=== PATIENT | female | born 1950 | race Caucasian/White ===

== ENCOUNTER 2016-08-12 14:33 | Emergency (ER) | payer MEDICARE, OTHER ==
[2016-08-12 15:27] VITALS: RESP 16
--- NOTE | 2016-08-12 16:09 | ED ---
Recheck HPI - General Chief Complaint: Recheck/Abnormal Lab/Rx Stated Complaint: High BP-sent by Source: patient Mode of arrival: ambulatory Limitations: no limitations - History of Present Illness Initial Comments: Patient is a pleasant 65-year-old female who presents for evaluation for high blood pressure. Past medical history as below. Patient was sent in by her primary care physician who wanted her to be evaluated for her high blood pressure. Has a known history of hypertension. Has been well-controlled in the past of 5 mg of enalapril. Has been compliant with this. The patient stated last week or 2 she's been having mild headaches. Was seen by her neurologist and cleared. Went back to her PCP for evaluation for hypertension. At home her normal blood pressures in the 160s systolic. She's been in the 180s to 200s systolic over the last few days. She doubled up on her enalapril to 10 mg daily which she has been compliant with. Today in the office she had a very elevated blood pressure. Recommended that she come in for evaluation. As of right now, the patient states that she has no complaints. She denies fever, chills, headaches, URI symptoms, lightheaded or dizziness, confusion, changes in behavior, chest pain, shortness breath, cough, nausea, vomiting, diarrhea, pain or burning with urination. - Related Data Home Medications Medication Instructions Recorded Confirmed Methadone [Dolophine] 10 mg PO DAILY 08/23/14 08/12/16 Sertraline [Zoloft] 100 mg PO DAILY 08/23/14 08/12/16 Cyclobenzaprine [Flexeril] 10 mg PO TID PRN 08/12/16 08/12/16 Flaxseed Oil [[place]-3 Flaxseed Oil] 1,000 mg PO DAILY 08/12/16 08/12/16 Lisinopril [Zestril] 10 mg PO DAILY 08/12/16 08/12/16 Melatonin (Unknown Dose) 1 tab PO HS 08/12/16 08/12/16 Omeprazole [PriLOSEC] 10 mg PO DAILY 08/12/16 08/12/16 SUMAtriptan SUCCINATE [Imitrex] 25 mg PO DAILY PRN 08/12/16 08/12/16 Allergies Allergy/AdvReac Type Severity Reaction Status Date / Time meperidine HCl [From Demerol] Allergy Rash/Hives Verified 08/12/16 14:57 Penicillins Allergy Rash/Hives Verified 08/12/16 14:57 Sulfa (Sulfonamide Allergy Rash/Hives Verified 08/12/16 14:57 Antibiotics) Review of Systems ROS Statement: Those systems with pertinent positive or pertinent negative responses have been documented in the HPI. ROS Other: All systems not noted in ROS Statement are negative. Past Medical History Past Medical History: Hypertension, Thyroid Disorder Additional Past Medical History / Comment(s): ANEMIA History of Any Multi-Drug Resistant Organisms: None Reported Past Surgical History: Hysterectomy Additional Past Surgical History / Comment(s): LEFT KNEE ARTHROSCOPIC Past Anesthesia/Blood Transfusion Reactions: No Reported Reaction Past Psychological History: No Psychological Hx Reported Smoking Status: Never smoker Past Alcohol Use History: Rare Past Drug Use History: None Reported - Past Family History Mother Family Medical History: No Reported History General Exam Limitations: no limitations General appearance: alert, in no apparent distress, other (Well-appearing and in no acute distress) Head exam: Present: atraumatic, normocephalic, normal inspection Eye exam: Present: normal appearance, PERRL, EOMI. Absent: scleral icterus, conjunctival injection, nystagmus, periorbital swelling Pupils: Present: normal accommodation. Absent: irregular, unequal ENT exam: Present: normal exam, mucous membranes moist Neck exam: Present: normal inspection. Absent: tenderness, meningismus, lymphadenopathy Respiratory exam: Present: normal lung sounds bilaterally. Absent: respiratory distress, wheezes, rales, rhonchi, stridor Cardiovascular Exam: Present: regular rate, normal rhythm, normal heart sounds. Absent: systolic murmur, diastolic murmur, rubs, gallop, clicks GI/Abdominal exam: Present: soft, normal bowel sounds, other (No abdominal bruits). Absent: distended, tenderness, guarding, rebound, rigid Extremities exam: Present: normal inspection, full ROM, normal capillary refill. Absent: tenderness, pedal edema, joint swelling, calf tenderness Back exam: Present: normal inspection Neurological exam: Present: alert, oriented X3, CN II-XII intact, other ( Cranial nerves II through XII grossly intact without focal neurological deficits. Alert and oriented 4. Moves all 4 extremities. No ataxia of the upper or lower extremities. Gait intact. 5-5 strength of the upper or lower extremities. L4 and S1 reflexes intact.) Psychiatric exam: Present: normal affect, normal mood Skin exam: Present: warm, dry, intact, normal color. Absent: rash Course Vital Signs 08/12/16 08/12/16 08/12/16 14:37 15:27 15:59 Temperature 97.6 F Pulse Rate 83 70 70 Respiratory 18 16 16 Rate Blood Pressure 211/98 199/104 187/98 O2 Sat by Pulse 98 96 96 Oximetry 08/12/16 08/12/16 16:35 16:51 Temperature Pulse Rate 67 71 Respiratory 16 16 Rate Blood Pressure 207/86 193/88 O2 Sat by Pulse 97 Oximetry Medical Decision Making - Medical Decision Making Patient presents for evaluation for asymptomatic hypertension. Initial blood pressure in the 200s systolic. She also just rode her bike here though. Will place in a dark room and recheck blood pressure and 30 minutes. 1600: Spoke with the patient's nurse practitioner. The nurse practitioner states that the patient's been having severe headaches over the past 1-2 weeks. Discussed that the patient is neurologically intact and not having a headache at this point. There is practitioner is concerned that the patient may not be telling the most accurate story. Repeat blood pressure 180 systolic. Closer to her baseline. Reevaluated the patient and she remains a symptomatically. at bedside. I discussed conversation I had with her nurse practitioner. Offered CT head without contrast. We'll order. EKG ordered as well. 1630: Reviewed EKG. Normal sinus rhythm at 68. Right bundle branch block. Left anterior fascicular block. ID [id number]. QRS 128. QTc 499. No STEMI. I reviewed the EKG that was performed on 06/09/2015. It is similar in appearance. No acute change. Awaiting CT. 1710: Reviewed CT imaging. No acute process. I reevaluated the patient's blood pressure and it is 176/82. She remains asymptomatic. Stable for discharge home. Discussed specific signs and symptoms of hypertensive emergency and when to return to the emergency department for further evaluation. She voiced understanding. She will continue to take 10 mg of enalapril. This was also confirmed by the nurse practitioner at her primary care physician's office. Discussed further signs and symptoms on when to return to emergency department for further evaluation. She is comfortable with discharge home and will follow-up with her primary care physician for blood pressure recheck. Disposition Clinical Impression: Asymptomatic hypertension Disposition: HOME SELF-CARE Condition: Good Instructions: Hypertensive Crisis (ED) Referrals: Cody Aleman MD [Primary Care Provider] - 1-2 days
--- NOTE | 2016-08-12 16:58 | CT ---
EXAMINATION TYPE: CT brain wo con DATE OF EXAM: 08/12/2016 4:55 PM COMPARISON: NONE INDICATION: Elevated blood pressure DLP: 1029.9 mGycm, Automated exposure control for dose reduction was used. CONTRAST: None CT of the brain is performed utilizing 3 mm thick sections through the posterior fossa and 3 mm thick sections through the remaining calvarium. Study is performed within 24 hours of arrival to the hosp [facility]. No abnormal hyperdensity is present to suggest an acute intracranial hemorrhage. No mass lesion is evident. No acute infarcts are evident. Periventricular white matter hypodensity is present, most likely on th e basis of chronic white matter ischemic changes. Ventricles and sulci are appropriate for the patient age. Paranasal sinuses and mastoid air cells within the [id number] are clear. There is septal deviation. IMPRESSIONS: 1. Chronic appearing white matter ischemic changes. No acute intracranial process evident.
[2016-08-12 17:13] VITALS: BP 176/82; PULSE 72; TEMP 98.1
== END 2016-08-12 17:20 | disposition home or self-care (01) ==
LOC: EC 14:33
DX: I10 Essential (primary) hypertension (principal); R51 Headache; I45.2 Bifascicular block; Z79.899 Other long term (current) drug therapy; Z88.0 Allergy status to penicillin; Z88.5 Allergy status to narcotic agent
CPT/HCPCS: 70450; 93005; 99284

== ENCOUNTER → 2017-05-03 | Outpatient (CLI) | payer MEDICARE, OTHER ==
--- NOTE | 2017-05-06 07:18 | MM ---
Reason for exam: screening (asymptomatic). Last mammogram was performed 3 years ago. History: Patient is postmenopausal. Physical Findings: A clinical breast exam by your physician is recommended on an annual basis and results should be correlated with mammographic findings. MG 3D Screening Mammo W/Cad Bilateral CC and MLO view(s) were taken. Prior study comparison: April 29, 2014, bilateral MG screening mammo w CAD. April 06, 2012, bilateral digital screening mammo w/CAD. The breast tissue is heterogeneously dense. This may lower the sensitivity of mammography. No suspicious calcifications. New nodule upper outer left breast 8cm from nipple. ASSESSMENT: Incomplete: need additional imaging evaluation, BI-RAD 0 RECOMMENDATION: Special view mammogram and ultrasound of the left breast. [facility] will attempt to contact patient to return for supplemental views and ultrasound.
== END | disposition home or self-care (01) ==
LOC: RADMAMWWP 08:34
PROVIDERS: ATTEND Obstetrics & Gynecology
DX: Z12.31 Encounter for screening mammogram for malignant neoplasm of breast (principal)
CPT/HCPCS: 77063; 77067

== ENCOUNTER → 2017-05-10 | Outpatient (CLI) | payer MEDICARE, OTHER ==
--- NOTE | 2017-05-10 09:53 | USB ---
Reason for exam: additional evaluation requested from abnormal screening. History: Patient is postmenopausal. US Breast Workup Limited LT Left breast ultrasound demonstrates no cystic or solid lesion seen. These results were verbally communicated with the patient and result sheet given to the patient on 05/10/17. ASSESSMENT: Probably benign, BI-RAD 3 RECOMMENDATION: Follow-up diagnostic mammogram of the left breast in 6 months.
--- NOTE | 2017-05-10 09:53 | MM ---
Reason for exam: additional evaluation requested from abnormal screening. Last mammogram was performed less than 1 month ago. History: Patient is postmenopausal. Physical Findings: Nurse did not find any significant physical abnormalities on exam. MG 3D Work Up W/Cad LT Spot compression CC, spot compression MLO, and LM view(s) were taken of the left breast. Prior study comparison: May 03, 2017, bilateral MG 3d screening mammo w/cad. April 29, 2014, bilateral MG screening mammo w CAD. Nodularity upper outer quadrant left breast persists. Ultrasound is recommended. These results were verbally communicated with the patient and result sheet given to the patient on 05/10/17. ASSESSMENT: Incomplete: need additional imaging evaluation, BI-RAD 0 RECOMMENDATION: Ultrasound of the left breast.
== END | disposition home or self-care (01) ==
LOC: RADMAMWWP 08:22
PROVIDERS: ATTEND Obstetrics & Gynecology
DX: R92.8 Other abnormal and inconclusive findings on diagnostic imaging of breast (principal)
CPT/HCPCS: 77065; 76642; G0279

== ENCOUNTER → 2018-04-24 | Outpatient (CLI) | payer MEDICARE, OTHER ==
--- NOTE | 2018-04-25 15:35 | MM ---
Reason for exam: additional evaluation requested from prior study. Last mammogram was performed 11 months ago. History: Patient is postmenopausal. Indicated problem(s): other indicated problem in the right breast. Physical Findings: Nurse did not find any significant physical abnormalities on exam. MG 3D Diag Mammo W/Cad LT CC and MLO view(s) were taken of the left breast. Prior study comparison: May 10, 2017, left breast MG 3d work up w/cad LT. May 03, 2017, bilateral MG 3d screening mammo w/cad. There are scattered fibroglandular densities. No new dominant lesion. Asymmetric breast tissue left upper outer quadrant stable. These results were verbally communicated with the patient and result sheet given to the patient on 04/24/18 ASSESSMENT: Negative, BI-RAD 1 RECOMMENDATION: Return to routine screening mammogram schedule for both breasts.
== END | disposition home or self-care (01) ==
LOC: RADMAMWWP 09:21
PROVIDERS: ATTEND Obstetrics & Gynecology
DX: R92.8 Other abnormal and inconclusive findings on diagnostic imaging of breast (principal)
CPT/HCPCS: 77065; G0279; 77061

== ENCOUNTER → 2018-06-05 | Outpatient (CLI) | payer MEDICARE, OTHER ==
[~2018-06-05] MED LIST: REGADENOSON 0.4 MG/5 ML SYRINGE IV ONE
--- NOTE | 2018-06-05 13:29 | EST ---
EXERCISE STRESS DATE OF SERVICE: 06/05/2018 AGE: 67 SEX: Female HT: 5'9" WT: 185 pounds PROTOCOL: Lexiscan Cardiolite STAGE: DURATION OF EXERCISE: HEART RATE REST: 77 BLOOD PRESSURE REST: 137/84 MAXIMUM HEART RATE ACHIEVED: 89 MAXIMUM BLOOD PRESSURE: 140/76 85% MPHR: 100% MPHR: METS: INDICATIONS: Chest pain. CLINICAL INFORMATION: STRESS DATA: Pretesting physical examination showed a heart rate of 77, pressure is 137/84 mmHg. Baseline EKG showed sinus mechanism with left anterior fascicular block. The 0.4 mg of Lexiscan given over 15 seconds per protocol. The max heart rate was 89 beats per minute. Maximum pressure was 140/76 mmHg. Clinically the patient did not have any symptoms of chest pain or discomfort and the EKG did not show any significant ST or T-wave abnormalities concerning for ischemia. CONCLUSION: 1. Nondiagnostic electrocardiogram stress testing in response to Lexiscan. 2. Please follow up on the Cardiolite portion on separate report from radiology department. MMODL / IJN: [id number] /
--- NOTE | 2018-06-05 14:53 | NM ---
EXAMINATION TYPE: NM stress lexiscan cardiolite DATE OF EXAM: 06/05/2018 COMPARISON: NONE HISTORY: 67-year-old female preoperative assessment, abnormal EKG. Patient with hypertension and 4 - 5 pack-year history of smoking, quit 40 years ago. TECHNIQUE: After the intravenous administration of 10.08 mCi Tc 99m Sestamibi - Cardiolite resting S PECT images acquired 45 minutes post injection. The patient received 0.4mg Lexiscan, 26.7 mCi Tc 99m Sestamibi - Stress images obtained [address] injection FINDINGS: Review of stress and rest SPECT images demonstrates fixed perfusion abnormality along the mid to apic al inferior and inferolateral wall. No distinct reversibility is seen. Gated analysis shows normal wa ll motion with an estimated left ventricular ejection fraction of 62 %. TID calculate pina 1.08, with in normal limits. IMPRESSION: Attenuation artifact versus old infarct mid to apical inferior and inferolateral wall. Clinically cor relate. No suspicious reversibility identified.
== END ==
LOC: RADNMMAIN 07:51
PROVIDERS: ATTEND Family Medicine
DX: R94.31 Abnormal electrocardiogram [ECG] [EKG] (principal)
CPT/HCPCS: 93017; 78452; A9500; J2785

== ENCOUNTER → 2020-02-26 | Outpatient (CLI) | payer MEDICARE ==
[2020-02-26 13:43] LABS: HCT 36.3 % (34.0-46.0); MCH 29.3 pg (25.0-35.0); MCV 88.9 fL (80.0-100.0); Mean Platelet Volume 8.1; Platelet Count 401 k/uL (150-450); RBC 4.08 m/uL (3.80-5.40); RDW 13.9 % (11.5-15.5); WBC 11.8 k/uL (3.8-10.6)
== END | disposition home or self-care (01) ==
LOC: LABWHC1 11:41
PROVIDERS: ATTEND Orthopaedic Surgery
DX: Z01.818 Encounter for other preprocedural examination (principal); Z01.812 Encounter for preprocedural laboratory examination
CPT/HCPCS: 36415; 85027; 87070

== ENCOUNTER 2020-03-10 09:10 | Inpatient (IN) | payer MEDICARE ==
[2020-03-10] MEDS ORDERED: HYDROcodone/APAP 5-325MG 1 EACH TAB PO STA (10:18)
[2020-03-10 10:26] LABS: Anisocytosis Slight; Hypochromasia Moderate; MCH 28.1 pg (25.0-35.0); MCHC 31.3 g/dL (31.0-37.0); MCV 89.6 fL (80.0-100.0); Platelet Count 509 k/uL (150-450); Poikilocytosis Slight; RBC 1.71 m/uL (3.80-5.40); RDW 16.1 % (11.5-15.5); WBC 10.5 k/uL (3.8-10.6)
[2020-03-10 10:32] LABS: HGB 4.8 gm/dL (11.4-16.0)
[2020-03-10 10:33] LABS: HCT 15.3 % (34.0-46.0)
[2020-03-10 10:40] LABS: Albumin 3.1 g/dL (3.5-5.0); Calcium 8.2 mg/dL (8.4-10.2); Potassium 4.8 mmol/L (3.5-5.1); Total Bilirubin 0.4 mg/dL (0.2-1.3); Total Protein 5.8 g/dL (6.3-8.2)
[2020-03-10 10:44] LABS: INR 1.1 (<1.2); Partial Thromboplastin Time 24.8 sec (22.0-30.0); Prothrombin Time 11.1 sec (9.0-12.0)
[2020-03-10 10:50] LABS: Band Neutrophils % 3 %; Eosinophils # (M) 0.21 k/uL (0-0.7); Lymphocytes # (M) 0.84 k/uL (1.0-4.8); Monocytes # (M) 0.53 k/uL (0-1.0); Neutrophils % (M) 82 %; Nucleated Red Blood Cells 0 /100 WBC (0-0); Total Cells Counted 100
[2020-03-10 10:51] LABS: Polychromasia Present
[2020-03-10] MEDS ORDERED: MORPHINE SULFATE 4 MG/ML SYRINGE IVP STA (11:20)
[2020-03-10] MEDS: SODIUM CHLORIDE 0.9% 1,000 ML IV SCH (12:08)
--- NOTE | 2020-03-10 12:31 | ED ---
Recheck HPI - General Chief Complaint: Recheck/Abnormal Lab/Rx Stated Complaint: PCP request transfusion Time Seen by Provider: 03/10/20 09:36 Source: patient Mode of arrival: wheelchair Limitations: no limitations - History of Present Illness Initial Comments: 69 female presenting for cc of low HgB--patient states that she recently started a new ferritin and has chronic anemia secondary to iron deficiency B believe. Patient states she's been following a practicing md anesthesiologist oncologist here at [facility]. Patient states they cannot figure out why her hemoglobin drops at times. She states it has been as low as 4 in the past and she has required suero sfusions. Patient states usually is able to maintain her hemoglobin with ferritin. She denies any black tarry stools abdominal plain bloody stools. She denies chest pain and does endorse dyspnea on exertion cold intolerance and feels like her heart rate is increased. Patient states he feels like this when her hemoglobin is low typically and had it checked outpatient she states she was called with a critical of 4.5 and told to come to ER. Patient states she did recently have a left knee replacement, denies any chest pain, pain with deep inspiration or increasing swelling/pain. Remaining ROS (-) - Related Data Home Medications Medication Instructions Recorded Confirmed Sertraline [Zoloft] 150 mg PO DAILY 08/23/14 03/10/20 lisinopriL [Zestril] 10 mg PO DAILY 08/12/16 03/10/20 Amitriptyline HCl [Elavil] 50 mg PO HS 03/10/20 03/10/20 Cyclobenzaprine [Flexeril] 10 mg PO TID PRN 03/10/20 03/10/20 Levothyroxine Sodium 200 mcg PO DAILY 03/10/20 03/10/20 Sennosides [Senna] 17.2 mg PO HS PRN 03/10/20 03/10/20 amLODIPine [Norvasc] 5 mg PO DAILY 03/10/20 03/10/20 rOPINIRole HCL [Requip] 1 mg PO TID 03/10/20 03/10/20 Allergies Allergy/AdvReac Type Severity Reaction Status Date / Time meperidine HCl [From Demerol] Allergy Rash/Hives Verified 03/10/20 10:33 Penicillins Allergy Rash/Hives Verified 03/10/20 10:33 Sulfa (Sulfonamide Allergy Rash/Hives Verified 03/10/20 10:33 Antibiotics) Review of Systems ROS Statement: Those systems with pertinent positive or pertinent negative responses have been documented in the HPI. ROS Other: All systems not noted in ROS Statement are negative. Past Medical History Past Medical History: Hypertension, Thyroid Disorder Additional Past Medical History / Comment(s): ANEMIA History of Any Multi-Drug Resistant Organisms: None Reported Past Surgical History: Hysterectomy, Orthopedic Surgery Additional Past Surgical History / Comment(s): LEFT KNEE ARTHROSCOPIC, carpal tunnel, left knee replacement Past Anesthesia/Blood Transfusion Reactions: No Reported Reaction Past Psychological History: No Psychological Hx Reported Smoking Status: Never smoker Past Alcohol Use History: Rare Past Drug Use History: None Reported - Past Family History Mother Family Medical History: No Reported History General Exam - General Exam Comments Initial Comments: General: The patient is awake and alert, in no distress Eye: Pupils are equal, round and reactive to light, extra-ocular movements are intact. No nystagmus. There is normal conjunctiva bilaterally. No signs of icterus. Ears, nose, mouth and throat: There are moist mucous membranes and no oral lesions. Neck: The neck is supple, there is no tenderness or JVD. Cardiovascular: There is a regular rate and rhythm. No murmur, rub or gallop is appreciated. Respiratory: Lungs are clear to auscultation, respirations are non-labored, breath sounds are equal. No wheezes, stridor, rales, or rhonchi. Gastrointestinal: Soft, non-distended, non-tender abdomen without masses or organomegaly noted. There is no rebound or guarding present. REctal: light brown stool no blood or tarry dark stools. Musculoskeletal: Normal ROM, no tenderness. Strength 5/5. Sensation intact. Pulses equal bilaterally 2+. Neurological: A&O x 3. CN II-XII intact, There are no obvious motor or sensory deficits. Coordination appears grossly intact. Speech is normal. Skin: Skin is warm and dry and no rashes or lesions are noted. Some pallor noted. Psychiatric: Cooperative, appropriate mood & affect, normal judgment. Limitations: no limitations Course Vital Signs 03/10/20 03/10/20 03/10/20 09:22 11:26 12:03 Temperature 97.8 F 98.4 F Pulse Rate 64 110 H 98 Respiratory 18 18 18 Rate Blood Pressure 100/58 112/49 113/73 O2 Sat by Pulse 97 98 98 Oximetry 03/10/20 12:13 Temperature 97.7 F Pulse Rate 100 Respiratory 18 Rate Blood Pressure 122/46 O2 Sat by Pulse 95 Oximetry Medical Decision Making - Medical Decision Making 69-year-old female presenting for transfusion low hemoglobin outpatient. No findings a physical examination suggestive GI bleed patient states she has had a low hemoglobin that was chalked up to low ferritin/iron. Patient endorses symptoms consistent wtih anemia or hgb of 4.8. Pt transfused 2 untis. will be admitted on telemetry with hematology on consultation. dr zhao agreeable to care plan. - Lab Data Result diagrams: 03/10/20 10:13 03/10/20 10:13 Lab Results 03/10/20 03/10/20 03/10/20 Range/Units 10:00 10:10 10:13 WBC 10.5 (3.8-10.6) k/uL RBC 1.71 L (3.80-5.40) m/uL Hgb 4.8 L* D (11.4-16.0) gm/dL Hct 15.3 L* (34.0-46.0) % MCV 89.6 (80.0-100.0) fL MCH 28.1 (25.0-35.0) pg MCHC 31.3 (31.0-37.0) g/dL RDW 16.1 H (11.5-15.5) % Plt Count 509 H (150-450) k/uL MPV 8.0 Neutrophils % (Manual) 82 % Band Neuts % (Manual) 3 % Lymphocytes % (Manual) 8 % Monocytes % (Manual) 5 % Eosinophils % (Manual) 2 % Neutrophils # (Manual) 8.90 H (1.3-7.7) k/uL Lymphocytes # (Manual) 0.84 L (1.0-4.8) k/uL Monocytes # (Manual) 0.53 (0-1.0) k/uL Eosinophils # (Manual) 0.21 (0-0.7) k/uL Nucleated RBCs 0 (0-0) /100 WBC Manual Slide Review Performed Polychromasia Present Hypochromasia Moderate Poikilocytosis Slight Anisocytosis Slight PT (9.0-12.0) sec INR (<1.2) APTT (22.0-30.0) sec Sodium (137-145) mmol/L Potassium (3.5-5.1) mmol/L Chloride (98-107) mmol/L Carbon Dioxide (22-30) mmol/L Anion Gap mmol/L BUN (7-17) mg/dL Creatinine (0.52-1.04) mg/dL Est GFR (CKD-EPI)AfAm (>60 ml/min/1.73 sqM) Est GFR (CKD-EPI)NonAf (>60 ml/min/1.73 sqM) Glucose (74-99) mg/dL Calcium (8.4-10.2) mg/dL Total Bilirubin (0.2-1.3) mg/dL AST (14-36) U/L ALT (4-34) U/L Alkaline Phosphatase (38-126) U/L Troponin I (0.000-0.034) ng/mL Total Protein (6.3-8.2) g/dL Albumin (3.5-5.0) g/dL Stool Occult Blood (Negative) Blood Type A Positive Blood Type Confirm A Positive Blood Type Recheck No Previous Record Bld Type Recheck Status CABO Indicated Antibody Screen NEGATIVE Crossmatch See Detail Spec Expiration Date 03/13/2020 - 230903/10/20 03/10/20 03/10/20 Range/Units 10:13 10:13 10:13 WBC (3.8-10.6) k/uL RBC (3.80-5.40) m/uL Hgb (11.4-16.0) gm/dL Hct (34.0-46.0) % MCV (80.0-100.0) fL MCH (25.0-35.0) pg MCHC (31.0-37.0) g/dL RDW (11.5-15.5) % Plt Count (150-450) k/uL MPV Neutrophils % (Manual) % Band Neuts % (Manual) % Lymphocytes % (Manual) % Monocytes % (Manual) % Eosinophils % (Manual) % Neutrophils # (Manual) (1.3-7.7) k/uL Lymphocytes # (Manual) (1.0-4.8) k/uL Monocytes # (Manual) (0-1.0) k/uL Eosinophils # (Manual) (0-0.7) k/uL Nucleated RBCs (0-0) /100 WBC Manual Slide Review Polychromasia Hypochromasia Poikilocytosis Anisocytosis PT 11.1 (9.0-12.0) sec INR 1.1 (<1.2) APTT 24.8 (22.0-30.0) sec Sodium 134 L (137-145) mmol/L Potassium 4.8 (3.5-5.1) mmol/L Chloride 103 (98-107) mmol/L Carbon Dioxide 19 L (22-30) mmol/L Anion Gap 12 mmol/L BUN 42 H (7-17) mg/dL Creatinine 0.96 (0.52-1.04) mg/dL Est GFR (CKD-EPI)AfAm 69 (>60 ml/min/1.73 sqM) Est GFR (CKD-EPI)NonAf 60 (>60 ml/min/1.73 sqM) Glucose 229 H (74-99) mg/dL Calcium 8.2 L (8.4-10.2) mg/dL Total Bilirubin 0.4 (0.2-1.3) mg/dL AST 25 (14-36) U/L ALT 17 (4-34) U/L Alkaline Phosphatase 89 (38-126) U/L Troponin I 0.015 (0.000-0.034) ng/mL Total Protein 5.8 L (6.3-8.2) g/dL Albumin 3.1 L (3.5-5.0) g/dL Stool Occult Blood (Negative) Blood Type Blood Type Confirm Blood Type Recheck Bld Type Recheck Status Antibody Screen Crossmatch Spec Expiration Date 03/10/20 Range/Units 10:13 WBC (3.8-10.6) k/uL RBC (3.80-5.40) m/uL Hgb (11.4-16.0) gm/dL Hct (34.0-46.0) % MCV (80.0-100.0) fL MCH (25.0-35.0) pg MCHC (31.0-37.0) g/dL RDW (11.5-15.5) % Plt Count (150-450) k/uL MPV Neutrophils % (Manual) % Band Neuts % (Manual) % Lymphocytes % (Manual) % Monocytes % (Manual) % Eosinophils % (Manual) % Neutrophils # (Manual) (1.3-7.7) k/uL Lymphocytes # (Manual) (1.0-4.8) k/uL Monocytes # (Manual) (0-1.0) k/uL Eosinophils # (Manual) (0-0.7) k/uL Nucleated RBCs (0-0) /100 WBC Manual Slide Review Polychromasia Hypochromasia Poikilocytosis Anisocytosis PT (9.0-12.0) sec INR (<1.2) APTT (22.0-30.0) sec Sodium (137-145) mmol/L Potassium (3.5-5.1) mmol/L Chloride (98-107) mmol/L Carbon Dioxide (22-30) mmol/L Anion Gap mmol/L BUN (7-17) mg/dL Creatinine (0.52-1.04) mg/dL Est GFR (CKD-EPI)AfAm (>60 ml/min/1.73 sqM) Est GFR (CKD-EPI)NonAf (>60 ml/min/1.73 sqM) Glucose (74-99) mg/dL Calcium (8.4-10.2) mg/dL Total Bilirubin (0.2-1.3) mg/dL AST (14-36) U/L ALT (4-34) U/L Alkaline Phosphatase (38-126) U/L Troponin I (0.000-0.034) ng/mL Total Protein (6.3-8.2) g/dL Albumin (3.5-5.0) g/dL Stool Occult Blood Positive H (Negative) Blood Type Blood Type Confirm Blood Type Recheck Bld Type Recheck Status Antibody Screen Crossmatch Spec Expiration Date Disposition Clinical Impression: Anemia, Hemoglobin low, Symptomatic anemia Disposition: ADMITTED IP TO THIS [facility] Condition: Stable Is patient prescribed a controlled substance at d/c from ED?: No Referrals: Cody Aleman MD [Primary Care Provider] - 1-2 days Time of Disposition: 12:39 Decision to Admit Reason: Admit from EC Decision Date: 03/10/20 Decision Time: 12:39
[2020-03-10] MEDS ORDERED: NALOXONE 0.4 MG/ML 1 ML VIAL IV PRN (12:36)
[2020-03-10] MEDS ORDERED: PANTOPRAZOLE 40 MG/10 ML VIAL IVP STA (12:47)
[2020-03-10] MEDS: MORPHINE SULFATE 4 MG/ML SYRINGE IVP PRN ×2 (15:39→21:49)
[2020-03-10 16:04] LABS: Ferritin 50.4 ng/mL (10.0-291.0)
[2020-03-10] MEDS ORDERED: SENNOSIDES 8.6 MG TAB PO PRN (17:43)
[2020-03-10] MEDS: LEVOTHYROXINE 100 MCG TAB PO SCH (20:04)
[2020-03-10] MEDS: AMITRIPTYLINE HCL 50 MG TAB PO SCH (20:04)
[2020-03-11] MEDS: SODIUM CHLORIDE 0.9% 1,000 ML IV SCH ×2 (03:19→19:57)
[2020-03-11] MEDS: LEVOTHYROXINE 100 MCG TAB PO SCH (06:25)
[2020-03-11] MEDS: SERTRALINE 100 MG TAB PO SCH (07:56)
[2020-03-11] MEDS: lisinopriL 10 MG TAB PO SCH (07:56)
[2020-03-11] MEDS: amLODIPine 5 MG TAB PO SCH (07:56)
[2020-03-11] MEDS: MORPHINE SULFATE 4 MG/ML SYRINGE IVP PRN ×3 (08:38→22:37)
[2020-03-11 11:05] LABS: Albumin 2.6 g/dL (3.5-5.0); Calcium 7.5 mg/dL (8.4-10.2); Potassium 4.3 mmol/L (3.5-5.1); Total Bilirubin 0.5 mg/dL (0.2-1.3); Total Protein 5.3 g/dL (6.3-8.2)
--- NOTE | 2020-03-11 11:20 | P.GSCN ---
<Ana Parks - Last Filed: 03/11/20 11:08> History of Present Illness Consult date: 03/11/20 History of present illness: CHIEF COMPLAINT: Anemia HISTORY OF PRESENT ILLNESS: This is a 69-year-old female with a known past history of chronic anemia with iron deficiency and receives iron transfusions regularly through Dr. Batres's office. Also has a history of a gastric ulcer about 5 years ago. She had a recent left total knee arthroplasty with Dr. Champion on 02/28/2020. Her preop hemoglobin on 02/26/2020 was 12.0. She presented to the emergency room today after being informed that her hemoglobin was critically low at 4.5 and needed to come into the ER. Patient reports being more short of breath, dizzy and feeling her heart race. She denies any abdominal pain. She denies any black tarry stools. Denies any bright red blood in the stools. She denies any nausea or vomiting, fever chills or sweats. In the emergency room she was found to have a hemoglobin of 4.8 and did receive 2 units of blood. Her repeat hemoglobin is pending. Her last EGD and colonoscopy were in August [address] Leiva and had shown moderate hiatal hernia and gastritis and duodenitis. Patient also reports having a capsule endoscopy. Years ago and per patient it was reported normal. Patient denies regular NSAID use. She does report taking Aleve occasionally but that had been prior to her knee surgery. She is on a full aspirin daily after her knee surgery. Other past medical history includes hysterectomy, hypertension and hypothyroidism. PAST MEDICAL HISTORY: See list. PAST SURGICAL HISTORY: See list. MEDICATIONS: See list. ALLERGIES: See list. SOCIAL HISTORY: No illicit drug use. REVIEW OF SYSTEMS: CONSTITUTIONAL: Denies fever or chills. HEENT: Denies blurred vision, vision changes, or eye pain. Denies hemoptysis CARDIOVASCULAR: Denies chest pain or pressure. RESPIRATORY: No shortness of breath. GASTROINTESTINAL: See HPI for pertinent findings HEMATOLOGIC: Denies bleeding disorders. GENITOURINARY: Denies any blood in urine or increased urinary frequency. SKIN: Denies pruitis. Denies rash. PHYSICAL EXAM: VITAL SIGNS: Reviewed GENERAL: Well-developed in no acute distress. HEENT: No sclera icterus. Extraocular movements grossly intact. Moist buccal mucosa. Head is atraumatic, normocephalic. No nasal drainage. ABDOMEN: Soft. Nontender. Nondistended. NEUROLOGIC: Alert and oriented. Cranial nerves II through XII grossly intact. LABORATORY DATA: WBC 10.5 hemoglobin 4.8 hematocrit 15.3 MCV 89.6 platelets 509 Liver enzymes normal fecal occult blood positive IMAGING: ASSESSMENT: 1. Microcytic anemia with hemoglobin of 4.8 on admission and stool for occult blood positive 2. Prior history of gastric ulcer 3. History of chronic anemia with iron deficiency and requires iron transfusions 4. Left total knee arthroplasty completed on 02/28/2020 PLAN: -Start Protonix 40 mg IV daily -Continue IV fluids -Continue to monitor hemoglobin -Further recommendations forthcoming per surgeon Thank you for this consultation Physician Assistant Foreman note has been reviewed by physician. Signing provider agrees with the documented findings, assessment, and plan of care. Past Medical History Past Medical History: Hypertension, Thyroid Disorder Additional Past Medical History / Comment(s): chronic ANEMIA- pt gets iron trans. every 8-12 weeks for over 12 years. Pt has a hx of a sm ulcer History of Any Multi-Drug Resistant Organisms: None Reported Past Surgical History: Hysterectomy, Joint Replacement, Orthopedic Surgery Additional Past Surgical History / Comment(s): LEFT KNEE ARTHROSCOPIC, carpal tunnel, left knee replacement, laser eye surgery Past Anesthesia/Blood Transfusion Reactions: No Reported Reaction Past Psychological History: No Psychological Hx Reported Smoking Status: Never smoker Past Alcohol Use History: Rare Past Drug Use History: None Reported - Past Family History Mother Family Medical History: No Reported History Medications and Allergies Home Medications Medication Instructions Recorded Confirmed Type Sertraline [Zoloft] 150 mg PO DAILY 08/23/14 03/10/20 History lisinopriL [Zestril] 10 mg PO DAILY 08/12/16 03/10/20 History Amitriptyline HCl [Elavil] 50 mg PO HS 03/10/20 03/10/20 History Cyclobenzaprine [Flexeril] 10 mg PO TID PRN 03/10/20 03/10/20 History Levothyroxine Sodium 200 mcg PO DAILY 03/10/20 03/10/20 History Sennosides [Senna] 17.2 mg PO HS PRN 03/10/20 03/10/20 History amLODIPine [Norvasc] 5 mg PO DAILY 03/10/20 03/10/20 History rOPINIRole HCL [Requip] 1 mg PO TID 03/10/20 03/10/20 History Allergies Allergy/AdvReac Type Severity Reaction Status Date / Time meperidine HCl [From Demerol] Allergy Rash/Hives Verified 03/10/20 10:33 Penicillins Allergy Rash/Hives Verified 03/10/20 10:33 Sulfa (Sulfonamide Allergy Rash/Hives Verified 03/10/20 10:33 Antibiotics) Surgical - Exam Vital Signs Temp Pulse Resp BP Pulse Ox 97.8 F 64 18 100/58 97 03/10/20 09:22 03/10/20 09:22 03/10/20 09:22 03/10/20 09:22 03/10/20 09:22 Results - Labs 03/10/20 10:13 03/11/20 09:43 Abnormal Lab Results - Last 24 Hours (Table) 03/10/20 03/10/20 03/11/20 Range/Units 10:10 10:13 09:43 Sodium 133 L (137-145) mmol/L Carbon Dioxide 18 L (22-30) mmol/L BUN 34 H (7-17) mg/dL Glucose 161 H (74-99) mg/dL Calcium 7.5 L (8.4-10.2) mg/dL Total Protein 5.3 L (6.3-8.2) g/dL Albumin 2.6 L (3.5-5.0) g/dL Stool Occult Blood Positive H (Negative) Crossmatch See Detail Diabetes panel 03/11/20 Range/Units 09:43 Sodium 133 L (137-145) mmol/L Potassium 4.3 (3.5-5.1) mmol/L Chloride 106 (98-107) mmol/L Carbon Dioxide 18 L (22-30) mmol/L BUN 34 H (7-17) mg/dL Creatinine 0.87 (0.52-1.04) mg/dL Glucose 161 H (74-99) mg/dL Calcium 7.5 L (8.4-10.2) mg/dL AST 24 (14-36) U/L ALT 14 (4-34) U/L Alkaline Phosphatase 78 (38-126) U/L Total Protein 5.3 L (6.3-8.2) g/dL Albumin 2.6 L (3.5-5.0) g/dL Calcium panel 03/11/20 Range/Units 09:43 Calcium 7.5 L (8.4-10.2) mg/dL Albumin 2.6 L (3.5-5.0) g/dL Pituitary panel 03/11/20 Range/Units 09:43 Sodium 133 L (137-145) mmol/L Potassium 4.3 (3.5-5.1) mmol/L Chloride 106 (98-107) mmol/L Carbon Dioxide 18 L (22-30) mmol/L BUN 34 H (7-17) mg/dL Creatinine 0.87 (0.52-1.04) mg/dL Glucose 161 H (74-99) mg/dL Calcium 7.5 L (8.4-10.2) mg/dL Adrenal panel 03/11/20 Range/Units 09:43 Sodium 133 L (137-145) mmol/L Potassium 4.3 (3.5-5.1) mmol/L Chloride 106 (98-107) mmol/L Carbon Dioxide 18 L (22-30) mmol/L BUN 34 H (7-17) mg/dL Creatinine 0.87 (0.52-1.04) mg/dL Glucose 161 H (74-99) mg/dL Calcium 7.5 L (8.4-10.2) mg/dL Total Bilirubin 0.5 (0.2-1.3) mg/dL AST 24 (14-36) U/L ALT 14 (4-34) U/L Alkaline Phosphatase 78 (38-126) U/L Total Protein 5.3 L (6.3-8.2) g/dL Albumin 2.6 L (3.5-5.0) g/dL <William Henry - Last Filed: 03/11/20 11:52> History of Present Illness History of present illness: As above. Patient with significant anemia which is acute on chronic. Guaiac positive stools suggest GI source to a certain degree. Options of upper endoscopy tomorrow versus as an outpatient reviewed. She would prefer to have this performed as an outpatient is not unreasonable. I will have her scheduled in the next 1-2 weeks. Discharge home on antiacid therapy for possible peptic ulcer disease. We'll reevaluate tomorrow. Surgical - Exam Vital Signs Temp Pulse Resp BP Pulse Ox 97.8 F 64 18 100/58 97 03/10/20 09:22 03/10/20 09:22 03/10/20 09:22 03/10/20 09:22 03/10/20 09:22 Results - Labs 03/11/20 09:43 03/11/20 09:43 Abnormal Lab Results - Last 24 Hours (Table) 03/10/20 03/10/20 03/11/20 Range/Units 10:10 10:13 09:43 WBC 11.0 H (3.8-10.6) k/uL RBC 2.04 L (3.80-5.40) m/uL Hgb 5.8 L* (11.4-16.0) gm/dL Hct 18.2 L* (34.0-46.0) % Sodium (137-145) mmol/L Carbon Dioxide (22-30) mmol/L BUN (7-17) mg/dL Glucose (74-99) mg/dL Calcium (8.4-10.2) mg/dL Total Protein (6.3-8.2) g/dL Albumin (3.5-5.0) g/dL Stool Occult Blood Positive H (Negative) Crossmatch See Detail 03/11/20 Range/Units 09:43 WBC (3.8-10.6) k/uL RBC (3.80-5.40) m/uL Hgb (11.4-16.0) gm/dL Hct (34.0-46.0) % Sodium 133 L (137-145) mmol/L Carbon Dioxide 18 L (22-30) mmol/L BUN 34 H (7-17) mg/dL Glucose 161 H (74-99) mg/dL Calcium 7.5 L (8.4-10.2) mg/dL Total Protein 5.3 L (6.3-8.2) g/dL Albumin 2.6 L (3.5-5.0) g/dL Stool Occult Blood (Negative) Crossmatch Diabetes panel 03/11/20 Range/Units 09:43 Sodium 133 L (137-145) mmol/L Potassium 4.3 (3.5-5.1) mmol/L Chloride 106 (98-107) mmol/L Carbon Dioxide 18 L (22-30) mmol/L BUN 34 H (7-17) mg/dL Creatinine 0.87 (0.52-1.04) mg/dL Glucose 161 H (74-99) mg/dL Calcium 7.5 L (8.4-10.2) mg/dL AST 24 (14-36) U/L ALT 14 (4-34) U/L Alkaline Phosphatase 78 (38-126) U/L Total Protein 5.3 L (6.3-8.2) g/dL Albumin 2.6 L (3.5-5.0) g/dL Calcium panel 03/11/20 Range/Units 09:43 Calcium 7.5 L (8.4-10.2) mg/dL Albumin 2.6 L (3.5-5.0) g/dL Pituitary panel 03/11/20 Range/Units 09:43 Sodium 133 L (137-145) mmol/L Potassium 4.3 (3.5-5.1) mmol/L Chloride 106 (98-107) mmol/L Carbon Dioxide 18 L (22-30) mmol/L BUN 34 H (7-17) mg/dL Creatinine 0.87 (0.52-1.04) mg/dL Glucose 161 H (74-99) mg/dL Calcium 7.5 L (8.4-10.2) mg/dL Adrenal panel 03/11/20 Range/Units 09:43 Sodium 133 L (137-145) mmol/L Potassium 4.3 (3.5-5.1) mmol/L Chloride 106 (98-107) mmol/L Carbon Dioxide 18 L (22-30) mmol/L BUN 34 H (7-17) mg/dL Creatinine 0.87 (0.52-1.04) mg/dL Glucose 161 H (74-99) mg/dL Calcium 7.5 L (8.4-10.2) mg/dL Total Bilirubin 0.5 (0.2-1.3) mg/dL AST 24 (14-36) U/L ALT 14 (4-34) U/L Alkaline Phosphatase 78 (38-126) U/L Total Protein 5.3 L (6.3-8.2) g/dL Albumin 2.6 L (3.5-5.0) g/dL
[2020-03-11 11:26] LABS: Hypochromasia Moderate; MCH 28.4 pg (25.0-35.0); MCHC 31.8 g/dL (31.0-37.0); MCV 89.2 fL (80.0-100.0); Mean Platelet Volume 7.8; Platelet Count 393 k/uL (150-450); Poikilocytosis Moderate; RBC 2.04 m/uL (3.80-5.40); RDW 15.4 % (11.5-15.5)
[2020-03-11 11:28] LABS: HGB 5.8 gm/dL (11.4-16.0)
[2020-03-11 11:29] LABS: HCT 18.2 % (34.0-46.0)
[2020-03-11 12:50] LABS: Band Neutrophils % 1 %; Eosinophils # (M) 0.33 k/uL (0-0.7); Metamyelocytes # (M) 0.11 k/uL (0); Metamyelocytes % 1 %; Monocytes # (M) 0.55 k/uL (0-1.0); Neutrophils % (M) 84 %; Nucleated Red Blood Cells 1 /100 WBC (0-0); Total Cells Counted 200
[2020-03-11 12:51] LABS: Lymphocytes # (M) 0.76 k/uL (1.0-4.8); WBC 10.9 k/uL (3.8-10.6)
[2020-03-11 12:52] LABS: Polychromasia Present
--- NOTE | 2020-03-11 13:18 | P.HPIM ---
History of Present Illness H&P Date: 03/11/20 Chief Complaint: Anemia This is a history of physical and a 69-year-old whitof recurrent anemia. Elucidation of this anemia is unknown however, because transfused 2 units and has not had guaiac positive stool. She is admitted For appropriate transfusion and treatment. She otherwise has an underlying history of Hypertension and hypothyroidism. Review of Systems Constitutional: Reports fatigue Eyes: denies blurred vision, denies pain Ears, nose, mouth and throat: Denies headache, Denies sore throat Respiratory: Denies cough Gastrointestinal: Denies abdominal pain, Denies diarrhea, Denies nausea, Denies vomiting Past Medical History Past Medical History: Hypertension, Thyroid Disorder Additional Past Medical History / Comment(s): chronic ANEMIA- pt gets iron trans. every 8-12 weeks for over 12 years. Pt has a hx of a sm ulcer History of Any Multi-Drug Resistant Organisms: None Reported Past Surgical History: Hysterectomy, Joint Replacement, Orthopedic Surgery Additional Past Surgical History / Comment(s): LEFT KNEE ARTHROSCOPIC, carpal tunnel, left knee replacement, laser eye surgery Past Anesthesia/Blood Transfusion Reactions: No Reported Reaction Past Psychological History: No Psychological Hx Reported Smoking Status: Never smoker Past Alcohol Use History: Rare Past Drug Use History: None Reported - Past Family History Mother Family Medical History: No Reported History Medications and Allergies Home Medications Medication Instructions Recorded Confirmed Type Sertraline [Zoloft] 150 mg PO DAILY 08/23/14 03/10/20 History lisinopriL [Zestril] 10 mg PO DAILY 08/12/16 03/10/20 History Amitriptyline HCl [Elavil] 50 mg PO HS 03/10/20 03/10/20 History Cyclobenzaprine [Flexeril] 10 mg PO TID PRN 03/10/20 03/10/20 History RX: Levothyroxine Sodium 200 mcg PO DAILY 03/10/20 03/10/20 History RX: rOPINIRole HCL [Requip] 1 mg PO TID 03/10/20 03/10/20 History Sennosides [Senna] 17.2 mg PO HS PRN 03/10/20 03/10/20 History amLODIPine [Norvasc] 5 mg PO DAILY 03/10/20 03/10/20 History RX: Omeprazole [PriLOSEC] 20 mg PO AC-BRKT #90 cap 03/11/20 Rx Allergies Allergy/AdvReac Type Severity Reaction Status Date / Time meperidine HCl [From Demerol] Allergy Rash/Hives Verified 03/10/20 10:33 Penicillins Allergy Rash/Hives Verified 03/10/20 10:33 Sulfa (Sulfonamide Allergy Rash/Hives Verified 03/10/20 10:33 Antibiotics) Physical Exam Vitals: Vital Signs Temp Pulse Pulse Resp BP BP Pulse Ox 03/11/20 13:09 81 16 103/61 97 03/11/20 12:00 81 16 103/61 97 03/11/20 08:00 97 16 128/85 97 03/11/20 04:00 97.7 F 91 16 113/57 96 03/11/20 00:00 98.4 F 92 16 110/77 97 03/10/20 22:00 97.9 F 98 16 114/68 03/10/20 20:00 97.9 F 103 H 16 120/59 99 03/10/20 19:12 97.8 F 103 H 16 120/59 03/10/20 18:42 92 16 131/58 03/10/20 18:32 98.6 F 96 98 H 125/68 03/10/20 16:00 95 18 118/69 95 03/10/20 14:09 98.6 F 98 18 140/53 97 03/10/20 13:41 98.6 F 100 18 128/54 99 Intake and Output 03/10/20 03/11/20 03/11/20 22:59 06:59 14:59 Intake Total 310 525 125 Balance 310 525 125 Intake: Intake, IV Titration 525 Amount Sodium Chloride 0.9% 1, 525 000 ml @ 75 mls/hr IV . [id number] [facility] Rx#:[id number] Oral 125 Blood Product 310 Rc As-1 Unit 310 [id number] Other: # Voids 1 Weight 84.4 kg - Constitutional General appearance: no acute distress - EENT Eyes: EOMI - Neck Neck: no lymphadenopathy - Respiratory Respiratory: bilateral: CTA - Cardiovascular Rhythm: regular Heart sounds: normal: S1, S2 Abnormal Heart Sounds: no S3 Gallop - Gastrointestinal General gastrointestinal: soft, no tenderness - Integumentary Integumentary: no cellulitis - Musculoskeletal Musculoskeletal: generalized weakness - Psychiatric Psychiatric: A&O x's 3, no appropriate affect Results CBC & Chem 7: 03/11/20 09:43 03/11/20 09:43 Labs: Abnormal Lab Results - Last 24 Hours (Table) 03/10/20 03/11/20 03/11/20 Range/Units 10:10 09:43 09:43 WBC 10.9 H (3.8-10.6) k/uL RBC 2.04 L (3.80-5.40) m/uL Hgb 5.8 L* (11.4-16.0) gm/dL Hct 18.2 L* (34.0-46.0) % Neutrophils # (Manual) 9.20 H (1.3-7.7) k/uL Lymphocytes # (Manual) 0.76 L (1.0-4.8) k/uL Metamyelocytes # (Man) 0.11 H (0) k/uL Nucleated RBCs 1 H (0-0) /100 WBC Sodium 133 L (137-145) mmol/L Carbon Dioxide 18 L (22-30) mmol/L BUN 34 H (7-17) mg/dL Glucose 161 H (74-99) mg/dL Calcium 7.5 L (8.4-10.2) mg/dL Total Protein 5.3 L (6.3-8.2) g/dL Albumin 2.6 L (3.5-5.0) g/dL Crossmatch See Detail Thrombosis Risk Factor Assmnt - Choose All That Apply Any of the Below Risk Factors Present?: Yes Each Factor Represents 1 point: Obesity (BMI >25) Other Risk Factors: Yes Each Risk Factor Represents 2 Points: Age 61-74 years, Major surgery Other congenital or acquired thrombophilia - If yes, enter type in comment: No Thrombosis Risk Factor Assessment Total Risk Factor Score: 5 Thrombosis Risk Factor Assessment Level: High Risk Assessment and Plan (1) Hypertension Current Visit: Yes Status: Acute Code(s): I10 - ESSENTIAL (PRIMARY) HYPERTENSION SNOMED Code(s): 34726509 (2) Anemia Current Visit: Yes Status: Acute Code(s): D64.9 - ANEMIA, UNSPECIFIED SNOMED Code(s): 700721425 (3) Symptomatic anemia Current Visit: Yes Status: Acute Code(s): D64.9 - ANEMIA, UNSPECIFIED SNOMED Code(s): 756199342 Plan: We will go ahead and repeat CBC and CMP in a.m. Given her positive guaiac stool, we will go ahead and. Consult hematology given previous history. Reconcile medications. Increase diet. Prognosis is guarded. Time with Patient: Greater than 30
--- NOTE | 2020-03-11 16:03 | P.CONS ---
History of Present Illness - Reason for Consult Consult date: 03/11/20 anemia Requesting physician: Liss Santiago - Chief Complaint anemia, needing transfusion - History of Present Illness Mrs. Jalloh is a very pleasant female patient who is been seeing Dr. Batres for many years. She was found to have progressive anemia, she was given parenteral iron back in 2013 with improvement in her symptoms as well as her hemoglobin. She had EGD and colonoscopy, duodenal ulcer was not actively bleeding, no other pathology on work up. 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 She has received parenteral iron numerous times over the years. She had lt knee arthoplasty last year. Had rt knee done 02/27. She states she was sent home on 2 full dose asa twice a day as antiplatelet therapy post op. She had a lab draw yesterday at the [facility]. Was sent in for very low Hgb, 4.8 on admit. She is being transfused. She has no acute c/o on a 10 point ROS, denies any bleeding or unusual bruising. Review of Systems 10 point ROS is negative except as stated in HPI Past Medical History Past Medical History: Hypertension, Thyroid Disorder Additional Past Medical History / Comment(s): chronic ANEMIA- pt gets iron trans. every 8-12 weeks for over 12 years. Pt has a hx of a sm ulcer History of Any Multi-Drug Resistant Organisms: None Reported Past Surgical History: Hysterectomy, Joint Replacement, Orthopedic Surgery Additional Past Surgical History / Comment(s): LEFT KNEE ARTHROSCOPIC, carpal tunnel, left knee replacement, laser eye surgery Past Anesthesia/Blood Transfusion Reactions: No Reported Reaction Past Psychological History: No Psychological Hx Reported Smoking Status: Never smoker Past Alcohol Use History: Rare Past Drug Use History: None Reported - Past Family History Mother Family Medical History: No Reported History Medications and Allergies Home Medications Medication Instructions Recorded Confirmed Type Sertraline [Zoloft] 150 mg PO DAILY 08/23/14 03/10/20 History lisinopriL [Zestril] 10 mg PO DAILY 08/12/16 03/10/20 History Amitriptyline HCl [Elavil] 50 mg PO HS 03/10/20 03/10/20 History Cyclobenzaprine [Flexeril] 10 mg PO TID PRN 03/10/20 03/10/20 History Levothyroxine Sodium 200 mcg PO DAILY 03/10/20 03/10/20 History Sennosides [Senna] 17.2 mg PO HS PRN 03/10/20 03/10/20 History amLODIPine [Norvasc] 5 mg PO DAILY 03/10/20 03/10/20 History rOPINIRole HCL [Requip] 1 mg PO TID 03/10/20 03/10/20 History Omeprazole [PriLOSEC] 20 mg PO AC-BRKT #90 cap 03/11/20 Rx Allergies Allergy/AdvReac Type Severity Reaction Status Date / Time meperidine HCl [From Demerol] Allergy Rash/Hives Verified 03/10/20 10:33 Penicillins Allergy Rash/Hives Verified 03/10/20 10:33 Sulfa (Sulfonamide Allergy Rash/Hives Verified 03/10/20 10:33 Antibiotics) Physical Exam Vitals: Vital Signs Temp Pulse Pulse Resp BP BP Pulse Ox 03/11/20 04:00 97.7 F 91 16 113/57 96 03/11/20 00:00 98.4 F 92 16 110/77 97 03/10/20 22:00 97.9 F 98 16 114/68 03/10/20 20:00 97.9 F 103 H 16 120/59 99 03/10/20 19:12 97.8 F 103 H 16 120/59 03/10/20 18:42 92 16 131/58 03/10/20 18:32 98.6 F 96 98 H 125/68 03/10/20 16:00 95 18 118/69 95 03/10/20 14:09 98.6 F 98 18 140/53 97 03/10/20 13:41 98.6 F 100 18 128/54 99 03/10/20 12:43 98.3 F 98 18 105/61 99 03/10/20 12:13 97.7 F 100 18 122/46 95 03/10/20 12:03 98.4 F 98 18 113/73 98 03/10/20 11:26 110 H 18 112/49 98 03/10/20 09:22 97.8 F 64 18 100/58 97 Intake and Output 03/10/20 03/11/20 03/11/20 22:59 06:59 14:59 Intake Total 310 525 Balance 310 525 Intake: Intake, IV Titration 525 Amount Sodium Chloride 0.9% 1, 525 000 ml @ 75 mls/hr IV . [id number] [facility] Rx#:[id number] Blood Product 310 Rc As-1 Unit 310 [id number] Other: # Voids 1 Weight 84.4 kg - Constitutional General appearance: average body habitus, cooperative, no acute distress - EENT Eyes: anicteric sclerae, EOMI ENT: hearing grossly normal, normal oropharynx - Neck Neck: no lymphadenopathy - Respiratory Respiratory: bilateral: CTA - Cardiovascular Rhythm: regular Heart sounds: normal: S1, S2 Abnormal Heart Sounds: no systolic murmur, no diastolic murmur, no rub, no S3 Gallop, no S4 Gallop, no click, no other leg Peripheral Edema: bilateral: None - Gastrointestinal General gastrointestinal: no absent bowel sounds, no decreased bowel sounds, no distended, no hepatomegaly, no hyperactive bowel sounds, normal bowel sounds, no organomegaly, no rigid, no scaphoid, soft, no splenomegaly, no tenderness, no umbilical hernia, no ventral hernia - Integumentary Integumentary: normal turgor, pale - Neurologic Neurologic: CNII-XII intact - Musculoskeletal Musculoskeletal: strength equal bilaterally - Psychiatric Psychiatric: A&O x's 3, appropriate affect, intact judgment & insight Results CBC & Chem 7: 03/11/20 09:43 03/11/20 09:43 Labs: Abnormal Lab Results - Last 24 Hours (Table) 03/10/20 03/10/20 03/10/20 Range/Units 10:10 10:13 10:13 RBC 1.71 L (3.80-5.40) m/uL Hgb 4.8 L* D (11.4-16.0) gm/dL Hct 15.3 L* (34.0-46.0) % RDW 16.1 H (11.5-15.5) % Plt Count 509 H (150-450) k/uL Neutrophils # (Manual) 8.90 H (1.3-7.7) k/uL Lymphocytes # (Manual) 0.84 L (1.0-4.8) k/uL Sodium 134 L (137-145) mmol/L Carbon Dioxide 19 L (22-30) mmol/L BUN 42 H (7-17) mg/dL Glucose 229 H (74-99) mg/dL Calcium 8.2 L (8.4-10.2) mg/dL Total Protein 5.8 L (6.3-8.2) g/dL Albumin 3.1 L (3.5-5.0) g/dL Stool Occult Blood (Negative) Crossmatch See Detail 03/10/20 Range/Units 10:13 RBC (3.80-5.40) m/uL Hgb (11.4-16.0) gm/dL Hct (34.0-46.0) % RDW (11.5-15.5) % Plt Count (150-450) k/uL Neutrophils # (Manual) (1.3-7.7) k/uL Lymphocytes # (Manual) (1.0-4.8) k/uL Sodium (137-145) mmol/L Carbon Dioxide (22-30) mmol/L BUN (7-17) mg/dL Glucose (74-99) mg/dL Calcium (8.4-10.2) mg/dL Total Protein (6.3-8.2) g/dL Albumin (3.5-5.0) g/dL Stool Occult Blood Positive H (Negative) Crossmatch Assessment and Plan (1) Iron deficiency anemia due to chronic blood loss Current Visit: Yes Status: Acute Priority: High Code(s): D50.0 - IRON DEFICIENCY ANEMIA SECONDARY TO BLOOD LOSS (CHRONIC) SNOMED Code(s): 983007798 (2) Symptomatic anemia Current Visit: Yes Status: Acute Priority: High Code(s): D64.9 - ANEMIA, UNSPECIFIED SNOMED Code(s): 527373871 Plan: Agree with transfusions. Goal is to get patient's hemoglobin close to 7. Low ferritin on admission,will order parenteral iron to be given. Agree with endoscopy. After procedures would want patient to resume aspirin as anti-coagulation therapy postoperatively because, if patient gets a blood clot then she will be on longer term anticoagulation which is certainly more risky. We will discuss with Orthopedics to see if the dose of aspirin can safely be reduced from 2 full dose asa twice a day to maybe 1 full dose asa BID. Attests: I have performed H&P and developed impression and plan of care of patient, discussed with dictator. I agree with dictated note, documented as a scribe.
[2020-03-11] MEDS: PANTOPRAZOLE 40 MG/10 ML VIAL IVP SCH (19:58)
[2020-03-11] MEDS: AMITRIPTYLINE HCL 50 MG TAB PO SCH (22:36)
[2020-03-12] MEDS: SODIUM CHLORIDE 0.9% 1,000 ML IV SCH (03:17)
[2020-03-12 03:21] VITALS: RESP 16
[2020-03-12] MEDS: LEVOTHYROXINE 100 MCG TAB PO SCH (05:24)
[2020-03-12] MEDS: MORPHINE SULFATE 4 MG/ML SYRINGE IVP PRN (05:49)
[2020-03-12] MEDS: lisinopriL 10 MG TAB PO SCH (08:32)
[2020-03-12] MEDS: SERTRALINE 100 MG TAB PO SCH (08:32)
[2020-03-12] MEDS: PANTOPRAZOLE 40 MG/10 ML VIAL IVP SCH (08:32)
[2020-03-12] MEDS: amLODIPine 5 MG TAB PO SCH (08:33)
[2020-03-12 09:53] VITALS: TEMP 98.6
[2020-03-12 11:09] LABS: Hypochromasia Slight; MCH 28.6 pg (25.0-35.0); MCHC 31.9 g/dL (31.0-37.0); MCV 89.8 fL (80.0-100.0); Mean Platelet Volume 7.7; Platelet Count 417 k/uL (150-450); Poikilocytosis Moderate; RBC 2.56 m/uL (3.80-5.40); RDW 15.4 % (11.5-15.5); WBC 12.8 k/uL (3.8-10.6)
[2020-03-12 11:14] LABS: HGB 7.3 gm/dL (11.4-16.0)
--- NOTE | 2020-03-12 11:15 | P.PN ---
<Ana Parks - Last Filed: 03/12/20 11:05> Subjective Progress Note Date: 03/12/20 CHIEF COMPLAINT: Anemia HISTORY OF PRESENT ILLNESS: Patient has been followed in regards to her anemia. No active signs of bleeding. Denies any abdominal pain. Denies any nausea or vomiting. Tolerating regular diet. She did receive an additional 2 units of blood yesterday for hemoglobin of 5.8. Today's CBC is pending. Patient reports she is feeling better. Denies any shortness of breath or dizziness. Afebrile. PHYSICAL EXAM: VITAL SIGNS: Reviewed. GENERAL: Well-developed in no acute distress. HEENT: No sclera icterus. Extraocular movements grossly intact. Moist buccal mucosa. Head is atraumatic, normocephalic. ABDOMEN: Soft. Nondistended. Nontender. NEUROLOGIC: Alert and oriented. Cranial nerves II through XII grossly intact. ASSESSMENT: 1. Acute on chronic anemia with positive fecal occult blood which is suggestive of GI source. Patient would prefer to have upper endoscopy completed as an outpatient. 2. Symptomatic anemia 3. Prior history of gastric ulcer 4. History of chronic anemia with iron deficiency and requires iron transfusions 5. Left total knee arthroplasty completed on 02/28/2020 PLAN: -Continue to monitor hemoglobin. Today's hemoglobin is pending -Continue PPI and continue PPI after discharge for possible peptic ulcer disease -Planning for outpatient upper endoscopy within the next [address] Henry Physician Tonger note has been reviewed by physician. Signing provider agrees with the documented findings, assessment, and plan of care. Objective - Vital Signs Vital signs: Vital Signs Temp 98.6 F 03/12/20 08:00 Pulse 90 03/12/20 08:00 Resp 16 03/12/20 08:00 BP 119/67 03/12/20 08:00 Pulse Ox 98 03/12/20 08:00 Intake & Output 03/11/20 03/12/20 03/12/20 18:59 06:59 18:59 Intake Total 850 1994 240 Balance 850 1994 240 Weight 86.5 kg Intake: Intake, IV Titration 450 525 Amount Sodium Chloride 0.9% 1, 450 525 000 ml @ 75 mls/hr IV . [id number] [facility] Rx#:[id number] Oral 400 600 240 Blood Product 0 870 Rc As-1 Unit 0 250 [id number] Rc As-1 Unit 310 [id number] Other: # Voids 4 - Labs CBC & Chem 7: 03/11/20 09:43 03/11/20 09:43 Labs: Abnormal Lab Results - Last 24 Hours (Table) 03/10/20 03/11/20 03/11/20 Range/Units 10:10 09:43 09:43 WBC 10.9 H (3.8-10.6) k/uL RBC 2.04 L (3.80-5.40) m/uL Hgb 5.8 L* (11.4-16.0) gm/dL Hct 18.2 L* (34.0-46.0) % Neutrophils # (Manual) 9.20 H (1.3-7.7) k/uL Lymphocytes # (Manual) 0.76 L (1.0-4.8) k/uL Metamyelocytes # (Man) 0.11 H (0) k/uL Nucleated RBCs 1 H (0-0) /100 WBC Sodium 133 L (137-145) mmol/L Carbon Dioxide 18 L (22-30) mmol/L BUN 34 H (7-17) mg/dL Glucose 161 H (74-99) mg/dL Calcium 7.5 L (8.4-10.2) mg/dL Total Protein 5.3 L (6.3-8.2) g/dL Albumin 2.6 L (3.5-5.0) g/dL Crossmatch See Detail <William Henry - Last Filed: 03/12/20 12:26> Subjective As above. No active bleeding at this time. Patient's symptoms have improved. Plan outpatient upper and lower endoscopy. Continue antiacids post discharge. Objective - Vital Signs Vital signs: Vital Signs Temp 98.6 F 03/12/20 08:00 Pulse 90 03/12/20 08:00 Resp 16 03/12/20 08:00 BP 119/67 03/12/20 08:00 Pulse Ox 98 03/12/20 08:00 Intake & Output 03/11/20 03/12/20 03/12/20 18:59 06:59 18:59 Intake Total 850 1994 240 Balance 850 1994 240 Weight 86.5 kg Intake: Intake, IV Titration 450 525 Amount Sodium Chloride 0.9% 1, 450 525 000 ml @ 75 mls/hr IV . [id number] [facility] Rx#:[id number] Oral 400 600 240 Blood Product 0 870 Rc As-1 Unit 0 250 [id number] Rc As-1 Unit 310 [id number] Other: # Voids 4 - Labs CBC & Chem 7: 03/12/20 10:29 03/12/20 10:29 Labs: Abnormal Lab Results - Last 24 Hours (Table) 03/10/20 03/11/20 03/12/20 Range/Units 10:10 09:43 10:29 WBC 10.9 H 12.8 H (3.8-10.6) k/uL RBC 2.56 L (3.80-5.40) m/uL Hgb 7.3 L D (11.4-16.0) gm/dL Hct 23.0 L (34.0-46.0) % Neutrophils # (Manual) 9.20 H (1.3-7.7) k/uL Lymphocytes # (Manual) 0.76 L (1.0-4.8) k/uL Metamyelocytes # (Man) 0.11 H (0) k/uL Nucleated RBCs 1 H (0-0) /100 WBC Sodium (137-145) mmol/L Carbon Dioxide (22-30) mmol/L BUN (7-17) mg/dL Glucose (74-99) mg/dL Calcium (8.4-10.2) mg/dL Total Protein (6.3-8.2) g/dL Albumin (3.5-5.0) g/dL Crossmatch See Detail 03/12/20 Range/Units 10:29 WBC (3.8-10.6) k/uL RBC (3.80-5.40) m/uL Hgb (11.4-16.0) gm/dL Hct (34.0-46.0) % Neutrophils # (Manual) (1.3-7.7) k/uL Lymphocytes # (Manual) (1.0-4.8) k/uL Metamyelocytes # (Man) (0) k/uL Nucleated RBCs (0-0) /100 WBC Sodium 131 L (137-145) mmol/L Carbon Dioxide 21 L (22-30) mmol/L BUN 24 H (7-17) mg/dL Glucose 163 H (74-99) mg/dL Calcium 7.5 L (8.4-10.2) mg/dL Total Protein 5.2 L (6.3-8.2) g/dL Albumin 2.6 L (3.5-5.0) g/dL Crossmatch
--- NOTE | 2020-03-12 11:28 | P.PN ---
Subjective Progress Note Date: 03/12/20 Principal diagnosis: severe anemia In follow-up today patient is denying any bleeding. She feels pretty well. She is getting around fairly well postop. She is going to have a colonoscopy outpatient. Objective - Vital Signs Vital signs: Vital Signs Temp 98.6 F 03/12/20 08:00 Pulse 90 03/12/20 08:00 Resp 16 03/12/20 08:00 BP 119/67 03/12/20 08:00 Pulse Ox 98 03/12/20 08:00 Intake & Output 03/11/20 03/12/20 03/12/20 18:59 06:59 18:59 Intake Total 850 1994 240 Balance 850 1994 240 Weight 86.5 kg Intake: Intake, IV Titration 450 525 Amount Sodium Chloride 0.9% 1, 450 525 000 ml @ 75 mls/hr IV . [id number] [facility] Rx#:[id number] Oral 400 600 240 Blood Product 0 870 Rc As-1 Unit 0 250 [id number] Rc As-1 Unit 310 [id number] Other: # Voids 4 - Constitutional General appearance: Present: average body habitus, cooperative, no acute distress - EENT Eyes: Present: anicteric sclerae, EOMI ENT: Present: hearing grossly normal - Respiratory Details: respirations even and unlabored - Neurologic Neurologic: Present: CNII-XII intact - Musculoskeletal Musculoskeletal Comment(s): no bruising at left knee Musculoskeletal: Present: strength equal bilaterally - Psychiatric Psychiatric: Present: A&O x's 3, appropriate affect, intact judgment & insight - Labs CBC & Chem 7: 03/12/20 10:29 03/11/20 09:43 Labs: Abnormal Lab Results - Last 24 Hours (Table) 03/10/20 03/11/20 03/12/20 Range/Units 10:10 09:43 10:29 WBC 10.9 H 12.8 H (3.8-10.6) k/uL RBC 2.04 L 2.56 L (3.80-5.40) m/uL Hgb 5.8 L* 7.3 L D (11.4-16.0) gm/dL Hct 18.2 L* 23.0 L (34.0-46.0) % Neutrophils # (Manual) 9.20 H (1.3-7.7) k/uL Lymphocytes # (Manual) 0.76 L (1.0-4.8) k/uL Metamyelocytes # (Man) 0.11 H (0) k/uL Nucleated RBCs 1 H (0-0) /100 WBC Crossmatch See Detail Assessment and Plan (1) Iron deficiency anemia due to chronic blood loss Current Visit: Yes Status: Acute Priority: High Code(s): D50.0 - IRON DEFICIENCY ANEMIA SECONDARY TO BLOOD LOSS (CHRONIC) SNOMED Code(s): 370003652 (2) Symptomatic anemia Current Visit: Yes Status: Acute Priority: High Code(s): D64.9 - ANEMIA, UNSPECIFIED SNOMED Code(s): 020561420 Plan: Patient had an appropriate response to 2 units of packed red blood cells. Her hemoglobin is 7.2 today. Did speak to Orthopedic PA. They are okay with reducing patient's aspirin dose to 81 mg twice a day. A total of 1 month on aspirin is recommended. Therefore, patient will need to be on it until March 29. Discussed with patient about following up and Dr. Batres's office weekly for CBC, iron monitoring and iron infusions as needed during this time. She is in agreement with the plan. Appts in DC plan.
[2020-03-12 11:33] LABS: Albumin 2.6 g/dL (3.5-5.0); Calcium 7.5 mg/dL (8.4-10.2); Potassium 4.5 mmol/L (3.5-5.1); Total Bilirubin 0.5 mg/dL (0.2-1.3); Total Protein 5.2 g/dL (6.3-8.2)
[2020-03-12 12:38] VITALS: BP 120/60; PULSE 81
--- NOTE | 2020-03-12 12:41 | P.DS ---
Providers Date of admission: 03/10/20 12:46 Attending physician: Cody Aleman Consults: 03/10/20 12:37 Consult Physician Routine Consulting Provider: Zackary Urbano Consult Reason/Comments: anemia Do you want consulting provider notified?: Yes 03/10/20 17:43 Consult Physician Routine Consulting Provider: William Henry Consult Reason/Comments: guiac positive stool with anemia Do you want consulting provider notified?: Yes Primary care physician: Cody Aleman - Discharge Diagnosis(es) (1) Hypertension Current Visit: Yes Status: Acute (2) Anemia Current Visit: Yes Status: Acute (3) Symptomatic anemia Current Visit: Yes Status: Acute Priority: High Hospital Course: This is discharge summary on a 6-year-old white female who has history of precipitous anemia. She has had significant workup in the past including colonoscopy. Workup has been unable to ascertain bruit cause of her problem. And she has been working with oncology. She ended up getting about 4 units of PRBC due to the precipitous drop of her hemoglobin. She is actually guaiac positive and she will have scheduled colonoscopy as an outpatient. The patient is stable now hemoglobin is above 7 and she has been cleared by consultants. Patient Condition at Discharge: Stable Plan - Discharge Summary New Discharge Prescriptions: New Omeprazole [PriLOSEC] 20 mg PO AC-BRKFST #90 cap Aspirin 81 mg PO BID 17 Days #34 chewable Continue Sertraline [Zoloft] 150 mg PO DAILY lisinopriL [Zestril] 10 mg PO DAILY rOPINIRole HCL [Requip] 1 mg PO TID Levothyroxine Sodium 200 mcg PO DAILY Cyclobenzaprine [Flexeril] 10 mg PO TID PRN PRN Reason: Muscle Spasm amLODIPine [Norvasc] 5 mg PO DAILY Amitriptyline HCl [Elavil] 50 mg PO HS Sennosides [Senna] 17.2 mg PO HS PRN PRN Reason: Constipation Discharge Medication List Sertraline [Zoloft] 150 mg PO DAILY 08/23/14 [History] lisinopriL [Zestril] 10 mg PO DAILY 08/12/16 [History] Amitriptyline HCl [Elavil] 50 mg PO HS 03/10/20 [History] Cyclobenzaprine [Flexeril] 10 mg PO TID PRN 03/10/20 [History] Levothyroxine Sodium 200 mcg PO DAILY 03/10/20 [History] Sennosides [Senna] 17.2 mg PO HS PRN 03/10/20 [History] amLODIPine [Norvasc] 5 mg PO DAILY 03/10/20 [History] rOPINIRole HCL [Requip] 1 mg PO TID 03/10/20 [History] Omeprazole [PriLOSEC] 20 mg PO AC-BRKFST #90 cap 03/11/20 [Rx] Aspirin 81 mg PO BID 17 Days #34 chewable 03/12/20 [Rx] Follow up Appointment(s)/Referral(s): William Henry MD [Medical Doctor] - 2 Weeks (pt neededs to schedule an outpatient EGD with Dr Henry in 2-3 weeks ) Javier Batres MD [STAFF PHYSICIAN] - 1 Week Cody Aleman MD [Primary Care Provider] - 1 Week Discharge Disposition: HOME SELF-CARE
== END 2020-03-12 15:26 | disposition home or self-care (01) | DRG 812 ==
LOC: EC 09:10 → 3SCARD 12:46
PROVIDERS: ADMIT Family Medicine; ATTEND Family Medicine
PROC: 30233N1 Transfusion of Nonautologous Red Blood Cells into Peripheral Vein, Percutaneous Approach (ICD-10-PCS; principal; 2020-03-10)
DX: D50.0 Iron deficiency anemia secondary to blood loss (chronic) (principal); E03.9 Hypothyroidism, unspecified; I10 Essential (primary) hypertension; K44.9 Diaphragmatic hernia without obstruction or gangrene; R19.5 Other fecal abnormalities; Z79.82 Long term (current) use of aspirin; Z79.890 Hormone replacement therapy; Z79.899 Other long term (current) drug therapy; Z87.11 Personal history of peptic ulcer disease; Z90.710 Acquired absence of both cervix and uterus; Z96.652 Presence of left artificial knee joint; Z88.1 Allergy status to other antibiotic agents; Z88.0 Allergy status to penicillin; Z88.2 Allergy status to sulfonamides; E66.9 Obesity, unspecified; Z68.28 Body mass index [BMI] 28.0-28.9, adult
CPT/HCPCS: 36415; 36430; 80053; 82272; 82728; 84484; 85025; 85027; 85610; 85730; 86850; 86900; 86901; 86920; 93005; 96374; 99285

== ENCOUNTER 2020-03-14 06:10 | Inpatient (IN) | payer MEDICARE ==
[2020-03-14] MEDS ORDERED: PANTOPRAZOLE 40 MG/10 ML VIAL IVP STA (06:30)
[2020-03-14] MEDS ORDERED: MORPHINE SULFATE 4 MG/ML SYRINGE IVP STA (06:30)
[2020-03-14] MEDS ORDERED: SODIUM CHLORIDE 0.9% 1,000 ML IV STA (06:30)
[2020-03-14] MEDS ORDERED: LORazepam 2 MG/ML INJ IV STA (06:30)
--- NOTE | 2020-03-14 06:36 | ED ---
General Adult HPI <Ronaldo Villarreal - Last Filed: 03/14/20 09:07> - General Source: patient, RN notes reviewed, old records reviewed Mode of arrival: wheelchair Limitations: no limitations <Kristen Morgan - Last Filed: 03/14/20 09:37> - General Chief complaint: Shortness of Breath Stated complaint: SOB Time Seen by Provider: 03/14/20 06:21 - History of Present Illness Initial comments: Patient is a 6-year-old female who presents emergency Department today with complaints of shortness of breath, anxiety and concern for low hemoglobin. She was recently discharged from the hospital with history of chronic anemia and had a low hemoglobin of 4.8. She was admitted at blood transfusions and was discharged with hemoglobin of 7.1. Patient reports that she is not sure she's had any dark or tarry stools. Stress to the emergency department today writhing in pain saying she has pain in her right foot complains of concern for fibromyalgia. She reports she is just total body pain that jumps from spot to spot. She reports that she's been up all night due to the pain. Patient states that she has been taking her pain and muscle spasm medication. Patient reports that she recently had her left knee replaced. (Kristen Morgan) - Related Data Home Medications Medication Instructions Recorded Confirmed Sertraline [Zoloft] 150 mg PO DAILY 08/23/14 03/14/20 lisinopriL [Zestril] 10 mg PO DAILY 08/12/16 03/14/20 Amitriptyline HCl [Elavil] 50 mg PO HS 03/10/20 03/14/20 Cyclobenzaprine [Flexeril] 10 mg PO TID PRN 03/10/20 03/14/20 Levothyroxine Sodium 200 mcg PO DAILY 03/10/20 03/14/20 Sennosides [Senna] 17.2 mg PO HS PRN 03/10/20 03/14/20 amLODIPine [Norvasc] 5 mg PO DAILY 03/10/20 03/14/20 rOPINIRole HCL [Requip] 1 mg PO TID 03/10/20 03/14/20 Previous Rx's Medication Instructions Recorded Omeprazole [PriLOSEC] 20 mg PO -BRKFST #90 cap 03/11/20 Aspirin 81 mg PO BID 17 Days #34 chewable 03/12/20 Allergies Allergy/AdvReac Type Severity Reaction Status Date / Time meperidine HCl [From Demerol] Allergy Rash/Hives Verified 03/14/20 07:34 Penicillins Allergy Rash/Hives Verified 03/14/20 07:34 Sulfa (Sulfonamide Allergy Rash/Hives Verified 03/14/20 07:34 Antibiotics) Review of Systems ROS Other: All systems not noted in ROS Statement are negative. <Ronaldo Villarreal - Last Filed: 03/14/20 09:07> ROS Other: All systems not noted in ROS Statement are negative. <Kristen Morgan - Last Filed: 03/14/20 09:37> ROS Statement: Those systems with pertinent positive or pertinent negative responses have been documented in the HPI. Past Medical History Past Medical History: Hypertension, Thyroid Disorder Additional Past Medical History / Comment(s): chronic ANEMIA- pt gets iron trans. every 8-12 weeks for over 12 years. Pt has a hx of a sm ulcer History of Any Multi-Drug Resistant Organisms: None Reported Past Surgical History: Hysterectomy, Joint Replacement, Orthopedic Surgery Additional Past Surgical History / Comment(s): LEFT KNEE ARTHROSCOPIC, carpal tunnel, left knee replacement, laser eye surgery Past Anesthesia/Blood Transfusion Reactions: No Reported Reaction Past Psychological History: No Psychological Hx Reported Smoking Status: Never smoker Past Alcohol Use History: Rare Past Drug Use History: None Reported - Past Family History Mother Family Medical History: No Reported History <Kristen Morgan - Last Filed: 03/14/20 09:37> General Exam Limitations: no limitations General appearance: alert, in no apparent distress Head exam: Present: atraumatic, normocephalic, normal inspection Eye exam: Present: normal appearance, PERRL, EOMI. Absent: scleral icterus, conjunctival injection, periorbital swelling ENT exam: Present: normal exam, mucous membranes dry, mucous membranes moist Neck exam: Present: normal inspection. Absent: tenderness, meningismus, lymphadenopathy Respiratory exam: Present: normal lung sounds bilaterally. Absent: respiratory distress, wheezes, rales, rhonchi, stridor Cardiovascular Exam: Present: regular rate, normal rhythm, normal heart sounds. Absent: systolic murmur, diastolic murmur, rubs, gallop, clicks GI/Abdominal exam: Present: soft, normal bowel sounds. Absent: distended, tenderness, guarding, rebound, rigid Extremities exam: Present: normal inspection, full ROM, normal capillary refill, other (Motor incision over the left knee. No erythema. Patient has 2+ dorsalis pedis pulse and bilateral feet.). Absent: tenderness, pedal edema, joint swelling, calf tenderness Back exam: Present: normal inspection Neurological exam: Present: alert, oriented X3, CN II-XII intact Psychiatric exam: Present: normal affect, normal mood Skin exam: Present: warm, dry, intact, normal color. Absent: rash <Kristen Morgan - Last Filed: 03/14/20 09:37> - General Exam Comments Initial Comments: 69 year old female, anxious. Writhing in pain. (Kristen Morgan) Course <Ronaldo Villarreal - Last Filed: 03/14/20 09:07> <Kristen Morgan - Last Filed: 03/14/20 09:37> Vital Signs 03/14/20 03/14/20 03/14/20 06:15 06:34 08:25 Temperature 98.6 F Pulse Rate 105 H 89 Respiratory 28 H 28 H 20 Rate Blood Pressure 128/61 109/66 O2 Sat by Pulse 98 97 Oximetry 03/14/20 08:51 Temperature Pulse Rate 84 Respiratory 16 Rate Blood Pressure 111/64 O2 Sat by Pulse 96 Oximetry - Reevaluation(s) Reevaluation #1: 03/14/20 07:58 Patient was flailing around the bed and was given Ativan and morphine. She continued to flail due to implants of pain in her lower extremities in the right foot not associated with her recent knee surgery. Patient states that this is chronic for her. She was given another dose of pain medication. (Kristen Morgan) Reevaluation #2: 03/14/20 09:07 PA supervision: I personally evaluate this patient patient does present with complaints of pain to her foot which apparently is been having all night she was found also however to have some shortness of breath and on evaluation of elevated white blood cell count evidence of left lower lobe pneumonia. Due to the presentation further evaluation is performed CT the brain is negative for acute processes and CAT scan of the chest shows no evidence of pulmonary emboli. Patient was very anxious upon arrival and did demonstrate some evidence of possible dystonia. Though it was likely after discussion to be secondary to the pain she was experiencing. Patient will be admitted and Dr. Aleman is covered by Dr. Narayanan today. (Ronaldo Villarreal) Medical Decision Making - Lab Data Result diagrams: 03/14/20 06:47 03/14/20 06:47 <Ronaldo Villarreal - Last Filed: 03/14/20 09:07> - Lab Data Result diagrams: 03/14/20 06:47 03/14/20 06:47 - Radiology Data Radiology results: report reviewed <Kristen Morgan - Last Filed: 03/14/20 09:37> - Medical Decision Making 6-year-old female recently admitted for concerning for symptomatically anemia and possible GI bleed. She presents emergency room with a complaint of shortness of breath and total body pain. On initial presentation she is writhing around the bed quite anxious and agitated. She is given Ativan and pain medication. She is now tired and fatigued. Patient had a 1 view chest x- ray concerning for pneumonia. Lab work shows a stable hemoglobin of 8.2. Her discharge him home was a 0.1. Patient white blood cell count has increased to 16,000. Due to recent hospital admission and concern for pneumonia Patient was placed on antibiotics. Patient has an ALLERGY to penicillin received Rocephin and azithromycin and Levaquin. Patient CT of the chest shows groundglass opacities. Her rapid Herron test is negative. I discussed all findings with the family and they're agreeable for Patient to be admitted. (Kristen Morgan) - Lab Data Lab Results 03/14/20 03/14/20 03/14/20 Range/Units 06:47 06:47 06:47 WBC 16.8 H (3.8-10.6) k/uL RBC 2.85 L (3.80-5.40) m/uL Hgb 8.2 L (11.4-16.0) gm/dL Hct 25.6 L (34.0-46.0) % MCV 89.8 (80.0-100.0) fL MCH 28.8 (25.0-35.0) pg MCHC 32.0 (31.0-37.0) g/dL RDW 15.5 (11.5-15.5) % Plt Count 511 H (150-450) k/uL MPV 8.6 Neutrophils % 87 % Lymphocytes % 6 % Monocytes % 5 % Eosinophils % 1 % Basophils % 0 % Neutrophils # 14.6 H (1.3-7.7) k/uL Lymphocytes # 1.0 (1.0-4.8) k/uL Monocytes # 0.8 (0-1.0) k/uL Eosinophils # 0.1 (0-0.7) k/uL Basophils # 0.1 (0-0.2) k/uL Hypochromasia Moderate Poikilocytosis Moderate APTT 26.3 (22.0-30.0) sec Sodium 134 L (137-145) mmol/L Potassium 5.1 (3.5-5.1) mmol/L Chloride 108 H (98-107) mmol/L Carbon Dioxide 16 L (22-30) mmol/L Anion Gap 10 mmol/L BUN 32 H (7-17) mg/dL Creatinine 1.04 (0.52-1.04) mg/dL Est GFR (CKD-EPI)AfAm 63 (>60 ml/min/1.73 sqM) Est GFR (CKD-EPI)NonAf 55 (>60 ml/min/1.73 sqM) Glucose 144 H (74-99) mg/dL Plasma Lactic Acid [place] (0.7-2.0) mmol/L Calcium 8.2 L (8.4-10.2) mg/dL Magnesium 2.3 (1.6-2.3) mg/dL Total Bilirubin 0.5 (0.2-1.3) mg/dL AST 36 (14-36) U/L ALT 19 (4-34) U/L Alkaline Phosphatase 103 (38-126) U/L Troponin I (0.000-0.034) ng/mL NT-Pro-B Natriuret Pep pg/mL Total Protein 6.2 L (6.3-8.2) g/dL Albumin 3.2 L (3.5-5.0) g/dL Coronavirus (PCR) (Not Detectd) Blood Type Blood Type Recheck Bld Type Recheck Status Antibody Screen Spec Expiration Date 03/14/20 03/14/20 03/14/20 Range/Units 06:47 06:47 06:47 WBC (3.8-10.6) k/uL RBC (3.80-5.40) m/uL Hgb (11.4-16.0) gm/dL Hct (34.0-46.0) % MCV (80.0-100.0) fL MCH (25.0-35.0) pg MCHC (31.0-37.0) g/dL RDW (11.5-15.5) % Plt Count (150-450) k/uL MPV Neutrophils % % Lymphocytes % % Monocytes % % Eosinophils % % Basophils % % Neutrophils # (1.3-7.7) k/uL Lymphocytes # (1.0-4.8) k/uL Monocytes # (0-1.0) k/uL Eosinophils # (0-0.7) k/uL Basophils # (0-0.2) k/uL Hypochromasia Poikilocytosis APTT (22.0-30.0) sec Sodium (137-145) mmol/L Potassium (3.5-5.1) mmol/L Chloride (98-107) mmol/L Carbon Dioxide (22-30) mmol/L Anion Gap mmol/L BUN (7-17) mg/dL Creatinine (0.52-1.04) mg/dL Est GFR (CKD-EPI)AfAm (>60 ml/min/1.73 sqM) Est GFR (CKD-EPI)NonAf (>60 ml/min/1.73 sqM) Glucose (74-99) mg/dL Plasma Lactic Acid [place] 1.6 (0.7-2.0) mmol/L Calcium (8.4-10.2) mg/dL Magnesium (1.6-2.3) mg/dL Total Bilirubin (0.2-1.3) mg/dL AST (14-36) U/L ALT (4-34) U/L Alkaline Phosphatase (38-126) U/L Troponin I <0.012 (0.000-0.034) ng/mL NT-Pro-B Natriuret Pep 1070 pg/mL Total Protein (6.3-8.2) g/dL Albumin (3.5-5.0) g/dL Coronavirus (PCR) (Not Detectd) Blood Type Blood Type Recheck Bld Type Recheck Status Antibody Screen Spec Expiration Date 03/14/20 03/14/20 Range/Units 06:49 08:09 WBC (3.8-10.6) k/uL RBC (3.80-5.40) m/uL Hgb (11.4-16.0) gm/dL Hct (34.0-46.0) % MCV (80.0-100.0) fL MCH (25.0-35.0) pg MCHC (31.0-37.0) g/dL RDW (11.5-15.5) % Plt Count (150-450) k/uL MPV Neutrophils % % Lymphocytes % % Monocytes % % Eosinophils % % Basophils % % Neutrophils # (1.3-7.7) k/uL Lymphocytes # (1.0-4.8) k/uL Monocytes # (0-1.0) k/uL Eosinophils # (0-0.7) k/uL Basophils # (0-0.2) k/uL Hypochromasia Poikilocytosis APTT (22.0-30.0) sec Sodium (137-145) mmol/L Potassium (3.5-5.1) mmol/L Chloride (98-107) mmol/L Carbon Dioxide (22-30) mmol/L Anion Gap mmol/L BUN (7-17) mg/dL Creatinine (0.52-1.04) mg/dL Est GFR (CKD-EPI)AfAm (>60 ml/min/1.73 sqM) Est GFR (CKD-EPI)NonAf (>60 ml/min/1.73 sqM) Glucose (74-99) mg/dL Plasma Lactic Acid [place] (0.7-2.0) mmol/L Calcium (8.4-10.2) mg/dL Magnesium (1.6-2.3) mg/dL Total Bilirubin (0.2-1.3) mg/dL AST (14-36) U/L ALT (4-34) U/L Alkaline Phosphatase (38-126) U/L Troponin I (0.000-0.034) ng/mL NT-Pro-B Natriuret Pep pg/mL Total Protein (6.3-8.2) g/dL Albumin (3.5-5.0) g/dL Coronavirus (PCR) Not Detected (Not Detectd) Blood Type A Positive Blood Type Recheck A Pos Bld Type Recheck Status No Antibody Screen NEGATIVE Spec Expiration Date 03/17/2020234803/14/20 07:56 EKG shows sinus rhythm with left axis deviation. Bundle-branch block. Motor voltage criteria for LVH. May be normal variant. Abnormal EKG. Ventricular rate of 97 bpm. Was 162 ms. She episcopal is 9140 ms. QT QTc is 426/541 ms (Kristen Morgan) - Radiology Data Chest x-ray shows evidence of left lower lobe pneumonia. Chest CTA shows Patient motion and bolus timing limits evaluated. No evidence for central embolism. More distal and I will be difficult to exclude. Scattered groundglass opacities infiltrates suspected. Age-related atrophy and chronic small vessel ischemic changes without acute intracranial process seen at this time. (Kristen Morgan) Disposition <Ronaldo Villarreal - Last Filed: 03/14/20 09:07> Is patient prescribed a controlled substance at d/c from ED?: No Time of Disposition: 09:37 <Kristen Morgan - Last Filed: 03/14/20 09:37> Clinical Impression: Pneumonia, Anemia, Fibromyalgia Disposition: ADMITTED IP TO THIS HOSP Condition: Stable Referrals: Cody Aleman MD [Primary Care Provider] - 1-2 days
[2020-03-14 07:11] LABS: Albumin 3.2 g/dL (3.5-5.0); Calcium 8.2 mg/dL (8.4-10.2); Magnesium 2.3 mg/dL (1.6-2.3); Potassium 5.1 mmol/L (3.5-5.1); Total Bilirubin 0.5 mg/dL (0.2-1.3); Total Protein 6.2 g/dL (6.3-8.2)
[2020-03-14] MEDS ORDERED: HYDROmorphone 1 MG/ML 1 ML SYRINGE IVP STA (07:15)
--- NOTE | 2020-03-14 07:40 | XR ---
EXAMINATION TYPE: XR chest 1V portable DATE OF EXAM: 03/14/2020 COMPARISON: None INDICATION: Short of breath TECHNIQUE: Single frontal view of the chest is obtained. FINDINGS: The heart size is enlarged. The pulmonary vasculature is normal. There may be some mild infiltrate at the left base. IMPRESSION: 1. Mild left lower lobe infiltrate. Correlate for pneumonia
[2020-03-14 07:45] LABS: Basophils # (A) 0.1 k/uL (0-0.2); Basophils % (A) 0 %; Eosinophils # (A) 0.1 k/uL (0-0.7); Eosinophils % (A) 1 %; HCT 25.6 % (34.0-46.0); HGB 8.2 gm/dL (11.4-16.0); Hypochromasia Moderate; Lymphocytes % (A) 6 %; MCH 28.8 pg (25.0-35.0); MCV 89.8 fL (80.0-100.0); Mean Platelet Volume 8.6; Monocytes # (A) 0.8 k/uL (0-1.0); Monocytes % (A) 5 %; Neutrophils # (A) 14.6 k/uL (1.3-7.7); Neutrophils % (A) 87 %; Platelet Count 511 k/uL (150-450); Poikilocytosis Moderate; RBC 2.85 m/uL (3.80-5.40); RDW 15.5 % (11.5-15.5); WBC 16.8 k/uL (3.8-10.6)
[2020-03-14] MEDS ORDERED: AZITHROMYCIN 500 MG in SODIUM CHLORIDE 0.9% 250 ML IVPB STA (07:50)
[2020-03-14] MEDS ORDERED: SODIUM CHLORIDE 0.9% 1,000 ML IV ONE (07:51)
[2020-03-14] MEDS: SODIUM CHLORIDE 0.9% 1,000 ML IV SCH ×3 (08:46→23:01)
--- NOTE | 2020-03-14 08:53 | CT ---
EXAMINATION TYPE: CT brain wo con DATE OF EXAM: 03/14/2020 COMPARISON: 08/12/2016 HISTORY: Altered menta status, fever CT DLP: 1052.[address] of the brain was performed. The ventricles, basal cisterns and sulci overlying the cerebral convexities demonstrate mild enlargem ent. There is no evidence for intracranial hemorrhage or sulcal effacement. There is decreased attenuation about the periventricular white matter and deep white matter of both c erebral hemispheres, compatible with chronic small vessel ischemia. Differential diagnosis does inclu de demyelination. No mass effects are seen.No midline shift. Osseous calvarium is intact. If symptoms persist consider MRI. IMPRESSION: 1. Age related atrophic and chronic small vessel ischemic change without acute intracranial process s een at this time.
--- NOTE | 2020-03-14 08:56 | CT ---
EXAMINATION TYPE: CT chest angio for PE DATE OF EXAM: 03/14/2020 COMPARISON: None HISTORY: Pneumonia, fever, SOB CT DLP: 424.5 mGycm CONTRAST: CT chest with contrast and 3D reconstruction with MIP imaging is performed with IV Contrast, patient injected with 80 mL of Isovue 370. Contrast-enhanced CT of the chest was performed through the course of the pulmonary arteries with efren g and mediastinal window settings submitted. 3D reconstruction with MIP imaging was also performed. Patient respiratory motion limits evaluation. PULMONARY ARTERIES: Patient motion and bolus timing limits evaluation. There is no evidence for obvio us central embolism. More distal emboli would be difficult to exclude. LUNGS: Scattered groundglass infiltrates suspected. No evidence for atelectasis. No pulmonary nodul e or mass is detected. No pleural effusion. MEDIASTINUM: The stomach is intrathoracic in location. Thoracic aorta is of normal caliber. The heart is mildly enlarged. No evidence for mediastinal mass. No mediastinal lymph nodes greater than 1cm. HILAR STRUCTURES: No evidence for mass. No hilar lymph nodes greater than 1 cm. UPPER ABDOMEN: No significant abnormality is seen. IMPRESSION: 1. Patient motion and bolus timing limits evaluation. There is no evidence for obvious central embol ism. More distal emboli would be difficult to exclude. 2.Scattered groundglass infiltrates suspected.
[2020-03-14] MEDS ORDERED: LEVOFLOXACIN 750MG-D5W PMX 750 MG in DEXTROSE/WATER 1 150ML.BAG IVPB STA (09:20)
[2020-03-14] MEDS ORDERED: PNEUMONIA PROTOCOL UTILIZED 1 EACH MISC PO PRN (09:38)
[2020-03-14] MEDS ORDERED: SENNOSIDES 8.6 MG TAB PO PRN (09:42)
--- NOTE | 2020-03-14 11:22 | P.CNPUL ---
History of Present Illness Reason for consult: dyspnea Chief complaint: Generalized weakness and pain in the lower extremity History of present illness: This is a 69-year-old female who was seen eval examined, patient came into the hospital with multiple nonspecific complaints including pain and anxiety and some shortness of breath, x-ray shows groundglass attenuation however: 19 testing has been negative, computed tomography scan of the chest negative for pulmonary embolism, patient is admitted into the hospital for broad-spectrum antibiotics including IV Rocephin and Zithromax labs also significant for elevated WBC count Review of Systems All systems: negative Past Medical History Past Medical History: Hypertension, Thyroid Disorder Additional Past Medical History / Comment(s): chronic ANEMIA- pt gets iron trans. every 8-12 weeks for over 12 years. Pt has a hx of a sm ulcer History of Any Multi-Drug Resistant Organisms: None Reported Past Surgical History: Hysterectomy, Joint Replacement, Orthopedic Surgery Additional Past Surgical History / Comment(s): LEFT KNEE ARTHROSCOPIC, carpal tunnel, left knee replacement, laser eye surgery Past Anesthesia/Blood Transfusion Reactions: No Reported Reaction Past Psychological History: No Psychological Hx Reported Smoking Status: Never smoker Past Alcohol Use History: Rare Past Drug Use History: None Reported - Past Family History Mother Family Medical History: No Reported History Medications and Allergies Home Medications Medication Instructions Recorded Confirmed Type Sertraline [Zoloft] 150 mg PO DAILY 08/23/14 03/14/20 History lisinopriL [Zestril] 10 mg PO DAILY 08/12/16 03/14/20 History Amitriptyline HCl [Elavil] 50 mg PO HS 03/10/20 03/14/20 History Cyclobenzaprine [Flexeril] 10 mg PO TID PRN 03/10/20 03/14/20 History Levothyroxine Sodium 200 mcg PO DAILY 03/10/20 03/14/20 History Sennosides [Senna] 17.2 mg PO HS PRN 03/10/20 03/14/20 History amLODIPine [Norvasc] 5 mg PO DAILY 03/10/20 03/14/20 History rOPINIRole HCL [Requip] 1 mg PO TID 03/10/20 03/14/20 History Omeprazole [PriLOSEC] 20 mg PO AC-BRKFST #90 cap 11/24/20 11/27/20 Rx Aspirin 81 mg PO BID 17 Days #34 chewable 03/12/20 03/14/20 Rx Allergies Allergy/AdvReac Type Severity Reaction Status Date / Time meperidine HCl [From Demerol] Allergy Rash/Hives Verified 03/14/20 07:34 Penicillins Allergy Rash/Hives Verified 03/14/20 07:34 Sulfa (Sulfonamide Allergy Rash/Hives Verified 03/14/20 07:34 Antibiotics) Physical Exam Vitals: Vital Signs Temp Pulse Pulse Resp BP BP Pulse Ox 03/14/20 10:50 97.6 F 82 14 115/68 97 03/14/20 10:09 79 16 113/72 95 03/14/20 08:51 84 16 111/64 96 03/14/20 08:25 89 20 109/66 97 03/14/20 06:34 28 H 03/14/20 06:15 98.6 F 105 H 28 H 128/61 98 Intake and Output 03/13/20 03/14/20 03/14/20 22:59 06:59 14:59 Other: Weight 81.647 kg - EENT Eyes: PERRLA Ears: bilateral: normal - Neck Carotids: bilateral: upstroke normal Thyroid: negative: normal size - Respiratory Respiratory: bilateral: CTA - Cardiovascular Heart sounds: normal: S1, S2 - Gastrointestinal General gastrointestinal: soft - Integumentary Integumentary: normal - Neurologic Neurologic: CNII-XII intact - Musculoskeletal Musculoskeletal: gait normal, generalized weakness, strength equal bilaterally - Psychiatric Psychiatric: A&O x's 3, appropriate affect, intact judgment & insight Results - Laboratory Findings CBC and BMP: 03/14/20 06:47 03/14/20 06:47 Abnormal lab findings: Abnormal Labs 03/14/20 03/14/20 06:47 06:47 WBC 16.8 H RBC 2.85 L Hgb 8.2 L Hct 25.6 L Plt Count 511 H Neutrophils # 14.6 H Sodium 134 L Chloride 108 H Carbon Dioxide 16 L BUN 32 H Glucose 144 H Calcium 8.2 L Total Protein 6.2 L Albumin 3.2 L - Diagnostic Findings Chest x-ray: report reviewed, image reviewed CT scan - chest: report reviewed, image reviewed Assessment and Plan Assessment: Atypical pneumonia versus community-acquired pneumonia Left lower lobe pneumonia History of recent anemia with hemoglobin of 4.8 required blood transfusion, hemoglobin however in the ER stable of 8.2 Leukocytosis History of fibromyalgia Plan: Agree with broad-spectrum antibiotics follow clinical course closely continue DVT peptic ulcer disease prophylaxis further recommendations pending plan of care as per clinical response of the patient Time with Patient: Greater than 30
--- NOTE | 2020-03-14 11:23 | P.HPIM ---
History of Present Illness On-call hospitalist covering Dr. Aleman This is a pleasant 69 years old female with past medical history of hypertension, hypothyroidism, recent history of GI bleed, She was recently discharged from hospital 03/11-03/12 for GI bleed. Recent history of left total knee arthroplasty on 02/28/20, patient supposed to be an aspirin 81 mg twice daily until March 29 as per hematology recommendation Patient looks drowsy, she stated that she started having dyspnea which gets progressed since last Tuesday. She has no coughing and no chest pain Also patient denies any specific neurological complaints, she denies headache, no dizziness, no blurred vision, no slurred speech, no weakness or numbness. No seizure-like activities. And meningeal signs were absent On admission she is tachypneic with respiratory was 28, currently is at 16, she is saturating 95% on room air. showing mild leukocytosis of 16.8 K, increased from 12.8k, 2 days ago. Hemoglobin actually better than 2 days ago at 7.3, today is 8.2. It was 4.8 on admission last time at 4.8.BMP is unremarkable. Troponin is negative, liver enzymes not elevated. covid PCR test is not detected EKG showing normal sinus rhythm at [address]-T changes CT of the brain: No acute process Chest x-ray showing mild left lower lobe infiltrate. Correlates for pneumonia CTA of the chest: No evidence for central embolism, more distal emboli would be difficult to exclude. Scattered groundglass infiltrate suspected by radiologist In the emergency room she was started on ceftriaxone and Zithromax., Also she received 1 dose of levofloxacin because of her penicillin ALLERGY. She is also started on normal saline at 130 mL per hour. Protonix is given. last admission ,patient has been evaluated by hematology and surgical team, she was treated conservatively, Dr. Henry recommended outpatient endoscopy as patient has positive occult blood in his stool and upper endoscopy is recommended at that time. Review of Systems CONSTITUTIONAL: No fever, no malaise, no fatigue. HEENT: No recent visual problems or hearing problems. Denied any sore throat. CARDIOVASCULAR: No orthopnea, PND, no palpitations, no syncope. PULMONARY: no cough, no hemoptysis. GASTROINTESTINAL: No diarrhea, no nausea, no vomiting, no abdominal pain. N ormoactive bowel sounds. NEUROLOGICAL: No headaches, no weakness, no numbness. HEMATOLOGICAL: Denies any bleeding or petechiae. GENITOURINARY: Denies any burning micturition, frequency, or urgency. MUSCULOSKELETAL/RHEUMATOLOGICAL: Denies any joint pain, swelling, or any muscle pain. ENDOCRINE: Denies any polyuria or polydipsia. Past Medical History Past Medical History: Hypertension, Thyroid Disorder Additional Past Medical History / Comment(s): chronic ANEMIA- pt gets iron trans. every 8-12 weeks for over 12 years. Pt has a hx of a sm ulcer History of Any Multi-Drug Resistant Organisms: None Reported Past Surgical History: Hysterectomy, Joint Replacement, Orthopedic Surgery Additional Past Surgical History / Comment(s): LEFT KNEE ARTHROSCOPIC, carpal tunnel, left knee replacement, laser eye surgery Past Anesthesia/Blood Transfusion Reactions: No Reported Reaction Past Psychological History: No Psychological Hx Reported Smoking Status: Never smoker Past Alcohol Use History: Rare Past Drug Use History: None Reported - Past Family History Mother Family Medical History: No Reported History Medications and Allergies Home Medications Medication Instructions Recorded Confirmed Type Sertraline [Zoloft] 150 mg PO DAILY 08/23/14 03/14/20 History lisinopriL [Zestril] 10 mg PO DAILY 08/12/16 03/14/20 History Amitriptyline HCl [Elavil] 50 mg PO HS 03/10/20 03/14/20 History Cyclobenzaprine [Flexeril] 10 mg PO TID PRN 03/10/20 03/14/20 History Levothyroxine Sodium 200 mcg PO DAILY 03/10/20 03/14/20 History Sennosides [Senna] 17.2 mg PO HS PRN 03/10/20 03/14/20 History amLODIPine [Norvasc] 5 mg PO DAILY 03/10/20 03/14/20 History rOPINIRole HCL [Requip] 1 mg PO TID 03/10/20 03/14/20 History Omeprazole [PriLOSEC] 20 mg PO AC-BRKFST #90 cap 03/11/20 03/14/20 Rx Aspirin 81 mg PO BID 17 Days #34 chewable 03/12/20 03/14/20 Rx Allergies Allergy/AdvReac Type Severity Reaction Status Date / Time meperidine HCl [From Demerol] Allergy Rash/Hives Verified 03/14/20 07:34 Penicillins Allergy Rash/Hives Verified 03/14/20 07:34 Sulfa (Sulfonamide Allergy Rash/Hives Verified 03/14/20 07:34 Antibiotics) Physical Exam Vitals: Vital Signs Temp Pulse Resp BP Pulse Ox 03/14/20 10:09 79 16 113/72 95 03/14/20 08:51 84 16 111/64 96 03/14/20 08:25 89 20 109/66 97 03/14/20 06:34 28 H 03/14/20 06:15 98.6 F 105 H 28 H 128/61 98 Intake and Output 03/13/20 03/14/20 03/14/20 22:59 06:59 14:59 Other: Weight 81.647 kg -GENERAL: The patient is alert and oriented x2-3, drowsy. not in any acute distress. Well developed, well nourished. HEENT: Pupils are round and equally reacting to light. EOMI. No scleral icterus. No conjunctival pallor. Normocephalic, atraumatic. No pharyngeal erythema. No thyromegaly. CARDIOVASCULAR: S1 and S2 present. No murmurs, rubs, or gallops. -PULMONARY: Chest is clear to auscultation, no wheezing or crackles. Patient is tachypneic with some bilateral scattered claudication ABDOMEN: Soft, nontender, nondistended, normoactive bowel sounds. No palpable organomegaly. MUSCULOSKELETAL: No joint swelling or deformity. EXTREMITIES: No cyanosis, clubbing, or pedal edema. -NEUROLOGICAL: Gross neurological examination did not reveal any focal deficits. Cranial nerves are grossly intact. Strength is 5/5 and sensation is intact in all extremities.meningeal signs were absent SKIN: No rashes. No petechiae Results CBC & Chem 7: 03/14/20 06:47 03/14/20 06:47 Labs: Abnormal Lab Results - Last 24 Hours (Table) 03/14/20 03/14/20 Range/Units 06:47 06:47 WBC 16.8 H (3.8-10.6) k/uL RBC 2.85 L (3.80-5.40) m/uL Hgb 8.2 L (11.4-16.0) gm/dL Hct 25.6 L (34.0-46.0) % Plt Count 511 H (150-450) k/uL Neutrophils # 14.6 H (1.3-7.7) k/uL Sodium 134 L (137-145) mmol/L Chloride 108 H (98-107) mmol/L Carbon Dioxide 16 L (22-30) mmol/L BUN 32 H (7-17) mg/dL Glucose 144 H (74-99) mg/dL Calcium 8.2 L (8.4-10.2) mg/dL Total Protein 6.2 L (6.3-8.2) g/dL Albumin 3.2 L (3.5-5.0) g/dL Assessment and Plan Assessment: acute right lower lobe pneumonia drowsiness, most likely metabolic encephalopathy Recent history of GI bleed, hemoglobin is stable. Hypothyroidism Hypertension Depression, not in active issue Plan: This is a pleasant 69 years old female who presents with possible pneumonia. Continue with antibiotic. Send sputum culture. Check pro-calcitonin and C- reactive protein. Consult pulmonary service. Also patient has multiple drug ALLERGY and there is suspicion for hospital-acquired pneumonia versus community acquired pneumonia Regarding her drowsiness it looks like related to her pulmonary infection process, intracranial infection felt Unlikely . However we will consult infectious disease as well, also to help with antibiotic choice. We will order the neuro check with close monitoring Start iron pills. Continue with aspirin. Follow-up with surgery team Dr. Henry for outpatient endoscopy for her recent history of GI bleed Labs and medication were reviewed.. Continue same treatment. Continue with symptomatic treatment. Resume home medication. Monitor lytes and vitals. DVT and GI prophylaxis. Further recommendations depends on the clinical course of the patient DVT prophylaxis: no Subcutaneous heparin, and in view of recent GI bleed. Continue with aspirin 81 mg twice daily. GI Prophylaxis: Ppi PT/OT: Pending Prognosis is guarded
[2020-03-14] MEDS: FERROUS SULFATE 325 MG TAB PO SCH ×2 (12:00→16:59)
[2020-03-14 15:00] LABS: Appearance,Urine Clear (Clear); Bilirubin,Urine Negative (Negative); Blood,Urine Negative (Negative); Color,Urine Yellow; Glucose,Urine (UA) Negative (Negative); Hyaline Casts,Urine 5 /lpf (0-2); Ketones,Urine Negative (Negative); Leukocyte Esterase,Urine Moderate (Negative); Mucus,Urine Rare /hpf; Nitrite,Urine Negative (Negative); PH, Urine 5.5 (5.0-8.0); Protein,Urine Trace (Negative); RBC,Urine 4 /hpf (0-5); Specific Gravity,Urine >1.050 (1.001-1.035); Squamous Epithelial Cell,Urine 1 /hpf (0-4); Urobilinogen,Urine <2.0 mg/dL (<2.0); WBC,Urine 13 /hpf (0-5)
[2020-03-14 15:01] LABS: Amphetamine Screen,Urine Not Detected (NotDetected); Barbiturate Screen,Urine Not Detected (NotDetected); Benzodiazepines Screen,Urine Detected (NotDetected); Cocaine Screen,Urine Not Detected (NotDetected); Methadone Screen, Urine Not Detected (NotDetected); Opiate Screen,Urine Detected (NotDetected); Oxycodone Screen, Urine Not Detected (NotDetected); Phencyclidine Screen,Urine Not Detected (NotDetected); Tricyclic Antidepressant,Urine Detected (NotDetected); Urn Cannabinoid Scrn Not Detected (NotDetected)
[2020-03-14] MEDS: CYCLOBENZAPRINE 10 MG TAB PO PRN (17:04)
[2020-03-14] MEDS: AMITRIPTYLINE HCL 50 MG TAB PO SCH (20:07)
[2020-03-14] MEDS: ASPIRIN 81 MG PO SCH (20:07)
--- NOTE | 2020-03-14 23:34 | CONS ---
CONSULTATION DATE OF SERVICE: 03/14/2020 REASON FOR CONSULTATION: Pneumonia with multiple antibiotic allergies. HISTORY OF PRESENT ILLNESS: The patient is a 69-year-old female who is status post left knee arthroplasty on 02/28/2020 The patient subsequently did have admission to the hospital with GI bleed and has been treated conservatively. The patient was discharged the day before presentation back to the hospital. The patient came into the hospital with increasing shortness of breath and has been progressively getting worse for the last day or 2. The patient denies having any chest pain. Denies any significant cough or sputum production. No nausea, vomiting, abdominal pain, or any diarrhea. With these symptoms, the patient was evaluated by the ER physician. On arrival to the ER, the patient was afebrile. Patient currently 95 to 97 percent on room air. No evidence of any hypoxemia. The patient did have a hemoglobin with white count 16.8 and no leukopenia. Liver enzymes were normal. Procalcitonin 0.1 as well as the CRP. The patient did have a chest x-ray, mild left lower lobe infiltrate correlate for pneumonia. CT angiogram of the chest did not show any PE, but did show suspected. Patient Covid test came back negative. The patient is currently being treated with Rocephin and Zithromax. Infectious Disease consulted for further management of antibiotics because of her multiple antibiotic allergies. REVIEW OF SYSTEMS: Positive points have been mentioned in HPI. Rest of the systems are negative. PAST MEDICAL HISTORY: Past medical history of: Hypertension, hypothyroidism, chronic anemia, osteoarthritis, PAST SURGICAL HISTORY: Hysterectomy left knee replacement, carpal tunnel release. SOCIAL HISTORY: No history of smoking. Rarely drinks. No drug use. FAMILY HISTORY: No pertinent findings noticed. ALLERGIES: PENICILLIN AND SULFA. MEDICATIONS: Currently include the patient is currently on: Tylenol, Norvasc, aspirin, Zithromax, Rocephin, Flexeril, iron sulfate, Synthroid, Zestril, Protonix, Requip, , Zoloft. PHYSICAL EXAMINATION: Blood pressure 109/61 with a pulse of 94. Temperature 97.9. She is 95% on room air. General description: The patient is an elderly female up in the bed in no distress. No tachypnea or accessory muscles of respiration use. HEENT: Shows pallor. No scleral icterus. Oral mucous membranes dry. Neck: Trachea central. No thyromegaly. Lungs unlabored breathing, decreased breath sounds at bases. No wheeze. Heart S1, S2. Regular rate and rhythm. ABDOMEN: Soft, no tenderness. No rigidity. No guarding. EXTREMITIES: Left knee incision is currently healing well. Minimal swelling. No redness. No drainage. NEUROLOGICAL: The patient is awake, alert, oriented. Mood and affect normal. LABS: Hemoglobin 8.8, white count 16.2, BUN of 32, creatinine 1.04. White count 0.10. DIAGNOSTIC IMPRESSION AND PLAN: Patient presented to the hospital with increasing shortness of breath which is likely multifactorial in this patient who did have elevated white count with evidence of some ground-glass opacity with concern for possible fluid related underlying pneumonia less likely but not entirely excluded especially with procalcitonin. PLAN: 1. We will obtain sputum for Gram stain and culture and check urine for Legionella antigen. 2. Rocephin 2 grams daily and Zithromax to continue. 3. We will follow on clinical condition and culture to further adjust medication if needed. Thank you for this consultation. Will follow this patient along with you. MMODL / IJN: [id number] /
[2020-03-15] MEDS: CYCLOBENZAPRINE 10 MG TAB PO PRN ×2 (01:33→13:06)
[2020-03-15] MEDS: LEVOTHYROXINE 100 MCG TAB PO SCH (05:37)
[2020-03-15 08:01] LABS: HCT 23.7 % (34.0-46.0); HGB 7.3 gm/dL (11.4-16.0); Hypochromasia Marked; MCH 28.3 pg (25.0-35.0); MCHC 30.9 g/dL (31.0-37.0); MCV 91.5 fL (80.0-100.0); Mean Platelet Volume 7.9; Platelet Count 526 k/uL (150-450); Poikilocytosis Moderate; RBC 2.58 m/uL (3.80-5.40); RDW 15.4 % (11.5-15.5); WBC 13.9 k/uL (3.8-10.6)
--- NOTE | 2020-03-15 08:27 | XR ---
EXAMINATION TYPE: XR chest 2V DATE OF EXAM: 03/15/2020 COMPARISON: Chest x-ray and CTA chest from yesterday. HISTORY: Difficulty breathing and pneumonia. TECHNIQUE: Frontal and lateral views of the chest are obtained. FINDINGS: There is persistent mild cardiomegaly with moderate to large size hiatal hernia retrocardi ac region. Multifocal increased opacities bilaterally remain present. No pleural effusion or pneumoth orax seen. The osseous structures are intact. IMPRESSION: Mild cardiomegaly with faint multifocal bilateral acute infiltrates. No significant harrison ge from prior study. Correlate for covid-19 infection.
[2020-03-15] MEDS: ASPIRIN 81 MG PO SCH ×2 (08:29→21:39)
[2020-03-15] MEDS: PANTOPRAZOLE 40 MG TABLET PO SCH (08:29)
[2020-03-15] MEDS: FERROUS SULFATE 325 MG TAB PO SCH ×2 (08:29→17:09)
[2020-03-15] MEDS: amLODIPine 5 MG TAB PO SCH (08:29)
[2020-03-15] MEDS: SERTRALINE 100 MG TAB PO SCH (08:30)
[2020-03-15] MEDS: lisinopriL 10 MG TAB PO SCH (08:30)
[2020-03-15] MEDS: AZITHROMYCIN 500 MG in SODIUM CHLORIDE 0.9% 250 ML IVPB SCH (10:56)
--- NOTE | 2020-03-15 11:58 | P.PN ---
Subjective Progress Note Date: 03/15/20 Principal diagnosis: Atypical pneumonia versus community-acquired pneumonia Left lower lobe pneumonia History of recent anemia with hemoglobin of 4.8 required blood transfusion, hemoglobin however in the ER stable of 8.2 Leukocytosis History of fibromyalgia 03/15/2020, patient seen eval reexamined during the rounds labs reviewed medications reviewed Care plan discussed with the staff, blood cultures have been negative so far, white cell count coming down and now is 13,900, urine is positive for opiates and benzodiazepine, on 2 L oxygen saturation is 94%, This is a 69-year-old female who was seen eval examined, patient came into the hospital with multiple nonspecific complaints including pain and anxiety and some shortness of breath, x-ray shows groundglass attenuation however: 19 testing has been negative, computed tomography scan of the chest negative for pulmonary embolism, patient is admitted into the hospital for broad-spectrum antibiotics including IV Rocephin and Zithromax labs also significant for elevated WBC count Objective - Vital Signs Vital signs: Vital Signs Temp 98.0 F 03/15/20 08:00 Pulse 106 H 03/15/20 08:00 Resp 15 03/15/20 08:00 BP 114/74 03/15/20 08:00 Pulse Ox 94 L 03/15/20 08:00 Intake & Output 03/14/20 03/15/20 03/15/20 18:59 06:59 18:59 Weight 81.647 kg Other: Voiding Method Toilet Toilet # Voids 2 5 - Exam - EENT Eyes: PERRLA Ears: bilateral: normal - Neck Carotids: bilateral: upstroke normal Thyroid: negative: normal size - Respiratory Respiratory: bilateral: CTA - Cardiovascular Heart sounds: normal: S1, S2 - Gastrointestinal General gastrointestinal: soft - Integumentary Integumentary: normal - Neurologic Neurologic: CNII-XII intact - Musculoskeletal Musculoskeletal: gait normal, generalized weakness, strength equal bilaterally - Psychiatric Psychiatric: A&O x's 3, appropriate affect, intact judgment & insight - Labs CBC & Chem 7: 03/15/20 06:37 03/14/20 06:47 Labs: Abnormal Lab Results - Last 24 Hours (Table) 03/14/20 03/14/20 03/14/20 Range/Units 06:47 06:47 14:09 WBC (3.8-10.6) k/uL RBC (3.80-5.40) m/uL Hgb (11.4-16.0) gm/dL Hct (34.0-46.0) % MCHC (31.0-37.0) g/dL Plt Count (150-450) k/uL C-Reactive Protein 153.3 H (<10.0) mg/L Procalcitonin 0.10 H (0.02-0.09) ng/mL Ur Specific [place] >1.050 H (1.001-1.035) Urine Protein Trace H (Negative) Ur Leukocyte Esterase Moderate H (Negative) Urine WBC 13 H (0-5) /hpf Hyaline Casts 5 H (0-2) /lpf Urine Mucus Rare H (None) /hpf Urine Opiates Screen Detected H (NotDetected) U Tricyclic Antidepress Detected H (NotDetected) U Benzodiazepines Scrn Detected H (NotDetected) 03/15/20 Range/Units 06:37 WBC 13.9 H (3.8-10.6) k/uL RBC 2.58 L (3.80-5.40) m/uL Hgb 7.3 L (11.4-16.0) gm/dL Hct 23.7 L (34.0-46.0) % MCHC 30.9 L (31.0-37.0) g/dL Plt Count 526 H (150-450) k/uL C-Reactive Protein (<10.0) mg/L Procalcitonin (0.02-0.09) ng/mL Ur Specific [place] (1.001-1.035) Urine Protein (Negative) Ur Leukocyte Esterase (Negative) Urine WBC (0-5) /hpf Hyaline Casts (0-2) /lpf Urine Mucus (None) /hpf Urine Opiates Screen (NotDetected) U Tricyclic Antidepress (NotDetected) U Benzodiazepines Scrn (NotDetected) Microbiology - Last 24 Hours (Table) 03/14/20 08:08 Blood Culture - Preliminary Blood No Growth after 24 hours Assessment and Plan Assessment: Atypical pneumonia versus community-acquired pneumonia Left lower lobe pneumonia History of recent anemia with hemoglobin of 4.8 required blood transfusion, hemoglobin however in the ER stable of 8.2 Leukocytosis History of fibromyalgia Plan: Agree with broad-spectrum antibiotics follow clinical course closely continue DVT peptic ulcer disease prophylaxis further recommendations pending plan of care as per clinical response of the patient Time with Patient: Greater than 30
[2020-03-15] MEDS: SODIUM CHLORIDE 0.9% 1,000 ML IV SCH (13:02)
[2020-03-15 13:50] LABS: Lymphocytes # (M) 0.28 k/uL (1.0-4.8); Monocytes # (M) 0.56 k/uL (0-1.0); Neutrophils # (M) 13.07 k/uL (1.3-7.7); Neutrophils % (M) 94 %; Nucleated Red Blood Cells 0 /100 WBC (0-0); Total Cells Counted 100
[2020-03-15 13:57] LABS: African American GFR (CKD) 75.1 (60.0-200.0); Anion Gap 8.6 mmol/L (4.00-12.00); BUN/Creat Ratio 31.11 Ratio (12.00-20.00); Calcium 7.9 mg/dL (8.7-10.3); Carbon Dioxide 17.4 mmol/L (21.6-31.8); Non-African American GFR(CKD) 64.8 (60.0-200.0); Potassium 4.5 mmol/L (3.5-5.5)
[2020-03-15] MEDS: AMITRIPTYLINE HCL 50 MG TAB PO SCH (21:39)
[2020-03-16] MEDS: SODIUM CHLORIDE 0.9% 1,000 ML IV SCH (00:25)
--- NOTE | 2020-03-16 00:58 | PN ---
PROGRESS NOTE DATE OF SERVICE: 03/15/2020 REASON FOR FOLLOWUP: Pneumonia. INTERVAL HISTORY: The patient remains to be afebrile. The patient is currently breathing comfortably and saturating 98% on room air. The patient denies having any chest pain or cough. No nausea. No abdominal pain or diarrhea. PHYSICAL EXAMINATION: Blood pressure 135/54, pulse of 80, temperature 98. She is 98% on room air. General description: The patient is an elderly female up in the in no distress. Respiratory system: Unlabored breathing, decreased breath sounds at the base. No wheeze. HEART: S1, S2. Regular rate and rhythm. ABDOMEN: Soft, no tenderness. LABS: Hemoglobin is 7.8, white count 13.9, BUN of 28, creatinine 0.9. [place] PCR negative. Urine is negative. DIAGNOSTIC IMPRESSION/PLAN: Patient admitted to the hospital with increasing shortness of breath which is likely multifactorial with concern for possible pneumonia in this patient who was negative for Covid though evidence of multifocal bilateral infiltrate on x-ray persists. The patient is currently covered on Zithromax and Rocephin along with the . Monitor clinical course closely. MMODL / IJN: [id number] /
[2020-03-16] MEDS: CYCLOBENZAPRINE 10 MG TAB PO PRN (02:07)
--- NOTE | 2020-03-16 02:41 | P.PN ---
Subjective On-call hospitalist covering Dr. Aleman This is a pleasant 69 years old female with past medical history of hypertension, hypothyroidism, recent history of GI bleed, She was recently discharged from hospital 03/11-03/12 for GI bleed. Recent history of left total knee arthroplasty on 02/28/20, patient supposed to be an aspirin 81 mg twice daily until March 29 as per hematology recommendation Patient looks drowsy, she stated that she started having dyspnea which gets progressed since last Tuesday. She has no coughing and no chest pain Also patient denies any specific neurological complaints, she denies headache, no dizziness, no blurred vision, no slurred speech, no weakness or numbness. No seizure-like activities. And meningeal signs were absent On admission she is tachypneic with respiratory was 28, currently is at 16, she is saturating 95% on room air. showing mild leukocytosis of 16.8 K, increased from 12.8k, 2 days ago. Hem oglobin actually better than 2 days ago at 7.3, today is 8.2. It was 4.8 on admission last time at 4.8.BMP is unremarkable. Troponin is negative, liver enzymes not elevated. covid PCR test is not detected EKG showing normal sinus rhythm at [address]-T changes CT of the brain: No acute process Chest x-ray showing mild left lower lobe infiltrate. Correlates for pneumonia CTA of the chest: No evidence for central embolism, more distal emboli would be difficult to exclude. Scattered groundglass infiltrate suspected by radiologist In the emergency room she was started on ceftriaxone and Zithromax., Also she received 1 dose of levofloxacin because of her penicillin ALLERGY. She is also started on normal saline at 130 mL per hour. Protonix is given. last admission ,patient has been evaluated by hematology and surgical team, she was treated conservatively, Dr. Henry recommended outpatient endoscopy as patient has positive occult blood in his stool and upper endoscopy is recommended at that time. 03/15/2020 Patient was sitting in bed, looks very active, her breathing is very quiet. She was anxious because she developed to go home soon however she agrees to stay in hospital now Most likely her altered mental status on admission was related to substance abuse as there is benzodiazepines and opiates in the urine drug screen, they are not listed in her medication She's on room air, she is breathing quietly however chest x-ray showing persistent bilateral infiltrates correlates for Covid, however her for Covid test came back negative and infectious disease on the case. Appreciate pulmonary component Dr. Aleman will resume the care of the patient on Tuesday Review of Systems CONSTITUTIONAL: No fever, no malaise, no fatigue. HEENT: No recent visual problems or hearing problems. Denied any sore throat. CARDIOVASCULAR: No orthopnea, PND, no palpitations, no syncope. PULMONARY: no cough, no hemoptysis. GASTROINTESTINAL: No diarrhea, no nausea, no vomiting, no abdominal pain. Normoactive bowel sounds. NEUROLOGICAL: No headaches, no weakness, no numbness. HEMATOLOGICAL: Denies any bleeding or petechiae. Active Medications Generic Name Dose Route Start Last Admin Trade Name Freq PRN Reason Stop Dose Admin Amitriptyline HCl 50 mg 03/14/20 21:00 03/15/20 21:39 Amitriptyline Hcl 50 Mg Tab PO 50 mg HS NONA Administration Amlodipine Besylate 5 mg 03/15/20 09:00 03/15/20 08:29 Amlodipine 5 Mg Tab PO 5 mg DAILY NONA Administration Aspirin 81 mg 03/14/20 21:00 03/15/20 21:39 Aspirin 81 Mg PO 81 mg BID NONA Administration Cyclobenzaprine HCl 10 mg 03/14/20 09:42 03/16/20 02:07 Cyclobenzaprine 10 Mg Tab PO 10 mg TID PRN Administration Muscle Spasm Ferrous Sulfate 325 mg 03/14/20 11:00 03/15/20 17:09 Ferrous Sulfate 325 Mg Tab PO 325 mg BID-W/MEALS NONA Administration Ceftriaxone Sodium 2 gm/ 50 mls @ 100 mls/hr 03/15/20 09:00 03/15/20 08:29 Sodium Chloride IVPB 03/17/20 09:01 100 mls/hr Q24HR NONA Administration Azithromycin 500 mg/ Sodium 250 mls @ 250 mls/hr 03/15/20 09:00 03/15/20 10:56 Chloride IVPB 03/18/20 09:59 250 mls/hr DAILY NONA Administration Levothyroxine Sodium 200 mcg 03/15/20 06:30 03/15/20 05:37 Levothyroxine 100 Mcg Tab PO 200 mcg DAILY@0630 NONA Administration Lisinopril 10 mg 03/15/20 09:00 03/15/20 08:30 Lisinopril 10 Mg Tab PO 10 mg DAILY NONA Administration Miscellaneous Information 1 each 03/14/20 09:38 Pneumonia Protocol Utilized 1 Each Misc PO ONCE PRN Per Protocol Pantoprazole Sodium 40 mg 03/15/20 07:30 03/15/20 08:29 Pantoprazole 40 Mg Tablet PO 40 mg AC-BRKFST NONA Administration Ropinirole HCl 1 mg 03/14/20 16:00 03/15/20 21:39 Ropinirole Hcl 1 Mg Tab PO 1 mg TID NONA Administration Senna 17.2 mg 03/14/20 09:42 Sennosides 8.6 Mg Tab PO HS PRN Constipation Sertraline HCl 150 mg 03/15/20 09:00 03/15/20 08:30 Sertraline 100 Mg Tab PO 150 mg DAILY NONA Administration Objective - Vital Signs Vital signs: Vital Signs Temp 98.0 F 03/15/20 08:00 Pulse 106 H 03/15/20 08:00 Resp 15 03/15/20 08:00 BP 114/74 03/15/20 08:00 Pulse Ox 94 L 03/15/20 08:00 Intake & Output 03/14/20 03/15/20 03/15/20 18:59 06:59 18:59 Weight 81.647 kg Other: Voiding Method Toilet Toilet # Voids 2 5 - Exam GENERAL: The patient is alert and oriented x3, not in any acute distress. Well developed, well nourished. HEENT: Pupils are round and equally reacting to light. EOMI. No scleral icterus. No conjunctival pallor. Normocephalic, atraumatic. No pharyngeal erythema. No thyromegaly. CARDIOVASCULAR: S1 and S2 present. No murmurs, rubs, or gallops. PULMONARY: Chest is clear to auscultation, no wheezing or crackles. ABDOMEN: Soft, nontender, nondistended, normoactive bowel sounds. No palpable organomegaly. MUSCULOSKELETAL: No joint swelling or deformity. EXTREMITIES: No cyanosis, clubbing, or pedal edema. NEUROLOGICAL: Gross neurological examination did not reveal any focal deficits. SKIN: No rashes. no petechiae. - Labs CBC & Chem 7: 03/15/20 06:37 03/15/20 06:37 Labs: Abnormal Lab Results - Last 24 Hours (Table) 03/14/20 03/14/20 03/15/20 Range/Units 06:47 14:09 06:37 WBC 13.9 H (3.8-10.6) k/uL RBC 2.58 L (3.80-5.40) m/uL Hgb 7.3 L (11.4-16.0) gm/dL Hct 23.7 L (34.0-46.0) % MCHC 30.9 L (31.0-37.0) g/dL Plt Count 526 H (150-450) k/uL Procalcitonin 0.10 H (0.02-0.09) ng/mL Ur Specific [place] >1.050 H (1.001-1.035) Urine Protein Trace H (Negative) Ur Leukocyte Esterase Moderate H (Negative) Urine WBC 13 H (0-5) /hpf Hyaline Casts 5 H (0-2) /lpf Urine Mucus Rare H (None) /hpf Urine Opiates Screen Detected H (NotDetected) U Tricyclic Antidepress Detected H (NotDetected) U Benzodiazepines Scrn Detected H (NotDetected) Microbiology - Last 24 Hours (Table) 03/14/20 08:08 Blood Culture - Preliminary Blood No Growth after 24 hours Assessment and Plan Assessment: Bilateral community-acquired pneumonia . CAT scan showing bilateral groundglass opacities drowsiness, most likely toxic encephalopathy, rather than metabolic encephalopathy substance abuse with opiates and benzodiazepines in urine drug screen Recent history of GI bleed, hemoglobin is stable. Hypothyroidism Hypertension Depression, not in active issue Plan: This is a pleasant 69 years old female who presents with possible pneumonia. Continue with antibiotic. Consult pulmonary service. Infectious disease on the case PSYCHIATRIC consult for substance abuse and social media content manager consult Start iron pills. Continue with aspirin. Follow-up with surgery team Dr. Henry for outpatient endoscopy for her recent history of GI bleed Labs and medication were reviewed.. Continue same treatment. Continue with sy mptomatic treatment. Resume home medication. Monitor lytes and vitals. DVT and GI prophylaxis. Further recommendations depends on the clinical course of the patient DVT prophylaxis: no Subcutaneous heparin, and in view of recent GI bleed. Continue with aspirin 81 mg twice daily. GI Prophylaxis: Ppi
[2020-03-16] MEDS ORDERED: HYDROcodone/APAP 5-325MG 1 EACH TAB PO STA (02:47)
[2020-03-16] MEDS: LEVOTHYROXINE 100 MCG TAB PO SCH (05:36)
[2020-03-16 05:41] LABS: HCT 22.6 % (34.0-46.0); Hypochromasia Marked; MCH 27.5 pg (25.0-35.0); MCHC 29.8 g/dL (31.0-37.0); MCV 92.4 fL (80.0-100.0); Mean Platelet Volume 7.6; Platelet Count 580 k/uL (150-450); Poikilocytosis Moderate; RBC 2.44 m/uL (3.80-5.40); RDW 15.3 % (11.5-15.5); WBC 11.3 k/uL (3.8-10.6)
[2020-03-16 06:38] LABS: HGB 6.7 gm/dL (11.4-16.0)
[2020-03-16] MEDS: FERROUS SULFATE 325 MG TAB PO SCH ×2 (07:17→16:51)
[2020-03-16] MEDS: PANTOPRAZOLE 40 MG TABLET PO SCH (07:17)
[2020-03-16] MEDS: PANTOPRAZOLE 40 MG/10 ML VIAL IVP SCH ×2 (07:51→21:19)
[2020-03-16 08:53] LABS: Eosinophils # (M) 0.11 k/uL (0-0.7); Lymphocytes # (M) 0.34 k/uL (1.0-4.8); Monocytes # (M) 0.34 k/uL (0-1.0); Neutrophils # (M) 10.51 k/uL (1.3-7.7); Neutrophils % (M) 93 %; Nucleated Red Blood Cells 0 /100 WBC (0-0); Polychromasia Present; Total Cells Counted 100
[2020-03-16] MEDS ORDERED: HEPARIN SODIUM,PORCINE 5,000 UNIT/ML 1 ML VIAL SQ SCH (09:00)
[2020-03-16] MEDS: SERTRALINE 100 MG TAB PO SCH (09:11)
[2020-03-16] MEDS: AZITHROMYCIN 500 MG in SODIUM CHLORIDE 0.9% 250 ML IVPB SCH (09:11)
[2020-03-16] MEDS: lisinopriL 10 MG TAB PO SCH (09:11)
[2020-03-16] MEDS: amLODIPine 5 MG TAB PO SCH (09:12)
[2020-03-16] MEDS: HYDROcodone/APAP 5-325MG 1 EACH TAB PO PRN (10:10)
[2020-03-16 10:14] LABS: African American GFR (CKD) 86.6 (60.0-200.0); BUN/Creat Ratio 32.5 Ratio (12.00-20.00); Calcium 7.8 mg/dL (8.7-10.3); Non-African American GFR(CKD) 74.7 (60.0-200.0); Potassium 4.1 mmol/L (3.5-5.5)
--- NOTE | 2020-03-16 10:51 | P.CN ---
Psychiatric Consult - . Consult date: 03/16/20 Consult:: IDENTIFYING DATA: Mrs. Jalloh is a 69-year-old female admitted to medicine for evaluation of dyspnea. The hospitalist consult to psychiatry to evaluate the patient for "substance abuse." HISTORY OF PRESENT ILLNESS: I reviewed the medical record including her MAPS report and interviewed the patient. She was surprised when I explain the reason for the consultation. She denied that she has been misusing her medications and denied that she had history of drug abuse. She voluntarily talked about her experience with treatment for her chronic pain and her struggles with discontinuing oxycodone. She stated that with the assistance of her outpatient physician she stopped using oxycodone and gradually tapered herself off of methadone. She denied that she had been misusing opiate pain medication prescr iptions. The MAPS showed she receives prescriptions for 10 capsules of gabapentin and 42 tablets [place] on 02/28/2020. She stated that she takes the [place] intermittently and only when she listens severe pain. She is unable to explain the benzodiazepine results initial instruction. She specifically denied that she had been prescribed or taking such benzodiazepines as Xanax, Ativan, Librium, Valium, or clonazepam. She is anxious about her medical status and her chronic struggles with pain. She denied having persistent feelings of depression or depression that interfere with her ability to care for herself. She denied experiencing such psychotic symptoms as hallucinations, paranoia or confusion. She denied use of drugs or alcohol to get high, help her sleep or change her mood. PAST PSYCHIATRIC HISTORY: She has had no psychiatric hospitalizations. She was involved with outpatient counseling after her son's when she petition the court for visitation with her grandchildren. Her primary providers prescribed antidepressants for the treatment of chronic pain and fibromyalgia PAST MEDICAL HISTORY: See admission history and physical ALLERGIES: No parenting, penicillins, sulfa SUBSTANCE USE HISTORY: She denied history of substance use problems. She described iatrogenic dependence on narcotic pain medication. She is never been any substance abuse treatment program. She denied family or friends have expressed concern to her about her alcohol or medication use. FAMILY PSYCHIATRIC/SUBSTANCE USE HISTORY: Her son and her mother by suicide. Her mother have closer to injury. Her son has struggled with depressive disorder. SOCIAL HISTORY: His born and raised in [facility]. She been 40 years to her second . She has 5 children and several grandchildren. She is retired. MENTAL STATUS EXAM: She presented as a disheveled appearing elderly female who was sitting comfortably in her bed. She made eye contact and attended the interview. She had stereotypic rocking movements throughout the interview. I did not evaluate her gait. She had a blunted and somewhat anxious facial expression. Her speech was spontaneous with normal rate, rhythm and volume. Her affect was age anxious. She denied suicidal ideation, wishes or homicidal ideation. She denied feeling hopeless, helpless or worthless. She did not express ideas reference, paranoid ideation or delusional thoughts. She denied hallucinations did not appear to be responding to internal stimuli. IMPRESSIONS: She is 69-year-old female has history of chronic pain disorder she with opiate pain medicines. She described her struggles with oxycodone and eventually was able to wean herself off of methadone prescribed for chronic narcotic pain. She currently takes Narco and gabapentin for chronic pain. She denies that she abuses prescriptions of her narcotic medications. She was unable to explain the presence of benzodiazepines in her urine. I found evidence that she has a substance use disorder that requires psychiatric intervention. DIAGNOSIS: Chronic pain disorder, fibromyalgia RECOMMENDATION: There is no indication for transfer to psychiatric unit. There is no indication for referral for outpatient mental health or substance abuse treatment at this time. Thank you for this consult. Psychiatry will sign off on the case. 03/16/20 10:34
[2020-03-16] MEDS ORDERED: diphenhydrAMINE 25 MG CAP PO PRN (11:05)
[2020-03-16] MEDS ORDERED: methylPREDNISolone SOD SUCCI 125 MG/2 ML VIAL IVP STA (11:21)
--- NOTE | 2020-03-16 11:25 | P.PN ---
Subjective Progress Note Date: 03/16/20 Principal diagnosis: Atypical pneumonia versus community-acquired pneumonia Left lower lobe pneumonia History of recent anemia with hemoglobin of 4.8 required blood transfusion, hemoglobin however in the ER stable of 8.2 Leukocytosis History of fibromyalgia 03/16/2020, patient seen eval examined during the rounds labs reviewed medications reviewed care plan discussed, remains on broad-spectrum antibiotics breathing treatments and IV steroids, labs from today reviewed reviewed, white cell count is improved no hemoglobin 6.7, patient to be transfused with 1 unit of packed RBC, check stools for occult blood, 03/15/2020, patient seen eval reexamined during the rounds labs reviewed medications reviewed Care plan discussed with the staff, blood cultures have been negative so far, white cell count coming down and now is 13,900, urine is positive for opiates and benzodiazepine, on 2 L oxygen saturation is 94%, This is a 69-year-old female who was seen eval examined, patient came into the hospital with multiple nonspecific complaints including pain and anxiety and s ome shortness of breath, x-ray shows groundglass attenuation however: 19 testing has been negative, computed tomography scan of the chest negative for pulmonary embolism, patient is admitted into the hospital for broad-spectrum antibiotics including IV Rocephin and Zithromax labs also significant for elevated WBC count Objective - Vital Signs Vital signs: Vital Signs Temp 98.0 F 03/16/20 11:01 Pulse 92 03/16/20 11:01 Resp 18 03/16/20 11:01 BP 120/67 03/16/20 11:01 Pulse Ox 96 03/16/20 11:01 Intake & Output 03/15/20 03/16/20 03/16/20 18:59 06:59 18:59 Intake Total 0 Balance 0 Intake: Blood Product 0 Rc As-1 Unit 0 [id number] Other: Voiding Method Toilet Toilet Toilet # Voids 1 - Exam - EENT Eyes: PERRLA Ears: bilateral: normal - Neck Carotids: bilateral: upstroke normal Thyroid: negative: normal size - Respiratory Respiratory: bilateral: CTA - Cardiovascular Heart sounds: normal: S1, S2 - Gastrointestinal General gastrointestinal: soft - Integumentary Integumentary: normal - Neurologic Neurologic: CNII-XII intact - Musculoskeletal Musculoskeletal: gait normal, generalized weakness, strength equal bilaterally - Psychiatric Psychiatric: A&O x's 3, appropriate affect, intact judgment & insight - Labs CBC & Chem 7: 03/16/20 04:30 03/16/20 04:30 Labs: Abnormal Lab Results - Last 24 Hours (Table) 03/14/20 03/15/20 03/15/20 Range/Units 06:49 06:37 06:37 WBC (3.8-10.6) k/uL RBC (3.80-5.40) m/uL Hgb (11.4-16.0) gm/dL Hct (34.0-46.0) % MCHC (31.0-37.0) g/dL Plt Count (150-450) k/uL Neutrophils # (Manual) 13.07 H (1.3-7.7) k/uL Lymphocytes # (Manual) 0.28 L (1.0-4.8) k/uL Chloride 111 H (96-109) mmol/L Carbon Dioxide 17.4 L (21.6-31.8) mmol/L BUN 28.0 H (9.0-27.0) mg/dL BUN/Creatinine Ratio 31.11 H (12.00-20.00) Ratio Glucose (70-110) mg/dL Calcium 7.9 L (8.7-10.3) mg/dL Crossmatch See Detail 03/16/20 03/16/20 Range/Units 04:30 04:30 WBC 11.3 H (3.8-10.6) k/uL RBC 2.44 L (3.80-5.40) m/uL Hgb 6.7 L* (11.4-16.0) gm/dL Hct 22.6 L (34.0-46.0) % MCHC 29.8 L (31.0-37.0) g/dL Plt Count 580 H (150-450) k/uL Neutrophils # (Manual) 10.51 H (1.3-7.7) k/uL Lymphocytes # (Manual) 0.34 L (1.0-4.8) k/uL Chloride 111 H (96-109) mmol/L Carbon Dioxide 16.0 L (21.6-31.8) mmol/L BUN (9.0-27.0) mg/dL BUN/Creatinine Ratio 32.50 H (12.00-20.00) Ratio Glucose 189 H (70-110) mg/dL Calcium 7.8 L (8.7-10.3) mg/dL Crossmatch Microbiology - Last 24 Hours (Table) 03/14/20 08:08 Blood Culture - Preliminary Blood No Growth after 48 hours Assessment and Plan Assessment: Atypical pneumonia versus community-acquired pneumonia Left lower lobe pneumonia Worsening anemia History of recent anemia with hemoglobin of 4.8 required blood transfusion, hemoglobin however in the ER stable of 8.2 Leukocytosis History of fibromyalgia Plan: Agree with broad-spectrum antibiotics follow clinical course closely continue DVT peptic ulcer disease prophylaxis further recommendations pending plan of care as per clinical response of the patient Agree with 1 unit of packed RBC evaluation for chronic anemia deferred to primary service expertise Time with Patient: Greater than 30
--- NOTE | 2020-03-16 12:06 | US ---
EXAMINATION TYPE: US venous doppler duplex LE DATE OF EXAM: 03/16/2020 11:05 AM COMPARISON: NONE CLINICAL HISTORY: rule out DVT. left calf redness. Patient is getting blood transfusion. No swelling . SIDE PERFORMED: Bilateral TECHNIQUE: The lower extremity deep venous system is examined utilizing real time linear array sonog prashanth with graded compression, doppler sonography and color-flow sonography. VESSELS IMAGED: Common Femoral Vein Deep Femoral Vein Greater Saphenous Vein * Femoral Vein Popliteal Vein Small Saphenous Vein * Proximal Calf Veins (* superficial vessels) Right Leg: Negative for DVT Left Leg: Negative for DVT Grayscale, color doppler, spectral doppler imaging performed of the deep veins of the bilateral lower extremities. There is normal flow, compressibility, vascular waveforms. IMPRESSION: No ultrasound evidence for acute DVT in bilateral lower extremities.
[2020-03-16 13:41] LABS: Ferritin 85.2 ng/mL (10.0-291.0); Folate, Serum 12.5 ng/mL
--- NOTE | 2020-03-16 14:04 | P.GSCN ---
History of Present Illness Consult date: 03/16/20 Reason for Consult: Anemia History of present illness: This a 69-year-old female who had a recent hospital for GI bleed. Patient is noted to be anemic. Her he will 6.7. She is scheduled see Dr. Luu for upper and lower endoscopy. Past Medical History Past Medical History: Hypertension, Thyroid Disorder Additional Past Medical History / Comment(s): chronic ANEMIA- pt gets iron trans. every 8-12 weeks for over 12 years. Pt has a hx of a sm ulcer History of Any Multi-Drug Resistant Organisms: None Reported Past Surgical History: Hysterectomy, Joint Replacement, Orthopedic Surgery Additional Past Surgical History / Comment(s): LEFT KNEE ARTHROSCOPIC, carpal tunnel, left knee replacement, laser eye surgery Past Anesthesia/Blood Transfusion Reactions: No Reported Reaction Past Psychological History: No Psychological Hx Reported Smoking Status: Never smoker Past Alcohol Use History: Rare Past Drug Use History: None Reported - Past Family History Mother Family Medical History: No Reported History Medications and Allergies Home Medications Medication Instructions Recorded Confirmed Type Sertraline [Zoloft] 150 mg PO DAILY 08/23/14 03/14/20 History lisinopriL [Zestril] 10 mg PO DAILY 08/12/16 03/14/20 History Amitriptyline HCl [Elavil] 50 mg PO HS 03/10/20 03/14/20 History Cyclobenzaprine [Flexeril] 10 mg PO TID PRN 03/10/20 03/14/20 History Levothyroxine Sodium 200 mcg PO DAILY 03/10/20 03/14/20 History Sennosides [Senna] 17.2 mg PO HS PRN 03/10/20 03/14/20 History amLODIPine [Norvasc] 5 mg PO DAILY 03/10/20 03/14/20 History rOPINIRole HCL [Requip] 1 mg PO TID 03/10/20 03/14/20 History Omeprazole [PriLOSEC] 20 mg PO AC-BRKFST #90 cap 03/11/20 03/14/20 Rx Aspirin 81 mg PO BID 17 Days #34 chewable 03/12/20 03/14/20 Rx Allergies Allergy/AdvReac Type Severity Reaction Status Date / Time meperidine HCl [From Demerol] Allergy Rash/Hives Verified 03/14/20 07:34 Penicillins Allergy Rash/Hives Verified 03/14/20 07:34 Sulfa (Sulfonamide Allergy Rash/Hives Verified 03/14/20 07:34 Antibiotics) Surgical - Exam Vital Signs Temp Pulse Resp BP Pulse Ox 98.6 F 105 H 28 H 128/61 98 03/14/20 06:15 03/14/20 06:15 03/14/20 06:15 03/14/20 06:15 03/14/20 06:15 - General well developed, well nourished, no distress - Eyes PERRL - ENT normal pinna - Neck no masses - Respiratory normal expansion - Cardiovascular Rhythm: regular - Abdomen Abdomen: soft, non tender Results - Labs 03/16/20 04:30 03/16/20 04:30 Abnormal Lab Results - Last 24 Hours (Table) 03/14/20 03/16/20 03/16/20 Range/Units 06:49 04:30 04:30 WBC 11.3 H (3.8-10.6) k/uL RBC 2.44 L (3.80-5.40) m/uL Hgb 6.7 L* (11.4-16.0) gm/dL Hct 22.6 L (34.0-46.0) % MCHC 29.8 L (31.0-37.0) g/dL Plt Count 580 H (150-450) k/uL Neutrophils # (Manual) 10.51 H (1.3-7.7) k/uL Lymphocytes # (Manual) 0.34 L (1.0-4.8) k/uL Chloride 111 H (96-109) mmol/L Carbon Dioxide 16.0 L (21.6-31.8) mmol/L BUN/Creatinine Ratio 32.50 H (12.00-20.00) Ratio Glucose 189 H (70-110) mg/dL Calcium 7.8 L (8.7-10.3) mg/dL Iron (50-170) ug/dL Vitamin B12 (200.0-944.0) pg/mL Crossmatch See Detail 03/16/20 Range/Units 04:30 WBC (3.8-10.6) k/uL RBC (3.80-5.40) m/uL Hgb (11.4-16.0) gm/dL Hct (34.0-46.0) % MCHC (31.0-37.0) g/dL Plt Count (150-450) k/uL Neutrophils # (Manual) (1.3-7.7) k/uL Lymphocytes # (Manual) (1.0-4.8) k/uL Chloride (96-109) mmol/L Carbon Dioxide (21.6-31.8) mmol/L BUN/Creatinine Ratio (12.00-20.00) Ratio Glucose (70-110) mg/dL Calcium (8.7-10.3) mg/dL Iron 12 L (50-170) ug/dL Vitamin B12 1026.0 H (200.0-944.0) pg/mL Crossmatch Microbiology - Last 24 Hours (Table) 03/14/20 08:08 Blood Culture - Preliminary Blood No Growth after 48 hours Diabetes panel 03/16/20 Range/Units 04:30 Sodium 138 (135-145) mmol/L Potassium 4.1 (3.5-5.5) mmol/L Chloride 111 H (96-109) mmol/L Carbon Dioxide 16.0 L (21.6-31.8) mmol/L BUN 26.0 (9.0-27.0) mg/dL Creatinine 0.8 (0.6-1.5) mg/dL Glucose 189 H (70-110) mg/dL Calcium 7.8 L (8.7-10.3) mg/dL Calcium panel 03/16/20 Range/Units 04:30 Calcium 7.8 L (8.7-10.3) mg/dL Pituitary panel 03/16/20 Range/Units 04:30 Sodium 138 (135-145) mmol/L Potassium 4.1 (3.5-5.5) mmol/L Chloride 111 H (96-109) mmol/L Carbon Dioxide 16.0 L (21.6-31.8) mmol/L BUN 26.0 (9.0-27.0) mg/dL Creatinine 0.8 (0.6-1.5) mg/dL Glucose 189 H (70-110) mg/dL Calcium 7.8 L (8.7-10.3) mg/dL Adrenal panel 03/16/20 Range/Units 04:30 Sodium 138 (135-145) mmol/L Potassium 4.1 (3.5-5.5) mmol/L Chloride 111 H (96-109) mmol/L Carbon Dioxide 16.0 L (21.6-31.8) mmol/L BUN 26.0 (9.0-27.0) mg/dL Creatinine 0.8 (0.6-1.5) mg/dL Glucose 189 H (70-110) mg/dL Calcium 7.8 L (8.7-10.3) mg/dL Assessment and Plan Assessment: Anemia. Patient be scheduled by Dr. Luu for upper and lower endoscopy.
[2020-03-16] MEDS: AMITRIPTYLINE HCL 50 MG TAB PO SCH (21:19)
--- NOTE | 2020-03-16 22:03 | P.PN ---
Subjective On-call hospitalist covering Dr. Aleman This is a pleasant 69 years old female with past medical history of hypertension, hypothyroidism, recent history of GI bleed, She was recently discharged from hospital 03/11-03/12 for GI bleed. Recent history of left total knee arthroplasty on 02/28/20, patient supposed to be an aspirin 81 mg twice daily until March 29 as per hematology recommendation Patient looks drowsy, she stated that she started having dyspnea which gets progressed since last Tuesday. She has no coughing and no chest pain Also patient denies any specific neurological complaints, she denies headache, no dizziness, no blurred vision, no slurred speech, no weakness or numbness. No seizure-like activities. And meningeal signs were absent On admission she is tachypneic with respiratory was 28, currently is at 16, she is saturating 95% on room air. showing mild leukocytosis of 16.8 K, increased from 12.8k, 2 days ago. Hem oglobin actually better than 2 days ago at 7.3, today is 8.2. It was 4.8 on admission last time at 4.8.BMP is unremarkable. Troponin is negative, liver enzymes not elevated. covid PCR test is not detected EKG showing normal sinus rhythm at [address]-T changes CT of the brain: No acute process Chest x-ray showing mild left lower lobe infiltrate. Correlates for pneumonia CTA of the chest: No evidence for central embolism, more distal emboli would be difficult to exclude. Scattered groundglass infiltrate suspected by radiologist In the emergency room she was started on ceftriaxone and Zithromax., Also she received 1 dose of levofloxacin because of her penicillin ALLERGY. She is also started on normal saline at 130 mL per hour. Protonix is given. last admission ,patient has been evaluated by hematology and surgical team, she was treated conservatively, Dr. Henry recommended outpatient endoscopy as patient has positive occult blood in his stool and upper endoscopy is recommended at that time. 03/15/2020 Patient was sitting in bed, looks very active, her breathing is very quiet. She was anxious because she developed to go home soon however she agrees to stay in hospital now Most likely her altered mental status on admission was related to substance abuse as there is benzodiazepines and opiates in the urine drug screen, they are not listed in her medication She's on room air, she is breathing quietly however chest x-ray showing persistent bilateral infiltrates correlates for Covid, however her for Covid test came back negative and infectious disease on the case. Appreciate pulmonary component 03/16/2020 This is a pleasant 69 years old female who presents with altered mental status and respiratory distress and found to have colicky acquired pneumonia, she was started on Zithromax and ceftriaxone, her mentation is back to normal from next day. She supposed to follow up with Dr. mcintyre for anemia workup as an outpatient, however her hemoglobin dropped to 6.7 today, surgical consult was obtained and the plan for upper and lower endoscopy Today she had some warmth and pinkish discoloration of the lower extremity suspected ALLERGIC reaction so steroids, Benadryl and Pepcid provided, ultrasound of the lower extremity was negative for DVT Review of Systems CONSTITUTIONAL: No fever, no malaise, no fatigue. HEENT: No recent visual problems or hearing problems. Denied any sore throat. CARDIOVASCULAR: No orthopnea, PND, no palpitations, no syncope. PULMONARY: no cough, no hemoptysis. GASTROINTESTINAL: No diarrhea, no nausea, no vomiting, no abdominal pain. Normoactive bowel sounds. NEUROLOGICAL: No headaches, no weakness, no numbness. HEMATOLOGICAL: Denies any bleeding or petechiae. Active Medications Generic Name Dose Route Start Last Admin Trade Name Freq PRN Reason Stop Dose Admin Hydrocodone Bitart/Acetaminophen 1 each 03/16/20 09:17 03/16/20 10:10 Hydrocodone/Apap 5-325mg 1 Each Tab PO 1 each Q6HR PRN Administration Pain Amitriptyline HCl 50 mg 03/14/20 21:00 03/16/20 21:19 Amitriptyline Hcl 50 Mg Tab PO 50 mg HS NONA Administration Amlodipine Besylate 5 mg 03/15/20 09:00 03/16/20 09:12 Amlodipine 5 Mg Tab PO 5 mg DAILY NONA Administration Azithromycin 500 mg 03/17/20 09:00 Azithromycin 500 Mg Tab PO DAILY NONA Cyclobenzaprine HCl 10 mg 03/14/20 09:42 03/16/20 02:07 Cyclobenzaprine 10 Mg Tab PO 10 mg TID PRN Administration Muscle Spasm Diphenhydramine HCl 25 mg 03/16/20 11:05 03/16/20 11:28 Diphenhydramine 25 Mg Cap PO 25 mg QID PRN Administration Rash/itching Ferrous Sulfate 325 mg 03/14/20 11:00 03/16/20 16:51 Ferrous Sulfate 325 Mg Tab PO 325 mg BID-W/MEALS NONA Administration Ceftriaxone Sodium 2 gm/ 50 mls @ 100 mls/hr 03/15/20 09:00 03/16/20 08:20 Sodium Chloride IVPB 03/17/20 09:01 100 mls/hr Q24HR NONA Administration Levothyroxine Sodium 200 mcg 03/15/20 06:30 03/16/20 05:36 Levothyroxine 100 Mcg Tab PO 200 mcg DAILY@0630 NONA Administration Lisinopril 10 mg 03/15/20 09:00 03/16/20 09:11 Lisinopril 10 Mg Tab PO 10 mg DAILY NONA Administration Miscellaneous Information 1 each 03/14/20 09:38 Pneumonia Protocol Utilized 1 Each Misc PO ONCE PRN Per Protocol Pantoprazole Sodium 40 mg 03/16/20 09:00 03/16/20 21:19 Pantoprazole 40 Mg/10 Ml Vial IVP 40 mg BID NONA Administration Ropinirole HCl 1 mg 03/14/20 16:00 03/16/20 21:19 Ropinirole Hcl 1 Mg Tab PO 1 mg TID NONA Administration Senna 17.2 mg 03/14/20 09:42 Sennosides 8.6 Mg Tab PO HS PRN Constipation Sertraline HCl 150 mg 03/15/20 09:00 03/16/20 09:11 Sertraline 100 Mg Tab PO 150 mg DAILY NONA Administration Objective - Vital Signs Vital signs: Vital Signs Temp 97.5 F L 03/16/20 14:00 Pulse 94 03/16/20 14:00 Resp 17 03/16/20 14:00 BP 123/68 03/16/20 14:00 Pulse Ox 98 03/16/20 14:00 Intake & Output 03/15/20 03/16/20 03/16/20 18:59 06:59 18:59 Intake Total 310 Balance 310 Intake: Blood Product 310 Rc As-1 Unit 310 [id number] Other: Voiding Method Toilet Toilet Toilet # Voids 1 - Exam GENERAL: The patient is alert and oriented x3, not in any acute distress. Well developed, well nourished. HEENT: Pupils are round and equally reacting to light. EOMI. No scleral icterus. No conjunctival pallor. Normocephalic, atraumatic. No pharyngeal erythema. No t hyromegaly. CARDIOVASCULAR: S1 and S2 present. No murmurs, rubs, or gallops. PULMONARY: Chest is clear to auscultation, no wheezing or crackles. ABDOMEN: Soft, nontender, nondistended, normoactive bowel sounds. No palpable organomegaly. MUSCULOSKELETAL: No joint swelling or deformity. EXTREMITIES: No cyanosis, clubbing, or pedal edema. NEUROLOGICAL: Gross neurological examination did not reveal any focal deficits. SKIN: No rashes. no petechiae. - Labs CBC & Chem 7: 03/16/20 04:30 03/16/20 04:30 Labs: Abnormal Lab Results - Last 24 Hours (Table) 03/14/20 03/16/20 03/16/20 Range/Units 06:49 04:30 04:30 WBC 11.3 H (3.8-10.6) k/uL RBC 2.44 L (3.80-5.40) m/uL Hgb 6.7 L* (11.4-16.0) gm/dL Hct 22.6 L (34.0-46.0) % MCHC 29.8 L (31.0-37.0) g/dL Plt Count 580 H (150-450) k/uL Neutrophils # (Manual) 10.51 H (1.3-7.7) k/uL Lymphocytes # (Manual) 0.34 L (1.0-4.8) k/uL Chloride 111 H (96-109) mmol/L Carbon Dioxide 16.0 L (21.6-31.8) mmol/L BUN/Creatinine Ratio 32.50 H (12.00-20.00) Ratio Glucose 189 H (70-110) mg/dL Calcium 7.8 L (8.7-10.3) mg/dL Iron (50-170) ug/dL Vitamin B12 (200.0-944.0) pg/mL Crossmatch See Detail 03/16/20 Range/Units 04:30 WBC (3.8-10.6) k/uL RBC (3.80-5.40) m/uL Hgb (11.4-16.0) gm/dL Hct (34.0-46.0) % MCHC (31.0-37.0) g/dL Plt Count (150-450) k/uL Neutrophils # (Manual) (1.3-7.7) k/uL Lymphocytes # (Manual) (1.0-4.8) k/uL Chloride (96-109) mmol/L Carbon Dioxide (21.6-31.8) mmol/L BUN/Creatinine Ratio (12.00-20.00) Ratio Glucose (70-110) mg/dL Calcium (8.7-10.3) mg/dL Iron 12 L (50-170) ug/dL Vitamin B12 1026.0 H (200.0-944.0) pg/mL Crossmatch Microbiology - Last 24 Hours (Table) 03/14/20 08:08 Blood Culture - Preliminary Blood No Growth after 48 hours Assessment and Plan Assessment: Bilateral community-acquired pneumonia . CAT scan showing bilateral groundglass opacities drowsiness, most likely toxic encephalopathy, rather than metabolic encephalopathy substance abuse with opiates and benzodiazepines in urine drug screen Recent history of GI bleed, hemoglobin is stable. Hypothyroidism Hypertension Depression, not in active issue Plan: This is a pleasant 69 years old female who presents with possible pneumonia. Continue with antibiotic. Consult pulmonary service. Infectious disease on the case PSYCHIATRIC consult for substance abuse and licensed social worker consult Start iron pills. Continue with aspirin. Follow-up with surgery team Dr. Henry for outpatient endoscopy for her recent history of GI bleed Labs and medication were reviewed.. Continue same treatment. Continue with symptomatic treatment. Resume home medication. Monitor lytes and vitals. DVT and GI prophylaxis. Further recommendations depends on the clinical course of the patient DVT prophylaxis: no Subcutaneous heparin, and in view of recent GI bleed. Continue with aspirin 81 mg twice daily. GI Prophylaxis: Ppi Dr. Aleman will resume the care of the patient tomorrow
[2020-03-17] MEDS: HYDROcodone/APAP 5-325MG 1 EACH TAB PO PRN (02:40)
[2020-03-17] MEDS: LEVOTHYROXINE 100 MCG TAB PO SCH (05:26)
--- NOTE | 2020-03-17 05:47 | PN ---
PROGRESS NOTE DATE OF SERVICE: 03/16/2020 REASON FOR FOLLOWUP: Pneumonia. INTERVAL HISTORY: Patient is currently afebrile. Patient is breathing comfortably. The patient denies having any chest pain. Minimal cough. No nausea, vomiting, abdominal pain or diarrhea. PHYSICAL EXAMINATION: Blood pressure 139/67, pulse of 97, temperature 97.9. She is 98% on room air. General description is an elderly female up in bed in no distress. Respiratory system: Unlabored breathing, decreased breath sounds in the bases with no wheeze. Heart S1, S2. Regular rate and rhythm. Abdomen is soft, no tenderness. LABS: White count 11.3, hemoglobin down to 6.7, creatinine 0.8. DIAGNOSTIC IMPRESSION AND PLAN: Patient admitted to the hospital with shortness of breath, multifactorial, did have extensive workup. She has been negative for COVID. Currently responded to the Rocephin and Zithromax to continue along with supportive treatment and continue to monitor clinical course closely. MMODL / IJN: [id number] /
[2020-03-17 07:08] LABS: Basophils % (A) 0 %; Eosinophils % (A) 0 %; HCT 26.7 % (34.0-46.0); HGB 8.1 gm/dL (11.4-16.0); Hypochromasia Marked; Lymphocytes # (A) 0.6 k/uL (1.0-4.8); Lymphocytes % (A) 5 %; MCH 27.9 pg (25.0-35.0); MCHC 30.4 g/dL (31.0-37.0); MCV 91.7 fL (80.0-100.0); Mean Platelet Volume 7.6; Monocytes # (A) 0.7 k/uL (0-1.0); Monocytes % (A) 5 %; Neutrophils # (A) 11.1 k/uL (1.3-7.7); Neutrophils % (A) 89 %; Platelet Count 596 k/uL (150-450); Poikilocytosis Moderate; RBC 2.91 m/uL (3.80-5.40); WBC 12.5 k/uL (3.8-10.6)
[2020-03-17 09:50] LABS: African American GFR (CKD) 86.6 (60.0-200.0); Anion Gap 6.7 mmol/L (4.00-12.00); Calcium 8.3 mg/dL (8.7-10.3); Carbon Dioxide 19.3 mmol/L (21.6-31.8); Non-African American GFR(CKD) 74.7 (60.0-200.0); Potassium 4.7 mmol/L (3.5-5.5)
[2020-03-17] MEDS: PANTOPRAZOLE 40 MG/10 ML VIAL IVP SCH ×2 (10:09→20:40)
[2020-03-17] MEDS: FERROUS SULFATE 325 MG TAB PO SCH ×2 (10:12→17:22)
[2020-03-17] MEDS: AZITHROMYCIN 500 MG TAB PO SCH (10:12)
[2020-03-17] MEDS: SERTRALINE 100 MG TAB PO SCH (10:12)
[2020-03-17] MEDS: amLODIPine 5 MG TAB PO SCH (10:13)
[2020-03-17] MEDS: lisinopriL 10 MG TAB PO SCH (10:16)
--- NOTE | 2020-03-17 11:47 | P.PN ---
Subjective Progress Note Date: 03/17/20 Principal diagnosis: GI bleed Patient known to our service. Was recently hospitalized for anemia. Went home and came back a few days later with shortness of breath. Chest x-ray shows bilateral infiltrates suspicious for possible Covid however PCR test negative. Patient being treated for community-acquired pneumonia. We were reconsulted because of her anemia. Hemoglobin 8.1 today. Patient is scheduled for outpatient elective upper and lower endoscopy next week. Still with productive cough. Patient states she does not want to have the endoscopy at this time. She is currently on a regular diet. Anticoagulation has been held because of the recent heme positive stools. Patient denies gross rectal bleeding or melena. Objective - Vital Signs Vital signs: Vital Signs Temp 97.6 F 03/17/20 08:40 Pulse 94 03/17/20 08:40 Resp 18 03/17/20 08:40 BP 146/74 03/17/20 08:40 Pulse Ox 96 03/17/20 08:40 Intake & Output 03/16/20 03/17/20 03/17/20 18:59 06:59 18:59 Intake Total 610 50 Balance 610 50 Intake: Intake, IV Titration 300 50 Amount Azithromycin 500 mg In 250 Sodium Chloride 0.9% 250 ml @ 250 mls/hr IVPB DAILY NONA Rx#:[id number] cefTRIAXone 2 gm In 50 50 Sodium Chloride 0.9% 50 ml @ 100 mls/hr IVPB Q24HR [facility] Rx#:[id number] Blood Product 310 Rc As-1 Unit 310 [id number] Other: Voiding Method Toilet Toilet # Voids 2 - Exam Abdomen: Soft, nontender, nondistended - Labs CBC & Chem 7: 03/17/20 06:12 03/17/20 06:12 Labs: Abnormal Lab Results - Last 24 Hours (Table) 03/14/20 03/16/20 03/17/20 Range/Units 06:49 04:30 06:12 WBC 12.5 H (3.8-10.6) k/uL RBC 2.91 L (3.80-5.40) m/uL Hgb 8.1 L (11.4-16.0) gm/dL Hct 26.7 L (34.0-46.0) % MCHC 30.4 L (31.0-37.0) g/dL Plt Count 596 H (150-450) k/uL Neutrophils # 11.1 H (1.3-7.7) k/uL Lymphocytes # 0.6 L (1.0-4.8) k/uL Chloride (96-109) mmol/L Carbon Dioxide (21.6-31.8) mmol/L BUN/Creatinine Ratio (12.00-20.00) Ratio Glucose (70-110) mg/dL Calcium (8.7-10.3) mg/dL Iron 12 L (50-170) ug/dL Vitamin B12 1026.0 H (200.0-944.0) pg/mL Crossmatch See Detail 03/17/20 Range/Units 06:12 WBC (3.8-10.6) k/uL RBC (3.80-5.40) m/uL Hgb (11.4-16.0) gm/dL Hct (34.0-46.0) % MCHC (31.0-37.0) g/dL Plt Count (150-450) k/uL Neutrophils # (1.3-7.7) k/uL Lymphocytes # (1.0-4.8) k/uL Chloride 112 H (96-109) mmol/L Carbon Dioxide 19.3 L (21.6-31.8) mmol/L BUN/Creatinine Ratio 30.00 H (12.00-20.00) Ratio Glucose 248 H (70-110) mg/dL Calcium 8.3 L (8.7-10.3) mg/dL Iron (50-170) ug/dL Vitamin B12 (200.0-944.0) pg/mL Crossmatch Microbiology - Last 24 Hours (Table) 03/14/20 08:08 Blood Culture - Preliminary Blood No Growth after 72 hours Assessment and Plan Assessment: 69-year-old female with anemia and heme positive stools. Advise proceeding with upper and lower endoscopy during this hospital stay however patient would like to avoid. We'll change diet to clear liquids starting tomorrow. Will discuss further with the patient tomorrow regarding possible endoscopy.
--- NOTE | 2020-03-17 11:47 | P.PN ---
Subjective Progress Note Date: 03/17/20 CHIEF COMPLAINT: Anemia HISTORY OF PRESENT ILLNESS: Patient admitted to the hospital for pneumonia and anemia. She is currently on antibiotics for her pneumonia. Her hemoglobin did drop to 6.7 during this admission she did require 1 unit of blood. Hemoglobin currently 8.1. She reports before admission she had 2 days of black stools. And since admission she has had no black stools or any active bleeding reported. She reports no bowel movement since admission. She denies any abdominal pain. Denies any nausea or vomiting. She is currently on a regular diet. She reports that she'll is likely to be discharged home tomorrow. She is afebrile. WBC 12.5 Patient had recent hospitalization and was to be scheduled for EGD outpatient. PHYSICAL EXAM: VITAL SIGNS: Reviewed. GENERAL: Well-developed in no acute distress. HEENT: No sclera icterus. Extraocular movements grossly intact. Moist buccal mucosa. Head is atraumatic, normocephalic. ABDOMEN: Soft. Nondistended. Nontender. NEUROLOGIC: Alert and oriented. Cranial nerves II through XII grossly intact. ASSESSMENT: 1. Acute on chronic anemia. Patient did require 1 unit of blood during this admission. Hemoglobin currently 8.1. No active signs of bleeding at this time. 2. Pneumonia PLAN: -Continue regular diet -Continue IV Protonix -Continue to monitor hemoglobin -Antibiotics for pneumonia per ID Physician Wick Tender note has been reviewed by physician. Signing provider agrees with the documented findings, assessment, and plan of care. Objective - Vital Signs Vital signs: Vital Signs Temp 97.6 F 03/17/20 08:40 Pulse 94 03/17/20 08:40 Resp 18 03/17/20 08:40 BP 146/74 03/17/20 08:40 Pulse Ox 96 03/17/20 08:40 Intake & Output 03/16/20 03/17/20 03/17/20 18:59 06:59 18:59 Intake Total 610 50 Balance 610 50 Intake: Intake, IV Titration 300 50 Amount Azithromycin 500 mg In 250 Sodium Chloride 0.9% 250 ml @ 250 mls/hr IVPB DAILY NONA Rx#:[id number] cefTRIAXone 2 gm In 50 50 Sodium Chloride 0.9% 50 ml @ 100 mls/hr IVPB Q24HR NONA Rx#:[id number] Blood Product 310 Rc As-1 Unit 310 [id number] Other: Voiding Method Toilet Toilet # Voids 2 - Labs CBC & Chem 7: 03/17/20 06:12 03/17/20 06:12 Labs: Abnormal Lab Results - Last 24 Hours (Table) 03/14/20 03/16/20 03/17/20 Range/Units 06:49 04:30 06:12 WBC 12.5 H (3.8-10.6) k/uL RBC 2.91 L (3.80-5.40) m/uL Hgb 8.1 L (11.4-16.0) gm/dL Hct 26.7 L (34.0-46.0) % MCHC 30.4 L (31.0-37.0) g/dL Plt Count 596 H (150-450) k/uL Neutrophils # 11.1 H (1.3-7.7) k/uL Lymphocytes # 0.6 L (1.0-4.8) k/uL Chloride (96-109) mmol/L Carbon Dioxide (21.6-31.8) mmol/L BUN/Creatinine Ratio (12.00-20.00) Ratio Glucose (70-110) mg/dL Calcium (8.7-10.3) mg/dL Iron 12 L (50-170) ug/dL Vitamin B12 1026.0 H (200.0-944.0) pg/mL Crossmatch See Detail 03/17/20 Range/Units 06:12 WBC (3.8-10.6) k/uL RBC (3.80-5.40) m/uL Hgb (11.4-16.0) gm/dL Hct (34.0-46.0) % MCHC (31.0-37.0) g/dL Plt Count (150-450) k/uL Neutrophils # (1.3-7.7) k/uL Lymphocytes # (1.0-4.8) k/uL Chloride 112 H (96-109) mmol/L Carbon Dioxide 19.3 L (21.6-31.8) mmol/L BUN/Creatinine Ratio 30.00 H (12.00-20.00) Ratio Glucose 248 H (70-110) mg/dL Calcium 8.3 L (8.7-10.3) mg/dL Iron (50-170) ug/dL Vitamin B12 (200.0-944.0) pg/mL Crossmatch Microbiology - Last 24 Hours (Table) 03/14/20 08:08 Blood Culture - Preliminary Blood No Growth after 72 hours
--- NOTE | 2020-03-17 11:57 | P.PN ---
Subjective Progress Note Date: 03/17/20 Principal diagnosis: Atypical pneumonia versus community-acquired pneumonia Left lower lobe pneumonia History of recent anemia with hemoglobin of 4.8 required blood transfusion, hemoglobin however in the ER stable of 8.2 Leukocytosis History of fibromyalgia 03/17/2020, patient seen eval examined during the rounds labs reviewed medications reviewed, patient doing relatively better cough congestion shortness breath is improved now, duplex ultrasound lower extremity negative, patient has been evaluated by surgical services hemoglobin is stable posttransfusion, no signs of overt bleeding 03/16/2020, patient seen eval examined during the rounds labs reviewed medications reviewed care plan discussed, remains on broad-spectrum antibiotics breathing treatments and IV steroids, labs from today reviewed reviewed, white cell count is improved no hemoglobin 6.7, patient to be transfused with 1 unit of packed RBC, check stools for occult blood, 03/15/2020, patient seen eval reexamined during the rounds labs reviewed medications reviewed Care plan discussed with the staff, blood cultures have been negative so far, white cell count coming down and now is 13,900, urine is positive for opiates and benzodiazepine, on 2 L oxygen saturation is 94%, This is a 69-year-old female who was seen eval examined, patient came into the hospital with multiple nonspecific complaints including pain and anxiety and some shortness of breath, x-ray shows groundglass attenuation however: 19 testing has been negative, computed tomography scan of the chest negative for pulmonary embolism, patient is admitted into the hospital for broad-spectrum antibiotics including IV Rocephin and Zithromax labs also significant for elevated WBC count Objective - Vital Signs Vital signs: Vital Signs Temp 97.6 F 03/17/20 08:40 Pulse 94 03/17/20 08:40 Resp 18 03/17/20 08:40 BP 146/74 03/17/20 08:40 Pulse Ox 96 03/17/20 08:40 Intake & Output 03/16/20 03/17/20 03/17/20 18:59 06:59 18:59 Intake Total 610 50 Balance 610 50 Intake: Intake, IV Titration 300 50 Amount Azithromycin 500 mg In 250 Sodium Chloride 0.9% 250 ml @ 250 mls/hr IVPB DAILY NONA Rx#:[id number] cefTRIAXone 2 gm In 50 50 Sodium Chloride 0.9% 50 ml @ 100 mls/hr IVPB Q24HR NONA Rx#:[id number] Blood Product 310 Rc As-1 Unit 310 [id number] Other: Voiding Method Toilet Toilet # Voids 2 - Exam - EENT Eyes: PERRLA Ears: bilateral: normal - Neck Carotids: bilateral: upstroke normal Thyroid: negative: normal size - Respiratory Respiratory: bilateral: CTA - Cardiovascular Heart sounds: normal: S1, S2 - Gastrointestinal General gastrointestinal: soft - Integumentary Integumentary: normal - Neurologic Neurologic: CNII-XII intact - Musculoskeletal Musculoskeletal: gait normal, generalized weakness, strength equal bilaterally - Psychiatric Psychiatric: A&O x's 3, appropriate affect, intact judgment & insight - Labs CBC & Chem 7: 03/17/20 06:12 03/17/20 06:12 Labs: Abnormal Lab Results - Last 24 Hours (Table) 03/14/20 03/16/20 03/17/20 Range/Units 06:49 04:30 06:12 WBC 12.5 H (3.8-10.6) k/uL RBC 2.91 L (3.80-5.40) m/uL Hgb 8.1 L (11.4-16.0) gm/dL Hct 26.7 L (34.0-46.0) % MCHC 30.4 L (31.0-37.0) g/dL Plt Count 596 H (150-450) k/uL Neutrophils # 11.1 H (1.3-7.7) k/uL Lymphocytes # 0.6 L (1.0-4.8) k/uL Chloride (96-109) mmol/L Carbon Dioxide (21.6-31.8) mmol/L BUN/Creatinine Ratio (12.00-20.00) Ratio Glucose (70-110) mg/dL Calcium (8.7-10.3) mg/dL Iron 12 L (50-170) ug/dL Vitamin B12 1026.0 H (200.0-944.0) pg/mL Crossmatch See Detail 03/17/20 Range/Units 06:12 WBC (3.8-10.6) k/uL RBC (3.80-5.40) m/uL Hgb (11.4-16.0) gm/dL Hct (34.0-46.0) % MCHC (31.0-37.0) g/dL Plt Count (150-450) k/uL Neutrophils # (1.3-7.7) k/uL Lymphocytes # (1.0-4.8) k/uL Chloride 112 H (96-109) mmol/L Carbon Dioxide 19.3 L (21.6-31.8) mmol/L BUN/Creatinine Ratio 30.00 H (12.00-20.00) Ratio Glucose 248 H (70-110) mg/dL Calcium 8.3 L (8.7-10.3) mg/dL Iron (50-170) ug/dL Vitamin B12 (200.0-944.0) pg/mL Crossmatch Microbiology - Last 24 Hours (Table) 03/14/20 08:08 Blood Culture - Preliminary Blood No Growth after 72 hours Assessment and Plan Assessment: Atypical pneumonia versus community-acquired pneumonia Left lower lobe pneumonia Worsening anemia status post transfusion 1 unit packed RBC History of recent anemia with hemoglobin of 4.8 required blood transfusion, hemoglobin however in the ER stable of 8.2 Leukocytosis History of fibromyalgia Plan: Agree with broad-spectrum antibiotics follow clinical course closely continue DVT peptic ulcer disease prophylaxis further recommendations pending plan of c are as per clinical response of the patient Status post transfusion with 1 unit of packed RBC evaluation for chronic anemia deferred to primary service expertise Time with Patient: Greater than 30
[2020-03-17] MEDS: HEPARIN SODIUM,PORCINE 5,000 UNIT/ML 1 ML VIAL SQ SCH ×2 (17:23→23:30)
[2020-03-17] MEDS: AMITRIPTYLINE HCL 50 MG TAB PO SCH (20:40)
--- NOTE | 2020-03-17 23:09 | P.PN ---
Subjective Progress Note Date: 03/17/20 Principal diagnosis: Chronic anemia with pneumonia This is a history and physical/progress note on a 6-year-old white female who is essentially admitted for significant problems related to pneumonia. She was discharged for chronic anemia of unknown origin. She has had multiple units of PRBC transfused over the last week. Objective - Vital Signs Vital signs: Vital Signs Temp 98.4 F 03/17/20 20:00 Pulse 99 03/17/20 20:00 Resp 20 03/17/20 20:00 BP 161/88 03/17/20 20:00 Pulse Ox 95 03/17/20 20:00 Intake & Output 03/17/20 03/17/20 03/18/20 06:59 18:59 06:59 Intake Total 50 50 Balance 50 50 Intake: Intake, IV Titration 50 50 Amount cefTRIAXone 2 gm In 50 50 Sodium Chloride 0.9% 50 ml @ 100 mls/hr IVPB Q24HR [facility] Rx#:[id number] Other: Voiding Method Toilet Toilet Toilet # Voids 2 4 - Constitutional General appearance: Present: average body habitus - EENT Eyes: Absent: abnormal pupil - Neck Neck: Absent: lymphadenopathy - Respiratory Respiratory: bilateral: diminished - Cardiovascular Rhythm: regular Heart sounds: normal: S1, S2 Abnormal Heart Sounds: Absent: S3 Gallop - Gastrointestinal General gastrointestinal: Present: soft. Absent: tenderness - Labs CBC & Chem 7: 03/17/20 06:12 03/17/20 06:12 Labs: Abnormal Lab Results - Last 24 Hours (Table) 03/17/20 03/17/20 Range/Units 06:12 06:12 WBC 12.5 H (3.8-10.6) k/uL RBC 2.91 L (3.80-5.40) m/uL Hgb 8.1 L (11.4-16.0) gm/dL Hct 26.7 L (34.0-46.0) % MCHC 30.4 L (31.0-37.0) g/dL Plt Count 596 H (150-450) k/uL Neutrophils # 11.1 H (1.3-7.7) k/uL Lymphocytes # 0.6 L (1.0-4.8) k/uL Chloride 112 H (96-109) mmol/L Carbon Dioxide 19.3 L (21.6-31.8) mmol/L BUN/Creatinine Ratio 30.00 H (12.00-20.00) Ratio Glucose 248 H (70-110) mg/dL Calcium 8.3 L (8.7-10.3) mg/dL Microbiology - Last 24 Hours (Table) 03/14/20 08:08 Blood Culture - Preliminary Blood No Growth after 72 hours Assessment and Plan (1) Anemia Current Visit: Yes Status: Acute Code(s): D64.9 - ANEMIA, UNSPECIFIED SNOMED Code(s): 610125170 (2) Fibromyalgia Current Visit: Yes Status: Acute Code(s): M79.7 - FIBROMYALGIA SNOMED Code(s): 837305595 (3) Pneumonia Current Visit: Yes Status: Acute Code(s): J18.9 - PNEUMONIA, UNSPECIFIED ORGANISM SNOMED Code(s): 134084646 (4) Hypertension Current Visit: No Status: Acute Code(s): I10 - ESSENTIAL (PRIMARY) HYPERTENSION SNOMED Code(s): 99471984 Plan: Appreciate multiple consultants input. Check CBC and CMP in a.m. Continue current antibiotic treatment. See orders otherwise Time with Patient: Greater than 30
--- NOTE | 2020-03-18 02:03 | PN ---
PROGRESS NOTE DATE OF SERVICE: 03/17/2020 REASON FOR FOLLOWUP: Pneumonia. INTERVAL HISTORY: The patient is currently afebrile. The patient is breathing comfortably on room air. The patient denies having any chest pain or shortness of breath or cough. No nausea, no vomiting. No abdominal pain or diarrhea. PHYSICAL EXAMINATION: Blood pressure 144/77, pulse of 93, temperature 98. She is 95% on room air. General description is an elderly female lying in bed in no distress. RESPIRATORY SYSTEM: Unlabored breathing, clear to auscultation anteriorly. HEART: S1, S2. Regular rate and rhythm. ABDOMEN: Soft, no tenderness. LABS: Hemoglobin 8.1, white count 12.5, BUN of 24, creatinine 0.8. Blood culture negative. DIAGNOSTIC IMPRESSION AND PLAN: Patient presented to the hospital with shortness of breath concern for possible pneumonia. She has been ruled out for COVID. Currently being treated with Zithromax, to continue and monitor clinical course closely. MMODL / IJN: [id number] /
[2020-03-18] MEDS: LEVOTHYROXINE 100 MCG TAB PO SCH (05:34)
[2020-03-18 08:07] LABS: HCT 27.4 % (34.0-46.0); HGB 8.1 gm/dL (11.4-16.0); Hypochromasia Marked; MCH 27.5 pg (25.0-35.0); MCHC 29.7 g/dL (31.0-37.0); MCV 92.7 fL (80.0-100.0); Mean Platelet Volume 7.3; Platelet Count 613 k/uL (150-450); Poikilocytosis Marked; RBC 2.95 m/uL (3.80-5.40); RDW 15.4 % (11.5-15.5); WBC 12.7 k/uL (3.8-10.6)
[2020-03-18] MEDS: FERROUS SULFATE 325 MG TAB PO SCH ×2 (08:12→16:22)
[2020-03-18] MEDS: SERTRALINE 100 MG TAB PO SCH (08:12)
[2020-03-18] MEDS: amLODIPine 5 MG TAB PO SCH (08:13)
[2020-03-18] MEDS: AZITHROMYCIN 500 MG TAB PO SCH (08:13)
[2020-03-18] MEDS: PANTOPRAZOLE 40 MG/10 ML VIAL IVP SCH ×2 (08:13→21:01)
[2020-03-18] MEDS: lisinopriL 10 MG TAB PO SCH (08:13)
[2020-03-18] MEDS: HEPARIN SODIUM,PORCINE 5,000 UNIT/ML 1 ML VIAL SQ SCH ×3 (08:13→23:08)
[2020-03-18 11:34] LABS: African American GFR (CKD) 101.7 (60.0-200.0); Albumin 3.1 g/dL (3.80-4.90); Albumin/Globulin Ratio 1.48 (1.60-3.17); Anion Gap 7.7 mmol/L (4.00-12.00); BUN/Creat Ratio 25.71 Ratio (12.00-20.00); Calcium 8.2 mg/dL (8.7-10.3); Carbon Dioxide 20.3 mmol/L (21.6-31.8); Globulin 2.1 g/dL (1.6-3.3); Non-African American GFR(CKD) 87.8 (60.0-200.0); Potassium 4.3 mmol/L (3.5-5.5); Total Bilirubin 0.3 mg/dL (0.2-1.2); Total Protein 5.2 g/dL (6.2-8.2)
--- NOTE | 2020-03-18 13:05 | P.PN ---
Subjective Principal diagnosis: Chronic anemia with pneumonia This is a history and physical/progress note on a 69-year-old white female who is essentially admitted for significant problems related to pneumonia. She was discharged for chronic anemia of unknown origin. She has had multiple units of PRBC transfused over the last week. She still seems quite fatigued after going to use the bathroom. Objective - Vital Signs Vital signs: Vital Signs Temp 98.2 F 03/18/20 07:25 Pulse 98 03/18/20 07:25 Resp 20 03/18/20 07:25 BP 170/89 03/18/20 07:25 Pulse Ox 93 L 03/18/20 07:25 Intake & Output 03/17/20 03/18/20 03/18/20 18:59 06:59 18:59 Intake Total 50 850 Balance 50 850 Intake: Intake, IV Titration 50 Amount cefTRIAXone 2 gm In 50 Sodium Chloride 0.9% 50 ml @ 100 mls/hr IVPB Q24HR [facility] Rx#:[id number] Oral 850 Other: Voiding Method Toilet Toilet # Voids 4 2 1 - Constitutional General appearance: Present: average body habitus - EENT Eyes: Absent: abnormal pupil - Neck Neck: Absent: normal ROM - Respiratory Respiratory: bilateral: diminished - Cardiovascular Rhythm: regular Heart sounds: normal: S1, S2 Abnormal Heart Sounds: Absent: S3 Gallop - Gastrointestinal General gastrointestinal: Present: soft. Absent: tenderness - Psychiatric Psychiatric: Present: A&O x's 3 - Labs CBC & Chem 7: 03/18/20 07:07 03/18/20 07:07 Labs: Abnormal Lab Results - Last 24 Hours (Table) 03/18/20 03/18/20 Range/Units 07:07 07:07 WBC 12.7 H (3.8-10.6) k/uL RBC 2.95 L (3.80-5.40) m/uL Hgb 8.1 L (11.4-16.0) gm/dL Hct 27.4 L (34.0-46.0) % MCHC 29.7 L (31.0-37.0) g/dL Plt Count 613 H (150-450) k/uL Chloride 113 H (96-109) mmol/L Carbon Dioxide 20.3 L (21.6-31.8) mmol/L BUN/Creatinine Ratio 25.71 H (12.00-20.00) Ratio Glucose 131 H (70-110) mg/dL Calcium 8.2 L (8.7-10.3) mg/dL Alkaline Phosphatase 135 H (41-126) U/L Total Protein 5.2 L (6.2-8.2) g/dL Albumin 3.10 L (3.80-4.90) g/dL Albumin/Globulin Ratio 1.48 L (1.60-3.17) g/dL Microbiology - Last 24 Hours (Table) 03/14/20 08:08 Blood Culture - Preliminary Blood No Growth after 96 hours Assessment and Plan (1) Anemia Current Visit: Yes Status: Acute Code(s): D64.9 - ANEMIA, UNSPECIFIED SNOMED Code(s): 121143435 (2) Fibromyalgia Current Visit: Yes Status: Acute Code(s): M79.7 - FIBROMYALGIA SNOMED Code(s): 118549471 (3) Pneumonia Current Visit: Yes Status: Acute Code(s): J18.9 - PNEUMONIA, UNSPECIFIED ORGANISM SNOMED Code(s): 500041991 (4) Hypertension Current Visit: No Status: Acute Code(s): I10 - ESSENTIAL (PRIMARY) HYPERTENSION SNOMED Code(s): 88319994 Plan: Appreciate multiple consultants input. Check CBC and CMP in a.m. Continue current antibiotic treatment. See orders otherwise Increase activity and anticipate discharge in a.m.
--- NOTE | 2020-03-18 13:32 | P.PN ---
Subjective Progress Note Date: 03/18/20 Principal diagnosis: GI bleed Patient still short of breath. Some productive cough. Denies abdominal pain. No rectal bleeding or melena. Patient refusing endoscopy at this time. Hemoglobin remained stable. Objective - Vital Signs Vital signs: Vital Signs Temp 98.2 F 03/18/20 07:25 Pulse 98 03/18/20 07:25 Resp 20 03/18/20 07:25 BP 170/89 03/18/20 07:25 Pulse Ox 93 L 03/18/20 07:25 Intake & Output 03/17/20 03/18/20 03/18/20 18:59 06:59 18:59 Intake Total 50 850 Balance 50 850 Intake: Intake, IV Titration 50 Amount cefTRIAXone 2 gm In 50 Sodium Chloride 0.9% 50 ml @ 100 mls/hr IVPB Q24HR [facility] Rx#:[id number] Oral 850 Other: Voiding Method Toilet Toilet Toilet # Voids 4 2 1 - Exam Abdomen: Soft, nontender, nondistended - Labs CBC & Chem 7: 03/18/20 07:07 03/18/20 07:07 Labs: Abnormal Lab Results - Last 24 Hours (Table) 03/18/20 03/18/20 Range/Units 07:07 07:07 WBC 12.7 H (3.8-10.6) k/uL RBC 2.95 L (3.80-5.40) m/uL Hgb 8.1 L (11.4-16.0) gm/dL Hct 27.4 L (34.0-46.0) % MCHC 29.7 L (31.0-37.0) g/dL Plt Count 613 H (150-450) k/uL Chloride 113 H (96-109) mmol/L Carbon Dioxide 20.3 L (21.6-31.8) mmol/L BUN/Creatinine Ratio 25.71 H (12.00-20.00) Ratio Glucose 131 H (70-110) mg/dL Calcium 8.2 L (8.7-10.3) mg/dL Alkaline Phosphatase 135 H (41-126) U/L Total Protein 5.2 L (6.2-8.2) g/dL Albumin 3.10 L (3.80-4.90) g/dL Albumin/Globulin Ratio 1.48 L (1.60-3.17) g/dL Microbiology - Last 24 Hours (Table) 03/14/20 08:08 Blood Culture - Preliminary Blood No Growth after 96 hours Assessment and Plan (1) Anemia Narrative/Plan: Patient overall slowly improving. Continue close monitoring and care of the p atient's pneumonia. Patient insists she will not have the endoscopy during this hospital stay. Will plan upper and lower endoscopy next week. Current Visit: Yes Status: Acute Code(s): D64.9 - ANEMIA, UNSPECIFIED SNOMED Code(s): 872934514
[2020-03-18] MEDS: guaiFENesin-DM 100-10MG/5ML 10 ML CUP PO PRN ×2 (16:29→23:08)
--- NOTE | 2020-03-18 19:56 | P.PN ---
Subjective Progress Note Date: 03/18/20 Principal diagnosis: Atypical pneumonia versus community-acquired pneumonia Left lower lobe pneumonia History of recent anemia with hemoglobin of 4.8 required blood transfusion, hemoglobin however in the ER stable of 8.2 Leukocytosis History of fibromyalgia 03/18/2020, patient seen eval reexamined during the rounds labs reviewed medications reviewed, respiratory stent point patient has been doing well cuff congestion shortness breath slightly better now compared to yesterday, hemoglobin stable at 8.1, 03/17/2020, patient seen eval examined during the rounds labs reviewed medications reviewed, patient doing relatively better cough congestion shortness breath is improved now, duplex ultrasound lower extremity negative, patient has been evaluated by surgical services hemoglobin is stable posttransfusion, no signs of overt bleeding 03/16/2020, patient seen eval examined during the rounds labs reviewed medications reviewed care plan discussed, remains on broad-spectrum antibiotics breathing treatments and IV steroids, labs from today reviewed reviewed, white cell count is improved no hemoglobin 6.7, patient to be transfused with 1 unit of packed RBC, check stools for occult blood, 03/15/2020, patient seen eval reexamined during the rounds labs reviewed med ications reviewed Care plan discussed with the staff, blood cultures have been negative so far, white cell count coming down and now is 13,900, urine is positive for opiates and benzodiazepine, on 2 L oxygen saturation is 94%, This is a 69-year-old female who was seen eval examined, patient came into the hospital with multiple nonspecific complaints including pain and anxiety and some shortness of breath, x-ray shows groundglass attenuation however: 19 testing has been negative, computed tomography scan of the chest negative for pulmonary embolism, patient is admitted into the hospital for broad-spectrum antibiotics including IV Rocephin and Zithromax labs also significant for elevated WBC count Objective - Vital Signs Vital signs: Vital Signs Temp 98.2 F 03/18/20 14:00 Pulse 87 03/18/20 14:00 Resp 20 03/18/20 14:00 BP 173/82 03/18/20 14:00 Pulse Ox 90 L 03/18/20 14:00 Intake & Output 03/18/20 03/18/20 03/19/20 06:59 18:59 06:59 Intake Total 850 240 Balance 850 240 Intake: IV 240 0.9 240 Oral 850 Other: Voiding Method Toilet Toilet # Voids 2 1 - Exam - EENT Eyes: PERRLA Ears: bilateral: normal - Neck Carotids: bilateral: upstroke normal Thyroid: negative: normal size - Respiratory Respiratory: bilateral: CTA - Cardiovascular Heart sounds: normal: S1, S2 - Gastrointestinal General gastrointestinal: soft - Integumentary Integumentary: normal - Neurologic Neurologic: CNII-XII intact - Musculoskeletal Musculoskeletal: gait normal, generalized weakness, strength equal bilaterally - Psychiatric Psychiatric: A&O x's 3, appropriate affect, intact judgment & insight - Labs CBC & Chem 7: 03/18/20 07:07 03/18/20 07:07 Labs: Abnormal Lab Results - Last 24 Hours (Table) 03/18/20 03/18/20 Range/Units 07:07 07:07 WBC 12.7 H (3.8-10.6) k/uL RBC 2.95 L (3.80-5.40) m/uL Hgb 8.1 L (11.4-16.0) gm/dL Hct 27.4 L (34.0-46.0) % MCHC 29.7 L (31.0-37.0) g/dL Plt Count 613 H (150-450) k/uL Chloride 113 H (96-109) mmol/L Carbon Dioxide 20.3 L (21.6-31.8) mmol/L BUN/Creatinine Ratio 25.71 H (12.00-20.00) Ratio Glucose 131 H (70-110) mg/dL Calcium 8.2 L (8.7-10.3) mg/dL Alkaline Phosphatase 135 H (41-126) U/L Total Protein 5.2 L (6.2-8.2) g/dL Albumin 3.10 L (3.80-4.90) g/dL Albumin/Globulin Ratio 1.48 L (1.60-3.17) g/dL Microbiology - Last 24 Hours (Table) 03/14/20 08:08 Blood Culture - Preliminary Blood No Growth after 96 hours Assessment and Plan Assessment: Atypical pneumonia versus community-acquired pneumonia Left lower lobe pneumonia Worsening anemia status post transfusion 1 unit packed RBC History of recent anemia with hemoglobin of 4.8 required blood transfusion, hemoglobin however in the ER stable of 8.2 Leukocytosis History of fibromyalgia Plan: Agree with broad-spectrum antibiotics follow clinical course closely continue DVT peptic ulcer disease prophylaxis further recommendations pending plan of care as per clinical response of the patient Status post transfusion with 1 unit of packed RBC evaluation for chronic anemia deferred to primary service expertise Time with Patient: Greater than 30
[2020-03-18] MEDS: AMITRIPTYLINE HCL 50 MG TAB PO SCH (21:01)
--- NOTE | 2020-03-19 02:09 | PN ---
PROGRESS NOTE DATE OF SERVICE: 03/18/2020 REASON FOR FOLLOWUP: Pneumonia. INTERVAL HISTORY: The patient is currently afebrile. She has been breathing comfortably. The patient denies having any chest pain or shortness of breath. Minimal cough. No nausea, no vomiting. No abdominal pain or diarrhea. PHYSICAL EXAMINATION: Blood pressure 169/87, pulse of 95, temperature 98.6. She is 90% on 4 L nasal cannula. General description is an elderly female up in the bed in no distress. RESPIRATORY SYSTEM: Unlabored breathing. Decreased intensity of breath sounds, no wheeze. HEART: S1, S2. Regular rate and rhythm. ABDOMEN: Soft, no tenderness. LABS: Hemoglobin 8.1, white count 12.7, BUN of 18, creatinine 0.7. DIAGNOSTIC IMPRESSION AND PLAN: The patient admitted to the hospital with increasing shortness of breath which is likely multifactorial with concern for possible pneumonia in this patient clinically responded to the Zithromax. However, seemed to have slight hypoxemia. We will repeat her x-ray and inflammatory markers tomorrow and monitor clinical course closely. MMODL / IJN: [id number] /
[2020-03-19 03:31] VITALS: TEMP 98.1
[2020-03-19] MEDS: LEVOTHYROXINE 100 MCG TAB PO SCH (05:46)
[2020-03-19] MEDS: guaiFENesin-DM 100-10MG/5ML 10 ML CUP PO PRN (06:08)
[2020-03-19 06:42] LABS: HCT 29.7 % (34.0-46.0); Hypochromasia Marked; MCH 28.1 pg (25.0-35.0); MCHC 30.4 g/dL (31.0-37.0); MCV 92.3 fL (80.0-100.0); Mean Platelet Volume 7.2; Platelet Count 640 k/uL (150-450); Poikilocytosis Moderate; RBC 3.21 m/uL (3.80-5.40); RDW 15.1 % (11.5-15.5); WBC 13.7 k/uL (3.8-10.6)
--- NOTE | 2020-03-19 08:19 | XR ---
EXAMINATION TYPE: XR chest 1V portable DATE OF EXAM: 03/19/2020 COMPARISON: Prior chest x-ray 03/15/2020 HISTORY: Pneumonia TECHNIQUE: Single frontal view of the chest is obtained. FINDINGS: There is been interval progression of bilateral airspace disease. Retrocardiac lucency con sistent with hiatal hernia and partial intrathoracic stomach. There is no evident pneumothorax or ple ural effusion. Heart is stable. IMPRESSION: Bilateral pneumonia has progressed.
[2020-03-19 08:41] VITALS: BP 169/82; PULSE 93; RESP 19
--- NOTE | 2020-03-19 08:42 | P.DS ---
Providers Date of admission: 03/14/20 09:06 Attending physician: Cody Aleman Consults: 03/14/20 10:51 Consult Physician Urgent Consulting Provider: Bhavik Steiner Consult Reason/Comments: pna Do you want consulting provider notified?: Yes 03/14/20 11:15 Consult Physician Urgent Consulting Provider: Abhijeet Blackburn Consult Reason/Comments: infection with antibiotic allergy Do you want consulting provider notified?: Yes 03/16/20 02:39 Consult Physician Routine Consulting Provider: Junaid Fuentes Consult Reason/Comments: subtance abuse Do you want consulting provider notified?: Yes 03/16/20 07:21 Consult Physician Urgent Consulting Provider: William Henry Consult Reason/Comments: anemia Do you want consulting provider notified?: Yes Primary care physician: Cody Aleman - Discharge Diagnosis(es) (1) Anemia Current Visit: Yes Status: Acute (2) Fibromyalgia Current Visit: Yes Status: Acute (3) Pneumonia Current Visit: Yes Status: Acute (4) Hypertension Current Visit: No Status: Acute Hospital Course: This is a discharge summary on a 69-year-old white female with known history of chronic anemia. The patient was admitted essentially for pneumonia and was stabilized. Multiple consultants were noted including surgery who will eventually end up doing colonoscopy on the patient due to her anemia and history of positive cardiac activity. The patient is stable from my standpoint and once cleared by consultants, will be discharged in stable condition to follow-up with me in about 3-5 days. Patient Condition at Discharge: Stable Plan - Discharge Summary Discharge Rx Participant: No New Discharge Prescriptions: New Ferrous Sulfate [Iron (65 MG Elemental)] 325 mg PO BID-W/MEALS #60 tab guaiFENesin-DM 100-10MG/5ML [Robitussin DM] 10 ml PO Q6H PRN #200 ml PRN Reason: Cough Azithromycin [Zithromax] 500 mg PO DAILY #3 tab Continue Sertraline [Zoloft] 150 mg PO DAILY lisinopriL [Zestril] 10 mg PO DAILY rOPINIRole HCL [Requip] 1 mg PO TID Levothyroxine Sodium 200 mcg PO DAILY Cyclobenzaprine [Flexeril] 10 mg PO TID PRN PRN Reason: Muscle Spasm amLODIPine [Norvasc] 5 mg PO DAILY Amitriptyline HCl [Elavil] 50 mg PO HS Sennosides [Senna] 17.2 mg PO HS PRN PRN Reason: Constipation Omeprazole [PriLOSEC] 20 mg PO AC-BRKFST #90 cap Aspirin 81 mg PO BID 17 Days #34 chewable Discharge Medication List Sertraline [Zoloft] 150 mg PO DAILY 08/23/14 [History] lisinopriL [Zestril] 10 mg PO DAILY 08/12/16 [History] Amitriptyline HCl [Elavil] 50 mg PO HS 03/10/20 [History] Cyclobenzaprine [Flexeril] 10 mg PO TID PRN 03/10/20 [History] Levothyroxine Sodium 200 mcg PO DAILY 03/10/20 [History] Sennosides [Senna] 17.2 mg PO HS PRN 03/10/20 [History] amLODIPine [Norvasc] 5 mg PO DAILY 03/10/20 [History] rOPINIRole HCL [Requip] 1 mg PO TID 03/10/20 [History] Omeprazole [PriLOSEC] 20 mg PO AC-BRKFST #90 cap 03/11/20 [Rx] Aspirin 81 mg PO BID 17 Days #34 chewable 03/12/20 [Rx] Azithromycin [Zithromax] 500 mg PO DAILY #3 tab 03/19/20 [Rx] Ferrous Sulfate [Iron (65 MG Elemental)] 325 mg PO BID-W/MEALS #60 tab 03/19/20 [Rx] guaiFENesin-DM 100-10MG/5ML [Robitussin DM] 10 ml PO Q6H PRN #200 ml 03/19/20 [Rx] Follow up Appointment(s)/Referral(s): Cody Aleman MD [Primary Care Provider] - 3 Days Discharge Disposition: HOME SELF-CARE
[2020-03-19] MEDS: PANTOPRAZOLE 40 MG/10 ML VIAL IVP SCH (09:44)
[2020-03-19] MEDS: HEPARIN SODIUM,PORCINE 5,000 UNIT/ML 1 ML VIAL SQ SCH (09:44)
[2020-03-19] MEDS: FERROUS SULFATE 325 MG TAB PO SCH (09:45)
[2020-03-19] MEDS: AZITHROMYCIN 500 MG TAB PO SCH (09:45)
[2020-03-19] MEDS: amLODIPine 5 MG TAB PO SCH (09:45)
[2020-03-19] MEDS: SERTRALINE 100 MG TAB PO SCH (09:45)
[2020-03-19] MEDS: lisinopriL 10 MG TAB PO SCH (09:45)
[2020-03-19 10:56] LABS: Albumin 3.5 g/dL (3.80-4.90); Albumin/Globulin Ratio 1.52 (1.60-3.17); Anion Gap 8.3 mmol/L (4.00-12.00); BUN/Creat Ratio 23.33 Ratio (12.00-20.00); C Reactive Protein 20.5 mg/dL (0.0-0.8); Calcium 8.4 mg/dL (8.7-10.3); Carbon Dioxide 21.7 mmol/L (21.6-31.8); Globulin 2.3 g/dL (1.6-3.3); Non-African American GFR(CKD) 92.4 (60.0-200.0); Potassium 4.3 mmol/L (3.5-5.5); Total Bilirubin 0.5 mg/dL (0.3-1.2); Total Protein 5.8 g/dL (6.2-8.2)
--- NOTE | 2020-03-19 11:34 | P.PN ---
Subjective Progress Note Date: 03/19/20 Principal diagnosis: Atypical pneumonia versus community-acquired pneumonia Left lower lobe pneumonia History of recent anemia with hemoglobin of 4.8 required blood transfusion, hemoglobin however in the ER stable of 8.2 Leukocytosis History of fibromyalgia 03/19/2020, patient seen and evaluated examined doing well no respiratory issues are present shortness of breath has been stable, patient is being discharged at this point of time, agree with discharge planning follow-up as outpatient 03/18/2020, patient seen eval reexamined during the rounds labs reviewed medications reviewed, respiratory standpoint patient has been doing well cough congestion shortness breath slightly better now compared to yesterday, hemoglobin stable at 8.1, 03/17/2020, patient seen eval examined during the rounds labs reviewed medications reviewed, patient doing relatively better cough congestion shortness breath is improved now, duplex ultrasound lower extremity negative, patient has been evaluated by surgical services hemoglobin is stable posttransfusion, no signs of overt bleeding 03/16/2020, patient seen eval examined during the rounds labs reviewed medications reviewed care plan discussed, remains on broad-spectrum antibiotics breathing treatments and IV steroids, labs from today reviewed reviewed, white cell count is improved no hemoglobin 6.7, patient to be transfused with 1 unit of packed RBC, check stools for occult blood, 03/15/2020, patient seen eval reexamined during the rounds labs reviewed medications reviewed Care plan discussed with the staff, blood cultures have been negative so far, white cell count coming down and now is 13,900, urine is positive for opiates and benzodiazepine, on 2 L oxygen saturation is 94%, This is a 69-year-old female who was seen eval examined, patient came into the hospital with multiple nonspecific complaints including pain and anxiety and some shortness of breath, x-ray shows groundglass attenuation however: 19 testing has been negative, computed tomography scan of the chest negative for pulmonary embolism, patient is admitted into the hospital for broad-spectrum antibiotics including IV Rocephin and Zithromax labs also significant for elevated WBC count Objective - Vital Signs Vital signs: Vital Signs Temp 98.1 F 03/19/20 08:00 Pulse 93 03/19/20 08:00 Resp 19 03/19/20 08:00 BP 169/82 03/19/20 08:00 Pulse Ox 92 L 03/19/20 08:00 Intake & Output 03/18/20 03/19/20 03/19/20 18:59 06:59 18:59 Intake Total 240 500 Balance 240 500 Intake: IV 240 0.9 240 Oral 500 Other: Voiding Method Toilet Toilet # Voids 1 2 - Exam - EENT Eyes: PERRLA Ears: bilateral: normal - Neck Carotids: bilateral: upstroke normal Thyroid: negative: normal size - Respiratory Respiratory: bilateral: CTA - Cardiovascular Heart sounds: normal: S1, S2 - Gastrointestinal General gastrointestinal: soft - Integumentary Integumentary: normal - Neurologic Neurologic: CNII-XII intact - Musculoskeletal Musculoskeletal: gait normal, generalized weakness, strength equal bilaterally - Psychiatric Psychiatric: A&O x's 3, appropriate affect, intact judgment & insight - Labs CBC & Chem 7: 03/19/20 06:13 03/19/20 06:13 Labs: Abnormal Lab Results - Last 24 Hours (Table) 03/18/20 03/19/20 03/19/20 Range/Units 07:07 06:13 06:13 WBC 13.7 H (3.8-10.6) k/uL RBC 3.21 L (3.80-5.40) m/uL Hgb 9.0 L (11.4-16.0) gm/dL Hct 29.7 L (34.0-46.0) % MCHC 30.4 L (31.0-37.0) g/dL Plt Count 640 H (150-450) k/uL D-Dimer (<0.60) mg/L FEU Chloride 113 H 110 H (96-109) mmol/L Carbon Dioxide 20.3 L (21.6-31.8) mmol/L BUN/Creatinine Ratio 25.71 H 23.33 H (12.00-20.00) Ratio Glucose 131 H 142 H (70-110) mg/dL Calcium 8.2 L 8.4 L (8.7-10.3) mg/dL Alkaline Phosphatase 135 H 158 H (41-126) U/L Lactate Dehydrogenase 284 H (120-246) U/L C-Reactive Protein 20.5 H (0.0-0.8) mg/dL Total Protein 5.2 L 5.8 L (6.2-8.2) g/dL Albumin 3.10 L 3.50 L (3.80-4.90) g/dL Albumin/Globulin Ratio 1.48 L 1.52 L (1.60-3.17) g/dL 03/19/20 Range/Units 06:13 WBC (3.8-10.6) k/uL RBC (3.80-5.40) m/uL Hgb (11.4-16.0) gm/dL Hct (34.0-46.0) % MCHC (31.0-37.0) g/dL Plt Count (150-450) k/uL D-Dimer 2.40 H (<0.60) mg/L FEU Chloride (96-109) mmol/L Carbon Dioxide (21.6-31.8) mmol/L BUN/Creatinine Ratio (12.00-20.00) Ratio Glucose (70-110) mg/dL Calcium (8.7-10.3) mg/dL Alkaline Phosphatase (41-126) U/L Lactate Dehydrogenase (120-246) U/L C-Reactive Protein (0.0-0.8) mg/dL Total Protein (6.2-8.2) g/dL Albumin (3.80-4.90) g/dL Albumin/Globulin Ratio (1.60-3.17) g/dL Microbiology - Last 24 Hours (Table) 03/14/20 08:08 Blood Culture - Preliminary Blood No Growth after 120 hours Assessment and Plan Assessment: Atypical pneumonia versus community-acquired pneumonia Left lower lobe pneumonia Worsening anemia status post transfusion 1 unit packed RBC History of recent anemia with hemoglobin of 4.8 required blood transfusion, hemoglobin however in the ER stable of 8.2 Leukocytosis History of fibromyalgia Plan: Agree with broad-spectrum antibiotics follow clinical course closely continue DVT peptic ulcer disease prophylaxis further recommendations pending plan of care as per clinical response of the patient Status post transfusion with 1 unit of packed RBC evaluation for chronic anemia deferred to primary service expertise Time with Patient: Greater than 30
--- NOTE | 2020-03-19 12:16 | P.PN ---
Subjective Progress Note Date: 03/19/20 Principal diagnosis: GI bleed Patient says her breathing is improved. No evident GI bleed currently. Tolerating diet. Hemoglobin 9.0. Objective - Vital Signs Vital signs: Vital Signs Temp 98.1 F 03/19/20 08:00 Pulse 93 03/19/20 08:00 Resp 19 03/19/20 08:00 BP 169/82 03/19/20 08:00 Pulse Ox 92 L 03/19/20 08:00 Intake & Output 03/18/20 03/19/20 03/19/20 18:59 06:59 18:59 Intake Total 240 500 Balance 240 500 Intake: IV 240 0.9 240 Oral 500 Other: Voiding Method Toilet Toilet Toilet # Voids 1 2 - Exam Abdomen: Soft, nontender, nondistended - Labs CBC & Chem 7: 03/19/20 06:13 03/19/20 06:13 Labs: Abnormal Lab Results - Last 24 Hours (Table) 03/19/20 03/19/20 03/19/20 Range/Units 06:13 06:13 06:13 WBC 13.7 H (3.8-10.6) k/uL RBC 3.21 L (3.80-5.40) m/uL Hgb 9.0 L (11.4-16.0) gm/dL Hct 29.7 L (34.0-46.0) % MCHC 30.4 L (31.0-37.0) g/dL Plt Count 640 H (150-450) k/uL D-Dimer 2.40 H (<0.60) mg/L FEU Chloride 110 H (96-109) mmol/L BUN/Creatinine Ratio 23.33 H (12.00-20.00) Ratio Glucose 142 H (70-110) mg/dL Calcium 8.4 L (8.7-10.3) mg/dL Alkaline Phosphatase 158 H (41-126) U/L Lactate Dehydrogenase 284 H (120-246) U/L C-Reactive Protein 20.5 H (0.0-0.8) mg/dL Total Protein 5.8 L (6.2-8.2) g/dL Albumin 3.50 L (3.80-4.90) g/dL Albumin/Globulin Ratio 1.52 L (1.60-3.17) g/dL Microbiology - Last 24 Hours (Table) 03/14/20 08:08 Blood Culture - Preliminary Blood No Growth after 120 hours Assessment and Plan (1) Anemia Narrative/Plan: Patient doing well at this time. Continue antibiotics for suspected pneumonia. Plan outpatient upper and lower endoscopy. Monitor hemoglobin. Current Visit: Yes Status: Acute Code(s): D64.9 - ANEMIA, UNSPECIFIED SNOMED Code(s): 137829320
== END 2020-03-19 16:09 | disposition home or self-care (01) | DRG 193 ==
LOC: EC 06:10 → 6NMEDSUR 09:06
PROVIDERS: ADMIT Family Medicine; ATTEND Family Medicine
PROC: 30233N1 Transfusion of Nonautologous Red Blood Cells into Peripheral Vein, Percutaneous Approach (ICD-10-PCS; principal; 2020-03-14)
DX: J18.9 Pneumonia, unspecified organism (principal); G92 Toxic encephalopathy; D64.9 Anemia, unspecified; F41.9 Anxiety disorder, unspecified; F32.9 Major depressive disorder, single episode, unspecified; I10 Essential (primary) hypertension; Z20.828 Contact with and (suspected) exposure to other viral communicable diseases; Z96.652 Presence of left artificial knee joint; M79.7 Fibromyalgia; E03.9 Hypothyroidism, unspecified; Z79.899 Other long term (current) drug therapy; Z79.82 Long term (current) use of aspirin; Z79.890 Hormone replacement therapy; Z88.0 Allergy status to penicillin; Z88.2 Allergy status to sulfonamides; Z88.8 Allergy status to other drugs, medicaments and biological substances; Z90.710 Acquired absence of both cervix and uterus
CPT/HCPCS: 36415; 70450; 71045; 71046; 71275; 80048; 80053; 80306; 81001; 82607; 82728; 82746; 83540; 83605; 83615; 83735; 83880; 84145; 84484; 85025; 85027; 85379; 85730; 86140; 86850; 86900; 86901; 86920; 87040; 87449; 87635; 93005; 93970; 96361; 96365; 96367; 96375; 99285

== ENCOUNTER 2020-03-25 10:37 | Inpatient (IN) | payer MEDICARE ==
--- NOTE | 2020-03-25 11:21 | ED ---
SOB HPI - General Source: patient, RN notes reviewed Mode of arrival: wheelchair Limitations: no limitations <Endy Gar - Last Filed: 03/25/20 12:32> <Shirley Treadwell - Last Filed: 03/31/20 19:30> - General Chief Complaint: Shortness of Breath Stated Complaint: SOB Low O2 Time Seen by Provider: 03/25/20 10:46 - History of Present Illness Initial Comments: This is a 69-year-old female presents emergency Department from Dr. Aleman's office chief complaint of shortness of breath. Patient was discharged 6 days ago on home oxygen 4 L for hypoxia secondary to pneumonia and chronic anemia. Patient does have some mild underlying to be they to her smoking 30 years ago. Patient states that she has steady decline in her last 2-3 days states that she's been up all night unable to breathe. Patient reports no fevers or chills she states she has some chest tightness no chest pain. Denies any current headache. Patient denies any sick contacts recently. Patient has no GI symptoms including nausea and diarrhea constipationor leg swelling. (Endy Gar) - Related Data Home Medications Medication Instructions Recorded Confirmed Sertraline [Zoloft] 150 mg PO DAILY 08/23/14 03/25/20 lisinopriL [Zestril] 10 mg PO DAILY 08/12/16 03/25/20 Amitriptyline HCl [Elavil] 50 mg PO HS 03/10/20 03/25/20 Cyclobenzaprine [Flexeril] 10 mg PO TID PRN 03/10/20 03/25/20 Levothyroxine Sodium 200 mcg PO DAILY 03/10/20 03/25/20 Sennosides [Senna] 17.2 mg PO HS PRN 03/10/20 03/25/20 amLODIPine [Norvasc] 5 mg PO DAILY 03/10/20 03/25/20 rOPINIRole HCL [Requip] 1 mg PO TID 03/10/20 03/25/20 Previous Rx's Medication Instructions Recorded Omeprazole [PriLOSEC] 20 mg PO AC-BRKFST #90 cap 03/11/20 Aspirin 81 mg PO BID 17 Days #34 chewable 03/12/20 Azithromycin [Zithromax] 500 mg PO DAILY #3 tab 03/19/20 Ferrous Sulfate [Iron (65 MG 325 mg PO BID-W/MEALS #60 tab 03/19/20 Elemental)] guaiFENesin-DM 100-10MG/5ML 10 ml PO Q6H PRN #200 ml 03/19/20 [Robitussin DM] Allergies Allergy/AdvReac Type Severity Reaction Status Date / Time meperidine HCl [From Demerol] Allergy Rash/Hives Verified 03/25/20 11:11 Penicillins Allergy Rash/Hives Verified 03/25/20 11:11 Sulfa (Sulfonamide Allergy Rash/Hives Verified 03/25/20 11:11 Antibiotics) Review of Systems ROS Other: All systems not noted in ROS Statement are negative. <Endy Gar - Last Filed: 03/25/20 12:32> ROS Other: All systems not noted in ROS Statement are negative. <Shirley Treadwell - Last Filed: 03/31/20 19:30> ROS Statement: Those systems with pertinent positive or pertinent negative responses have been documented in the HPI. Past Medical History Past Medical History: Hypertension, Thyroid Disorder Additional Past Medical History / Comment(s): chronic ANEMIA- pt gets iron trans. every 8-12 weeks for over 12 years. Pt has a hx of a sm ulcer History of Any Multi-Drug Resistant Organisms: None Reported Past Surgical History: Hysterectomy, Joint Replacement, Orthopedic Surgery Additional Past Surgical History / Comment(s): LEFT KNEE ARTHROSCOPIC, carpal tunnel, left knee replacement, laser eye surgery Past Anesthesia/Blood Transfusion Reactions: No Reported Reaction Past Psychological History: No Psychological Hx Reported Smoking Status: Former smoker Past Alcohol Use History: None Reported Past Drug Use History: None Reported - Past Family History Mother Family Medical History: No Reported History <Endy Gar - Last Filed: 03/25/20 12:32> General Exam Limitations: no limitations General appearance: alert, in no apparent distress, in distress (Severe respiratory distress) Head exam: Present: atraumatic, normocephalic, normal inspection Eye exam: Present: normal appearance, PERRL, EOMI. Absent: scleral icterus, conjunctival injection, periorbital swelling ENT exam: Present: normal exam, normal oropharynx, mucous membranes moist Neck exam: Present: normal inspection. Absent: tenderness, meningismus, lymphadenopathy Respiratory exam: Present: respiratory distress, decreased breath sounds. Absent: normal lung sounds bilaterally, wheezes, rales, rhonchi, stridor Cardiovascular Exam: Present: regular rate, normal rhythm, normal heart sounds. Absent: systolic murmur, diastolic murmur, rubs, gallop, clicks GI/Abdominal exam: Present: soft, normal bowel sounds. Absent: distended, tenderness, guarding, rebound, rigid Extremities exam: Absent: pedal edema Neurological exam: Present: alert, oriented X3 Skin exam: Present: warm, dry, intact, normal color. Absent: rash <Endy Gar - Last Filed: 03/25/20 12:32> Course <Shirley Treadwell - Last Filed: 03/31/20 19:30> Vital Signs 03/25/20 03/25/20 03/25/20 10:40 11:50 12:00 Temperature 98.6 F 98.7 F Pulse Rate 83 85 92 Respiratory 24 26 H 18 Rate Blood Pressure 126/79 129/53 115/83 O2 Sat by Pulse 76 L 89 L 90 L Oximetry 03/25/20 03/25/20 03/25/20 14:00 15:00 16:00 Temperature 98.3 F Pulse Rate 102 H 101 H 98 Respiratory 14 14 14 Rate Blood Pressure 181/89 171/89 176/97 O2 Sat by Pulse 95 97 96 Oximetry 03/25/20 03/25/20 03/25/20 17:00 18:00 18:48 Temperature Pulse Rate 98 92 92 Respiratory 14 18 18 Rate Blood Pressure 158/72 144/81 151/79 O2 Sat by Pulse 94 L 95 92 L Oximetry 03/25/20 03/25/20 20:00 22:14 Temperature Pulse Rate 80 80 Respiratory 16 18 Rate Blood Pressure 133/75 134/76 O2 Sat by Pulse 94 L 98 Oximetry - Reevaluation(s) Reevaluation #1: 03/25/20 14:[address] Steiner (Shirley Treadwell) Reevaluation #2: 03/25/20 14:[address] Aleman (Shirley Treadwell) Procedures - Intubation Sedative: Etomidate Mg Given: 20 Paralytic: Rocuronium Mg Given: 50 Laryngoscope: fiber optic video scope Size: 3 ET Tube Size: 7.5 ET Tube Uncuffed: No Tube Secured Depth (cm): 23 Tube Secured Location: teeth Tube Placement Confirmation: visualized tube passing through cords, equal breath sounds bilaterally, no breath sounds over epigastrium, confirmation by capnometry Patient Tolerated Procedure: well, no complications <Shirley Treadwell - Last Filed: 03/31/20 19:30> Medical Decision Making - Lab Data Result diagrams: 03/25/20 11:28 03/25/20 11:28 <Endy Gar - Last Filed: 03/25/20 12:32> - Lab Data Result diagrams: 03/31/20 04:12 03/31/20 04:12 <EbenShirley Tracey - Last Filed: 03/31/20 19:30> - Medical Decision Making 69-year-old female presented for respiratory distress. Patient was placed on BiPAP. Patient's x-ray shows no infiltrate related to covid 19. Case discussed with Dr. Aleman will be admitted for further treatment and management patient will have consult to pulmonology and infectious disease (Endy Gar) Patient on bipap and becomes increasingly confused/agitated therefore intubation is necessary. Procedure performed by myself and post intubation chest xray obtained. Discussed case with Dr. Aleman and Dr. Steiner. She remained in critical condition. (Shirley Treadwell) - Lab Data Lab Results 03/25/20 03/25/20 03/25/20 Range/Units 11:20 11:28 11:28 WBC 11.5 H (3.8-10.6) k/uL RBC 3.35 L (3.80-5.40) m/uL Hgb 9.2 L (11.4-16.0) gm/dL Hct 30.2 L (34.0-46.0) % MCV 90.2 (80.0-100.0) fL MCH 27.6 (25.0-35.0) pg MCHC 30.5 L (31.0-37.0) g/dL RDW 16.7 H (11.5-15.5) % Plt Count 349 (150-450) k/uL MPV 7.9 Neutrophils % (Manual) 91 % Band Neuts % (Manual) 1 % Lymphocytes % (Manual) 4 % Monocytes % (Manual) 4 % Myelocytes % 1 % Neutrophils # (Manual) 10.50 H (1.3-7.7) k/uL Lymphocytes # (Manual) 0.46 L (1.0-4.8) k/uL Monocytes # (Manual) 0.46 (0-1.0) k/uL Myelocytes # (Manual) 0.12 H (0) k/uL Nucleated RBCs 0 (0-0) /100 WBC Manual Slide Review Performed Hypochromasia Marked Poikilocytosis Moderate Anisocytosis Slight PT 21.2 H (9.0-12.0) sec INR 2.2 H (<1.2) APTT 29.1 (22.0-30.0) sec Sodium (137-145) mmol/L Potassium (3.5-5.1) mmol/L Chloride (98-107) mmol/L Carbon Dioxide (22-30) mmol/L Anion Gap mmol/L BUN (7-17) mg/dL Creatinine (0.52-1.04) mg/dL Est GFR (CKD-EPI)AfAm (>60 ml/min/1.73 sqM) Est GFR (CKD-EPI)NonAf (>60 ml/min/1.73 sqM) Glucose (74-99) mg/dL Lactic Ac Sepsis Rflx Plasma Lactic Acid Israel (0.7-2.0) mmol/L Calcium (8.4-10.2) mg/dL Magnesium (1.6-2.3) mg/dL Ferritin (10.0-291.0) ng/mL Total Bilirubin (0.2-1.3) mg/dL AST (14-36) U/L ALT (4-34) U/L Alkaline Phosphatase (38-126) U/L Lactate Dehydrogenase (313-618) U/L Troponin I (0.000-0.034) ng/mL C-Reactive Protein (<10.0) mg/L NT-Pro-B Natriuret Pep pg/mL Total Protein (6.3-8.2) g/dL Albumin (3.5-5.0) g/dL Amylase (30-110) U/L Lipase (23-300) U/L Coronavirus (PCR) (Not Detectd) Blood Type A Positive Blood Type Recheck A Pos Bld Type Recheck Status No Antibody Screen NEGATIVE Crossmatch See Detail Spec Expiration Date 03/28/2020231903/25/20 03/25/20 03/25/20 Range/Units 11:28 11:28 11:28 WBC (3.8-10.6) k/uL RBC (3.80-5.40) m/uL Hgb (11.4-16.0) gm/dL Hct (34.0-46.0) % MCV (80.0-100.0) fL MCH (25.0-35.0) pg MCHC (31.0-37.0) g/dL RDW (11.5-15.5) % Plt Count (150-450) k/uL MPV Neutrophils % (Manual) % Band Neuts % (Manual) % Lymphocytes % (Manual) % Monocytes % (Manual) % Myelocytes % % Neutrophils # (Manual) (1.3-7.7) k/uL Lymphocytes # (Manual) (1.0-4.8) k/uL Monocytes # (Manual) (0-1.0) k/uL Myelocytes # (Manual) (0) k/uL Nucleated RBCs (0-0) /100 WBC Manual Slide Review Hypochromasia Poikilocytosis Anisocytosis PT (9.0-12.0) sec INR (<1.2) APTT (22.0-30.0) sec Sodium 141 (137-145) mmol/L Potassium 4.5 (3.5-5.1) mmol/L Chloride 106 (98-107) mmol/L Carbon Dioxide 22 (22-30) mmol/L Anion Gap 13 mmol/L BUN 22 H (7-17) mg/dL Creatinine 1.09 H (0.52-1.04) mg/dL Est GFR (CKD-EPI)AfAm 60 (>60 ml/min/1.73 sqM) Est GFR (CKD-EPI)NonAf 52 (>60 ml/min/1.73 sqM) Glucose 189 H (74-99) mg/dL Lactic Ac Sepsis Rflx Plasma Lactic Acid Israel 5.9 H* (0.7-2.0) mmol/L Calcium 7.9 L (8.4-10.2) mg/dL Magnesium 2.6 H (1.6-2.3) mg/dL Ferritin 58992.7 H (10.0-291.0) ng/mL Total Bilirubin 0.7 (0.2-1.3) mg/dL AST 4151 H (14-36) U/L ALT 1463 H (4-34) U/L Alkaline Phosphatase 173 H (38-126) U/L Lactate Dehydrogenase >81788 H (313-618) U/L Troponin I 0.062 H* (0.000-0.034) ng/mL C-Reactive Protein 261.3 H (<10.0) mg/L NT-Pro-B Natriuret Pep pg/mL Total Protein 6.1 L (6.3-8.2) g/dL Albumin 2.8 L (3.5-5.0) g/dL Amylase (30-110) U/L Lipase (23-300) U/L Coronavirus (PCR) (Not Detectd) Blood Type Blood Type Recheck Bld Type Recheck Status Antibody Screen Crossmatch Spec Expiration Date 03/25/20 03/25/20 03/25/20 Range/Units 11:28 11:34 11:48 WBC (3.8-10.6) k/uL RBC (3.80-5.40) m/uL Hgb (11.4-16.0) gm/dL Hct (34.0-46.0) % MCV (80.0-100.0) fL MCH (25.0-35.0) pg MCHC (31.0-37.0) g/dL RDW (11.5-15.5) % Plt Count (150-450) k/uL MPV Neutrophils % (Manual) % Band Neuts % (Manual) % Lymphocytes % (Manual) % Monocytes % (Manual) % Myelocytes % % Neutrophils # (Manual) (1.3-7.7) k/uL Lymphocytes # (Manual) (1.0-4.8) k/uL Monocytes # (Manual) (0-1.0) k/uL Myelocytes # (Manual) (0) k/uL Nucleated RBCs (0-0) /100 WBC Manual Slide Review Hypochromasia Poikilocytosis Anisocytosis PT (9.0-12.0) sec INR (<1.2) APTT (22.0-30.0) sec Sodium (137-145) mmol/L Potassium (3.5-5.1) mmol/L Chloride (98-107) mmol/L Carbon Dioxide (22-30) mmol/L Anion Gap mmol/L BUN (7-17) mg/dL Creatinine (0.52-1.04) mg/dL Est GFR (CKD-EPI)AfAm (>60 ml/min/1.73 sqM) Est GFR (CKD-EPI)NonAf (>60 ml/min/1.73 sqM) Glucose (74-99) mg/dL Lactic Ac Sepsis Rflx Plasma Lactic Acid Israel (0.7-2.0) mmol/L Calcium (8.4-10.2) mg/dL Magnesium (1.6-2.3) mg/dL Ferritin (10.0-291.0) ng/mL Total Bilirubin (0.2-1.3) mg/dL AST (14-36) U/L ALT (4-34) U/L Alkaline Phosphatase (38-126) U/L Lactate Dehydrogenase (313-618) U/L Troponin I (0.000-0.034) ng/mL C-Reactive Protein (<10.0) mg/L NT-Pro-B Natriuret Pep 4570 pg/mL Total Protein (6.3-8.2) g/dL Albumin (3.5-5.0) g/dL Amylase 86 (30-110) U/L Lipase 178 (23-300) U/L Coronavirus (PCR) Detected A (Not Detectd) Blood Type Blood Type Recheck Bld Type Recheck Status Antibody Screen Crossmatch Spec Expiration Date 03/25/20 Range/Units 11:58 WBC (3.8-10.6) k/uL RBC (3.80-5.40) m/uL Hgb (11.4-16.0) gm/dL Hct (34.0-46.0) % MCV (80.0-100.0) fL MCH (25.0-35.0) pg MCHC (31.0-37.0) g/dL RDW (11.5-15.5) % Plt Count (150-450) k/uL MPV Neutrophils % (Manual) % Band Neuts % (Manual) % Lymphocytes % (Manual) % Monocytes % (Manual) % Myelocytes % % Neutrophils # (Manual) (1.3-7.7) k/uL Lymphocytes # (Manual) (1.0-4.8) k/uL Monocytes # (Manual) (0-1.0) k/uL Myelocytes # (Manual) (0) k/uL Nucleated RBCs (0-0) /100 WBC Manual Slide Review Hypochromasia Poikilocytosis Anisocytosis PT (9.0-12.0) sec INR (<1.2) APTT (22.0-30.0) sec Sodium (137-145) mmol/L Potassium (3.5-5.1) mmol/L Chloride (98-107) mmol/L Carbon Dioxide (22-30) mmol/L Anion Gap mmol/L BUN (7-17) mg/dL Creatinine (0.52-1.04) mg/dL Est GFR (CKD-EPI)AfAm (>60 ml/min/1.73 sqM) Est GFR (CKD-EPI)NonAf (>60 ml/min/1.73 sqM) Glucose (74-99) mg/dL Lactic Ac Sepsis Rflx Y Plasma Lactic Acid Israel (0.7-2.0) mmol/L Calcium (8.4-10.2) mg/dL Magnesium (1.6-2.3) mg/dL Ferritin (10.0-291.0) ng/mL Total Bilirubin (0.2-1.3) mg/dL AST (14-36) U/L ALT (4-34) U/L Alkaline Phosphatase (38-126) U/L Lactate Dehydrogenase (313-618) U/L Troponin I (0.000-0.034) ng/mL C-Reactive Protein (<10.0) mg/L NT-Pro-B Natriuret Pep pg/mL Total Protein (6.3-8.2) g/dL Albumin (3.5-5.0) g/dL Amylase (30-110) U/L Lipase (23-300) U/L Coronavirus (PCR) (Not Detectd) Blood Type Blood Type Recheck Bld Type Recheck Status Antibody Screen Crossmatch Spec Expiration Date - EKG Data EKG Comments: EKG demonstrates a sinus tachycardia with a ventricular rate of 103. ME interval 146. QRS 134. QTC of 513. No acute ST segment elevations (Shirley Treadwell) Critical Care Time Critical Care Time: Yes Total Critical Care Time: 35 <Endy Gar - Last Filed: 03/25/20 12:32> Critical Care Time: Total 35 minutes of critical care time were used initially evaluate the patient, reviewed past medical history, according labs EKG and chest x-ray. Patient was found to be in acute respiratory distress syndrome patient was placed on a nonrebreather prior to applying BiPAP. Patient did slowly improve on BiPAP. Patient is positive for covid patient's chest x-ray shows worsening diffuse infiltrates. Patient is requiring significant vaccination, patient is positive for: Reviewed. Patient be admitted for further management and treatment. (Endy Gar) Disposition <Endy Gar - Last Filed: 03/25/20 12:32> <Shirley Treadwell - Last Filed: 03/31/20 19:30> Clinical Impression: Acute respiratory distress syndrome, COVID-19, Pneumonia, Anemia Disposition: ADMITTED IP TO THIS HOSP Condition: Serious
[2020-03-25 11:55] LABS: African American GFR (CKD) 60 (>60 ml/min/1.73 sqM); Albumin 2.8 g/dL (3.5-5.0); Alkaline Phosphatase 173 U/L (38-126); Anion Gap 13 mmol/L; Blood Urea Nitrogen 22 mg/dL (7-17); Calcium 7.9 mg/dL (8.4-10.2); Carbon Dioxide 22 mmol/L (22-30); Chloride 106 mmol/L (98-107); Glucose 189 mg/dL (74-99); Magnesium 2.6 mg/dL (1.6-2.3); Non-African American GFR(CKD) 52 (>60 ml/min/1.73 sqM); Potassium 4.5 mmol/L (3.5-5.1); Sodium 141 mmol/L (137-145); Total Bilirubin 0.7 mg/dL (0.2-1.3); Total Protein 6.1 g/dL (6.3-8.2)
[2020-03-25 11:56] LABS: Anisocytosis Slight; HCT 30.2 % (34.0-46.0); HGB 9.2 gm/dL (11.4-16.0); Hypochromasia Marked; MCH 27.6 pg (25.0-35.0); MCHC 30.5 g/dL (31.0-37.0); MCV 90.2 fL (80.0-100.0); Mean Platelet Volume 7.9; Platelet Count 349 k/uL (150-450); Poikilocytosis Moderate; RBC 3.35 m/uL (3.80-5.40); RDW 16.7 % (11.5-15.5); WBC 11.5 k/uL (3.8-10.6)
[2020-03-25] MEDS ORDERED: LORazepam 2 MG/ML INJ IV STA ×2 (11:59→12:53)
--- NOTE | 2020-03-25 12:03 | XR ---
EXAMINATION TYPE: XR chest 1V portable DATE OF EXAM: 03/25/2020 COMPARISON: 03/19/2020 INDICATION: Short of breath respiratory distress TECHNIQUE: Single frontal view of the chest is obtained. FINDINGS: The heart size is normal. The pulmonary vasculature is normal. Diffuse increased lung markings are present. Findings are worsening over the interval. IMPRESSION: 1. Worsening bilateral lung infiltrates. Correlate for atypical pneumonia.
[2020-03-25 12:08] LABS: ALT 1463 U/L (4-34)
[2020-03-25 12:09] LABS: C Reactive Protein 261.3 mg/L (<10.0)
[2020-03-25 12:16] LABS: INR 2.2 (<1.2); Partial Thromboplastin Time 29.1 sec (22.0-30.0); Prothrombin Time 21.2 sec (9.0-12.0)
[2020-03-25] MEDS ORDERED: ACETAMINOPHEN TAB 500 MG TAB PO PRN (12:20)
[2020-03-25 12:28] LABS: Band Neutrophils % 1 %; Lymphocytes # (M) 0.46 k/uL (1.0-4.8); Monocytes # (M) 0.46 k/uL (0-1.0); Myelocytes # (M) 0.12 k/uL (0); Myelocytes % 1 %; Neutrophils % (M) 91 %; Nucleated Red Blood Cells 0 /100 WBC (0-0); Total Cells Counted 200
[2020-03-25] MEDS ORDERED: DEXAMETHASONE SOD PHOSPHATE 10 MG/ML 1 ML VIAL IV SCH (12:30)
[2020-03-25 12:47] LABS: AST 4151 U/L (14-36); LDH >21500 U/L (313-618)
[2020-03-25] MEDS ORDERED: diphenhydrAMINE 50 MG/ML 1 ML VIAL IVP STA (13:09)
[2020-03-25 13:15] LABS: ABG Base Excess -5.1 mmol/L; ABG HCO3 23 mmol/L (21-25); ABG Oxygen Saturation 38.4 % (94-97); ABG PCO2 63 mmHg (35-45); ABG TCO2 25 mmol/L (19-24); Allen Test Performed? Yes
[2020-03-25] MEDS ORDERED: ROCURONIUM 10 MG/ML (10 ML VIAL) IV ONE (13:20)
[2020-03-25] MEDS ORDERED: ETOMIDATE 2 MG/ML 10 ML VIAL IVP STA (13:20)
--- NOTE | 2020-03-25 13:53 | XR ---
EXAMINATION TYPE: XR chest 1V DATE OF EXAM: 03/25/2020 COMPARISON: 03/25/2020 earlier exam INDICATION: Post intubation, difficulty breathing TECHNIQUE: Single frontal view of the chest is obtained. FINDINGS: The heart size is mildly prominent. The pulmonary vasculature is prominent. Diffuse increased lung markings are present bilaterally. Findings are worsening over the interval. r bronchograms are evident. Patient was intubated and has a endotracheal tube tip above allison. IMPRESSION: 1. Worsening bilateral consolidations. 2. Intubation with endotracheal tube tip 3.9 cm above the allison
[2020-03-25 14:12] LABS: ABG PH 7.18 (7.35-7.45); ABG PO2 33 mmHg (83-108)
[2020-03-25 14:15] LABS: ABG HCO3 23 mmol/L (21-25); ABG PCO2 62 mmHg (35-45); ABG PO2 81 mmHg (83-108); ABG TCO2 25 mmol/L (19-24); Allen Test Performed? Yes
[2020-03-25 14:18] LABS: ABG PH 7.19 (7.35-7.45)
[2020-03-25 15:29] LABS: Amylase 86 U/L (30-110); Lipase 178 U/L (23-300)
--- NOTE | 2020-03-25 15:40 | XR ---
EXAMINATION TYPE: XR chest 1V confirm line [facility] DATE OF EXAM: 03/25/2020 COMPARISON: Prior chest x-ray same dated earlier time and chest CT 03/14/2020 HISTORY: NG tube placement TECHNIQUE: Single frontal view of the chest is obtained. FINDINGS: There is been interval placement of an NG tube, distal tip is overlying the stomach, side- port is at the level of the distal thoracic esophagus which may be within patient's hiatal hernia and partial intrathoracic stomach. No other significant interval change. IMPRESSION: NG tube as described. Patient does have a hiatal hernia as described
--- NOTE | 2020-03-25 15:57 | US ---
EXAMINATION TYPE: US liver DATE OF EXAM: 03/25/2020 COMPARISON: NONE CLINICAL HISTORY: elevated liver enzymes. EC patient intubated, NG tube present, COVID + EXAM MEASUREMENTS: Liver Length: 17.2 cm Gallbladder Wall: 0.2 cm CBD: 0.4 cm Right Kidney: 10.2 x 5.5 x 4.1 cm Pancreas: hyperechoic, mid and tail obscured by overlying bowel gas Liver: hyperechoic oval area in caudate lobe = 2.8 x 2.8 x 0.9cm and in right lobe = 2.1 x 2.3 x 2.5 cm and may be hemangiomas (capillary as are hyperechoic) Gallbladder: large shadowing gallstone = 2.4 x 1.0 x 2.5cm. Evidence for sonographic Irene's sign: patient unable to respond to this assessment CBD: wnl Right Kidney: No hydronephrosis or masses seen IMPRESSION: 1. Some focal sparing may be adjacent to the hepatic cortex. Mass is not excluded. Recommend contrast CT abdomen for additional evaluation. 2. Additional hyperechoic area within the liver could be a hemangioma. 3. Cholelithiasis.
[2020-03-25 16:03] LABS: ABG Base Excess -2.7 mmol/L; ABG HCO3 24 mmol/L (21-25); ABG Oxygen Saturation 98.8 % (94-97); ABG PCO2 52 mmHg (35-45); ABG PH 7.28 (7.35-7.45); ABG PO2 125 mmHg (83-108); ABG TCO2 26 mmol/L (19-24); Allen Test Performed? Yes
--- NOTE | 2020-03-25 20:59 | XR ---
EXAMINATION TYPE: XR chest 1V portable DATE OF EXAM: 03/25/2020 COMPARISON: Today HISTORY: Check tube placement. TECHNIQUE: Single view FINDINGS: Endotracheal tube is 2.9 cm from the allison. There is diffuse moderately severe pulmonary e khanh. The trachea is midline. Heart is slightly enlarged. There are chest leads. IMPRESSION: Endotracheal tube in fairly good position. Severe pulmonary edema consistent with RDS saran t is unchanged compared to the exam earlier today.
[2020-03-25 21:45] LABS: Ferritin 12896.7 ng/mL (10.0-291.0)
--- NOTE | 2020-03-25 21:57 | XR ---
EXAMINATION TYPE: XR chest 1V portable DATE OF EXAM: 03/25/2020 COMPARISON: Today HISTORY: Check tube placement TECHNIQUE: Single view. There is nasogastric tube looped in the stomach. There is large hiatal hernia or elevated diaphragm. Endotracheal tube is 3.5 cm from the allison. There is moderately severe pulmonary edema. IMPRESSION: Severe pulmonary edema unchanged.
[2020-03-25 22:16] LABS: Anisocytosis Slight; Basophils % (A) 0 %; Eosinophils % (A) 0 %; HCT 25.3 % (34.0-46.0); Hypochromasia Marked; Lymphocytes # (A) 0.5 k/uL (1.0-4.8); Lymphocytes % (A) 4 %; MCH 27.9 pg (25.0-35.0); MCHC 30.3 g/dL (31.0-37.0); MCV 92.1 fL (80.0-100.0); Mean Platelet Volume 7.8; Monocytes # (A) 0.3 k/uL (0-1.0); Monocytes % (A) 3 %; Neutrophils # (A) 10.4 k/uL (1.3-7.7); Neutrophils % (A) 92 %; Platelet Count 298 k/uL (150-450); Poikilocytosis Moderate; RBC 2.75 m/uL (3.80-5.40); RDW 16.8 % (11.5-15.5); WBC 11.2 k/uL (3.8-10.6)
[2020-03-25] MEDS: PANTOPRAZOLE 40 MG/10 ML VIAL IVP SCH (22:20)
[2020-03-25] MEDS: ENOXAPARIN 40 MG/0.4 ML SYRINGE SQ SCH (22:20)
[2020-03-25 22:28] LABS: HGB 7.7 gm/dL (11.4-16.0)
[2020-03-25 22:41] LABS: Glucose,Whole Blood 222 mg/dL (75-99)
[2020-03-25] MEDS ORDERED: NALOXONE 0.4 MG/ML 1 ML VIAL IV PRN (23:09)
--- NOTE | 2020-03-26 01:20 | CONS ---
CONSULTATION DATE OF SERVICE: 03/25/2020. REASON FOR CONSULTATION: Covid 19 infection. HISTORY OF PRESENT ILLNESS: The patient is a 69-year-old female who was recently admitted at this facility from March 14 to March 19, 2020 when the patient presented with increasing shortness of breath. The patient did not have any fever on that admission. She did have negative Covid test. Chest x-ray did show some mild pulmonary infiltrate. The patient did have a CT angiogram of the chest that negative for PE, did show some scattered infiltrate. The patient was treated symptomatically and did not require any supplemental oxygen during that admission. She was on Rocephin and subsequently discharged home on oral Zithromax. The patient apparently did follow up with her primary care physician this morning. The patient was noticed to have significant shortness of breath and the patient was sent to the ER for further evaluation. On arrival to the ER, the patient was in acute respiratory distress, unable to speak. The patient ended up getting intubated to protect her airways and for respiratory distress. The patient on presentation to the hospital was afebrile. The patient did have O2 saturation of 76% on room air and is currently 94% on 100% FiO2. The patient on arrival to the ER did have white count 11.5, did have mild lymphopenia. No D- dimer was done. The patient did have creatinine 1.09. Ferritin is 12,896 is more than 21,500. She did have mild elevated troponin and lactic acid. [place]on PCR came back positive. The patient did have a chest x-ray on admission, worsening bilateral lung infiltrate correlate for atypical pneumonia. Infectious Disease was consulted for further management. Most information has been obtained from review of the chart, talking to nursing staff, and the patient is currently intubated on the vent and unable to provide any history. REVIEW OF SYSTEMS: Positive points have been mentioned in HPI. Complete review could not be obtained because the patient on the vent. PAST MEDICAL HISTORY: Hypertension, hypothyroidism, osteoarthritis, and chronic anemia. PAST SURGICAL HISTORY: Hysterectomy, a recent left knee replacement, carpal tunnel surgery. SOCIAL HISTORY: Remote history of smoking, No drinking or drug use. FAMILY HISTORY: No pertinent findings noticed. ALLERGIES: ALLERGIES TO PENICILLIN AND SULFA MEDICATIONS: Currently include the patient is on Tylenol, vitamin C, vitamin D3, Dexamethasone 6 mg, Protonix, Propofol. PHYSICAL EXAMINATION: Her blood pressure is 130/75 with a pulse of 80, temperature 98.3. She is 94% on 100% FiO2. General description is an elderly female intubated on the vent. HEENT: Shows slight pallor. No scleral icterus. The patient is orally intubated. NECK: Trachea central. No thyromegaly. Lungs unlabored breathing, decreased breath sounds in the base, with no wheeze or crackle. Heart S1, S2. Regular rate and rhythm. Abdomen soft. No tenderness. No guarding and no rigidity. Extremities: No edema of the feet. Skin examination: No rash or mass palpable. Neurologic: The patient is currently sedated on the vent. LABS: Hemoglobin 9.8, white count 11.5, BUN of 22, creatinine 1.09. Elevated ferritin, LDH. Covid test positive. Chest x-ray report mentioned above. DIAGNOSTIC IMPRESSION AND PLAN: 1. Patient with acute respiratory failure which is multifactorial in this patient who did have an acute COVID-19 pneumonia and likely presenting in this patient did have significantly elevated inflammatory markers and likely RDS pattern. Clinic suspicion low for underlying bacterial pneumonia. 2. MULTIPLE ANTIBIOTIC ALLERGY that will limit the number of antibiotics safe to use. PLAN: 1. We will start Solu-Medrol 60 mg Q IV q.6 hours. 2. Lovenox 40 mg daily. 3. We will check a D-dimer and procalcitonin level. 4. We will obtain sputum for Gram stain culture. 5. We will follow on her clinical condition and further adjust medication if needed. Thank you for this consultation. Will follow this patient along with you. MMODL / IJN: [id number] / HÉCTOR
[2020-03-26] MEDS: ASCORBIC ACID 500 MG TAB PO SCH ×3 (01:36→20:13)
[2020-03-26] MEDS: methylPREDNISolone SOD SUCCI 125 MG/2 ML VIAL IV SCH ×4 (01:37→18:16)
[2020-03-26 04:09] LABS: Anisocytosis Slight; Basophils % (A) 0 %; Eosinophils % (A) 0 %; HCT 26.9 % (34.0-46.0); HGB 7.9 gm/dL (11.4-16.0); Hypochromasia Marked; Lymphocytes # (A) 0.6 k/uL (1.0-4.8); Lymphocytes % (A) 5 %; MCH 27.6 pg (25.0-35.0); MCHC 29.4 g/dL (31.0-37.0); MCV 93.8 fL (80.0-100.0); Mean Platelet Volume 8.3; Monocytes # (A) 0.3 k/uL (0-1.0); Monocytes % (A) 3 %; Neutrophils # (A) 10.5 k/uL (1.3-7.7); Neutrophils % (A) 91 %; Platelet Count 275 k/uL (150-450); Poikilocytosis Slight; RBC 2.86 m/uL (3.80-5.40); RDW 16.5 % (11.5-15.5); WBC 11.5 k/uL (3.8-10.6)
[2020-03-26 04:35] LABS: Calcium 7.3 mg/dL (8.4-10.2); Potassium 4.6 mmol/L (3.5-5.1)
[2020-03-26] MEDS ORDERED: SODIUM CHLORIDE 0.9% 500 ML 500 ML IV ONE (04:56)
[2020-03-26 05:12] LABS: ABG Base Excess -1.3 mmol/L; ABG HCO3 24 mmol/L (21-25); ABG Oxygen Saturation 99.1 % (94-97); ABG PCO2 40 mmHg (35-45); ABG PH 7.39 (7.35-7.45); ABG PO2 112 mmHg (83-108); ABG TCO2 25 mmol/L (19-24); Allen Test Performed? Yes
[2020-03-26] MEDS: SODIUM CHLORIDE 0.9% 1,000 ML IV SCH ×2 (06:47→14:53)
--- NOTE | 2020-03-26 08:04 | XR ---
EXAMINATION TYPE: XR chest 1V DATE OF EXAM: 03/26/2020 COMPARISON: Prior chest x-ray 03/25/2020 HISTORY: Intubated TECHNIQUE: Single frontal view of the chest is obtained. FINDINGS: Endotracheal tube and NG tube are overlying appropriate positions. Bilateral airspace dise ase persists. No evident pneumothorax or sizable effusion. Heart is stable. Aorta is dense. IMPRESSION: Findings consistent with pneumonia, correlate for possible edema. There is a hiatal gutierrez ia with partial intrathoracic stomach.
[2020-03-26] MEDS: ZINC SULFATE 220 MG CAP PO SCH (08:11)
[2020-03-26] MEDS: CHOLECALCIFEROL 400 UNIT TAB PO SCH (08:13)
[2020-03-26] MEDS: CHLORHEXIDINE GLUCONATE 15 ML CUP MUCOUS MEM SCH ×2 (08:17→20:13)
[2020-03-26] MEDS: PANTOPRAZOLE 40 MG/10 ML VIAL IVP SCH ×2 (08:17→20:13)
[2020-03-26] MEDS: ENOXAPARIN 40 MG/0.4 ML SYRINGE SQ SCH (08:17)
--- NOTE | 2020-03-26 08:38 | P.HPIM ---
History of Present Illness H&P Date: 03/26/20 Chief Complaint: Respiratory failure This is a history of physical 69-year-old white female with known history of anemia who was recently discharged for recurrent anemia and pneumonia last week. Coronavirus testing was negative but respiratory distress became worse. She wa s discharged on 4 L because she's had a history of this in the past and doesn't resolve. She's been on home oxygen and also in the past. She returned to my office for follow-up but one wasn't able to have good respiratory saturation of oxygen and was readmitted secondary to now new positivity of coronavirus with double pneumonia. Her son, she has not been ventilated and we are following her closely. Pulmonology has been consulted. Review of Systems ROS unobtainable: due to endotracheal tube Constitutional: Denies chills, Denies fever Eyes: denies blurred vision, denies pain Past Medical History Past Medical History: Hypertension, Thyroid Disorder Additional Past Medical History / Comment(s): chronic ANEMIA- pt gets iron trans. every 8-12 weeks for over 12 years. Pt has a hx of a sm ulcer History of Any Multi-Drug Resistant Organisms: None Reported Past Surgical History: Hysterectomy, Joint Replacement, Orthopedic Surgery Additional Past Surgical History / Comment(s): LEFT KNEE ARTHROSCOPIC, carpal tunnel, left knee replacement, laser eye surgery Past Anesthesia/Blood Transfusion Reactions: No Reported Reaction Smoking Status: Former smoker - Past Family History Mother Family Medical History: No Reported History Medications and Allergies Home Medications Medication Instructions Recorded Confirmed Type Sertraline [Zoloft] 150 mg PO DAILY 08/23/14 03/25/20 History lisinopriL [Zestril] 10 mg PO DAILY 08/12/16 03/25/20 History Amitriptyline HCl [Elavil] 50 mg PO HS 03/10/20 03/25/20 History Cyclobenzaprine [Flexeril] 10 mg PO TID PRN 03/10/20 03/25/20 History Levothyroxine Sodium 200 mcg PO DAILY 03/10/20 03/25/20 History Sennosides [Senna] 17.2 mg PO HS PRN 03/10/20 03/25/20 History amLODIPine [Norvasc] 5 mg PO DAILY 03/10/20 03/25/20 History rOPINIRole HCL [Requip] 1 mg PO TID 03/10/20 03/25/20 History Omeprazole [PriLOSEC] 20 mg PO AC-BRKFST #90 cap 03/11/20 03/25/20 Rx Aspirin 81 mg PO BID 17 Days #34 chewable 03/12/20 03/25/20 Rx Azithromycin [Zithromax] 500 mg PO DAILY #3 tab 03/19/20 03/25/20 Rx Ferrous Sulfate [Iron (65 MG 325 mg PO BID-W/MEALS #60 tab 03/19/20 03/25/20 Rx Elemental)] guaiFENesin-DM 100-10MG/5ML 10 ml PO Q6H PRN #200 ml 03/19/20 03/25/20 Rx [Robitussin DM] Allergies Allergy/AdvReac Type Severity Reaction Status Date / Time meperidine HCl [From Demerol] Allergy Rash/Hives Verified 03/25/20 11:11 Penicillins Allergy Rash/Hives Verified 03/25/20 11:11 Sulfa (Sulfonamide Allergy Rash/Hives Verified 03/25/20 11:11 Antibiotics) Physical Exam Vitals: Vital Signs Temp Pulse Resp BP Pulse Ox 03/26/20 05:00 52 L 24 101/56 98 03/26/20 04:30 52 L 24 109/62 98 03/26/20 04:00 98.8 F 56 L 24 121/66 98 03/26/20 03:30 56 L 24 109/61 100 03/26/20 03:00 53 L 24 104/59 100 03/26/20 02:30 56 L 24 103/69 100 03/26/20 02:00 54 L 24 91/53 100 03/26/20 01:30 52 L 24 93/56 100 03/26/20 01:00 54 L 24 90/57 100 03/26/20 00:00 53 L 24 89/56 100 03/25/20 23:00 98.9 F 57 L 24 102/67 100 03/25/20 22:14 80 18 134/76 98 03/25/20 20:00 80 16 133/75 94 L 03/25/20 18:48 92 18 151/79 92 L 03/25/20 18:00 92 18 144/81 95 03/25/20 17:00 98 14 158/72 94 L 03/25/20 16:00 98.3 F 98 14 176/97 96 03/25/20 15:00 101 H 14 171/89 97 03/25/20 14:00 102 H 14 181/89 95 03/25/20 12:00 98.7 F 92 18 115/83 90 L 03/25/20 11:50 85 26 H 129/53 89 L 03/25/20 10:40 98.6 F 83 24 126/79 76 L Intake and Output 03/25/20 03/26/20 03/26/20 22:59 06:59 14:59 Intake Total 560 Output Total 260 95 Balance -260 465 Intake: IV 360 0.9 NaCl- 360 Intake, IV Titration 200 Amount propofoL 1,000 mg In 200 Empty Bag 1 bag @ Titrate IV .Q0M [facility] Rx#: [id number] Output: Gastric Drainage 10 Urine 250 95 Other: Weight 85.3 kg - EENT Eyes: EOMI - Neck Neck: no lymphadenopathy - Respiratory Respiratory: bilateral: diminished - Cardiovascular Rhythm: regular Heart sounds: normal: S1, S2 Abnormal Heart Sounds: no S3 Gallop - Gastrointestinal General gastrointestinal: soft, no tenderness - Neurologic Neurologic: CNII-XII intact Results CBC & Chem 7: 03/26/20 03:03 03/26/20 03:03 Labs: Abnormal Lab Results - Last 24 Hours (Table) 03/25/20 03/25/20 03/25/20 Range/Units 11:28 11:28 11:28 WBC 11.5 H (3.8-10.6) k/uL RBC 3.35 L (3.80-5.40) m/uL Hgb 9.2 L (11.4-16.0) gm/dL Hct 30.2 L (34.0-46.0) % MCHC 30.5 L (31.0-37.0) g/dL RDW 16.7 H (11.5-15.5) % Neutrophils # (1.3-7.7) k/uL Neutrophils # (Manual) 10.50 H (1.3-7.7) k/uL Lymphocytes # (1.0-4.8) k/uL Lymphocytes # (Manual) 0.46 L (1.0-4.8) k/uL Myelocytes # (Manual) 0.12 H (0) k/uL PT 21.2 H (9.0-12.0) sec INR 2.2 H (<1.2) D-Dimer (<0.60) mg/L FEU ABG pH (7.35-7.45) ABG pCO2 (35-45) mmHg ABG pO2 (83-108) mmHg ABG Total CO2 (19-24) mmol/L ABG O2 Saturation (94-97) % Chloride (98-107) mmol/L BUN 22 H (7-17) mg/dL Creatinine 1.09 H (0.52-1.04) mg/dL Glucose 189 H (74-99) mg/dL POC Glucose (mg/dL) (75-99) mg/dL Plasma Lactic Acid [place] (0.7-2.0) mmol/L Calcium 7.9 L (8.4-10.2) mg/dL Magnesium 2.6 H (1.6-2.3) mg/dL Ferritin 74601.7 H (10.0-291.0) ng/mL AST 4151 H (14-36) U/L ALT 1463 H (4-34) U/L Alkaline Phosphatase 173 H (38-126) U/L Lactate Dehydrogenase >25670 H (313-618) U/L Troponin I (0.000-0.034) ng/mL C-Reactive Protein 261.3 H (<10.0) mg/L Total Protein 6.1 L (6.3-8.2) g/dL Albumin 2.8 L (3.5-5.0) g/dL Procalcitonin (0.02-0.09) ng/mL Coronavirus (PCR) (Not Detectd) 03/25/20 03/25/20 03/25/20 Range/Units 11:28 11:28 11:34 WBC (3.8-10.6) k/uL RBC (3.80-5.40) m/uL Hgb (11.4-16.0) gm/dL Hct (34.0-46.0) % MCHC (31.0-37.0) g/dL RDW (11.5-15.5) % Neutrophils # (1.3-7.7) k/uL Neutrophils # (Manual) (1.3-7.7) k/uL Lymphocytes # (1.0-4.8) k/uL Lymphocytes # (Manual) (1.0-4.8) k/uL Myelocytes # (Manual) (0) k/uL PT (9.0-12.0) sec INR (<1.2) D-Dimer (<0.60) mg/L FEU ABG pH (7.35-7.45) ABG pCO2 (35-45) mmHg ABG pO2 (83-108) mmHg ABG Total CO2 (19-24) mmol/L ABG O2 Saturation (94-97) % Chloride (98-107) mmol/L BUN (7-17) mg/dL Creatinine (0.52-1.04) mg/dL Glucose (74-99) mg/dL POC Glucose (mg/dL) (75-99) mg/dL Plasma Lactic Acid Israel 5.9 H* (0.7-2.0) mmol/L Calcium (8.4-10.2) mg/dL Magnesium (1.6-2.3) mg/dL Ferritin (10.0-291.0) ng/mL AST (14-36) U/L ALT (4-34) U/L Alkaline Phosphatase (38-126) U/L Lactate Dehydrogenase (313-618) U/L Troponin I 0.062 H* (0.000-0.034) ng/mL C-Reactive Protein (<10.0) mg/L Total Protein (6.3-8.2) g/dL Albumin (3.5-5.0) g/dL Procalcitonin (0.02-0.09) ng/mL Coronavirus (PCR) Detected A (Not Detectd) 03/25/20 03/25/20 03/25/20 Range/Units 13:12 14:10 15:59 WBC (3.8-10.6) k/uL RBC (3.80-5.40) m/uL Hgb (11.4-16.0) gm/dL Hct (34.0-46.0) % MCHC (31.0-37.0) g/dL RDW (11.5-15.5) % Neutrophils # (1.3-7.7) k/uL Neutrophils # (Manual) (1.3-7.7) k/uL Lymphocytes # (1.0-4.8) k/uL Lymphocytes # (Manual) (1.0-4.8) k/uL Myelocytes # (Manual) (0) k/uL PT (9.0-12.0) sec INR (<1.2) D-Dimer (<0.60) mg/L FEU ABG pH 7.18 L* 7.19 L* 7.28 L (7.35-7.45) ABG pCO2 63 H 62 H 52 H (35-45) mmHg ABG pO2 33 L* 81 L 125 H (83-108) mmHg ABG Total CO2 25 H 25 H 26 H (19-24) mmol/L ABG O2 Saturation 38.4 L 91.0 L 98.8 H (94-97) % Chloride (98-107) mmol/L BUN (7-17) mg/dL Creatinine (0.52-1.04) mg/dL Glucose (74-99) mg/dL POC Glucose (mg/dL) (75-99) mg/dL Plasma Lactic Acid [place] (0.7-2.0) mmol/L Calcium (8.4-10.2) mg/dL Magnesium (1.6-2.3) mg/dL Ferritin (10.0-291.0) ng/mL AST (14-36) U/L ALT (4-34) U/L Alkaline Phosphatase (38-126) U/L Lactate Dehydrogenase (313-618) U/L Troponin I (0.000-0.034) ng/mL C-Reactive Protein (<10.0) mg/L Total Protein (6.3-8.2) g/dL Albumin (3.5-5.0) g/dL Procalcitonin (0.02-0.09) ng/mL Coronavirus (PCR) (Not Detectd) 03/25/20 03/25/20 03/25/20 Range/Units 22:02 22:02 22:02 WBC 11.2 H (3.8-10.6) k/uL RBC 2.75 L (3.80-5.40) m/uL Hgb 7.7 L D (11.4-16.0) gm/dL Hct 25.3 L (34.0-46.0) % MCHC 30.3 L (31.0-37.0) g/dL RDW 16.8 H (11.5-15.5) % Neutrophils # 10.4 H (1.3-7.7) k/uL Neutrophils # (Manual) (1.3-7.7) k/uL Lymphocytes # 0.5 L (1.0-4.8) k/uL Lymphocytes # (Manual) (1.0-4.8) k/uL Myelocytes # (Manual) (0) k/uL PT (9.0-12.0) sec INR (<1.2) D-Dimer 4.08 H (<0.60) mg/L FEU ABG pH (7.35-7.45) ABG pCO2 (35-45) mmHg ABG pO2 (83-108) mmHg ABG Total CO2 (19-24) mmol/L ABG O2 Saturation (94-97) % Chloride (98-107) mmol/L BUN (7-17) mg/dL Creatinine (0.52-1.04) mg/dL Glucose (74-99) mg/dL POC Glucose (mg/dL) (75-99) mg/dL Plasma Lactic Acid [place] (0.7-2.0) mmol/L Calcium (8.4-10.2) mg/dL Magnesium (1.6-2.3) mg/dL Ferritin (10.0-291.0) ng/mL AST (14-36) U/L ALT (4-34) U/L Alkaline Phosphatase (38-126) U/L Lactate Dehydrogenase (313-618) U/L Troponin I (0.000-0.034) ng/mL C-Reactive Protein (<10.0) mg/L Total Protein (6.3-8.2) g/dL Albumin (3.5-5.0) g/dL Procalcitonin 0.84 H (0.02-0.09) ng/mL Coronavirus (PCR) (Not Detectd) 03/25/20 03/26/20 03/26/20 Range/Units 22:40 03:03 03:03 WBC 11.5 H (3.8-10.6) k/uL RBC 2.86 L (3.80-5.40) m/uL Hgb 7.9 L (11.4-16.0) gm/dL Hct 26.9 L (34.0-46.0) % MCHC 29.4 L (31.0-37.0) g/dL RDW 16.5 H (11.5-15.5) % Neutrophils # 10.5 H (1.3-7.7) k/uL Neutrophils # (Manual) (1.3-7.7) k/uL Lymphocytes # 0.6 L (1.0-4.8) k/uL Lymphocytes # (Manual) (1.0-4.8) k/uL Myelocytes # (Manual) (0) k/uL PT (9.0-12.0) sec INR (<1.2) D-Dimer (<0.60) mg/L FEU ABG pH (7.35-7.45) ABG pCO2 (35-45) mmHg ABG pO2 (83-108) mmHg ABG Total CO2 (19-24) mmol/L ABG O2 Saturation (94-97) % Chloride 110 H (98-107) mmol/L BUN 33 H (7-17) mg/dL Creatinine (0.52-1.04) mg/dL Glucose 175 H (74-99) mg/dL POC Glucose (mg/dL) 222 H (75-99) mg/dL Plasma Lactic Acid [place] (0.7-2.0) mmol/L Calcium 7.3 L (8.4-10.2) mg/dL Magnesium (1.6-2.3) mg/dL Ferritin (10.0-291.0) ng/mL AST (14-36) U/L ALT (4-34) U/L Alkaline Phosphatase (38-126) U/L Lactate Dehydrogenase (313-618) U/L Troponin I (0.000-0.034) ng/mL C-Reactive Protein (<10.0) mg/L Total Protein (6.3-8.2) g/dL Albumin (3.5-5.0) g/dL Procalcitonin (0.02-0.09) ng/mL Coronavirus (PCR) (Not Detectd) 03/26/20 Range/Units 05:04 WBC (3.8-10.6) k/uL RBC (3.80-5.40) m/uL Hgb (11.4-16.0) gm/dL Hct (34.0-46.0) % MCHC (31.0-37.0) g/dL RDW (11.5-15.5) % Neutrophils # (1.3-7.7) k/uL Neutrophils # (Manual) (1.3-7.7) k/uL Lymphocytes # (1.0-4.8) k/uL Lymphocytes # (Manual) (1.0-4.8) k/uL Myelocytes # (Manual) (0) k/uL PT (9.0-12.0) sec INR (<1.2) D-Dimer (<0.60) mg/L FEU ABG pH (7.35-7.45) ABG pCO2 (35-45) mmHg ABG pO2 112 H (83-108) mmHg ABG Total CO2 25 H (19-24) mmol/L ABG O2 Saturation 99.1 H (94-97) % Chloride (98-107) mmol/L BUN (7-17) mg/dL Creatinine (0.52-1.04) mg/dL Glucose (74-99) mg/dL POC Glucose (mg/dL) (75-99) mg/dL Plasma Lactic Acid [place] (0.7-2.0) mmol/L Calcium (8.4-10.2) mg/dL Magnesium (1.6-2.3) mg/dL Ferritin (10.0-291.0) ng/mL AST (14-36) U/L ALT (4-34) U/L Alkaline Phosphatase (38-126) U/L Lactate Dehydrogenase (313-618) U/L Troponin I (0.000-0.034) ng/mL C-Reactive Protein (<10.0) mg/L Total Protein (6.3-8.2) g/dL Albumin (3.5-5.0) g/dL Procalcitonin (0.02-0.09) ng/mL Coronavirus (PCR) (Not Detectd) Thrombosis Risk Factor Assmnt - Choose All That Apply Any of the Below Risk Factors Present?: Yes Each Factor Represents 1 point: Obesity (BMI >25), Serious lung disease incl. pneumonia (< 1month) Other Risk Factors: Yes Each Risk Factor Represents 2 Points: Age 61-74 years, Patient confined to bed Other congenital or acquired thrombophilia - If yes, enter type in comment: No Thrombosis Risk Factor Assessment Total Risk Factor Score: 6 Thrombosis Risk Factor Assessment Level: High Risk Assessment and Plan (1) Acute respiratory distress syndrome Current Visit: Yes Status: Acute Code(s): J80 - ACUTE RESPIRATORY DISTRESS SYNDROME SNOMED Code(s): 90860988 (2) Anemia Current Visit: Yes Status: Acute Code(s): D64.9 - ANEMIA, UNSPECIFIED SNOMED Code(s): 584706620 (3) COVID-19 Current Visit: Yes Status: Acute Code(s): U07.1 - COVID-19 SNOMED Code(s): 067664551 (4) Pneumonia Current Visit: Yes Status: Acute Code(s): J18.9 - PNEUMONIA, UNSPECIFIED ORGANISM SNOMED Code(s): 440158449 (5) Fibromyalgia Current Visit: No Status: Acute Code(s): M79.7 - FIBROMYALGIA SNOMED Code(s): 401385712 Plan: Appropriate supportive care. Place on sliding scale. Reconcile medications as necessary. Due to endotracheal tube, we will hopefully be able to stabilize her respiratory status. Appreciate multiple consultants input. He fractured check CBC and CMP in a.m. with chest x-ray. Time with Patient: Greater than 30
[2020-03-26] MEDS ORDERED: INSULIN REGULAR BOLUS (FROM DRIP BAG) IV PRN (08:39)
[2020-03-26 09:13] LABS: Total Bilirubin 0.6 mg/dL (0.2-1.3)
[2020-03-26 11:38] LABS: Glucose,Whole Blood 245 mg/dL (75-99)
[2020-03-26] MEDS: INSULIN ASPART (NovoLOG) 100 UNIT/ML VIAL SQ SCH ×2 (11:43→18:17)
--- NOTE | 2020-03-26 11:57 | P.GSCN ---
History of Present Illness Consult date: 03/26/20 Reason for Consult: GI bleed History of present illness: 69-year-old female known to our service. She has been hospitalized twice in the last month. Last visit she had pneumonia. Respiratory status had improved and she was discharged home. Came back to the hospital with progressive respiratory failure. Covid positive at this point. Patient was intubated. Ultrasound was obtained after liver enzymes were noted to be elevated. Large gallstone evident. No biliary obstruction suspected. Remains on the ventilator. Nasogastric tube placement was somewhat traumatic. Patient does have a small amount of maroon colored fluid in the gastric aspirate. Patient is due for upper and lower endoscopy to evaluate profound anemia. We were placed on consult for GI bleed. Review of Systems ROS unobtainable: due to endotracheal tube Past Medical History Past Medical History: Hypertension, Thyroid Disorder Additional Past Medical History / Comment(s): chronic ANEMIA- pt gets iron trans. every 8-12 weeks for over 12 years. Pt has a hx of a sm ulcer History of Any Multi-Drug Resistant Organisms: None Reported Past Surgical History: Hysterectomy, Joint Replacement, Orthopedic Surgery Additional Past Surgical History / Comment(s): LEFT KNEE ARTHROSCOPIC, carpal tunnel, left knee replacement, laser eye surgery Past Anesthesia/Blood Transfusion Reactions: No Reported Reaction Smoking Status: Former smoker - Past Family History Mother Family Medical History: No Reported History Medications and Allergies Home Medications Medication Instructions Recorded Confirmed Type Sertraline [Zoloft] 150 mg PO DAILY 08/23/14 03/25/20 History lisinopriL [Zestril] 10 mg PO DAILY 08/12/16 03/25/20 History Amitriptyline HCl [Elavil] 50 mg PO HS 03/10/20 03/25/20 History Cyclobenzaprine [Flexeril] 10 mg PO TID PRN 03/10/20 03/25/20 History Levothyroxine Sodium 200 mcg PO DAILY 03/10/20 03/25/20 History Sennosides [Senna] 17.2 mg PO HS PRN 03/10/20 03/25/20 History amLODIPine [Norvasc] 5 mg PO DAILY 03/10/20 03/25/20 History rOPINIRole HCL [Requip] 1 mg PO TID 03/10/20 03/25/20 History Omeprazole [PriLOSEC] 20 mg PO AC-BRKFST #90 cap 03/11/20 03/25/20 Rx Aspirin 81 mg PO BID 17 Days #34 chewable 03/12/20 03/25/20 Rx Azithromycin [Zithromax] 500 mg PO DAILY #3 tab 03/19/20 03/25/20 Rx Ferrous Sulfate [Iron (65 MG 325 mg PO BID-W/MEALS #60 tab 03/19/20 03/25/20 Rx Elemental)] guaiFENesin-DM 100-10MG/5ML 10 ml PO Q6H PRN #200 ml 03/19/20 03/25/20 Rx [Robitussin DM] Allergies Allergy/AdvReac Type Severity Reaction Status Date / Time meperidine HCl [From Demerol] Allergy Rash/Hives Verified 03/25/20 11:11 Penicillins Allergy Rash/Hives Verified 03/25/20 11:11 Sulfa (Sulfonamide Allergy Rash/Hives Verified 03/25/20 11:11 Antibiotics) Surgical - Exam Vital Signs Temp Pulse Resp BP Pulse Ox 98.6 F 83 24 126/79 76 L 03/25/20 10:40 03/25/20 10:40 03/25/20 10:40 03/25/20 10:40 03/25/20 10:40 Physical exam: General: Well-developed, well-nourished HEENT: Normocephalic, sclerae nonicteric Abdomen: Nontender, nondistended Extremities: No edema Neuro: Intubated Results - Labs 03/26/20 03:03 03/26/20 03:03 Abnormal Lab Results - Last 24 Hours (Table) 03/25/20 03/25/20 03/25/20 Range/Units 11:28 11:28 11:28 WBC 11.5 H (3.8-10.6) k/uL RBC 3.35 L (3.80-5.40) m/uL Hgb 9.2 L (11.4-16.0) gm/dL Hct 30.2 L (34.0-46.0) % MCHC 30.5 L (31.0-37.0) g/dL RDW 16.7 H (11.5-15.5) % Neutrophils # (1.3-7.7) k/uL Neutrophils # (Manual) 10.50 H (1.3-7.7) k/uL Lymphocytes # (1.0-4.8) k/uL Lymphocytes # (Manual) 0.46 L (1.0-4.8) k/uL Myelocytes # (Manual) 0.12 H (0) k/uL Retic Count (0.5-2.0) % PT 21.2 H (9.0-12.0) sec INR 2.2 H (<1.2) D-Dimer (<0.60) mg/L FEU ABG pH (7.35-7.45) ABG pCO2 (35-45) mmHg ABG pO2 (83-108) mmHg ABG Total CO2 (19-24) mmol/L ABG O2 Saturation (94-97) % Chloride (98-107) mmol/L BUN 22 H (7-17) mg/dL Creatinine 1.09 H (0.52-1.04) mg/dL Glucose 189 H (74-99) mg/dL POC Glucose (mg/dL) (75-99) mg/dL Plasma Lactic Acid [place] (0.7-2.0) mmol/L Calcium 7.9 L (8.4-10.2) mg/dL Magnesium 2.6 H (1.6-2.3) mg/dL Ferritin 12529.7 H (10.0-291.0) ng/mL AST 4151 H (14-36) U/L ALT 1463 H (4-34) U/L Alkaline Phosphatase 173 H (38-126) U/L Lactate Dehydrogenase >77605 H (313-618) U/L Troponin I (0.000-0.034) ng/mL C-Reactive Protein 261.3 H (<10.0) mg/L Total Protein 6.1 L (6.3-8.2) g/dL Albumin 2.8 L (3.5-5.0) g/dL Procalcitonin (0.02-0.09) ng/mL 03/25/20 03/25/20 03/25/20 Range/Units 11:28 11:28 13:12 WBC (3.8-10.6) k/uL RBC (3.80-5.40) m/uL Hgb (11.4-16.0) gm/dL Hct (34.0-46.0) % MCHC (31.0-37.0) g/dL RDW (11.5-15.5) % Neutrophils # (1.3-7.7) k/uL Neutrophils # (Manual) (1.3-7.7) k/uL Lymphocytes # (1.0-4.8) k/uL Lymphocytes # (Manual) (1.0-4.8) k/uL Myelocytes # (Manual) (0) k/uL Retic Count (0.5-2.0) % PT (9.0-12.0) sec INR (<1.2) D-Dimer (<0.60) mg/L FEU ABG pH 7.18 L* (7.35-7.45) ABG pCO2 63 H (35-45) mmHg ABG pO2 33 L* (83-108) mmHg ABG Total CO2 25 H (19-24) mmol/L ABG O2 Saturation 38.4 L (94-97) % Chloride (98-107) mmol/L BUN (7-17) mg/dL Creatinine (0.52-1.04) mg/dL Glucose (74-99) mg/dL POC Glucose (mg/dL) (75-99) mg/dL Plasma Lactic Acid [place] 5.9 H* (0.7-2.0) mmol/L Calcium (8.4-10.2) mg/dL Magnesium (1.6-2.3) mg/dL Ferritin (10.0-291.0) ng/mL AST (14-36) U/L ALT (4-34) U/L Alkaline Phosphatase (38-126) U/L Lactate Dehydrogenase (313-618) U/L Troponin I 0.062 H* (0.000-0.034) ng/mL C-Reactive Protein (<10.0) mg/L Total Protein (6.3-8.2) g/dL Albumin (3.5-5.0) g/dL Procalcitonin (0.02-0.09) ng/mL 03/25/20 03/25/20 03/25/20 Range/Units 14:10 15:59 22:02 WBC 11.2 H (3.8-10.6) k/uL RBC 2.75 L (3.80-5.40) m/uL Hgb 7.7 L D (11.4-16.0) gm/dL Hct 25.3 L (34.0-46.0) % MCHC 30.3 L (31.0-37.0) g/dL RDW 16.8 H (11.5-15.5) % Neutrophils # 10.4 H (1.3-7.7) k/uL Neutrophils # (Manual) (1.3-7.7) k/uL Lymphocytes # 0.5 L (1.0-4.8) k/uL Lymphocytes # (Manual) (1.0-4.8) k/uL Myelocytes # (Manual) (0) k/uL Retic Count (0.5-2.0) % PT (9.0-12.0) sec INR (<1.2) D-Dimer (<0.60) mg/L FEU ABG pH 7.19 L* 7.28 L (7.35-7.45) ABG pCO2 62 H 52 H (35-45) mmHg ABG pO2 81 L 125 H (83-108) mmHg ABG Total CO2 25 H 26 H (19-24) mmol/L ABG O2 Saturation 91.0 L 98.8 H (94-97) % Chloride (98-107) mmol/L BUN (7-17) mg/dL Creatinine (0.52-1.04) mg/dL Glucose (74-99) mg/dL POC Glucose (mg/dL) (75-99) mg/dL Plasma Lactic Acid [place] (0.7-2.0) mmol/L Calcium (8.4-10.2) mg/dL Magnesium (1.6-2.3) mg/dL Ferritin (10.0-291.0) ng/mL AST (14-36) U/L ALT (4-34) U/L Alkaline Phosphatase (38-126) U/L Lactate Dehydrogenase (313-618) U/L Troponin I (0.000-0.034) ng/mL C-Reactive Protein (<10.0) mg/L Total Protein (6.3-8.2) g/dL Albumin (3.5-5.0) g/dL Procalcitonin (0.02-0.09) ng/mL 03/25/20 03/25/20 03/25/20 Range/Units 22:02 22:02 22:40 WBC (3.8-10.6) k/uL RBC (3.80-5.40) m/uL Hgb (11.4-16.0) gm/dL Hct (34.0-46.0) % MCHC (31.0-37.0) g/dL RDW (11.5-15.5) % Neutrophils # (1.3-7.7) k/uL Neutrophils # (Manual) (1.3-7.7) k/uL Lymphocytes # (1.0-4.8) k/uL Lymphocytes # (Manual) (1.0-4.8) k/uL Myelocytes # (Manual) (0) k/uL Retic Count (0.5-2.0) % PT (9.0-12.0) sec INR (<1.2) D-Dimer 4.08 H (<0.60) mg/L FEU ABG pH (7.35-7.45) ABG pCO2 (35-45) mmHg ABG pO2 (83-108) mmHg ABG Total CO2 (19-24) mmol/L ABG O2 Saturation (94-97) % Chloride (98-107) mmol/L BUN (7-17) mg/dL Creatinine (0.52-1.04) mg/dL Glucose (74-99) mg/dL POC Glucose (mg/dL) 222 H (75-99) mg/dL Plasma Lactic Acid [place] (0.7-2.0) mmol/L Calcium (8.4-10.2) mg/dL Magnesium (1.6-2.3) mg/dL Ferritin (10.0-291.0) ng/mL AST (14-36) U/L ALT (4-34) U/L Alkaline Phosphatase (38-126) U/L Lactate Dehydrogenase (313-618) U/L Troponin I (0.000-0.034) ng/mL C-Reactive Protein (<10.0) mg/L Total Protein (6.3-8.2) g/dL Albumin (3.5-5.0) g/dL Procalcitonin 0.84 H (0.02-0.09) ng/mL 03/26/20 03/26/20 03/26/20 Range/Units 03:03 03:03 03:03 WBC 11.5 H (3.8-10.6) k/uL RBC 2.86 L (3.80-5.40) m/uL Hgb 7.9 L (11.4-16.0) gm/dL Hct 26.9 L (34.0-46.0) % MCHC 29.4 L (31.0-37.0) g/dL RDW 16.5 H (11.5-15.5) % Neutrophils # 10.5 H (1.3-7.7) k/uL Neutrophils # (Manual) (1.3-7.7) k/uL Lymphocytes # 0.6 L (1.0-4.8) k/uL Lymphocytes # (Manual) (1.0-4.8) k/uL Myelocytes # (Manual) (0) k/uL Retic Count (0.5-2.0) % PT (9.0-12.0) sec INR (<1.2) D-Dimer (<0.60) mg/L FEU ABG pH (7.35-7.45) ABG pCO2 (35-45) mmHg ABG pO2 (83-108) mmHg ABG Total CO2 (19-24) mmol/L ABG O2 Saturation (94-97) % Chloride 110 H (98-107) mmol/L BUN 33 H (7-17) mg/dL Creatinine (0.52-1.04) mg/dL Glucose 175 H (74-99) mg/dL POC Glucose (mg/dL) (75-99) mg/dL Plasma Lactic Acid [place] (0.7-2.0) mmol/L Calcium 7.3 L (8.4-10.2) mg/dL Magnesium (1.6-2.3) mg/dL Ferritin (10.0-291.0) ng/mL AST 2795 H (14-36) U/L ALT 1222 H (4-34) U/L Alkaline Phosphatase (38-126) U/L Lactate Dehydrogenase (313-618) U/L Troponin I (0.000-0.034) ng/mL C-Reactive Protein (<10.0) mg/L Total Protein (6.3-8.2) g/dL Albumin (3.5-5.0) g/dL Procalcitonin (0.02-0.09) ng/mL 03/26/20 03/26/20 03/26/20 Range/Units 03:03 05:04 11:37 WBC (3.8-10.6) k/uL RBC (3.80-5.40) m/uL Hgb (11.4-16.0) gm/dL Hct (34.0-46.0) % MCHC (31.0-37.0) g/dL RDW (11.5-15.5) % Neutrophils # (1.3-7.7) k/uL Neutrophils # (Manual) (1.3-7.7) k/uL Lymphocytes # (1.0-4.8) k/uL Lymphocytes # (Manual) (1.0-4.8) k/uL Myelocytes # (Manual) (0) k/uL Retic Count 3.1 H (0.5-2.0) % PT (9.0-12.0) sec INR (<1.2) D-Dimer (<0.60) mg/L FEU ABG pH (7.35-7.45) ABG pCO2 (35-45) mmHg ABG pO2 112 H (83-108) mmHg ABG Total CO2 25 H (19-24) mmol/L ABG O2 Saturation 99.1 H (94-97) % Chloride (98-107) mmol/L BUN (7-17) mg/dL Creatinine (0.52-1.04) mg/dL Glucose (74-99) mg/dL POC Glucose (mg/dL) 245 H (75-99) mg/dL Plasma Lactic Acid [place] (0.7-2.0) mmol/L Calcium (8.4-10.2) mg/dL Magnesium (1.6-2.3) mg/dL Ferritin (10.0-291.0) ng/mL AST (14-36) U/L ALT (4-34) U/L Alkaline Phosphatase (38-126) U/L Lactate Dehydrogenase (313-618) U/L Troponin I (0.000-0.034) ng/mL C-Reactive Protein (<10.0) mg/L Total Protein (6.3-8.2) g/dL Albumin (3.5-5.0) g/dL Procalcitonin (0.02-0.09) ng/mL Microbiology - Last 24 Hours (Table) 03/26/20 04:02 Sputum Culture - Preliminary Sputum Diabetes panel 03/25/20 03/26/20 03/26/20 Range/Units 11:28 03:03 03:03 Sodium 141 138 (137-145) mmol/L Potassium 4.5 4.6 (3.5-5.1) mmol/L Chloride 106 110 H (98-107) mmol/L Carbon Dioxide 22 23 (22-30) mmol/L BUN 22 H 33 H (7-17) mg/dL Creatinine 1.09 H 0.96 (0.52-1.04) mg/dL Glucose 189 H 175 H (74-99) mg/dL Calcium 7.9 L 7.3 L (8.4-10.2) mg/dL AST 4151 H 2795 H (14-36) U/L ALT 1463 H 1222 H (4-34) U/L Alkaline Phosphatase 173 H 124 (38-126) U/L Total Protein 6.1 L (6.3-8.2) g/dL Albumin 2.8 L (3.5-5.0) g/dL Calcium panel 03/25/20 03/26/20 Range/Units 11:28 03:03 Calcium 7.9 L 7.3 L (8.4-10.2) mg/dL Albumin 2.8 L (3.5-5.0) g/dL Pituitary panel 03/25/20 03/26/20 Range/Units 11:28 03:03 Sodium 141 138 (137-145) mmol/L Potassium 4.5 4.6 (3.5-5.1) mmol/L Chloride 106 110 H (98-107) mmol/L Carbon Dioxide 22 23 (22-30) mmol/L BUN 22 H 33 H (7-17) mg/dL Creatinine 1.09 H 0.96 (0.52-1.04) mg/dL Glucose 189 H 175 H (74-99) mg/dL Calcium 7.9 L 7.3 L (8.4-10.2) mg/dL Adrenal panel 03/25/20 03/26/20 03/26/20 Range/Units 11:28 03:03 03:03 Sodium 141 138 (137-145) mmol/L Potassium 4.5 4.6 (3.5-5.1) mmol/L Chloride 106 110 H (98-107) mmol/L Carbon Dioxide 22 23 (22-30) mmol/L BUN 22 H 33 H (7-17) mg/dL Creatinine 1.09 H 0.96 (0.52-1.04) mg/dL Glucose 189 H 175 H (74-99) mg/dL Calcium 7.9 L 7.3 L (8.4-10.2) mg/dL Total Bilirubin 0.7 0.6 (0.2-1.3) mg/dL AST 4151 H 2795 H (14-36) U/L ALT 1463 H 1222 H (4-34) U/L Alkaline Phosphatase 173 H 124 (38-126) U/L Total Protein 6.1 L (6.3-8.2) g/dL Albumin 2.8 L (3.5-5.0) g/dL Assessment and Plan (1) GI bleed Narrative/Plan: 69-year-old female with GI bleed and anemia. We'll proceed with upper and lower endoscopy when stable. We'll reevaluate tomorrow. Current Visit: Yes Status: Acute Code(s): K92.2 - GASTROINTESTINAL HEMORRHAGE, UNSPECIFIED SNOMED Code(s): 97739468
--- NOTE | 2020-03-26 12:46 | P.CNPUL ---
History of Present Illness Consult date: 03/25/20 (Late entry note) Reason for consult: dyspnea, cough, hypoxemia, pneumonia Chief complaint: Shortness of breath History of present illness: Patient seen and evaluated examined in the emergency department, patient came in to the ER from the office of Dr. Aleman due to progressive shortness of breath, patient has acute on chronic hypoxic respiratory failure on 4 L oxygen, also has issues associated with pneumonia presumed to be cold with 19, however, testing was negative, patient used to smoke in the remote past quit about 20-30 years ago due to severity or shortness of breath and hypoxia with saturation of 76% on 100% oxygen and respiratory distress patient was intubated due to poor tolerance on BiPAP, patient Covid testing came back positive, chest x-ray showing diffuse infiltrate she also has been noted to have elevated liver enzymes due to elevated liver enzymes will not start IV REMdesivir, Initial ABG pH is 7.18, pCO2 is 63 pO2 was only 33 Review of Systems ROS unobtainable: due to endotracheal tube Past Medical History Past Medical History: Hypertension, Thyroid Disorder Additional Past Medical History / Comment(s): chronic ANEMIA- pt gets iron trans. every 8-12 weeks for over 12 years. Pt has a hx of a sm ulcer History of Any Multi-Drug Resistant Organisms: None Reported Past Surgical History: Hysterectomy, Joint Replacement, Orthopedic Surgery Additional Past Surgical History / Comment(s): LEFT KNEE ARTHROSCOPIC, carpal tunnel, left knee replacement, laser eye surgery Past Anesthesia/Blood Transfusion Reactions: No Reported Reaction Smoking Status: Former smoker - Past Family History Mother Family Medical History: No Reported History Medications and Allergies Home Medications Medication Instructions Recorded Confirmed Type Sertraline [Zoloft] 150 mg PO DAILY 08/23/14 03/25/20 History lisinopriL [Zestril] 10 mg PO DAILY 08/12/16 03/25/20 History Amitriptyline HCl [Elavil] 50 mg PO HS 03/10/20 03/25/20 History Cyclobenzaprine [Flexeril] 10 mg PO TID PRN 03/10/20 03/25/20 History Levothyroxine Sodium 200 mcg PO DAILY 03/10/20 03/25/20 History Sennosides [Senna] 17.2 mg PO HS PRN 03/10/20 03/25/20 History amLODIPine [Norvasc] 5 mg PO DAILY 03/10/20 03/25/20 History rOPINIRole HCL [Requip] 1 mg PO TID 03/10/20 03/25/20 History Omeprazole [PriLOSEC] 20 mg PO AC-BRKFST #90 cap 03/11/20 03/25/20 Rx Aspirin 81 mg PO BID 17 Days #34 chewable 03/12/20 03/25/20 Rx Azithromycin [Zithromax] 500 mg PO DAILY #3 tab 03/19/20 03/25/20 Rx Ferrous Sulfate [Iron (65 MG 325 mg PO BID-W/MEALS #60 tab 03/19/20 03/25/20 Rx Elemental)] guaiFENesin-DM 100-10MG/5ML 10 ml PO Q6H PRN #200 ml 03/19/20 03/25/20 Rx [Robitussin DM] Allergies Allergy/AdvReac Type Severity Reaction Status Date / Time meperidine HCl [From Demerol] Allergy Rash/Hives Verified 03/25/20 11:11 Penicillins Allergy Rash/Hives Verified 03/25/20 11:11 Sulfa (Sulfonamide Allergy Rash/Hives Verified 03/25/20 11:11 Antibiotics) Physical Exam Vitals: Vital Signs Temp Pulse Resp BP Pulse Ox 03/26/20 12:00 97.9 F 77 25 H 139/76 92 L 03/26/20 11:30 72 20 130/75 96 03/26/20 11:00 62 22 139/74 95 03/26/20 10:30 71 25 H 123/78 92 L 03/26/20 10:00 76 26 H 123/70 87 L 03/26/20 09:30 61 22 113/59 94 L 03/26/20 09:00 98.7 F 58 L 24 110/59 96 03/26/20 08:30 58 L 24 136/69 96 03/26/20 08:00 66 24 119/62 96 03/26/20 07:30 59 L 24 129/68 97 03/26/20 07:00 64 24 145/72 96 03/26/20 06:30 58 L 24 153/73 97 03/26/20 06:00 56 L 24 107/60 98 03/26/20 05:30 51 L 24 102/60 96 03/26/20 05:00 52 L 24 101/56 98 03/26/20 04:30 52 L 24 109/62 98 03/26/20 04:00 98.8 F 56 L 24 121/66 98 03/26/20 03:30 56 L 24 109/61 100 03/26/20 03:00 53 L 24 104/59 100 03/26/20 02:30 56 L 24 103/69 100 03/26/20 02:00 54 L 24 91/53 100 03/26/20 01:30 52 L 24 93/56 100 03/26/20 01:00 54 L 24 90/57 100 03/26/20 00:00 53 L 24 89/56 100 03/25/20 23:00 98.9 F 57 L 24 102/67 100 03/25/20 22:14 80 18 134/76 98 03/25/20 20:00 80 16 133/75 94 L 03/25/20 18:48 92 18 151/79 92 L 03/25/20 18:00 92 18 144/81 95 03/25/20 17:00 98 14 158/72 94 L 03/25/20 16:00 98.3 F 98 14 176/97 96 03/25/20 15:00 101 H 14 171/89 97 03/25/20 14:00 102 H 14 181/89 95 Intake and Output 03/25/20 03/26/20 03/26/20 22:59 06:59 14:59 Intake Total 1160 700 Output Total 260 125 240 Balance -260 1035 460 Intake: IV 960 600 0.9 NaCl- 460 600 0.9 NaCl- Bolus 500 Intake, IV Titration 200 100 Amount propofoL 1,000 mg In 200 100 Empty Bag 1 bag @ Titrate IV .Q0M [facility] Rx#: [id number] Output: Gastric Drainage 10 Urine 250 125 240 Other: Voiding Method Indwelling Catheter Indwelling Catheter Weight 85.3 kg 85.3 kg Intubated sedated with propofol - Constitutional General appearance: average body habitus, mild distress - EENT Ears: bilateral: normal - Neck Carotids: bilateral: upstroke normal Thyroid: bilateral: normal size - Respiratory Respiratory: bilateral: diminished - Cardiovascular Rhythm: regular Heart sounds: normal: S1, S2 - Gastrointestinal General gastrointestinal: normal bowel sounds Sedated with propofol on full ventilator support with 100% oxygen and assist control mode Results - Laboratory Findings CBC and BMP: 03/26/20 03:03 03/26/20 03:03 ABG ABG pH 7.39 (7.35-7.45) 03/26/20 05:04 ABG pCO2 40 mmHg (35-45) 03/26/20 05:04 ABG pO2 112 mmHg (83-108) H 03/26/20 05:04 ABG O2 Saturation 99.1 % (94-97) H 03/26/20 05:04 PT/INR, D-dimer PT 21.2 sec (9.0-12.0) H 03/25/20 11:28 INR 2.2 (<1.2) H 03/25/20 11:28 D-Dimer 4.08 mg/L FEU (<0.60) H 03/25/20 22:02 Abnormal lab findings: Abnormal Labs 03/25/20 03/25/20 03/25/20 11:28 11:28 11:28 WBC 11.5 H RBC 3.35 L Hgb 9.2 L Hct 30.2 L MCHC 30.5 L RDW 16.7 H Neutrophils # Neutrophils # (Manual) 10.50 H Lymphocytes # Lymphocytes # (Manual) 0.46 L Myelocytes # (Manual) 0.12 H Retic Count PT 21.2 H INR 2.2 H D-Dimer ABG pH ABG pCO2 ABG pO2 ABG Total CO2 ABG O2 Saturation Chloride BUN 22 H Creatinine 1.09 H Glucose 189 H POC Glucose (mg/dL) Plasma Lactic Acid [place] Calcium 7.9 L Magnesium 2.6 H Ferritin 89841.7 H AST 4151 H ALT 1463 H Alkaline Phosphatase 173 H Lactate Dehydrogenase >85733 H Troponin I C-Reactive Protein 261.3 H Total Protein 6.1 L Albumin 2.8 L Procalcitonin Coronavirus (PCR) 03/25/20 03/25/20 03/25/20 11:28 11:28 11:34 WBC RBC Hgb Hct MCHC RDW Neutrophils # Neutrophils # (Manual) Lymphocytes # Lymphocytes # (Manual) Myelocytes # (Manual) Retic Count PT INR D-Dimer ABG pH ABG pCO2 ABG pO2 ABG Total CO2 ABG O2 Saturation Chloride BUN Creatinine Glucose POC Glucose (mg/dL) Plasma Lactic Acid [place] 5.9 H* Calcium Magnesium Ferritin AST ALT Alkaline Phosphatase Lactate Dehydrogenase Troponin I 0.062 H* C-Reactive Protein Total Protein Albumin Procalcitonin Coronavirus (PCR) Detected A 03/25/20 03/25/20 03/25/20 13:12 14:10 15:59 WBC RBC Hgb Hct MCHC RDW Neutrophils # Neutrophils # (Manual) Lymphocytes # Lymphocytes # (Manual) Myelocytes # (Manual) Retic Count PT INR D-Dimer ABG pH 7.18 L* 7.19 L* 7.28 L ABG pCO2 63 H 62 H 52 H ABG pO2 33 L* 81 L 125 H ABG Total CO2 25 H 25 H 26 H ABG O2 Saturation 38.4 L 91.0 L 98.8 H Chloride BUN Creatinine Glucose POC Glucose (mg/dL) Plasma Lactic Acid [place] Calcium Magnesium Ferritin AST ALT Alkaline Phosphatase Lactate Dehydrogenase Troponin I C-Reactive Protein Total Protein Albumin Procalcitonin Coronavirus (PCR) 03/25/20 03/25/20 03/25/20 22:02 22:02 22:02 WBC 11.2 H RBC 2.75 L Hgb 7.7 L D Hct 25.3 L MCHC 30.3 L RDW 16.8 H Neutrophils # 10.4 H Neutrophils # (Manual) Lymphocytes # 0.5 L Lymphocytes # (Manual) Myelocytes # (Manual) Retic Count PT INR D-Dimer 4.08 H ABG pH ABG pCO2 ABG pO2 ABG Total CO2 ABG O2 Saturation Chloride BUN Creatinine Glucose POC Glucose (mg/dL) Plasma Lactic Acid [place] Calcium Magnesium Ferritin AST ALT Alkaline Phosphatase Lactate Dehydrogenase Troponin I C-Reactive Protein Total Protein Albumin Procalcitonin 0.84 H Coronavirus (PCR) 03/25/20 03/26/20 03/26/20 22:40 03:03 03:03 WBC 11.5 H RBC 2.86 L Hgb 7.9 L Hct 26.9 L MCHC 29.4 L RDW 16.5 H Neutrophils # 10.5 H Neutrophils # (Manual) Lymphocytes # 0.6 L Lymphocytes # (Manual) Myelocytes # (Manual) Retic Count PT INR D-Dimer ABG pH ABG pCO2 ABG pO2 ABG Total CO2 ABG O2 Saturation Chloride 110 H BUN 33 H Creatinine Glucose 175 H POC Glucose (mg/dL) 222 H Plasma Lactic Acid [place] Calcium 7.3 L Magnesium Ferritin AST ALT Alkaline Phosphatase Lactate Dehydrogenase Troponin I C-Reactive Protein Total Protein Albumin Procalcitonin Coronavirus (PCR) 03/26/20 03/26/20 03/26/20 03:03 03:03 05:04 WBC RBC Hgb Hct MCHC RDW Neutrophils # Neutrophils # (Manual) Lymphocytes # Lymphocytes # (Manual) Myelocytes # (Manual) Retic Count 3.1 H PT INR D-Dimer ABG pH ABG pCO2 ABG pO2 112 H ABG Total CO2 25 H ABG O2 Saturation 99.1 H Chloride BUN Creatinine Glucose POC Glucose (mg/dL) Plasma Lactic Acid [place] Calcium Magnesium Ferritin AST 2795 H ALT 1222 H Alkaline Phosphatase Lactate Dehydrogenase Troponin I C-Reactive Protein Total Protein Albumin Procalcitonin Coronavirus (PCR) 03/26/20 11:37 WBC RBC Hgb Hct MCHC RDW Neutrophils # Neutrophils # (Manual) Lymphocytes # Lymphocytes # (Manual) Myelocytes # (Manual) Retic Count PT INR D-Dimer ABG pH ABG pCO2 ABG pO2 ABG Total CO2 ABG O2 Saturation Chloride BUN Creatinine Glucose POC Glucose (mg/dL) 245 H Plasma Lactic Acid [place] Calcium Magnesium Ferritin AST ALT Alkaline Phosphatase Lactate Dehydrogenase Troponin I C-Reactive Protein Total Protein Albumin Procalcitonin Coronavirus (PCR) - Diagnostic Findings Chest x-ray: report reviewed, image reviewed (Finding as above stable position of OG tube ET tube very dense bilateral infiltrate with air bronchogram) Assessment and Plan Assessment: Acute hypoxic respiratory failure Covid19 pneumonia Acute respiratory and metabolic acidosis Acute hepatitis/elevated liver enzymes Chronic anemia Fibromyalgia Hypertension hypertensive cardiovascular disease Plan: Ventilator support adjustment of ventilator as per clinical response and arterial blood gases Admitted into ICU IV fluids with gentle hydration Repeat liver enzymes Patient is not a candidate for IV REMdesivir IV steroids Further recommendations pending plan of care as per clinical response of patient Time with Patient: Greater than 30
[2020-03-26 12:51] LABS: Reticulocyte % 3.1 % (0.5-2.0)
--- NOTE | 2020-03-26 12:55 | P.PN ---
Subjective Progress Note Date: 03/26/20 (Critical care time 35 minutes) Principal diagnosis: Acute hypoxic respiratory failure Covid19 pneumonia Acute respiratory and metabolic acidosis Acute hepatitis/elevated liver enzymes Suspect acute on chronic systolic heart failure as well Chronic anemia Fibromyalgia Hypertension hypertensive cardiovascular disease 03/26/2020, patient seen eval examined in the ICU care plan discussed with the staff, FiO2 has been down to 60%, patient remains on assist control tidal volume of 450, PEEP is 10, respiratory rate is 24 breathing with the respirator pH has been improved significantly, patient is making adequate urine chest x-ray compared with yesterday's x-ray some improvement have been noted, white cell count is 11,000, hemoglobin 7.9 which is stable, arterial blood gas improved to 7.39, pCO2 of 40, pO2 112, BUN/creatinine is 33/0.96, lactic acid was 5.9 down to 1.3 now, ferritin level noted to be 12,800, AST and ALT are 4014 100 with LDH over 21,500, today LFTs significantly improved AST is down to 2795 and ALT is 1222, pro calcitonin is 0.84, suspect some component of heart failure as well as pneumonia, will get an echocardiogram as well as start patient on broad-spectrum antibiotics with cefepime and Vanco Patient seen and evaluated examined in the emergency department, patient came into the ER from the office of Dr. Aleman due to progressive shortness of breath, patient has acute on chronic hypoxic respiratory failure on 4 L oxygen, also has issues associated with pneumonia presumed to be cold with 19, however, testing was negative, patient used to smoke in the remote past quit about 20-30 years ago due to severity or shortness of breath and hypoxia with saturation of 76% on 100% oxygen and respiratory distress patient was intubated due to poor tolerance on BiPAP, patient Covid testing came back positive, chest x-ray showing diffuse infiltrate she also has been noted to have elevated liver enzymes due to elevated liver enzymes will not start IV REMdesivir, Initial ABG pH is 7.18, pCO2 is 63 pO2 was only 33 Objective - Vital Signs Vital signs: Vital Signs Temp 97.9 F 03/26/20 12:00 Pulse 77 03/26/20 12:00 Resp 25 H 03/26/20 12:00 BP 139/76 03/26/20 12:00 Pulse Ox 92 L 03/26/20 12:00 Intake & Output 03/25/20 03/26/20 03/26/20 18:59 06:59 18:59 Intake Total 1160 700 Output Total 260 125 240 Balance -260 1035 460 Weight 79.379 kg 85.3 kg 85.3 kg Intake: IV 960 600 0.9 NaCl- 460 600 0.9 NaCl- Bolus 500 Intake, IV Titration 200 100 Amount propofoL 1,000 mg In 200 100 Empty Bag 1 bag @ Titrate IV .Q0M [facility] Rx#: [id number] Output: Gastric Drainage 10 Urine 250 125 240 Other: Voiding Method Indwelling Catheter Indwelling Catheter - Exam Intubated sedated with propofol - Constitutional General appearance: average body habitus, mild distress - EENT Ears: bilateral: normal - Neck Carotids: bilateral: upstroke normal Thyroid: bilateral: normal size - Respiratory Respiratory: bilateral: diminished - Cardiovascular Rhythm: regular Heart sounds: normal: S1, S2 - Gastrointestinal General gastrointestinal: normal bowel sounds Sedated with propofol on full ventilator support with 100% oxygen and assist control mode - Labs CBC & Chem 7: 03/26/20 03:03 03/26/20 03:03 Labs: Abnormal Lab Results - Last 24 Hours (Table) 03/25/20 03/25/20 03/25/20 Range/Units 11:28 13:12 14:10 WBC (3.8-10.6) k/uL RBC (3.80-5.40) m/uL Hgb (11.4-16.0) gm/dL Hct (34.0-46.0) % MCHC (31.0-37.0) g/dL RDW (11.5-15.5) % Neutrophils # (1.3-7.7) k/uL Lymphocytes # (1.0-4.8) k/uL Retic Count (0.5-2.0) % D-Dimer (<0.60) mg/L FEU ABG pH 7.18 L* 7.19 L* (7.35-7.45) ABG pCO2 63 H 62 H (35-45) mmHg ABG pO2 33 L* 81 L (83-108) mmHg ABG Total CO2 25 H 25 H (19-24) mmol/L ABG O2 Saturation 38.4 L 91.0 L (94-97) % Chloride (98-107) mmol/L BUN (7-17) mg/dL Glucose (74-99) mg/dL POC Glucose (mg/dL) (75-99) mg/dL Calcium (8.4-10.2) mg/dL Ferritin 17331.7 H (10.0-291.0) ng/mL AST 4151 H (14-36) U/L ALT (4-34) U/L Lactate Dehydrogenase >74813 H (313-618) U/L Procalcitonin (0.02-0.09) ng/mL 03/25/20 03/25/20 03/25/20 Range/Units 15:59 22:02 22:02 WBC 11.2 H (3.8-10.6) k/uL RBC 2.75 L (3.80-5.40) m/uL Hgb 7.7 L D (11.4-16.0) gm/dL Hct 25.3 L (34.0-46.0) % MCHC 30.3 L (31.0-37.0) g/dL RDW 16.8 H (11.5-15.5) % Neutrophils # 10.4 H (1.3-7.7) k/uL Lymphocytes # 0.5 L (1.0-4.8) k/uL Retic Count (0.5-2.0) % D-Dimer 4.08 H (<0.60) mg/L FEU ABG pH 7.28 L (7.35-7.45) ABG pCO2 52 H (35-45) mmHg ABG pO2 125 H (83-108) mmHg ABG Total CO2 26 H (19-24) mmol/L ABG O2 Saturation 98.8 H (94-97) % Chloride (98-107) mmol/L BUN (7-17) mg/dL Glucose (74-99) mg/dL POC Glucose (mg/dL) (75-99) mg/dL Calcium (8.4-10.2) mg/dL Ferritin (10.0-291.0) ng/mL AST (14-36) U/L ALT (4-34) U/L Lactate Dehydrogenase (313-618) U/L Procalcitonin (0.02-0.09) ng/mL 03/25/20 03/25/20 03/26/20 Range/Units 22:02 22:40 03:03 WBC 11.5 H (3.8-10.6) k/uL RBC 2.86 L (3.80-5.40) m/uL Hgb 7.9 L (11.4-16.0) gm/dL Hct 26.9 L (34.0-46.0) % MCHC 29.4 L (31.0-37.0) g/dL RDW 16.5 H (11.5-15.5) % Neutrophils # 10.5 H (1.3-7.7) k/uL Lymphocytes # 0.6 L (1.0-4.8) k/uL Retic Count (0.5-2.0) % D-Dimer (<0.60) mg/L FEU ABG pH (7.35-7.45) ABG pCO2 (35-45) mmHg ABG pO2 (83-108) mmHg ABG Total CO2 (19-24) mmol/L ABG O2 Saturation (94-97) % Chloride (98-107) mmol/L BUN (7-17) mg/dL Glucose (74-99) mg/dL POC Glucose (mg/dL) 222 H (75-99) mg/dL Calcium (8.4-10.2) mg/dL Ferritin (10.0-291.0) ng/mL AST (14-36) U/L ALT (4-34) U/L Lactate Dehydrogenase (313-618) U/L Procalcitonin 0.84 H (0.02-0.09) ng/mL 03/26/20 03/26/20 03/26/20 Range/Units 03:03 03:03 03:03 WBC (3.8-10.6) k/uL RBC (3.80-5.40) m/uL Hgb (11.4-16.0) gm/dL Hct (34.0-46.0) % MCHC (31.0-37.0) g/dL RDW (11.5-15.5) % Neutrophils # (1.3-7.7) k/uL Lymphocytes # (1.0-4.8) k/uL Retic Count 3.1 H (0.5-2.0) % D-Dimer (<0.60) mg/L FEU ABG pH (7.35-7.45) ABG pCO2 (35-45) mmHg ABG pO2 (83-108) mmHg ABG Total CO2 (19-24) mmol/L ABG O2 Saturation (94-97) % Chloride 110 H (98-107) mmol/L BUN 33 H (7-17) mg/dL Glucose 175 H (74-99) mg/dL POC Glucose (mg/dL) (75-99) mg/dL Calcium 7.3 L (8.4-10.2) mg/dL Ferritin (10.0-291.0) ng/mL AST 2795 H (14-36) U/L ALT 1222 H (4-34) U/L Lactate Dehydrogenase (313-618) U/L Procalcitonin (0.02-0.09) ng/mL 03/26/20 03/26/20 Range/Units 05:04 11:37 WBC (3.8-10.6) k/uL RBC (3.80-5.40) m/uL Hgb (11.4-16.0) gm/dL Hct (34.0-46.0) % MCHC (31.0-37.0) g/dL RDW (11.5-15.5) % Neutrophils # (1.3-7.7) k/uL Lymphocytes # (1.0-4.8) k/uL Retic Count (0.5-2.0) % D-Dimer (<0.60) mg/L FEU ABG pH (7.35-7.45) ABG pCO2 (35-45) mmHg ABG pO2 112 H (83-108) mmHg ABG Total CO2 25 H (19-24) mmol/L ABG O2 Saturation 99.1 H (94-97) % Chloride (98-107) mmol/L BUN (7-17) mg/dL Glucose (74-99) mg/dL POC Glucose (mg/dL) 245 H (75-99) mg/dL Calcium (8.4-10.2) mg/dL Ferritin (10.0-291.0) ng/mL AST (14-36) U/L ALT (4-34) U/L Lactate Dehydrogenase (313-618) U/L Procalcitonin (0.02-0.09) ng/mL Microbiology - Last 24 Hours (Table) 03/26/20 04:02 Sputum Culture - Preliminary Sputum Assessment and Plan Assessment: Acute hypoxic respiratory failure Covid19 pneumonia Acute pneumonia bacterial Acute respiratory and metabolic acidosis Acute hepatitis/elevated liver enzymes Chronic anemia Fibromyalgia Hypertension hypertensive cardiovascular disease Plan: Ventilator support adjustment of ventilator as per clinical response and arter ial blood gases IV antibiotics broad-spectrum Sputum culture and blood culture IV fluids with gentle hydration Repeat liver enzymes Patient is not a candidate for IV REMdesivir IV steroids Further recommendations pending plan of care as per clinical response of patient
[2020-03-26] MEDS ORDERED: VANCOMYCIN IV PER PHARMACY 1 EACH MISC MISCELLANE PRN (13:15)
[2020-03-26] MEDS: VANCOMYCIN 1,500 MG in SODIUM CHLORIDE 0.9% 250 ML IVPB SCH (14:53)
[2020-03-26 17:18] LABS: % Iron Saturation 32.54 (12.00-45.00)
[2020-03-26 18:14] LABS: Glucose,Whole Blood 221 mg/dL (75-99)
[2020-03-26 18:46] LABS: Hepatitis A Antibody IgM Non-Reactive (Non-Reactive); Hepatitis B Core IgM Non-Reactive (Non-Reactive); Hepatitis B Surface Antigen Non-Reactive (Non-Reactive); Hepatitis C IgG Antibody Non-Reactive (Non-Reactive)
[2020-03-26 20:31] LABS: Anisocytosis Slight; Basophils % (A) 0 %; Eosinophils % (A) 0 %; HGB 7.6 gm/dL (11.4-16.0); Hypochromasia Marked; Lymphocytes # (A) 0.7 k/uL (1.0-4.8); Lymphocytes % (A) 6 %; MCH 26.8 pg (25.0-35.0); MCV 92.4 fL (80.0-100.0); Mean Platelet Volume 9.3; Monocytes # (A) 0.2 k/uL (0-1.0); Monocytes % (A) 2 %; Neutrophils # (A) 9.8 k/uL (1.3-7.7); Neutrophils % (A) 91 %; Platelet Count 247 k/uL (150-450); Poikilocytosis Moderate; RBC 2.81 m/uL (3.80-5.40); RDW 16.6 % (11.5-15.5); WBC 10.8 k/uL (3.8-10.6)
--- NOTE | 2020-03-26 21:49 | P.CONS ---
History of Present Illness - Reason for Consult Consult date: 03/26/20 Elevated liver enzymes Requesting physician: Cody Aleman - Chief Complaint Shortness of breath - History of Present Illness 69-year-old female with a medical history significant for hypertension, hypothyroidism, anemia on iron therapy and recent admission for pneumonia who presented to the hospital for worsening shortness of breath. She has recent hospitalization for treatment of pneumonia but presented back to the hospital due to worsening shortness of breath. At that time she was also seen for issues with chronic anemia with plan for outpatient evaluation. The patient is currently intubated and sedated in the intensive care unit due to testing positive for infection with COVID-19. The patient was found to have markedly elevated liver enzymes on presentation with a total bilirubin 0.7, alkaline phosphatase 173, AST 4151 and ALTs 1463. No history of underlying liver disease other laboratory evaluation significant for WBC 11.5, hemoglobin 7.9, platelet count 275,000 with amylase 86 and lipase 178. Ultrasound of the liver showed an area of hyperechoic attenuation near the hepatic cortex may be related to hemangioma with mass not excluded as well as cholelithiasis. Review of Systems Review of systems cannot be obtained and the patient is currently intubated and sedated ROS unobtainable: due to mental status Past Medical History Past Medical History: Hypertension, Thyroid Disorder Additional Past Medical History / Comment(s): chronic ANEMIA- pt gets iron trans. every 8-12 weeks for over 12 years. Pt has a hx of a sm ulcer History of Any Multi-Drug Resistant Organisms: None Reported Past Surgical History: Hysterectomy, Joint Replacement, Orthopedic Surgery Additional Past Surgical History / Comment(s): LEFT KNEE ARTHROSCOPIC, carpal tunnel, left knee replacement, laser eye surgery Past Anesthesia/Blood Transfusion Reactions: No Reported Reaction Smoking Status: Former smoker - Past Family History Mother Family Medical History: No Reported History Medications and Allergies Home Medications Medication Instructions Recorded Confirmed Type Sertraline [Zoloft] 150 mg PO DAILY 08/23/14 03/25/20 History lisinopriL [Zestril] 10 mg PO DAILY 08/12/16 03/25/20 History Amitriptyline HCl [Elavil] 50 mg PO HS 03/10/20 03/25/20 History Cyclobenzaprine [Flexeril] 10 mg PO TID PRN 03/10/20 03/25/20 History Levothyroxine Sodium 200 mcg PO DAILY 03/10/20 03/25/20 History Sennosides [Senna] 17.2 mg PO HS PRN 03/10/20 03/25/20 History amLODIPine [Norvasc] 5 mg PO DAILY 03/10/20 03/25/20 History rOPINIRole HCL [Requip] 1 mg PO TID 03/10/20 03/25/20 History Omeprazole [PriLOSEC] 20 mg PO AC-BRKFST #90 cap 03/11/20 03/25/20 Rx Aspirin 81 mg PO BID 17 Days #34 chewable 03/12/20 03/25/20 Rx Azithromycin [Zithromax] 500 mg PO DAILY #3 tab 03/19/20 03/25/20 Rx Ferrous Sulfate [Iron (65 MG 325 mg PO BID-W/MEALS #60 tab 03/19/20 03/25/20 Rx Elemental)] guaiFENesin-DM 100-10MG/5ML 10 ml PO Q6H PRN #200 ml 03/19/20 03/25/20 Rx [Robitussin DM] Allergies Allergy/AdvReac Type Severity Reaction Status Date / Time meperidine HCl [From Demerol] Allergy Rash/Hives Verified 03/25/20 11:11 Penicillins Allergy Rash/Hives Verified 03/25/20 11:11 Sulfa (Sulfonamide Allergy Rash/Hives Verified 03/25/20 11:11 Antibiotics) Physical Exam Vitals: Vital Signs Temp Pulse Resp BP Pulse Ox 03/26/20 21:00 52 L 24 100/54 99 03/26/20 20:00 97.8 F 52 L 22 100/57 99 03/26/20 19:00 53 L 24 97/76 98 03/26/20 18:30 60 24 125/64 100 03/26/20 18:00 60 24 100/58 95 03/26/20 17:30 52 L 24 100/58 98 03/26/20 17:00 53 L 24 101/57 98 03/26/20 16:30 52 L 24 97/55 98 03/26/20 16:00 97.8 F 52 L 24 98/56 98 03/26/20 15:30 54 L 24 121/73 98 03/26/20 15:00 70 24 104/57 92 L 03/26/20 14:30 56 L 24 105/60 97 03/26/20 14:00 58 L 24 110/59 97 03/26/20 13:30 59 L 24 112/60 96 03/26/20 13:00 59 L 24 113/62 97 03/26/20 12:30 61 22 138/71 97 03/26/20 12:00 97.9 F 77 25 H 139/76 92 L 03/26/20 11:30 72 20 130/75 96 03/26/20 11:00 62 22 139/74 95 03/26/20 10:30 71 25 H 123/78 92 L 03/26/20 10:00 76 26 H 123/70 87 L 03/26/20 09:30 61 22 113/59 94 L 03/26/20 09:00 98.7 F 58 L 24 110/59 96 03/26/20 08:30 58 L 24 136/69 96 03/26/20 08:00 66 24 119/62 96 03/26/20 07:30 59 L 24 129/68 97 03/26/20 07:00 64 24 145/72 96 03/26/20 06:30 58 L 24 153/73 97 03/26/20 06:00 56 L 24 107/60 98 03/26/20 05:30 51 L 24 102/60 96 03/26/20 05:00 52 L 24 101/56 98 03/26/20 04:30 52 L 24 109/62 98 03/26/20 04:00 98.8 F 56 L 24 121/66 98 03/26/20 03:30 56 L 24 109/61 100 03/26/20 03:00 53 L 24 104/59 100 03/26/20 02:30 56 L 24 103/69 100 03/26/20 02:00 54 L 24 91/53 100 03/26/20 01:30 52 L 24 93/56 100 03/26/20 01:00 54 L 24 90/57 100 03/26/20 00:00 53 L 24 89/56 100 03/25/20 23:00 98.9 F 57 L 24 102/67 100 03/25/20 22:14 80 18 134/76 98 Intake and Output 03/26/20 03/26/20 03/26/20 06:59 14:59 22:59 Intake Total 1160 1000 515.764 Output Total 125 360 125 Balance 1035 640 390.764 Intake: IV 960 900 320 0.9 NaCl- 460 900 320 0.9 NaCl- Bolus 500 Intake, IV Titration 200 100 195.764 Amount propofoL 1,000 mg In 200 100 195.764 Empty Bag 1 bag @ Titrate IV .Q0M [facility] Rx#: [id number] Output: Urine 125 360 125 Other: Voiding Method Indwelling Catheter Indwelling Catheter Indwelling Catheter # Bowel Movements 1 Weight 85.3 kg 85.3 kg On physical examination, patient appears comfortable in no apparent distress. HEAD: Normocephalic, atraumatic. EYES: No scleral icterus. No conjunctival injection. MOUTH: No lesions, tongue midline. NECK: Trachea midline, no gross abnormalities. CHEST: Coarse respiratory noises in all lung grant secondary to mechanical ventilation. HEART: S1-S2 appreciated. ABDOMEN: Soft, nontender to palpation. Bowel sounds are positive. No organomegaly. No guarding or rigidity. EXTREMITIES: No pedal edema. SKIN: No rashes, no jaundice. NEUROLOGIC: No apparent distress, intubated and sedated. Results CBC & Chem 7: 03/26/20 19:06 03/26/20 03:03 Labs: Abnormal Lab Results - Last 24 Hours (Table) 03/25/20 03/25/20 03/25/20 Range/Units 11:28 22:02 22:02 WBC 11.2 H (3.8-10.6) k/uL RBC 2.75 L (3.80-5.40) m/uL Hgb 7.7 L D (11.4-16.0) gm/dL Hct 25.3 L (34.0-46.0) % MCHC 30.3 L (31.0-37.0) g/dL RDW 16.8 H (11.5-15.5) % Neutrophils # 10.4 H (1.3-7.7) k/uL Lymphocytes # 0.5 L (1.0-4.8) k/uL Retic Count (0.5-2.0) % D-Dimer 4.08 H (<0.60) mg/L FEU ABG pO2 (83-108) mmHg ABG Total CO2 (19-24) mmol/L ABG O2 Saturation (94-97) % Chloride (98-107) mmol/L BUN (7-17) mg/dL Glucose (74-99) mg/dL POC Glucose (mg/dL) (75-99) mg/dL Calcium (8.4-10.2) mg/dL TIBC (228-460) ug/dL Ferritin 72771.7 H (10.0-291.0) ng/mL AST (14-36) U/L ALT (4-34) U/L Vitamin B12 (200.0-944.0) pg/mL Procalcitonin (0.02-0.09) ng/mL 03/25/20 03/25/20 03/26/20 Range/Units 22:02 22:40 03:03 WBC 11.5 H (3.8-10.6) k/uL RBC 2.86 L (3.80-5.40) m/uL Hgb 7.9 L (11.4-16.0) gm/dL Hct 26.9 L (34.0-46.0) % MCHC 29.4 L (31.0-37.0) g/dL RDW 16.5 H (11.5-15.5) % Neutrophils # 10.5 H (1.3-7.7) k/uL Lymphocytes # 0.6 L (1.0-4.8) k/uL Retic Count (0.5-2.0) % D-Dimer (<0.60) mg/L FEU ABG pO2 (83-108) mmHg ABG Total CO2 (19-24) mmol/L ABG O2 Saturation (94-97) % Chloride (98-107) mmol/L BUN (7-17) mg/dL Glucose (74-99) mg/dL POC Glucose (mg/dL) 222 H (75-99) mg/dL Calcium (8.4-10.2) mg/dL TIBC (228-460) ug/dL Ferritin (10.0-291.0) ng/mL AST (14-36) U/L ALT (4-34) U/L Vitamin B12 (200.0-944.0) pg/mL Procalcitonin 0.84 H (0.02-0.09) ng/mL 03/26/20 03/26/20 03/26/20 Range/Units 03:03 03:03 03:03 WBC (3.8-10.6) k/uL RBC (3.80-5.40) m/uL Hgb (11.4-16.0) gm/dL Hct (34.0-46.0) % MCHC (31.0-37.0) g/dL RDW (11.5-15.5) % Neutrophils # (1.3-7.7) k/uL Lymphocytes # (1.0-4.8) k/uL Retic Count 3.1 H (0.5-2.0) % D-Dimer (<0.60) mg/L FEU ABG pO2 (83-108) mmHg ABG Total CO2 (19-24) mmol/L ABG O2 Saturation (94-97) % Chloride 110 H (98-107) mmol/L BUN 33 H (7-17) mg/dL Glucose 175 H (74-99) mg/dL POC Glucose (mg/dL) (75-99) mg/dL Calcium 7.3 L (8.4-10.2) mg/dL TIBC (228-460) ug/dL Ferritin (10.0-291.0) ng/mL AST 2795 H (14-36) U/L ALT 1222 H (4-34) U/L Vitamin B12 (200.0-944.0) pg/mL Procalcitonin (0.02-0.09) ng/mL 03/26/20 03/26/20 03/26/20 Range/Units 05:04 09:32 11:37 WBC (3.8-10.6) k/uL RBC (3.80-5.40) m/uL Hgb (11.4-16.0) gm/dL Hct (34.0-46.0) % MCHC (31.0-37.0) g/dL RDW (11.5-15.5) % Neutrophils # (1.3-7.7) k/uL Lymphocytes # (1.0-4.8) k/uL Retic Count (0.5-2.0) % D-Dimer (<0.60) mg/L FEU ABG pO2 112 H (83-108) mmHg ABG Total CO2 25 H (19-24) mmol/L ABG O2 Saturation 99.1 H (94-97) % Chloride (98-107) mmol/L BUN (7-17) mg/dL Glucose (74-99) mg/dL POC Glucose (mg/dL) 245 H (75-99) mg/dL Calcium (8.4-10.2) mg/dL TIBC 209 L (228-460) ug/dL Ferritin (10.0-291.0) ng/mL AST (14-36) U/L ALT (4-34) U/L Vitamin B12 2321.0 H (200.0-944.0) pg/mL Procalcitonin (0.02-0.09) ng/mL 03/26/20 03/26/20 Range/Units 18:12 19:06 WBC 10.8 H (3.8-10.6) k/uL RBC 2.81 L (3.80-5.40) m/uL Hgb 7.6 L (11.4-16.0) gm/dL Hct 26.0 L (34.0-46.0) % MCHC 29.0 L (31.0-37.0) g/dL RDW 16.6 H (11.5-15.5) % Neutrophils # 9.8 H (1.3-7.7) k/uL Lymphocytes # 0.7 L (1.0-4.8) k/uL Retic Count (0.5-2.0) % D-Dimer (<0.60) mg/L FEU ABG pO2 (83-108) mmHg ABG Total CO2 (19-24) mmol/L ABG O2 Saturation (94-97) % Chloride (98-107) mmol/L BUN (7-17) mg/dL Glucose (74-99) mg/dL POC Glucose (mg/dL) 221 H (75-99) mg/dL Calcium (8.4-10.2) mg/dL TIBC (228-460) ug/dL Ferritin (10.0-291.0) ng/mL AST (14-36) U/L ALT (4-34) U/L Vitamin B12 (200.0-944.0) pg/mL Procalcitonin (0.02-0.09) ng/mL Microbiology - Last 24 Hours (Table) 03/26/20 04:02 Gram Stain - Preliminary Sputum Sputum Culture - Preliminary 03/25/20 11:58 Blood Culture - Preliminary Blood No Growth after 24 hours US - abdomen: report reviewed (Ultrasound of the abdomen with cholelithiasis as well as hyperechoic area adjacent to hepatic cortex may be related to hemangioma with mass not excluded.) Assessment and Plan (1) Elevated liver enzymes Narrative/Plan: 69-year-old female with multiple medical comorbidities who presented to the hospital due to worsening shortness of breath, currently the patient is intubated and sedated in the intensive care unit where she is being treated for infection with COVID-19. The patient was found to have markedly elevated liver enzymes on presentation which are currently trending down, with initial total bilirubin 0.7, alkaline phosphatase 173, AST 4151 and ALT 1463. Likely etiology of elevation in liver enzymes is underlying viral infection and hypoperfusion in the setting of sepsis, acute viral hepatitis panel was negative and ultrasound was significant only for cholelithiasis with a hyperechoic area in the liver likely related to hemangioma with a hepatic mass less likely in the absence of cirrhosis. Current Visit: Yes Status: Acute Code(s): R74.8 - ABNORMAL LEVELS OF OTHER SERUM ENZYMES SNOMED Code(s): 112631055 (2) COVID-19 Current Visit: Yes Status: Acute Code(s): U07.1 - COVID-19 SNOMED Code(s): 842136269 (3) Iron deficiency anemia due to chronic blood loss Current Visit: No Status: Acute Priority: High Code(s): D50.0 - IRON DEFICIENCY ANEMIA SECONDARY TO BLOOD LOSS (CHRONIC) SNOMED Code(s): 915966837 Plan: Supportive care Continue ICU management Continue to monitor CBC, BMP, LFTs Acute viral hepatitis panel negative Ultrasound of the abdomen essentially negative except for findings of cholelithiasis and a possible hemangioma versus mass which would be unlikely in the absence of cirrhosis, alpha-fetoprotein will be ordered to rule out hepatocellular carcinoma If liver enzymes do not improve full liver serology will be ordered to rule out any intrinsic liver disease Thank you for allowing us to participate in care of the patient we will continue to follow
[2020-03-26] MEDS: CEFEPIME 2 GM in SODIUM CHLORIDE 0.9% 100 ML IVPB SCH (22:24)
--- NOTE | 2020-03-26 22:59 | PN ---
PROGRESS NOTE DATE OF SERVICE: 03/26/2020 REASON FOR FOLLOWUP: Possible pneumonia. INTERVAL HISTORY: The patient remains intubated on the vent. FiO2 is currently down to 70%. No significant purulent secretions in the ET reported by the nursing staff and no diarrhea. The patient remains sedated on the vent. PHYSICAL EXAMINATION: Blood pressure 100/57, pulse of 52, temperature 97.8. She is 99% on 70% FiO2. General description is an elderly female intubated on the vent. RESPIRATORY SYSTEM: Unlabored breathing with decreased intensity of breath sounds. No wheeze. HEART: S1, S2. Regular rate and rhythm. ABDOMEN: Soft. No tenderness. EXTREMITIES: No edema of the feet. LABS: Hemoglobin is 16.3, white count of 10.8. DIAGNOSTIC IMPRESSION AND PLAN: Patient with acute respiratory failure which is likely multifactorial in this patient who did have COVID-19 pneumonia, now with possibly ARDS pattern; underlying pneumonia is not entirely excluded. Sputum culture currently pending. Vancomycin has been added by Pulmonary. Will add cefepime to cover for the Gram-negative while waiting for his condition to stabilize and the culture to finalize. Continue with supportive care. MMODL / IJN: [id number] / MTDD
[2020-03-27] MEDS: methylPREDNISolone SOD SUCCI 125 MG/2 ML VIAL IV SCH ×4 (00:19→17:44)
[2020-03-27 00:24] LABS: Glucose,Whole Blood 211 mg/dL (75-99)
[2020-03-27] MEDS: INSULIN ASPART (NovoLOG) 100 UNIT/ML VIAL SQ SCH ×5 (00:30→20:17)
[2020-03-27] MEDS: SODIUM CHLORIDE 0.9% 1,000 ML IV SCH ×3 (03:38→22:22)
[2020-03-27] MEDS: VANCOMYCIN 1,500 MG in SODIUM CHLORIDE 0.9% 250 ML IVPB SCH ×2 (05:28→22:19)
[2020-03-27 05:45] LABS: Glucose,Whole Blood 211 mg/dL (75-99)
[2020-03-27 06:01] LABS: ABG Base Excess -1.2 mmol/L; ABG HCO3 24 mmol/L (21-25); ABG Oxygen Saturation 99.6 % (94-97); ABG PCO2 39 mmHg (35-45); ABG PH 7.39 (7.35-7.45); ABG PO2 124 mmHg (83-108); ABG TCO2 25 mmol/L (19-24); Allen Test Performed? Yes
[2020-03-27 06:25] LABS: Anisocytosis Slight; Basophils % (A) 0 %; Eosinophils % (A) 0 %; HCT 24.6 % (34.0-46.0); HGB 7.2 gm/dL (11.4-16.0); Hypochromasia Marked; Lymphocytes # (A) 0.4 k/uL (1.0-4.8); Lymphocytes % (A) 4 %; MCH 27.3 pg (25.0-35.0); MCHC 29.5 g/dL (31.0-37.0); MCV 92.5 fL (80.0-100.0); Monocytes # (A) 0.2 k/uL (0-1.0); Monocytes % (A) 2 %; Neutrophils # (A) 9.8 k/uL (1.3-7.7); Neutrophils % (A) 93 %; Platelet Count 249 k/uL (150-450); Poikilocytosis Moderate; RBC 2.66 m/uL (3.80-5.40); RDW 16.8 % (11.5-15.5); WBC 10.5 k/uL (3.8-10.6)
[2020-03-27 06:35] LABS: Calcium 6.9 mg/dL (8.4-10.2); Potassium 4.4 mmol/L (3.5-5.1); Total Bilirubin 0.5 mg/dL (0.2-1.3); Total Protein 4.6 g/dL (6.3-8.2)
[2020-03-27] MEDS ORDERED: FUROSEMIDE 10 MG/ML 2 ML VIAL IV ONE (07:06)
--- NOTE | 2020-03-27 08:04 | XR ---
EXAMINATION TYPE: XR chest 1V portable DATE OF EXAM: 03/27/2020 COMPARISON: 03/26/2020 INDICATION: Covid TECHNIQUE: Single frontal view of the chest is obtained. FINDINGS: The heart size is normal. The pulmonary vasculature is prominent. Diffuse increased lung markings are present. Findings have improved over the interval Endotracheal tube tip is above the allison. Nasogastric tube is curled within the lower thoracic regio n. Hiatal hernia is likely present. IMPRESSION: 1. Improving diffuse infiltrate. 2. Lines and catheters discussed above
--- NOTE | 2020-03-27 08:31 | P.PN ---
Subjective Principal diagnosis: This is a continue progress note on 6-year-old white female with history of chronic anemia who is admitted for respiratory failure related to Covid pneumonia. The patient is intubated but has had some rectal bleeding. We will go ahead and type and screen for one unit. Otherwise appreciate multiple consultants input. Objective - Vital Signs Vital signs: Vital Signs Temp 96.3 F L 03/27/20 04:00 Pulse 50 L 03/27/20 07:00 Resp 24 03/27/20 07:00 BP 125/64 03/27/20 07:00 Pulse Ox 100 03/27/20 07:00 Intake & Output 03/26/20 03/27/20 03/27/20 18:59 06:59 18:59 Intake Total 0877.758 0021.442 125 Output Total 455 230 5 Balance 770.192 5467.442 120 Weight 85.3 kg Intake: IV 1200 845 125 0.9 NaCl- 1200 620 Cefepime 2 gm In Sodium 100 Chloride 0.9% 100 ml @ 25 mls/hr IVPB Q12HR NONA Rx #:[id number] Vancomycin 1,500 mg In 125 125 Sodium Chloride 0.9% 250 ml @ 125 mls/hr IVPB Q16H NONA Rx#:[id number] Intake, IV Titration 199.801 341.442 Amount propofoL 1,000 mg In 199.801 341.442 Empty Bag 1 bag @ Titrate IV .Q0M NONA Rx#: [id number] Oral 100 Output: Urine 455 230 5 Other: Voiding Method Indwelling Catheter Indwelling Catheter # Bowel Movements 1 - Constitutional General appearance: Present: average body habitus - EENT Eyes: Absent: abnormal pupil - Respiratory Respiratory: bilateral: diminished - Cardiovascular Rhythm: regular Heart sounds: normal: S1, S2 - Gastrointestinal General gastrointestinal: Present: soft. Absent: tenderness - Integumentary Integumentary: Absent: cellulitis - Psychiatric Psychiatric: Absent: A&O x's 3 - Labs CBC & Chem 7: 03/27/20 05:34 03/27/20 05:34 Labs: Abnormal Lab Results - Last 24 Hours (Table) 03/26/20 03/26/20 03/26/20 Range/Units 03:03 03:03 09:32 WBC (3.8-10.6) k/uL RBC (3.80-5.40) m/uL Hgb (11.4-16.0) gm/dL Hct (34.0-46.0) % MCHC (31.0-37.0) g/dL RDW (11.5-15.5) % Neutrophils # (1.3-7.7) k/uL Lymphocytes # (1.0-4.8) k/uL Retic Count 3.1 H (0.5-2.0) % ABG pO2 (83-108) mmHg ABG Total CO2 (19-24) mmol/L ABG O2 Saturation (94-97) % Chloride (98-107) mmol/L BUN (7-17) mg/dL Creatinine (0.52-1.04) mg/dL Glucose (74-99) mg/dL POC Glucose (mg/dL) (75-99) mg/dL Calcium (8.4-10.2) mg/dL TIBC 209 L (228-460) ug/dL AST 2795 H (14-36) U/L ALT 1222 H (4-34) U/L Total Protein (6.3-8.2) g/dL Albumin (3.5-5.0) g/dL Vitamin B12 2321.0 H (200.0-944.0) pg/mL 03/26/20 03/26/20 03/26/20 Range/Units 11:37 18:12 19:06 WBC 10.8 H (3.8-10.6) k/uL RBC 2.81 L (3.80-5.40) m/uL Hgb 7.6 L (11.4-16.0) gm/dL Hct 26.0 L (34.0-46.0) % MCHC 29.0 L (31.0-37.0) g/dL RDW 16.6 H (11.5-15.5) % Neutrophils # 9.8 H (1.3-7.7) k/uL Lymphocytes # 0.7 L (1.0-4.8) k/uL Retic Count (0.5-2.0) % ABG pO2 (83-108) mmHg ABG Total CO2 (19-24) mmol/L ABG O2 Saturation (94-97) % Chloride (98-107) mmol/L BUN (7-17) mg/dL Creatinine (0.52-1.04) mg/dL Glucose (74-99) mg/dL POC Glucose (mg/dL) 245 H 221 H (75-99) mg/dL Calcium (8.4-10.2) mg/dL TIBC (228-460) ug/dL AST (14-36) U/L ALT (4-34) U/L Total Protein (6.3-8.2) g/dL Albumin (3.5-5.0) g/dL Vitamin B12 (200.0-944.0) pg/mL 03/27/20 03/27/20 03/27/20 Range/Units 00:23 05:34 05:34 WBC (3.8-10.6) k/uL RBC 2.66 L (3.80-5.40) m/uL Hgb 7.2 L (11.4-16.0) gm/dL Hct 24.6 L (34.0-46.0) % MCHC 29.5 L (31.0-37.0) g/dL RDW 16.8 H (11.5-15.5) % Neutrophils # 9.8 H (1.3-7.7) k/uL Lymphocytes # 0.4 L (1.0-4.8) k/uL Retic Count (0.5-2.0) % ABG pO2 (83-108) mmHg ABG Total CO2 (19-24) mmol/L ABG O2 Saturation (94-97) % Chloride 114 H (98-107) mmol/L BUN 49 H (7-17) mg/dL Creatinine 1.06 H (0.52-1.04) mg/dL Glucose 181 H (74-99) mg/dL POC Glucose (mg/dL) 211 H (75-99) mg/dL Calcium 6.9 L (8.4-10.2) mg/dL TIBC (228-460) ug/dL AST 944 H (14-36) U/L ALT 809 H (4-34) U/L Total Protein 4.6 L (6.3-8.2) g/dL Albumin 2.0 L (3.5-5.0) g/dL Vitamin B12 (200.0-944.0) pg/mL 03/27/20 03/27/20 Range/Units 05:43 05:54 WBC (3.8-10.6) k/uL RBC (3.80-5.40) m/uL Hgb (11.4-16.0) gm/dL Hct (34.0-46.0) % MCHC (31.0-37.0) g/dL RDW (11.5-15.5) % Neutrophils # (1.3-7.7) k/uL Lymphocytes # (1.0-4.8) k/uL Retic Count (0.5-2.0) % ABG pO2 124 H (83-108) mmHg ABG Total CO2 25 H (19-24) mmol/L ABG O2 Saturation 99.6 H (94-97) % Chloride (98-107) mmol/L BUN (7-17) mg/dL Creatinine (0.52-1.04) mg/dL Glucose (74-99) mg/dL POC Glucose (mg/dL) 211 H (75-99) mg/dL Calcium (8.4-10.2) mg/dL TIBC (228-460) ug/dL AST (14-36) U/L ALT (4-34) U/L Total Protein (6.3-8.2) g/dL Albumin (3.5-5.0) g/dL Vitamin B12 (200.0-944.0) pg/mL Microbiology - Last 24 Hours (Table) 03/26/20 04:02 Gram Stain - Preliminary Sputum Sputum Culture - Preliminary 03/25/20 11:58 Blood Culture - Preliminary Blood No Growth after 24 hours Assessment and Plan (1) Acute respiratory distress syndrome Current Visit: Yes Status: Acute Code(s): J80 - ACUTE RESPIRATORY DISTRESS SYNDROME SNOMED Code(s): 55664604 (2) Anemia Current Visit: Yes Status: Acute Code(s): D64.9 - ANEMIA, UNSPECIFIED SNO MED Code(s): 808444101 (3) COVID-19 Current Visit: Yes Status: Acute Code(s): U07.1 - COVID-19 SNOMED Code(s): 982443435 (4) Pneumonia Current Visit: Yes Status: Acute Code(s): J18.9 - PNEUMONIA, UNSPECIFIED ORGANISM SNOMED Code(s): 425997787 (5) Fibromyalgia Current Visit: No Status: Acute Code(s): M79.7 - FIBROMYALGIA SNOMED Code(s): 631553890 Plan: Appropriate supportive care. Place on sliding scale. I suspect we might need to transfuse 1 PRBC eventually. Check CBC and CMP in a.m. Prognosis is guarded. Time with Patient: Greater than 30
[2020-03-27] MEDS: ENOXAPARIN 40 MG/0.4 ML SYRINGE SQ SCH (09:18)
[2020-03-27] MEDS: CHOLECALCIFEROL 400 UNIT TAB PO SCH (09:22)
[2020-03-27] MEDS: CHLORHEXIDINE GLUCONATE 15 ML CUP MUCOUS MEM SCH ×2 (09:22→21:06)
[2020-03-27] MEDS: ZINC SULFATE 220 MG CAP PO SCH (09:22)
[2020-03-27] MEDS: ASCORBIC ACID 500 MG TAB PO SCH ×2 (09:22→21:05)
[2020-03-27] MEDS: CEFEPIME 2 GM in SODIUM CHLORIDE 0.9% 100 ML IVPB SCH ×2 (09:22→21:05)
[2020-03-27] MEDS: PANTOPRAZOLE 40 MG/10 ML VIAL IVP SCH ×2 (09:22→21:07)
--- NOTE | 2020-03-27 09:53 | ECHOF ---
Referral Reason:LV FUNCTION MEASUREMENTS -------- HEIGHT: 177.8 cm WEIGHT: 85.3 kg BP: IVSd: 1.1 cm (0.6 - 1.1) LVIDd: 3.7 cm (3.9 - 5.3) LVPWd: 1.5 cm (0.6 - 1.1) IVSs: 1.4 cm LVIDs: 2.0 cm LVPWs: 1.8 cm LAESV Index (A-L): 24.26 ml/m Ao Diam: 2.8 cm (2.0 - 3.7) AV Cusp: 1.4 cm (1.5 - 2.6) LA Diam: 2.7 cm (2.7 - 3.8) MV EXCURSION: 19.783 mm (> 18.000) MV EF SLOPE: 50 mm/s (70 - 150) EPSS: 0.8 cm MV E Beck: 0.90 m/s MV DecT: 367 ms MV A Beck: 1.03 m/s MV E/A Ratio: 0.88 AR PHT: 750 ms RAP: 15.00 mmHg RVSP: 41.71 mmHg FINDINGS -------- Pt. on a vent. The left ventricular size is normal. There is mild concentric left ventricular hypertrophy. Overa ll left ventricular systolic function is normal with, an EF between 55 - 60 %. Increased LAP Grade 2 Diastolic Dysfunction. The right ventricle is normal in size. The left atrial size is normal. Normal LA size by volume 22+/-6 ml/m2. The right atrial size is normal. The aortic valve is trileaflet and appears structurally normal. There is [id number] aortic regurgitation with normal descending aortic flow. The mitral valve is normal. The mitral valve leaflets are mildly thickened. Mild mitral regurgita tion is present. The tricuspid valve appears structurally normal. Mild tricuspid regurgitation present. There is m ild pulmonary hypertension. The right ventricular systolic pressure, as measured by Doppler, is 41. 71mmHg. There is no pulmonic regurgitation present. The aortic root size is normal. The inferior vena cava is mildly dilated. There is no pericardial effusion. CONCLUSIONS -------- 1. The left ventricular size is normal. 2. There is mild concentric left ventricular hypertrophy. 3. Overall left ventricular systolic function is normal with, an EF between 55 - 60 %. 4. Increased LAP Grade 2 Diastolic Dysfunction. 5. There is sfbqhkxy-ie-myunog aortic regurgitation with normal descending aortic flow. 6. The mitral valve leaflets are mildly thickened. 7. Mild mitral regurgitation is present. 8. Mild tricuspid regurgitation present. 9. There is mild pulmonary hypertension. 10. The right ventricular systolic pressure, as measured by Doppler, is 41.71mmHg. 11. The inferior vena cava is mildly dilated. 12. There is no pericardial effusion. HYSTER MACHINE OPERATOR: Arin Rivera RDCS
--- NOTE | 2020-03-27 10:55 | P.PN ---
Subjective Progress Note Date: 03/27/20 (Critical care time 40 minutes) Principal diagnosis: Acute hypoxic respiratory failure Covid19 pneumonia Acute respiratory and metabolic acidosis Acute hepatitis/elevated liver enzymes Acute diastolic heart failure and fluid overload Chronic anemia Fibromyalgia Hypertension hypertensive cardiovascular disease 03/27/2020, patient seen eval examined during the rounds labs reviewed medications reviewed care plan discussed, propofol has been discontinued patient because very restless and anxious, we'll restart propofol, patient has been on full ventilator support assist control 24 tidal volume of 450, PEEP is 10, oxygen is 70%, arterial blood gases reviewed when lower the FiO2 to 60% now plan to bring down the FiO2 to 50% and PEEP of 8 next 24 hours, sputum and blood cultures reviewed no growth so far, chest x-ray performed today reviewed significant improvement in infiltrates seen bilaterally, patient has a poor urine output throughout the night, 20 mg of Lasix was given put out 600 mL of urine patient continued to be on gentle hydration, remain on cefapime and Vanco, Lovenox Solu-Medrol multivitamin and vitamin C zinc and Lovenox, white cell count is stable 10,500 hemoglobin and hematocrit 7.2 and 24, general surgery has been following patient is considered to get EGD and colonoscopy once stable, arterial blood gas revealed pH of 7.39 pCO2 of 39 pO2 of 124, bicarb 25, liver enzymes continue to come down AST and ALT now is 944/809, hepatitis panel normal and nonreactive 03/26/2020, patient seen eval examined in the ICU care plan discussed with the staff, FiO2 has been down to 60%, patient remains on assist control tidal volume of 450, PEEP is 10, respiratory rate is 24 breathing with the respirator pH has been improved significantly, patient is making adequate urine chest x-ray compared with yesterday's x-ray some improvement have been noted, white cell count is 11,000, hemoglobin 7.9 which is stable, arterial blood gas improved to 7.39, pCO2 of 40, pO2 112, BUN/creatinine is 33/0.96, lactic acid was 5.9 down to 1.3 now, ferritin level noted to be 12,800, AST and ALT are 4014 100 with LDH over 21,500, today LFTs significantly improved AST is down to 2795 and ALT is 1222, pro calcitonin is 0.84, suspect some component of heart failure as well as pneumonia, will get an echocardiogram as well as start patient on broad-spectrum antibiotics with cefepime and Vanco Patient seen and evaluated examined in the emergency department, patient came into the ER from the office of Dr. Aleman due to progressive shortness of breath, patient has acute on chronic hypoxic respiratory failure on 4 L oxygen, also has issues associated with pneumonia presumed to be cold with 19, however, testing was negative, patient used to smoke in the remote past quit about 20-30 years ago due to severity or shortness of breath and hypoxia with saturation of 76% on 100% oxygen and respiratory distress patient was intubated due to poor tolerance on BiPAP, patient Covid testing came back positive, chest x-ray showing diffuse infiltrate she also has been noted to have elevated liver enzymes due to elevated liver enzymes will not start IV REMdesivir, Initial ABG pH is 7.18, pCO2 is 63 pO2 was only 33 Objective - Vital Signs Vital signs: Vital Signs Temp 97.6 F 03/27/20 08:00 Pulse 62 03/27/20 10:00 Resp 19 03/27/20 10:00 BP 133/68 03/27/20 10:00 Pulse Ox 100 03/27/20 10:00 Intake & Output 03/26/20 03/27/20 03/27/20 18:59 06:59 18:59 Intake Total 1571.691 2528.442 482.193 Output Total 455 230 305 Balance 507.604 0950.442 177.193 Weight 85.3 kg Intake: IV 1200 845 425 0.9 NaCl- 1200 620 300 Cefepime 2 gm In Sodium 100 Chloride 0.9% 100 ml @ 25 mls/hr IVPB Q12HR NONA Rx #:[id number] Vancomycin 1,500 mg In 125 125 Sodium Chloride 0.9% 250 ml @ 125 mls/hr IVPB Q16H NONA Rx#:[id number] Intake, IV Titration 199.801 341.442 57.193 Amount propofoL 1,000 mg In 199.801 341.442 57.193 Empty Bag 1 bag @ Titrate IV .Q0M NONA Rx#: [id number] Oral 100 Output: Urine 455 230 305 Other: Voiding Method Indwelling Catheter Indwelling Catheter Indwelling Catheter # Bowel Movements 1 - Exam Intubated sedated with propofol - Constitutional General appearance: average body habitus, mild distress - EENT Ears: bilateral: normal - Neck Carotids: bilateral: upstroke normal Thyroid: bilateral: normal size - Respiratory Respiratory: bilateral: diminished - Cardiovascular Rhythm: regular Heart sounds: normal: S1, S2 - Gastrointestinal General gastrointestinal: normal bowel sounds Sedated with propofol on full ventilator support with 100% oxygen and assist control mode - Labs CBC & Chem 7: 03/27/20 05:34 03/27/20 05:34 Labs: Abnormal Lab Results - Last 24 Hours (Table) 03/25/20 03/26/20 03/26/20 Range/Units 11:20 03:03 09:32 WBC (3.8-10.6) k/uL RBC (3.80-5.40) m/uL Hgb (11.4-16.0) gm/dL Hct (34.0-46.0) % MCHC (31.0-37.0) g/dL RDW (11.5-15.5) % Neutrophils # (1.3-7.7) k/uL Lymphocytes # (1.0-4.8) k/uL Retic Count 3.1 H (0.5-2.0) % ABG pO2 (83-108) mmHg ABG Total CO2 (19-24) mmol/L ABG O2 Saturation (94-97) % Chloride (98-107) mmol/L BUN (7-17) mg/dL Creatinine (0.52-1.04) mg/dL Glucose (74-99) mg/dL POC Glucose (mg/dL) (75-99) mg/dL Calcium (8.4-10.2) mg/dL TIBC 209 L (228-460) ug/dL AST (14-36) U/L ALT (4-34) U/L Total Protein (6.3-8.2) g/dL Albumin (3.5-5.0) g/dL Vitamin B12 2321.0 H (200.0-944.0) pg/mL Crossmatch See Detail 03/26/20 03/26/20 03/26/20 Range/Units 11:37 18:12 19:06 WBC 10.8 H (3.8-10.6) k/uL RBC 2.81 L (3.80-5.40) m/uL Hgb 7.6 L (11.4-16.0) gm/dL Hct 26.0 L (34.0-46.0) % MCHC 29.0 L (31.0-37.0) g/dL RDW 16.6 H (11.5-15.5) % Neutrophils # 9.8 H (1.3-7.7) k/uL Lymphocytes # 0.7 L (1.0-4.8) k/uL Retic Count (0.5-2.0) % ABG pO2 (83-108) mmHg ABG Total CO2 (19-24) mmol/L ABG O2 Saturation (94-97) % Chloride (98-107) mmol/L BUN (7-17) mg/dL Creatinine (0.52-1.04) mg/dL Glucose (74-99) mg/dL POC Glucose (mg/dL) 245 H 221 H (75-99) mg/dL Calcium (8.4-10.2) mg/dL TIBC (228-460) ug/dL AST (14-36) U/L ALT (4-34) U/L Total Protein (6.3-8.2) g/dL Albumin (3.5-5.0) g/dL Vitamin B12 (200.0-944.0) pg/mL Crossmatch 03/27/20 03/27/20 03/27/20 Range/Units 00:23 05:34 05:34 WBC (3.8-10.6) k/uL RBC 2.66 L (3.80-5.40) m/uL Hgb 7.2 L (11.4-16.0) gm/dL Hct 24.6 L (34.0-46.0) % MCHC 29.5 L (31.0-37.0) g/dL RDW 16.8 H (11.5-15.5) % Neutrophils # 9.8 H (1.3-7.7) k/uL Lymphocytes # 0.4 L (1.0-4.8) k/uL Retic Count (0.5-2.0) % ABG pO2 (83-108) mmHg ABG Total CO2 (19-24) mmol/L ABG O2 Saturation (94-97) % Chloride 114 H (98-107) mmol/L BUN 49 H (7-17) mg/dL Creatinine 1.06 H (0.52-1.04) mg/dL Glucose 181 H (74-99) mg/dL POC Glucose (mg/dL) 211 H (75-99) mg/dL Calcium 6.9 L (8.4-10.2) mg/dL TIBC (228-460) ug/dL AST 944 H (14-36) U/L ALT 809 H (4-34) U/L Total Protein 4.6 L (6.3-8.2) g/dL Albumin 2.0 L (3.5-5.0) g/dL Vitamin B12 (200.0-944.0) pg/mL Crossmatch 03/27/20 03/27/20 Range/Units 05:43 05:54 WBC (3.8-10.6) k/uL RBC (3.80-5.40) m/uL Hgb (11.4-16.0) gm/dL Hct (34.0-46.0) % MCHC (31.0-37.0) g/dL RDW (11.5-15.5) % Neutrophils # (1.3-7.7) k/uL Lymphocytes # (1.0-4.8) k/uL Retic Count (0.5-2.0) % ABG pO2 124 H (83-108) mmHg ABG Total CO2 25 H (19-24) mmol/L ABG O2 Saturation 99.6 H (94-97) % Chloride (98-107) mmol/L BUN (7-17) mg/dL Creatinine (0.52-1.04) mg/dL Glucose (74-99) mg/dL POC Glucose (mg/dL) 211 H (75-99) mg/dL Calcium (8.4-10.2) mg/dL TIBC (228-460) ug/dL AST (14-36) U/L ALT (4-34) U/L Total Protein (6.3-8.2) g/dL Albumin (3.5-5.0) g/dL Vitamin B12 (200.0-944.0) pg/mL Crossmatch Microbiology - Last 24 Hours (Table) 03/26/20 04:02 Gram Stain - Preliminary Sputum Sputum Culture - Preliminary 03/25/20 11:58 Blood Culture - Preliminary Blood No Growth after 24 hours Assessment and Plan Assessment: Acute hypoxic respiratory failure Covid19 pneumonia Acute pneumonia bacterial bilateral healthcare associated Acute respiratory and metabolic acidosis Acute hepatitis/elevated liver enzymes Acute diastolic heart failure Chronic anemia Fibromyalgia Hypertension hypertensive cardiovascular disease Plan: Ventilator support adjustment of ventilator as per clinical response and arterial blood gases IV antibiotics broad-spectrum IV Lasix 20 mg daily Sputum culture and blood culture IV fluids with gentle hydration Trend liver enzymes Patient is not a candidate for IV REMdesivir IV steroids Further recommendations pending plan of care as per clinical response of patient Time with Patient: Greater than 30
[2020-03-27 11:27] LABS: Glucose,Whole Blood 217 mg/dL (75-99)
--- NOTE | 2020-03-27 11:42 | P.PN ---
<Ana Parks - Last Filed: 03/27/20 11:32> Subjective Progress Note Date: 03/27/20 CHIEF COMPLAINT: GI bleed HISTORY OF PRESENT ILLNESS: Patient is currently hospitalized for respiratory failure and is COVID positive. She is currently intubated. She is being followed for her GI bleed. She had 2 black stools earlier today and a black stool reported on nights. One of the stools from earlier today was significant ly small. She is scheduled for 1 unit of blood today for hemoglobin is 7.2. She is intubated they are titrating the FiO2 down. She is currently nothing by mouth. Afebrile. WBC 10.5 AST 944 ALT 809 PHYSICAL EXAM: VITAL SIGNS: Reviewed. GENERAL: Well-developed in no acute distress. HEENT: No sclera icterus. Extraocular movements grossly intact. Moist buccal mucosa. Head is atraumatic, normocephalic. ABDOMEN: Soft. Nondistended. Nontender. NEUROLOGIC: Patient is intubated. Per nursing staff patient is able to move all 4 extremities ASSESSMENT: 1. Acute GI bleed 2. Acute on chronic blood loss anemia 3. Elevated liver enzymes with large gallstone present on abdominal ultrasound 4. Acute hypoxic respiratory failure requiring intubation 5. COVID positive PLAN: -Continue to monitor hemoglobin -Dr. Henry will proceed with upper and lower endoscopy when stable -Continue supportive care Physician Manager Paid note has been reviewed by physician. Signing provider agrees with the documented findings, assessment, and plan of care. Objective - Vital Signs Vital signs: Vital Signs Temp 97.6 F 03/27/20 11:20 Pulse 57 L 03/27/20 11:20 Resp 24 03/27/20 11:20 BP 112/62 03/27/20 11:20 Pulse Ox 99 03/27/20 11:00 Intake & Output 03/26/20 03/27/20 03/27/20 18:59 06:59 18:59 Intake Total 3631.570 3526.442 582.193 Output Total 455 230 905 Balance 314.976 6382.442 -322.807 Weight 85.3 kg Intake: IV 1200 845 525 0.9 NaCl- 1200 620 400 Cefepime 2 gm In Sodium 100 Chloride 0.9% 100 ml @ 25 mls/hr IVPB Q12HR [facility] Rx #:[id number] Vancomycin 1,500 mg In 125 125 Sodium Chloride 0.9% 250 ml @ 125 mls/hr IVPB Q16H [facility] Rx#:[id number] Intake, IV Titration 199.801 341.442 57.193 Amount propofoL 1,000 mg In 199.801 341.442 57.193 Empty Bag 1 bag @ Titrate IV .Q0M [facility] Rx#: [id number] Oral 100 Blood Product 0 Rc As-1 Unit 0 [id number] Output: Urine 455 230 905 Other: Voiding Method Indwelling Catheter Indwelling Catheter Indwelling Catheter # Bowel Movements 1 - Labs CBC & Chem 7: 03/27/20 05:34 03/27/20 05:34 Labs: Abnormal Lab Results - Last 24 Hours (Table) 03/25/20 03/26/20 03/26/20 Range/Units 11:20 03:03 09:32 WBC (3.8-10.6) k/uL RBC (3.80-5.40) m/uL Hgb (11.4-16.0) gm/dL Hct (34.0-46.0) % MCHC (31.0-37.0) g/dL RDW (11.5-15.5) % Neutrophils # (1.3-7.7) k/uL Lymphocytes # (1.0-4.8) k/uL Retic Count 3.1 H (0.5-2.0) % ABG pO2 (83-108) mmHg ABG Total CO2 (19-24) mmol/L ABG O2 Saturation (94-97) % Chloride (98-107) mmol/L BUN (7-17) mg/dL Creatinine (0.52-1.04) mg/dL Glucose (74-99) mg/dL POC Glucose (mg/dL) (75-99) mg/dL Calcium (8.4-10.2) mg/dL TIBC 209 L (228-460) ug/dL AST (14-36) U/L ALT (4-34) U/L Total Protein (6.3-8.2) g/dL Albumin (3.5-5.0) g/dL Vitamin B12 2321.0 H (200.0-944.0) pg/mL Crossmatch See Detail 12/01/0503/26/20 03/26/20 Range/Units 11:37 18:12 19:06 WBC 10.8 H (3.8-10.6) k/uL RBC 2.81 L (3.80-5.40) m/uL Hgb 7.6 L (11.4-16.0) gm/dL Hct 26.0 L (34.0-46.0) % MCHC 29.0 L (31.0-37.0) g/dL RDW 16.6 H (11.5-15.5) % Neutrophils # 9.8 H (1.3-7.7) k/uL Lymphocytes # 0.7 L (1.0-4.8) k/uL Retic Count (0.5-2.0) % ABG pO2 (83-108) mmHg ABG Total CO2 (19-24) mmol/L ABG O2 Saturation (94-97) % Chloride (98-107) mmol/L BUN (7-17) mg/dL Creatinine (0.52-1.04) mg/dL Glucose (74-99) mg/dL POC Glucose (mg/dL) 245 H 221 H (75-99) mg/dL Calcium (8.4-10.2) mg/dL TIBC (228-460) ug/dL AST (14-36) U/L ALT (4-34) U/L Total Protein (6.3-8.2) g/dL Albumin (3.5-5.0) g/dL Vitamin B12 (200.0-944.0) pg/mL Crossmatch 03/27/20 03/27/20 03/27/20 Range/Units 00:23 05:34 05:34 WBC (3.8-10.6) k/uL RBC 2.66 L (3.80-5.40) m/uL Hgb 7.2 L (11.4-16.0) gm/dL Hct 24.6 L (34.0-46.0) % MCHC 29.5 L (31.0-37.0) g/dL RDW 16.8 H (11.5-15.5) % Neutrophils # 9.8 H (1.3-7.7) k/uL Lymphocytes # 0.4 L (1.0-4.8) k/uL Retic Count (0.5-2.0) % ABG pO2 (83-108) mmHg ABG Total CO2 (19-24) mmol/L ABG O2 Saturation (94-97) % Chloride 114 H (98-107) mmol/L BUN 49 H (7-17) mg/dL Creatinine 1.06 H (0.52-1.04) mg/dL Glucose 181 H (74-99) mg/dL POC Glucose (mg/dL) 211 H (75-99) mg/dL Calcium 6.9 L (8.4-10.2) mg/dL TIBC (228-460) ug/dL AST 944 H (14-36) U/L ALT 809 H (4-34) U/L Total Protein 4.6 L (6.3-8.2) g/dL Albumin 2.0 L (3.5-5.0) g/dL Vitamin B12 (200.0-944.0) pg/mL Crossmatch 03/27/20 03/27/20 03/27/20 Range/Units 05:43 05:54 11:25 WBC (3.8-10.6) k/uL RBC (3.80-5.40) m/uL Hgb (11.4-16.0) gm/dL Hct (34.0-46.0) % MCHC (31.0-37.0) g/dL RDW (11.5-15.5) % Neutrophils # (1.3-7.7) k/uL Lymphocytes # (1.0-4.8) k/uL Retic Count (0.5-2.0) % ABG pO2 124 H (83-108) mmHg ABG Total CO2 25 H (19-24) mmol/L ABG O2 Saturation 99.6 H (94-97) % Chloride (98-107) mmol/L BUN (7-17) mg/dL Creatinine (0.52-1.04) mg/dL Glucose (74-99) mg/dL POC Glucose (mg/dL) 211 H 217 H (75-99) mg/dL Calcium (8.4-10.2) mg/dL TIBC (228-460) ug/dL AST (14-36) U/L ALT (4-34) U/L Total Protein (6.3-8.2) g/dL Albumin (3.5-5.0) g/dL Vitamin B12 (200.0-944.0) pg/mL Crossmatch Microbiology - Last 24 Hours (Table) 03/26/20 04:02 Gram Stain - Preliminary Sputum Sputum Culture - Preliminary 03/25/20 11:58 Blood Culture - Preliminary Blood No Growth after 24 hours <William Henry - Last Filed: 03/27/20 16:55> Subjective As above. Patient remains on the ventilator. She did have melanotic stools however hemoglobin has remained fairly stable. Hemodynamically stable. Liver enzymes improving. Will begin tube feeds at 10 mL per hour. Continue antiacid therapy. Objective - Vital Signs Vital signs: Vital Signs Temp 97.7 F 03/27/20 12:55 Pulse 64 03/27/20 16:00 Resp 25 H 03/27/20 16:00 BP 127/87 03/27/20 16:00 Pulse Ox 94 L 03/27/20 16:00 Intake & Output 03/26/20 03/27/20 03/27/20 18:59 06:59 18:59 Intake Total 0211.276 5613.442 1435.000 Output Total 632 385 9427 Balance 206.578 1418.442 110.000 Weight 85.3 kg 85.3 kg Intake: IV 5807 158 7591 0.9 NaCl- 1200 620 900 Cefepime 2 gm In Sodium 100 Chloride 0.9% 100 ml @ 25 mls/hr IVPB Q12HR [facility] Rx #:[id number] Vancomycin 1,500 mg In 125 125 Sodium Chloride 0.9% 250 ml @ 125 mls/hr IVPB Q16H [facility] Rx#:[id number] Intake, IV Titration 199.801 341.442 100.000 Amount propofoL 1,000 mg In 199.801 341.442 100.000 Empty Bag 1 bag @ Titrate IV .Q0M [facility] Rx#: [id number] Oral 100 Blood Product 310 Rc As-1 Unit 310 [id number] Output: Urine 555 509 1735 Other: Voiding Method Indwelling Catheter Indwelling Catheter Indwelling Catheter # Bowel Movements 1 - Labs CBC & Chem 7: 03/27/20 05:34 03/27/20 05:34 Labs: Abnormal Lab Results - Last 24 Hours (Table) 03/25/20 03/26/20 03/26/20 Range/Units 11:20 09:32 18:12 WBC (3.8-10.6) k/uL RBC (3.80-5.40) m/uL Hgb (11.4-16.0) gm/dL Hct (34.0-46.0) % MCHC (31.0-37.0) g/dL RDW (11.5-15.5) % Neutrophils # (1.3-7.7) k/uL Lymphocytes # (1.0-4.8) k/uL ABG pO2 (83-108) mmHg ABG Total CO2 (19-24) mmol/L ABG O2 Saturation (94-97) % Chloride (98-107) mmol/L BUN (7-17) mg/dL Creatinine (0.52-1.04) mg/dL Glucose (74-99) mg/dL POC Glucose (mg/dL) 221 H (75-99) mg/dL Calcium (8.4-10.2) mg/dL TIBC 209 L (228-460) ug/dL AST (14-36) U/L ALT (4-34) U/L Total Protein (6.3-8.2) g/dL Albumin (3.5-5.0) g/dL Vitamin B12 2321.0 H (200.0-944.0) pg/mL Crossmatch See Detail 03/26/20 03/27/20 03/27/20 Range/Units 19:06 00:23 05:34 WBC 10.8 H (3.8-10.6) k/uL RBC 2.81 L 2.66 L (3.80-5.40) m/uL Hgb 7.6 L 7.2 L (11.4-16.0) gm/dL Hct 26.0 L 24.6 L (34.0-46.0) % MCHC 29.0 L 29.5 L (31.0-37.0) g/dL RDW 16.6 H 16.8 H (11.5-15.5) % Neutrophils # 9.8 H 9.8 H (1.3-7.7) k/uL Lymphocytes # 0.7 L 0.4 L (1.0-4.8) k/uL ABG pO2 (83-108) mmHg ABG Total CO2 (19-24) mmol/L ABG O2 Saturation (94-97) % Chloride (98-107) mmol/L BUN (7-17) mg/dL Creatinine (0.52-1.04) mg/dL Glucose (74-99) mg/dL POC Glucose (mg/dL) 211 H (75-99) mg/dL Calcium (8.4-10.2) mg/dL TIBC (228-460) ug/dL AST (14-36) U/L ALT (4-34) U/L Total Protein (6.3-8.2) g/dL Albumin (3.5-5.0) g/dL Vitamin B12 (200.0-944.0) pg/mL Crossmatch 03/27/20 03/27/20 03/27/20 Range/Units 05:34 05:43 05:54 WBC (3.8-10.6) k/uL RBC (3.80-5.40) m/uL Hgb (11.4-16.0) gm/dL Hct (34.0-46.0) % MCHC (31.0-37.0) g/dL RDW (11.5-15.5) % Neutrophils # (1.3-7.7) k/uL Lymphocytes # (1.0-4.8) k/uL ABG pO2 124 H (83-108) mmHg ABG Total CO2 25 H (19-24) mmol/L ABG O2 Saturation 99.6 H (94-97) % Chloride 114 H (98-107) mmol/L BUN 49 H (7-17) mg/dL Creatinine 1.06 H (0.52-1.04) mg/dL Glucose 181 H (74-99) mg/dL POC Glucose (mg/dL) 211 H (75-99) mg/dL Calcium 6.9 L (8.4-10.2) mg/dL TIBC (228-460) ug/dL AST 944 H (14-36) U/L ALT 809 H (4-34) U/L Total Protein 4.6 L (6.3-8.2) g/dL Albumin 2.0 L (3.5-5.0) g/dL Vitamin B12 (200.0-944.0) pg/mL Crossmatch 03/27/20 03/27/20 Range/Units 11:25 15:35 WBC (3.8-10.6) k/uL RBC (3.80-5.40) m/uL Hgb (11.4-16.0) gm/dL Hct (34.0-46.0) % MCHC (31.0-37.0) g/dL RDW (11.5-15.5) % Neutrophils # (1.3-7.7) k/uL Lymphocytes # (1.0-4.8) k/uL ABG pO2 (83-108) mmHg ABG Total CO2 (19-24) mmol/L ABG O2 Saturation (94-97) % Chloride (98-107) mmol/L BUN (7-17) mg/dL Creatinine (0.52-1.04) mg/dL Glucose (74-99) mg/dL POC Glucose (mg/dL) 217 H 209 H (75-99) mg/dL Calcium (8.4-10.2) mg/dL TIBC (228-460) ug/dL AST (14-36) U/L ALT (4-34) U/L Total Protein (6.3-8.2) g/dL Albumin (3.5-5.0) g/dL Vitamin B12 (200.0-944.0) pg/mL Crossmatch Microbiology - Last 24 Hours (Table) 03/25/20 11:58 Blood Culture - Preliminary Blood No Growth after 48 hours 03/26/20 04:02 Gram Stain - Preliminary Sputum Sputum Culture - Preliminary Assessment and Plan (1) GI bleed Current Visit: Yes Status: Acute Code(s): K92.2 - GASTROINTESTINAL HEMORRHAGE, UNSPECIFIED SNOMED Code(s): 09192825
--- NOTE | 2020-03-27 12:43 | P.PN ---
Subjective Progress Note Date: 03/27/20 Principal diagnosis: Elevated liver enzymes shortness of breath She was seen and examined in the ICU. She is sedated and on mechanical ventilation. NG tube is in place with no active bleeding from NG tube. The nurse states the patient did have some maroon colored stools through the night and also a dark colored stool this morning. Alpha-fetoprotein is pending. LFTS improving, Today total bilirubin 0.5, alkaline phosphatase 1:15, AST 944, ALT 809. Objective - Vital Signs Vital signs: Vital Signs Temp 98.4 F 03/27/20 12:00 Pulse 56 L 03/27/20 12:00 Resp 24 03/27/20 12:00 BP 111/60 03/27/20 12:00 Pulse Ox 98 03/27/20 12:00 Intake & Output 03/26/20 03/27/20 03/27/20 18:59 06:59 18:59 Intake Total 4852.014 5267.442 582.193 Output Total 455 230 905 Balance 315.636 8923.442 -322.807 Weight 85.3 kg Intake: IV 1200 845 525 0.9 NaCl- 1200 620 400 Cefepime 2 gm In Sodium 100 Chloride 0.9% 100 ml @ 25 mls/hr IVPB Q12HR [facility] Rx #:[id number] Vancomycin 1,500 mg In 125 125 Sodium Chloride 0.9% 250 ml @ 125 mls/hr IVPB Q16H [facility] Rx#:[id number] Intake, IV Titration 199.801 341.442 57.193 Amount propofoL 1,000 mg In 199.801 341.442 57.193 Empty Bag 1 bag @ Titrate IV .Q0M [facility] Rx#: [id number] Oral 100 Blood Product 0 Rc As-1 Unit 0 [id number] Output: Urine 455 230 905 Other: Voiding Method Indwelling Catheter Indwelling Catheter Indwelling Catheter # Bowel Movements 1 - Exam General appearance: Sedated and intubated. Obeses. HET: Head is normocephalic and atraumatic. Neck: Supple without lymphadenopathy. Abdomen: Soft, nontender, obese, nondistended with bowel sounds. No guarding or rigidity. Extremities: Normal skin color and turgor. Lateral lower extremity edema Neurological: Intubated and sedated. - Labs CBC & Chem 7: 03/27/20 05:34 03/27/20 05:34 Labs: Abnormal Lab Results - Last 24 Hours (Table) 03/25/20 03/26/20 03/26/20 Range/Units 11:20 03:03 09:32 WBC (3.8-10.6) k/uL RBC (3.80-5.40) m/uL Hgb (11.4-16.0) gm/dL Hct (34.0-46.0) % MCHC (31.0-37.0) g/dL RDW (11.5-15.5) % Neutrophils # (1.3-7.7) k/uL Lymphocytes # (1.0-4.8) k/uL Retic Count 3.1 H (0.5-2.0) % ABG pO2 (83-108) mmHg ABG Total CO2 (19-24) mmol/L ABG O2 Saturation (94-97) % Chloride (98-107) mmol/L BUN (7-17) mg/dL Creatinine (0.52-1.04) mg/dL Glucose (74-99) mg/dL POC Glucose (mg/dL) (75-99) mg/dL Calcium (8.4-10.2) mg/dL TIBC 209 L (228-460) ug/dL AST (14-36) U/L ALT (4-34) U/L Total Protein (6.3-8.2) g/dL Albumin (3.5-5.0) g/dL Vitamin B12 2321.0 H (200.0-944.0) pg/mL Crossmatch See Detail 03/26/20 03/26/20 03/27/20 Range/Units 18:12 19:06 00:23 WBC 10.8 H (3.8-10.6) k/uL RBC 2.81 L (3.80-5.40) m/uL Hgb 7.6 L (11.4-16.0) gm/dL Hct 26.0 L (34.0-46.0) % MCHC 29.0 L (31.0-37.0) g/dL RDW 16.6 H (11.5-15.5) % Neutrophils # 9.8 H (1.3-7.7) k/uL Lymphocytes # 0.7 L (1.0-4.8) k/uL Retic Count (0.5-2.0) % ABG pO2 (83-108) mmHg ABG Total CO2 (19-24) mmol/L ABG O2 Saturation (94-97) % Chloride (98-107) mmol/L BUN (7-17) mg/dL Creatinine (0.52-1.04) mg/dL Glucose (74-99) mg/dL POC Glucose (mg/dL) 221 H 211 H (75-99) mg/dL Calcium (8.4-10.2) mg/dL TIBC (228-460) ug/dL AST (14-36) U/L ALT (4-34) U/L Total Protein (6.3-8.2) g/dL Albumin (3.5-5.0) g/dL Vitamin B12 (200.0-944.0) pg/mL Crossmatch 03/27/20 03/27/20 03/27/20 Range/Units 05:34 05:34 05:43 WBC (3.8-10.6) k/uL RBC 2.66 L (3.80-5.40) m/uL Hgb 7.2 L (11.4-16.0) gm/dL Hct 24.6 L (34.0-46.0) % MCHC 29.5 L (31.0-37.0) g/dL RDW 16.8 H (11.5-15.5) % Neutrophils # 9.8 H (1.3-7.7) k/uL Lymphocytes # 0.4 L (1.0-4.8) k/uL Retic Count (0.5-2.0) % ABG pO2 (83-108) mmHg ABG Total CO2 (19-24) mmol/L ABG O2 Saturation (94-97) % Chloride 114 H (98-107) mmol/L BUN 49 H (7-17) mg/dL Creatinine 1.06 H (0.52-1.04) mg/dL Glucose 181 H (74-99) mg/dL POC Glucose (mg/dL) 211 H (75-99) mg/dL Calcium 6.9 L (8.4-10.2) mg/dL TIBC (228-460) ug/dL AST 944 H (14-36) U/L ALT 809 H (4-34) U/L Total Protein 4.6 L (6.3-8.2) g/dL Albumin 2.0 L (3.5-5.0) g/dL Vitamin B12 (200.0-944.0) pg/mL Crossmatch 03/27/20 03/27/20 Range/Units 05:54 11:25 WBC (3.8-10.6) k/uL RBC (3.80-5.40) m/uL Hgb (11.4-16.0) gm/dL Hct (34.0-46.0) % MCHC (31.0-37.0) g/dL RDW (11.5-15.5) % Neutrophils # (1.3-7.7) k/uL Lymphocytes # (1.0-4.8) k/uL Retic Count (0.5-2.0) % ABG pO2 124 H (83-108) mmHg ABG Total CO2 25 H (19-24) mmol/L ABG O2 Saturation 99.6 H (94-97) % Chloride (98-107) mmol/L BUN (7-17) mg/dL Creatinine (0.52-1.04) mg/dL Glucose (74-99) mg/dL POC Glucose (mg/dL) 217 H (75-99) mg/dL Calcium (8.4-10.2) mg/dL TIBC (228-460) ug/dL AST (14-36) U/L ALT (4-34) U/L Total Protein (6.3-8.2) g/dL Albumin (3.5-5.0) g/dL Vitamin B12 (200.0-944.0) pg/mL Crossmatch Microbiology - Last 24 Hours (Table) 03/26/20 04:02 Gram Stain - Preliminary Sputum Sputum Culture - Preliminary 03/25/20 11:58 Blood Culture - Preliminary Blood No Growth after 24 hours Assessment and Plan (1) COVID-19 Narrative/Plan: 69-year-old female with multiple medical comorbidities who presented to the hospital due to worsening shortness of breath, currently the patient is intubated and sedated in the intensive care unit where she is being treated for infection with COVID-19. The patient was found to have markedly elevated liver enzymes on presentation which are currently trending down, with initial total bilirubin 0.7, alkaline phosphatase 173, AST 4151 and ALT 1463. Likely etiology of elevation in liver enzymes is underlying viral infection and hypoperfusion in the setting of sepsis, acute viral hepatitis panel was negative and ultrasound w as significant only for cholelithiasis with a hyperechoic area in the liver likely related to hemangioma with a hepatic mass less likely in the absence of cirrhosis. Current Visit: Yes Status: Acute Code(s): U07.1 - COVID-19 SNOMED Code(s): 967859699 (2) Elevated liver enzymes Current Visit: Yes Status: Acute Code(s): R74.8 - ABNORMAL LEVELS OF OTHER SERUM ENZYMES SNOMED Code(s): 389117027 (3) Iron deficiency anemia due to chronic blood loss Current Visit: No Status: Acute Priority: High Code(s): D50.0 - IRON DEFICIENCY ANEMIA SECONDARY TO BLOOD LOSS (CHRONIC) SNOMED Code(s): 952102484 Plan: Supportive care Continue ICU management Continue to monitor CBC, BMP, LFTs Acute viral hepatitis panel negative Ultrasound of the abdomen essentially negative except for findings of cholelithiasis and a possible hemangioma versus mass which would be unlikely in the absence of cirrhosis, alpha-fetoprotein will be ordered to rule out hepatocellular carcinoma, pending If liver enzymes do not improve full liver serology will be ordered to rule out any intrinsic liver disease Thank you for allowing us to participate in care of the patient we will continue to follow Dr. Perez I agree with the dictator's note, documented as a scribe by Carol PAREDES .
[2020-03-27 15:37] LABS: Glucose,Whole Blood 209 mg/dL (75-99)
[2020-03-27] MEDS: HYDROmorphone 1 MG/ML 1 ML SYRINGE IVP PRN (17:45)
[2020-03-27 20:11] LABS: Glucose,Whole Blood 145 mg/dL (75-99)
--- NOTE | 2020-03-27 21:05 | PN ---
PROGRESS NOTE DATE OF SERVICE: 03/27/2020 REASON FOR FOLLOWUP: Pneumonia. INTERVAL HISTORY: The patient is currently afebrile. The patient is hemodynamically stable, not on pressor support. FiO2 is cut down to 50%. No significant purulent secretion through the ET or any diarrhea reported by the nursing staff. PHYSICAL EXAMINATION: Blood pressure 125/68, pulse of 50, temperature of 97.7. She is 96% on 50% FiO2. General description is an elderly female lying in bed in no distress. RESPIRATORY SYSTEM: Unlabored breathing with decreased intensity of breath sounds. No wheeze. HEART: S1, S2. Regular rate and rhythm. ABDOMEN: Soft. No tenderness. LABS: Hemoglobin 7.2, white count 10.5. BUN of 49, creatinine 1.06. DIAGNOSTIC IMPRESSION AND PLAN: Patient with acute respiratory failure which is multifactorial in this patient with likely component of acute respiratory distress syndrome with recent COVID plus/minus pneumonia. The patient is covered with cefepime and vancomycin. Sputum culture will be followed and we will monitor her clinical course closely. Continue with supportive care. MMODL / IJN: [id number] /
[2020-03-28 00:06] LABS: Glucose,Whole Blood 160 mg/dL (75-99)
[2020-03-28] MEDS: methylPREDNISolone SOD SUCCI 125 MG/2 ML VIAL IV SCH ×4 (00:28→17:16)
[2020-03-28] MEDS: INSULIN ASPART (NovoLOG) 100 UNIT/ML VIAL SQ SCH ×6 (00:29→20:39)
[2020-03-28 04:17] LABS: Glucose,Whole Blood 173 mg/dL (75-99)
[2020-03-28 05:27] LABS: Anisocytosis Slight; Basophils % (A) 0 %; Eosinophils % (A) 0 %; HCT 25.1 % (34.0-46.0); HGB 7.9 gm/dL (11.4-16.0); Hypochromasia Marked; Lymphocytes # (A) 0.4 k/uL (1.0-4.8); Lymphocytes % (A) 3 %; MCH 28.8 pg (25.0-35.0); MCHC 31.5 g/dL (31.0-37.0); MCV 91.4 fL (80.0-100.0); Monocytes # (A) 0.4 k/uL (0-1.0); Monocytes % (A) 3 %; Neutrophils # (A) 11.6 k/uL (1.3-7.7); Neutrophils % (A) 93 %; Platelet Count 235 k/uL (150-450); Poikilocytosis Moderate; RBC 2.75 m/uL (3.80-5.40); RDW 16.7 % (11.5-15.5); WBC 12.4 k/uL (3.8-10.6)
[2020-03-28 05:41] LABS: Albumin 2.1 g/dL (3.5-5.0); C Reactive Protein 69.5 mg/L (<10.0); Calcium 6.7 mg/dL (8.4-10.2); Potassium 4.7 mmol/L (3.5-5.1); Total Bilirubin 0.4 mg/dL (0.2-1.3); Total Protein 4.7 g/dL (6.3-8.2)
[2020-03-28 05:42] LABS: Partial Thromboplastin Time 24.5 sec (22.0-30.0)
[2020-03-28 06:06] LABS: ABG Base Excess -2.5 mmol/L; ABG HCO3 22 mmol/L (21-25); ABG Oxygen Saturation 98.6 % (94-97); ABG PCO2 35 mmHg (35-45); ABG PH 7.41 (7.35-7.45); ABG PO2 96 mmHg (83-108); ABG TCO2 23 mmol/L (19-24); Allen Test Performed? Yes
--- NOTE | 2020-03-28 07:07 | XR ---
EXAMINATION TYPE: XR chest 1V portable DATE OF EXAM: 03/28/2020 COMPARISON: 03/27/2020 INDICATION: Covid TECHNIQUE: Single frontal view of the chest is obtained. FINDINGS: The heart size is normal. The pulmonary vasculature is indistinct. Diffuse increased lung markings are present bilaterally compatible with atypical pneumonia. The gastric tube is curled within the retrocardiac region likely within a hiatal hernia. Endotracheal tube tip is above the allison IMPRESSION: 1. Stable diffuse increased lung markings compatible with atypical pneumonia.
[2020-03-28 08:16] LABS: Glucose,Whole Blood 178 mg/dL (75-99)
[2020-03-28] MEDS: SODIUM CHLORIDE 0.9% 1,000 ML IV SCH ×2 (08:28→18:56)
[2020-03-28] MEDS: CEFEPIME 2 GM in SODIUM CHLORIDE 0.9% 100 ML IVPB SCH ×2 (08:29→20:40)
[2020-03-28] MEDS: ENOXAPARIN 40 MG/0.4 ML SYRINGE SQ SCH (08:30)
[2020-03-28] MEDS: PANTOPRAZOLE 40 MG/10 ML VIAL IVP SCH ×2 (08:30→20:39)
[2020-03-28] MEDS: CHOLECALCIFEROL 400 UNIT TAB PO SCH (08:30)
[2020-03-28] MEDS: FUROSEMIDE 10 MG/ML 2 ML VIAL IV SCH (08:30)
[2020-03-28] MEDS: ZINC SULFATE 220 MG CAP PO SCH (08:31)
[2020-03-28] MEDS: ASCORBIC ACID 500 MG TAB PO SCH ×2 (08:31→20:40)
[2020-03-28] MEDS: CHLORHEXIDINE GLUCONATE 15 ML CUP MUCOUS MEM SCH ×2 (08:31→20:40)
--- NOTE | 2020-03-28 11:07 | P.PN ---
<Ana Parks - Last Filed: 03/28/20 11:01> Subjective Progress Note Date: 03/28/20 CHIEF COMPLAINT: GI bleed HISTORY OF PRESENT ILLNESS: Patient is currently hospitalized for respiratory failure and is COVID positive. She is currently in the ICU and intubated. She is being followed for her GI bleed. No bowel movement reported for this morning per nursing staff. She was started on tube feeds through NG tube. Patient is receiving bolus feedings 20 mL every 2 hours. Patient is tolerating tube feedings. The highest residual she's had is about 30 mL. Patient did receive 1 unit of blood yesterday. Afebrile. WBC 12.4 hemoglobin 7.9 AST 367 ALT 558 PHYSICAL EXAM: VITAL SIGNS: Reviewed. GENERAL: Well-developed in no acute distress. HEENT: No sclera icterus. Extraocular movements grossly intact. Moist buccal mucosa. Head is atraumatic, normocephalic. ABDOMEN: Soft. Nondistended. Nontender. NEUROLOGIC: Patient is intubated. ASSESSMENT: 1. Acute GI bleed 2. Acute on chronic blood loss anemia 3. Elevated liver enzymes with large gallstone present on abdominal ultrasound 4. Acute hypoxic respiratory failure requiring intubation 5. COVID positive PLAN: -Continue tube feedings for nutrition support -Continue to monitor hemoglobin -Dr. Henry will proceed with upper and lower endoscopy when stable -Continue supportive care Physician Professor Of Communication note has been reviewed by physician. Signing provider agrees with the documented findings, assessment, and plan of care. Objective - Vital Signs Vital signs: Vital Signs Temp 98.3 F 03/28/20 08:00 Pulse 63 03/28/20 09:00 Resp 24 03/28/20 09:00 BP 130/74 03/28/20 09:00 Pulse Ox 97 03/28/20 09:00 Intake & Output 03/27/20 03/28/20 03/28/20 18:59 06:59 18:59 Intake Total 7800.854 8091.73 610 Output Total 1475 505 420 Balance 433.498 5378.73 190 Weight 85.3 kg 80.9 kg Intake: IV 1225 1550 500 0.9 NaCl- 1100 1200 400 Vancomycin 1,500 mg In 125 250 Sodium Chloride 0.9% 250 ml @ 125 mls/hr IVPB Q16H [facility] Rx#:[id number] cefepime 100 100 Intake, IV Titration 200.000 196.73 Amount propofoL 1,000 mg In 200.000 196.73 Empty Bag 1 bag @ Titrate IV .Q0M [facility] Rx#: [id number] Tube Feeding 120 40 Blood Product 310 Rc As-1 Unit 310 [id number] Other 170 70 Output: Urine 1475 505 420 Other: Voiding Method Indwelling Catheter Indwelling Catheter # Bowel Movements 1 - Labs CBC & Chem 7: 03/28/20 04:39 03/28/20 04:38 Labs: Abnormal Lab Results - Last 24 Hours (Table) 03/25/20 03/27/20 03/27/20 Range/Units 11:20 11:25 15:35 WBC (3.8-10.6) k/uL RBC (3.80-5.40) m/uL Hgb (11.4-16.0) gm/dL Hct (34.0-46.0) % RDW (11.5-15.5) % Neutrophils # (1.3-7.7) k/uL Lymphocytes # (1.0-4.8) k/uL D-Dimer (<0.60) mg/L FEU ABG O2 Saturation (94-97) % Chloride (98-107) mmol/L BUN (7-17) mg/dL Creatinine (0.52-1.04) mg/dL Glucose (74-99) mg/dL POC Glucose (mg/dL) 217 H 209 H (75-99) mg/dL Calcium (8.4-10.2) mg/dL Ferritin (10.0-291.0) ng/mL AST (14-36) U/L ALT (4-34) U/L C-Reactive Protein (<10.0) mg/L Total Protein (6.3-8.2) g/dL Albumin (3.5-5.0) g/dL Crossmatch See Detail 03/27/20 03/28/20 03/28/20 Range/Units 20:10 00:02 04:15 WBC (3.8-10.6) k/uL RBC (3.80-5.40) m/uL Hgb (11.4-16.0) gm/dL Hct (34.0-46.0) % RDW (11.5-15.5) % Neutrophils # (1.3-7.7) k/uL Lymphocytes # (1.0-4.8) k/uL D-Dimer (<0.60) mg/L FEU ABG O2 Saturation (94-97) % Chloride (98-107) mmol/L BUN (7-17) mg/dL Creatinine (0.52-1.04) mg/dL Glucose (74-99) mg/dL POC Glucose (mg/dL) 145 H 160 H 173 H (75-99) mg/dL Calcium (8.4-10.2) mg/dL Ferritin (10.0-291.0) ng/mL AST (14-36) U/L ALT (4-34) U/L C-Reactive Protein (<10.0) mg/L Total Protein (6.3-8.2) g/dL Albumin (3.5-5.0) g/dL Crossmatch 03/28/20 03/28/20 03/28/20 Range/Units 04:38 04:38 04:39 WBC 12.4 H (3.8-10.6) k/uL RBC 2.75 L (3.80-5.40) m/uL Hgb 7.9 L (11.4-16.0) gm/dL Hct 25.1 L (34.0-46.0) % RDW 16.7 H (11.5-15.5) % Neutrophils # 11.6 H (1.3-7.7) k/uL Lymphocytes # 0.4 L (1.0-4.8) k/uL D-Dimer 3.24 H (<0.60) mg/L FEU ABG O2 Saturation (94-97) % Chloride 115 H (98-107) mmol/L BUN 51 H (7-17) mg/dL Creatinine 1.05 H (0.52-1.04) mg/dL Glucose 173 H (74-99) mg/dL POC Glucose (mg/dL) (75-99) mg/dL Calcium 6.7 L (8.4-10.2) mg/dL Ferritin 2616.0 H (10.0-291.0) ng/mL AST 367 H (14-36) U/L ALT 558 H (4-34) U/L C-Reactive Protein 69.5 H (<10.0) mg/L Total Protein 4.7 L (6.3-8.2) g/dL Albumin 2.1 L (3.5-5.0) g/dL Crossmatch 03/28/20 03/28/20 Range/Units 06:00 08:15 WBC (3.8-10.6) k/uL RBC (3.80-5.40) m/uL Hgb (11.4-16.0) gm/dL Hct (34.0-46.0) % RDW (11.5-15.5) % Neutrophils # (1.3-7.7) k/uL Lymphocytes # (1.0-4.8) k/uL D-Dimer (<0.60) mg/L FEU ABG O2 Saturation 98.6 H (94-97) % Chloride (98-107) mmol/L BUN (7-17) mg/dL Creatinine (0.52-1.04) mg/dL Glucose (74-99) mg/dL POC Glucose (mg/dL) 178 H (75-99) mg/dL Calcium (8.4-10.2) mg/dL Ferritin (10.0-291.0) ng/mL AST (14-36) U/L ALT (4-34) U/L C-Reactive Protein (<10.0) mg/L Total Protein (6.3-8.2) g/dL Albumin (3.5-5.0) g/dL Crossmatch Microbiology - Last 24 Hours (Table) 03/26/20 04:02 Gram Stain - Final Sputum Sputum Culture - Final 03/25/20 11:58 Blood Culture - Preliminary Blood No Growth after 48 hours <William Henry - Last Filed: 03/28/20 11:46> Subjective As above. Patient doing better today. Hemoglobin 7.9. No bowel activity since yesterday morning. Tolerating tube feeds currently. Oxygen requirements improved. Continue monitoring hemoglobin. Continue ventilatory support and weaning as able. Objective - Vital Signs Vital signs: Vital Signs Temp 98.3 F 03/28/20 08:00 Pulse 64 03/28/20 11:00 Resp 24 03/28/20 11:00 BP 126/68 03/28/20 11:00 Pulse Ox 97 03/28/20 11:00 Intake & Output 03/27/20 03/28/20 03/28/20 18:59 06:59 18:59 Intake Total 9458.609 5026.73 806.346 Output Total 1475 505 795 Balance 345.077 8250.73 11.346 Weight 85.3 kg 80.9 kg Intake: IV 1225 1550 600 0.9 NaCl- 1100 1200 500 Vancomycin 1,500 mg In 125 250 Sodium Chloride 0.9% 250 ml @ 125 mls/hr IVPB Q16H [facility] Rx#:[id number] cefepime 100 100 Intake, IV Titration 200.000 196.73 96.346 Amount propofoL 1,000 mg In 200.000 196.73 96.346 Empty Bag 1 bag @ Titrate IV .Q0M [facility] Rx#: [id number] Tube Feeding 120 40 Blood Product 310 Rc As-1 Unit 310 [id number] Other 170 70 Output: Urine 1475 505 795 Other: Voiding Method Indwelling Catheter Indwelling Catheter # Bowel Movements 1 - Labs CBC & Chem 7: 03/28/20 04:39 03/28/20 04:38 Labs: Abnormal Lab Results - Last 24 Hours (Table) 03/25/20 03/27/20 03/27/20 Range/Units 11: 15:35 20:10 WBC (3.8-10.6) k/uL RBC (3.80-5.40) m/uL Hgb (11.4-16.0) gm/dL Hct (34.0-46.0) % RDW (11.5-15.5) % Neutrophils # (1.3-7.7) k/uL Lymphocytes # (1.0-4.8) k/uL D-Dimer (<0.60) mg/L FEU ABG O2 Saturation (94-97) % Chloride (98-107) mmol/L BUN (7-17) mg/dL Creatinine (0.52-1.04) mg/dL Glucose (74-99) mg/dL POC Glucose (mg/dL) 209 H 145 H (75-99) mg/dL Calcium (8.4-10.2) mg/dL Ferritin (10.0-291.0) ng/mL AST (14-36) U/L ALT (4-34) U/L C-Reactive Protein (<10.0) mg/L Total Protein (6.3-8.2) g/dL Albumin (3.5-5.0) g/dL Crossmatch See Detail 03/28/20 03/28/20 03/28/20 Range/Units 00:02 04:15 04:38 WBC (3.8-10.6) k/uL RBC (3.80-5.40) m/uL Hgb (11.4-16.0) gm/dL Hct (34.0-46.0) % RDW (11.5-15.5) % Neutrophils # (1.3-7.7) k/uL Lymphocytes # (1.0-4.8) k/uL D-Dimer (<0.60) mg/L FEU ABG O2 Saturation (94-97) % Chloride 115 H (98-107) mmol/L BUN 51 H (7-17) mg/dL Creatinine 1.05 H (0.52-1.04) mg/dL Glucose 173 H (74-99) mg/dL POC Glucose (mg/dL) 160 H 173 H (75-99) mg/dL Calcium 6.7 L (8.4-10.2) mg/dL Ferritin 2616.0 H (10.0-291.0) ng/mL AST 367 H (14-36) U/L ALT 558 H (4-34) U/L C-Reactive Protein 69.5 H (<10.0) mg/L Total Protein 4.7 L (6.3-8.2) g/dL Albumin 2.1 L (3.5-5.0) g/dL Crossmatch 03/28/20 03/28/20 03/28/20 Range/Units 04:38 04:39 06:00 WBC 12.4 H (3.8-10.6) k/uL RBC 2.75 L (3.80-5.40) m/uL Hgb 7.9 L (11.4-16.0) gm/dL Hct 25.1 L (34.0-46.0) % RDW 16.7 H (11.5-15.5) % Neutrophils # 11.6 H (1.3-7.7) k/uL Lymphocytes # 0.4 L (1.0-4.8) k/uL D-Dimer 3.24 H (<0.60) mg/L FEU ABG O2 Saturation 98.6 H (94-97) % Chloride (98-107) mmol/L BUN (7-17) mg/dL Creatinine (0.52-1.04) mg/dL Glucose (74-99) mg/dL POC Glucose (mg/dL) (75-99) mg/dL Calcium (8.4-10.2) mg/dL Ferritin (10.0-291.0) ng/mL AST (14-36) U/L ALT (4-34) U/L C-Reactive Protein (<10.0) mg/L Total Protein (6.3-8.2) g/dL Albumin (3.5-5.0) g/dL Crossmatch 03/28/20 03/28/20 Range/Units 08:15 11:39 WBC (3.8-10.6) k/uL RBC (3.80-5.40) m/uL Hgb (11.4-16.0) gm/dL Hct (34.0-46.0) % RDW (11.5-15.5) % Neutrophils # (1.3-7.7) k/uL Lymphocytes # (1.0-4.8) k/uL D-Dimer (<0.60) mg/L FEU ABG O2 Saturation (94-97) % Chloride (98-107) mmol/L BUN (7-17) mg/dL Creatinine (0.52-1.04) mg/dL Glucose (74-99) mg/dL POC Glucose (mg/dL) 178 H 184 H (75-99) mg/dL Calcium (8.4-10.2) mg/dL Ferritin (10.0-291.0) ng/mL AST (14-36) U/L ALT (4-34) U/L C-Reactive Protein (<10.0) mg/L Total Protein (6.3-8.2) g/dL Albumin (3.5-5.0) g/dL Crossmatch Microbiology - Last 24 Hours (Table) 03/26/20 04:02 Gram Stain - Final Sputum Sputum Culture - Final 03/25/20 11:58 Blood Culture - Preliminary Blood No Growth after 48 hours Assessment and Plan (1) GI bleed Current Visit: Yes Status: Acute Code(s): K92.2 - GASTROINTESTINAL HEMORRHAGE, UNSPECIFIED SNOMED Code(s): 77525209
[2020-03-28 11:42] LABS: Glucose,Whole Blood 184 mg/dL (75-99)
[2020-03-28] MEDS: VANCOMYCIN 1,500 MG in SODIUM CHLORIDE 0.9% 250 ML IVPB SCH (13:09)
--- NOTE | 2020-03-28 13:21 | P.PN ---
Subjective Progress Note Date: 03/28/20 Principal diagnosis: Elevated liver enzymes shortness of breath She was seen and examined in the ICU. She is sedated and on mechanical ventilation. NG tube is in place with no active bleeding from NG tube, she is now receiving tube feeds. The nurse states had some improvement through the night. She has had no further bowel movements. Repeat LFTs trending down, today bilirubin 0.4, alkaline phosphatase 121, AST 367, ALT 558. Objective - Vital Signs Vital signs: Vital Signs Temp 98.3 F 03/28/20 08:00 Pulse 64 03/28/20 11:00 Resp 24 03/28/20 11:00 BP 126/68 03/28/20 11:00 Pulse Ox 97 03/28/20 11:00 Intake & Output 03/27/20 03/28/20 03/28/20 18:59 06:59 18:59 Intake Total 1547.627 8151.73 806.346 Output Total 1475 505 795 Balance 676.805 2310.73 11.346 Weight 85.3 kg 80.9 kg 80.9 kg Intake: IV 1225 1550 600 0.9 NaCl- 1100 1200 500 Vancomycin 1,500 mg In 125 250 Sodium Chloride 0.9% 250 ml @ 125 mls/hr IVPB Q16H [facility] Rx#:[id number] cefepime 100 100 Intake, IV Titration 200.000 196.73 96.346 Amount propofoL 1,000 mg In 200.000 196.73 96.346 Empty Bag 1 bag @ Titrate IV .Q0M [facility] Rx#: [id number] Tube Feeding 120 40 Blood Product 310 Rc As-1 Unit 310 [id number] Other 170 70 Output: Urine 1475 505 795 Other: Voiding Method Indwelling Catheter Indwelling Catheter # Bowel Movements 1 0 - Exam General appearance: Sedated and intubated. Obeses. HET: Head is normocephalic and atraumatic. Neck: Supple without lymphadenopathy. Abdomen: Soft, nontender, obese, nondistended with bowel sounds. No guarding or rigidity. Extremities: Normal skin color and turgor. Lateral lower extremity edema Neurological: Intubated and sedated. - Labs CBC & Chem 7: 03/28/20 04:39 03/28/20 04:38 Labs: Abnormal Lab Results - Last 24 Hours (Table) 03/27/20 03/27/20 03/28/20 Range/Units 15:35 20:10 00:02 WBC (3.8-10.6) k/uL RBC (3.80-5.40) m/uL Hgb (11.4-16.0) gm/dL Hct (34.0-46.0) % RDW (11.5-15.5) % Neutrophils # (1.3-7.7) k/uL Lymphocytes # (1.0-4.8) k/uL D-Dimer (<0.60) mg/L FEU ABG O2 Saturation (94-97) % Chloride (98-107) mmol/L BUN (7-17) mg/dL Creatinine (0.52-1.04) mg/dL Glucose (74-99) mg/dL POC Glucose (mg/dL) 209 H 145 H 160 H (75-99) mg/dL Calcium (8.4-10.2) mg/dL Ferritin (10.0-291.0) ng/mL AST (14-36) U/L ALT (4-34) U/L C-Reactive Protein (<10.0) mg/L Total Protein (6.3-8.2) g/dL Albumin (3.5-5.0) g/dL 03/28/20 03/28/20 03/28/20 Range/Units 04:15 04:38 04:38 WBC (3.8-10.6) k/uL RBC (3.80-5.40) m/uL Hgb (11.4-16.0) gm/dL Hct (34.0-46.0) % RDW (11.5-15.5) % Neutrophils # (1.3-7.7) k/uL Lymphocytes # (1.0-4.8) k/uL D-Dimer 3.24 H (<0.60) mg/L FEU ABG O2 Saturation (94-97) % Chloride 115 H (98-107) mmol/L BUN 51 H (7-17) mg/dL Creatinine 1.05 H (0.52-1.04) mg/dL Glucose 173 H (74-99) mg/dL POC Glucose (mg/dL) 173 H (75-99) mg/dL Calcium 6.7 L (8.4-10.2) mg/dL Ferritin 2616.0 H (10.0-291.0) ng/mL AST 367 H (14-36) U/L ALT 558 H (4-34) U/L C-Reactive Protein 69.5 H (<10.0) mg/L Total Protein 4.7 L (6.3-8.2) g/dL Albumin 2.1 L (3.5-5.0) g/dL 03/28/20 03/28/20 03/28/20 Range/Units 04:39 06:00 08:15 WBC 12.4 H (3.8-10.6) k/uL RBC 2.75 L (3.80-5.40) m/uL Hgb 7.9 L (11.4-16.0) gm/dL Hct 25.1 L (34.0-46.0) % RDW 16.7 H (11.5-15.5) % Neutrophils # 11.6 H (1.3-7.7) k/uL Lymphocytes # 0.4 L (1.0-4.8) k/uL D-Dimer (<0.60) mg/L FEU ABG O2 Saturation 98.6 H (94-97) % Chloride (98-107) mmol/L BUN (7-17) mg/dL Creatinine (0.52-1.04) mg/dL Glucose (74-99) mg/dL POC Glucose (mg/dL) 178 H (75-99) mg/dL Calcium (8.4-10.2) mg/dL Ferritin (10.0-291.0) ng/mL AST (14-36) U/L ALT (4-34) U/L C-Reactive Protein (<10.0) mg/L Total Protein (6.3-8.2) g/dL Albumin (3.5-5.0) g/dL 03/28/20 Range/Units 11:39 WBC (3.8-10.6) k/uL RBC (3.80-5.40) m/uL Hgb (11.4-16.0) gm/dL Hct (34.0-46.0) % RDW (11.5-15.5) % Neutrophils # (1.3-7.7) k/uL Lymphocytes # (1.0-4.8) k/uL D-Dimer (<0.60) mg/L FEU ABG O2 Saturation (94-97) % Chloride (98-107) mmol/L BUN (7-17) mg/dL Creatinine (0.52-1.04) mg/dL Glucose (74-99) mg/dL POC Glucose (mg/dL) 184 H (75-99) mg/dL Calcium (8.4-10.2) mg/dL Ferritin (10.0-291.0) ng/mL AST (14-36) U/L ALT (4-34) U/L C-Reactive Protein (<10.0) mg/L Total Protein (6.3-8.2) g/dL Albumin (3.5-5.0) g/dL Microbiology - Last 24 Hours (Table) 03/26/20 04:02 Gram Stain - Final Sputum Sputum Culture - Final 03/25/20 11:58 Blood Culture - Preliminary Blood No Growth after 48 hours Assessment and Plan (1) COVID-19 Narrative/Plan: 69-year-old female with multiple medical comorbidities who presented to the hospital due to worsening shortness of breath, currently the patient is intubated and sedated in the intensive care unit where she is being treated for infection with COVID-19. The patient was found to have markedly elevated liver enzymes on presentation which are currently trending down, with initial total bilirubin 0.7, alkaline phosphatase 173, AST 4151 and ALT 1463. Likely etiology of elevation in liver enzymes is underlying viral infection and hypoperfusion in the setting of sepsis, acute viral hepatitis panel was negative and ultrasound was significant only for cholelithiasis with a hyperechoic area in the liver likely related to hemangioma with a hepatic mass less likely in the absence of cirrhosis. Current Visit: Yes Status: Acute Code(s): U07.1 - COVID-19 SNOMED Code(s): 007039209 (2) Elevated liver enzymes Current Visit: Yes Status: Acute Code(s): R74.8 - ABNORMAL LEVELS OF OTHER SERUM ENZYMES SNOMED Code(s): 858843618 (3) Iron deficiency anemia due to chronic blood loss Current Visit: No Status: Acute Priority: High Code(s): D50.0 - IRON DEFICIENCY ANEMIA SECONDARY TO BLOOD LOSS (CHRONIC) SNOMED Code(s): 405265428 Plan: Supportive care Continue ICU management Continue to monitor CBC, BMP, LFTs Acute viral hepatitis panel negative Ultrasound of the abdomen essentially negative except for findings of cholelithiasis and a possible hemangioma versus mass which would be unlikely in the absence of cirrhosis, alpha-fetoprotein normal Liver enzymes continue to improve, we will sign off at this time. Please do not hesitate to call us back if there are any further concerns. Dr. Perez I agree with the dictator's note, documented as a scribe by Carol Griggs.
[2020-03-28] MEDS ORDERED: LIDOCAINE 1% INJ 10MG/ML (20 ML MDV) SQ ONE (14:55)
--- NOTE | 2020-03-28 15:28 | P.PN ---
Subjective Progress Note Date: 03/28/20 (Critical care time 35 minutes) Principal diagnosis: Acute hypoxic respiratory failure Covid19 pneumonia Acute respiratory and metabolic acidosis Acute hepatitis/elevated liver enzymes Acute diastolic heart failure and fluid overload Chronic anemia Fibromyalgia Hypertension hypertensive cardiovascular disease 03/28/2020, patient seen eval examined during the rounds labs reviewed medications reviewed care plan discussed oxygen has been down to 40% now. The patient is PEEP of 8, otherwise ventilator setting remains stable, patient is scheduled for PICC line later on today, remains on propofol, remains on broad- spectrum antibiotics, labs from today has been reviewed hemoglobin is stable 7.9, d-dimer is 3.24, arterial blood gases stable pH is 7.41 pCO2 35 pO2 96, B UN/creatinine is 51 and 1.05, ferritin level remains more than 26,000, AST ALT continued decline however today is 367 and 558, C-reactive protein checked 69.5 her chest x-ray earlier than today remains there however appears to have slightly progressed 03/27/2020, patient seen eval examined during the rounds labs reviewed medications reviewed care plan discussed, propofol has been discontinued patient because very restless and anxious, we'll restart propofol, patient has been on full ventilator support assist control 24 tidal volume of 450, PEEP is 10, oxygen is 70%, arterial blood gases reviewed when lower the FiO2 to 60% now plan to bring down the FiO2 to 50% and PEEP of 8 next 24 hours, sputum and blood cultures reviewed no growth so far, chest x-ray performed today reviewed significant improvement in infiltrates seen bilaterally, patient has a poor urine output throughout the night, 20 mg of Lasix was given put out 600 mL of urine patient continued to be on gentle hydration, remain on cefapime and Vanco, Lovenox Solu-Medrol multivitamin and vitamin C zinc and Lovenox, white cell count is stable 10,500 hemoglobin and hematocrit 7.2 and 24, general surgery has been following patient is considered to get EGD and colonoscopy once stable, arterial blood gas revealed pH of 7.39 pCO2 of 39 pO2 of 124, bicarb 25, liver enzymes continue to come down AST and ALT now is 944/809, hepatitis panel normal and nonreactive 03/26/2020, patient seen eval examined in the ICU care plan discussed with the staff, FiO2 has been down to 60%, patient remains on assist control tidal volume of 450, PEEP is 10, respiratory rate is 24 breathing with the respirator pH has been improved significantly, patient is making adequate urine chest x-ray compared with yesterday's x-ray some improvement have been noted, white cell count is 11,000, hemoglobin 7.9 which is stable, arterial blood gas improved to 7.39, pCO2 of 40, pO2 112, BUN/creatinine is 33/0.96, lactic acid was 5.9 down to 1.3 now, ferritin level noted to be 12,800, AST and ALT are 4014 100 with LDH over 21,500, today LFTs significantly improved AST is down to 2795 and ALT is 1222, pro calcitonin is 0.84, suspect some component of heart failure as well as pneumonia, will get an echocardiogram as well as start patient on broad-spectrum antibiotics with cefepime and Vanco Patient seen and evaluated examined in the emergency department, patient came into the ER from the office of Dr. Aleman due to progressive shortness of b reath, patient has acute on chronic hypoxic respiratory failure on 4 L oxygen, also has issues associated with pneumonia presumed to be cold with 19, however, testing was negative, patient used to smoke in the remote past quit about 20-30 years ago due to severity or shortness of breath and hypoxia with saturation of 76% on 100% oxygen and respiratory distress patient was intubated due to poor tolerance on BiPAP, patient Covid testing came back positive, chest x-ray showing diffuse infiltrate she also has been noted to have elevated liver enzymes due to elevated liver enzymes will not start IV REMdesivir, Initial ABG pH is 7.18, pCO2 is 63 pO2 was only 33 Objective - Vital Signs Vital signs: Vital Signs Temp 98.3 F 03/28/20 12:00 Pulse 63 03/28/20 14:00 Resp 24 03/28/20 14:00 BP 143/70 03/28/20 14:00 Pulse Ox 98 03/28/20 14:00 Intake & Output 03/27/20 03/28/20 03/28/20 18:59 06:59 18:59 Intake Total 2172.145 0276.73 1116.346 Output Total 2575 860 3302 Balance 639.822 0235.73 -178.654 Weight 85.3 kg 80.9 kg 80.9 kg Intake: IV 1225 1550 850 0.9 NaCl- 1100 1200 500 Vancomycin 1,500 mg In 125 250 250 Sodium Chloride 0.9% 250 ml @ 125 mls/hr IVPB Q16H NONA Rx#:[id number] cefepime 100 100 Intake, IV Titration 200.000 196.73 96.346 Amount propofoL 1,000 mg In 200.000 196.73 96.346 Empty Bag 1 bag @ Titrate IV .Q0M NONA Rx#: [id number] Tube Feeding 120 80 Blood Product 310 Rc As-1 Unit 310 [id number] Other 170 90 Output: Urine 4838 416 5059 Other: Voiding Method Indwelling Catheter Indwelling Catheter # Bowel Movements 1 0 - Exam Intubated sedated with propofol - Constitutional General appearance: average body habitus, mild distress - EENT Ears: bilateral: normal - Neck Carotids: bilateral: upstroke normal Thyroid: bilateral: normal size - Respiratory Respiratory: bilateral: diminished - Cardiovascular Rhythm: regular Heart sounds: normal: S1, S2 - Gastrointestinal General gastrointestinal: normal bowel sounds Sedated with propofol on full ventilator support with 100% oxygen and assist control mode - Labs CBC & Chem 7: 03/28/20 04:39 03/28/20 04:38 Labs: Abnormal Lab Results - Last 24 Hours (Table) 03/27/20 03/27/20 03/28/20 Range/Units 15:35 20:10 00:02 WBC (3.8-10.6) k/uL RBC (3.80-5.40) m/uL Hgb (11.4-16.0) gm/dL Hct (34.0-46.0) % RDW (11.5-15.5) % Neutrophils # (1.3-7.7) k/uL Lymphocytes # (1.0-4.8) k/uL D-Dimer (<0.60) mg/L FEU ABG O2 Saturation (94-97) % Chloride (98-107) mmol/L BUN (7-17) mg/dL Creatinine (0.52-1.04) mg/dL Glucose (74-99) mg/dL POC Glucose (mg/dL) 209 H 145 H 160 H (75-99) mg/dL Calcium (8.4-10.2) mg/dL Ferritin (10.0-291.0) ng/mL AST (14-36) U/L ALT (4-34) U/L C-Reactive Protein (<10.0) mg/L Total Protein (6.3-8.2) g/dL Albumin (3.5-5.0) g/dL 03/28/20 03/28/20 03/28/20 Range/Units 04:15 04:38 04:38 WBC (3.8-10.6) k/uL RBC (3.80-5.40) m/uL Hgb (11.4-16.0) gm/dL Hct (34.0-46.0) % RDW (11.5-15.5) % Neutrophils # (1.3-7.7) k/uL Lymphocytes # (1.0-4.8) k/uL D-Dimer 3.24 H (<0.60) mg/L FEU ABG O2 Saturation (94-97) % Chloride 115 H (98-107) mmol/L BUN 51 H (7-17) mg/dL Creatinine 1.05 H (0.52-1.04) mg/dL Glucose 173 H (74-99) mg/dL POC Glucose (mg/dL) 173 H (75-99) mg/dL Calcium 6.7 L (8.4-10.2) mg/dL Ferritin 2616.0 H (10.0-291.0) ng/mL AST 367 H (14-36) U/L ALT 558 H (4-34) U/L C-Reactive Protein 69.5 H (<10.0) mg/L Total Protein 4.7 L (6.3-8.2) g/dL Albumin 2.1 L (3.5-5.0) g/dL 03/28/20 03/28/20 03/28/20 Range/Units 04:39 06:00 08:15 WBC 12.4 H (3.8-10.6) k/uL RBC 2.75 L (3.80-5.40) m/uL Hgb 7.9 L (11.4-16.0) gm/dL Hct 25.1 L (34.0-46.0) % RDW 16.7 H (11.5-15.5) % Neutrophils # 11.6 H (1.3-7.7) k/uL Lymphocytes # 0.4 L (1.0-4.8) k/uL D-Dimer (<0.60) mg/L FEU ABG O2 Saturation 98.6 H (94-97) % Chloride (98-107) mmol/L BUN (7-17) mg/dL Creatinine (0.52-1.04) mg/dL Glucose (74-99) mg/dL POC Glucose (mg/dL) 178 H (75-99) mg/dL Calcium (8.4-10.2) mg/dL Ferritin (10.0-291.0) ng/mL AST (14-36) U/L ALT (4-34) U/L C-Reactive Protein (<10.0) mg/L Total Protein (6.3-8.2) g/dL Albumin (3.5-5.0) g/dL 03/28/20 Range/Units 11:39 WBC (3.8-10.6) k/uL RBC (3.80-5.40) m/uL Hgb (11.4-16.0) gm/dL Hct (34.0-46.0) % RDW (11.5-15.5) % Neutrophils # (1.3-7.7) k/uL Lymphocytes # (1.0-4.8) k/uL D-Dimer (<0.60) mg/L FEU ABG O2 Saturation (94-97) % Chloride (98-107) mmol/L BUN (7-17) mg/dL Creatinine (0.52-1.04) mg/dL Glucose (74-99) mg/dL POC Glucose (mg/dL) 184 H (75-99) mg/dL Calcium (8.4-10.2) mg/dL Ferritin (10.0-291.0) ng/mL AST (14-36) U/L ALT (4-34) U/L C-Reactive Protein (<10.0) mg/L Total Protein (6.3-8.2) g/dL Albumin (3.5-5.0) g/dL Microbiology - Last 24 Hours (Table) 03/25/20 11:58 Blood Culture - Preliminary Blood No Growth after 72 hours 03/26/20 04:02 Gram Stain - Final Sputum Sputum Culture - Final Assessment and Plan Assessment: Acute hypoxic respiratory failure Covid19 pneumonia Acute pneumonia bacterial bilateral healthcare associated Acute respiratory and metabolic acidosis Acute hepatitis/elevated liver enzymes Acute diastolic heart failure Chronic anemia Fibromyalgia Hypertension hypertensive cardiovascular disease Plan: Ventilator support adjustment of ventilator as per clinical response and arterial blood gases, will attempt weaning trial starting tomorrow IV antibiotics broad-spectrum IV Lasix 20 mg daily keep on negative side Sputum culture and blood culture IV fluids with gentle hydration Enteral nutrition via tube feeding Trend liver enzymes Patient is not a candidate for IV REMdesivir IV steroids Further recommendations pending plan of care as per clinical response of patient Time with Patient: Greater than 30
--- NOTE | 2020-03-28 15:47 | XR ---
EXAMINATION TYPE: XR chest 1V confirm line [facility] DATE OF EXAM: 03/28/2020 COMPARISON: Prior chest x-ray same dated earlier time HISTORY: Covid pneumonia status post PICC line placement TECHNIQUE: Single frontal view of the chest is obtained. FINDINGS: There is been interval placement of right-sided PICC line with the tip near the cavoatrial junction level. No other significant interval change. IMPRESSION: No evident complication status post PICC line placement.
[2020-03-28 16:07] LABS: Glucose,Whole Blood 204 mg/dL (75-99)
--- NOTE | 2020-03-28 16:16 | P.PN ---
Subjective Principal diagnosis: This is a continue progress note on 6-year-old white female with history of chronic anemia who is admitted for respiratory failure related to Covid pneumonia. The patient is intubated but has had some rectal bleeding. We will go ahead and type and screen for one unit. Otherwise appreciate multiple consultants input. The patient continues to be intubated at FIO2 of 50 percent. Objective - Vital Signs Vital signs: Vital Signs Temp 98.3 F 03/28/20 12:00 Pulse 63 03/28/20 14:00 Resp 24 03/28/20 14:00 BP 143/70 03/28/20 14:00 Pulse Ox 98 03/28/20 14:00 Intake & Output 03/27/20 03/28/20 03/28/20 18:59 06:59 18:59 Intake Total 9102.216 1194.73 1116.346 Output Total 5431 271 8989 Balance 624.435 3823.73 -178.654 Weight 85.3 kg 80.9 kg 80.9 kg Intake: IV 1225 1550 850 0.9 NaCl- 1100 1200 500 Vancomycin 1,500 mg In 125 250 250 Sodium Chloride 0.9% 250 ml @ 125 mls/hr IVPB Q16H NONA Rx#:[id number] cefepime 100 100 Intake, IV Titration 200.000 196.73 96.346 Amount propofoL 1,000 mg In 200.000 196.73 96.346 Empty Bag 1 bag @ Titrate IV .Q0M NONA Rx#: [id number] Tube Feeding 120 80 Blood Product 310 Rc As-1 Unit 310 [id number] Other 170 90 Output: Urine 6334 662 6033 Other: Voiding Method Indwelling Catheter Indwelling Catheter # Bowel Movements 1 0 - Constitutional General appearance: Present: average body habitus - EENT Eyes: Absent: abnormal pupil ENT: Absent: hard of hearing - Neck Neck: Absent: lymphadenopathy - Respiratory Respiratory: bilateral: diminished - Cardiovascular Rhythm: regular Heart sounds: normal: S1, S2 Abnormal Heart Sounds: Absent: S3 Gallop - Gastrointestinal General gastrointestinal: Present: soft. Absent: tenderness - Neurologic Neurologic: Absent: CNII-XII intact - Labs CBC & Chem 7: 03/28/20 04:39 03/28/20 04:38 Labs: Abnormal Lab Results - Last 24 Hours (Table) 03/27/20 03/28/20 03/28/20 Range/Units 20:10 00:02 04:15 WBC (3.8-10.6) k/uL RBC (3.80-5.40) m/uL Hgb (11.4-16.0) gm/dL Hct (34.0-46.0) % RDW (11.5-15.5) % Neutrophils # (1.3-7.7) k/uL Lymphocytes # (1.0-4.8) k/uL D-Dimer (<0.60) mg/L FEU ABG O2 Saturation (94-97) % Chloride (98-107) mmol/L BUN (7-17) mg/dL Creatinine (0.52-1.04) mg/dL Glucose (74-99) mg/dL POC Glucose (mg/dL) 145 H 160 H 173 H (75-99) mg/dL Calcium (8.4-10.2) mg/dL Ferritin (10.0-291.0) ng/mL AST (14-36) U/L ALT (4-34) U/L C-Reactive Protein (<10.0) mg/L Total Protein (6.3-8.2) g/dL Albumin (3.5-5.0) g/dL 03/28/20 03/28/20 03/28/20 Range/Units 04:38 04:38 04:39 WBC 12.4 H (3.8-10.6) k/uL RBC 2.75 L (3.80-5.40) m/uL Hgb 7.9 L (11.4-16.0) gm/dL Hct 25.1 L (34.0-46.0) % RDW 16.7 H (11.5-15.5) % Neutrophils # 11.6 H (1.3-7.7) k/uL Lymphocytes # 0.4 L (1.0-4.8) k/uL D-Dimer 3.24 H (<0.60) mg/L FEU ABG O2 Saturation (94-97) % Chloride 115 H (98-107) mmol/L BUN 51 H (7-17) mg/dL Creatinine 1.05 H (0.52-1.04) mg/dL Glucose 173 H (74-99) mg/dL POC Glucose (mg/dL) (75-99) mg/dL Calcium 6.7 L (8.4-10.2) mg/dL Ferritin 2616.0 H (10.0-291.0) ng/mL AST 367 H (14-36) U/L ALT 558 H (4-34) U/L C-Reactive Protein 69.5 H (<10.0) mg/L Total Protein 4.7 L (6.3-8.2) g/dL Albumin 2.1 L (3.5-5.0) g/dL 03/28/20 03/28/20 03/28/20 Range/Units 06:00 08:15 11:39 WBC (3.8-10.6) k/uL RBC (3.80-5.40) m/uL Hgb (11.4-16.0) gm/dL Hct (34.0-46.0) % RDW (11.5-15.5) % Neutrophils # (1.3-7.7) k/uL Lymphocytes # (1.0-4.8) k/uL D-Dimer (<0.60) mg/L FEU ABG O2 Saturation 98.6 H (94-97) % Chloride (98-107) mmol/L BUN (7-17) mg/dL Creatinine (0.52-1.04) mg/dL Glucose (74-99) mg/dL POC Glucose (mg/dL) 178 H 184 H (75-99) mg/dL Calcium (8.4-10.2) mg/dL Ferritin (10.0-291.0) ng/mL AST (14-36) U/L ALT (4-34) U/L C-Reactive Protein (<10.0) mg/L Total Protein (6.3-8.2) g/dL Albumin (3.5-5.0) g/dL 03/28/20 Range/Units 16:06 WBC (3.8-10.6) k/uL RBC (3.80-5.40) m/uL Hgb (11.4-16.0) gm/dL Hct (34.0-46.0) % RDW (11.5-15.5) % Neutrophils # (1.3-7.7) k/uL Lymphocytes # (1.0-4.8) k/uL D-Dimer (<0.60) mg/L FEU ABG O2 Saturation (94-97) % Chloride (98-107) mmol/L BUN (7-17) mg/dL Creatinine (0.52-1.04) mg/dL Glucose (74-99) mg/dL POC Glucose (mg/dL) 204 H (75-99) mg/dL Calcium (8.4-10.2) mg/dL Ferritin (10.0-291.0) ng/mL AST (14-36) U/L ALT (4-34) U/L C-Reactive Protein (<10.0) mg/L Total Protein (6.3-8.2) g/dL Albumin (3.5-5.0) g/dL Microbiology - Last 24 Hours (Table) 03/25/20 11:58 Blood Culture - Preliminary Blood No Growth after 72 hours 03/26/20 04:02 Gram Stain - Final Sputum Sputum Culture - Final Assessment and Plan (1) Acute respiratory distress syndrome Current Visit: Yes Status: Acute Code(s): J80 - ACUTE RESPIRATORY DISTRESS SYNDROME SNOMED Code(s): 77943152 (2) Anemia Current Visit: Yes Status: Acute Code(s): D64.9 - ANEMIA, UNSPECIFIED SNOMED Code(s): 996812679 (3) COVID-19 Current Visit: Yes Status: Acute Code(s): U07.1 - COVID-19 SNOMED Code(s): 102668107 (4) Pneumonia Current Visit: Yes Status: Acute Code(s): J18.9 - PNEUMONIA, UNSPECIFIED ORGANISM SNOMED Code(s): 694225726 (5) Fibromyalgia Current Visit: No Status: Acute Code(s): M79.7 - FIBROMYALGIA SNOMED Code(s): 981800453 Plan: Appropriate supportive care. Hopefully, we can start slowly weaning her off the vent if possible. Prognosis still Guarded due to her Covid 19. Check CBC and CMP in a.m.
--- NOTE | 2020-03-28 16:42 | IR ---
EXAMINATION TYPE: IR cvc insert >=5 years DATE OF EXAM: 03/28/2020 COMPARISON: NONE HISTORY: Covid pneumonia, needs long-term intravenous access for therapy FINDINGS: Maximal barrier technique was utilized. Hand hygiene obtained with soap and water and alco hol-based hand rub. The skin overlying the right brachial vein was localized with ultrasound and note d to be compressible and patent by ultrasound. An ultrasound image was obtained and submitted on pat ient's chart. Sterile technique utilized with the ultrasound machine. The skin overlying was prepped and draped and Lidocaine used for local anesthesia. A skin rohini was made with a scalpel. Access was gained to the vein under direct ultrasound guidance with a 21-gauge needle and a 0.018 inch wire was advanced. Access site was dilated with a peel-away sheath and the catheter tailored to length. Cat heter advanced centrally and a post procedure chest x-ray verified placement the tip near the cavoatr ial junction. Catheter was fixed to the skin and a sterile dressing placed. Hemostasis achieved and the catheter was aspirated and flushed with sterile saline. The patient remained in stable conditio n. IMPRESSION: STATUS POST ULTRASOUND GUIDED PICC LINE PLACEMENT, READY FOR USE. THIS PROCEDURE WAS PER FORMED BY THE UNDERSIGNED.
[2020-03-28 20:29] LABS: Glucose,Whole Blood 216 mg/dL (75-99)
--- NOTE | 2020-03-28 22:12 | PN ---
PROGRESS NOTE DATE OF SERVICE: 03/28/2020 REASON FOR FOLLOWUP: Pneumonia. INTERVAL HISTORY: The patient is currently afebrile. The patient remains intubated on the vent. The patient is hemodynamically stable, not on any pressor support. FiO2 is currently stable at 50%. No significant purulent secretion through the ET or any diarrhea reported by the nursing staff. PHYSICAL EXAMINATION: Blood pressure 152/94 with a pulse of 63, temperature of 98.3. She is 98% on 50% FiO2. General description is an elderly female lying in bed in no distress. RESPIRATORY SYSTEM: Unlabored breathing with decreased intensity of breath sounds. No wheeze. HEART: S1, S2. Regular rate and rhythm. ABDOMEN: Soft. No tenderness. LABS: Hemoglobin is 7.9, white count 12.4. BUN of 51, creatinine is 1.05. Blood culture has been negative. Sputum so far negative for any resistant pathogen. DIAGNOSTIC IMPRESSION AND PLAN: Patient with acute respiratory failure which is likely multifactorial in this patient with recent COVID-19 pneumonia. The patient is currently covered with cefepime, vancomycin in view of elevated procalcitonin; to continue along with Solu-Medrol, zinc and Lovenox. Continue with supportive care. MMODL / IJN: [id number] /
[2020-03-28 23:22] LABS: Glucose,Whole Blood 158 mg/dL (75-99)
[2020-03-29] MEDS: methylPREDNISolone SOD SUCCI 125 MG/2 ML VIAL IV SCH ×4 (00:32→17:29)
[2020-03-29 00:47] LABS: Glucose,Whole Blood 175 mg/dL (75-99)
[2020-03-29] MEDS: INSULIN ASPART (NovoLOG) 100 UNIT/ML VIAL SQ SCH ×6 (00:48→21:00)
[2020-03-29 04:08] LABS: Glucose,Whole Blood 135 mg/dL (75-99)
[2020-03-29] MEDS ORDERED: VANCOMYCIN TROUGH DUE 1 EACH MISC MISCELLANE ONE (05:00)
[2020-03-29 05:18] LABS: ABG Base Excess -2.4 mmol/L; ABG HCO3 22 mmol/L (21-25); ABG Oxygen Saturation 99.2 % (94-97); ABG PCO2 36 mmHg (35-45); ABG PO2 111 mmHg (83-108); ABG TCO2 24 mmol/L (19-24); Allen Test Performed? Yes
[2020-03-29] MEDS: SODIUM CHLORIDE 0.9% 1,000 ML IV SCH ×2 (05:23→11:46)
[2020-03-29 06:54] LABS: Anisocytosis Slight; Basophils # (A) 0.1 k/uL (0-0.2); Basophils % (A) 1 %; Eosinophils % (A) 0 %; HCT 27.9 % (34.0-46.0); HGB 8.5 gm/dL (11.4-16.0); Hypochromasia Marked; Lymphocytes # (A) 0.3 k/uL (1.0-4.8); Lymphocytes % (A) 3 %; MCH 28.4 pg (25.0-35.0); MCHC 30.5 g/dL (31.0-37.0); MCV 93.2 fL (80.0-100.0); Mean Platelet Volume 8.8; Monocytes # (A) 0.3 k/uL (0-1.0); Monocytes % (A) 2 %; Neutrophils # (A) 11.1 k/uL (1.3-7.7); Neutrophils % (A) 94 %; Platelet Count 222 k/uL (150-450); Poikilocytosis Moderate; RDW 16.6 % (11.5-15.5); WBC 11.8 k/uL (3.8-10.6)
[2020-03-29 07:14] LABS: Albumin 2.1 g/dL (3.5-5.0); Calcium 6.8 mg/dL (8.4-10.2); Potassium 4.7 mmol/L (3.5-5.1); Total Bilirubin 0.5 mg/dL (0.2-1.3)
[2020-03-29 08:09] LABS: C Reactive Protein 46.1 mg/L (<10.0)
[2020-03-29] MEDS: CHOLECALCIFEROL 400 UNIT TAB PO SCH (08:36)
[2020-03-29] MEDS: ZINC SULFATE 220 MG CAP PO SCH (08:36)
[2020-03-29] MEDS: CHLORHEXIDINE GLUCONATE 15 ML CUP MUCOUS MEM SCH ×2 (08:36→20:53)
[2020-03-29] MEDS: ASCORBIC ACID 500 MG TAB PO SCH ×2 (08:36→20:52)
[2020-03-29] MEDS: VANCOMYCIN 1,500 MG in SODIUM CHLORIDE 0.9% 250 ML IVPB SCH ×2 (08:36→21:47)
[2020-03-29] MEDS: PANTOPRAZOLE 40 MG/10 ML VIAL IVP SCH ×2 (08:37→20:53)
[2020-03-29] MEDS: ENOXAPARIN 40 MG/0.4 ML SYRINGE SQ SCH ×2 (08:37→20:53)
[2020-03-29] MEDS: CEFEPIME 2 GM in SODIUM CHLORIDE 0.9% 100 ML IVPB SCH ×2 (08:37→20:52)
[2020-03-29] MEDS: FUROSEMIDE 10 MG/ML 2 ML VIAL IV SCH (08:37)
[2020-03-29 09:27] LABS: Glucose,Whole Blood 181 mg/dL (75-99)
[2020-03-29 11:20] LABS: Glucose,Whole Blood 172 mg/dL (75-99)
--- NOTE | 2020-03-29 11:21 | P.PN ---
Subjective Progress Note Date: 03/29/20 Principal diagnosis: Acute hypoxic respiratory failure Covid19 pneumonia Acute respiratory and metabolic acidosis Acute hepatitis/elevated liver enzymes Acute diastolic heart failure and fluid overload Chronic anemia Fibromyalgia Hypertension hypertensive cardiovascular disease 03/29/2020, patient seen eval examined during the rounds labs reviewed medications reviewed, care plan discussed with the nursing staff at length, patient has been on assist control rate of the 24 PEEP of 8 400 tidal volume 50% oxygen, ventilator has been adjusted with reduction in PEEP and oxygen, patient's saturation remained stable 91-92%, next step he is to stop propofol and reassess the mental status and if patient remains stable oxygen randolph and hemodynamics can do a CPAP pressure support trial in the meantime we'll continue IV steroids, antibiotics, CBC and ABG reviewed, today's chest x-ray showed bilateral interstitial infiltrate, predominantly at the bases, patient has been on Lasix 20 mg daily diuresing very well, critical care time 35 minutes 03/28/2020, patient seen eval examined during the rounds labs reviewed medications reviewed care plan discussed oxygen has been down to 40% now. The patient is PEEP of 8, otherwise ventilator setting remains stable, patient is s cheduled for PICC line later on today, remains on propofol, remains on broad- spectrum antibiotics, labs from today has been reviewed hemoglobin is stable 7.9, d-dimer is 3.24, arterial blood gases stable pH is 7.41 pCO2 35 pO2 96, BUN/creatinine is 51 and 1.05, ferritin level remains more than 26,000, AST ALT continued decline however today is 367 and 558, C-reactive protein checked 69.5 her chest x-ray earlier than today remains there however appears to have slightly progressed 03/27/2020, patient seen eval examined during the rounds labs reviewed medications reviewed care plan discussed, propofol has been discontinued patient because very restless and anxious, we'll restart propofol, patient has been on full ventilator support assist control 24 tidal volume of 450, PEEP is 10, oxygen is 70%, arterial blood gases reviewed when lower the FiO2 to 60% now plan to bring down the FiO2 to 50% and PEEP of 8 next 24 hours, sputum and blood cultures reviewed no growth so far, chest x-ray performed today reviewed significant improvement in infiltrates seen bilaterally, patient has a poor ur ine output throughout the night, 20 mg of Lasix was given put out 600 mL of urine patient continued to be on gentle hydration, remain on cefapime and Vanco, Lovenox Solu-Medrol multivitamin and vitamin C zinc and Lovenox, white cell count is stable 10,500 hemoglobin and hematocrit 7.2 and 24, general surgery has been following patient is considered to get EGD and colonoscopy once stable, arterial blood gas revealed pH of 7.39 pCO2 of 39 pO2 of 124, bicarb 25, liver enzymes continue to come down AST and ALT now is 944/809, hepatitis panel normal and nonreactive 03/26/2020, patient seen eval examined in the ICU care plan discussed with the staff, FiO2 has been down to 60%, patient remains on assist control tidal volume of 450, PEEP is 10, respiratory rate is 24 breathing with the respirator pH has been improved significantly, patient is making adequate urine chest x-ray compared with yesterday's x-ray some improvement have been noted, white cell count is 11,000, hemoglobin 7.9 which is stable, arterial blood gas improved to 7.39, pCO2 of 40, pO2 112, BUN/creatinine is 33/0.96, lactic acid was 5.9 down to 1.3 now, ferritin level noted to be 12,800, AST and ALT are 4014 100 with LDH over 21,500, today LFTs significantly improved AST is down to 2795 and ALT is 1222, pro calcitonin is 0.84, suspect some component of heart failure as well as pneumonia, will get an echocardiogram as well as start patient on broad-spectrum antibiotics with cefepime and Vanco Patient seen and evaluated examined in the emergency department, patient came into the ER from the office of Dr. Aleman due to progressive shortness of breath, patient has acute on chronic hypoxic respiratory failure on 4 L oxygen, also has issues associated with pneumonia presumed to be cold with 19, however, testing was negative, patient used to smoke in the remote past quit about 20-30 years ago due to severity or shortness of breath and hypoxia with saturation of 76% on 100% oxygen and respiratory distress patient was intubated due to poor tolerance on BiPAP, patient Covid testing came back positive, chest x-ray showing diffuse infiltrate she also has been noted to have elevated liver enzymes due to elevated liver enzymes will not start IV REMdesivir, Initial ABG pH is 7.18, pCO2 is 63 pO2 was only 33 Objective - Vital Signs Vital signs: Vital Signs Temp 98 F 03/29/20 08:00 Pulse 66 03/29/20 10:00 Resp 24 03/29/20 10:00 BP 168/83 03/29/20 10:00 Pulse Ox 95 03/29/20 10:00 Intake & Output 03/28/20 03/29/20 03/29/20 18:59 06:59 18:59 Intake Total 0019.075 2345 50 Output Total 2496 685 30 Balance -819.654 345 20 Weight 80.9 kg 80.8 kg Intake: IV 1250 750 50 0.9 NaCl- 900 650 50 Vancomycin 1,500 mg In 250 Sodium Chloride 0.9% 250 ml @ 125 mls/hr IVPB Q16H [facility] Rx#:[id number] cefepime 100 100 Intake, IV Titration 196.346 100 Amount propofoL 1,000 mg In 196.346 100 Empty Bag 1 bag @ Titrate IV .Q0M NONA Rx#: [id number] Tube Feeding 120 120 Other 110 60 Output: Urine 2496 685 30 Other: Voiding Method Indwelling Catheter Indwelling Catheter Indwelling Catheter # Bowel Movements 0 - Exam Intubated sedated with propofol - Constitutional General appearance: average body habitus, mild distress - EENT Ears: bilateral: normal - Neck Carotids: bilateral: upstroke normal Thyroid: bilateral: normal size - Respiratory Respiratory: bilateral: diminished - Cardiovascular Rhythm: regular Heart sounds: normal: S1, S2 - Gastrointestinal General gastrointestinal: normal bowel sounds Sedated with propofol on full ventilator support with 40 % oxygen and assist control mode - Labs CBC & Chem 7: 03/29/20 06:20 03/29/20 06:00 Labs: Abnormal Lab Results - Last 24 Hours (Table) 03/28/20 03/28/20 03/28/20 Range/Units 11:39 16:06 20:27 WBC (3.8-10.6) k/uL RBC (3.80-5.40) m/uL Hgb (11.4-16.0) gm/dL Hct (34.0-46.0) % MCHC (31.0-37.0) g/dL RDW (11.5-15.5) % Neutrophils # (1.3-7.7) k/uL Lymphocytes # (1.0-4.8) k/uL ABG pO2 (83-108) mmHg ABG O2 Saturation (94-97) % Chloride (98-107) mmol/L BUN (7-17) mg/dL Glucose (74-99) mg/dL POC Glucose (mg/dL) 184 H 204 H 216 H (75-99) mg/dL Calcium (8.4-10.2) mg/dL AST (14-36) U/L ALT (4-34) U/L Creatine Kinase (30-135) U/L C-Reactive Protein (<10.0) mg/L Total Protein (6.3-8.2) g/dL Albumin (3.5-5.0) g/dL 03/28/20 03/29/20 03/29/20 Range/Units 23:21 00:46 04:07 WBC (3.8-10.6) k/uL RBC (3.80-5.40) m/uL Hgb (11.4-16.0) gm/dL Hct (34.0-46.0) % MCHC (31.0-37.0) g/dL RDW (11.5-15.5) % Neutrophils # (1.3-7.7) k/uL Lymphocytes # (1.0-4.8) k/uL ABG pO2 (83-108) mmHg ABG O2 Saturation (94-97) % Chloride (98-107) mmol/L BUN (7-17) mg/dL Glucose (74-99) mg/dL POC Glucose (mg/dL) 158 H 175 H 135 H (75-99) mg/dL Calcium (8.4-10.2) mg/dL AST (14-36) U/L ALT (4-34) U/L Creatine Kinase (30-135) U/L C-Reactive Protein (<10.0) mg/L Total Protein (6.3-8.2) g/dL Albumin (3.5-5.0) g/dL 03/29/20 03/29/20 03/29/20 Range/Units 05:15 06:00 06:20 WBC 11.8 H (3.8-10.6) k/uL RBC 3.00 L (3.80-5.40) m/uL Hgb 8.5 L (11.4-16.0) gm/dL Hct 27.9 L (34.0-46.0) % MCHC 30.5 L (31.0-37.0) g/dL RDW 16.6 H (11.5-15.5) % Neutrophils # 11.1 H (1.3-7.7) k/uL Lymphocytes # 0.3 L (1.0-4.8) k/uL ABG pO2 111 H (83-108) mmHg ABG O2 Saturation 99.2 H (94-97) % Chloride 118 H (98-107) mmol/L BUN 43 H (7-17) mg/dL Glucose 156 H (74-99) mg/dL POC Glucose (mg/dL) (75-99) mg/dL Calcium 6.8 L (8.4-10.2) mg/dL AST 134 H (14-36) U/L ALT 390 H (4-34) U/L Creatine Kinase 29 L (30-135) U/L C-Reactive Protein 46.1 H (<10.0) mg/L Total Protein 5.0 L (6.3-8.2) g/dL Albumin 2.1 L (3.5-5.0) g/dL 03/29/20 Range/Units 09:25 WBC (3.8-10.6) k/uL RBC (3.80-5.40) m/uL Hgb (11.4-16.0) gm/dL Hct (34.0-46.0) % MCHC (31.0-37.0) g/dL RDW (11.5-15.5) % Neutrophils # (1.3-7.7) k/uL Lymphocytes # (1.0-4.8) k/uL ABG pO2 (83-108) mmHg ABG O2 Saturation (94-97) % Chloride (98-107) mmol/L BUN (7-17) mg/dL Glucose (74-99) mg/dL POC Glucose (mg/dL) 181 H (75-99) mg/dL Calcium (8.4-10.2) mg/dL AST (14-36) U/L ALT (4-34) U/L Creatine Kinase (30-135) U/L C-Reactive Protein (<10.0) mg/L Total Protein (6.3-8.2) g/dL Albumin (3.5-5.0) g/dL Microbiology - Last 24 Hours (Table) 03/25/20 11:58 Blood Culture - Preliminary Blood No Growth after 72 hours 03/26/20 04:02 Gram Stain - Final Sputum Sputum Culture - Final Assessment and Plan Assessment: Acute hypoxic respiratory failure Covid19 pneumonia Acute pneumonia bacterial bilateral healthcare associated Acute respiratory and metabolic acidosis Acute hepatitis/elevated liver enzymes Acute diastolic heart failure Chronic anemia Fibromyalgia Hypertension hypertensive cardiovascular disease Plan: Continue gentle diuresis Ventilator support adjustment of ventilator as per clinical response and arterial blood gases, will attempt weaning trial starting later on today if remains stable IV antibiotics broad-spectrum IV Lasix 20 mg daily keep on negative side Sputum culture and blood culture Enteral nutrition via tube feeding Trend liver enzymes Patient is not a candidate for IV REMdesivir IV steroids Further recommendations pending plan of care as per clinical response of patient Time with Patient: Greater than 30
--- NOTE | 2020-03-29 12:10 | P.PN ---
Progress Note - Text Progress Note Date: 03/29/20 Patient is stable. Hemoglobin is 8.5. Dr. Luu to perform upper and lower endoscopy next week.
--- NOTE | 2020-03-29 12:40 | XR ---
EXAMINATION TYPE: XR chest 1V portable DATE OF EXAM: 03/29/2020 COMPARISON: 03/28/2020 INDICATION: Covid TECHNIQUE: Single frontal view of the chest is obtained. FINDINGS: The heart size is normal. The pulmonary vasculature is trauma. Diffuse increased lung markings are present bilaterally. Findings appear to be worsening over the int erval Endotracheal tube tip is above the allison. Nasogastric tube positioning is stable likely chronic with in a hiatal hernia. Right PICC line is present with tip in the proximal right atrium. IMPRESSION: 1. Worsening bilateral lung infiltrates. 2. Stable lines and catheters
--- NOTE | 2020-03-29 12:54 | P.PN ---
<Leisa Hargrove - Last Filed: 03/29/20 12:43> Subjective Progress Note Date: 03/29/20 This is a 69-year-old female who was recently admitted for respiratory failure related to Covid 19 pneumonia and is a patient of Dr. Aleman. Patient currently remains in the ICU intubated and sedated. Patient apparently has had some rectal bleeding and surgery is following and recommending EGD and colonoscopy sometime next week once more stable. Current hemoglobin today is 8.5. Pulmonary Dr. Steiner also following. Attempts at weaning were done by nursing staff although patient did not tolerate and patient will continue with same settings at this time. Patient is maintained on IV cefepime along with vancomycin and will continue at this time. To continue with IV steroids, Lovenox, vitamin C and D, and zinc supplements. Patient is maintained on IV Lasix 20 mg daily and diuresing well. Review of systems: Unable to obtain as patient is currently intubated and sedated. Objective - Vital Signs Vital signs: Vital Signs Temp 98 F 03/29/20 08:00 Pulse 66 03/29/20 10:00 Resp 24 03/29/20 10:00 BP 168/83 03/29/20 10:00 Pulse Ox 95 03/29/20 10:00 Intake & Output 03/28/20 03/29/20 03/29/20 18:59 06:59 18:59 Intake Total 8059.191 6305 50 Output Total 2496 685 30 Balance -819.654 345 20 Weight 80.9 kg 80.8 kg Intake: IV 1250 750 50 0.9 NaCl- 900 650 50 Vancomycin 1,500 mg In 250 Sodium Chloride 0.9% 250 ml @ 125 mls/hr IVPB Q16H [facility] Rx#:[id number] cefepime 100 100 Intake, IV Titration 196.346 100 Amount propofoL 1,000 mg In 196.346 100 Empty Bag 1 bag @ Titrate IV .Q0M [facility] Rx#: [id number] Tube Feeding 120 120 Other 110 60 Output: Urine 2496 685 30 Other: Voiding Method Indwelling Catheter Indwelling Catheter Indwelling Catheter # Bowel Movements 0 - Exam Gen: This is a 69-year-old female currently intubated and sedated in the ICU. Well-developed, well-nourished. HEENT: Head is atraumatic, normocephalic. Pupils equal, round. Sclerae is anicteric. NECK: Supple. No JVD. No lymphadenopathy. No thyromegaly. LUNGS: Diminished breath sounds bilaterally. No wheezes or rhonchi. No intercostal retractions. HEART: Regular rate and rhythm. No murmur. ABDOMEN: Soft. Bowel sounds are present. No masses. No tenderness. EXTREMITIES: No pedal edema. No calf tenderness. NEUROLOGICAL: Patient is currently intubated and sedated Skin: No rashes or lesions noted - Labs CBC & Chem 7: 03/29/20 06:20 03/29/20 06:00 Labs: Abnormal Lab Results - Last 24 Hours (Table) 03/28/20 03/28/20 03/28/20 Range/Units 11:39 16:06 20:27 WBC (3.8-10.6) k/uL RBC (3.80-5.40) m/uL Hgb (11.4-16.0) gm/dL Hct (34.0-46.0) % MCHC (31.0-37.0) g/dL RDW (11.5-15.5) % Neutrophils # (1.3-7.7) k/uL Lymphocytes # (1.0-4.8) k/uL ABG pO2 (83-108) mmHg ABG O2 Saturation (94-97) % Chloride (98-107) mmol/L BUN (7-17) mg/dL Glucose (74-99) mg/dL POC Glucose (mg/dL) 184 H 204 H 216 H (75-99) mg/dL Calcium (8.4-10.2) mg/dL AST (14-36) U/L ALT (4-34) U/L Creatine Kinase (30-135) U/L C-Reactive Protein (<10.0) mg/L Total Protein (6.3-8.2) g/dL Albumin (3.5-5.0) g/dL 03/28/20 03/29/20 03/29/20 Range/Units 23:21 00:46 04:07 WBC (3.8-10.6) k/uL RBC (3.80-5.40) m/uL Hgb (11.4-16.0) gm/dL Hct (34.0-46.0) % MCHC (31.0-37.0) g/dL RDW (11.5-15.5) % Neutrophils # (1.3-7.7) k/uL Lymphocytes # (1.0-4.8) k/uL ABG pO2 (83-108) mmHg ABG O2 Saturation (94-97) % Chloride (98-107) mmol/L BUN (7-17) mg/dL Glucose (74-99) mg/dL POC Glucose (mg/dL) 158 H 175 H 135 H (75-99) mg/dL Calcium (8.4-10.2) mg/dL AST (14-36) U/L ALT (4-34) U/L Creatine Kinase (30-135) U/L C-Reactive Protein (<10.0) mg/L Total Protein (6.3-8.2) g/dL Albumin (3.5-5.0) g/dL 03/29/20 03/29/20 03/29/20 Range/Units 05:15 06:00 06:20 WBC 11.8 H (3.8-10.6) k/uL RBC 3.00 L (3.80-5.40) m/uL Hgb 8.5 L (11.4-16.0) gm/dL Hct 27.9 L (34.0-46.0) % MCHC 30.5 L (31.0-37.0) g/dL RDW 16.6 H (11.5-15.5) % Neutrophils # 11.1 H (1.3-7.7) k/uL Lymphocytes # 0.3 L (1.0-4.8) k/uL ABG pO2 111 H (83-108) mmHg ABG O2 Saturation 99.2 H (94-97) % Chloride 118 H (98-107) mmol/L BUN 43 H (7-17) mg/dL Glucose 156 H (74-99) mg/dL POC Glucose (mg/dL) (75-99) mg/dL Calcium 6.8 L (8.4-10.2) mg/dL AST 134 H (14-36) U/L ALT 390 H (4-34) U/L Creatine Kinase 29 L (30-135) U/L C-Reactive Protein 46.1 H (<10.0) mg/L Total Protein 5.0 L (6.3-8.2) g/dL Albumin 2.1 L (3.5-5.0) g/dL 03/29/20 03/29/20 Range/Units 09:25 11:19 WBC (3.8-10.6) k/uL RBC (3.80-5.40) m/uL Hgb (11.4-16.0) gm/dL Hct (34.0-46.0) % MCHC (31.0-37.0) g/dL RDW (11.5-15.5) % Neutrophils # (1.3-7.7) k/uL Lymphocytes # (1.0-4.8) k/uL ABG pO2 (83-108) mmHg ABG O2 Saturation (94-97) % Chloride (98-107) mmol/L BUN (7-17) mg/dL Glucose (74-99) mg/dL POC Glucose (mg/dL) 181 H 172 H (75-99) mg/dL Calcium (8.4-10.2) mg/dL AST (14-36) U/L ALT (4-34) U/L Creatine Kinase (30-135) U/L C-Reactive Protein (<10.0) mg/L Total Protein (6.3-8.2) g/dL Albumin (3.5-5.0) g/dL Microbiology - Last 24 Hours (Table) 03/25/20 11:58 Blood Culture - Preliminary Blood No Growth after 72 hours 03/26/20 04:02 Gram Stain - Final Sputum Sputum Culture - Final Assessment and Plan Assessment: Acute respiratory distress syndrome, Covid 19 pneumonia Acute hypoxic respiratory failure secondary to Covid 19 pneumonia, requiring mechanical ventilation Acute hepatitis with elevated liver enzymes, possibly secondary to large gallstone is noted on ultrasound Acute GI bleed Fibromyalgia Acute on chronic blood loss anemia Hypertension GI prophylaxis DVT prophylaxis Full code Plan: Continue with current medications, current medical management. Patient remains in the ICU and will continue with close monitoring. Multiple medical Consult ations following. Continuing to wean FiO2 as tolerated. Will repeat a.m. labs and monitor hemoglobin closely. Surgery following and planning to undergo EGD and colonoscopy next week once more stable. Prognosis is guarded. Further recommendations to follow based on the clinical course of the patient. Time with Patient: Greater than 30 <Edy Bocanegra E - Last Filed: 03/30/20 01:22> Subjective I have discussed the plan and I have reviewed the notes with ARAM De La Fuente and I agree with it except was mentioned below Patient is seen and examined by me at bedside Patient has been evaluated by GI team for elevated liver enzymes, hepatitis panel is negative. Ultrasound of the abdomen showing cholelithiasis and possible hemangioma versus mass, which is unlikely in the absence of cirrhosis and alpha-fetoprotein is normal, GI team actually signed off. Surgery team on the case for lower GI bleed and the planned for today and EGD and colonoscopy next week patient intubated in the ICU secondary to call with with Dr. Steiner is following closely as well as infectious disease team Objective - Vital Signs Vital signs: Vital Signs Temp 97.7 F 03/29/20 20:00 Pulse 60 03/29/20 23:00 Resp 24 03/29/20 23:00 BP 158/82 03/29/20 23:00 Pulse Ox 94 L 03/29/20 23:00 Intake & Output 03/29/20 03/29/20 03/30/20 06:59 18:59 06:59 Intake Total 1130 1580 787.568 Output Total 685 2285 225 Balance 445 -705 562.568 Weight 80.8 kg Intake: IV 750 1300 650 0.9 NaCl- 650 950 300 Cefepime 2 gm In Sodium 100 100 Chloride 0.9% 100 ml @ 25 mls/hr IVPB Q12HR [facility] Rx #:[id number] Vancomycin 1,500 mg In 250 250 Sodium Chloride 0.9% 250 ml @ 125 mls/hr IVPB Q16H [facility] Rx#:[id number] cefepime 100 Intake, IV Titration 200 100 77.568 Amount propofoL 1,000 mg In 200 100 77.568 Empty Bag 1 bag @ Titrate IV .Q0M [facility] Rx#: [id number] Tube Feeding 120 120 40 Other 60 60 20 Output: Urine 685 2285 225 Other: Voiding Method Indwelling Catheter Indwelling Catheter Indwelling Catheter - Labs CBC & Chem 7: 03/29/20 06:20 03/29/20 06:00 Labs: Abnormal Lab Results - Last 24 Hours (Table) 03/29/20 03/29/20 03/29/20 Range/Units 04:07 05:15 06:00 WBC (3.8-10.6) k/uL RBC (3.80-5.40) m/uL Hgb (11.4-16.0) gm/dL Hct (34.0-46.0) % MCHC (31.0-37.0) g/dL RDW (11.5-15.5) % Neutrophils # (1.3-7.7) k/uL Lymphocytes # (1.0-4.8) k/uL ABG pO2 111 H (83-108) mmHg ABG O2 Saturation 99.2 H (94-97) % Chloride 118 H (98-107) mmol/L BUN 43 H (7-17) mg/dL Glucose 156 H (74-99) mg/dL POC Glucose (mg/dL) 135 H (75-99) mg/dL Calcium 6.8 L (8.4-10.2) mg/dL AST 134 H (14-36) U/L ALT 390 H (4-34) U/L Creatine Kinase 29 L (30-135) U/L C-Reactive Protein 46.1 H (<10.0) mg/L Total Protein 5.0 L (6.3-8.2) g/dL Albumin 2.1 L (3.5-5.0) g/dL 03/29/20 03/29/20 03/29/20 Range/Units 06:20 09:25 11:19 WBC 11.8 H (3.8-10.6) k/uL RBC 3.00 L (3.80-5.40) m/uL Hgb 8.5 L (11.4-16.0) gm/dL Hct 27.9 L (34.0-46.0) % MCHC 30.5 L (31.0-37.0) g/dL RDW 16.6 H (11.5-15.5) % Neutrophils # 11.1 H (1.3-7.7) k/uL Lymphocytes # 0.3 L (1.0-4.8) k/uL ABG pO2 (83-108) mmHg ABG O2 Saturation (94-97) % Chloride (98-107) mmol/L BUN (7-17) mg/dL Glucose (74-99) mg/dL POC Glucose (mg/dL) 181 H 172 H (75-99) mg/dL Calcium (8.4-10.2) mg/dL AST (14-36) U/L ALT (4-34) U/L Creatine Kinase (30-135) U/L C-Reactive Protein (<10.0) mg/L Total Protein (6.3-8.2) g/dL Albumin (3.5-5.0) g/dL 03/29/20 03/29/20 03/30/20 Range/Units 15:19 20:57 00:18 WBC (3.8-10.6) k/uL RBC (3.80-5.40) m/uL Hgb (11.4-16.0) gm/dL Hct (34.0-46.0) % MCHC (31.0-37.0) g/dL RDW (11.5-15.5) % Neutrophils # (1.3-7.7) k/uL Lymphocytes # (1.0-4.8) k/uL ABG pO2 (83-108) mmHg ABG O2 Saturation (94-97) % Chloride (98-107) mmol/L BUN (7-17) mg/dL Glucose (74-99) mg/dL POC Glucose (mg/dL) 135 H 162 H 135 H (75-99) mg/dL Calcium (8.4-10.2) mg/dL AST (14-36) U/L ALT (4-34) U/L Creatine Kinase (30-135) U/L C-Reactive Protein (<10.0) mg/L Total Protein (6.3-8.2) g/dL Albumin (3.5-5.0) g/dL Microbiology - Last 24 Hours (Table) 03/25/20 11:58 Blood Culture - Preliminary Blood No Growth after 96 hours
[2020-03-29 15:22] LABS: Glucose,Whole Blood 135 mg/dL (75-99)
[2020-03-29] MEDS: hydrALAZINE HCL 20 MG/ML 1 ML VIAL IVP PRN (17:30)
[2020-03-29] MEDS: HYDROmorphone 1 MG/ML 1 ML SYRINGE IVP PRN (18:26)
[2020-03-29 20:59] LABS: Glucose,Whole Blood 162 mg/dL (75-99)
--- NOTE | 2020-03-29 22:24 | PN ---
PROGRESS NOTE DATE OF SERVICE: 03/29/2020 REASON FOR FOLLOWUP: Pneumonia. INTERVAL HISTORY: The patient is afebrile. The patient remains to be intubated on the vent. The patient is hemodynamically stable on pressor support. No significant purulent secretion through the ET or any diarrhea reported by nursing staff. PHYSICAL EXAMINATION: Blood pressure 118/84, pulse of 75, temperature 98.3. She is 91% on 40% FiO2. General description is an elderly female lying in bed in no distress. Respiratory system: Unlabored breathing, clear to auscultation anteriorly. No wheeze or crackle. Heart S1, S2. Regular rate and rhythm. Abdomen soft, no tenderness. LAB: Hemoglobin 8.5, white count 11.8. Blood and sputum have been negative so far. DIAGNOSTIC IMPRESSION AND PLAN: Patient with acute respiratory failure which is likely multifactorial in this patient with possible component of pneumonia worsening on chest x-ray. Sputum remains negative for any resistant pathogen. Patient is currently covered with Lovenox, Solu- Medrol, zinc. Cultures negative for MRSA, vancomycin will be discontinued and we will monitor clinical course closely. MMODL / IJN: [id number] / HÉCTOR
[2020-03-30] MEDS: methylPREDNISolone SOD SUCCI 125 MG/2 ML VIAL IV SCH ×5 (00:10→23:08)
[2020-03-30 00:20] LABS: Glucose,Whole Blood 135 mg/dL (75-99)
[2020-03-30] MEDS: INSULIN ASPART (NovoLOG) 100 UNIT/ML VIAL SQ SCH ×6 (00:28→20:16)
[2020-03-30 04:15] LABS: Glucose,Whole Blood 157 mg/dL (75-99)
[2020-03-30] MEDS: HYDROmorphone 1 MG/ML 1 ML SYRINGE IVP PRN ×3 (04:27→21:19)
[2020-03-30 05:28] LABS: ABG Base Excess -2.4 mmol/L; ABG HCO3 22 mmol/L (21-25); ABG Oxygen Saturation 92.2 % (94-97); ABG PCO2 34 mmHg (35-45); ABG PH 7.42 (7.35-7.45); ABG PO2 62 mmHg (83-108); ABG TCO2 23 mmol/L (19-24); Allen Test Performed? Yes
[2020-03-30] MEDS: SODIUM CHLORIDE 0.9% 1,000 ML IV SCH ×3 (06:05→23:08)
[2020-03-30 06:20] LABS: Anisocytosis Slight; Basophils % (A) 0 %; Eosinophils # (A) 0.1 k/uL (0-0.7); Eosinophils % (A) 1 %; HCT 28.9 % (34.0-46.0); HGB 8.6 gm/dL (11.4-16.0); Hypochromasia Marked; Lymphocytes # (A) 0.4 k/uL (1.0-4.8); Lymphocytes % (A) 3 %; MCH 27.1 pg (25.0-35.0); MCHC 29.9 g/dL (31.0-37.0); MCV 90.6 fL (80.0-100.0); Mean Platelet Volume 9.3; Monocytes # (A) 0.3 k/uL (0-1.0); Monocytes % (A) 3 %; Neutrophils # (A) 9.9 k/uL (1.3-7.7); Neutrophils % (A) 93 %; Poikilocytosis Marked; RBC 3.19 m/uL (3.80-5.40); RDW 16.8 % (11.5-15.5); WBC 10.7 k/uL (3.8-10.6)
[2020-03-30 06:25] LABS: Platelet Count 103 k/uL (150-450)
[2020-03-30 06:30] LABS: ALT 258 U/L (4-34); AST 72 U/L (14-36); African American GFR (CKD) >90 (>60 ml/min/1.73 sqM); Alkaline Phosphatase 98 U/L (38-126); Anion Gap 3 mmol/L; Blood Urea Nitrogen 36 mg/dL (7-17); Calcium 6.7 mg/dL (8.4-10.2); Carbon Dioxide 21 mmol/L (22-30); Chloride 118 mmol/L (98-107); Creatine Kinase 30 U/L (30-135); Glucose 166 mg/dL (74-99); Non-African American GFR(CKD) >90 (>60 ml/min/1.73 sqM); Potassium 4.4 mmol/L (3.5-5.1); Sodium 142 mmol/L (137-145); Total Bilirubin 0.6 mg/dL (0.2-1.3); Total Protein 4.9 g/dL (6.3-8.2)
[2020-03-30 06:46] LABS: C Reactive Protein 41.8 mg/L (<10.0)
--- NOTE | 2020-03-30 08:02 | XR ---
EXAMINATION TYPE: XR chest 1V portable DATE OF EXAM: 03/30/2020 COMPARISON: 03/29/2020 INDICATION: Covid TECHNIQUE: Single frontal view of the chest is obtained. FINDINGS: The heart size is normal. The pulmonary vasculature is prominent. Diffuse patchy infiltrates are present bilaterally Endotracheal tube tip is above the allison. Nasogastric tube curled within the retrocardiac region may be within a hiatal hernia. IMPRESSION: 1. Diffuse increased lung markings bilaterally can be compatible with atypical pneumonia.
[2020-03-30] MEDS: PANTOPRAZOLE 40 MG/10 ML VIAL IVP SCH ×2 (10:02→20:18)
[2020-03-30] MEDS: CEFEPIME 2 GM in SODIUM CHLORIDE 0.9% 100 ML IVPB SCH ×2 (10:02→20:17)
[2020-03-30] MEDS: CHLORHEXIDINE GLUCONATE 15 ML CUP MUCOUS MEM SCH ×2 (10:02→20:17)
[2020-03-30] MEDS: ZINC SULFATE 220 MG CAP PO SCH (10:03)
[2020-03-30] MEDS: ENOXAPARIN 40 MG/0.4 ML SYRINGE SQ SCH ×2 (10:03→20:18)
[2020-03-30] MEDS: FUROSEMIDE 10 MG/ML 2 ML VIAL IV SCH (10:03)
[2020-03-30] MEDS: ASCORBIC ACID 500 MG TAB PO SCH ×2 (10:03→20:17)
[2020-03-30] MEDS: CHOLECALCIFEROL 400 UNIT TAB PO SCH (10:03)
--- NOTE | 2020-03-30 11:16 | P.PN ---
Subjective Progress Note Date: 03/30/20 (Critical care time 35 minutes) Principal diagnosis: Acute hypoxic respiratory failure Covid19 pneumonia Acute respiratory and metabolic acidosis Acute hepatitis/elevated liver enzymes Acute diastolic heart failure and fluid overload Chronic anemia Fibromyalgia Hypertension hypertensive cardiovascular disease 03/30/2020, patient seen eval examined during the rounds labs reviewed medications reviewed, remains sedated with propofol, current vent setting include his control rate of 24 breathing 24 tidal volume is 450, deep is 5 now, FiO2 is 40%, tolerating tube feed very well, chest x-ray reviewed slightly better but stable bilateral infiltrate consistent with atypical pneumonia, patient continued IVs very well with 20 mg Lasix daily, white cell count remained stable, with stable hemoglobin and however decreasing platelet count noted, dear blood gases revealed pH of 7.4 to pCO2 34 pO2 of 62, BUN/creatinine is 36 and 0.62, left he continue show downward trend, inflammatory markers reviewed still elevated but showing a downward trend 03/29/2020, patient seen eval examined during the rounds labs reviewed medications reviewed, care plan discussed with the nursing staff at length, patient has been on assist control rate of the 24 PEEP of 8 400 tidal volume 50% oxygen, ventilator has been adjusted with reduction in PEEP and oxygen, patient's saturation remained stable 91-92%, next step he is to stop propofol and reassess the mental status and if patient remains stable oxygen randolph and hemodynamics can do a CPAP pressure support trial in the meantime we'll continue IV steroids, antibiotics, CBC and ABG reviewed, today's chest x-ray showed bilateral interstitial infiltrate, predominantly at the bases, patient has been on Lasix 20 mg daily diuresing very well, critical care time 35 minutes 03/28/2020, patient seen eval examined during the rounds labs reviewed medications reviewed care plan discussed oxygen has been down to 40% now. The patient is PEEP of 8, otherwise ventilator setting remains stable, patient is scheduled for PICC line later on today, remains on propofol, remains on broad- spectrum antibiotics, labs from today has been reviewed hemoglobin is stable 7.9, d-dimer is 3.24, arterial blood gases stable pH is 7.41 pCO2 35 pO2 96, BU N/creatinine is 51 and 1.05, ferritin level remains more than 26,000, AST ALT continued decline however today is 367 and 558, C-reactive protein checked 69.5 her chest x-ray earlier than today remains there however appears to have slightly progressed 03/27/2020, patient seen eval examined during the rounds labs reviewed medications reviewed care plan discussed, propofol has been discontinued patient because very restless and anxious, we'll restart propofol, patient has been on full ventilator support assist control 24 tidal volume of 450, PEEP is 10, oxygen is 70%, arterial blood gases reviewed when lower the FiO2 to 60% now plan to bring down the FiO2 to 50% and PEEP of 8 next 24 hours, sputum and blood cultures reviewed no growth so far, chest x-ray performed today reviewed significant improvement in infiltrates seen bilaterally, patient has a poor urine output throughout the night, 20 mg of Lasix was given put out 600 mL of urine patient continued to be on gentle hydration, remain on cefapime and Vanco, Lovenox Solu-Medrol multivitamin and vitamin C zinc and Lovenox, white cell count is stable 10,500 hemoglobin and hematocrit 7.2 and 24, general surgery has been following patient is considered to get EGD and colonoscopy once stable, arterial blood gas revealed pH of 7.39 pCO2 of 39 pO2 of 124, bicarb 25, liver enzymes continue to come down AST and ALT now is 944/809, hepatitis panel normal and nonreactive 03/26/2020, patient seen eval examined in the ICU care plan discussed with the staff, FiO2 has been down to 60%, patient remains on assist control tidal volume of 450, PEEP is 10, respiratory rate is 24 breathing with the respirator pH has been improved significantly, patient is making adequate urine chest x-ray compared with yesterday's x-ray some improvement have been noted, white cell count is 11,000, hemoglobin 7.9 which is stable, arterial blood gas improved to 7.39, pCO2 of 40, pO2 112, BUN/creatinine is 33/0.96, lactic acid was 5.9 down to 1.3 now, ferritin level noted to be 12,800, AST and ALT are 4014 100 with LDH over 21,500, today LFTs significantly improved AST is down to 2795 and ALT is 1222, pro calcitonin is 0.84, suspect some component of heart failure as well as pneumonia, will get an echocardiogram as well as start patient on broad-spectrum antibiotics with cefepime and Vanco Patient seen and evaluated examined in the emergency department, patient came into the ER from the office of Dr. Aleman due to progressive shortness of br eath, patient has acute on chronic hypoxic respiratory failure on 4 L oxygen, also has issues associated with pneumonia presumed to be cold with 19, however, testing was negative, patient used to smoke in the remote past quit about 20-30 years ago due to severity or shortness of breath and hypoxia with saturation of 76% on 100% oxygen and respiratory distress patient was intubated due to poor tolerance on BiPAP, patient Covid testing came back positive, chest x-ray showing diffuse infiltrate she also has been noted to have elevated liver enzymes due to elevated liver enzymes will not start IV REMdesivir, Initial ABG pH is 7.18, pCO2 is 63 pO2 was only 33 Objective - Vital Signs Vital signs: Vital Signs Temp 98 F 03/30/20 00:00 Pulse 64 03/30/20 03:00 Resp 24 03/30/20 03:00 BP 168/86 03/30/20 03:00 Pulse Ox 94 L 03/30/20 03:00 Intake & Output 03/29/20 03/30/20 03/30/20 18:59 06:59 18:59 Intake Total 1580 1347.568 810 Output Total 2285 365 140 Balance -705 982.568 670 Intake: IV 1300 1050 750 0.9 NaCl- 950 700 400 Cefepime 2 gm In Sodium 100 100 100 Chloride 0.9% 100 ml @ 25 mls/hr IVPB Q12HR NONA Rx #:[id number] Vancomycin 1,500 mg In 250 250 250 Sodium Chloride 0.9% 250 ml @ 125 mls/hr IVPB Q16H NONA Rx#:[id number] Intake, IV Titration 100 177.568 Amount propofoL 1,000 mg In 100 177.568 Empty Bag 1 bag @ Titrate IV .Q0M NONA Rx#: [id number] Tube Feeding 120 80 40 Other 60 40 20 Output: Urine 2285 365 140 Other: Voiding Method Indwelling Catheter Indwelling Catheter - Exam Intubated sedated with propofol - Constitutional General appearance: average body habitus, mild distress - EENT Ears: bilateral: normal - Neck Carotids: bilateral: upstroke normal Thyroid: bilateral: normal size - Respiratory Respiratory: bilateral: diminished - Cardiovascular Rhythm: regular Heart sounds: normal: S1, S2 - Gastrointestinal General gastrointestinal: normal bowel sounds Sedated with propofol on full ventilator support with 40 % oxygen and assist control mode - Labs CBC & Chem 7: 03/30/20 05:52 03/30/20 05:52 Labs: Abnormal Lab Results - Last 24 Hours (Table) 03/29/20 03/29/20 03/29/20 Range/Units 11:19 15:19 20:57 WBC (3.8-10.6) k/uL RBC (3.80-5.40) m/uL Hgb (11.4-16.0) gm/dL Hct (34.0-46.0) % MCHC (31.0-37.0) g/dL RDW (11.5-15.5) % Plt Count (150-450) k/uL Neutrophils # (1.3-7.7) k/uL Lymphocytes # (1.0-4.8) k/uL ABG pCO2 (35-45) mmHg ABG pO2 (83-108) mmHg ABG O2 Saturation (94-97) % Chloride (98-107) mmol/L Carbon Dioxide (22-30) mmol/L BUN (7-17) mg/dL Glucose (74-99) mg/dL POC Glucose (mg/dL) 172 H 135 H 162 H (75-99) mg/dL Calcium (8.4-10.2) mg/dL AST (14-36) U/L ALT (4-34) U/L C-Reactive Protein (<10.0) mg/L Total Protein (6.3-8.2) g/dL Albumin (3.5-5.0) g/dL 03/30/20 03/30/20 03/30/20 Range/Units 00:18 04:13 05:25 WBC (3.8-10.6) k/uL RBC (3.80-5.40) m/uL Hgb (11.4-16.0) gm/dL Hct (34.0-46.0) % MCHC (31.0-37.0) g/dL RDW (11.5-15.5) % Plt Count (150-450) k/uL Neutrophils # (1.3-7.7) k/uL Lymphocytes # (1.0-4.8) k/uL ABG pCO2 34 L (35-45) mmHg ABG pO2 62 L (83-108) mmHg ABG O2 Saturation 92.2 L (94-97) % Chloride (98-107) mmol/L Carbon Dioxide (22-30) mmol/L BUN (7-17) mg/dL Glucose (74-99) mg/dL POC Glucose (mg/dL) 135 H 157 H (75-99) mg/dL Calcium (8.4-10.2) mg/dL AST (14-36) U/L ALT (4-34) U/L C-Reactive Protein (<10.0) mg/L Total Protein (6.3-8.2) g/dL Albumin (3.5-5.0) g/dL 03/30/20 03/30/20 Range/Units 05:52 05:52 WBC 10.7 H (3.8-10.6) k/uL RBC 3.19 L (3.80-5.40) m/uL Hgb 8.6 L (11.4-16.0) gm/dL Hct 28.9 L (34.0-46.0) % MCHC 29.9 L (31.0-37.0) g/dL RDW 16.8 H (11.5-15.5) % Plt Count 103 L D (150-450) k/uL Neutrophils # 9.9 H (1.3-7.7) k/uL Lymphocytes # 0.4 L (1.0-4.8) k/uL ABG pCO2 (35-45) mmHg ABG pO2 (83-108) mmHg ABG O2 Saturation (94-97) % Chloride 118 H (98-107) mmol/L Carbon Dioxide 21 L (22-30) mmol/L BUN 36 H (7-17) mg/dL Glucose 166 H (74-99) mg/dL POC Glucose (mg/dL) (75-99) mg/dL Calcium 6.7 L (8.4-10.2) mg/dL AST 72 H (14-36) U/L ALT 258 H (4-34) U/L C-Reactive Protein 41.8 H (<10.0) mg/L Total Protein 4.9 L (6.3-8.2) g/dL Albumin 2.0 L (3.5-5.0) g/dL Microbiology - Last 24 Hours (Table) 03/25/20 11:58 Blood Culture - Preliminary Blood No Growth after 96 hours Assessment and Plan Assessment: Acute hypoxic respiratory failure Covid19 pneumonia Acute pneumonia bacterial bilateral healthcare associated Thrombocytopenia Acute respiratory and metabolic acidosis Acute hepatitis/elevated liver enzymes Acute diastolic heart failure Chronic anemia Fibromyalgia Hypertension hypertensive cardiovascular disease Plan: Continue gentle diuresis Ventilator support adjustment of ventilator as per clinical response and arterial blood gases, will attempt weaning trial starting later on today if remains stable IV antibiotics broad-spectrum IV Lasix 20 mg daily keep on negative side Sputum culture and blood culture Enteral nutrition via tube feeding Trend liver enzymes Patient is not a candidate for IV REMdesivir IV steroids Further recommendations pending plan of care as per clinical response of patient Continue anticoagulation with Lovenox We will hold Propofol today if remains stable consider weaning trial with CPAP and pressure support
--- NOTE | 2020-03-30 11:30 | P.PN ---
Progress Note - Text Progress Note Date: 03/30/20 Patient's hemoglobin is 8.6. She is currently stable. Patient will undergo endoscopy Dr. Henry this week.
[2020-03-30 11:34] LABS: Glucose,Whole Blood 180 mg/dL (75-99)
--- NOTE | 2020-03-30 11:53 | P.PN ---
<Leisa Hargrove - Last Filed: 03/30/20 11:42> Subjective Progress Note Date: 03/30/20 This is a 69-year-old female who was recently admitted for respiratory failure related to Covid 19 pneumonia and is a patient of Dr. Aleman. Patient currently remains in the ICU intubated and sedated. Patient apparently has had some rectal bleeding and surgery is following and recommending EGD and colonoscopy sometime next week once more stable. Current hemoglobin today is 8.5. Pulmonary Dr. Steiner also following. Attempts at weaning were done by nursing staff although patient did not tolerate and patient will continue with same settings at this time. Patient is maintained on IV cefepime along with vancomycin and will continue at this time. To continue with IV steroids, Lovenox, vitamin C and D, and zinc supplements. Patient is maintained on IV Lasix 20 mg daily and diuresing well. 03/30/2020 Patient is seen and evaluated and follow-up continues to remain closely monitored in the ICU. Patient is intubated and sedated although discussion that about sedation vacation in attempting to wean with the possibility of CPAP as patient tolerates. Patient's hemoglobin remained stable at 8.6 today and surgery continues to follow and planning for EGD and colonoscopy sometime this week. GI has seen and evaluated the patient and no further workup at this time. ALT, AST liver functions slowly trending down and will continue to monitor. Patient remains on IV antibiotics in the form of cefepime and vancomycin has been discontinued. Patient to continue with IV steroids along with Lovenox vitamin C and E, and zinc supplements. Patient continues to diurese. Chest x- ray today shows diffuse increased lung markings bilaterally compatible with atypical pneumonia. Dr. Steiner following closely as well. Review of systems: Unable to obtain as patient is currently intubated and sedated. Objective - Vital Signs Vital signs: Vital Signs Temp 98.1 F 03/30/20 07:00 Pulse 68 03/30/20 11:00 Resp 24 03/30/20 11:00 BP 150/86 03/30/20 11:00 Pulse Ox 95 03/30/20 11:00 Intake & Output 03/29/20 03/30/20 03/30/20 18:59 06:59 18:59 Intake Total 1580 1347.568 810 Output Total 2285 365 140 Balance -705 982.568 670 Intake: IV 1300 1050 750 0.9 NaCl- 950 700 400 Cefepime 2 gm In Sodium 100 100 100 Chloride 0.9% 100 ml @ 25 mls/hr IVPB Q12HR NONA Rx #:[id number] Vancomycin 1,500 mg In 250 250 250 Sodium Chloride 0.9% 250 ml @ 125 mls/hr IVPB Q16H NONA Rx#:[id number] Intake, IV Titration 100 177.568 Amount propofoL 1,000 mg In 100 177.568 Empty Bag 1 bag @ Titrate IV .Q0M NONA Rx#: [id number] Tube Feeding 120 80 40 Other 60 40 20 Output: Urine 2285 365 140 Other: Voiding Method Indwelling Catheter Indwelling Catheter - Exam Gen: This is a 69-year-old female currently intubated and sedated in the ICU. Well-developed, well-nourished. HEENT: Head is atraumatic, normocephalic. Pupils equal, round. Sclerae is anicteric. NECK: Supple. No JVD. No lymphadenopathy. No thyromegaly. LUNGS: Diminished breath sounds bilaterally. No wheezes or rhonchi. No intercostal retractions. HEART: Regular rate and rhythm. No murmur. ABDOMEN: Soft. Bowel sounds are present. No masses. No tenderness. EXTREMITIES: No pedal edema. No calf tenderness. Mild edema noted to bilateral upper and lower extremities NEUROLOGICAL: Patient is currently intubated and sedated Skin: No rashes or lesions noted - Labs CBC & Chem 7: 03/30/20 05:52 03/30/20 05:52 Labs: Abnormal Lab Results - Last 24 Hours (Table) 03/29/20 03/29/20 03/30/20 Range/Units 15:19 20:57 00:18 WBC (3.8-10.6) k/uL RBC (3.80-5.40) m/uL Hgb (11.4-16.0) gm/dL Hct (34.0-46.0) % MCHC (31.0-37.0) g/dL RDW (11.5-15.5) % Plt Count (150-450) k/uL Neutrophils # (1.3-7.7) k/uL Lymphocytes # (1.0-4.8) k/uL ABG pCO2 (35-45) mmHg ABG pO2 (83-108) mmHg ABG O2 Saturation (94-97) % Chloride (98-107) mmol/L Carbon Dioxide (22-30) mmol/L BUN (7-17) mg/dL Glucose (74-99) mg/dL POC Glucose (mg/dL) 135 H 162 H 135 H (75-99) mg/dL Calcium (8.4-10.2) mg/dL AST (14-36) U/L ALT (4-34) U/L C-Reactive Protein (<10.0) mg/L Total Protein (6.3-8.2) g/dL Albumin (3.5-5.0) g/dL 03/30/20 03/30/20 03/30/20 Range/Units 04:13 05:25 05:52 WBC 10.7 H (3.8-10.6) k/uL RBC 3.19 L (3.80-5.40) m/uL Hgb 8.6 L (11.4-16.0) gm/dL Hct 28.9 L (34.0-46.0) % MCHC 29.9 L (31.0-37.0) g/dL RDW 16.8 H (11.5-15.5) % Plt Count 103 L D (150-450) k/uL Neutrophils # 9.9 H (1.3-7.7) k/uL Lymphocytes # 0.4 L (1.0-4.8) k/uL ABG pCO2 34 L (35-45) mmHg ABG pO2 62 L (83-108) mmHg ABG O2 Saturation 92.2 L (94-97) % Chloride (98-107) mmol/L Carbon Dioxide (22-30) mmol/L BUN (7-17) mg/dL Glucose (74-99) mg/dL POC Glucose (mg/dL) 157 H (75-99) mg/dL Calcium (8.4-10.2) mg/dL AST (14-36) U/L ALT (4-34) U/L C-Reactive Protein (<10.0) mg/L Total Protein (6.3-8.2) g/dL Albumin (3.5-5.0) g/dL 03/30/20 03/30/20 Range/Units 05:52 11:32 WBC (3.8-10.6) k/uL RBC (3.80-5.40) m/uL Hgb (11.4-16.0) gm/dL Hct (34.0-46.0) % MCHC (31.0-37.0) g/dL RDW (11.5-15.5) % Plt Count (150-450) k/uL Neutrophils # (1.3-7.7) k/uL Lymphocytes # (1.0-4.8) k/uL ABG pCO2 (35-45) mmHg ABG pO2 (83-108) mmHg ABG O2 Saturation (94-97) % Chloride 118 H (98-107) mmol/L Carbon Dioxide 21 L (22-30) mmol/L BUN 36 H (7-17) mg/dL Glucose 166 H (74-99) mg/dL POC Glucose (mg/dL) 180 H (75-99) mg/dL Calcium 6.7 L (8.4-10.2) mg/dL AST 72 H (14-36) U/L ALT 258 H (4-34) U/L C-Reactive Protein 41.8 H (<10.0) mg/L Total Protein 4.9 L (6.3-8.2) g/dL Albumin 2.0 L (3.5-5.0) g/dL Microbiology - Last 24 Hours (Table) 03/25/20 11:58 Blood Culture - Preliminary Blood No Growth after 96 hours Assessment and Plan Assessment: Acute respiratory distress syndrome, Covid 19 pneumonia Acute hypoxic respiratory failure secondary to Covid 19 pneumonia, requiring mechanical ventilation Acute hepatitis with elevated liver enzymes, possibly secondary to large gallstone is noted on ultrasound Acute GI bleed Fibromyalgia Acute on chronic blood loss anemia Hypertension GI prophylaxis DVT prophylaxis Full code Plan: Continue with current medications, current medical management. Patient remains in the ICU and will continue with close monitoring. Multiple medical Consultations following. Continuing to wean FiO2 as tolerated. Possible sedati on vacation with attempts to wean off ventilator if patient tolerates with possible CPAP. Will repeat a.m. labs and monitor hemoglobin closely. Surgery following and planning to undergo EGD and colonoscopy this week. Continue gentle IV diuresis. Prognosis is guarded. Further recommendations to follow based on the clinical course of the patient. Subjective I have discussed the plan and I have reviewed the notes with [employer] SUPERVISOR Leisa and I agree with it except was mentioned below Patient is seen and examined by me at bedside Patient has been evaluated by GI team for elevated liver enzymes, hepatitis panel is negative. Ultrasound of the abdomen showing cholelithiasis and possible hemangioma versus mass, which is unlikely in the absence of cirrhosis and alpha-fetoprotein is normal, GI team actually signed off. Surgery team on the case for lower GI bleed and the planned for today and EGD and colonoscopy next week patient intubated in the ICU secondary to call with with Dr. Steiner is following closely as well as infectious disease team Time with Patient: Greater than 30 <Sheet,Edy E - Last Filed: 03/31/20 03:36> Objective - Vital Signs Vital signs: Vital Signs Temp 97.4 F L 03/30/20 20:00 Pulse 58 L 03/31/20 02:00 Resp 24 03/31/20 02:00 BP 160/85 03/31/20 02:00 Pulse Ox 95 03/31/20 02:00 Intake & Output 03/30/20 03/30/20 03/31/20 06:59 18:59 06:59 Intake Total 8388.972 3855 1118.41 Output Total 365 1815 590 Balance 982.568 -85 528.41 Weight 91.2 kg 91.6 kg Intake: IV 1050 1550 800 0.9 NaCl- 700 1200 800 Cefepime 2 gm In Sodium 100 100 Chloride 0.9% 100 ml @ 25 mls/hr IVPB Q12HR NONA Rx #:[id number] Vancomycin 1,500 mg In 250 250 Sodium Chloride 0.9% 250 ml @ 125 mls/hr IVPB Q16H NONA Rx#:[id number] Intake, IV Titration 177.568 178.41 Amount propofoL 1,000 mg In 177.568 178.41 Empty Bag 1 bag @ Titrate IV .Q0M NONA Rx#: [id number] Tube Feeding 80 120 80 Other 40 60 60 Output: Urine 365 1815 590 Other: Voiding Method Indwelling Catheter Indwelling Catheter Indwelling Catheter - Labs CBC & Chem 7: 03/30/20 05:52 03/30/20 05:52 Labs: Abnormal Lab Results - Last 24 Hours (Table) 03/30/20 03/30/2003/30/20 Range/Units 04:13 05:25 05:52 WBC 10.7 H (3.8-10.6) k/uL RBC 3.19 L (3.80-5.40) m/uL Hgb 8.6 L (11.4-16.0) gm/dL Hct 28.9 L (34.0-46.0) % MCHC 29.9 L (31.0-37.0) g/dL RDW 16.8 H (11.5-15.5) % Plt Count 103 L D (150-450) k/uL Neutrophils # 9.9 H (1.3-7.7) k/uL Lymphocytes # 0.4 L (1.0-4.8) k/uL ABG pCO2 34 L (35-45) mmHg ABG pO2 62 L (83-108) mmHg ABG O2 Saturation 92.2 L (94-97) % Chloride (98-107) mmol/L Carbon Dioxide (22-30) mmol/L BUN (7-17) mg/dL Glucose (74-99) mg/dL POC Glucose (mg/dL) 157 H (75-99) mg/dL Calcium (8.4-10.2) mg/dL AST (14-36) U/L ALT (4-34) U/L C-Reactive Protein (<10.0) mg/L Total Protein (6.3-8.2) g/dL Albumin (3.5-5.0) g/dL 03/30/20 03/30/20 03/30/20 Range/Units 05:52 11:32 16:33 WBC (3.8-10.6) k/uL RBC (3.80-5.40) m/uL Hgb (11.4-16.0) gm/dL Hct (34.0-46.0) % MCHC (31.0-37.0) g/dL RDW (11.5-15.5) % Plt Count (150-450) k/uL Neutrophils # (1.3-7.7) k/uL Lymphocytes # (1.0-4.8) k/uL ABG pCO2 (35-45) mmHg ABG pO2 (83-108) mmHg ABG O2 Saturation (94-97) % Chloride 118 H (98-107) mmol/L Carbon Dioxide 21 L (22-30) mmol/L BUN 36 H (7-17) mg/dL Glucose 166 H (74-99) mg/dL POC Glucose (mg/dL) 180 H 270 H (75-99) mg/dL Calcium 6.7 L (8.4-10.2) mg/dL AST 72 H (14-36) U/L ALT 258 H (4-34) U/L C-Reactive Protein 41.8 H (<10.0) mg/L Total Protein 4.9 L (6.3-8.2) g/dL Albumin 2.0 L (3.5-5.0) g/dL 03/30/20 03/30/20 03/31/20 Range/Units 19:47 23:58 03:07 WBC (3.8-10.6) k/uL RBC (3.80-5.40) m/uL Hgb (11.4-16.0) gm/dL Hct (34.0-46.0) % MCHC (31.0-37.0) g/dL RDW (11.5-15.5) % Plt Count (150-450) k/uL Neutrophils # (1.3-7.7) k/uL Lymphocytes # (1.0-4.8) k/uL ABG pCO2 (35-45) mmHg ABG pO2 (83-108) mmHg ABG O2 Saturation (94-97) % Chloride (98-107) mmol/L Carbon Dioxide (22-30) mmol/L BUN (7-17) mg/dL Glucose (74-99) mg/dL POC Glucose (mg/dL) 210 H 182 H 159 H (75-99) mg/dL Calcium (8.4-10.2) mg/dL AST (14-36) U/L ALT (4-34) U/L C-Reactive Protein (<10.0) mg/L Total Protein (6.3-8.2) g/dL Albumin (3.5-5.0) g/dL Microbiology - Last 24 Hours (Table) 03/25/20 11:58 Blood Culture - Preliminary Blood No Growth after 120 hours Assessment and Plan Assessment: I have discussed the plan and I have reviewed the notes with ARAM De La Fuente and I ag ree with it except was mentioned below Patient is seen and examined by me at bedside 03/30/2020 -Patient with Covid pneumonia and possible bacterial superinfection. Covered with Solu-Medrol, Lovenox and cefepime, also she is an normal saline. Infectious disease team on the case. -Pulmonary/critical care team managing patient critical care and vent management -Patient with bowel stone and possible mass, followed by GI and surgery team, GI team actually signed off. Patient will need close follow-up as an outpatient with GI and surgery upon discharge -Patient with a possible GI bleed, surgery team are planning for EGD/colonoscopy this coming week Prognosis is guarded
[2020-03-30 16:35] LABS: Glucose,Whole Blood 270 mg/dL (75-99)
[2020-03-30 19:50] LABS: Glucose,Whole Blood 210 mg/dL (75-99)
--- NOTE | 2020-03-30 23:42 | PN ---
PROGRESS NOTE DATE OF SERVICE: 03/30/2020 REASON FOR FOLLOWUP: Pneumonia. INTERVAL HISTORY: The patient is currently afebrile. The patient remains to be intubated on the vent. FiO2 is currently at 40%. No significant purulent secretion through the ET or any diarrhea reported by the nursing staff. PHYSICAL EXAMINATION: Blood pressure 157/71 with pulse of 54, temperature 97.7. She is 93% on 40% FiO2. General description is an elderly female lying in bed in no distress. RESPIRATORY SYSTEM: Unlabored breathing, decreased intensity of breath sounds. No wheeze. HEART: S1, S2. Regular rate and rhythm. ABDOMEN: Soft, no tenderness. LABS: Hemoglobin 8.6, white count 10.7, BUN of 36, creatinine 0.62. CRP 41.8. Sputum has been negative. Blood culture negative. DIAGNOSTIC IMPRESSION AND PLAN: Patient with acute respiratory failure which is multifactorial in this patient with recent COVID-19 infection presented with more of a biphasic illness also elevated procalcitonin treated with cefepime. Vancomycin was discontinued yesterday. Sputum has been negative for resistant pathogen. Patient at this time covered with cefepime, Lovenox, Medrol. We will recheck inflammatory markers tomorrow. Continue with supportive care. MMODL / IJN: [id number] /
[2020-03-30 23:59] LABS: Glucose,Whole Blood 182 mg/dL (75-99)
[2020-03-31] MEDS: INSULIN ASPART (NovoLOG) 100 UNIT/ML VIAL SQ SCH ×6 (00:03→20:46)
[2020-03-31 03:08] LABS: Glucose,Whole Blood 159 mg/dL (75-99)
[2020-03-31 05:37] LABS: Anisocytosis Slight; HCT 27.9 % (34.0-46.0); HGB 8.7 gm/dL (11.4-16.0); Hypochromasia Marked; MCH 28.2 pg (25.0-35.0); MCV 90.9 fL (80.0-100.0); Mean Platelet Volume 8.9; Poikilocytosis Moderate; RBC 3.07 m/uL (3.80-5.40); RDW 16.8 % (11.5-15.5); WBC 10.5 k/uL (3.8-10.6)
[2020-03-31 05:40] LABS: Platelet Count 228 k/uL (150-450)
[2020-03-31 05:45] LABS: ALT 199 U/L (4-34); AST 37 U/L (14-36); African American GFR (CKD) >90 (>60 ml/min/1.73 sqM); Albumin 2.1 g/dL (3.5-5.0); Alkaline Phosphatase 104 U/L (38-126); Anion Gap 3 mmol/L; Blood Urea Nitrogen 35 mg/dL (7-17); C Reactive Protein 31.9 mg/L (<10.0); Calcium 6.9 mg/dL (8.4-10.2); Carbon Dioxide 24 mmol/L (22-30); Chloride 115 mmol/L (98-107); Glucose 171 mg/dL (74-99); Non-African American GFR(CKD) >90 (>60 ml/min/1.73 sqM); Potassium 4.2 mmol/L (3.5-5.1); Sodium 142 mmol/L (137-145); Total Bilirubin 0.3 mg/dL (0.2-1.3); Total Protein 4.9 g/dL (6.3-8.2)
[2020-03-31 05:46] LABS: ABG Base Excess -0.5 mmol/L; ABG HCO3 23 mmol/L (21-25); ABG Oxygen Saturation 95.2 % (94-97); ABG PCO2 33 mmHg (35-45); ABG PH 7.46 (7.35-7.45); ABG PO2 73 mmHg (83-108); ABG TCO2 24 mmol/L (19-24); Allen Test Performed? Yes
[2020-03-31] MEDS: methylPREDNISolone SOD SUCCI 125 MG/2 ML VIAL IV SCH ×3 (06:23→17:05)
--- NOTE | 2020-03-31 07:26 | XR ---
EXAMINATION TYPE: XR chest 1V DATE OF EXAM: 03/31/2020 COMPARISON: 03/30/2020 HISTORY: SOB, Follow Up FINDINGS: Indwelling tubes and catheters are unchanged. Diffuse bilateral infiltrates persist without significant interval change. Stable appearance of the cardio-mediastinal structures at this time. IMPRESSION: 1. Stable portable chest. Clinical correlation and follow up until resolution is recommended.
[2020-03-31 08:59] LABS: Glucose,Whole Blood 150 mg/dL (75-99)
[2020-03-31] MEDS: CEFEPIME 2 GM in SODIUM CHLORIDE 0.9% 100 ML IVPB SCH ×2 (09:22→21:16)
[2020-03-31] MEDS: ASCORBIC ACID 500 MG TAB PO SCH ×2 (09:22→21:17)
[2020-03-31] MEDS: ENOXAPARIN 40 MG/0.4 ML SYRINGE SQ SCH ×2 (09:22→21:16)
[2020-03-31] MEDS: FUROSEMIDE 10 MG/ML 2 ML VIAL IV SCH (09:22)
[2020-03-31] MEDS: CHLORHEXIDINE GLUCONATE 15 ML CUP MUCOUS MEM SCH ×2 (09:22→21:17)
[2020-03-31] MEDS: PANTOPRAZOLE 40 MG/10 ML VIAL IVP SCH ×2 (09:23→21:16)
[2020-03-31] MEDS: ZINC SULFATE 220 MG CAP PO SCH (09:23)
[2020-03-31] MEDS: CHOLECALCIFEROL 400 UNIT TAB PO SCH (09:23)
[2020-03-31] MEDS: HYDROmorphone 1 MG/ML 1 ML SYRINGE IVP PRN ×2 (09:24→21:17)
[2020-03-31] MEDS: SODIUM CHLORIDE 0.9% 1,000 ML IV SCH ×3 (09:24→23:46)
--- NOTE | 2020-03-31 10:02 | P.PN ---
<Ana Parks - Last Filed: 03/31/20 09:58> Subjective Progress Note Date: 03/31/20 CHIEF COMPLAINT: GI bleed HISTORY OF PRESENT ILLNESS: Patient is currently hospitalized for respiratory failure and is COVID positive. She is currently in the ICU and intubated. She is being followed for her GI bleed. Nursing reports patient did have a small black bowel movement yesterday. She is tolerating her tube feeds through the NG tube. She is awake today. Patient is to have a weaning trial for the vent today. Afebrile. WBC 10.5 hemoglobin 8.7 AST 37 ALT 199 PHYSICAL EXAM: VITAL SIGNS: Reviewed. GENERAL: Well-developed in no acute distress. HEENT: No sclera icterus. Extraocular movements grossly intact. Moist buccal mucosa. Head is atraumatic, normocephalic. ABDOMEN: Soft. Nondistended. Nontender. NEUROLOGIC: Patient is intubated. She is able to open her eyes and is awake ASSESSMENT: 1. Acute GI bleed 2. Acute on chronic blood loss anemia 3. Elevated liver enzymes with large gallstone present on abdominal ultrasound 4. Acute hypoxic respiratory failure requiring intubation 5. COVID positive PLAN: -Continue supportive care -Continue tube feedings for nutrition support -Continue to monitor hemoglobin -Dr. Henry will proceed with upper and lower endoscopy when stable Physician Stove Fitter note has been reviewed by physician. Signing provider agrees with the documented findings, assessment, and plan of care. Objective - Vital Signs Vital signs: Vital Signs Temp 98.9 F 03/31/20 04:00 Pulse 65 03/31/20 08:00 Resp 27 H 03/31/20 08:00 BP 174/86 03/31/20 08:00 Pulse Ox 95 03/31/20 08:00 Intake & Output 03/30/20 03/31/20 03/31/20 18:59 06:59 18:59 Intake Total 1730 1678.911 138.666 Output Total 1815 835 30 Balance -85 843.911 108.666 Weight 91.6 kg 91.3 kg Intake: IV 1550 1200 100 0.9 NaCl- 1200 1200 100 Cefepime 2 gm In Sodium 100 Chloride 0.9% 100 ml @ 25 mls/hr IVPB Q12HR [facility] Rx #:[id number] Vancomycin 1,500 mg In 250 Sodium Chloride 0.9% 250 ml @ 125 mls/hr IVPB Q16H NON[facility] Rx#:[id number] Intake, IV Titration 268.911 38.666 Amount propofoL 1,000 mg In 268.911 38.666 Empty Bag 1 bag @ Titrate IV .Q0M NONA Rx#: [id number] Tube Feeding 120 120 Other 60 90 Output: Urine 1815 835 30 Other: Voiding Method Indwelling Catheter Indwelling Catheter - Labs CBC & Chem 7: 03/31/20 04:12 03/31/20 04:12 Labs: Abnormal Lab Results - Last 24 Hours (Table) 03/30/20 03/30/20 03/30/20 Range/Units 11:32 16:33 19:47 RBC (3.80-5.40) m/uL Hgb (11.4-16.0) gm/dL Hct (34.0-46.0) % RDW (11.5-15.5) % ABG pH (7.35-7.45) ABG pCO2 (35-45) mmHg ABG pO2 (83-108) mmHg Chloride (98-107) mmol/L BUN (7-17) mg/dL Glucose (74-99) mg/dL POC Glucose (mg/dL) 180 H 270 H 210 H (75-99) mg/dL Calcium (8.4-10.2) mg/dL AST (14-36) U/L ALT (4-34) U/L C-Reactive Protein (<10.0) mg/L Total Protein (6.3-8.2) g/dL Albumin (3.5-5.0) g/dL 03/30/20 03/31/20 03/31/20 Range/Units 23:58 03:07 04:12 RBC 3.07 L (3.80-5.40) m/uL Hgb 8.7 L (11.4-16.0) gm/dL Hct 27.9 L (34.0-46.0) % RDW 16.8 H (11.5-15.5) % ABG pH (7.35-7.45) ABG pCO2 (35-45) mmHg ABG pO2 (83-108) mmHg Chloride (98-107) mmol/L BUN (7-17) mg/dL Glucose (74-99) mg/dL POC Glucose (mg/dL) 182 H 159 H (75-99) mg/dL Calcium (8.4-10.2) mg/dL AST (14-36) U/L ALT (4-34) U/L C-Reactive Protein (<10.0) mg/L Total Protein (6.3-8.2) g/dL Albumin (3.5-5.0) g/dL 03/31/20 03/31/20 03/31/20 Range/Units 04:12 05:42 08:59 RBC (3.80-5.40) m/uL Hgb (11.4-16.0) gm/dL Hct (34.0-46.0) % RDW (11.5-15.5) % ABG pH 7.46 H (7.35-7.45) ABG pCO2 33 L (35-45) mmHg ABG pO2 73 L (83-108) mmHg Chloride 115 H (98-107) mmol/L BUN 35 H (7-17) mg/dL Glucose 171 H (74-99) mg/dL POC Glucose (mg/dL) 150 H (75-99) mg/dL Calcium 6.9 L (8.4-10.2) mg/dL AST 37 H (14-36) U/L ALT 199 H (4-34) U/L C-Reactive Protein 31.9 H (<10.0) mg/L Total Protein 4.9 L (6.3-8.2) g/dL Albumin 2.1 L (3.5-5.0) g/dL Microbiology - Last 24 Hours (Table) 03/25/20 11:58 Blood Culture - Preliminary Blood No Growth after 120 hours <William Henry - Last Filed: 03/31/20 16:41> Subjective As above. Patient with stable hemoglobin. Small bowel movement yesterday that was blackish in color. Continue tube feeds through nasogastric tube. Continue to monitor hemoglobin. Will follow. Objective - Vital Signs Vital signs: Vital Signs Temp 98.9 F 03/31/20 04:00 Pulse 64 03/31/20 15:00 Resp 24 03/31/20 15:00 BP 200/110 03/31/20 15:00 Pulse Ox 90 L 03/31/20 15:00 Intake & Output 03/30/20 03/31/20 03/31/20 18:59 06:59 18:59 Intake Total 1730 1678.911 710.033 Output Total 6931 696 2588 Balance -85 843.911 -744.967 Weight 91.6 kg 91.3 kg Intake: IV 1550 1200 450 0.9 NaCl- 1200 1200 350 Cefepime 2 gm In Sodium 100 100 Chloride 0.9% 100 ml @ 25 mls/hr IVPB Q12HR [facility] Rx #:[id number] Vancomycin 1,500 mg In 250 Sodium Chloride 0.9% 250 ml @ 125 mls/hr IVPB Q16H [facility] Rx#:[id number] Intake, IV Titration 268.911 110.033 Amount Dexmedetomidine/0.9% NaCl 23.434 (Pmx) 400 mcg In Empty Bag 1 bag @ Titrate IV . Q0M [facility] Rx#:[id number] propofoL 1,000 mg In 268.911 86.599 Empty Bag 1 bag @ Titrate IV .Q0M [facility] Rx#: [id number] Tube Feeding 120 120 100 Other 60 90 50 Output: Urine 8272 772 8180 Other: Voiding Method Indwelling Catheter Indwelling Catheter Indwelling Catheter - Labs CBC & Chem 7: 03/31/20 04:12 03/31/20 04:12 Labs: Abnormal Lab Results - Last 24 Hours (Table) 03/30/20 03/30/20 03/31/20 Range/Units 19:47 23:58 03:07 RBC (3.80-5.40) m/uL Hgb (11.4-16.0) gm/dL Hct (34.0-46.0) % RDW (11.5-15.5) % ABG pH (7.35-7.45) ABG pCO2 (35-45) mmHg ABG pO2 (83-108) mmHg Chloride (98-107) mmol/L BUN (7-17) mg/dL Glucose (74-99) mg/dL POC Glucose (mg/dL) 210 H 182 H 159 H (75-99) mg/dL Calcium (8.4-10.2) mg/dL Ferritin (10.0-291.0) ng/mL AST (14-36) U/L ALT (4-34) U/L C-Reactive Protein (<10.0) mg/L Total Protein (6.3-8.2) g/dL Albumin (3.5-5.0) g/dL 03/31/20 03/31/20 03/31/20 Range/Units 04:12 04:12 04:12 RBC 3.07 L (3.80-5.40) m/uL Hgb 8.7 L (11.4-16.0) gm/dL Hct 27.9 L (34.0-46.0) % RDW 16.8 H (11.5-15.5) % ABG pH (7.35-7.45) ABG pCO2 (35-45) mmHg ABG pO2 (83-108) mmHg Chloride 115 H (98-107) mmol/L BUN 35 H (7-17) mg/dL Glucose 171 H (74-99) mg/dL POC Glucose (mg/dL) (75-99) mg/dL Calcium 6.9 L (8.4-10.2) mg/dL Ferritin 850.4 H (10.0-291.0) ng/mL AST 37 H (14-36) U/L ALT 199 H (4-34) U/L C-Reactive Protein 31.9 H (<10.0) mg/L Total Protein 4.9 L (6.3-8.2) g/dL Albumin 2.1 L (3.5-5.0) g/dL 03/31/20 03/31/20 03/31/20 Range/Units 05:42 08:59 11:48 RBC (3.80-5.40) m/uL Hgb (11.4-16.0) gm/dL Hct (34.0-46.0) % RDW (11.5-15.5) % ABG pH 7.46 H (7.35-7.45) ABG pCO2 33 L (35-45) mmHg ABG pO2 73 L (83-108) mmHg Chloride (98-107) mmol/L BUN (7-17) mg/dL Glucose (74-99) mg/dL POC Glucose (mg/dL) 150 H 190 H (75-99) mg/dL Calcium (8.4-10.2) mg/dL Ferritin (10.0-291.0) ng/mL AST (14-36) U/L ALT (4-34) U/L C-Reactive Protein (<10.0) mg/L Total Protein (6.3-8.2) g/dL Albumin (3.5-5.0) g/dL 03/31/20 Range/Units 15:07 RBC (3.80-5.40) m/uL Hgb (11.4-16.0) gm/dL Hct (34.0-46.0) % RDW (11.5-15.5) % ABG pH (7.35-7.45) ABG pCO2 (35-45) mmHg ABG pO2 (83-108) mmHg Chloride (98-107) mmol/L BUN (7-17) mg/dL Glucose (74-99) mg/dL POC Glucose (mg/dL) 185 H (75-99) mg/dL Calcium (8.4-10.2) mg/dL Ferritin (10.0-291.0) ng/mL AST (14-36) U/L ALT (4-34) U/L C-Reactive Protein (<10.0) mg/L Total Protein (6.3-8.2) g/dL Albumin (3.5-5.0) g/dL Microbiology - Last 24 Hours (Table) 03/25/20 11:58 Blood Culture - Final Blood No Growth after 144 hours Assessment and Plan (1) GI bleed Current Visit: Yes Status: Acute Code(s): K92.2 - GASTROINTESTINAL HEMORRHAGE, UNSPECIFIED SNOMED Code(s): 68218710
[2020-03-31] MEDS ORDERED: DEXMEDETOMIDINE/0.9% NACL(PMX) 400 MCG in EMPTY BAG 1 BAG IV SCH (11:15)
[2020-03-31 11:52] LABS: Glucose,Whole Blood 190 mg/dL (75-99)
[2020-03-31 15:09] LABS: Glucose,Whole Blood 185 mg/dL (75-99)
--- NOTE | 2020-03-31 18:19 | P.PN ---
Subjective Principal diagnosis: This is a continue progress note on 6-year-old white female with history of chronic anemia who is admitted for respiratory failure related to Covid pneumonia. The patient is intubated but has had some rectal bleeding. We will go ahead and type and screen for one unit. Otherwise appreciate multiple consultants input. The patient continues to be intubated at FIO2 of 50 percent. I am hopeful that the patient could possibly be weaned soon. Objective - Vital Signs Vital signs: Vital Signs Temp 98.9 F 03/31/20 04:00 Pulse 65 03/31/20 18:00 Resp 24 03/31/20 18:00 BP 127/68 03/31/20 18:00 Pulse Ox 92 L 03/31/20 18:00 Intake & Output 03/30/20 03/31/20 03/31/20 18:59 06:59 18:59 Intake Total 1730 3712.715 1352.033 Output Total 1044 724 2185 Balance -85 843.911 -439.967 Weight 91.6 kg 91.3 kg Intake: IV 1550 1200 810 0.9 NaCl- 1200 1200 710 Cefepime 2 gm In Sodium 100 100 Chloride 0.9% 100 ml @ 25 mls/hr IVPB Q12HR [facility] Rx #:[id number] Vancomycin 1,500 mg In 250 Sodium Chloride 0.9% 250 ml @ 125 mls/hr IVPB Q16H [facility] Rx#:[id number] Intake, IV Titration 268.911 110.033 Amount Dexmedetomidine/0.9% NaCl 23.434 (Pmx) 400 mcg In Empty Bag 1 bag @ Titrate IV . Q0M [facility] Rx#:[id number] propofoL 1,000 mg In 268.911 86.599 Empty Bag 1 bag @ Titrate IV .Q0M NON[facility] Rx#: [id number] Tube Feeding 120 120 120 Other 60 90 60 Output: Urine 0706 580 8965 Other: Voiding Method Indwelling Catheter Indwelling Catheter Indwelling Catheter - Constitutional General appearance: Present: average body habitus - EENT Eyes: Absent: abnormal pupil - Respiratory Respiratory: bilateral: diminished - Cardiovascular Rhythm: regular Heart sounds: normal: S1, S2 Abnormal Heart Sounds: Absent: S3 Gallop - Gastrointestinal General gastrointestinal: Present: soft. Absent: tenderness - Psychiatric Psychiatric: Absent: A&O x's 3 - Labs CBC & Chem 7: 03/31/20 04:12 03/31/20 04:12 Labs: Abnormal Lab Results - Last 24 Hours (Table) 03/30/20 03/30/20 03/31/20 Range/Units 19:47 23:58 03:07 RBC (3.80-5.40) m/uL Hgb (11.4-16.0) gm/dL Hct (34.0-46.0) % RDW (11.5-15.5) % ABG pH (7.35-7.45) ABG pCO2 (35-45) mmHg ABG pO2 (83-108) mmHg Chloride (98-107) mmol/L BUN (7-17) mg/dL Glucose (74-99) mg/dL POC Glucose (mg/dL) 210 H 182 H 159 H (75-99) mg/dL Calcium (8.4-10.2) mg/dL Ferritin (10.0-291.0) ng/mL AST (14-36) U/L ALT (4-34) U/L C-Reactive Protein (<10.0) mg/L Total Protein (6.3-8.2) g/dL Albumin (3.5-5.0) g/dL 03/31/20 03/31/20 03/31/20 Range/Units 04:12 04:12 04:12 RBC 3.07 L (3.80-5.40) m/uL Hgb 8.7 L (11.4-16.0) gm/dL Hct 27.9 L (34.0-46.0) % RDW 16.8 H (11.5-15.5) % ABG pH (7.35-7.45) ABG pCO2 (35-45) mmHg ABG pO2 (83-108) mmHg Chloride 115 H (98-107) mmol/L BUN 35 H (7-17) mg/dL Glucose 171 H (74-99) mg/dL POC Glucose (mg/dL) (75-99) mg/dL Calcium 6.9 L (8.4-10.2) mg/dL Ferritin 850.4 H (10.0-291.0) ng/mL AST 37 H (14-36) U/L ALT 199 H (4-34) U/L C-Reactive Protein 31.9 H (<10.0) mg/L Total Protein 4.9 L (6.3-8.2) g/dL Albumin 2.1 L (3.5-5.0) g/dL 03/31/20 03/31/20 03/31/20 Range/Units 05:42 08:59 11:48 RBC (3.80-5.40) m/uL Hgb (11.4-16.0) gm/dL Hct (34.0-46.0) % RDW (11.5-15.5) % ABG pH 7.46 H (7.35-7.45) ABG pCO2 33 L (35-45) mmHg ABG pO2 73 L (83-108) mmHg Chloride (98-107) mmol/L BUN (7-17) mg/dL Glucose (74-99) mg/dL POC Glucose (mg/dL) 150 H 190 H (75-99) mg/dL Calcium (8.4-10.2) mg/dL Ferritin (10.0-291.0) ng/mL AST (14-36) U/L ALT (4-34) U/L C-Reactive Protein (<10.0) mg/L Total Protein (6.3-8.2) g/dL Albumin (3.5-5.0) g/dL 03/31/20 Range/Units 15:07 RBC (3.80-5.40) m/uL Hgb (11.4-16.0) gm/dL Hct (34.0-46.0) % RDW (11.5-15.5) % ABG pH (7.35-7.45) ABG pCO2 (35-45) mmHg ABG pO2 (83-108) mmHg Chloride (98-107) mmol/L BUN (7-17) mg/dL Glucose (74-99) mg/dL POC Glucose (mg/dL) 185 H (75-99) mg/dL Calcium (8.4-10.2) mg/dL Ferritin (10.0-291.0) ng/mL AST (14-36) U/L ALT (4-34) U/L C-Reactive Protein (<10.0) mg/L Total Protein (6.3-8.2) g/dL Albumin (3.5-5.0) g/dL Microbiology - Last 24 Hours (Table) 03/25/20 11:58 Blood Culture - Final Blood No Growth after 144 hours Assessment and Plan (1) Acute respiratory distress syndrome Current Visit: Yes Status: Acute Code(s): J80 - ACUTE RESPIRATORY DISTRESS SYNDROME SNOMED Code(s): 60255561 (2) Anemia Current Visit: Yes Status: Acute Code(s): D64.9 - ANEMIA, UNSPECIFIED SNOMED Code(s): 729190525 (3) COVID-19 Current Visit: Yes Status: Acute Code(s): U07.1 - COVID-19 SNOMED Code(s): 045346301 (4) Pneumonia Current Visit: Yes Status: Acute Code(s): J18.9 - PNEUMONIA, UNSPECIFIED ORGANISM SNOMED Code(s): 251483425 (5) Fibromyalgia Current Visit: No Status: Acute Code(s): M79.7 - FIBROMYALGIA SNOMED Code(s): 638494337 Plan: Appropriate supportive care. Hopefully, we can start slowly weaning her off the vent if possible. Prognosis still Guarded due to her Covid 19. Check CBC and CMP in a.m. Appreciate multiple consultants input.
[2020-03-31 20:13] LABS: Glucose,Whole Blood 121 mg/dL (75-99)
--- NOTE | 2020-03-31 23:11 | PN ---
PROGRESS NOTE DATE OF SERVICE: 03/31/2020 REASON FOR FOLLOWUP: Pneumonia. INTERVAL HISTORY: The patient is currently afebrile. The patient is hemodynamically stable. FiO2 is currently at 40%. No significant purulent secretions through the ET or any diarrhea reported. PHYSICAL EXAMINATION: Blood pressure is 138/72 with a pulse of 61, temperature 98.9. She is 92% on 40% FiO2. General description is an elderly female lying in bed in no distress. RESPIRATORY SYSTEM: Unlabored breathing with decreased intensity of breath sounds. No wheeze. HEART: S1, S2. Regular rate and rhythm. ABDOMEN: Soft. No tenderness. LABS: Hemoglobin 8.7, white count 10.5, BUN of 35, creatinine 0.65. DIAGNOSTIC IMPRESSION AND PLAN: Patient with acute respiratory failure which is multifactorial in this patient who did have a recent COVID-19 infection with significant worsening, possible biphasic illness with the COVID-19. Patient is covered with Solu-Medrol, Lovenox, cefepime and zinc; to continue along with respiratory support. Monitor clinical course closely. [email or web address] / IJN: [id number] /
[2020-04-01 00:03] LABS: Glucose,Whole Blood 147 mg/dL (75-99)
[2020-04-01] MEDS: methylPREDNISolone SOD SUCCI 125 MG/2 ML VIAL IV SCH ×5 (00:14→23:33)
[2020-04-01] MEDS: INSULIN ASPART (NovoLOG) 100 UNIT/ML VIAL SQ SCH ×7 (00:14→23:34)
[2020-04-01] MEDS: HYDROmorphone 1 MG/ML 1 ML SYRINGE IVP PRN ×4 (02:51→21:28)
[2020-04-01] MEDS: hydrALAZINE HCL 20 MG/ML 1 ML VIAL IVP PRN ×3 (04:12→20:16)
[2020-04-01 04:21] LABS: Glucose,Whole Blood 138 mg/dL (75-99)
[2020-04-01 04:51] LABS: ABG Base Excess -1.2 mmol/L; ABG HCO3 23 mmol/L (21-25); ABG Oxygen Saturation 93.9 % (94-97); ABG PCO2 32 mmHg (35-45); ABG PH 7.46 (7.35-7.45); ABG PO2 67 mmHg (83-108); ABG TCO2 24 mmol/L (19-24); Allen Test Performed? Yes
[2020-04-01 05:05] LABS: Anisocytosis Slight; Basophils % (A) 0 %; Eosinophils % (A) 0 %; HCT 28.7 % (34.0-46.0); HGB 8.9 gm/dL (11.4-16.0); Hypochromasia Marked; Lymphocytes # (A) 0.3 k/uL (1.0-4.8); Lymphocytes % (A) 2 %; MCV 90.6 fL (80.0-100.0); Mean Platelet Volume 8.6; Monocytes # (A) 0.3 k/uL (0-1.0); Monocytes % (A) 3 %; Neutrophils # (A) 9.8 k/uL (1.3-7.7); Neutrophils % (A) 94 %; Platelet Count 251 k/uL (150-450); Poikilocytosis Moderate; RBC 3.17 m/uL (3.80-5.40); RDW 16.7 % (11.5-15.5); WBC 10.4 k/uL (3.8-10.6)
[2020-04-01 05:24] LABS: ALT 138 U/L (4-34); AST 30 U/L (14-36); African American GFR (CKD) >90 (>60 ml/min/1.73 sqM); Albumin 2.1 g/dL (3.5-5.0); Alkaline Phosphatase 99 U/L (38-126); Anion Gap 2 mmol/L; Blood Urea Nitrogen 33 mg/dL (7-17); C Reactive Protein 26.8 mg/L (<10.0); Calcium 7.2 mg/dL (8.4-10.2); Carbon Dioxide 23 mmol/L (22-30); Chloride 115 mmol/L (98-107); Glucose 125 mg/dL (74-99); Non-African American GFR(CKD) >90 (>60 ml/min/1.73 sqM); Potassium 4.1 mmol/L (3.5-5.1); Sodium 140 mmol/L (137-145); Total Bilirubin 0.5 mg/dL (0.2-1.3); Total Protein 4.9 g/dL (6.3-8.2)
[2020-04-01] MEDS: ASCORBIC ACID 500 MG TAB PO SCH ×2 (09:43→21:26)
[2020-04-01] MEDS: CEFEPIME 2 GM in SODIUM CHLORIDE 0.9% 100 ML IVPB SCH ×2 (09:43→21:27)
[2020-04-01] MEDS: ENOXAPARIN 40 MG/0.4 ML SYRINGE SQ SCH ×2 (09:44→21:26)
[2020-04-01] MEDS: ZINC SULFATE 220 MG CAP PO SCH (09:44)
[2020-04-01] MEDS: CHLORHEXIDINE GLUCONATE 15 ML CUP MUCOUS MEM SCH ×2 (09:44→21:26)
[2020-04-01] MEDS: CHOLECALCIFEROL 400 UNIT TAB PO SCH (09:44)
[2020-04-01] MEDS: PANTOPRAZOLE 40 MG/10 ML VIAL IVP SCH ×2 (09:45→21:27)
[2020-04-01] MEDS: FUROSEMIDE 10 MG/ML 2 ML VIAL IV SCH (09:45)
[2020-04-01 10:03] LABS: Glucose,Whole Blood 149 mg/dL (75-99)
[2020-04-01] MEDS: SODIUM CHLORIDE 0.9% 1,000 ML IV SCH ×2 (10:14→21:29)
[2020-04-01 10:15] LABS: Ferritin 618.3 ng/mL (10.0-291.0)
--- NOTE | 2020-04-01 10:17 | XR ---
EXAMINATION TYPE: XR chest 1V DATE OF EXAM: 04/01/2020 COMPARISON: 03/31/2020 INDICATION: Short of breath TECHNIQUE: Single frontal view of the chest is obtained. FINDINGS: The heart size is prominent. The pulmonary vasculature is prominent. Diffuse increased lung markings are present bilaterally greater at the left base. Nasogastric tube remains curled within the suspected hiatal hernia. Endotracheal tube tip is above th e allison. Right-sided PICC line tip is within the right atrium. IMPRESSION: 1. Stable bilateral lung infiltrates. 2. Stable lines and catheters discussed above
--- NOTE | 2020-04-01 11:31 | P.PN ---
<Ana Parks - Last Filed: 04/01/20 11:27> Subjective Progress Note Date: 04/01/20 CHIEF COMPLAINT: GI bleed HISTORY OF PRESENT ILLNESS: Patient is currently hospitalized for respiratory failure and is COVID positive. She is currently in the ICU and intubated. She is being followed for her GI bleed. She is tolerating her tube feeds through the NG tube. Patient had no stool today or yesterday. Afebrile. WBC 10.4 hemoglobin 8.9 AST 30 and ALT 138 PHYSICAL EXAM: VITAL SIGNS: Reviewed. GENERAL: Well-developed in no acute distress. HEENT: No sclera icterus. Extraocular movements grossly intact. Moist buccal mucosa. Head is atraumatic, normocephalic. ABDOMEN: Soft. Nondistended. Nontender. NEUROLOGIC: Patient is intubated. She is able to open her eyes and is awake ASSESSMENT: 1. Acute GI bleed 2. Acute on chronic blood loss anemia 3. Elevated liver enzymes with large gallstone present on abdominal ultrasound 4. Acute hypoxic respiratory failure requiring intubation 5. COVID positive PLAN: -Continue supportive care -Continue tube feedings for nutrition support -Continue to monitor hemoglobin -Dr. Henry will proceed with upper and lower endoscopy when stable Physician Avionics Repair Technician note has been reviewed by physician. Signing provider agrees with the documented findings, assessment, and plan of care. Objective - Vital Signs Vital signs: Vital Signs Temp 97.2 F L 04/01/20 08:00 Pulse 59 L 04/01/20 11:00 Resp 24 04/01/20 11:00 BP 149/80 04/01/20 11:00 Pulse Ox 95 04/01/20 11:00 Intake & Output 03/31/20 04/01/20 04/01/20 18:59 06:59 18:59 Intake Total 2836.583 9469 769.587 Output Total 1540 710 365 Balance -426.566 750 404.587 Weight 85.6 kg Intake: IV 810 1170 600 0.9 NaCl- 710 1170 500 Cefepime 2 gm In Sodium 100 100 Chloride 0.9% 100 ml @ 25 mls/hr IVPB Q12HR [facility] Rx #:[id number] Intake, IV Titration 123.434 100 109.587 Amount Dexmedetomidine/0.9% NaCl 23.434 (Pmx) 400 mcg In Empty Bag 1 bag @ Titrate IV . Q0M [facility] Rx#:[id number] propofoL 1,000 mg In 100.000 100 109.587 Empty Bag 1 bag @ Titrate IV .Q0M [facility] Rx#: [id number] Tube Feeding 120 120 40 Other 60 70 20 Output: Urine 1540 710 365 Other: Voiding Method Indwelling Catheter Indwelling Catheter Indwelling Catheter - Labs CBC & Chem 7: 04/01/20 04:10 04/01/20 04:10 Labs: Abnormal Lab Results - Last 24 Hours (Table) 03/31/20 03/31/20 03/31/20 Range/Units 04:12 11:48 15:07 RBC (3.80-5.40) m/uL Hgb (11.4-16.0) gm/dL Hct (34.0-46.0) % RDW (11.5-15.5) % Neutrophils # (1.3-7.7) k/uL Lymphocytes # (1.0-4.8) k/uL D-Dimer (<0.60) mg/L FEU ABG pH (7.35-7.45) ABG pCO2 (35-45) mmHg ABG pO2 (83-108) mmHg ABG O2 Saturation (94-97) % Chloride (98-107) mmol/L BUN (7-17) mg/dL Glucose (74-99) mg/dL POC Glucose (mg/dL) 190 H 185 H (75-99) mg/dL Calcium (8.4-10.2) mg/dL Ferritin 850.4 H (10.0-291.0) ng/mL ALT (4-34) U/L C-Reactive Protein (<10.0) mg/L Total Protein (6.3-8.2) g/dL Albumin (3.5-5.0) g/dL 03/31/20 03/31/20 04/01/20 Range/Units 20:11 23:59 04:09 RBC (3.80-5.40) m/uL Hgb (11.4-16.0) gm/dL Hct (34.0-46.0) % RDW (11.5-15.5) % Neutrophils # (1.3-7.7) k/uL Lymphocytes # (1.0-4.8) k/uL D-Dimer (<0.60) mg/L FEU ABG pH (7.35-7.45) ABG pCO2 (35-45) mmHg ABG pO2 (83-108) mmHg ABG O2 Saturation (94-97) % Chloride (98-107) mmol/L BUN (7-17) mg/dL Glucose (74-99) mg/dL POC Glucose (mg/dL) 121 H 147 H 138 H (75-99) mg/dL Calcium (8.4-10.2) mg/dL Ferritin (10.0-291.0) ng/mL ALT (4-34) U/L C-Reactive Protein (<10.0) mg/L Total Protein (6.3-8.2) g/dL Albumin (3.5-5.0) g/dL 04/01/20 04/01/20 04/01/20 Range/Units 04:10 04:10 04:10 RBC 3.17 L (3.80-5.40) m/uL Hgb 8.9 L (11.4-16.0) gm/dL Hct 28.7 L (34.0-46.0) % RDW 16.7 H (11.5-15.5) % Neutrophils # 9.8 H (1.3-7.7) k/uL Lymphocytes # 0.3 L (1.0-4.8) k/uL D-Dimer 2.42 H (<0.60) mg/L FEU ABG pH (7.35-7.45) ABG pCO2 (35-45) mmHg ABG pO2 (83-108) mmHg ABG O2 Saturation (94-97) % Chloride 115 H (98-107) mmol/L BUN 33 H (7-17) mg/dL Glucose 125 H (74-99) mg/dL POC Glucose (mg/dL) (75-99) mg/dL Calcium 7.2 L (8.4-10.2) mg/dL Ferritin 618.3 H (10.0-291.0) ng/mL ALT 138 H (4-34) U/L C-Reactive Protein 26.8 H (<10.0) mg/L Total Protein 4.9 L (6.3-8.2) g/dL Albumin 2.1 L (3.5-5.0) g/dL 04/01/20 04/01/20 Range/Units 04:48 10:01 RBC (3.80-5.40) m/uL Hgb (11.4-16.0) gm/dL Hct (34.0-46.0) % RDW (11.5-15.5) % Neutrophils # (1.3-7.7) k/uL Lymphocytes # (1.0-4.8) k/uL D-Dimer (<0.60) mg/L FEU ABG pH 7.46 H (7.35-7.45) ABG pCO2 32 L (35-45) mmHg ABG pO2 67 L (83-108) mmHg ABG O2 Saturation 93.9 L (94-97) % Chloride (98-107) mmol/L BUN (7-17) mg/dL Glucose (74-99) mg/dL POC Glucose (mg/dL) 149 H (75-99) mg/dL Calcium (8.4-10.2) mg/dL Ferritin (10.0-291.0) ng/mL ALT (4-34) U/L C-Reactive Protein (<10.0) mg/L Total Protein (6.3-8.2) g/dL Albumin (3.5-5.0) g/dL Microbiology - Last 24 Hours (Table) 03/25/20 11:58 Blood Culture - Final Blood No Growth after 144 hours <William Henry - Last Filed: 04/01/20 12:03> Subjective As above. Hemoglobin remained stable. Will increase tube feeds. Will follow. Objective - Vital Signs Vital signs: Vital Signs Temp 97.2 F L 04/01/20 08:00 Pulse 59 L 04/01/20 11:00 Resp 24 04/01/20 11:00 BP 149/80 04/01/20 11:00 Pulse Ox 95 04/01/20 11:00 Intake & Output 03/31/20 04/01/20 04/01/20 18:59 06:59 18:59 Intake Total 8884.856 1186 769.587 Output Total 1540 710 365 Balance -426.566 750 404.587 Weight 85.6 kg 85.6 kg Intake: IV 810 1170 600 0.9 NaCl- 710 1170 500 Cefepime 2 gm In Sodium 100 100 Chloride 0.9% 100 ml @ 25 mls/hr IVPB Q12HR [facility] Rx #:[id number] Intake, IV Titration 123.434 100 109.587 Amount Dexmedetomidine/0.9% NaCl 23.434 (Pmx) 400 mcg In Empty Bag 1 bag @ Titrate IV . Q0M [facility] Rx#:[id number] propofoL 1,000 mg In 100.000 100 109.587 Empty Bag 1 bag @ Titrate IV .Q0M NON[facility] Rx#: [id number] Tube Feeding 120 120 40 Other 60 70 20 Output: Urine 1540 710 365 Other: Voiding Method Indwelling Catheter Indwelling Catheter Indwelling Catheter - Labs CBC & Chem 7: 04/01/20 04:10 04/01/20 04:10 Labs: Abnormal Lab Results - Last 24 Hours (Table) 03/31/20 03/31/20 03/31/20 Range/Units 04:12 15:07 20:11 RBC (3.80-5.40) m/uL Hgb (11.4-16.0) gm/dL Hct (34.0-46.0) % RDW (11.5-15.5) % Neutrophils # (1.3-7.7) k/uL Lymphocytes # (1.0-4.8) k/uL D-Dimer (<0.60) mg/L FEU ABG pH (7.35-7.45) ABG pCO2 (35-45) mmHg ABG pO2 (83-108) mmHg ABG O2 Saturation (94-97) % Chloride (98-107) mmol/L BUN (7-17) mg/dL Glucose (74-99) mg/dL POC Glucose (mg/dL) 185 H 121 H (75-99) mg/dL Calcium (8.4-10.2) mg/dL Ferritin 850.4 H (10.0-291.0) ng/mL ALT (4-34) U/L C-Reactive Protein (<10.0) mg/L Total Protein (6.3-8.2) g/dL Albumin (3.5-5.0) g/dL 03/31/20 04/01/20 04/01/20 Range/Units 23:59 04:09 04:10 RBC 3.17 L (3.80-5.40) m/uL Hgb 8.9 L (11.4-16.0) gm/dL Hct 28.7 L (34.0-46.0) % RDW 16.7 H (11.5-15.5) % Neutrophils # 9.8 H (1.3-7.7) k/uL Lymphocytes # 0.3 L (1.0-4.8) k/uL D-Dimer (<0.60) mg/L FEU ABG pH (7.35-7.45) ABG pCO2 (35-45) mmHg ABG pO2 (83-108) mmHg ABG O2 Saturation (94-97) % Chloride (98-107) mmol/L BUN (7-17) mg/dL Glucose (74-99) mg/dL POC Glucose (mg/dL) 147 H 138 H (75-99) mg/dL Calcium (8.4-10.2) mg/dL Ferritin (10.0-291.0) ng/mL ALT (4-34) U/L C-Reactive Protein (<10.0) mg/L Total Protein (6.3-8.2) g/dL Albumin (3.5-5.0) g/dL 04/01/20 04/01/20 04/01/20 Range/Units 04:10 04:10 04:48 RBC (3.80-5.40) m/uL Hgb (11.4-16.0) gm/dL Hct (34.0-46.0) % RDW (11.5-15.5) % Neutrophils # (1.3-7.7) k/uL Lymphocytes # (1.0-4.8) k/uL D-Dimer 2.42 H (<0.60) mg/L FEU ABG pH 7.46 H (7.35-7.45) ABG pCO2 32 L (35-45) mmHg ABG pO2 67 L (83-108) mmHg ABG O2 Saturation 93.9 L (94-97) % Chloride 115 H (98-107) mmol/L BUN 33 H (7-17) mg/dL Glucose 125 H (74-99) mg/dL POC Glucose (mg/dL) (75-99) mg/dL Calcium 7.2 L (8.4-10.2) mg/dL Ferritin 618.3 H (10.0-291.0) ng/mL ALT 138 H (4-34) U/L C-Reactive Protein 26.8 H (<10.0) mg/L Total Protein 4.9 L (6.3-8.2) g/dL Albumin 2.1 L (3.5-5.0) g/dL 04/01/20 Range/Units 10:01 RBC (3.80-5.40) m/uL Hgb (11.4-16.0) gm/dL Hct (34.0-46.0) % RDW (11.5-15.5) % Neutrophils # (1.3-7.7) k/uL Lymphocytes # (1.0-4.8) k/uL D-Dimer (<0.60) mg/L FEU ABG pH (7.35-7.45) ABG pCO2 (35-45) mmHg ABG pO2 (83-108) mmHg ABG O2 Saturation (94-97) % Chloride (98-107) mmol/L BUN (7-17) mg/dL Glucose (74-99) mg/dL POC Glucose (mg/dL) 149 H (75-99) mg/dL Calcium (8.4-10.2) mg/dL Ferritin (10.0-291.0) ng/mL ALT (4-34) U/L C-Reactive Protein (<10.0) mg/L Total Protein (6.3-8.2) g/dL Albumin (3.5-5.0) g/dL Microbiology - Last 24 Hours (Table) 03/25/20 11:58 Blood Culture - Final Blood No Growth after 144 hours Assessment and Plan (1) GI bleed Current Visit: Yes Status: Acute Code(s): K92.2 - GASTROINTESTINAL HEMORRHAGE, UNSPECIFIED SNOMED Code(s): 77294416
[2020-04-01 12:30] LABS: Glucose,Whole Blood 146 mg/dL (75-99)
--- NOTE | 2020-04-01 12:46 | P.PN ---
Subjective Progress Note Date: 03/31/20 (Critical care time 35 minutes) Principal diagnosis: Acute hypoxic respiratory failure Covid19 pneumonia Acute respiratory and metabolic acidosis Acute hepatitis/elevated liver enzymes Acute diastolic heart failure and fluid overload Chronic anemia Fibromyalgia Hypertension hypertensive cardiovascular disease 03/31/2020, patient seen eval examined during the rounds labs reviewed medications reviewed care plan discussed, patient remains on full ventilator support, propofol was changed to Precedex but however patient becomes agitated so back on propofol when setting remains unchanged have been on assist control rate of 24, PEEP is 5, FiO2 is 40%, tidal volume of 450, care plan discussed with the staff at length critical care time 35 minutes 03/30/2020, patient seen eval examined during the rounds labs reviewed medications reviewed, remains sedated with propofol, current vent setting include his control rate of 24 breathing 24 tidal volume is 450, deep is 5 now, FiO2 is 40%, tolerating tube feed very well, chest x-ray reviewed slightly better but stable bilateral infiltrate consistent with atypical pneumonia, patient continued IVs very well with 20 mg Lasix daily, white cell count remained stable, with stable hemoglobin and however decreasing platelet count noted, dear blood gases revealed pH of 7.4 to pCO2 34 pO2 of 62, BUN/creatinine is 36 and 0.62, left he continue show downward trend, inflammatory markers reviewed still elevated but showing a downward trend 03/29/2020, patient seen eval examined during the rounds labs reviewed medications reviewed, care plan discussed with the nursing staff at length, patient has been on assist control rate of the 24 PEEP of 8 400 tidal volume 50% oxygen, ventilator has been adjusted with reduction in PEEP and oxygen, patient's saturation remained stable 91-92%, next step he is to stop propofol and reassess the mental status and if patient remains stable oxygen randolph and hemodynamics can do a CPAP pressure support trial in the meantime we'll continue IV steroids, antibiotics, CBC and ABG reviewed, today's chest x-ray showed bilateral interstitial infiltrate, predominantly at the bases, patient has been on Lasix 20 mg daily diuresing very well, critical care time 35 minutes 03/28/2020, patient seen eval examined during the rounds labs reviewed medications reviewed care plan discussed oxygen has been down to 40% now. The patient is PEEP of 8, otherwise ventilator setting remains stable, patient is scheduled for PICC line later on today, remains on propofol, remains on broad- spectrum antibiotics, labs from today has been reviewed hemoglobin is stable 7.9, d-dimer is 3.24, arterial blood gases stable pH is 7.41 pCO2 35 pO2 96, BUN/creatinine is 51 and 1.05, ferritin level remains more than 26,000, AST ALT continued decline however today is 367 and 558, C-reactive protein checked 69.5 her chest x-ray earlier than today remains there however appears to have slightly progressed 03/27/2020, patient seen eval examined during the rounds labs reviewed medications reviewed care plan discussed, propofol has been discontinued patient because very restless and anxious, we'll restart propofol, patient has been on full ventilator support assist control 24 tidal volume of 450, PEEP is 10, ox ygen is 70%, arterial blood gases reviewed when lower the FiO2 to 60% now plan to bring down the FiO2 to 50% and PEEP of 8 next 24 hours, sputum and blood cultures reviewed no growth so far, chest x-ray performed today reviewed significant improvement in infiltrates seen bilaterally, patient has a poor urine output throughout the night, 20 mg of Lasix was given put out 600 mL of urine patient continued to be on gentle hydration, remain on cefapime and Vanco, Lovenox Solu-Medrol multivitamin and vitamin C zinc and Lovenox, white cell count is stable 10,500 hemoglobin and hematocrit 7.2 and 24, general surgery has been following patient is considered to get EGD and colonoscopy once stable, ar terial blood gas revealed pH of 7.39 pCO2 of 39 pO2 of 124, bicarb 25, liver enzymes continue to come down AST and ALT now is 944/809, hepatitis panel normal and nonreactive 03/26/2020, patient seen eval examined in the ICU care plan discussed with the staff, FiO2 has been down to 60%, patient remains on assist control tidal volume of 450, PEEP is 10, respiratory rate is 24 breathing with the respirator pH has been improved significantly, patient is making adequate urine chest x-ray compared with yesterday's x-ray some improvement have been noted, white cell count is 11,000, hemoglobin 7.9 which is stable, arterial blood gas improved to 7.39, pCO2 of 40, pO2 112, BUN/creatinine is 33/0.96, lactic acid was 5.9 down to 1.3 now, ferritin level noted to be 12,800, AST and ALT are 4014 100 with LDH over 21,500, today LFTs significantly improved AST is down to 2795 and ALT is 1222, pro calcitonin is 0.84, suspect some component of heart failure as well as pneumonia, will get an echocardiogram as well as start patient on broad-spectrum antibiotics with cefepime and Vanco Patient seen and evaluated examined in the emergency department, patient came into the ER from the office of Dr. Aleman due to progressive shortness of breath, patient has acute on chronic hypoxic respiratory failure on 4 L oxygen, also has issues associated with pneumonia presumed to be cold with 19, however, testing was negative, patient used to smoke in the remote past quit about 20-30 years ago due to severity or shortness of breath and hypoxia with saturation of 76% on 100% oxygen and respiratory distress patient was intubated due to poor tolerance on BiPAP, patient Covid testing came back positive, chest x-ray showing diffuse infiltrate she also has been noted to have elevated liver enzymes due to elevated liver enzymes will not start IV REMdesivir, Initial ABG pH is 7.18, pCO2 is 63 pO2 was only 33 Objective - Vital Signs Vital signs: Vital Signs Temp 98.9 F 03/31/20 04:00 Pulse 64 03/31/20 15:00 Resp 24 03/31/20 15:00 BP 200/110 03/31/20 15:00 Pulse Ox 90 L 03/31/20 15:00 Intake & Output 03/30/20 03/31/20 03/31/20 18:59 06:59 18:59 Intake Total 1730 1678.911 710.033 Output Total 3361 475 1598 Balance -85 843.911 -744.967 Weight 91.6 kg 91.3 kg Intake: IV 1550 1200 450 0.9 NaCl- 1200 1200 350 Cefepime 2 gm In Sodium 100 100 Chloride 0.9% 100 ml @ 25 mls/hr IVPB Q12HR NONA Rx #:[id number] Vancomycin 1,500 mg In 250 Sodium Chloride 0.9% 250 ml @ 125 mls/hr IVPB Q16H NONA Rx#:[id number] Intake, IV Titration 268.911 110.033 Amount Dexmedetomidine/0.9% NaCl 23.434 (Pmx) 400 mcg In Empty Bag 1 bag @ Titrate IV . Q0M NONA Rx#:[id number] propofoL 1,000 mg In 268.911 86.599 Empty Bag 1 bag @ Titrate IV .Q0M [facility] Rx#: [id number] Tube Feeding 120 120 100 Other 60 90 50 Output: Urine 7783 861 7759 Other: Voiding Method Indwelling Catheter Indwelling Catheter Indwelling Catheter - Exam Intubated sedated with propofol - Constitutional General appearance: average body habitus, mild distress - EENT Ears: bilateral: normal - Neck Carotids: bilateral: upstroke normal Thyroid: bilateral: normal size - Respiratory Respiratory: bilateral: diminished - Cardiovascular Rhythm: regular Heart sounds: normal: S1, S2 - Gastrointestinal General gastrointestinal: normal bowel sounds Sedated with propofol on full ventilator support with 40 % oxygen and assist control mode - Labs CBC & Chem 7: 04/01/20 04:10 04/01/20 04:10 Labs: Abnormal Lab Results - Last 24 Hours (Table) 03/30/20 03/30/20 03/31/20 Range/Units 19:47 23:58 03:07 RBC (3.80-5.40) m/uL Hgb (11.4-16.0) gm/dL Hct (34.0-46.0) % RDW (11.5-15.5) % ABG pH (7.35-7.45) ABG pCO2 (35-45) mmHg ABG pO2 (83-108) mmHg Chloride (98-107) mmol/L BUN (7-17) mg/dL Glucose (74-99) mg/dL POC Glucose (mg/dL) 210 H 182 H 159 H (75-99) mg/dL Calcium (8.4-10.2) mg/dL Ferritin (10.0-291.0) ng/mL AST (14-36) U/L ALT (4-34) U/L C-Reactive Protein (<10.0) mg/L Total Protein (6.3-8.2) g/dL Albumin (3.5-5.0) g/dL 03/31/20 03/31/20 03/31/20 Range/Units 04:12 04:12 04:12 RBC 3.07 L (3.80-5.40) m/uL Hgb 8.7 L (11.4-16.0) gm/dL Hct 27.9 L (34.0-46.0) % RDW 16.8 H (11.5-15.5) % ABG pH (7.35-7.45) ABG pCO2 (35-45) mmHg ABG pO2 (83-108) mmHg Chloride 115 H (98-107) mmol/L BUN 35 H (7-17) mg/dL Glucose 171 H (74-99) mg/dL POC Glucose (mg/dL) (75-99) mg/dL Calcium 6.9 L (8.4-10.2) mg/dL Ferritin 850.4 H (10.0-291.0) ng/mL AST 37 H (14-36) U/L ALT 199 H (4-34) U/L C-Reactive Protein 31.9 H (<10.0) mg/L Total Protein 4.9 L (6.3-8.2) g/dL Albumin 2.1 L (3.5-5.0) g/dL 03/31/20 03/31/20 03/31/20 Range/Units 05:42 08:59 11:48 RBC (3.80-5.40) m/uL Hgb (11.4-16.0) gm/dL Hct (34.0-46.0) % RDW (11.5-15.5) % ABG pH 7.46 H (7.35-7.45) ABG pCO2 33 L (35-45) mmHg ABG pO2 73 L (83-108) mmHg Chloride (98-107) mmol/L BUN (7-17) mg/dL Glucose (74-99) mg/dL POC Glucose (mg/dL) 150 H 190 H (75-99) mg/dL Calcium (8.4-10.2) mg/dL Ferritin (10.0-291.0) ng/mL AST (14-36) U/L ALT (4-34) U/L C-Reactive Protein (<10.0) mg/L Total Protein (6.3-8.2) g/dL Albumin (3.5-5.0) g/dL 03/31/20 Range/Units 15:07 RBC (3.80-5.40) m/uL Hgb (11.4-16.0) gm/dL Hct (34.0-46.0) % RDW (11.5-15.5) % ABG pH (7.35-7.45) ABG pCO2 (35-45) mmHg ABG pO2 (83-108) mmHg Chloride (98-107) mmol/L BUN (7-17) mg/dL Glucose (74-99) mg/dL POC Glucose (mg/dL) 185 H (75-99) mg/dL Calcium (8.4-10.2) mg/dL Ferritin (10.0-291.0) ng/mL AST (14-36) U/L ALT (4-34) U/L C-Reactive Protein (<10.0) mg/L Total Protein (6.3-8.2) g/dL Albumin (3.5-5.0) g/dL Microbiology - Last 24 Hours (Table) 03/25/20 11:58 Blood Culture - Final Blood No Growth after 144 hours Assessment and Plan Assessment: Acute hypoxic respiratory failure Covid19 pneumonia Acute pneumonia bacterial bilateral healthcare associated Thrombocytopenia Acute respiratory and metabolic acidosis Acute hepatitis/elevated liver enzymes Acute diastolic heart failure Chronic anemia Fibromyalgia Hypertension hypertensive cardiovascular disease Plan: Continue gentle diuresis Ventilator support adjustment of ventilator as per clinical response and ar terial blood gases, will attempt weaning trial starting later on today if remains stable IV antibiotics broad-spectrum IV Lasix 20 mg daily keep on negative side Sputum culture and blood culture Enteral nutrition via tube feeding Trend liver enzymes Patient is not a candidate for IV REMdesivir IV steroids Further recommendations pending plan of care as per clinical response of patient Continue anticoagulation with Lovenox We will hold Propofol today if remains stable consider weaning trial with CPAP and pressure support Time with Patient: Greater than 30
--- NOTE | 2020-04-01 12:48 | P.PN ---
Subjective Progress Note Date: 04/01/20 Principal diagnosis: Acute hypoxic respiratory failure Covid19 pneumonia Acute respiratory and metabolic acidosis Acute hepatitis/elevated liver enzymes Acute diastolic heart failure and fluid overload Chronic anemia Fibromyalgia Hypertension hypertensive cardiovascular disease 04/01/2020, patient seen eval examined labs reviewed medications reviewed care plan discussed with the staff at length patient had a sedation holiday today she is arousable and awake follows simple commands with blood pressure went up becomes agitated anxious requiring a reinitiation of propofol drip, ventilator setting remains unchanged, patient is on rate of 24 tidal volume is 450, PEEP is 5, oxygen is 40%, chest x-ray from today reviewed remains overall stable with stable lines and tubes 03/31/2020, patient seen eval examined during the rounds labs reviewed medications reviewed care plan discussed, patient remains on full ventilator support, propofol was changed to Precedex but however patient becomes agitated so back on propofol when setting remains unchanged have been on assist control rate of 24, PEEP is 5, FiO2 is 40%, tidal volume of 450, care plan discussed with the staff at length critical care time 35 minutes 03/30/2020, patient seen eval examined during the rounds labs reviewed medications reviewed, remains sedated with propofol, current vent setting include his control rate of 24 breathing 24 tidal volume is 450, deep is 5 now, FiO2 is 40%, tolerating tube feed very well, chest x-ray reviewed slightly better but stable bilateral infiltrate consistent with atypical pneumonia, patient continued IVs very well with 20 mg Lasix daily, white cell count remained stable, with stable hemoglobin and however decreasing platelet count noted, dear blood gases revealed pH of 7.4 to pCO2 34 pO2 of 62, BUN/creatinine is 36 and 0.62, left he continue show downward trend, inflammatory markers reviewed still elevated but showing a downward trend 03/29/2020, patient seen eval examined during the rounds labs reviewed medications reviewed, care plan discussed with the nursing staff at length, patient has been on assist control rate of the 24 PEEP of 8 400 tidal volume 50% oxygen, ventilator has been adjusted with reduction in PEEP and oxygen, patient's saturation remained stable 91-92%, next step he is to stop propofol and reassess the mental status and if patient remains stable oxygen randolph and hemodynamics can do a CPAP pressure support trial in the meantime we'll continue IV steroids, antibiotics, CBC and ABG reviewed, today's chest x-ray showed bilateral interstitial infiltrate, predominantly at the bases, patient has been on Lasix 20 mg daily diuresing very well, critical care time 35 minutes 03/28/2020, patient seen eval examined during the rounds labs reviewed medications reviewed care plan discussed oxygen has been down to 40% now. The patient is PEEP of 8, otherwise ventilator setting remains stable, patient is scheduled for PICC line later on today, remains on propofol, remains on broad- spectrum antibiotics, labs from today has been reviewed hemoglobin is stable 7.9, d-dimer is 3.24, arterial blood gases stable pH is 7.41 pCO2 35 pO2 96, BUN/creatinine is 51 and 1.05, ferritin level remains more than 26,000, AST ALT continued decline however today is 367 and 558, C-reactive protein checked 69.5 her chest x-ray earlier than today remains there however appears to have slightly progressed 03/27/2020, patient seen eval examined during the rounds labs reviewed medications reviewed care plan discussed, propofol has been discontinued patient because very restless and anxious, we'll restart propofol, patient has been on full ventilator support assist control 24 tidal volume of 450, PEEP is 10, oxygen is 70%, arterial blood gases reviewed when lower the FiO2 to 60% now plan to bring down the FiO2 to 50% and PEEP of 8 next 24 hours, sputum and blood cultures reviewed no growth so far, chest x-ray performed today reviewed signifi cant improvement in infiltrates seen bilaterally, patient has a poor urine output throughout the night, 20 mg of Lasix was given put out 600 mL of urine patient continued to be on gentle hydration, remain on cefapime and Vanco, Lovenox Solu-Medrol multivitamin and vitamin C zinc and Lovenox, white cell count is stable 10,500 hemoglobin and hematocrit 7.2 and 24, general surgery has been following patient is considered to get EGD and colonoscopy once stable, arterial blood gas revealed pH of 7.39 pCO2 of 39 pO2 of 124, bicarb 25, liver enzymes continue to come down AST and ALT now is 944/809, hepatitis panel normal and nonreactive 03/26/2020, patient seen eval examined in the ICU care plan discussed with the staff, FiO2 has been down to 60%, patient remains on assist control tidal volume of 450, PEEP is 10, respiratory rate is 24 breathing with the respirator pH has been improved significantly, patient is making adequate urine chest x-ray compared with yesterday's x-ray some improvement have been noted, white cell count is 11,000, hemoglobin 7.9 which is stable, arterial blood gas improved to 7.39, pCO2 of 40, pO2 112, BUN/creatinine is 33/0.96, lactic acid was 5.9 down to 1.3 now, ferritin level noted to be 12,800, AST and ALT are 4014 100 with LDH over 21,500, today LFTs significantly improved AST is down to 2795 and ALT is 1222, pro calcitonin is 0.84, suspect some component of heart failure as well as pneumonia, will get an echocardiogram as well as start patient on broad-spectrum antibiotics with cefepime and Vanco Patient seen and evaluated examined in the emergency department, patient came into the ER from the office of Dr. Aleman due to progressive shortness of breath, patient has acute on chronic hypoxic respiratory failure on 4 L oxygen, also has issues associated with pneumonia presumed to be cold with 19, however, testing was negative, patient used to smoke in the remote past quit about 20-30 years ago due to severity or shortness of breath and hypoxia with saturation of 76% on 100% oxygen and respiratory distress patient was intubated due to poor tolerance on BiPAP, patient Covid testing came back positive, chest x-ray showing diffuse infiltrate she also has been noted to have elevated liver enzymes due to elevated liver enzymes will not start IV REMdesivir, Initial ABG pH is 7.18, pCO2 is 63 pO2 was only 33 Objective - Vital Signs Vital signs: Vital Signs Temp 97.5 F L 04/01/20 12:00 Pulse 64 04/01/20 12:00 Resp 24 04/01/20 12:00 BP 145/81 04/01/20 12:00 Pulse Ox 96 04/01/20 12:00 Intake & Output 03/31/20 04/01/20 04/01/20 18:59 06:59 18:59 Intake Total 1921.296 6829 959.587 Output Total 1540 710 605 Balance -426.566 750 354.587 Weight 85.6 kg 85.6 kg Intake: IV 810 1170 700 0.9 NaCl- 710 1170 600 Cefepime 2 gm In Sodium 100 100 Chloride 0.9% 100 ml @ 25 mls/hr IVPB Q12HR NONA Rx #:[id number] Intake, IV Titration 123.434 100 109.587 Amount Dexmedetomidine/0.9% NaCl 23.434 (Pmx) 400 mcg In Empty Bag 1 bag @ Titrate IV . Q0M NONA Rx#:[id number] propofoL 1,000 mg In 100.000 100 109.587 Empty Bag 1 bag @ Titrate IV .Q0M NONA Rx#: [id number] Tube Feeding 120 120 100 Other 60 70 50 Output: Urine 1540 710 605 Other: Voiding Method Indwelling Catheter Indwelling Catheter Indwelling Catheter - Exam Intubated sedated with propofol - Constitutional General appearance: average body habitus, mild distress - EENT Ears: bilateral: normal - Neck Carotids: bilateral: upstroke normal Thyroid: bilateral: normal size - Respiratory Respiratory: bilateral: diminished - Cardiovascular Rhythm: regular Heart sounds: normal: S1, S2 - Gastrointestinal General gastrointestinal: normal bowel sounds Sedated with propofol on full ventilator support with 40 % oxygen and assist control mode - Labs CBC & Chem 7: 04/01/20 04:10 04/01/20 04:10 Labs: Abnormal Lab Results - Last 24 Hours (Table) 03/31/20 03/31/20 03/31/20 Range/Units 04:12 15:07 20:11 RBC (3.80-5.40) m/uL Hgb (11.4-16.0) gm/dL Hct (34.0-46.0) % RDW (11.5-15.5) % Neutrophils # (1.3-7.7) k/uL Lymphocytes # (1.0-4.8) k/uL D-Dimer (<0.60) mg/L FEU ABG pH (7.35-7.45) ABG pCO2 (35-45) mmHg ABG pO2 (83-108) mmHg ABG O2 Saturation (94-97) % Chloride (98-107) mmol/L BUN (7-17) mg/dL Glucose (74-99) mg/dL POC Glucose (mg/dL) 185 H 121 H (75-99) mg/dL Calcium (8.4-10.2) mg/dL Ferritin 850.4 H (10.0-291.0) ng/mL ALT (4-34) U/L C-Reactive Protein (<10.0) mg/L Total Protein (6.3-8.2) g/dL Albumin (3.5-5.0) g/dL 03/31/20 04/01/20 04/01/20 Range/Units 23:59 04:09 04:10 RBC 3.17 L (3.80-5.40) m/uL Hgb 8.9 L (11.4-16.0) gm/dL Hct 28.7 L (34.0-46.0) % RDW 16.7 H (11.5-15.5) % Neutrophils # 9.8 H (1.3-7.7) k/uL Lymphocytes # 0.3 L (1.0-4.8) k/uL D-Dimer (<0.60) mg/L FEU ABG pH (7.35-7.45) ABG pCO2 (35-45) mmHg ABG pO2 (83-108) mmHg ABG O2 Saturation (94-97) % Chloride (98-107) mmol/L BUN (7-17) mg/dL Glucose (74-99) mg/dL POC Glucose (mg/dL) 147 H 138 H (75-99) mg/dL Calcium (8.4-10.2) mg/dL Ferritin (10.0-291.0) ng/mL ALT (4-34) U/L C-Reactive Protein (<10.0) mg/L Total Protein (6.3-8.2) g/dL Albumin (3.5-5.0) g/dL 04/01/20 04/01/20 04/01/20 Range/Units 04:10 04:10 04:48 RBC (3.80-5.40) m/uL Hgb (11.4-16.0) gm/dL Hct (34.0-46.0) % RDW (11.5-15.5) % Neutrophils # (1.3-7.7) k/uL Lymphocytes # (1.0-4.8) k/uL D-Dimer 2.42 H (<0.60) mg/L FEU ABG pH 7.46 H (7.35-7.45) ABG pCO2 32 L (35-45) mmHg ABG pO2 67 L (83-108) mmHg ABG O2 Saturation 93.9 L (94-97) % Chloride 115 H (98-107) mmol/L BUN 33 H (7-17) mg/dL Glucose 125 H (74-99) mg/dL POC Glucose (mg/dL) (75-99) mg/dL Calcium 7.2 L (8.4-10.2) mg/dL Ferritin 618.3 H (10.0-291.0) ng/mL ALT 138 H (4-34) U/L C-Reactive Protein 26.8 H (<10.0) mg/L Total Protein 4.9 L (6.3-8.2) g/dL Albumin 2.1 L (3.5-5.0) g/dL 04/01/20 04/01/20 Range/Units 10:01 12:29 RBC (3.80-5.40) m/uL Hgb (11.4-16.0) gm/dL Hct (34.0-46.0) % RDW (11.5-15.5) % Neutrophils # (1.3-7.7) k/uL Lymphocytes # (1.0-4.8) k/uL D-Dimer (<0.60) mg/L FEU ABG pH (7.35-7.45) ABG pCO2 (35-45) mmHg ABG pO2 (83-108) mmHg ABG O2 Saturation (94-97) % Chloride (98-107) mmol/L BUN (7-17) mg/dL Glucose (74-99) mg/dL POC Glucose (mg/dL) 149 H 146 H (75-99) mg/dL Calcium (8.4-10.2) mg/dL Ferritin (10.0-291.0) ng/mL ALT (4-34) U/L C-Reactive Protein (<10.0) mg/L Total Protein (6.3-8.2) g/dL Albumin (3.5-5.0) g/dL Microbiology - Last 24 Hours (Table) 03/25/20 11:58 Blood Culture - Final Blood No Growth after 144 hours Assessment and Plan Assessment: Acute hypoxic respiratory failure Covid19 pneumonia Acute pneumonia bacterial bilateral healthcare associated Thrombocytopenia Acute respiratory and metabolic acidosis Acute hepatitis/elevated liver enzymes Acute diastolic heart failure Chronic anemia Fibromyalgia Hypertension hypertensive cardiovascular disease Plan: Continue gentle diuresis Ventilator support adjustment of ventilator as per clinical response and arterial blood gases, will attempt weaning trial starting later on today if remains stable IV antibiotics broad-spectrum IV Lasix 20 mg daily keep on negative side Sputum culture and blood culture Enteral nutrition via tube feeding Trend liver enzymes Patient is not a candidate for IV REMdesivir IV steroids Further recommendations pending plan of care as per clinical response of patient Continue anticoagulation with Lovenox We will hold Propofol today if remains stable consider weaning trial with CPAP and pressure support Time with Patient: Greater than 30
[2020-04-01 15:49] LABS: Glucose,Whole Blood 141 mg/dL (75-99)
[2020-04-01 20:04] LABS: Glucose,Whole Blood 170 mg/dL (75-99)
--- NOTE | 2020-04-01 21:58 | PN ---
PROGRESS NOTE DATE OF SERVICE: 04/01/2020 REASON FOR FOLLOWUP: Pneumonia. INTERVAL HISTORY: The patient is currently afebrile. The patient is hemodynamically stable. FiO2 is currently stable at 40%. No significant purulent secretions through the ET or diarrhea reported by nursing staff. Patient remains intubated on the vent and is unable to provide any history. PHYSICAL EXAMINATION: Blood pressure 142/70 with a pulse of 64, temperature 98.4. She is 94 % on 40% FiO2. General description is an elderly female lying in bed in no distress. RESPIRATORY SYSTEM: Unlabored breathing with decreased intensity of breath sounds. No wheeze. HEART: S1, S2. Regular rate and rhythm. ABDOMEN: Soft. No tenderness. LABS: Hemoglobin is 8.9, white count 10.4, BUN 33, creatinine 0.60. CRP is 26.8. Sputum culture negative. Blood culture so far negative. DIAGNOSTIC IMPRESSION AND PLAN: Patient with acute respiratory failure which is multifactorial in this patient with recent COVID-19 pneumonia with biphasic illness, concern for possible ARDS. Pneumonia Not entirely excluded. Sputum has been negative. Patient is currently on cefepime, Lovenox and Solu-Medrol; to continue and monitor clinical course closely. Continue with supportive care. MMODL / IJN: [id number] / HÉCTOR
[2020-04-01 23:23] LABS: Glucose,Whole Blood 187 mg/dL (75-99)
[2020-04-02] MEDS: HYDROmorphone 1 MG/ML 1 ML SYRINGE IVP PRN (01:58)
[2020-04-02 04:10] LABS: Glucose,Whole Blood 165 mg/dL (75-99)
[2020-04-02] MEDS: INSULIN ASPART (NovoLOG) 100 UNIT/ML VIAL SQ SCH ×5 (04:14→20:23)
[2020-04-02 04:47] LABS: Anisocytosis Slight; Basophils % (A) 0 %; Eosinophils % (A) 0 %; HCT 28.8 % (34.0-46.0); HGB 8.9 gm/dL (11.4-16.0); Hypochromasia Marked; Lymphocytes # (A) 0.3 k/uL (1.0-4.8); Lymphocytes % (A) 4 %; MCH 27.9 pg (25.0-35.0); MCHC 30.9 g/dL (31.0-37.0); MCV 90.5 fL (80.0-100.0); Monocytes # (A) 0.4 k/uL (0-1.0); Monocytes % (A) 4 %; Neutrophils # (A) 7.9 k/uL (1.3-7.7); Neutrophils % (A) 92 %; Platelet Count 274 k/uL (150-450); Poikilocytosis Moderate; RBC 3.18 m/uL (3.80-5.40); WBC 8.6 k/uL (3.8-10.6)
[2020-04-02 05:02] LABS: ALT 104 U/L (4-34); AST 33 U/L (14-36); African American GFR (CKD) >90 (>60 ml/min/1.73 sqM); Albumin 2.1 g/dL (3.5-5.0); Alkaline Phosphatase 84 U/L (38-126); Anion Gap 3 mmol/L; Blood Urea Nitrogen 34 mg/dL (7-17); C Reactive Protein 21.1 mg/L (<10.0); Calcium 7.1 mg/dL (8.4-10.2); Carbon Dioxide 20 mmol/L (22-30); Chloride 114 mmol/L (98-107); Glucose 151 mg/dL (74-99); Non-African American GFR(CKD) >90 (>60 ml/min/1.73 sqM); Potassium 4.3 mmol/L (3.5-5.1); Sodium 137 mmol/L (137-145); Total Bilirubin 0.5 mg/dL (0.2-1.3)
[2020-04-02 05:12] LABS: ABG Base Excess -3.5 mmol/L; ABG HCO3 21 mmol/L (21-25); ABG Oxygen Saturation 95.1 % (94-97); ABG PCO2 32 mmHg (35-45); ABG PH 7.43 (7.35-7.45); ABG PO2 76 mmHg (83-108); ABG TCO2 22 mmol/L (19-24); Allen Test Performed? Yes
[2020-04-02] MEDS: methylPREDNISolone SOD SUCCI 125 MG/2 ML VIAL IV SCH ×3 (06:07→18:10)
--- NOTE | 2020-04-02 07:07 | XR ---
EXAMINATION TYPE: XR chest 1V DATE OF EXAM: 04/02/2020 COMPARISON: 04/01/2020 HISTORY: SOB, Follow Up FINDINGS: Indwelling tubes and catheters are unchanged. Patchy bilateral pulmonary infiltrates persist without significant interval change. Stable appearance of the cardio-mediastinal structures at this time. IMPRESSION: 1. Stable portable chest. Clinical correlation and follow up until resolution is recommended.
[2020-04-02 07:56] LABS: Glucose,Whole Blood 155 mg/dL (75-99)
--- NOTE | 2020-04-02 09:10 | P.PN ---
Subjective Progress Note Date: 04/02/20 (Critical care time 35 minutes) Principal diagnosis: Acute hypoxic respiratory failure Covid19 pneumonia Acute respiratory and metabolic acidosis Acute hepatitis/elevated liver enzymes Acute diastolic heart failure and fluid overload Chronic anemia Fibromyalgia Hypertension hypertensive cardiovascular disease 04/02/2020, patient seen eval examined during the rounds labs reviewed medications reviewed care plan discussed, patient remains sedated with propofol on ventilator for full ventilator support, currently patient is on assist control mode rate Tuesday for breathing 24, tidal volume is 450, 5 of PEEP, 40% oxygen, propofol is 50 mics, chest x-ray from today reviewed continue show patchy bilateral infiltrate without any significant interval change, arterial blood gases revealed pH of 7.43 pCO2 32, C-reactive protein is down to 21, BUN/creatinine is 34/.49, white cell count and hemoglobin remained stable, medications reviewed, she remains on broad-spectrum antibiotic with cephapirin, Lovenox, gentle diuresis with Lasix, blood pressure control with IV hydralazine, patient remains on high-dose IV steroids, discussed with the staff at length, will stop the propofol drip and once patient is awake put on CPAP 5 pressure support of 5 gas after half an hour also check weaning parameters 04/01/2020, patient seen eval examined labs reviewed medications reviewed care plan discussed with the staff at length patient had a sedation holiday today she is arousable and awake follows simple commands with blood pressure went up becomes agitated anxious requiring a reinitiation of propofol drip, ventilator setting remains unchanged, patient is on rate of 24 tidal volume is 450, PEEP is 5, oxygen is 40%, chest x-ray from today reviewed remains overall stable with stable lines and tubes 03/31/2020, patient seen eval examined during the rounds labs reviewed med ications reviewed care plan discussed, patient remains on full ventilator support, propofol was changed to Precedex but however patient becomes agitated so back on propofol when setting remains unchanged have been on assist control rate of 24, PEEP is 5, FiO2 is 40%, tidal volume of 450, care plan discussed with the staff at length critical care time 35 minutes 03/30/2020, patient seen eval examined during the rounds labs reviewed medications reviewed, remains sedated with propofol, current vent setting include his control rate of 24 breathing 24 tidal volume is 450, deep is 5 now, FiO2 is 40%, tolerating tube feed very well, chest x-ray reviewed slightly better but stable bilateral infiltrate consistent with atypical pneumonia, patient continued IVs very well with 20 mg Lasix daily, white cell count remained stable, with stable hemoglobin and however decreasing platelet count noted, dear blood gases revealed pH of 7.4 to pCO2 34 pO2 of 62, BUN/creatinine is 36 and 0.62, left he continue show downward trend, inflammatory markers reviewed still elevated but showing a downward trend 03/29/2020, patient seen eval examined during the rounds labs reviewed medications reviewed, care plan discussed with the nursing staff at length, patient has been on assist control rate of the 24 PEEP of 8 400 tidal volume 50% oxygen, ventilator has been adjusted with reduction in PEEP and oxygen, patient's saturation remained stable 91-92%, next step he is to stop propofol and reassess the mental status and if patient remains stable oxygen randolph and hemodynamics can do a CPAP pressure support trial in the meantime we'll continue IV steroids, antibiotics, CBC and ABG reviewed, today's chest x-ray showed bilateral interstitial infiltrate, predominantly at the bases, patient has been on Lasix 20 mg daily diuresing very well, critical care time 35 minutes 03/28/2020, patient seen eval examined during the rounds labs reviewed medications reviewed care plan discussed oxygen has been down to 40% now. The patient is PEEP of 8, otherwise ventilator setting remains stable, patient is scheduled for PICC line later on today, remains on propofol, remains on broad- spectrum antibiotics, labs from today has been reviewed hemoglobin is stable 7.9, d-dimer is 3.24, arterial blood gases stable pH is 7.41 pCO2 35 pO2 96, BUN/creatinine is 51 and 1.05, ferritin level remains more than 26,000, AST ALT continued decline however today is 367 and 558, C-reactive protein checked 69.5 her chest x-ray earlier than today remains there however appears to have slightly progressed 03/27/2020, patient seen eval examined during the rounds labs reviewed medications reviewed care plan discussed, propofol has been discontinued patient because very restless and anxious, we'll restart propofol, patient has been on full ventilator support assist control 24 tidal volume of 450, PEEP is 10, oxygen is 70%, arterial blood gases reviewed when lower the FiO2 to 60% now plan to bring down the FiO2 to 50% and PEEP of 8 next 24 hours, sputum and blood cultures reviewed no growth so far, chest x-ray performed today reviewed significant improvement in infiltrates seen bilaterally, patient has a poor urine output throughout the night, 20 mg of Lasix was given put out 600 mL of urine patient continued to be on gentle hydration, remain on cefapime and Vanco, Lovenox Solu-Medrol multivitamin and vitamin C zinc and Lovenox, white cell count is stable 10,500 hemoglobin and hematocrit 7.2 and 24, general surgery has been following patient is considered to get EGD and colonoscopy once stable, arterial blood gas revealed pH of 7.39 pCO2 of 39 pO2 of 124, bicarb 25, liver enzymes continue to come down AST and ALT now is 944/809, hepatitis panel normal and nonreactive 03/26/2020, patient seen eval examined in the ICU care plan discussed with the staff, FiO2 has been down to 60%, patient remains on assist control tidal volume of 450, PEEP is 10, respiratory rate is 24 breathing with the respirator pH has been improved significantly, patient is making adequate urine chest x-ray compared with yesterday's x-ray some improvement have been noted, white cell count is 11,000, hemoglobin 7.9 which is stable, arterial blood gas improved to 7.39, pCO2 of 40, pO2 112, BUN/creatinine is 33/0.96, lactic acid was 5.9 down to 1.3 now, ferritin level noted to be 12,800, AST and ALT are 4014 100 with LDH over 21,500, today LFTs significantly improved AST is down to 2795 and ALT is 1222, pro calcitonin is 0.84, suspect some component of heart failure as well as pneumonia, will get an echocardiogram as well as start patient on broad-spectrum antibiotics with cefepime and Vanco Patient seen and evaluated examined in the emergency department, patient came into the ER from the office of Dr. Aleman due to progressive shortness of breath, patient has acute on chronic hypoxic respiratory failure on 4 L oxygen, also has issues associated with pneumonia presumed to be cold with 19, however, testing was negative, patient used to smoke in the remote past quit about 20-30 years ago due to severity or shortness of breath and hypoxia with saturation of 76% on 100% oxygen and respiratory distress patient was intubated due to poor tolerance on BiPAP, patient Covid testing came back positive, chest x-ray show ing diffuse infiltrate she also has been noted to have elevated liver enzymes due to elevated liver enzymes will not start IV REMdesivir, Initial ABG pH is 7.18, pCO2 is 63 pO2 was only 33 Objective - Vital Signs Vital signs: Vital Signs Temp 97.8 F 04/02/20 04:00 Pulse 55 L 04/02/20 07:00 Resp 24 04/02/20 07:00 BP 156/76 04/02/20 07:00 Pulse Ox 97 04/02/20 07:00 Intake & Output 04/01/20 04/02/20 04/02/20 18:59 06:59 18:59 Intake Total 7183.253 7841.552 100 Output Total 1375 650 35 Balance 122.578 1031.552 65 Weight 85.6 kg 86.9 kg Intake: IV 1300 1270 100 0.9 NaCl- 1200 1170 100 Cefepime 2 gm In Sodium 100 100 Chloride 0.9% 100 ml @ 25 mls/hr IVPB Q12HR [facility] Rx #:[id number] Intake, IV Titration 278.647 328.552 Amount propofoL 1,000 mg In 278.647 328.552 Empty Bag 1 bag @ Titrate IV .Q0M [facility] Rx#: [id number] Tube Feeding 100 160 Other 50 50 Output: Urine 1375 650 35 Other: Voiding Method Indwelling Catheter Indwelling Catheter # Voids 20 - Exam Intubated sedated with propofol - Constitutional General appearance: average body habitus, mild distress - EENT Ears: bilateral: normal - Neck Carotids: bilateral: upstroke normal Thyroid: bilateral: normal size - Respiratory Respiratory: bilateral: diminished - Cardiovascular Rhythm: regular Heart sounds: normal: S1, S2 - Gastrointestinal General gastrointestinal: normal bowel sounds Sedated with propofol on full ventilator support with 40 % oxygen and assist control mode - Labs CBC & Chem 7: 04/02/20 04:00 04/02/20 04:00 Labs: Abnormal Lab Results - Last 24 Hours (Table) 04/01/20 04/01/20 04/01/20 Range/Units 04:10 10:01 12:29 RBC (3.80-5.40) m/uL Hgb (11.4-16.0) gm/dL Hct (34.0-46.0) % MCHC (31.0-37.0) g/dL RDW (11.5-15.5) % Neutrophils # (1.3-7.7) k/uL Lymphocytes # (1.0-4.8) k/uL ABG pCO2 (35-45) mmHg ABG pO2 (83-108) mmHg Chloride (98-107) mmol/L Carbon Dioxide (22-30) mmol/L BUN (7-17) mg/dL Creatinine (0.52-1.04) mg/dL Glucose (74-99) mg/dL POC Glucose (mg/dL) 149 H 146 H (75-99) mg/dL Calcium (8.4-10.2) mg/dL Ferritin 618.3 H (10.0-291.0) ng/mL ALT (4-34) U/L C-Reactive Protein (<10.0) mg/L Total Protein (6.3-8.2) g/dL Albumin (3.5-5.0) g/dL 04/01/20 04/01/20 04/01/20 Range/Units 15:47 20:00 23:20 RBC (3.80-5.40) m/uL Hgb (11.4-16.0) gm/dL Hct (34.0-46.0) % MCHC (31.0-37.0) g/dL RDW (11.5-15.5) % Neutrophils # (1.3-7.7) k/uL Lymphocytes # (1.0-4.8) k/uL ABG pCO2 (35-45) mmHg ABG pO2 (83-108) mmHg Chloride (98-107) mmol/L Carbon Dioxide (22-30) mmol/L BUN (7-17) mg/dL Creatinine (0.52-1.04) mg/dL Glucose (74-99) mg/dL POC Glucose (mg/dL) 141 H 170 H 187 H (75-99) mg/dL Calcium (8.4-10.2) mg/dL Ferritin (10.0-291.0) ng/mL ALT (4-34) U/L C-Reactive Protein (<10.0) mg/L Total Protein (6.3-8.2) g/dL Albumin (3.5-5.0) g/dL 04/02/20 04/02/20 04/02/20 Range/Units 04:00 04:00 04:08 RBC 3.18 L (3.80-5.40) m/uL Hgb 8.9 L (11.4-16.0) gm/dL Hct 28.8 L (34.0-46.0) % MCHC 30.9 L (31.0-37.0) g/dL RDW 17.0 H (11.5-15.5) % Neutrophils # 7.9 H (1.3-7.7) k/uL Lymphocytes # 0.3 L (1.0-4.8) k/uL ABG pCO2 (35-45) mmHg ABG pO2 (83-108) mmHg Chloride 114 H (98-107) mmol/L Carbon Dioxide 20 L (22-30) mmol/L BUN 34 H (7-17) mg/dL Creatinine 0.49 L (0.52-1.04) mg/dL Glucose 151 H (74-99) mg/dL POC Glucose (mg/dL) 165 H (75-99) mg/dL Calcium 7.1 L (8.4-10.2) mg/dL Ferritin (10.0-291.0) ng/mL ALT 104 H (4-34) U/L C-Reactive Protein 21.1 H (<10.0) mg/L Total Protein 5.0 L (6.3-8.2) g/dL Albumin 2.1 L (3.5-5.0) g/dL 04/02/20 04/02/20 Range/Units 04:54 07:55 RBC (3.80-5.40) m/uL Hgb (11.4-16.0) gm/dL Hct (34.0-46.0) % MCHC (31.0-37.0) g/dL RDW (11.5-15.5) % Neutrophils # (1.3-7.7) k/uL Lymphocytes # (1.0-4.8) k/uL ABG pCO2 32 L (35-45) mmHg ABG pO2 76 L (83-108) mmHg Chloride (98-107) mmol/L Carbon Dioxide (22-30) mmol/L BUN (7-17) mg/dL Creatinine (0.52-1.04) mg/dL Glucose (74-99) mg/dL POC Glucose (mg/dL) 155 H (75-99) mg/dL Calcium (8.4-10.2) mg/dL Ferritin (10.0-291.0) ng/mL ALT (4-34) U/L C-Reactive Protein (<10.0) mg/L Total Protein (6.3-8.2) g/dL Albumin (3.5-5.0) g/dL Assessment and Plan Assessment: Acute hypoxic respiratory failure Covid19 pneumonia Acute pneumonia bacterial bilateral healthcare associated Thrombocytopenia Acute respiratory and metabolic acidosis Acute hepatitis/elevated liver enzymes Acute diastolic heart failure Chronic anemia Fibromyalgia Hypertension hypertensive cardiovascular disease Plan: Continue gentle diuresis Ventilator support adjustment of ventilator as per clinical response and arterial blood gases, will attempt weaning trial starting later on today if remains stable IV antibiotics broad-spectrum IV Lasix 20 mg daily keep on negative side Follow-up on Sputum culture and blood culture Enteral nutrition via tube feeding Trend liver enzymes Patient is not a candidate for IV REMdesivir due to markedly elevated liver enzymes IV steroids Further recommendations pending plan of care as per clinical response of patient Continue anticoagulation with Lovenox We will hold Propofol today if remains stable consider weaning trial with CPAP and pressure support Time with Patient: Greater than 30
[2020-04-02] MEDS: SODIUM CHLORIDE 0.9% 1,000 ML IV SCH ×2 (09:21→16:02)
[2020-04-02] MEDS: CHLORHEXIDINE GLUCONATE 15 ML CUP MUCOUS MEM SCH ×2 (09:37→21:24)
[2020-04-02] MEDS: PANTOPRAZOLE 40 MG/10 ML VIAL IVP SCH ×2 (09:37→21:24)
[2020-04-02] MEDS: CHOLECALCIFEROL 400 UNIT TAB PO SCH (09:37)
[2020-04-02] MEDS: CEFEPIME 2 GM in SODIUM CHLORIDE 0.9% 100 ML IVPB SCH ×2 (09:37→21:24)
[2020-04-02] MEDS: ENOXAPARIN 40 MG/0.4 ML SYRINGE SQ SCH ×2 (09:37→21:24)
[2020-04-02] MEDS: FUROSEMIDE 10 MG/ML 2 ML VIAL IV SCH (09:37)
[2020-04-02] MEDS: ASCORBIC ACID 500 MG TAB PO SCH ×2 (09:38→21:24)
[2020-04-02] MEDS: ZINC SULFATE 220 MG CAP PO SCH (09:38)
[2020-04-02 09:58] LABS: Ferritin 565.2 ng/mL (10.0-291.0)
--- NOTE | 2020-04-02 11:00 | P.PN ---
<Ana Parks - Last Filed: 04/02/20 10:57> Subjective Progress Note Date: 04/02/20 CHIEF COMPLAINT: GI bleed HISTORY OF PRESENT ILLNESS: Patient is currently hospitalized for respiratory failure and is COVID positive. She is currently in the ICU and intubated. She is being followed for her GI bleed. She is tolerating her tube feeds through the NG tube. Patient had no stool yesterday. Afebrile. Hemoglobin remained stable at 8.9. WBC 8.6. AST 33 and ALT 104 She is undergoing a sedation holiday today PHYSICAL EXAM: VITAL SIGNS: Reviewed. GENERAL: Well-developed in no acute distress. HEENT: No sclera icterus. Extraocular movements grossly intact. Moist buccal mucosa. Head is atraumatic, normocephalic. ABDOMEN: Soft. Nondistended. Nontender. NEUROLOGIC: Patient is intubated. She is able to open her eyes and is awake ASSESSMENT: 1. Acute GI bleed 2. Acute on chronic blood loss anemia 3. Elevated liver enzymes with large gallstone present on abdominal ultrasound 4. Acute hypoxic respiratory failure requiring intubation 5. COVID positive PLAN: -Continue supportive care -Continue to titrate to feedings per dietitian recommendations -Continue to monitor hemoglobin -Dr. Henry will proceed with upper and lower endoscopy when stable Physician Sterile Proc Tech note has been reviewed by physician. Signing provider agrees with the documented findings, assessment, and plan of care. Objective - Vital Signs Vital signs: Vital Signs Temp 97.4 F L 04/02/20 08:00 Pulse 65 04/02/20 10:00 Resp 24 04/02/20 10:00 BP 153/68 04/02/20 10:00 Pulse Ox 97 04/02/20 10:00 Intake & Output 04/01/20 04/02/20 04/02/20 18:59 06:59 18:59 Intake Total 9366.804 9911.552 618.596 Output Total 1375 650 180 Balance 056.377 3956.552 438.596 Weight 85.6 kg 86.9 kg Intake: IV 1300 1270 400 0.9 NaCl- 1200 1170 400 Cefepime 2 gm In Sodium 100 100 Chloride 0.9% 100 ml @ 25 mls/hr IVPB Q12HR [facility] Rx #:[id number] Intake, IV Titration 278.647 328.552 88.596 Amount propofoL 1,000 mg In 278.647 328.552 88.596 Empty Bag 1 bag @ Titrate IV .Q0M [facility] Rx#: [id number] Tube Feeding 100 160 100 Other 50 50 30 Output: Urine 1375 650 180 Other: Voiding Method Indwelling Catheter Indwelling Catheter Indwelling Catheter # Voids 20 - Labs CBC & Chem 7: 04/02/20 04:00 04/02/20 04:00 Labs: Abnormal Lab Results - Last 24 Hours (Table) 04/01/20 04/01/20 04/01/20 Range/Units 12:29 15:47 20:00 RBC (3.80-5.40) m/uL Hgb (11.4-16.0) gm/dL Hct (34.0-46.0) % MCHC (31.0-37.0) g/dL RDW (11.5-15.5) % Neutrophils # (1.3-7.7) k/uL Lymphocytes # (1.0-4.8) k/uL ABG pCO2 (35-45) mmHg ABG pO2 (83-108) mmHg Chloride (98-107) mmol/L Carbon Dioxide (22-30) mmol/L BUN (7-17) mg/dL Creatinine (0.52-1.04) mg/dL Glucose (74-99) mg/dL POC Glucose (mg/dL) 146 H 141 H 170 H (75-99) mg/dL Calcium (8.4-10.2) mg/dL Ferritin (10.0-291.0) ng/mL ALT (4-34) U/L C-Reactive Protein (<10.0) mg/L Total Protein (6.3-8.2) g/dL Albumin (3.5-5.0) g/dL 04/01/20 04/02/20 04/02/20 Range/Units 23:20 04:00 04:00 RBC 3.18 L (3.80-5.40) m/uL Hgb 8.9 L (11.4-16.0) gm/dL Hct 28.8 L (34.0-46.0) % MCHC 30.9 L (31.0-37.0) g/dL RDW 17.0 H (11.5-15.5) % Neutrophils # 7.9 H (1.3-7.7) k/uL Lymphocytes # 0.3 L (1.0-4.8) k/uL ABG pCO2 (35-45) mmHg ABG pO2 (83-108) mmHg Chloride 114 H (98-107) mmol/L Carbon Dioxide 20 L (22-30) mmol/L BUN 34 H (7-17) mg/dL Creatinine 0.49 L (0.52-1.04) mg/dL Glucose 151 H (74-99) mg/dL POC Glucose (mg/dL) 187 H (75-99) mg/dL Calcium 7.1 L (8.4-10.2) mg/dL Ferritin 565.2 H (10.0-291.0) ng/mL ALT 104 H (4-34) U/L C-Reactive Protein 21.1 H (<10.0) mg/L Total Protein 5.0 L (6.3-8.2) g/dL Albumin 2.1 L (3.5-5.0) g/dL 04/02/20 04/02/20 04/02/20 Range/Units 04:08 04:54 07:55 RBC (3.80-5.40) m/uL Hgb (11.4-16.0) gm/dL Hct (34.0-46.0) % MCHC (31.0-37.0) g/dL RDW (11.5-15.5) % Neutrophils # (1.3-7.7) k/uL Lymphocytes # (1.0-4.8) k/uL ABG pCO2 32 L (35-45) mmHg ABG pO2 76 L (83-108) mmHg Chloride (98-107) mmol/L Carbon Dioxide (22-30) mmol/L BUN (7-17) mg/dL Creatinine (0.52-1.04) mg/dL Glucose (74-99) mg/dL POC Glucose (mg/dL) 165 H 155 H (75-99) mg/dL Calcium (8.4-10.2) mg/dL Ferritin (10.0-291.0) ng/mL ALT (4-34) U/L C-Reactive Protein (<10.0) mg/L Total Protein (6.3-8.2) g/dL Albumin (3.5-5.0) g/dL <William Henry - Last Filed: 04/02/20 11:20> Subjective As above. Patient slightly improved. Hemoglobin remained stable. Tolerating tube feeds. Ventilatory weaning likely to begin soon. We'll follow. Objective - Vital Signs Vital signs: Vital Signs Temp 97.4 F L 04/02/20 08:00 Pulse 65 04/02/20 10:00 Resp 24 04/02/20 10:00 BP 153/68 04/02/20 10:00 Pulse Ox 97 04/02/20 10:00 Intake & Output 04/01/20 04/02/20 04/02/20 18:59 06:59 18:59 Intake Total 7303.361 0137.552 618.596 Output Total 1375 650 180 Balance 564.503 7827.552 438.596 Weight 85.6 kg 86.9 kg Intake: IV 1300 1270 400 0.9 NaCl- 1200 1170 400 Cefepime 2 gm In Sodium 100 100 Chloride 0.9% 100 ml @ 25 mls/hr IVPB Q12HR [facility] Rx #:[id number] Intake, IV Titration 278.647 328.552 88.596 Amount propofoL 1,000 mg In 278.647 328.552 88.596 Empty Bag 1 bag @ Titrate IV .Q0M [facility] Rx#: [id number] Tube Feeding 100 160 100 Other 50 50 30 Output: Urine 1375 650 180 Other: Voiding Method Indwelling Catheter Indwelling Catheter Indwelling Catheter # Voids 20 - Labs CBC & Chem 7: 04/02/20 04:00 04/02/20 04:00 Labs: Abnormal Lab Results - Last 24 Hours (Table) 04/01/20 04/01/20 04/01/20 Range/Units 12:29 15:47 20:00 RBC (3.80-5.40) m/uL Hgb (11.4-16.0) gm/dL Hct (34.0-46.0) % MCHC (31.0-37.0) g/dL RDW (11.5-15.5) % Neutrophils # (1.3-7.7) k/uL Lymphocytes # (1.0-4.8) k/uL ABG pCO2 (35-45) mmHg ABG pO2 (83-108) mmHg Chloride (98-107) mmol/L Carbon Dioxide (22-30) mmol/L BUN (7-17) mg/dL Creatinine (0.52-1.04) mg/dL Glucose (74-99) mg/dL POC Glucose (mg/dL) 146 H 141 H 170 H (75-99) mg/dL Calcium (8.4-10.2) mg/dL Ferritin (10.0-291.0) ng/mL ALT (4-34) U/L C-Reactive Protein (<10.0) mg/L Total Protein (6.3-8.2) g/dL Albumin (3.5-5.0) g/dL 04/01/20 04/02/20 04/02/20 Range/Units 23:20 04:00 04:00 RBC 3.18 L (3.80-5.40) m/uL Hgb 8.9 L (11.4-16.0) gm/dL Hct 28.8 L (34.0-46.0) % MCHC 30.9 L (31.0-37.0) g/dL RDW 17.0 H (11.5-15.5) % Neutrophils # 7.9 H (1.3-7.7) k/uL Lymphocytes # 0.3 L (1.0-4.8) k/uL ABG pCO2 (35-45) mmHg ABG pO2 (83-108) mmHg Chloride 114 H (98-107) mmol/L Carbon Dioxide 20 L (22-30) mmol/L BUN 34 H (7-17) mg/dL Creatinine 0.49 L (0.52-1.04) mg/dL Glucose 151 H (74-99) mg/dL POC Glucose (mg/dL) 187 H (75-99) mg/dL Calcium 7.1 L (8.4-10.2) mg/dL Ferritin 565.2 H (10.0-291.0) ng/mL ALT 104 H (4-34) U/L C-Reactive Protein 21.1 H (<10.0) mg/L Total Protein 5.0 L (6.3-8.2) g/dL Albumin 2.1 L (3.5-5.0) g/dL 04/02/20 04/02/20 04/02/20 Range/Units 04:08 04:54 07:55 RBC (3.80-5.40) m/uL Hgb (11.4-16.0) gm/dL Hct (34.0-46.0) % MCHC (31.0-37.0) g/dL RDW (11.5-15.5) % Neutrophils # (1.3-7.7) k/uL Lymphocytes # (1.0-4.8) k/uL ABG pCO2 32 L (35-45) mmHg ABG pO2 76 L (83-108) mmHg Chloride (98-107) mmol/L Carbon Dioxide (22-30) mmol/L BUN (7-17) mg/dL Creatinine (0.52-1.04) mg/dL Glucose (74-99) mg/dL POC Glucose (mg/dL) 165 H 155 H (75-99) mg/dL Calcium (8.4-10.2) mg/dL Ferritin (10.0-291.0) ng/mL ALT (4-34) U/L C-Reactive Protein (<10.0) mg/L Total Protein (6.3-8.2) g/dL Albumin (3.5-5.0) g/dL Assessment and Plan (1) GI bleed Current Visit: Yes Status: Acute Code(s): K92.2 - GASTROINTESTINAL HEMORRHAGE, UNSPECIFIED SNOMED Code(s): 38036499
[2020-04-02 12:32] LABS: Glucose,Whole Blood 182 mg/dL (75-99)
--- NOTE | 2020-04-02 15:30 | PN ---
PROGRESS NOTE DATE OF SERVICE: 04/03/2020 REASON FOR FOLLOWUP: Pneumonia. INTERVAL HISTORY: The patient is currently afebrile. The patient is hemodynamically stable. FiO2 is currently stable. Tolerating her tube feeds and no diarrhea according to the nursing staff. PHYSICAL EXAMINATION: Blood pressure 140/68 with a pulse of 70, temperature is 97.9, she is 95% on 4 L. General description is an elderly female, lying in bed in no distress. RESPIRATORY SYSTEM: Unlabored breathing, clear to auscultation, no wheeze. HEART: S1, S2. Regular rate and rhythm. ABDOMEN: Soft, no tenderness. EXTREMITIES: 2+ edema of the feet. Left knee incision clean. LABS: White count of 8, hemoglobin of 8.3, BUN of 24, creatinine 0.49. DIAGNOSTIC IMPRESSION AND PLAN: Patient with acute respiratory failure which is multifactorial COVID-19. The patient is currently on dexamethasone Lovenox, zinc to continue and monitor clinical course closely. MMODL / IJN: [id number] / MTDD
[2020-04-02 16:21] LABS: Glucose,Whole Blood 147 mg/dL (75-99)
[2020-04-02 19:59] LABS: Glucose,Whole Blood 209 mg/dL (75-99)
--- NOTE | 2020-04-02 21:33 | P.PN ---
Subjective Principal diagnosis: This is a continue progress note on 6-year-old white female with history of chronic anemia who is admitted for respiratory failure related to Covid pneumonia. The patient is intubated but has had some rectal bleeding. We will go ahead and type and screen for one unit. Otherwise appreciate multiple consultants input. The patient continues to be intubated at FIO2 of 40 percent. I am hopeful that the patient could possibly be weaned soon. However, given Covid elements, this has been difficult. Objective - Vital Signs Vital signs: Vital Signs Temp 98.6 F 04/02/20 16:00 Pulse 70 04/02/20 19:00 Resp 24 04/02/20 19:00 BP 138/65 04/02/20 19:00 Pulse Ox 96 04/02/20 19:00 Intake & Output 04/02/20 04/02/20 04/03/20 06:59 18:59 06:59 Intake Total 4469.228 7035.631 100 Output Total 650 1470 40 Balance 1158.552 420.631 60 Weight 86.9 kg Intake: IV 1270 1200 100 0.9 NaCl- 1170 1200 100 Cefepime 2 gm In Sodium 100 Chloride 0.9% 100 ml @ 25 mls/hr IVPB Q12HR [facility] Rx #:[id number] Intake, IV Titration 328.552 300.631 Amount propofoL 1,000 mg In 328.552 300.631 Empty Bag 1 bag @ Titrate IV .Q0M [facility] Rx#: [id number] Tube Feeding 160 300 Other 50 90 Output: Urine 650 1470 40 Other: Voiding Method Indwelling Catheter Indwelling Catheter # Voids 20 # Bowel Movements 1 - Constitutional General appearance: Present: no acute distress - EENT Eyes: Absent: abnormal pupil - Neck Neck: Absent: lymphadenopathy - Respiratory Respiratory: bilateral: diminished - Cardiovascular Rhythm: regular Heart sounds: normal: S1, S2 Abnormal Heart Sounds: Absent: S3 Gallop - Gastrointestinal General gastrointestinal: Present: soft. Absent: tenderness - Psychiatric Psychiatric: Absent: A&O x's 3 - Labs CBC & Chem 7: 04/02/20 04:00 04/02/20 04:00 Labs: Abnormal Lab Results - Last 24 Hours (Table) 04/01/20 04/02/20 04/02/20 Range/Units 23:20 04:00 04:00 RBC 3.18 L (3.80-5.40) m/uL Hgb 8.9 L (11.4-16.0) gm/dL Hct 28.8 L (34.0-46.0) % MCHC 30.9 L (31.0-37.0) g/dL RDW 17.0 H (11.5-15.5) % Neutrophils # 7.9 H (1.3-7.7) k/uL Lymphocytes # 0.3 L (1.0-4.8) k/uL ABG pCO2 (35-45) mmHg ABG pO2 (83-108) mmHg Chloride 114 H (98-107) mmol/L Carbon Dioxide 20 L (22-30) mmol/L BUN 34 H (7-17) mg/dL Creatinine 0.49 L (0.52-1.04) mg/dL Glucose 151 H (74-99) mg/dL POC Glucose (mg/dL) 187 H (75-99) mg/dL Calcium 7.1 L (8.4-10.2) mg/dL Ferritin 565.2 H (10.0-291.0) ng/mL ALT 104 H (4-34) U/L C-Reactive Protein 21.1 H (<10.0) mg/L Total Protein 5.0 L (6.3-8.2) g/dL Albumin 2.1 L (3.5-5.0) g/dL 04/02/20 04/02/20 04/02/20 Range/Units 04:08 04:54 07:55 RBC (3.80-5.40) m/uL Hgb (11.4-16.0) gm/dL Hct (34.0-46.0) % MCHC (31.0-37.0) g/dL RDW (11.5-15.5) % Neutrophils # (1.3-7.7) k/uL Lymphocytes # (1.0-4.8) k/uL ABG pCO2 32 L (35-45) mmHg ABG pO2 76 L (83-108) mmHg Chloride (98-107) mmol/L Carbon Dioxide (22-30) mmol/L BUN (7-17) mg/dL Creatinine (0.52-1.04) mg/dL Glucose (74-99) mg/dL POC Glucose (mg/dL) 165 H 155 H (75-99) mg/dL Calcium (8.4-10.2) mg/dL Ferritin (10.0-291.0) ng/mL ALT (4-34) U/L C-Reactive Protein (<10.0) mg/L Total Protein (6.3-8.2) g/dL Albumin (3.5-5.0) g/dL 04/02/20 04/02/20 04/02/20 Range/Units 12:31 16:19 19:58 RBC (3.80-5.40) m/uL Hgb (11.4-16.0) gm/dL Hct (34.0-46.0) % MCHC (31.0-37.0) g/dL RDW (11.5-15.5) % Neutrophils # (1.3-7.7) k/uL Lymphocytes # (1.0-4.8) k/uL ABG pCO2 (35-45) mmHg ABG pO2 (83-108) mmHg Chloride (98-107) mmol/L Carbon Dioxide (22-30) mmol/L BUN (7-17) mg/dL Creatinine (0.52-1.04) mg/dL Glucose (74-99) mg/dL POC Glucose (mg/dL) 182 H 147 H 209 H (75-99) mg/dL Calcium (8.4-10.2) mg/dL Ferritin (10.0-291.0) ng/mL ALT (4-34) U/L C-Reactive Protein (<10.0) mg/L Total Protein (6.3-8.2) g/dL Albumin (3.5-5.0) g/dL Assessment and Plan (1) Acute respiratory distress syndrome Current Visit: Yes Status: Acute Code(s): J80 - ACUTE RESPIRATORY DISTRESS SYNDROME SNOMED Code(s): 28524471 (2) Anemia Current Visit: Yes Status: Acute Code(s): D64.9 - ANEMIA, UNSPECIFIED SNOMED Code(s): 487788999 (3) COVID-19 Current Visit: Yes Status: Acute Code(s): U07.1 - COVID-19 SNOMED Code(s): 978190230 (4) Pneumonia Current Visit: Yes Status: Acute Code(s): J18.9 - PNEUMONIA, UNSPECIFIED ORGANISM SNOMED Code(s): 577246855 (5) Fibromyalgia Current Visit: No Status: Acute Code(s): M79.7 - FIBROMYALGIA SNOMED Code(s): 336833324 Plan: Appropriate supportive care. Hopefully, we can start slowly weaning her off the vent if possible. Prognosis still Guarded due to her Covid 19. Check CBC and CMP in a.m. Appreciate multiple consultants input. See orders otherwise.
--- NOTE | 2020-04-02 21:46 | P.PN ---
Subjective Principal diagnosis: This is a continue progress note on 6-year-old white female with history of chronic anemia who is admitted for respiratory failure related to Covid pneumonia. The patient is intubated but has had some rectal bleeding. We will go ahead and type and screen for one unit. Otherwise appreciate multiple consultants input. The patient continues to be intubated at FIO2 of 40 percent. I am hopeful that the patient could possibly be weaned soon. However, given Covid elements, this has been difficult. Objective - Vital Signs Vital signs: Vital Signs Temp 98.6 F 04/02/20 16:00 Pulse 70 04/02/20 19:00 Resp 24 04/02/20 19:00 BP 138/65 04/02/20 19:00 Pulse Ox 96 04/02/20 19:00 Intake & Output 04/02/20 04/02/20 04/03/20 06:59 18:59 06:59 Intake Total 6957.942 4866.631 100 Output Total 650 1470 40 Balance 1158.552 420.631 60 Weight 86.9 kg Intake: IV 1270 1200 100 0.9 NaCl- 1170 1200 100 Cefepime 2 gm In Sodium 100 Chloride 0.9% 100 ml @ 25 mls/hr IVPB Q12HR [facility] Rx #:[id number] Intake, IV Titration 328.552 300.631 Amount propofoL 1,000 mg In 328.552 300.631 Empty Bag 1 bag @ Titrate IV .Q0M [facility] Rx#: [id number] Tube Feeding 160 300 Other 50 90 Output: Urine 650 1470 40 Other: Voiding Method Indwelling Catheter Indwelling Catheter # Voids 20 # Bowel Movements 1 - Constitutional General appearance: Present: average body habitus - EENT Eyes: Absent: abnormal pupil - Neck Neck: Absent: lymphadenopathy - Respiratory Respiratory: bilateral: diminished - Cardiovascular Rhythm: regular Heart sounds: normal: S1, S2 - Gastrointestinal General gastrointestinal: Present: soft. Absent: tenderness - Integumentary Integumentary: Absent: cellulitis - Labs CBC & Chem 7: 04/02/20 04:00 04/02/20 04:00 Labs: Abnormal Lab Results - Last 24 Hours (Table) 04/01/20 04/02/20 04/02/20 Range/Units 23:20 04:00 04:00 RBC 3.18 L (3.80-5.40) m/uL Hgb 8.9 L (11.4-16.0) gm/dL Hct 28.8 L (34.0-46.0) % MCHC 30.9 L (31.0-37.0) g/dL RDW 17.0 H (11.5-15.5) % Neutrophils # 7.9 H (1.3-7.7) k/uL Lymphocytes # 0.3 L (1.0-4.8) k/uL ABG pCO2 (35-45) mmHg ABG pO2 (83-108) mmHg Chloride 114 H (98-107) mmol/L Carbon Dioxide 20 L (22-30) mmol/L BUN 34 H (7-17) mg/dL Creatinine 0.49 L (0.52-1.04) mg/dL Glucose 151 H (74-99) mg/dL POC Glucose (mg/dL) 187 H (75-99) mg/dL Calcium 7.1 L (8.4-10.2) mg/dL Ferritin 565.2 H (10.0-291.0) ng/mL ALT 104 H (4-34) U/L C-Reactive Protein 21.1 H (<10.0) mg/L Total Protein 5.0 L (6.3-8.2) g/dL Albumin 2.1 L (3.5-5.0) g/dL 04/02/20 04/02/20 04/02/20 Range/Units 04:08 04:54 07:55 RBC (3.80-5.40) m/uL Hgb (11.4-16.0) gm/dL Hct (34.0-46.0) % MCHC (31.0-37.0) g/dL RDW (11.5-15.5) % Neutrophils # (1.3-7.7) k/uL Lymphocytes # (1.0-4.8) k/uL ABG pCO2 32 L (35-45) mmHg ABG pO2 76 L (83-108) mmHg Chloride (98-107) mmol/L Carbon Dioxide (22-30) mmol/L BUN (7-17) mg/dL Creatinine (0.52-1.04) mg/dL Glucose (74-99) mg/dL POC Glucose (mg/dL) 165 H 155 H (75-99) mg/dL Calcium (8.4-10.2) mg/dL Ferritin (10.0-291.0) ng/mL ALT (4-34) U/L C-Reactive Protein (<10.0) mg/L Total Protein (6.3-8.2) g/dL Albumin (3.5-5.0) g/dL 04/02/20 04/02/20 04/02/20 Range/Units 12:31 16:19 19:58 RBC (3.80-5.40) m/uL Hgb (11.4-16.0) gm/dL Hct (34.0-46.0) % MCHC (31.0-37.0) g/dL RDW (11.5-15.5) % Neutrophils # (1.3-7.7) k/uL Lymphocytes # (1.0-4.8) k/uL ABG pCO2 (35-45) mmHg ABG pO2 (83-108) mmHg Chloride (98-107) mmol/L Carbon Dioxide (22-30) mmol/L BUN (7-17) mg/dL Creatinine (0.52-1.04) mg/dL Glucose (74-99) mg/dL POC Glucose (mg/dL) 182 H 147 H 209 H (75-99) mg/dL Calcium (8.4-10.2) mg/dL Ferritin (10.0-291.0) ng/mL ALT (4-34) U/L C-Reactive Protein (<10.0) mg/L Total Protein (6.3-8.2) g/dL Albumin (3.5-5.0) g/dL Assessment and Plan (1) Acute respiratory distress syndrome Current Visit: Yes Status: Acute Code(s): J80 - ACUTE RESPIRATORY DISTRESS SYNDROME SNOMED Code(s): 23882915 (2) Anemia Current Visit: Yes Status: Acute Code(s): D64.9 - ANEMIA, UNSPECIFIED SNOMED Code(s): 965651729 (3) COVID-19 Current Visit: Yes Status: Acute Code(s): U07.1 - COVID-19 SNOMED Code(s): 848388402 (4) Pneumonia Current Visit: Yes Status: Acute Code(s): J18.9 - PNEUMONIA, UNSPECIFIED ORGANISM SNOMED Code(s): 787596108 (5) Fibromyalgia Current Visit: No Status: Acute Code(s): M79.7 - FIBROMYALGIA SNOMED Code(s): 024015473 Plan: Appropriate supportive care. Hopefully, we can start slowly weaning her off the vent if possible. Prognosis still Guarded due to her Covid 19. Check CBC and CMP in a.m. Appreciate multiple consultants input. See orders otherwise.
[2020-04-02 23:44] LABS: Glucose,Whole Blood 206 mg/dL (75-99)
[2020-04-03] MEDS: INSULIN ASPART (NovoLOG) 100 UNIT/ML VIAL SQ SCH ×6 (00:08→20:40)
[2020-04-03] MEDS: methylPREDNISolone SOD SUCCI 125 MG/2 ML VIAL IV SCH ×4 (00:08→17:36)
[2020-04-03 04:23] LABS: Glucose,Whole Blood 211 mg/dL (75-99)
[2020-04-03 04:25] LABS: ABG Base Excess -3.9 mmol/L; ABG HCO3 20 mmol/L (21-25); ABG Oxygen Saturation 96.4 % (94-97); ABG PCO2 31 mmHg (35-45); ABG PH 7.43 (7.35-7.45); ABG PO2 84 mmHg (83-108); ABG TCO2 21 mmol/L (19-24); Allen Test Performed? Yes
[2020-04-03 04:44] LABS: Anisocytosis Slight; Basophils % (A) 0 %; Eosinophils # (A) 0.1 k/uL (0-0.7); Eosinophils % (A) 1 %; HCT 31.8 % (34.0-46.0); HGB 9.3 gm/dL (11.4-16.0); Hypochromasia Marked; Lymphocytes # (A) 0.4 k/uL (1.0-4.8); Lymphocytes % (A) 3 %; MCH 26.7 pg (25.0-35.0); MCHC 29.4 g/dL (31.0-37.0); MCV 90.7 fL (80.0-100.0); Mean Platelet Volume 8.7; Monocytes # (A) 0.4 k/uL (0-1.0); Monocytes % (A) 3 %; Neutrophils # (A) 11.1 k/uL (1.3-7.7); Neutrophils % (A) 93 %; Platelet Count 377 k/uL (150-450); Poikilocytosis Moderate; RDW 16.6 % (11.5-15.5); WBC 11.9 k/uL (3.8-10.6)
[2020-04-03 04:58] LABS: ALT 85 U/L (4-34); AST 26 U/L (14-36); African American GFR (CKD) >90 (>60 ml/min/1.73 sqM); Albumin 2.2 g/dL (3.5-5.0); Alkaline Phosphatase 95 U/L (38-126); Anion Gap 2 mmol/L; Blood Urea Nitrogen 32 mg/dL (7-17); Calcium 7.4 mg/dL (8.4-10.2); Carbon Dioxide 19 mmol/L (22-30); Chloride 116 mmol/L (98-107); Glucose 217 mg/dL (74-99); Non-African American GFR(CKD) >90 (>60 ml/min/1.73 sqM); Potassium 4.1 mmol/L (3.5-5.1); Sodium 137 mmol/L (137-145); Total Bilirubin 0.4 mg/dL (0.2-1.3)
--- NOTE | 2020-04-03 06:27 | XR ---
EXAMINATION TYPE: XR chest 1V portable DATE OF EXAM: 04/03/2020 CLINICAL HISTORY: Difficulty breathing progress study. TECHNIQUE: Single AP portable semiupright view of the chest is obtained. COMPARISON: Chest x-ray from one day earlier and older studies FINDINGS: Stable endotracheal and coiled oral gastric tube in hiatal hernia. Stable right-sided PICC line. Stable mild cardiomegaly. Persistent multifocal opacities bilaterally with suspected tiny left greater than right pleural effusions. Osseous structures are intact. IMPRESSION: Bilateral multifocal infiltrates with organizing basilar consolidations consistent with c ovid 19 infection. No significant change from most recent x-ray.
[2020-04-03 06:55] LABS: Glucose,Whole Blood 202 mg/dL (75-99)
[2020-04-03] MEDS: HYDROmorphone 1 MG/ML 1 ML SYRINGE IVP PRN ×5 (07:57→23:10)
[2020-04-03] MEDS: CHLORHEXIDINE GLUCONATE 15 ML CUP MUCOUS MEM SCH ×2 (08:24→20:40)
[2020-04-03] MEDS: CHOLECALCIFEROL 400 UNIT TAB PO SCH (08:24)
[2020-04-03] MEDS: ZINC SULFATE 220 MG CAP PO SCH (08:24)
[2020-04-03] MEDS: ENOXAPARIN 40 MG/0.4 ML SYRINGE SQ SCH ×2 (08:24→20:40)
[2020-04-03] MEDS: PANTOPRAZOLE 40 MG/10 ML VIAL IVP SCH ×2 (08:24→20:40)
[2020-04-03] MEDS: ASCORBIC ACID 500 MG TAB PO SCH ×2 (08:24→20:41)
[2020-04-03] MEDS: FUROSEMIDE 10 MG/ML 2 ML VIAL IV SCH (08:30)
[2020-04-03] MEDS: SODIUM CHLORIDE 0.9% 1,000 ML IV SCH ×2 (10:28→12:15)
[2020-04-03 11:12] LABS: Glucose,Whole Blood 229 mg/dL (75-99)
--- NOTE | 2020-04-03 11:12 | P.PN ---
<Ana Parks - Last Filed: 04/03/20 11:09> Subjective Progress Note Date: 04/03/20 CHIEF COMPLAINT: GI bleed HISTORY OF PRESENT ILLNESS: Patient is currently hospitalized for respiratory failure and is COVID positive. She is currently in the ICU and is intubated and sedated. She is being followed for her GI bleed. She is tolerating her tube feeds through the NG tube. Patient had no stool yesterday. Afebrile. Hemoglobin remained stable at 9.3. WBC is up at 11.9. AST 26 and ALT 85 PHYSICAL EXAM: VITAL SIGNS: Reviewed. GENERAL: Well-developed in no acute distress. HEENT: No sclera icterus. Extraocular movements grossly intact. Moist buccal mucosa. Head is atraumatic, normocephalic. ABDOMEN: Soft. Nondistended. Nontender. NEUROLOGIC: Patient is intubated and sedated ASSESSMENT: 1. Acute GI bleed 2. Acute on chronic blood loss anemia 3. Elevated liver enzymes with large gallstone present on abdominal ultrasound 4. Acute hypoxic respiratory failure requiring intubation 5. COVID positive PLAN: -Continue supportive care -Continue to titrate to feedings per dietitian recommendations -Continue to monitor hemoglobin -Dr. Henry will proceed with upper and lower endoscopy when stable Physician [employer] Operator note has been reviewed by physician. Signing provider agrees with the documented findings, assessment, and plan of care. Objective - Vital Signs Vital signs: Vital Signs Temp 98.6 F 04/03/20 08:00 Pulse 57 L 04/03/20 10:00 Resp 24 04/03/20 10:00 BP 145/77 04/03/20 10:00 Pulse Ox 98 04/03/20 10:00 Intake & Output 04/02/20 04/03/20 04/03/20 18:59 06:59 18:59 Intake Total 8149.597 1437.479 701.68 Output Total 1470 590 400 Balance 357.470 5186.479 301.68 Weight 88.4 kg Intake: IV 1200 1280 400 0.9 NaCl- 1200 1180 400 Cefepime 2 gm In Sodium 100 Chloride 0.9% 100 ml @ 25 mls/hr IVPB Q12HR [facility] Rx #:[id number] Intake, IV Titration 300.631 266.479 91.68 Amount propofoL 1,000 mg In 300.631 266.479 91.68 Empty Bag 1 bag @ Titrate IV .Q0M [facility] Rx#: [id number] Tube Feeding 300 360 180 Other 90 90 30 Output: Urine 1470 590 400 Other: Voiding Method Indwelling Catheter Indwelling Catheter # Bowel Movements 1 - Labs CBC & Chem 7: 04/03/20 03:45 04/03/20 03:45 Labs: Abnormal Lab Results - Last 24 Hours (Table) 04/02/20 04/02/20 04/02/20 Range/Units 12:31 16:19 19:58 WBC (3.8-10.6) k/uL RBC (3.80-5.40) m/uL Hgb (11.4-16.0) gm/dL Hct (34.0-46.0) % MCHC (31.0-37.0) g/dL RDW (11.5-15.5) % Neutrophils # (1.3-7.7) k/uL Lymphocytes # (1.0-4.8) k/uL ABG pCO2 (35-45) mmHg ABG HCO3 (21-25) mmol/L Chloride (98-107) mmol/L Carbon Dioxide (22-30) mmol/L BUN (7-17) mg/dL Glucose (74-99) mg/dL POC Glucose (mg/dL) 182 H 147 H 209 H (75-99) mg/dL Calcium (8.4-10.2) mg/dL ALT (4-34) U/L Total Protein (6.3-8.2) g/dL Albumin (3.5-5.0) g/dL 04/02/20 04/03/20 04/03/20 Range/Units 23:43 03:45 03:45 WBC 11.9 H (3.8-10.6) k/uL RBC 3.50 L (3.80-5.40) m/uL Hgb 9.3 L (11.4-16.0) gm/dL Hct 31.8 L (34.0-46.0) % MCHC 29.4 L (31.0-37.0) g/dL RDW 16.6 H (11.5-15.5) % Neutrophils # 11.1 H (1.3-7.7) k/uL Lymphocytes # 0.4 L (1.0-4.8) k/uL ABG pCO2 (35-45) mmHg ABG HCO3 (21-25) mmol/L Chloride 116 H (98-107) mmol/L Carbon Dioxide 19 L (22-30) mmol/L BUN 32 H (7-17) mg/dL Glucose 217 H (74-99) mg/dL POC Glucose (mg/dL) 206 H (75-99) mg/dL Calcium 7.4 L (8.4-10.2) mg/dL ALT 85 H (4-34) U/L Total Protein 5.0 L (6.3-8.2) g/dL Albumin 2.2 L (3.5-5.0) g/dL 04/03/20 04/03/20 04/03/20 Range/Units 04:21 04:22 06:53 WBC (3.8-10.6) k/uL RBC (3.80-5.40) m/uL Hgb (11.4-16.0) gm/dL Hct (34.0-46.0) % MCHC (31.0-37.0) g/dL RDW (11.5-15.5) % Neutrophils # (1.3-7.7) k/uL Lymphocytes # (1.0-4.8) k/uL ABG pCO2 31 L (35-45) mmHg ABG HCO3 20 L (21-25) mmol/L Chloride (98-107) mmol/L Carbon Dioxide (22-30) mmol/L BUN (7-17) mg/dL Glucose (74-99) mg/dL POC Glucose (mg/dL) 211 H 202 H (75-99) mg/dL Calcium (8.4-10.2) mg/dL ALT (4-34) U/L Total Protein (6.3-8.2) g/dL Albumin (3.5-5.0) g/dL <William Henry - Last Filed: 04/03/20 15:51> Subjective As above. Patient remains on the ventilator. Weaning trials underway. Small black stool yesterday. Hemoglobin stable. Will follow. Objective - Vital Signs Vital signs: Vital Signs Temp 98.6 F 04/03/20 12:00 Pulse 51 L 04/03/20 12:00 Resp 24 04/03/20 12:00 BP 138/71 04/03/20 12:00 Pulse Ox 96 04/03/20 12:00 Intake & Output 04/02/20 04/03/20 04/03/20 18:59 06:59 18:59 Intake Total 2338.711 9621.479 1211.68 Output Total 4304 253 8708 Balance 729.871 3284.479 61.68 Weight 88.4 kg Intake: IV 1200 1280 600 0.9 NaCl- 1200 1180 600 Cefepime 2 gm In Sodium 100 Chloride 0.9% 100 ml @ 25 mls/hr IVPB Q12HR [facility] Rx #:[id number] Intake, IV Titration 300.631 266.479 191.68 Amount propofoL 1,000 mg In 300.631 266.479 191.68 Empty Bag 1 bag @ Titrate IV .Q0M [facility] Rx#: [id number] Tube Feeding 300 360 360 Other 90 90 60 Output: Urine 5345 474 5408 Other: Voiding Method Indwelling Catheter Indwelling Catheter # Bowel Movements 1 - Labs CBC & Chem 7: 04/03/20 03:45 04/03/20 03:45 Labs: Abnormal Lab Results - Last 24 Hours (Table) 04/02/20 04/02/20 04/02/20 Range/Units 16:19 19:58 23:43 WBC (3.8-10.6) k/uL RBC (3.80-5.40) m/uL Hgb (11.4-16.0) gm/dL Hct (34.0-46.0) % MCHC (31.0-37.0) g/dL RDW (11.5-15.5) % Neutrophils # (1.3-7.7) k/uL Lymphocytes # (1.0-4.8) k/uL ABG pCO2 (35-45) mmHg ABG HCO3 (21-25) mmol/L Chloride (98-107) mmol/L Carbon Dioxide (22-30) mmol/L BUN (7-17) mg/dL Glucose (74-99) mg/dL POC Glucose (mg/dL) 147 H 209 H 206 H (75-99) mg/dL Calcium (8.4-10.2) mg/dL ALT (4-34) U/L Total Protein (6.3-8.2) g/dL Albumin (3.5-5.0) g/dL 04/03/20 04/03/20 04/03/20 Range/Units 03:45 03:45 04:21 WBC 11.9 H (3.8-10.6) k/uL RBC 3.50 L (3.80-5.40) m/uL Hgb 9.3 L (11.4-16.0) gm/dL Hct 31.8 L (34.0-46.0) % MCHC 29.4 L (31.0-37.0) g/dL RDW 16.6 H (11.5-15.5) % Neutrophils # 11.1 H (1.3-7.7) k/uL Lymphocytes # 0.4 L (1.0-4.8) k/uL ABG pCO2 (35-45) mmHg ABG HCO3 (21-25) mmol/L Chloride 116 H (98-107) mmol/L Carbon Dioxide 19 L (22-30) mmol/L BUN 32 H (7-17) mg/dL Glucose 217 H (74-99) mg/dL POC Glucose (mg/dL) 211 H (75-99) mg/dL Calcium 7.4 L (8.4-10.2) mg/dL ALT 85 H (4-34) U/L Total Protein 5.0 L (6.3-8.2) g/dL Albumin 2.2 L (3.5-5.0) g/dL 04/03/20 04/03/20 04/03/20 Range/Units 04:22 06:53 11:11 WBC (3.8-10.6) k/uL RBC (3.80-5.40) m/uL Hgb (11.4-16.0) gm/dL Hct (34.0-46.0) % MCHC (31.0-37.0) g/dL RDW (11.5-15.5) % Neutrophils # (1.3-7.7) k/uL Lymphocytes # (1.0-4.8) k/uL ABG pCO2 31 L (35-45) mmHg ABG HCO3 20 L (21-25) mmol/L Chloride (98-107) mmol/L Carbon Dioxide (22-30) mmol/L BUN (7-17) mg/dL Glucose (74-99) mg/dL POC Glucose (mg/dL) 202 H 229 H (75-99) mg/dL Calcium (8.4-10.2) mg/dL ALT (4-34) U/L Total Protein (6.3-8.2) g/dL Albumin (3.5-5.0) g/dL 04/03/20 Range/Units 15:33 WBC (3.8-10.6) k/uL RBC (3.80-5.40) m/uL Hgb (11.4-16.0) gm/dL Hct (34.0-46.0) % MCHC (31.0-37.0) g/dL RDW (11.5-15.5) % Neutrophils # (1.3-7.7) k/uL Lymphocytes # (1.0-4.8) k/uL ABG pCO2 (35-45) mmHg ABG HCO3 (21-25) mmol/L Chloride (98-107) mmol/L Carbon Dioxide (22-30) mmol/L BUN (7-17) mg/dL Glucose (74-99) mg/dL POC Glucose (mg/dL) 218 H (75-99) mg/dL Calcium (8.4-10.2) mg/dL ALT (4-34) U/L Total Protein (6.3-8.2) g/dL Albumin (3.5-5.0) g/dL Assessment and Plan (1) GI bleed Current Visit: Yes Status: Acute Code(s): K92.2 - GASTROINTESTINAL HEMORRHAGE, UNSPECIFIED SNOMED Code(s): 70346934
--- NOTE | 2020-04-03 12:10 | P.PN ---
Subjective Progress Note Date: 04/03/20 (Critical care time 35 minutes,) Principal diagnosis: Acute hypoxic respiratory failure Covid19 pneumonia Acute respiratory and metabolic acidosis Acute hepatitis/elevated liver enzymes Acute diastolic heart failure and fluid overload Chronic anemia Fibromyalgia Hypertension hypertensive cardiovascular disease 04/03/2020, patient seen eval examined during rounds labs reviewed medications reviewed, care plan discussed, overall hemodynamically he remains stable blood pressure spiked up on hydralazine when necessary, seems to be helping, patient sedated with propofol drip 50 mics, attempts for weaning of protocol has been unsuccessful as patient becomes agitated, attempted Precedex drip has been unsuccessful as well, current vent settings include assist control rate of 24 breathing 24, FiO2 is 40%, PEEP is 5, tidal volume is 450, chest x-ray stable ET tube with bilateral multifocal infiltrate with consolidation consistent with cold with 19 pneumonia not essentially much change from the prior x-ray, ET tube and NG tube was stable, patient is getting tube feed bolus feeding, labs including ABG chemistry reviewed 04/02/2020, patient seen eval examined during the rounds labs reviewed medications reviewed care plan discussed, patient remains sedated with propofol on ventilator for full ventilator support, currently patient is on assist control mode rate Tuesday for breathing 24, tidal volume is 450, 5 of PEEP, 40% oxygen, propofol is 50 mics, chest x-ray from today reviewed continue show patchy bilateral infiltrate without any significant interval change, arterial blood gases revealed pH of 7.43 pCO2 32, C-reactive protein is down to 21, BUN/creatinine is 34/.49, white cell count and hemoglobin remained stable, medications reviewed, she remains on broad-spectrum antibiotic with cephapirin, Lovenox, gentle diuresis with Lasix, blood pressure control with IV hydralazine, patient remains on high-dose IV steroids, discussed with the staff at length, will stop the propofol drip and once patient is awake put on CPAP 5 pressure support of 5 gas after half an hour also check weaning parameters 04/01/2020, patient seen eval examined labs reviewed medications reviewed care plan discussed with the staff at length patient had a sedation holiday today she is arousable and awake follows simple commands with blood pressure went up becomes agitated anxious requiring a reinitiation of propofol drip, ventilator setting remains unchanged, patient is on rate of 24 tidal volume is 450, PEEP is 5, oxygen is 40%, chest x-ray from today reviewed remains overall stable with stable lines and tubes 03/31/2020, patient seen eval examined during the rounds labs reviewed medications reviewed care plan discussed, patient remains on full ventilator support, propofol was changed to Precedex but however patient becomes agitated so back on propofol when setting remains unchanged have been on assist control rate of 24, PEEP is 5, FiO2 is 40%, tidal volume of 450, care plan discussed with the staff at length critical care time 35 minutes 03/30/2020, patient seen eval examined during the rounds labs reviewed medications reviewed, remains sedated with propofol, current vent setting include his control rate of 24 breathing 24 tidal volume is 450, deep is 5 now, FiO2 is 40%, tolerating tube feed very well, chest x-ray reviewed slightly better but stable bilateral infiltrate consistent with atypical pneumonia, patient continued IVs very well with 20 mg Lasix daily, white cell count remained stable, with stable hemoglobin and however decreasing platelet count noted, dear blood gases revealed pH of 7.4 to pCO2 34 pO2 of 62, BUN/creatinine is 36 and 0.62, left he continue show downward trend, inflammatory markers reviewed still elevated but showing a downward trend 03/29/2020, patient seen eval examined during the rounds labs reviewed medications reviewed, care plan discussed with the nursing staff at length, patient has been on assist control rate of the 24 PEEP of 8 400 tidal volume 50% oxygen, ventilator has been adjusted with reduction in PEEP and oxygen, patient's saturation remained stable 91-92%, next step he is to stop propofol and reassess the mental status and if patient remains stable oxygen randolph and hemodynamics can do a CPAP pressure support trial in the meantime we'll continue IV steroids, antibiotics, CBC and ABG reviewed, today's chest x-ray showed bilateral interstitial infiltrate, predominantly at the bases, patient has been on Lasix 20 mg daily diuresing very well, critical care time 35 minutes 03/28/2020, patient seen eval examined during the rounds labs reviewed medications reviewed care plan discussed oxygen has been down to 40% now. The patient is PEEP of 8, otherwise ventilator setting remains stable, patient is scheduled for PICC line later on today, remains on propofol, remains on broad- spectrum antibiotics, labs from today has been reviewed hemoglobin is stable 7.9, d-dimer is 3.24, arterial blood gases stable pH is 7.41 pCO2 35 pO2 96, BUN/creatinine is 51 and 1.05, ferritin level remains more than 26,000, AST ALT continued decline however today is 367 and 558, C-reactive protein checked 69.5 her chest x-ray earlier than today remains there however appears to have slightly progressed 03/27/2020, patient seen eval examined during the rounds labs reviewed medications reviewed care plan discussed, propofol has been discontinued patient because very restless and anxious, we'll restart propofol, patient has been on full ventilator support assist control 24 tidal volume of 450, PEEP is 10, oxygen is 70%, arterial blood gases reviewed when lower the FiO2 to 60% now plan to bring down the FiO2 to 50% and PEEP of 8 next 24 hours, sputum and blood cultures reviewed no growth so far, chest x-ray performed today reviewed significant improvement in infiltrates seen bilaterally, patient has a poor urine output throughout the night, 20 mg of Lasix was given put out 600 mL of urine patient continued to be on gentle hydration, remain on cefapime and Vanco, Lovenox Solu-Medrol multivitamin and vitamin C zinc and Lovenox, white cell count is stable 10,500 hemoglobin and hematocrit 7.2 and 24, general surgery has been following patient is considered to get EGD and colonoscopy once stable, arterial blood gas revealed pH of 7.39 pCO2 of 39 pO2 of 124, bicarb 25, liver enzymes continue to come down AST and ALT now is 944/809, hepatitis panel normal and nonreactive 03/26/2020, patient seen eval examined in the ICU care plan discussed with the staff, FiO2 has been down to 60%, patient remains on assist control tidal volume of 450, PEEP is 10, respiratory rate is 24 breathing with the respirator pH has been improved significantly, patient is making adequate urine chest x-ray compared with yesterday's x-ray some improvement have been noted, white cell count is 11,000, hemoglobin 7.9 which is stable, arterial blood gas improved to 7.39, pCO2 of 40, pO2 112, BUN/creatinine is 33/0.96, lactic acid was 5.9 down to 1.3 now, ferritin level noted to be 12,800, AST and ALT are 4014 100 with LDH over 21,500, today LFTs significantly improved AST is down to 2795 and ALT is 1222, pro calcitonin is 0.84, suspect some component of heart failure as well as pneumonia, will get an echocardiogram as well as start patient on broad-spectrum antibiotics with cefepime and Vanco Patient seen and evaluated examined in the emergency department, patient came into the ER from the office of Dr. Aleman due to progressive shortness of breath, patient has acute on chronic hypoxic respiratory failure on 4 L oxygen, also has issues associated with pneumonia presumed to be cold with 19, however, testing was negative, patient used to smoke in the remote past quit about 20-30 years ago due to severity or shortness of breath and hypoxia with saturation of 76% on 100% oxygen and respiratory distress patient was intubated due to poor tolerance on BiPAP, patient Covid testing came back positive, chest x-ray showing diffuse infiltrate she also has been noted to have elevated liver enzymes due to elevated liver enzymes will not start IV REMdesivir, Initial ABG pH is 7.18, pCO2 is 63 pO2 was only 33 Objective - Vital Signs Vital signs: Vital Signs Temp 98.6 F 04/03/20 08:00 Pulse 57 L 04/03/20 10:00 Resp 24 04/03/20 10:00 BP 145/77 04/03/20 10:00 Pulse Ox 98 04/03/20 10:00 Intake & Output 04/02/20 04/03/20 04/03/20 18:59 06:59 18:59 Intake Total 9998.664 7829.479 1011.68 Output Total 1470 590 850 Balance 777.980 9328.479 161.68 Weight 88.4 kg Intake: IV 1200 1280 500 0.9 NaCl- 1200 1180 500 Cefepime 2 gm In Sodium 100 Chloride 0.9% 100 ml @ 25 mls/hr IVPB Q12HR NONA Rx #:[id number] Intake, IV Titration 300.631 266.479 91.68 Amount propofoL 1,000 mg In 300.631 266.479 91.68 Empty Bag 1 bag @ Titrate IV .Q0M NONA Rx#: [id number] Tube Feeding 300 360 360 Other 90 90 60 Output: Urine 1470 590 850 Other: Voiding Method Indwelling Catheter Indwelling Catheter # Bowel Movements 1 - Exam Intubated sedated with propofol - Constitutional General appearance: average body habitus, mild distress - EENT Ears: bilateral: normal - Neck Carotids: bilateral: upstroke normal Thyroid: bilateral: normal size - Respiratory Respiratory: bilateral: diminished - Cardiovascular Rhythm: regular Heart sounds: normal: S1, S2 - Gastrointestinal General gastrointestinal: normal bowel sounds Sedated with propofol on full ventilator support with 40 % oxygen and assist control mode - Labs CBC & Chem 7: 04/03/20 03:45 04/03/20 03:45 Labs: Abnormal Lab Results - Last 24 Hours (Table) 04/02/20 04/02/20 04/02/20 Range/Units 12:31 16:19 19:58 WBC (3.8-10.6) k/uL RBC (3.80-5.40) m/uL Hgb (11.4-16.0) gm/dL Hct (34.0-46.0) % MCHC (31.0-37.0) g/dL RDW (11.5-15.5) % Neutrophils # (1.3-7.7) k/uL Lymphocytes # (1.0-4.8) k/uL ABG pCO2 (35-45) mmHg ABG HCO3 (21-25) mmol/L Chloride (98-107) mmol/L Carbon Dioxide (22-30) mmol/L BUN (7-17) mg/dL Glucose (74-99) mg/dL POC Glucose (mg/dL) 182 H 147 H 209 H (75-99) mg/dL Calcium (8.4-10.2) mg/dL ALT (4-34) U/L Total Protein (6.3-8.2) g/dL Albumin (3.5-5.0) g/dL 04/02/20 04/03/20 04/03/20 Range/Units 23:43 03:45 03:45 WBC 11.9 H (3.8-10.6) k/uL RBC 3.50 L (3.80-5.40) m/uL Hgb 9.3 L (11.4-16.0) gm/dL Hct 31.8 L (34.0-46.0) % MCHC 29.4 L (31.0-37.0) g/dL RDW 16.6 H (11.5-15.5) % Neutrophils # 11.1 H (1.3-7.7) k/uL Lymphocytes # 0.4 L (1.0-4.8) k/uL ABG pCO2 (35-45) mmHg ABG HCO3 (21-25) mmol/L Chloride 116 H (98-107) mmol/L Carbon Dioxide 19 L (22-30) mmol/L BUN 32 H (7-17) mg/dL Glucose 217 H (74-99) mg/dL POC Glucose (mg/dL) 206 H (75-99) mg/dL Calcium 7.4 L (8.4-10.2) mg/dL ALT 85 H (4-34) U/L Total Protein 5.0 L (6.3-8.2) g/dL Albumin 2.2 L (3.5-5.0) g/dL 04/03/20 04/03/20 04/03/20 Range/Units 04:21 04:22 06:53 WBC (3.8-10.6) k/uL RBC (3.80-5.40) m/uL Hgb (11.4-16.0) gm/dL Hct (34.0-46.0) % MCHC (31.0-37.0) g/dL RDW (11.5-15.5) % Neutrophils # (1.3-7.7) k/uL Lymphocytes # (1.0-4.8) k/uL ABG pCO2 31 L (35-45) mmHg ABG HCO3 20 L (21-25) mmol/L Chloride (98-107) mmol/L Carbon Dioxide (22-30) mmol/L BUN (7-17) mg/dL Glucose (74-99) mg/dL POC Glucose (mg/dL) 211 H 202 H (75-99) mg/dL Calcium (8.4-10.2) mg/dL ALT (4-34) U/L Total Protein (6.3-8.2) g/dL Albumin (3.5-5.0) g/dL 04/03/20 Range/Units 11:11 WBC (3.8-10.6) k/uL RBC (3.80-5.40) m/uL Hgb (11.4-16.0) gm/dL Hct (34.0-46.0) % MCHC (31.0-37.0) g/dL RDW (11.5-15.5) % Neutrophils # (1.3-7.7) k/uL Lymphocytes # (1.0-4.8) k/uL ABG pCO2 (35-45) mmHg ABG HCO3 (21-25) mmol/L Chloride (98-107) mmol/L Carbon Dioxide (22-30) mmol/L BUN (7-17) mg/dL Glucose (74-99) mg/dL POC Glucose (mg/dL) 229 H (75-99) mg/dL Calcium (8.4-10.2) mg/dL ALT (4-34) U/L Total Protein (6.3-8.2) g/dL Albumin (3.5-5.0) g/dL Assessment and Plan Assessment: Agitated delirium and hypertensive emergency ones come off of sedation Acute hypoxic respiratory failure Covid19 pneumonia Acute pneumonia bacterial bilateral healthcare associated patient is being monitored off of antibiotics now Thrombocytopenia Acute respiratory and metabolic acidosis Acute hepatitis/elevated liver enzymes Acute diastolic heart failure Chronic anemia Fibromyalgia Hypertension hypertensive cardiovascular disease Plan: Titrated propofol down slowly, patient need possibly other intervention as well reinitiation of her baseline his Requip Zoloft and Elavil Continue gentle diuresis Ventilator support adjustment of ventilator as per clinical response and arterial blood gases, will attempt weaning trial starting later on today if remains stable IV Lasix 20 mg daily keep on negative side Follow-up on Sputum culture and blood culture Enteral nutrition via tube feeding Trend liver enzymes Patient is not a candidate for IV REMdesivir due to markedly elevated liver enzymes IV steroids Further recommendations pending plan of care as per clinical response of patient Continue anticoagulation with Lovenox We will hold Propofol today if remains stable consider weaning trial with CPAP and pressure support Time with Patient: Greater than 30
[2020-04-03 15:35] LABS: Glucose,Whole Blood 218 mg/dL (75-99)
[2020-04-03 19:41] LABS: LD Isoenzymes 1 22 % (19-38); LD Isoenzymes 2 41 % (30-43); LD Isoenzymes 3 21 % (16-26); LD Isoenzymes 4 8 % (3-12); LD Isoenzymes 5 8 % (3-14); Lactacte Dehydrogenase(LD) ISO 303 U/L (120-250)
[2020-04-03 20:25] LABS: Glucose,Whole Blood 163 mg/dL (75-99)
--- NOTE | 2020-04-03 22:32 | PN ---
PROGRESS NOTE DATE OF SERVICE: 04/03/2020 REASON FOR FOLLOWUP: Pneumonia. INTERVAL HISTORY: The patient is currently afebrile. The patient is hemodynamically stable. She was not able to tolerate her weaning yesterday. She remains intubated on the vent. No significant purulent secretions in the ET or any diarrhea reported by the nursing staff. PHYSICAL EXAMINATION: Blood pressure 170/77 with a pulse of 86, temperature 98.3. She is 97% on 40% FiO2. General description is an elderly female lying in bed in no distress. RESPIRATORY SYSTEM: Unlabored breathing with decreased intensity of breath sounds. No wheeze. HEART: S1, S2. Regular rate. ABDOMEN: Soft. No tenderness. EXTREMITIES: No edema of the feet. LABS: Hemoglobin 9.3, white count 9.9, BUN of 32, creatinine 0.63. DIAGNOSTIC IMPRESSION AND PLAN: Patient with acute respiratory failure which is multifactorial in this patient who did have a component of pneumonia. Sputum has been negative so far in this patient who recently did have a COVID-19 infection. Patient at this time will continue with Lovenox, Solu-Medrol, antibiotic in the form of cefepime, zinc, and continue with supportive care. MMODL / IJN: [id number] /
[2020-04-04 00:32] LABS: Glucose,Whole Blood 178 mg/dL (75-99)
[2020-04-04] MEDS: INSULIN ASPART (NovoLOG) 100 UNIT/ML VIAL SQ SCH ×5 (00:45→16:26)
[2020-04-04] MEDS: methylPREDNISolone SOD SUCCI 125 MG/2 ML VIAL IV SCH ×2 (01:06→06:32)
[2020-04-04] MEDS: HYDROmorphone 1 MG/ML 1 ML SYRINGE IVP PRN ×5 (02:20→19:01)
[2020-04-04 04:22] LABS: Anisocytosis Slight; Basophils % (A) 0 %; Eosinophils % (A) 0 %; HCT 31.1 % (34.0-46.0); HGB 9.4 gm/dL (11.4-16.0); Hypochromasia Marked; Lymphocytes # (A) 0.4 k/uL (1.0-4.8); Lymphocytes % (A) 3 %; MCH 27.2 pg (25.0-35.0); MCHC 30.1 g/dL (31.0-37.0); MCV 90.3 fL (80.0-100.0); Mean Platelet Volume 8.7; Monocytes # (A) 0.6 k/uL (0-1.0); Monocytes % (A) 4 %; Neutrophils # (A) 12.3 k/uL (1.3-7.7); Neutrophils % (A) 92 %; Platelet Count 385 k/uL (150-450); Poikilocytosis Moderate; RBC 3.45 m/uL (3.80-5.40); RDW 16.6 % (11.5-15.5); WBC 13.4 k/uL (3.8-10.6)
[2020-04-04 04:33] LABS: ALT 74 U/L (4-34); AST 26 U/L (14-36); African American GFR (CKD) >90 (>60 ml/min/1.73 sqM); Albumin 2.2 g/dL (3.5-5.0); Alkaline Phosphatase 86 U/L (38-126); Anion Gap 1 mmol/L; Blood Urea Nitrogen 32 mg/dL (7-17); Calcium 7.5 mg/dL (8.4-10.2); Carbon Dioxide 20 mmol/L (22-30); Chloride 116 mmol/L (98-107); Glucose 175 mg/dL (74-99); Non-African American GFR(CKD) >90 (>60 ml/min/1.73 sqM); Potassium 4.2 mmol/L (3.5-5.1); Sodium 137 mmol/L (137-145); Total Bilirubin 0.4 mg/dL (0.2-1.3); Total Protein 5.1 g/dL (6.3-8.2)
[2020-04-04 04:50] LABS: Glucose,Whole Blood 174 mg/dL (75-99)
[2020-04-04] MEDS: SODIUM CHLORIDE 0.9% 1,000 ML IV SCH ×3 (05:04→16:26)
[2020-04-04 05:58] LABS: ABG Base Excess -3.5 mmol/L; ABG HCO3 21 mmol/L (21-25); ABG PCO2 32 mmHg (35-45); ABG PH 7.42 (7.35-7.45); ABG PO2 64 mmHg (83-108); ABG TCO2 22 mmol/L (19-24); Allen Test Performed? Yes
[2020-04-04 08:25] LABS: Glucose,Whole Blood 187 mg/dL (75-99)
[2020-04-04] MEDS: CHLORHEXIDINE GLUCONATE 15 ML CUP MUCOUS MEM SCH (08:35)
[2020-04-04] MEDS: ZINC SULFATE 220 MG CAP PO SCH (08:35)
[2020-04-04] MEDS: CHOLECALCIFEROL 400 UNIT TAB PO SCH (08:35)
[2020-04-04] MEDS: ASCORBIC ACID 500 MG TAB PO SCH ×2 (08:35→21:45)
[2020-04-04] MEDS: ENOXAPARIN 40 MG/0.4 ML SYRINGE SQ SCH ×2 (08:36→21:53)
[2020-04-04] MEDS: PANTOPRAZOLE 40 MG/10 ML VIAL IVP SCH ×2 (08:36→21:53)
[2020-04-04] MEDS: FUROSEMIDE 10 MG/ML 2 ML VIAL IV SCH (08:36)
--- NOTE | 2020-04-04 08:44 | P.PN ---
Subjective Principal diagnosis: This is a continue progress note on 6-year-old white female with history of chronic anemia who is admitted for respiratory failure related to Covid pneumonia. The patient is intubated but has had some rectal bleeding. We will go ahead and type and screen for one unit. Otherwise appreciate multiple consultants input. The patient continues to be intubated at FIO2 of 40 percent. I am hopeful that the patient could possibly be weaned soon. She seems to be improving otherwise. Objective - Vital Signs Vital signs: Vital Signs Temp 98.2 F 04/04/20 04:00 Pulse 59 L 04/04/20 07:00 Resp 24 04/04/20 07:00 BP 174/85 04/04/20 07:00 Pulse Ox 97 04/04/20 07:00 Intake & Output 04/03/20 04/04/20 04/04/20 18:59 06:59 18:59 Intake Total 2043.338 1860 100 Output Total 1700 495 40 Balance 356.576 6389 60 Intake: IV 1200 1200 100 0.9 NaCl- 1200 1200 100 Intake, IV Titration 213.338 Amount propofoL 1,000 mg In 213.338 Empty Bag 1 bag @ Titrate IV .Q0M [facility] Rx#: [id number] Tube Feeding 540 540 Other 90 120 Output: Urine 1700 495 40 Other: Voiding Method Indwelling Catheter Indwelling Catheter - Constitutional General appearance: Present: average body habitus - EENT Eyes: Absent: abnormal pupil - Respiratory Respiratory: bilateral: diminished - Cardiovascular Rhythm: regular Heart sounds: normal: S1, S2 Abnormal Heart Sounds: Absent: S3 Gallop - Gastrointestinal General gastrointestinal: Present: soft. Absent: tenderness - Neurologic Neurologic: Present: CNII-XII intact - Labs CBC & Chem 7: 04/04/20 03:37 04/04/20 03:37 Labs: Abnormal Lab Results - Last 24 Hours (Table) 04/01/20 04/03/20 04/03/20 Range/Units 04:10 11:11 15:33 WBC (3.8-10.6) k/uL RBC (3.80-5.40) m/uL Hgb (11.4-16.0) gm/dL Hct (34.0-46.0) % MCHC (31.0-37.0) g/dL RDW (11.5-15.5) % Neutrophils # (1.3-7.7) k/uL Lymphocytes # (1.0-4.8) k/uL ABG pCO2 (35-45) mmHg ABG pO2 (83-108) mmHg ABG O2 Saturation (94-97) % Chloride (98-107) mmol/L Carbon Dioxide (22-30) mmol/L BUN (7-17) mg/dL Creatinine (0.52-1.04) mg/dL Glucose (74-99) mg/dL POC Glucose (mg/dL) 229 H 218 H (75-99) mg/dL Calcium (8.4-10.2) mg/dL ALT (4-34) U/L LD Isoenzymes 303 H (120-250) U/L Total Protein (6.3-8.2) g/dL Albumin (3.5-5.0) g/dL 04/03/20 04/04/20 04/04/20 Range/Units 20:23 00:31 03:37 WBC (3.8-10.6) k/uL RBC (3.80-5.40) m/uL Hgb (11.4-16.0) gm/dL Hct (34.0-46.0) % MCHC (31.0-37.0) g/dL RDW (11.5-15.5) % Neutrophils # (1.3-7.7) k/uL Lymphocytes # (1.0-4.8) k/uL ABG pCO2 (35-45) mmHg ABG pO2 (83-108) mmHg ABG O2 Saturation (94-97) % Chloride 116 H (98-107) mmol/L Carbon Dioxide 20 L (22-30) mmol/L BUN 32 H (7-17) mg/dL Creatinine 0.51 L (0.52-1.04) mg/dL Glucose 175 H (74-99) mg/dL POC Glucose (mg/dL) 163 H 178 H (75-99) mg/dL Calcium 7.5 L (8.4-10.2) mg/dL ALT 74 H (4-34) U/L LD Isoenzymes (120-250) U/L Total Protein 5.1 L (6.3-8.2) g/dL Albumin 2.2 L (3.5-5.0) g/dL 04/04/20 04/04/20 04/04/20 Range/Units 03:37 04:48 05:57 WBC 13.4 H (3.8-10.6) k/uL RBC 3.45 L (3.80-5.40) m/uL Hgb 9.4 L (11.4-16.0) gm/dL Hct 31.1 L (34.0-46.0) % MCHC 30.1 L (31.0-37.0) g/dL RDW 16.6 H (11.5-15.5) % Neutrophils # 12.3 H (1.3-7.7) k/uL Lymphocytes # 0.4 L (1.0-4.8) k/uL ABG pCO2 32 L (35-45) mmHg ABG pO2 64 L (83-108) mmHg ABG O2 Saturation 93.0 L (94-97) % Chloride (98-107) mmol/L Carbon Dioxide (22-30) mmol/L BUN (7-17) mg/dL Creatinine (0.52-1.04) mg/dL Glucose (74-99) mg/dL POC Glucose (mg/dL) 174 H (75-99) mg/dL Calcium (8.4-10.2) mg/dL ALT (4-34) U/L LD Isoenzymes (120-250) U/L Total Protein (6.3-8.2) g/dL Albumin (3.5-5.0) g/dL 04/04/20 Range/Units 08:23 WBC (3.8-10.6) k/uL RBC (3.80-5.40) m/uL Hgb (11.4-16.0) gm/dL Hct (34.0-46.0) % MCHC (31.0-37.0) g/dL RDW (11.5-15.5) % Neutrophils # (1.3-7.7) k/uL Lymphocytes # (1.0-4.8) k/uL ABG pCO2 (35-45) mmHg ABG pO2 (83-108) mmHg ABG O2 Saturation (94-97) % Chloride (98-107) mmol/L Carbon Dioxide (22-30) mmol/L BUN (7-17) mg/dL Creatinine (0.52-1.04) mg/dL Glucose (74-99) mg/dL POC Glucose (mg/dL) 187 H (75-99) mg/dL Calcium (8.4-10.2) mg/dL ALT (4-34) U/L LD Isoenzymes (120-250) U/L Total Protein (6.3-8.2) g/dL Albumin (3.5-5.0) g/dL Assessment and Plan (1) Acute respiratory distress syndrome Current Visit: Yes Status: Acute Code(s): J80 - ACUTE RESPIRATORY DISTRESS SYNDROME SNOMED Code(s): 75599116 (2) Anemia Current Visit: Yes Status: Acute Code(s): D64.9 - ANEMIA, UNSPECIFIED SNOMED Code(s): 765951738 (3) COVID-19 Current Visit: Yes Status: Acute Code(s): U07.1 - COVID-19 SNOMED Code(s): 641660829 (4) Pneumonia Current Visit: Yes Status: Acute Code(s): J18.9 - PNEUMONIA, UNSPECIFIED ORGANISM SNOMED Code(s): 876312007 (5) Fibromyalgia Current Visit: No Status: Acute Code(s): M79.7 - FIBROMYALGIA SNOMED Code(s): 268647885 Plan: Appropriate supportive care. Hopefully, we can start slowly weaning her off the vent if possible. Prognosis still Guarded due to her Covid 19. Check CBC and CMP in a.m. Dr. Narayanan's group will covering weekend.
--- NOTE | 2020-04-04 09:10 | XR ---
EXAMINATION TYPE: XR chest 1V portable DATE OF EXAM: 04/04/2020 COMPARISON: 04/03/2020 INDICATION: Intubated TECHNIQUE: Single frontal view of the chest is obtained. FINDINGS: The heart size is mildly prominent. The pulmonary vasculature is prominent. Diffuse increased infiltrates are present greater at the right lung base. There may be slight progres nasrin from the comparison. Endotracheal tube tip is above the allison. Nasogastric tube is curled within the renal hernia. Right PICC line tip is in the right atrium IMPRESSION: 1. Slight increasing diffuse infiltrates bilaterally. 2. Multiple lines and catheters discussed above
--- NOTE | 2020-04-04 11:13 | P.PN ---
Subjective Progress Note Date: 04/04/20 (Critical care time spent 35 minutes) Principal diagnosis: Acute hypoxic respiratory failure Covid19 pneumonia Acute respiratory and metabolic acidosis Acute hepatitis/elevated liver enzymes Acute diastolic heart failure and fluid overload Chronic anemia Fibromyalgia Hypertension hypertensive cardiovascular disease 04/04/2020, patient seen eval examined during the rounds labs reviewed medications reviewed care plan discussed, patient is awake now remains off of propofol since yesterday, does make intermittent eye contact, remains slightly withdrawn however, respiratory status stable, remains on assist control mode rate of 24, tidal volume is 450, +5 of PEEP, 40% oxygen, peak airway pressure stable, chest x-ray shows bilateral diffuse interstitial infiltrate stable ET tube and NG tube in PICC line, white cell count is 13,400, hemoglobin and hematocrit stable 9.4 and 31, arterial blood gases reviewed pH is 7.4 to pCO2 32 pO2 64, BUN/creatinine is 32 and 0.5, patient is reviewed Lovenox remains 2040 mg subcu twice a day on IV furosemide, Solu-Medrol is 60 mg IV every 6 we'll decrease it to every 12 04/03/2020, patient seen eval examined during rounds labs reviewed medications reviewed, care plan discussed, overall hemodynamically he remains stable blood pressure spiked up on hydralazine when necessary, seems to be helping, patient sedated with propofol drip 50 mics, attempts for weaning of protocol has been unsuccessful as patient becomes agitated, attempted Precedex drip has been unsuccessful as well, current vent settings include assist control rate of 24 breathing 24, FiO2 is 40%, PEEP is 5, tidal volume is 450, chest x-ray stable ET tube with bilateral multifocal infiltrate with consolidation consistent with cold with 19 pneumonia not essentially much change from the prior x-ray, ET tube and NG tube was stable, patient is getting tube feed bolus feeding, labs including ABG chemistry reviewed 04/02/2020, patient seen eval examined during the rounds labs reviewed medications reviewed care plan discussed, patient remains sedated with propofol on ventilator for full ventilator support, currently patient is on assist control mode rate Tuesday for breathing 24, tidal volume is 450, 5 of PEEP, 40% oxygen, propofol is 50 mics, chest x-ray from today reviewed continue show patchy bilateral infiltrate without any significant interval change, arterial blood gases revealed pH of 7.43 pCO2 32, C-reactive protein is down to 21, BUN/creatinine is 34/.49, white cell count and hemoglobin remained stable, medications reviewed, she remains on broad-spectrum antibiotic with cephapirin, Lovenox, gentle diuresis with Lasix, blood pressure control with IV hydralazine, patient remains on high-dose IV steroids, discussed with the staff at length, will stop the propofol drip and once patient is awake put on CPAP 5 pressure support of 5 gas after half an hour also check weaning parameters 04/01/2020, patient seen eval examined labs reviewed medications reviewed care plan discussed with the staff at length patient had a sedation holiday today she is arousable and awake follows simple commands with blood pressure went up becomes agitated anxious requiring a reinitiation of propofol drip, ventilator setting remains unchanged, patient is on rate of 24 tidal volume is 450, PEEP is 5, oxygen is 40%, chest x-ray from today reviewed remains overall stable with stable lines and tubes 03/31/2020, patient seen eval examined during the rounds labs reviewed medications reviewed care plan discussed, patient remains on full ventilator support, propofol was changed to Precedex but however patient becomes agitated so back on propofol when setting remains unchanged have been on assist control rate of 24, PEEP is 5, FiO2 is 40%, tidal volume of 450, care plan discussed with the staff at length critical care time 35 minutes 03/30/2020, patient seen eval examined during the rounds labs reviewed medications reviewed, remains sedated with propofol, current vent setting include his control rate of 24 breathing 24 tidal volume is 450, deep is 5 now, FiO2 is 40%, tolerating tube feed very well, chest x-ray reviewed slightly better but stable bilateral infiltrate consistent with atypical pneumonia, patient continued IVs very well with 20 mg Lasix daily, white cell count remained stable, with stable hemoglobin and however decreasing platelet count noted, dear blood gases revealed pH of 7.4 to pCO2 34 pO2 of 62, BUN/creatinine is 36 and 0.62, left he continue show downward trend, inflammatory markers reviewed still elevated but showing a downward trend 03/29/2020, patient seen eval examined during the rounds labs reviewed medications reviewed, care plan discussed with the nursing staff at length, patient has been on assist control rate of the 24 PEEP of 8 400 tidal volume 50% oxygen, ventilator has been adjusted with reduction in PEEP and oxygen, patient's saturation remained stable 91-92%, next step he is to stop propofol and reassess the mental status and if patient remains stable oxygen randolph and hemodynamics can do a CPAP pressure support trial in the meantime we'll continue IV steroids, antibiotics, CBC and ABG reviewed, today's chest x-ray showed bilateral interstitial infiltrate, predominantly at the bases, patient has been on Lasix 20 mg daily diuresing very well, critical care time 35 minutes 03/28/2020, patient seen eval examined during the rounds labs reviewed medications reviewed care plan discussed oxygen has been down to 40% now. The patient is PEEP of 8, otherwise ventilator setting remains stable, patient is scheduled for PICC line later on today, remains on propofol, remains on broad- spectrum antibiotics, labs from today has been reviewed hemoglobin is stable 7.9, d-dimer is 3.24, arterial blood gases stable pH is 7.41 pCO2 35 pO2 96, BUN/creatinine is 51 and 1.05, ferritin level remains more than 26,000, AST ALT continued decline however today is 367 and 558, C-reactive protein checked 69.5 her chest x-ray earlier than today remains there however appears to have slightly progressed 03/27/2020, patient seen eval examined during the rounds labs reviewed medications reviewed care plan discussed, propofol has been discontinued patient because very restless and anxious, we'll restart propofol, patient has been on full ventilator support assist control 24 tidal volume of 450, PEEP is 10, oxygen is 70%, arterial blood gases reviewed when lower the FiO2 to 60% now plan to bring down the FiO2 to 50% and PEEP of 8 next 24 hours, sputum and blood cultures reviewed no growth so far, chest x-ray performed today reviewed significant improvement in infiltrates seen bilaterally, patient has a poor urine output throughout the night, 20 mg of Lasix was given put out 600 mL of urine patient continued to be on gentle hydration, remain on cefapime and Vanco, Lovenox Solu-Medrol multivitamin and vitamin C zinc and Lovenox, white cell count is stable 10,500 hemoglobin and hematocrit 7.2 and 24, general surgery has been following patient is considered to get EGD and colonoscopy once stable, arterial blood gas revealed pH of 7.39 pCO2 of 39 pO2 of 124, bicarb 25, liver enzymes continue to come down AST and ALT now is 944/809, hepatitis panel normal and nonreactive 03/26/2020, patient seen eval examined in the ICU care plan discussed with the staff, FiO2 has been down to 60%, patient remains on assist control tidal volume of 450, PEEP is 10, respiratory rate is 24 breathing with the respirator pH has been improved significantly, patient is making adequate urine chest x-ray lenny red with yesterday's x-ray some improvement have been noted, white cell count is 11,000, hemoglobin 7.9 which is stable, arterial blood gas improved to 7.39, pCO2 of 40, pO2 112, BUN/creatinine is 33/0.96, lactic acid was 5.9 down to 1.3 now, ferritin level noted to be 12,800, AST and ALT are 4014 100 with LDH over 21,500, today LFTs significantly improved AST is down to 2795 and ALT is 1222, pro calcitonin is 0.84, suspect some component of heart failure as well as pneumonia, will get an echocardiogram as well as start patient on broad-spectrum antibiotics with cefepime and Vanco Patient seen and evaluated examined in the emergency department, patient came into the ER from the office of Dr. Aleman due to progressive shortness of breath, patient has acute on chronic hypoxic respiratory failure on 4 L oxygen, also has issues associated with pneumonia presumed to be cold with 19, however, testing was negative, patient used to smoke in the remote past quit about 20-30 years ago due to severity or shortness of breath and hypoxia with saturation of 76% on 100% oxygen and respiratory distress patient was intubated due to poor tolerance on BiPAP, patient Covid testing came back positive, chest x-ray showing diffuse infiltrate she also has been noted to have elevated liver enzymes due to elevated liver enzymes will not start IV REMdesivir, Initial ABG pH is 7.18, pCO2 is 63 pO2 was only 33 Objective - Vital Signs Vital signs: Vital Signs Temp 98.1 F 04/04/20 08:00 Pulse 69 04/04/20 11:00 Resp 25 H 04/04/20 11:00 BP 184/94 04/04/20 11:00 Pulse Ox 96 04/04/20 11:00 Intake & Output 04/03/20 04/04/20 04/04/20 18:59 06:59 18:59 Intake Total 2043.338 1860 740 Output Total 1700 495 225 Balance 978.029 4169 515 Intake: IV 1200 1200 500 0.9 NaCl- 1200 1200 500 Intake, IV Titration 213.338 Amount propofoL 1,000 mg In 213.338 Empty Bag 1 bag @ Titrate IV .Q0M [facility] Rx#: [id number] Tube Feeding 540 540 180 Other 90 120 60 Output: Urine 1700 495 225 Other: Voiding Method Indwelling Catheter Indwelling Catheter Indwelling Catheter - Exam Intubated off of propofol since yesterday - Constitutional General appearance: average body habitus, mild distress - EENT Ears: bilateral: normal - Neck Carotids: bilateral: upstroke normal Thyroid: bilateral: normal size - Respiratory Respiratory: bilateral: diminished - Cardiovascular Rhythm: regular Heart sounds: normal: S1, S2 - Gastrointestinal General gastrointestinal: normal bowel sounds Off of propofol slightly more awake full ventilator support with 40 % oxygen and assist control mode - Labs CBC & Chem 7: 04/04/20 03:37 04/04/20 03:37 Labs: Abnormal Lab Results - Last 24 Hours (Table) 04/01/20 04/03/20 04/03/20 Range/Units 04:10 11:11 15:33 WBC (3.8-10.6) k/uL RBC (3.80-5.40) m/uL Hgb (11.4-16.0) gm/dL Hct (34.0-46.0) % MCHC (31.0-37.0) g/dL RDW (11.5-15.5) % Neutrophils # (1.3-7.7) k/uL Lymphocytes # (1.0-4.8) k/uL ABG pCO2 (35-45) mmHg ABG pO2 (83-108) mmHg ABG O2 Saturation (94-97) % Chloride (98-107) mmol/L Carbon Dioxide (22-30) mmol/L BUN (7-17) mg/dL Creatinine (0.52-1.04) mg/dL Glucose (74-99) mg/dL POC Glucose (mg/dL) 229 H 218 H (75-99) mg/dL Calcium (8.4-10.2) mg/dL ALT (4-34) U/L LD Isoenzymes 303 H (120-250) U/L Total Protein (6.3-8.2) g/dL Albumin (3.5-5.0) g/dL 04/03/20 04/04/20 04/04/20 Range/Units 20:23 00:31 03:37 WBC (3.8-10.6) k/uL RBC (3.80-5.40) m/uL Hgb (11.4-16.0) gm/dL Hct (34.0-46.0) % MCHC (31.0-37.0) g/dL RDW (11.5-15.5) % Neutrophils # (1.3-7.7) k/uL Lymphocytes # (1.0-4.8) k/uL ABG pCO2 (35-45) mmHg ABG pO2 (83-108) mmHg ABG O2 Saturation (94-97) % Chloride 116 H (98-107) mmol/L Carbon Dioxide 20 L (22-30) mmol/L BUN 32 H (7-17) mg/dL Creatinine 0.51 L (0.52-1.04) mg/dL Glucose 175 H (74-99) mg/dL POC Glucose (mg/dL) 163 H 178 H (75-99) mg/dL Calcium 7.5 L (8.4-10.2) mg/dL ALT 74 H (4-34) U/L LD Isoenzymes (120-250) U/L Total Protein 5.1 L (6.3-8.2) g/dL Albumin 2.2 L (3.5-5.0) g/dL 04/04/20 04/04/20 04/04/20 Range/Units 03:37 04:48 05:57 WBC 13.4 H (3.8-10.6) k/uL RBC 3.45 L (3.80-5.40) m/uL Hgb 9.4 L (11.4-16.0) gm/dL Hct 31.1 L (34.0-46.0) % MCHC 30.1 L (31.0-37.0) g/dL RDW 16.6 H (11.5-15.5) % Neutrophils # 12.3 H (1.3-7.7) k/uL Lymphocytes # 0.4 L (1.0-4.8) k/uL ABG pCO2 32 L (35-45) mmHg ABG pO2 64 L (83-108) mmHg ABG O2 Saturation 93.0 L (94-97) % Chloride (98-107) mmol/L Carbon Dioxide (22-30) mmol/L BUN (7-17) mg/dL Creatinine (0.52-1.04) mg/dL Glucose (74-99) mg/dL POC Glucose (mg/dL) 174 H (75-99) mg/dL Calcium (8.4-10.2) mg/dL ALT (4-34) U/L LD Isoenzymes (120-250) U/L Total Protein (6.3-8.2) g/dL Albumin (3.5-5.0) g/dL 04/04/20 Range/Units 08:23 WBC (3.8-10.6) k/uL RBC (3.80-5.40) m/uL Hgb (11.4-16.0) gm/dL Hct (34.0-46.0) % MCHC (31.0-37.0) g/dL RDW (11.5-15.5) % Neutrophils # (1.3-7.7) k/uL Lymphocytes # (1.0-4.8) k/uL ABG pCO2 (35-45) mmHg ABG pO2 (83-108) mmHg ABG O2 Saturation (94-97) % Chloride (98-107) mmol/L Carbon Dioxide (22-30) mmol/L BUN (7-17) mg/dL Creatinine (0.52-1.04) mg/dL Glucose (74-99) mg/dL POC Glucose (mg/dL) 187 H (75-99) mg/dL Calcium (8.4-10.2) mg/dL ALT (4-34) U/L LD Isoenzymes (120-250) U/L Total Protein (6.3-8.2) g/dL Albumin (3.5-5.0) g/dL Assessment and Plan Assessment: Agitated delirium and hypertensive emergency ones come off of sedation so far has been stable Acute hypoxic respiratory failure Covid19 pneumonia Acute pneumonia bacterial bilateral healthcare associated patient is being monitored off of antibiotics now Thrombocytopenia stable Acute respiratory and metabolic acidosis Acute hepatitis/elevated liver enzymes Acute diastolic heart failure Chronic anemia Fibromyalgia Hypertension hypertensive cardiovascular disease Plan: Monitor off of propofol resume Requip Zoloft and Elavil Continue gentle diuresis Ventilator support adjustment of ventilator as per clinical response and arterial blood gases, will attempt weaning trial starting later on today if remains stable [place] will put on CPAP of 5 pressure support of 5 and obtain arterial blood gas in half an hour is pretty secretions are still there was slightly better IV Lasix 20 mg daily keep on negative side Follow-up on Sputum culture and blood culture Enteral nutrition via tube feeding Trend liver enzymes Patient is not a candidate for IV REMdesivir due to markedly elevated liver enzymes IV steroids, we'll taper it Further recommendations pending plan of care as per clinical response of patient Continue anticoagulation with Lovenox We will hold Propofol today if remains stable consider weaning trial with CPAP and pressure support Time with Patient: Greater than 30
--- NOTE | 2020-04-04 11:31 | P.PN ---
<Ana Parks - Last Filed: 04/04/20 11:29> Subjective Progress Note Date: 04/04/20 CHIEF COMPLAINT: GI bleed HISTORY OF PRESENT ILLNESS: Patient is currently hospitalized for respiratory failure and is COVID positive. She is currently in the ICU and is intubated and sedated. She is being followed for her GI bleed. She is tolerating her tube feeds through the NG tube. She had one liquidy tarry stool yesterday. She is undergoing a trial of CPAP today. Afebrile. Hemoglobin remained stable at 9.4. WBC is up from 11.9 to 13.4. PHYSICAL EXAM: VITAL SIGNS: Reviewed. GENERAL: Well-developed in no acute distress. HEENT: No sclera icterus. Extraocular movements grossly intact. Moist buccal mucosa. Head is atraumatic, normocephalic. ABDOMEN: Soft. Nondistended. Nontender. NEUROLOGIC: Patient is intubated and sedated ASSESSMENT: 1. Acute GI bleed 2. Acute on chronic blood loss anemia 3. Elevated liver enzymes with large gallstone present on abdominal ultrasound 4. Acute hypoxic respiratory failure requiring intubation 5. COVID positive PLAN: -Continue supportive care -Continue to titrate to feedings per dietitian recommendations -Continue to monitor hemoglobin -Dr. Henry will proceed with upper and lower endoscopy when stable Physician [employer] Technician note has been reviewed by physician. Signing provider agrees with the documented findings, assessment, and plan of care. Objective - Vital Signs Vital signs: Vital Signs Temp 98.1 F 04/04/20 08:00 Pulse 69 04/04/20 11:00 Resp 25 H 04/04/20 11:00 BP 184/94 04/04/20 11:00 Pulse Ox 96 04/04/20 11:00 Intake & Output 04/03/20 04/04/20 04/04/20 18:59 06:59 18:59 Intake Total 2043.338 1860 740 Output Total 1700 495 225 Balance 763.414 3329 515 Intake: IV 1200 1200 500 0.9 NaCl- 1200 1200 500 Intake, IV Titration 213.338 Amount propofoL 1,000 mg In 213.338 Empty Bag 1 bag @ Titrate IV .Q0M [facility] Rx#: [id number] Tube Feeding 540 540 180 Other 90 120 60 Output: Urine 1700 495 225 Other: Voiding Method Indwelling Catheter Indwelling Catheter Indwelling Catheter - Labs CBC & Chem 7: 04/04/20 03:37 04/04/20 03:37 Labs: Abnormal Lab Results - Last 24 Hours (Table) 04/01/20 04/03/20 04/03/20 Range/Units 04:10 15:33 20:23 WBC (3.8-10.6) k/uL RBC (3.80-5.40) m/uL Hgb (11.4-16.0) gm/dL Hct (34.0-46.0) % MCHC (31.0-37.0) g/dL RDW (11.5-15.5) % Neutrophils # (1.3-7.7) k/uL Lymphocytes # (1.0-4.8) k/uL ABG pCO2 (35-45) mmHg ABG pO2 (83-108) mmHg ABG O2 Saturation (94-97) % Chloride (98-107) mmol/L Carbon Dioxide (22-30) mmol/L BUN (7-17) mg/dL Creatinine (0.52-1.04) mg/dL Glucose (74-99) mg/dL POC Glucose (mg/dL) 218 H 163 H (75-99) mg/dL Calcium (8.4-10.2) mg/dL ALT (4-34) U/L LD Isoenzymes 303 H (120-250) U/L Total Protein (6.3-8.2) g/dL Albumin (3.5-5.0) g/dL 04/04/20 04/04/20 04/04/20 Range/Units 00:31 03:37 03:37 WBC 13.4 H (3.8-10.6) k/uL RBC 3.45 L (3.80-5.40) m/uL Hgb 9.4 L (11.4-16.0) gm/dL Hct 31.1 L (34.0-46.0) % MCHC 30.1 L (31.0-37.0) g/dL RDW 16.6 H (11.5-15.5) % Neutrophils # 12.3 H (1.3-7.7) k/uL Lymphocytes # 0.4 L (1.0-4.8) k/uL ABG pCO2 (35-45) mmHg ABG pO2 (83-108) mmHg ABG O2 Saturation (94-97) % Chloride 116 H (98-107) mmol/L Carbon Dioxide 20 L (22-30) mmol/L BUN 32 H (7-17) mg/dL Creatinine 0.51 L (0.52-1.04) mg/dL Glucose 175 H (74-99) mg/dL POC Glucose (mg/dL) 178 H (75-99) mg/dL Calcium 7.5 L (8.4-10.2) mg/dL ALT 74 H (4-34) U/L LD Isoenzymes (120-250) U/L Total Protein 5.1 L (6.3-8.2) g/dL Albumin 2.2 L (3.5-5.0) g/dL 04/04/20 04/04/20 04/04/20 Range/Units 04:48 05:57 08:23 WBC (3.8-10.6) k/uL RBC (3.80-5.40) m/uL Hgb (11.4-16.0) gm/dL Hct (34.0-46.0) % MCHC (31.0-37.0) g/dL RDW (11.5-15.5) % Neutrophils # (1.3-7.7) k/uL Lymphocytes # (1.0-4.8) k/uL ABG pCO2 32 L (35-45) mmHg ABG pO2 64 L (83-108) mmHg ABG O2 Saturation 93.0 L (94-97) % Chloride (98-107) mmol/L Carbon Dioxide (22-30) mmol/L BUN (7-17) mg/dL Creatinine (0.52-1.04) mg/dL Glucose (74-99) mg/dL POC Glucose (mg/dL) 174 H 187 H (75-99) mg/dL Calcium (8.4-10.2) mg/dL ALT (4-34) U/L LD Isoenzymes (120-250) U/L Total Protein (6.3-8.2) g/dL Albumin (3.5-5.0) g/dL <William Henry - Last Filed: 04/04/20 15:01> Subjective As above. Hemoglobin remains stable. Last stool yesterday morning. Attempts at extubation planned for today. Will follow. Objective - Vital Signs Vital signs: Vital Signs Temp 98.3 F 04/04/20 12:00 Pulse 93 04/04/20 14:00 Resp 13 04/04/20 14:00 BP 169/86 04/04/20 14:00 Pulse Ox 94 L 04/04/20 14:00 Intake & Output 04/03/20 04/04/20 04/04/20 18:59 06:59 18:59 Intake Total 2043.338 1860 1250 Output Total 1700 495 320 Balance 586.252 4085 930 Weight 88.4 kg Intake: IV 1200 1200 800 0.9 NaCl- 1200 1200 800 Intake, IV Titration 213.338 Amount propofoL 1,000 mg In 213.338 Empty Bag 1 bag @ Titrate IV .Q0M [facility] Rx#: [id number] Tube Feeding 540 540 360 Other 90 120 90 Output: Urine 1700 495 320 Other: Voiding Method Indwelling Catheter Indwelling Catheter Indwelling Catheter - Labs CBC & Chem 7: 04/04/20 03:37 04/04/20 03:37 Labs: Abnormal Lab Results - Last 24 Hours (Table) 04/01/20 04/03/20 04/03/20 Range/Units 04:10 15:33 20:23 WBC (3.8-10.6) k/uL RBC (3.80-5.40) m/uL Hgb (11.4-16.0) gm/dL Hct (34.0-46.0) % MCHC (31.0-37.0) g/dL RDW (11.5-15.5) % Neutrophils # (1.3-7.7) k/uL Lymphocytes # (1.0-4.8) k/uL ABG pCO2 (35-45) mmHg ABG pO2 (83-108) mmHg ABG O2 Saturation (94-97) % Chloride (98-107) mmol/L Carbon Dioxide (22-30) mmol/L BUN (7-17) mg/dL Creatinine (0.52-1.04) mg/dL Glucose (74-99) mg/dL POC Glucose (mg/dL) 218 H 163 H (75-99) mg/dL Calcium (8.4-10.2) mg/dL ALT (4-34) U/L LD Isoenzymes 303 H (120-250) U/L Total Protein (6.3-8.2) g/dL Albumin (3.5-5.0) g/dL 04/04/20 04/04/20 04/04/20 Range/Units 00:31 03:37 03:37 WBC 13.4 H (3.8-10.6) k/uL RBC 3.45 L (3.80-5.40) m/uL Hgb 9.4 L (11.4-16.0) gm/dL Hct 31.1 L (34.0-46.0) % MCHC 30.1 L (31.0-37.0) g/dL RDW 16.6 H (11.5-15.5) % Neutrophils # 12.3 H (1.3-7.7) k/uL Lymphocytes # 0.4 L (1.0-4.8) k/uL ABG pCO2 (35-45) mmHg ABG pO2 (83-108) mmHg ABG O2 Saturation (94-97) % Chloride 116 H (98-107) mmol/L Carbon Dioxide 20 L (22-30) mmol/L BUN 32 H (7-17) mg/dL Creatinine 0.51 L (0.52-1.04) mg/dL Glucose 175 H (74-99) mg/dL POC Glucose (mg/dL) 178 H (75-99) mg/dL Calcium 7.5 L (8.4-10.2) mg/dL ALT 74 H (4-34) U/L LD Isoenzymes (120-250) U/L Total Protein 5.1 L (6.3-8.2) g/dL Albumin 2.2 L (3.5-5.0) g/dL 04/04/20 04/04/20 04/04/20 Range/Units 04:48 05:57 08:23 WBC (3.8-10.6) k/uL RBC (3.80-5.40) m/uL Hgb (11.4-16.0) gm/dL Hct (34.0-46.0) % MCHC (31.0-37.0) g/dL RDW (11.5-15.5) % Neutrophils # (1.3-7.7) k/uL Lymphocytes # (1.0-4.8) k/uL ABG pCO2 32 L (35-45) mmHg ABG pO2 64 L (83-108) mmHg ABG O2 Saturation 93.0 L (94-97) % Chloride (98-107) mmol/L Carbon Dioxide (22-30) mmol/L BUN (7-17) mg/dL Creatinine (0.52-1.04) mg/dL Glucose (74-99) mg/dL POC Glucose (mg/dL) 174 H 187 H (75-99) mg/dL Calcium (8.4-10.2) mg/dL ALT (4-34) U/L LD Isoenzymes (120-250) U/L Total Protein (6.3-8.2) g/dL Albumin (3.5-5.0) g/dL 04/04/20 04/04/20 Range/Units 11:36 12:48 WBC (3.8-10.6) k/uL RBC (3.80-5.40) m/uL Hgb (11.4-16.0) gm/dL Hct (34.0-46.0) % MCHC (31.0-37.0) g/dL RDW (11.5-15.5) % Neutrophils # (1.3-7.7) k/uL Lymphocytes # (1.0-4.8) k/uL ABG pCO2 (35-45) mmHg ABG pO2 (83-108) mmHg ABG O2 Saturation 93.0 L (94-97) % Chloride (98-107) mmol/L Carbon Dioxide (22-30) mmol/L BUN (7-17) mg/dL Creatinine (0.52-1.04) mg/dL Glucose (74-99) mg/dL POC Glucose (mg/dL) 170 H (75-99) mg/dL Calcium (8.4-10.2) mg/dL ALT (4-34) U/L LD Isoenzymes (120-250) U/L Total Protein (6.3-8.2) g/dL Albumin (3.5-5.0) g/dL Assessment and Plan (1) GI bleed Current Visit: Yes Status: Acute Code(s): K92.2 - GASTROINTESTINAL HEMORRHAGE, UNSPECIFIED SNOMED Code(s): 71642874
[2020-04-04 11:38] LABS: Glucose,Whole Blood 170 mg/dL (75-99)
[2020-04-04 13:02] LABS: Allen Test Performed? Yes
[2020-04-04 13:03] LABS: ABG Base Excess -3.7 mmol/L; ABG HCO3 22 mmol/L (21-25); ABG PCO2 38 mmHg (35-45); ABG PH 7.36 (7.35-7.45); ABG PO2 83 mmHg (83-108); ABG TCO2 23 mmol/L (19-24)
[2020-04-04] MEDS: hydrALAZINE HCL 20 MG/ML 1 ML VIAL IVP PRN ×2 (14:36→18:41)
[2020-04-04 15:46] LABS: Glucose,Whole Blood 187 mg/dL (75-99)
[2020-04-04] MEDS: methylPREDNISolone SOD SUCCI 40 MG/ML 1 ML VIAL IV SCH ×2 (16:26→23:59)
[2020-04-04] MEDS ORDERED: FLUCONAZOLE 100 MG TAB PO ONE (22:00)
[2020-04-04] MEDS ORDERED: FLUCONAZOLE IN NACL,ISO-OSM 200 MG in SALINE 1 100ML.BAG IVPB STA (22:31)
--- NOTE | 2020-04-04 22:54 | PN ---
PROGRESS NOTE DATE OF SERVICE: 04/04/2020 REASON FOR FOLLOWUP: Pneumonia. The patient is currently afebrile. The patient is hemodynamically stable. FiO2 is currently stable. She was undergoing a weaning trial when evaluated. No vomiting or diarrhea has been reported by nursing staff. PHYSICAL EXAMINATION: Blood pressure 130/75, pulse of 83, temperature 98.4. She is 92% on 4 L nasal cannula. General description: The patient is an elderly female lying in bed in no distress. Respiratory system: Unlabored breathing with decreased breath sounds in the base, with no wheeze. Heart S1, S2. Regular rate and rhythm. Abdomen soft, no tenderness. LABORATORY DATA: Hemoglobin 9.4, white count 13.4, BUN of 32, creatinine 0.51. DIAGNOSTIC IMPRESSION AND PLAN: 1. Patient with acute respiratory failure which is multifactorial in this patient who did have a component of pneumonia, adequately treated. The patient on antibiotic and sputum were negative. 2. Patient now with slight worsening of the white count, could be steroid related or oropharyngeal candidiasis. We will empirically add Diflucan if no contraindication and monitor clinical course closely. MMODL / IJN: [id number] / HÉCTOR
[2020-04-04 23:47] LABS: Glucose,Whole Blood 170 mg/dL (75-99)
[2020-04-05] MEDS: HYDROmorphone 1 MG/ML 1 ML SYRINGE IVP PRN ×8 (02:21→20:21)
[2020-04-05 04:34] LABS: Anisocytosis Slight; Basophils # (A) 0.1 k/uL (0-0.2); Basophils % (A) 0 %; Eosinophils # (A) 0.2 k/uL (0-0.7); Eosinophils % (A) 1 %; HCT 32.9 % (34.0-46.0); HGB 10.1 gm/dL (11.4-16.0); Hypochromasia Marked; Lymphocytes # (A) 0.3 k/uL (1.0-4.8); Lymphocytes % (A) 2 %; MCH 27.3 pg (25.0-35.0); MCHC 30.6 g/dL (31.0-37.0); MCV 89.1 fL (80.0-100.0); Mean Platelet Volume 8.4; Monocytes # (A) 0.5 k/uL (0-1.0); Monocytes % (A) 3 %; Neutrophils # (A) 16.7 k/uL (1.3-7.7); Neutrophils % (A) 93 %; Platelet Count 515 k/uL (150-450); Poikilocytosis Moderate; RDW 16.6 % (11.5-15.5); WBC 17.9 k/uL (3.8-10.6)
[2020-04-05 04:44] LABS: ALT 88 U/L (4-34); AST 53 U/L (14-36); African American GFR (CKD) >90 (>60 ml/min/1.73 sqM); Albumin 2.5 g/dL (3.5-5.0); Alkaline Phosphatase 102 U/L (38-126); Anion Gap 3 mmol/L; Blood Urea Nitrogen 25 mg/dL (7-17); Calcium 7.7 mg/dL (8.4-10.2); Carbon Dioxide 21 mmol/L (22-30); Chloride 114 mmol/L (98-107); Glucose 157 mg/dL (74-99); Non-African American GFR(CKD) >90 (>60 ml/min/1.73 sqM); Potassium 3.8 mmol/L (3.5-5.1); Sodium 138 mmol/L (137-145); Total Bilirubin 0.5 mg/dL (0.2-1.3); Total Protein 5.6 g/dL (6.3-8.2)
[2020-04-05 06:38] LABS: Glucose,Whole Blood 168 mg/dL (75-99)
[2020-04-05] MEDS: INSULIN ASPART (NovoLOG) 100 UNIT/ML VIAL SQ SCH ×4 (06:52→17:20)
--- NOTE | 2020-04-05 07:45 | XR ---
EXAMINATION TYPE: XR chest 1V portable DATE OF EXAM: 04/05/2020 COMPARISON: 04/04/2020 HISTORY: Shortness of breath TECHNIQUE: Single frontal view of the chest is obtained. FINDINGS: ET and NG tube have been removed. PICC line seen and there is persistent diffuse pleural-p arenchymal changes. Heart size stable. No sizable pneumothorax. Arthropathy of the shoulders. IMPRESSION: 1. Stable diffuse bilateral pleural-parenchymal changes correlate for ARDS, diffuse pneumonia or pulm onary edema.
[2020-04-05] MEDS: CHOLECALCIFEROL 400 UNIT TAB PO SCH (07:54)
[2020-04-05] MEDS: ZINC SULFATE 220 MG CAP PO SCH (07:54)
[2020-04-05] MEDS: ASCORBIC ACID 500 MG TAB PO SCH ×2 (07:54→21:57)
[2020-04-05] MEDS: PANTOPRAZOLE 40 MG/10 ML VIAL IVP SCH ×2 (08:17→20:16)
[2020-04-05] MEDS: ENOXAPARIN 40 MG/0.4 ML SYRINGE SQ SCH ×2 (08:18→20:12)
[2020-04-05] MEDS: methylPREDNISolone SOD SUCCI 40 MG/ML 1 ML VIAL IV SCH ×2 (08:18→15:35)
[2020-04-05] MEDS: FUROSEMIDE 10 MG/ML 2 ML VIAL IV SCH (08:18)
[2020-04-05] MEDS ORDERED: FLUCONAZOLE 100 MG TAB PO SCH (09:00)
[2020-04-05] MEDS: SODIUM CHLORIDE 0.9% 1,000 ML IV SCH ×3 (10:42→20:12)
[2020-04-05 11:09] LABS: Glucose,Whole Blood 172 mg/dL (75-99)
--- NOTE | 2020-04-05 13:25 | P.PN ---
Subjective 69-year-old female was admitted for acute hypoxic respiratory failure secondary to covid 19 pneumonia. She was extubated yesterday patient the was intubated for about 10 days and patient is still lethargic does respond to commands but the unable to verbalize at this time. There is a concern that patient the cannot be able to swallow and is unable to swallow because of which are speech therapy was consulted who will evaluate the patient on Tuesday. And is still quite a bit lethargic and encephalopathic from sedatives she received during intubation. Review of systems: Unable to obtain due to her clinical condition All inpatient medications were reviewed and appropriate changes in these medications as dictated in the interval history and assessment and plan. Objective - Vital Signs Vital signs: Vital Signs Temp 98.3 F 04/05/20 12:00 Pulse 69 04/05/20 12:00 Resp 16 04/05/20 12:00 BP 154/79 04/05/20 12:00 Pulse Ox 92 L 04/05/20 12:00 Intake & Output 04/04/20 04/05/20 04/05/20 18:59 06:59 18:59 Intake Total 1650 1200 600 Output Total 860 1235 1860 Balance Weight 88.4 kg 91.7 kg Intake: IV 1200 1200 600 0.9 NaCl- 1200 1100 600 Fluconazole in NaCl,Iso- 100 Osm 200 mg In Saline 1 100ml.bag @ 100 mls/hr IVPB ONCE STA Rx#: [id number] Tube Feeding 360 Other 90 Output: Urine 860 1235 1860 Other: Voiding Method Indwelling Catheter Indwelling Catheter Indwelling Catheter - Exam PHYSICAL EXAMINATION: GENERAL: Lethargic, responding to commands unable to verbalize at this time HEENT: Pupils are round and equally reacting to light. EOMI. No scleral icterus. No conjunctival pallor. Normocephalic, atraumatic. No pharyngeal erythema. No thyromegaly. CARDIOVASCULAR: S1 and S2 present. No murmurs, rubs, or gallops. PULMONARY: Chest is clear to auscultation, no wheezing or crackles. ABDOMEN: Soft, nontender, nondistended, normoactive bowel sounds. No palpable organomegaly. MUSCULOSKELETAL: No joint swelling or deformity. EXTREMITIES: No cyanosis, clubbing, or pedal edema. NEUROLOGICAL: Unable to assess SKIN: No rashes. Note: Because of COVID 19 isolation, some of the history and physical exam findings are indirect and obtained from nursing staff, and other physician examinations to avoid unnecessary contact with the patient. - Labs CBC & Chem 7: 04/05/20 04:22 04/05/20 04:22 Labs: Abnormal Lab Results - Last 24 Hours (Table) 04/04/20 04/04/20 04/05/20 Range/Units 15:45 23:46 04:22 WBC (3.8-10.6) k/uL RBC (3.80-5.40) m/uL Hgb (11.4-16.0) gm/dL Hct (34.0-46.0) % MCHC (31.0-37.0) g/dL RDW (11.5-15.5) % Plt Count (150-450) k/uL Neutrophils # (1.3-7.7) k/uL Lymphocytes # (1.0-4.8) k/uL Chloride 114 H (98-107) mmol/L Carbon Dioxide 21 L (22-30) mmol/L BUN 25 H (7-17) mg/dL Creatinine 0.44 L (0.52-1.04) mg/dL Glucose 157 H (74-99) mg/dL POC Glucose (mg/dL) 187 H 170 H (75-99) mg/dL Calcium 7.7 L (8.4-10.2) mg/dL AST 53 H (14-36) U/L ALT 88 H (4-34) U/L Total Protein 5.6 L (6.3-8.2) g/dL Albumin 2.5 L (3.5-5.0) g/dL 04/05/20 04/05/20 04/05/20 Range/Units 04:22 06:36 11:06 WBC 17.9 H (3.8-10.6) k/uL RBC 3.70 L (3.80-5.40) m/uL Hgb 10.1 L (11.4-16.0) gm/dL Hct 32.9 L (34.0-46.0) % MCHC 30.6 L (31.0-37.0) g/dL RDW 16.6 H (11.5-15.5) % Plt Count 515 H (150-450) k/uL Neutrophils # 16.7 H (1.3-7.7) k/uL Lymphocytes # 0.3 L (1.0-4.8) k/uL Chloride (98-107) mmol/L Carbon Dioxide (22-30) mmol/L BUN (7-17) mg/dL Creatinine (0.52-1.04) mg/dL Glucose (74-99) mg/dL POC Glucose (mg/dL) 168 H 172 H (75-99) mg/dL Calcium (8.4-10.2) mg/dL AST (14-36) U/L ALT (4-34) U/L Total Protein (6.3-8.2) g/dL Albumin (3.5-5.0) g/dL Assessment and Plan Plan: -Acute hypoxic respiratory failure secondary to covid 19 pneumonia patient was admitted yesterday. Present illness Junaid oxygen -Toxic encephalopathy: Secondary to prolonged intubation prolonged acidity affect expected to improve -Patient is also being treated for secondary back to pneumonia and presently on antibiotics -Hepatitis: We will secondary to Covid 19 -Chronic diastolic dysfunction with mild acute exacerbation patient is presently euvolemic him on diuretics which will be continued -Acute respiratory distress syndrome secondary to assessment #1 and patient is on systemic steroids which will be continued -Dysphagia: Secondary to prolonged intubation and sedative effect patient is unable to swallow at this time -Restless leg syndrome -DVT prophylaxis with the Lovenox
--- NOTE | 2020-04-05 15:03 | P.PN ---
Subjective Progress Note Date: 04/05/20 CHIEF COMPLAINT: GI bleed HISTORY OF PRESENT ILLNESS: The patient is a 69-year-old female presents with GI bleed. She is also COVID-19. She is intubated and sedated. She has no recent blood transfusions. She has no active GI bleed today. ROS: No fevers or chills. No new chest pain. No productive sputum PHYSICAL EXAM: VITAL SIGNS: Reviewed CONSTITUTIONAL: Well developed and in no acute distress. EYES: Conjuctivae without sclera icterus. Extraocular movements grossly intact. HEAD, EARS, NOSE, THROAT: Moist buccal mucosa. Head is atraumatic, normocephalic. NECK: Supple. No thyroidomegaly. RESPIRATORY: Non-labored respirations and equal bilateral excursions. CARDIOVASCULAR: 2+ radial pulses. ABDOMEN: No peritonitis. MUSCULOSKELETAL: No gross deformity of the lower extremities noted. No clubbing. No cyanosis. SKIN: Good skin turgor. Well perfused. NEUROLOGIC: Cranial nerves II through XII grossly intact. No focal or lateralizing signs. PSYCH: Appropriate affect. Alert and oriented to person, place and time. CLINICAL LABS: White blood cell count up from 13.4 to 17.9. Hemoglobin improved to 10.1 from 9.4 ASSESSMENT: 1. Anemia 2. GI bleed 3. COVID-19 positive PLAN: 1. Monitor hemoglobin 2. IV antibiotics for leukocytosis Objective - Vital Signs Vital signs: Vital Signs Temp 98.3 F 04/05/20 12:00 Pulse 89 04/05/20 14:00 Resp 19 04/05/20 14:00 BP 166/87 04/05/20 14:00 Pulse Ox 89 L 04/05/20 14:00 Intake & Output 04/04/20 04/05/20 04/05/20 18:59 06:59 18:59 Intake Total 1650 1200 800 Output Total 860 1235 1960 Balance Weight 88.4 kg 91.7 kg Intake: IV 1200 1200 800 0.9 NaCl- 1200 1100 800 Fluconazole in NaCl,Iso- 100 Osm 200 mg In Saline 1 100ml.bag @ 100 mls/hr IVPB ONCE STA Rx#: [id number] Tube Feeding 360 Other 90 Output: Urine 860 1235 1960 Other: Voiding Method Indwelling Catheter Indwelling Catheter Indwelling Catheter - Labs CBC & Chem 7: 04/05/20 04:22 04/05/20 04:22 Labs: Abnormal Lab Results - Last 24 Hours (Table) 04/04/20 04/04/20 04/05/20 Range/Units 15:45 23:46 04:22 WBC (3.8-10.6) k/uL RBC (3.80-5.40) m/uL Hgb (11.4-16.0) gm/dL Hct (34.0-46.0) % MCHC (31.0-37.0) g/dL RDW (11.5-15.5) % Plt Count (150-450) k/uL Neutrophils # (1.3-7.7) k/uL Lymphocytes # (1.0-4.8) k/uL Chloride 114 H (98-107) mmol/L Carbon Dioxide 21 L (22-30) mmol/L BUN 25 H (7-17) mg/dL Creatinine 0.44 L (0.52-1.04) mg/dL Glucose 157 H (74-99) mg/dL POC Glucose (mg/dL) 187 H 170 H (75-99) mg/dL Calcium 7.7 L (8.4-10.2) mg/dL AST 53 H (14-36) U/L ALT 88 H (4-34) U/L Total Protein 5.6 L (6.3-8.2) g/dL Albumin 2.5 L (3.5-5.0) g/dL 04/05/20 04/05/20 04/05/20 Range/Units 04:22 06:36 11:06 WBC 17.9 H (3.8-10.6) k/uL RBC 3.70 L (3.80-5.40) m/uL Hgb 10.1 L (11.4-16.0) gm/dL Hct 32.9 L (34.0-46.0) % MCHC 30.6 L (31.0-37.0) g/dL RDW 16.6 H (11.5-15.5) % Plt Count 515 H (150-450) k/uL Neutrophils # 16.7 H (1.3-7.7) k/uL Lymphocytes # 0.3 L (1.0-4.8) k/uL Chloride (98-107) mmol/L Carbon Dioxide (22-30) mmol/L BUN (7-17) mg/dL Creatinine (0.52-1.04) mg/dL Glucose (74-99) mg/dL POC Glucose (mg/dL) 168 H 172 H (75-99) mg/dL Calcium (8.4-10.2) mg/dL AST (14-36) U/L ALT (4-34) U/L Total Protein (6.3-8.2) g/dL Albumin (3.5-5.0) g/dL Assessment and Plan (1) Anemia Current Visit: Yes Status: Acute Code(s): D64.9 - ANEMIA, UNSPECIFIED SNOMED Code(s): 924591312 (2) COVID-19 Current Visit: Yes Status: Acute Code(s): U07.1 - COVID-19 SNOMED Code(s): 480006527 (3) GI bleed Current Visit: Yes Status: Acute Code(s): K92.2 - GASTROINTESTINAL HEMORRHAGE, UNSPECIFIED SNOMED Code(s): 68846141
[2020-04-05 17:19] LABS: Glucose,Whole Blood 122 mg/dL (75-99)
[2020-04-05] MEDS: FLUCONAZOLE IN NACL,ISO-OSM 100 MG in SALINE 1 50ML.BAG IVPB SCH (20:16)
--- NOTE | 2020-04-05 22:00 | PN ---
PROGRESS NOTE DATE OF SERVICE: 04/05/2020. REASON FOR FOLLOWUP: Pneumonia. INTERVAL HISTORY: The patient is currently afebrile. The patient has been extubated. Mentation remains to be an issue. She was unable to provide any history. No vomiting, diarrhea or any other changes reported by nursing staff. On examination: Blood pressure 160/84, pulse of 62, temperature is 98.6, she is 93% on 6 L nasal cannula. General description: The patient is an elderly female lying in bed in no distress. Respiratory system: Unlabored breathing with decreased breath sounds in the bases. No wheeze. Heart S1, S2. Regular rate and rhythm. ABDOMEN: Soft, no tenderness. LABS: Hemoglobin is 10.3, white count 17.9, BUN of 25, creatinine 0.44. Liver enzymes mildly elevated. Sputum was negative. DIAGNOSTIC IMPRESSION AND PLAN: Patient with acute respiratory failure which is multifactorial in this patient who did have a component of pneumonia. Sputum was negative and the patient has completed her antibiotic therapy now with slight worsening of the white count could be related to the steroids started yesterday, no improvement. Will repeat her inflammatory markers and Procalcitonin tomorrow and continue supportive care. MMODL / IJN: [id number] / HÉCTOR
--- NOTE | 2020-04-05 23:13 | P.PN ---
Subjective Progress Note Date: 04/05/20 Principal diagnosis: Acute hypoxic respiratory failure Covid19 pneumonia Acute respiratory and metabolic acidosis Acute hepatitis/elevated liver enzymes Acute diastolic heart failure and fluid overload Chronic anemia Fibromyalgia Hypertension hypertensive cardiovascular disease 04/05/2020, patient seen eval reexamined successfully weaned and extubated yesterday has been on supplemental oxygen 2-4 L, in the last 8-12 hours however decompensation in oxygenation status as well as patient even though awake but remains agitated appears to have a agitated delirium, does require Dilaudid at a regular interval, remains afebrile, oxygen saturation is 99% on 10 L nonrebreat her mask, patient cannot take by mouth medicines are listed IV, will try morphine as needed DC Dilaudid, 04/04/2020, patient seen eval examined during the rounds labs reviewed medications reviewed care plan discussed, patient is awake now remains off of propofol since yesterday, does make intermittent eye contact, remains slightly withdrawn however, respiratory status stable, remains on assist control mode rate of 24, tidal volume is 450, +5 of PEEP, 40% oxygen, peak airway pressure stable, chest x-ray shows bilateral diffuse interstitial infiltrate stable ET tube and NG tube in PICC line, white cell count is 13,400, hemoglobin and hematocrit stable 9.4 and 31, arterial blood gases reviewed pH is 7.4 to pCO2 32 pO2 64, BUN/creatinine is 32 and 0.5, patient is reviewed Lovenox remains 2040 mg subcu twice a day on IV furosemide, Solu-Medrol is 60 mg IV every 6 we'll decrease it to every 12 04/03/2020, patient seen eval examined during rounds labs reviewed medications reviewed, care plan discussed, overall hemodynamically he remains stable blood pressure spiked up on hydralazine when necessary, seems to be helping, patient sedated with propofol drip 50 mics, attempts for weaning of protocol has been unsuccessful as patient becomes agitated, attempted Precedex drip has been unsuccessful as well, current vent settings include assist control rate of 24 breathing 24, FiO2 is 40%, PEEP is 5, tidal volume is 450, chest x-ray stable ET tube with bilateral multifocal infiltrate with consolidation consistent with cold with 19 pneumonia not essentially much change from the prior x-ray, ET tube and NG tube was stable, patient is getting tube feed bolus feeding, labs including ABG chemistry reviewed 04/02/2020, patient seen eval examined during the rounds labs reviewed medications reviewed care plan discussed, patient remains sedated with propofol on ventilator for full ventilator support, currently patient is on assist control mode rate Tuesday for breathing 24, tidal volume is 450, 5 of PEEP, 40% oxygen, propofol is 50 mics, chest x-ray from today reviewed continue show patc hy bilateral infiltrate without any significant interval change, arterial blood gases revealed pH of 7.43 pCO2 32, C-reactive protein is down to 21, BUN/creatinine is 34/.49, white cell count and hemoglobin remained stable, medications reviewed, she remains on broad-spectrum antibiotic with cephapirin, Lovenox, gentle diuresis with Lasix, blood pressure control with IV hydralazine, patient remains on high-dose IV steroids, discussed with the staff at length, will stop the propofol drip and once patient is awake put on CPAP 5 pressure support of 5 gas after half an hour also check weaning parameters 04/01/2020, patient seen eval examined labs reviewed medications reviewed care plan discussed with the staff at length patient had a sedation holiday today she is arousable and awake follows simple commands with blood pressure went up becomes agitated anxious requiring a reinitiation of propofol drip, ventilator setting remains unchanged, patient is on rate of 24 tidal volume is 450, PEEP is 5, oxygen is 40%, chest x-ray from today reviewed remains overall stable with stable lines and tubes 03/31/2020, patient seen eval examined during the rounds labs reviewed medications reviewed care plan discussed, patient remains on full ventilator support, propofol was changed to Precedex but however patient becomes agitated so back on propofol when setting remains unchanged have been on assist control rate of 24, PEEP is 5, FiO2 is 40%, tidal volume of 450, care plan discussed with the staff at length critical care time 35 minutes 03/30/2020, patient seen eval examined during the rounds labs reviewed medications reviewed, remains sedated with propofol, current vent setting include his control rate of 24 breathing 24 tidal volume is 450, deep is 5 now, FiO2 is 40%, tolerating tube feed very well, chest x-ray reviewed slightly better but stable bilateral infiltrate consistent with atypical pneumonia, patient continued IVs very well with 20 mg Lasix daily, white cell count remained stable, with stable hemoglobin and however decreasing platelet count noted, dear blood gases revealed pH of 7.4 to pCO2 34 pO2 of 62, BUN/creatinine is 36 and 0.62, left he continue show downward trend, inflammatory markers reviewed still elevated but showing a downward trend 03/29/2020, patient seen eval examined during the rounds labs reviewed medications reviewed, care plan discussed with the nursing staff at length, patient has been on assist control rate of the 24 PEEP of 8 400 tidal volume 50% oxygen, ventilator has been adjusted with reduction in PEEP and oxygen, patient's saturation remained stable 91-92%, next step he is to stop propofol and reassess the mental status and if patient remains stable oxygen randolph and hemodynamics can do a CPAP pressure support trial in the meantime we'll continue IV steroids, antibiotics, CBC and ABG reviewed, today's chest x-ray showed bilateral interstitial infiltrate, predominantly at the bases, patient has been on Lasix 20 mg daily diuresing very well, critical care time 35 minutes 03/28/2020, patient seen eval examined during the rounds labs reviewed medications reviewed care plan discussed oxygen has been down to 40% now. The patient is PEEP of 8, otherwise ventilator setting remains stable, patient is scheduled for PICC line later on today, remains on propofol, remains on broad- spectrum antibiotics, labs from today has been reviewed hemoglobin is stable 7.9, d-dimer is 3.24, arterial blood gases stable pH is 7.41 pCO2 35 pO2 96, BUN/creatinine is 51 and 1.05, ferritin level remains more than 26,000, AST ALT continued decline however today is 367 and 558, C-reactive protein checked 69.5 her chest x-ray earlier than today remains there however appears to have slightly progressed 03/27/2020, patient seen eval examined during the rounds labs reviewed medications reviewed care plan discussed, propofol has been discontinued patient because very restless and anxious, we'll restart propofol, patient has been on full ventilator support assist control 24 tidal volume of 450, PEEP is 10, oxygen is 70%, arterial blood gases reviewed when lower the FiO2 to 60% now plan to bring down the FiO2 to 50% and PEEP of 8 next 24 hours, sputum and blood cultures reviewed no growth so far, chest x-ray performed today reviewed signifi cant improvement in infiltrates seen bilaterally, patient has a poor urine output throughout the night, 20 mg of Lasix was given put out 600 mL of urine patient continued to be on gentle hydration, remain on cefapime and Vanco, Lovenox Solu-Medrol multivitamin and vitamin C zinc and Lovenox, white cell count is stable 10,500 hemoglobin and hematocrit 7.2 and 24, general surgery has been following patient is considered to get EGD and colonoscopy once stable, arterial blood gas revealed pH of 7.39 pCO2 of 39 pO2 of 124, bicarb 25, liver enzymes continue to come down AST and ALT now is 944/809, hepatitis panel normal and nonreactive 03/26/2020, patient seen eval examined in the ICU care plan discussed with the staff, FiO2 has been down to 60%, patient remains on assist control tidal volume of 450, PEEP is 10, respiratory rate is 24 breathing with the respirator pH has been improved significantly, patient is making adequate urine chest x-ray compared with yesterday's x-ray some improvement have been noted, white cell count is 11,000, hemoglobin 7.9 which is stable, arterial blood gas improved to 7.39, pCO2 of 40, pO2 112, BUN/creatinine is 33/0.96, lactic acid was 5.9 down to 1.3 now, ferritin level noted to be 12,800, AST and ALT are 4014 100 with LDH over 21,500, today LFTs significantly improved AST is down to 2795 and ALT is 1222, pro calcitonin is 0.84, suspect some component of heart failure as well as pneumonia, will get an echocardiogram as well as start patient on broad-spectrum antibiotics with cefepime and Vanco Patient seen and evaluated examined in the emergency department, patient came into the ER from the office of Dr. Aleman due to progressive shortness of breath, patient has acute on chronic hypoxic respiratory failure on 4 L oxygen, also has issues associated with pneumonia presumed to be cold with 19, however, testing was negative, patient used to smoke in the remote past quit about 20-30 years ago due to severity or shortness of breath and hypoxia with saturation of 76% on 100% oxygen and respiratory distress patient was intubated due to poor tolerance on BiPAP, patient Covid testing came back positive, chest x-ray showing diffuse infiltrate she also has been noted to have elevated liver enzymes due to elevated liver enzymes will not start IV REMdesivir, Initial ABG pH is 7.18, pCO2 is 63 pO2 was only 33 Objective - Vital Signs Vital signs: Vital Signs Temp 98.6 F 04/05/20 20:00 Pulse 56 L 04/05/20 22:00 Resp 7 L 04/05/20 22:00 BP 186/101 04/05/20 22:00 Pulse Ox 99 04/05/20 22:00 Intake & Output 04/05/20 04/05/20 04/06/20 06:59 18:59 06:59 Intake Total 1200 1200 250 Output Total 1235 2585 250 Balance -35 -1385 0 Weight 91.7 kg Intake: IV 1200 1200 250 0.9 NaCl- 1100 1200 200 Fluconazole in NaCl,Iso- 50 Osm 100 mg In Saline 1 50ml.bag @ 50 mls/hr IVPB HS NONA Rx#:[id number] Fluconazole in NaCl,Iso- 100 Osm 200 mg In Saline 1 100ml.bag @ 100 mls/hr IVPB ONCE STA Rx#: [id number] Output: Urine 1235 2585 250 Other: Voiding Method Indwelling Catheter Indwelling Catheter Indwelling Catheter - Exam Successfully weaned and extubated since yesterday - Constitutional General appearance: average body habitus, mild distress, restless intermittently agitated - EENT Ears: bilateral: normal - Neck Carotids: bilateral: upstroke normal Thyroid: bilateral: normal size - Respiratory Respiratory: bilateral: diminished - Cardiovascular Rhythm: regular Heart sounds: normal: S1, S2 - Gastrointestinal General gastrointestinal: normal bowel sounds - Labs CBC & Chem 7: 04/05/20 04:22 04/05/20 04:22 Labs: Abnormal Lab Results - Last 24 Hours (Table) 04/04/20 04/05/20 04/05/20 Range/Units 23:46 04:22 04:22 WBC 17.9 H (3.8-10.6) k/uL RBC 3.70 L (3.80-5.40) m/uL Hgb 10.1 L (11.4-16.0) gm/dL Hct 32.9 L (34.0-46.0) % MCHC 30.6 L (31.0-37.0) g/dL RDW 16.6 H (11.5-15.5) % Plt Count 515 H (150-450) k/uL Neutrophils # 16.7 H (1.3-7.7) k/uL Lymphocytes # 0.3 L (1.0-4.8) k/uL Chloride 114 H (98-107) mmol/L Carbon Dioxide 21 L (22-30) mmol/L BUN 25 H (7-17) mg/dL Creatinine 0.44 L (0.52-1.04) mg/dL Glucose 157 H (74-99) mg/dL POC Glucose (mg/dL) 170 H (75-99) mg/dL Calcium 7.7 L (8.4-10.2) mg/dL AST 53 H (14-36) U/L ALT 88 H (4-34) U/L Total Protein 5.6 L (6.3-8.2) g/dL Albumin 2.5 L (3.5-5.0) g/dL 04/05/20 04/05/20 04/05/20 Range/Units 06:36 11:06 17:16 WBC (3.8-10.6) k/uL RBC (3.80-5.40) m/uL Hgb (11.4-16.0) gm/dL Hct (34.0-46.0) % MCHC (31.0-37.0) g/dL RDW (11.5-15.5) % Plt Count (150-450) k/uL Neutrophils # (1.3-7.7) k/uL Lymphocytes # (1.0-4.8) k/uL Chloride (98-107) mmol/L Carbon Dioxide (22-30) mmol/L BUN (7-17) mg/dL Creatinine (0.52-1.04) mg/dL Glucose (74-99) mg/dL POC Glucose (mg/dL) 168 H 172 H 122 H (75-99) mg/dL Calcium (8.4-10.2) mg/dL AST (14-36) U/L ALT (4-34) U/L Total Protein (6.3-8.2) g/dL Albumin (3.5-5.0) g/dL Assessment and Plan Assessment: Agitated delirium along with metabolic encephalopathy Acute hypoxic respiratory failure Covid19 pneumonia Acute pneumonia bacterial bilateral healthcare associated patient is being monitored off of antibiotics now Thrombocytopenia stable Acute respiratory and metabolic acidosis Acute hepatitis/elevated liver enzymes Acute diastolic heart failure Chronic anemia Fibromyalgia Hypertension hypertensive cardiovascular disease Plan: Continue morphine as needed, avoid benzodiazepine Continue gentle diuresis Ventilator support adjustment of ventilator as per clinical response and arter ial blood gases, will attempt weaning trial starting later on today if remains stable Beaver will put on CPAP of 5 pressure support of 5 and obtain arterial blood gas in half an hour is pretty secretions are still there was slightly better IV Lasix 20 mg daily keep on negative side Trend liver enzymes Patient is not a candidate for IV REMdesivir due to markedly elevated liver enzymes IV steroids, Further recommendations pending plan of care as per clinical response of patient Continue anticoagulation with Lovenox
[2020-04-06 00:44] LABS: Glucose,Whole Blood 149 mg/dL (75-99)
[2020-04-06] MEDS: methylPREDNISolone SOD SUCCI 40 MG/ML 1 ML VIAL IV SCH ×3 (00:58→20:09)
[2020-04-06] MEDS: INSULIN ASPART (NovoLOG) 100 UNIT/ML VIAL SQ SCH ×4 (00:59→17:25)
[2020-04-06] MEDS: HYDROmorphone 1 MG/ML 1 ML SYRINGE IVP PRN ×3 (00:59→22:34)
[2020-04-06 04:32] LABS: Anisocytosis Slight; Basophils % (A) 0 %; Eosinophils # (A) 0.2 k/uL (0-0.7); Eosinophils % (A) 1 %; HCT 31.6 % (34.0-46.0); HGB 9.9 gm/dL (11.4-16.0); Hypochromasia Marked; Lymphocytes # (A) 0.4 k/uL (1.0-4.8); Lymphocytes % (A) 2 %; MCHC 31.5 g/dL (31.0-37.0); MCV 89.1 fL (80.0-100.0); Mean Platelet Volume 8.3; Monocytes # (A) 0.4 k/uL (0-1.0); Monocytes % (A) 2 %; Neutrophils # (A) 15.5 k/uL (1.3-7.7); Neutrophils % (A) 94 %; Platelet Count 493 k/uL (150-450); Poikilocytosis Moderate; RBC 3.55 m/uL (3.80-5.40); RDW 16.6 % (11.5-15.5); WBC 16.6 k/uL (3.8-10.6)
[2020-04-06 04:48] LABS: African American GFR (CKD) >90 (>60 ml/min/1.73 sqM); Albumin 2.7 g/dL (3.5-5.0); Anion Gap 5 mmol/L; Calcium 7.5 mg/dL (8.4-10.2); Carbon Dioxide 22 mmol/L (22-30); Chloride 109 mmol/L (98-107); Glucose 124 mg/dL (74-99); Non-African American GFR(CKD) >90 (>60 ml/min/1.73 sqM); Sodium 136 mmol/L (137-145); Total Bilirubin 0.7 mg/dL (0.2-1.3); Total Protein 5.8 g/dL (6.3-8.2)
[2020-04-06 04:50] LABS: Blood Urea Nitrogen 20 mg/dL (7-17); Potassium 4.2 mmol/L (3.5-5.1)
[2020-04-06 04:51] LABS: ALT 87 U/L (4-34); AST 54 U/L (14-36); Alkaline Phosphatase 95 U/L (38-126)
[2020-04-06 06:35] LABS: Glucose,Whole Blood 128 mg/dL (75-99)
[2020-04-06] MEDS: hydrALAZINE HCL 20 MG/ML 1 ML VIAL IVP PRN ×3 (08:12→22:35)
[2020-04-06] MEDS: SODIUM CHLORIDE 0.9% 1,000 ML IV SCH ×2 (08:12→20:14)
[2020-04-06] MEDS: PANTOPRAZOLE 40 MG/10 ML VIAL IVP SCH ×2 (08:19→20:08)
[2020-04-06] MEDS: ENOXAPARIN 40 MG/0.4 ML SYRINGE SQ SCH ×2 (08:19→20:13)
[2020-04-06] MEDS: FUROSEMIDE 10 MG/ML 2 ML VIAL IV SCH (08:19)
[2020-04-06] MEDS: ASCORBIC ACID 500 MG TAB PO SCH ×2 (08:20→20:12)
[2020-04-06] MEDS: ZINC SULFATE 220 MG CAP PO SCH (08:20)
[2020-04-06] MEDS: CHOLECALCIFEROL 400 UNIT TAB PO SCH (08:20)
[2020-04-06] MEDS ORDERED: HALOPERIDOL LACTATE 5 MG/ML 1 ML VIAL IVP PRN (09:14)
--- NOTE | 2020-04-06 09:20 | P.PN ---
Subjective 69-year-old female was admitted for acute hypoxic respiratory failure secondary to covid 19 pneumonia. She was extubated yesterday patient the was intubated for about 10 days and patient is still lethargic does respond to commands but the unable to verbalize at this time. There is a concern that patient the cannot be able to swallow and is unable to swallow because of which are speech therapy was consulted who will evaluate the patient on Tuesday. And is still quite a bit lethargic and encephalopathic from sedatives she received during intubation. 04/06/2020 Patient is more awake today and still nonverbal but the more appropriate response to commands. The patient occasionally his having anxiety and agitation episodes was getting lot of narcotics for that which we will try and stop and patient will be given Haldol as needed will obtain an EKG to make sure patient doesn't have any QT prolongation before we give Haldol. She remains nothing by mouth. Will cut down the dose of steroids. Patient is still having swallow issues at bedside. Lasix will be discontinued will cut down the IV fluids to 75 mL per hour chest x-ray and she'll still showing ARDS Review of systems: Unable to obtain due to her clinical condition All inpatient medications were reviewed and appropriate changes in these medications as dictated in the interval history and assessment and plan. Objective - Vital Signs Vital signs: Vital Signs Temp 98.0 F 04/06/20 04:00 Pulse 52 L 04/06/20 07:00 Resp 12 04/06/20 07:00 BP 172/79 04/06/20 07:00 Pulse Ox 98 04/06/20 07:00 Intake & Output 04/05/20 04/06/20 04/06/20 18:59 06:59 18:59 Intake Total 1200 1250 Output Total 2585 1250 Balance -1385 0 Weight 91 kg Intake: IV 1200 1250 0.9 NaCl- 1200 1200 Fluconazole in NaCl,Iso- 50 Osm 100 mg In Saline 1 50ml.bag @ 50 mls/hr IVPB [facility] Rx#:[id number] Output: Urine 2585 1250 Other: Voiding Method Indwelling Catheter Indwelling Catheter Indwelling Catheter - Exam PHYSICAL EXAMINATION: GENERAL: Awake and alert still nonverbal HEENT: Pupils are round and equally reacting to light. EOMI. No scleral icterus. No conjunctival pallor. Normocephalic, atraumatic. No pharyngeal erythema. No thyromegaly. CARDIOVASCULAR: S1 and S2 present. No murmurs, rubs, or gallops. PULMONARY: Chest is clear to auscultation, no wheezing or crackles. ABDOMEN: Soft, nontender, nondistended, normoactive bowel sounds. No palpable organomegaly. MUSCULOSKELETAL: No joint swelling or deformity. EXTREMITIES: No cyanosis, clubbing, or pedal edema. NEUROLOGICAL: Unable to assess SKIN: No rashes. Note: Because of COVID 19 isolation, some of the history and physical exam findings are indirect and obtained from nursing staff, and other physician examinations to avoid unnecessary contact with the patient. - Labs CBC & Chem 7: 04/06/20 04:23 04/06/20 04:23 Labs: Abnormal Lab Results - Last 24 Hours (Table) 04/05/20 04/05/20 04/06/20 Range/Units 11:06 17:16 00:42 WBC (3.8-10.6) k/uL RBC (3.80-5.40) m/uL Hgb (11.4-16.0) gm/dL Hct (34.0-46.0) % RDW (11.5-15.5) % Plt Count (150-450) k/uL Neutrophils # (1.3-7.7) k/uL Lymphocytes # (1.0-4.8) k/uL Sodium (137-145) mmol/L Chloride (98-107) mmol/L BUN (7-17) mg/dL Creatinine (0.52-1.04) mg/dL Glucose (74-99) mg/dL POC Glucose (mg/dL) 172 H 122 H 149 H (75-99) mg/dL Calcium (8.4-10.2) mg/dL AST (14-36) U/L ALT (4-34) U/L C-Reactive Protein (<10.0) mg/L Total Protein (6.3-8.2) g/dL Albumin (3.5-5.0) g/dL 04/06/20 04/06/20 04/06/20 Range/Units 04:23 04:23 06:34 WBC 16.6 H (3.8-10.6) k/uL RBC 3.55 L (3.80-5.40) m/uL Hgb 9.9 L (11.4-16.0) gm/dL Hct 31.6 L (34.0-46.0) % RDW 16.6 H (11.5-15.5) % Plt Count 493 H (150-450) k/uL Neutrophils # 15.5 H (1.3-7.7) k/uL Lymphocytes # 0.4 L (1.0-4.8) k/uL Sodium 136 L (137-145) mmol/L Chloride 109 H (98-107) mmol/L BUN 20 H (7-17) mg/dL Creatinine 0.41 L (0.52-1.04) mg/dL Glucose 124 H (74-99) mg/dL POC Glucose (mg/dL) 128 H (75-99) mg/dL Calcium 7.5 L (8.4-10.2) mg/dL AST 54 H (14-36) U/L ALT 87 H (4-34) U/L C-Reactive Protein 28.0 H (<10.0) mg/L Total Protein 5.8 L (6.3-8.2) g/dL Albumin 2.7 L (3.5-5.0) g/dL Assessment and Plan Plan: -Acute hypoxic respiratory failure secondary to covid 19 pneumonia patient was admitted yesterday. He and his cannula oxygen 15 L -Toxic encephalopathy: Secondary to prolonged intubation prolonged acidity affect expected to improve significantly but still has speech problems -Patient is also being treated for secondary back to pneumonia and presently on antibiotics -Hepatitis: We will secondary to Covid 19 -Chronic diastolic dysfunction with mild acute exacerbation patient is presently euvolemic him on diuretics which will be continued -Acute respiratory distress syndrome secondary to assessment #1 and patient is on systemic steroids which will be continued -Dysphagia: Secondary to prolonged intubation and sedative effect patient is unable to swallow at this time -Restless leg syndrome -DVT prophylaxis with the Lovenox
[2020-04-06 12:22] LABS: Glucose,Whole Blood 163 mg/dL (75-99)
--- NOTE | 2020-04-06 16:25 | P.PN ---
Subjective Progress Note Date: 04/06/20 CHIEF COMPLAINT: GI bleed HISTORY OF PRESENT ILLNESS: The patient is a 69-year-old female presents with GI bleed. She is also COVID-19. She was recently extubated. She has underlying dysphagia. She had no bowel movements in the last 3 days. No reports of active bleeding. ROS: No fevers or chills. PHYSICAL EXAM: VITAL SIGNS: Reviewed CONSTITUTIONAL: Well developed and in no acute distress. EYES: Conjuctivae without sclera icterus. Extraocular movements grossly intact. HEAD, EARS, NOSE, THROAT: Moist buccal mucosa. Head is atraumatic, normocephalic. RESPIRATORY: Non-labored respirations and equal bilateral excursions. CARDIOVASCULAR: 2+ radial pulses. ABDOMEN: No peritonitis. MUSCULOSKELETAL: No gross deformity of the lower extremities noted. No clubbing. No cyanosis. SKIN: Good skin turgor. Well perfused. NEUROLOGIC: No focal lateralizing signs. PSYCH: Deferred. CLINICAL LABS: White blood cell count up from 13.4 to 17.9 down to 16.6. Hemoglobin 10.1 down to 9.9 ASSESSMENT: 1. Anemia 2. GI bleed 3. COVID-19 positive PLAN: 1. Her hemoglobin is stable. 2. May need additional scopes pending any further clinical bleeding. Objective - Vital Signs Vital signs: Vital Signs Temp 98.3 F 04/06/20 12:00 Pulse 92 04/06/20 15:00 Resp 17 04/06/20 15:47 BP 164/87 04/06/20 15:00 Pulse Ox 92 L 04/06/20 15:00 Intake & Output 04/05/20 04/06/20 04/06/20 18:59 06:59 18:59 Intake Total 1200 1250 582 Output Total 2585 1250 3325 Balance -1385 0 -2743 Weight 91 kg Intake: IV 1200 1250 582 0.9 NaCl- 1200 1200 200 Fluconazole in NaCl,Iso- 50 Osm 100 mg In Saline 1 50ml.bag @ 50 mls/hr IVPB [facility] Rx#:[id number] Sodium Chloride 0.9% 1, 382 000 ml @ 75 mls/hr IV . [id number] [facility] Rx#:[id number] Output: Urine 2585 1250 3325 Other: Voiding Method Indwelling Catheter Indwelling Catheter Indwelling Catheter - Labs CBC & Chem 7: 04/06/20 04:23 04/06/20 04:23 Labs: Abnormal Lab Results - Last 24 Hours (Table) 04/05/20 04/06/20 04/06/20 Range/Units 17:16 00:42 04:23 WBC 16.6 H (3.8-10.6) k/uL RBC 3.55 L (3.80-5.40) m/uL Hgb 9.9 L (11.4-16.0) gm/dL Hct 31.6 L (34.0-46.0) % RDW 16.6 H (11.5-15.5) % Plt Count 493 H (150-450) k/uL Neutrophils # 15.5 H (1.3-7.7) k/uL Lymphocytes # 0.4 L (1.0-4.8) k/uL Sodium (137-145) mmol/L Chloride (98-107) mmol/L BUN (7-17) mg/dL Creatinine (0.52-1.04) mg/dL Glucose (74-99) mg/dL POC Glucose (mg/dL) 122 H 149 H (75-99) mg/dL Calcium (8.4-10.2) mg/dL AST (14-36) U/L ALT (4-34) U/L C-Reactive Protein (<10.0) mg/L Total Protein (6.3-8.2) g/dL Albumin (3.5-5.0) g/dL 04/06/20 04/06/20 04/06/20 Range/Units 04:23 06:34 12:21 WBC (3.8-10.6) k/uL RBC (3.80-5.40) m/uL Hgb (11.4-16.0) gm/dL Hct (34.0-46.0) % RDW (11.5-15.5) % Plt Count (150-450) k/uL Neutrophils # (1.3-7.7) k/uL Lymphocytes # (1.0-4.8) k/uL Sodium 136 L (137-145) mmol/L Chloride 109 H (98-107) mmol/L BUN 20 H (7-17) mg/dL Creatinine 0.41 L (0.52-1.04) mg/dL Glucose 124 H (74-99) mg/dL POC Glucose (mg/dL) 128 H 163 H (75-99) mg/dL Calcium 7.5 L (8.4-10.2) mg/dL AST 54 H (14-36) U/L ALT 87 H (4-34) U/L C-Reactive Protein 28.0 H (<10.0) mg/L Total Protein 5.8 L (6.3-8.2) g/dL Albumin 2.7 L (3.5-5.0) g/dL Assessment and Plan (1) Anemia Current Visit: Yes Status: Acute Code(s): D64.9 - ANEMIA, UNSPECIFIED SNOMED Code(s): 530137813 (2) COVID-19 Current Visit: Yes Status: Acute Code(s): U07.1 - COVID-19 SNOMED Code(s): 694806235 (3) GI bleed Current Visit: Yes Status: Acute Code(s): K92.2 - GASTROINTESTINAL HEMORRHAGE, UNSPECIFIED SNOMED Code(s): 52479690
[2020-04-06 17:12] LABS: Glucose,Whole Blood 133 mg/dL (75-99)
[2020-04-06] MEDS: FLUCONAZOLE IN NACL,ISO-OSM 100 MG in SALINE 1 50ML.BAG IVPB SCH (20:07)
--- NOTE | 2020-04-06 22:13 | P.PN ---
Subjective Progress Note Date: 04/06/20 Principal diagnosis: Acute hypoxic respiratory failure Covid19 pneumonia Acute respiratory and metabolic acidosis Acute hepatitis/elevated liver enzymes Acute diastolic heart failure and fluid overload Chronic anemia Fibromyalgia Hypertension hypertensive cardiovascular disease 04/06/2020, patient seen eval examined during the rounds labs reviewed medications reviewed, patient remains off of ventilator, mental status slightly better today compared to last 24-48 hours less agitated awake oriented 1 now, remains on partial nonrebreather mask, saturation is 94%, LAD pressure slightly running on the higher side remains on IV hydralazine, oxygen saturation is 94% to 96%, 04/05/2020, patient seen eval reexamined successfully weaned and extubated yesterday has been on supplemental oxygen 2-4 L, in the last 8-12 hours however decompensation in oxygenation status as well as patient even though awake but remains agitated appears to have a agitated delirium, does require Dilaudid at a regular interval, remains afebrile, oxygen saturation is 99% on 10 L nonrebreather mask, patient cannot take by mouth medicines are listed IV, will try morphine as needed DC Dilaudid, 04/04/2020, patient seen eval examined during the rounds labs reviewed medications reviewed care plan discussed, patient is awake now remains off of propofol since yesterday, does make intermittent eye contact, remains slightly withdrawn however, respiratory status stable, remains on assist control mode rate of 24, tidal volume is 450, +5 of PEEP, 40% oxygen, peak airway pressure stable, chest x-ray shows bilateral diffuse interstitial infiltrate stable ET tube and NG tube in PICC line, white cell count is 13,400, hemoglobin and hematocrit stable 9.4 and 31, arterial blood gases reviewed pH is 7.4 to pCO2 32 pO2 64, BUN/creatinine is 32 and 0.5, patient is reviewed Lovenox remains 2040 m g subcu twice a day on IV furosemide, Solu-Medrol is 60 mg IV every 6 we'll decrease it to every 12 04/03/2020, patient seen eval examined during rounds labs reviewed medications reviewed, care plan discussed, overall hemodynamically he remains stable blood pressure spiked up on hydralazine when necessary, seems to be helping, patient sedated with propofol drip 50 mics, attempts for weaning of protocol has been unsuccessful as patient becomes agitated, attempted Precedex drip has been unsuccessful as well, current vent settings include assist control rate of 24 breathing 24, FiO2 is 40%, PEEP is 5, tidal volume is 450, chest x-ray stable ET tube with bilateral multifocal infiltrate with consolidation consistent with cold with 19 pneumonia not essentially much change from the prior x-ray, ET tube and NG tube was stable, patient is getting tube feed bolus feeding, labs including ABG chemistry reviewed 04/02/2020, patient seen eval examined during the rounds labs reviewed medications reviewed care plan discussed, patient remains sedated with propofol on ventilator for full ventilator support, currently patient is on assist control mode rate Tuesday for breathing 24, tidal volume is 450, 5 of PEEP, 40% oxygen, propofol is 50 mics, chest x-ray from today reviewed continue show patchy bilateral infiltrate without any significant interval change, arterial blood gases revealed pH of 7.43 pCO2 32, C-reactive protein is down to 21, BUN/creatinine is 34/.49, white cell count and hemoglobin remained stable, medications reviewed, she remains on broad-spectrum antibiotic with cephapirin, Lovenox, gentle diuresis with Lasix, blood pressure control with IV hydralazine, patient remains on high-dose IV steroids, discussed with the staff at length, will stop the propofol drip and once patient is awake put on CPAP 5 pressure support of 5 gas after half an hour also check weaning parameters 04/01/2020, patient seen eval examined labs reviewed medications reviewed care plan discussed with the staff at length patient had a sedation holiday today she is arousable and awake follows simple commands with blood pressure went up becomes agitated anxious requiring a reinitiation of propofol drip, ventilator setting remains unchanged, patient is on rate of 24 tidal volume is 450, PEEP is 5, oxygen is 40%, chest x-ray from today reviewed remains overall stable with stable lines and tubes 03/31/2020, patient seen eval examined during the rounds labs reviewed medications reviewed care plan discussed, patient remains on full ventilator support, propofol was changed to Precedex but however patient becomes agitated so back on propofol when setting remains unchanged have been on assist control rate of 24, PEEP is 5, FiO2 is 40%, tidal volume of 450, care plan discussed with the staff at length critical care time 35 minutes 03/30/2020, patient seen eval examined during the rounds labs reviewed medications reviewed, remains sedated with propofol, current vent setting include his control rate of 24 breathing 24 tidal volume is 450, deep is 5 now, FiO2 is 40%, tolerating tube feed very well, chest x-ray reviewed slightly better but stable bilateral infiltrate consistent with atypical pneumonia, patient continued IVs very well with 20 mg Lasix daily, white cell count remained stable, with stable hemoglobin and however decreasing platelet count noted, dear blood gases revealed pH of 7.4 to pCO2 34 pO2 of 62, BUN/creatinine is 36 and 0.62, left he continue show downward trend, inflammatory markers reviewed still elevated but showing a downward trend 03/29/2020, patient seen eval examined during the rounds labs reviewed medications reviewed, care plan discussed with the nursing staff at length, patient has been on assist control rate of the 24 PEEP of 8 400 tidal volume 50% oxygen, ventilator has been adjusted with reduction in PEEP and oxygen, patient's saturation remained stable 91-92%, next step he is to stop propofol and reassess the mental status and if patient remains stable oxygen randolph and hemodynamics can do a CPAP pressure support trial in the meantime we'll continue IV steroids, antibiotics, CBC and ABG reviewed, today's chest x-ray showed bilateral interstitial infiltrate, predominantly at the bases, patient has been on Lasix 20 mg daily diuresing very well, critical care time 35 minutes 03/28/2020, patient seen eval examined during the rounds labs reviewed medications reviewed care plan discussed oxygen has been down to 40% now. The patient is PEEP of 8, otherwise ventilator setting remains stable, patient is scheduled for PICC line later on today, remains on propofol, remains on broad- spectrum antibiotics, labs from today has been reviewed hemoglobin is stable 7.9, d-dimer is 3.24, arterial blood gases stable pH is 7.41 pCO2 35 pO2 96, BUN/creatinine is 51 and 1.05, ferritin level remains more than 26,000, AST ALT continued decline however today is 367 and 558, C-reactive protein checked 69.5 her chest x-ray earlier than today remains there however appears to have slightly progressed 03/27/2020, patient seen eval examined during the rounds labs reviewed medications reviewed care plan discussed, propofol has been discontinued patient because very restless and anxious, we'll restart propofol, patient has been on full ventilator support assist control 24 tidal volume of 450, PEEP is 10, oxygen is 70%, arterial blood gases reviewed when lower the FiO2 to 60% now plan to bring down the FiO2 to 50% and PEEP of 8 next 24 hours, sputum and blood cultures reviewed no growth so far, chest x-ray performed today reviewed significant improvement in infiltrates seen bilaterally, patient has a poor urine output throughout the night, 20 mg of Lasix was given put out 600 mL of urine patient continued to be on gentle hydration, remain on cefapime and Vanco, Lovenox Solu-Medrol multivitamin and vitamin C zinc and Lovenox, white cell count is stable 10,500 hemoglobin and hematocrit 7.2 and 24, general surgery has been following patient is considered to get EGD and colonoscopy once stable, arterial blood gas revealed pH of 7.39 pCO2 of 39 pO2 of 124, bicarb 25, liver enzymes continue to come down AST and ALT now is 944/809, hepatitis panel normal and nonreactive 03/26/2020, patient seen eval examined in the ICU care plan discussed with the staff, FiO2 has been down to 60%, patient remains on assist control tidal volume of 450, PEEP is 10, respiratory rate is 24 breathing with the respirator pH has been improved significantly, patient is making adequate urine chest x-ray compared with yesterday's x-ray some improvement have been noted, white cell count is 11,000, hemoglobin 7.9 which is stable, arterial blood gas improved to 7.39, pCO2 of 40, pO2 112, BUN/creatinine is 33/0.96, lactic acid was 5.9 down to 1.3 now, ferritin level noted to be 12,800, AST and ALT are 4014 100 with LDH over 21,500, today LFTs significantly improved AST is down to 2795 and ALT is 1222, pro calcitonin is 0.84, suspect some component of heart failure as well as pneumonia, will get an echocardiogram as well as start patient on broad-spectrum antibiotics with cefepime and Vanco Patient seen and evaluated examined in the emergency department, patient came into the ER from the office of Dr. Aleman due to progressive shortness of breath, patient has acute on chronic hypoxic respiratory failure on 4 L oxygen, also has issues associated with pneumonia presumed to be cold with 19, however, testing was negative, patient used to smoke in the remote past quit about 20-30 years ago due to severity or shortness of breath and hypoxia with saturation of 76% on 100% oxygen and respiratory distress patient was intubated due to poor to lerance on BiPAP, patient Covid testing came back positive, chest x-ray showing diffuse infiltrate she also has been noted to have elevated liver enzymes due to elevated liver enzymes will not start IV REMdesivir, Initial ABG pH is 7.18, pCO2 is 63 pO2 was only 33 Objective - Vital Signs Vital signs: Vital Signs Temp 98.6 F 04/06/20 16:00 Pulse 87 04/06/20 19:00 Resp 14 04/06/20 19:00 BP 173/102 04/06/20 19:00 Pulse Ox 94 L 04/06/20 19:00 Intake & Output 04/06/20 04/06/20 04/07/20 06:59 18:59 06:59 Intake Total 1250 807 75 Output Total 1250 3950 175 Balance 0 -3143 -100 Weight 91 kg Intake: IV 1250 807 75 0.9 NaCl- 1200 200 Fluconazole in NaCl,Iso- 50 Osm 100 mg In Saline 1 50ml.bag @ 50 mls/hr IVPB [facility] Rx#:[id number] Sodium Chloride 0.9% 1, 607 75 000 ml @ 75 mls/hr IV . [id number] [facility] Rx#:[id number] Output: Urine 1250 3950 175 Other: Voiding Method Indwelling Catheter Indwelling Catheter - Exam Successfully weaned and extubated since yesterday - Constitutional General appearance: average body habitus, mild distress, restless intermittently agitated - EENT Ears: bilateral: normal - Neck Carotids: bilateral: upstroke normal Thyroid: bilateral: normal size - Respiratory Respiratory: bilateral: diminished - Cardiovascular Rhythm: regular Heart sounds: normal: S1, S2 - Gastrointestinal General gastrointestinal: normal bowel sounds - Labs CBC & Chem 7: 04/06/20 04:23 04/06/20 04:23 Labs: Abnormal Lab Results - Last 24 Hours (Table) 04/06/20 04/06/20 04/06/20 Range/Units 00:42 04:23 04:23 WBC 16.6 H (3.8-10.6) k/uL RBC 3.55 L (3.80-5.40) m/uL Hgb 9.9 L (11.4-16.0) gm/dL Hct 31.6 L (34.0-46.0) % RDW 16.6 H (11.5-15.5) % Plt Count 493 H (150-450) k/uL Neutrophils # 15.5 H (1.3-7.7) k/uL Lymphocytes # 0.4 L (1.0-4.8) k/uL Sodium 136 L (137-145) mmol/L Chloride 109 H (98-107) mmol/L BUN 20 H (7-17) mg/dL Creatinine 0.41 L (0.52-1.04) mg/dL Glucose 124 H (74-99) mg/dL POC Glucose (mg/dL) 149 H (75-99) mg/dL Calcium 7.5 L (8.4-10.2) mg/dL AST 54 H (14-36) U/L ALT 87 H (4-34) U/L C-Reactive Protein 28.0 H (<10.0) mg/L Total Protein 5.8 L (6.3-8.2) g/dL Albumin 2.7 L (3.5-5.0) g/dL 04/06/20 04/06/20 04/06/20 Range/Units 06:34 12:21 17:08 WBC (3.8-10.6) k/uL RBC (3.80-5.40) m/uL Hgb (11.4-16.0) gm/dL Hct (34.0-46.0) % RDW (11.5-15.5) % Plt Count (150-450) k/uL Neutrophils # (1.3-7.7) k/uL Lymphocytes # (1.0-4.8) k/uL Sodium (137-145) mmol/L Chloride (98-107) mmol/L BUN (7-17) mg/dL Creatinine (0.52-1.04) mg/dL Glucose (74-99) mg/dL POC Glucose (mg/dL) 128 H 163 H 133 H (75-99) mg/dL Calcium (8.4-10.2) mg/dL AST (14-36) U/L ALT (4-34) U/L C-Reactive Protein (<10.0) mg/L Total Protein (6.3-8.2) g/dL Albumin (3.5-5.0) g/dL Assessment and Plan Assessment: Agitated delirium along with metabolic encephalopathy likely multifactorial including Covid 19 pneumonia, is being in ICU, for intubation long period time sepsis Acute hypoxic respiratory failure Covid19 pneumonia Acute pneumonia bacterial bilateral healthcare associated patient is being monitored off of antibiotics now Thrombocytopenia stable Acute respiratory and metabolic acidosis Acute hepatitis/elevated liver enzymes Acute diastolic heart failure Chronic anemia Fibromyalgia Hypertension hypertensive cardiovascular disease Plan: Continue supportive care, avoid benzodiazepine Monitor intake and output closely keep on even a negative side Patient remains on partial nonrebreather mask was slowly titrate oxygen down as tolerated Trend liver enzymes Patient is not a candidate for IV REMdesivir due to markedly elevated liver enzymes IV steroids, Further recommendations pending plan of care as per clinical response of patient Continue anticoagulation with Lovenox Time with Patient: Greater than 30
--- NOTE | 2020-04-07 00:05 | PN ---
PROGRESS NOTE DATE OF SERVICE: 04/06/2020 REASON FOR FOLLOWUP: Pneumonia and oropharyngeal candidiasis. INTERVAL HISTORY: The patient is currently afebrile. She has been slightly more awake, alert, on non- rebreather though. Did mention she wants to go home. No chest pain. Significant cough. No vomiting or diarrhea has been reported. PHYSICAL EXAMINATION: Blood pressure 151/85 with a pulse of 85, temperature 98.6. She is 92% on nonrebreather. General description is a middle-aged female lying in bed in no distress. RESPIRATORY SYSTEM: Unlabored breathing with decreased intensity of breath sounds. No wheeze. HEART: S1, S2. Regular rate and rhythm. ABDOMEN: Soft, no tenderness. LABS: Hemoglobin is 9.9, white count 16.6. Procalcitonin 0.09. DIAGNOSTIC IMPRESSION AND PLAN: 1. Patient with acute respiratory failure which is multifactorial in this patient with possible component of ARDS from recent COVID-19 infection with question of pneumonia. However, the patient's sputum was negative and has completed antibiotic therapy. Procalcitonin was normal. 2. Elevated white count, possible steroid effect plus-minus component of oropharyngeal candidiasis and is covered with Diflucan. White count will be monitored closely. Continue supportive care. MMODL / IJN: [id number] /
[2020-04-07 00:34] LABS: Glucose,Whole Blood 145 mg/dL (75-99)
[2020-04-07] MEDS: INSULIN ASPART (NovoLOG) 100 UNIT/ML VIAL SQ SCH ×4 (00:52→17:26)
[2020-04-07 04:33] LABS: ALT 71 U/L (4-34); AST 36 U/L (14-36); African American GFR (CKD) >90 (>60 ml/min/1.73 sqM); Albumin 2.5 g/dL (3.5-5.0); Alkaline Phosphatase 108 U/L (38-126); Anion Gap 2 mmol/L; Blood Urea Nitrogen 17 mg/dL (7-17); Calcium 7.9 mg/dL (8.4-10.2); Carbon Dioxide 27 mmol/L (22-30); Chloride 107 mmol/L (98-107); Glucose 139 mg/dL (74-99); Non-African American GFR(CKD) >90 (>60 ml/min/1.73 sqM); Potassium 3.5 mmol/L (3.5-5.1); Sodium 136 mmol/L (137-145); Total Bilirubin 0.7 mg/dL (0.2-1.3); Total Protein 5.4 g/dL (6.3-8.2)
[2020-04-07 05:55] LABS: Anisocytosis Slight; Basophils % (A) 0 %; Eosinophils % (A) 0 %; HCT 32.2 % (34.0-46.0); HGB 10.1 gm/dL (11.4-16.0); Hypochromasia Marked; Lymphocytes # (A) 0.4 k/uL (1.0-4.8); Lymphocytes % (A) 2 %; MCHC 31.4 g/dL (31.0-37.0); MCV 89.1 fL (80.0-100.0); Mean Platelet Volume 9.4; Monocytes # (A) 0.6 k/uL (0-1.0); Monocytes % (A) 3 %; Neutrophils # (A) 18.8 k/uL (1.3-7.7); Neutrophils % (A) 95 %; Platelet Count 518 k/uL (150-450); Poikilocytosis Moderate; RBC 3.61 m/uL (3.80-5.40); RDW 16.9 % (11.5-15.5); WBC 19.8 k/uL (3.8-10.6)
[2020-04-07] MEDS: hydrALAZINE HCL 20 MG/ML 1 ML VIAL IVP PRN ×2 (06:06→19:19)
[2020-04-07 06:39] LABS: Glucose,Whole Blood 130 mg/dL (75-99)
--- NOTE | 2020-04-07 07:21 | XR ---
EXAMINATION TYPE: XR chest 1V portable DATE OF EXAM: 04/07/2020 HISTORY: Shortness of breath. COMPARISON: 04/05/2020 TECHNIQUE: Single view of the chest is submitted. FINDINGS: Demonstrated are scattered senescent parenchymal change. Diffuse airspace infiltrates are redemonstrated throughout both lung grant. No significant change ap preciated. Right-sided PICC line in place. The heart is stable. Hilar and mediastinal structures are within normal limits. Degenerative changes are seen of the dorsal spine. IMPRESSION: 1. Stable chest.
[2020-04-07] MEDS: CHOLECALCIFEROL 400 UNIT TAB PO SCH (07:52)
[2020-04-07] MEDS: ASCORBIC ACID 500 MG TAB PO SCH ×2 (07:52→20:54)
[2020-04-07] MEDS: ZINC SULFATE 220 MG CAP PO SCH (07:53)
[2020-04-07] MEDS: PANTOPRAZOLE 40 MG/10 ML VIAL IVP SCH ×2 (08:03→20:54)
[2020-04-07] MEDS: POTASSIUM CHLORIDE 20 MEQ in WATER FOR INJECTION 1 100ML.BAG IVPB SCH ×2 (08:03→10:45)
[2020-04-07] MEDS: ENOXAPARIN 40 MG/0.4 ML SYRINGE SQ SCH ×2 (08:03→20:53)
[2020-04-07] MEDS: methylPREDNISolone SOD SUCCI 40 MG/ML 1 ML VIAL IV SCH ×2 (08:04→20:54)
[2020-04-07 08:26] LABS: Glucose,Whole Blood 108 mg/dL (75-99)
[2020-04-07] MEDS: HYDROmorphone 1 MG/ML 1 ML SYRINGE IVP PRN ×4 (10:44→19:33)
[2020-04-07] MEDS: SODIUM CHLORIDE 0.9% 1,000 ML IV SCH (10:46)
[2020-04-07 10:51] LABS: Glucose,Whole Blood 127 mg/dL (75-99)
[2020-04-07 11:10] LABS: Glucose,Whole Blood 135 mg/dL (75-99)
--- NOTE | 2020-04-07 11:15 | P.PN ---
<Ana Parks - Last Filed: 04/07/20 11:11> Subjective Progress Note Date: 04/07/20 CHIEF COMPLAINT: GI bleed HISTORY OF PRESENT ILLNESS: Patient is currently hospitalized for respiratory failure and is COVID positive. She is being followed for her GI bleed. Patient has had no active bleeding. Last bowel movement was 4 days ago. She was extubated over the weekend. She is currently on a 15 L partial rebreather. She is tolerating her tube feeds through the NG tube. Afebrile. Hemoglobin remained stable at 10.1. WBC 19.8 PHYSICAL EXAM: VITAL SIGNS: Reviewed. GENERAL: Well-developed in no acute distress. HEENT: No sclera icterus. Extraocular movements grossly intact. Moist buccal mucosa. Head is atraumatic, normocephalic. ABDOMEN: Soft. Nondistended. Nontender. NEUROLOGIC: Patient is awake ASSESSMENT: 1. Acute GI bleed 2. Acute on chronic blood loss anemia 3. Elevated liver enzymes with large gallstone present on abdominal ultrasound 4. Acute hypoxic respiratory failure requiring intubation 5. COVID positive PLAN: -Continue supportive care -Continue tube feedings feedings per dietitian recommendations -Continue to monitor hemoglobin -Dr. Henry will proceed with upper and lower endoscopy when stable Physician Want Ad Supervisor note has been reviewed by physician. Signing provider agrees with the documented findings, assessment, and plan of care. Objective - Vital Signs Vital signs: Vital Signs Temp 99.1 F 04/07/20 08:00 Pulse 96 04/07/20 09:00 Resp 14 04/07/20 09:00 BP 163/77 04/07/20 09:00 Pulse Ox 90 L 04/07/20 09:00 Intake & Output 04/06/20 04/07/20 04/07/20 18:59 06:59 18:59 Intake Total 807 950 175 Output Total 3955 6707 445 Balance -3143 -535 -270 Weight 85.6 kg 85.6 kg Intake: IV 807 950 175 0.9 NaCl- 200 Fluconazole in NaCl,Iso- 50 Osm 100 mg In Saline 1 50ml.bag @ 50 mls/hr IVPB HS NONA Rx#:[id number] Potassium Chloride 20 meq 100 In Water For Injection 1 100ml.bag @ 50 mls/hr IVPB Q2H NONA Rx#: [id number] Sodium Chloride 0.9% 1, 607 900 75 000 ml @ 75 mls/hr IV . [id number] [facility] Rx#:[id number] Output: Urine 3950 1485 445 Other: Voiding Method Indwelling Catheter Indwelling Catheter Indwelling Catheter - Labs CBC & Chem 7: 04/07/20 03:22 04/07/20 03:22 Labs: Abnormal Lab Results - Last 24 Hours (Table) 04/06/20 04/06/20 04/07/20 Range/Units 12: 17:08 00:28 WBC (3.8-10.6) k/uL RBC (3.80-5.40) m/uL Hgb (11.4-16.0) gm/dL Hct (34.0-46.0) % RDW (11.5-15.5) % Plt Count (150-450) k/uL Neutrophils # (1.3-7.7) k/uL Lymphocytes # (1.0-4.8) k/uL Sodium (137-145) mmol/L Creatinine (0.52-1.04) mg/dL Glucose (74-99) mg/dL POC Glucose (mg/dL) 163 H 133 H 145 H (75-99) mg/dL Calcium (8.4-10.2) mg/dL ALT (4-34) U/L Total Protein (6.3-8.2) g/dL Albumin (3.5-5.0) g/dL 04/07/20 04/07/20 04/07/20 Range/Units 03:22 03:22 06:36 WBC 19.8 H (3.8-10.6) k/uL RBC 3.61 L (3.80-5.40) m/uL Hgb 10.1 L (11.4-16.0) gm/dL Hct 32.2 L (34.0-46.0) % RDW 16.9 H (11.5-15.5) % Plt Count 518 H (150-450) k/uL Neutrophils # 18.8 H (1.3-7.7) k/uL Lymphocytes # 0.4 L (1.0-4.8) k/uL Sodium 136 L (137-145) mmol/L Creatinine 0.43 L (0.52-1.04) mg/dL Glucose 139 H (74-99) mg/dL POC Glucose (mg/dL) 130 H (75-99) mg/dL Calcium 7.9 L (8.4-10.2) mg/dL ALT 71 H (4-34) U/L Total Protein 5.4 L (6.3-8.2) g/dL Albumin 2.5 L (3.5-5.0) g/dL 04/07/20 04/07/20 04/07/20 Range/Units 08:24 10:50 11:08 WBC (3.8-10.6) k/uL RBC (3.80-5.40) m/uL Hgb (11.4-16.0) gm/dL Hct (34.0-46.0) % RDW (11.5-15.5) % Plt Count (150-450) k/uL Neutrophils # (1.3-7.7) k/uL Lymphocytes # (1.0-4.8) k/uL Sodium (137-145) mmol/L Creatinine (0.52-1.04) mg/dL Glucose (74-99) mg/dL POC Glucose (mg/dL) 108 H 127 H 135 H (75-99) mg/dL Calcium (8.4-10.2) mg/dL ALT (4-34) U/L Total Protein (6.3-8.2) g/dL Albumin (3.5-5.0) g/dL Microbiology - Last 24 Hours (Table) 04/06/20 04:23 Blood Culture - Preliminary Blood No Growth after 24 hours <William Henry - Last Filed: 04/07/20 17:14> Subjective As above. Patient without further bleeding. She has been extubated. Speech evaluation to determine appropriateness for feeding. We'll follow. Objective - Vital Signs Vital signs: Vital Signs Temp 99 F 04/07/20 16:00 Pulse 85 04/07/20 16:00 Resp 15 04/07/20 16:00 BP 161/88 04/07/20 16:00 Pulse Ox 92 L 04/07/20 16:00 Intake & Output 04/06/20 04/07/20 04/07/20 18:59 06:59 18:59 Intake Total 807 950 650 Output Total 3950 1485 1070 Balance -3143 -535 -420 Weight 85.6 kg 85.6 kg Intake: IV 807 950 650 0.9 NaCl- 200 Fluconazole in NaCl,Iso- 50 Osm 100 mg In Saline 1 50ml.bag @ 50 mls/hr IVPB HS NONA Rx#:[id number] Potassium Chloride 20 meq 200 In Water For Injection 1 100ml.bag @ 50 mls/hr IVPB Q2H NONA Rx#: [id number] Sodium Chloride 0.9% 1, 607 900 450 000 ml @ 75 mls/hr IV . [id number] NONA Rx#:[id number] Output: Urine 3950 1485 1070 Other: Voiding Method Indwelling Catheter Indwelling Catheter Indwelling Catheter - Labs CBC & Chem 7: 04/07/20 03:22 04/07/20 03:22 Labs: Abnormal Lab Results - Last 24 Hours (Table) 04/07/20 04/07/20 04/07/20 Range/Units 00:28 03:22 03:22 WBC 19.8 H (3.8-10.6) k/uL RBC 3.61 L (3.80-5.40) m/uL Hgb 10.1 L (11.4-16.0) gm/dL Hct 32.2 L (34.0-46.0) % RDW 16.9 H (11.5-15.5) % Plt Count 518 H (150-450) k/uL Neutrophils # 18.8 H (1.3-7.7) k/uL Lymphocytes # 0.4 L (1.0-4.8) k/uL Sodium 136 L (137-145) mmol/L Creatinine 0.43 L (0.52-1.04) mg/dL Glucose 139 H (74-99) mg/dL POC Glucose (mg/dL) 145 H (75-99) mg/dL Calcium 7.9 L (8.4-10.2) mg/dL ALT 71 H (4-34) U/L Total Protein 5.4 L (6.3-8.2) g/dL Albumin 2.5 L (3.5-5.0) g/dL 04/07/20 04/07/20 04/07/20 Range/Units 06:36 08:24 10:50 WBC (3.8-10.6) k/uL RBC (3.80-5.40) m/uL Hgb (11.4-16.0) gm/dL Hct (34.0-46.0) % RDW (11.5-15.5) % Plt Count (150-450) k/uL Neutrophils # (1.3-7.7) k/uL Lymphocytes # (1.0-4.8) k/uL Sodium (137-145) mmol/L Creatinine (0.52-1.04) mg/dL Glucose (74-99) mg/dL POC Glucose (mg/dL) 130 H 108 H 127 H (75-99) mg/dL Calcium (8.4-10.2) mg/dL ALT (4-34) U/L Total Protein (6.3-8.2) g/dL Albumin (3.5-5.0) g/dL 04/07/20 Range/Units 11:08 WBC (3.8-10.6) k/uL RBC (3.80-5.40) m/uL Hgb (11.4-16.0) gm/dL Hct (34.0-46.0) % RDW (11.5-15.5) % Plt Count (150-450) k/uL Neutrophils # (1.3-7.7) k/uL Lymphocytes # (1.0-4.8) k/uL Sodium (137-145) mmol/L Creatinine (0.52-1.04) mg/dL Glucose (74-99) mg/dL POC Glucose (mg/dL) 135 H (75-99) mg/dL Calcium (8.4-10.2) mg/dL ALT (4-34) U/L Total Protein (6.3-8.2) g/dL Albumin (3.5-5.0) g/dL Microbiology - Last 24 Hours (Table) 04/06/20 04:23 Blood Culture Gram Stain - Preliminary Blood 04/06/20 04:23 Blood Culture - Final Blood Assessment and Plan (1) GI bleed Current Visit: Yes Status: Acute Code(s): K92.2 - GASTROINTESTINAL HEMORRHAGE, UNSPECIFIED SNOMED Code(s): 67102265
--- NOTE | 2020-04-07 12:02 | P.PN ---
Subjective Progress Note Date: 04/07/20 Principal diagnosis: Acute hypoxic respiratory failure Covid19 pneumonia Acute respiratory and metabolic acidosis Acute hepatitis/elevated liver enzymes Acute diastolic heart failure and fluid overload Chronic anemia Fibromyalgia Hypertension hypertensive cardiovascular disease 04/07/2020, patient seen eval examined during the rounds labs reviewed medications reviewed, mental status remains stable slightly improved however, patient intermittently get anxious and agitated, low-grade temperature 90 is present hemodynamically stable though, saturation is 90% to 93% on partial nonrebreather mask, chest x-ray remains stable, white cell count remains elevated, 04/06/2020, patient seen eval examined during the rounds labs reviewed medications reviewed, patient remains off of ventilator, mental status slightly better today compared to last 24-48 hours less agitated awake oriented 1 now, remains on partial nonrebreather mask, saturation is 94%, LAD pressure slightly running on the higher side remains on IV hydralazine, oxygen saturation is 94% to 96%, 04/05/2020, patient seen eval reexamined successfully weaned and extubated yesterday has been on supplemental oxygen 2-4 L, in the last 8-12 hours however decompensation in oxygenation status as well as patient even though awake but remains agitated appears to have a agitated delirium, does require Dilaudid at a regular interval, remains afebrile, oxygen saturation is 99% on 10 L nonrebreather mask, patient cannot take by mouth medicines are listed IV, will try morphine as needed DC Dilaudid, 04/04/2020, patient seen eval examined during the rounds labs reviewed medications reviewed care plan discussed, patient is awake now remains off of propofol since yesterday, does make intermittent eye contact, remains slightly withdrawn however, respiratory status stable, remains on assist control mode rate of 24, tidal volume is 450, +5 of PEEP, 40% oxygen, peak airway pressure stable, chest x-ray shows bilateral diffuse interstitial infiltrate stable ET tube and NG tube in PICC line, white cell count is 13,400, hemoglobin and hematocrit stable 9.4 and 31, arterial blood gases reviewed pH is 7.4 to pCO2 32 pO2 64, BUN/creatinine is 32 and 0.5, patient is reviewed Lovenox remains 2040 mg subcu twice a day on IV furosemide, Solu-Medrol is 60 mg IV every 6 we'll decrease it to every 12 04/03/2020, patient seen eval examined during rounds labs reviewed medications reviewed, care plan discussed, overall hemodynamically he remains stable blood pressure spiked up on hydralazine when necessary, seems to be helping, patient sedated with propofol drip 50 mics, attempts for weaning of protocol has been unsuccessful as patient becomes agitated, attempted Precedex drip has been unsuccessful as well, current vent settings include assist control rate of 24 breathing 24, FiO2 is 40%, PEEP is 5, tidal volume is 450, chest x-ray stable ET tube with bilateral multifocal infiltrate with consolidation consistent with cold with 19 pneumonia not essentially much change from the prior x-ray, ET tube and NG tube was stable, patient is getting tube feed bolus feeding, labs including ABG chemistry reviewed 04/02/2020, patient seen eval examined during the rounds labs reviewed medications reviewed care plan discussed, patient remains sedated with propofol on ventilator for full ventilator support, currently patient is on assist control mode rate Tuesday for breathing 24, tidal volume is 450, 5 of PEEP, 40% oxygen, propofol is 50 mics, chest x-ray from today reviewed continue show patchy bilateral infiltrate without any significant interval change, arterial blood gases revealed pH of 7.43 pCO2 32, C-reactive protein is down to 21, BUN/creatinine is 34/.49, white cell count and hemoglobin remained stable, medications reviewed, she remains on broad-spectrum antibiotic with cephapirin, Lovenox, gentle diuresis with Lasix, blood pressure control with IV hydralazine, patient remains on high-dose IV steroids, discussed with the staff at length, will stop the propofol drip and once patient is awake put on CPAP 5 pressure support of 5 gas after half an hour also check weaning parameters 04/01/2020, patient seen eval examined labs reviewed medications reviewed care plan discussed with the staff at length patient had a sedation holiday today she is arousable and awake follows simple commands with blood pressure went up becomes agitated anxious requiring a reinitiation of propofol drip, ventilator setting remains unchanged, patient is on rate of 24 tidal volume is 450, PEEP is 5, oxygen is 40%, chest x-ray from today reviewed remains overall stable with stable lines and tubes 03/31/2020, patient seen eval examined during the rounds labs reviewed medications reviewed care plan discussed, patient remains on full ventilator support, propofol was changed to Precedex but however patient becomes agitated so back on propofol when setting remains unchanged have been on assist control rate of 24, PEEP is 5, FiO2 is 40%, tidal volume of 450, care plan discussed with the staff at length critical care time 35 minutes 03/30/2020, patient seen eval examined during the rounds labs reviewed med ications reviewed, remains sedated with propofol, current vent setting include his control rate of 24 breathing 24 tidal volume is 450, deep is 5 now, FiO2 is 40%, tolerating tube feed very well, chest x-ray reviewed slightly better but stable bilateral infiltrate consistent with atypical pneumonia, patient continued IVs very well with 20 mg Lasix daily, white cell count remained stable, with stable hemoglobin and however decreasing platelet count noted, dear blood gases revealed pH of 7.4 to pCO2 34 pO2 of 62, BUN/creatinine is 36 and 0.62, left he continue show downward trend, inflammatory markers reviewed still elevated but showing a downward trend 03/29/2020, patient seen eval examined during the rounds labs reviewed medications reviewed, care plan discussed with the nursing staff at length, patient has been on assist control rate of the 24 PEEP of 8 400 tidal volume 50% oxygen, ventilator has been adjusted with reduction in PEEP and oxygen, patient's saturation remained stable 91-92%, next step he is to stop propofol and reassess the mental status and if patient remains stable oxygen randolph and hemodynamics can do a CPAP pressure support trial in the meantime we'll continue IV steroids, antibiotics, CBC and ABG reviewed, today's chest x-ray showed bilateral interstitial infiltrate, predominantly at the bases, patient has been on Lasix 20 mg daily diuresing very well, critical care time 35 minutes 03/28/2020, patient seen eval examined during the rounds labs reviewed medi cations reviewed care plan discussed oxygen has been down to 40% now. The patient is PEEP of 8, otherwise ventilator setting remains stable, patient is scheduled for PICC line later on today, remains on propofol, remains on broad- spectrum antibiotics, labs from today has been reviewed hemoglobin is stable 7.9, d-dimer is 3.24, arterial blood gases stable pH is 7.41 pCO2 35 pO2 96, BUN/creatinine is 51 and 1.05, ferritin level remains more than 26,000, AST ALT continued decline however today is 367 and 558, C-reactive protein checked 69.5 her chest x-ray earlier than today remains there however appears to have slightly progressed 03/27/2020, patient seen eval examined during the rounds labs reviewed medications reviewed care plan discussed, propofol has been discontinued patient because very restless and anxious, we'll restart propofol, patient has been on full ventilator support assist control 24 tidal volume of 450, PEEP is 10, oxygen is 70%, arterial blood gases reviewed when lower the FiO2 to 60% now plan to bring down the FiO2 to 50% and PEEP of 8 next 24 hours, sputum and blood cultures reviewed no growth so far, chest x-ray performed today reviewed significant improvement in infiltrates seen bilaterally, patient has a poor urine output throughout the night, 20 mg of Lasix was given put out 600 mL of urine patient continued to be on gentle hydration, remain on cefapime and Vanco, Lovenox Solu-Medrol multivitamin and vitamin C zinc and Lovenox, white cell count is stable 10,500 hemoglobin and hematocrit 7.2 and 24, general surgery has been following patient is considered to get EGD and colonoscopy once stable, arterial blood gas revealed pH of 7.39 pCO2 of 39 pO2 of 124, bicarb 25, liver enzymes continue to come down AST and ALT now is 944/809, hepatitis panel normal and nonreactive 03/26/2020, patient seen eval examined in the ICU care plan discussed with the staff, FiO2 has been down to 60%, patient remains on assist control tidal volume of 450, PEEP is 10, respiratory rate is 24 breathing with the respirator pH has been improved significantly, patient is making adequate urine chest x-ray compared with yesterday's x-ray some improvement have been noted, white cell count is 11,000, hemoglobin 7.9 which is stable, arterial blood gas improved to 7.39, pCO2 of 40, pO2 112, BUN/creatinine is 33/0.96, lactic acid was 5.9 down to 1.3 now, ferritin level noted to be 12,800, AST and ALT are 4014 100 with LDH over 21,500, today LFTs significantly improved AST is down to 2795 and ALT is 1222, pro calcitonin is 0.84, suspect some component of heart failure as well as pneumonia, will get an echocardiogram as well as start patient on broad-spectrum antibiotics with cefepime and Vanco Patient seen and evaluated examined in the emergency department, patient came into the ER from the office of Dr. Aleman due to progressive shortness of breath, patient has acute on chronic hypoxic respiratory failure on 4 L oxygen, also has issues associated with pneumonia presumed to be cold with 19, however, testing was negative, patient used to smoke in the remote past quit about 20-30 years ago due to severity or shortness of breath and hypoxia with saturation of 76% on 100% oxygen and respiratory distress patient was intubated due to poor tolerance on BiPAP, patient Covid testing came back positive, chest x-ray showing diffuse infiltrate she also has been noted to have elevated liver enzymes due to elevated liver enzymes will not start IV REMdesivir, Initial ABG pH is 7.18, pCO2 is 63 pO2 was only 33 Objective - Vital Signs Vital signs: Vital Signs Temp 99.1 F 04/07/20 08:00 Pulse 96 04/07/20 09:00 Resp 14 04/07/20 09:00 BP 163/77 04/07/20 09:00 Pulse Ox 90 L 04/07/20 09:00 Intake & Output 04/06/20 04/07/20 04/07/20 18:59 06:59 18:59 Intake Total 807 950 175 Output Total 3950 1485 445 Balance -3143 -535 -270 Weight 85.6 kg 85.6 kg Intake: IV 807 950 175 0.9 NaCl- 200 Fluconazole in NaCl,Iso- 50 Osm 100 mg In Saline 1 50ml.bag @ 50 mls/hr IVPB HS NONA Rx#:[id number] Potassium Chloride 20 meq 100 In Water For Injection 1 100ml.bag @ 50 mls/hr IVPB Q2H NONA Rx#: [id number] Sodium Chloride 0.9% 1, 607 900 75 000 ml @ 75 mls/hr IV . [id number] [facility] Rx#:[id number] Output: Urine 3950 1485 445 Other: Voiding Method Indwelling Catheter Indwelling Catheter Indwelling Catheter - Exam on nonrebreather partial mask saturation is mid 90s to low 90s, mental status however not much clear - Constitutional General appearance: average body habitus, mild distress, restless intermittently agitated - EENT Ears: bilateral: normal - Neck Carotids: bilateral: upstroke normal Thyroid: bilateral: normal size - Respiratory Respiratory: bilateral: diminished - Cardiovascular Rhythm: regular Heart sounds: normal: S1, S2 - Gastrointestinal General gastrointestinal: normal bowel sounds - Labs CBC & Chem 7: 04/07/20 03:22 04/07/20 03:22 Labs: Abnormal Lab Results - Last 24 Hours (Table) 04/06/20 04/06/20 04/07/20 Range/Units 12: 17:08 00:28 WBC (3.8-10.6) k/uL RBC (3.80-5.40) m/uL Hgb (11.4-16.0) gm/dL Hct (34.0-46.0) % RDW (11.5-15.5) % Plt Count (150-450) k/uL Neutrophils # (1.3-7.7) k/uL Lymphocytes # (1.0-4.8) k/uL Sodium (137-145) mmol/L Creatinine (0.52-1.04) mg/dL Glucose (74-99) mg/dL POC Glucose (mg/dL) 163 H 133 H 145 H (75-99) mg/dL Calcium (8.4-10.2) mg/dL ALT (4-34) U/L Total Protein (6.3-8.2) g/dL Albumin (3.5-5.0) g/dL 04/07/20 04/07/20 04/07/20 Range/Units 03:22 03:22 06:36 WBC 19.8 H (3.8-10.6) k/uL RBC 3.61 L (3.80-5.40) m/uL Hgb 10.1 L (11.4-16.0) gm/dL Hct 32.2 L (34.0-46.0) % RDW 16.9 H (11.5-15.5) % Plt Count 518 H (150-450) k/uL Neutrophils # 18.8 H (1.3-7.7) k/uL Lymphocytes # 0.4 L (1.0-4.8) k/uL Sodium 136 L (137-145) mmol/L Creatinine 0.43 L (0.52-1.04) mg/dL Glucose 139 H (74-99) mg/dL POC Glucose (mg/dL) 130 H (75-99) mg/dL Calcium 7.9 L (8.4-10.2) mg/dL ALT 71 H (4-34) U/L Total Protein 5.4 L (6.3-8.2) g/dL Albumin 2.5 L (3.5-5.0) g/dL 04/07/20 04/07/20 04/07/20 Range/Units 08:24 10:50 11:08 WBC (3.8-10.6) k/uL RBC (3.80-5.40) m/uL Hgb (11.4-16.0) gm/dL Hct (34.0-46.0) % RDW (11.5-15.5) % Plt Count (150-450) k/uL Neutrophils # (1.3-7.7) k/uL Lymphocytes # (1.0-4.8) k/uL Sodium (137-145) mmol/L Creatinine (0.52-1.04) mg/dL Glucose (74-99) mg/dL POC Glucose (mg/dL) 108 H 127 H 135 H (75-99) mg/dL Calcium (8.4-10.2) mg/dL ALT (4-34) U/L Total Protein (6.3-8.2) g/dL Albumin (3.5-5.0) g/dL Microbiology - Last 24 Hours (Table) 04/06/20 04:23 Blood Culture - Preliminary Blood No Growth after 24 hours Assessment and Plan Assessment: Agitated delirium along with metabolic encephalopathy likely multifactorial including Covid 19 pneumonia, is being in ICU, for intubation long period time sepsis Acute hypoxic respiratory failure Covid19 pneumonia Acute pneumonia bacterial bilateral healthcare associated patient is being monitored off of antibiotics now Thrombocytopenia stable Acute respiratory and metabolic acidosis Acute hepatitis/elevated liver enzymes Acute diastolic heart failure Chronic anemia Fibromyalgia Hypertension hypertensive cardiovascular disease Plan: Continue supportive care, avoid benzodiazepine, continue monitor closely once FiO2 down to nasal cannula will move her out of ICU with that we'll help the delirium as well Monitor intake and output closely keep on even a negative side Patient remains on partial nonrebreather mask was slowly titrate oxygen down as tolerated Trend liver enzymes Patient is not a candidate for IV REMdesivir due to markedly elevated liver enzymes IV steroids, continued to taper in next 24 hours will bring it down to once a day Further recommendations pending plan of care as per clinical response of patient Continue anticoagulation with Lovenox Time with Patient: Greater than 30
[2020-04-07 17:16] LABS: Glucose,Whole Blood 145 mg/dL (75-99)
[2020-04-07] MEDS ORDERED: ACETAMINOPHEN IV (For NPO) 1,000 MG in EMPTY BAG 1 BAG IVPB PRN (20:13)
[2020-04-07] MEDS: HALOPERIDOL LACTATE 5 MG/ML 1 ML VIAL IVP PRN (20:53)
[2020-04-07] MEDS: FLUCONAZOLE IN NACL,ISO-OSM 100 MG in SALINE 1 50ML.BAG IVPB SCH (21:30)
[2020-04-07] MEDS ORDERED: VANCOMYCIN IV PER PHARMACY 1 EACH MISC MISCELLANE PRN (22:02)
--- NOTE | 2020-04-07 22:35 | PN ---
PROGRESS NOTE DATE OF SERVICE: 04/07/2020 REASON FOR FOLLOWUP: 1. Pneumonia. 2. Oropharyngeal candidiasis. 3. Positive blood culture. INTERVAL HISTORY: The patient is currently afebrile. The patient is hemodynamically stable, not on any pressor support. Mentation remains an issue. She has been on BiPAP; off it now. She was unable to provide any history. No vomiting or diarrhea has been reported by the nursing staff. PHYSICAL EXAMINATION: Blood pressure 168/82 with a pulse of 90, temperature 98.6. She is 99% on BiPAP. General description is an elderly female lying in bed in no distress. RESPIRATORY SYSTEM: Unlabored breathing with decreased intensity of breath sounds. No wheeze. HEART: S1, S2. Regular rate and rhythm. ABDOMEN: Soft. No tenderness. LABS: Hemoglobin is 10.1, white count 19.8. BUN of 17, creatinine 0.43. DIAGNOSTIC IMPRESSION AND PLAN: 1. Patient with pneumonia that has been adequately treated now. 2. Patient now with worsening of the white count, possibly steroid-related; however, she did have a positive blood culture in this patient who did have a PICC line. Blood culture will be needed from the PICC line and peripherally. We will add vancomycin and monitor her clinical course closely. MMODL / IJN: [id number] /
[2020-04-07] MEDS ORDERED: VANCOMYCIN 1,750 MG in SODIUM CHLORIDE 0.9% 500 ML 500 ML IVPB ONE (23:00)
[2020-04-08 00:14] LABS: Glucose,Whole Blood 126 mg/dL (75-99)
[2020-04-08] MEDS: HYDROmorphone 1 MG/ML 1 ML SYRINGE IVP PRN ×5 (03:49→21:16)
[2020-04-08 05:53] LABS: ALT 55 U/L (4-34); AST 39 U/L (14-36); African American GFR (CKD) >90 (>60 ml/min/1.73 sqM); Albumin 2.5 g/dL (3.5-5.0); Alkaline Phosphatase 91 U/L (38-126); Anion Gap 5 mmol/L; Blood Urea Nitrogen 15 mg/dL (7-17); Calcium 7.6 mg/dL (8.4-10.2); Carbon Dioxide 24 mmol/L (22-30); Chloride 108 mmol/L (98-107); Glucose 137 mg/dL (74-99); Non-African American GFR(CKD) >90 (>60 ml/min/1.73 sqM); Potassium 4.1 mmol/L (3.5-5.1); Sodium 137 mmol/L (137-145); Total Bilirubin 0.8 mg/dL (0.2-1.3); Total Protein 5.5 g/dL (6.3-8.2)
[2020-04-08 06:05] LABS: Anisocytosis Slight; Basophils % (A) 0 %; Eosinophils # (A) 0.1 k/uL (0-0.7); Eosinophils % (A) 0 %; HCT 33.1 % (34.0-46.0); Hypochromasia Marked; Lymphocytes # (A) 0.3 k/uL (1.0-4.8); Lymphocytes % (A) 2 %; MCH 27.2 pg (25.0-35.0); MCHC 30.3 g/dL (31.0-37.0); MCV 89.7 fL (80.0-100.0); Mean Platelet Volume 9.1; Monocytes # (A) 0.4 k/uL (0-1.0); Monocytes % (A) 3 %; Neutrophils # (A) 14.8 k/uL (1.3-7.7); Neutrophils % (A) 95 %; Platelet Count 405 k/uL (150-450); Poikilocytosis Moderate; RBC 3.68 m/uL (3.80-5.40); RDW 17.2 % (11.5-15.5); WBC 15.6 k/uL (3.8-10.6)
[2020-04-08 06:40] LABS: Glucose,Whole Blood 135 mg/dL (75-99)
[2020-04-08] MEDS: INSULIN ASPART (NovoLOG) 100 UNIT/ML VIAL SQ SCH ×5 (06:42→23:54)
--- NOTE | 2020-04-08 07:34 | XR ---
EXAMINATION TYPE: XR chest 1V DATE OF EXAM: 04/08/2020 COMPARISON: Prior chest x-ray 04/07/2020 HISTORY: Abnormal chest x-ray, change in respiratory status TECHNIQUE: Single frontal view of the chest is obtained. FINDINGS: Bilateral airspace disease persists and is perhaps more confluent. No evident pneumothorax or sizable effusion. Heart is obscured. Right-sided PICC line is in place with the distal tip near t he cavoatrial junction. There are overlying leads. IMPRESSION: Correlate for pneumonia, edema
[2020-04-08] MEDS: SODIUM CHLORIDE 0.9% 1,000 ML IV SCH ×2 (08:12→09:13)
--- NOTE | 2020-04-08 08:36 | P.PN ---
Subjective Principal diagnosis: Respiratory failure related Covid pneumonia.. Otherwise appreciate multiple consultants input. She seems to be improving otherwise. She seems to be following commands today. Objective - Vital Signs Vital signs: Vital Signs Temp 98.3 F 04/08/20 08:00 Pulse 67 04/08/20 08:00 Resp 21 04/08/20 08:00 BP 163/90 04/08/20 08:00 Pulse Ox 93 L 04/08/20 08:00 Intake & Output 04/07/20 04/08/20 04/08/20 18:59 06:59 18:59 Intake Total 800 1176 150 Output Total 1220 675 175 Balance -420 501 -25 Weight 85.6 kg 85.8 kg Intake: IV 800 1176 150 Potassium Chloride 20 meq 200 In Water For Injection 1 100ml.bag @ 50 mls/hr IVPB Q2H [facility] Rx#: [id number] Sodium Chloride 0.9% 1, 600 1176 150 000 ml @ 75 mls/hr IV . [id number] [facility] Rx#:[id number] Output: Urine 1220 675 175 Other: Voiding Method Indwelling Catheter Indwelling Catheter - Constitutional General appearance: Present: no acute distress - EENT Eyes: Absent: abnormal pupil - Respiratory Respiratory: bilateral: rhonchi - Cardiovascular Rhythm: regular Heart sounds: normal: S1, S2 Abnormal Heart Sounds: Absent: S3 Gallop - Gastrointestinal General gastrointestinal: Present: soft. Absent: tenderness - Musculoskeletal Musculoskeletal: Present: generalized weakness - Labs CBC & Chem 7: 04/08/20 05:00 04/08/20 05:00 Labs: Abnormal Lab Results - Last 24 Hours (Table) 04/07/20 04/07/20 04/07/20 Range/Units 10:50 11:08 17:14 WBC (3.8-10.6) k/uL RBC (3.80-5.40) m/uL Hgb (11.4-16.0) gm/dL Hct (34.0-46.0) % MCHC (31.0-37.0) g/dL RDW (11.5-15.5) % Neutrophils # (1.3-7.7) k/uL Lymphocytes # (1.0-4.8) k/uL Chloride (98-107) mmol/L Creatinine (0.52-1.04) mg/dL Glucose (74-99) mg/dL POC Glucose (mg/dL) 127 H 135 H 145 H (75-99) mg/dL Calcium (8.4-10.2) mg/dL AST (14-36) U/L ALT (4-34) U/L Total Protein (6.3-8.2) g/dL Albumin (3.5-5.0) g/dL 04/08/20 04/08/20 04/08/20 Range/Units 00:13 05:00 05:00 WBC 15.6 H (3.8-10.6) k/uL RBC 3.68 L (3.80-5.40) m/uL Hgb 10.0 L (11.4-16.0) gm/dL Hct 33.1 L (34.0-46.0) % MCHC 30.3 L (31.0-37.0) g/dL RDW 17.2 H (11.5-15.5) % Neutrophils # 14.8 H (1.3-7.7) k/uL Lymphocytes # 0.3 L (1.0-4.8) k/uL Chloride 108 H (98-107) mmol/L Creatinine 0.39 L (0.52-1.04) mg/dL Glucose 137 H (74-99) mg/dL POC Glucose (mg/dL) 126 H (75-99) mg/dL Calcium 7.6 L (8.4-10.2) mg/dL AST 39 H (14-36) U/L ALT 55 H (4-34) U/L Total Protein 5.5 L (6.3-8.2) g/dL Albumin 2.5 L (3.5-5.0) g/dL 04/08/20 Range/Units 06:39 WBC (3.8-10.6) k/uL RBC (3.80-5.40) m/uL Hgb (11.4-16.0) gm/dL Hct (34.0-46.0) % MCHC (31.0-37.0) g/dL RDW (11.5-15.5) % Neutrophils # (1.3-7.7) k/uL Lymphocytes # (1.0-4.8) k/uL Chloride (98-107) mmol/L Creatinine (0.52-1.04) mg/dL Glucose (74-99) mg/dL POC Glucose (mg/dL) 135 H (75-99) mg/dL Calcium (8.4-10.2) mg/dL AST (14-36) U/L ALT (4-34) U/L Total Protein (6.3-8.2) g/dL Albumin (3.5-5.0) g/dL Microbiology - Last 24 Hours (Table) 04/06/20 04:23 Blood Culture Gram Stain - Preliminary Blood 04/06/20 04:23 Blood Culture - Final Blood Assessment and Plan (1) Acute respiratory distress syndrome Current Visit: Yes Status: Acute Code(s): J80 - ACUTE RESPIRATORY DISTRESS SYNDROME SNOMED Code(s): 09738416 (2) Anemia Current Visit: Yes Status: Acute Code(s): D64.9 - ANEMIA, UNSPECIFIED SNOMED Code(s): 758267975 (3) COVID-19 Current Visit: Yes Status: Acute Code(s): U07.1 - COVID-19 SNOMED Code(s): 736006146 (4) Pneumonia Current Visit: Yes Status: Acute Code(s): J18.9 - PNEUMONIA, UNSPECIFIED OR GANISM SNOMED Code(s): 840496991 (5) Fibromyalgia Current Visit: No Status: Acute Code(s): M79.7 - FIBROMYALGIA SNOMED Code(s): 168271584 Plan: Appropriate supportive care. Prognosis still Guarded due to her Covid 19. We'll continue to follow with consultants. Check CBC and CMP in a.m. Time with Patient: Greater than 30
[2020-04-08] MEDS: PANTOPRAZOLE 40 MG/10 ML VIAL IVP SCH ×2 (08:42→19:52)
[2020-04-08] MEDS: methylPREDNISolone SOD SUCCI 40 MG/ML 1 ML VIAL IV SCH ×2 (08:42→19:55)
[2020-04-08] MEDS: ASCORBIC ACID 500 MG TAB PO SCH ×2 (08:42→19:48)
[2020-04-08] MEDS: CHOLECALCIFEROL 400 UNIT TAB PO SCH (08:42)
[2020-04-08] MEDS: ENOXAPARIN 40 MG/0.4 ML SYRINGE SQ SCH ×2 (08:42→19:55)
[2020-04-08] MEDS: ZINC SULFATE 220 MG CAP PO SCH (08:43)
--- NOTE | 2020-04-08 10:58 | P.PN ---
<Ana Parks - Last Filed: 04/08/20 10:54> Subjective Progress Note Date: 04/08/20 CHIEF COMPLAINT: GI bleed HISTORY OF PRESENT ILLNESS: Patient is currently hospitalized for respiratory failure and is COVID positive. She is being followed for her GI bleed. Patient has had no active bleeding. No bowel movement reported. She was extubated over the weekend. She is currently on BiPAP and being transitioned to Airvo. She is scheduled for swallow evaluation. Apparently tube feedings have been on hold since patient was extubated. Afebrile. WBC 15.6 hemoglobin 10 PHYSICAL EXAM: VITAL SIGNS: Reviewed. GENERAL: Well-developed in no acute distress. HEENT: No sclera icterus. Extraocular movements grossly intact. Moist buccal mucosa. Head is atraumatic, normocephalic. ABDOMEN: Soft. Nondistended. Nontender. NEUROLOGIC: Patient is awake and follows simple commands per nursing staff ASSESSMENT: 1. Acute GI bleed 2. Acute on chronic blood loss anemia 3. Elevated liver enzymes with large gallstone present on abdominal ultrasound 4. Acute hypoxic respiratory failure requiring intubation 5. COVID positive PLAN: -Continue supportive care -Patient scheduled for swallow evaluation later today -Continue to monitor hemoglobin -Dr. Henry will proceed with upper and lower endoscopy when stable Physician Hair Weaver note has been reviewed by physician. Signing provider agrees with the documented findings, assessment, and plan of care. Objective - Vital Signs Vital signs: Vital Signs Temp 98.3 F 04/08/20 08:00 Pulse 68 04/08/20 10:00 Resp 24 04/08/20 10:00 BP 179/86 04/08/20 10:00 Pulse Ox 93 L 04/08/20 10:37 Intake & Output 04/07/20 04/08/20 04/08/20 18:59 06:59 18:59 Intake Total 800 1176 300 Output Total 1220 675 275 Balance -420 501 25 Weight 85.6 kg 85.8 kg Intake: IV 800 1176 300 Potassium Chloride 20 meq 200 In Water For Injection 1 100ml.bag @ 50 mls/hr IVPB Q2H [facility] Rx#: [id number] Sodium Chloride 0.9% 1, 600 1176 300 000 ml @ 75 mls/hr IV . [id number] [facility] Rx#:[id number] Output: Urine 1220 675 275 Other: Voiding Method Indwelling Catheter Indwelling Catheter Indwelling Catheter - Labs CBC & Chem 7: 04/08/20 05:00 04/08/20 05:00 Labs: Abnormal Lab Results - Last 24 Hours (Table) 04/07/20 04/07/20 04/08/20 Range/Units 11:08 17:14 00:13 WBC (3.8-10.6) k/uL RBC (3.80-5.40) m/uL Hgb (11.4-16.0) gm/dL Hct (34.0-46.0) % MCHC (31.0-37.0) g/dL RDW (11.5-15.5) % Neutrophils # (1.3-7.7) k/uL Lymphocytes # (1.0-4.8) k/uL Chloride (98-107) mmol/L Creatinine (0.52-1.04) mg/dL Glucose (74-99) mg/dL POC Glucose (mg/dL) 135 H 145 H 126 H (75-99) mg/dL Calcium (8.4-10.2) mg/dL AST (14-36) U/L ALT (4-34) U/L Total Protein (6.3-8.2) g/dL Albumin (3.5-5.0) g/dL 04/08/20 04/08/20 04/08/20 Range/Units 05:00 05:00 06:39 WBC 15.6 H (3.8-10.6) k/uL RBC 3.68 L (3.80-5.40) m/uL Hgb 10.0 L (11.4-16.0) gm/dL Hct 33.1 L (34.0-46.0) % MCHC 30.3 L (31.0-37.0) g/dL RDW 17.2 H (11.5-15.5) % Neutrophils # 14.8 H (1.3-7.7) k/uL Lymphocytes # 0.3 L (1.0-4.8) k/uL Chloride 108 H (98-107) mmol/L Creatinine 0.39 L (0.52-1.04) mg/dL Glucose 137 H (74-99) mg/dL POC Glucose (mg/dL) 135 H (75-99) mg/dL Calcium 7.6 L (8.4-10.2) mg/dL AST 39 H (14-36) U/L ALT 55 H (4-34) U/L Total Protein 5.5 L (6.3-8.2) g/dL Albumin 2.5 L (3.5-5.0) g/dL Microbiology - Last 24 Hours (Table) 04/07/20 15:40 Blood Culture Gram Stain - Preliminary Blood 04/07/20 15:40 Blood Culture - Final Blood 04/06/20 04:23 Blood Culture Gram Stain - Preliminary Blood Blood Culture - Preliminary Gram Positive Bacilli Isolated 04/06/20 04:23 Blood Culture - Final Blood <William Henry - Last Filed: 04/08/20 17:47> Subjective As above. Patient extubated. Hemoglobin stable. No evidence of active bleeding. Patient with possible aspiration on swallow evaluation. She is not a candidate for gastrostomy placement given the previous findings of large hiatal hernia. Consider resuming TPN for now. Objective - Vital Signs Vital signs: Vital Signs Temp 98.3 F 04/08/20 16:00 Pulse 98 04/08/20 16:00 Resp 18 04/08/20 16:00 BP 183/93 04/08/20 16:00 Pulse Ox 93 L 04/08/20 16:20 Intake & Output 04/07/20 04/08/20 04/08/20 18:59 06:59 18:59 Intake Total 800 1176 1025 Output Total 1220 675 805 Balance -420 501 220 Weight 85.6 kg 85.8 kg Intake: IV 800 1176 525 Potassium Chloride 20 meq 200 In Water For Injection 1 100ml.bag @ 50 mls/hr IVPB Q2H [facility] Rx#: [id number] Sodium Chloride 0.9% 1, 600 1176 525 000 ml @ 75 mls/hr IV . [id number] [facility] Rx#:[id number] Intake, IV Titration 500 Amount Vancomycin 1,750 mg In 500 Sodium Chloride 0.9% 500 ml 500 ml @ 167 mls/hr IVPB Q12H [facility] Rx#: [id number] Output: Urine 1220 675 805 Other: Voiding Method Indwelling Catheter Indwelling Catheter Indwelling Catheter - Labs CBC & Chem 7: 04/08/20 05:00 04/08/20 05:00 Labs: Abnormal Lab Results - Last 24 Hours (Table) 04/02/20 04/08/20 04/08/20 Range/Units 04:00 00:13 05:00 WBC (3.8-10.6) k/uL RBC (3.80-5.40) m/uL Hgb (11.4-16.0) gm/dL Hct (34.0-46.0) % MCHC (31.0-37.0) g/dL RDW (11.5-15.5) % Neutrophils # (1.3-7.7) k/uL Lymphocytes # (1.0-4.8) k/uL Chloride 108 H (98-107) mmol/L Creatinine 0.39 L (0.52-1.04) mg/dL Glucose 137 H (74-99) mg/dL POC Glucose (mg/dL) 126 H (75-99) mg/dL Calcium 7.6 L (8.4-10.2) mg/dL AST 39 H (14-36) U/L ALT 55 H (4-34) U/L LD Isoenzymes 298 H (120-250) U/L Total Protein 5.5 L (6.3-8.2) g/dL Albumin 2.5 L (3.5-5.0) g/dL 04/08/20 04/08/20 04/08/20 Range/Units 05:00 06:39 11:48 WBC 15.6 H (3.8-10.6) k/uL RBC 3.68 L (3.80-5.40) m/uL Hgb 10.0 L (11.4-16.0) gm/dL Hct 33.1 L (34.0-46.0) % MCHC 30.3 L (31.0-37.0) g/dL RDW 17.2 H (11.5-15.5) % Neutrophils # 14.8 H (1.3-7.7) k/uL Lymphocytes # 0.3 L (1.0-4.8) k/uL Chloride (98-107) mmol/L Creatinine (0.52-1.04) mg/dL Glucose (74-99) mg/dL POC Glucose (mg/dL) 135 H 123 H (75-99) mg/dL Calcium (8.4-10.2) mg/dL AST (14-36) U/L ALT (4-34) U/L LD Isoenzymes (120-250) U/L Total Protein (6.3-8.2) g/dL Albumin (3.5-5.0) g/dL Microbiology - Last 24 Hours (Table) 04/07/20 15:30 Blood Culture - Preliminary Blood No Growth after 24 hours 04/07/20 15:40 Blood Culture Gram Stain - Preliminary Blood 04/07/20 15:40 Blood Culture - Final Blood 04/06/20 04:23 Blood Culture Gram Stain - Preliminary Blood Blood Culture - Preliminary Gram Positive Bacilli Isolated 04/06/20 04:23 Blood Culture - Final Blood Assessment and Plan (1) GI bleed Current Visit: Yes Status: Acute Code(s): K92.2 - GASTROINTESTINAL HEMORRHAGE, UNSPECIFIED SNOMED Code(s): 96849978
[2020-04-08 11:49] LABS: Glucose,Whole Blood 123 mg/dL (75-99)
--- NOTE | 2020-04-08 12:05 | P.PN ---
Subjective Progress Note Date: 04/08/20 Principal diagnosis: Acute hypoxic respiratory failure Covid19 pneumonia Acute respiratory and metabolic acidosis Acute hepatitis/elevated liver enzymes Acute diastolic heart failure and fluid overload Chronic anemia Fibromyalgia Hypertension hypertensive cardiovascular disease 04/08/2020, patient seen eval examined during the rounds labs reviewed medications reviewed care plan discussed, patient remains on BiPAP 15/5 with 70% oxygen, oxygen saturation 94% more awake alert, will try high flow aerosolized oxygen, blood culture positive for gram positive cocci in chain, patient is on IV vancomycin he is following 04/07/2020, patient seen eval examined during the rounds labs reviewed medications reviewed, mental status remains stable slightly improved however, patient intermittently get anxious and agitated, low-grade temperature 90 is present hemodynamically stable though, saturation is 90% to 93% on partial nonrebreather mask, chest x-ray remains stable, white cell count remains elevated, 04/06/2020, patient seen eval examined during the rounds labs reviewed medications reviewed, patient remains off of ventilator, mental status slightly better today compared to last 24-48 hours less agitated awake oriented 1 now, remains on partial nonrebreather mask, saturation is 94%, LAD pressure slightly running on the higher side remains on IV hydralazine, oxygen saturation is 94% to 96%, 04/05/2020, patient seen eval reexamined successfully weaned and extubated yesterday has been on supplemental oxygen 2-4 L, in the last 8-12 hours however decompensation in oxygenation status as well as patient even though awake but remains agitated appears to have a agitated delirium, does require Dilaudid at a regular interval, remains afebrile, oxygen saturation is 99% on 10 L nonrebreather mask, patient cannot take by mouth medicines are listed IV, will try morphine as needed DC Dilaudid, 04/04/2020, patient seen eval examined during the rounds labs reviewed medications reviewed care plan discussed, patient is awake now remains off of propofol since yesterday, does make intermittent eye contact, remains slightly withdrawn however, respiratory status stable, remains on assist control mode rate of 24, tidal volume is 450, +5 of PEEP, 40% oxygen, peak airway pressure stable, chest x-ray shows bilateral diffuse interstitial infiltrate stable ET tube and NG tube in PICC line, white cell count is 13,400, hemoglobin and hematocrit stable 9.4 and 31, arterial blood gases reviewed pH is 7.4 to pCO2 32 pO2 64, BUN/creatinine is 32 and 0.5, patient is reviewed Lovenox remains 2040 mg subcu twice a day on IV furosemide, Solu-Medrol is 60 mg IV every 6 we'll decrease it to every 12 04/03/2020, patient seen eval examined during rounds labs reviewed medications reviewed, care plan discussed, overall hemodynamically he remains stable blood pressure spiked up on hydralazine when necessary, seems to be helping, patient sedated with propofol drip 50 mics, attempts for weaning of protocol has been unsuccessful as patient becomes agitated, attempted Precedex drip has been unsuccessful as well, current vent settings include assist control rate of 24 breathing 24, FiO2 is 40%, PEEP is 5, tidal volume is 450, chest x-ray stable ET tube with bilateral multifocal infiltrate with consolidation consistent with cold with 19 pneumonia not essentially much change from the prior x-ray, ET tube and NG tube was stable, patient is getting tube feed bolus feeding, labs including ABG chemistry reviewed 04/02/2020, patient seen eval examined during the rounds labs reviewed medications reviewed care plan discussed, patient remains sedated with propofol on ventilator for full ventilator support, currently patient is on assist control mode rate Tuesday for breathing 24, tidal volume is 450, 5 of PEEP, 40% oxygen, propofol is 50 mics, chest x-ray from today reviewed continue show patchy bilateral infiltrate without any significant interval change, arterial bl ood gases revealed pH of 7.43 pCO2 32, C-reactive protein is down to 21, BUN/creatinine is 34/.49, white cell count and hemoglobin remained stable, medications reviewed, she remains on broad-spectrum antibiotic with cephapirin, Lovenox, gentle diuresis with Lasix, blood pressure control with IV hydralazine, patient remains on high-dose IV steroids, discussed with the staff at length, will stop the propofol drip and once patient is awake put on CPAP 5 pressure support of 5 gas after half an hour also check weaning parameters 04/01/2020, patient seen eval examined labs reviewed medications reviewed care plan discussed with the staff at length patient had a sedation holiday today she is arousable and awake follows simple commands with blood pressure went up becomes agitated anxious requiring a reinitiation of propofol drip, ventilator setting remains unchanged, patient is on rate of 24 tidal volume is 450, PEEP is 5, oxygen is 40%, chest x-ray from today reviewed remains overall stable with stable lines and tubes 03/31/2020, patient seen eval examined during the rounds labs reviewed m edications reviewed care plan discussed, patient remains on full ventilator support, propofol was changed to Precedex but however patient becomes agitated so back on propofol when setting remains unchanged have been on assist control rate of 24, PEEP is 5, FiO2 is 40%, tidal volume of 450, care plan discussed with the staff at length critical care time 35 minutes 03/30/2020, patient seen eval examined during the rounds labs reviewed medications reviewed, remains sedated with propofol, current vent setting include his control rate of 24 breathing 24 tidal volume is 450, deep is 5 now, FiO2 is 40%, tolerating tube feed very well, chest x-ray reviewed slightly better but stable bilateral infiltrate consistent with atypical pneumonia, patient continued IVs very well with 20 mg Lasix daily, white cell count remained stable, with stable hemoglobin and however decreasing platelet count noted, dear blood gases revealed pH of 7.4 to pCO2 34 pO2 of 62, BUN/creatinine is 36 and 0.62, left he continue show downward trend, inflammatory markers reviewed still elevated but showing a downward trend 03/29/2020, patient seen eval examined during the rounds labs reviewed medications reviewed, care plan discussed with the nursing staff at length, patient has been on assist control rate of the 24 PEEP of 8 400 tidal volume 50% oxygen, ventilator has been adjusted with reduction in PEEP and oxygen, patient's saturation remained stable 91-92%, next step he is to stop propofol and reassess the mental status and if patient remains stable oxygen randolph and hemodynamics can do a CPAP pressure support trial in the meantime we'll continue IV steroids, antibiotics, CBC and ABG reviewed, today's chest x-ray showed bilateral interstitial infiltrate, predominantly at the bases, patient has been on Lasix 20 mg daily diuresing very well, critical care time 35 minutes 03/28/2020, patient seen eval examined during the rounds labs reviewed medications reviewed care plan discussed oxygen has been down to 40% now. The patient is PEEP of 8, otherwise ventilator setting remains stable, patient is scheduled for PICC line later on today, remains on propofol, remains on broad- spectrum antibiotics, labs from today has been reviewed hemoglobin is stable 7.9, d-dimer is 3.24, arterial blood gases stable pH is 7.41 pCO2 35 pO2 96, BUN/creatinine is 51 and 1.05, ferritin level remains more than 26,000, AST ALT continued decline however today is 367 and 558, C-reactive protein checked 69.5 her chest x-ray earlier than today remains there however appears to have slightly progressed 03/27/2020, patient seen eval examined during the rounds labs reviewed medications reviewed care plan discussed, propofol has been discontinued patient because very restless and anxious, we'll restart propofol, patient has been on full ventilator support assist control 24 tidal volume of 450, PEEP is 10, oxygen is 70%, arterial blood gases reviewed when lower the FiO2 to 60% now plan to bring down the FiO2 to 50% and PEEP of 8 next 24 hours, sputum and blood cultures reviewed no growth so far, chest x-ray performed today reviewed significant improvement in infiltrates seen bilaterally, patient has a poor urine output throughout the night, 20 mg of Lasix was given put out 600 mL of urine patient continued to be on gentle hydration, remain on cefapime and Vanco, Lovenox Solu-Medrol multivitamin and vitamin C zinc and Lovenox, white cell count is stable 10,500 hemoglobin and hematocrit 7.2 and 24, general surgery has been following patient is considered to get EGD and colonoscopy once stable, arterial blood gas revealed pH of 7.39 pCO2 of 39 pO2 of 124, bicarb 25, liver enzymes continue to come down AST and ALT now is 944/809, hepatitis panel normal and nonreactive 03/26/2020, patient seen eval examined in the ICU care plan discussed with the staff, FiO2 has been down to 60%, patient remains on assist control tidal volume of 450, PEEP is 10, respiratory rate is 24 breathing with the respirator pH has been improved significantly, patient is making adequate urine chest x-ray compared with yesterday's x-ray some improvement have been noted, white cell count is 11,000, hemoglobin 7.9 which is stable, arterial blood gas improved to 7.39, pCO2 of 40, pO2 112, BUN/creatinine is 33/0.96, lactic acid was 5.9 down to 1.3 now, ferritin level noted to be 12,800, AST and ALT are 4014 100 with LDH over 21,500, today LFTs significantly improved AST is down to 2795 and ALT is 1222, pro calcitonin is 0.84, suspect some component of heart failure as well as pneumonia, will get an echocardiogram as well as start patient on broad-spectrum antibiotics with cefepime and Vanco Patient seen and evaluated examined in the emergency department, patient came into the ER from the office of Dr. Aleman due to progressive shortness of breath, patient has acute on chronic hypoxic respiratory failure on 4 L oxygen, also has issues associated with pneumonia presumed to be cold with 19, however, testing was negative, patient used to smoke in the remote past quit about 20-30 years ago due to severity or shortness of breath and hypoxia with saturation of 76% on 100% oxygen and respiratory distress patient was intubated due to poor tolerance on BiPAP, patient Covid testing came back positive, chest x-ray sh owing diffuse infiltrate she also has been noted to have elevated liver enzymes due to elevated liver enzymes will not start IV REMdesivir, Initial ABG pH is 7.18, pCO2 is 63 pO2 was only 33 Objective - Vital Signs Vital signs: Vital Signs Temp 98.3 F 04/08/20 08:00 Pulse 68 04/08/20 10:00 Resp 24 04/08/20 10:00 BP 179/86 04/08/20 10:00 Pulse Ox 93 L 04/08/20 10:37 Intake & Output 04/07/20 04/08/20 04/08/20 18:59 06:59 18:59 Intake Total 800 1176 300 Output Total 1220 675 275 Balance -420 501 25 Weight 85.6 kg 85.8 kg Intake: IV 800 1176 300 Potassium Chloride 20 meq 200 In Water For Injection 1 100ml.bag @ 50 mls/hr IVPB Q2H NONA Rx#: [id number] Sodium Chloride 0.9% 1, 600 1176 300 000 ml @ 75 mls/hr IV . [id number] NONA Rx#:[id number] Output: Urine 1220 675 275 Other: Voiding Method Indwelling Catheter Indwelling Catheter Indwelling Catheter - Exam on nonrebreather partial mask saturation is mid 90s to low 90s, mental status however not much clear - Constitutional General appearance: average body habitus, mild distress, restless intermittently agitated - EENT Ears: bilateral: normal - Neck Carotids: bilateral: upstroke normal Thyroid: bilateral: normal size - Respiratory Respiratory: bilateral: diminished - Cardiovascular Rhythm: regular Heart sounds: normal: S1, S2 - Gastrointestinal General gastrointestinal: normal bowel sounds - Labs CBC & Chem 7: 04/08/20 05:00 04/08/20 05:00 Labs: Abnormal Lab Results - Last 24 Hours (Table) 04/07/20 04/08/20 04/08/20 Range/Units 17:14 00:13 05:00 WBC (3.8-10.6) k/uL RBC (3.80-5.40) m/uL Hgb (11.4-16.0) gm/dL Hct (34.0-46.0) % MCHC (31.0-37.0) g/dL RDW (11.5-15.5) % Neutrophils # (1.3-7.7) k/uL Lymphocytes # (1.0-4.8) k/uL Chloride 108 H (98-107) mmol/L Creatinine 0.39 L (0.52-1.04) mg/dL Glucose 137 H (74-99) mg/dL POC Glucose (mg/dL) 145 H 126 H (75-99) mg/dL Calcium 7.6 L (8.4-10.2) mg/dL AST 39 H (14-36) U/L ALT 55 H (4-34) U/L Total Protein 5.5 L (6.3-8.2) g/dL Albumin 2.5 L (3.5-5.0) g/dL 04/08/20 04/08/20 04/08/20 Range/Units 05:00 06:39 11:48 WBC 15.6 H (3.8-10.6) k/uL RBC 3.68 L (3.80-5.40) m/uL Hgb 10.0 L (11.4-16.0) gm/dL Hct 33.1 L (34.0-46.0) % MCHC 30.3 L (31.0-37.0) g/dL RDW 17.2 H (11.5-15.5) % Neutrophils # 14.8 H (1.3-7.7) k/uL Lymphocytes # 0.3 L (1.0-4.8) k/uL Chloride (98-107) mmol/L Creatinine (0.52-1.04) mg/dL Glucose (74-99) mg/dL POC Glucose (mg/dL) 135 H 123 H (75-99) mg/dL Calcium (8.4-10.2) mg/dL AST (14-36) U/L ALT (4-34) U/L Total Protein (6.3-8.2) g/dL Albumin (3.5-5.0) g/dL Microbiology - Last 24 Hours (Table) 04/07/20 15:40 Blood Culture Gram Stain - Preliminary Blood 04/07/20 15:40 Blood Culture - Final Blood 04/06/20 04:23 Blood Culture Gram Stain - Preliminary Blood Blood Culture - Preliminary Gram Positive Bacilli Isolated 04/06/20 04:23 Blood Culture - Final Blood Assessment and Plan Assessment: Gram-positive bacteremia Agitated delirium along with metabolic encephalopathy likely multifactorial including Covid 19 pneumonia, is being in ICU, for intubation long period time sepsis, slowly improving Acute hypoxic respiratory failure Covid19 pneumonia Acute pneumonia bacterial bilateral healthcare associated patient is being monitored off of antibiotics now Thrombocytopenia stable Acute respiratory and metabolic acidosis Acute hepatitis/elevated liver enzymes Acute diastolic heart failure Chronic anemia Fibromyalgia Hypertension hypertensive cardiovascular disease Plan: Continue supportive care, avoid benzodiazepine, continue monitor closely once FiO2 down to nasal cannula will move her out of ICU with that we'll help the delirium as well Recommend to consult infectious disease services for gram-positive bacteremia, continue IV vancomycin Monitor intake and output closely keep on even a negative side Patient remains on partial nonrebreather mask was slowly titrate oxygen down as tolerated Trend liver enzymes Patient is not a candidate for IV REMdesivir due to markedly elevated liver enzymes IV steroids, continued to taper in next 24 hours will bring it down to once a day Further recommendations pending plan of care as per clinical response of patient Continue anticoagulation with Lovenox Time with Patient: Greater than 30
[2020-04-08] MEDS: HALOPERIDOL LACTATE 5 MG/ML 1 ML VIAL IVP PRN (12:30)
[2020-04-08] MEDS: VANCOMYCIN 1,750 MG in SODIUM CHLORIDE 0.9% 500 ML 500 ML IVPB SCH (14:23)
[2020-04-08] MEDS: hydrALAZINE HCL 20 MG/ML 1 ML VIAL IVP PRN ×2 (15:50→21:16)
[2020-04-08 16:35] LABS: LD Isoenzymes 1 27 % (19-38); LD Isoenzymes 2 42 % (30-43); LD Isoenzymes 3 19 % (16-26); LD Isoenzymes 4 6 % (3-12); LD Isoenzymes 5 6 % (3-14); Lactacte Dehydrogenase(LD) ISO 298 U/L (120-250)
[2020-04-08 17:52] LABS: Glucose,Whole Blood 170 mg/dL (75-99)
[2020-04-08] MEDS: FLUCONAZOLE IN NACL,ISO-OSM 100 MG in SALINE 1 50ML.BAG IVPB SCH (19:55)
--- NOTE | 2020-04-08 22:05 | PN ---
PROGRESS NOTE DATE OF SERVICE: 04/08/2020 REASON FOR FOLLOWUP: Bacteremia. INTERVAL HISTORY: The patient is currently afebrile. The patient is hemodynamically stable. Blood pressure on the high side. Still requiring high-flow nasal cannula oxygen. Patient says she is feeling better, wants to go home. No chest pain. Occasional cough. No abdominal pain or diarrhea. PHYSICAL EXAMINATION: Blood pressure 159/91 with a pulse of 79, temperature 98.3. She is 95% on 50% FiO2. General description is an elderly female lying in bed in no distress. RESPIRATORY SYSTEM: Unlabored breathing with decreased intensity of breath sounds. No wheeze. HEART: S1, S2. Regular rate and rhythm. ABDOMEN: Soft. No tenderness. LABS: White count down to 15.6, BUN of 15, creatinine 0.39. Blood culture has been showing Gram-positive cocci. DIAGNOSTIC IMPRESSION AND PLAN: Patient with a positive blood culture with Gram-positive cocci, possibly related to the PICC line. Recommend discontinuation of the PICC line. Patient is covered with vancomycin. Blood cultures will be repeated to document clearance of her bacteremia and monitor her clinical course closely. MMODL / IJN: [id number] /
[2020-04-08 23:53] LABS: Glucose,Whole Blood 129 mg/dL (75-99)
[2020-04-09] MEDS: VANCOMYCIN 1,750 MG in SODIUM CHLORIDE 0.9% 500 ML 500 ML IVPB SCH ×2 (02:06→13:57)
[2020-04-09] MEDS: SODIUM CHLORIDE 0.9% 1,000 ML IV SCH ×2 (02:07→16:13)
[2020-04-09] MEDS: HYDROmorphone 1 MG/ML 1 ML SYRINGE IVP PRN ×3 (02:24→11:51)
[2020-04-09 04:08] LABS: Anisocytosis Slight; Basophils % (A) 0 %; Eosinophils # (A) 0.1 k/uL (0-0.7); Eosinophils % (A) 1 %; HGB 10.3 gm/dL (11.4-16.0); Hypochromasia Marked; Lymphocytes # (A) 0.2 k/uL (1.0-4.8); Lymphocytes % (A) 1 %; MCH 27.6 pg (25.0-35.0); MCHC 31.1 g/dL (31.0-37.0); MCV 88.7 fL (80.0-100.0); Monocytes # (A) 0.3 k/uL (0-1.0); Monocytes % (A) 2 %; Neutrophils # (A) 15.2 k/uL (1.3-7.7); Neutrophils % (A) 96 %; Platelet Count 452 k/uL (150-450); Poikilocytosis Slight; RBC 3.72 m/uL (3.80-5.40); RDW 17.5 % (11.5-15.5); WBC 15.8 k/uL (3.8-10.6)
[2020-04-09 04:19] LABS: ALT 47 U/L (4-34); AST 31 U/L (14-36); African American GFR (CKD) >90 (>60 ml/min/1.73 sqM); Albumin 2.6 g/dL (3.5-5.0); Alkaline Phosphatase 100 U/L (38-126); Anion Gap 4 mmol/L; Blood Urea Nitrogen 12 mg/dL (7-17); Calcium 7.8 mg/dL (8.4-10.2); Carbon Dioxide 25 mmol/L (22-30); Chloride 107 mmol/L (98-107); Glucose 139 mg/dL (74-99); Non-African American GFR(CKD) >90 (>60 ml/min/1.73 sqM); Potassium 3.9 mmol/L (3.5-5.1); Sodium 136 mmol/L (137-145); Total Bilirubin 0.6 mg/dL (0.2-1.3); Total Protein 5.5 g/dL (6.3-8.2)
[2020-04-09] MEDS: hydrALAZINE HCL 20 MG/ML 1 ML VIAL IVP PRN ×2 (05:06→09:03)
[2020-04-09 06:06] LABS: Glucose,Whole Blood 130 mg/dL (75-99)
[2020-04-09] MEDS: INSULIN ASPART (NovoLOG) 100 UNIT/ML VIAL SQ SCH ×4 (06:08→20:34)
--- NOTE | 2020-04-09 07:31 | XR ---
EXAMINATION TYPE: XR chest 1V portable DATE OF EXAM: 04/09/2020 HISTORY: Shortness of breath. COMPARISON: 04/08/2020 TECHNIQUE: Single view of the chest is submitted. FINDINGS: Diffuse bilateral airspace infiltrates are essentially unchanged. Right-sided PICC line is noted to b e in place. The heart is stable. Hilar and mediastinal structures are within normal limits. Degenerative changes are seen of the dorsal spine. IMPRESSION: 1. Diffuse bilateral airspace infiltrates are essentially unchanged.
[2020-04-09] MEDS: HALOPERIDOL LACTATE 5 MG/ML 1 ML VIAL IVP PRN (08:09)
[2020-04-09] MEDS: ASCORBIC ACID 500 MG TAB PO SCH ×2 (08:52→20:30)
[2020-04-09] MEDS: CHOLECALCIFEROL 400 UNIT TAB PO SCH (08:52)
[2020-04-09] MEDS: ZINC SULFATE 220 MG CAP PO SCH (08:52)
--- NOTE | 2020-04-09 08:53 | P.PN ---
Subjective Principal diagnosis: Respiratory failure related Covid pneumonia.. Otherwise appreciate multiple consultants input. She seems to be improving otherwise. She seems to be following commands today. Hopefully we can slowly advance diet if she can tolerate. Speech therapy has been consulted. Objective - Vital Signs Vital signs: Vital Signs Temp 98.2 F 04/09/20 04:00 Pulse 84 04/09/20 07:00 Resp 15 04/09/20 07:00 BP 179/81 04/09/20 07:00 Pulse Ox 94 L 04/09/20 07:44 Intake & Output 04/08/20 04/09/20 04/09/20 18:59 06:59 18:59 Intake Total 1175 1450 75 Output Total 1030 1015 45 Balance 145 435 30 Weight 84.7 kg Intake: IV 675 1450 75 Fluconazole in NaCl,Iso- 50 Osm 100 mg In Saline 1 50ml.bag @ 50 mls/hr IVPB HS NONA Rx#:[id number] Sodium Chloride 0.9% 1, 675 900 75 000 ml @ 75 mls/hr IV . [id number] NONA Rx#:[id number] Vancomycin 1,750 mg In 500 Sodium Chloride 0.9% 500 ml 500 ml @ 167 mls/hr IVPB Q12H NONA Rx#: [id number] Intake, IV Titration 500 Amount Vancomycin 1,750 mg In 500 Sodium Chloride 0.9% 500 ml 500 ml @ 167 mls/hr IVPB Q12H NONA Rx#: [id number] Output: Urine 1030 1015 45 Other: Voiding Method Indwelling Catheter Indwelling Catheter - Constitutional General appearance: Present: average body habitus - EENT Eyes: Absent: abnormal pupil - Neck Neck: Absent: lymphadenopathy - Respiratory Respiratory: bilateral: diminished - Cardiovascular Rhythm: regular Heart sounds: normal: S1, S2 Abnormal Heart Sounds: Absent: S3 Gallop - Gastrointestinal General gastrointestinal: Present: scaphoid. Absent: tenderness - Integumentary Integumentary: Absent: cellulitis - Labs CBC & Chem 7: 04/09/20 03:43 04/09/20 03:43 Labs: Abnormal Lab Results - Last 24 Hours (Table) 04/02/20 04/08/20 04/08/20 Range/Units 04:00 11:48 17:51 WBC (3.8-10.6) k/uL RBC (3.80-5.40) m/uL Hgb (11.4-16.0) gm/dL Hct (34.0-46.0) % RDW (11.5-15.5) % Plt Count (150-450) k/uL Neutrophils # (1.3-7.7) k/uL Lymphocytes # (1.0-4.8) k/uL Sodium (137-145) mmol/L Creatinine (0.52-1.04) mg/dL Glucose (74-99) mg/dL POC Glucose (mg/dL) 123 H 170 H (75-99) mg/dL Calcium (8.4-10.2) mg/dL ALT (4-34) U/L LD Isoenzymes 298 H (120-250) U/L Total Protein (6.3-8.2) g/dL Albumin (3.5-5.0) g/dL 04/08/20 04/09/20 04/09/20 Range/Units 23:52 03:43 03:43 WBC 15.8 H (3.8-10.6) k/uL RBC 3.72 L (3.80-5.40) m/uL Hgb 10.3 L (11.4-16.0) gm/dL Hct 33.0 L (34.0-46.0) % RDW 17.5 H (11.5-15.5) % Plt Count 452 H (150-450) k/uL Neutrophils # 15.2 H (1.3-7.7) k/uL Lymphocytes # 0.2 L (1.0-4.8) k/uL Sodium 136 L (137-145) mmol/L Creatinine 0.42 L (0.52-1.04) mg/dL Glucose 139 H (74-99) mg/dL POC Glucose (mg/dL) 129 H (75-99) mg/dL Calcium 7.8 L (8.4-10.2) mg/dL ALT 47 H (4-34) U/L LD Isoenzymes (120-250) U/L Total Protein 5.5 L (6.3-8.2) g/dL Albumin 2.6 L (3.5-5.0) g/dL 04/09/20 Range/Units 06:04 WBC (3.8-10.6) k/uL RBC (3.80-5.40) m/uL Hgb (11.4-16.0) gm/dL Hct (34.0-46.0) % RDW (11.5-15.5) % Plt Count (150-450) k/uL Neutrophils # (1.3-7.7) k/uL Lymphocytes # (1.0-4.8) k/uL Sodium (137-145) mmol/L Creatinine (0.52-1.04) mg/dL Glucose (74-99) mg/dL POC Glucose (mg/dL) 130 H (75-99) mg/dL Calcium (8.4-10.2) mg/dL ALT (4-34) U/L LD Isoenzymes (120-250) U/L Total Protein (6.3-8.2) g/dL Albumin (3.5-5.0) g/dL Microbiology - Last 24 Hours (Table) 04/07/20 15:40 Blood Culture Gram Stain - Preliminary Blood Blood Culture - Preliminary Group D Enterococcus 04/07/20 15:30 Blood Culture - Preliminary Blood No Growth after 24 hours 04/07/20 15:40 Blood Culture - Final Blood 04/06/20 04:23 Blood Culture Gram Stain - Preliminary Blood Blood Culture - Preliminary Gram Positive Bacilli Isolated Assessment and Plan (1) Acute respiratory distress syndrome Current Visit: Yes Status: Acute Code(s): J80 - ACUTE RESPIRATORY DISTRESS SYNDROME SNOMED Code(s): 99054859 (2) Anemia Current Visit: Yes Status: Acute Code(s): D64.9 - ANEMIA, UNSPECIFIED SNOMED Code(s): 621794947 (3) COVID-19 Current Visit: Yes Status: Acute Code(s): U07.1 - COVID-19 SNOMED Code(s): 286327370 (4) Pneumonia Current Visit: Yes Status: Acute Code(s): J18.9 - PNEUMONIA, UNSPECIFIED ORGANISM SNOMED Code(s): 748470712 (5) Fibromyalgia Current Visit: No Status: Acute Code(s): M79.7 - FIBROMYALGIA SNOMED Code(s): 005838505 Plan: Appropriate supportive care. Prognosis still Guarded due to her Covid 19. We'll continue to follow with consultants. Check CBC and CMP in a.m. Advance diet if possible.
[2020-04-09] MEDS: methylPREDNISolone SOD SUCCI 40 MG/ML 1 ML VIAL IV SCH ×2 (09:03→20:11)
[2020-04-09] MEDS: PANTOPRAZOLE 40 MG/10 ML VIAL IVP SCH ×2 (09:03→20:11)
[2020-04-09] MEDS: ENOXAPARIN 40 MG/0.4 ML SYRINGE SQ SCH ×2 (09:04→20:10)
--- NOTE | 2020-04-09 10:31 | P.PN ---
<Ana Parks - Last Filed: 04/09/20 10:26> Subjective Progress Note Date: 04/09/20 CHIEF COMPLAINT: GI bleed HISTORY OF PRESENT ILLNESS: Patient is currently hospitalized for respiratory failure and is COVID positive. She is being followed for her GI bleed. Patient has had no active bleeding. No bowel movement reported. She was extubated over the weekend. She is currently on Airvo. Patient's tube feedings remain on hold. Patient had possible aspiration on swallow evaluation. She is scheduled for another swallow evaluation today. Patient has positive blood culture. Followed by Dr. Blackburn. Recommended discontinuation of PICC line. Afebrile. WBC 15.8 hemoglobin 10.3 PHYSICAL EXAM: VITAL SIGNS: Reviewed. GENERAL: Well-developed in no acute distress. HEENT: No sclera icterus. Extraocular movements grossly intact. Moist buccal mucosa. Head is atraumatic, normocephalic. ABDOMEN: Soft. Nondistended. Nontender. NEUROLOGIC: Patient is awake and follows simple commands per nursing staff ASSESSMENT: 1. Acute GI bleed 2. Acute on chronic blood loss anemia 3. Elevated liver enzymes with large gallstone present on abdominal ultrasound 4. Acute hypoxic respiratory failure requiring intubation 5. COVID positive PLAN: -Continue supportive care -Patient is not a candidate for gastrostomy placement given previous findings of large hiatal hernia -Patient scheduled for another swallow evaluation later today -Patient may need to be restarted on TPN -Continue to monitor hemoglobin -Dr. Henry will proceed with upper and lower endoscopy when stable Physician Nurse Reviewer note has been reviewed by physician. Signing provider agrees with the documented findings, assessment, and plan of care. Objective - Vital Signs Vital signs: Vital Signs Temp 98.2 F 04/09/20 08:00 Pulse 88 04/09/20 10:00 Resp 16 04/09/20 10:00 BP 183/87 04/09/20 10:00 Pulse Ox 91 L 04/09/20 10:00 Intake & Output 04/08/20 04/09/20 04/09/20 18:59 06:59 18:59 Intake Total 1175 1450 300 Output Total 1030 1015 282 Balance 145 435 18 Weight 84.7 kg Intake: IV 675 1450 300 Fluconazole in NaCl,Iso- 50 Osm 100 mg In Saline 1 50ml.bag @ 50 mls/hr IVPB HS NONA Rx#:[id number] Sodium Chloride 0.9% 1, 675 900 300 000 ml @ 75 mls/hr IV . [id number] NONA Rx#:[id number] Vancomycin 1,750 mg In 500 Sodium Chloride 0.9% 500 ml 500 ml @ 167 mls/hr IVPB Q12H NONA Rx#: [id number] Intake, IV Titration 500 Amount Vancomycin 1,750 mg In 500 Sodium Chloride 0.9% 500 ml 500 ml @ 167 mls/hr IVPB Q12H NONA Rx#: [id number] Output: Urine 1030 1015 282 Other: Voiding Method Indwelling Catheter Indwelling Catheter Indwelling Catheter - Labs CBC & Chem 7: 04/09/20 03:43 04/09/20 03:43 Labs: Abnormal Lab Results - Last 24 Hours (Table) 04/02/20 04/08/20 04/08/20 Range/Units 04:00 11:48 17:51 WBC (3.8-10.6) k/uL RBC (3.80-5.40) m/uL Hgb (11.4-16.0) gm/dL Hct (34.0-46.0) % RDW (11.5-15.5) % Plt Count (150-450) k/uL Neutrophils # (1.3-7.7) k/uL Lymphocytes # (1.0-4.8) k/uL Sodium (137-145) mmol/L Creatinine (0.52-1.04) mg/dL Glucose (74-99) mg/dL POC Glucose (mg/dL) 123 H 170 H (75-99) mg/dL Calcium (8.4-10.2) mg/dL ALT (4-34) U/L LD Isoenzymes 298 H (120-250) U/L Total Protein (6.3-8.2) g/dL Albumin (3.5-5.0) g/dL 04/08/20 04/09/20 04/09/20 Range/Units 23:52 03:43 03:43 WBC 15.8 H (3.8-10.6) k/uL RBC 3.72 L (3.80-5.40) m/uL Hgb 10.3 L (11.4-16.0) gm/dL Hct 33.0 L (34.0-46.0) % RDW 17.5 H (11.5-15.5) % Plt Count 452 H (150-450) k/uL Neutrophils # 15.2 H (1.3-7.7) k/uL Lymphocytes # 0.2 L (1.0-4.8) k/uL Sodium 136 L (137-145) mmol/L Creatinine 0.42 L (0.52-1.04) mg/dL Glucose 139 H (74-99) mg/dL POC Glucose (mg/dL) 129 H (75-99) mg/dL Calcium 7.8 L (8.4-10.2) mg/dL ALT 47 H (4-34) U/L LD Isoenzymes (120-250) U/L Total Protein 5.5 L (6.3-8.2) g/dL Albumin 2.6 L (3.5-5.0) g/dL 04/09/20 Range/Units 06:04 WBC (3.8-10.6) k/uL RBC (3.80-5.40) m/uL Hgb (11.4-16.0) gm/dL Hct (34.0-46.0) % RDW (11.5-15.5) % Plt Count (150-450) k/uL Neutrophils # (1.3-7.7) k/uL Lymphocytes # (1.0-4.8) k/uL Sodium (137-145) mmol/L Creatinine (0.52-1.04) mg/dL Glucose (74-99) mg/dL POC Glucose (mg/dL) 130 H (75-99) mg/dL Calcium (8.4-10.2) mg/dL ALT (4-34) U/L LD Isoenzymes (120-250) U/L Total Protein (6.3-8.2) g/dL Albumin (3.5-5.0) g/dL Microbiology - Last 24 Hours (Table) 04/07/20 15:40 Blood Culture Gram Stain - Preliminary Blood Blood Culture - Preliminary Group D Enterococcus 04/07/20 15:30 Blood Culture - Preliminary Blood No Growth after 24 hours 04/07/20 15:40 Blood Culture - Final Blood 04/06/20 04:23 Blood Culture Gram Stain - Preliminary Blood Blood Culture - Preliminary Gram Positive Bacilli Isolated <William Henry - Last Filed: 04/09/20 20:04> Subjective As above. Patient doing better. Tolerating diet at this time. No bowel movement last 2 days. Hemoglobin stable. We will follow with you. Objective - Vital Signs Vital signs: Vital Signs Temp 98.4 F 04/09/20 16:00 Pulse 106 H 04/09/20 19:00 Resp 12 04/09/20 19:00 BP 156/87 04/09/20 19:00 Pulse Ox 90 L 04/09/20 19:00 Intake & Output 04/09/20 04/09/20 04/10/20 06:59 18:59 06:59 Intake Total 1450 1400 75 Output Total 1015 812 65 Balance 435 588 10 Weight 84.7 kg Intake: IV 1450 1400 75 Fluconazole in NaCl,Iso- 50 Osm 100 mg In Saline 1 50ml.bag @ 50 mls/hr IVPB HS NONA Rx#:[id number] Sodium Chloride 0.9% 1, 900 900 75 000 ml @ 75 mls/hr IV . [id number] NONA Rx#:[id number] Vancomycin 1,750 mg In 500 500 Sodium Chloride 0.9% 500 ml 500 ml @ 167 mls/hr IVPB Q12H NONA Rx#: [id number] Output: Urine 1015 812 65 Other: Voiding Method Indwelling Catheter Indwelling Catheter # Bowel Movements 1 - Labs CBC & Chem 7: 04/09/20 03:43 04/09/20 03:43 Labs: Abnormal Lab Results - Last 24 Hours (Table) 04/08/20 04/09/20 04/09/20 Range/Units 23:52 03:43 03:43 WBC 15.8 H (3.8-10.6) k/uL RBC 3.72 L (3.80-5.40) m/uL Hgb 10.3 L (11.4-16.0) gm/dL Hct 33.0 L (34.0-46.0) % RDW 17.5 H (11.5-15.5) % Plt Count 452 H (150-450) k/uL Neutrophils # 15.2 H (1.3-7.7) k/uL Lymphocytes # 0.2 L (1.0-4.8) k/uL Sodium 136 L (137-145) mmol/L Creatinine 0.42 L (0.52-1.04) mg/dL Glucose 139 H (74-99) mg/dL POC Glucose (mg/dL) 129 H (75-99) mg/dL Calcium 7.8 L (8.4-10.2) mg/dL ALT 47 H (4-34) U/L Total Protein 5.5 L (6.3-8.2) g/dL Albumin 2.6 L (3.5-5.0) g/dL 04/09/20 04/09/20 04/09/20 Range/Units 06:04 12:01 16:55 WBC (3.8-10.6) k/uL RBC (3.80-5.40) m/uL Hgb (11.4-16.0) gm/dL Hct (34.0-46.0) % RDW (11.5-15.5) % Plt Count (150-450) k/uL Neutrophils # (1.3-7.7) k/uL Lymphocytes # (1.0-4.8) k/uL Sodium (137-145) mmol/L Creatinine (0.52-1.04) mg/dL Glucose (74-99) mg/dL POC Glucose (mg/dL) 130 H 127 H 184 H (75-99) mg/dL Calcium (8.4-10.2) mg/dL ALT (4-34) U/L Total Protein (6.3-8.2) g/dL Albumin (3.5-5.0) g/dL Microbiology - Last 24 Hours (Table) 04/07/20 15:30 Blood Culture - Preliminary Blood No Growth after 48 hours 04/06/20 04:23 Blood Culture Gram Stain - Final Blood Blood Culture - Final Diphtheroid species 04/07/20 15:40 Blood Culture Gram Stain - Preliminary Blood Blood Culture - Preliminary Group D Enterococcus Assessment and Plan (1) GI bleed Current Visit: Yes Status: Acute Code(s): K92.2 - GASTROINTESTINAL HEMORRHAGE, UNSPECIFIED SNOMED Code(s): 55324384
--- NOTE | 2020-04-09 12:00 | P.PN ---
Subjective Progress Note Date: 04/09/20 Principal diagnosis: Acute hypoxic respiratory failure Covid19 pneumonia Acute respiratory and metabolic acidosis Acute hepatitis/elevated liver enzymes Acute diastolic heart failure and fluid overload Chronic anemia Fibromyalgia Hypertension hypertensive cardiovascular disease 04/09/2020, patient seen eval examined in the ICU, respiratory status remains marginal but stable, patient is on 80% aerosolized oxygen 15 L, saturation is 90%, more awake and alert, swallowing functions will be reassessed later on today by speech therapist, mental status changes agitated behavior and confusion remains an issue which causes blood pressure to go up as well, 04/08/2020, patient seen eval examined during the rounds labs reviewed medications reviewed care plan discussed, patient remains on BiPAP 15/5 with 70% oxygen, oxygen saturation 94% more awake alert, will try high flow aerosolized oxygen, blood culture positive for gram positive cocci in chain, patient is on IV vancomycin he is following 04/07/2020, patient seen eval examined during the rounds labs reviewed medi cations reviewed, mental status remains stable slightly improved however, patient intermittently get anxious and agitated, low-grade temperature 90 is present hemodynamically stable though, saturation is 90% to 93% on partial nonrebreather mask, chest x-ray remains stable, white cell count remains e levated, 04/06/2020, patient seen eval examined during the rounds labs reviewed medications reviewed, patient remains off of ventilator, mental status slightly better today compared to last 24-48 hours less agitated awake oriented 1 now, remains on partial nonrebreather mask, saturation is 94%, LAD pressure slightly running on the higher side remains on IV hydralazine, oxygen saturation is 94% t o 96%, 04/05/2020, patient seen eval reexamined successfully weaned and extubated yesterday has been on supplemental oxygen 2-4 L, in the last 8-12 hours however decompensation in oxygenation status as well as patient even though awake but remains agitated appears to have a agitated delirium, does require Dilaudid at a regular interval, remains afebrile, oxygen saturation is 99% on 10 L nonrebrea ther mask, patient cannot take by mouth medicines are listed IV, will try morphine as needed DC Dilaudid, 04/04/2020, patient seen eval examined during the rounds labs reviewed medications reviewed care plan discussed, patient is awake now remains off of propofol since yesterday, does make intermittent eye contact, remains slightly withdrawn however, respiratory status stable, remains on assist control mode rate of 24, tidal volume is 450, +5 of PEEP, 40% oxygen, peak airway pressure stable, chest x-ray shows bilateral diffuse interstitial infiltrate stable ET tube and NG tube in PICC line, white cell count is 13,400, hemoglobin and hematocrit stable 9.4 and 31, arterial blood gases reviewed pH is 7.4 to pCO2 32 pO2 64, BUN/creatinine is 32 and 0.5, patient is reviewed Lovenox remains 2040 mg subcu twice a day on IV furosemide, Solu-Medrol is 60 mg IV every 6 we'll decrease it to every 12 04/03/2020, patient seen eval examined during rounds labs reviewed medications reviewed, care plan discussed, overall hemodynamically he remains stable blood pressure spiked up on hydralazine when necessary, seems to be helping, patient sedated with propofol drip 50 mics, attempts for weaning of protocol has been unsuccessful as patient becomes agitated, attempted Precedex drip has been unsuccessful as well, current vent settings include assist control rate of 24 breathing 24, FiO2 is 40%, PEEP is 5, tidal volume is 450, chest x-ray stable ET tube with bilateral multifocal infiltrate with consolidation consistent with cold with 19 pneumonia not essentially much change from the prior x-ray, ET tube and NG tube was stable, patient is getting tube feed bolus feeding, labs including ABG chemistry reviewed 04/02/2020, patient seen eval examined during the rounds labs reviewed medications reviewed care plan discussed, patient remains sedated with propofol on ventilator for full ventilator support, currently patient is on assist control mode rate Tuesday for breathing 24, tidal volume is 450, 5 of PEEP, 40% oxygen, propofol is 50 mics, chest x-ray from today reviewed continue show pat ignacio bilateral infiltrate without any significant interval change, arterial blood gases revealed pH of 7.43 pCO2 32, C-reactive protein is down to 21, BUN/creatinine is 34/.49, white cell count and hemoglobin remained stable, medications reviewed, she remains on broad-spectrum antibiotic with cephapirin, Lovenox, gentle diuresis with Lasix, blood pressure control with IV hydralazine, patient remains on high-dose IV steroids, discussed with the staff at length, will stop the propofol drip and once patient is awake put on CPAP 5 pressure support of 5 gas after half an hour also check weaning parameters 04/01/2020, patient seen eval examined labs reviewed medications reviewed care plan discussed with the staff at length patient had a sedation holiday today she is arousable and awake follows simple commands with blood pressure went up becomes agitated anxious requiring a reinitiation of propofol drip, ventilator setting remains unchanged, patient is on rate of 24 tidal volume is 450, PEEP is 5, oxygen is 40%, chest x-ray from today reviewed remains overall stable with stable lines and tubes 03/31/2020, patient seen eval examined during the rounds labs reviewed medications reviewed care plan discussed, patient remains on full ventilator support, propofol was changed to Precedex but however patient becomes agitated so back on propofol when setting remains unchanged have been on assist control rate of 24, PEEP is 5, FiO2 is 40%, tidal volume of 450, care plan discussed with the staff at length critical care time 35 minutes 03/30/2020, patient seen eval examined during the rounds labs reviewed medications reviewed, remains sedated with propofol, current vent setting include his control rate of 24 breathing 24 tidal volume is 450, deep is 5 now, FiO2 is 40%, tolerating tube feed very well, chest x-ray reviewed slightly better but stable bilateral infiltrate consistent with atypical pneumonia, patient continued IVs very well with 20 mg Lasix daily, white cell count remained stable, with stable hemoglobin and however decreasing platelet count noted, dear blood gases revealed pH of 7.4 to pCO2 34 pO2 of 62, BUN/creatinine is 36 and 0.62, left he continue show downward trend, inflammatory markers reviewed still elevated but showing a downward trend 03/29/2020, patient seen eval examined during the rounds labs reviewed medications reviewed, care plan discussed with the nursing staff at length, patient has been on assist control rate of the 24 PEEP of 8 400 tidal volume 50% oxygen, ventilator has been adjusted with reduction in PEEP and oxygen, patient's saturation remained stable 91-92%, next step he is to stop propofol and reassess the mental status and if patient remains stable oxygen randolph and hemodynamics can do a CPAP pressure support trial in the meantime we'll continue IV steroids, antibiotics, CBC and ABG reviewed, today's chest x-ray showed bilateral interstitial infiltrate, predominantly at the bases, patient has been on Lasix 20 mg daily diuresing very well, critical care time 35 minutes 03/28/2020, patient seen eval examined during the rounds labs reviewed medications reviewed care plan discussed oxygen has been down to 40% now. The patient is PEEP of 8, otherwise ventilator setting remains stable, patient is scheduled for PICC line later on today, remains on propofol, remains on broad- spectrum antibiotics, labs from today has been reviewed hemoglobin is stable 7.9, d-dimer is 3.24, arterial blood gases stable pH is 7.41 pCO2 35 pO2 96, BUN/creatinine is 51 and 1.05, ferritin level remains more than 26,000, AST ALT continued decline however today is 367 and 558, C-reactive protein checked 69.5 her chest x-ray earlier than today remains there however appears to have slightly progressed 03/27/2020, patient seen eval examined during the rounds labs reviewed medications reviewed care plan discussed, propofol has been discontinued patient because very restless and anxious, we'll restart propofol, patient has been on full ventilator support assist control 24 tidal volume of 450, PEEP is 10, oxygen is 70%, arterial blood gases reviewed when lower the FiO2 to 60% now plan to bring down the FiO2 to 50% and PEEP of 8 next 24 hours, sputum and blood cultures reviewed no growth so far, chest x-ray performed today reviewed signif icant improvement in infiltrates seen bilaterally, patient has a poor urine output throughout the night, 20 mg of Lasix was given put out 600 mL of urine patient continued to be on gentle hydration, remain on cefapime and Vanco, Lovenox Solu-Medrol multivitamin and vitamin C zinc and Lovenox, white cell count is stable 10,500 hemoglobin and hematocrit 7.2 and 24, general surgery has been following patient is considered to get EGD and colonoscopy once stable, arterial blood gas revealed pH of 7.39 pCO2 of 39 pO2 of 124, bicarb 25, liver enzymes continue to come down AST and ALT now is 944/809, hepatitis panel normal and nonreactive 03/26/2020, patient seen eval examined in the ICU care plan discussed with the staff, FiO2 has been down to 60%, patient remains on assist control tidal volume of 450, PEEP is 10, respiratory rate is 24 breathing with the respirator pH has been improved significantly, patient is making adequate urine chest x-ray compared with yesterday's x-ray some improvement have been noted, white cell count is 11,000, hemoglobin 7.9 which is stable, arterial blood gas improved to 7.39, pCO2 of 40, pO2 112, BUN/creatinine is 33/0.96, lactic acid was 5.9 down to 1.3 now, ferritin level noted to be 12,800, AST and ALT are 4014 100 with LDH over 21,500, today LFTs significantly improved AST is down to 2795 and ALT is 1222, pro calcitonin is 0.84, suspect some component of heart failure as well as pneumonia, will get an echocardiogram as well as start patient on broad-spectrum antibiotics with cefepime and Vanco Patient seen and evaluated examined in the emergency department, patient came into the ER from the office of Dr. Aleman due to progressive shortness of breath, patient has acute on chronic hypoxic respiratory failure on 4 L oxygen, also has issues associated with pneumonia presumed to be cold with 19, however, testing was negative, patient used to smoke in the remote past quit about 20-30 years ago due to severity or shortness of breath and hypoxia with saturation of 76% on 100% oxygen and respiratory distress patient was intubated due to poor tolerance on BiPAP, patient Covid testing came back positive, chest x-ray showing diffuse infiltrate she also has been noted to have elevated liver enzymes due to elevated liver enzymes will not start IV REMdesivir, Initial ABG pH is 7.18, pCO2 is 63 pO2 was only 33 Objective - Vital Signs Vital signs: Vital Signs Temp 98.2 F 04/09/20 08:00 Pulse 86 04/09/20 11:00 Resp 25 H 04/09/20 11:00 BP 177/84 04/09/20 11:00 Pulse Ox 90 L 04/09/20 11:00 Intake & Output 04/08/20 04/09/20 04/09/20 18:59 06:59 18:59 Intake Total 1175 1450 375 Output Total 1030 1015 382 Balance 145 435 -7 Weight 84.7 kg Intake: IV 675 1450 375 Fluconazole in NaCl,Iso- 50 Osm 100 mg In Saline 1 50ml.bag @ 50 mls/hr IVPB HS NONA Rx#:[id number] Sodium Chloride 0.9% 1, 675 900 375 000 ml @ 75 mls/hr IV . [id number] NONA Rx#:[id number] Vancomycin 1,750 mg In 500 Sodium Chloride 0.9% 500 ml 500 ml @ 167 mls/hr IVPB Q12H [facility] Rx#: [id number] Intake, IV Titration 500 Amount Vancomycin 1,750 mg In 500 Sodium Chloride 0.9% 500 ml 500 ml @ 167 mls/hr IVPB Q12H [facility] Rx#: [id number] Output: Urine 1030 1015 382 Other: Voiding Method Indwelling Catheter Indwelling Catheter Indwelling Catheter - Exam Patient on 80% oxygen 15 L aerosolized saturation is 90% to 92% - Constitutional General appearance: average body habitus, mild distress, restless intermittently agitated - EENT Ears: bilateral: normal - Neck Carotids: bilateral: upstroke normal Thyroid: bilateral: normal size - Respiratory Respiratory: bilateral: diminished - Cardiovascular Rhythm: regular Heart sounds: normal: S1, S2 - Gastrointestinal General gastrointestinal: normal bowel sounds Patient is relatively more awake and alert compared to yesterday exam - Labs CBC & Chem 7: 04/09/20 03:43 04/09/20 03:43 Labs: Abnormal Lab Results - Last 24 Hours (Table) 04/02/20 04/08/20 04/08/20 Range/Units 04:00 17:51 23:52 WBC (3.8-10.6) k/uL RBC (3.80-5.40) m/uL Hgb (11.4-16.0) gm/dL Hct (34.0-46.0) % RDW (11.5-15.5) % Plt Count (150-450) k/uL Neutrophils # (1.3-7.7) k/uL Lymphocytes # (1.0-4.8) k/uL Sodium (137-145) mmol/L Creatinine (0.52-1.04) mg/dL Glucose (74-99) mg/dL POC Glucose (mg/dL) 170 H 129 H (75-99) mg/dL Calcium (8.4-10.2) mg/dL ALT (4-34) U/L LD Isoenzymes 298 H (120-250) U/L Total Protein (6.3-8.2) g/dL Albumin (3.5-5.0) g/dL 04/09/20 04/09/20 04/09/20 Range/Units 03:43 03:43 06:04 WBC 15.8 H (3.8-10.6) k/uL RBC 3.72 L (3.80-5.40) m/uL Hgb 10.3 L (11.4-16.0) gm/dL Hct 33.0 L (34.0-46.0) % RDW 17.5 H (11.5-15.5) % Plt Count 452 H (150-450) k/uL Neutrophils # 15.2 H (1.3-7.7) k/uL Lymphocytes # 0.2 L (1.0-4.8) k/uL Sodium 136 L (137-145) mmol/L Creatinine 0.42 L (0.52-1.04) mg/dL Glucose 139 H (74-99) mg/dL POC Glucose (mg/dL) 130 H (75-99) mg/dL Calcium 7.8 L (8.4-10.2) mg/dL ALT 47 H (4-34) U/L LD Isoenzymes (120-250) U/L Total Protein 5.5 L (6.3-8.2) g/dL Albumin 2.6 L (3.5-5.0) g/dL Microbiology - Last 24 Hours (Table) 04/07/20 15:40 Blood Culture Gram Stain - Preliminary Blood Blood Culture - Preliminary Group D Enterococcus 04/07/20 15:30 Blood Culture - Preliminary Blood No Growth after 24 hours 04/07/20 15:40 Blood Culture - Final Blood 04/06/20 04:23 Blood Culture Gram Stain - Preliminary Blood Blood Culture - Preliminary Gram Positive Bacilli Isolated Assessment and Plan Assessment: Gram-positive bacteremia found to be group D enterococcus patient is on vancomycin Agitated delirium along with metabolic encephalopathy likely multifactorial including Covid 19 pneumonia, is being in ICU, for intubation long period time sepsis, slowly improving Acute hypoxic respiratory failure Covid19 pneumonia Acute pneumonia bacterial bilateral healthcare associated patient is being monitored off of antibiotics now Thrombocytopenia stable Acute respiratory and metabolic acidosis Acute hepatitis/elevated liver enzymes Acute diastolic heart failure Chronic anemia Fibromyalgia Hypertension hypertensive cardiovascular disease Plan: Continue supportive care, avoid benzodiazepine, continue monitor patient's remains on high flow and also aerosolized oxygen, closely once FiO2 down to nasal cannula will move her out of ICU with that we'll help the delirium as well Recommend to consult infectious disease services for gram-positive bacteremia, continue IV vancomycin Monitor intake and output closely keep on even a negative side Patient remains on partial nonrebreather mask was slowly titrate oxygen down as tolerated Trend liver enzymes Patient is not a candidate for IV REMdesivir due to markedly elevated liver enzymes IV steroids, continued to taper in next 24 hours will bring it down to once a day Further recommendations pending plan of care as per clinical response of patient Continue anticoagulation with Lovenox Time with Patient: Greater than 30
[2020-04-09 12:03] LABS: Glucose,Whole Blood 127 mg/dL (75-99)
[2020-04-09] MEDS: ALPRAZolam 0.25 MG TAB PO PRN (13:55)
[2020-04-09] MEDS: amLODIPine 5 MG TAB PO SCH (13:55)
[2020-04-09] MEDS: hydrALAZINE HCL 50 MG TAB PO SCH ×2 (16:13→21:31)
[2020-04-09 16:55] LABS: Glucose,Whole Blood 184 mg/dL (75-99)
[2020-04-09] MEDS: FLUCONAZOLE IN NACL,ISO-OSM 100 MG in SALINE 1 50ML.BAG IVPB SCH (20:11)
[2020-04-09 20:26] LABS: Glucose,Whole Blood 184 mg/dL (75-99)
--- NOTE | 2020-04-09 22:02 | PN ---
PROGRESS NOTE DATE OF SERVICE: 04/09/2020 REASON FOR FOLLOWUP: Bacteremia. INTERVAL HISTORY: The patient is currently afebrile. The patient is breathing comfortably. She is more awake alert and is insisting on going home. Denies having any chest pain, cough. No abdominal pain or diarrhea. PHYSICAL EXAMINATION: Blood pressure 157/73 with a pulse of 98, temperature 97.7. She is 93% on 50% FiO2. General description is an elderly female lying in bed in no distress. RESPIRATORY SYSTEM: Unlabored breathing with decreased intensity of breath sounds. No wheeze. HEART: S1, S2. Regular rate and rhythm. ABDOMEN: Soft. No tenderness. LABS: Hemoglobin is 10.3, white count 15.8, BUN of 12, creatinine 0.42. Blood culture is now showing a Gram-positive. DIAGNOSTIC IMPRESSION AND PLAN: Patient with elevated white count, multifactorial, in this patient with evidence of a Gram-positive bacteremia; source possibly PICC line, which can be discontinued. To obtain a peripheral IV. This was discussed with the RN. Continue with vancomycin while waiting for the culture to finalize and continue supportive care. MMODL / IJN: [id number] /
[2020-04-09 23:17] LABS: Appearance,Urine Cloudy (Clear); Bacteria,Urine Many /hpf; Bilirubin,Urine Negative (Negative); Blood,Urine Large (Negative); Color,Urine Light Yellow; Glucose,Urine (UA) Negative (Negative); Hyphae Yeast, Urine Rare /hpf; Ketones,Urine Negative (Negative); Leukocyte Esterase,Urine Trace (Negative); Mucus,Urine Rare /hpf; Nitrite,Urine Negative (Negative); PH, Urine 6.5 (5.0-8.0); Protein,Urine Negative (Negative); RBC,Urine 94 /hpf (0-5); Specific Gravity,Urine 1.005 (1.001-1.035); Urobilinogen,Urine <2.0 mg/dL (<2.0); WBC,Urine 15 /hpf (0-5)
[2020-04-10] MEDS ORDERED: VANCOMYCIN TROUGH DUE 1 EACH MISC MISCELLANE ONE (01:00)
[2020-04-10] MEDS: VANCOMYCIN 1,750 MG in SODIUM CHLORIDE 0.9% 500 ML 500 ML IVPB SCH (01:45)
[2020-04-10] MEDS: SODIUM CHLORIDE 0.9% 1,000 ML IV SCH ×2 (01:45→18:47)
[2020-04-10] MEDS: ALPRAZolam 0.25 MG TAB PO PRN ×2 (02:15→21:54)
[2020-04-10] MEDS: HALOPERIDOL LACTATE 5 MG/ML 1 ML VIAL IVP PRN ×2 (04:52→18:41)
[2020-04-10 05:38] LABS: Anisocytosis Slight; Basophils % (A) 0 %; Eosinophils # (A) 0.1 k/uL (0-0.7); Eosinophils % (A) 1 %; HCT 34.5 % (34.0-46.0); HGB 10.5 gm/dL (11.4-16.0); Hypochromasia Marked; Lymphocytes # (A) 0.3 k/uL (1.0-4.8); Lymphocytes % (A) 2 %; MCH 27.3 pg (25.0-35.0); MCHC 30.4 g/dL (31.0-37.0); MCV 89.7 fL (80.0-100.0); Mean Platelet Volume 8.5; Monocytes # (A) 0.4 k/uL (0-1.0); Monocytes % (A) 3 %; Neutrophils # (A) 14.4 k/uL (1.3-7.7); Neutrophils % (A) 95 %; Platelet Count 502 k/uL (150-450); Poikilocytosis Slight; RBC 3.84 m/uL (3.80-5.40); RDW 17.6 % (11.5-15.5); WBC 15.2 k/uL (3.8-10.6)
[2020-04-10 06:16] LABS: ALT 37 U/L (4-34); AST 21 U/L (14-36); African American GFR (CKD) >90 (>60 ml/min/1.73 sqM); Albumin 2.5 g/dL (3.5-5.0); Alkaline Phosphatase 98 U/L (38-126); Anion Gap 5 mmol/L; Blood Urea Nitrogen 12 mg/dL (7-17); Calcium 7.7 mg/dL (8.4-10.2); Carbon Dioxide 24 mmol/L (22-30); Chloride 107 mmol/L (98-107); Glucose 172 mg/dL (74-99); Non-African American GFR(CKD) >90 (>60 ml/min/1.73 sqM); Potassium 3.8 mmol/L (3.5-5.1); Sodium 136 mmol/L (137-145); Total Bilirubin 0.7 mg/dL (0.2-1.3); Total Protein 5.3 g/dL (6.3-8.2)
[2020-04-10] MEDS: INSULIN ASPART (NovoLOG) 100 UNIT/ML VIAL SQ SCH ×4 (07:09→21:13)
[2020-04-10] MEDS: ASCORBIC ACID 500 MG TAB PO SCH ×2 (09:07→21:12)
[2020-04-10] MEDS: ZINC SULFATE 220 MG CAP PO SCH (09:07)
[2020-04-10] MEDS: ENOXAPARIN 40 MG/0.4 ML SYRINGE SQ SCH ×2 (09:07→21:12)
[2020-04-10] MEDS: PANTOPRAZOLE 40 MG/10 ML VIAL IVP SCH ×2 (09:07→21:13)
[2020-04-10] MEDS: hydrALAZINE HCL 50 MG TAB PO SCH (09:07)
[2020-04-10] MEDS: methylPREDNISolone SOD SUCCI 40 MG/ML 1 ML VIAL IV SCH ×2 (09:07→21:13)
[2020-04-10] MEDS: amLODIPine 5 MG TAB PO SCH ×2 (09:08→21:12)
[2020-04-10] MEDS: CHOLECALCIFEROL 400 UNIT TAB PO SCH (09:09)
--- NOTE | 2020-04-10 11:54 | P.PN ---
Subjective Progress Note Date: 04/10/20 Principal diagnosis: Acute hypoxic respiratory failure Covid19 pneumonia Acute respiratory and metabolic acidosis Acute hepatitis/elevated liver enzymes Acute diastolic heart failure and fluid overload Chronic anemia Fibromyalgia Hypertension hypertensive cardiovascular disease April 10 2020 patient seen eval examined sitting upright on the bed breathing comfortably, patient remains on high flow oxygen 15 L 75%, swallow evaluation completed patient able to swallow well will start by mouth blood pressure problem remains an issue we will increase the dose of Norvasc continue oral hydralazine monitor blood pressure closely, absolute reviewed x-ray reviewed continued to show bilateral interstitial infiltrate predominantly in mid part and basis 04/09/2020, patient seen eval examined in the ICU, respiratory status remains marginal but stable, patient is on 80% aerosolized oxygen 15 L, saturation is 90%, more awake and alert, swallowing functions will be reassessed later on today by speech therapist, mental status changes agitated behavior and confusion remains an issue which causes blood pressure to go up as well, 04/08/2020, patient seen eval examined during the rounds labs reviewed medications reviewed care plan discussed, patient remains on BiPAP 15/5 with 70% oxygen, oxygen saturation 94% more awake alert, will try high flow aerosolized oxygen, blood culture positive for gram positive cocci in chain, patient is on IV vancomycin he is following 04/07/2020, patient seen eval examined during the rounds labs reviewed medications reviewed, mental status remains stable slightly improved however, patient intermittently get anxious and agitated, low-grade temperature 90 is present hemodynamically stable though, saturation is 90% to 93% on partial nonrebreather mask, chest x-ray remains stable, white cell count remains elevated, 04/06/2020, patient seen eval examined during the rounds labs reviewed medications reviewed, patient remains off of ventilator, mental status slightly better today compared to last 24-48 hours less agitated awake oriented 1 now, remains on partial nonrebreather mask, saturation is 94%, LAD pressure slightly running on the higher side remains on IV hydralazine, oxygen saturation is 94% to 96%, 04/05/2020, patient seen eval reexamined successfully weaned and extubated yesterday has been on supplemental oxygen 2-4 L, in the last 8-12 hours however decompensation in oxygenation status as well as patient even though awake but remains agitated appears to have a agitated delirium, does require Dilaudid at a regular interval, remains afebrile, oxygen saturation is 99% on 10 L nonrebreather mask, patient cannot take by mouth medicines are listed IV, will try morphine as needed DC Dilaudid, 04/04/2020, patient seen eval examined during the rounds labs reviewed medications reviewed care plan discussed, patient is awake now remains off of propofol since yesterday, does make intermittent eye contact, remains slightly withdrawn however, respiratory status stable, remains on assist control mode rate of 24, tidal volume is 450, +5 of PEEP, 40% oxygen, peak airway pressure stable, chest x-ray shows bilateral diffuse interstitial infiltrate stable ET tube and NG tube in PICC line, white cell count is 13,400, hemoglobin and hematocrit stable 9.4 and 31, arterial blood gases reviewed pH is 7.4 to pCO2 32 pO2 64, BUN/creatinine is 32 and 0.5, patient is reviewed Lovenox remains 2040 mg subcu twice a day on IV furosemide, Solu-Medrol is 60 mg IV every 6 we'll decrease it to every 12 04/03/2020, patient seen eval examined during rounds labs reviewed medications reviewed, care plan discussed, overall hemodynamically he remains stable blood pressure spiked up on hydralazine when necessary, seems to be helping, patient sedated with propofol drip 50 mics, attempts for weaning of protocol has been unsuccessful as patient becomes agitated, attempted Precedex drip has been unsuccessful as well, current vent settings include assist control rate of 24 breathing 24, FiO2 is 40%, PEEP is 5, tidal volume is 450, chest x-ray stable ET tube with bilateral multifocal infiltrate with consolidation consistent with cold with 19 pneumonia not essentially much change from the prior x-ray, ET tube and NG tube was stable, patient is getting tube feed bolus feeding, labs including ABG chemistry reviewed 04/02/2020, patient seen eval examined during the rounds labs reviewed medications reviewed care plan discussed, patient remains sedated with propofol on ventilator for full ventilator support, currently patient is on assist control mode rate Tuesday for breathing 24, tidal volume is 450, 5 of PEEP, 40% oxygen, propofol is 50 mics, chest x-ray from today reviewed continue show patchy bilateral infiltrate without any significant interval change, arterial blood gases revealed pH of 7.43 pCO2 32, C-reactive protein is down to 21, BUN/creatinine is 34/.49, white cell count and hemoglobin remained stable, medications reviewed, she remains on broad-spectrum antibiotic with cephapirin, Lovenox, gentle diuresis with Lasix, blood pressure control with IV hydralazine, patient remains on high-dose IV steroids, discussed with the staff at length, will stop the propofol drip and once patient is awake put on CPAP 5 pressure support of 5 gas after half an hour also check weaning parameters 04/01/2020, patient seen eval examined labs reviewed medications reviewed care plan discussed with the staff at length patient had a sedation holiday today she is arousable and awake follows simple commands with blood pressure went up becomes agitated anxious requiring a reinitiation of propofol drip, ventilator setting remains unchanged, patient is on rate of 24 tidal volume is 450, PEEP is 5, oxygen is 40%, chest x-ray from today reviewed remains overall stable with stable lines and tubes 03/31/2020, patient seen eval examined during the rounds labs reviewed medications reviewed care plan discussed, patient remains on full ventilator support, propofol was changed to Precedex but however patient becomes agitated so back on propofol when setting remains unchanged have been on assist control rate of 24, PEEP is 5, FiO2 is 40%, tidal volume of 450, care plan discussed with the staff at length critical care time 35 minutes 03/30/2020, patient seen eval examined during the rounds labs reviewed medications reviewed, remains sedated with propofol, current vent setting include his control rate of 24 breathing 24 tidal volume is 450, deep is 5 now, FiO2 is 40%, tolerating tube feed very well, chest x-ray reviewed slightly better but stable bilateral infiltrate consistent with atypical pneumonia, patient continued IVs very well with 20 mg Lasix daily, white cell count remained stable, with stable hemoglobin and however decreasing platelet count noted, dear blood gases revealed pH of 7.4 to pCO2 34 pO2 of 62, BUN/creatinine is 36 and 0.62, left he continue show downward trend, inflammatory markers reviewed still elevated but showing a downward trend 03/29/2020, patient seen eval examined during the rounds labs reviewed medications reviewed, care plan discussed with the nursing staff at length, patient has been on assist control rate of the 24 PEEP of 8 400 tidal volume 50% oxygen, ventilator has been adjusted with reduction in PEEP and oxygen, patient's saturation remained stable 91-92%, next step he is to stop propofol and reassess the mental status and if patient remains stable oxygen randolph and hemodynamics can do a CPAP pressure support trial in the meantime we'll continue IV steroids, antibiotics, CBC and ABG reviewed, today's chest x-ray showed bilateral interstitial infiltrate, predominantly at the bases, patient has been on Lasix 20 mg daily diuresing very well, critical care time 35 minutes 03/28/2020, patient seen eval examined during the rounds labs reviewed medications reviewed care plan discussed oxygen has been down to 40% now. The patient is PEEP of 8, otherwise ventilator setting remains stable, patient is scheduled for PICC line later on today, remains on propofol, remains on broad- spectrum antibiotics, labs from today has been reviewed hemoglobin is stable 7.9, d-dimer is 3.24, arterial blood gases stable pH is 7.41 pCO2 35 pO2 96, BUN/creatinine is 51 and 1.05, ferritin level remains more than 26,000, AST ALT continued decline however today is 367 and 558, C-reactive protein checked 69.5 her chest x-ray earlier than today remains there however appears to have slightly progressed 03/27/2020, patient seen eval examined during the rounds labs reviewed medications reviewed care plan discussed, propofol has been discontinued patient because very restless and anxious, we'll restart propofol, patient has been on full ventilator support assist control 24 tidal volume of 450, PEEP is 10, oxygen is 70%, arterial blood gases reviewed when lower the FiO2 to 60% now plan to bring down the FiO2 to 50% and PEEP of 8 next 24 hours, sputum and blood cult ures reviewed no growth so far, chest x-ray performed today reviewed significant improvement in infiltrates seen bilaterally, patient has a poor urine output throughout the night, 20 mg of Lasix was given put out 600 mL of urine patient continued to be on gentle hydration, remain on cefapime and Vanco, Lovenox Solu- Medrol multivitamin and vitamin C zinc and Lovenox, white cell count is stable 10,500 hemoglobin and hematocrit 7.2 and 24, general surgery has been following patient is considered to get EGD and colonoscopy once stable, arterial blood gas revealed pH of 7.39 pCO2 of 39 pO2 of 124, bicarb 25, liver enzymes continue to come down AST and ALT now is 944/809, hepatitis panel normal and nonreactive 03/26/2020, patient seen eval examined in the ICU care plan discussed with the staff, FiO2 has been down to 60%, patient remains on assist control tidal volume of 450, PEEP is 10, respiratory rate is 24 breathing with the respirator pH has been improved significantly, patient is making adequate urine chest x-ray compared with yesterday's x-ray some improvement have been noted, white cell count is 11,000, hemoglobin 7.9 which is stable, arterial blood gas improved to 7.39, pCO2 of 40, pO2 112, BUN/creatinine is 33/0.96, lactic acid was 5.9 down to 1.3 now, ferritin level noted to be 12,800, AST and ALT are 4014 100 with LDH over 21,500, today LFTs significantly improved AST is down to 2795 and ALT is 1222, pro calcitonin is 0.84, suspect some component of heart failure as well as pneumonia, will get an echocardiogram as well as start patient on broad-spectrum antibiotics with cefepime and Vanco Patient seen and evaluated examined in the emergency department, patient came into the ER from the office of Dr. Aleman due to progressive shortness of breath, patient has acute on chronic hypoxic respiratory failure on 4 L oxygen, also has issues associated with pneumonia presumed to be cold with 19, however, testing was negative, patient used to smoke in the remote past quit about 20-30 years ago due to severity or shortness of breath and hypoxia with saturation of 76% on 100% oxygen and respiratory distress patient was intubated due to poor tolerance on BiPAP, patient Covid testing came back positive, chest x-ray showing diffuse infiltrate she also has been noted to have elevated liver enzymes due to elevated liver enzymes will not start IV REMdesivir, Initial ABG pH is 7.18, pCO2 is 63 pO2 was only 33 Objective - Vital Signs Vital signs: Vital Signs Temp 98.3 F 04/10/20 08:00 Pulse 93 04/10/20 11:00 Resp 20 04/10/20 11:00 BP 172/95 04/10/20 11:00 Pulse Ox 90 L 04/10/20 11:00 Intake & Output 04/09/20 04/10/20 04/10/20 18:59 06:59 18:59 Intake Total 1400 1000 225 Output Total 812 885 235 Balance 588 115 -10 Weight 86.1 kg 86.1 kg Intake: IV 1400 950 225 Fluconazole in NaCl,Iso- 50 Osm 100 mg In Saline 1 50ml.bag @ 50 mls/hr IVPB HS NONA Rx#:[id number] Sodium Chloride 0.9% 1, 900 900 225 000 ml @ 75 mls/hr IV . [id number] NONA Rx#:[id number] Vancomycin 1,750 mg In 500 Sodium Chloride 0.9% 500 ml 500 ml @ 167 mls/hr IVPB Q12H NONA Rx#: [id number] Oral 50 Output: Urine 812 885 235 Other: Voiding Method Indwelling Catheter Indwelling Catheter # Bowel Movements 1 - Exam Patient on 80% oxygen 15 L aerosolized saturation is 90% to 92% - Constitutional General appearance: average body habitus, mild distress, restless intermittently agitated - EENT Ears: bilateral: normal - Neck Carotids: bilateral: upstroke normal Thyroid: bilateral: normal size - Respiratory Respiratory: bilateral: diminished - Cardiovascular Rhythm: regular Heart sounds: normal: S1, S2 - Gastrointestinal General gastrointestinal: normal bowel sounds Patient is relatively more awake and alert compared to yesterday exam - Labs CBC & Chem 7: 04/10/20 05:01 04/10/20 05:01 Labs: Abnormal Lab Results - Last 24 Hours (Table) 04/09/20 04/09/20 04/09/20 Range/Units 12:01 16:55 20:22 WBC (3.8-10.6) k/uL Hgb (11.4-16.0) gm/dL MCHC (31.0-37.0) g/dL RDW (11.5-15.5) % Plt Count (150-450) k/uL Neutrophils # (1.3-7.7) k/uL Lymphocytes # (1.0-4.8) k/uL Sodium (137-145) mmol/L Creatinine (0.52-1.04) mg/dL Glucose (74-99) mg/dL POC Glucose (mg/dL) 127 H 184 H 184 H (75-99) mg/dL Calcium (8.4-10.2) mg/dL ALT (4-34) U/L Total Protein (6.3-8.2) g/dL Albumin (3.5-5.0) g/dL Urine Appearance (Clear) Urine Blood (Negative) Ur Leukocyte Esterase (Negative) Urine RBC (0-5) /hpf Urine WBC (0-5) /hpf Urine Bacteria (None) /hpf Urine Mucus (None) /hpf 04/09/20 04/10/20 04/10/20 Range/Units 22:20 05:01 05:01 WBC 15.2 H (3.8-10.6) k/uL Hgb 10.5 L (11.4-16.0) gm/dL MCHC 30.4 L (31.0-37.0) g/dL RDW 17.6 H (11.5-15.5) % Plt Count 502 H (150-450) k/uL Neutrophils # 14.4 H (1.3-7.7) k/uL Lymphocytes # 0.3 L (1.0-4.8) k/uL Sodium 136 L (137-145) mmol/L Creatinine 0.48 L (0.52-1.04) mg/dL Glucose 172 H (74-99) mg/dL POC Glucose (mg/dL) (75-99) mg/dL Calcium 7.7 L (8.4-10.2) mg/dL ALT 37 H (4-34) U/L Total Protein 5.3 L (6.3-8.2) g/dL Albumin 2.5 L (3.5-5.0) g/dL Urine Appearance Cloudy H (Clear) Urine Blood Large H (Negative) Ur Leukocyte Esterase Trace H (Negative) Urine RBC 94 H (0-5) /hpf Urine WBC 15 H (0-5) /hpf Urine Bacteria Many H (None) /hpf Urine Mucus Rare H (None) /hpf Microbiology - Last 24 Hours (Table) 04/09/20 03:43 Blood Culture - Preliminary Blood No Growth after 24 hours 04/09/20 22:20 Urine Culture - Preliminary Urine,Voided 04/07/20 15:40 Blood Culture Gram Stain - Preliminary Blood Blood Culture - Preliminary Enterococcus faecalis 04/09/20 14:50 Catheter Tip Culture - Preliminary Picc Line 04/07/20 15:30 Blood Culture - Preliminary Blood No Growth after 48 hours 04/06/20 04:23 Blood Culture Gram Stain - Final Blood Blood Culture - Final Diphtheroid species Assessment and Plan Assessment: Hypertensive urgency, antihypertensive being adjusted Gram-positive bacteremia found to be group D enterococcus patient is on vancomycin Agitated delirium along with metabolic encephalopathy likely multifactorial including Covid 19 pneumonia, is being in ICU, for intubation long period time sepsis, slowly improving Acute hypoxic respiratory failure Covid19 pneumonia Acute pneumonia bacterial bilateral healthcare associated patient is being monitored off of antibiotics now Thrombocytopenia stable Acute respiratory and metabolic acidosis Acute hepatitis/elevated liver enzymes Acute diastolic heart failure Chronic anemia Fibromyalgia Hypertension hypertensive cardiovascular disease Plan: Continue supportive care, avoid benzodiazepine, continue monitor patient's remains on high flow and also aerosolized oxygen, closely once FiO2 down to nasal cannula will move her out of ICU with that we'll help the delirium as well continue IV vancomycin Monitor intake and output closely keep on even a negative side Patient remains on partial nonrebreather mask was slowly titrate oxygen down as tolerated Trend liver enzymes Patient is not a candidate for IV REMdesivir due to markedly elevated liver enzymes IV steroids, continued to taper in next 24 hours will bring it down to once a day Further recommendations pending plan of care as per clinical response of patient Continue anticoagulation with Lovenox Time with Patient: Greater than 30
[2020-04-10] MEDS: hydrALAZINE HCL 25 MG TAB PO SCH ×2 (16:57→21:13)
[2020-04-10] MEDS: HYDROmorphone 1 MG/ML 1 ML SYRINGE IVP PRN ×2 (18:59→21:54)
[2020-04-10] MEDS: VANCOMYCIN 1,500 MG in SODIUM CHLORIDE 0.9% 250 ML IVPB SCH (19:39)
[2020-04-10] MEDS: FLUCONAZOLE IN NACL,ISO-OSM 100 MG in SALINE 1 50ML.BAG IVPB SCH (22:21)
--- NOTE | 2020-04-10 23:38 | PN ---
PROGRESS NOTE DATE OF SERVICE: 04/10/2020 REASON FOR FOLLOWUP: Bacteremia and possible oropharyngeal candidiasis. INTERVAL HISTORY: The patient is currently afebrile. The patient is slightly more awake and alert. Denies having any chest pain or shortness of breath. Minimal cough. No abdominal pain or diarrhea. PHYSICAL EXAMINATION: Blood pressure 162/89, pulse of 103, temperature 98.7. She is 96% on 50% FiO2. General description is an elderly female lying in bed in no distress. RESPIRATORY SYSTEM: Unlabored breathing with decreased intensity of breath sounds. No wheeze. HEART: S1, S2. Regular rate and rhythm. ABDOMEN: Soft. No tenderness. LABS: Hemoglobin is 10.4, white count 18.2, creatinine 0.48. Blood culture repeat so far negative. DIAGNOSTIC IMPRESSION AND PLAN: Patient with positive blood culture with Enterococcus faecalis, coagulase-negative Staph, possibly PICC line-related, which has been discontinued. Will wait for the catheter tip culture to finalize. Covered with vancomycin and continue supportive care. MMODL / IJN: [id number] /
--- NOTE | 2020-04-11 01:14 | P.PN ---
Subjective This is a pleasant 69 years old female who has prolonged course in the hospital for more than 2 weeks where originally was admitted for worsening respiratory symptoms related to her covid 19 pneumonia, patient has been followed closely by pulmonary service and she remains on Lovenox, Solu-Medrol and IV hydration. However she still on 50 L of oxygen via high flow nasal cannula. Patient had swollen the problem but eventually found is able to swallow today and she was started on oral medication. Her blood pressure was on the high side and Norvasc increased to 5 mg twice daily and hydralazine to 75 mg 3 times a day. Also surgery team are following the case for acute blood loss for suspected GI bleed, they are planning to do EGD and colonoscopy once she is more clinically stable to tolerate such procedures Patient is also followed closely by ID team being covered by antibiotics with Diflucan and IV vancomycin for positive blood culture with enterococcus faecalis with coagulase-negative staph, suspected to be related to IV PICC line which was discontinued went and tip was sent for culture which is still pending If her enzymes were initially elevated on admission and due to her Covid infection and cholelithiasis, currently they are close to normal. Also patient found hemangioma rather than liver mass for GI team evaluation, however will need follow-up as an outpatient CONSTITUTIONAL: No fever, no malaise, no fatigue. HEENT: No recent visual problems or hearing problems. Denied any sore throat. CARDIOVASCULAR: No orthopnea, PND, no palpitations, no syncope. PULMONARY: No chest wall tenderness, no hemoptysis. GASTROINTESTINAL: No diarrhea, no nausea, no vomiting, no abdominal pain. Normoactive bowel sounds. NEUROLOGICAL: No headaches, no weakness, no numbness. Active Medications Generic Name Dose Route Start Last Admin Trade Name Freq PRN Reason Stop Dose Admin Acetaminophen 1,000 mg 03/25/20 12:20 Acetaminophen Tab 500 Mg Tab PO Q6HR PRN Fever>101 Alprazolam 0.25 mg 04/09/20 11:57 04/10/20 21:54 Alprazolam 0.25 Mg Tab PO 0.25 mg QID PRN Administration Anxiety Amlodipine Besylate 5 mg 04/10/20 21:00 04/10/20 21:12 Amlodipine 5 Mg Tab PO 5 mg BID NONA Administration Ascorbic Acid 500 mg 03/25/20 21:00 04/10/20 21:12 Ascorbic Acid 500 Mg Tab PO 500 mg BID NONA Administration Cholecalciferol 400 unit 03/26/20 09:00 04/10/20 09:09 Cholecalciferol 400 Unit Tab PO 400 unit DAILY NONA Administration Enoxaparin Sodium 40 mg 03/29/20 21:00 04/10/20 21:12 Enoxaparin 40 Mg/0.4 Ml Syringe SQ 40 mg BID NONA Administration Haloperidol Lactate 2.5 mg 04/07/20 20:16 04/10/20 18:41 Haloperidol Lactate 5 Mg/Ml 1 Ml Vial IVP 2.5 mg Q8HR PRN Administration Agitation or Acute Psychosis Hydralazine HCl 75 mg 04/10/20 16:00 04/10/20 21:13 Hydralazine Hcl 25 Mg Tab PO 75 mg TID NONA Administration Hydromorphone HCl 1 mg 03/27/20 17:28 04/10/20 21:54 Hydromorphone 1 Mg/Ml 1 Ml Syringe IVP 1 mg Q2H PRN Administration Pain Sodium Chloride 1,000 mls @ 75 mls/hr 03/26/20 05:15 04/10/20 18:47 Saline 0.9% IV 75 mls/hr .[id number] NONA Administration Fluconazole/Sodium Chloride 50 mls @ 50 mls/hr 04/05/20 21:00 04/10/20 22:21 100 mg/ IV Solution IVPB 50 mls/hr HS NONA Administration Vancomycin HCl 1,500 mg/ 250 mls @ 125 mls/hr 04/10/20 20:00 04/10/20 19:39 Sodium Chloride IVPB 125 mls/hr Q12H NONA Administration Insulin Aspart 0 unit 04/09/20 17:45 04/10/20 21:13 Insulin Aspart (Novolog) 100 Unit/Ml Vial SQ 1 unit ACHS NONA Administration Protocol Methylprednisolone Sodium Succinate 40 mg 04/06/20 21:00 04/10/20 21:13 Methylprednisolone Sod Succi 40 Mg/Ml 1 Ml Vial IV 40 mg Q12HR NONA Administration Naloxone HCl 0.2 mg 03/25/20 23:09 Naloxone 0.4 Mg/Ml 1 Ml Vial IV Q2M PRN Opioid Reversal Pantoprazole Sodium 40 mg 03/25/20 21:45 04/10/20 21:13 Pantoprazole 40 Mg/10 Ml Vial IVP 40 mg BID NONA Administration Sodium Chloride 10 ml 03/28/20 15:26 Sodium Chloride 0.9% Flush 10 Ml Syringe IV Q4HR PRN PICC Line Sodium Chloride 10 ml 04/04/20 09:00 04/04/20 08:37 Sodium Chloride 0.9% Flush 10 Ml Syringe IV Not Given WEEKLY NONA Sodium Chloride 20 ml 03/28/20 15:26 Sodium Chloride 0.9% Flush 10 Ml Syringe IV Q4HR PRN PICC Line Zinc Sulfate 220 mg 03/26/20 09:00 04/10/20 09:07 Zinc Sulfate 220 Mg Cap PO 220 mg DAILY NONA Administration Objective - Vital Signs Vital signs: Vital Signs Temp 98.7 F 04/10/20 16:00 Pulse 88 04/10/20 17:00 Resp 24 04/10/20 17:00 BP 177/98 04/10/20 17:00 Pulse Ox 91 L 04/10/20 17:00 Intake & Output 04/09/20 04/10/20 04/10/20 18:59 06:59 18:59 Intake Total 1400 1000 825 Output Total 359 493 4213 Balance 588 115 -270 Weight 86.1 kg 86.1 kg Intake: IV 1400 950 825 Fluconazole in NaCl,Iso- 50 Osm 100 mg In Saline 1 50ml.bag @ 50 mls/hr IVPB HS NONA Rx#:[id number] Sodium Chloride 0.9% 1, 900 900 825 000 ml @ 75 mls/hr IV . [id number] NONA Rx#:[id number] Vancomycin 1,750 mg In 500 Sodium Chloride 0.9% 500 ml 500 ml @ 167 mls/hr IVPB Q12H NONA Rx#: [id number] Oral 50 Output: Urine [phone] Other: Voiding Method Indwelling Catheter Indwelling Catheter Indwelling Catheter # Bowel Movements 1 - Exam GENERAL: The patient is alert and oriented x3, not in any acute distress. Well developed, well nourished. HEENT: Pupils are round and equally reacting to light. EOMI. No scleral icterus. No conjunctival pallor. Normocephalic, atraumatic. No pharyngeal erythema. No thyromegaly. CARDIOVASCULAR: S1 and S2 present. No murmurs, rubs, or gallops. -PULMONARY: Chest is clear to auscultation, bilateral expiratory wheezing . ABDOMEN: Soft, nontender, nondistended, normoactive bowel sounds. No palpable organomegaly. MUSCULOSKELETAL: No joint swelling or deformity. EXTREMITIES: No cyanosis, clubbing, or pedal edema. NEUROLOGICAL: Gross neurological examination did not reveal any focal deficits. SKIN: No rashes. no petechiae. - Labs CBC & Chem 7: 04/10/20 05:01 04/10/20 05:01 Labs: Abnormal Lab Results - Last 24 Hours (Table) 04/09/20 04/09/20 04/10/20 Range/Units 20:22 22:20 05:01 WBC 15.2 H (3.8-10.6) k/uL Hgb 10.5 L (11.4-16.0) gm/dL MCHC 30.4 L (31.0-37.0) g/dL RDW 17.6 H (11.5-15.5) % Plt Count 502 H (150-450) k/uL Neutrophils # 14.4 H (1.3-7.7) k/uL Lymphocytes # 0.3 L (1.0-4.8) k/uL Sodium (137-145) mmol/L Creatinine (0.52-1.04) mg/dL Glucose (74-99) mg/dL POC Glucose (mg/dL) 184 H (75-99) mg/dL Calcium (8.4-10.2) mg/dL ALT (4-34) U/L Total Protein (6.3-8.2) g/dL Albumin (3.5-5.0) g/dL Urine Appearance Cloudy H (Clear) Urine Blood Large H (Negative) Ur Leukocyte Esterase Trace H (Negative) Urine RBC 94 H (0-5) /hpf Urine WBC 15 H (0-5) /hpf Urine Bacteria Many H (None) /hpf Urine Mucus Rare H (None) /hpf 04/10/20 Range/Units 05:01 WBC (3.8-10.6) k/uL Hgb (11.4-16.0) gm/dL MCHC (31.0-37.0) g/dL RDW (11.5-15.5) % Plt Count (150-450) k/uL Neutrophils # (1.3-7.7) k/uL Lymphocytes # (1.0-4.8) k/uL Sodium 136 L (137-145) mmol/L Creatinine 0.48 L (0.52-1.04) mg/dL Glucose 172 H (74-99) mg/dL POC Glucose (mg/dL) (75-99) mg/dL Calcium 7.7 L (8.4-10.2) mg/dL ALT 37 H (4-34) U/L Total Protein 5.3 L (6.3-8.2) g/dL Albumin 2.5 L (3.5-5.0) g/dL Urine Appearance (Clear) Urine Blood (Negative) Ur Leukocyte Esterase (Negative) Urine RBC (0-5) /hpf Urine WBC (0-5) /hpf Urine Bacteria (None) /hpf Urine Mucus (None) /hpf Microbiology - Last 24 Hours (Table) 04/07/20 15:30 Blood Culture - Preliminary Blood No Growth after 72 hours 04/09/20 03:43 Blood Culture - Preliminary Blood No Growth after 24 hours 04/09/20 22:20 Urine Culture - Preliminary Urine,Voided 04/07/20 15:40 Blood Culture Gram Stain - Preliminary Blood Blood Culture - Preliminary Enterococcus faecalis 04/09/20 14:50 Catheter Tip Culture - Preliminary Picc Line Assessment and Plan Assessment: Acute respiratory distress syndrome, Covid 19 pneumonia Acute hypoxic respiratory failure secondary to Covid 19 pneumonia, on high flow nasal cannula Positive blood culture with bacteremia with with Enterococcus faecalis and coagulase negative staph, secondary to PICC line Acute GI bleed, currently hemoglobin is stable Uncontrolled hypertension with urgency Elevated liver enzymes with cholelithiasis, improved and patient is asymptomatic history of Fibromyalgia Plan: This is a pleasant 69 years old female who was presenting with Covid pneumonia, GI bleed and positive blood culture with enterococcus and staph. Continue with antibiotic per ID team, currently she is on Diflucan and vancomycin, continue with Solu-Medrol and Lovenox. Continue with gentle hydration and IV Protonix. Continue with antihypertensive medication with Norvasc and hydralazine and titrate for better blood pressure control. Patient is followed by several consultants including pulmonary/critical care team, surgery team and infectious disease team Labs and medication were reviewed.. Continue same treatment. Continue with symptomatic treatment. Resume home medication. Monitor lytes and vitals. DVT and GI prophylaxis. Further recommendationsas per clinical course of the patient DVT prophylaxis: Subcutaneous Lovenox GI Prophylaxis: Ppi Prognosis is guarded
[2020-04-11 04:36] LABS: Anisocytosis Slight; Basophils % (A) 0 %; Eosinophils # (A) 0.2 k/uL (0-0.7); Eosinophils % (A) 1 %; HCT 33.9 % (34.0-46.0); HGB 9.9 gm/dL (11.4-16.0); Hypochromasia Marked; Lymphocytes # (A) 0.2 k/uL (1.0-4.8); Lymphocytes % (A) 2 %; MCH 26.6 pg (25.0-35.0); MCHC 29.2 g/dL (31.0-37.0); MCV 91.2 fL (80.0-100.0); Mean Platelet Volume 7.1; Monocytes # (A) 0.2 k/uL (0-1.0); Monocytes % (A) 1 %; Neutrophils # (A) 12.3 k/uL (1.3-7.7); Neutrophils % (A) 95 %; Platelet Count 361 k/uL (150-450); Poikilocytosis Slight; RBC 3.72 m/uL (3.80-5.40); RDW 17.8 % (11.5-15.5); WBC 12.9 k/uL (3.8-10.6)
[2020-04-11 04:54] LABS: African American GFR (CKD) >90 (>60 ml/min/1.73 sqM); Anion Gap 1 mmol/L; Blood Urea Nitrogen 11 mg/dL (7-17); Calcium 7.7 mg/dL (8.4-10.2); Carbon Dioxide 25 mmol/L (22-30); Chloride 108 mmol/L (98-107); Glucose 149 mg/dL (74-99); Non-African American GFR(CKD) >90 (>60 ml/min/1.73 sqM); Sodium 134 mmol/L (137-145)
[2020-04-11] MEDS: ALPRAZolam 0.25 MG TAB PO PRN ×3 (05:15→21:20)
[2020-04-11] MEDS: INSULIN ASPART (NovoLOG) 100 UNIT/ML VIAL SQ SCH ×4 (07:25→20:46)
[2020-04-11] MEDS: SODIUM CHLORIDE 0.9% 1,000 ML IV SCH ×2 (08:00→21:21)
[2020-04-11] MEDS: ENOXAPARIN 40 MG/0.4 ML SYRINGE SQ SCH ×2 (08:48→21:21)
[2020-04-11] MEDS: PANTOPRAZOLE 40 MG/10 ML VIAL IVP SCH ×2 (08:48→21:21)
[2020-04-11] MEDS: methylPREDNISolone SOD SUCCI 40 MG/ML 1 ML VIAL IV SCH ×2 (08:49→21:21)
[2020-04-11] MEDS: CHOLECALCIFEROL 400 UNIT TAB PO SCH (08:49)
[2020-04-11] MEDS: ASCORBIC ACID 500 MG TAB PO SCH ×2 (08:49→21:20)
[2020-04-11] MEDS: ZINC SULFATE 220 MG CAP PO SCH (08:49)
[2020-04-11] MEDS: amLODIPine 5 MG TAB PO SCH ×2 (08:49→21:20)
[2020-04-11] MEDS: hydrALAZINE HCL 25 MG TAB PO SCH ×3 (08:49→21:20)
[2020-04-11] MEDS: VANCOMYCIN 1,500 MG in SODIUM CHLORIDE 0.9% 250 ML IVPB SCH ×2 (08:50→21:20)
[2020-04-11] MEDS: FLUCONAZOLE IN NACL,ISO-OSM 100 MG in SALINE 1 50ML.BAG IVPB SCH (21:20)
--- NOTE | 2020-04-11 21:48 | PN ---
PROGRESS NOTE DATE OF SERVICE: 04/11/2020 REASON FOR FOLLOWUP: UTI and bacteremia. INTERVAL HISTORY: Patient is currently afebrile. The patient is hemodynamically stable. She is breathing comfortably. Denies having any chest pain. Occasional cough. No abdominal pain. No diarrhea. PHYSICAL EXAMINATION: Blood pressure 155/77, pulse 89. Temperature is 99.2. She is 94% on high-flow oxygen. General description is an elderly female lying in bed in no distress. Respiratory system: Unlabored breathing, clear to auscultation anteriorly. Heart S1, S2. Regular rate and rhythm. ABDOMEN: Soft, no tenderness. LABORATORY STUDIES: Hemoglobin 9.1, white count 12.9, BUN of 11, creatinine 0.45. DIAGNOSTIC IMPRESSION AND PLAN: Patient with Enterococcus faecalis bacteremia with concern of possible line related versus UTI and urine showing the same pathogen. We will obtain ultrasound of the kidney to make sure no evidence of any obstruction normally. Continue with vancomycin because of PENICILLIN allergy and continue with supportive care. MMODL / IJN: [id number] /
--- NOTE | 2020-04-12 00:33 | P.PN ---
Subjective This is a pleasant 69 years old female who has prolonged course in the hospital for more than 2 weeks where originally was admitted for worsening respiratory symptoms related to her covid 19 pneumonia, patient has been followed closely by pulmonary service and she remains on Lovenox, Solu-Medrol and IV hydration. However she still on 50 L of oxygen via high flow nasal cannula. Patient had swollen the problem but eventually found is able to swallow today and she was started on oral medication. Her blood pressure was on the high side and Norvasc increased to 5 mg twice daily and hydralazine to 75 mg 3 times a day. Also surgery team are following the case for acute blood loss for suspected GI bleed, they are planning to do EGD and colonoscopy once she is more clinically stable to tolerate such procedures Patient is also followed closely by ID team being covered by antibiotics with Diflucan and IV vancomycin for positive blood culture with enterococcus faecalis with coagulase-negative staph, suspected to be related to IV PICC line which was discontinued went and tip was sent for culture which is still pending If her enzymes were initially elevated on admission and due to her Covid infection and cholelithiasis, currently they are close to normal. Also patient found hemangioma rather than liver mass for GI team evaluation, however will need follow-up as an outpatient 04/11/20 pt remains in the ICU very tired and can not provide much information because of her general lethargy , she is awake and alert, in moderated resp distress. she is still on 50 L of oxygen and saturation is 88-92%. Urine culture is growing enterococcus, similar to blood culture. Possible UTI. Patient remains on of vancomycin as per ID team WBC is slightly down at 12 K. CONSTITUTIONAL: No fever, no malaise, no fatigue. HEENT: No recent visual problems or hearing problems. Denied any sore throat. CARDIOVASCULAR: No orthopnea, PND, no palpitations, no syncope. PULMONARY: No chest wall tenderness, no hemoptysis. GASTROINTESTINAL: No diarrhea, no nausea, no vomiting, no abdominal pain. Normoactive bowel sounds. NEUROLOGICAL: No headaches, no weakness, no numbness. Active Medications Generic Name Dose Route Start Last Admin Trade Name Freq PRN Reason Stop Dose Admin Acetaminophen 1,000 mg 03/25/20 12:20 Acetaminophen Tab 500 Mg Tab PO Q6HR PRN Fever>101 Alprazolam 0.25 mg 04/09/20 11:57 04/11/20 21:20 Alprazolam 0.25 Mg Tab PO 0.25 mg QID PRN Administration Anxiety Amlodipine Besylate 5 mg 04/10/20 21:00 04/11/20 21:20 Amlodipine 5 Mg Tab PO 5 mg BID NONA Administration Ascorbic Acid 500 mg 03/25/20 21:00 04/11/20 21:20 Ascorbic Acid 500 Mg Tab PO 500 mg BID NONA Administration Cholecalciferol 400 unit 03/26/20 09:00 04/11/20 08:49 Cholecalciferol 400 Unit Tab PO 400 unit DAILY NONA Administration Enoxaparin Sodium 40 mg 03/29/20 21:00 04/11/20 21:21 Enoxaparin 40 Mg/0.4 Ml Syringe SQ 40 mg BID NONA Administration Haloperidol Lactate 2.5 mg 04/07/20 20:16 04/10/20 18:41 Haloperidol Lactate 5 Mg/Ml 1 Ml Vial IVP 2.5 mg Q8HR PRN Administration Agitation or Acute Psychosis Hydralazine HCl 75 mg 04/10/20 16:00 04/11/20 21:20 Hydralazine Hcl 25 Mg Tab PO 75 mg TID NONA Administration Hydromorphone HCl 1 mg 04/11/20 18:31 Hydromorphone 1 Mg/Ml 1 Ml Syringe IVP Q2H PRN Pain Sodium Chloride 1,000 mls @ 75 mls/hr 03/26/20 05:15 04/11/20 21:21 Saline 0.9% IV 75 mls/hr .[id number] NONA Administration Fluconazole/Sodium Chloride 50 mls @ 50 mls/hr 04/05/20 21:00 04/11/20 21:20 100 mg/ IV Solution IVPB 50 mls/hr HS NONA Administration Vancomycin HCl 1,500 mg/ 250 mls @ 125 mls/hr 04/10/20 20:00 04/11/20 21:20 Sodium Chloride IVPB 125 mls/hr Q12H NONA Administration Insulin Aspart 0 unit 04/09/20 17:45 04/11/20 20:46 Insulin Aspart (Novolog) 100 Unit/Ml Vial SQ Not Given ACHS NONA Protocol Methylprednisolone Sodium Succinate 40 mg 04/06/20 21:00 04/11/20 21:21 Methylprednisolone Sod Succi 40 Mg/Ml 1 Ml Vial IV 40 mg Q12HR NONA Administration Miscellaneous Information 1 each 04/12/20 07:00 Vancomycin Trough Due 1 Each Misc MISCELLANE 04/12/20 07:01 ONCE ONE Naloxone HCl 0.2 mg 03/25/20 23:09 Naloxone 0.4 Mg/Ml 1 Ml Vial IV Q2M PRN Opioid Reversal Pantoprazole Sodium 40 mg 03/25/20 21:45 04/11/20 21:21 Pantoprazole 40 Mg/10 Ml Vial IVP 40 mg BID NONA Administration Sodium Chloride 10 ml 03/28/20 15:26 Sodium Chloride 0.9% Flush 10 Ml Syringe IV Q4HR PRN PICC Line Sodium Chloride 10 ml 04/04/20 09:00 04/11/20 08:49 Sodium Chloride 0.9% Flush 10 Ml Syringe IV 10 ml WEEKLY NONA Administration Sodium Chloride 20 ml 03/28/20 15:26 Sodium Chloride 0.9% Flush 10 Ml Syringe IV Q4HR PRN PICC Line Zinc Sulfate 220 mg 03/26/20 09:00 04/11/20 08:49 Zinc Sulfate 220 Mg Cap PO 220 mg DAILY NONA Administration Objective - Vital Signs Vital signs: Vital Signs Temp 99.2 F 04/11/20 16:00 Pulse 89 04/11/20 16:00 Resp 25 H 04/11/20 16:00 BP 151/76 04/11/20 16:00 Pulse Ox 94 L 04/11/20 16:00 Intake & Output 04/10/20 04/11/20 04/11/20 18:59 06:59 18:59 Intake Total 158 009 3815 Output Total 1520 795 952 Balance -545 80 98 Weight 86.1 kg 85 kg Intake: IV 975 825 600 Sodium Chloride 0.9% 1, 975 825 600 000 ml @ 75 mls/hr IV . [id number] NONA Rx#:[id number] Intake, IV Titration 250 Amount Vancomycin 1,500 mg In 250 Sodium Chloride 0.9% 250 ml @ 125 mls/hr IVPB Q12H NONA Rx#:[id number] Oral 50 200 Output: Urine 1520 795 952 Other: Voiding Method Indwelling Catheter Indwelling Catheter Indwelling Catheter - Exam GENERAL: The patient is alert and oriented x3, not in any acute distress. Well developed, well nourished. HEENT: Pupils are round and equally reacting to light. EOMI. No scleral icterus. No conjunctival pallor. Normocephalic, atraumatic. No pharyngeal erythema. No thyromegaly. CARDIOVASCULAR: S1 and S2 present. No murmurs, rubs, or gallops. -PULMONARY: Chest is clear to auscultation, bilateral expiratory wheezing . ABDOMEN: Soft, nontender, nondistended, normoactive bowel sounds. No palpable organomegaly. MUSCULOSKELETAL: No joint swelling or deformity. EXTREMITIES: No cyanosis, clubbing, or pedal edema. NEUROLOGICAL: Gross neurological examination did not reveal any focal deficits. SKIN: No rashes. no petechiae. - Labs CBC & Chem 7: 04/11/20 04:21 04/11/20 04:21 Labs: Abnormal Lab Results - Last 24 Hours (Table) 04/11/20 04/11/20 Range/Units 04:21 04:21 WBC 12.9 H (3.8-10.6) k/uL RBC 3.72 L (3.80-5.40) m/uL Hgb 9.9 L (11.4-16.0) gm/dL Hct 33.9 L (34.0-46.0) % MCHC 29.2 L (31.0-37.0) g/dL RDW 17.8 H (11.5-15.5) % Neutrophils # 12.3 H (1.3-7.7) k/uL Lymphocytes # 0.2 L (1.0-4.8) k/uL Sodium 134 L (137-145) mmol/L Chloride 108 H (98-107) mmol/L Creatinine 0.45 L (0.52-1.04) mg/dL Glucose 149 H (74-99) mg/dL Calcium 7.7 L (8.4-10.2) mg/dL Microbiology - Last 24 Hours (Table) 04/09/20 03:43 Blood Culture - Preliminary Blood No Growth after 48 hours 04/09/20 22:20 Urine Culture - Preliminary Urine,Voided Group D Enterococcus 04/07/20 15:40 Blood Culture Gram Stain - Final Blood Blood Culture - Final Enterococcus faecalis Coagulase Negative Staph 04/09/20 14:50 Catheter Tip Culture - Preliminary Picc Line 04/07/20 15:30 Blood Culture - Preliminary Blood No Growth after 72 hours Assessment and Plan Assessment: Acute respiratory distress syndrome, Covid 19 pneumonia Acute hypoxic respiratory failure secondary to Covid 19 pneumonia, on high flow nasal cannula Positive blood culture with bacteremia with with Enterococcus faecalis and coagulase negative staph, secondary to PICC line Acute GI bleed, currently hemoglobin is stable Uncontrolled hypertension with urgency Elevated liver enzymes with cholelithiasis, improved and patient is asymptomatic history of Fibromyalgia Plan: This is a pleasant 69 years old female who was presenting with Covid pneumonia, GI bleed and positive blood culture with enterococcus and staph. Continue with antibiotic per ID team, currently she is on Diflucan and vancomycin, continue with Solu-Medrol and Lovenox. Continue with gentle hydration and IV Protonix. Continue with antihypertensive medication with Norvasc and hydralazine and titrate for better blood pressure control. Patient is followed by several consultants including pulmonary/critical care team, surgery team and infectious disease team Labs and medication were reviewed.. Continue same treatment. Continue with symptomatic treatment. Resume home medication. Monitor lytes and vitals. DVT and GI prophylaxis. Further recommendationsas per clinical course of the patient DVT prophylaxis: Subcutaneous Lovenox GI Prophylaxis: Ppi Prognosis is guarded
[2020-04-12 06:10] LABS: Anisocytosis Slight; Basophils % (A) 0 %; Eosinophils # (A) 0.1 k/uL (0-0.7); Eosinophils % (A) 1 %; HCT 35.2 % (34.0-46.0); HGB 11.2 gm/dL (11.4-16.0); Hypochromasia Marked; Lymphocytes # (A) 0.2 k/uL (1.0-4.8); Lymphocytes % (A) 2 %; MCH 28.2 pg (25.0-35.0); MCHC 31.9 g/dL (31.0-37.0); MCV 88.3 fL (80.0-100.0); Mean Platelet Volume 8.1; Monocytes # (A) 0.2 k/uL (0-1.0); Monocytes % (A) 1 %; Neutrophils # (A) 11.6 k/uL (1.3-7.7); Neutrophils % (A) 96 %; Platelet Count 323 k/uL (150-450); Poikilocytosis Slight; RBC 3.98 m/uL (3.80-5.40); RDW 17.6 % (11.5-15.5); WBC 12.1 k/uL (3.8-10.6)
[2020-04-12 06:26] LABS: African American GFR (CKD) >90 (>60 ml/min/1.73 sqM); Anion Gap 2 mmol/L; Blood Urea Nitrogen 11 mg/dL (7-17); Calcium 7.9 mg/dL (8.4-10.2); Carbon Dioxide 28 mmol/L (22-30); Chloride 106 mmol/L (98-107); Glucose 169 mg/dL (74-99); Non-African American GFR(CKD) >90 (>60 ml/min/1.73 sqM); Potassium 3.8 mmol/L (3.5-5.1); Sodium 136 mmol/L (137-145)
[2020-04-12] MEDS ORDERED: POTASSIUM BICARBONATE/CIT AC 20 MEQ TABLET.EFF NG-TUBE SCH (07:00)
[2020-04-12] MEDS ORDERED: VANCOMYCIN TROUGH DUE 1 EACH MISC MISCELLANE ONE (07:00)
[2020-04-12] MEDS: VANCOMYCIN 1,500 MG in SODIUM CHLORIDE 0.9% 250 ML IVPB SCH (08:07)
[2020-04-12] MEDS: INSULIN ASPART (NovoLOG) 100 UNIT/ML VIAL SQ SCH ×4 (08:07→21:01)
[2020-04-12] MEDS: amLODIPine 5 MG TAB PO SCH ×2 (08:51→21:01)
[2020-04-12] MEDS: ZINC SULFATE 220 MG CAP PO SCH (08:51)
[2020-04-12] MEDS: hydrALAZINE HCL 25 MG TAB PO SCH ×3 (08:51→21:00)
[2020-04-12] MEDS: ASCORBIC ACID 500 MG TAB PO SCH ×2 (08:51→21:01)
[2020-04-12] MEDS: methylPREDNISolone SOD SUCCI 40 MG/ML 1 ML VIAL IV SCH ×2 (08:51→21:01)
[2020-04-12] MEDS: CHOLECALCIFEROL 400 UNIT TAB PO SCH (08:51)
[2020-04-12] MEDS: ENOXAPARIN 40 MG/0.4 ML SYRINGE SQ SCH ×2 (08:51→21:00)
[2020-04-12] MEDS: PANTOPRAZOLE 40 MG/10 ML VIAL IVP SCH ×2 (08:52→21:01)
--- NOTE | 2020-04-12 10:28 | XR ---
EXAMINATION TYPE: XR chest 1V portable DATE OF EXAM: 04/10/2020 Comparison: 04/09/2020 Clinical History: 69-year-old female ICU Management Findings: Heart borderline enlarged. Bilateral patchy and confluent airspace opacities. Suspect small left effu nasrin. Right PICC line seems to have been removed in the interval. Impression: Diffuse bilateral airspace disease shows some improvement from prior. Possible small left effusion.
[2020-04-12] MEDS: SODIUM CHLORIDE 0.9% 1,000 ML IV SCH (11:10)
[2020-04-12 11:17] LABS: Appearance,Urine Clear (Clear); Bacteria,Urine Rare /hpf; Bilirubin,Urine Negative (Negative); Blood,Urine Negative (Negative); Color,Urine Light Yellow; Glucose,Urine (UA) Negative (Negative); Ketones,Urine Negative (Negative); Leukocyte Esterase,Urine Trace (Negative); Mucus,Urine Rare /hpf; Nitrite,Urine Negative (Negative); PH, Urine 7.5 (5.0-8.0); Protein,Urine Negative (Negative); RBC,Urine 2 /hpf (0-5); Specific Gravity,Urine 1.012 (1.001-1.035); Squamous Epithelial Cell,Urine <1 /hpf (0-4); Urobilinogen,Urine <2.0 mg/dL (<2.0); WBC,Urine 6 /hpf (0-5)
--- NOTE | 2020-04-12 17:42 | PN ---
PROGRESS NOTE DATE OF SERVICE: 04/12/2020 REASON FOR FOLLOWUP: Bacteremia and UTI. INTERVAL HISTORY: The patient is currently afebrile. Patient is breathing comfortably. The patient denies having any chest pain, no shortness of breath, cough, no abdominal pain or diarrhea. PHYSICAL EXAMINATION: Blood pressure 153/81 with a pulse of 81, temperature 98.7. She is 92% on 50% FiO2. General description is an elderly female lying in bed in no distress. Respiratory system: Unlabored breathing. Clear to auscultation anteriorly. Heart S1, S2. Regular rate and rhythm. Abdomen soft. No tenderness. LABS: Hemoglobin 11.4, white count 12.1, creatinine 0.50. The patient urine did show VRE and Kristi albicans. Subsequently, Quick catheter has been changed and repeat UA after change of Quick is not positive. DIAGNOSTIC IMPRESSION AND PLAN: 1. Patient with enterococcus faecalis bacteremia for which the patient is currently covered with vancomycin to continue. 2. Positive culture with VRE, possibly Quick colonization as repeat UA is negative after change of Quick. We will continue vancomycin and fluconazole and monitor clinical course closely. MMODL / IJN: [id number] /
[2020-04-12] MEDS: FLUCONAZOLE IN NACL,ISO-OSM 100 MG in SALINE 1 50ML.BAG IVPB SCH (21:00)
[2020-04-12] MEDS: ALPRAZolam 0.25 MG TAB PO PRN (21:00)
--- NOTE | 2020-04-12 22:52 | P.PN ---
Subjective This is a pleasant 69 years old female who has prolonged course in the hospital for more than 2 weeks where originally was admitted for worsening respiratory symptoms related to her covid 19 pneumonia, patient has been followed closely by pulmonary service and she remains on Lovenox, Solu-Medrol and IV hydration. However she still on 50 L of oxygen via high flow nasal cannula. Patient had swollen the problem but eventually found is able to swallow today and she was started on oral medication. Her blood pressure was on the high side and Norvasc increased to 5 mg twice daily and hydralazine to 75 mg 3 times a day. Also surgery team are following the case for acute blood loss for suspected GI bleed, they are planning to do EGD and colonoscopy once she is more clinically stable to tolerate such procedures Patient is also followed closely by ID team being covered by antibiotics with Diflucan and IV vancomycin for positive blood culture with enterococcus faecalis with coagulase-negative staph, suspected to be related to IV PICC line which was discontinued went and tip was sent for culture which is still pending If her enzymes were initially elevated on admission and due to her Covid infection and cholelithiasis, currently they are close to normal. Also patient found hemangioma rather than liver mass for GI team evaluation, however will need follow-up as an outpatient 04/11/20 pt remains in the ICU very tired and can not provide much information because of her general lethargy , she is awake and alert, in moderated resp distress. she is still on 50 L of oxygen and saturation is 88-92%. Urine culture is growing enterococcus, similar to blood culture. Possible UTI. Patient remains on of vancomycin as per ID team WBC is slightly down at 12 K. 04/12/2020 Patient still feels tired, she is awake and follows commands however she cannot talk a lot because of her respiratory distress although is still looks somewhat better than yesterday. Also CXR: diffuse bilateral airspace disease shows some improvement from prior.possible small left effussion she still saturates 92-93% on 50 Liter/min of oxygen. decrease iv fluid to 50 ml/hr she remains on iv vancomycin and fluconazole, with lovenox 40 mg BID and protonix 40 mg BID and solumedrol 40 mg BID CONSTITUTIONAL: No fever, no malaise, no fatigue. HEENT: No recent visual problems or hearing problems. Denied any sore throat. CARDIOVASCULAR: No orthopnea, PND, no palpitations, no syncope. PULMONARY: No chest wall tenderness, no hemoptysis. GASTROINTESTINAL: No diarrhea, no nausea, no vomiting, no abdominal pain. Normoactive bowel sounds. NEUROLOGICAL: No headaches, no weakness, no numbness. Active Medications Generic Name Dose Route Start Last Admin Trade Name Freq PRN Reason Stop Dose Admin Acetaminophen 1,000 mg 03/25/20 12:20 Acetaminophen Tab 500 Mg Tab PO Q6HR PRN Fever>101 Alprazolam 0.25 mg 04/09/20 11:57 04/12/20 21:00 Alprazolam 0.25 Mg Tab PO 0.25 mg QID PRN Administration Anxiety Amlodipine Besylate 5 mg 04/10/20 21:00 04/12/20 21:01 Amlodipine 5 Mg Tab PO 5 mg BID NONA Administration Ascorbic Acid 500 mg 03/25/20 21:00 04/12/20 21:01 Ascorbic Acid 500 Mg Tab PO 500 mg BID NONA Administration Cholecalciferol 400 unit 03/26/20 09:00 04/12/20 08:51 Cholecalciferol 400 Unit Tab PO 400 unit DAILY NONA Administration Enoxaparin Sodium 40 mg 03/29/20 21:00 04/12/20 21:00 Enoxaparin 40 Mg/0.4 Ml Syringe SQ 40 mg BID NONA Administration Haloperidol Lactate 2.5 mg 04/07/20 20:16 04/10/20 18:41 Haloperidol Lactate 5 Mg/Ml 1 Ml Vial IVP 2.5 mg Q8HR PRN Administration Agitation or Acute Psychosis Hydralazine HCl 75 mg 04/10/20 16:00 04/12/20 21:00 Hydralazine Hcl 25 Mg Tab PO 75 mg TID NONA Administration Hydromorphone HCl 1 mg 04/11/20 18:31 Hydromorphone 1 Mg/Ml 1 Ml Syringe IVP Q2H PRN Pain Sodium Chloride 1,000 mls @ 50 mls/hr 03/26/20 05:15 04/12/20 11:10 Saline 0.9% IV Not Given .Q20H NONA Fluconazole/Sodium Chloride 50 mls @ 50 mls/hr 04/05/20 21:00 04/12/20 21:00 100 mg/ IV Solution IVPB 50 mls/hr HS NONA Administration Vancomycin HCl 1,500 mg/ 250 mls @ 125 mls/hr 04/13/20 00:00 Sodium Chloride IVPB Q16H NONA Insulin Aspart 0 unit 04/09/20 17:45 04/12/20 21:01 Insulin Aspart (Novolog) 100 Unit/Ml Vial SQ Not Given ACHS [facility] Protocol Methylprednisolone Sodium Succinate 40 mg 04/06/20 21:00 04/12/20 21:01 Methylprednisolone Sod Succi 40 Mg/Ml 1 Ml Vial IV 40 mg Q12HR NONA Administration Naloxone HCl 0.2 mg 03/25/20 23:09 Naloxone 0.4 Mg/Ml 1 Ml Vial IV Q2M PRN Opioid Reversal Pantoprazole Sodium 40 mg 03/25/20 21:45 04/12/20 21:01 Pantoprazole 40 Mg/10 Ml Vial IVP 40 mg BID NONA Administration Sodium Chloride 10 ml 03/28/20 15:26 Sodium Chloride 0.9% Flush 10 Ml Syringe IV Q4HR PRN PICC Line Sodium Chloride 10 ml 04/04/20 09:00 04/11/20 08:49 Sodium Chloride 0.9% Flush 10 Ml Syringe IV 10 ml WEEKLY NONA Administration Sodium Chloride 20 ml 03/28/20 15:26 Sodium Chloride 0.9% Flush 10 Ml Syringe IV Q4HR PRN PICC Line Zinc Sulfate 220 mg 03/26/20 09:00 04/12/20 08:51 Zinc Sulfate 220 Mg Cap PO 220 mg DAILY NONA Administration Objective - Vital Signs Vital signs: Vital Signs Temp 99.1 F 04/12/20 08:00 Pulse 78 04/12/20 11:00 Resp 24 04/12/20 11:00 BP 161/83 04/12/20 11:00 Pulse Ox 90 L 04/12/20 11:00 Intake & Output 04/11/20 04/12/20 04/12/20 18:59 06:59 18:59 Intake Total 1300 1200 475 Output Total 1227 1300 670 Balance 73 -100 -195 Weight 85 kg Intake: IV 750 1200 125 Fluconazole in NaCl,Iso- 50 Osm 100 mg In Saline 1 50ml.bag @ 50 mls/hr IVPB HS NONA Rx#:[id number] Sodium Chloride 0.9% 1, 750 900 125 000 ml @ 50 mls/hr IV . Q20H NONA Rx#:[id number] Vancomycin 1,500 mg In 250 Sodium Chloride 0.9% 250 ml @ 125 mls/hr IVPB Q16H NONA Rx#:[id number] Intake, IV Titration 250 250 Amount Vancomycin 1,500 mg In 250 Sodium Chloride 0.9% 250 ml @ 125 mls/hr IVPB Q12H [facility] Rx#:[id number] Vancomycin 1,500 mg In 250 Sodium Chloride 0.9% 250 ml @ 125 mls/hr IVPB Q16H NONA Rx#:[id number] Oral 300 100 Output: Urine 1227 1300 670 Other: Voiding Method Indwelling Catheter Indwelling Catheter Indwelling Catheter - Exam GENERAL: The patient is alert and oriented x3, not in any acute distress. Well developed, well nourished. HEENT: Pupils are round and equally reacting to light. EOMI. No scleral icterus. No conjunctival pallor. Normocephalic, atraumatic. No pharyngeal erythema. No thyromegaly. CARDIOVASCULAR: S1 and S2 present. No murmurs, rubs, or gallops. -PULMONARY: Chest is clear to auscultation, bilateral expiratory wheezing . ABDOMEN: Soft, nontender, nondistended, normoactive bowel sounds. No palpable organomegaly. MUSCULOSKELETAL: No joint swelling or deformity. EXTREMITIES: No cyanosis, clubbing, or pedal edema. NEUROLOGICAL: Gross neurological examination did not reveal any focal deficits. SKIN: No rashes. no petechiae. - Labs CBC & Chem 7: 04/12/20 05:50 04/12/20 05:50 Labs: Abnormal Lab Results - Last 24 Hours (Table) 04/12/20 04/12/20 04/12/20 Range/Units 05:50 05:50 11:00 WBC 12.1 H (3.8-10.6) k/uL Hgb 11.2 L (11.4-16.0) gm/dL RDW 17.6 H (11.5-15.5) % Neutrophils # 11.6 H (1.3-7.7) k/uL Lymphocytes # 0.2 L (1.0-4.8) k/uL Sodium 136 L (137-145) mmol/L Creatinine 0.50 L (0.52-1.04) mg/dL Glucose 169 H (74-99) mg/dL Calcium 7.9 L (8.4-10.2) mg/dL Ur Leukocyte Esterase Trace H (Negative) Urine WBC 6 H (0-5) /hpf Urine Bacteria Rare H (None) /hpf Urine Mucus Rare H (None) /hpf Microbiology - Last 24 Hours (Table) 04/09/20 03:43 Blood Culture - Preliminary Blood No Growth after 72 hours 04/09/20 22:20 Urine Culture - Final Urine,Voided Enterococcus faecium VRE Kristi albicans 04/09/20 14:50 Catheter Tip Culture - Final Picc Line 04/07/20 15:30 Blood Culture - Preliminary Blood No Growth after 96 hours Assessment and Plan Assessment: Acute respiratory distress syndrome, Covid 19 pneumonia Acute hypoxic respiratory failure secondary to Covid 19 pneumonia, on high flow nasal cannula Positive blood culture with bacteremia with with Enterococcus faecalis and coagulase negative staph, secondary to PICC line Acute GI bleed, currently hemoglobin is stable Uncontrolled hypertension with urgency Elevated liver enzymes with cholelithiasis, improved and patient is asymptomatic history of Fibromyalgia Plan: This is a pleasant 69 years old female who was presenting with Covid pneumonia, GI bleed and positive blood culture with enterococcus and staph. Continue with antibiotic per ID team, currently she is on Diflucan and vancomycin, continue with Solu-Medrol and Lovenox. Continue with gentle hydration and IV Protonix. Continue with antihypertensive medication with Norvasc and hydralazine and titrate for better blood pressure control. Patient is followed by several consultants including pulmonary/critical care team, surgery team and infectious disease team Labs and medication were reviewed.. Continue same treatment. Continue with symptomatic treatment. Resume home medication. Monitor lytes and vitals. DVT and GI prophylaxis. Further recommendationsas per clinical course of the patient DVT prophylaxis: Subcutaneous Lovenox GI Prophylaxis: Ppi Prognosis is guarded
[2020-04-13] MEDS: VANCOMYCIN 1,500 MG in SODIUM CHLORIDE 0.9% 250 ML IVPB SCH ×2 (00:40→15:46)
[2020-04-13 04:08] LABS: Anisocytosis Slight; Basophils % (A) 0 %; Eosinophils # (A) 0.1 k/uL (0-0.7); Eosinophils % (A) 1 %; HCT 35.5 % (34.0-46.0); HGB 11.3 gm/dL (11.4-16.0); Hypochromasia Marked; Lymphocytes # (A) 0.2 k/uL (1.0-4.8); Lymphocytes % (A) 2 %; MCH 27.9 pg (25.0-35.0); MCHC 31.7 g/dL (31.0-37.0); MCV 87.9 fL (80.0-100.0); Monocytes # (A) 0.1 k/uL (0-1.0); Monocytes % (A) 1 %; Neutrophils # (A) 9.3 k/uL (1.3-7.7); Neutrophils % (A) 95 %; Platelet Count 286 k/uL (150-450); Poikilocytosis Slight; RBC 4.04 m/uL (3.80-5.40); RDW 17.7 % (11.5-15.5); WBC 9.7 k/uL (3.8-10.6)
[2020-04-13 04:21] LABS: African American GFR (CKD) >90 (>60 ml/min/1.73 sqM); Anion Gap 5 mmol/L; Blood Urea Nitrogen 12 mg/dL (7-17); Calcium 7.9 mg/dL (8.4-10.2); Carbon Dioxide 28 mmol/L (22-30); Chloride 102 mmol/L (98-107); Glucose 170 mg/dL (74-99); Non-African American GFR(CKD) >90 (>60 ml/min/1.73 sqM); Potassium 3.9 mmol/L (3.5-5.1); Sodium 135 mmol/L (137-145)
[2020-04-13] MEDS: SODIUM CHLORIDE 0.9% 1,000 ML IV SCH (07:09)
[2020-04-13] MEDS: INSULIN ASPART (NovoLOG) 100 UNIT/ML VIAL SQ SCH ×4 (07:10→21:17)
[2020-04-13] MEDS ORDERED: POTASSIUM CHLORIDE ER 20 MEQ TAB.ER PO SCH (08:00)
[2020-04-13] MEDS: amLODIPine 5 MG TAB PO SCH ×2 (08:46→21:16)
[2020-04-13] MEDS: ENOXAPARIN 40 MG/0.4 ML SYRINGE SQ SCH ×2 (08:46→21:17)
[2020-04-13] MEDS: ASCORBIC ACID 500 MG TAB PO SCH ×2 (08:46→21:16)
[2020-04-13] MEDS: hydrALAZINE HCL 25 MG TAB PO SCH ×3 (08:46→21:16)
[2020-04-13] MEDS: CHOLECALCIFEROL 400 UNIT TAB PO SCH (08:46)
[2020-04-13] MEDS: ZINC SULFATE 220 MG CAP PO SCH (08:46)
[2020-04-13] MEDS: PANTOPRAZOLE 40 MG/10 ML VIAL IVP SCH ×2 (08:47→21:16)
[2020-04-13] MEDS: methylPREDNISolone SOD SUCCI 40 MG/ML 1 ML VIAL IV SCH ×2 (08:47→21:15)
[2020-04-13 09:37] LABS: Glucose,Whole Blood 166 mg/dL (75-99)
[2020-04-13 09:38] LABS: Glucose,Whole Blood 147 mg/dL (75-99)
[2020-04-13 09:38] LABS: Glucose,Whole Blood 141 mg/dL (75-99)
[2020-04-13 09:39] LABS: Glucose,Whole Blood 150 mg/dL (75-99)
[2020-04-13 09:39] LABS: Glucose,Whole Blood 140 mg/dL (75-99)
[2020-04-13 09:39] LABS: Glucose,Whole Blood 215 mg/dL (75-99)
[2020-04-13 09:39] LABS: Glucose,Whole Blood 139 mg/dL (75-99)
[2020-04-13 09:40] LABS: Glucose,Whole Blood 156 mg/dL (75-99)
[2020-04-13 09:40] LABS: Glucose,Whole Blood 154 mg/dL (75-99)
[2020-04-13 09:40] LABS: Glucose,Whole Blood 124 mg/dL (75-99)
[2020-04-13 09:40] LABS: Glucose,Whole Blood 141 mg/dL (75-99)
[2020-04-13 09:40] LABS: Glucose,Whole Blood 142 mg/dL (75-99)
[2020-04-13 09:41] LABS: Glucose,Whole Blood 162 mg/dL (75-99)
[2020-04-13 09:41] LABS: Glucose,Whole Blood 172 mg/dL (75-99)
[2020-04-13 09:41] LABS: Glucose,Whole Blood 116 mg/dL (75-99)
[2020-04-13 11:47] LABS: Glucose,Whole Blood 124 mg/dL (75-99)
[2020-04-13] MEDS: SERTRALINE 100 MG TAB PO SCH (13:20)
--- NOTE | 2020-04-13 15:42 | P.PN ---
Subjective Progress Note Date: 04/11/20 Principal diagnosis: Acute hypoxic respiratory failure Covid19 pneumonia Acute respiratory and metabolic acidosis Acute hepatitis/elevated liver enzymes Acute diastolic heart failure and fluid overload Chronic anemia Fibromyalgia Hypertension hypertensive cardiovascular disease 04/11/2020, patient seen eval examined during evaluation patient noted to be more awake and alert compared to prior exam however patient remains on 15 L 75% aerosolized oxygen high flow, no obvious distress present patient remains afebrile, remains on broad-spectrum antibiotics and usual care for coronary 19 pneumonia April 10 2020 patient seen eval examined sitting upright on the bed breathing comfortably, patient remains on high flow oxygen 15 L 75%, swallow evaluation completed patient able to swallow well will start by mouth blood pressure problem remains an issue we will increase the dose of Norvasc continue oral hydralazine monitor blood pressure closely, absolute reviewed x-ray reviewed continued to show bilateral interstitial infiltrate predominantly in mid part and basis 04/09/2020, patient seen eval examined in the ICU, respiratory status remains marginal but stable, patient is on 80% aerosolized oxygen 15 L, saturation is 90%, more awake and alert, swallowing functions will be reassessed later on today by speech therapist, mental status changes agitated behavior and confusion remains an issue which causes blood pressure to go up as well, 04/08/2020, patient seen eval examined during the rounds labs reviewed medications reviewed care plan discussed, patient remains on BiPAP 15/5 with 70% oxygen, oxygen saturation 94% more awake alert, will try high flow aerosolized oxygen, blood culture positive for gram positive cocci in chain, patient is on IV vancomycin he is following 04/07/2020, patient seen eval examined during the rounds labs reviewed medicati ons reviewed, mental status remains stable slightly improved however, patient intermittently get anxious and agitated, low-grade temperature 90 is present hemodynamically stable though, saturation is 90% to 93% on partial nonrebreather mask, chest x-ray remains stable, white cell count remains elevated, 04/06/2020, patient seen eval examined during the rounds labs reviewed medications reviewed, patient remains off of ventilator, mental status slightly better today compared to last 24-48 hours less agitated awake oriented 1 now, remains on partial nonrebreather mask, saturation is 94%, LAD pressure slightly running on the higher side remains on IV hydralazine, oxygen saturation is 94% to 96%, 04/05/2020, patient seen eval reexamined successfully weaned and extubated yesterday has been on supplemental oxygen 2-4 L, in the last 8-12 hours however decompensation in oxygenation status as well as patient even though awake but remains agitated appears to have a agitated delirium, does require Dilaudid at a regular interval, remains afebrile, oxygen saturation is 99% on 10 L nonrebreather mask, patient cannot take by mouth medicines are listed IV, will try morphine as needed DC Dilaudid, 04/04/2020, patient seen eval examined during the rounds labs reviewed medications reviewed care plan discussed, patient is awake now remains off of propofol since yesterday, does make intermittent eye contact, remains slightly withdrawn however, respiratory status stable, remains on assist control mode rate of 24, tidal volume is 450, +5 of PEEP, 40% oxygen, peak airway pressure stable, chest x-ray shows bilateral diffuse interstitial infiltrate stable ET tube and NG tube in PICC line, white cell count is 13,400, hemoglobin and hematocrit stable 9.4 and 31, arterial blood gases reviewed pH is 7.4 to pCO2 32 pO2 64, BUN/creatinine is 32 and 0.5, patient is reviewed Lovenox remains 2040 mg subcu twice a day on IV furosemide, Solu-Medrol is 60 mg IV every 6 we'll decrease it to every 12 04/03/2020, patient seen eval examined during rounds labs reviewed medications reviewed, care plan discussed, overall hemodynamically he remains stable blood pressure spiked up on hydralazine when necessary, seems to be helping, patient sedated with propofol drip 50 mics, attempts for weaning of protocol has been unsuccessful as patient becomes agitated, attempted Precedex drip has been unsuccessful as well, current vent settings include assist control rate of 24 breathing 24, FiO2 is 40%, PEEP is 5, tidal volume is 450, chest x-ray stable ET tube with bilateral multifocal infiltrate with consolidation consistent with cold with 19 pneumonia not essentially much change from the prior x-ray, ET tube and NG tube was stable, patient is getting tube feed bolus feeding, labs including ABG chemistry reviewed 04/02/2020, patient seen eval examined during the rounds labs reviewed medications reviewed care plan discussed, patient remains sedated with propofol on ventilator for full ventilator support, currently patient is on assist control mode rate Tuesday for breathing 24, tidal volume is 450, 5 of PEEP, 40% oxygen, propofol is 50 mics, chest x-ray from today reviewed continue show patchy bilateral infiltrate without any significant interval change, arterial blood gases revealed pH of 7.43 pCO2 32, C-reactive protein is down to 21, BUN/creatinine is 34/.49, white cell count and hemoglobin remained stable, medications reviewed, she remains on broad-spectrum antibiotic with cephapirin, Lovenox, gentle diuresis with Lasix, blood pressure control with IV hydralazine, patient remains on high-dose IV steroids, discussed with the staff at length, will stop the propofol drip and once patient is awake put on CPAP 5 pressure support of 5 gas after half an hour also check weaning parameters 04/01/2020, patient seen eval examined labs reviewed medications reviewed care plan discussed with the staff at length patient had a sedation holiday today she is arousable and awake follows simple commands with blood pressure went up becomes agitated anxious requiring a reinitiation of propofol drip, ventilator setting remains unchanged, patient is on rate of 24 tidal volume is 450, PEEP is 5, oxygen is 40%, chest x-ray from today reviewed remains overall stable with stable lines and tubes 03/31/2020, patient seen eval examined during the rounds labs reviewed medications reviewed care plan discussed, patient remains on full ventilator support, propofol was changed to Precedex but however patient becomes agitated so back on propofol when setting remains unchanged have been on assist control rate of 24, PEEP is 5, FiO2 is 40%, tidal volume of 450, care plan discussed with the staff at length critical care time 35 minutes 03/30/2020, patient seen eval examined during the rounds labs reviewed medications reviewed, remains sedated with propofol, current vent setting include his control rate of 24 breathing 24 tidal volume is 450, deep is 5 now, FiO2 is 40%, tolerating tube feed very well, chest x-ray reviewed slightly better but stable bilateral infiltrate consistent with atypical pneumonia, patient continued IVs very well with 20 mg Lasix daily, white cell count remained stable, with stable hemoglobin and however decreasing platelet count noted, dear blood gases revealed pH of 7.4 to pCO2 34 pO2 of 62, BUN/creatinine is 36 and 0.62, left he continue show downward trend, inflammatory markers reviewed still elevated but showing a downward trend 03/29/2020, patient seen eval examined during the rounds labs reviewed medications reviewed, care plan discussed with the nursing staff at length, patient has been on assist control rate of the 24 PEEP of 8 400 tidal volume 50% oxygen, ventilator has been adjusted with reduction in PEEP and oxygen, patient's saturation remained stable 91-92%, next step he is to stop propofol and reassess the mental status and if patient remains stable oxygen randolph and hemodynamics can do a CPAP pressure support trial in the meantime we'll continue IV steroids, antibiotics, CBC and ABG reviewed, today's chest x-ray showed bilateral interstitial infiltrate, predominantly at the bases, patient has been on Lasix 20 mg daily diuresing very well, critical care time 35 minutes 03/28/2020, patient seen eval examined during the rounds labs reviewed medications reviewed care plan discussed oxygen has been down to 40% now. The patient is PEEP of 8, otherwise ventilator setting remains stable, patient is scheduled for PICC line later on today, remains on propofol, remains on broad- spectrum antibiotics, labs from today has been reviewed hemoglobin is stable 7.9, d-dimer is 3.24, arterial blood gases stable pH is 7.41 pCO2 35 pO2 96, B UN/creatinine is 51 and 1.05, ferritin level remains more than 26,000, AST ALT continued decline however today is 367 and 558, C-reactive protein checked 69.5 her chest x-ray earlier than today remains there however appears to have slightly progressed 03/27/2020, patient seen eval examined during the rounds labs reviewed medications reviewed care plan discussed, propofol has been discontinued patient because very restless and anxious, we'll restart propofol, patient has been on full ventilator support assist control 24 tidal volume of 450, PEEP is 10, oxygen is 70%, arterial blood gases reviewed when lower the FiO2 to 60% now plan to bring down the FiO2 to 50% and PEEP of 8 next 24 hours, sputum and blood cultures reviewed no growth so far, chest x-ray performed today reviewed significant improvement in infiltrates seen bilaterally, patient has a poor urine output throughout the night, 20 mg of Lasix was given put out 600 mL of urine patient continued to be on gentle hydration, remain on cefapime and Vanco, Lovenox Solu-Medrol multivitamin and vitamin C zinc and Lovenox, white cell count is stable 10,500 hemoglobin and hematocrit 7.2 and 24, general surgery has been following patient is considered to get EGD and colonoscopy once stable, arterial blood gas revealed pH of 7.39 pCO2 of 39 pO2 of 124, bicarb 25, liver enzymes continue to come down AST and ALT now is 944/809, hepatitis panel normal and nonreactive 03/26/2020, patient seen eval examined in the ICU care plan discussed with the staff, FiO2 has been down to 60%, patient remains on assist control tidal volume of 450, PEEP is 10, respiratory rate is 24 breathing with the respirator pH has been improved significantly, patient is making adequate urine chest x-ray compared with yesterday's x-ray some improvement have been noted, white cell count is 11,000, hemoglobin 7.9 which is stable, arterial blood gas improved to 7.39, pCO2 of 40, pO2 112, BUN/creatinine is 33/0.96, lactic acid was 5.9 down to 1.3 now, ferritin level noted to be 12,800, AST and ALT are 4014 100 with LDH over 21,500, today LFTs significantly improved AST is down to 2795 and ALT is 1222, pro calcitonin is 0.84, suspect some component of heart failure as well as pneumonia, will get an echocardiogram as well as start patient on broad-spectrum antibiotics with cefepime and Vanco Patient seen and evaluated examined in the emergency department, patient came into the ER from the office of Dr. Aleman due to progressive shortness of b reath, patient has acute on chronic hypoxic respiratory failure on 4 L oxygen, also has issues associated with pneumonia presumed to be cold with 19, however, testing was negative, patient used to smoke in the remote past quit about 20-30 years ago due to severity or shortness of breath and hypoxia with saturation of 76% on 100% oxygen and respiratory distress patient was intubated due to poor tolerance on BiPAP, patient Covid testing came back positive, chest x-ray showing diffuse infiltrate she also has been noted to have elevated liver enzymes due to elevated liver enzymes will not start IV REMdesivir, Initial ABG pH is 7.18, pCO2 is 63 pO2 was only 33 Objective - Vital Signs Vital signs: Vital Signs Temp 99.5 F 04/11/20 12:00 Pulse 86 04/11/20 15:00 Resp 20 04/11/20 15:00 BP 149/80 04/11/20 15:00 Pulse Ox 93 L 04/11/20 15:00 Intake & Output 04/10/20 04/11/20 04/11/20 18:59 06:59 18:59 Intake Total 975 875 975 Output Total 1520 795 852 Balance -545 80 123 Weight 86.1 kg 85 kg Intake: IV 975 825 525 Sodium Chloride 0.9% 1, 975 825 525 000 ml @ 75 mls/hr IV . [id number] NONA Rx#:[id number] Intake, IV Titration 250 Amount Vancomycin 1,500 mg In 250 Sodium Chloride 0.9% 250 ml @ 125 mls/hr IVPB Q12H NONA Rx#:[id number] Oral 50 200 Output: Urine 1520 795 852 Other: Voiding Method Indwelling Catheter Indwelling Catheter Indwelling Catheter - Exam Patient on 80% oxygen 15 L aerosolized saturation is 90% to 92% - Constitutional General appearance: average body habitus, mild distress, restless intermittently agitated - EENT Ears: bilateral: normal - Neck Carotids: bilateral: upstroke normal Thyroid: bilateral: normal size - Respiratory Respiratory: bilateral: diminished - Cardiovascular Rhythm: regular Heart sounds: normal: S1, S2 - Gastrointestinal General gastrointestinal: normal bowel sounds Patient is relatively more awake and alert compared to yesterday exam - Labs CBC & Chem 7: 04/13/20 04:00 04/13/20 04:00 Labs: Abnormal Lab Results - Last 24 Hours (Table) 04/11/20 04/11/20 Range/Units 04:21 04:21 WBC 12.9 H (3.8-10.6) k/uL RBC 3.72 L (3.80-5.40) m/uL Hgb 9.9 L (11.4-16.0) gm/dL Hct 33.9 L (34.0-46.0) % MCHC 29.2 L (31.0-37.0) g/dL RDW 17.8 H (11.5-15.5) % Neutrophils # 12.3 H (1.3-7.7) k/uL Lymphocytes # 0.2 L (1.0-4.8) k/uL Sodium 134 L (137-145) mmol/L Chloride 108 H (98-107) mmol/L Creatinine 0.45 L (0.52-1.04) mg/dL Glucose 149 H (74-99) mg/dL Calcium 7.7 L (8.4-10.2) mg/dL Microbiology - Last 24 Hours (Table) 04/09/20 03:43 Blood Culture - Preliminary Blood No Growth after 48 hours 04/09/20 22:20 Urine Culture - Preliminary Urine,Voided Group D Enterococcus 04/07/20 15:40 Blood Culture Gram Stain - Final Blood Blood Culture - Final Enterococcus faecalis Coagulase Negative Staph 04/09/20 14:50 Catheter Tip Culture - Preliminary Picc Line 04/07/20 15:30 Blood Culture - Preliminary Blood No Growth after 72 hours Assessment and Plan Assessment: Hypertensive urgency, antihypertensive being adjusted Gram-positive bacteremia found to be group D enterococcus patient is on vancomycin Agitated delirium along with metabolic encephalopathy likely multifactorial including Covid 19 pneumonia, is being in ICU, for intubation long period time sepsis, slowly improving Acute hypoxic respiratory failure Covid19 pneumonia Acute pneumonia bacterial bilateral healthcare associated patient is being monitored off of antibiotics now Thrombocytopenia stable Acute respiratory and metabolic acidosis Acute hepatitis/elevated liver enzymes Acute diastolic heart failure Chronic anemia Fibromyalgia Hypertension hypertensive cardiovascular disease Plan: Continue supportive care, avoid benzodiazepine, continue monitor patient's remains on high flow and also aerosolized oxygen, closely once FiO2 down to nasal cannula will move her out of ICU with that we'll help the delirium as well continue IV vancomycin Monitor intake and output closely keep on even a negative side Patient remains on partial nonrebreather mask was slowly titrate oxygen down as tolerated Trend liver enzymes Patient is not a candidate for IV REMdesivir due to markedly elevated liver enzymes IV steroids, continued to taper in next 24 hours will bring it down to once a day Further recommendations pending plan of care as per clinical response of patient Continue anticoagulation with Lovenox Time with Patient: Greater than 30
--- NOTE | 2020-04-13 15:45 | P.PN ---
Subjective Progress Note Date: 04/12/20 Principal diagnosis: Acute hypoxic respiratory failure Covid19 pneumonia Acute respiratory and metabolic acidosis Acute hepatitis/elevated liver enzymes Acute diastolic heart failure and fluid overload Chronic anemia Fibromyalgia Hypertension hypertensive cardiovascular disease 04/12/2020, patient seen eval examined during rounds labs reviewed medications reviewed, respiratory status remains unchanged, patient remains on 15 L 75% oxygen unable to titrate oxygen down, appetite continued to improve, patient able to swallow well, labs reviewed medications reviewed care plan discussed with the staff at length, patient can be moved out to [facility] with remote telemetry 04/11/2020, patient seen eval examined during evaluation patient noted to be more awake and alert compared to prior exam however patient remains on 15 L 75% aerosolized oxygen high flow, no obvious distress present patient remains afebrile, remains on broad-spectrum antibiotics and usual care for coronary 19 pneumonia April 10 2020 patient seen eval examined sitting upright on the bed breathing comfortably, patient remains on high flow oxygen 15 L 75%, swallow evaluation completed patient able to swallow well will start by mouth blood pressure problem remains an issue we will increase the dose of Norvasc continue oral hydralazine monitor blood pressure closely, absolute reviewed x-ray reviewed continued to show bilateral interstitial infiltrate predominantly in mid part and basis 04/09/2020, patient seen eval examined in the ICU, respiratory status remains marginal but stable, patient is on 80% aerosolized oxygen 15 L, saturation is 90%, more awake and alert, swallowing functions will be reassessed later on today by speech therapist, mental status changes agitated behavior and confusion remains an issue which causes blood pressure to go up as well, 04/08/2020, patient seen eval examined during the rounds labs reviewed medications reviewed care plan discussed, patient remains on BiPAP 15/5 with 70% oxygen, oxygen saturation 94% more awake alert, will try high flow aerosolized oxygen, blood culture positive for gram positive cocci in chain, patient is on IV vancomycin he is following 04/07/2020, patient seen eval examined during the rounds labs reviewed medications reviewed, mental status remains stable slightly improved however, patient intermittently get anxious and agitated, low-grade temperature 90 is present hemodynamically stable though, saturation is 90% to 93% on partial nonrebreather mask, chest x-ray remains stable, white cell count remains elevated, 04/06/2020, patient seen eval examined during the rounds labs reviewed medications reviewed, patient remains off of ventilator, mental status slightly better today compared to last 24-48 hours less agitated awake oriented 1 now, remains on partial nonrebreather mask, saturation is 94%, LAD pressure slightly running on the higher side remains on IV hydralazine, oxygen saturation is 94% to 96%, 04/05/2020, patient seen eval reexamined successfully weaned and extubated yesterday has been on supplemental oxygen 2-4 L, in the last 8-12 hours however decompensation in oxygenation status as well as patient even though awake but remains agitated appears to have a agitated delirium, does require Dilaudid at a regular interval, remains afebrile, oxygen saturation is 99% on 10 L nonrebreather mask, patient cannot take by mouth medicines are listed IV, will try morphine as needed DC Dilaudid, 04/04/2020, patient seen eval examined during the rounds labs reviewed medications reviewed care plan discussed, patient is awake now remains off of propofol since yesterday, does make intermittent eye contact, remains slightly withdrawn however, respiratory status stable, remains on assist control mode rate of 24, tidal volume is 450, +5 of PEEP, 40% oxygen, peak airway pressure stable, chest x-ray shows bilateral diffuse interstitial infiltrate stable ET tube and NG tube in PICC line, white cell count is 13,400, hemoglobin and hematocrit stable 9.4 and 31, arterial blood gases reviewed pH is 7.4 to pCO2 32 pO2 64, BUN/creatinine is 32 and 0.5, patient is reviewed Lovenox remains 2040 mg subcu twice a day on IV furosemide, Solu-Medrol is 60 mg IV every 6 we'll decrease it to every 12 04/03/2020, patient seen eval examined during rounds labs reviewed medications reviewed, care plan discussed, overall hemodynamically he remains stable blood pressure spiked up on hydralazine when necessary, seems to be helping, patient sedated with propofol drip 50 mics, attempts for weaning of protocol has been unsuccessful as patient becomes agitated, attempted Precedex drip has been unsuccessful as well, current vent settings include assist control rate of 24 breathing 24, FiO2 is 40%, PEEP is 5, tidal volume is 450, chest x-ray stable ET tube with bilateral multifocal infiltrate with consolidation consistent with cold with 19 pneumonia not essentially much change from the prior x-ray, ET tube and NG tube was stable, patient is getting tube feed bolus feeding, labs including ABG chemistry reviewed 04/02/2020, patient seen eval examined during the rounds labs reviewed medications reviewed care plan discussed, patient remains sedated with propofol on ventilator for full ventilator support, currently patient is on assist control mode rate Tuesday for breathing 24, tidal volume is 450, 5 of PEEP, 40% oxygen, propofol is 50 mics, chest x-ray from today reviewed continue show patchy bilateral infiltrate without any significant interval change, arterial blood gases revealed pH of 7.43 pCO2 32, C-reactive protein is down to 21, BUN/creatinine is 34/.49, white cell count and hemoglobin remained stable, medications reviewed, she remains on broad-spectrum antibiotic with cephapirin, Lovenox, gentle diuresis with Lasix, blood pressure control with IV hydralazine, patient remains on high-dose IV steroids, discussed with the staff at length, will stop the propofol drip and once patient is awake put on CPAP 5 pressure support of 5 gas after half an hour also check weaning parameters 04/01/2020, patient seen eval examined labs reviewed medications reviewed care plan discussed with the staff at length patient had a sedation holiday today she is arousable and awake follows simple commands with blood pressure went up becomes agitated anxious requiring a reinitiation of propofol drip, ventilator setting remains unchanged, patient is on rate of 24 tidal volume is 450, PEEP is 5, oxygen is 40%, chest x-ray from today reviewed remains overall stable with stable lines and tubes 03/31/2020, patient seen eval examined during the rounds labs reviewed medications reviewed care plan discussed, patient remains on full ventilator support, propofol was changed to Precedex but however patient becomes agitated so back on propofol when setting remains unchanged have been on assist control rate of 24, PEEP is 5, FiO2 is 40%, tidal volume of 450, care plan discussed with the staff at length critical care time 35 minutes 03/30/2020, patient seen eval examined during the rounds labs reviewed medications reviewed, remains sedated with propofol, current vent setting include his control rate of 24 breathing 24 tidal volume is 450, deep is 5 now, FiO2 is 40%, tolerating tube feed very well, chest x-ray reviewed slightly better but stable bilateral infiltrate consistent with atypical pneumonia, patient continued IVs very well with 20 mg Lasix daily, white cell count remained stable, with stable hemoglobin and however decreasing platelet count noted, dear blood gases revealed pH of 7.4 to pCO2 34 pO2 of 62, BUN/creatinine is 36 and 0.62, left he continue show downward trend, inflammatory markers reviewed still elevated but showing a downward trend 03/29/2020, patient seen eval examined during the rounds labs reviewed medications reviewed, care plan discussed with the nursing staff at length, patient has been on assist control rate of the 24 PEEP of 8 400 tidal volume 50% oxygen, ventilator has been adjusted with reduction in PEEP and oxygen, patient's saturation remained stable 91-92%, next step he is to stop propofol and reassess the mental status and if patient remains stable oxygen randolph and hemodynamics can do a CPAP pressure support trial in the meantime we'll continue IV steroids, antibiotics, CBC and ABG reviewed, today's chest x-ray showed bilateral interstitial infiltrate, predominantly at the bases, patient has been on Lasix 20 mg daily diuresing very well, critical care time 35 minutes 03/28/2020, patient seen eval examined during the rounds labs reviewed medications reviewed care plan discussed oxygen has been down to 40% now. The patient is PEEP of 8, otherwise ventilator setting remains stable, patient is scheduled for PICC line later on today, remains on propofol, remains on broad- spectrum antibiotics, labs from today has been reviewed hemoglobin is stable 7.9, d-dimer is 3.24, arterial blood gases stable pH is 7.41 pCO2 35 pO2 96, BUN/creatinine is 51 and 1.05, ferritin level remains more than 26,000, AST ALT continued decline however today is 367 and 558, C-reactive protein checked 69.5 her chest x-ray earlier than today remains there however appears to have slightly progressed 03/27/2020, patient seen eval examined during the rounds labs reviewed medications reviewed care plan discussed, propofol has been discontinued patient because very restless and anxious, we'll restart propofol, patient has been on full ventilator support assist control 24 tidal volume of 450, PEEP is 10, oxygen is 70%, arterial blood gases reviewed when lower the FiO2 to 60% now plan to bring down the FiO2 to 50% and PEEP of 8 next 24 hours, sputum and blood cultures reviewed no growth so far, chest x-ray performed today reviewed significant improvement in infiltrates seen bilaterally, patient has a poor urine output throughout the night, 20 mg of Lasix was given put out 600 mL of urine patient continued to be on gentle hydration, remain on cefapime and Vanco, Lovenox Solu-Medrol multivitamin and vitamin C zinc and Lovenox, white cell coun t is stable 10,500 hemoglobin and hematocrit 7.2 and 24, general surgery has been following patient is considered to get EGD and colonoscopy once stable, arterial blood gas revealed pH of 7.39 pCO2 of 39 pO2 of 124, bicarb 25, liver enzymes continue to come down AST and ALT now is 944/809, hepatitis panel normal and nonreactive 03/26/2020, patient seen eval examined in the ICU care plan discussed with the staff, FiO2 has been down to 60%, patient remains on assist control tidal volume of 450, PEEP is 10, respiratory rate is 24 breathing with the respirator pH has been improved significantly, patient is making adequate urine chest x-ray compared with yesterday's x-ray some improvement have been noted, white cell count is 11,000, hemoglobin 7.9 which is stable, arterial blood gas improved to 7.39, pCO2 of 40, pO2 112, BUN/creatinine is 33/0.96, lactic acid was 5.9 down to 1.3 now, ferritin level noted to be 12,800, AST and ALT are 4014 100 with LDH over 21,500, today LFTs significantly improved AST is down to 2795 and ALT is 1222, pro calcitonin is 0.84, suspect some component of heart failure as well as pneumonia, will get an echocardiogram as well as start patient on broad-spectrum antibiotics with cefepime and Vanco Patient seen and evaluated examined in the emergency department, patient came into the ER from the office of Dr. Aleman due to progressive shortness of breath, patient has acute on chronic hypoxic respiratory failure on 4 L oxygen, also has issues associated with pneumonia presumed to be cold with 19, however, testing was negative, patient used to smoke in the remote past quit about 20-30 years ago due to severity or shortness of breath and hypoxia with saturation of 76% on 100% oxygen and respiratory distress patient was intubated due to poor tolerance on BiPAP, patient Covid testing came back positive, chest x-ray showing diffuse infiltrate she also has been noted to have elevated liver enzymes due to elevated liver enzymes will not start IV REMdesivir, Initial ABG pH is 7.18, pCO2 is 63 pO2 was only 33 Objective - Vital Signs Vital signs: Vital Signs Temp 99.1 F 04/12/20 08:00 Pulse 78 04/12/20 11:00 Resp 24 04/12/20 11:00 BP 161/83 04/12/20 11:00 Pulse Ox 90 L 04/12/20 11:00 Intake & Output 04/11/20 04/12/20 04/12/20 18:59 06:59 18:59 Intake Total 1300 1200 475 Output Total 1227 1300 670 Balance 73 -100 -195 Weight 85 kg Intake: IV 750 1200 125 Fluconazole in NaCl,Iso- 50 Osm 100 mg In Saline 1 50ml.bag @ 50 mls/hr IVPB HS NONA Rx#:[id number] Sodium Chloride 0.9% 1, 750 900 125 000 ml @ 50 mls/hr IV . Q20H NONA Rx#:[id number] Vancomycin 1,500 mg In 250 Sodium Chloride 0.9% 250 ml @ 125 mls/hr IVPB Q16H NONA Rx#:[id number] Intake, IV Titration 250 250 Amount Vancomycin 1,500 mg In 250 Sodium Chloride 0.9% 250 ml @ 125 mls/hr IVPB Q12H NONA Rx#:[id number] Vancomycin 1,500 mg In 250 Sodium Chloride 0.9% 250 ml @ 125 mls/hr IVPB Q16H NONA Rx#:[id number] Oral 300 100 Output: Urine 1227 1300 670 Other: Voiding Method Indwelling Catheter Indwelling Catheter Indwelling Catheter - Exam Patient on 80% oxygen 15 L aerosolized saturation is 90% to 92% - Constitutional General appearance: average body habitus, mild distress, restless intermittently agitated - EENT Ears: bilateral: normal - Neck Carotids: bilateral: upstroke normal Thyroid: bilateral: normal size - Respiratory Respiratory: bilateral: diminished - Cardiovascular Rhythm: regular Heart sounds: normal: S1, S2 - Gastrointestinal General gastrointestinal: normal bowel sounds Patient is relatively more awake and alert compared to yesterday exam - Labs CBC & Chem 7: 04/13/20 04:00 04/13/20 04:00 Labs: Abnormal Lab Results - Last 24 Hours (Table) 04/12/20 04/12/20 04/12/20 Range/Units 05:50 05:50 11:00 WBC 12.1 H (3.8-10.6) k/uL Hgb 11.2 L (11.4-16.0) gm/dL RDW 17.6 H (11.5-15.5) % Neutrophils # 11.6 H (1.3-7.7) k/uL Lymphocytes # 0.2 L (1.0-4.8) k/uL Sodium 136 L (137-145) mmol/L Creatinine 0.50 L (0.52-1.04) mg/dL Glucose 169 H (74-99) mg/dL Calcium 7.9 L (8.4-10.2) mg/dL Ur Leukocyte Esterase Trace H (Negative) Urine WBC 6 H (0-5) /hpf Urine Bacteria Rare H (None) /hpf Urine Mucus Rare H (None) /hpf Microbiology - Last 24 Hours (Table) 04/09/20 03:43 Blood Culture - Preliminary Blood No Growth after 72 hours 04/09/20 22:20 Urine Culture - Final Urine,Voided Enterococcus faecium VRE Kristi albicans 04/09/20 14:50 Catheter Tip Culture - Final Picc Line 04/07/20 15:30 Blood Culture - Preliminary Blood No Growth after 96 hours Assessment and Plan Assessment: Hypertensive urgency, antihypertensive being adjusted Gram-positive bacteremia found to be group D enterococcus patient is on vancomycin Agitated delirium along with metabolic encephalopathy likely multifactorial including Covid 19 pneumonia, is being in ICU, for intubation long period time sepsis, slowly improving Acute hypoxic respiratory failure Covid19 pneumonia Acute pneumonia bacterial bilateral healthcare associated patient is being monitored off of antibiotics now Thrombocytopenia stable Acute respiratory and metabolic acidosis Acute hepatitis/elevated liver enzymes Acute diastolic heart failure Chronic anemia Fibromyalgia Hypertension hypertensive cardiovascular disease Plan: Continue supportive care, avoid benzodiazepine, continue monitor patient's remains on high flow and also aerosolized oxygen, closely once FiO2 down to nasal cannula will move her out of ICU with that we'll help the delirium as well continue IV vancomycin Monitor intake and output closely keep on even a negative side Patient remains on partial nonrebreather mask was slowly titrate oxygen down as tolerated Trend liver enzymes Patient is not a candidate for IV REMdesivir due to markedly elevated liver enzymes IV steroids, continued to taper in next 24 hours will bring it down to once a day Further recommendations pending plan of care as per clinical response of patient Continue anticoagulation with Lovenox Time with Patient: Greater than 30
[2020-04-13] MEDS: SENNOSIDES 8.6 MG TAB PO PRN (15:46)
--- NOTE | 2020-04-13 15:46 | P.PN ---
Subjective Progress Note Date: 04/13/20 Principal diagnosis: Acute hypoxic respiratory failure Covid19 pneumonia Acute respiratory and metabolic acidosis Acute hepatitis/elevated liver enzymes Acute diastolic heart failure and fluid overload Chronic anemia Fibromyalgia Hypertension hypertensive cardiovascular disease 04/13/2020, patient seen eval examined during the rounds labs reviewed medications reviewed care plan discussed with the staff, respiratory status remains stable continued to be on the 75% oxygen 15 L high flow, remains afebrile remains on antibiotics patient will be transferred to [facility] with remote telemetry date on today 04/12/2020, patient seen eval examined during rounds labs reviewed medications reviewed, respiratory status remains unchanged, patient remains on 15 L 75% oxygen unable to titrate oxygen down, appetite continued to improve, patient able to swallow well, labs reviewed medications reviewed care plan discussed with the staff at length, patient can be moved out to [facility] with remote telemetry 04/11/2020, patient seen eval examined during evaluation patient noted to be more awake and alert compared to prior exam however patient remains on 15 L 75% aerosolized oxygen high flow, no obvious distress present patient remains afebrile, remains on broad-spectrum antibiotics and usual care for coronary 19 pneumonia April 10 2020 patient seen eval examined sitting upright on the bed breathing comfortably, patient remains on high flow oxygen 15 L 75%, swallow evaluation completed patient able to swallow well will start by mouth blood pressure problem remains an issue we will increase the dose of Norvasc continue oral hydralazine monitor blood pressure closely, absolute reviewed x-ray reviewed continued to show bilateral interstitial infiltrate predominantly in mid part and basis 04/09/2020, patient seen eval examined in the ICU, respiratory status remains marginal but stable, patient is on 80% aerosolized oxygen 15 L, saturation is 90%, more awake and alert, swallowing functions will be reassessed later on today by speech therapist, mental status changes agitated behavior and confusion remains an issue which causes blood pressure to go up as well, 04/08/2020, patient seen eval examined during the rounds labs reviewed medications reviewed care plan discussed, patient remains on BiPAP 15/5 with 70% oxygen, oxygen saturation 94% more awake alert, will try high flow aerosolized oxygen, blood culture positive for gram positive cocci in chain, patient is on IV vancomycin he is following 04/07/2020, patient seen eval examined during the rounds labs reviewed medications reviewed, mental status remains stable slightly improved however, patient intermittently get anxious and agitated, low-grade temperature 90 is present hemodynamically stable though, saturation is 90% to 93% on partial nonrebreather mask, chest x-ray remains stable, white cell count remains elevated, 04/06/2020, patient seen eval examined during the rounds labs reviewed m edications reviewed, patient remains off of ventilator, mental status slightly better today compared to last 24-48 hours less agitated awake oriented 1 now, remains on partial nonrebreather mask, saturation is 94%, LAD pressure slightly running on the higher side remains on IV hydralazine, oxygen saturation is 94% to 96%, 04/05/2020, patient seen eval reexamined successfully weaned and extubated yesterday has been on supplemental oxygen 2-4 L, in the last 8-12 hours however decompensation in oxygenation status as well as patient even though awake but remains agitated appears to have a agitated delirium, does require Dilaudid at a regular interval, remains afebrile, oxygen saturation is 99% on 10 L nonrebreather mask, patient cannot take by mouth medicines are listed IV, will try morphine as needed DC Dilaudid, 04/04/2020, patient seen eval examined during the rounds labs reviewed medi cations reviewed care plan discussed, patient is awake now remains off of propofol since yesterday, does make intermittent eye contact, remains slightly withdrawn however, respiratory status stable, remains on assist control mode rate of 24, tidal volume is 450, +5 of PEEP, 40% oxygen, peak airway pressure stable, chest x-ray shows bilateral diffuse interstitial infiltrate stable ET tube and NG tube in PICC line, white cell count is 13,400, hemoglobin and hematocrit stable 9.4 and 31, arterial blood gases reviewed pH is 7.4 to pCO2 32 pO2 64, BUN/creatinine is 32 and 0.5, patient is reviewed Lovenox remains 2040 mg subcu twice a day on IV furosemide, Solu-Medrol is 60 mg IV every 6 we'll dec rease it to every 12 04/03/2020, patient seen eval examined during rounds labs reviewed medications reviewed, care plan discussed, overall hemodynamically he remains stable blood pressure spiked up on hydralazine when necessary, seems to be helping, patient sedated with propofol drip 50 mics, attempts for weaning of protocol has been unsuccessful as patient becomes agitated, attempted Precedex drip has been unsuccessful as well, current vent settings include assist control rate of 24 breathing 24, FiO2 is 40%, PEEP is 5, tidal volume is 450, chest x-ray stable ET tube with bilateral multifocal infiltrate with consolidation consistent with cold with 19 pneumonia not essentially much change from the prior x-ray, ET tube and NG tube was stable, patient is getting tube feed bolus feeding, labs including ABG chemistry reviewed 04/02/2020, patient seen eval examined during the rounds labs reviewed medications reviewed care plan discussed, patient remains sedated with propofol on ventilator for full ventilator support, currently patient is on assist control mode rate Tuesday for breathing 24, tidal volume is 450, 5 of PEEP, 40% oxygen, propofol is 50 mics, chest x-ray from today reviewed continue show patchy bilateral infiltrate without any significant interval change, arterial blood gases revealed pH of 7.43 pCO2 32, C-reactive protein is down to 21, BUN/creatinine is 34/.49, white cell count and hemoglobin remained stable, medications reviewed, she remains on broad-spectrum antibiotic with cephapirin, Lovenox, gentle diuresis with Lasix, blood pressure control with IV hydralazine, patient remains on high-dose IV steroids, discussed with the staff at length, will stop the propofol drip and once patient is awake put on CPAP 5 pressure support of 5 gas after half an hour also check weaning parameters 04/01/2020, patient seen eval examined labs reviewed medications reviewed care plan discussed with the staff at length patient had a sedation holiday today she is arousable and awake follows simple commands with blood pressure went up becomes agitated anxious requiring a reinitiation of propofol drip, ventilator setting remains unchanged, patient is on rate of 24 tidal volume is 450, PEEP is 5, oxygen is 40%, chest x-ray from today reviewed remains overall stable with s table lines and tubes 03/31/2020, patient seen eval examined during the rounds labs reviewed medica tions reviewed care plan discussed, patient remains on full ventilator support, propofol was changed to Precedex but however patient becomes agitated so back on propofol when setting remains unchanged have been on assist control rate of 24, PEEP is 5, FiO2 is 40%, tidal volume of 450, care plan discussed with the staff at length critical care time 35 minutes 03/30/2020, patient seen eval examined during the rounds labs reviewed medications reviewed, remains sedated with propofol, current vent setting include his control rate of 24 breathing 24 tidal volume is 450, deep is 5 now, FiO2 is 40%, tolerating tube feed very well, chest x-ray reviewed slightly better but stable bilateral infiltrate consistent with atypical pneumonia, patient continued IVs very well with 20 mg Lasix daily, white cell count remained stable, with stable hemoglobin and however decreasing platelet count noted, dear blood gases revealed pH of 7.4 to pCO2 34 pO2 of 62, BUN/creatinine is 36 and 0.62, left he continue show downward trend, inflammatory markers reviewed still elevated but showing a downward trend 03/29/2020, patient seen eval examined during the rounds labs reviewed medications reviewed, care plan discussed with the nursing staff at length, patient has been on assist control rate of the 24 PEEP of 8 400 tidal volume 50% oxygen, ventilator has been adjusted with reduction in PEEP and oxygen, pat ient's saturation remained stable 91-92%, next step he is to stop propofol and reassess the mental status and if patient remains stable oxygen randolph and hemodynamics can do a CPAP pressure support trial in the meantime we'll continue IV steroids, antibiotics, CBC and ABG reviewed, today's chest x-ray showed bilateral interstitial infiltrate, predominantly at the bases, patient has been on Lasix 20 mg daily diuresing very well, critical care time 35 minutes 03/28/2020, patient seen eval examined during the rounds labs reviewed medications reviewed care plan discussed oxygen has been down to 40% now. The patient is PEEP of 8, otherwise ventilator setting remains stable, patient is scheduled for PICC line later on today, remains on propofol, remains on broad- spectrum antibiotics, labs from today has been reviewed hemoglobin is stable 7.9, d-dimer is 3.24, arterial blood gases stable pH is 7.41 pCO2 35 pO2 96, BUN/creatinine is 51 and 1.05, ferritin level remains more than 26,000, AST ALT continued decline however today is 367 and 558, C-reactive protein checked 69.5 her chest x-ray earlier than today remains there however appears to have slightly progressed 03/27/2020, patient seen eval examined during the rounds labs reviewed medications reviewed care plan discussed, propofol has been discontinued patient because very restless and anxious, we'll restart propofol, patient has been on full ventilator support assist control 24 tidal volume of 450, PEEP is 10, oxygen is 70%, arterial blood gases reviewed when lower the FiO2 to 60% now plan to bring down the FiO2 to 50% and PEEP of 8 next 24 hours, sputum and blood cultures reviewed no growth so far, chest x-ray performed today reviewed significant improvement in infiltrates seen bilaterally, patient has a poor urine output throughout the night, 20 mg of Lasix was given put out 600 mL of urine patient continued to be on gentle hydration, remain on cefapime and Vanco, Lovenox Solu-Medrol multivitamin and vitamin C zinc and Lovenox, white cell count is stable 10,500 hemoglobin and hematocrit 7.2 and 24, general surgery has been following patient is considered to get EGD and colonoscopy once stable, arterial blood gas revealed pH of 7.39 pCO2 of 39 pO2 of 124, bicarb 25, liver enzymes continue to come down AST and ALT now is 944/809, hepatitis panel normal and nonreactive 03/26/2020, patient seen eval examined in the ICU care plan discussed with the staff, FiO2 has been down to 60%, patient remains on assist control tidal volume of 450, PEEP is 10, respiratory rate is 24 breathing with the respirator pH has been improved significantly, patient is making adequate urine chest x-ray compared with yesterday's x-ray some improvement have been noted, white cell count is 11,000, hemoglobin 7.9 which is stable, arterial blood gas improved to 7.39, pCO2 of 40, pO2 112, BUN/creatinine is 33/0.96, lactic acid was 5.9 down to 1.3 now, ferritin level noted to be 12,800, AST and ALT are 4014 100 with LDH over 21,500, today LFTs significantly improved AST is down to 2795 and ALT is 1222, pro calcitonin is 0.84, suspect some component of heart failure as well as pneumonia, will get an echocardiogram as well as start patient on broad-spectrum antibiotics with cefepime and Vanco Patient seen and evaluated examined in the emergency department, patient came into the ER from the office of Dr. Aleman due to progressive shortness of breath, patient has acute on chronic hypoxic respiratory failure on 4 L oxygen, also has issues associated with pneumonia presumed to be cold with 19, however, testing was negative, patient used to smoke in the remote past quit about 20-30 years ago due to severity or shortness of breath and hypoxia with saturation of 76% on 100% oxygen and respiratory distress patient was intubated due to poor tolerance on BiPAP, patient Covid testing came back positive, chest x-ray showing diffuse infiltrate she also has been noted to have elevated liver enzymes due to elevated liver enzymes will not start IV REMdesivir, Initial ABG pH is 7.18, pCO2 is 63 pO2 was only 33 Objective - Vital Signs Vital signs: Vital Signs Temp 98.7 F 04/13/20 12:00 Pulse 78 04/13/20 15:00 Resp 15 04/13/20 15:00 BP 156/78 04/13/20 15:00 Pulse Ox 93 L 04/13/20 15:18 Intake & Output 04/12/20 04/13/20 04/13/20 18:59 06:59 18:59 Intake Total 1025 900 550 Output Total 1570 1630 1000 Balance -545 -730 -450 Weight 83 kg Intake: IV 475 900 450 Fluconazole in NaCl,Iso- 50 Osm 100 mg In Saline 1 50ml.bag @ 50 mls/hr IVPB HS NONA Rx#:[id number] Sodium Chloride 0.9% 1, 475 600 450 000 ml @ 50 mls/hr IV . Q20H NONA Rx#:[id number] Vancomycin 1,500 mg In 250 Sodium Chloride 0.9% 250 ml @ 125 mls/hr IVPB Q16H NONA Rx#:[id number] Intake, IV Titration 250 Amount Vancomycin 1,500 mg In 250 Sodium Chloride 0.9% 250 ml @ 125 mls/hr IVPB Q16H NONA Rx#:[id number] Oral 300 100 Output: Urine 1570 1630 1000 Other: Voiding Method Indwelling Catheter Indwelling Catheter Indwelling Catheter - Exam Patient on 80% oxygen 15 L aerosolized saturation is 90% to 92% - Constitutional General appearance: average body habitus, mild distress, restless intermittently agitated - EENT Ears: bilateral: normal - Neck Carotids: bilateral: upstroke normal Thyroid: bilateral: normal size - Respiratory Respiratory: bilateral: diminished - Cardiovascular Rhythm: regular Heart sounds: normal: S1, S2 - Gastrointestinal General gastrointestinal: normal bowel sounds Patient is relatively more awake and alert compared to yesterday exam - Labs CBC & Chem 7: 04/13/20 04:00 04/13/20 04:00 Labs: Abnormal Lab Results - Last 24 Hours (Table) 04/10/20 04/10/20 04/10/20 Range/Units 06:59 12:47 17:06 Hgb (11.4-16.0) gm/dL RDW (11.5-15.5) % Neutrophils # (1.3-7.7) k/uL Lymphocytes # (1.0-4.8) k/uL Sodium (137-145) mmol/L Creatinine (0.52-1.04) mg/dL Glucose (74-99) mg/dL POC Glucose (mg/dL) 166 H 141 H 147 H (75-99) mg/dL Calcium (8.4-10.2) mg/dL 04/10/20 04/11/20 04/11/20 Range/Units 20:58 07:22 11:30 Hgb (11.4-16.0) gm/dL RDW (11.5-15.5) % Neutrophils # (1.3-7.7) k/uL Lymphocytes # (1.0-4.8) k/uL Sodium (137-145) mmol/L Creatinine (0.52-1.04) mg/dL Glucose (74-99) mg/dL POC Glucose (mg/dL) 139 H 215 H 140 H (75-99) mg/dL Calcium (8.4-10.2) mg/dL 04/11/20 04/11/20 04/12/20 Range/Units 17:02 20:17 07:33 Hgb (11.4-16.0) gm/dL RDW (11.5-15.5) % Neutrophils # (1.3-7.7) k/uL Lymphocytes # (1.0-4.8) k/uL Sodium (137-145) mmol/L Creatinine (0.52-1.04) mg/dL Glucose (74-99) mg/dL POC Glucose (mg/dL) 150 H 124 H 154 H (75-99) mg/dL Calcium (8.4-10.2) mg/dL 04/12/20 04/12/20 04/12/20 Range/Units 08:04 11:50 17:08 Hgb (11.4-16.0) gm/dL RDW (11.5-15.5) % Neutrophils # (1.3-7.7) k/uL Lymphocytes # (1.0-4.8) k/uL Sodium (137-145) mmol/L Creatinine (0.52-1.04) mg/dL Glucose (74-99) mg/dL POC Glucose (mg/dL) 142 H 141 H 156 H (75-99) mg/dL Calcium (8.4-10.2) mg/dL 04/12/20 04/13/20 04/13/20 Range/Units 20:52 04:00 04:00 Hgb 11.3 L (11.4-16.0) gm/dL RDW 17.7 H (11.5-15.5) % Neutrophils # 9.3 H (1.3-7.7) k/uL Lymphocytes # 0.2 L (1.0-4.8) k/uL Sodium 135 L (137-145) mmol/L Creatinine 0.50 L (0.52-1.04) mg/dL Glucose 170 H (74-99) mg/dL POC Glucose (mg/dL) 116 H (75-99) mg/dL Calcium 7.9 L (8.4-10.2) mg/dL 04/13/20 04/13/20 04/13/20 Range/Units 06:46 07:42 11:45 Hgb (11.4-16.0) gm/dL RDW (11.5-15.5) % Neutrophils # (1.3-7.7) k/uL Lymphocytes # (1.0-4.8) k/uL Sodium (137-145) mmol/L Creatinine (0.52-1.04) mg/dL Glucose (74-99) mg/dL POC Glucose (mg/dL) 172 H 162 H 124 H (75-99) mg/dL Calcium (8.4-10.2) mg/dL Microbiology - Last 24 Hours (Table) 04/09/20 03:43 Blood Culture - Preliminary Blood No Growth after 96 hours 04/12/20 11:00 Urine Culture - Preliminary Urine,Catheterized 04/07/20 15:30 Blood Culture - Preliminary Blood No Growth after 120 hours 04/07/20 15:40 Blood Culture Gram Stain - Final Blood Blood Culture - Final Enterococcus faecalis Coagulase Negative Staph Assessment and Plan Assessment: Hypertensive urgency, antihypertensive being adjusted Gram-positive bacteremia found to be group D enterococcus patient is on vancomycin Agitated delirium along with metabolic encephalopathy likely multifactorial including Covid 19 pneumonia, is being in ICU, for intubation long period time sepsis, slowly improving Acute hypoxic respiratory failure Covid19 pneumonia Acute pneumonia bacterial bilateral healthcare associated patient is being monitored off of antibiotics now Thrombocytopenia stable Acute respiratory and metabolic acidosis Acute hepatitis/elevated liver enzymes Acute diastolic heart failure Chronic anemia Fibromyalgia Hypertension hypertensive cardiovascular disease Plan: Continue supportive care, avoid benzodiazepine, continue monitor patient's rem ains on high flow and also aerosolized oxygen, closely once FiO2 down to nasal cannula will move her out of ICU with that we'll help the delirium as well continue IV vancomycin Monitor intake and output closely keep on even a negative side Patient remains on partial nonrebreather mask was slowly titrate oxygen down as tolerated Trend liver enzymes Patient is not a candidate for IV REMdesivir due to markedly elevated liver enzymes IV steroids, continued to taper in next 24 hours will bring it down to once a day Further recommendations pending plan of care as per clinical response of patient Continue anticoagulation with Lovenox Time with Patient: Greater than 30
[2020-04-13] MEDS: HALOPERIDOL LACTATE 5 MG/ML 1 ML VIAL IVP PRN (16:26)
[2020-04-13] MEDS: HYDROmorphone 1 MG/ML 1 ML SYRINGE IVP PRN (16:44)
[2020-04-13 16:55] LABS: Glucose,Whole Blood 141 mg/dL (75-99)
--- NOTE | 2020-04-13 17:56 | PN ---
PROGRESS NOTE DATE OF SERVICE: 04/13/2020 REASON FOR FOLLOWUP: Bacteremia, UTI. INTERVAL HISTORY: The patient is currently afebrile. Patient is feeling better, breathing comfortably, still requiring high-flow nasal oxygen. Denies any chest pain. Occasional cough. No vomiting or diarrhea. PHYSICAL EXAMINATION: Blood pressure 156/70 with a pulse of 78, temperature 98.7. She is 93% on high- flow oxygen. General description is an elderly female lying in bed in no distress. Respiratory system: Unlabored breathing, decreased intensity of breath sounds, no wheeze. Heart S1, S2. Regular rate and rhythm. Abdomen soft, no tenderness. LABS: Hemoglobin 11.2, white count 9.7, BUN of 20, creatinine 0.50. DIAGNOSTIC IMPRESSION AND PLAN: Patient with Enterococcus faecalis bacteremia, possible abd versus urinary tract infection. Urine shows VRE, possible colonization. Repeat urine is negative. The patient clinically responded to vancomycin and Fluconazole, to continue as white count normalized and continue supportive care. MMODL / IJN: [id number] / MTDD
[2020-04-13 21:02] LABS: Glucose,Whole Blood 116 mg/dL (75-99)
[2020-04-13] MEDS: FLUCONAZOLE IN NACL,ISO-OSM 100 MG in SALINE 1 50ML.BAG IVPB SCH (21:16)
[2020-04-13] MEDS: AMITRIPTYLINE HCL 50 MG TAB PO SCH (21:16)
--- NOTE | 2020-04-13 23:09 | P.PN ---
Subjective This is a pleasant 69 years old female who has prolonged course in the hospital for more than 2 weeks where originally was admitted for worsening respiratory symptoms related to her covid 19 pneumonia, patient has been followed closely by pulmonary service and she remains on Lovenox, Solu-Medrol and IV hydration. However she still on 50 L of oxygen via high flow nasal cannula. Patient had swollen the problem but eventually found is able to swallow today and she was started on oral medication. Her blood pressure was on the high side and Norvasc increased to 5 mg twice daily and hydralazine to 75 mg 3 times a day. Also surgery team are following the case for acute blood loss for suspected GI bleed, they are planning to do EGD and colonoscopy once she is more clinically stable to tolerate such procedures Patient is also followed closely by ID team being covered by antibiotics with Diflucan and IV vancomycin for positive blood culture with enterococcus faecalis with coagulase-negative staph, suspected to be related to IV PICC line which was discontinued went and tip was sent for culture which is still pending If her enzymes were initially elevated on admission and due to her Covid infection and cholelithiasis, currently they are close to normal. Also patient found hemangioma rather than liver mass for GI team evaluation, however will need follow-up as an outpatient 04/11/20 pt remains in the ICU very tired and can not provide much information because of her general lethargy , she is awake and alert, in moderated resp distress. she is still on 50 L of oxygen and saturation is 88-92%. Urine culture is growing enterococcus, similar to blood culture. Possible UTI. Patient remains on of vancomycin as per ID team WBC is slightly down at 12 K. 04/12/2020 Patient still feels tired, she is awake and follows commands however she cannot talk a lot because of her respiratory distress although is still looks somewhat better than yesterday. Also CXR: diffuse bilateral airspace disease shows some improvement from prior.possible small left effussion she still saturates 92-93% on 50 Liter/min of oxygen. decrease iv fluid to 50 ml/hr she remains on iv vancomycin and fluconazole, with lovenox 40 mg BID and protonix 40 mg BID and solumedrol 40 mg BID 04/13/2020 Patient is still looks tired, she still 50 L oxygen via nasal cannula. Because she felt tired she can hardly talk. Also she looks depressed and down and not H Sanchez and complaining of from constipation. However no nausea vomiting. No abdominal pain or tenderness. WBC is back to normal today at 10.7 K. BMP is unremarkable with normal creatinine and sugar control Zoloft and amitriptyline were added to help her mood. She remains on IV vancomycin and fluconazole with ID team and pulmonary team on the case Her blood pressure is better control after adding Norvasc 5 mg twice daily and decrease and hydralazine to 75 mg 3 times a day Patient cleared by pulmonary/critical care team service to go to a Med[facility] floor CONSTITUTIONAL: No fever, no malaise, no fatigue. HEENT: No recent visual problems or hearing problems. Denied any sore throat. CARDIOVASCULAR: No orthopnea, PND, no palpitations, no syncope. PULMONARY: No chest wall tenderness, no hemoptysis. GASTROINTESTINAL: No diarrhea, no nausea, no vomiting, no abdominal pain. Normoactive bowel sounds. NEUROLOGICAL: No headaches, no weakness, no numbness. Active Medications Generic Name Dose Route Start Last Admin Trade Name Freq PRN Reason Stop Dose Admin Acetaminophen 1,000 mg 03/25/20 12:20 Acetaminophen Tab 500 Mg Tab PO Q6HR PRN Fever>101 Alprazolam 0.25 mg 04/09/20 11:57 04/12/20 21:00 Alprazolam 0.25 Mg Tab PO 0.25 mg QID PRN Administration Anxiety Amitriptyline HCl 50 mg 04/13/20 21:00 04/13/20 21:16 Amitriptyline Hcl 50 Mg Tab PO 50 mg HS NONA Administration Amlodipine Besylate 5 mg 04/10/20 21:00 04/13/20 21:16 Amlodipine 5 Mg Tab PO 5 mg BID NONA Administration Ascorbic Acid 500 mg 03/25/20 21:00 04/13/20 21:16 Ascorbic Acid 500 Mg Tab PO 500 mg BID NONA Administration Cholecalciferol 400 unit 03/26/20 09:00 04/13/20 08:46 Cholecalciferol 400 Unit Tab PO 400 unit DAILY NONA Administration Enoxaparin Sodium 40 mg 03/29/20 21:00 04/13/20 21:17 Enoxaparin 40 Mg/0.4 Ml Syringe SQ 40 mg BID NONA Administration Haloperidol Lactate 2.5 mg 04/07/20 20:16 04/13/20 16:26 Haloperidol Lactate 5 Mg/Ml 1 Ml Vial IVP 2.5 mg Q8HR PRN Administration Agitation or Acute Psychosis Hydralazine HCl 75 mg 04/10/20 16:00 04/13/20 21:16 Hydralazine Hcl 25 Mg Tab PO 75 mg TID NONA Administration Hydromorphone HCl 1 mg 04/11/20 18:31 04/13/20 16:44 Hydromorphone 1 Mg/Ml 1 Ml Syringe IVP 1 mg Q2H PRN Administration Pain Sodium Chloride 1,000 mls @ 50 mls/hr 03/26/20 05:15 04/13/20 07:09 Saline 0.9% IV 50 mls/hr .Q20H NONA Administration Fluconazole/Sodium Chloride 50 mls @ 50 mls/hr 04/05/20 21:00 04/13/20 21:16 100 mg/ IV Solution IVPB 50 mls/hr HS NONA Administration Vancomycin HCl 1,500 mg/ 250 mls @ 125 mls/hr 04/13/20 00:00 04/13/20 15:46 Sodium Chloride IVPB 125 mls/hr Q16H NONA Administration Insulin Aspart 0 unit 04/09/20 17:45 04/13/20 21:17 Insulin Aspart (Novolog) 100 Unit/Ml Vial SQ Not Given ACHS [facility] Protocol Methylprednisolone Sodium Succinate 40 mg 04/06/20 21:00 04/13/20 21:15 Methylprednisolone Sod Succi 40 Mg/Ml 1 Ml Vial IV 40 mg Q12HR NONA Administration Naloxone HCl 0.2 mg 03/25/20 23:09 Naloxone 0.4 Mg/Ml 1 Ml Vial IV Q2M PRN Opioid Reversal Pantoprazole Sodium 40 mg 03/25/20 21:45 04/13/20 21:16 Pantoprazole 40 Mg/10 Ml Vial IVP 40 mg BID NONA Administration Ropinirole HCl 1 mg 04/13/20 16:00 04/13/20 21:16 Ropinirole Hcl 1 Mg Tab PO 1 mg TID NONA Administration Senna 8.6 mg 04/13/20 12:55 04/13/20 15:46 Sennosides 8.6 Mg Tab PO 8.6 mg BID PRN Administration Constipation Sertraline HCl 150 mg 04/13/20 13:00 04/13/20 13:20 Sertraline 100 Mg Tab PO 150 mg DAILY NONA Administration Sodium Chloride 10 ml 03/28/20 15:26 Sodium Chloride 0.9% Flush 10 Ml Syringe IV Q4HR PRN PICC Line Sodium Chloride 10 ml 04/04/20 09:00 04/11/20 08:49 Sodium Chloride 0.9% Flush 10 Ml Syringe IV 10 ml WEEKLY NONA Administration Sodium Chloride 20 ml 03/28/20 15:26 Sodium Chloride 0.9% Flush 10 Ml Syringe IV Q4HR PRN PICC Line Zinc Sulfate 220 mg 03/26/20 09:00 04/13/20 08:46 Zinc Sulfate 220 Mg Cap PO 220 mg DAILY NONA Administration Objective - Vital Signs Vital signs: Vital Signs Temp 97.8 F 04/13/20 20:00 Pulse 67 04/13/20 22:00 Resp 22 04/13/20 22:00 BP 143/76 04/13/20 22:00 Pulse Ox 95 04/13/20 22:00 Intake & Output 04/13/20 04/13/20 04/14/20 06:59 18:59 06:59 Intake Total 900 850 200 Output Total 1630 1275 260 Balance -730 -425 -60 Weight 83 kg Intake: IV 900 500 200 Fluconazole in NaCl,Iso- 50 50 Osm 100 mg In Saline 1 50ml.bag @ 50 mls/hr IVPB HS [facility] Rx#:[id number] Sodium Chloride 0.9% 1, 600 500 150 000 ml @ 50 mls/hr IV . Q20H NONA Rx#:[id number] Vancomycin 1,500 mg In 250 Sodium Chloride 0.9% 250 ml @ 125 mls/hr IVPB Q16H NONA Rx#:[id number] Intake, IV Titration 250 Amount Vancomycin 1,500 mg In 250 Sodium Chloride 0.9% 250 ml @ 125 mls/hr IVPB Q16H NONA Rx#:[id number] Oral 100 Output: Urine 1630 1275 260 Other: Voiding Method Indwelling Catheter Indwelling Catheter Indwelling Catheter - Exam -GENERAL: The patient is alert and oriented x3, looks tired with general malaise. HEENT: Pupils are round and equally reacting to light. EOMI. No scleral icterus. No conjunctival pallor. Normocephalic, atraumatic. No pharyngeal erythema. No thyromegaly. CARDIOVASCULAR: S1 and S2 present. No murmurs, rubs, or gallops. -PULMONARY: Chest is clear to auscultation, bilateral expiratory wheezing . ABDOMEN: Soft, nontender, nondistended, normoactive bowel sounds. No palpable organomegaly. MUSCULOSKELETAL: No joint swelling or deformity. EXTREMITIES: No cyanosis, clubbing, or pedal edema. NEUROLOGICAL: Gross neurological examination did not reveal any focal deficits. SKIN: No rashes. no petechiae. - Labs CBC & Chem 7: 04/13/20 04:00 04/13/20 04:00 Labs: Abnormal Lab Results - Last 24 Hours (Table) 04/10/20 04/10/20 04/10/20 Range/Units 06:59 12:47 17:06 Hgb (11.4-16.0) gm/dL RDW (11.5-15.5) % Neutrophils # (1.3-7.7) k/uL Lymphocytes # (1.0-4.8) k/uL Sodium (137-145) mmol/L Creatinine (0.52-1.04) mg/dL Glucose (74-99) mg/dL POC Glucose (mg/dL) 166 H 141 H 147 H (75-99) mg/dL Calcium (8.4-10.2) mg/dL 04/10/20 04/11/20 04/11/20 Range/Units 20:58 07:22 11:30 Hgb (11.4-16.0) gm/dL RDW (11.5-15.5) % Neutrophils # (1.3-7.7) k/uL Lymphocytes # (1.0-4.8) k/uL Sodium (137-145) mmol/L Creatinine (0.52-1.04) mg/dL Glucose (74-99) mg/dL POC Glucose (mg/dL) 139 H 215 H 140 H (75-99) mg/dL Calcium (8.4-10.2) mg/dL 04/11/20 04/11/20 04/12/20 Range/Units 17:02 20:17 07:33 Hgb (11.4-16.0) gm/dL RDW (11.5-15.5) % Neutrophils # (1.3-7.7) k/uL Lymphocytes # (1.0-4.8) k/uL Sodium (137-145) mmol/L Creatinine (0.52-1.04) mg/dL Glucose (74-99) mg/dL POC Glucose (mg/dL) 150 H 124 H 154 H (75-99) mg/dL Calcium (8.4-10.2) mg/dL 04/12/20 04/12/20 04/12/20 Range/Units 08:04 11:50 17:08 Hgb (11.4-16.0) gm/dL RDW (11.5-15.5) % Neutrophils # (1.3-7.7) k/uL Lymphocytes # (1.0-4.8) k/uL Sodium (137-145) mmol/L Creatinine (0.52-1.04) mg/dL Glucose (74-99) mg/dL POC Glucose (mg/dL) 142 H 141 H 156 H (75-99) mg/dL Calcium (8.4-10.2) mg/dL 04/12/20 04/13/20 04/13/20 Range/Units 20:52 04:00 04:00 Hgb 11.3 L (11.4-16.0) gm/dL RDW 17.7 H (11.5-15.5) % Neutrophils # 9.3 H (1.3-7.7) k/uL Lymphocytes # 0.2 L (1.0-4.8) k/uL Sodium 135 L (137-145) mmol/L Creatinine 0.50 L (0.52-1.04) mg/dL Glucose 170 H (74-99) mg/dL POC Glucose (mg/dL) 116 H (75-99) mg/dL Calcium 7.9 L (8.4-10.2) mg/dL 04/13/20 04/13/20 04/13/20 Range/Units 06:46 07:42 11:45 Hgb (11.4-16.0) gm/dL RDW (11.5-15.5) % Neutrophils # (1.3-7.7) k/uL Lymphocytes # (1.0-4.8) k/uL Sodium (137-145) mmol/L Creatinine (0.52-1.04) mg/dL Glucose (74-99) mg/dL POC Glucose (mg/dL) 172 H 162 H 124 H (75-99) mg/dL Calcium (8.4-10.2) mg/dL 04/13/20 04/13/20 Range/Units 16:53 21:01 Hgb (11.4-16.0) gm/dL RDW (11.5-15.5) % Neutrophils # (1.3-7.7) k/uL Lymphocytes # (1.0-4.8) k/uL Sodium (137-145) mmol/L Creatinine (0.52-1.04) mg/dL Glucose (74-99) mg/dL POC Glucose (mg/dL) 141 H 116 H (75-99) mg/dL Calcium (8.4-10.2) mg/dL Microbiology - Last 24 Hours (Table) 04/12/20 11:00 Urine Culture - Preliminary Urine,Catheterized Group D Enterococcus 04/07/20 15:30 Blood Culture - Final Blood No Growth after 144 hours 04/09/20 03:43 Blood Culture - Preliminary Blood No Growth after 96 hours Assessment and Plan Assessment: Acute respiratory distress syndrome, Covid 19 pneumonia Acute hypoxic respiratory failure secondary to Covid 19 pneumonia, on high flow nasal cannula Positive blood culture with bacteremia with with Enterococcus faecalis and coagulase negative staph, secondary to PICC line Acute GI bleed, currently hemoglobin is stable Uncontrolled hypertension with urgency Elevated liver enzymes with cholelithiasis, improved and patient is asymptomatic history of Fibromyalgia Plan: This is a pleasant 69 years old female who was presenting with Covid pneumonia, GI bleed and positive blood culture with enterococcus and staph. Continue with antibiotic per ID team, currently she is on Diflucan and vancomycin, continue with Solu-Medrol and Lovenox. Continue with gentle hydration and IV Protonix. Continue with antihypertensive medication with Norvasc and hydralazine and titrate for better blood pressure control. Patient is followed by several consultants including pulmonary/critical care team, surgery team and infectious disease team Labs and medication were reviewed.. Continue same treatment. Continue with symptomatic treatment. Resume home medication. Monitor lytes and vitals. DVT and GI prophylaxis. Further recommendationsas per clinical course of the patient DVT prophylaxis: Subcutaneous Lovenox GI Prophylaxis: Ppi Prognosis is guarded
[2020-04-14 04:14] LABS: Anisocytosis Slight; HCT 35.7 % (34.0-46.0); HGB 11.4 gm/dL (11.4-16.0); Hypochromasia Marked; MCH 28.1 pg (25.0-35.0); Mean Platelet Volume 8.3; Platelet Count 231 k/uL (150-450); Poikilocytosis Slight; RBC 4.05 m/uL (3.80-5.40); RDW 17.4 % (11.5-15.5); WBC 10.4 k/uL (3.8-10.6)
[2020-04-14 04:24] LABS: African American GFR (CKD) >90 (>60 ml/min/1.73 sqM); Anion Gap 3 mmol/L; Blood Urea Nitrogen 13 mg/dL (7-17); Calcium 8.1 mg/dL (8.4-10.2); Carbon Dioxide 29 mmol/L (22-30); Chloride 101 mmol/L (98-107); Glucose 141 mg/dL (74-99); Non-African American GFR(CKD) >90 (>60 ml/min/1.73 sqM); Potassium 4.4 mmol/L (3.5-5.1); Sodium 133 mmol/L (137-145)
[2020-04-14] MEDS: HALOPERIDOL LACTATE 5 MG/ML 1 ML VIAL IVP PRN (04:41)
--- NOTE | 2020-04-14 06:19 | P.CONS ---
History of Present Illness - Chief Complaint Medical debility - History of Present Illness I had the opportunity to see patient for inpatient rehab consultation with regard to medical debility. She was admitted to [facility] March 25 with shortness of breath and 2 recent hospitalizations. Seen by Dr. rivera and Dr. robledo for elevated liver enzymes and possible GI bleed. Seen by Dr. Steiner for the covert pneumonia. Chest x-rays followed and note airspace disease and effusions. PT reports two-person total assistance for bed mobility. OT prescribed. Previous function history as elicited patient: 69-year-old right-handed white female who is lives in one floor home with . Works full-time. Indeed independent with cooking, laundry, driving, shower and gait without device. PMD Dr. Aleman. Review of Systems Review of systems: ENT: Denies sneezes or discharge. Eyes: Denies discharge or photophobia. Cardiac: Denies chest pain or palpitation. Pulmonary: shortness of breath. Breast: Denies discharge or lumps. Gastrointestinal: Denies nausea, emesis, constipation, diarrhea. Genitourinary: Denies discharge or frequency. Musculoskeletal: Denies muscle or bone aches. Neurologic: Generalized weakness. Endocrine: Denies shakes or sweats. Oncology: Denies cancers. Dermatologic: Denies rash, itching, pruritus. ALLERGY/immunology: Denies sneezes, rashes. Past Medical History Past Medical History: Hypertension, Thyroid Disorder Additional Past Medical History / Comment(s): chronic ANEMIA- pt gets iron trans. every 8-12 weeks for over 12 years. Pt has a hx of a sm ulcer History of Any Multi-Drug Resistant Organisms: None Reported Past Surgical History: Hysterectomy, Joint Replacement, Orthopedic Surgery Additional Past Surgical History / Comment(s): LEFT KNEE ARTHROSCOPIC, carpal tunnel, left knee replacement, laser eye surgery Past Anesthesia/Blood Transfusion Reactions: No Reported Reaction Smoking Status: Former smoker - Past Family History Mother Family Medical History: No Reported History Medications and Allergies Home Medications Medication Instructions Recorded Confirmed Type Sertraline [Zoloft] 150 mg PO DAILY 08/23/14 03/25/20 History lisinopriL [Zestril] 10 mg PO DAILY 08/12/16 03/25/20 History Amitriptyline HCl [Elavil] 50 mg PO HS 03/10/20 03/25/20 History Cyclobenzaprine [Flexeril] 10 mg PO TID PRN 03/10/20 03/25/20 History Levothyroxine Sodium 200 mcg PO DAILY 03/10/20 03/25/20 History Sennosides [Senna] 17.2 mg PO HS PRN 03/10/20 03/25/20 History amLODIPine [Norvasc] 5 mg PO DAILY 03/10/20 03/25/20 History rOPINIRole HCL [Requip] 1 mg PO TID 03/10/20 03/25/20 History Omeprazole [PriLOSEC] 20 mg PO AC-BRKFST #90 cap 03/11/20 03/25/20 Rx Aspirin 81 mg PO BID 17 Days #34 chewable 03/12/20 03/25/20 Rx Azithromycin [Zithromax] 500 mg PO DAILY #3 tab 03/19/20 03/25/20 Rx Ferrous Sulfate [Iron (65 MG 325 mg PO BID-W/MEALS #60 tab 03/19/20 03/25/20 Rx Elemental)] guaiFENesin-DM 100-10MG/5ML 10 ml PO Q6H PRN #200 ml 03/19/20 03/25/20 Rx [Robitussin DM] Allergies Allergy/AdvReac Type Severity Reaction Status Date / Time meperidine HCl [From Demerol] Allergy Rash/Hives Verified 03/25/20 11:11 Penicillins Allergy Rash/Hives Verified 03/25/20 11:11 Sulfa (Sulfonamide Allergy Rash/Hives Verified 03/25/20 11:11 Antibiotics) Physical Exam Vitals: Vital Signs Temp Pulse Resp BP Pulse Ox 04/14/20 06:00 93 15 152/78 89 L 04/14/20 05:00 95 9 L 135/87 83 L 04/14/20 04:00 98.3 F 84 10 L 141/91 89 L 04/14/20 03:36 95 04/14/20 03:00 77 14 123/63 92 L 04/14/20 02:00 63 13 143/70 95 04/14/20 01:00 65 12 102/63 94 L 04/14/20 00:02 64 12 102/63 94 L 04/14/20 00:00 98.2 F 64 12 138/69 94 L 04/13/20 23:42 95 04/13/20 23:00 66 13 133/69 95 04/13/20 22:00 67 22 143/76 95 04/13/20 21:00 68 11 L 123/76 95 04/13/20 20:00 97.8 F 69 11 L 134/69 95 04/13/20 19:00 71 14 146/72 95 04/13/20 18:00 70 14 129/73 95 04/13/20 17:00 78 22 141/81 93 L 04/13/20 16:00 98.6 F 82 17 155/83 91 L 04/13/20 15:18 93 L 04/13/20 15:00 78 15 156/78 95 04/13/20 14:00 81 28 H 158/82 93 L 04/13/20 13:00 80 28 H 165/82 93 L 04/13/20 12:22 92 L 04/13/20 12:00 98.7 F 84 23 155/83 91 L 04/13/20 11:00 80 25 H 157/82 92 L 04/13/20 10:00 75 23 157/80 94 L 04/13/20 09:00 78 24 158/83 94 L 04/13/20 08:00 98.6 F 87 24 157/80 92 L 04/13/20 07:00 86 28 H 157/81 93 L Intake and Output 04/13/20 04/13/20 04/14/20 14:59 22:59 06:59 Intake Total 500 550 400 Output Total 440 141 1832 Balance -400 -85 -720 Intake: IV 400 300 400 Fluconazole in NaCl,Iso- 50 Osm 100 mg In Saline 1 50ml.bag @ 50 mls/hr IVPB HS [facility] Rx#:[id number] Sodium Chloride 0.9% 1, 400 250 400 000 ml @ 50 mls/hr IV . Q20H NONA Rx#:[id number] Intake, IV Titration 250 Amount Vancomycin 1,500 mg In 250 Sodium Chloride 0.9% 250 ml @ 125 mls/hr IVPB Q16H NONA Rx#:[id number] Oral 100 Output: Urine 783 344 6564 Other: Voiding Method Indwelling Catheter Indwelling Catheter Indwelling Catheter Skin: Good color, texture, turgor. General: Medium build and comfortable appearance. Head: Normocephalic, atraumatic. Eyes: Symmetric. Pupils equal round. Ears: Symmetric. Hearing within normal limits. Mouth: Clear. Neck: Supple. Carotid without bruit. Cardiac: Regular rate and rhythm. Lungs: Receiving supplemental oxygen. Abdomen: Soft active nontender. Extremities: Normal tone. Neurological: Mental status: Alert, cooperative, pleasant. Cranial nerves: Symmetric facial tone and trapezius. Motor: Active movement all 4 limbs but less than antigravity throughout and poor left leg. Sensation: Intact throughout. DTRs: Symmetric and equal throughout. Mobility: Requires physical assist for bed mobility. Results CBC & Chem 7: 04/14/20 03:45 04/14/20 03:45 Labs: Abnormal Lab Results - Last 24 Hours (Table) 04/10/20 04/10/20 04/10/20 Range/Units 06:59 12:47 17:06 RDW (11.5-15.5) % Sodium (137-145) mmol/L Creatinine (0.52-1.04) mg/dL Glucose (74-99) mg/dL POC Glucose (mg/dL) 166 H 141 H 147 H (75-99) mg/dL Calcium (8.4-10.2) mg/dL 04/10/20 04/11/20 04/11/20 Range/Units 20:58 07:22 11:30 RDW (11.5-15.5) % Sodium (137-145) mmol/L Creatinine (0.52-1.04) mg/dL Glucose (74-99) mg/dL POC Glucose (mg/dL) 139 H 215 H 140 H (75-99) mg/dL Calcium (8.4-10.2) mg/dL 04/11/20 04/11/20 04/12/20 Range/Units 17:02 20:17 07:33 RDW (11.5-15.5) % Sodium (137-145) mmol/L Creatinine (0.52-1.04) mg/dL Glucose (74-99) mg/dL POC Glucose (mg/dL) 150 H 124 H 154 H (75-99) mg/dL Calcium (8.4-10.2) mg/dL 04/12/20 04/12/20 04/12/20 Range/Units 08:04 11:50 17:08 RDW (11.5-15.5) % Sodium (137-145) mmol/L Creatinine (0.52-1.04) mg/dL Glucose (74-99) mg/dL POC Glucose (mg/dL) 142 H 141 H 156 H (75-99) mg/dL Calcium (8.4-10.2) mg/dL 04/12/20 04/13/20 04/13/20 Range/Units 20:52 06:46 07:42 RDW (11.5-15.5) % Sodium (137-145) mmol/L Creatinine (0.52-1.04) mg/dL Glucose (74-99) mg/dL POC Glucose (mg/dL) 116 H 172 H 162 H (75-99) mg/dL Calcium (8.4-10.2) mg/dL 04/13/20 04/13/20 04/13/20 Range/Units 11:45 16:53 21:01 RDW (11.5-15.5) % Sodium (137-145) mmol/L Creatinine (0.52-1.04) mg/dL Glucose (74-99) mg/dL POC Glucose (mg/dL) 124 H 141 H 116 H (75-99) mg/dL Calcium (8.4-10.2) mg/dL 04/14/20 04/14/20 Range/Units 03:45 03:45 RDW 17.4 H (11.5-15.5) % Sodium 133 L (137-145) mmol/L Creatinine 0.48 L (0.52-1.04) mg/dL Glucose 141 H (74-99) mg/dL POC Glucose (mg/dL) (75-99) mg/dL Calcium 8.1 L (8.4-10.2) mg/dL Microbiology - Last 24 Hours (Table) 04/09/20 03:43 Blood Culture - Preliminary Blood No Growth after 120 hours 04/12/20 11:00 Urine Culture - Preliminary Urine,Catheterized Group D Enterococcus 04/07/20 15:30 Blood Culture - Final Blood No Growth after 144 hours Assessment and Plan (1) Acute respiratory distress syndrome Current Visit: Yes Status: Acute Code(s): J80 - ACUTE RESPIRATORY DISTRESS SYNDROME SNOMED Code(s): 12367314 (2) COVID-19 Current Visit: Yes Status: Acute Code(s): U07.1 - COVID-19 SNOMED Code(s): 810289043 (3) Elevated liver enzymes Current Visit: Yes Status: Acute Code(s): R74.8 - ABNORMAL LEVELS OF OTHER SERUM ENZYMES SNOMED Code(s): 121965363 (4) GI bleed Current Visit: Yes Status: Acute Code(s): K92.2 - GASTROINTESTINAL HEMORRHAGE, UNSPECIFIED SNOMED Code(s): 20854316 Plan: Impression: 1. Medical debility. 2. Covid pneumonia with acute respiratory failure. 3. GI bleed. 4. Fibromyalgia. 5. Hypertension. 6. Hypothyroid. Comments and plan: At this time PT and OT are ongoing. Patient currently with very poor endurance and having difficulty participating with therapy. We'll continue to follow with yourself.
[2020-04-14] MEDS: SODIUM CHLORIDE 0.9% 1,000 ML IV SCH ×2 (06:28→22:32)
[2020-04-14 07:18] LABS: Glucose,Whole Blood 181 mg/dL (75-99)
[2020-04-14] MEDS: INSULIN ASPART (NovoLOG) 100 UNIT/ML VIAL SQ SCH ×4 (07:32→21:28)
[2020-04-14] MEDS: ENOXAPARIN 40 MG/0.4 ML SYRINGE SQ SCH ×2 (08:28→21:10)
[2020-04-14] MEDS: ZINC SULFATE 220 MG CAP PO SCH (08:28)
[2020-04-14] MEDS: amLODIPine 5 MG TAB PO SCH ×2 (08:28→21:10)
[2020-04-14] MEDS: hydrALAZINE HCL 25 MG TAB PO SCH ×3 (08:28→22:29)
[2020-04-14] MEDS: ASCORBIC ACID 500 MG TAB PO SCH ×2 (08:28→21:10)
[2020-04-14] MEDS: SERTRALINE 100 MG TAB PO SCH (08:29)
[2020-04-14] MEDS: CHOLECALCIFEROL 400 UNIT TAB PO SCH (08:29)
[2020-04-14] MEDS: VANCOMYCIN 1,500 MG in SODIUM CHLORIDE 0.9% 250 ML IVPB SCH (08:30)
[2020-04-14] MEDS: PANTOPRAZOLE 40 MG/10 ML VIAL IVP SCH ×2 (08:30→21:11)
[2020-04-14] MEDS: methylPREDNISolone SOD SUCCI 40 MG/ML 1 ML VIAL IV SCH ×2 (08:30→21:10)
[2020-04-14] MEDS: HYDROmorphone 1 MG/ML 1 ML SYRINGE IVP PRN (10:26)
[2020-04-14 12:31] LABS: Glucose,Whole Blood 156 mg/dL (75-99)
--- NOTE | 2020-04-14 14:54 | P.PN ---
Subjective Progress Note Date: 04/14/20 Principal diagnosis: GI bleed Patient remains on high flow oxygen. No bloody stools. Tolerating diet. No abdominal pain. Hemoglobin is stable. Objective - Vital Signs Vital signs: Vital Signs Temp 98.3 F 04/14/20 12:00 Pulse 73 04/14/20 12:00 Resp 11 L 04/14/20 12:00 BP 140/77 04/14/20 12:00 Pulse Ox 95 04/14/20 12:00 Intake & Output 04/13/20 04/14/20 04/14/20 18:59 06:59 18:59 Intake Total 850 600 250 Output Total 1275 1380 750 Balance -425 -780 -500 Weight 82.1 kg 82.1 kg Intake: IV 500 600 250 Fluconazole in NaCl,Iso- 50 Osm 100 mg In Saline 1 50ml.bag @ 50 mls/hr IVPB HS [facility] Rx#:[id number] Sodium Chloride 0.9% 1, 500 550 250 000 ml @ 50 mls/hr IV . Q20H [facility] Rx#:[id number] Intake, IV Titration 250 Amount Vancomycin 1,500 mg In 250 Sodium Chloride 0.9% 250 ml @ 125 mls/hr IVPB Q16H [facility] Rx#:[id number] Oral 100 Output: Urine 1275 1380 750 Other: Voiding Method Indwelling Catheter Indwelling Catheter Indwelling Catheter - Exam Abdomen: Soft, nontender, nondistended - Labs CBC & Chem 7: 04/14/20 03:45 04/14/20 03:45 Labs: Abnormal Lab Results - Last 24 Hours (Table) 04/13/20 04/13/20 04/14/20 Range/Units 16:53 21:01 03:45 RDW 17.4 H (11.5-15.5) % Sodium (137-145) mmol/L Creatinine (0.52-1.04) mg/dL Glucose (74-99) mg/dL POC Glucose (mg/dL) 141 H 116 H (75-99) mg/dL Calcium (8.4-10.2) mg/dL 04/14/20 04/14/20 04/14/20 Range/Units 03:45 07:16 12:28 RDW (11.5-15.5) % Sodium 133 L (137-145) mmol/L Creatinine 0.48 L (0.52-1.04) mg/dL Glucose 141 H (74-99) mg/dL POC Glucose (mg/dL) 181 H 156 H (75-99) mg/dL Calcium 8.1 L (8.4-10.2) mg/dL Microbiology - Last 24 Hours (Table) 04/09/20 03:43 Blood Culture - Preliminary Blood No Growth after 120 hours 04/12/20 11:00 Urine Culture - Preliminary Urine,Catheterized Group D Enterococcus 04/07/20 15:30 Blood Culture - Final Blood No Growth after 144 hours Assessment and Plan (1) GI bleed Narrative/Plan: Patient with no evidence of GI bleed currently. Still recommend patient have upper and lower endoscopy when medically stable. We'll sign off. Please call with any difficulties. Current Visit: Yes Status: Acute Code(s): K92.2 - GASTROINTESTINAL HEMORRHAGE, UNSPECIFIED SNOMED Code(s): 06434369
[2020-04-14 16:21] LABS: Glucose,Whole Blood 166 mg/dL (75-99)
[2020-04-14 16:59] LABS: Glucose,Whole Blood 182 mg/dL (75-99)
--- NOTE | 2020-04-14 18:19 | P.PN ---
Subjective Progress Note Date: 04/14/20 Principal diagnosis: Acute hypoxic respiratory failure Covid19 pneumonia Acute respiratory and metabolic acidosis Acute hepatitis/elevated liver enzymes Acute diastolic heart failure and fluid overload Chronic anemia Fibromyalgia Hypertension hypertensive cardiovascular disease 04/14/2020, patient remains on 50% oxygen 70L, awake slightly confused, shortness of breath is not obvious hemodynamic status stable tolerating by mouth well patient will be moved out of the ICU when bed available 04/13/2020, patient seen eval examined during the rounds labs reviewed medicat ions reviewed care plan discussed with the staff, respiratory status remains stable continued to be on the 75% oxygen 15 L high flow, remains afebrile remains on antibiotics patient will be transferred to [facility] with remote telemetry date on today 04/12/2020, patient seen eval examined during rounds labs reviewed medications reviewed, respiratory status remains unchanged, patient remains on 15 L 75% oxygen unable to titrate oxygen down, appetite continued to improve, patient able to swallow well, labs reviewed medications reviewed care plan discussed with the staff at length, patient can be moved out to [facility] with remote telemetry 04/11/2020, patient seen eval examined during evaluation patient noted to be more awake and alert compared to prior exam however patient remains on 15 L 75% aerosolized oxygen high flow, no obvious distress present patient remains afebrile, remains on broad-spectrum antibiotics and usual care for coronary 19 pneumonia April 10 2020 patient seen eval examined sitting upright on the bed breathing comfortably, patient remains on high flow oxygen 15 L 75%, swallow evaluation completed patient able to swallow well will start by mouth blood pressure pr oblem remains an issue we will increase the dose of Norvasc continue oral hydralazine monitor blood pressure closely, absolute reviewed x-ray reviewed continued to show bilateral interstitial infiltrate predominantly in mid part and basis 04/09/2020, patient seen eval examined in the ICU, respiratory status remains marginal but stable, patient is on 80% aerosolized oxygen 15 L, saturation is 90%, more awake and alert, swallowing functions will be reassessed later on today by speech therapist, mental status changes agitated behavior and confusion remains an issue which causes blood pressure to go up as well, 04/08/2020, patient seen eval examined during the rounds labs reviewed medications reviewed care plan discussed, patient remains on BiPAP 15/5 with 70% oxygen, oxygen saturation 94% more awake alert, will try high flow aerosolized oxygen, blood culture positive for gram positive cocci in chain, patient is on IV vancomycin he is following 04/07/2020, patient seen eval examined during the rounds labs reviewed medications reviewed, mental status remains stable slightly improved however, patient intermittently get anxious and agitated, low-grade temperature 90 is present hemodynamically stable though, saturation is 90% to 93% on partial nonrebreather mask, chest x-ray remains stable, white cell count remains elevated, 04/06/2020, patient seen eval examined during the rounds labs reviewed medications reviewed, patient remains off of ventilator, mental status slightly better today compared to last 24-48 hours less agitated awake oriented 1 now, remains on partial nonrebreather mask, saturation is 94%, LAD pressure slightly running on the higher side remains on IV hydralazine, oxygen saturation is 94% to 96%, 04/05/2020, patient seen eval reexamined successfully weaned and extubated yesterday has been on supplemental oxygen 2-4 L, in the last 8-12 hours however decompensation in oxygenation status as well as patient even though awake but remains agitated appears to have a agitated delirium, does require Dilaudid at a regular interval, remains afebrile, oxygen saturation is 99% on 10 L nonrebreather mask, patient cannot take by mouth medicines are listed IV, will try morphine as needed DC Dilaudid, 04/04/2020, patient seen eval examined during the rounds labs reviewed medications reviewed care plan discussed, patient is awake now remains off of propofol since yesterday, does make intermittent eye contact, remains slightly withdrawn however, respiratory status stable, remains on assist control mode rate of 24, tidal volume is 450, +5 of PEEP, 40% oxygen, peak airway pressure stable, chest x-ray shows bilateral diffuse interstitial infiltrate stable ET tube and NG tube in PICC line, white cell count is 13,400, hemoglobin and hematocrit stable 9.4 and 31, arterial blood gases reviewed pH is 7.4 to pCO2 32 pO2 64, BUN/creatinine is 32 and 0.5, patient is reviewed Lovenox remains 2040 mg subcu twice a day on IV furosemide, Solu-Medrol is 60 mg IV every 6 we'll decrease it to every 12 04/03/2020, patient seen eval examined during rounds labs reviewed medications reviewed, care plan discussed, overall hemodynamically he remains stable blood pressure spiked up on hydralazine when necessary, seems to be helping, patient sedated with propofol drip 50 mics, attempts for weaning of protocol has been unsuccessful as patient becomes agitated, attempted Precedex drip has been unsuccessful as well, current vent settings include assist control rate of 24 breathing 24, FiO2 is 40%, PEEP is 5, tidal volume is 450, chest x-ray stable ET tube with bilateral multifocal infiltrate with consolidation consistent with cold with 19 pneumonia not essentially much change from the prior x-ray, ET tube and NG tube was stable, patient is getting tube feed bolus feeding, labs including ABG chemistry reviewed 04/02/2020, patient seen eval examined during the rounds labs reviewed medications reviewed care plan discussed, patient remains sedated with propofol on ventilator for full ventilator support, currently patient is on assist control mode rate Tuesday for breathing 24, tidal volume is 450, 5 of PEEP, 40% oxygen, propofol is 50 mics, chest x-ray from today reviewed continue show patchy bilateral infiltrate without any significant interval change, arterial blood gases revealed pH of 7.43 pCO2 32, C-reactive protein is down to 21, BUN/creatinine is 34/.49, white cell count and hemoglobin remained stable, medications reviewed, she remains on broad-spectrum antibiotic with cephapirin, Lovenox, gentle diuresis with Lasix, blood pressure control with IV hydralazine, patient remains on high-dose IV steroids, discussed with the staff at length, will stop the propofol drip and once patient is awake put on CPAP 5 pressure support of 5 gas after half an hour also check weaning parameters 04/01/2020, patient seen eval examined labs reviewed medications reviewed care plan discussed with the staff at length patient had a sedation holiday today she is arousable and awake follows simple commands with blood pressure went up becomes agitated anxious requiring a reinitiation of propofol drip, ventilator setting remains unchanged, patient is on rate of 24 tidal volume is 450, PEEP is 5, oxygen is 40%, chest x-ray from today reviewed remains overall stable with stable lines and tubes 03/31/2020, patient seen eval examined during the rounds labs reviewed medications reviewed care plan discussed, patient remains on full ventilator support, propofol was changed to Precedex but however patient becomes agitated so back on propofol when setting remains unchanged have been on assist control rate of 24, PEEP is 5, FiO2 is 40%, tidal volume of 450, care plan discussed with the staff at length critical care time 35 minutes 03/30/2020, patient seen eval examined during the rounds labs reviewed medications reviewed, remains sedated with propofol, current vent setting include his control rate of 24 breathing 24 tidal volume is 450, deep is 5 now, FiO2 is 40%, tolerating tube feed very well, chest x-ray reviewed slightly better but stable bilateral infiltrate consistent with atypical pneumonia, patient continued IVs very well with 20 mg Lasix daily, white cell count remained stable, with stable hemoglobin and however decreasing platelet count noted, dear blood gases revealed pH of 7.4 to pCO2 34 pO2 of 62, BUN/creatinine is 36 and 0.62, left he continue show downward trend, inflammatory markers reviewed still elevated but showing a downward trend 03/29/2020, patient seen eval examined during the rounds labs reviewed medications reviewed, care plan discussed with the nursing staff at length, patient has been on assist control rate of the 24 PEEP of 8 400 tidal volume 50% oxygen, ventilator has been adjusted with reduction in PEEP and oxygen, patient's saturation remained stable 91-92%, next step he is to stop propofol and reassess the mental status and if patient remains stable oxygen randolph and hemodynamics can do a CPAP pressure support trial in the meantime we'll continue IV steroids, antibiotics, CBC and ABG reviewed, today's chest x-ray showed bilateral interstitial infiltrate, predominantly at the bases, patient has been on Lasix 20 mg daily diuresing very well, critical care time 35 minutes 03/28/2020, patient seen eval examined during the rounds labs reviewed medications reviewed care plan discussed oxygen has been down to 40% now. The patient is PEEP of 8, otherwise ventilator setting remains stable, patient is scheduled for PICC line later on today, remains on propofol, remains on broad- spectrum antibiotics, labs from today has been reviewed hemoglobin is stable 7.9, d-dimer is 3.24, arterial blood gases stable pH is 7.41 pCO2 35 pO2 96, BUN/creatinine is 51 and 1.05, ferritin level remains more than 26,000, AST ALT continued decline however today is 367 and 558, C-reactive protein checked 69.5 her chest x-ray earlier than today remains there however appears to have slightly progressed 03/27/2020, patient seen eval examined during the rounds labs reviewed medications reviewed care plan discussed, propofol has been discontinued patient because very restless and anxious, we'll restart propofol, patient has been on full ventilator support assist control 24 tidal volume of 450, PEEP is 10, oxy gen is 70%, arterial blood gases reviewed when lower the FiO2 to 60% now plan to bring down the FiO2 to 50% and PEEP of 8 next 24 hours, sputum and blood cultures reviewed no growth so far, chest x-ray performed today reviewed significant improvement in infiltrates seen bilaterally, patient has a poor urine output throughout the night, 20 mg of Lasix was given put out 600 mL of urine patient continued to be on gentle hydration, remain on cefapime and Vanco, Lovenox Solu-Medrol multivitamin and vitamin C zinc and Lovenox, white cell count is stable 10,500 hemoglobin and hematocrit 7.2 and 24, general surgery has been following patient is considered to get EGD and colonoscopy once stable, art erial blood gas revealed pH of 7.39 pCO2 of 39 pO2 of 124, bicarb 25, liver enzymes continue to come down AST and ALT now is 944/809, hepatitis panel normal and nonreactive 03/26/2020, patient seen eval examined in the ICU care plan discussed with the staff, FiO2 has been down to 60%, patient remains on assist control tidal volume of 450, PEEP is 10, respiratory rate is 24 breathing with the respirator pH has been improved significantly, patient is making adequate urine chest x-ray compared with yesterday's x-ray some improvement have been noted, white cell count is 11,000, hemoglobin 7.9 which is stable, arterial blood gas improved to 7.39, pCO2 of 40, pO2 112, BUN/creatinine is 33/0.96, lactic acid was 5.9 down to 1.3 now, ferritin level noted to be 12,800, AST and ALT are 4014 100 with LDH over 21,500, today LFTs significantly improved AST is down to 2795 and ALT is 1222, pro calcitonin is 0.84, suspect some component of heart failure as well as pneumonia, will get an echocardiogram as well as start patient on broad-spectrum antibiotics with cefepime and Vanco Patient seen and evaluated examined in the emergency department, patient came into the ER from the office of Dr. Aleman due to progressive shortness of breath, patient has acute on chronic hypoxic respiratory failure on 4 L oxygen, also has issues associated with pneumonia presumed to be cold with 19, however, testing was negative, patient used to smoke in the remote past quit about 20-30 years ago due to severity or shortness of breath and hypoxia with saturation of 76% on 100% oxygen and respiratory distress patient was intubated due to poor tolerance on BiPAP, patient Covid testing came back positive, chest x-ray showing diffuse infiltrate she also has been noted to have elevated liver enzymes due to elevated liver enzymes will not start IV REMdesivir, Initial ABG pH is 7.18, pCO2 is 63 pO2 was only 33 Objective - Vital Signs Vital signs: Vital Signs Temp 98.3 F 04/14/20 12:00 Pulse 94 04/14/20 15:00 Resp 26 H 04/14/20 15:00 BP 142/72 04/14/20 15:00 Pulse Ox 90 L 04/14/20 15:00 Intake & Output 04/13/20 04/14/20 04/14/20 18:59 06:59 18:59 Intake Total 850 600 400 Output Total 1275 1380 1075 Balance -425 -897 -676 Weight 82.1 kg 82.1 kg Intake: IV 500 600 400 Fluconazole in NaCl,Iso- 50 Osm 100 mg In Saline 1 50ml.bag @ 50 mls/hr IVPB HS NONA Rx#:[id number] Sodium Chloride 0.9% 1, 500 550 400 000 ml @ 50 mls/hr IV . Q20H NONA Rx#:[id number] Intake, IV Titration 250 Amount Vancomycin 1,500 mg In 250 Sodium Chloride 0.9% 250 ml @ 125 mls/hr IVPB Q16H NONA Rx#:[id number] Oral 100 Output: Urine 1275 1380 1075 Other: Voiding Method Indwelling Catheter Indwelling Catheter Indwelling Catheter - Exam Patient on 80% oxygen 15 L aerosolized saturation is 90% to 92% - Constitutional General appearance: average body habitus, mild distress, restless intermittently agitated - EENT Ears: bilateral: normal - Neck Carotids: bilateral: upstroke normal Thyroid: bilateral: normal size - Respiratory Respiratory: bilateral: diminished - Cardiovascular Rhythm: regular Heart sounds: normal: S1, S2 - Gastrointestinal General gastrointestinal: normal bowel sounds Patient is relatively more awake and alert compared to yesterday exam - Labs CBC & Chem 7: 04/14/20 03:45 04/14/20 03:45 Labs: Abnormal Lab Results - Last 24 Hours (Table) 04/13/20 04/14/20 04/14/20 Range/Units 21:01 03:45 03:45 RDW 17.4 H (11.5-15.5) % Sodium 133 L (137-145) mmol/L Creatinine 0.48 L (0.52-1.04) mg/dL Glucose 141 H (74-99) mg/dL POC Glucose (mg/dL) 116 H (75-99) mg/dL Calcium 8.1 L (8.4-10.2) mg/dL 04/14/20 04/14/20 04/14/20 Range/Units 07:16 12: 16:20 RDW (11.5-15.5) % Sodium (137-145) mmol/L Creatinine (0.52-1.04) mg/dL Glucose (74-99) mg/dL POC Glucose (mg/dL) 181 H 156 H 166 H (75-99) mg/dL Calcium (8.4-10.2) mg/dL 04/14/20 Range/Units 16:58 RDW (11.5-15.5) % Sodium (137-145) mmol/L Creatinine (0.52-1.04) mg/dL Glucose (74-99) mg/dL POC Glucose (mg/dL) 182 H (75-99) mg/dL Calcium (8.4-10.2) mg/dL Microbiology - Last 24 Hours (Table) 04/09/20 03:43 Blood Culture - Preliminary Blood No Growth after 120 hours 04/12/20 11:00 Urine Culture - Preliminary Urine,Catheterized Group D Enterococcus 04/07/20 15:30 Blood Culture - Final Blood No Growth after 144 hours Assessment and Plan Assessment: Hypertensive urgency, antihypertensive being adjusted Gram-positive bacteremia found to be group D enterococcus patient is on vancomycin Agitated delirium along with metabolic encephalopathy likely multifactorial including Covid 19 pneumonia, is being in ICU, for intubation long period time sepsis, slowly improving Acute hypoxic respiratory failure Covid19 pneumonia Acute pneumonia bacterial bilateral healthcare associated patient is being monit ored off of antibiotics now Thrombocytopenia stable Acute respiratory and metabolic acidosis Acute hepatitis/elevated liver enzymes Acute diastolic heart failure Chronic anemia Fibromyalgia Hypertension hypertensive cardiovascular disease Plan: Continue supportive care, avoid benzodiazepine, continue monitor patient's remains on high flow and also aerosolized oxygen, closely once FiO2 down to nasal cannula will move her out of ICU with that we'll help the delirium as well continue IV vancomycin Monitor intake and output closely keep on even a negative side Patient remains on partial nonrebreather mask was slowly titrate oxygen down as tolerated Trend liver enzymes Patient is not a candidate for IV REMdesivir due to markedly elevated liver enzymes IV steroids, continued to taper in next 24 hours will bring it down to once a day Further recommendations pending plan of care as per clinical response of patient Continue anticoagulation with Lovenox Time with Patient: Greater than 30
--- NOTE | 2020-04-14 19:27 | P.PN ---
Subjective This is a pleasant 69 years old female who has prolonged course in the hospital for more than 2 weeks where originally was admitted for worsening respiratory symptoms related to her covid 19 pneumonia, patient has been followed closely by pulmonary service and she remains on Lovenox, Solu-Medrol and IV hydration. However she still on 50 L of oxygen via high flow nasal cannula. Patient had swollen the problem but eventually found is able to swallow today and she was started on oral medication. Her blood pressure was on the high side and Norvasc increased to 5 mg twice daily and hydralazine to 75 mg 3 times a day. Also surgery team are following the case for acute blood loss for suspected GI bleed, they are planning to do EGD and colonoscopy once she is more clinically stable to tolerate such procedures Patient is also followed closely by ID team being covered by antibiotics with Diflucan and IV vancomycin for positive blood culture with enterococcus faecalis with coagulase-negative staph, suspected to be related to IV PICC line which was discontinued went and tip was sent for culture which is still pending If her enzymes were initially elevated on admission and due to her Covid infection and cholelithiasis, currently they are close to normal. Also patient found hemangioma rather than liver mass for GI team evaluation, however will need follow-up as an outpatient 04/11/20 pt remains in the ICU very tired and can not provide much information because of her general lethargy , she is awake and alert, in moderated resp distress. she is still on 50 L of oxygen and saturation is 88-92%. Urine culture is growing enterococcus, similar to blood culture. Possible UTI. Patient remains on of vancomycin as per ID team WBC is slightly down at 12 K. 04/12/2020 Patient still feels tired, she is awake and follows commands however she cannot talk a lot because of her respiratory distress although is still looks somewhat better than yesterday. Also CXR: diffuse bilateral airspace disease shows some improvement from prior.possible small left effussion she still saturates 92-93% on 50 Liter/min of oxygen. decrease iv fluid to 50 ml/hr she remains on iv vancomycin and fluconazole, with lovenox 40 mg BID and protonix 40 mg BID and solumedrol 40 mg BID 04/13/2020 Patient is still looks tired, she still 50 L oxygen via nasal cannula. Because she felt tired she can hardly talk. Also she looks depressed and down and not H Sanchez and complaining of from constipation. However no nausea vomiting. No abdominal pain or tenderness. WBC is back to normal today at 10.7 K. BMP is unremarkable with normal creatinine and sugar control Zoloft and amitriptyline were added to help her mood. She remains on IV vancomycin and fluconazole with ID team and pulmonary team on the case Her blood pressure is better control after adding Norvasc 5 mg twice daily and decrease and hydralazine to 75 mg 3 times a day Patient cleared by pulmonary/critical care team service to go to a [facility] floor 04/06/2020 Patient with bilateral Covid pneumonia, with positive blood culture for enterococcus and staph On Diflucan and IV vancomycin by ID team, also she receiving treatment with Solu-Medrol and Lovenox and Protonix. Patient is gr adually improving, However she still on need HIGH-dose of oxygen at 50 L via high flow nasal cannula saturating 90-92%, patient seems slowly to progress or improve Today patient is out of bed to chair. Patient still looks tired. Labs reviewed, her WBC is back to normal since yesterday. BMP is unremarkable patient is been followed closely by pulmonary team who recommended transferring out of the ICU pending bed availability Surgery on the case for possible GI bleed, hemoglobin and vitals are stable with planned for endoscopy with EGD and colonoscopy when stable with Dr. Henry CONSTITUTIONAL: No fever, no malaise, no fatigue. HEENT: No recent visual problems or hearing problems. Denied any sore throat. CARDIOVASCULAR: No orthopnea, PND, no palpitations, no syncope. PULMONARY: No chest wall tenderness, no hemoptysis. GASTROINTESTINAL: No diarrhea, no nausea, no vomiting, no abdominal pain. Normoactive bowel sounds. NEUROLOGICAL: No headaches, no weakness, no numbness. Active Medications Generic Name Dose Route Start Last Admin Trade Name Freq PRN Reason Stop Dose Admin Acetaminophen 1,000 mg 03/25/20 12:20 Acetaminophen Tab 500 Mg Tab PO Q6HR PRN Fever>101 Alprazolam 0.25 mg 04/09/20 11:57 04/12/20 21:00 Alprazolam 0.25 Mg Tab PO 0.25 mg QID PRN Administration Anxiety Amitriptyline HCl 50 mg 04/13/20 21:00 04/13/20 21:16 Amitriptyline Hcl 50 Mg Tab PO 50 mg HS NONA Administration Amlodipine Besylate 5 mg 04/10/20 21:00 04/14/20 08:28 Amlodipine 5 Mg Tab PO 5 mg BID NONA Administration Ascorbic Acid 500 mg 03/25/20 21:00 04/14/20 08:28 Ascorbic Acid 500 Mg Tab PO 500 mg BID NONA Administration Cholecalciferol 400 unit 03/26/20 09:00 04/14/20 08:29 Cholecalciferol 400 Unit Tab PO 400 unit DAILY NONA Administration Enoxaparin Sodium 40 mg 03/29/20 21:00 04/14/20 08:28 Enoxaparin 40 Mg/0.4 Ml Syringe SQ 40 mg BID NONA Administration Fluconazole 100 mg 04/14/20 21:00 Fluconazole 100 Mg Tab PO HS NONA Haloperidol Lactate 2.5 mg 04/07/20 20:16 04/14/20 04:41 Haloperidol Lactate 5 Mg/Ml 1 Ml Vial IVP 2.5 mg Q8HR PRN Administration Agitation or Acute Psychosis Hydralazine HCl 75 mg 04/10/20 16:00 04/14/20 16:49 Hydralazine Hcl 25 Mg Tab PO 75 mg TID NONA Administration Hydromorphone HCl 1 mg 04/11/20 18:31 04/14/20 10:26 Hydromorphone 1 Mg/Ml 1 Ml Syringe IVP 1 mg Q2H PRN Administration Pain Sodium Chloride 1,000 mls @ 50 mls/hr 03/26/20 05:15 04/14/20 06:28 Saline 0.9% IV Not Given .Q20H NONA Vancomycin HCl 1,500 mg/ 250 mls @ 125 mls/hr 04/13/20 00:00 04/14/20 08:30 Sodium Chloride IVPB 125 mls/hr Q16H NONA Administration Insulin Aspart 0 unit 04/09/20 17:45 04/14/20 12:33 Insulin Aspart (Novolog) 100 Unit/Ml Vial SQ 3 unit ACHS NONA Administration Protocol Methylprednisolone Sodium Succinate 40 mg 04/06/20 21:00 04/14/20 08:30 Methylprednisolone Sod Succi 40 Mg/Ml 1 Ml Vial IV 40 mg Q12HR NONA Administration Miscellaneous Information 0 each 04/15/20 15:00 Vancomycin Trough Due 1 Each Misc MISCELLANE 04/15/20 15:01 DIRECTED ONE Naloxone HCl 0.2 mg 03/25/20 23:09 Naloxone 0.4 Mg/Ml 1 Ml Vial IV Q2M PRN Opioid Reversal Pantoprazole Sodium 40 mg 03/25/20 21:45 04/14/20 08:30 Pantoprazole 40 Mg/10 Ml Vial IVP 40 mg BID NONA Administration Ropinirole HCl 1 mg 04/13/20 16:00 04/14/20 16:50 Ropinirole Hcl 1 Mg Tab PO 1 mg TID NONA Administration Senna 8.6 mg 04/13/20 12:55 04/13/20 15:46 Sennosides 8.6 Mg Tab PO 8.6 mg BID PRN Administration Constipation Sertraline HCl 150 mg 04/13/20 13:00 04/14/20 08:29 Sertraline 100 Mg Tab PO 150 mg DAILY NONA Administration Sodium Chloride 10 ml 03/28/20 15:26 Sodium Chloride 0.9% Flush 10 Ml Syringe IV Q4HR PRN PICC Line Sodium Chloride 10 ml 04/04/20 09:00 04/11/20 08:49 Sodium Chloride 0.9% Flush 10 Ml Syringe IV 10 ml WEEKLY NONA Administration Sodium Chloride 20 ml 03/28/20 15:26 Sodium Chloride 0.9% Flush 10 Ml Syringe IV Q4HR PRN PICC Line Zinc Sulfate 220 mg 03/26/20 09:00 04/14/20 08:28 Zinc Sulfate 220 Mg Cap PO 220 mg DAILY NONA Administration Objective - Vital Signs Vital signs: Vital Signs Temp 98 F 04/14/20 08:00 Pulse 73 04/14/20 11:00 Resp 12 04/14/20 11:00 BP 152/84 04/14/20 11:00 Pulse Ox 96 04/14/20 11:00 Intake & Output 04/13/20 04/14/20 04/14/20 18:59 06:59 18:59 Intake Total 850 600 250 Output Total 1275 1380 750 Balance -425 -780 -500 Weight 82.1 kg Intake: IV 500 600 250 Fluconazole in NaCl,Iso- 50 Osm 100 mg In Saline 1 50ml.bag @ 50 mls/hr IVPB HS NONA Rx#:[id number] Sodium Chloride 0.9% 1, 500 550 250 000 ml @ 50 mls/hr IV . Q20H NONA Rx#:[id number] Intake, IV Titration 250 Amount Vancomycin 1,500 mg In 250 Sodium Chloride 0.9% 250 ml @ 125 mls/hr IVPB Q16H [facility] Rx#:[id number] Oral 100 Output: Urine 1275 1380 750 Other: Voiding Method Indwelling Catheter Indwelling Catheter Indwelling Catheter - Exam -GENERAL: The patient is alert and oriented x3, looks tired with general malaise. HEENT: Pupils are round and equally reacting to light. EOMI. No scleral icterus. No conjunctival pallor. Normocephalic, atraumatic. No pharyngeal erythema. No thyromegaly. CARDIOVASCULAR: S1 and S2 present. No murmurs, rubs, or gallops. -PULMONARY: Chest is clear to auscultation, bilateral expiratory wheezing . ABDOMEN: Soft, nontender, nondistended, normoactive bowel sounds. No palpable organomegaly. MUSCULOSKELETAL: No joint swelling or deformity. EXTREMITIES: No cyanosis, clubbing, or pedal edema. NEUROLOGICAL: Gross neurological examination did not reveal any focal deficits. SKIN: No rashes. no petechiae. - Labs CBC & Chem 7: 04/14/20 03:45 04/14/20 03:45 Labs: Abnormal Lab Results - Last 24 Hours (Table) 04/13/20 04/13/20 04/14/20 Range/Units 16:53 21:01 03:45 RDW 17.4 H (11.5-15.5) % Sodium (137-145) mmol/L Creatinine (0.52-1.04) mg/dL Glucose (74-99) mg/dL POC Glucose (mg/dL) 141 H 116 H (75-99) mg/dL Calcium (8.4-10.2) mg/dL 04/14/20 04/14/20 Range/Units 03:45 07:16 RDW (11.5-15.5) % Sodium 133 L (137-145) mmol/L Creatinine 0.48 L (0.52-1.04) mg/dL Glucose 141 H (74-99) mg/dL POC Glucose (mg/dL) 181 H (75-99) mg/dL Calcium 8.1 L (8.4-10.2) mg/dL Microbiology - Last 24 Hours (Table) 04/09/20 03:43 Blood Culture - Preliminary Blood No Growth after 120 hours 04/12/20 11:00 Urine Culture - Preliminary Urine,Catheterized Group D Enterococcus 04/07/20 15:30 Blood Culture - Final Blood No Growth after 144 hours Assessment and Plan Assessment: Acute respiratory distress syndrome, Covid 19 pneumonia Acute hypoxic respiratory failure secondary to Covid 19 pneumonia, on high flow nasal cannula Positive blood culture with bacteremia with with Enterococcus faecalis and coagulase negative staph, secondary to PICC line Acute GI bleed, currently hemoglobin is stable Uncontrolled hypertension with urgency Elevated liver enzymes with cholelithiasis, improved and patient is asymptomatic history of Fibromyalgia Plan: This is a pleasant 69 years old female who was presenting with Covid pneumonia, GI bleed and positive blood culture with enterococcus and staph. Continue with antibiotic per ID team, currently she is on Diflucan and vancomycin, continue with Solu-Medrol and Lovenox. Continue with gentle hydration and IV Protonix. Continue with antihypertensive medication with Norvasc and hydralazine and titrate for better blood pressure control. Patient is followed by several consultants including pulmonary/critical care team, surgery team and infectious disease team Labs and medication were reviewed.. Continue same treatment. Continue with symptomatic treatment. Resume home medication. Monitor lytes and vitals. DVT and GI prophylaxis. Further recommendationsas per clinical course of the patient DVT prophylaxis: Subcutaneous Lovenox GI Prophylaxis: Ppi Prognosis is guarded
[2020-04-14] MEDS: AMITRIPTYLINE HCL 50 MG TAB PO SCH (21:10)
[2020-04-14] MEDS: FLUCONAZOLE 100 MG TAB PO SCH (21:11)
[2020-04-14 21:19] LABS: Glucose,Whole Blood 110 mg/dL (75-99)
[2020-04-14] MEDS: DAPTOmycin 500 MG in SODIUM CHLORIDE 0.9% 50 ML IVPB SCH (22:29)
--- NOTE | 2020-04-14 22:34 | PN ---
PROGRESS NOTE DATE OF SERVICE: 04/14/2020 REASON FOR FOLLOWUP: Enterococcus faecalis bacteremia and VRE UTI. INTERVAL HISTORY: The patient is currently afebrile. The patient is breathing comfortably. Denies having any chest pain or any cough. No abdominal pain or diarrhea. PHYSICAL EXAMINATION: Blood pressure 144/73 with a pulse of 81, temperature 97.8. She is 95% on high- flow oxygen. General description is an elderly female lying in bed in no distress. RESPIRATORY SYSTEM: Unlabored breathing with decreased intensity of breath sounds. No wheeze. HEART: S1, S2. Regular rate and rhythm. ABDOMEN: Soft. No tenderness. LABS: Repeat urine also showing VRE. DIAGNOSTIC IMPRESSION AND PLAN: Patient with Enterococcus faecalis bacteremia, now with evidence of persistent vancomycin-resistant Enterococcus. Antibiotic will be adjusted to the daptomycin and the patient's clinical course will be monitored closely. Continue with supportive care. ANATOLIY / YUNGN: [id number] / MTDD
[2020-04-15 06:47] LABS: Anisocytosis Slight; HCT 36.2 % (34.0-46.0); HGB 11.4 gm/dL (11.4-16.0); Hypochromasia Marked; MCH 27.9 pg (25.0-35.0); MCHC 31.5 g/dL (31.0-37.0); MCV 88.7 fL (80.0-100.0); Mean Platelet Volume 8.6; Platelet Count 186 k/uL (150-450); Poikilocytosis Slight; RBC 4.08 m/uL (3.80-5.40); RDW 17.6 % (11.5-15.5); WBC 9.8 k/uL (3.8-10.6)
[2020-04-15 07:20] LABS: Glucose,Whole Blood 153 mg/dL (75-99)
[2020-04-15 07:31] LABS: African American GFR (CKD) >90 (>60 ml/min/1.73 sqM); Anion Gap 5 mmol/L; Blood Urea Nitrogen 13 mg/dL (7-17); Calcium 8.2 mg/dL (8.4-10.2); Carbon Dioxide 26 mmol/L (22-30); Chloride 101 mmol/L (98-107); Glucose 173 mg/dL (74-99); Non-African American GFR(CKD) >90 (>60 ml/min/1.73 sqM); Sodium 132 mmol/L (137-145)
[2020-04-15] MEDS: SERTRALINE 100 MG TAB PO SCH (08:43)
[2020-04-15] MEDS: INSULIN ASPART (NovoLOG) 100 UNIT/ML VIAL SQ SCH ×4 (08:44→21:53)
[2020-04-15] MEDS: hydrALAZINE HCL 25 MG TAB PO SCH ×3 (08:44→21:53)
[2020-04-15] MEDS: ZINC SULFATE 220 MG CAP PO SCH (08:44)
[2020-04-15] MEDS: amLODIPine 5 MG TAB PO SCH ×2 (08:44→21:53)
[2020-04-15] MEDS: CHOLECALCIFEROL 400 UNIT TAB PO SCH (08:44)
[2020-04-15] MEDS: ASCORBIC ACID 500 MG TAB PO SCH ×2 (08:44→21:53)
[2020-04-15] MEDS: PANTOPRAZOLE 40 MG/10 ML VIAL IVP SCH (08:45)
[2020-04-15] MEDS: ENOXAPARIN 40 MG/0.4 ML SYRINGE SQ SCH ×2 (08:45→21:54)
[2020-04-15] MEDS: methylPREDNISolone SOD SUCCI 40 MG/ML 1 ML VIAL IV SCH ×2 (08:45→21:54)
--- NOTE | 2020-04-15 10:13 | P.PN ---
Subjective Progress Note Date: 04/15/20 Principal diagnosis: Acute hypoxic respiratory failure Covid19 pneumonia Acute respiratory and metabolic acidosis Acute hepatitis/elevated liver enzymes Acute diastolic heart failure and fluid overload Chronic anemia Fibromyalgia Hypertension hypertensive cardiovascular disease 04/15/2020, patient seen eval examined during the rounds labs reviewed medications reviewed care plan discussed, patient remains on high flow oxygen 15 L 70% oxygen saturation remains marginal low 90s to high 80s previously today noted to be 94%, patient has been tolerating by mouth well, has been moved down from the ICU labs from today reviewed slight hyponatremia noted otherwise fairly within normal limit patient remains on Lovenox along with daptomycin fluconazole, IV steroids, patient has finished usual therapy for covid19 pneumonia 04/14/2020, patient remains on 50% oxygen 70L, awake slightly confused, shortness of breath is not obvious hemodynamic status stable tolerating by mouth well patient will be moved out of the ICU when bed available 04/13/2020, patient seen eval examined during the rounds labs reviewed medications reviewed care plan discussed with the staff, respiratory status remains stable continued to be on the 75% oxygen 15 L high flow, remains afebrile remains on antibiotics patient will be transferred to [facility] [place] with remote telemetry date on today 04/12/2020, patient seen eval examined during rounds labs reviewed medications reviewed, respiratory status remains unchanged, patient remains on 15 L 75% oxygen unable to titrate oxygen down, appetite continued to improve, patient able to swallow well, labs reviewed medications reviewed care plan discussed with the staff at length, patient can be moved out to [facility] [place] with remote telemetry 04/11/2020, patient seen eval examined during evaluation patient noted to be more awake and alert compared to prior exam however patient remains on 15 L 75% aerosolized oxygen high flow, no obvious distress present patient remains afebrile, remains on broad-spectrum antibiotics and usual care for coronary 19 pneumonia April 10 2020 patient seen eval examined sitting upright on the bed breathing comfortably, patient remains on high flow oxygen 15 L 75%, swallow evaluation completed patient able to swallow well will start by mouth blood pressure problem remains an issue we will increase the dose of Norvasc continue oral hydralazine monitor blood pressure closely, absolute reviewed x-ray reviewed continued to show bilateral interstitial infiltrate predominantly in mid part and basis 04/09/2020, patient seen eval examined in the ICU, respiratory status remains marginal but stable, patient is on 80% aerosolized oxygen 15 L, saturation is 90%, more awake and alert, swallowing functions will be reassessed later on today by speech therapist, mental status changes agitated behavior and confusion remains an issue which causes blood pressure to go up as well, 04/08/2020, patient seen eval examined during the rounds labs reviewed medications reviewed care plan discussed, patient remains on BiPAP 15/5 with 70% oxygen, oxygen saturation 94% more awake alert, will try high flow aerosolized oxygen, blood culture positive for gram positive cocci in chain, patient is on IV vancomycin he is following 04/07/2020, patient seen eval examined during the rounds labs reviewed medications reviewed, mental status remains stable slightly improved however, patient intermittently get anxious and agitated, low-grade temperature 90 is present hemodynamically stable though, saturation is 90% to 93% on partial nonrebreather mask, chest x-ray remains stable, white cell count remains elevated, 04/06/2020, patient seen eval examined during the rounds labs reviewed medications reviewed, patient remains off of ventilator, mental status slightly better today compared to last 24-48 hours less agitated awake oriented 1 now, remains on partial nonrebreather mask, saturation is 94%, LAD pressure slightly running on the higher side remains on IV hydralazine, oxygen saturation is 94% to 96%, 04/05/2020, patient seen eval reexamined successfully weaned and extubated yesterday has been on supplemental oxygen 2-4 L, in the last 8-12 hours however decompensation in oxygenation status as well as patient even though awake but remains agitated appears to have a agitated delirium, does require Dilaudid at a regular interval, remains afebrile, oxygen saturation is 99% on 10 L nonrebreather mask, patient cannot take by mouth medicines are listed IV, will try morphine as needed DC Dilaudid, 04/04/2020, patient seen eval examined during the rounds labs reviewed medications reviewed care plan discussed, patient is awake now remains off of propofol since yesterday, does make intermittent eye contact, remains slightly withdrawn however, respiratory status stable, remains on assist control mode rate of 24, tidal volume is 450, +5 of PEEP, 40% oxygen, peak airway pressure stable, chest x-ray shows bilateral diffuse interstitial infiltrate stable ET tube and NG tube in PICC line, white cell count is 13,400, hemoglobin and hematocrit stable 9.4 and 31, arterial blood gases reviewed pH is 7.4 to pCO2 32 pO2 64, BUN/creatinine is 32 and 0.5, patient is reviewed Lovenox remains 2040 mg subcu twice a day on IV furosemide, Solu-Medrol is 60 mg IV every 6 we'll decrease it to every 12 04/03/2020, patient seen eval examined during rounds labs reviewed medications reviewed, care plan discussed, overall hemodynamically he remains stable blood pressure spiked up on hydralazine when necessary, seems to be helping, patient sedated with propofol drip 50 mics, attempts for weaning of protocol has been unsuccessful as patient becomes agitated, attempted Precedex drip has been unsuccessful as well, current vent settings include assist control rate of 24 breathing 24, FiO2 is 40%, PEEP is 5, tidal volume is 450, chest x-ray stable ET tube with bilateral multifocal infiltrate with consolidation consistent with cold with 19 pneumonia not essentially much change from the prior x-ray, ET tube and NG tube was stable, patient is getting tube feed bolus feeding, labs including ABG chemistry reviewed 04/02/2020, patient seen eval examined during the rounds labs reviewed medications reviewed care plan discussed, patient remains sedated with propofol on ventilator for full ventilator support, currently patient is on assist control mode rate Tuesday for breathing 24, tidal volume is 450, 5 of PEEP, 40% o xygen, propofol is 50 mics, chest x-ray from today reviewed continue show patchy bilateral infiltrate without any significant interval change, arterial blood gases revealed pH of 7.43 pCO2 32, C-reactive protein is down to 21, BUN/creatinine is 34/.49, white cell count and hemoglobin remained stable, medications reviewed, she remains on broad-spectrum antibiotic with cephapirin, Lovenox, gentle diuresis with Lasix, blood pressure control with IV hydralazine, patient remains on high-dose IV steroids, discussed with the staff at length, will stop the propofol drip and once patient is awake put on CPAP 5 pressure support of 5 gas after half an hour also check weaning parameters 04/01/2020, patient seen eval examined labs reviewed medications reviewed care plan discussed with the staff at length patient had a sedation holiday today she is arousable and awake follows simple commands with blood pressure went up becomes agitated anxious requiring a reinitiation of propofol drip, ventilator s etting remains unchanged, patient is on rate of 24 tidal volume is 450, PEEP is 5, oxygen is 40%, chest x-ray from today reviewed remains overall stable with stable lines and tubes 03/31/2020, patient seen eval examined during the rounds labs reviewed medications reviewed care plan discussed, patient remains on full ventilator support, propofol was changed to Precedex but however patient becomes agitated so back on propofol when setting remains unchanged have been on assist control rate of 24, PEEP is 5, FiO2 is 40%, tidal volume of 450, care plan discussed with the staff at length critical care time 35 minutes 03/30/2020, patient seen eval examined during the rounds labs reviewed medicati ons reviewed, remains sedated with propofol, current vent setting include his control rate of 24 breathing 24 tidal volume is 450, deep is 5 now, FiO2 is 40%, tolerating tube feed very well, chest x-ray reviewed slightly better but stable bilateral infiltrate consistent with atypical pneumonia, patient continued IVs very well with 20 mg Lasix daily, white cell count remained stable, with stable hemoglobin and however decreasing platelet count noted, dear blood gases revealed pH of 7.4 to pCO2 34 pO2 of 62, BUN/creatinine is 36 and 0.62, left he continue show downward trend, inflammatory markers reviewed still elevated but showing a downward trend 03/29/2020, patient seen eval examined during the rounds labs reviewed medications reviewed, care plan discussed with the nursing staff at length, patient has been on assist control rate of the 24 PEEP of 8 400 tidal volume 50% oxygen, ventilator has been adjusted with reduction in PEEP and oxygen, patient's saturation remained stable 91-92%, next step he is to stop propofol and reassess the mental status and if patient remains stable oxygen randolph and hemodynamics can do a CPAP pressure support trial in the meantime we'll continue IV steroids, antibiotics, CBC and ABG reviewed, today's chest x-ray showed bilateral interstitial infiltrate, predominantly at the bases, patient has been on Lasix 20 mg daily diuresing very well, critical care time 35 minutes 03/28/2020, patient seen eval examined during the rounds labs reviewed medicatio ns reviewed care plan discussed oxygen has been down to 40% now. The patient is PEEP of 8, otherwise ventilator setting remains stable, patient is scheduled for PICC line later on today, remains on propofol, remains on broad-spectrum antibiotics, labs from today has been reviewed hemoglobin is stable 7.9, d-dimer is 3.24, arterial blood gases stable pH is 7.41 pCO2 35 pO2 96, BUN/creatinine is 51 and 1.05, ferritin level remains more than 26,000, AST ALT continued decline however today is 367 and 558, C-reactive protein checked 69.5 her chest x-ray earlier than today remains there however appears to have slightly progressed 03/27/2020, patient seen eval examined during the rounds labs reviewed medications reviewed care plan discussed, propofol has been discontinued patient because very restless and anxious, we'll restart propofol, patient has been on full ventilator support assist control 24 tidal volume of 450, PEEP is 10, oxygen is 70%, arterial blood gases reviewed when lower the FiO2 to 60% now plan to bring down the FiO2 to 50% and PEEP of 8 next 24 hours, sputum and blood cu ltures reviewed no growth so far, chest x-ray performed today reviewed significant improvement in infiltrates seen bilaterally, patient has a poor urine output throughout the night, 20 mg of Lasix was given put out 600 mL of urine patient continued to be on gentle hydration, remain on cefapime and Vanco, Lovenox Solu-Medrol multivitamin and vitamin C zinc and Lovenox, white cell count is stable 10,500 hemoglobin and hematocrit 7.2 and 24, general surgery has been following patient is considered to get EGD and colonoscopy once stable, arterial blood gas revealed pH of 7.39 pCO2 of 39 pO2 of 124, bicarb 25, liver enzymes continue to come down AST and ALT now is 944/809, hepatitis panel normal and nonreactive 03/26/2020, patient seen eval examined in the ICU care plan discussed with the phill cedillo, FiO2 has been down to 60%, patient remains on assist control tidal volume of 450, PEEP is 10, respiratory rate is 24 breathing with the respirator pH has been improved significantly, patient is making adequate urine chest x-ray compared with yesterday's x-ray some improvement have been noted, white cell count is 11,000, hemoglobin 7.9 which is stable, arterial blood gas improved to 7.39, pCO2 of 40, pO2 112, BUN/creatinine is 33/0.96, lactic acid was 5.9 down to 1.3 now, ferritin level noted to be 12,800, AST and ALT are 4014 100 with LDH over 21,500, today LFTs significantly improved AST is down to 2795 and ALT is 1222, pro calcitonin is 0.84, suspect some component of heart failure as well as pneumonia, will get an echocardiogram as well as start patient on broad-spectrum antibiotics with cefepime and Vanco Patient seen and evaluated examined in the emergency department, patient came into the ER from the office of Dr. Aleman due to progressive shortness of breath, patient has acute on chronic hypoxic respiratory failure on 4 L oxygen, also has issues associated with pneumonia presumed to be cold with 19, however, testing was negative, patient used to smoke in the remote past quit about 20-30 years ago due to severity or shortness of breath and hypoxia with saturation of 76% on 100% oxygen and respiratory distress patient was intubated due to poor tolerance on BiPAP, patient Covid testing came back positive, chest x-ray showing diffuse infiltrate she also has been noted to have elevated liver enzymes due to elevated liver enzymes will not start IV REMdesivir, Initial ABG pH is 7.18, pCO2 is 63 pO2 was only 33 Objective - Vital Signs Vital signs: Vital Signs Temp 97.5 F L 04/15/20 04:48 Pulse 84 04/15/20 04:48 Resp 20 04/15/20 04:48 BP 164/76 04/15/20 04:48 Pulse Ox 94 L 04/15/20 04:48 Intake & Output 04/14/20 04/15/20 04/15/20 18:59 06:59 18:59 Intake Total 400 100 Output Total 1075 1951 Balance -896 -7874 Weight 82.1 kg 76 kg Intake: IV 400 50 Sodium Chloride 0.9% 1, 400 50 000 ml @ 50 mls/hr IV . Q20H [facility] Rx#:[id number] Oral 50 Output: Urine 1075 1951 Other: Voiding Method Indwelling Catheter Indwelling Catheter - Exam Patient on 80% oxygen 15 L aerosolized saturation is 90% to 92% - Constitutional General appearance: average body habitus, mild distress, restless intermittently agitated - EENT Ears: bilateral: normal - Neck Carotids: bilateral: upstroke normal Thyroid: bilateral: normal size - Respiratory Respiratory: bilateral: diminished - Cardiovascular Rhythm: regular Heart sounds: normal: S1, S2 - Gastrointestinal General gastrointestinal: normal bowel sounds Patient is relatively more awake and alert compared to yesterday exam - Labs CBC & Chem 7: 04/15/20 05:49 04/15/20 05:49 Labs: Abnormal Lab Results - Last 24 Hours (Table) 04/14/20 04/14/20 04/14/20 Range/Units 12: 16:20 16:58 RDW (11.5-15.5) % Sodium (137-145) mmol/L Creatinine (0.52-1.04) mg/dL Glucose (74-99) mg/dL POC Glucose (mg/dL) 156 H 166 H 182 H (75-99) mg/dL Calcium (8.4-10.2) mg/dL 04/14/20 04/15/20 04/15/20 Range/Units 21:17 05:49 05:49 RDW 17.6 H (11.5-15.5) % Sodium 132 L (137-145) mmol/L Creatinine 0.48 L (0.52-1.04) mg/dL Glucose 173 H (74-99) mg/dL POC Glucose (mg/dL) 110 H (75-99) mg/dL Calcium 8.2 L (8.4-10.2) mg/dL 04/15/20 Range/Units 07:18 RDW (11.5-15.5) % Sodium (137-145) mmol/L Creatinine (0.52-1.04) mg/dL Glucose (74-99) mg/dL POC Glucose (mg/dL) 153 H (75-99) mg/dL Calcium (8.4-10.2) mg/dL Microbiology - Last 24 Hours (Table) 04/12/20 11:00 Urine Culture - Final Urine,Catheterized Enterococcus faecium VRE 04/09/20 03:43 Blood Culture - Final Blood No Growth after 144 hours Assessment and Plan Assessment: Hypertensive urgency, antihypertensive being adjusted Gram-positive bacteremia found to be group D enterococcus patient is on vancomycin Agitated delirium along with metabolic encephalopathy likely multifactorial including Covid 19 pneumonia, is being in ICU, for intubation long period time sepsis, slowly improving Acute hypoxic respiratory failure Covid19 pneumonia Acute pneumonia bacterial bilateral healthcare associated patient is being monitored off of antibiotics now Thrombocytopenia stable Acute respiratory and metabolic acidosis Acute hepatitis/elevated liver enzymes Acute diastolic heart failure Chronic anemia Fibromyalgia Hypertension hypertensive cardiovascular disease Plan: Continue supportive care, avoid benzodiazepine, continue monitor patient's remains on high flow and also aerosolized oxygen, closely once FiO2 down to nasal cannula will move her out of ICU with that we'll help the delirium as well continue IV vancomycin Monitor intake and output closely keep on even a negative side Patient remains on partial nonrebreather mask was slowly titrate oxygen down as tolerated Trend liver enzymes Patient is not a candidate for IV REMdesivir due to markedly elevated liver enzymes IV steroids, continued to taper in next 24 hours will bring it down to once a day Further recommendations pending plan of care as per clinical response of patient Continue anticoagulation with Lovenox Time with Patient: Greater than 30
[2020-04-15 11:37] LABS: Glucose,Whole Blood 148 mg/dL (75-99)
[2020-04-15] MEDS ORDERED: VANCOMYCIN TROUGH DUE 1 EACH MISC MISCELLANE ONE (15:00)
--- NOTE | 2020-04-15 16:48 | P.PN ---
Subjective Progress Note Date: 04/15/20 This is a pleasant 69 years old female who has prolonged course in the hospital for more than 2 weeks where originally was admitted for worsening respiratory symptoms related to her covid 19 pneumonia, patient has been followed closely by pulmonary service and she remains on Lovenox, Solu-Medrol and IV hydration. However she still on 50 L of oxygen via high flow nasal cannula. Patient had swollen the problem but eventually found is able to swallow today and she was started on oral medication. Her blood pressure was on the high side and Norvasc increased to 5 mg twice daily and hydralazine to 75 mg 3 times a day. Also surgery team are following the case for acute blood loss for suspected GI bleed, they are planning to do EGD and colonoscopy once she is more clinically stable to tolerate such procedures Patient is also followed closely by ID team being covered by antibiotics with Diflucan and IV vancomycin for positive blood culture with enterococcus faecalis with coagulase-negative staph, suspected to be related to IV PICC line which was discontinued went and tip was sent for culture which is still pending If her enzymes were initially elevated on admission and due to her Covid infection and cholelithiasis, currently they are close to normal. Also patient found hemangioma rather than liver mass for GI team evaluation, however will need follow-up as an outpatient 04/15/2020 Patient is seen and evaluated in follow-up on a medical surgical unit and being closely monitored. Patient remains on Airvo at 50 L and oxygenation continues to be very slow to respond. Pulmonary is following closely along with infectious disease. Patient remains on IV antibiotics in the form of daptomycin as urine cultures finalized showing enterococcus faecium VRE. Surgery following as needed and recommending endoscopy intervention once patient is more stable. The bleeding noted at this time. Hemoglobin is stable at 11.4. Sodium 132, potassium is 4.0, current creatinine is 0.48. Patient's oral intake continues to be poor and needs strong encouragement along with one-to-one supervision and is maintained on dysphagia level III chopped diet. She has no appetite at all. She continues on Lovenox along with vitamin C, vitamin D, zinc supplements, and IV steroids and will continue at this time. PT/OT to evaluate the patient as she continues to be quite weak requiring assistance. Review of systems: Constitutional: Reports fatigue Cardiovascular: No reports of chest pain or palpitations Respiratory: Reports continued shortness of breath GI: No reports of nausea, vomiting, or diarrhea, reports poor appetite : No reports of dysuria or retention Neurovascular: reports weakness All medications have been reviewed Active Medications Acetaminophen (Acetaminophen Tab 500 Mg Tab) 1,000 mg PO Q6HR PRN PRN Reason: Fever>101 Alprazolam (Alprazolam 0.25 Mg Tab) 0.25 mg PO QID PRN PRN Reason: Anxiety Last Admin: 04/12/20 21:00 Dose: 0.25 mg Documented by: Amitriptyline HCl (Amitriptyline Hcl 50 Mg Tab) 50 mg PO HS [facility] Last Admin: 04/14/20 21:10 Dose: 50 mg Documented by: Amlodipine Besylate (Amlodipine 5 Mg Tab) 5 mg PO BID [facility] Last Admin: 04/15/20 08:44 Dose: 5 mg Documented by: Ascorbic Acid (Ascorbic Acid 500 Mg Tab) 500 mg PO BID [facility] Last Admin: 04/15/20 08:44 Dose: 500 mg Documented by: Cholecalciferol (Cholecalciferol 400 Unit Tab) 400 unit PO DAILY [facility] Last Admin: 04/15/20 08:44 Dose: 400 unit Documented by: Enoxaparin Sodium (Enoxaparin 40 Mg/0.4 Ml Syringe) 40 mg SQ BID [facility] Last Admin: 04/15/20 08:45 Dose: 40 mg Documented by: Fluconazole (Fluconazole 100 Mg Tab) 100 mg PO HS [facility] Last Admin: 04/14/20 21:11 Dose: 100 mg Documented by: Haloperidol Lactate (Haloperidol Lactate 5 Mg/Ml 1 Ml Vial) 2.5 mg IVP Q8HR PRN PRN Reason: Agitation or Acute Psychosis Last Admin: 04/14/20 04:41 Dose: 2.5 mg Documented by: Hydralazine HCl (Hydralazine Hcl 25 Mg Tab) 75 mg PO TID [facility] Last Admin: 04/15/20 15:50 Dose: 75 mg Documented by: Hydromorphone HCl (Hydromorphone 1 Mg/Ml 1 Ml Syringe) 1 mg IVP Q2H PRN PRN Reason: Pain Last Admin: 04/14/20 10:26 Dose: 1 mg Documented by: Sodium Chloride (Saline 0.9%) 1,000 mls @ 50 mls/hr IV .Q20H [facility] Last Admin: 04/14/20 22:32 Dose: 50 mls/hr Documented by: Daptomycin 500 mg/ Sodium (Chloride) 50 mls @ 100 mls/hr IVPB Q24H [facility]; Protocol Last Admin: 04/14/20 22:29 Dose: 100 mls/hr Documented by: Insulin Aspart (Insulin Aspart (Novolog) 100 Unit/Ml Vial) 0 unit SQ ACHS [facility]; Protocol Last Admin: 04/15/20 13:13 Dose: 2 unit Documented by: Methylprednisolone Sodium Succinate (Methylprednisolone Sod Succi 40 Mg/Ml 1 Ml Vial) 40 mg IV Q12HR [facility] Last Admin: 04/15/20 08:45 Dose: 40 mg Documented by: Naloxone HCl (Naloxone 0.4 Mg/Ml 1 Ml Vial) 0.2 mg IV Q2M PRN PRN Reason: Opioid Reversal Pantoprazole Sodium (Pantoprazole 40 Mg Tablet) 40 mg PO BID [facility] Ropinirole HCl (Ropinirole Hcl 1 Mg Tab) 1 mg PO TID [facility] Last Admin: 04/15/20 15:50 Dose: 1 mg Documented by: Senna (Sennosides 8.6 Mg Tab) 8.6 mg PO BID PRN PRN Reason: Constipation Last Admin: 04/13/20 15:46 Dose: 8.6 mg Documented by: Sertraline HCl (Sertraline 100 Mg Tab) 150 mg PO DAILY [facility] Last Admin: 04/15/20 08:43 Dose: 150 mg Documented by: Sodium Chloride (Sodium Chloride 0.9% Flush 10 Ml Syringe) 10 ml IV Q4HR PRN PRN Reason: PICC Line Sodium Chloride (Sodium Chloride 0.9% Flush 10 Ml Syringe) 10 ml IV WEEKLY [facility] Last Admin: 04/11/20 08:49 Dose: 10 ml Documented by: Sodium Chloride (Sodium Chloride 0.9% Flush 10 Ml Syringe) 20 ml IV Q4HR PRN PRN Reason: PICC Line Zinc Sulfate (Zinc Sulfate 220 Mg Cap) 220 mg PO DAILY [facility] Last Admin: 04/15/20 08:44 Dose: 220 mg Documented by: Objective - Vital Signs Vital signs: Vital Signs Temp 97.7 F 04/15/20 11:00 Pulse 86 04/15/20 11:00 Resp 18 04/15/20 11:00 BP 152/77 04/15/20 11:00 Pulse Ox 92 L 04/15/20 15:07 Intake & Output 04/14/20 04/15/20 04/15/20 18:59 06:59 18:59 Intake Total 553 193 9903 Output Total 1075 1951 1400 Balance -002 -7680 -458 Weight 82.1 kg 76 kg Intake: IV 400 50 Sodium Chloride 0.9% 1, 400 50 000 ml @ 50 mls/hr IV . Q20H [facility] Rx#:[id number] Oral 50 1280 Output: Urine 1075 1951 1400 Other: Voiding Method Indwelling Catheter Indwelling Catheter Indwelling Catheter - Exam GENERAL: The patient is alert and oriented x2-3, flat affect with general arelis ise. Ill-appearing. Temp is 97.7F, pulse is 86, respirations are 18, blood pressure is 152/77, oxygen saturation is 92% on Airvo at 50 L HEENT: Pupils are round and equally reacting to light. EOMI. No scleral icterus. No conjunctival pallor. Normocephalic, atraumatic. No pharyngeal erythema. No t hyromegaly. CARDIOVASCULAR: S1 and S2 present. No murmurs, rubs, or gallops. PULMONARY: Diminished breath sounds bilaterally. With some scattered rhonchi noted ABDOMEN: Soft, nontender, nondistended, normoactive bowel sounds. No palpable organomegaly. MUSCULOSKELETAL: No joint swelling or deformity. EXTREMITIES: No cyanosis, clubbing, or pedal edema. NEUROLOGICAL: Gross neurological examination did not reveal any focal deficits. Diffusely weak SKIN: No rashes. no petechiae. - Labs CBC & Chem 7: 04/15/20 05:49 04/15/20 05:49 Labs: Abnormal Lab Results - Last 24 Hours (Table) 04/14/20 04/14/20 04/15/20 Range/Units 16:58 21:17 05:49 RDW 17.6 H (11.5-15.5) % Sodium (137-145) mmol/L Creatinine (0.52-1.04) mg/dL Glucose (74-99) mg/dL POC Glucose (mg/dL) 182 H 110 H (75-99) mg/dL Calcium (8.4-10.2) mg/dL 04/15/20 04/15/20 04/15/20 Range/Units 05:49 07:18 11:19 RDW (11.5-15.5) % Sodium 132 L (137-145) mmol/L Creatinine 0.48 L (0.52-1.04) mg/dL Glucose 173 H (74-99) mg/dL POC Glucose (mg/dL) 153 H 148 H (75-99) mg/dL Calcium 8.2 L (8.4-10.2) mg/dL Microbiology - Last 24 Hours (Table) 04/12/20 11:00 Urine Culture - Final Urine,Catheterized Enterococcus faecium VRE 04/09/20 03:43 Blood Culture - Final Blood No Growth after 144 hours Assessment and Plan Assessment: Acute respiratory distress syndrome, Covid 19 pneumonia Acute hypoxic respiratory failure secondary to Covid 19 pneumonia, on high flow nasal cannula Positive blood culture with bacteremia with with Enterococcus faecalis and coagulase negative staph, secondary to PICC line Acute GI bleed, currently hemoglobin is stable Uncontrolled hypertension with urgency Elevated liver enzymes with cholelithiasis, improved and patient is asymptomatic history of Fibromyalgia DVT prophylaxis: Subcutaneous Lovenox GI prophylaxis Full code Recommendations and discussion: Recommend continue current medications, management, and symptomatic treatment. Multiple medical consultations following including infectious disease, and pulmonary. Surgery recommending endoscopic intervention in the future once respiratory status is more stabilized. No active bleeding noted at this time. Patient is maintained on IV daptomycin and will continue at this time urine cultures finalize showing enterococcus VRE. Continue to wean FiO2 as tolerated. PT/OT to evaluate the patient as she continues to be quite weak. Patient needs continued assistance with meals and dysphasia diet along with head of the bed elevated 30-45 at all times. Will repeat a.m. labs. Due to multiple complex medical issues, prognosis is guarded.
[2020-04-15 17:11] LABS: Glucose,Whole Blood 236 mg/dL (75-99)
[2020-04-15] MEDS: SODIUM CHLORIDE 0.9% 1,000 ML IV SCH (18:16)
[2020-04-15 20:44] LABS: Glucose,Whole Blood 148 mg/dL (75-99)
[2020-04-15] MEDS: PANTOPRAZOLE 40 MG TABLET PO SCH (21:53)
[2020-04-15] MEDS: AMITRIPTYLINE HCL 50 MG TAB PO SCH (21:53)
[2020-04-15] MEDS: DAPTOmycin 500 MG in SODIUM CHLORIDE 0.9% 50 ML IVPB SCH (22:54)
[2020-04-15] MEDS: FLUCONAZOLE 100 MG TAB PO SCH (22:55)
--- NOTE | 2020-04-15 23:10 | PN ---
PROGRESS NOTE DATE OF SERVICE: 04/15/2020 REASON FOR FOLLOWUP: UTI and bacteremia. INTERVAL HISTORY: The patient is currently afebrile. The patient is breathing comfortably. Denies having any chest pain or shortness of breath. Occasional cough. No abdominal pain or diarrhea. PHYSICAL EXAMINATION: Blood pressure 148/70, pulse of 78, temperature 97.5. She is 98% on AIRVO. General description is an elderly female lying in bed in no distress. RESPIRATORY SYSTEM: Unlabored breathing with decreased intensity of breath sounds. No wheeze. HEART: S1, S2. Regular rate and rhythm. ABDOMEN: Soft. No tenderness. LABS: Hemoglobin is 11.4, white count 9.8, BUN of 13, creatinine 0.48. DIAGNOSTIC IMPRESSION AND PLAN: Patient with Enterococcus faecalis bacteremia, possibly catheter-related, in this patient subsequently showing VRE. Antibiotic has been switched to daptomycin. Patient's white count is normal. Continue current antibiotics and monitor clinical course closely. Continue supportive care. MMODL / IJN: [id number] /
[2020-04-16 06:23] LABS: Anisocytosis Slight; HCT 38.1 % (34.0-46.0); HGB 11.9 gm/dL (11.4-16.0); Hypochromasia Marked; MCH 28.1 pg (25.0-35.0); MCHC 31.2 g/dL (31.0-37.0); Mean Platelet Volume 8.5; Platelet Count 140 k/uL (150-450); Poikilocytosis Slight; RBC 4.23 m/uL (3.80-5.40); RDW 17.6 % (11.5-15.5); WBC 9.3 k/uL (3.8-10.6)
[2020-04-16 07:14] LABS: Glucose,Whole Blood 129 mg/dL (75-99)
[2020-04-16] MEDS: INSULIN ASPART (NovoLOG) 100 UNIT/ML VIAL SQ SCH ×4 (07:26→22:27)
[2020-04-16] MEDS: hydrALAZINE HCL 25 MG TAB PO SCH ×3 (09:21→22:26)
[2020-04-16] MEDS: CHOLECALCIFEROL 400 UNIT TAB PO SCH (09:21)
[2020-04-16] MEDS: amLODIPine 5 MG TAB PO SCH ×2 (09:21→22:27)
[2020-04-16] MEDS: ZINC SULFATE 220 MG CAP PO SCH (09:21)
[2020-04-16] MEDS: SERTRALINE 100 MG TAB PO SCH (09:21)
[2020-04-16] MEDS: ASCORBIC ACID 500 MG TAB PO SCH ×2 (09:22→22:27)
[2020-04-16] MEDS: ENOXAPARIN 40 MG/0.4 ML SYRINGE SQ SCH ×2 (09:22→22:27)
[2020-04-16] MEDS: methylPREDNISolone SOD SUCCI 40 MG/ML 1 ML VIAL IV SCH ×2 (09:22→22:32)
[2020-04-16] MEDS: PANTOPRAZOLE 40 MG TABLET PO SCH ×2 (09:22→22:26)
[2020-04-16 10:08] LABS: Anion Gap 10.8 mmol/L (4.00-12.00); Calcium 7.9 mg/dL (8.7-10.3); Carbon Dioxide 22.2 mmol/L (21.6-31.8); Non-African American GFR(CKD) 92.4 (60.0-200.0); Potassium 4.2 mmol/L (3.5-5.5)
[2020-04-16 11:05] LABS: Glucose,Whole Blood 117 mg/dL (75-99)
--- NOTE | 2020-04-16 11:36 | CDI ---
Documentation Clarification Form Date: 04/16/2020 11:03:42 AM From: Cristine JacobsLUCAS sneed, CCDS Admit Date: 03/25/2020 12:11:00 PM Patient Name: Denis Jalloh Visit Number: [id number] Discharge Date: ATTENTION: The Clinical Documentation Specialists (CDI) and [facility] Coding Staff appreciate your assistance in clarifying documentation. Please respond to the clarification below the line at the bottom and electronically sign. The CDI & [facility] Coding staff will review the response and follow-up if needed. Please note: Queries are made part of the Legal Health Record. If you have any questions, please contact the author of this message via ITS. Dr. Cody Aleman: Sepsis and positive blood cultures are documented in the following documents but has not been documented in subsequent documentation: 03/26 GI Consult and subsequent Progress Notes on 03/27 & 03/28: "Likely etiology of elevation in liver enzymes is underlying viral infection and hypoperfusion in the setting of sepsis, ...." 04/06 - 04/15 Pulmonary Progress Notes: "Agitated delirium along with metabolic encephalopathy likely multifactorial including COVID 19 pneumonia, is being in ICU, for intubation long period time sepsis." 04/08 Infectious Disease Progress Note: "Patient with a positive blood culture with Gram-positive cocci, possibly related to the PICC line. Recommend discontinuation of the PICC line. Patient is covered with Vancomycin." History/Risk Factors: Hypertension, Hypothyroidism, Chronic Anemia requiring transfusions every 8-12 weeks, Ulcer nos, Former smoker. Clinical Indicators: Presented to the ED on 03/25 with SOB & low Pulse Ox in respiratory distress, placed on BiPAP. On BiPAP the patient was agitated & confused, subsequently intubated in the ED. Seen previously in the ED for SOB, discharged on home O2 4L for Hypoxia secondary to pneumonia. Admitted this episode with ARDS, COVID 19 Pneumonia and Anemia. 03/25 VS: T 98.6, P 83 - 102^, R 24 - 26^ (SOB, labored, shallow, tachypnea), BP 126/79 - 181/89, PO 76 4Lnc - 89 100% BiPAP - Intubated. 03/25 LAB: WBC 11.5^, Hgb 9.2*, Neut 10.50^, Lymph 0.46*, Myelo 0.12^, BUN 22^, Cr 1.09^, Glucose 189^, Lactic Acid 5.9^^ - (1.3), Calcium 7.9*, Mag 2.6^, Ferritin 17880.7^, AST 4151^, ALT 1464^, Alk Phos 173^, LDH >75144, Trop 0.062^^, CRP 261.3^, Total Protein 6.1*, Albumin 2.8*, Procalcitonin 0.84^ ABGs: pH 7.28*, pCO2 52^, pO2 125^, Total CO2 26^, O2 Sat 98.8^ Cultures: 03/25 Blood Cx: Neg (Final) 03/26 Sputum Cx: Neg (Final) 04/06 Blood Cx: Diphtheroid species (Final) 04/07 Blood Cx: Enterococcus faecalis, Coagulase Neg Staph (Final) 04/09 Blood Cx (PICC line cath tip): Enterococcus faecium VRE, Kristi albicanss (Final) 04/12 Urine Cx (Cath): Enterococcus faecium VRE (Final) RAD 03/25: CXR: Worsening bilateral lung infiltrates. Correlate for atypical pneumonia. Treatment 03/25: IV Ativan, IV Decadron, IV Amidate, IV Zemuron, IV Propofol, Vit C, IV Protonix, Lovenox sq. 03/26: IV Solumedrol, IV Insulin, Vit D3, Orazinc, IV Vancomycin, IV Cefepime 03/28 PICC Line inserted 04/04 Extubated 04/09 PICC Line removed. 04/15: Remains on Airvo at 50L, IV Antibiotics: Daptomycin, IV Steroids, Vit C, Vit D, Zinc Please clarify if Sepsis was: Present/active this admission o If present, please specify source(s): Sepsis due to: __Enterococcus Specify organism: Treated and resolved this admission-yes this is correct Ruled out Other, please specify Clinically unable to determine Present on Admission: Yes No-this is the correct dx (Last Query Form Revision: December 2018) MTDD
--- NOTE | 2020-04-16 16:26 | P.PN ---
Subjective Progress Note Date: 04/16/20 Principal diagnosis: Acute hypoxic respiratory failure Covid19 pneumonia Acute respiratory and metabolic acidosis Acute hepatitis/elevated liver enzymes Acute diastolic heart failure and fluid overload Chronic anemia Fibromyalgia Hypertension hypertensive cardiovascular disease 04/16/2020, patient seen eval examined during the rounds respiratory status continued to improve so as the mental status however is still on high flow air VO oxygen 04/15/2020, patient seen eval examined during the rounds labs reviewed medications reviewed care plan discussed, patient remains on high flow oxygen 15 L 70% oxygen saturation remains marginal low 90s to high 80s previously today noted to be 94%, patient has been tolerating by mouth well, has been moved down from the ICU labs from today reviewed slight hyponatremia noted otherwise fairly within normal limit patient remains on Lovenox along with daptomycin fluconazole, IV steroids, patient has finished usual therapy for covid19 pneumonia 04/14/2020, patient remains on 50% oxygen 70L, awake slightly confused, shortness of breath is not obvious hemodynamic status stable tolerating by mouth well patient will be moved out of the ICU when bed available 04/13/2020, patient seen eval examined during the rounds labs reviewed medications reviewed care plan discussed with the staff, respiratory status remains stable continued to be on the 75% oxygen 15 L high flow, remains afebrile remains on antibiotics patient will be transferred to [facility] with remote telemetry date on today 04/12/2020, patient seen eval examined during rounds labs reviewed medications reviewed, respiratory status remains unchanged, patient remains on 15 L 75% oxygen unable to titrate oxygen down, appetite continued to improve, patient able to swallow well, labs reviewed medications reviewed care plan discussed with the staff at length, patient can be moved out to [facility] with remote telemetry 04/11/2020, patient seen eval examined during evaluation patient noted to be more awake and alert compared to prior exam however patient remains on 15 L 75% aerosolized oxygen high flow, no obvious distress present patient remains afebrile, remains on broad-spectrum antibiotics and usual care for coronary 19 pneumonia April 10 2020 patient seen eval examined sitting upright on the bed breathing comfortably, patient remains on high flow oxygen 15 L 75%, swallow evaluation completed patient able to swallow well will start by mouth blood pressure problem remains an issue we will increase the dose of Norvasc continue oral hydralazine monitor blood pressure closely, absolute reviewed x-ray reviewed continued to show bilateral interstitial infiltrate predominantly in mid part and basis 04/09/2020, patient seen eval examined in the ICU, respiratory status remains marginal but stable, patient is on 80% aerosolized oxygen 15 L, saturation is 90%, more awake and alert, swallowing functions will be reassessed later on today by speech therapist, mental status changes agitated behavior and confusion remains an issue which causes blood pressure to go up as well, 04/08/2020, patient seen eval examined during the rounds labs reviewed me dications reviewed care plan discussed, patient remains on BiPAP 15/5 with 70% oxygen, oxygen saturation 94% more awake alert, will try high flow aerosolized oxygen, blood culture positive for gram positive cocci in chain, patient is on IV vancomycin he is following 04/07/2020, patient seen eval examined during the rounds labs reviewed medications reviewed, mental status remains stable slightly improved however, patient intermittently get anxious and agitated, low-grade temperature 90 is present hemodynamically stable though, saturation is 90% to 93% on partial nonrebreather mask, chest x-ray remains stable, white cell count remains elevated, 04/06/2020, patient seen eval examined during the rounds labs reviewed medications reviewed, patient remains off of ventilator, mental status slightly better today compared to last 24-48 hours less agitated awake oriented 1 now, remains on partial nonrebreather mask, saturation is 94%, LAD pressure slightly running on the higher side remains on IV hydralazine, oxygen saturation is 94% to 96%, 04/05/2020, patient seen eval reexamined successfully weaned and extubated yesterday has been on supplemental oxygen 2-4 L, in the last 8-12 hours however decompensation in oxygenation status as well as patient even though awake but remains agitated appears to have a agitated delirium, does require Dilaudid at a regular interval, remains afebrile, oxygen saturation is 99% on 10 L nonrebreather mask, patient cannot take by mouth medicines are listed IV, will try morphine as needed DC Dilaudid, 04/04/2020, patient seen eval examined during the rounds labs reviewed medications reviewed care plan discussed, patient is awake now remains off of p ropofol since yesterday, does make intermittent eye contact, remains slightly withdrawn however, respiratory status stable, remains on assist control mode rate of 24, tidal volume is 450, +5 of PEEP, 40% oxygen, peak airway pressure stable, chest x-ray shows bilateral diffuse interstitial infiltrate stable ET tube and NG tube in PICC line, white cell count is 13,400, hemoglobin and hematocrit stable 9.4 and 31, arterial blood gases reviewed pH is 7.4 to pCO2 32 pO2 64, BUN/creatinine is 32 and 0.5, patient is reviewed Lovenox remains 2040 mg subcu twice a day on IV furosemide, Solu-Medrol is 60 mg IV every 6 we'll decrease it to every 12 04/03/2020, patient seen eval examined during rounds labs reviewed medications reviewed, care plan discussed, overall hemodynamically he remains stable blood pressure spiked up on hydralazine when necessary, seems to be helping, patient sedated with propofol drip 50 mics, attempts for weaning of protocol has been unsuccessful as patient becomes agitated, attempted Precedex drip has been unsuccessful as well, current vent settings include assist control rate of 24 breathing 24, FiO2 is 40%, PEEP is 5, tidal volume is 450, chest x-ray stable ET tube with bilateral multifocal infiltrate with consolidation consistent with cold with 19 pneumonia not essentially much change from the prior x-ray, ET tube and NG tube was stable, patient is getting tube feed bolus feeding, labs including ABG chemistry reviewed 04/02/2020, patient seen eval examined during the rounds labs reviewed medications reviewed care plan discussed, patient remains sedated with propofol on ventilator for full ventilator support, currently patient is on assist control mode rate Tuesday for breathing 24, tidal volume is 450, 5 of PEEP, 40% oxygen, propofol is 50 mics, chest x-ray from today reviewed continue show patchy bilateral infiltrate without any significant interval change, arterial blood gases revealed pH of 7.43 pCO2 32, C-reactive protein is down to 21, BUN/creatinine is 34/.49, white cell count and hemoglobin remained stable, medications reviewed, she remains on broad-spectrum antibiotic with cephapirin, Lovenox, gentle diuresis with Lasix, blood pressure control with IV hydralazine, patient remains on high-dose IV steroids, discussed with the staff at length, will stop the propofol drip and once patient is awake put on CPAP 5 pressure support of 5 gas after half an hour also check weaning parameters 04/01/2020, patient seen eval examined labs reviewed medications reviewed care plan discussed with the staff at length patient had a sedation holiday today she is arousable and awake follows simple commands with blood pressure went up becomes agitated anxious requiring a reinitiation of propofol drip, ventilator setting remains unchanged, patient is on rate of 24 tidal volume is 450, PEEP is 5, oxygen is 40%, chest x-ray from today reviewed remains overall stable with stable lines and tubes 03/31/2020, patient seen eval examined during the rounds labs reviewed medications reviewed care plan discussed, patient remains on full ventilator support, propofol was changed to Precedex but however patient becomes agitated so back on propofol when setting remains unchanged have been on assist control rate of 24, PEEP is 5, FiO2 is 40%, tidal volume of 450, care plan discussed with the staff at length critical care time 35 minutes 03/30/2020, patient seen eval examined during the rounds labs reviewed medications reviewed, remains sedated with propofol, current vent setting include his control rate of 24 breathing 24 tidal volume is 450, deep is 5 now, FiO2 is 40%, tolerating tube feed very well, chest x-ray reviewed slightly better but stable bilateral infiltrate consistent with atypical pneumonia, patient continued IVs very well with 20 mg Lasix daily, white cell count remained stable, with stable hemoglobin and however decreasing platelet count noted, dear blood gases revealed pH of 7.4 to pCO2 34 pO2 of 62, BUN/creatinine is 36 and 0.62, left he continue show downward trend, inflammatory markers reviewed still elevated but showing a downward trend 03/29/2020, patient seen eval examined during the rounds labs reviewed medicat ions reviewed, care plan discussed with the nursing staff at length, patient has been on assist control rate of the 24 PEEP of 8 400 tidal volume 50% oxygen, ventilator has been adjusted with reduction in PEEP and oxygen, patient's saturation remained stable 91-92%, next step he is to stop propofol and reassess the mental status and if patient remains stable oxygen randolph and hemodynamics can do a CPAP pressure support trial in the meantime we'll continue IV steroids, antibiotics, CBC and ABG reviewed, today's chest x-ray showed bilateral interstitial infiltrate, predominantly at the bases, patient has been on Lasix 20 mg daily diuresing very well, critical care time 35 minutes 03/28/2020, patient seen eval examined during the rounds labs reviewed medications reviewed care plan discussed oxygen has been down to 40% now. The patient is PEEP of 8, otherwise ventilator setting remains stable, patient is scheduled for PICC line later on today, remains on propofol, remains on broad-spectrum antibiotics, labs from today has been reviewed hemoglobin is stable 7.9, d-dimer is 3.24, arterial blood gases stable pH is 7.41 pCO2 35 pO2 96, BUN/creatinine is 51 and 1.05, ferritin level remains more than 26,000, AST ALT continued decline however today is 367 and 558, C-reactive protein checked 69.5 her chest x-ray earlier than today remains there however appears to have slightly progressed 03/27/2020, patient seen eval examined during the rounds labs reviewed medications reviewed care plan discussed, propofol has been discontinued patient because very restless and anxious, we'll restart propofol, patient has been on full ventilator support assist control 24 tidal volume of 450, PEEP is 10, oxygen is 70%, arterial blood gases reviewed when lower the FiO2 to 60% now plan to bring down the FiO2 to 50% and PEEP of 8 next 24 hours, sputum and blood cultures reviewed no growth so far, chest x-ray performed today reviewed significant improvement in infiltrates seen bilaterally, patient has a poor urine output throughout the night, 20 mg of Lasix was given put out 600 mL of urine patient continued to be on gentle hydration, remain on cefapime and Vanco, Lovenox Solu-Medrol multivitamin and vitamin C zinc and Lovenox, white cell count is stable 10,500 hemoglobin and hematocrit 7.2 and 24, general surgery has been following patient is considered to get EGD and colonoscopy once stable, arterial blood gas revealed pH of 7.39 pCO2 of 39 pO2 of 124, bicarb 25, liver enzymes continue to come down AST and ALT now is 944/809, hepatitis panel normal and nonreactive 03/26/2020, patient seen eval examined in the ICU care plan discussed with the staff, FiO2 has been down to 60%, patient remains on assist control tidal volume of 450, PEEP is 10, respiratory rate is 24 breathing with the respirator pH has been improved significantly, patient is making adequate urine chest x-ray compared with yesterday's x-ray some improvement have been noted, white cell count is 11,000, hemoglobin 7.9 which is stable, arterial blood gas improved to 7.39, pCO2 of 40, pO2 112, BUN/creatinine is 33/0.96, lactic acid was 5.9 down to 1.3 now, ferritin level noted to be 12,800, AST and ALT are 4014 100 with LDH over 21,500, today LFTs significantly improved AST is down to 2795 and ALT is 1222, pro calcitonin is 0.84, suspect some component of heart failure as well as pneumonia, will get an echocardiogram as well as start patient on broad-spectrum antibiotics with cefepime and Vanco Patient seen and evaluated examined in the emergency department, patient came into the ER from the office of Dr. Aleman due to progressive shortness of breath, patient has acute on chronic hypoxic respiratory failure on 4 L oxygen, also has issues associated with pneumonia presumed to be cold with 19, however, testing was negative, patient used to smoke in the remote past quit about 20-30 years ago due to severity or shortness of breath and hypoxia with saturation of 76% on 100% oxygen and respiratory distress patient was intubated due to poor tolerance on BiPAP, patient Covid testing came back positive, chest x-ray showing diffuse infiltrate she also has been noted to have elevated liver enzymes due to elevated liver enzymes will not start IV REMdesivir, Initial ABG pH is 7.18, pCO2 is 63 pO2 was only 33 Objective - Vital Signs Vital signs: Vital Signs Temp 98.1 F 04/16/20 11:00 Pulse 76 04/16/20 11:00 Resp 17 04/16/20 11:00 BP 138/76 04/16/20 11:00 Pulse Ox 94 L 04/16/20 11:00 Intake & Output 04/15/20 04/16/20 04/16/20 18:59 06:59 18:59 Intake Total 2240 600 Output Total 1900 1200 Balance 340 -600 Weight 73 kg 73 kg Intake: IV 600 Sodium Chloride 0.9% 1, 600 000 ml @ 50 mls/hr IV . Q20H NONA Rx#:[id number] Intake, IV Titration 600 Amount Sodium Chloride 0.9% 1, 600 000 ml @ 50 mls/hr IV . Q20H NONA Rx#:[id number] Oral 1640 Output: Urine 1900 1200 Other: Voiding Method Indwelling Catheter Indwelling Catheter Indwelling Catheter - Exam Patient on 80% oxygen 15 L aerosolized saturation is 90% to 92% - Constitutional General appearance: average body habitus, mild distress, restless intermittently agitated - EENT Ears: bilateral: normal - Neck Carotids: bilateral: upstroke normal Thyroid: bilateral: normal size - Respiratory Respiratory: bilateral: diminished - Cardiovascular Rhythm: regular Heart sounds: normal: S1, S2 - Gastrointestinal General gastrointestinal: normal bowel sounds Patient is relatively more awake and alert compared to yesterday exam - Labs CBC & Chem 7: 04/16/20 06:05 04/16/20 06:05 Labs: Abnormal Lab Results - Last 24 Hours (Table) 04/15/20 04/15/20 04/16/20 Range/Units 17:10 20:42 06:05 RDW 17.6 H (11.5-15.5) % Plt Count 140 L (150-450) k/uL Glucose (70-110) mg/dL POC Glucose (mg/dL) 236 H 148 H (75-99) mg/dL Calcium (8.7-10.3) mg/dL 04/16/20 04/16/20 04/16/20 Range/Units 06:05 07:13 11:04 RDW (11.5-15.5) % Plt Count (150-450) k/uL Glucose 130 H (70-110) mg/dL POC Glucose (mg/dL) 129 H 117 H (75-99) mg/dL Calcium 7.9 L (8.7-10.3) mg/dL Assessment and Plan Assessment: Hypertensive urgency, antihypertensive being adjusted Gram-positive bacteremia found to be group D enterococcus patient is on vancomycin Agitated delirium along with metabolic encephalopathy likely multifactorial including Covid 19 pneumonia, is being in ICU, for intubation long period time sepsis, slowly improving Acute hypoxic respiratory failure Covid19 pneumonia Acute pneumonia bacterial bilateral healthcare associated patient is being mo nitored off of antibiotics now Thrombocytopenia stable Acute respiratory and metabolic acidosis Acute hepatitis/elevated liver enzymes Acute diastolic heart failure Chronic anemia Fibromyalgia Hypertension hypertensive cardiovascular disease Plan: Continue supportive care, avoid benzodiazepine, continue monitor patient's remains on high flow and also aerosolized oxygen, closely once FiO2 down to nasal cannula will move her out of ICU with that we'll help the delirium as well continue IV vancomycin Monitor intake and output closely keep on even a negative side Patient remains on partial nonrebreather mask was slowly titrate oxygen down as tolerated Trend liver enzymes Patient is not a candidate for IV REMdesivir due to markedly elevated liver enzymes IV steroids, continued to taper in next 24 hours will bring it down to once a day Further recommendations pending plan of care as per clinical response of patient Continue anticoagulation with Lovenox Time with Patient: Greater than 30
[2020-04-16 16:56] LABS: Glucose,Whole Blood 229 mg/dL (75-99)
[2020-04-16] MEDS: SODIUM CHLORIDE 0.9% 1,000 ML IV SCH (17:41)
[2020-04-16 21:56] LABS: Glucose,Whole Blood 243 mg/dL (75-99)
[2020-04-16] MEDS: FLUCONAZOLE 100 MG TAB PO SCH (22:26)
[2020-04-16] MEDS: AMITRIPTYLINE HCL 50 MG TAB PO SCH (22:27)
[2020-04-16] MEDS: DAPTOmycin 500 MG in SODIUM CHLORIDE 0.9% 50 ML IVPB SCH (22:32)
--- NOTE | 2020-04-16 23:20 | P.PN ---
Subjective Progress Note Date: 04/16/20 This is a pleasant 69 years old female who has prolonged course in the hospital for more than 2 weeks where originally was admitted for worsening respiratory symptoms related to her covid 19 pneumonia, patient has been followed closely by pulmonary service and she remains on Lovenox, Solu-Medrol and IV hydration. However she still on 50 L of oxygen via high flow nasal cannula. Patient had swollen the problem but eventually found is able to swallow today and she was started on oral medication. Her blood pressure was on the high side and Norvasc increased to 5 mg twice daily and hydralazine to 75 mg 3 times a day. Also surgery team are following the case for acute blood loss for suspected GI bleed, they are planning to do EGD and colonoscopy once she is more clinically stable to tolerate such procedures Patient is also followed closely by ID team being covered by antibiotics with Diflucan and IV vancomycin for positive blood culture with enterococcus faecalis with coagulase-negative staph, suspected to be related to IV PICC line which was discontinued went and tip was sent for culture which is still pending If her enzymes were initially elevated on admission and due to her Covid infection and cholelithiasis, currently they are close to normal. Also patient found hemangioma rather than liver mass for GI team evaluation, however will need follow-up as an outpatient 04/15/2020 Patient is seen and evaluated in follow-up on a medical surgical unit and being closely monitored. Patient remains on Airvo at 50 L and oxygenation continues to be very slow to respond. Pulmonary is following closely along with infectious disease. Patient remains on IV antibiotics in the form of daptomycin as urine cultures finalized showing enterococcus faecium VRE. Surgery following as needed and recommending endoscopy intervention once patient is more stable. The bleeding noted at this time. Hemoglobin is stable at 11.4. Sodium 132, potassium is 4.0, current creatinine is 0.48. Patient's oral intake continues to be poor and needs strong encouragement along with one-to-one supervision and is maintained on dysphagia level III chopped diet. She has no appetite at all. She continues on Lovenox along with vitamin C, vitamin D, zinc supplements, and IV steroids and will continue at this time. PT/OT to evaluate the patient as she continues to be quite weak requiring assistance. 04/16/2020 Patient seen in follow up this morning and is more awake and alert and currently sitting up in the chair. Per nursing staff, she continues to have poor oral intake although has eaten more with each meal today. Patient remains on Airvo although is slowly being titrated down with respiratory and patient tolerating. Infectious disease along with pulmonary following. Hemoglobin remains stable wit h no active bleeding noted. Surgery recommending endoscopy once more stable respiratory randolph. PT/OT following and working with the patient. Patient will require ECF for rehab once stabilized. Patient is maintained on IV daptomycin and will continue at this time. Review of systems: Constitutional: Reports fatigue Cardiovascular: No reports of chest pain or palpitations Respiratory: Reports continued shortness of breath GI: No reports of nausea, vomiting, or diarrhea, reports poor appetite : No reports of dysuria or retention Neurovascular: reports weakness All medications have been reviewed Active Medications Acetaminophen (Acetaminophen Tab 500 Mg Tab) 1,000 mg PO Q6HR PRN PRN Reason: Fever>101 Alprazolam (Alprazolam 0.25 Mg Tab) 0.25 mg PO QID PRN PRN Reason: Anxiety Last Admin: 04/12/20 21:00 Dose: 0.25 mg Documented by: Amitriptyline HCl (Amitriptyline Hcl 50 Mg Tab) 50 mg PO [facility] Last Admin: 04/16/20 22:27 Dose: 50 mg Documented by: Amlodipine Besylate (Amlodipine 5 Mg Tab) 5 mg PO BID [facility] Last Admin: 04/16/20 22:27 Dose: 5 mg Documented by: Ascorbic Acid (Ascorbic Acid 500 Mg Tab) 500 mg PO BID [facility] Last Admin: 04/16/20 22:27 Dose: 500 mg Documented by: Cholecalciferol (Cholecalciferol 400 Unit Tab) 400 unit PO DAILY [facility] Last Admin: 04/16/20 09:21 Dose: 400 unit Documented by: Enoxaparin Sodium (Enoxaparin 40 Mg/0.4 Ml Syringe) 40 mg SQ BID [facility] Last Admin: 04/16/20 22:27 Dose: 40 mg Documented by: Fluconazole (Fluconazole 100 Mg Tab) 100 mg PO [facility] Last Admin: 04/16/20 22:26 Dose: 100 mg Documented by: Haloperidol Lactate (Haloperidol Lactate 5 Mg/Ml 1 Ml Vial) 2.5 mg IVP Q8HR PRN PRN Reason: Agitation or Acute Psychosis Last Admin: 04/14/20 04:41 Dose: 2.5 mg Documented by: Hydralazine HCl (Hydralazine Hcl 25 Mg Tab) 75 mg PO TID [facility] Last Admin: 04/16/20 22:26 Dose: 75 mg Documented by: Hydromorphone HCl (Hydromorphone 1 Mg/Ml 1 Ml Syringe) 1 mg IVP Q2H PRN PRN Reason: Pain Last Admin: 04/14/20 10:26 Dose: 1 mg Documented by: Sodium Chloride (Saline 0.9%) 1,000 mls @ 50 mls/hr IV .Q20H [facility] Last Admin: 04/16/20 17:41 Dose: 50 mls/hr Documented by: Daptomycin 500 mg/ Sodium (Chloride) 50 mls @ 100 mls/hr IVPB Q24H [facility]; Protocol Last Admin: 04/16/20 22:32 Dose: 100 mls/hr Documented by: Insulin Aspart (Insulin Aspart (Novolog) 100 Unit/Ml Vial) 0 unit SQ ACHS [facility]; Protocol Last Admin: 04/16/20 22:27 Dose: 8 unit Documented by: Methylprednisolone Sodium Succinate (Methylprednisolone Sod Succi 40 Mg/Ml 1 Ml Vial) 40 mg IV Q12HR [facility] Last Admin: 04/16/20 22:32 Dose: 40 mg Documented by: Naloxone HCl (Naloxone 0.4 Mg/Ml 1 Ml Vial) 0.2 mg IV Q2M PRN PRN Reason: Opioid Reversal Pantoprazole Sodium (Pantoprazole 40 Mg Tablet) 40 mg PO BID [facility] Last Admin: 04/16/20 22:26 Dose: 40 mg Documented by: Ropinirole HCl (Ropinirole Hcl 1 Mg Tab) 1 mg PO TID [facility] Last Admin: 04/16/20 22:27 Dose: 1 mg Documented by: Senna (Sennosides 8.6 Mg Tab) 8.6 mg PO BID PRN PRN Reason: Constipation Last Admin: 04/13/20 15:46 Dose: 8.6 mg Documented by: Sertraline HCl (Sertraline 100 Mg Tab) 150 mg PO DAILY [facility] Last Admin: 04/16/20 09:21 Dose: 150 mg Documented by: Sodium Chloride (Sodium Chloride 0.9% Flush 10 Ml Syringe) 10 ml IV Q4HR PRN PRN Reason: PICC Line Sodium Chloride (Sodium Chloride 0.9% Flush 10 Ml Syringe) 10 ml IV WEEKLY [facility] Last Admin: 04/11/20 08:49 Dose: 10 ml Documented by: Sodium Chloride (Sodium Chloride 0.9% Flush 10 Ml Syringe) 20 ml IV Q4HR PRN PRN Reason: PICC Line Zinc Sulfate (Zinc Sulfate 220 Mg Cap) 220 mg PO DAILY [facility] Last Admin: 04/16/20 09:21 Dose: 220 mg Documented by: Objective - Vital Signs Vital signs: Vital Signs Temp 98.1 F 04/16/20 11:00 Pulse 76 04/16/20 11:00 Resp 17 04/16/20 11:00 BP 138/76 04/16/20 11:00 Pulse Ox 94 L 04/16/20 11:00 Intake & Output 04/15/20 04/16/20 04/16/20 18:59 06:59 18:59 Intake Total 2240 600 Output Total 1900 1200 Balance 340 -600 Weight 73 kg 73 kg Intake: IV 600 Sodium Chloride 0.9% 1, 600 000 ml @ 50 mls/hr IV . Q20H [facility] Rx#:[id number] Intake, IV Titration 600 Amount Sodium Chloride 0.9% 1, 600 000 ml @ 50 mls/hr IV . Q20H [facility] Rx#:[id number] Oral 1640 Output: Urine 1900 1200 Other: Voiding Method Indwelling Catheter Indwelling Catheter Indwelling Catheter - Exam GENERAL: The patient is alert and oriented x2-3, flat affect with general malaise. Ill-appearing although more awake and responsive today sitting up in the chair. Temp is 98.1F, pulse is 76, respirations are 17, blood pressure is 138/76, oxygen saturation is 94% on Airvo with a decreased rate of 45 and slowly titrating down HEENT: Pupils are round and equally reacting to light. EOMI. No scleral icterus. No conjunctival pallor. Normocephalic, atraumatic. No pharyngeal erythema. No thyromegaly. CARDIOVASCULAR: S1 and S2 present. No murmurs, rubs, or gallops. PULMONARY: Diminished breath sounds bilaterally With some scattered no wheezing or rhonchi noted ABDOMEN: Soft, nontender, nondistended, normoactive bowel sounds. No palpable organomegaly. MUSCULOSKELETAL: No joint swelling or deformity. EXTREMITIES: No cyanosis, clubbing, or pedal edema. NEUROLOGICAL: Gross neurological examination did not reveal any focal deficits. Diffusely weak SKIN: No rashes. no petechiae. - Labs CBC & Chem 7: 04/16/20 06:05 04/16/20 06:05 Labs: Abnormal Lab Results - Last 24 Hours (Table) 04/15/20 04/15/20 04/16/20 Range/Units 17:10 20:42 06:05 RDW 17.6 H (11.5-15.5) % Plt Count 140 L (150-450) k/uL Glucose (70-110) mg/dL POC Glucose (mg/dL) 236 H 148 H (75-99) mg/dL Calcium (8.7-10.3) mg/dL 04/16/20 04/16/20 04/16/20 Range/Units 06:05 07:13 11:04 RDW (11.5-15.5) % Plt Count (150-450) k/uL Glucose 130 H (70-110) mg/dL POC Glucose (mg/dL) 129 H 117 H (75-99) mg/dL Calcium 7.9 L (8.7-10.3) mg/dL Assessment and Plan Assessment: Acute respiratory distress syndrome, Covid 19 pneumonia Acute hypoxic respiratory failure secondary to Covid 19 pneumonia, on Airvo Positive blood culture with bacteremia with with Enterococcus faecalis and coagulase negative staph, secondary to PICC line possible sepsis, present on admission, secondary to above Acute GI bleed, currently hemoglobin is stable Uncontrolled hypertension with urgency Elevated liver enzymes with cholelithiasis, improved and patient is asymptomatic history of Fibromyalgia DVT prophylaxis: Subcutaneous Lovenox GI prophylaxis Full code Recommendations and discussion: Recommend continue current medications, management, and symptomatic treatment. Multiple medical consultations following including infectious disease, and pulmonary. Surgery recommending endoscopic intervention in the future once respiratory status is more stabilized. No active bleeding noted at this time. Hemoglobin is stable. Patient is maintained on IV daptomycin and will continue at this time urine cultures finalize showing enterococcus VRE. Continue to wean FiO2 as tolerated. Patient currently on Airvo and slow to improve although being titrated down. PT/OT following as she continues to be quite weak. Patient needs continued assistance with meals and dysphasia diet along with head of the bed elevated 30-45 at all times. Will repeat a.m. labs. Due to multiple comp breann medical issues, prognosis is guarded.
--- NOTE | 2020-04-17 | PN ---
PROGRESS NOTE DATE OF SERVICE: 04/16/2020 REASON FOR FOLLOWUP: VRE UTI and Enterococcus bacteremia. INTERVAL HISTORY: The patient is currently afebrile. Patient is breathing more comfortably, still requiring . No chest pain. No nausea, no vomiting. No abdominal pain. No diarrhea. PHYSICAL EXAMINATION: Blood pressure 151/75 with a pulse of 90, temperature 98.5. She is 95% on room air. General description is an elderly female lying in bed in no distress. Respiratory system: Unlabored breathing, decreased intensity in breath sounds in the base, with no wheeze. Heart S1, S2. Regular rate. ABDOMEN: Soft, no tenderness. LABS: Hemoglobin 11.8, white count 9.3, BUN of 12, creatinine 0.6. DIAGNOSTIC IMPRESSION AND PLAN: Patient with Enterococcus bacteremia also with evidence of VRE urinary tract infection in this patient currently covered on daptomycin to continue to finish a course of therapy. Monitor clinical course closely. MMODL / IJN: [id number] / MTDD
[2020-04-17 06:59] LABS: Glucose,Whole Blood 119 mg/dL (75-99)
[2020-04-17] MEDS: INSULIN ASPART (NovoLOG) 100 UNIT/ML VIAL SQ SCH ×4 (07:02→21:20)
[2020-04-17 07:18] LABS: Anisocytosis Slight; Basophils % (A) 0 %; Eosinophils # (A) 0.1 k/uL (0-0.7); Eosinophils % (A) 1 %; HCT 35.3 % (34.0-46.0); HGB 11.4 gm/dL (11.4-16.0); Hypochromasia Moderate; Lymphocytes # (A) 0.4 k/uL (1.0-4.8); Lymphocytes % (A) 5 %; MCHC 32.3 g/dL (31.0-37.0); MCV 86.7 fL (80.0-100.0); Mean Platelet Volume 8.4; Monocytes # (A) 0.1 k/uL (0-1.0); Monocytes % (A) 2 %; Neutrophils # (A) 6.1 k/uL (1.3-7.7); Neutrophils % (A) 91 %; Platelet Count 141 k/uL (150-450); Poikilocytosis Slight; RBC 4.07 m/uL (3.80-5.40); RDW 17.4 % (11.5-15.5); WBC 6.7 k/uL (3.8-10.6)
--- NOTE | 2020-04-17 08:01 | CDI ---
Documentation Clarification Form Date: 04/17/2020 07:46:00 AM From: Cristine JacobsLUCAS sneed, CCDS Admit Date: 03/25/2020 12:11:00 PM Patient Name: Denis Jalloh Visit Number: [id number] Discharge Date: ATTENTION: The Clinical Documentation Specialists (CDI) and [facility] Coding Staff appreciate your assistance in clarifying documentation. Please respond to the clarification below the line at the bottom and electronically sign. The CDI & [facility] Coding staff will review the response and follow-up if needed. Please note: Queries are made part of the Legal Health Record. If you have any questions, please contact the author of this message via ITS. Dr. Cody Aleman: A diagnosis of UTI has been documented in the 04/11 Attending Progress Note. Per the 04/11 Infectious Disease Progress Note: "Patient with Enterococcus faecalis bacteremia with concern of possible line related versus UTI and urine showing the same pathogen." History/Risk Factors: Hypertension, Hypothyroidism, Chronic Anemia requiring transfusions every 8-12 weeks, Ulcer nos, Former smoker. Clinical Indicators: Presented to the ED on 03/25 with SOB & low Pulse Ox in respiratory distress, placed on BiPAP. On BiPAP the patient was agitated & confused, subsequently intubated in the ED. Seen previously in the ED for SOB, discharged on home O2 4L for Hypoxia secondary to pneumonia. Admitted this episode with ARDS, COVID 19 Pneumonia and Anemia. 03/25 VS: T 98.6, P 83 - 102^, R 24 - 26^ (SOB, labored, shallow, tachypnea), BP 126/79 - 181/89, PO 76 4Lnc - 89 100% BiPAP - Intubated. 03/25 LAB: WBC 11.5^, Hgb 9.2*, Neut 10.50^, Lymph 0.46*, Lactic Acid 5.9^^ - (1.3) UA 04/09: Cloudy, Large Blood, Negative Nitrite, Trace Esterase, RBC 94^, WBC 15^, Bacteria Many UA 04/12: Clear, Negative Nitrite, Trace Esterase, WBC 6^, Bacteria Rare Cultures: 03/25 Blood Cx: Neg (Final) 04/06 Blood Cx: Diphtheroid species (Final) 04/07 Blood Cx: Enterococcus faecalis, Coagulase Neg Staph (Final) 04/09 Blood Cx (PICC line cath tip): Enterococcus faecium VRE, Kristi albicanss (Final) 04/12 Urine Cx (Cath): Enterococcus faecium VRE (Final) Treatment 03/25: Quick Catheter inserted in ICU, Intubated. 03/26: IV fluid 500 mls @ 999 mls/hr q31M, IV fluid 1,000 mls @ 50 mls/hr q20H, IV Solumedrol, IV Insulin, Vit D3, Orazinc, IV Vancomycin, IV Cefepime 03/28 PICC Line inserted 04/04 Extubated 04/09 PICC Line removed. 04/15: Remains on Airvo at 50L, IV Antibiotics: Daptomycin, IV Steroids, Vit C, Vit D, Zinc In your professional opinion, can you please clarify the etiology of the UTI, if known: Urinary Tract Infection is related to the Indwelling Quick Catheter-this is the correct dx Urinary Tract Infection is not related to the Indwelling Quick Catheter Other condition, please specify Unable to determine If an infective organism is present, please specify cause and effect relationship if applicable: ecnterococcus faecium (Last Revision: July 2017) MTDD
[2020-04-17] MEDS: methylPREDNISolone SOD SUCCI 40 MG/ML 1 ML VIAL IV SCH ×2 (09:02→21:19)
[2020-04-17] MEDS: CHOLECALCIFEROL 400 UNIT TAB PO SCH (09:02)
[2020-04-17] MEDS: PANTOPRAZOLE 40 MG TABLET PO SCH ×2 (09:02→21:18)
[2020-04-17] MEDS: hydrALAZINE HCL 25 MG TAB PO SCH ×3 (09:02→21:19)
[2020-04-17] MEDS: ENOXAPARIN 40 MG/0.4 ML SYRINGE SQ SCH ×2 (09:02→21:20)
[2020-04-17] MEDS: ZINC SULFATE 220 MG CAP PO SCH (09:03)
[2020-04-17] MEDS: ASCORBIC ACID 500 MG TAB PO SCH ×2 (09:03→21:18)
[2020-04-17] MEDS: amLODIPine 5 MG TAB PO SCH ×2 (09:03→21:19)
[2020-04-17] MEDS: SERTRALINE 100 MG TAB PO SCH (09:03)
[2020-04-17 11:35] LABS: Glucose,Whole Blood 148 mg/dL (75-99)
[2020-04-17] MEDS: SODIUM CHLORIDE 0.9% 1,000 ML IV SCH (12:22)
[2020-04-17 17:09] LABS: Glucose,Whole Blood 204 mg/dL (75-99)
[2020-04-17 17:38] LABS: Anion Gap 9.3 mmol/L (4.00-12.00); Calcium 7.6 mg/dL (8.7-10.3); Carbon Dioxide 22.7 mmol/L (21.6-31.8); Non-African American GFR(CKD) 92.4 (60.0-200.0); Potassium 4.2 mmol/L (3.5-5.5)
[2020-04-17 20:13] LABS: Glucose,Whole Blood 256 mg/dL (75-99)
[2020-04-17] MEDS: FLUCONAZOLE 100 MG TAB PO SCH (21:18)
[2020-04-17] MEDS: AMITRIPTYLINE HCL 50 MG TAB PO SCH (21:18)
[2020-04-17] MEDS: DAPTOmycin 500 MG in SODIUM CHLORIDE 0.9% 50 ML IVPB SCH (21:19)
--- NOTE | 2020-04-17 22:41 | PN ---
PROGRESS NOTE DATE OF SERVICE: 04/17/2020 REASON FOR FOLLOWUP: Enterococcus faecalis bacteremia and VRE UTI. INTERVAL HISTORY: The patient is currently afebrile. The patient is breathing comfortably. Denies having any chest pain. Occasional cough. No abdominal pain or diarrhea. PHYSICAL EXAMINATION: Blood pressure 121/67, pulse 80, temperature 97.9. She is 93% on high-flow oxygen. General description is an elderly female lying in bed in no distress. RESPIRATORY SYSTEM: Unlabored breathing with decreased intensity of breath sounds. No wheeze. HEART: S1, S2. Regular rate and rhythm. ABDOMEN: Soft. No tenderness. LABS: Hemoglobin 11.1, white count 6.7, BUN of 18, creatinine 0.6. DIAGNOSTIC IMPRESSION AND PLAN: Patient with VRE urinary tract infection with Enterococcus faecalis bacteremia. This patient is currently covered with daptomycin; to continue along with respiratory support and monitor clinical course closely. Continue supportive care. MMODL / IJN: [id number] /
--- NOTE | 2020-04-18 01:51 | P.PN ---
Subjective Progress Note Date: 04/17/20 This is a pleasant 69 years old female who has prolonged course in the hospital for more than 2 weeks where originally was admitted for worsening respiratory symptoms related to her covid 19 pneumonia, patient has been followed closely by pulmonary service and she remains on Lovenox, Solu-Medrol and IV hydration. However she still on 50 L of oxygen via high flow nasal cannula. Patient had swollen the problem but eventually found is able to swallow today and she was started on oral medication. Her blood pressure was on the high side and Norvasc increased to 5 mg twice daily and hydralazine to 75 mg 3 times a day. Also surgery team are following the case for acute blood loss for suspected GI bleed, they are planning to do EGD and colonoscopy once she is more clinically stable to tolerate such procedures Patient is also followed closely by ID team being covered by antibiotics with Diflucan and IV vancomycin for positive blood culture with enterococcus faecalis with coagulase-negative staph, suspected to be related to IV PICC line which was discontinued went and tip was sent for culture which is still pending If her enzymes were initially elevated on admission and due to her Covid infection and cholelithiasis, currently they are close to normal. Also patient found hemangioma rather than liver mass for GI team evaluation, however will need follow-up as an outpatient 04/15/2020 Patient is seen and evaluated in follow-up on a medical surgical unit and being closely monitored. Patient remains on Airvo at 50 L and oxygenation continues to be very slow to respond. Pulmonary is following closely along with infectious disease. Patient remains on IV antibiotics in the form of daptomycin as urine cultures finalized showing enterococcus faecium VRE. Surgery following as needed and recommending endoscopy intervention once patient is more stable. The bleeding noted at this time. Hemoglobin is stable at 11.4. Sodium 132, potassium is 4.0, current creatinine is 0.48. Patient's oral intake continues to be poor and needs strong encouragement along with one-to-one supervision and is maintained on dysphagia level III chopped diet. She has no appetite at all. She continues on Lovenox along with vitamin C, vitamin D, zinc supplements, and IV steroids and will continue at this time. PT/OT to evaluate the patient as she continues to be quite weak requiring assistance. 04/16/2020 Patient seen in follow up this morning and is more awake and alert and currently sitting up in the chair. Per nursing staff, she continues to have poor oral intake although has eaten more with each meal today. Patient remains on Airvo although is slowly being titrated down with respiratory and patient tolerating. Infectious disease along with pulmonary following. Hemoglobin remains stable wit h no active bleeding noted. Surgery recommending endoscopy once more stable respiratory randolph. PT/OT following and working with the patient. Patient will require ECF for rehab once stabilized. Patient is maintained on IV daptomycin and will continue at this time. 04/17/2020 Patient was evaluated today and sitting up in the chair currently maintained on Airvo and respiratory has been slowly weaning as tolerated. Patient is more awake and per staff has been eating more of her meals with encouragement. Incentive spirometer ordered and instructed the patient to continue using at least 10 times every hour while awake. Patient is maintained on IV antibiotics and infectious disease following. Patient hemoglobin stable. Labs within normal limits. Pulmonary following as well. PT/OT following. Will repeat am chest xray. Patient is afebrile. Review of systems: Constitutional: Reports fatigue Cardiovascular: No reports of chest pain or palpitations Respiratory: Reports continued shortness of breath GI: No reports of nausea, vomiting, or diarrhea, reports poor appetite : No reports of dysuria or retention Neurovascular: reports weakness All medications have been reviewed Active Medications Acetaminophen (Acetaminophen Tab 500 Mg Tab) 1,000 mg PO Q6HR PRN PRN Reason: Fever>101 Alprazolam (Alprazolam 0.25 Mg Tab) 0.25 mg PO QID PRN PRN Reason: Anxiety Last Admin: 04/12/20 21:00 Dose: 0.25 mg Documented by: Amitriptyline HCl (Amitriptyline Hcl 50 Mg Tab) 50 mg PO HS [facility] Last Admin: 04/16/20 22:27 Dose: 50 mg Documented by: Amlodipine Besylate (Amlodipine 5 Mg Tab) 5 mg PO BID [facility] Last Admin: 04/17/20 09:03 Dose: 5 mg Documented by: Ascorbic Acid (Ascorbic Acid 500 Mg Tab) 500 mg PO BID [facility] Last Admin: 04/17/20 09:03 Dose: 500 mg Documented by: Cholecalciferol (Cholecalciferol 400 Unit Tab) 400 unit PO DAILY [facility] Last Admin: 04/17/20 09:02 Dose: 400 unit Documented by: Enoxaparin Sodium (Enoxaparin 40 Mg/0.4 Ml Syringe) 40 mg SQ BID [facility] Last Admin: 04/17/20 09:02 Dose: 40 mg Documented by: Fluconazole (Fluconazole 100 Mg Tab) 100 mg PO HS [facility] Last Admin: 04/16/20 22:26 Dose: 100 mg Documented by: Haloperidol Lactate (Haloperidol Lactate 5 Mg/Ml 1 Ml Vial) 2.5 mg IVP Q8HR PRN PRN Reason: Agitation or Acute Psychosis Last Admin: 04/14/20 04:41 Dose: 2.5 mg Documented by: Hydralazine HCl (Hydralazine Hcl 25 Mg Tab) 75 mg PO TID [facility] Last Admin: 04/17/20 09:02 Dose: 75 mg Documented by: Hydromorphone HCl (Hydromorphone 1 Mg/Ml 1 Ml Syringe) 1 mg IVP Q2H PRN PRN Reason: Pain Last Admin: 04/14/20 10:26 Dose: 1 mg Documented by: Sodium Chloride (Saline 0.9%) 1,000 mls @ 50 mls/hr IV .Q20H [facility] Last Admin: 04/17/20 12:22 Dose: 50 mls/hr Documented by: Daptomycin 500 mg/ Sodium (Chloride) 50 mls @ 100 mls/hr IVPB Q24H [facility]; Protocol Last Admin: 04/16/20 22:32 Dose: 100 mls/hr Documented by: Insulin Aspart (Insulin Aspart (Novolog) 100 Unit/Ml Vial) 0 unit SQ ACHS [facility]; Protocol Last Admin: 04/17/20 12:21 Dose: 2 unit Documented by: Methylprednisolone Sodium Succinate (Methylprednisolone Sod Succi 40 Mg/Ml 1 Ml Vial) 40 mg IV Q12HR [facility] Last Admin: 04/17/20 09:02 Dose: 40 mg Documented by: Naloxone HCl (Naloxone 0.4 Mg/Ml 1 Ml Vial) 0.2 mg IV Q2M PRN PRN Reason: Opioid Reversal Pantoprazole Sodium (Pantoprazole 40 Mg Tablet) 40 mg PO BID [facility] Last Admin: 04/17/20 09:02 Dose: 40 mg Documented by: Ropinirole HCl (Ropinirole Hcl 1 Mg Tab) 1 mg PO TID [facility] Last Admin: 04/17/20 09:03 Dose: 1 mg Documented by: Senna (Sennosides 8.6 Mg Tab) 8.6 mg PO BID PRN PRN Reason: Constipation Last Admin: 04/13/20 15:46 Dose: 8.6 mg Documented by: Sertraline HCl (Sertraline 100 Mg Tab) 150 mg PO DAILY [facility] Last Admin: 04/17/20 09:03 Dose: 150 mg Documented by: Sodium Chloride (Sodium Chloride 0.9% Flush 10 Ml Syringe) 10 ml IV Q4HR PRN PRN Reason: PICC Line Sodium Chloride (Sodium Chloride 0.9% Flush 10 Ml Syringe) 10 ml IV WEEKLY [facility] Last Admin: 04/11/20 08:49 Dose: 10 ml Documented by: Sodium Chloride (Sodium Chloride 0.9% Flush 10 Ml Syringe) 20 ml IV Q4HR PRN PRN Reason: PICC Line Zinc Sulfate (Zinc Sulfate 220 Mg Cap) 220 mg PO DAILY [facility] Last Admin: 04/17/20 09:03 Dose: 220 mg Documented by: Objective - Vital Signs Vital signs: Vital Signs Temp 98.0 F 04/17/20 10:35 Pulse 89 04/17/20 10:35 Resp 21 04/17/20 10:35 BP 141/78 04/17/20 10:35 Pulse Ox 92 L 04/17/20 10:35 Intake & Output 04/16/20 04/17/20 04/17/20 18:59 06:59 18:59 Intake Total 600 500 Output Total 200 Balance 400 500 Weight 73 kg 73.5 kg Intake: IV 600 250 Sodium Chloride 0.9% 1, 600 250 000 ml @ 50 mls/hr IV . Q20H [facility] Rx#:[id number] Intake, IV Titration 250 Amount DAPTOmycin 500 mg In 50 Sodium Chloride 0.9% 50 ml @ 100 mls/hr IVPB Q24H [facility] Rx#:[id number] Sodium Chloride 0.9% 1, 200 000 ml @ 50 mls/hr IV . Q20H [facility] Rx#:[id number] Output: Urine 200 Other: Voiding Method Indwelling Catheter Indwelling Catheter Indwelling Catheter - Exam GENERAL: The patient is alert and oriented x2-3, general malaise. Ill-appearing although more awake and responsive today sitting up in the chair. Temp is 98.0F, pulse is 89, respirations are 21, blood pressure is 141/78, oxygen saturation is 92-97% on Airvo with a decreased rate of 45 and slowly titrating down HEENT: Pupils are round and equally reacting to light. EOMI. No scleral icterus. No conjunctival pallor. Normocephalic, atraumatic. No pharyngeal erythema. No thyromegaly. CARDIOVASCULAR: S1 and S2 present. No murmurs, rubs, or gallops. PULMONARY: Diminished breath sounds bilaterally With some scattered no wheezing or rhonchi noted ABDOMEN: Soft, nontender, nondistended, normoactive bowel sounds. No palpable organomegaly. MUSCULOSKELETAL: No joint swelling or deformity. EXTREMITIES: No cyanosis, clubbing, or pedal edema. NEUROLOGICAL: Gross neurological examination did not reveal any focal deficits. Diffusely weak SKIN: No rashes. no petechiae. - Labs CBC & Chem 7: 04/17/20 06:55 04/17/20 06:55 Labs: Abnormal Lab Results - Last 24 Hours (Table) 04/16/20 04/16/20 04/17/20 Range/Units 16:55 21:47 06:55 RDW 17.4 H (11.5-15.5) % Plt Count 141 L (150-450) k/uL Lymphocytes # 0.4 L (1.0-4.8) k/uL POC Glucose (mg/dL) 229 H 243 H (75-99) mg/dL 04/17/20 04/17/20 Range/Units 06:57 11:28 RDW (11.5-15.5) % Plt Count (150-450) k/uL Lymphocytes # (1.0-4.8) k/uL POC Glucose (mg/dL) 119 H 148 H (75-99) mg/dL Assessment and Plan Assessment: Acute respiratory distress syndrome, Covid 19 pneumonia Acute hypoxic respiratory failure secondary to Covid 19 pneumonia, on Airvo Positive blood culture with bacteremia with with Enterococcus faecalis and coagulase negative staph, secondary to PICC line possible sepsis, present on admission, secondary to above Acute GI bleed, currently hemoglobin is stable Uncontrolled hypertension with urgency Elevated liver enzymes with cholelithiasis, improved and patient is asymptomatic history of Fibromyalgia DVT prophylaxis: Subcutaneous Lovenox GI prophylaxis Full code Recommendations and discussion: Recommend continue current medications, management, and symptomatic treatment. Multiple medical consultations following including infectious disease, and pulmonary. No active bleeding noted at this time. Hemoglobin is stable. Patient is maintained on IV daptomycin and will continue at this time urine cultures finalize showing enterococcus VRE. Continue to wean FiO2 as tolerated. Patient currently on Airvo and slow to improve although being titrated down. Incentive spirometer ordered. PT/OT following as she continues to be quite weak. Patient needs continued assistance with meals and dysphasia diet along with head of the bed elevated 30-45 at all times. Will repeat a.m. chest xray. Due to multiple complex medical issues, prognosis is guarded. Further recommendations to follow.
[2020-04-18] MEDS: SODIUM CHLORIDE 0.9% 1,000 ML IV SCH (06:07)
--- NOTE | 2020-04-18 07:09 | XR ---
EXAMINATION TYPE: XR chest 1V portable DATE OF EXAM: 04/18/2020 CLINICAL HISTORY: Difficulty breathing progress study. Covid 19 infection. TECHNIQUE: Single AP portable upright view of the chest is obtained. COMPARISON: Chest x-ray from April 10, 2020 and older studies FINDINGS: Heart size stable and upper limits of normal. Persistent hiatal hernia. Increased reticulo nodular opacities bilaterally with some improved aeration right upper lung on current study. Stable s mall left pleural effusion. Osseous structures remain intact. IMPRESSION: Persistent bilateral multifocal acute infiltrates, perhaps some improved aeration right u pper lung on current study. Stable small left pleural effusion.
[2020-04-18 07:13] LABS: Glucose,Whole Blood 128 mg/dL (75-99)
[2020-04-18] MEDS: INSULIN ASPART (NovoLOG) 100 UNIT/ML VIAL SQ SCH ×5 (09:12→21:04)
[2020-04-18] MEDS: ZINC SULFATE 220 MG CAP PO SCH (09:25)
[2020-04-18] MEDS: PANTOPRAZOLE 40 MG TABLET PO SCH ×2 (09:25→21:03)
[2020-04-18] MEDS: hydrALAZINE HCL 25 MG TAB PO SCH ×3 (09:25→21:03)
[2020-04-18] MEDS: SERTRALINE 100 MG TAB PO SCH (09:25)
[2020-04-18] MEDS: amLODIPine 5 MG TAB PO SCH ×2 (09:26→21:03)
[2020-04-18] MEDS: ENOXAPARIN 40 MG/0.4 ML SYRINGE SQ SCH ×2 (09:26→21:02)
[2020-04-18] MEDS: CHOLECALCIFEROL 400 UNIT TAB PO SCH (09:26)
[2020-04-18] MEDS: methylPREDNISolone SOD SUCCI 40 MG/ML 1 ML VIAL IV SCH ×2 (09:26→21:03)
[2020-04-18] MEDS: ASCORBIC ACID 500 MG TAB PO SCH ×2 (09:26→21:03)
[2020-04-18 11:30] LABS: Glucose,Whole Blood 157 mg/dL (75-99)
--- NOTE | 2020-04-18 15:42 | P.PN ---
Subjective Progress Note Date: 04/18/20 This is a pleasant 69 years old female who has prolonged course in the hospital for more than 2 weeks where originally was admitted for worsening respiratory symptoms related to her covid 19 pneumonia, patient has been followed closely by pulmonary service and she remains on Lovenox, Solu-Medrol and IV hydration. However she still on 50 L of oxygen via high flow nasal cannula. Patient had swollen the problem but eventually found is able to swallow today and she was started on oral medication. Her blood pressure was on the high side and Norvasc increased to 5 mg twice daily and hydralazine to 75 mg 3 times a day. Also surgery team are following the case for acute blood loss for suspected GI bleed, they are planning to do EGD and colonoscopy once she is more clinically stable to tolerate such procedures Patient is also followed closely by ID team being covered by antibiotics with Diflucan and IV vancomycin for positive blood culture with enterococcus faecalis with coagulase-negative staph, suspected to be related to IV PICC line which was discontinued went and tip was sent for culture which is still pending If her enzymes were initially elevated on admission and due to her Covid infection and cholelithiasis, currently they are close to normal. Also patient found hemangioma rather than liver mass for GI team evaluation, however will need follow-up as an outpatient 04/15/2020 Patient is seen and evaluated in follow-up on a medical surgical unit and being closely monitored. Patient remains on Airvo at 50 L and oxygenation continues to be very slow to respond. Pulmonary is following closely along with infectious disease. Patient remains on IV antibiotics in the form of daptomycin as urine cultures finalized showing enterococcus faecium VRE. Surgery following as needed and recommending endoscopy intervention once patient is more stable. The bleeding noted at this time. Hemoglobin is stable at 11.4. Sodium 132, potassium is 4.0, current creatinine is 0.48. Patient's oral intake continues to be poor and needs strong encouragement along with one-to-one supervision and is maintained on dysphagia level III chopped diet. She has no appetite at all. She continues on Lovenox along with vitamin C, vitamin D, zinc supplements, and IV steroids and will continue at this time. PT/OT to evaluate the patient as she continues to be quite weak requiring assistance. 04/16/2020 Patient seen in follow up this morning and is more awake and alert and currently sitting up in the chair. Per nursing staff, she continues to have poor oral intake although has eaten more with each meal today. Patient remains on Airvo although is slowly being titrated down with respiratory and patient tolerating. Infectious disease along with pulmonary following. Hemoglobin remains stable wit h no active bleeding noted. Surgery recommending endoscopy once more stable respiratory randolph. PT/OT following and working with the patient. Patient will require ECF for rehab once stabilized. Patient is maintained on IV daptomycin and will continue at this time. 04/17/2020 Patient was evaluated today and sitting up in the chair currently maintained on Airvo and respiratory has been slowly weaning as tolerated. Patient is more awake and per staff has been eating more of her meals with encouragement. Incentive spirometer ordered and instructed the patient to continue using at least 10 times every hour while awake. Patient is maintained on IV antibiotics and infectious disease following. Patient hemoglobin stable. Labs within normal limits. Pulmonary following as well. PT/OT following. Will repeat am chest xray. Patient is afebrile. 04/18/2020 She is seen in follow-up today currently sitting up in the bed and continues to be quite weak requiring assistance with position changes. Attempts were made to get the patient out of the bed into the chair and she was maximum assistance. Lower extremities continued to be weak. Will have PT/OT work with her in the morning. Patient is maintained on airvo currently being weaned with a flow rate of 35 and FiO2 of 45 with oxygenation of 93%. Patient remains afebrile. No reports of nausea or vomiting and patient is tolerating diet. Patient is drinking ensures and has slowly been increasing her oral intake per nursing staff. Patient instructed to use incentive spirometer at least 10 times every hour while awake. She does fatigue easily but is more alert and responding more appropriately today. She is maintained on IV antibiotics in the form of daptomycin and will continue at this time. Infectious disease along with pulmonary are following closely. Review of systems: Constitutional: Reports fatigue Cardiovascular: No reports of chest pain or palpitations Respiratory: Reports continued shortness of breath although feels it has slightly improved GI: No reports of nausea, vomiting, or diarrhea : No reports of dysuria or retention Neurovascular: reports weakness All medications have been reviewed Active Medications Acetaminophen (Acetaminophen Tab 500 Mg Tab) 1,000 mg PO Q6HR PRN PRN Reason: Fever>101 Alprazolam (Alprazolam 0.25 Mg Tab) 0.25 mg PO QID PRN PRN Reason: Anxiety Last Admin: 04/12/20 21:00 Dose: 0.25 mg Documented by: Amitriptyline HCl (Amitriptyline Hcl 50 Mg Tab) 50 mg PO HS [facility] Last Admin: 04/17/20 21:18 Dose: 50 mg Documented by: Amlodipine Besylate (Amlodipine 5 Mg Tab) 5 mg PO BID [facility] Last Admin: 04/18/20 09:26 Dose: 5 mg Documented by: Ascorbic Acid (Ascorbic Acid 500 Mg Tab) 500 mg PO BID [facility] Last Admin: 04/18/20 09:26 Dose: 500 mg Documented by: Cholecalciferol (Cholecalciferol 400 Unit Tab) 400 unit PO DAILY [facility] Last Admin: 04/18/20 09:26 Dose: 400 unit Documented by: Enoxaparin Sodium (Enoxaparin 40 Mg/0.4 Ml Syringe) 40 mg SQ BID [facility] Last Admin: 04/18/20 09:26 Dose: 40 mg Documented by: Fluconazole (Fluconazole 100 Mg Tab) 100 mg PO [facility] Last Admin: 04/17/20 21:18 Dose: 100 mg Documented by: Haloperidol Lactate (Haloperidol Lactate 5 Mg/Ml 1 Ml Vial) 2.5 mg IVP Q8HR PRN PRN Reason: Agitation or Acute Psychosis Last Admin: 04/14/20 04:41 Dose: 2.5 mg Documented by: Hydralazine HCl (Hydralazine Hcl 25 Mg Tab) 75 mg PO TID [facility] Last Admin: 04/18/20 09:25 Dose: 75 mg Documented by: Hydromorphone HCl (Hydromorphone 1 Mg/Ml 1 Ml Syringe) 1 mg IVP Q2H PRN PRN Reason: Pain Last Admin: 04/14/20 10:26 Dose: 1 mg Documented by: Sodium Chloride (Saline 0.9%) 1,000 mls @ 50 mls/hr IV .Q20H [facility] Last Admin: 04/18/20 06:07 Dose: 50 mls/hr Documented by: Daptomycin 500 mg/ Sodium (Chloride) 50 mls @ 100 mls/hr IVPB Q24H [facility]; Protocol Last Admin: 04/17/20 21:19 Dose: 100 mls/hr Documented by: Insulin Aspart (Insulin Aspart (Novolog) 100 Unit/Ml Vial) 0 unit SQ ACHS [facility]; Protocol Last Admin: 04/18/20 13:34 Dose: 3 unit Documented by: Methylprednisolone Sodium Succinate (Methylprednisolone Sod Succi 40 Mg/Ml 1 Ml Vial) 40 mg IV Q12HR [facility] Last Admin: 04/18/20 09:26 Dose: 40 mg Documented by: Naloxone HCl (Naloxone 0.4 Mg/Ml 1 Ml Vial) 0.2 mg IV Q2M PRN PRN Reason: Opioid Reversal Pantoprazole Sodium (Pantoprazole 40 Mg Tablet) 40 mg PO BID [facility] Last Admin: 04/18/20 09:25 Dose: 40 mg Documented by: Ropinirole HCl (Ropinirole Hcl 1 Mg Tab) 1 mg PO TID [facility] Last Admin: 04/18/20 09:25 Dose: 1 mg Documented by: Senna (Sennosides 8.6 Mg Tab) 8.6 mg PO BID PRN PRN Reason: Constipation Last Admin: 04/13/20 15:46 Dose: 8.6 mg Documented by: Sertraline HCl (Sertraline 100 Mg Tab) 150 mg PO DAILY [facility] Last Admin: 04/18/20 09:25 Dose: 150 mg Documented by: Sodium Chloride (Sodium Chloride 0.9% Flush 10 Ml Syringe) 10 ml IV Q4HR PRN PRN Reason: PICC Line Sodium Chloride (Sodium Chloride 0.9% Flush 10 Ml Syringe) 10 ml IV WEEKLY [facility] Last Admin: 04/18/20 09:26 Dose: 10 ml Documented by: Sodium Chloride (Sodium Chloride 0.9% Flush 10 Ml Syringe) 20 ml IV Q4HR PRN PRN Reason: PICC Line Zinc Sulfate (Zinc Sulfate 220 Mg Cap) 220 mg PO DAILY [facility] Last Admin: 04/18/20 09:25 Dose: 220 mg Documented by: Objective - Vital Signs Vital signs: Vital Signs Temp 97.6 F 04/18/20 05:00 Pulse 81 04/18/20 05:00 Resp 20 04/18/20 05:00 BP 128/77 04/18/20 05:00 Pulse Ox 95 04/18/20 08:05 Intake & Output 04/17/20 04/18/20 04/18/20 18:59 06:59 18:59 Intake Total 600 250 Output Total 500 500 Balance 100 -250 Weight 73.5 kg Intake: IV 600 Sodium Chloride 0.9% 1, 600 000 ml @ 50 mls/hr IV . Q20H [facility] Rx#:[id number] Oral 250 Output: Urine 500 500 Other: Voiding Method Indwelling Catheter Indwelling Catheter - Exam GENERAL: The patient is alert and oriented x2-3, general malaise. Ill-appearing although more awake and responsive today sitting up in the chair. Temp is 97.6 F, pulse is 80, respirations are 17, blood pressure is 133/74, oxygen saturation is 93% on Airvo with a decreased rate of 35 and slowly titrating down HEENT: Pupils are round and equally reacting to light. EOMI. No scleral icterus. No conjunctival pallor. Normocephalic, atraumatic. No pharyngeal erythema. No thyromegaly. CARDIOVASCULAR: S1 and S2 muffled PULMONARY: Diminished breath sounds bilaterally With some scattered no wheezing or rhonchi noted ABDOMEN: Soft, nontender, nondistended, normoactive bowel sounds. No palpable organomegaly. MUSCULOSKELETAL: No joint swelling or deformity. EXTREMITIES: No cyanosis, clubbing, or pedal edema. NEUROLOGICAL: Gross neurological examination did not reveal any focal deficits. Diffusely weak SKIN: No rashes. no petechiae. - Labs CBC & Chem 7: 04/17/20 06:55 04/17/20 06:55 Labs: Abnormal Lab Results - Last 24 Hours (Table) 04/17/20 04/17/20 04/17/20 Range/Units 06:55 11:28 17:06 Sodium 134 L (135-145) mmol/L BUN/Creatinine Ratio 30.00 H (12.00-20.00) Ratio Glucose 129 H (70-110) mg/dL POC Glucose (mg/dL) 148 H 204 H (75-99) mg/dL Calcium 7.6 L (8.7-10.3) mg/dL 04/17/20 04/18/20 Range/Units 20:08 07:11 Sodium (135-145) mmol/L BUN/Creatinine Ratio (12.00-20.00) Ratio Glucose (70-110) mg/dL POC Glucose (mg/dL) 256 H 128 H (75-99) mg/dL Calcium (8.7-10.3) mg/dL Assessment and Plan Assessment: Acute respiratory distress syndrome, Covid 19 pneumonia Acute hypoxic respiratory failure secondary to Covid 19 pneumonia, on Airvo Positive blood culture with bacteremia with with Enterococcus faecalis and coagulase negative staph, secondary to PICC line possible sepsis, present on admission, secondary to above Acute GI bleed, currently hemoglobin is stable Uncontrolled hypertension with urgency Elevated liver enzymes with cholelithiasis, improved and patient is asymptomatic history of Fibromyalgia DVT prophylaxis: Subcutaneous Lovenox GI prophylaxis Full code Recommendations and discussion: Recommend continue current medications, management, and symptomatic treatment. Multiple medical consultations following including infectious disease, and pulmonary. No active bleeding noted at this time. Patient may possibly have endoscopic intervention with GI in the future due to recent GI bleed. No plans for endoscopic interventions at this time. Patient is maintained on IV daptomycin and will continue at this time urine cultures finalize showing enterococcus VRE. Continue to wean FiO2 as tolerated. Patient currently on Airvo and slow to improve although being titrated down. Incentive spirometer reinforced patient instructed to continue using 10 times every hour while awake. PT/OT following as she continues to be quite weak. Patient needs continued assistance with meals and dysphasia diet along with head of the bed elevated 30- 45 at all times. Will repeat a.m. labs. Due to multiple complex medical issues, prognosis is guarded. Further recommendations to follow. Case manage ment and social work following as patient will likely need ECF for continued rehab for strength and mobility.
[2020-04-18 17:04] LABS: Glucose,Whole Blood 115 mg/dL (75-99)
--- NOTE | 2020-04-18 17:27 | PN ---
PROGRESS NOTE DATE OF SERVICE: 04/18/2020 REASON FOR FOLLOWUP: VRE UTI infection and enterococcus bacteremia. INTERVAL HISTORY: The patient is currently more awake and alert. She is breathing comfortably. Denies having any chest pain or shortness of breath. Occasional cough. No abdominal pain. No diarrhea. PHYSICAL EXAMINATION: Blood pressure 133/74 with a pulse of 80, temperature is 97.3, she is 93% on high-flow oxygen. General description is an elderly female up in the bed in no distress. Respiratory system: Unlabored breathing, decreased breath sounds at the bases, no wheeze. Heart S1, S2. Regular rate and rhythm. Abdomen is soft, no tenderness. LABS: No new labs have been obtained today. DIAGNOSTIC IMPRESSION AND PLAN: Patient with enterococcus faecalis bacteremia. Subsequently did have VRE urinary tract infection. Patient is covered with daptomycin. Continue while waiting for condition to stabilize. Repeat blood culture has been negative. Continue supportive care. MMODL / IJN: [id number] /
[2020-04-18 20:54] LABS: Glucose,Whole Blood 187 mg/dL (75-99)
[2020-04-18] MEDS: DAPTOmycin 500 MG in SODIUM CHLORIDE 0.9% 50 ML IVPB SCH (21:03)
[2020-04-18] MEDS: AMITRIPTYLINE HCL 50 MG TAB PO SCH (21:03)
[2020-04-18] MEDS: FLUCONAZOLE 100 MG TAB PO SCH (21:13)
[2020-04-19 04:04] LABS: Anisocytosis Slight; Basophils % (A) 0 %; Eosinophils # (A) 0.1 k/uL (0-0.7); Eosinophils % (A) 1 %; HCT 35.9 % (34.0-46.0); HGB 11.7 gm/dL (11.4-16.0); Hypochromasia Moderate; Lymphocytes # (A) 0.3 k/uL (1.0-4.8); Lymphocytes % (A) 5 %; MCH 28.1 pg (25.0-35.0); MCHC 32.5 g/dL (31.0-37.0); MCV 86.6 fL (80.0-100.0); Mean Platelet Volume 8.6; Monocytes # (A) 0.2 k/uL (0-1.0); Monocytes % (A) 2 %; Neutrophils # (A) 6.2 k/uL (1.3-7.7); Neutrophils % (A) 92 %; Platelet Count 129 k/uL (150-450); Poikilocytosis Slight; RBC 4.14 m/uL (3.80-5.40); RDW 17.4 % (11.5-15.5); WBC 6.8 k/uL (3.8-10.6)
[2020-04-19] MEDS: SODIUM CHLORIDE 0.9% 1,000 ML IV SCH ×2 (05:48→21:19)
[2020-04-19 07:02] LABS: Glucose,Whole Blood 174 mg/dL (75-99)
[2020-04-19] MEDS: PANTOPRAZOLE 40 MG TABLET PO SCH ×2 (08:44→21:11)
[2020-04-19] MEDS: ZINC SULFATE 220 MG CAP PO SCH (08:45)
[2020-04-19] MEDS: amLODIPine 5 MG TAB PO SCH ×2 (08:45→21:11)
[2020-04-19] MEDS: SERTRALINE 100 MG TAB PO SCH (08:45)
[2020-04-19] MEDS: ASCORBIC ACID 500 MG TAB PO SCH ×2 (08:45→21:11)
[2020-04-19] MEDS: methylPREDNISolone SOD SUCCI 40 MG/ML 1 ML VIAL IV SCH ×2 (08:46→21:11)
[2020-04-19] MEDS: hydrALAZINE HCL 25 MG TAB PO SCH ×3 (08:46→21:10)
[2020-04-19] MEDS: ENOXAPARIN 40 MG/0.4 ML SYRINGE SQ SCH ×2 (08:46→21:08)
[2020-04-19] MEDS: INSULIN ASPART (NovoLOG) 100 UNIT/ML VIAL SQ SCH ×4 (08:46→21:08)
[2020-04-19] MEDS: CHOLECALCIFEROL 400 UNIT TAB PO SCH (09:05)
[2020-04-19 09:57] LABS: Anion Gap 8.3 mmol/L (4.00-12.00); Calcium 7.9 mg/dL (8.7-10.3); Carbon Dioxide 22.7 mmol/L (21.6-31.8); Non-African American GFR(CKD) 92.4 (60.0-200.0); Potassium 4.1 mmol/L (3.5-5.5)
[2020-04-19 11:17] LABS: Glucose,Whole Blood 130 mg/dL (75-99)
--- NOTE | 2020-04-19 12:18 | P.PN ---
Subjective Progress Note Date: 04/17/20 Principal diagnosis: Acute hypoxic respiratory failure Covid19 pneumonia Acute respiratory and metabolic acidosis Acute hepatitis/elevated liver enzymes Acute diastolic heart failure and fluid overload Chronic anemia Fibromyalgia Hypertension hypertensive cardiovascular disease 04/17/2020, patient seen eval examined more awake and alert breathing comfortably no obvious distress is present, oxygen being titrated down off of high flow and airvo, on 15 L high flow saturating low to mid 90s mental status more clear tolerating by mouth well extremely weak continued PT OT and supportive care 04/16/2020, patient seen eval examined during the rounds respiratory status co ntinued to improve so as the mental status however is still on high flow air VO oxygen 04/15/2020, patient seen eval examined during the rounds labs reviewed medications reviewed care plan discussed, patient remains on high flow oxygen 15 L 70% oxygen saturation remains marginal low 90s to high 80s previously today noted to be 94%, patient has been tolerating by mouth well, has been moved down from the ICU labs from today reviewed slight hyponatremia noted otherwise fairly within normal limit patient remains on Lovenox along with daptomycin fluconazole, IV steroids, patient has finished usual therapy for covid19 pneumonia 04/14/2020, patient remains on 50% oxygen 70L, awake slightly confused, shortness of breath is not obvious hemodynamic status stable tolerating by mouth well patient will be moved out of the ICU when bed available 04/13/2020, patient seen eval examined during the rounds labs reviewed medications reviewed care plan discussed with the staff, respiratory status remains stable continued to be on the 75% oxygen 15 L high flow, remains afebrile remains on antibiotics patient will be transferred to [facility] with remote telemetry date on today 04/12/2020, patient seen eval examined during rounds labs reviewed medications reviewed, respiratory status remains unchanged, patient remains on 15 L 75% oxygen unable to titrate oxygen down, appetite continued to improve, patient able to swallow well, labs reviewed medications reviewed care plan discussed with the staff at length, patient can be moved out to [facility] with remote telemetry 04/11/2020, patient seen eval examined during evaluation patient noted to be more awake and alert compared to prior exam however patient remains on 15 L 75% aerosolized oxygen high flow, no obvious distress present patient remains afebrile, remains on broad-spectrum antibiotics and usual care for coronary 19 pneumonia April 10 2020 patient seen eval examined sitting upright on the bed breathing comfortably, patient remains on high flow oxygen 15 L 75%, swallow evaluation completed patient able to swallow well will start by mouth blood pressure problem remains an issue we will increase the dose of Norvasc continue oral h ydralazine monitor blood pressure closely, absolute reviewed x-ray reviewed continued to show bilateral interstitial infiltrate predominantly in mid part and basis 04/09/2020, patient seen evanson examined in the ICU, respiratory status remains marginal but stable, patient is on 80% aerosolized oxygen 15 L, saturation is 90%, more awake and alert, swallowing functions will be reassessed later on tod ay by speech therapist, mental status changes agitated behavior and confusion remains an issue which causes blood pressure to go up as well, 04/08/2020, patient seen eval examined during the rounds labs reviewed medications reviewed care plan discussed, patient remains on BiPAP 15/5 with 70% oxygen, oxygen saturation 94% more awake alert, will try high flow aerosolized oxygen, blood culture positive for gram positive cocci in chain, patient is on IV vancomycin he is following 04/07/2020, patient seen eval examined during the rounds labs reviewed medications reviewed, mental status remains stable slightly improved however, patient intermittently get anxious and agitated, low-grade temperature 90 is present hemodynamically stable though, saturation is 90% to 93% on partial nonrebreather mask, chest x-ray remains stable, white cell count remains elevated, 04/06/2020, patient seen eval examined during the rounds labs reviewed medications reviewed, patient remains off of ventilator, mental status slightly better today compared to last 24-48 hours less agitated awake oriented 1 now, remains on partial nonrebreather mask, saturation is 94%, LAD pressure slightly running on the higher side remains on IV hydralazine, oxygen saturation is 94% to 96%, 04/05/2020, patient seen evanson reexamined successfully weaned and extubated yesterday has been on supplemental oxygen 2-4 L, in the last 8-12 hours however decompensation in oxygenation status as well as patient even though awake but r emains agitated appears to have a agitated delirium, does require Dilaudid at a regular interval, remains afebrile, oxygen saturation is 99% on 10 L nonrebreather mask, patient cannot take by mouth medicines are listed IV, will try morphine as needed DC Dilaudid, 04/04/2020, patient seen eval examined during the rounds labs reviewed medications reviewed care plan discussed, patient is awake now remains off of propofol since yesterday, does make intermittent eye contact, remains slightly withdrawn however, respiratory status stable, remains on assist control mode rate of 24, tidal volume is 450, +5 of PEEP, 40% oxygen, peak airway pressure stable, chest x-ray shows bilateral diffuse interstitial infiltrate stable ET tube and NG tube in PICC line, white cell count is 13,400, hemoglobin and hematocrit stable 9.4 and 31, arterial blood gases reviewed pH is 7.4 to pCO2 32 pO2 64, BUN/creatinine is 32 and 0.5, patient is reviewed Lovenox remains 2040 mg subcu twice a day on IV furosemide, Solu-Medrol is 60 mg IV every 6 we'll decrease it to every 12 04/03/2020, patient seen eval examined during rounds labs reviewed medications reviewed, care plan discussed, overall hemodynamically he remains stable blood pressure spiked up on hydralazine when necessary, seems to be helping, patient s edated with propofol drip 50 mics, attempts for weaning of protocol has been unsuccessful as patient becomes agitated, attempted Precedex drip has been unsuccessful as well, current vent settings include assist control rate of 24 breathing 24, FiO2 is 40%, PEEP is 5, tidal volume is 450, chest x-ray stable ET tube with bilateral multifocal infiltrate with consolidation consistent with cold with 19 pneumonia not essentially much change from the prior x-ray, ET tube and NG tube was stable, patient is getting tube feed bolus feeding, labs including ABG chemistry reviewed 04/02/2020, patient seen eval examined during the rounds labs reviewed medications reviewed care plan discussed, patient remains sedated with propofol on ventilator for full ventilator support, currently patient is on assist control mode rate Tuesday for breathing 24, tidal volume is 450, 5 of PEEP, 40% oxygen, propofol is 50 mics, chest x-ray from today reviewed continue show patchy bilateral infiltrate without any significant interval change, arterial blood gases revealed pH of 7.43 pCO2 32, C-reactive protein is down to 21, BUN/creatinine is 34/.49, white cell count and hemoglobin remained stable, medications reviewed, she remains on broad-spectrum antibiotic with cephapirin, Lovenox, gentle diuresis with Lasix, blood pressure control with IV hydralazine, patient remains on high-dose IV steroids, discussed with the staff at length, will stop the propofol drip and once patient is awake put on CPAP 5 pressure s upport of 5 gas after half an hour also check weaning parameters 04/01/2020, patient seen eval examined labs reviewed medications reviewed care plan discussed with the staff at length patient had a sedation holiday today she is arousable and awake follows simple commands with blood pressure went up becomes agitated anxious requiring a reinitiation of propofol drip, ventilator setting remains unchanged, patient is on rate of 24 tidal volume is 450, PEEP is 5, oxygen is 40%, chest x-ray from today reviewed remains overall stable with stable lines and tubes 03/31/2020, patient seen eval examined during the rounds labs reviewed medications reviewed care plan discussed, patient remains on full ventilator support, propofol was changed to Precedex but however patient becomes agitated so back on propofol when setting remains unchanged have been on assist control rate of 24, PEEP is 5, FiO2 is 40%, tidal volume of 450, care plan discussed with the staff at length critical care time 35 minutes 03/30/2020, patient seen eval examined during the rounds labs reviewed medications reviewed, remains sedated with propofol, current vent setting include his control rate of 24 breathing 24 tidal volume is 450, deep is 5 now, FiO2 is 40%, tolerating tube feed very well, chest x-ray reviewed slightly better but stable bilateral infiltrate consistent with atypical pneumonia, patient continued IVs very well with 20 mg Lasix daily, white cell count remained stable, with stable hemoglobin and however decreasing platelet count noted, dear blood gases revealed pH of 7.4 to pCO2 34 pO2 of 62, BUN/creatinine is 36 and 0.62, left he continue show downward trend, inflammatory markers reviewed still elevated but showing a downward trend 03/29/2020, patient seen eval examined during the rounds labs reviewed medications reviewed, care plan discussed with the nursing staff at length, patient has been on assist control rate of the 24 PEEP of 8 400 tidal volume 50% oxygen, ventilator has been adjusted with reduction in PEEP and oxygen, patient's saturation remained stable 91-92%, next step he is to stop propofol and reassess the mental status and if patient remains stable oxygen randolph and hemodynamics can do a CPAP pressure support trial in the meantime we'll continue IV steroids, antibiotics, CBC and ABG reviewed, today's chest x-ray showed bilateral interstitial infiltrate, predominantly at the bases, patient has been on Lasix 20 mg daily diuresing very well, critical care time 35 minutes 03/28/2020, patient seen eval examined during the rounds labs reviewed medications reviewed care plan discussed oxygen has been down to 40% now. The patient is PEEP of 8, otherwise ventilator setting remains stable, patient is scheduled for PICC line later on today, remains on propofol, remains on broad- spectrum antibiotics, labs from today has been reviewed hemoglobin is stable 7.9, d-dimer is 3.24, arterial blood gases stable pH is 7.41 pCO2 35 pO2 96, BUN/creatinine is 51 and 1.05, ferritin level remains more than 26,000, AST ALT continued decline however today is 367 and 558, C-reactive protein checked 69.5 her chest x-ray earlier than today remains there however appears to have slight ly progressed 03/27/2020, patient seen eval examined during the rounds labs reviewed medications reviewed care plan discussed, propofol has been discontinued patient because very restless and anxious, we'll restart propofol, patient has been on full ventilator support assist control 24 tidal volume of 450, PEEP is 10, oxygen is 70%, arterial blood gases reviewed when lower the FiO2 to 60% now plan to bring down the FiO2 to 50% and PEEP of 8 next 24 hours, sputum and blood cultures reviewed no growth so far, chest x-ray performed today reviewed significant improvement in infiltrates seen bilaterally, patient has a poor urine output throughout the night, 20 mg of Lasix was given put out 600 mL of urine patient continued to be on gentle hydration, remain on cefapime and Vanco, Lovenox Solu-Medrol multivitamin and vitamin C zinc and Lovenox, white cell count is stable 10,500 hemoglobin and hematocrit 7.2 and 24, general surgery has been following patient is considered to get EGD and colonoscopy once stable, arterial blood gas revealed pH of 7.39 pCO2 of 39 pO2 of 124, bicarb 25, liver enzymes continue to come down AST and ALT now is 944/809, hepatitis panel normal and nonreactive 03/26/2020, patient seen eval examined in the ICU care plan discussed with the staff, FiO2 has been down to 60%, patient remains on assist control tidal volume of 450, PEEP is 10, respiratory rate is 24 breathing with the respirator pH has been improved significantly, patient is making adequate urine chest x-ray compared with yesterday's x-ray some improvement have been noted, white cell count is 11,000, hemoglobin 7.9 which is stable, arterial blood gas improved to 7.39, pCO2 of 40, pO2 112, BUN/creatinine is 33/0.96, lactic acid was 5.9 down to 1.3 now, ferritin level noted to be 12,800, AST and ALT are 4014 100 with LDH over 21,500, today LFTs significantly improved AST is down to 2795 and ALT is 1222, pro calcitonin is 0.84, suspect some component of heart failure as well as pneumonia, will get an echocardiogram as well as start patient on broad-spectrum antibiotics with cefepime and Vanco Patient seen and evaluated examined in the emergency department, patient came into the ER from the office of Dr. Aleman due to progressive shortness of breath, patient has acute on chronic hypoxic respiratory failure on 4 L oxygen, also has issues associated with pneumonia presumed to be cold with 19, however, testing was negative, patient used to smoke in the remote past quit about 20-30 years ago due to severity or shortness of breath and hypoxia with saturation of 76% on 100% oxygen and respiratory distress patient was intubated due to poor tolerance on BiPAP, patient Covid testing came back positive, chest x-ray showing diffuse infiltrate she also has been noted to have elevated liver enzymes due to elevated liver enzymes will not start IV REMdesivir, Initial ABG pH is 7.18, pCO2 is 63 pO2 was only 33 Objective - Vital Signs Vital signs: Vital Signs Temp 98.0 F 04/17/20 10:35 Pulse 89 04/17/20 10:35 Resp 21 04/17/20 10:35 BP 141/78 04/17/20 10:35 Pulse Ox 92 L 04/17/20 10:35 Intake & Output 04/16/20 04/17/20 04/17/20 18:59 06:59 18:59 Intake Total 600 500 Output Total 200 Balance 400 500 Weight 73 kg 73.5 kg Intake: IV 600 250 Sodium Chloride 0.9% 1, 600 250 000 ml @ 50 mls/hr IV . Q20H [facility] Rx#:[id number] Intake, IV Titration 250 Amount DAPTOmycin 500 mg In 50 Sodium Chloride 0.9% 50 ml @ 100 mls/hr IVPB Q24H [facility] Rx#:[id number] Sodium Chloride 0.9% 1, 200 000 ml @ 50 mls/hr IV . Q20H [facility] Rx#:[id number] Output: Urine 200 Other: Voiding Method Indwelling Catheter Indwelling Catheter Indwelling Catheter - Exam Patient on 80% oxygen 15 L aerosolized saturation is 90% to 92% - Constitutional General appearance: average body habitus, mild distress, restless intermittently agitated - EENT Ears: bilateral: normal - Neck Carotids: bilateral: upstroke normal Thyroid: bilateral: normal size - Respiratory Respiratory: bilateral: diminished - Cardiovascular Rhythm: regular Heart sounds: normal: S1, S2 - Gastrointestinal General gastrointestinal: normal bowel sounds Patient is relatively more awake and alert compared to yesterday exam - Labs CBC & Chem 7: 04/19/20 03:39 04/19/20 03:39 Labs: Abnormal Lab Results - Last 24 Hours (Table) 04/16/20 04/16/20 04/17/20 Range/Units 16:55 21:47 06:55 RDW 17.4 H (11.5-15.5) % Plt Count 141 L (150-450) k/uL Lymphocytes # 0.4 L (1.0-4.8) k/uL POC Glucose (mg/dL) 229 H 243 H (75-99) mg/dL 04/17/20 04/17/20 Range/Units 06:57 11:28 RDW (11.5-15.5) % Plt Count (150-450) k/uL Lymphocytes # (1.0-4.8) k/uL POC Glucose (mg/dL) 119 H 148 H (75-99) mg/dL Assessment and Plan Assessment: Hypertensive urgency, antihypertensive being adjusted Gram-positive bacteremia found to be group D enterococcus patient is on vancomycin Agitated delirium along with metabolic encephalopathy likely multifactorial including Covid 19 pneumonia, is being in ICU, for intubation long period time sepsis, slowly improving Acute hypoxic respiratory failure Covid19 pneumonia Acute pneumonia bacterial bilateral healthcare associated patient is being monitored off of antibiotics now Thrombocytopenia stable Acute respiratory and metabolic acidosis Acute hepatitis/elevated liver enzymes Acute diastolic heart failure Chronic anemia Fibromyalgia Hypertension hypertensive cardiovascular disease Plan: Continue supportive care, avoid benzodiazepine, continue monitor patient's r emains on high flow and also aerosolized oxygen, closely once FiO2 down to nasal cannula will move her out of ICU with that we'll help the delirium as well continue IV vancomycin Monitor intake and output closely keep on even a negative side Patient remains on partial nonrebreather mask was slowly titrate oxygen down as tolerated Trend liver enzymes Patient is not a candidate for IV REMdesivir due to markedly elevated liver enzymes IV steroids, continued to taper in next 24 hours will bring it down to once a day Further recommendations pending plan of care as per clinical response of patient Continue anticoagulation with Lovenox Time with Patient: Greater than 30
--- NOTE | 2020-04-19 12:21 | P.PN ---
Subjective Progress Note Date: 04/18/20 Principal diagnosis: Acute hypoxic respiratory failure Covid19 pneumonia Acute respiratory and metabolic acidosis Acute hepatitis/elevated liver enzymes Acute diastolic heart failure and fluid overload Chronic anemia Fibromyalgia Hypertension hypertensive cardiovascular disease 04/18/2020, patient seen eval examined during the rounds labs reviewed medications reviewed respiratory status remains stable denies any chest pain, patient remains on high flow oxygen, saturation well, discussed was titrated down as tolerated, labs reviewed medications reviewed, currently patient is on 10 L 45% airvo 04/17/2020, patient seen eval examined more awake and alert breathing co mfortably no obvious distress is present, oxygen being titrated down off of high flow and airvo, on 15 L high flow saturating low to mid 80s and dropped down some back on aerosolized oxygen, mental status more clear tolerating by mouth well extremely weak continued PT OT and supportive care 04/16/2020, patient seen eval examined during the rounds respiratory status continued to improve so as the mental status however is still on high flow air VO oxygen 04/15/2020, patient seen eval examined during the rounds labs reviewed medications reviewed care plan discussed, patient remains on high flow oxygen 15 L 70% oxygen saturation remains marginal low 90s to high 80s previously today noted to be 94%, patient has been tolerating by mouth well, has been moved down from the ICU labs from today reviewed slight hyponatremia noted otherwise fairly within normal limit patient remains on Lovenox along with daptomycin fluconazole, IV steroids, patient has finished usual therapy for covid19 pneumonia 04/14/2020, patient remains on 50% oxygen 70L, awake slightly confused, shortness of breath is not obvious hemodynamic status stable tolerating by mouth well patient will be moved out of the ICU when bed available 04/13/2020, patient seen eval examined during the rounds labs reviewed medications reviewed care plan discussed with the staff, respiratory status remains stable continued to be on the 75% oxygen 15 L high flow, remains afebrile remains on antibiotics patient will be transferred to [facility] with remote telemetry date on today 04/12/2020, patient seen eval examined during rounds labs reviewed medications reviewed, respiratory status remains unchanged, patient remains on 15 L 75% oxygen unable to titrate oxygen down, appetite continued to improve, patient able to swallow well, labs reviewed medications reviewed care plan discussed with the staff at length, patient can be moved out to [facility] with remote telemetry 04/11/2020, patient seen eval examined during evaluation patient noted to be more awake and alert compared to prior exam however patient remains on 15 L 75% aerosolized oxygen high flow, no obvious distress present patient remains afebrile, remains on broad-spectrum antibiotics and usual care for coronary 19 pneumonia April 10 2020 patient seen eval examined sitting upright on the bed breathing comfortably, patient remains on high flow oxygen 15 L 75%, swallow evaluation completed patient able to swallow well will start by mouth blood pressure proble m remains an issue we will increase the dose of Norvasc continue oral hydralazine monitor blood pressure closely, absolute reviewed x-ray reviewed continued to show bilateral interstitial infiltrate predominantly in mid part and basis 04/09/2020, patient seen eval examined in the ICU, respiratory status remains marginal but stable, patient is on 80% aerosolized oxygen 15 L, saturation is 90%, more awake and alert, swallowing functions will be reassessed later on today by speech therapist, mental status changes agitated behavior and confusion remains an issue which causes blood pressure to go up as well, 04/08/2020, patient seen eval examined during the rounds labs reviewed medications reviewed care plan discussed, patient remains on BiPAP 15/5 with 70% oxygen, oxygen saturation 94% more awake alert, will try high flow aerosolized oxygen, blood culture positive for gram positive cocci in chain, patient is on IV vancomycin he is following 04/07/2020, patient seen eval examined during the rounds labs reviewed medications reviewed, mental status remains stable slightly improved however, patient intermittently get anxious and agitated, low-grade temperature 90 is present hemodynamically stable though, saturation is 90% to 93% on partial nonrebreather mask, chest x-ray remains stable, white cell count remains elevated, 04/06/2020, patient seen eval examined during the rounds labs reviewed medications reviewed, patient remains off of ventilator, mental status slightly better today compared to last 24-48 hours less agitated awake oriented 1 now, remains on partial nonrebreather mask, saturation is 94%, LAD pressure slightly running on the higher side remains on IV hydralazine, oxygen saturation is 94% to 96%, 04/05/2020, patient seen eval reexamined successfully weaned and extubated yesterday has been on supplemental oxygen 2-4 L, in the last 8-12 hours however decompensation in oxygenation status as well as patient even though awake but remains agitated appears to have a agitated delirium, does require Dilaudid at a regular interval, remains afebrile, oxygen saturation is 99% on 10 L nonrebreather mask, patient cannot take by mouth medicines are listed IV, will t ry morphine as needed DC Dilaudid, 04/04/2020, patient seen eval examined during the rounds labs reviewed medications reviewed care plan discussed, patient is awake now remains off of propofol since yesterday, does make intermittent eye contact, remains slightly withdrawn however, respiratory status stable, remains on assist control mode rate of 24, tidal volume is 450, +5 of PEEP, 40% oxygen, peak airway pressure stable, chest x-ray shows bilateral diffuse interstitial infiltrate stable ET tube and NG tube in PICC line, white cell count is 13,400, hemoglobin and hematocrit stable 9.4 and 31, arterial blood gases reviewed pH is 7.4 to pCO2 32 pO2 64, BUN/creatinine is 32 and 0.5, patient is reviewed Lovenox remains 2040 mg subcu twice a day on IV furosemide, Solu-Medrol is 60 mg IV every 6 we'll decrease it to every 12 04/03/2020, patient seen eval examined during rounds labs reviewed medications reviewed, care plan discussed, overall hemodynamically he remains stable blood pressure spiked up on hydralazine when necessary, seems to be helping, patient sedated with propofol drip 50 mics, attempts for weaning of protocol has been unsuccessful as patient becomes agitated, attempted Precedex drip has been unsuccessful as well, current vent settings include assist control rate of 24 breathing 24, FiO2 is 40%, PEEP is 5, tidal volume is 450, chest x-ray stable ET tube with bilateral multifocal infiltrate with consolidation consistent with cold with 19 pneumonia not essentially much change from the prior x-ray, ET tube and NG tube was stable, patient is getting tube feed bolus feeding, labs including ABG chemistry reviewed 04/02/2020, patient seen eval examined during the rounds labs reviewed medications reviewed care plan discussed, patient remains sedated with propofol on ventilator for full ventilator support, currently patient is on assist control mode rate Tuesday for breathing 24, tidal volume is 450, 5 of PEEP, 40% oxygen, propofol is 50 mics, chest x-ray from today reviewed continue show patchy bilateral infiltrate without any significant interval change, arterial blood gases revealed pH of 7.43 pCO2 32, C-reactive protein is down to 21, BUN/creatinine is 34/.49, white cell count and hemoglobin remained stable, medications reviewed, she remains on broad-spectrum antibiotic with cephapirin, Lovenox, gentle diuresis with Lasix, blood pressure control with IV hydralazine, patient remains on high-dose IV steroids, discussed with the staff at length, will stop the propofol drip and once patient is awake put on CPAP 5 pressure support of 5 gas after half an hour also check weaning parameters 04/01/2020, patient seen eval examined labs reviewed medications reviewed care plan discussed with the staff at length patient had a sedation holiday today she is arousable and awake follows simple commands with blood pressure went up becomes agitated anxious requiring a reinitiation of propofol drip, ventilator setting remains unchanged, patient is on rate of 24 tidal volume is 450, PEEP is 5, oxygen is 40%, chest x-ray from today reviewed remains overall stable with stable lines and tubes 03/31/2020, patient seen eval examined during the rounds labs reviewed medications reviewed care plan discussed, patient remains on full ventilator support, propofol was changed to Precedex but however patient becomes agitated so back on propofol when setting remains unchanged have been on assist control rate of 24, PEEP is 5, FiO2 is 40%, tidal volume of 450, care plan discussed with the staff at length critical care time 35 minutes 03/30/2020, patient seen eval examined during the rounds labs reviewed medications reviewed, remains sedated with propofol, current vent setting include his control rate of 24 breathing 24 tidal volume is 450, deep is 5 now, FiO2 is 40%, tolerating tube feed very well, chest x-ray reviewed slightly better but stable bilateral infiltrate consistent with atypical pneumonia, patient continued IVs very well with 20 mg Lasix daily, white cell count remained stable, with stable hemoglobin and however decreasing platelet count n oted, dear blood gases revealed pH of 7.4 to pCO2 34 pO2 of 62, BUN/creatinine is 36 and 0.62, left he continue show downward trend, inflammatory markers reviewed still elevated but showing a downward trend 03/29/2020, patient seen eval examined during the rounds labs reviewed medications reviewed, care plan discussed with the nursing staff at length, patient has been on assist control rate of the 24 PEEP of 8 400 tidal volume 50% oxygen, ventilator has been adjusted with reduction in PEEP and oxygen, patient's saturation remained stable 91-92%, next step he is to stop propofol and reassess the mental status and if patient remains stable oxygen randolph and hemodynamics can do a CPAP pressure support trial in the meantime we'll continue IV steroids, antibiotics, CBC and ABG reviewed, today's chest x-ray showed bilateral interstitial infiltrate, predominantly at the bases, patient has been on Lasix 20 mg daily diuresing very well, critical care time 35 minutes 03/28/2020, patient seen eval examined during the rounds labs reviewed medications reviewed care plan discussed oxygen has been down to 40% now. The patient is PEEP of 8, otherwise ventilator setting remains stable, patient is scheduled for PICC line later on today, remains on propofol, remains on broad- spectrum antibiotics, labs from today has been reviewed hemoglobin is stable 7.9, d-dimer is 3.24, arterial blood gases stable pH is 7.41 pCO2 35 pO2 96, BUN/creatinine is 51 and 1.05, ferritin level remains more than 26,000, AST ALT continued decline however today is 367 and 558, C-reactive protein checked 69.5 her chest x-ray earlier than today remains there however appears to have slightly progressed 03/27/2020, patient seen eval examined during the rounds labs reviewed medications reviewed care plan discussed, propofol has been discontinued patient because very restless and anxious, we'll restart propofol, patient has been on full ventilator support assist control 24 tidal volume of 450, PEEP is 10, oxygen is 70%, arterial blood gases reviewed when lower the FiO2 to 60% now plan to bring down the FiO2 to 50% and PEEP of 8 next 24 hours, sputum and blood cultures reviewed no growth so far, chest x-ray performed today reviewed significant improvement in infiltrates seen bilaterally, patient has a poor u rine output throughout the night, 20 mg of Lasix was given put out 600 mL of urine patient continued to be on gentle hydration, remain on cefapime and Vanco, Lovenox Solu-Medrol multivitamin and vitamin C zinc and Lovenox, white cell count is stable 10,500 hemoglobin and hematocrit 7.2 and 24, general surgery has been following patient is considered to get EGD and colonoscopy once stable, arterial blood gas revealed pH of 7.39 pCO2 of 39 pO2 of 124, bicarb 25, liver enzymes continue to come down AST and ALT now is 944/809, hepatitis panel normal and nonreactive 03/26/2020, patient seen eval examined in the ICU care plan discussed with the staff, FiO2 has been down to 60%, patient remains on assist control tidal volume of 450, PEEP is 10, respiratory rate is 24 breathing with the respirator pH has been improved significantly, patient is making adequate urine chest x-ray compared with yesterday's x-ray some improvement have been noted, white cell count is 11,000, hemoglobin 7.9 which is stable, arterial blood gas improved to 7.39, pCO2 of 40, pO2 112, BUN/creatinine is 33/0.96, lactic acid was 5.9 down to 1.3 now, ferritin level noted to be 12,800, AST and ALT are 4014 100 with LDH over 21,500, today LFTs significantly improved AST is down to 2795 and ALT is 1222, pro calcitonin is 0.84, suspect some component of heart failure as well as pneumonia, will get an echocardiogram as well as start patient on broad-spectrum antibiotics with cefepime and Vanco Patient seen and evaluated examined in the emergency department, patient came into the ER from the office of Dr. Aleman due to progressive shortness of breath, patient has acute on chronic hypoxic respiratory failure on 4 L oxygen, also has issues associated with pneumonia presumed to be cold with 19, however, testing was negative, patient used to smoke in the remote past quit about 20-30 years ago due to severity or shortness of breath and hypoxia with saturation of 76% on 100% oxygen and respiratory distress patient was intubated due to poor tolerance on BiPAP, patient Covid testing came back positive, chest x-ray showing diffuse infiltrate she also has been noted to have elevated liver enzymes due to elevated liver enzymes will not start IV REMdesivir, Initial ABG pH is 7.18, pCO2 is 63 pO2 was only 33 Objective - Vital Signs Vital signs: Vital Signs Temp 97.6 F 04/18/20 10:34 Pulse 80 04/18/20 10:34 Resp 17 04/18/20 10:34 BP 133/74 04/18/20 10:34 Pulse Ox 94 L 04/18/20 15:51 Intake & Output 04/17/20 04/18/20 04/18/20 18:59 06:59 18:59 Intake Total 600 250 120 Output Total 500 500 Balance 100 -250 120 Weight 73.5 kg Intake: IV 600 Sodium Chloride 0.9% 1, 600 000 ml @ 50 mls/hr IV . Q20H [facility] Rx#:[id number] Oral 250 120 Output: Urine 500 500 Other: Voiding Method Indwelling Catheter Indwelling Catheter Indwelling Catheter - Exam Patient on 80% oxygen 15 L aerosolized saturation is 90% to 92% - Constitutional General appearance: average body habitus, mild distress, restless intermittently agitated - EENT Ears: bilateral: normal - Neck Carotids: bilateral: upstroke normal Thyroid: bilateral: normal size - Respiratory Respiratory: bilateral: diminished - Cardiovascular Rhythm: regular Heart sounds: normal: S1, S2 - Gastrointestinal General gastrointestinal: normal bowel sounds Patient is relatively more awake and alert compared to yesterday exam - Labs CBC & Chem 7: 04/19/20 03:39 04/19/20 03:39 Labs: Abnormal Lab Results - Last 24 Hours (Table) 04/17/20 04/17/20 04/17/20 Range/Units 06:55 17:06 20:08 Sodium 134 L (135-145) mmol/L BUN/Creatinine Ratio 30.00 H (12.00-20.00) Ratio Glucose 129 H (70-110) mg/dL POC Glucose (mg/dL) 204 H 256 H (75-99) mg/dL Calcium 7.6 L (8.7-10.3) mg/dL 04/18/20 04/18/20 Range/Units 07:11 11:28 Sodium (135-145) mmol/L BUN/Creatinine Ratio (12.00-20.00) Ratio Glucose (70-110) mg/dL POC Glucose (mg/dL) 128 H 157 H (75-99) mg/dL Calcium (8.7-10.3) mg/dL Assessment and Plan Assessment: Hypertensive urgency, antihypertensive being adjusted Gram-positive bacteremia found to be group D enterococcus patient is on vancomycin Agitated delirium along with metabolic encephalopathy likely multifactorial including Covid 19 pneumonia, is being in ICU, for intubation long period time sepsis, slowly improving Acute hypoxic respiratory failure Covid19 pneumonia Acute pneumonia bacterial bilateral healthcare associated patient is being monitored off of antibiotics now Thrombocytopenia stable Acute respiratory and metabolic acidosis Acute hepatitis/elevated liver enzymes Acute diastolic heart failure Chronic anemia Fibromyalgia Hypertension hypertensive cardiovascular disease Plan: Continue supportive care, avoid benzodiazepine, continue monitor patient's remains on high flow and also aerosolized oxygen, closely once FiO2 down to nasal cannula will move her out of ICU with that we'll help the delirium as well continue IV vancomycin Monitor intake and output closely keep on even a negative side Patient remains on partial nonrebreather mask was slowly titrate oxygen down as tolerated Trend liver enzymes Patient is not a candidate for IV REMdesivir due to markedly elevated liver enzymes IV steroids, continued to taper in next 24 hours will bring it down to once a day Further recommendations pending plan of care as per clinical response of patient Continue anticoagulation with Lovenox Time with Patient: Greater than 30
--- NOTE | 2020-04-19 12:24 | P.PN ---
Subjective Progress Note Date: 04/19/20 Principal diagnosis: Acute hypoxic respiratory failure Covid19 pneumonia Acute respiratory and metabolic acidosis Acute hepatitis/elevated liver enzymes Acute diastolic heart failure and fluid overload Chronic anemia Fibromyalgia Hypertension hypertensive cardiovascular disease 04/19/2020, patient seen eval examined during the rounds labs reviewed medications reviewed, patient is now down to 8 L from 10 L, saturation is mid 90s, respiratory status stable, we'll continue titrated oxygen down as tolerated slowly 2-3 L in 24 hours as tolerated 04/18/2020, patient seen eval examined during the rounds labs reviewed medications reviewed respiratory status remains stable denies any chest pain, patient remains on high flow oxygen, saturation well, discussed was titrated down as tolerated, labs reviewed medications reviewed, currently patient is on 10 L 45% airvo 04/17/2020, patient seen eval examined more awake and alert breathing comfortably no obvious distress is present, oxygen being titrated down off of high flow and airvo, on 15 L high flow saturating low to mid 80s and dropped down some back on aerosolized oxygen, mental status more clear tolerating by m outh well extremely weak continued PT OT and supportive care 04/16/2020, patient seen eval examined during the rounds respiratory status continued to improve so as the mental status however is still on high flow air VO oxygen 04/15/2020, patient seen eval examined during the rounds labs reviewed m edications reviewed care plan discussed, patient remains on high flow oxygen 15 L 70% oxygen saturation remains marginal low 90s to high 80s previously today noted to be 94%, patient has been tolerating by mouth well, has been moved down from the ICU labs from today reviewed slight hyponatremia noted otherwise fairly within normal limit patient remains on Lovenox along with daptomycin fluconazole, IV steroids, patient has finished usual therapy for covid19 pneumonia 04/14/2020, patient remains on 50% oxygen 70L, awake slightly confused, shortness of breath is not obvious hemodynamic status stable tolerating by mouth well patient will be moved out of the ICU when bed available 04/13/2020, patient seen eval examined during the rounds labs reviewed medications reviewed care plan discussed with the staff, respiratory status remains stable continued to be on the 75% oxygen 15 L high flow, remains afebrile remains on antibiotics patient will be transferred to [facility] with remote telemetry date on today 04/12/2020, patient seen eval examined during rounds labs reviewed medications reviewed, respiratory status remains unchanged, patient remains on 15 L 75% oxygen unable to titrate oxygen down, appetite continued to improve, patient able to swallow well, labs reviewed medications reviewed care plan discussed with the staff at length, patient can be moved out to [facility] with remote te lemetry 04/11/2020, patient seen eval examined during evaluation patient noted to be more awake and alert compared to prior exam however patient remains on 15 L 75% aerosolized oxygen high flow, no obvious distress present patient remains afebrile, remains on broad-spectrum antibiotics and usual care for coronary 19 pneumonia April 10 2020 patient seen eval examined sitting upright on the bed breathing comfortably, patient remains on high flow oxygen 15 L 75%, swallow evaluation completed patient able to swallow well will start by mouth blood pressure problem remains an issue we will increase the dose of Norvasc continue oral hydralazine monitor blood pressure closely, absolute reviewed x-ray reviewed continued to show bilateral interstitial infiltrate predominantly in mid part and basis 04/09/2020, patient seen eval examined in the ICU, respiratory status remains marginal but stable, patient is on 80% aerosolized oxygen 15 L, saturation is 90%, more awake and alert, swallowing functions will be reassessed later on today by speech therapist, mental status changes agitated behavior and confusion remains an issue which causes blood pressure to go up as well, 04/08/2020, patient seen eval examined during the rounds labs reviewed medications reviewed care plan discussed, patient remains on BiPAP 15/5 with 70% oxygen, oxygen saturation 94% more awake alert, will try high flow aerosolized oxygen, blood culture positive for gram positive cocci in chain, patient is on IV vancomycin he is following 04/07/2020, patient seen eval examined during the rounds labs reviewed medica tions reviewed, mental status remains stable slightly improved however, patient intermittently get anxious and agitated, low-grade temperature 90 is present hemodynamically stable though, saturation is 90% to 93% on partial nonrebreather mask, chest x-ray remains stable, white cell count remains elevated, 04/06/2020, patient seen eval examined during the rounds labs reviewed medications reviewed, patient remains off of ventilator, mental status slightly better today compared to last 24-48 hours less agitated awake oriented 1 now, remains on partial nonrebreather mask, saturation is 94%, LAD pressure slightly running on the higher side remains on IV hydralazine, oxygen saturation is 94% to 96%, 04/05/2020, patient seen eval reexamined successfully weaned and extubated yesterday has been on supplemental oxygen 2-4 L, in the last 8-12 hours however decompensation in oxygenation status as well as patient even though awake but remains agitated appears to have a agitated delirium, does require Dilaudid at a regular interval, remains afebrile, oxygen saturation is 99% on 10 L nonrebreath er mask, patient cannot take by mouth medicines are listed IV, will try morphine as needed DC Dilaudid, 04/04/2020, patient seen eval examined during the rounds labs reviewed medications reviewed care plan discussed, patient is awake now remains off of propofol since yesterday, does make intermittent eye contact, remains slightly withdrawn however, respiratory status stable, remains on assist control mode rate of 24, tidal volume is 450, +5 of PEEP, 40% oxygen, peak airway pressure stable, chest x-ray shows bilateral diffuse interstitial infiltrate stable ET tube and NG tube in PICC line, white cell count is 13,400, hemoglobin and hematocrit stable 9.4 and 31, arterial blood gases reviewed pH is 7.4 to pCO2 32 pO2 64, BUN/creatinine is 32 and 0.5, patient is reviewed Lovenox remains 2040 mg subcu twice a day on IV furosemide, Solu-Medrol is 60 mg IV every 6 we'll decrease it to every 12 04/03/2020, patient seen eval examined during rounds labs reviewed medications reviewed, care plan discussed, overall hemodynamically he remains stable blood pressure spiked up on hydralazine when necessary, seems to be helping, patient sedated with propofol drip 50 mics, attempts for weaning of protocol has been unsuccessful as patient becomes agitated, attempted Precedex drip has been unsuccessful as well, current vent settings include assist control rate of 24 breathing 24, FiO2 is 40%, PEEP is 5, tidal volume is 450, chest x-ray stable ET tube with bilateral multifocal infiltrate with consolidation consistent with cold with 19 pneumonia not essentially much change from the prior x-ray, ET tube and NG tube was stable, patient is getting tube feed bolus feeding, labs including ABG chemistry reviewed 04/02/2020, patient seen eval examined during the rounds labs reviewed medications reviewed care plan discussed, patient remains sedated with propofol on ventilator for full ventilator support, currently patient is on assist control mode rate Tuesday for breathing 24, tidal volume is 450, 5 of PEEP, 40% oxygen, propofol is 50 mics, chest x-ray from today reviewed continue show patch y bilateral infiltrate without any significant interval change, arterial blood gases revealed pH of 7.43 pCO2 32, C-reactive protein is down to 21, BUN/creatinine is 34/.49, white cell count and hemoglobin remained stable, medications reviewed, she remains on broad-spectrum antibiotic with cephapirin, Lovenox, gentle diuresis with Lasix, blood pressure control with IV hydralazine, patient remains on high-dose IV steroids, discussed with the staff at length, will stop the propofol drip and once patient is awake put on CPAP 5 pressure support of 5 gas after half an hour also check weaning parameters 04/01/2020, patient seen eval examined labs reviewed medications reviewed care plan discussed with the staff at length patient had a sedation holiday today she is arousable and awake follows simple commands with blood pressure went up becomes agitated anxious requiring a reinitiation of propofol drip, ventilator setting remains unchanged, patient is on rate of 24 tidal volume is 450, PEEP is 5, oxygen is 40%, chest x-ray from today reviewed remains overall stable with stable lines and tubes 03/31/2020, patient seen eval examined during the rounds labs reviewed medications reviewed care plan discussed, patient remains on full ventilator support, propofol was changed to Precedex but however patient becomes agitated so back on propofol when setting remains unchanged have been on assist control rate of 24, PEEP is 5, FiO2 is 40%, tidal volume of 450, care plan discussed with the staff at length critical care time 35 minutes 03/30/2020, patient seen eval examined during the rounds labs reviewed medications reviewed, remains sedated with propofol, current vent setting include his control rate of 24 breathing 24 tidal volume is 450, deep is 5 now, FiO2 is 40%, tolerating tube feed very well, chest x-ray reviewed slightly better but stable bilateral infiltrate consistent with atypical pneumonia, patient continued IVs very well with 20 mg Lasix daily, white cell count remained stable, with stable hemoglobin and however decreasing platelet count noted, dear blood gases revealed pH of 7.4 to pCO2 34 pO2 of 62, BUN/creatinine is 36 and 0.62, left he continue show downward trend, inflammatory markers reviewed still elevated but showing a downward trend 03/29/2020, patient seen eval examined during the rounds labs reviewed medications reviewed, care plan discussed with the nursing staff at length, patient has been on assist control rate of the 24 PEEP of 8 400 tidal volume 50% oxygen, ventilator has been adjusted with reduction in PEEP and oxygen, patient's saturation remained stable 91-92%, next step he is to stop propofol and reassess the mental status and if patient remains stable oxygen randolph and hemodynamics can do a CPAP pressure support trial in the meantime we'll continue IV steroids, antibiotics, CBC and ABG reviewed, today's chest x-ray showed bilateral interstitial infiltrate, predominantly at the bases, patient has been on Lasix 20 mg daily diuresing very well, critical care time 35 minutes 03/28/2020, patient seen eval examined during the rounds labs reviewed medications reviewed care plan discussed oxygen has been down to 40% now. The patient is PEEP of 8, otherwise ventilator setting remains stable, patient is scheduled for PICC line later on today, remains on propofol, remains on broad- spectrum antibiotics, labs from today has been reviewed hemoglobin is stable 7.9, d-dimer is 3.24, arterial blood gases stable pH is 7.41 pCO2 35 pO2 96, BUN/creatinine is 51 and 1.05, ferritin level remains more than 26,000, AST ALT continued decline however today is 367 and 558, C-reactive protein checked 69.5 her chest x-ray earlier than today remains there however appears to have slightly progressed 03/27/2020, patient seen eval examined during the rounds labs reviewed medications reviewed care plan discussed, propofol has been discontinued patient because very restless and anxious, we'll restart propofol, patient has been on full ventilator support assist control 24 tidal volume of 450, PEEP is 10, oxygen is 70%, arterial blood gases reviewed when lower the FiO2 to 60% now plan to bring down the FiO2 to 50% and PEEP of 8 next 24 hours, sputum and blood cultures reviewed no growth so far, chest x-ray performed today reviewed significant improvement in infiltrates seen bilaterally, patient has a poor urine output throughout the night, 20 mg of Lasix was given put out 600 mL of urine patient continued to be on gentle hydration, remain on cefapime and Vanco, Lovenox Solu-Medrol multivitamin and vitamin C zinc and Lovenox, white cell count is stable 10,500 hemoglobin and hematocrit 7.2 and 24, general surgery has been following patient is considered to get EGD and colonoscopy once stable, arterial blood gas revealed pH of 7.39 pCO2 of 39 pO2 of 124, bicarb 25, liver enzymes continue to come down AST and ALT now is 944/809, hepatitis panel normal and nonreactive 03/26/2020, patient seen eval examined in the ICU care plan discussed with the staff, FiO2 has been down to 60%, patient remains on assist control tidal volume of 450, PEEP is 10, respiratory rate is 24 breathing with the respirator pH has been improved significantly, patient is making adequate urine chest x-ray compared with yesterday's x-ray some improvement have been noted, white cell count is 11,000, hemoglobin 7.9 which is stable, arterial blood gas improved to 7.39, pCO2 of 40, pO2 112, BUN/creatinine is 33/0.96, lactic acid was 5.9 down to 1.3 now, ferritin level noted to be 12,800, AST and ALT are 4014 100 with LDH over 21,500, today LFTs significantly improved AST is down to 2795 and ALT is 1222, pro calcitonin is 0.84, suspect some component of heart failure as well as pneumonia, will get an echocardiogram as well as start patient on broad-spectrum antibiotics with cefepime and Vanco Patient seen and evaluated examined in the emergency department, patient came into the ER from the office of Dr. Aleman due to progressive shortness of breath, patient has acute on chronic hypoxic respiratory failure on 4 L oxygen, also has issues associated with pneumonia presumed to be cold with 19, however, testing was negative, patient used to smoke in the remote past quit about 20-30 years ago due to severity or shortness of breath and hypoxia with saturation of 76% on 100% oxygen and respiratory distress patient was intubated due to poor t olerance on BiPAP, patient Covid testing came back positive, chest x-ray showing diffuse infiltrate she also has been noted to have elevated liver enzymes due to elevated liver enzymes will not start IV REMdesivir, Initial ABG pH is 7.18, pCO2 is 63 pO2 was only 33 Objective - Vital Signs Vital signs: Vital Signs Temp 97.7 F 04/19/20 11:11 Pulse 77 04/19/20 11:11 Resp 16 04/19/20 11:11 BP 144/78 01/02/21 11:11 Pulse Ox 95 04/19/20 11:11 Intake & Output 04/18/20 04/19/20 04/19/20 18:59 06:59 18:59 Intake Total 120 600 Output Total 600 1050 1500 Balance -480 -450 -1500 Weight 75 kg Intake: IV 600 Sodium Chloride 0.9% 1, 600 000 ml @ 50 mls/hr IV . Q20H [facility] Rx#:[id number] Oral 120 Output: Urine 600 1050 1500 Uretheral (Quick) 525 Other: Voiding Method Indwelling Catheter Indwelling Catheter Indwelling Catheter - Exam Patient on 80% oxygen 15 L aerosolized saturation is 90% to 92% - Constitutional General appearance: average body habitus, mild distress, restless intermittently agitated - EENT Ears: bilateral: normal - Neck Carotids: bilateral: upstroke normal Thyroid: bilateral: normal size - Respiratory Respiratory: bilateral: diminished - Cardiovascular Rhythm: regular Heart sounds: normal: S1, S2 - Gastrointestinal General gastrointestinal: normal bowel sounds Patient is relatively more awake and alert compared to yesterday exam - Labs CBC & Chem 7: 04/19/20 03:39 04/19/20 03:39 Labs: Abnormal Lab Results - Last 24 Hours (Table) 04/18/20 04/18/20 04/19/20 Range/Units 17:03 20:53 03:39 RDW 17.4 H (11.5-15.5) % Plt Count 129 L (150-450) k/uL Lymphocytes # 0.3 L (1.0-4.8) k/uL Sodium (135-145) mmol/L BUN/Creatinine Ratio (12.00-20.00) Ratio Glucose (70-110) mg/dL POC Glucose (mg/dL) 115 H 187 H (75-99) mg/dL Calcium (8.7-10.3) mg/dL 04/19/20 04/19/20 04/19/20 Range/Units 03:39 07:00 11:15 RDW (11.5-15.5) % Plt Count (150-450) k/uL Lymphocytes # (1.0-4.8) k/uL Sodium 129 L (135-145) mmol/L BUN/Creatinine Ratio 25.00 H (12.00-20.00) Ratio Glucose 193 H (70-110) mg/dL POC Glucose (mg/dL) 174 H 130 H (75-99) mg/dL Calcium 7.9 L (8.7-10.3) mg/dL Assessment and Plan Assessment: Hypertensive urgency, antihypertensive being adjusted Gram-positive bacteremia found to be group D enterococcus patient is on vancomycin Agitated delirium along with metabolic encephalopathy likely multifactorial including Covid 19 pneumonia, is being in ICU, for intubation long period time sepsis, slowly improving Acute hypoxic respiratory failure Covid19 pneumonia Acute pneumonia bacterial bilateral healthcare associated patient is being monitored off of antibiotics now Thrombocytopenia stable Acute respiratory and metabolic acidosis Acute hepatitis/elevated liver enzymes Acute diastolic heart failure Chronic anemia Fibromyalgia Hypertension hypertensive cardiovascular disease Plan: Continue supportive care, Continue daptomycin Monitor intake and output closely keep on even a negative side Patient remains on partial nonrebreather mask was slowly titrate oxygen down as tolerated Trend liver enzymes Patient is not a candidate for IV REMdesivir due to markedly elevated liver enzymes IV steroids, Further recommendations pending plan of care as per clinical response of patient Continue anticoagulation with Lovenox Time with Patient: Greater than 30
[2020-04-19 16:50] LABS: Glucose,Whole Blood 146 mg/dL (75-99)
--- NOTE | 2020-04-19 17:31 | PN ---
PROGRESS NOTE DATE OF SERVICE: 04/19/2020 This 69-year-old woman who was admitted with acute COVID-19 pneumonia on AIRVO also had positive blood cultures with bacteremia with Enterococcus faecalis and coagulase- negative Staph. The most recent blood cultures are on April 09 negative so far. The urine culture is also positive with VRE also. The patient is being closely monitored. Patient is being treated in at this time. The patient is currently on daptomycin. Infectious Disease following the patient closely. PAST MEDICAL HISTORY: Reviewed. REVIEW OF SYSTEMS: Cardiovascular: No angina. RESPIRATORY: As mentioned earlier. GI as mentioned. : No dysuria. NERVOUS SYSTEM: No numbness, no weakness. CURRENT MEDICATIONS: Reviewed include Tylenol, Xanax, Elavil, Norvasc, multivitamins, vitamin D, daptomycin. Doses reviewed. PHYSICAL EXAM: Patient is alert, oriented x2. Pulse is 77. Blood pressure 140/70, respirations 16, temperature 97.7, pulse ox 94% on 8 L. HEENT: Conjunctivae normal. Neck: No JVD. CARDIOVASCULAR: S1, S2 muffled. Respirations: Breath sounds diminished in the bases. Bilateral scattered rhonchi and crackles. ABDOMEN: Soft. Nontender. Legs are: No edema. No swelling. NERVOUS SYSTEM: Diffusely weak any emaciated. LABS: WBC 6.8, platelets 129. ASSESSMENT: 1. Acute COVID-19 pneumonia with acute hypoxic respiratory failure and acute respiratory distress syndrome. 2. Enterococcus faecalis septicemia. 3. Urinary tract infection with enterococcus and as well as sepsis. 4. Possible coagulase-negative Staph sepsis secondary to PICC line infection, possible sepsis secondary to infection. 5. Severe acute hypoxic respiratory failure. 6. 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 7. Acute gastrointestinal bleed, currently hemoglobin stable. 8. Uncontrolled hypertension, hypertensive emergency. 9. Increased LFTs possibly secondary to Covid pneumonia. 10.Fibromyalgia. 11.Deep vein thrombosis prophylaxis and gastrointestinal prophylaxis. 12.Hyponatremia. 13.Thrombocytopenia. 14.Hypertension. 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 16.Remote history of nicotine dependence. 17.FULL CODE. RECOMMENDATIONS AND DISCUSSION: This 69-year-old woman who presented with multiple complex medical issues, we will monitor the patient closely. Continue the current medications, management and continue Daptomycin. PT/OT evaluation. Continue to titrate AIRVO, bronchodilators. Closely follow and encourage incentive spirometry. Repeat labs. Guarded prognosis because of multiple complex medical issues as detailed above. Further recommendations to follow. Most recent chest x-ray which was done yesterday was personally reviewed by me which showed significant bilateral interstitial lesions and continued Covid 19 pneumonia. MMODL / IJN: [id number] / MTDD
[2020-04-19 20:04] LABS: Glucose,Whole Blood 282 mg/dL (75-99)
[2020-04-19] MEDS: DAPTOmycin 500 MG in SODIUM CHLORIDE 0.9% 50 ML IVPB SCH (21:11)
[2020-04-19] MEDS: AMITRIPTYLINE HCL 50 MG TAB PO SCH (21:11)
[2020-04-19] MEDS: FLUCONAZOLE 100 MG TAB PO SCH (21:11)
--- NOTE | 2020-04-19 23:11 | PN ---
PROGRESS NOTE DATE OF SERVICE: 04/19/2020 REASON FOR FOLLOWUP: VRE urinary tract infection and Enterococcus bacteremia. INTERVAL HISTORY: Patient is currently afebrile. Patient is breathing comfortably currently on nasal cannula oxygen. Denies having any chest pain. Did have minimal cough. No nausea, no vomiting. No abdominal pain or diarrhea. PHYSICAL EXAMINATION: Blood pressure is 143/77 with a pulse of 80, temperature 98.5. She is a 97% on 2L. General description is an elderly female lying in bed in no distress. Respiratory system: Unlabored breathing, decreased breath sounds at bases, no wheeze. Heart S1, S2. Regular rate and rhythm. Abdomen soft, no tenderness. LABS: Hemoglobin 9.7, white count 6.2, BUN of 15, creatinine 0.6. DIAGNOSTIC IMPRESSION AND PLAN: Patient with bacteremia in this patient also have VRE UTI. Patient is currently covered with daptomycin, to continue. Follow up blood culture for negative and monitor clinical course closely. MMODL / IJN: [id number] / MTDAngelia
[2020-04-20 04:27] LABS: Anisocytosis Slight; Basophils % (A) 0 %; Eosinophils % (A) 1 %; HCT 36.2 % (34.0-46.0); HGB 11.8 gm/dL (11.4-16.0); Hypochromasia Moderate; Lymphocytes # (A) 0.4 k/uL (1.0-4.8); Lymphocytes % (A) 5 %; MCHC 32.4 g/dL (31.0-37.0); MCV 86.2 fL (80.0-100.0); Mean Platelet Volume 8.8; Monocytes # (A) 0.2 k/uL (0-1.0); Monocytes % (A) 3 %; Neutrophils % (A) 91 %; Platelet Count 143 k/uL (150-450); Poikilocytosis Slight; RDW 17.4 % (11.5-15.5); WBC 7.7 k/uL (3.8-10.6)
[2020-04-20 06:57] LABS: Glucose,Whole Blood 153 mg/dL (75-99)
[2020-04-20] MEDS: INSULIN ASPART (NovoLOG) 100 UNIT/ML VIAL SQ SCH ×4 (09:12→21:53)
[2020-04-20] MEDS: hydrALAZINE HCL 25 MG TAB PO SCH ×3 (09:13→21:53)
[2020-04-20] MEDS: methylPREDNISolone SOD SUCCI 40 MG/ML 1 ML VIAL IV SCH ×2 (09:13→21:53)
[2020-04-20] MEDS: SERTRALINE 100 MG TAB PO SCH (09:13)
[2020-04-20] MEDS: ZINC SULFATE 220 MG CAP PO SCH (09:13)
[2020-04-20] MEDS: amLODIPine 5 MG TAB PO SCH ×2 (09:13→21:53)
[2020-04-20] MEDS: ASCORBIC ACID 500 MG TAB PO SCH ×2 (09:14→21:53)
[2020-04-20] MEDS: CHOLECALCIFEROL 400 UNIT TAB PO SCH (09:14)
[2020-04-20] MEDS: PANTOPRAZOLE 40 MG TABLET PO SCH ×2 (09:15→21:53)
[2020-04-20] MEDS: ENOXAPARIN 40 MG/0.4 ML SYRINGE SQ SCH ×2 (09:15→21:54)
[2020-04-20 10:21] LABS: African American GFR (CKD) 113.7 (60.0-200.0); Calcium 7.9 mg/dL (8.7-10.3); Non-African American GFR(CKD) 98.1 (60.0-200.0); Potassium 4.2 mmol/L (3.5-5.5)
[2020-04-20 11:12] LABS: Glucose,Whole Blood 151 mg/dL (75-99)
--- NOTE | 2020-04-20 15:23 | PN ---
PROGRESS NOTE DATE OF SERVICE: 04/20/2020 I am covering for Dr. Aleman. HISTORY OF PRESENT ILLNESS: This 69-year-old woman was admitted with COVID-19 pneumonia. She was on AIRVO. The patient also had positive blood culture bacteremia with Enterococcus faecalis and coagulase negative staph. The patient is being closely monitored at this time. AIRVO has been titrated off. The patient is currently on nasal cannula on 8 L nasal cannula with saturation 93. Sensorium is also much improved. Patient complaining of extreme severe weakness and fatigue and might require ECF rehab. PAST MEDICAL HISTORY: Reviewed. REVIEW OF SYSTEMS: CARDIOVASCULAR: No angina or palpitations. RESPIRATORY: As mentioned earlier. GI: As mentioned earlier. : No dysuria. NERVOUS SYSTEM: As mentioned earlier. CURRENT MEDICATIONS: Reviewed and include Tylenol, Xanax, Eliquis, Norvasc, vitamin C, vitamin D3, daptomycin, Haldol. Doses are reviewed. PHYSICAL EXAM: GENERAL: Patient is alert and oriented times two. VITAL SIGNS: Pulse 88, blood pressure 134/74, respirations 16, temperature 98.2, pulse ox 98% on 8 liters. HEENT: Conjunctivae normal. Oral mucosa moist. NECK: No jugular venous distention. No carotid bruits. No lymph node enlargement. RESPIRATORY: Breath sounds diminished at the bases. No rhonchi, no crackles. HEART: S1 and S2, muffled. ABDOMEN: Soft, no tenderness. EXTREMITIES: No edema, no swelling. NERVOUS: Diffusely weak. LABS: WBC 7.7, platelets are 143. Sodium 130, glucose 139, calcium 7.9. ASSESSMENT: 1. Acute COVID-19 pneumonia with acute hypoxic respiratory failure with acute respiratory distress syndrome. 2. Enterococcus faecalis septicemia. 3. Urinary tract infection with enterococcus as well as sepsis. 4. Possible coagulase-negative Staph sepsis secondary to PICC line infection possible sepsis secondary to infection. 5. Severe acute hypoxic respiratory failure. 6. Severe weakness with possible acute critical care polyneuropathy and generalized weakness. 7. Acute gastrointestinal bleed, currently hemoglobin stable. 8. Uncontrolled hypertension, hypertensive urgency. 9. Increased LFT, possibly secondary to COVID hepatitis. 10.Fibromyalgia. 11.DVT and GI prophylaxis. 12.Hyponatremia. 13.Thrombocytopenia. 14.Hypertension. 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 16.Remote history of nicotine dependence. 17.FULL CODE. RECOMMENDATION AND DISCUSSION: Recommend to continue current management and symptomatic treatment. Continue bronchodilators. Continue empiric antibiotics. PT OT evaluation, possible ECF rehab. Repeat labs and Dr. Aleman will follow. MMODL / IJN: [id number] /
--- NOTE | 2020-04-20 15:53 | P.PN ---
Subjective Progress Note Date: 04/20/20 Principal diagnosis: Acute hypoxic respiratory failure Covid19 pneumonia Acute respiratory and metabolic acidosis Acute hepatitis/elevated liver enzymes Acute diastolic heart failure and fluid overload Chronic anemia Fibromyalgia Hypertension hypertensive cardiovascular disease 04/20/2020, patient continued do well, oxygen is down to 6 L now from 7 L, patient appetite and mental status continued to improve will continue current plan of care 04/19/2020, patient seen eval examined during the rounds labs reviewed medications reviewed, patient is now down to 8 L from 10 L, saturation is mid 90s, respiratory status stable, we'll continue titrated oxygen down as tolerated slowly 2-3 L in 24 hours as tolerated 04/18/2020, patient seen eval examined during the rounds labs reviewed medications reviewed respiratory status remains stable denies any chest pain, patient remains on high flow oxygen, saturation well, discussed was titrated down as tolerated, labs reviewed medications reviewed, currently patient is on 10 L 45% airvo 04/17/2020, patient seen eval examined more awake and alert breathing comfortably no obvious distress is present, oxygen being titrated down off of high flow and airvo, on 15 L high flow saturating low to mid 80s and dropped down some back on aerosolized oxygen, mental status more clear tolerating by mouth well extremely weak continued PT OT and supportive care 04/16/2020, patient seen eval examined during the rounds respiratory status continued to improve so as the mental status however is still on high flow air VO oxygen 04/15/2020, patient seen eval examined during the rounds labs reviewed medications reviewed care plan discussed, patient remains on high flow oxygen 15 L 70% oxygen saturation remains marginal low 90s to high 80s previously today noted to be 94%, patient has been tolerating by mouth well, has been moved down from the ICU labs from today reviewed slight hyponatremia noted otherwise fairly within normal limit patient remains on Lovenox along with daptomycin fluconazole, IV steroids, patient has finished usual therapy for covid19 pneumonia 04/14/2020, patient remains on 50% oxygen 70L, awake slightly confused, shortness of breath is not obvious hemodynamic status stable tolerating by mouth well patient will be moved out of the ICU when bed available 04/13/2020, patient seen eval examined during the rounds labs reviewed medications reviewed care plan discussed with the staff, respiratory status remains stable continued to be on the 75% oxygen 15 L high flow, remains afebrile remains on antibiotics patient will be transferred to [facility] with remote telemetry date on today 04/12/2020, patient seen eval examined during rounds labs reviewed medications reviewed, respiratory status remains unchanged, patient remains on 15 L 75% oxygen unable to titrate oxygen down, appetite continued to improve, patient able to swallow well, labs reviewed medications reviewed care plan discussed with the staff at length, patient can be moved out to [facility] with remote telemetry 04/11/2020, patient seen eval examined during evaluation patient noted to be more awake and alert compared to prior exam however patient remains on 15 L 75% aerosolized oxygen high flow, no obvious distress present patient remains afebrile, remains on broad-spectrum antibiotics and usual care for coronary 19 pneumonia April 10 2020 patient seen eval examined sitting upright on the bed breathing comfortably, patient remains on high flow oxygen 15 L 75%, swallow evaluation completed patient able to swallow well will start by mouth blood pressure problem remains an issue we will increase the dose of Norvasc continue oral hydralazine monitor blood pressure closely, absolute reviewed x-ray reviewed continued to show bilateral interstitial infiltrate predominantly in mid part and basis 04/09/2020, patient seen eval examined in the ICU, respiratory status remains marginal but stable, patient is on 80% aerosolized oxygen 15 L, saturation is 90%, more awake and alert, swallowing functions will be reassessed later on today by speech therapist, mental status changes agitated behavior and confusion remains an issue which causes blood pressure to go up as well, 04/08/2020, patient seen eval examined during the rounds labs reviewed medications reviewed care plan discussed, patient remains on BiPAP 15/5 with 70% oxygen, oxygen saturation 94% more awake alert, will try high flow aerosolized oxygen, blood culture positive for gram positive cocci in chain, patient is on IV vancomycin he is following 04/07/2020, patient seen eval examined during the rounds labs reviewed medications reviewed, mental status remains stable slightly improved however, patient intermittently get anxious and agitated, low-grade temperature 90 is present hemodynamically stable though, saturation is 90% to 93% on partial nonrebreather mask, chest x-ray remains stable, white cell count remains elevated, 04/06/2020, patient seen eval examined during the rounds labs reviewed medications reviewed, patient remains off of ventilator, mental status slightly better today compared to last 24-48 hours less agitated awake oriented 1 now, remains on partial nonrebreather mask, saturation is 94%, LAD pressure slightly running on the higher side remains on IV hydralazine, oxygen saturation is 94% to 96%, 04/05/2020, patient seen eval reexamined successfully weaned and extubated yesterday has been on supplemental oxygen 2-4 L, in the last 8-12 hours however decompensation in oxygenation status as well as patient even though awake but remains agitated appears to have a agitated delirium, does require Dilaudid at a regular interval, remains afebrile, oxygen saturation is 99% on 10 L nonrebreather mask, patient cannot take by mouth medicines are listed IV, will try morphine as needed DC Dilaudid, 04/04/2020, patient seen eval examined during the rounds labs reviewed medications reviewed care plan discussed, patient is awake now remains off of propofol since yesterday, does make intermittent eye contact, remains slightly withdrawn however, respiratory status stable, remains on assist control mode rate of 24, tidal volume is 450, +5 of PEEP, 40% oxygen, peak airway pressure stable, chest x-ray shows bilateral diffuse interstitial infiltrate stable ET tube and NG tube in PICC line, white cell count is 13,400, hemoglobin and hematocrit stable 9.4 and 31, arterial blood gases reviewed pH is 7.4 to pCO2 32 pO2 64, BUN/creatinine is 32 and 0.5, patient is reviewed Lovenox remains 2040 mg subcu twice a day on IV furosemide, Solu-Medrol is 60 mg IV every 6 we'll decrease it to every 12 04/03/2020, patient seen eval examined during rounds labs reviewed medications reviewed, care plan discussed, overall hemodynamically he remains stable blood pressure spiked up on hydralazine when necessary, seems to be helping, patient sedated with propofol drip 50 mics, attempts for weaning of protocol has been unsuccessful as patient becomes agitated, attempted Precedex drip has been unsuccessful as well, current vent settings include assist control rate of 24 breathing 24, FiO2 is 40%, PEEP is 5, tidal volume is 450, chest x-ray stable ET tube with bilateral multifocal infiltrate with consolidation consistent with cold with 19 pneumonia not essentially much change from the prior x-ray, ET tube and NG tube was stable, patient is getting tube feed bolus feeding, labs including ABG chemistry reviewed 04/02/2020, patient seen eval examined during the rounds labs reviewed medications reviewed care plan discussed, patient remains sedated with propofol on ventilator for full ventilator support, currently patient is on assist control mode rate Tuesday for breathing 24, tidal volume is 450, 5 of PEEP, 40% oxygen, propofol is 50 mics, chest x-ray from today reviewed continue show patchy bilateral infiltrate without any significant interval change, arterial blood gases revealed pH of 7.43 pCO2 32, C-reactive protein is down to 21, BUN/creatinine is 34/.49, white cell count and hemoglobin remained stable, medications reviewed, she remains on broad-spectrum antibiotic with cephapirin, Lovenox, gentle diuresis with Lasix, blood pressure control with IV hydralazine, patient remains on high-dose IV steroids, discussed with the staff at length, will stop the propofol drip and once patient is awake put on CPAP 5 pressure support of 5 gas after half an hour also check weaning parameters 04/01/2020, patient seen eval examined labs reviewed medications reviewed care plan discussed with the staff at length patient had a sedation holiday today she is arousable and awake follows simple commands with blood pressure went up becomes agitated anxious requiring a reinitiation of propofol drip, ventilator setting remains unchanged, patient is on rate of 24 tidal volume is 450, PEEP is 5, oxygen is 40%, chest x-ray from today reviewed remains overall stable with stable lines and tubes 03/31/2020, patient seen eval examined during the rounds labs reviewed medications reviewed care plan discussed, patient remains on full ventilator support, propofol was changed to Precedex but however patient becomes agitated so back on propofol when setting remains unchanged have been on assist control rate of 24, PEEP is 5, FiO2 is 40%, tidal volume of 450, care plan discussed with the staff at length critical care time 35 minutes 03/30/2020, patient seen eval examined during the rounds labs reviewed medications reviewed, remains sedated with propofol, current vent setting include his control rate of 24 breathing 24 tidal volume is 450, deep is 5 now, FiO2 is 40%, tolerating tube feed very well, chest x-ray reviewed slightly better but stable bilateral infiltrate consistent with atypical pneumonia, patient continued IVs very well with 20 mg Lasix daily, white cell count remained stable, with stable hemoglobin and however decreasing platelet count noted, dear blood gases revealed pH of 7.4 to pCO2 34 pO2 of 62, BUN/creatinine is 36 and 0.62, left he continue show downward trend, inflammatory markers reviewed still elevated but showing a downward trend 03/29/2020, patient seen eval examined during the rounds labs reviewed medications reviewed, care plan discussed with the nursing staff at length, patient has been on assist control rate of the 24 PEEP of 8 400 tidal volume 50% oxygen, ventilator has been adjusted with reduction in PEEP and oxygen, patient's saturation remained stable 91-92%, next step he is to stop propofol and reassess the mental status and if patient remains stable oxygen randolph and h emodynamics can do a CPAP pressure support trial in the meantime we'll continue IV steroids, antibiotics, CBC and ABG reviewed, today's chest x-ray showed bilateral interstitial infiltrate, predominantly at the bases, patient has been on Lasix 20 mg daily diuresing very well, critical care time 35 minutes 03/28/2020, patient seen eval examined during the rounds labs reviewed medications reviewed care plan discussed oxygen has been down to 40% now. The patient is PEEP of 8, otherwise ventilator setting remains stable, patient is scheduled for PICC line later on today, remains on propofol, remains on broad- spectrum antibiotics, labs from today has been reviewed hemoglobin is stable 7.9, d-dimer is 3.24, arterial blood gases stable pH is 7.41 pCO2 35 pO2 96, BUN/creatinine is 51 and 1.05, ferritin level remains more than 26,000, AST ALT continued decline however today is 367 and 558, C-reactive protein checked 69.5 her chest x-ray earlier than today remains there however appears to have slightly progressed 03/27/2020, patient seen eval examined during the rounds labs reviewed medica tions reviewed care plan discussed, propofol has been discontinued patient because very restless and anxious, we'll restart propofol, patient has been on full ventilator support assist control 24 tidal volume of 450, PEEP is 10, oxygen is 70%, arterial blood gases reviewed when lower the FiO2 to 60% now plan to bring down the FiO2 to 50% and PEEP of 8 next 24 hours, sputum and blood cultures reviewed no growth so far, chest x-ray performed today reviewed significant improvement in infiltrates seen bilaterally, patient has a poor urine output throughout the night, 20 mg of Lasix was given put out 600 mL of urine patient continued to be on gentle hydration, remain on cefapime and Vanco, Lovenox Solu-Medrol multivitamin and vitamin C zinc and Lovenox, white cell count is stable 10,500 hemoglobin and hematocrit 7.2 and 24, general surgery has been following patient is considered to get EGD and colonoscopy once stable, arterial blood gas revealed pH of 7.39 pCO2 of 39 pO2 of 124, bicarb 25, liver enzymes continue to come down AST and ALT now is 944/809, hepatitis panel normal and nonreactive 03/26/2020, patient seen eval examined in the ICU care plan discussed with the staff, FiO2 has been down to 60%, patient remains on assist control tidal volume of 450, PEEP is 10, respiratory rate is 24 breathing with the respirator pH has been improved significantly, patient is making adequate urine chest x-ray compared with yesterday's x-ray some improvement have been noted, white cell c ount is 11,000, hemoglobin 7.9 which is stable, arterial blood gas improved to 7.39, pCO2 of 40, pO2 112, BUN/creatinine is 33/0.96, lactic acid was 5.9 down to 1.3 now, ferritin level noted to be 12,800, AST and ALT are 4014 100 with LDH over 21,500, today LFTs significantly improved AST is down to 2795 and ALT is 1222, pro calcitonin is 0.84, suspect some component of heart failure as well as pneumonia, will get an echocardiogram as well as start patient on broad-spectrum antibiotics with cefepime and Vanco Patient seen and evaluated examined in the emergency department, patient came into the ER from the office of Dr. Aleman due to progressive shortness of breath, patient has acute on chronic hypoxic respiratory failure on 4 L oxygen, also has issues associated with pneumonia presumed to be cold with 19, however, testing was negative, patient used to smoke in the remote past quit about 20-30 years ago due to severity or shortness of breath and hypoxia with saturation of 76% on 100% oxygen and respiratory distress patient was intubated due to poor tolerance on BiPAP, patient Covid testing came back positive, chest x-ray showing diffuse infiltrate she also has been noted to have elevated liver enzymes due to elevated liver enzymes will not start IV REMdesivir, Initial ABG pH is 7.18, pCO2 is 63 pO2 was only 33 Objective - Vital Signs Vital signs: Vital Signs Temp 98.2 F 04/20/20 10:00 Pulse 88 04/20/20 10:00 Resp 16 04/20/20 10:00 BP 134/75 04/20/20 10:00 Pulse Ox 93 L 04/20/20 10:00 Intake & Output 04/19/20 04/20/20 04/20/20 18:59 06:59 18:59 Intake Total 400 250 Output Total 2200 600 Balance -1800 -350 Weight 72 kg Intake: Intake, IV Titration 400 Amount Sodium Chloride 0.9% 1, 400 000 ml @ 50 mls/hr IV . Q20H [facility] Rx#:[id number] Oral 250 Output: Urine 2200 600 Uretheral (Quick) 600 Other: Voiding Method Indwelling Catheter Indwelling Catheter Indwelling Catheter - Exam Patient on 80% oxygen 15 L aerosolized saturation is 90% to 92% - Constitutional General appearance: average body habitus, mild distress, restless intermittently agitated - EENT Ears: bilateral: normal - Neck Carotids: bilateral: upstroke normal Thyroid: bilateral: normal size - Respiratory Respiratory: bilateral: diminished - Cardiovascular Rhythm: regular Heart sounds: normal: S1, S2 - Gastrointestinal General gastrointestinal: normal bowel sounds Patient is relatively more awake and alert compared to yesterday exam - Labs CBC & Chem 7: 04/20/20 03:45 04/20/20 03:45 Labs: Abnormal Lab Results - Last 24 Hours (Table) 04/19/20 04/19/20 04/20/20 Range/Units 16:48 19:59 03:45 RDW 17.4 H (11.5-15.5) % Plt Count 143 L (150-450) k/uL Lymphocytes # 0.4 L (1.0-4.8) k/uL Sodium (135-145) mmol/L Creatinine (0.6-1.5) mg/dL BUN/Creatinine Ratio (12.00-20.00) Ratio Glucose (70-110) mg/dL POC Glucose (mg/dL) 146 H 282 H (75-99) mg/dL Calcium (8.7-10.3) mg/dL 04/20/20 04/20/20 04/20/20 Range/Units 03:45 06:54 11:07 RDW (11.5-15.5) % Plt Count (150-450) k/uL Lymphocytes # (1.0-4.8) k/uL Sodium 130 L (135-145) mmol/L Creatinine 0.5 L (0.6-1.5) mg/dL BUN/Creatinine Ratio 28.00 H (12.00-20.00) Ratio Glucose 139 H (70-110) mg/dL POC Glucose (mg/dL) 153 H 151 H (75-99) mg/dL Calcium 7.9 L (8.7-10.3) mg/dL Assessment and Plan Assessment: Hypertensive urgency, antihypertensive being adjusted Gram-positive bacteremia found to be group D enterococcus patient is on vancomycin Agitated delirium along with metabolic encephalopathy likely multifactorial including Covid 19 pneumonia, is being in ICU, for intubation long period time sepsis, slowly improving Acute hypoxic respiratory failure Covid19 pneumonia Acute pneumonia bacterial bilateral healthcare associated patient is being monitored off of antibiotics now Thrombocytopenia stable Acute respiratory and metabolic acidosis Acute hepatitis/elevated liver enzymes Acute diastolic heart failure Chronic anemia Fibromyalgia Hypertension hypertensive cardiovascular disease Plan: Continue supportive care, Continue daptomycin Monitor intake and output closely keep on even a negative side Patient remains on partial nonrebreather mask was slowly titrate oxygen down as tolerated Trend liver enzymes Patient is not a candidate for IV REMdesivir due to markedly elevated liver enzymes IV steroids, Further recommendations pending plan of care as per clinical response of patient Continue anticoagulation with Lovenox Time with Patient: Greater than 30
[2020-04-20 17:06] LABS: Glucose,Whole Blood 222 mg/dL (75-99)
[2020-04-20 21:14] LABS: Glucose,Whole Blood 257 mg/dL (75-99)
--- NOTE | 2020-04-20 21:40 | PN ---
PROGRESS NOTE DATE OF SERVICE: 04/20/2020 REASON FOR FOLLOWUP: Enterococcus faecalis bacteremia and VRE UTI. INTERVAL HISTORY: Patient is currently afebrile. Patient is breathing comfortably. The patient denies having any chest pain. No shortness of breath or cough. No abdominal pain. No diarrhea. PHYSICAL EXAMINATION: Blood pressure is 120/74 with a pulse of 86. Temperature 98.1. She is 95% on 6 L nasal cannula. General description is an elderly female up in the bed in no distress. Respiratory system: Unlabored breathing, decreased breath sounds in the bases with no wheeze. Heart S1, S2. Regular rate and rhythm. ABDOMEN: Soft, no tenderness. LABS: Hemoglobin is 11.8, white count 7.7, BUN of 14, creatinine 0.5. DIAGNOSTIC IMPRESSION AND PLAN: Patient with Enterococcus faecalis urinary tract infection as well as bacteremia and VRE urinary tract infection. The patient has received adequate antibiotic therapy. Will be planning for no antibiotic on discharge. Continue supportive care. MMODL / IJN: [id number] /
[2020-04-20] MEDS: AMITRIPTYLINE HCL 50 MG TAB PO SCH (21:53)
[2020-04-20] MEDS: DAPTOmycin 500 MG in SODIUM CHLORIDE 0.9% 50 ML IVPB SCH (21:56)
[2020-04-20] MEDS: SODIUM CHLORIDE 0.9% 1,000 ML IV SCH (22:04)
[2020-04-20] MEDS: FLUCONAZOLE 100 MG TAB PO SCH (22:26)
[2020-04-21] MEDS: ALPRAZolam 0.25 MG TAB PO PRN (04:10)
[2020-04-21] MEDS: HYDROmorphone 1 MG/ML 1 ML SYRINGE IVP PRN ×2 (05:47→22:49)
[2020-04-21 06:00] LABS: Anisocytosis Slight; Basophils % (A) 0 %; Eosinophils % (A) 0 %; HCT 33.7 % (34.0-46.0); Hypochromasia Moderate; Lymphocytes # (A) 0.4 k/uL (1.0-4.8); Lymphocytes % (A) 4 %; MCHC 32.6 g/dL (31.0-37.0); MCV 85.9 fL (80.0-100.0); Monocytes # (A) 0.2 k/uL (0-1.0); Monocytes % (A) 2 %; Neutrophils # (A) 7.7 k/uL (1.3-7.7); Neutrophils % (A) 93 %; Platelet Count 179 k/uL (150-450); Poikilocytosis Slight; RBC 3.92 m/uL (3.80-5.40); RDW 17.4 % (11.5-15.5); WBC 8.3 k/uL (3.8-10.6)
[2020-04-21 07:41] LABS: Glucose,Whole Blood 185 mg/dL (75-99)
--- NOTE | 2020-04-21 07:49 | P.PN ---
Subjective Principal diagnosis: Respiratory failure related Covid pneumonia.. Otherwise appreciate multiple consultants input. The patient is now on a general medical floor lucid and recovering appropriately. Objective - Vital Signs Vital signs: Vital Signs Temp 97.5 F L 04/21/20 04:51 Pulse 73 04/21/20 04:51 Resp 20 04/21/20 04:51 BP 119/72 04/21/20 04:51 Pulse Ox 94 L 04/21/20 04:51 Intake & Output 04/20/20 04/21/20 04/21/20 18:59 06:59 18:59 Intake Total 940 Output Total 500 650 Balance -500 290 Weight 72 kg Intake: IV 600 Sodium Chloride 0.9% 1, 600 000 ml @ 50 mls/hr IV . Q20H [facility] Rx#:[id number] Intake, IV Titration 50 Amount DAPTOmycin 500 mg In 50 Sodium Chloride 0.9% 50 ml @ 100 mls/hr IVPB Q24H [facility] Rx#:[id number] Oral 290 Output: Urine 500 650 Uretheral (Quick) 650 Other: Voiding Method Indwelling Catheter Indwelling Catheter - Constitutional General appearance: Present: average body habitus - EENT Eyes: Absent: abnormal pupil - Neck Neck: Absent: lymphadenopathy - Respiratory Respiratory: bilateral: diminished - Cardiovascular Rhythm: regular Heart sounds: normal: S1, S2 Abnormal Heart Sounds: Absent: S3 Gallop - Gastrointestinal General gastrointestinal: Present: soft. Absent: tenderness - Integumentary Integumentary: Present: normal. Absent: rash - Labs CBC & Chem 7: 04/21/20 05:19 04/20/20 03:45 Labs: Abnormal Lab Results - Last 24 Hours (Table) 04/20/20 04/20/20 04/20/20 Range/Units 03:45 11:07 16:57 Hgb (11.4-16.0) gm/dL Hct (34.0-46.0) % RDW (11.5-15.5) % Lymphocytes # (1.0-4.8) k/uL Sodium 130 L (135-145) mmol/L Creatinine 0.5 L (0.6-1.5) mg/dL BUN/Creatinine Ratio 28.00 H (12.00-20.00) Ratio Glucose 139 H (70-110) mg/dL POC Glucose (mg/dL) 151 H 222 H (75-99) mg/dL Calcium 7.9 L (8.7-10.3) mg/dL 04/20/20 04/21/20 04/21/20 Range/Units 21:09 05:19 07:40 Hgb 11.0 L (11.4-16.0) gm/dL Hct 33.7 L (34.0-46.0) % RDW 17.4 H (11.5-15.5) % Lymphocytes # 0.4 L (1.0-4.8) k/uL Sodium (135-145) mmol/L Creatinine (0.6-1.5) mg/dL BUN/Creatinine Ratio (12.00-20.00) Ratio Glucose (70-110) mg/dL POC Glucose (mg/dL) 257 H 185 H (75-99) mg/dL Calcium (8.7-10.3) mg/dL Assessment and Plan (1) Acute respiratory distress syndrome Current Visit: Yes Status: Acute Code(s): J80 - ACUTE RESPIRATORY DISTRESS SYNDROME SNOMED Code(s): 87611921 (2) Anemia Current Visit: Yes Status: Acute Code(s): D64.9 - ANEMIA, UNSPECIFIED SNOMED Code(s): 738060358 (3) COVID-19 Current Visit: Yes Status: Acute Code(s): U07.1 - COVID-19 SNOMED Code(s): 978829128 (4) Pneumonia Current Visit: Yes Status: Acute Code(s): J18.9 - PNEUMONIA, UNSPECIFIED ORGANISM SNOMED Code(s): 325261931 (5) Fibromyalgia Current Visit: No Status: Acute Code(s): M79.7 - FIBROMYALGIA SNOMED Code(s): 108270274 Plan: Appropriate supportive care. Prognosis still Guarded due to her Covid 19. We'll continue to follow with consultants. Check CBC and CMP in a.m. Increase ambulation as possible..
[2020-04-21] MEDS: ENOXAPARIN 40 MG/0.4 ML SYRINGE SQ SCH ×2 (08:23→22:36)
[2020-04-21] MEDS: INSULIN ASPART (NovoLOG) 100 UNIT/ML VIAL SQ SCH ×4 (08:25→22:36)
[2020-04-21] MEDS: amLODIPine 5 MG TAB PO SCH ×2 (08:25→22:36)
[2020-04-21] MEDS: SERTRALINE 100 MG TAB PO SCH (08:25)
[2020-04-21] MEDS: hydrALAZINE HCL 25 MG TAB PO SCH ×3 (08:26→22:37)
[2020-04-21] MEDS: ZINC SULFATE 220 MG CAP PO SCH (08:26)
[2020-04-21] MEDS: PANTOPRAZOLE 40 MG TABLET PO SCH ×2 (08:26→22:37)
[2020-04-21] MEDS: ASCORBIC ACID 500 MG TAB PO SCH ×2 (08:26→22:36)
[2020-04-21] MEDS: CHOLECALCIFEROL 400 UNIT TAB PO SCH (08:26)
[2020-04-21] MEDS: methylPREDNISolone SOD SUCCI 40 MG/ML 1 ML VIAL IV SCH ×2 (08:27→22:36)
[2020-04-21 10:06] LABS: African American GFR (CKD) 113.7 (60.0-200.0); Anion Gap 7.7 mmol/L (4.00-12.00); Calcium 7.7 mg/dL (8.7-10.3); Carbon Dioxide 21.3 mmol/L (21.6-31.8); Non-African American GFR(CKD) 98.1 (60.0-200.0); Potassium 4.1 mmol/L (3.5-5.5)
[2020-04-21 11:41] LABS: Glucose,Whole Blood 318 mg/dL (75-99)
[2020-04-21] MEDS: SODIUM CHLORIDE 0.9% 1,000 ML IV SCH (13:11)
--- NOTE | 2020-04-21 15:24 | P.PN ---
Subjective Progress Note Date: 04/21/20 Principal diagnosis: Acute hypoxic respiratory failure Covid19 pneumonia Acute respiratory and metabolic acidosis Acute hepatitis/elevated liver enzymes Acute diastolic heart failure and fluid overload Chronic anemia Fibromyalgia Hypertension hypertensive cardiovascular disease 04/21/2020, patient seen eval examined, slightly more short of breath appetite poor did not consume more than one fourth of tray, remains very weak, oxygen requirement increased to 8 L, somnolent but arousable, will decrease his steroid to once a day 04/20/2020, patient continued do well, oxygen is down to 6 L now from 7 L, patient appetite and mental status continued to improve will continue current plan of care 04/19/2020, patient seen eval examined during the rounds labs reviewed med ications reviewed, patient is now down to 8 L from 10 L, saturation is mid 90s, respiratory status stable, we'll continue titrated oxygen down as tolerated slowly 2-3 L in 24 hours as tolerated 04/18/2020, patient seen eval examined during the rounds labs reviewed medications reviewed respiratory status remains stable denies any chest pain, patient remains on high flow oxygen, saturation well, discussed was titrated down as tolerated, labs reviewed medications reviewed, currently patient is on 10 L 45% airvo 04/17/2020, patient seen eval examined more awake and alert breathing comfortably no obvious distress is present, oxygen being titrated down off of high flow and airvo, on 15 L high flow saturating low to mid 80s and dropped down some back on aerosolized oxygen, mental status more clear tolerating by mouth well extremely weak continued PT OT and supportive care 04/16/2020, patient seen eval examined during the rounds respiratory status continued to improve so as the mental status however is still on high flow air VO oxygen 04/15/2020, patient seen eval examined during the rounds labs reviewed medications reviewed care plan discussed, patient remains on high flow oxygen 15 L 70% oxygen saturation remains marginal low 90s to high 80s previously today noted to be 94%, patient has been tolerating by mouth well, has been moved down from the ICU labs from today reviewed slight hyponatremia noted otherwise fairly within normal limit patient remains on Lovenox along with daptomycin fluconazole, IV steroids, patient has finished usual therapy for covid19 pneumonia 04/14/2020, patient remains on 50% oxygen 70L, awake slightly confused, shortness of breath is not obvious hemodynamic status stable tolerating by mouth well patient will be moved out of the ICU when bed available 04/13/2020, patient seen eval examined during the rounds labs reviewed medications reviewed care plan discussed with the staff, respiratory status remains stable continued to be on the 75% oxygen 15 L high flow, remains afebrile remains on antibiotics patient will be [facility] with remote telemetry date on today 04/12/2020, patient seen eval examined during rounds labs reviewed medications reviewed, respiratory status remains unchanged, patient remains on 15 L 75% oxygen unable to titrate oxygen down, appetite continued to improve, patient able to swallow well, labs reviewed medications reviewed care plan discussed with the staff at length, patient can be moved out to [facility] with remote telemetry 04/11/2020, patient seen eval examined during evaluation patient noted to be more awake and alert compared to prior exam however patient remains on 15 L 75% aerosolized oxygen high flow, no obvious distress present patient remains afebrile, remains on broad-spectrum antibiotics and usual care for coronary 19 pneumonia April 10 2020 patient seen eval examined sitting upright on the bed breathing comfortably, patient remains on high flow oxygen 15 L 75%, swallow evaluation completed patient able to swallow well will start by mouth blood pressure problem remains an issue we will increase the dose of Norvasc continue oral hydralazine monitor blood pressure closely, absolute reviewed x-ray reviewed continued to show bilateral interstitial infiltrate predominantly in mid part and basis 04/09/2020, patient seen eval examined in the ICU, respiratory status remains marginal but stable, patient is on 80% aerosolized oxygen 15 L, saturation is 90%, more awake and alert, swallowing functions will be reassessed later on today by speech therapist, mental status changes agitated behavior and confusion remains an issue which causes blood pressure to go up as well, 04/08/2020, patient seen eval examined during the rounds labs reviewed medications reviewed care plan discussed, patient remains on BiPAP 15/5 with 70% oxygen, oxygen saturation 94% more awake alert, will try high flow aerosolized oxygen, blood culture positive for gram positive cocci in chain, patient is on IV vancomycin he is following 04/07/2020, patient seen eval examined during the rounds labs reviewed medications reviewed, mental status remains stable slightly improved however, patient intermittently get anxious and agitated, low-grade temperature 90 is present hemodynamically stable though, saturation is 90% to 93% on partial nonrebreather mask, chest x-ray remains stable, white cell count remains elevated, 04/06/2020, patient seen eval examined during the rounds labs reviewed me dications reviewed, patient remains off of ventilator, mental status slightly better today compared to last 24-48 hours less agitated awake oriented 1 now, remains on partial nonrebreather mask, saturation is 94%, LAD pressure slightly running on the higher side remains on IV hydralazine, oxygen saturation is 94% to 96%, 04/05/2020, patient seen eval reexamined successfully weaned and extubated yesterday has been on supplemental oxygen 2-4 L, in the last 8-12 hours however decompensation in oxygenation status as well as patient even though awake but remains agitated appears to have a agitated delirium, does require Dilaudid at a regular interval, remains afebrile, oxygen saturation is 99% on 10 L nonrebreather mask, patient cannot take by mouth medicines are listed IV, will try morphine as needed DC Dilaudid, 04/04/2020, patient seen eval examined during the rounds labs reviewed medic ations reviewed care plan discussed, patient is awake now remains off of propofol since yesterday, does make intermittent eye contact, remains slightly withdrawn however, respiratory status stable, remains on assist control mode rate of 24, tidal volume is 450, +5 of PEEP, 40% oxygen, peak airway pressure stable, chest x-ray shows bilateral diffuse interstitial infiltrate stable ET tube and NG tube in PICC line, white cell count is 13,400, hemoglobin and hematocrit stable 9.4 and 31, arterial blood gases reviewed pH is 7.4 to pCO2 32 pO2 64, BUN/creatinine is 32 and 0.5, patient is reviewed Lovenox remains 2040 mg subcu twice a day on IV furosemide, Solu-Medrol is 60 mg IV every 6 we'll decrease it to every 04/03/2020, patient seen eval examined during rounds labs reviewed medications reviewed, care plan discussed, overall hemodynamically he remains stable blood pressure spiked up on hydralazine when necessary, seems to be helping, patient sedated with propofol drip 50 mics, attempts for weaning of protocol has been unsuccessful as patient becomes agitated, attempted Precedex drip has been unsuccessful as well, current vent settings include assist control rate of 24 breathing 24, FiO2 is 40%, PEEP is 5, tidal volume is 450, chest x-ray stable ET tube with bilateral multifocal infiltrate with consolidation consistent with cold with 19 pneumonia not essentially much change from the prior x-ray, ET tube and NG tube was stable, patient is getting tube feed bolus feeding, labs including ABG chemistry reviewed 04/02/2020, patient seen eval examined during the rounds labs reviewed medications reviewed care plan discussed, patient remains sedated with propofol on ventilator for full ventilator support, currently patient is on assist control mode rate Tuesday for breathing 24, tidal volume is 450, 5 of PEEP, 40% oxygen, propofol is 50 mics, chest x-ray from today reviewed continue show patchy bilateral infiltrate without any significant interval change, arterial blood gases revealed pH of 7.43 pCO2 32, C-reactive protein is down to 21, BUN/creatinine is 34/.49, white cell count and hemoglobin remained stable, medications reviewed, she remains on broad-spectrum antibiotic with cephapirin, Lovenox, gentle diuresis with Lasix, blood pressure control with IV hydralazine, patient remains on high-dose IV steroids, discussed with the staff at length, will stop the propofol drip and once patient is awake put on CPAP 5 pressure support of 5 gas after half an hour also check weaning parameters 04/01/2020, patient seen eval examined labs reviewed medications reviewed care plan discussed with the staff at length patient had a sedation holiday today she is arousable and awake follows simple commands with blood pressure went up becomes agitated anxious requiring a reinitiation of propofol drip, ventilator setting remains unchanged, patient is on rate of 24 tidal volume is 450, PEEP is 5, oxygen is 40%, chest x-ray from today reviewed remains overall stable with st able lines and tubes 03/31/2020, patient seen eval examined during the rounds labs reviewed medicat ions reviewed care plan discussed, patient remains on full ventilator support, propofol was changed to Precedex but however patient becomes agitated so back on propofol when setting remains unchanged have been on assist control rate of 24, PEEP is 5, FiO2 is 40%, tidal volume of 450, care plan discussed with the staff at length critical care time 35 minutes 03/30/2020, patient seen eval examined during the rounds labs reviewed medications reviewed, remains sedated with propofol, current vent setting include his control rate of 24 breathing 24 tidal volume is 450, deep is 5 now, FiO2 is 40%, tolerating tube feed very well, chest x-ray reviewed slightly better but stable bilateral infiltrate consistent with atypical pneumonia, patient continued IVs very well with 20 mg Lasix daily, white cell count remained stable, with stable hemoglobin and however decreasing platelet count noted, dear blood gases revealed pH of 7.4 to pCO2 34 pO2 of 62, BUN/creatinine is 36 and 0.62, left he continue show downward trend, inflammatory markers reviewed still elevated but showing a downward trend 03/29/2020, patient seen eval examined during the rounds labs reviewed medications reviewed, care plan discussed with the nursing staff at length, patient has been on assist control rate of the 24 PEEP of 8 400 tidal volume 50% oxygen, ventilator has been adjusted with reduction in PEEP and oxygen, deisy ent's saturation remained stable 91-92%, next step he is to stop propofol and reassess the mental status and if patient remains stable oxygen randolph and hemodynamics can do a CPAP pressure support trial in the meantime we'll continue IV steroids, antibiotics, CBC and ABG reviewed, today's chest x-ray showed bilateral interstitial infiltrate, predominantly at the bases, patient has been on Lasix 20 mg daily diuresing very well, critical care time 35 minutes 03/28/2020, patient seen eval examined during the rounds labs reviewed medications reviewed care plan discussed oxygen has been down to 40% now. The patient is PEEP of 8, otherwise ventilator setting remains stable, patient is scheduled for PICC line later on today, remains on propofol, remains on broad- spectrum antibiotics, labs from today has been reviewed hemoglobin is stable 7.9, d-dimer is 3.24, arterial blood gases stable pH is 7.41 pCO2 35 pO2 96, BUN/creatinine is 51 and 1.05, ferritin level remains more than 26,000, AST ALT continued decline however today is 367 and 558, C-reactive protein checked 69.5 her chest x-ray earlier than today remains there however appears to have slightly progressed 03/27/2020, patient seen eval examined during the rounds labs reviewed medications reviewed care plan discussed, propofol has been discontinued patient because very restless and anxious, we'll restart propofol, patient has been on full ventilator support assist control 24 tidal volume of 450, PEEP is 10, oxygen is 70%, arterial blood gases reviewed when lower the FiO2 to 60% now plan to bring down the FiO2 to 50% and PEEP of 8 next 24 hours, sputum and blood cultures reviewed no growth so far, chest x-ray performed today reviewed significant improvement in infiltrates seen bilaterally, patient has a poor urine output throughout the night, 20 mg of Lasix was given put out 600 mL of urine patient continued to be on gentle hydration, remain on cefapime and Vanco, Lovenox Solu-Medrol multivitamin and vitamin C zinc and Lovenox, white cell count is stable 10,500 hemoglobin and hematocrit 7.2 and 24, general surgery has been following patient is considered to get EGD and colonoscopy once stable, arterial blood gas revealed pH of 7.39 pCO2 of 39 pO2 of 124, bicarb 25, liver enzymes continue to come down AST and ALT now is 944/809, hepatitis panel normal and nonreactive 03/26/2020, patient seen eval examined in the ICU care plan discussed with the staff, FiO2 has been down to 60%, patient remains on assist control tidal volume of 450, PEEP is 10, respiratory rate is 24 breathing with the respirator pH has been improved significantly, patient is making adequate urine chest x-ray compared with yesterday's x-ray some improvement have been noted, white cell count is 11,000, hemoglobin 7.9 which is stable, arterial blood gas improved to 7.39, pCO2 of 40, pO2 112, BUN/creatinine is 33/0.96, lactic acid was 5.9 down to 1.3 now, ferritin level noted to be 12,800, AST and ALT are 4014 100 with LDH over 21,500, today LFTs significantly improved AST is down to 2795 and ALT is 1222, pro calcitonin is 0.84, suspect some component of heart failure as well as pneumonia, will get an echocardiogram as well as start patient on broad-spectrum antibiotics with cefepime and Vanco Patient seen and evaluated examined in the emergency department, patient came into the ER from the office of Dr. Aleman due to progressive shortness of breath, patient has acute on chronic hypoxic respiratory failure on 4 L oxygen, also has issues associated with pneumonia presumed to be cold with 19, however, testing was negative, patient used to smoke in the remote past quit about 20-30 years ago due to severity or shortness of breath and hypoxia with saturation of 76% on 100% oxygen and respiratory distress patient was intubated due to poor tolerance on BiPAP, patient Covid testing came back positive, chest x-ray showing diffuse infiltrate she also has been noted to have elevated liver enzymes due to elevated liver enzymes will not start IV REMdesivir, Initial ABG pH is 7.18, pCO2 is 63 pO2 was only 33 Objective - Vital Signs Vital signs: Vital Signs Temp 98.1 F 04/21/20 11:00 Pulse 107 H 04/21/20 11:00 Resp 20 04/21/20 11:00 BP 134/76 04/21/20 11:00 Pulse Ox 97 04/21/20 15:17 Intake & Output 04/20/20 04/21/20 04/21/20 18:59 06:59 18:59 Intake Total 940 Output Total 500 650 Balance -500 290 Weight 72 kg 72 kg Intake: IV 600 Sodium Chloride 0.9% 1, 600 000 ml @ 50 mls/hr IV . Q20H NONA Rx#:[id number] Intake, IV Titration 50 Amount DAPTOmycin 500 mg In 50 Sodium Chloride 0.9% 50 ml @ 100 mls/hr IVPB Q24H NONA Rx#:[id number] Oral 290 Output: Urine 500 650 Uretheral (Quick) 650 Other: Voiding Method Indwelling Catheter Indwelling Catheter Indwelling Catheter - Exam Patient on 80% oxygen 15 L aerosolized saturation is 90% to 92% - Constitutional General appearance: average body habitus, mild distress, restless intermittently agitated - EENT Ears: bilateral: normal - Neck Carotids: bilateral: upstroke normal Thyroid: bilateral: normal size - Respiratory Respiratory: bilateral: diminished - Cardiovascular Rhythm: regular Heart sounds: normal: S1, S2 - Gastrointestinal General gastrointestinal: normal bowel sounds Patient is relatively more awake and alert compared to yesterday exam - Labs CBC & Chem 7: 04/21/20 05:19 04/21/20 05:19 Labs: Abnormal Lab Results - Last 24 Hours (Table) 04/20/20 04/20/20 04/21/20 Range/Units 16:57 21:09 05:19 Hgb 11.0 L (11.4-16.0) gm/dL Hct 33.7 L (34.0-46.0) % RDW 17.4 H (11.5-15.5) % Lymphocytes # 0.4 L (1.0-4.8) k/uL Sodium (135-145) mmol/L Carbon Dioxide (21.6-31.8) mmol/L Creatinine (0.6-1.5) mg/dL BUN/Creatinine Ratio (12.00-20.00) Ratio Glucose (70-110) mg/dL POC Glucose (mg/dL) 222 H 257 H (75-99) mg/dL Calcium (8.7-10.3) mg/dL 04/21/20 04/21/20 04/21/20 Range/Units 05:19 07:40 11:40 Hgb (11.4-16.0) gm/dL Hct (34.0-46.0) % RDW (11.5-15.5) % Lymphocytes # (1.0-4.8) k/uL Sodium 127 L (135-145) mmol/L Carbon Dioxide 21.3 L (21.6-31.8) mmol/L Creatinine 0.5 L (0.6-1.5) mg/dL BUN/Creatinine Ratio 30.00 H (12.00-20.00) Ratio Glucose 176 H (70-110) mg/dL POC Glucose (mg/dL) 185 H 318 H (75-99) mg/dL Calcium 7.7 L (8.7-10.3) mg/dL Assessment and Plan Assessment: Hyponatremia Generalized weakness and medical debility Gram-positive bacteremia and VRE has been noted in urine blood on daptomycin Agitated delirium along with metabolic encephalopathy likely multifactorial including Covid 19 pneumonia, is being in ICU, for intubation long period time sepsis, slowly improving Acute hypoxic respiratory failure Covid19 pneumonia Thrombocytopenia stable Acute hepatitis/elevated liver enzymes Acute diastolic heart failure Chronic anemia Fibromyalgia Hypertension hypertensive cardiovascular disease Plan: Continue supportive care, oxygen taper as tolerated Continue daptomycin IV steroids, taper as tolerated Further recommendations pending plan of care as per clinical response of patient Continue anticoagulation with Lovenox PT OT evaluation Monitor labs and sodium closely Time with Patient: Greater than 30
[2020-04-21 17:27] LABS: Glucose,Whole Blood 261 mg/dL (75-99)
[2020-04-21 20:29] LABS: Glucose,Whole Blood 211 mg/dL (75-99)
[2020-04-21] MEDS: FLUCONAZOLE 100 MG TAB PO SCH (21:45)
[2020-04-21] MEDS: AMITRIPTYLINE HCL 50 MG TAB PO SCH (22:36)
[2020-04-21] MEDS: DAPTOmycin 500 MG in SODIUM CHLORIDE 0.9% 50 ML IVPB SCH (23:02)
--- NOTE | 2020-04-21 23:31 | PN ---
PROGRESS NOTE DATE OF SERVICE: 04/21/2020 REASON FOR FOLLOW UP: Enterococcus, VRE UTI, Enterococcus faecalis bacteremia. INTERVAL COURSE: The patient is currently afebrile. The patient noted to be slightly weak, lethargic and unable to provide any history. No vomiting or diarrhea or any changes reported by nursing staff. PHYSICAL EXAMINATION: Blood pressure 102/65, pulse of 66. Temperature 97.4. She is 100% on 8 L nasal cannula. General description is an elderly female lying in bed in no distress. Respiratory system: Unlabored breathing, decreased breath sounds at bases. No wheeze. HEART: S1, S2. Regular rate and rhythm. ABDOMEN: Soft, no tenderness. LABS: Hemoglobin 11, white count 8.3, BUN of 15, creatinine 0.5. DIAGNOSTIC IMPRESSION AND PLAN: Patient with Enterococcus faecalis bacteremia. Repeat blood culture negative. Also with VRE UTI, currently covered with daptomycin to continue while inpatient. Monitor clinical course closely. Continue supportive care. MMODL / IJN: [id number] /
[2020-04-22 06:35] LABS: Anisocytosis Slight; Basophils % (A) 0 %; Eosinophils # (A) 0.1 k/uL (0-0.7); Eosinophils % (A) 1 %; HCT 29.2 % (34.0-46.0); HGB 9.6 gm/dL (11.4-16.0); Hypochromasia Marked; Lymphocytes # (A) 0.5 k/uL (1.0-4.8); Lymphocytes % (A) 5 %; MCH 29.2 pg (25.0-35.0); MCV 88.4 fL (80.0-100.0); Mean Platelet Volume 8.9; Monocytes # (A) 0.3 k/uL (0-1.0); Monocytes % (A) 3 %; Neutrophils # (A) 8.5 k/uL (1.3-7.7); Neutrophils % (A) 90 %; Platelet Count 137 k/uL (150-450); Poikilocytosis Slight; RDW 17.4 % (11.5-15.5); WBC 9.4 k/uL (3.8-10.6)
[2020-04-22 07:22] LABS: Glucose,Whole Blood 113 mg/dL (75-99)
--- NOTE | 2020-04-22 08:15 | P.PN ---
Subjective Principal diagnosis: Respiratory failure related Covid pneumonia.. Otherwise appreciate multiple consultants input. The patient is now on a general medical floor lucid and recovering appropriately. She still needing quite a bit of oxygen support but is improving. Objective - Vital Signs Vital signs: Vital Signs Temp 97.4 F L 04/22/20 05:00 Pulse 68 04/22/20 05:00 Resp 18 04/22/20 05:00 BP 113/66 04/22/20 05:00 Pulse Ox 95 04/22/20 05:00 Intake & Output 04/21/20 04/22/20 04/22/20 18:59 06:59 18:59 Intake Total 600 Balance 600 Weight 72 kg 72 kg Intake: IV 600 Sodium Chloride 0.9% 1, 600 000 ml @ 50 mls/hr IV . Q20H [facility] Rx#:[id number] Other: Voiding Method Indwelling Catheter Indwelling Catheter - Constitutional General appearance: Present: average body habitus - EENT Eyes: Absent: abnormal pupil - Neck Neck: Absent: lymphadenopathy - Respiratory Respiratory: bilateral: diminished - Cardiovascular Rhythm: regular Heart sounds: normal: S1, S2 Abnormal Heart Sounds: Absent: S3 Gallop - Gastrointestinal General gastrointestinal: Present: soft. Absent: tenderness - Musculoskeletal Musculoskeletal: Present: generalized weakness - Psychiatric Psychiatric: Present: A&O x's 3, appropriate affect - Labs CBC & Chem 7: 04/22/20 05:53 04/21/20 05:19 Labs: Abnormal Lab Results - Last 24 Hours (Table) 04/21/20 04/21/20 04/21/20 Range/Units 05:19 11:40 17:26 RBC (3.80-5.40) m/uL Hgb (11.4-16.0) gm/dL Hct (34.0-46.0) % RDW (11.5-15.5) % Plt Count (150-450) k/uL Neutrophils # (1.3-7.7) k/uL Lymphocytes # (1.0-4.8) k/uL Sodium 127 L (135-145) mmol/L Carbon Dioxide 21.3 L (21.6-31.8) mmol/L Creatinine 0.5 L (0.6-1.5) mg/dL BUN/Creatinine Ratio 30.00 H (12.00-20.00) Ratio Glucose 176 H (70-110) mg/dL POC Glucose (mg/dL) 318 H 261 H (75-99) mg/dL Calcium 7.7 L (8.7-10.3) mg/dL 04/21/20 04/22/20 04/22/20 Range/Units 20:27 05:53 07:20 RBC 3.30 L (3.80-5.40) m/uL Hgb 9.6 L (11.4-16.0) gm/dL Hct 29.2 L (34.0-46.0) % RDW 17.4 H (11.5-15.5) % Plt Count 137 L (150-450) k/uL Neutrophils # 8.5 H (1.3-7.7) k/uL Lymphocytes # 0.5 L (1.0-4.8) k/uL Sodium (135-145) mmol/L Carbon Dioxide (21.6-31.8) mmol/L Creatinine (0.6-1.5) mg/dL BUN/Creatinine Ratio (12.00-20.00) Ratio Glucose (70-110) mg/dL POC Glucose (mg/dL) 211 H 113 H (75-99) mg/dL Calcium (8.7-10.3) mg/dL Assessment and Plan (1) Acute respiratory distress syndrome Current Visit: Yes Status: Acute Code(s): J80 - ACUTE RESPIRATORY DISTRESS SYNDROME SNOMED Code(s): 82725338 (2) Anemia Current Visit: Yes Status: Acute Code(s): D64.9 - ANEMIA, UNSPECIFIED SNOMED Code(s): 958296210 (3) COVID-19 Current Visit: Yes Status: Acute Code(s): U07.1 - COVID-19 SNOMED Code(s): 603510572 (4) Pneumonia Current Visit: Yes Status: Acute Code(s): J18.9 - PNEUMONIA, UNSPECIFIED ORGANISM SNOMED Code(s): 220677310 (5) Fibromyalgia Current Visit: No Status: Acute Code(s): M79.7 - FIBROMYALGIA SNOMED Code(s): 784428437 Plan: Appropriate supportive care. Prognosis still Guarded due to her Covid 19. We'll continue to follow with consultants. Check CBC and CMP in a.m. Increase ambulation as possible..
[2020-04-22] MEDS: SERTRALINE 100 MG TAB PO SCH (08:44)
[2020-04-22] MEDS: CHOLECALCIFEROL 400 UNIT TAB PO SCH (08:44)
[2020-04-22] MEDS: ASCORBIC ACID 500 MG TAB PO SCH ×2 (08:45→22:54)
[2020-04-22] MEDS: ZINC SULFATE 220 MG CAP PO SCH (08:45)
[2020-04-22] MEDS: hydrALAZINE HCL 25 MG TAB PO SCH ×3 (08:45→22:54)
[2020-04-22] MEDS: amLODIPine 5 MG TAB PO SCH ×2 (08:51→22:53)
[2020-04-22] MEDS: PANTOPRAZOLE 40 MG TABLET PO SCH ×2 (08:51→22:54)
[2020-04-22] MEDS: methylPREDNISolone SOD SUCCI 40 MG/ML 1 ML VIAL IV SCH ×2 (08:51→22:55)
[2020-04-22] MEDS: ENOXAPARIN 40 MG/0.4 ML SYRINGE SQ SCH ×2 (08:51→22:53)
[2020-04-22] MEDS: INSULIN ASPART (NovoLOG) 100 UNIT/ML VIAL SQ SCH ×4 (08:51→22:55)
[2020-04-22 10:22] LABS: African American GFR (CKD) 122.3 (60.0-200.0); Albumin 3.1 g/dL (3.80-4.90); Albumin/Globulin Ratio 1.48 (1.60-3.17); Anion Gap 8.2 mmol/L (4.00-12.00); BUN/Creat Ratio 47.5 Ratio (12.00-20.00); Carbon Dioxide 19.8 mmol/L (21.6-31.8); Globulin 2.1 g/dL (1.6-3.3); Non-African American GFR(CKD) 105.5 (60.0-200.0); Total Bilirubin 0.2 mg/dL (0.3-1.2); Total Protein 5.2 g/dL (6.2-8.2)
[2020-04-22 12:12] LABS: Glucose,Whole Blood 255 mg/dL (75-99)
--- NOTE | 2020-04-22 12:13 | P.PN ---
Subjective Progress Note Date: 04/22/20 Principal diagnosis: Acute hypoxic respiratory failure Covid19 pneumonia Acute respiratory and metabolic acidosis Acute hepatitis/elevated liver enzymes Acute diastolic heart failure and fluid overload Chronic anemia Fibromyalgia Hypertension hypertensive cardiovascular disease 04/22/2020, patient seen eval examined during the rounds labs reviewed medications reviewed care plan discussed, respiratory status continued to be stable currently patient over a liter oxygen sitting upright on the bed breathing comfortably, oxygen demand however continued to be high, oxygen saturation 95-88%, 04/21/2020, patient seen eval examined, slightly more short of breath appetite poor did not consume more than one fourth of tray, remains very weak, oxygen requirement increased to 8 L, somnolent but arousable, will decrease his steroid to once a day 04/20/2020, patient continued do well, oxygen is down to 6 L now from 7 L, patient appetite and mental status continued to improve will continue current plan of care 04/19/2020, patient seen eval examined during the rounds labs reviewed medications reviewed, patient is now down to 8 L from 10 L, saturation is mid 90s, respiratory status stable, we'll continue titrated oxygen down as tolerated slowly 2-3 L in 24 hours as tolerated 04/18/2020, patient seen eval examined during the rounds labs reviewed medications reviewed respiratory status remains stable denies any chest pain, patient remains on high flow oxygen, saturation well, discussed was titrated down as tolerated, labs reviewed medications reviewed, currently patient is on 10 L 45% airvo 04/17/2020, patient seen eval examined more awake and alert breathing comfortably no obvious distress is present, oxygen being titrated down off of high flow and airvo, on 15 L high flow saturating low to mid 80s and dropped down some back on aerosolized oxygen, mental status more clear tolerating by mouth well extremely weak continued PT OT and supportive care 04/16/2020, patient seen eval examined during the rounds respiratory status continued to improve so as the mental status however is still on high flow air VO oxygen 04/15/2020, patient seen eval examined during the rounds labs reviewed medications reviewed care plan discussed, patient remains on high flow oxygen 15 L 70% oxygen saturation remains marginal low 90s to high 80s previously today noted to be 94%, patient has been tolerating by mouth well, has been moved down from the ICU labs from today reviewed slight hyponatremia noted otherwise fairly within normal limit patient remains on Lovenox along with daptomycin fluconazole, IV steroids, patient has finished usual therapy for covid19 pneumo raimundo 04/14/2020, patient remains on 50% oxygen 70L, awake slightly confused, shortness of breath is not obvious hemodynamic status stable tolerating by mouth well patient will be moved out of the ICU when bed available 04/13/2020, patient seen eval examined during the rounds labs reviewed medicatio ns reviewed care plan discussed with the staff, respiratory status remains stable continued to be on the 75% oxygen 15 L high flow, remains afebrile remains on antibiotics patient will be transferred to [facility] with remote telemetry date on today 04/12/2020, patient seen eval examined during rounds labs reviewed medications reviewed, respiratory status remains unchanged, patient remains on 15 L 75% oxygen unable to titrate oxygen down, appetite continued to improve, patient able to swallow well, labs reviewed medications reviewed care plan discussed with the staff at length, patient can be moved out to [facility] with remote telemetry 04/11/2020, patient seen eval examined during evaluation patient noted to be more awake and alert compared to prior exam however patient remains on 15 L 75% aerosolized oxygen high flow, no obvious distress present patient remains afebrile, remains on broad-spectrum antibiotics and usual care for coronary 19 pneumonia April 10 2020 patient seen eval examined sitting upright on the bed breathing comfortably, patient remains on high flow oxygen 15 L 75%, swallow evaluation completed patient able to swallow well will start by mouth blood pressure prob roger remains an issue we will increase the dose of Norvasc continue oral hydralazine monitor blood pressure closely, absolute reviewed x-ray reviewed continued to show bilateral interstitial infiltrate predominantly in mid part and basis 04/09/2020, patient seen eval examined in the ICU, respiratory status remains marginal but stable, patient is on 80% aerosolized oxygen 15 L, saturation is 90%, more awake and alert, swallowing functions will be reassessed later on today by speech therapist, mental status changes agitated behavior and confusion remains an issue which causes blood pressure to go up as well, 04/08/2020, patient seen eval examined during the rounds labs reviewed medications reviewed care plan discussed, patient remains on BiPAP 15/5 with 70% oxygen, oxygen saturation 94% more awake alert, will try high flow aerosolized oxygen, blood culture positive for gram positive cocci in chain, patient is on IV vancomycin he is following 04/07/2020, patient seen eval examined during the rounds labs reviewed medications reviewed, mental status remains stable slightly improved however, patient intermittently get anxious and agitated, low-grade temperature 90 is present hemodynamically stable though, saturation is 90% to 93% on partial nonrebreather mask, chest x-ray remains stable, white cell count remains elevated, 04/06/2020, patient seen eval examined during the rounds labs reviewed medications reviewed, patient remains off of ventilator, mental status slightly better today compared to last 24-48 hours less agitated awake oriented 1 now, remains on partial nonrebreather mask, saturation is 94%, LAD pressure slightly running on the higher side remains on IV hydralazine, oxygen saturation is 94% to 96%, 04/05/2020, patient seen eval reexamined successfully weaned and extubated yesterday has been on supplemental oxygen 2-4 L, in the last 8-12 hours however decompensation in oxygenation status as well as patient even though awake but remains agitated appears to have a agitated delirium, does require Dilaudid at a regular interval, remains afebrile, oxygen saturation is 99% on 10 L nonrebreather mask, patient cannot take by mouth medicines are listed IV, will try morphine as needed DC Dilaudid, 04/04/2020, patient seen eval examined during the rounds labs reviewed medications reviewed care plan discussed, patient is awake now remains off of propofol since yesterday, does make intermittent eye contact, remains slightly withdrawn however, respiratory status stable, remains on assist control mode rate of 24, tidal volume is 450, +5 of PEEP, 40% oxygen, peak airway pressure stable, chest x-ray shows bilateral diffuse interstitial infiltrate stable ET t ube and NG tube in PICC line, white cell count is 13,400, hemoglobin and hematocrit stable 9.4 and 31, arterial blood gases reviewed pH is 7.4 to pCO2 32 pO2 64, BUN/creatinine is 32 and 0.5, patient is reviewed Lovenox remains 2040 mg subcu twice a day on IV furosemide, Solu-Medrol is 60 mg IV every 6 we'll decrease it to every 12 04/03/2020, patient seen eval examined during rounds labs reviewed medications reviewed, care plan discussed, overall hemodynamically he remains stable blood pressure spiked up on hydralazine when necessary, seems to be helping, patient sedated with propofol drip 50 mics, attempts for weaning of protocol has been unsuccessful as patient becomes agitated, attempted Precedex drip has been unsuccessful as well, current vent settings include assist control rate of 24 breathing 24, FiO2 is 40%, PEEP is 5, tidal volume is 450, chest x-ray stable ET tube with bilateral multifocal infiltrate with consolidation consistent with cold with 19 pneumonia not essentially much change from the prior x-ray, ET tube and NG tube was stable, patient is getting tube feed bolus feeding, labs including ABG chemistry reviewed 04/02/2020, patient seen eval examined during the rounds labs reviewed medications reviewed care plan discussed, patient remains sedated with propofol on ventilator for full ventilator support, currently patient is on assist control mode rate Tuesday for breathing 24, tidal volume is 450, 5 of PEEP, 40% oxygen, propofol is 50 mics, chest x-ray from today reviewed continue show patchy bilateral infiltrate without any significant interval change, arterial blood gases revealed pH of 7.43 pCO2 32, C-reactive protein is down to 21, BUN/creatinine is 34/.49, white cell count and hemoglobin remained stable, medications reviewed, she remains on broad-spectrum antibiotic with cephapirin, Lovenox, gentle diuresis with Lasix, blood pressure control with IV hydralazine, patient remains on high-dose IV steroids, discussed with the staff at length, will stop the propofol drip and once patient is awake put on CPAP 5 pressure support of 5 gas after half an hour also check weaning parameters 04/01/2020, patient seen eval examined labs reviewed medications reviewed care plan discussed with the staff at length patient had a sedation holiday today she is arousable and awake follows simple commands with blood pressure went up becomes agitated anxious requiring a reinitiation of propofol drip, ventilator setting remains unchanged, patient is on rate of 24 tidal volume is 450, PEEP is 5, oxygen is 40%, chest x-ray from today reviewed remains overall stable with stable lines and tubes 03/31/2020, patient seen eval examined during the rounds labs reviewed medications reviewed care plan discussed, patient remains on full ventilator support, propofol was changed to Precedex but however patient becomes agitated so back on propofol when setting remains unchanged have been on assist control rate of 24, PEEP is 5, FiO2 is 40%, tidal volume of 450, care plan discussed with the staff at length critical care time 35 minutes 03/30/2020, patient seen eval examined during the rounds labs reviewed medications reviewed, remains sedated with propofol, current vent setting include his control rate of 24 breathing 24 tidal volume is 450, deep is 5 now, FiO2 is 40%, tolerating tube feed very well, chest x-ray reviewed slightly better but stable bilateral infiltrate consistent with atypical pneumonia, patient continued IVs very well with 20 mg Lasix daily, white cell count remained stable, with stable hemoglobin and however decreasing platelet count noted, dear blood gases revealed pH of 7.4 to pCO2 34 pO2 of 62, BUN/creatinine is 36 and 0.62, left he continue show downward trend, inflammatory markers reviewed still elevated but showing a downward trend 03/29/2020, patient seen eval examined during the rounds labs reviewed medications reviewed, care plan discussed with the nursing staff at length, patient has been on assist control rate of the 24 PEEP of 8 400 tidal volume 50% oxygen, ventilator has been adjusted with reduction in PEEP and oxygen, patient's saturation remained stable 91-92%, next step he is to stop propofol and reassess the mental status and if patient remains stable oxygen randolph and hemodynamics can do a CPAP pressure support trial in the meantime we'll continue IV steroids, antibiotics, CBC and ABG reviewed, today's chest x-ray showed bilateral interstitial infiltrate, predominantly at the bases, patient has been on Lasix 20 mg daily diuresing very well, critical care time 35 minutes 03/28/2020, patient seen eval examined during the rounds labs reviewed medications reviewed care plan discussed oxygen has been down to 40% now. The patient is PEEP of 8, otherwise ventilator setting remains stable, patient is scheduled for PICC line later on today, remains on propofol, remains on broad- spectrum antibiotics, labs from today has been reviewed hemoglobin is stable 7.9, d-dimer is 3.24, arterial blood gases stable pH is 7.41 pCO2 35 pO2 96, BUN/creatinine is 51 and 1.05, ferritin level remains more than 26,000, AST ALT continued decline however today is 367 and 558, C-reactive protein checked 69.5 her chest x-ray earlier than today remains there however appears to have slightly progressed 03/27/2020, patient seen eval examined during the rounds labs reviewed medications reviewed care plan discussed, propofol has been discontinued patient because very restless and anxious, we'll restart propofol, patient has been on full ventilator support assist control 24 tidal volume of 450, PEEP is 10, oxyge n is 70%, arterial blood gases reviewed when lower the FiO2 to 60% now plan to bring down the FiO2 to 50% and PEEP of 8 next 24 hours, sputum and blood cultures reviewed no growth so far, chest x-ray performed today reviewed significant improvement in infiltrates seen bilaterally, patient has a poor urine output throughout the night, 20 mg of Lasix was given put out 600 mL of urine patient continued to be on gentle hydration, remain on cefapime and Vanco, Lovenox Solu-Medrol multivitamin and vitamin C zinc and Lovenox, white cell count is stable 10,500 hemoglobin and hematocrit 7.2 and 24, general surgery has been following patient is considered to get EGD and colonoscopy once stable, arterial blood gas revealed pH of 7.39 pCO2 of 39 pO2 of 124, bicarb 25, liver enzymes continue to come down AST and ALT now is 944/809, hepatitis panel normal and nonreactive 03/26/2020, patient seen eval examined in the ICU care plan discussed with the staff, FiO2 has been down to 60%, patient remains on assist control tidal volume of 450, PEEP is 10, respiratory rate is 24 breathing with the respirator pH has been improved significantly, patient is making adequate urine chest x-ray compared with yesterday's x-ray some improvement have been noted, white cell count is 11,000, hemoglobin 7.9 which is stable, arterial blood gas improved to 7.39, pCO2 of 40, pO2 112, BUN/creatinine is 33/0.96, lactic acid was 5.9 down to 1.3 now, ferritin level noted to be 12,800, AST and ALT are 4014 100 with LDH over 21,500, today LFTs significantly improved AST is down to 2795 and ALT is 1222, pro calcitonin is 0.84, suspect some component of heart failure as well as pneumonia, will get an echocardiogram as well as start patient on broad-spectrum antibiotics with cefepime and Vanco Patient seen and evaluated examined in the emergency department, patient came into the ER from the office of Dr. Aleman due to progressive shortness of breath, patient has acute on chronic hypoxic respiratory failure on 4 L oxygen, also has issues associated with pneumonia presumed to be cold with 19, however, testing was negative, patient used to smoke in the remote past quit about 20-30 years ago due to severity or shortness of breath and hypoxia with saturation of 76% on 100% oxygen and respiratory distress patient was intubated due to poor tolerance on BiPAP, patient Covid testing came back positive, chest x-ray showing diffuse infiltrate she also has been noted to have elevated liver enzymes due to elevated liver enzymes will not start IV REMdesivir, Initial ABG pH is 7.18, pCO2 is 63 pO2 was only 33 Objective - Vital Signs Vital signs: Vital Signs Temp 97.4 F L 04/22/20 05:00 Pulse 70 04/22/20 08:00 Resp 18 04/22/20 08:00 BP 113/66 04/22/20 05:00 Pulse Ox 95 04/22/20 05:00 Intake & Output 04/21/20 04/22/20 04/22/20 18:59 06:59 18:59 Intake Total 600 Balance 600 Weight 72 kg 72 kg Intake: IV 600 Sodium Chloride 0.9% 1, 600 000 ml @ 50 mls/hr IV . Q20H [facility] Rx#:[id number] Other: Voiding Method Indwelling Catheter Indwelling Catheter Indwelling Catheter - Exam Patient on 80% oxygen 15 L aerosolized saturation is 90% to 92% - Constitutional General appearance: average body habitus, mild distress, restless intermittently agitated - EENT Ears: bilateral: normal - Neck Carotids: bilateral: upstroke normal Thyroid: bilateral: normal size - Respiratory Respiratory: bilateral: diminished - Cardiovascular Rhythm: regular Heart sounds: normal: S1, S2 - Gastrointestinal General gastrointestinal: normal bowel sounds Patient is relatively more awake and alert compared to yesterday exam - Labs CBC & Chem 7: 04/22/20 05:53 04/22/20 05:53 Labs: Abnormal Lab Results - Last 24 Hours (Table) 04/21/20 04/21/20 04/22/20 Range/Units 17:26 20:27 05:53 RBC 3.30 L (3.80-5.40) m/uL Hgb 9.6 L (11.4-16.0) gm/dL Hct 29.2 L (34.0-46.0) % RDW 17.4 H (11.5-15.5) % Plt Count 137 L (150-450) k/uL Neutrophils # 8.5 H (1.3-7.7) k/uL Lymphocytes # 0.5 L (1.0-4.8) k/uL Sodium (135-145) mmol/L Carbon Dioxide (21.6-31.8) mmol/L Creatinine (0.6-1.5) mg/dL BUN/Creatinine Ratio (12.00-20.00) Ratio POC Glucose (mg/dL) 261 H 211 H (75-99) mg/dL Calcium (8.7-10.3) mg/dL Total Bilirubin (0.3-1.2) mg/dL AST (13-35) U/L ALT (8-44) U/L Total Protein (6.2-8.2) g/dL Albumin (3.80-4.90) g/dL Albumin/Globulin Ratio (1.60-3.17) g/dL 04/22/20 04/22/20 Range/Units 05:53 07:20 RBC (3.80-5.40) m/uL Hgb (11.4-16.0) gm/dL Hct (34.0-46.0) % RDW (11.5-15.5) % Plt Count (150-450) k/uL Neutrophils # (1.3-7.7) k/uL Lymphocytes # (1.0-4.8) k/uL Sodium 129 L (135-145) mmol/L Carbon Dioxide 19.8 L (21.6-31.8) mmol/L Creatinine 0.4 L (0.6-1.5) mg/dL BUN/Creatinine Ratio 47.50 H (12.00-20.00) Ratio POC Glucose (mg/dL) 113 H (75-99) mg/dL Calcium 8.0 L (8.7-10.3) mg/dL Total Bilirubin 0.2 L (0.3-1.2) mg/dL AST 58 H (13-35) U/L ALT 63 H (8-44) U/L Total Protein 5.2 L (6.2-8.2) g/dL Albumin 3.10 L (3.80-4.90) g/dL Albumin/Globulin Ratio 1.48 L (1.60-3.17) g/dL Assessment and Plan Assessment: Hyponatremia Generalized weakness and medical debility Gram-positive bacteremia and VRE has been noted in urine blood on daptomycin Agitated delirium along with metabolic encephalopathy likely multifactorial including Covid 19 pneumonia, is being in ICU, for intubation long period time sepsis, slowly improving Acute hypoxic respiratory failure Covid19 pneumonia Thrombocytopenia stable Acute hepatitis/elevated liver enzymes Acute diastolic heart failure Chronic anemia Fibromyalgia Hypertension hypertensive cardiovascular disease Plan: Continue supportive care, oxygen taper as tolerated Continue daptomycin IV steroids, taper as tolerated Further recommendations pending plan of care as per clinical response of patient Continue anticoagulation with Lovenox PT OT evaluation Monitor labs and sodium closely Time with Patient: Greater than 30
[2020-04-22] MEDS: SODIUM CHLORIDE 0.9% 1,000 ML IV SCH (13:21)
--- NOTE | 2020-04-22 14:45 | P.PN ---
Subjective Progress Note Date: 04/22/20 HISTORY OF PRESENT ILLNESS This is a 69-year-old female patient treated for enterococcus VRE UTI and Enter ococcus faecalis bacteremia. She is currently on daptomycin which will be continued and she'll she is discharged. No antibiotics will be required at the time of discharge and she would have completed her course. Patient denies having any cough, shortness of breath. No chest pain. No nausea vomiting and diarrhea. She denies any abdominal pain. No fever or chills. Patient has been afebrile, heart rate 68, blood pressure 125/69, pulse ox 95% on 8 L high flow nasal cannula. WBC 9.4, hemoglobin 9.6, platelet count 137. Sodium 129, creatinine 0.4. AST 58, ALT 63, alkaline phosphatase 72. Blood cultures from April 09 are negative. PHYSICAL EXAMINATION Gen: This is a 69-year-old female. She is resting in bed appears to be comfortable. HEENT: Head is atraumatic, normocephalic. Pupils equal, round. Sclerae is anicteric. NECK: Supple. No JVD. No lymphadenopathy. LUNGS: Decreased breath sounds at the bases. No intercostal retractions. HEART: Regular rate and rhythm. No murmur. ABDOMEN: Soft. Bowel sounds are present. No masses. No tenderness. EXTREMITIES: No pedal edema. No calf tenderness. NEUROLOGICAL: Patient is awake, alert and oriented x3. ASSESSMENT Enterococcus and VRE UTI Enterococcus faecalis bacteremia PLAN Continue daptomycin No antibiotics necessary at the time of discharge as patient has completed course Continue supportive care The above dictated assessment and findings were discussed with Dr. Blackburn. The impression and plan of care have been directed as dictated. Naima Rascon nurse practitioner acting as scribe for Dr. Blackburn. Objective - Vital Signs Vital signs: Vital Signs Temp 97.3 F L 04/22/20 11:00 Pulse 68 04/22/20 11:00 Resp 20 04/22/20 11:00 BP 125/69 04/22/20 11:00 Pulse Ox 95 04/22/20 11:00 Intake & Output 04/21/20 04/22/20 04/22/20 18:59 06:59 18:59 Intake Total 600 Balance 600 Weight 72 kg 72 kg Intake: IV 600 Sodium Chloride 0.9% 1, 600 000 ml @ 50 mls/hr IV . Q20H [facility] Rx#:[id number] Other: Voiding Method Indwelling Catheter Indwelling Catheter Indwelling Catheter - Labs CBC & Chem 7: 04/22/20 05:53 04/22/20 05:53 Labs: Abnormal Lab Results - Last 24 Hours (Table) 04/21/20 04/21/20 04/22/20 Range/Units 17:26 20:27 05:53 RBC 3.30 L (3.80-5.40) m/uL Hgb 9.6 L (11.4-16.0) gm/dL Hct 29.2 L (34.0-46.0) % RDW 17.4 H (11.5-15.5) % Plt Count 137 L (150-450) k/uL Neutrophils # 8.5 H (1.3-7.7) k/uL Lymphocytes # 0.5 L (1.0-4.8) k/uL Sodium (135-145) mmol/L Carbon Dioxide (21.6-31.8) mmol/L Creatinine (0.6-1.5) mg/dL BUN/Creatinine Ratio (12.00-20.00) Ratio POC Glucose (mg/dL) 261 H 211 H (75-99) mg/dL Calcium (8.7-10.3) mg/dL Total Bilirubin (0.3-1.2) mg/dL AST (13-35) U/L ALT (8-44) U/L Total Protein (6.2-8.2) g/dL Albumin (3.80-4.90) g/dL Albumin/Globulin Ratio (1.60-3.17) g/dL 04/22/20 04/22/20 04/22/20 Range/Units 05:53 07:20 12:11 RBC (3.80-5.40) m/uL Hgb (11.4-16.0) gm/dL Hct (34.0-46.0) % RDW (11.5-15.5) % Plt Count (150-450) k/uL Neutrophils # (1.3-7.7) k/uL Lymphocytes # (1.0-4.8) k/uL Sodium 129 L (135-145) mmol/L Carbon Dioxide 19.8 L (21.6-31.8) mmol/L Creatinine 0.4 L (0.6-1.5) mg/dL BUN/Creatinine Ratio 47.50 H (12.00-20.00) Ratio POC Glucose (mg/dL) 113 H 255 H (75-99) mg/dL Calcium 8.0 L (8.7-10.3) mg/dL Total Bilirubin 0.2 L (0.3-1.2) mg/dL AST 58 H (13-35) U/L ALT 63 H (8-44) U/L Total Protein 5.2 L (6.2-8.2) g/dL Albumin 3.10 L (3.80-4.90) g/dL Albumin/Globulin Ratio 1.48 L (1.60-3.17) g/dL
[2020-04-22 17:09] LABS: Glucose,Whole Blood 138 mg/dL (75-99)
[2020-04-22 20:05] LABS: Glucose,Whole Blood 174 mg/dL (75-99)
[2020-04-22] MEDS: AMITRIPTYLINE HCL 50 MG TAB PO SCH (22:54)
[2020-04-22] MEDS: FLUCONAZOLE 100 MG TAB PO SCH (22:54)
[2020-04-22] MEDS: DAPTOmycin 500 MG in SODIUM CHLORIDE 0.9% 50 ML IVPB SCH (22:55)
[2020-04-22] MEDS: HYDROmorphone 1 MG/ML 1 ML SYRINGE IVP PRN (22:57)
[2020-04-23 06:23] LABS: Anisocytosis Slight; HCT 26.4 % (34.0-46.0); HGB 8.6 gm/dL (11.4-16.0); Hypochromasia Marked; MCHC 32.7 g/dL (31.0-37.0); MCV 88.9 fL (80.0-100.0); Mean Platelet Volume 8.6; Platelet Count 163 k/uL (150-450); Poikilocytosis Slight; RBC 2.97 m/uL (3.80-5.40); RDW 17.6 % (11.5-15.5); WBC 8.8 k/uL (3.8-10.6)
[2020-04-23 07:01] LABS: Glucose,Whole Blood 229 mg/dL (75-99)
[2020-04-23] MEDS: SODIUM CHLORIDE 0.9% 1,000 ML IV SCH (08:29)
[2020-04-23] MEDS: INSULIN ASPART (NovoLOG) 100 UNIT/ML VIAL SQ SCH ×4 (08:31→21:26)
[2020-04-23] MEDS: amLODIPine 5 MG TAB PO SCH ×2 (08:32→21:25)
[2020-04-23] MEDS: ASCORBIC ACID 500 MG TAB PO SCH ×2 (08:32→21:25)
[2020-04-23] MEDS: ENOXAPARIN 40 MG/0.4 ML SYRINGE SQ SCH ×2 (08:33→21:25)
[2020-04-23] MEDS: CHOLECALCIFEROL 400 UNIT TAB PO SCH (08:33)
[2020-04-23] MEDS: hydrALAZINE HCL 25 MG TAB PO SCH ×3 (08:34→21:25)
[2020-04-23] MEDS: methylPREDNISolone SOD SUCCI 40 MG/ML 1 ML VIAL IV SCH (08:34)
[2020-04-23] MEDS: PANTOPRAZOLE 40 MG TABLET PO SCH ×2 (08:35→21:25)
[2020-04-23] MEDS: SERTRALINE 100 MG TAB PO SCH (08:35)
[2020-04-23] MEDS: ZINC SULFATE 220 MG CAP PO SCH (08:36)
--- NOTE | 2020-04-23 10:34 | P.PN ---
Subjective Progress Note Date: 04/23/20 Principal diagnosis: Acute hypoxic respiratory failure Covid19 pneumonia Acute respiratory and metabolic acidosis Acute hepatitis/elevated liver enzymes Acute diastolic heart failure and fluid overload Chronic anemia Fibromyalgia Hypertension hypertensive cardiovascular disease 04/23/2020, patient seen eval examined labs reviewed medications reviewed care plan discussed, respiratory status remains stable, patient is now on 4 L sitting upright on the chair finished her breakfast appears very well awake and alert continue supportive care oxygen saturation is now 98% 04/22/2020, patient seen eval examined during the rounds labs reviewed medications reviewed care plan discussed, respiratory status continued to be stable currently patient over a liter oxygen sitting upright on the bed breathing comfortably, oxygen demand however continued to be high, oxygen satura tion 95-88%, 04/21/2020, patient seen eval examined, slightly more short of breath appetite poor did not consume more than one fourth of tray, remains very weak, oxygen requirement increased to 8 L, somnolent but arousable, will decrease his steroid to once a day 04/20/2020, patient continued do well, oxygen is down to 6 L now from 7 L, patient appetite and mental status continued to improve will continue current plan of care 04/19/2020, patient seen eval examined during the rounds labs reviewed medications reviewed, patient is now down to 8 L from 10 L, saturation is mid 90s, respiratory status stable, we'll continue titrated oxygen down as tolerated slowly 2-3 L in 24 hours as tolerated 04/18/2020, patient seen eval examined during the rounds labs reviewed medications reviewed respiratory status remains stable denies any chest pain, patient remains on high flow oxygen, saturation well, discussed was titrated down as tolerated, labs reviewed medications reviewed, currently patient is on 10 L 45% airvo 04/17/2020, patient seen eval examined more awake and alert breathing comfort ably no obvious distress is present, oxygen being titrated down off of high flow and airvo, on 15 L high flow saturating low to mid 80s and dropped down some back on aerosolized oxygen, mental status more clear tolerating by mouth well extremely weak continued PT OT and supportive care 04/16/2020, patient seen eval examined during the rounds respiratory status continued to improve so as the mental status however is still on high flow air VO oxygen 04/15/2020, patient seen eval examined during the rounds labs reviewed medications reviewed care plan discussed, patient remains on high flow oxygen 15 L 70% oxygen saturation remains marginal low 90s to high 80s previously today noted to be 94%, patient has been tolerating by mouth well, has been moved down from the ICU labs from today reviewed slight hyponatremia noted otherwise fairly within normal limit patient remains on Lovenox along with daptomycin fluconazole, IV steroids, patient has finished usual therapy for covid19 pneumonia 04/14/2020, patient remains on 50% oxygen 70L, awake slightly confused, shortness of breath is not obvious hemodynamic status stable tolerating by mouth well patient will be moved out of the ICU when bed available 04/13/2020, patient seen eval examined during the rounds labs reviewed medications reviewed care plan discussed with the staff, respiratory status remains stable continued to be on the 75% oxygen 15 L high flow, remains afebrile remains on antibiotics patient will be transferred to [facility] with remote telemetry date on today 04/12/2020, patient seen eval examined during rounds labs reviewed medications reviewed, respiratory status remains unchanged, patient remains on 15 L 75% oxyg en unable to titrate oxygen down, appetite continued to improve, patient able to swallow well, labs reviewed medications reviewed care plan discussed with the staff at length, patient can be moved out to [facility] with remote telemetry 04/11/2020, patient seen eval examined during evaluation patient noted to be more awake and alert compared to prior exam however patient remains on 15 L 75% aerosolized oxygen high flow, no obvious distress present patient remains afebrile, remains on broad-spectrum antibiotics and usual care for coronary 19 pneumonia April 10 2020 patient seen eval examined sitting upright on the bed breathing comfortably, patient remains on high flow oxygen 15 L 75%, swallow evaluation completed patient able to swallow well will start by mouth blood pressure problem remains an issue we will increase the dose of Norvasc continue oral hydralazine monitor blood pressure closely, absolute reviewed x-ray reviewed continued to show bilateral interstitial infiltrate predominantly in mid part and basis 04/09/2020, patient seen eval examined in the ICU, respiratory status remains marginal but stable, patient is on 80% aerosolized oxygen 15 L, saturation is 90%, more awake and alert, swallowing functions will be reassessed later on today by speech therapist, mental status changes agitated behavior and confusion remains an issue which causes blood pressure to go up as well, 04/08/2020, patient seen eval examined during the rounds labs reviewed medications reviewed care plan discussed, patient remains on BiPAP 15/ with 70% oxygen, oxygen saturation 94% more awake alert, will try high flow aerosolized oxygen, blood culture positive for gram positive cocci in chain, patient is on IV vancomycin he is following 04/07/2020, patient seen eval examined during the rounds labs reviewed medications reviewed, mental status remains stable slightly improved however, gi juan c intermittently get anxious and agitated, low-grade temperature 90 is present hemodynamically stable though, saturation is 90% to 93% on partial nonrebreather mask, chest x-ray remains stable, white cell count remains elevated, 04/06/2020, patient seen eval examined during the rounds labs reviewed medications reviewed, patient remains off of ventilator, mental status slightly better today compared to last 24-48 hours less agitated awake oriented 1 now, remains on partial nonrebreather mask, saturation is 94%, LAD pressure slightly running on the higher side remains on IV hydralazine, oxygen saturation is 94% to 96%, 04/05/2020, patient seen eval reexamined successfully weaned and extubated yesterday has been on supplemental oxygen 2-4 L, in the last 8-12 hours however decompensation in oxygenation status as well as patient even though awake but remains agitated appears to have a agitated delirium, does require Dilaudid at a regular interval, remains afebrile, oxygen saturation is 99% on 10 L nonrebreather mask, patient cannot take by mouth medicines are listed IV, will try morphine as needed DC Dilaudid, 04/04/2020, patient seen eval examined during the rounds labs reviewed medications reviewed care plan discussed, patient is awake now remains off of propofol since yesterday, does make intermittent eye contact, remains slightly withdrawn however, respiratory status stable, remains on assist control mode rate of 24, tidal volume is 450, +5 of PEEP, 40% oxygen, peak airway pressure stable, chest x-ray shows bilateral diffuse interstitial infiltrate stable ET tube and NG tube in PICC line, white cell count is 13,400, hemoglobin and hematocrit stable 9.4 and 31, arterial blood gases reviewed pH is 7.4 to pCO2 32 pO2 64, BUN/creatinine is 32 and 0.5, patient is reviewed Lovenox remains 2040 mg subcu twice a day on IV furosemide, Solu-Medrol is 60 mg IV every 6 we'll decrease it to every 12 04/03/2020, patient seen eval examined during rounds labs reviewed medications reviewed, care plan discussed, overall hemodynamically he remains stable blood pressure spiked up on hydralazine when necessary, seems to be helping, patient sedated with propofol drip 50 mics, attempts for weaning of protocol has been unsuccessful as patient becomes agitated, attempted Precedex drip has been unsuccessful as well, current vent settings include assist control rate of 24 breathing 24, FiO2 is 40%, PEEP is 5, tidal volume is 450, chest x-ray stable ET tube with bilateral multifocal infiltrate with consolidation consistent with cold with 19 pneumonia not essentially much change from the prior x-ray, ET tube and NG tube was stable, patient is getting tube feed bolus feeding, labs including ABG chemistry reviewed 04/02/2020, patient seen eval examined during the rounds labs reviewed medications reviewed care plan discussed, patient remains sedated with propofol on ventilator for full ventilator support, currently patient is on assist control mode rate Tuesday for breathing 24, tidal volume is 450, 5 of PEEP, 40% oxygen, propofol is 50 mics, chest x-ray from today reviewed continue show patchy bilateral infiltrate without any significant interval change, arterial b lood gases revealed pH of 7.43 pCO2 32, C-reactive protein is down to 21, BUN/creatinine is 34/.49, white cell count and hemoglobin remained stable, medications reviewed, she remains on broad-spectrum antibiotic with cephapirin, Lovenox, gentle diuresis with Lasix, blood pressure control with IV hydralazine, patient remains on high-dose IV steroids, discussed with the staff at length, will stop the propofol drip and once patient is awake put on CPAP 5 pressure support of 5 gas after half an hour also check weaning parameters 04/01/2020, patient seen eval examined labs reviewed medications reviewed care plan discussed with the staff at length patient had a sedation holiday today she is arousable and awake follows simple commands with blood pressure went up becomes agitated anxious requiring a reinitiation of propofol drip, ventilator setting remains unchanged, patient is on rate of 24 tidal volume is 450, PEEP is 5, oxygen is 40%, chest x-ray from today reviewed remains overall stable with stable lines and tubes 03/31/2020, patient seen eval examined during the rounds labs reviewed medications reviewed care plan discussed, patient remains on full ventilator support, propofol was changed to Precedex but however patient becomes agitated so back on propofol when setting remains unchanged have been on assist control rate of 24, PEEP is 5, FiO2 is 40%, tidal volume of 450, care plan discussed with the staff at length critical care time 35 minutes 03/30/2020, patient seen eval examined during the rounds labs reviewed medications reviewed, remains sedated with propofol, current vent setting include his control rate of 24 breathing 24 tidal volume is 450, deep is 5 now, FiO2 is 40%, tolerating tube feed very well, chest x-ray reviewed slightly better but stable bilateral infiltrate consistent with atypical pneumonia, patient continued IVs very well with 20 mg Lasix daily, white cell count remained stable, with stable hemoglobin and however decreasing platelet count noted, dear blood gases revealed pH of 7.4 to pCO2 34 pO2 of 62, BUN/creatinine is 36 and 0.62, left he continue show downward trend, inflammatory markers reviewed still elevated but showing a downward trend 03/29/2020, patient seen eval examined during the rounds labs reviewed medications reviewed, care plan discussed with the nursing staff at length, patient has been on assist control rate of the 24 PEEP of 8 400 tidal volume 50% oxygen, ventilator has been adjusted with reduction in PEEP and oxygen, patient's saturation remained stable 91-92%, next step he is to stop propofol and reassess the mental status and if patient remains stable oxygen randolph and hemodynamics can do a CPAP pressure support trial in the meantime we'll continue IV steroids, antibiotics, CBC and ABG reviewed, today's chest x-ray showed bilateral interstitial infiltrate, predominantly at the bases, patient has been on Lasix 20 mg daily diuresing very well, critical care time 35 minutes 03/28/2020, patient seen eval examined during the rounds labs reviewed medications reviewed care plan discussed oxygen has been down to 40% now. The patient is PEEP of 8, otherwise ventilator setting remains stable, patient is scheduled for PICC line later on today, remains on propofol, remains on broad- spectrum antibiotics, labs from today has been reviewed hemoglobin is stable 7.9, d-dimer is 3.24, arterial blood gases stable pH is 7.41 pCO2 35 pO2 96, BUN/creatinine is 51 and 1.05, ferritin level remains more than 26,000, AST ALT continued decline however today is 367 and 558, C-reactive protein checked 69.5 her chest x-ray earlier than today remains there however appears to have slightly progressed 03/27/2020, patient seen eval examined during the rounds labs reviewed medications reviewed care plan discussed, propofol has been discontinued patient because very restless and anxious, we'll restart propofol, patient has been on full ventilator support assist control 24 tidal volume of 450, PEEP is 10, oxygen is 70%, arterial blood gases reviewed when lower the FiO2 to 60% now plan to bring down the FiO2 to 50% and PEEP of 8 next 24 hours, sputum and blood cultures reviewed no growth so far, chest x-ray performed today reviewed significant improvement in infiltrates seen bilaterally, patient has a poor urine output throughout the night, 20 mg of Lasix was given put out 600 mL of urine patient continued to be on gentle hydration, remain on cefapime and Vanco, Lovenox Solu-Medrol multivitamin and vitamin C zinc and Lovenox, white cell count is stable 10,500 hemoglobin and hematocrit 7.2 and 24, general surgery has been following patient is considered to get EGD and colonoscopy once stable, arterial blood gas revealed pH of 7.39 pCO2 of 39 pO2 of 124, bicarb 25, liver enzymes continue to come down AST and ALT now is 944/809, hepatitis panel normal and nonreactive 03/26/2020, patient seen eval examined in the ICU care plan discussed with the staff, FiO2 has been down to 60%, patient remains on assist control tidal volume of 450, PEEP is 10, respiratory rate is 24 breathing with the respirator pH has been improved significantly, patient is making adequate urine chest x-ray compared with yesterday's x-ray some improvement have been noted, white cell count is 11,000, hemoglobin 7.9 which is stable, arterial blood gas improved to 7.39, pCO2 of 40, pO2 112, BUN/creatinine is 33/0.96, lactic acid was 5.9 down to 1.3 now, ferritin level noted to be 12,800, AST and ALT are 4014 100 with LDH over 21,500, today LFTs significantly improved AST is down to 2795 and ALT is 1222, pro calcitonin is 0.84, suspect some component of heart failure as well as pneumonia, will get an echocardiogram as well as start patient on broad-spectrum antibiotics with cefepime and Vanco Patient seen and evaluated examined in the emergency department, patient came into the ER from the office of Dr. Aleman due to progressive shortness of breath, patient has acute on chronic hypoxic respiratory failure on 4 L oxygen, also has issues associated with pneumonia presumed to be cold with 19, however, testing was negative, patient used to smoke in the remote past quit about 20-30 years ago due to severity or shortness of breath and hypoxia with saturation of 76% on 100% oxygen and respiratory distress patient was intubated due to poor tolerance on BiPAP, patient Covid testing came back positive, chest x-ray s howing diffuse infiltrate she also has been noted to have elevated liver enzymes due to elevated liver enzymes will not start IV REMdesivir, Initial ABG pH is 7.18, pCO2 is 63 pO2 was only 33 Objective - Vital Signs Vital signs: Vital Signs Temp 97.6 F 04/23/20 04:51 Pulse 80 04/23/20 04:51 Resp 20 04/23/20 04:51 BP 100/60 04/23/20 04:51 Pulse Ox 98 04/23/20 06:33 Intake & Output 04/22/20 04/23/20 04/23/20 18:59 06:59 18:59 Intake Total 600 Output Total 400 400 Balance -400 200 Weight 72 kg Intake: IV 600 Sodium Chloride 0.9% 1, 600 000 ml @ 50 mls/hr IV . Q20H [facility] Rx#:[id number] Output: Urine 400 400 Other: Voiding Method Indwelling Catheter Indwelling Catheter - Exam Patient on 80% oxygen 15 L aerosolized saturation is 90% to 92% - Constitutional General appearance: average body habitus, mild distress, restless intermittently agitated - EENT Ears: bilateral: normal - Neck Carotids: bilateral: upstroke normal Thyroid: bilateral: normal size - Respiratory Respiratory: bilateral: diminished - Cardiovascular Rhythm: regular Heart sounds: normal: S1, S2 - Gastrointestinal General gastrointestinal: normal bowel sounds Patient is relatively more awake and alert compared to yesterday exam - Labs CBC & Chem 7: 04/23/20 05:30 04/22/20 05:53 Labs: Abnormal Lab Results - Last 24 Hours (Table) 04/22/20 04/22/20 04/22/20 Range/Units 12:11 16:59 20:03 RBC (3.80-5.40) m/uL Hgb (11.4-16.0) gm/dL Hct (34.0-46.0) % RDW (11.5-15.5) % POC Glucose (mg/dL) 255 H 138 H 174 H (75-99) mg/dL 04/23/20 04/23/20 Range/Units 05:30 06:59 RBC 2.97 L (3.80-5.40) m/uL Hgb 8.6 L (11.4-16.0) gm/dL Hct 26.4 L (34.0-46.0) % RDW 17.6 H (11.5-15.5) % POC Glucose (mg/dL) 229 H (75-99) mg/dL Assessment and Plan Assessment: Hyponatremia Generalized weakness and medical debility Gram-positive bacteremia and VRE has been noted in urine blood on daptomycin Agitated delirium along with metabolic encephalopathy likely multifactorial including Covid 19 pneumonia, is being in ICU, for intubation long period time sepsis, slowly improving Acute hypoxic respiratory failure Covid19 pneumonia Thrombocytopenia stable Acute hepatitis/elevated liver enzymes Acute diastolic heart failure Chronic anemia Fibromyalgia Hypertension hypertensive cardiovascular disease Plan: Continue supportive care, oxygen taper as tolerated Continue daptomycin IV steroids, taper as tolerated Further recommendations pending plan of care as per clinical response of patient Continue anticoagulation with Lovenox PT OT evaluation Monitor labs and sodium closely Time with Patient: Greater than 30
[2020-04-23 11:08] LABS: Glucose,Whole Blood 216 mg/dL (75-99)
[2020-04-23 11:10] LABS: Albumin/Globulin Ratio 1.58 (1.60-3.17); Anion Gap 8.7 mmol/L (4.00-12.00); Calcium 7.6 mg/dL (8.7-10.3); Carbon Dioxide 19.3 mmol/L (21.6-31.8); Globulin 1.9 g/dL (1.6-3.3); Potassium 4.5 mmol/L (3.5-5.5); Total Bilirubin 0.2 mg/dL (0.2-1.2); Total Protein 4.9 g/dL (6.2-8.2)
[2020-04-23 11:52] LABS: African American GFR (CKD) 101.7 (60.0-200.0); Non-African American GFR(CKD) 87.8 (60.0-200.0)
--- NOTE | 2020-04-23 14:04 | P.GSCN ---
History of Present Illness Consult date: 04/23/20 History of present illness: Reason for consult: Anemia HISTORY OF PRESENT ILLNESS: This is a 69-year-old female with history of GI bleed, chronic anemia with iron deficiency and gastric ulcer about 5 years ago. Patient has had prolonged hospitalization with respiratory failure due to Covid 19 infection. Patient had been intubated and requiring mechanical ventilation and ICU care. Patient was successfully extubated on 04/04/2020. Her oxygen saturation continued to improve slowly. She is now on 5 L satting at 93%. She is currently on a regular medical floor. Patient has been having ongoing issues with anemia and possible GI bleed. It was recommended that patient have upper and lower endoscopies when she is stable. There had been no evidence of any further GI bleeding. Therefore we had signed off. Surgical service was re- consulted due to patient's anemia. Her hemoglobin is 8.6 which is down from 11 two days ago. She has no signs of active bleeding at this time. Patient is still very weak and requiring oxygen. She is also being treated for en terococcus and VRE UTI and enterococcus faecalis bacteremia. She is afebrile. PAST MEDICAL HISTORY: See list. PAST SURGICAL HISTORY: See list. MEDICATIONS: See list. ALLERGIES: See list. SOCIAL HISTORY: No illicit drug use. REVIEW OF SYSTEMS: CONSTITUTIONAL: Denies fever or chills. HEENT: Denies blurred vision, vision changes, or eye pain. Denies hemoptysis CARDIOVASCULAR: Denies chest pain or pressure. RESPIRATORY: No shortness of breath. GASTROINTESTINAL: See HPI for pertinent findings HEMATOLOGIC: Denies bleeding disorders. GENITOURINARY: Denies any blood in urine or increased urinary frequency. SKIN: Denies pruitis. Denies rash. PHYSICAL EXAM: VITAL SIGNS: Reviewed GENERAL: Well-developed in no acute distress. HEENT: No sclera icterus. Extraocular movements grossly intact. Moist buccal mucosa. Head is atraumatic, normocephalic. No nasal drainage. ABDOMEN: Soft nontender nondistended NEUROLOGIC: Alert and oriented. Cranial nerves II through XII grossly intact. LABORATORY DATA: WBC 8.8 hemoglobin 8.6 sodium 127 potassium 4.5 creatinine 0.7 Total bili 0.2 AST 46 ALT 61 alk phos 70 albumin 3.00 IMAGING: ASSESSMENT: 1. Acute on chronic blood loss anemia due to possible GI source. Patient currently not having any active bleeding. 3. Elevated liver enzymes with large gallstone present on abdominal ultrasound. LFTs are trending down 4. Acute hypoxic respiratory failure due to COVID 19 infection requiring to be intubated. Patient was successfully extubated on 04/04/2020 PLAN: -No plan for endoscopies at this time. -Recommend upper and lower endoscopy when patient is more stable -Continue to monitor patient's hemoglobin -Continue to monitor for active bleeding -Continue Protonix -Continue supportive care Thank you for this consultation Physician Color Television Console Monitor note has been reviewed by physician. Signing provider agrees with the documented findings, assessment, and plan of care. Past Medical History Past Medical History: Hypertension, Thyroid Disorder Additional Past Medical History / Comment(s): chronic ANEMIA- pt gets iron trans. every 8-12 weeks for over 12 years. 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 MDRO Source:: Urine Past Surgical History: Hysterectomy, Joint Replacement, Orthopedic Surgery Additional Past Surgical History / Comment(s): LEFT KNEE ARTHROSCOPIC, carpal tunnel, left knee replacement, laser eye surgery Past Anesthesia/Blood Transfusion Reactions: No Reported Reaction Smoking Status: Former smoker - Past Family History Mother Family Medical History: No Reported History Medications and Allergies Home Medications Medication Instructions Recorded Confirmed Type Sertraline [Zoloft] 150 mg PO DAILY 08/23/14 03/25/20 History lisinopriL [Zestril] 10 mg PO DAILY 08/12/16 03/25/20 History Amitriptyline HCl [Elavil] 50 mg PO HS 03/10/20 03/25/20 History Cyclobenzaprine [Flexeril] 10 mg PO TID PRN 03/10/20 03/25/20 History Levothyroxine Sodium 200 mcg PO DAILY 03/10/20 03/25/20 History Sennosides [Senna] 17.2 mg PO HS PRN 03/10/20 03/25/20 History amLODIPine [Norvasc] 5 mg PO DAILY 03/10/20 03/25/20 History rOPINIRole HCL [Requip] 1 mg PO TID 03/10/20 03/25/20 History Omeprazole [PriLOSEC] 20 mg PO -BRKFST #90 cap 03/11/20 03/25/20 Rx Aspirin 81 mg PO BID 17 Days #34 chewable 03/12/20 03/25/20 Rx Azithromycin [Zithromax] 500 mg PO DAILY #3 tab 03/19/20 03/25/20 Rx Ferrous Sulfate [Iron (65 MG 325 mg PO BID-W/MEALS #60 tab 03/19/20 03/25/20 Rx Elemental)] guaiFENesin-DM 100-10MG/5ML 10 ml PO Q6H PRN #200 ml 03/19/20 03/25/20 Rx [Robitussin DM] Allergies Allergy/AdvReac Type Severity Reaction Status Date / Time meperidine HCl [From Demerol] Allergy Rash/Hives Verified 03/25/20 11:11 Penicillins Allergy Rash/Hives Verified 03/25/20 11:11 Sulfa (Sulfonamide Allergy Rash/Hives Verified 03/25/20 11:11 Antibiotics) Surgical - Exam Vital Signs Temp Pulse Resp BP Pulse Ox 98.6 F 83 24 126/79 76 L 03/25/20 10:40 03/25/20 10:40 03/25/20 10:40 03/25/20 10:40 03/25/20 10:40 Results - Labs 04/23/20 05:30 04/23/20 05:32 Abnormal Lab Results - Last 24 Hours (Table) 04/22/20 04/22/20 04/23/20 Range/Units 16:59 20:03 05:30 RBC 2.97 L (3.80-5.40) m/uL Hgb 8.6 L (11.4-16.0) gm/dL Hct 26.4 L (34.0-46.0) % RDW 17.6 H (11.5-15.5) % Sodium (135-145) mmol/L Carbon Dioxide (21.6-31.8) mmol/L BUN/Creatinine Ratio (12.00-20.00) Ratio Glucose (70-110) mg/dL POC Glucose (mg/dL) 138 H 174 H (75-99) mg/dL Calcium (8.7-10.3) mg/dL AST (13-35) U/L ALT (8-44) U/L Total Protein (6.2-8.2) g/dL Albumin (3.80-4.90) g/dL Albumin/Globulin Ratio (1.60-3.17) g/dL 04/23/20 04/23/20 04/23/20 Range/Units 05:32 06:59 11:03 RBC (3.80-5.40) m/uL Hgb (11.4-16.0) gm/dL Hct (34.0-46.0) % RDW (11.5-15.5) % Sodium 127 L (135-145) mmol/L Carbon Dioxide 19.3 L (21.6-31.8) mmol/L BUN/Creatinine Ratio 30.00 H (12.00-20.00) Ratio Glucose 229 H (70-110) mg/dL POC Glucose (mg/dL) 229 H 216 H (75-99) mg/dL Calcium 7.6 L (8.7-10.3) mg/dL AST 40 H (13-35) U/L ALT 61 H (8-44) U/L Total Protein 4.9 L (6.2-8.2) g/dL Albumin 3.00 L (3.80-4.90) g/dL Albumin/Globulin Ratio 1.58 L (1.60-3.17) g/dL Diabetes panel 04/23/20 Range/Units 05:32 Sodium 127 L (135-145) mmol/L Potassium 4.5 (3.5-5.5) mmol/L Chloride 99 (96-109) mmol/L Carbon Dioxide 19.3 L (21.6-31.8) mmol/L BUN 21.0 (9.0-27.0) mg/dL Creatinine 0.7 (0.6-1.5) mg/dL Glucose 229 H (70-110) mg/dL Calcium 7.6 L (8.7-10.3) mg/dL AST 40 H (13-35) U/L ALT 61 H (8-44) U/L Alkaline Phosphatase 70 (41-126) U/L Total Protein 4.9 L (6.2-8.2) g/dL Albumin 3.00 L (3.80-4.90) g/dL Calcium panel 04/23/20 Range/Units 05:32 Calcium 7.6 L (8.7-10.3) mg/dL Albumin 3.00 L (3.80-4.90) g/dL Pituitary panel 04/23/20 Range/Units 05:32 Sodium 127 L (135-145) mmol/L Potassium 4.5 (3.5-5.5) mmol/L Chloride 99 (96-109) mmol/L Carbon Dioxide 19.3 L (21.6-31.8) mmol/L BUN 21.0 (9.0-27.0) mg/dL Creatinine 0.7 (0.6-1.5) mg/dL Glucose 229 H (70-110) mg/dL Calcium 7.6 L (8.7-10.3) mg/dL Adrenal panel 04/23/20 Range/Units 05:32 Sodium 127 L (135-145) mmol/L Potassium 4.5 (3.5-5.5) mmol/L Chloride 99 (96-109) mmol/L Carbon Dioxide 19.3 L (21.6-31.8) mmol/L BUN 21.0 (9.0-27.0) mg/dL Creatinine 0.7 (0.6-1.5) mg/dL Glucose 229 H (70-110) mg/dL Calcium 7.6 L (8.7-10.3) mg/dL Total Bilirubin 0.2 (0.2-1.2) mg/dL AST 40 H (13-35) U/L ALT 61 H (8-44) U/L Alkaline Phosphatase 70 (41-126) U/L Total Protein 4.9 L (6.2-8.2) g/dL Albumin 3.00 L (3.80-4.90) g/dL
[2020-04-23 16:56] LABS: Glucose,Whole Blood 175 mg/dL (75-99)
--- NOTE | 2020-04-23 17:32 | P.PN ---
Subjective Principal diagnosis: Respiratory failure related Covid pneumonia.. Otherwise appreciate multiple consultants input. The patient is now on a general medical floor lucid and recovering appropriately. She still needing quite a bit of oxygen support but is improving. She has had a slight drop in hemoglobin which is not unusual for her. We will go and ask Dr. Miguel to see the patient for evaluation colonoscopy. Objective - Vital Signs Vital signs: Vital Signs Temp 98.2 F 04/23/20 17:00 Pulse 76 04/23/20 17:00 Resp 17 04/23/20 17:00 BP 116/69 04/23/20 17:00 Pulse Ox 91 L 04/23/20 17:00 Intake & Output 04/22/20 04/23/20 04/23/20 18:59 06:59 18:59 Intake Total 600 Output Total 400 400 Balance -400 200 Weight 72 kg Intake: IV 600 Sodium Chloride 0.9% 1, 600 000 ml @ 50 mls/hr IV . Q20H [facility] Rx#:[id number] Output: Urine 400 400 Other: Voiding Method Indwelling Catheter Indwelling Catheter Indwelling Catheter - Constitutional General appearance: Present: average body habitus - EENT Eyes: Absent: abnormal pupil - Respiratory Respiratory: bilateral: diminished - Cardiovascular Rhythm: regular Heart sounds: normal: S1, S2 Abnormal Heart Sounds: Absent: S3 Gallop - Gastrointestinal General gastrointestinal: Present: soft. Absent: tenderness - Integumentary Integumentary: Present: normal - Psychiatric Psychiatric: Present: A&O x's 3, appropriate affect, intact judgment & insight - Labs CBC & Chem 7: 04/23/20 05:30 04/23/20 05:32 Labs: Abnormal Lab Results - Last 24 Hours (Table) 04/22/20 04/23/20 04/23/20 Range/Units 20:03 05:30 05:32 RBC 2.97 L (3.80-5.40) m/uL Hgb 8.6 L (11.4-16.0) gm/dL Hct 26.4 L (34.0-46.0) % RDW 17.6 H (11.5-15.5) % Sodium 127 L (135-145) mmol/L Carbon Dioxide 19.3 L (21.6-31.8) mmol/L BUN/Creatinine Ratio 30.00 H (12.00-20.00) Ratio Glucose 229 H (70-110) mg/dL POC Glucose (mg/dL) 174 H (75-99) mg/dL Calcium 7.6 L (8.7-10.3) mg/dL AST 40 H (13-35) U/L ALT 61 H (8-44) U/L Total Protein 4.9 L (6.2-8.2) g/dL Albumin 3.00 L (3.80-4.90) g/dL Albumin/Globulin Ratio 1.58 L (1.60-3.17) g/dL 04/23/20 04/23/20 04/23/20 Range/Units 06:59 11:03 16:55 RBC (3.80-5.40) m/uL Hgb (11.4-16.0) gm/dL Hct (34.0-46.0) % RDW (11.5-15.5) % Sodium (135-145) mmol/L Carbon Dioxide (21.6-31.8) mmol/L BUN/Creatinine Ratio (12.00-20.00) Ratio Glucose (70-110) mg/dL POC Glucose (mg/dL) 229 H 216 H 175 H (75-99) mg/dL Calcium (8.7-10.3) mg/dL AST (13-35) U/L ALT (8-44) U/L Total Protein (6.2-8.2) g/dL Albumin (3.80-4.90) g/dL Albumin/Globulin Ratio (1.60-3.17) g/dL Assessment and Plan (1) Acute respiratory distress syndrome Current Visit: Yes Status: Acute Code(s): J80 - ACUTE RESPIRATORY DISTRESS SYNDROME SNOMED Code(s): 26974914 (2) Anemia Current Visit: Yes Status: Acute Code(s): D64.9 - ANEMIA, UNSPECIFIED SNOMED Code(s): 800332718 (3) COVID-19 Current Visit: Yes Status: Acute Code(s): U07.1 - COVID-19 SNOMED Code(s): 891974481 (4) Pneumonia Current Visit: Yes Status: Acute Code(s): J18.9 - PNEUMONIA, UNSPECIFIED ORGANISM SNOMED Code(s): 621397437 (5) Fibromyalgia Current Visit: No Status: Acute Code(s): M79.7 - FIBROMYALGIA SNOMED Code(s): 596267135 Plan: Appropriate supportive care. Prognosis still Guarded due to her Covid 19. We'll continue to follow with consultants. Check CBC and CMP in a.m. Increase ambulation as possible.. Consult general surgery for anemia Time with Patient: Greater than 30
[2020-04-23 20:07] LABS: Glucose,Whole Blood 135 mg/dL (75-99)
[2020-04-23] MEDS: AMITRIPTYLINE HCL 50 MG TAB PO SCH (21:25)
[2020-04-23] MEDS: FLUCONAZOLE 100 MG TAB PO SCH (21:26)
[2020-04-23] MEDS: DAPTOmycin 500 MG in SODIUM CHLORIDE 0.9% 50 ML IVPB SCH (22:16)
--- NOTE | 2020-04-23 23:08 | PN ---
PROGRESS NOTE DATE OF SERVICE: 04/23/2020 REASON FOR FOLLOWUP: Enterococcus faecalis bacteremia and VRE UTI. INTERVAL HISTORY: The patient is currently afebrile. The patient is breathing comfortably. The patient denies having any chest pain or shortness of breath. Occasional cough. No abdominal pain or diarrhea. PHYSICAL EXAMINATION: Blood pressure 138/69, pulse of 73, temperature 98.2. She is 91% on 3 L nasal cannula. General description is an elderly female up in the bed in no distress. RESPIRATORY SYSTEM: Unlabored breathing with decreased intensity of breath sounds. No wheeze. HEART: S1, S2. Regular rate and rhythm. ABDOMEN: Soft. No tenderness. LABS: Hemoglobin is 8.3, white count 8.9, BUN of 21, creatinine 0.7. DIAGNOSTIC IMPRESSION AND PLAN: Patient with Enterococcus faecalis bacteremia and vancomycin-resistant Enterococcus urinary tract infection. The patient is covered with daptomycin. She received adequate antibiotic therapy and it can be safely discontinued on discharge and monitor clinical course closely. MMODL / IJN: [id number] /
[2020-04-24] MEDS: HYDROmorphone 1 MG/ML 1 ML SYRINGE IVP PRN ×2 (06:43→20:25)
[2020-04-24 06:57] LABS: Glucose,Whole Blood 135 mg/dL (75-99)
[2020-04-24 07:33] LABS: Anisocytosis Slight; HCT 22.3 % (34.0-46.0); HGB 7.4 gm/dL (11.4-16.0); Hypochromasia Slight; MCH 28.6 pg (25.0-35.0); MCHC 33.2 g/dL (31.0-37.0); Platelet Count 183 k/uL (150-450); Poikilocytosis Slight; RBC 2.59 m/uL (3.80-5.40); RDW 18.1 % (11.5-15.5); WBC 7.2 k/uL (3.8-10.6)
[2020-04-24 08:10] LABS: ALT 59 U/L (4-34); AST 43 U/L (14-36); African American GFR (CKD) >90 (>60 ml/min/1.73 sqM); Albumin 2.5 g/dL (3.5-5.0); Alkaline Phosphatase 66 U/L (38-126); Anion Gap 3 mmol/L; Blood Urea Nitrogen 19 mg/dL (7-17); Calcium 7.5 mg/dL (8.4-10.2); Carbon Dioxide 23 mmol/L (22-30); Chloride 101 mmol/L (98-107); Globulin 2.5 g/dL; Glucose 127 mg/dL (74-99); Non-African American GFR(CKD) >90 (>60 ml/min/1.73 sqM); Potassium 3.5 mmol/L (3.5-5.1); Sodium 127 mmol/L (137-145); Total Bilirubin 0.4 mg/dL (0.2-1.3)
[2020-04-24] MEDS: ENOXAPARIN 40 MG/0.4 ML SYRINGE SQ SCH (08:19)
[2020-04-24] MEDS: methylPREDNISolone SOD SUCCI 40 MG/ML 1 ML VIAL IV SCH (08:20)
[2020-04-24] MEDS: PANTOPRAZOLE 40 MG TABLET PO SCH ×2 (08:20→20:15)
[2020-04-24] MEDS: SERTRALINE 100 MG TAB PO SCH (08:20)
[2020-04-24] MEDS: ZINC SULFATE 220 MG CAP PO SCH (08:21)
[2020-04-24] MEDS: hydrALAZINE HCL 25 MG TAB PO SCH ×3 (08:21→21:48)
[2020-04-24] MEDS: amLODIPine 5 MG TAB PO SCH ×2 (08:21→20:15)
[2020-04-24] MEDS: ASCORBIC ACID 500 MG TAB PO SCH ×2 (08:21→20:15)
[2020-04-24] MEDS: INSULIN ASPART (NovoLOG) 100 UNIT/ML VIAL SQ SCH ×4 (08:21→20:15)
[2020-04-24] MEDS: SENNOSIDES 8.6 MG TAB PO PRN ×2 (08:35→20:15)
[2020-04-24] MEDS: CHOLECALCIFEROL 400 UNIT TAB PO SCH (10:17)
[2020-04-24] MEDS: SODIUM CHLORIDE 0.9% 1,000 ML IV SCH ×2 (10:18→23:09)
[2020-04-24 11:14] LABS: Glucose,Whole Blood 163 mg/dL (75-99)
--- NOTE | 2020-04-24 12:48 | P.PN ---
Subjective Progress Note Date: 04/24/20 HISTORY OF PRESENT ILLNESS This is a 69-year-old female patient treated for enterococcus VRE UTI and Enter ococcus faecalis bacteremia. Patient remains afebrile, heart rate 62, blood pressure 91/57, pulse ox 100% on 8 L high flow nasal cannula. She is currently on daptomycin which will be continued and she will not require antibiotics at the time of discharge as she completed her course. Patient denies having any cough, shortness of breath. No chest pain. No nausea vomiting and diarrhea. She denies any abdominal pain. No fever or chills. WBC 7.2, hemoglobin 7.4. Creatinine 0.55. AST 43, ALT 59, alkaline phosphatase 66. PHYSICAL EXAMINATION Gen: This is a 69-year-old female. She is resting in bed appears to be comfortable. HEENT: Head is atraumatic, normocephalic. Pupils equal, round. Sclerae is anicteric. NECK: Supple. No JVD. No lymphadenopathy. LUNGS: Decreased breath sounds at the bases. No intercostal retractions. HEART: Regular rate and rhythm. No murmur. ABDOMEN: Soft. Bowel sounds are present. No masses. No tenderness. EXTREMITIES: No pedal edema. No calf tenderness. NEUROLOGICAL: Patient is awake, alert and oriented x3. ASSESSMENT Enterococcus and VRE UTI Enterococcus faecalis bacteremia PLAN Continue daptomycin No antibiotics necessary at the time of discharge as patient has completed course Continue supportive care The above dictated assessment and findings were discussed with Dr. Blackburn. The impression and plan of care have been directed as dictated. Naiam Rascon nurse practitioner acting as scribe for Dr. Blackburn. Objective - Vital Signs Vital signs: Vital Signs Temp 97.4 F L 04/24/20 04:56 Pulse 68 04/24/20 04:56 Resp 16 04/24/20 04:56 BP 112/65 04/24/20 04:56 Pulse Ox 92 L 04/24/20 04:56 Intake & Output 04/23/20 04/24/20 04/24/20 18:59 06:59 18:59 Output Total 700 Balance -700 Weight 72.5 kg Output: Urine 700 Uretheral (Quick) 700 Other: Voiding Method Indwelling Catheter Indwelling Catheter # Voids 700 - Labs CBC & Chem 7: 04/24/20 06:48 04/24/20 06:48 Labs: Abnormal Lab Results - Last 24 Hours (Table) 04/23/20 04/23/20 04/23/20 Range/Units 05:32 11:03 16:55 RBC (3.80-5.40) m/uL Hgb (11.4-16.0) gm/dL Hct (34.0-46.0) % RDW (11.5-15.5) % Sodium 127 L (135-145) mmol/L Carbon Dioxide 19.3 L (21.6-31.8) mmol/L BUN (7-17) mg/dL BUN/Creatinine Ratio 30.00 H (12.00-20.00) Ratio Glucose 229 H (70-110) mg/dL POC Glucose (mg/dL) 216 H 175 H (75-99) mg/dL Calcium 7.6 L (8.7-10.3) mg/dL AST 40 H (13-35) U/L ALT 61 H (8-44) U/L Total Protein 4.9 L (6.2-8.2) g/dL Albumin 3.00 L (3.80-4.90) g/dL Albumin/Globulin Ratio 1.58 L (1.60-3.17) g/dL 04/23/20 04/24/20 04/24/20 Range/Units 20:06 06:48 06:48 RBC 2.59 L (3.80-5.40) m/uL Hgb 7.4 L (11.4-16.0) gm/dL Hct 22.3 L (34.0-46.0) % RDW 18.1 H (11.5-15.5) % Sodium 127 L (135-145) mmol/L Carbon Dioxide (21.6-31.8) mmol/L BUN 19 H (7-17) mg/dL BUN/Creatinine Ratio (12.00-20.00) Ratio Glucose 127 H (70-110) mg/dL POC Glucose (mg/dL) 135 H (75-99) mg/dL Calcium 7.5 L (8.7-10.3) mg/dL AST 43 H (13-35) U/L ALT 59 H (8-44) U/L Total Protein 5.0 L (6.2-8.2) g/dL Albumin 2.5 L (3.80-4.90) g/dL Albumin/Globulin Ratio (1.60-3.17) g/dL 04/24/20 Range/Units 06:55 RBC (3.80-5.40) m/uL Hgb (11.4-16.0) gm/dL Hct (34.0-46.0) % RDW (11.5-15.5) % Sodium (135-145) mmol/L Carbon Dioxide (21.6-31.8) mmol/L BUN (7-17) mg/dL BUN/Creatinine Ratio (12.00-20.00) Ratio Glucose (70-110) mg/dL POC Glucose (mg/dL) 135 H (75-99) mg/dL Calcium (8.7-10.3) mg/dL AST (13-35) U/L ALT (8-44) U/L Total Protein (6.2-8.2) g/dL Albumin (3.80-4.90) g/dL Albumin/Globulin Ratio (1.60-3.17) g/dL
--- NOTE | 2020-04-24 14:09 | P.PN ---
Subjective Progress Note Date: 04/24/20 CHIEF COMPLAINT: GI bleed HISTORY OF PRESENT ILLNESS: Patient has had prolonged hospitalization with resp iratory failure due to Covid 19 infection. She also has enterococcus and VRE UTI and enterococcus bacteremia. Surgical service is following for patient's GI bleed and anemia. Patient has had no active bleeding. Her hemoglobin continues to trend downwards. Hemoglobin is 7.4 today. It is noted that she is on Lovenox for DVT prophylaxis. This will be decreased to once a day. She is afebrile. PHYSICAL EXAM: VITAL SIGNS: Reviewed. GENERAL: Well-developed in no acute distress. HEENT: No sclera icterus. Extraocular movements grossly intact. Moist buccal mucosa. Head is atraumatic, normocephalic. ABDOMEN: Soft. Nondistended. Nontender. NEUROLOGIC: Alert and orientated. Cranial nerves II through XII grossly intact ASSESSMENT: 1. Acute on chronic blood loss anemia due to possible GI source. Patient currently not having any active bleeding. 3. Elevated liver enzymes with large gallstone present on abdominal ultrasound. LFTs are trending down 4. Acute hypoxic respiratory failure due to COVID 19 infection requiring to be intubated. Patient was successfully extubated on 04/04/2020 Plan: -Decreased Lovenox from 40 mg twice a day to once a day due to continuous decrease in hemoglobin -Recommend upper and lower endoscopy when patient is more stable -Continue to monitor patient's hemoglobin -Continue to monitor for active bleeding -Continue Protonix -Continue supportive care Physician Event Organizer note has been reviewed by physician. Signing provider agrees with the documented findings, assessment, and plan of care. Objective - Vital Signs Vital signs: Vital Signs Temp 97.3 F L 04/24/20 10:25 Pulse 62 04/24/20 10:25 Resp 18 04/24/20 10:25 BP 91/57 04/24/20 10:25 Pulse Ox 100 04/24/20 10:25 Intake & Output 04/23/20 04/24/20 04/24/20 18:59 06:59 18:59 Output Total 700 Balance -700 Weight 72.5 kg Output: Urine 700 Uretheral (Quick) 700 Other: Voiding Method Indwelling Catheter Indwelling Catheter Indwelling Catheter # Voids 700 - Labs CBC & Chem 7: 04/24/20 06:48 04/24/20 06:48 Labs: Abnormal Lab Results - Last 24 Hours (Table) 04/23/20 04/23/20 04/24/20 Range/Units 16:55 20:06 06:48 RBC 2.59 L (3.80-5.40) m/uL Hgb 7.4 L (11.4-16.0) gm/dL Hct 22.3 L (34.0-46.0) % RDW 18.1 H (11.5-15.5) % Sodium (137-145) mmol/L BUN (7-17) mg/dL Glucose (74-99) mg/dL POC Glucose (mg/dL) 175 H 135 H (75-99) mg/dL Calcium (8.4-10.2) mg/dL AST (14-36) U/L ALT (4-34) U/L Total Protein (6.3-8.2) g/dL Albumin (3.5-5.0) g/dL 04/24/20 04/24/20 04/24/20 Range/Units 06:48 06:55 11:07 RBC (3.80-5.40) m/uL Hgb (11.4-16.0) gm/dL Hct (34.0-46.0) % RDW (11.5-15.5) % Sodium 127 L (137-145) mmol/L BUN 19 H (7-17) mg/dL Glucose 127 H (74-99) mg/dL POC Glucose (mg/dL) 135 H 163 H (75-99) mg/dL Calcium 7.5 L (8.4-10.2) mg/dL AST 43 H (14-36) U/L ALT 59 H (4-34) U/L Total Protein 5.0 L (6.3-8.2) g/dL Albumin 2.5 L (3.5-5.0) g/dL
--- NOTE | 2020-04-24 16:40 | P.PN ---
Subjective Progress Note Date: 04/24/20 Principal diagnosis: Acute hypoxic respiratory failure Covid19 pneumonia Acute respiratory and metabolic acidosis Acute hepatitis/elevated liver enzymes Acute diastolic heart failure and fluid overload Chronic anemia Fibromyalgia Hypertension hypertensive cardiovascular disease 04/24/2020, patient seen eval examined during the rounds labs reviewed medications reviewed care plan discussed, respiratory status remains marginal now patient requires 8 L as he was noted to have significant dysphagia and desaturation during physical therapy into 70s, she is been settling down her sats most recent 9394% now 04/23/2020, patient seen eval examined labs reviewed medications reviewed care plan discussed, respiratory status remains stable, patient is now on 4 L sitting upright on the chair finished her breakfast appears very well awake and alert continue supportive care oxygen saturation is now 98% 04/22/2020, patient seen eval examined during the rounds labs reviewed medications reviewed care plan discussed, respiratory status continued to be stable currently patient over a liter oxygen sitting upright on the bed breathing comfortably, oxygen demand however continued to be high, oxygen saturation 95-88%, 04/21/2020, patient seen eval examined, slightly more short of breath appetite poor did not consume more than one fourth of tray, remains very weak, oxygen r equirement increased to 8 L, somnolent but arousable, will decrease his steroid to once a day 04/20/2020, patient continued do well, oxygen is down to 6 L now from 7 L, patient appetite and mental status continued to improve will continue current plan of care 04/19/2020, patient seen eval examined during the rounds labs reviewed medications reviewed, patient is now down to 8 L from 10 L, saturation is mid 90s, respiratory status stable, we'll continue titrated oxygen down as tolerated slowly 2-3 L in 24 hours as tolerated 04/18/2020, patient seen eval examined during the rounds labs reviewed medications reviewed respiratory status remains stable denies any chest pain, patient remains on high flow oxygen, saturation well, discussed was titrated down as tolerated, labs reviewed medications reviewed, currently patient is on 10 L 45% airvo 04/17/2020, patient seen eval examined more awake and alert breathing comfortably no obvious distress is present, oxygen being titrated down off of high flow and airvo, on 15 L high flow saturating low to mid 80s and dropped down some back on aerosolized oxygen, mental status more clear tolerating by mouth well extremely weak continued PT OT and supportive care 04/16/2020, patient seen eval examined during the rounds respiratory status continued to improve so as the mental status however is still on high flow air VO oxygen 04/15/2020, patient seen eval examined during the rounds labs reviewed medications reviewed care plan discussed, patient remains on high flow oxygen 15 L 70% oxygen saturation remains marginal low 90s to high 80s previously today noted to be 94%, patient has been tolerating by mouth well, has been moved down from the ICU labs from today reviewed slight hyponatremia noted otherwise fairly within normal limit patient remains on Lovenox along with daptomycin fluconazole, IV steroids, patient has finished usual therapy for covid19 pneumonia 04/14/2020, patient remains on 50% oxygen 70L, awake slightly confused, s hortness of breath is not obvious hemodynamic status stable tolerating by mouth well patient will be moved out of the ICU when bed available 04/13/2020, patient seen eval examined during the rounds labs reviewed medications reviewed care plan discussed with the staff, respiratory status remains stable continued to be on the 75% oxygen 15 L high flow, remains afebrile remains on antibiotics patient will be transferred to [facility] with remote telemetry date on today 04/12/2020, patient seen eval examined during rounds labs reviewed medications reviewed, respiratory status remains unchanged, patient remains on 15 L 75% oxygen unable to titrate oxygen down, appetite continued to improve, patient able to swallow well, labs reviewed medications reviewed care plan discussed with the staff at length, patient can be moved out to [facility] with remote telemetry 04/11/2020, patient seen eval examined during evaluation patient noted to be more awake and alert compared to prior exam however patient remains on 15 L 75% aerosolized oxygen high flow, no obvious distress present patient remains afebr ile, remains on broad-spectrum antibiotics and usual care for coronary 19 pneumonia April 10 2020 patient seen eval examined sitting upright on the bed breathing comfortably, patient remains on high flow oxygen 15 L 75%, swallow evaluation completed patient able to swallow well will start by mouth blood pressure problem remains an issue we will increase the dose of Norvasc continue oral hydralazine monitor blood pressure closely, absolute reviewed x-ray reviewed continued to show bilateral interstitial infiltrate predominantly in mid part and basis 04/09/2020, patient seen eval examined in the ICU, respiratory status remains marginal but stable, patient is on 80% aerosolized oxygen 15 L, saturation is 90%, more awake and alert, swallowing functions will be reassessed later on today by speech therapist, mental status changes agitated behavior and confusion remains an issue which causes blood pressure to go up as well, 04/08/2020, patient seen eval examined during the rounds labs reviewed medications reviewed care plan discussed, patient remains on BiPAP 15/5 with 70% oxygen, oxygen saturation 94% more awake alert, will try high flow aerosolized oxygen, blood culture positive for gram positive cocci in chain, patient is on IV vancomycin he is following 04/07/2020, patient seen eval examined during the rounds labs reviewed medications reviewed, mental status remains stable slightly improved however, patient intermittently get anxious and agitated, low-grade temperature 90 is present hemodynamically stable though, saturation is 90% to 93% on partial nonrebreather mask, chest x-ray remains stable, white cell count remains elevated, 04/06/2020, patient seen eval examined during the rounds labs reviewed medications reviewed, patient remains off of ventilator, mental status slightly better today compared to last 24-48 hours less agitated awake oriented 1 now, remains on partial nonrebreather mask, saturation is 94%, LAD pressure slightly running on the higher side remains on IV hydralazine, oxygen saturation is 94% to 96%, 04/05/2020, patient seen evanson reexamined successfully weaned and extubated yesterday has been on supplemental oxygen 2-4 L, in the last 8-12 hours however decompensation in oxygenation status as well as patient even though awake but remains agitated appears to have a agitated delirium, does require Dilaudid at a regular interval, remains afebrile, oxygen saturation is 99% on 10 L nonrebreather mask, patient cannot take by mouth medicines are listed IV, will try morphine as needed DC Dilaudid, 04/04/2020, patient seen evanson examined during the rounds labs reviewed medications reviewed care plan discussed, patient is awake now remains off of propofol since yesterday, does make intermittent eye contact, remains slightly withdrawn however, respiratory status stable, remains on assist control mode rate of 24, tidal volume is 450, +5 of PEEP, 40% oxygen, peak airway pressure stable, chest x-ray shows bilateral diffuse interstitial infiltrate stable ET tube and NG tube in PICC line, white cell count is 13,400, hemoglobin and hemat ocrit stable 9.4 and 31, arterial blood gases reviewed pH is 7.4 to pCO2 32 pO2 64, BUN/creatinine is 32 and 0.5, patient is reviewed Lovenox remains 2040 mg subcu twice a day on IV furosemide, Solu-Medrol is 60 mg IV every 6 we'll decrease it to every 12 04/03/2020, patient seen eval examined during rounds labs reviewed medications reviewed, care plan discussed, overall hemodynamically he remains stable blood pressure spiked up on hydralazine when necessary, seems to be helping, patient sedated with propofol drip 50 mics, attempts for weaning of protocol has been unsuccessful as patient becomes agitated, attempted Precedex drip has been unsuccessful as well, current vent settings include assist control rate of 24 breathing 24, FiO2 is 40%, PEEP is 5, tidal volume is 450, chest x-ray stable ET tube with bilateral multifocal infiltrate with consolidation consistent with cold with 19 pneumonia not essentially much change from the prior x-ray, ET tube and NG tube was stable, patient is getting tube feed bolus feeding, labs including ABG chemistry reviewed 04/02/2020, patient seen eval examined during the rounds labs reviewed medications reviewed care plan discussed, patient remains sedated with propofol on ventilator for full ventilator support, currently patient is on assist cont rol mode rate Tuesday for breathing 24, tidal volume is 450, 5 of PEEP, 40% oxygen, propofol is 50 mics, chest x-ray from today reviewed continue show patchy bilateral infiltrate without any significant interval change, arterial blood gases revealed pH of 7.43 pCO2 32, C-reactive protein is down to 21, BUN/creatinine is 34/.49, white cell count and hemoglobin remained stable, medications reviewed, she remains on broad-spectrum antibiotic with cephapirin, Lovenox, gentle diuresis with Lasix, blood pressure control with IV hydralazine, patient remains on high-dose IV steroids, discussed with the staff at length, will stop the propofol drip and once patient is awake put on CPAP 5 pressure support of 5 gas after half an hour also check weaning parameters 04/01/2020, patient seen eval examined labs reviewed medications reviewed care plan discussed with the staff at length patient had a sedation holiday today she is arousable and awake follows simple commands with blood pressure went up beco mes agitated anxious requiring a reinitiation of propofol drip, ventilator setting remains unchanged, patient is on rate of 24 tidal volume is 450, PEEP is 5, oxygen is 40%, chest x-ray from today reviewed remains overall stable with stable lines and tubes 03/31/2020, patient seen eval examined during the rounds labs reviewed medications reviewed care plan discussed, patient remains on full ventilator support, propofol was changed to Precedex but however patient becomes agitated so back on propofol when setting remains unchanged have been on assist control rate of 24, PEEP is 5, FiO2 is 40%, tidal volume of 450, care plan discussed with the staff at length critical care time 35 minutes 03/30/2020, patient seen eval examined during the rounds labs reviewed medications reviewed, remains sedated with propofol, current vent setting include his control rate of 24 breathing 24 tidal volume is 450, deep is 5 now, FiO2 is 40%, tolerating tube feed very well, chest x-ray reviewed slightly bet ter but stable bilateral infiltrate consistent with atypical pneumonia, patient continued IVs very well with 20 mg Lasix daily, white cell count remained stable, with stable hemoglobin and however decreasing platelet count noted, dear blood gases revealed pH of 7.4 to pCO2 34 pO2 of 62, BUN/creatinine is 36 and 0.62, left he continue show downward trend, inflammatory markers reviewed still elevated but showing a downward trend 03/29/2020, patient seen eval examined during the rounds labs reviewed medications reviewed, care plan discussed with the nursing staff at length, patient has been on assist control rate of the 24 PEEP of 8 400 tidal volume 50% oxygen, ventilator has been adjusted with reduction in PEEP and oxygen, patient's saturation remained stable 91-92%, next step he is to stop propofol and reassess the mental status and if patient remains stable oxygen randolph and hemodynamics can do a CPAP pressure support trial in the meantime we'll continue IV steroids, antibiotics, CBC and ABG reviewed, today's chest x-ray showed bilateral interstitial infiltrate, predominantly at the bases, patient has been on Lasix 20 mg daily diuresing very well, critical care time 35 minutes 03/28/2020, patient seen eval examined during the rounds labs reviewed medications reviewed care plan discussed oxygen has been down to 40% now. The patient is PEEP of 8, otherwise ventilator setting remains stable, patient is scheduled for PICC line later on today, remains on propofol, remains on broad- spectrum antibiotics, labs from today has been reviewed hemoglobin is stable 7.9, d-dimer is 3.24, arterial blood gases stable pH is 7.41 pCO2 35 pO2 96, BUN/creatinine is 51 and 1.05, ferritin level remains more than 26,000, AST ALT continued decline however today is 367 and 558, C-reactive protein checked 69.5 her chest x-ray earlier than today remains there however appears to have slightly progressed 03/27/2020, patient seen eval examined during the rounds labs reviewed medications reviewed care plan discussed, propofol has been discontinued patient because very restless and anxious, we'll restart propofol, patient has been on full ventilator support assist control 24 tidal volume of 450, PEEP is 10, oxygen is 70%, arterial blood gases reviewed when lower the FiO2 to 60% now plan to bring down the FiO2 to 50% and PEEP of 8 next 24 hours, sputum and blood cultures reviewed no growth so far, chest x-ray performed today reviewed significant improvement in infiltrates seen bilaterally, patient has a poor urine output throughout the night, 20 mg of Lasix was given put out 600 mL of urine patient continued to be on gentle hydration, remain on cefapime and Vanco, Lovenox Solu-Medrol multivitamin and vitamin C zinc and Lovenox, white cell count is stable 10,500 hemoglobin and hematocrit 7.2 and 24, general surgery has been following patient is considered to get EGD and colonoscopy once stable, arterial blood gas revealed pH of 7.39 pCO2 of 39 pO2 of 124, bicarb 25, liver enzymes continue to come down AST and ALT now is 944/809, hepatitis panel normal and nonreactive 03/26/2020, patient seen eval examined in the ICU care plan discussed with the staff, FiO2 has been down to 60%, patient remains on assist control tidal volume of 450, PEEP is 10, respiratory rate is 24 breathing with the respirator pH has been improved significantly, patient is making adequate urine chest x-ray compared with yesterday's x-ray some improvement have been noted, white cell count is 11,000, hemoglobin 7.9 which is stable, arterial blood gas improved to 7.39, pCO2 of 40, pO2 112, BUN/creatinine is 33/0.96, lactic acid was 5.9 down to 1.3 now, ferritin level noted to be 12,800, AST and ALT are 4014 100 with LDH over 21,500, today LFTs significantly improved AST is down to 2795 and ALT is 1222, pro calcitonin is 0.84, suspect some component of heart failure as well as pneumonia, will get an echocardiogram as well as start patient on broad-spectrum antibiotics with cefepime and Vanco Patient seen and evaluated examined in the emergency department, patient came into the ER from the office of Dr. Aleman due to progressive shortness of breath, patient has acute on chronic hypoxic respiratory failure on 4 L oxygen, also has issues associated with pneumonia presumed to be cold with 19, however, testing was negative, patient used to smoke in the remote past quit about 20-30 years ago due to severity or shortness of breath and hypoxia with saturation of 76% on 100% oxygen and respiratory distress patient was intubated due to poor tolerance on BiPAP, patient Covid testing came back positive, chest x-ray showing diffuse infiltrate she also has been noted to have elevated liver enzymes due to elevated liver enzymes will not start IV REMdesivir, Initial ABG pH is 7.18, pCO2 is 63 pO2 was only 33 Objective - Vital Signs Vital signs: Vital Signs Temp 97.5 F L 04/24/20 16:00 Pulse 71 04/24/20 16:00 Resp 16 04/24/20 16:00 BP 112/63 04/24/20 16:00 Pulse Ox 93 L 04/24/20 16:00 Intake & Output 04/23/20 04/24/20 04/24/20 18:59 06:59 18:59 Output Total 700 Balance -700 Weight 72.5 kg Output: Urine 700 Uretheral (Quick) 700 Other: Voiding Method Indwelling Catheter Indwelling Catheter Indwelling Catheter # Voids 700 - Exam Patient on 80% oxygen 15 L aerosolized saturation is 90% to 92% - Constitutional General appearance: average body habitus, mild distress, restless intermittently agitated - EENT Ears: bilateral: normal - Neck Carotids: bilateral: upstroke normal Thyroid: bilateral: normal size - Respiratory Respiratory: bilateral: diminished - Cardiovascular Rhythm: regular Heart sounds: normal: S1, S2 - Gastrointestinal General gastrointestinal: normal bowel sounds Patient is relatively more awake and alert compared to yesterday exam - Labs CBC & Chem 7: 04/24/20 06:48 04/24/20 06:48 Labs: Abnormal Lab Results - Last 24 Hours (Table) 04/23/20 04/23/20 04/24/20 Range/Units 16:55 20:06 06:48 RBC 2.59 L (3.80-5.40) m/uL Hgb 7.4 L (11.4-16.0) gm/dL Hct 22.3 L (34.0-46.0) % RDW 18.1 H (11.5-15.5) % Sodium (137-145) mmol/L BUN (7-17) mg/dL Glucose (74-99) mg/dL POC Glucose (mg/dL) 175 H 135 H (75-99) mg/dL Calcium (8.4-10.2) mg/dL AST (14-36) U/L ALT (4-34) U/L Total Protein (6.3-8.2) g/dL Albumin (3.5-5.0) g/dL 04/24/20 04/24/20 04/24/20 Range/Units 06:48 06:55 11:07 RBC (3.80-5.40) m/uL Hgb (11.4-16.0) gm/dL Hct (34.0-46.0) % RDW (11.5-15.5) % Sodium 127 L (137-145) mmol/L BUN 19 H (7-17) mg/dL Glucose 127 H (74-99) mg/dL POC Glucose (mg/dL) 135 H 163 H (75-99) mg/dL Calcium 7.5 L (8.4-10.2) mg/dL AST 43 H (14-36) U/L ALT 59 H (4-34) U/L Total Protein 5.0 L (6.3-8.2) g/dL Albumin 2.5 L (3.5-5.0) g/dL Assessment and Plan Assessment: Hyponatremia Generalized weakness and medical debility Gram-positive bacteremia and VRE has been noted in urine blood on daptomycin Agitated delirium along with metabolic encephalopathy likely multifactorial including Covid 19 pneumonia, is being in ICU, for intubation long period time sepsis, slowly improving Acute hypoxic respiratory failure Covid19 pneumonia Thrombocytopenia stable Acute hepatitis/elevated liver enzymes Acute diastolic heart failure Chronic anemia Fibromyalgia Hypertension hypertensive cardiovascular disease Plan: Continue supportive care, oxygen taper as tolerated Continue daptomycin IV steroids, taper as tolerated Further recommendations pending plan of care as per clinical response of patient Continue anticoagulation with Lovenox PT OT evaluation Monitor labs and sodium closely Time with Patient: Greater than 30
[2020-04-24 17:23] LABS: Glucose,Whole Blood 240 mg/dL (75-99)
[2020-04-24] MEDS: AMITRIPTYLINE HCL 50 MG TAB PO SCH (20:15)
[2020-04-24 20:26] LABS: Glucose,Whole Blood 275 mg/dL (75-99)
[2020-04-24] MEDS: DAPTOmycin 500 MG in SODIUM CHLORIDE 0.9% 50 ML IVPB SCH (21:48)
[2020-04-24] MEDS: FLUCONAZOLE 100 MG TAB PO SCH (21:48)
[2020-04-25 07:13] LABS: Glucose,Whole Blood 126 mg/dL (75-99)
[2020-04-25] MEDS: INSULIN ASPART (NovoLOG) 100 UNIT/ML VIAL SQ SCH ×4 (07:18→21:29)
[2020-04-25] MEDS: ENOXAPARIN 40 MG/0.4 ML SYRINGE SQ SCH (08:23)
[2020-04-25] MEDS: amLODIPine 5 MG TAB PO SCH ×2 (08:24→21:28)
[2020-04-25] MEDS: ASCORBIC ACID 500 MG TAB PO SCH ×2 (08:24→21:28)
[2020-04-25] MEDS: SERTRALINE 100 MG TAB PO SCH (08:24)
[2020-04-25] MEDS: PANTOPRAZOLE 40 MG TABLET PO SCH ×2 (08:24→21:28)
[2020-04-25] MEDS: ZINC SULFATE 220 MG CAP PO SCH (08:24)
[2020-04-25] MEDS: hydrALAZINE HCL 25 MG TAB PO SCH ×3 (08:24→21:29)
[2020-04-25] MEDS: methylPREDNISolone SOD SUCCI 40 MG/ML 1 ML VIAL IV SCH (08:24)
[2020-04-25] MEDS: CHOLECALCIFEROL 400 UNIT TAB PO SCH (08:25)
[2020-04-25 09:01] LABS: Anisocytosis Slight; Basophils % (A) 0 %; Eosinophils # (A) 0.1 k/uL (0-0.7); Eosinophils % (A) 1 %; HCT 23.3 % (34.0-46.0); HGB 7.7 gm/dL (11.4-16.0); Hypochromasia Slight; Lymphocytes # (A) 0.7 k/uL (1.0-4.8); Lymphocytes % (A) 8 %; MCH 28.3 pg (25.0-35.0); MCHC 33.1 g/dL (31.0-37.0); MCV 85.4 fL (80.0-100.0); Mean Platelet Volume 7.5; Monocytes # (A) 0.3 k/uL (0-1.0); Monocytes % (A) 3 %; Neutrophils # (A) 7.5 k/uL (1.3-7.7); Neutrophils % (A) 87 %; Platelet Count 206 k/uL (150-450); Poikilocytosis Slight; RBC 2.73 m/uL (3.80-5.40); RDW 18.2 % (11.5-15.5); WBC 8.7 k/uL (3.8-10.6)
[2020-04-25 11:00] LABS: Glucose,Whole Blood 320 mg/dL (75-99)
--- NOTE | 2020-04-25 11:03 | P.PN ---
Subjective Progress Note Date: 04/25/20 Principal diagnosis: Acute hypoxic respiratory failure Covid19 pneumonia Acute respiratory and metabolic acidosis Acute hepatitis/elevated liver enzymes Acute diastolic heart failure and fluid overload Chronic anemia Fibromyalgia Hypertension hypertensive cardiovascular disease 04/25/2020, patient seen eval examined during rounds labs reviewed medications reviewed care plan discussed, respiratory status remains stable, however during activity and exertion does drop down at 5 L oxygen saturation is mid 90s but with physical therapy dropped down to 80s, recommended before exertion oxygen to be bumped up to 8 L 04/24/2020, patient seen eval examined during the rounds labs reviewed medications reviewed care plan discussed, respiratory status remains marginal now patient requires 8 L as he was noted to have significant dysphagia and desaturation during physical therapy into 70s, she is been settling down her sats most recent 9394% now 04/23/2020, patient seen eval examined labs reviewed medications reviewed care plan discussed, respiratory status remains stable, patient is now on 4 L sitting upright on the chair finished her breakfast appears very well awake and alert continue supportive care oxygen saturation is now 98% 04/22/2020, patient seen eval examined during the rounds labs reviewed medications reviewed care plan discussed, respiratory status continued to be stable currently patient over a liter oxygen sitting upright on the bed breathing comfortably, oxygen demand however continued to be high, oxygen saturation 95-88%, 04/21/2020, patient seen evanson examined, slightly more short of breath appetite poor did not consume more than one fourth of tray, remains very weak, oxygen requirement increased to 8 L, somnolent but arousable, will decrease his steroid to once a day 04/20/2020, patient continued do well, oxygen is down to 6 L now from 7 L, patient appetite and mental status continued to improve will continue current plan of care 04/19/2020, patient seen evanson examined during the rounds labs reviewed medications reviewed, patient is now down to 8 L from 10 L, saturation is mid 90s, respiratory status stable, we'll continue titrated oxygen down as tolerated slowly 2-3 L in 24 hours as tolerated 04/18/2020, patient seen evanson examined during the rounds labs reviewed medications reviewed respiratory status remains stable denies any chest pain, patient remains on high flow oxygen, saturation well, discussed was titrated down as tolerated, labs reviewed medications reviewed, currently patient is on 10 L 45% airvo 04/17/2020, patient seen eval examined more awake and alert breathing comfortably no obvious distress is present, oxygen being titrated down off of high flow and airvo, on 15 L high flow saturating low to mid 80s and dropped down some back on aerosolized oxygen, mental status more clear tolerating by mouth well extremely weak continued PT OT and supportive care 04/16/2020, patient seen eval examined during the rounds respiratory status continued to improve so as the mental status however is still on high flow air VO oxygen 04/15/2020, patient seen eval examined during the rounds labs reviewed medicati ons reviewed care plan discussed, patient remains on high flow oxygen 15 L 70% oxygen saturation remains marginal low 90s to high 80s previously today noted to be 94%, patient has been tolerating by mouth well, has been moved down from the ICU labs from today reviewed slight hyponatremia noted otherwise fairly within normal limit patient remains on Lovenox along with daptomycin fluconazole, IV steroids, patient has finished usual therapy for covid19 pneumonia 04/14/2020, patient remains on 50% oxygen 70L, awake slightly confused, shortness of breath is not obvious hemodynamic status stable tolerating by mouth well patient will be moved out of the ICU when bed available 04/13/2020, patient seen eval examined during the rounds labs reviewed medications reviewed care plan discussed with the staff, respiratory status remains stable continued to be on the 75% oxygen 15 L high flow, remains afebrile remains on antibiotics patient will be transferred to [facility] with remote telemetry date on today 04/12/2020, patient seen eval examined during rounds labs reviewed medications reviewed, respiratory status remains unchanged, patient remains on 15 L 75% oxygen unable to titrate oxygen down, appetite continued to improve, patient able to swallow well, labs reviewed medications reviewed care plan discussed with the staff at length, patient can be moved out to [facility] with remote telemetry 04/11/2020, patient seen eval examined during evaluation patient noted to be more awake and alert compared to prior exam however patient remains on 15 L 75% aerosolized oxygen high flow, no obvious distress present patient remains afebrile, remains on broad-spectrum antibiotics and usual care for coronary 19 pneumonia April 10 2020 patient seen eval examined sitting upright on the bed breathing comfortably, patient remains on high flow oxygen 15 L 75%, swallow evaluation completed patient able to swallow well will start by mouth blood pressure problem remains an issue we will increase the dose of Norvasc continue oral hydralazine monitor blood pressure closely, absolute reviewed x-ray reviewed continued to show bilateral interstitial infiltrate predominantly in mid part and basis 04/09/2020, patient seen eval examined in the ICU, respiratory status remains marginal but stable, patient is on 80% aerosolized oxygen 15 L, saturation is 90%, more awake and alert, swallowing functions will be reassessed later on today by speech therapist, mental status changes agitated behavior and confusion remains an issue which causes blood pressure to go up as well, 04/08/2020, patient seen eval examined during the rounds labs reviewed medications reviewed care plan discussed, patient remains on BiPAP 15/5 with 70% oxygen, oxygen saturation 94% more awake alert, will try high flow aerosolized oxygen, blood culture positive for gram positive cocci in chain, patient is on IV vancomycin he is following 04/07/2020, patient seen eval examined during the rounds labs reviewed medications reviewed, mental status remains stable slightly improved however, patient intermittently get anxious and agitated, low-grade temperature 90 is present hemodynamically stable though, saturation is 90% to 93% on partial nonrebreather mask, chest x-ray remains stable, white cell count remains elevated, 04/06/2020, patient seen eval examined during the rounds labs reviewed medications reviewed, patient remains off of ventilator, mental status slightly better today compared to last 24-48 hours less agitated awake oriented 1 now, remains on partial nonrebreather mask, saturation is 94%, LAD pressure slightly running on the higher side remains on IV hydralazine, oxygen saturation is 94% to 96%, 04/05/2020, patient seen eval reexamined successfully weaned and extubated yesterday has been on supplemental oxygen 2-4 L, in the last 8-12 hours however decompensation in oxygenation status as well as patient even though awake but remains agitated appears to have a agitated delirium, does require Dilaudid at a regular interval, remains afebrile, oxygen saturation is 99% on 10 L nonrebreather mask, patient cannot take by mouth medicines are listed IV, will try morphine as needed DC Dilaudid, 04/04/2020, patient seen eval examined during the rounds labs reviewed medications reviewed care plan discussed, patient is awake now remains off of propofol since yesterday, does make intermittent eye contact, remains slightly withdrawn however, respiratory status stable, remains on assist control mode rate of 24, tidal volume is 450, +5 of PEEP, 40% oxygen, peak airway pressure stable, chest x-ray shows bilateral diffuse interstitial infiltrate stable ET tube and NG tube in PICC line, white cell count is 13,400, hemoglobin and hematocrit stable 9.4 and 31, arterial blood gases reviewed pH is 7.4 to pCO2 32 pO2 64, BUN/creatinine is 32 and 0.5, patient is reviewed Lovenox remains 2040 mg subcu twice a day on IV furosemide, Solu-Medrol is 60 mg IV every 6 we'll decrease it to every 12 04/03/2020, patient seen eval examined during rounds labs reviewed medications reviewed, care plan discussed, overall hemodynamically he remains stable blood pressure spiked up on hydralazine when necessary, seems to be helping, patient sedated with propofol drip 50 mics, attempts for weaning of protocol has been unsuccessful as patient becomes agitated, attempted Precedex drip has been unsuccessful as well, current vent settings include assist control rate of 24 breathing 24, FiO2 is 40%, PEEP is 5, tidal volume is 450, chest x-ray stable ET tube with bilateral multifocal infiltrate with consolidation consistent with cold with 19 pneumonia not essentially much change from the prior x-ray, ET tube and NG tube was stable, patient is getting tube feed bolus feeding, labs including ABG chemistry reviewed 04/02/2020, patient seen eval examined during the rounds labs reviewed medications reviewed care plan discussed, patient remains sedated with propofol on ventilator for full ventilator support, currently patient is on assist control mode rate Tuesday for breathing 24, tidal volume is 450, 5 of PEEP, 40% oxygen, propofol is 50 mics, chest x-ray from today reviewed continue show patchy bilateral infiltrate without any significant interval change, arterial blood gases revealed pH of 7.43 pCO2 32, C-reactive protein is down to 21, BUN/creatinine is 34/.49, white cell count and hemoglobin remained stable, medications reviewed, she remains on broad-spectrum antibiotic with cephapirin, Lovenox, gentle diuresis with Lasix, blood pressure control with IV hydralazine, patient remains on high-dose IV steroids, discussed with the staff at length, will stop the propofol drip and once patient is awake put on CPAP 5 pressure support of 5 gas after half an hour also check weaning parameters 04/01/2020, patient seen eval examined labs reviewed medications reviewed care plan discussed with the staff at length patient had a sedation holiday today she is arousable and awake follows simple commands with blood pressure went up becomes agitated anxious requiring a reinitiation of propofol drip, ventilator setting remains unchanged, patient is on rate of 24 tidal volume is 450, PEEP is 5, oxygen is 40%, chest x-ray from today reviewed remains overall stable with stable lines and tubes 03/31/2020, patient seen eval examined during the rounds labs reviewed medications reviewed care plan discussed, patient remains on full ventilator support, propofol was changed to Precedex but however patient becomes agitated so back on propofol when setting remains unchanged have been on assist control rate of 24, PEEP is 5, FiO2 is 40%, tidal volume of 450, care plan discussed with the staff at length critical care time 35 minutes 03/30/2020, patient seen eval examined during the rounds labs reviewed medications reviewed, remains sedated with propofol, current vent setting include his control rate of 24 breathing 24 tidal volume is 450, deep is 5 now, FiO2 is 40%, tolerating tube feed very well, chest x-ray reviewed slightly better but stable bilateral infiltrate consistent with atypical pneumonia, patient continued IVs very well with 20 mg Lasix daily, white cell count remained stable, with stable hemoglobin and however decreasing platelet count noted, dear blood gases revealed pH of 7.4 to pCO2 34 pO2 of 62, BUN/creatinine is 36 and 0.62, left he continue show downward trend, inflammatory markers reviewed still elevated but showing a downward trend 03/29/2020, patient seen eval examined during the rounds labs reviewed medications reviewed, care plan discussed with the nursing staff at length, patient has been on assist control rate of the 24 PEEP of 8 400 tidal volume 50% oxygen, ventilator has been adjusted with reduction in PEEP and oxygen, patient's saturation remained stable 91-92%, next step he is to stop propofol and reassess the mental status and if patient remains stable oxygen randolph and hemodynamics can do a CPAP pressure support trial in the meantime we'll continue IV steroids, antibiotics, CBC and ABG reviewed, today's chest x-ray showed bilateral interstitial infiltrate, predominantly at the bases, patient has been on Lasix 20 mg daily diuresing very well, critical care time 35 minutes 03/28/2020, patient seen eval examined during the rounds labs reviewed medications reviewed care plan discussed oxygen has been down to 40% now. The patient is PEEP of 8, otherwise ventilator setting remains stable, patient is scheduled for PICC line later on today, remains on propofol, remains on broad- spectrum antibiotics, labs from today has been reviewed hemoglobin is stable 7.9, d-dimer is 3.24, arterial blood gases stable pH is 7.41 pCO2 35 pO2 96, BUN/creatinine is 51 and 1.05, ferritin level remains more than 26,000, AST ALT continued decline however today is 367 and 558, C-reactive protein checked 69.5 her chest x-ray earlier than today remains there however appears to have slightly progressed 03/27/2020, patient seen eval examined during the rounds labs reviewed medications reviewed care plan discussed, propofol has been discontinued patient because very restless and anxious, we'll restart propofol, patient has been on full ventilator support assist control 24 tidal volume of 450, PEEP is 10, oxygen is 70%, arterial blood gases reviewed when lower the FiO2 to 60% now plan to bring down the FiO2 to 50% and PEEP of 8 next 24 hours, sputum and blood cultures reviewed no growth so far, chest x-ray performed today reviewed significant improvement in infiltrates seen bilaterally, patient has a poor urine output throughout the night, 20 mg of Lasix was given put out 600 mL of urine patient continued to be on gentle hydration, remain on cefapime and Vanco, Lovenox Solu-Medrol multivitamin and vitamin C zinc and Lovenox, white cell cou nt is stable 10,500 hemoglobin and hematocrit 7.2 and 24, general surgery has been following patient is considered to get EGD and colonoscopy once stable, arterial blood gas revealed pH of 7.39 pCO2 of 39 pO2 of 124, bicarb 25, liver enzymes continue to come down AST and ALT now is 944/809, hepatitis panel normal and nonreactive 03/26/2020, patient seen eval examined in the ICU care plan discussed with the staff, FiO2 has been down to 60%, patient remains on assist control tidal volume of 450, PEEP is 10, respiratory rate is 24 breathing with the respirator pH has been improved significantly, patient is making adequate urine chest x-ray compared with yesterday's x-ray some improvement have been noted, white cell count is 11,000, hemoglobin 7.9 which is stable, arterial blood gas improved to 7.39, pCO2 of 40, pO2 112, BUN/creatinine is 33/0.96, lactic acid was 5.9 down to 1.3 now, ferritin level noted to be 12,800, AST and ALT are 4014 100 with LDH over 21,500, today LFTs significantly improved AST is down to 2795 and ALT is 1222, pro calcitonin is 0.84, suspect some component of heart failure as well as pneumonia, will get an echocardiogram as well as start patient on broad-spectrum antibiotics with cefepime and Vanco Patient seen and evaluated examined in the emergency department, patient came into the ER from the office of Dr. Aleman due to progressive shortness of breath , patient has acute on chronic hypoxic respiratory failure on 4 L oxygen, also has issues associated with pneumonia presumed to be cold with 19, however, testing was negative, patient used to smoke in the remote past quit about 20-30 years ago due to severity or shortness of breath and hypoxia with saturation of 76% on 100% oxygen and respiratory distress patient was intubated due to poor tolerance on BiPAP, patient Covid testing came back positive, chest x-ray showing diffuse infiltrate she also has been noted to have elevated liver enzymes due to elevated liver enzymes will not start IV REMdesivir, Initial ABG pH is 7.18, pCO2 is 63 pO2 was only 33 Objective - Vital Signs Vital signs: Vital Signs Temp 98.4 F 04/25/20 04:15 Pulse 82 04/25/20 04:15 Resp 16 04/25/20 04:15 BP 123/67 04/25/20 04:15 Pulse Ox 97 04/25/20 07:37 Intake & Output 04/24/20 04/25/20 04/25/20 18:59 06:59 18:59 Intake Total 660 Output Total 450 Balance -450 660 Intake: IV 600 Sodium Chloride 0.9% 1, 600 000 ml @ 50 mls/hr IV . Q20H [facility] Rx#:[id number] Oral 60 Output: Urine 450 Other: Voiding Method Indwelling Catheter Indwelling Catheter - Exam Patient on 80% oxygen 15 L aerosolized saturation is 90% to 92% - Constitutional General appearance: average body habitus, mild distress, restless intermittently agitated - EENT Ears: bilateral: normal - Neck Carotids: bilateral: upstroke normal Thyroid: bilateral: normal size - Respiratory Respiratory: bilateral: diminished - Cardiovascular Rhythm: regular Heart sounds: normal: S1, S2 - Gastrointestinal General gastrointestinal: normal bowel sounds Patient is relatively more awake and alert compared to yesterday exam - Labs CBC & Chem 7: 04/25/20 08:34 04/24/20 06:48 Labs: Abnormal Lab Results - Last 24 Hours (Table) 04/24/20 04/24/20 04/24/20 Range/Units 11:07 17:13 20:10 RBC (3.80-5.40) m/uL Hgb (11.4-16.0) gm/dL Hct (34.0-46.0) % RDW (11.5-15.5) % Lymphocytes # (1.0-4.8) k/uL POC Glucose (mg/dL) 163 H 240 H 275 H (75-99) mg/dL 04/25/20 04/25/20 04/25/20 Range/Units 07:12 08:34 10:58 RBC 2.73 L (3.80-5.40) m/uL Hgb 7.7 L (11.4-16.0) gm/dL Hct 23.3 L (34.0-46.0) % RDW 18.2 H (11.5-15.5) % Lymphocytes # 0.7 L (1.0-4.8) k/uL POC Glucose (mg/dL) 126 H 320 H (75-99) mg/dL Assessment and Plan Assessment: Hyponatremia Generalized weakness and medical debility Gram-positive bacteremia and VRE has been noted in urine blood on daptomycin Agitated delirium along with metabolic encephalopathy likely multifactorial including Covid 19 pneumonia, is being in ICU, for intubation long period time sepsis, slowly improving Acute hypoxic respiratory failure Covid19 pneumonia Thrombocytopenia stable Acute hepatitis/elevated liver enzymes Acute diastolic heart failure Chronic anemia Fibromyalgia Hypertension hypertensive cardiovascular disease Plan: Continue supportive care, oxygen taper as tolerated Continue daptomycin IV steroids, taper as tolerated Further recommendations pending plan of care as per clinical response of patient Continue anticoagulation with Lovenox PT OT evaluation Monitor labs and sodium closely Time with Patient: Greater than 30
[2020-04-25] MEDS ORDERED: INSULIN ASPART (NovoLOG) 100 UNIT/ML VIAL SQ ONE (12:09)
--- NOTE | 2020-04-25 12:27 | P.PN ---
Subjective Progress Note Date: 04/25/20 CHIEF COMPLAINT: GI bleed HISTORY OF PRESENT ILLNESS: Patient has had prolonged hospitalization with resp iratory failure due to Covid 19 infection. She also has enterococcus and VRE UTI and enterococcus bacteremia. Surgical service is following for patient's GI bleed and anemia. Patient has had no active bleeding. Lovenox was decreased yesterday to once a day. Hemoglobin 7.7 WBC 8.7 patient is afebrile. Patient did have a soft loose bowel movement today. No evidence of any bleeding or black stool PHYSICAL EXAM: VITAL SIGNS: Reviewed. GENERAL: Well-developed in no acute distress. HEENT: No sclera icterus. Extraocular movements grossly intact. Moist buccal mucosa. Head is atraumatic, normocephalic. ABDOMEN: Soft. Nondistended. Nontender. NEUROLOGIC: Alert and orientated. Cranial nerves II through XII grossly intact ASSESSMENT: 1. Acute on chronic blood loss anemia due to possible GI source. Patient currently not having any active bleeding. 3. Elevated liver enzymes with large gallstone present on abdominal ultrasound. LFTs are trending down 4. Acute hypoxic respiratory failure due to COVID 19 infection requiring to be intubated. Patient was successfully extubated on 04/04/2020 5. Constipation Plan: -Yesterday, decreased Lovenox from 40 mg twice a day to once a day due to continuous decrease in hemoglobin -Recommend upper and lower endoscopy when patient is more stable -Continue to monitor patient's hemoglobin -Continue to monitor for active bleeding -Continue Protonix -Continue supportive care Physician Machine Welder note has been reviewed by physician. Signing provider agrees with the documented findings, assessment, and plan of care. Objective - Vital Signs Vital signs: Vital Signs Temp 97.6 F 04/25/20 11:00 Pulse 67 04/25/20 11:00 Resp 24 04/25/20 11:00 BP 89/59 04/25/20 11:00 Pulse Ox 95 04/25/20 11:00 Intake & Output 04/24/20 04/25/20 04/25/20 18:59 06:59 18:59 Intake Total 660 120 Output Total 450 Balance -450 660 120 Weight 70.307 kg Intake: IV 600 Sodium Chloride 0.9% 1, 600 000 ml @ 50 mls/hr IV . Q20H [facility] Rx#:[id number] Oral 60 120 Output: Urine 450 Other: Voiding Method Indwelling Catheter Indwelling Catheter Indwelling Catheter - Labs CBC & Chem 7: 04/25/20 08:34 04/24/20 06:48 Labs: Abnormal Lab Results - Last 24 Hours (Table) 04/24/20 04/24/20 04/25/20 Range/Units 17:13 20:10 07:12 RBC (3.80-5.40) m/uL Hgb (11.4-16.0) gm/dL Hct (34.0-46.0) % RDW (11.5-15.5) % Lymphocytes # (1.0-4.8) k/uL POC Glucose (mg/dL) 240 H 275 H 126 H (75-99) mg/dL 04/25/20 04/25/20 Range/Units 08:34 10:58 RBC 2.73 L (3.80-5.40) m/uL Hgb 7.7 L (11.4-16.0) gm/dL Hct 23.3 L (34.0-46.0) % RDW 18.2 H (11.5-15.5) % Lymphocytes # 0.7 L (1.0-4.8) k/uL POC Glucose (mg/dL) 320 H (75-99) mg/dL
--- NOTE | 2020-04-25 15:01 | P.PN ---
Subjective Progress Note Date: 04/25/20 HISTORY OF PRESENT ILLNESS This is a 69-year-old female patient treated for enterococcus VRE UTI and Enter ococcus faecalis bacteremia. Patient is up to commode chair today and pulse ox dropped to 88-90% and oxygen increased to 10 L. Blood pressures been on the lower side of 88/46. She has been afebrile, heart rate 67. Pulse ox is 95% on 5 L nasal cannula. The CBC is 8.7, hemoglobin 7.7. PHYSICAL EXAMINATION Gen: This is a 69-year-old female. She is resting in bed appears to be comfortable. HEENT: Head is atraumatic, normocephalic. Pupils equal, round. Sclerae is anicteric. NECK: Supple. No JVD. No lymphadenopathy. LUNGS: Clear to auscultation. No intercostal retractions. HEART: Regular rate and rhythm. No murmur. ABDOMEN: Soft. Bowel sounds are present. No masses. No tenderness. EXTREMITIES: No pedal edema. No calf tenderness. NEUROLOGICAL: Patient is awake, alert and oriented x3. ASSESSMENT Enterococcus and VRE UTI Enterococcus faecalis bacteremia PLAN Continue daptomycin No antibiotics necessary at the time of discharge as patient has completed course Continue supportive care The above dictated assessment and findings were discussed with Dr. Blackburn. The impression and plan of care have been directed as dictated. Naima Rascon nurse practitioner acting as scribe for Dr. Blackburn. Objective - Vital Signs Vital signs: Vital Signs Temp 97.6 F 04/25/20 11:00 Pulse 67 04/25/20 11:00 Resp 24 04/25/20 11:00 BP 89/59 04/25/20 11:00 Pulse Ox 95 04/25/20 11:00 Intake & Output 04/24/20 04/25/20 04/25/20 18:59 06:59 18:59 Intake Total 660 120 Output Total 450 Balance -450 660 120 Weight 70.307 kg Intake: IV 600 Sodium Chloride 0.9% 1, 600 000 ml @ 50 mls/hr IV . Q20H [facility] Rx#:[id number] Oral 60 120 Output: Urine 450 Other: Voiding Method Indwelling Catheter Indwelling Catheter Indwelling Catheter - Labs CBC & Chem 7: 04/25/20 08:34 04/24/20 06:48 Labs: Abnormal Lab Results - Last 24 Hours (Table) 04/24/20 04/24/20 04/25/20 Range/Units 17:13 20:10 07:12 RBC (3.80-5.40) m/uL Hgb (11.4-16.0) gm/dL Hct (34.0-46.0) % RDW (11.5-15.5) % Lymphocytes # (1.0-4.8) k/uL POC Glucose (mg/dL) 240 H 275 H 126 H (75-99) mg/dL 04/25/20 04/25/20 Range/Units 08:34 10:58 RBC 2.73 L (3.80-5.40) m/uL Hgb 7.7 L (11.4-16.0) gm/dL Hct 23.3 L (34.0-46.0) % RDW 18.2 H (11.5-15.5) % Lymphocytes # 0.7 L (1.0-4.8) k/uL POC Glucose (mg/dL) 320 H (75-99) mg/dL
--- NOTE | 2020-04-25 15:14 | P.PN ---
Subjective Principal diagnosis: Respiratory failure related Covid pneumonia.. Otherwise appreciate multiple consultants input. The patient is now on a general medical floor lucid and recovering appropriately. She still needing quite a bit of oxygen support but is improving. She has had a slight drop in hemoglobin which is not unusual for her. Colonoscopy was deferred related to >She has been tolerating significant hypoxia is been documented. Objective - Vital Signs Vital signs: Vital Signs Temp 97.6 F 04/25/20 11:00 Pulse 67 04/25/20 11:00 Resp 24 04/25/20 11:00 BP 89/59 04/25/20 11:00 Pulse Ox 95 04/25/20 11:00 Intake & Output 04/24/20 04/25/20 04/25/20 18:59 06:59 18:59 Intake Total 660 240 Output Total 450 Balance -450 660 240 Weight 70.307 kg Intake: IV 600 Sodium Chloride 0.9% 1, 600 000 ml @ 50 mls/hr IV . Q20H [facility] Rx#:[id number] Oral 60 240 Output: Urine 450 Other: Voiding Method Indwelling Catheter Indwelling Catheter Indwelling Catheter - Constitutional General appearance: Present: average body habitus - EENT Eyes: Absent: abnormal pupil - Neck Neck: Absent: lymphadenopathy - Respiratory Respiratory: bilateral: diminished - Cardiovascular Rhythm: regular Heart sounds: normal: S1, S2 Abnormal Heart Sounds: Absent: S3 Gallop - Gastrointestinal General gastrointestinal: Present: soft. Absent: tenderness - Musculoskeletal Musculoskeletal: Present: generalized weakness - Psychiatric Psychiatric: Present: A&O x's 3 - Labs CBC & Chem 7: 04/25/20 08:34 04/24/20 06:48 Labs: Abnormal Lab Results - Last 24 Hours (Table) 04/24/20 04/24/20 04/25/20 Range/Units 17:13 20:10 07:12 RBC (3.80-5.40) m/uL Hgb (11.4-16.0) gm/dL Hct (34.0-46.0) % RDW (11.5-15.5) % Lymphocytes # (1.0-4.8) k/uL POC Glucose (mg/dL) 240 H 275 H 126 H (75-99) mg/dL 04/25/20 04/25/20 Range/Units 08:34 10:58 RBC 2.73 L (3.80-5.40) m/uL Hgb 7.7 L (11.4-16.0) gm/dL Hct 23.3 L (34.0-46.0) % RDW 18.2 H (11.5-15.5) % Lymphocytes # 0.7 L (1.0-4.8) k/uL POC Glucose (mg/dL) 320 H (75-99) mg/dL Assessment and Plan (1) Acute respiratory distress syndrome Current Visit: Yes Status: Acute Code(s): J80 - ACUTE RESPIRATORY DISTRESS SYNDROME SNOMED Code(s): 92910434 (2) Anemia Current Visit: Yes Status: Acute Code(s): D64.9 - ANEMIA, UNSPECIFIED SNOMED Code(s): 240432708 (3) COVID-19 Current Visit: Yes Status: Acute Code(s): U07.1 - COVID-19 SNOMED Code(s): 776215232 (4) Pneumonia Current Visit: Yes Status: Acute Code(s): J18.9 - PNEUMONIA, UNSPECIFIED O RGANISM SNOMED Code(s): 246712861 (5) Fibromyalgia Current Visit: No Status: Acute Code(s): M79.7 - FIBROMYALGIA SNOMED Code(s): 759657801 Plan: Appropriate supportive care. Prognosis still Guarded due to her Covid 19. We'll continue to follow with consultants. Check CBC and CMP in a.m. Increase ambulation as possible.. Appreciate surgical consult.
[2020-04-25] MEDS: HYDROmorphone 1 MG/ML 1 ML SYRINGE IVP PRN ×2 (15:23→21:41)
[2020-04-25 17:20] LABS: Glucose,Whole Blood 157 mg/dL (75-99)
[2020-04-25] MEDS: SODIUM CHLORIDE 0.9% 1,000 ML IV SCH (19:34)
[2020-04-25 21:02] LABS: Glucose,Whole Blood 190 mg/dL (75-99)
[2020-04-25] MEDS: FLUCONAZOLE 100 MG TAB PO SCH (21:28)
[2020-04-25] MEDS: AMITRIPTYLINE HCL 50 MG TAB PO SCH (21:28)
[2020-04-26 07:17] LABS: Glucose,Whole Blood 111 mg/dL (75-99)
[2020-04-26 08:13] LABS: Anisocytosis Slight; Basophils % (A) 0 %; Eosinophils # (A) 0.2 k/uL (0-0.7); Eosinophils % (A) 1 %; HCT 21.4 % (34.0-46.0); HGB 7.1 gm/dL (11.4-16.0); Hypochromasia Slight; Lymphocytes # (A) 0.8 k/uL (1.0-4.8); Lymphocytes % (A) 8 %; MCH 28.7 pg (25.0-35.0); MCHC 33.5 g/dL (31.0-37.0); MCV 85.8 fL (80.0-100.0); Mean Platelet Volume 7.8; Monocytes # (A) 0.3 k/uL (0-1.0); Monocytes % (A) 3 %; Neutrophils # (A) 9.6 k/uL (1.3-7.7); Neutrophils % (A) 87 %; Platelet Count 220 k/uL (150-450); Poikilocytosis Moderate; RBC 2.49 m/uL (3.80-5.40); RDW 18.5 % (11.5-15.5)
[2020-04-26 08:15] LABS: African American GFR (CKD) >90 (>60 ml/min/1.73 sqM); Anion Gap 4 mmol/L; Blood Urea Nitrogen 25 mg/dL (7-17); Calcium 7.7 mg/dL (8.4-10.2); Carbon Dioxide 22 mmol/L (22-30); Chloride 105 mmol/L (98-107); Glucose 101 mg/dL (74-99); Non-African American GFR(CKD) >90 (>60 ml/min/1.73 sqM); Sodium 131 mmol/L (137-145)
[2020-04-26] MEDS: INSULIN ASPART (NovoLOG) 100 UNIT/ML VIAL SQ SCH ×4 (09:42→21:20)
--- NOTE | 2020-04-26 09:47 | P.PN ---
Subjective Progress Note Date: 04/26/20 This is a pleasant 69 years old female who has prolonged course in the hospital for more than 2 weeks where originally was admitted for worsening respiratory symptoms related to her covid 19 pneumonia, patient has been followed closely by pulmonary service and she remains on Lovenox, Solu-Medrol and IV hydration. However she still on 50 L of oxygen via high flow nasal cannula. Patient had swollen the problem but eventually found is able to swallow today and she was started on oral medication. Her blood pressure was on the high side and Norvasc increased to 5 mg twice daily and hydralazine to 75 mg 3 times a day. Also surgery team are following the case for acute blood loss for suspected GI bleed, they are planning to do EGD and colonoscopy once she is more clinically stable to tolerate such procedures Patient is also followed closely by ID team being covered by antibiotics with Diflucan and IV vancomycin for positive blood culture with enterococcus faecalis with coagulase-negative staph, suspected to be related to IV PICC line which was discontinued went and tip was sent for culture which is still pending If her enzymes were initially elevated on admission and due to her Covid infection and cholelithiasis, currently they are close to normal. Also patient found hemangioma rather than liver mass for GI team evaluation, however will need follow-up as an outpatient Covering for Dr. Aleman 04/26/2020 Patient is seen and evaluated continues to be closely monitored. Patient was admitted for respiratory failure related to Covid 19 pneumonia and currently remains on a medical surgical unit being closely monitored. Patient is presently on 4-1/2 L via nasal cannula and tolerating. Patient continues to be weak requiring assistance and will be going to ECF once stabilized. Patient's hemoglobin continues to drop and is currently 7.1 today from 7.7 most likely related to frequent blood draws and Lovenox. Multiple medical consultations following including surgery, infectious disease, and pulmonary. Plans for possible endoscopy once patient's respiratory status is better improved. No active bleeding noted. Patient denies any abdominal discomfort, nausea, or vomiting and has been tolerating diet. Encourage the patient to continue to increase oral intake and increase activity as tolerated. Patient does have an incentive spirometer at the bedside and instructed the patient to continue with the use of this at least 10 times every hour while awake. Patient does fatigue easily although is alert and oriented and responding more appropriately and awake. Lovenox has been adjusted and patient is also maintained on vitamin C and D supplements along with IV steroids. IV antibiotics recently discontinued and patient is being closely monitored off IV antibiotic therapy. Review of systems: Constitutional: Reports fatigue Cardiovascular: No reports of chest pain or palpitations Respiratory: Reports continued shortness of breath although feels it continues to improve GI: No reports of nausea, vomiting, or diarrhea : No reports of dysuria or retention Neurovascular: reports weakness All medications have been reviewed Active Medications Acetaminophen (Acetaminophen Tab 500 Mg Tab) 1,000 mg PO Q6HR PRN PRN Reason: Fever>101 Last Admin: 04/19/20 01:51 Dose: 1,000 mg Documented by: Alprazolam (Alprazolam 0.25 Mg Tab) 0.25 mg PO QID PRN PRN Reason: Anxiety Last Admin: 04/21/20 04:10 Dose: 0.25 mg Documented by: Amitriptyline HCl (Amitriptyline Hcl 50 Mg Tab) 50 mg PO [facility] Last Admin: 04/25/20 21:28 Dose: 50 mg Documented by: Amlodipine Besylate (Amlodipine 5 Mg Tab) 5 mg PO BID [facility] Last Admin: 04/25/20 21:28 Dose: 5 mg Documented by: Ascorbic Acid (Ascorbic Acid 500 Mg Tab) 500 mg PO BID [facility] Last Admin: 04/25/20 21:28 Dose: 500 mg Documented by: Cholecalciferol (Cholecalciferol 400 Unit Tab) 400 unit PO DAILY [facility] Last Admin: 04/25/20 08:25 Dose: 400 unit Documented by: Enoxaparin Sodium (Enoxaparin 40 Mg/0.4 Ml Syringe) 40 mg SQ DAILY [facility] Last Admin: 04/25/20 08:23 Dose: 40 mg Documented by: Fluconazole (Fluconazole 100 Mg Tab) 100 mg PO [facility] Last Admin: 04/25/20 21:28 Dose: 100 mg Documented by: Haloperidol Lactate (Haloperidol Lactate 5 Mg/Ml 1 Ml Vial) 2.5 mg IVP Q8HR PRN PRN Reason: Agitation or Acute Psychosis Last Admin: 04/14/20 04:41 Dose: 2.5 mg Documented by: Hydralazine HCl (Hydralazine Hcl 25 Mg Tab) 75 mg PO TID [facility] Last Admin: 04/25/20 21:29 Dose: Not Given Documented by: Hydromorphone HCl (Hydromorphone 1 Mg/Ml 1 Ml Syringe) 1 mg IVP Q2H PRN PRN Reason: Pain Last Admin: 04/25/20 21:41 Dose: 1 mg Documented by: Sodium Chloride (Saline 0.9%) 1,000 mls @ 50 mls/hr IV .Q20H [facility] Last Admin: 04/25/20 19:34 Dose: 50 mls/hr Documented by: Insulin Aspart (Insulin Aspart (Novolog) 100 Unit/Ml Vial) 0 unit SQ ACHS [facility]; Protocol Last Admin: 04/26/20 09:42 Dose: Not Given Documented by: Methylprednisolone Sodium Succinate (Methylprednisolone Sod Succi 40 Mg/Ml 1 Ml Vial) 40 mg IV DAILY [facility] Last Admin: 04/25/20 08:24 Dose: 40 mg Documented by: Naloxone HCl (Naloxone 0.4 Mg/Ml 1 Ml Vial) 0.2 mg IV Q2M PRN PRN Reason: Opioid Reversal Pantoprazole Sodium (Pantoprazole 40 Mg Tablet) 40 mg PO BID [facility] Last Admin: 04/25/20 21:28 Dose: 40 mg Documented by: Ropinirole HCl (Ropinirole Hcl 1 Mg Tab) 1 mg PO TID [facility] Last Admin: 04/25/20 21:28 Dose: 1 mg Documented by: Senna (Sennosides 8.6 Mg Tab) 8.6 mg PO BID PRN PRN Reason: Constipation Last Admin: 04/24/20 20:15 Dose: 8.6 mg Documented by: Sertraline HCl (Sertraline 100 Mg Tab) 150 mg PO DAILY [facility] Last Admin: 04/25/20 08:24 Dose: 150 mg Documented by: Sodium Chloride (Sodium Chloride 0.9% Flush 10 Ml Syringe) 10 ml IV Q4HR PRN PRN Reason: PICC Line Sodium Chloride (Sodium Chloride 0.9% Flush 10 Ml Syringe) 10 ml IV WEEKLY [facility] Last Admin: 04/25/20 08:25 Dose: 10 ml Documented by: Sodium Chloride (Sodium Chloride 0.9% Flush 10 Ml Syringe) 20 ml IV Q4HR PRN PRN Reason: PICC Line Zinc Sulfate (Zinc Sulfate 220 Mg Cap) 220 mg PO DAILY [facility] Last Admin: 04/25/20 08:24 Dose: 220 mg Documented by: Objective - Vital Signs Vital signs: Vital Signs Temp 97.5 F L 04/26/20 05:00 Pulse 70 04/26/20 05:00 Resp 18 04/26/20 05:00 BP 104/63 04/26/20 05:00 Pulse Ox 95 04/26/20 05:00 Intake & Output 04/25/20 04/26/20 04/26/20 18:59 06:59 18:59 Intake Total 840 300 Output Total 1050 Balance 840 -750 Weight 70.307 kg 70 kg Intake: IV 600 Sodium Chloride 0.9% 1, 600 000 ml @ 50 mls/hr IV . Q20H [facility] Rx#:[id number] Intake, IV Titration 300 Amount Sodium Chloride 0.9% 1, 300 000 ml @ 50 mls/hr IV . Q20H [facility] Rx#:[id number] Oral 240 Output: Urine 1050 Uretheral (Quick) 525 Other: Voiding Method Indwelling Catheter Indwelling Catheter - Exam GENERAL: The patient is alert and oriented x2-3, general malaise. Ill-appearing although more awake and responsive today sitting up in the chair. Temp is 97.5 F, pulse is 70, respirations are 18, blood pressure is 104/63, oxygen satur ation is 95% on 4.5 L nasal cannula HEENT: Pupils are round and equally reacting to light. EOMI. No scleral icterus. No conjunctival pallor. Normocephalic, atraumatic. No pharyngeal erythema. No thyromegaly. CARDIOVASCULAR: S1 and S2 muffled PULMONARY: Diminished breath sounds bilaterally no wheezing or rhonchi noted ABDOMEN: Soft, nontender, nondistended, normoactive bowel sounds. No palpable or ganomegaly. MUSCULOSKELETAL: No joint swelling or deformity. EXTREMITIES: No cyanosis, clubbing, or pedal edema. NEUROLOGICAL: Gross neurological examination did not reveal any focal deficits. Diffusely weak SKIN: No rashes. no petechiae. - Labs CBC & Chem 7: 04/26/20 07:43 04/26/20 07:43 Labs: Abnormal Lab Results - Last 24 Hours (Table) 04/25/20 04/25/20 04/25/20 Range/Units 08:34 10:58 17:07 RBC 2.73 L (3.80-5.40) m/uL Hgb 7.7 L (11.4-16.0) gm/dL Hct 23.3 L (34.0-46.0) % RDW 18.2 H (11.5-15.5) % Lymphocytes # 0.7 L (1.0-4.8) k/uL POC Glucose (mg/dL) 320 H 157 H (75-99) mg/dL 04/25/20 04/26/20 Range/Units 21:00 07:14 RBC (3.80-5.40) m/uL Hgb (11.4-16.0) gm/dL Hct (34.0-46.0) % RDW (11.5-15.5) % Lymphocytes # (1.0-4.8) k/uL POC Glucose (mg/dL) 190 H 111 H (75-99) mg/dL Assessment and Plan Assessment: Acute respiratory distress syndrome, Covid 19 pneumonia Acute hypoxic respiratory failure secondary to Covid 19 pneumonia Positive blood culture with bacteremia with with Enterococcus faecalis and coagulase negative staph, secondary to PICC line, resolved possible sepsis, present on admission, secondary to above Acute GI bleed, currently hemoglobin is stable, no active bleeding noted Uncontrolled hypertension with urgency Elevated liver enzymes with cholelithiasis, improved and patient is asymptomatic history of Fibromyalgia DVT prophylaxis: Subcutaneous Lovenox GI prophylaxis Full code Recommendations and discussion: Recommend continue current medications, management, and symptomatic treatment. Multiple medical consultations following including infectious disease, and pulmonary. No active bleeding noted at this time. Hemoglobin is 7.1 today and will continue to monitor closely. Will transfuse if less than 7. No plans for endoscopic interventions at this time although there has been discussion about possible endoscopy once respiratory status more stable if patient continues to have drops in hemoglobin. Lovenox has been adjusted due to drop in hemoglobin. Patient is off IV antibiotics and being monitored closely. Infectious disease is following. Continue to wean FiO2 as tolerated. Patient currently on 4.5 L via nasal cannula. Incentive spirometer reinforced patient instructed to continue using 10 times every hour while awake. PT/OT following as she continues to be quite weak. Patient needs continued assistance with meals and dysphasia diet along with head of the bed elevated 30-45 at all times. Will repeat a.m. labs. Due to multiple complex medical issues, prognosis is guarded. Further recommendations to follow.
[2020-04-26] MEDS: ASCORBIC ACID 500 MG TAB PO SCH ×2 (09:59→21:19)
[2020-04-26] MEDS: amLODIPine 5 MG TAB PO SCH ×2 (09:59→21:19)
[2020-04-26] MEDS: methylPREDNISolone SOD SUCCI 40 MG/ML 1 ML VIAL IV SCH (10:02)
[2020-04-26] MEDS: hydrALAZINE HCL 25 MG TAB PO SCH ×3 (10:02→21:36)
[2020-04-26] MEDS: ENOXAPARIN 40 MG/0.4 ML SYRINGE SQ SCH (10:02)
[2020-04-26] MEDS: SERTRALINE 100 MG TAB PO SCH (10:04)
[2020-04-26] MEDS: ZINC SULFATE 220 MG CAP PO SCH (10:04)
[2020-04-26] MEDS: CHOLECALCIFEROL 400 UNIT TAB PO SCH (10:05)
[2020-04-26] MEDS: PANTOPRAZOLE 40 MG TABLET PO SCH ×2 (10:05→21:19)
[2020-04-26 11:47] LABS: Glucose,Whole Blood 244 mg/dL (75-99)
[2020-04-26 17:08] LABS: Glucose,Whole Blood 297 mg/dL (75-99)
[2020-04-26] MEDS: SODIUM CHLORIDE 0.9% 1,000 ML IV SCH (17:23)
--- NOTE | 2020-04-26 18:31 | PN ---
PROGRESS NOTE DATE OF SERVICE: 04/26/2020 REASON FOR FOLLOWUP: VRE urinary tract infection and Enterococcus faecalis bacteremia. INTERVAL HISTORY: The patient is currently afebrile. The patient is breathing comfortably. The patient denies having any chest pain or shortness of breath. Occasional cough. No abdominal pain or diarrhea. PHYSICAL EXAMINATION: Blood pressure 115/58 with a pulse of 75, temperature 97.4. She is 94% on 5 L nasal cannula. General description is an elderly female lying in bed in no distress. RESPIRATORY SYSTEM: Unlabored breathing with decreased intensity of breath sounds. No wheeze. HEART: S1, S2. Regular rate and rhythm. ABDOMEN: Soft. No tenderness. LABS: Hemoglobin is 13.1, white count 11.0, BUN of 25, creatinine 0.49. DIAGNOSTIC IMPRESSION AND PLAN: Patient with vancomycin-resistant Enterococcus urinary tract infection, Enterococcus faecalis bacteremia. Underlying infection has been adequately treated. The patient has completed her antibiotic therapy. Will monitor her closely off antibiotic. White count today is slightly worse; slight leukocytosis, more likely steroid effect. Will monitor closely. Continue supportive care. MMODL / IJN: [id number] /
[2020-04-26 20:21] LABS: Glucose,Whole Blood 204 mg/dL (75-99)
[2020-04-26] MEDS: AMITRIPTYLINE HCL 50 MG TAB PO SCH (21:19)
[2020-04-26] MEDS: HYDROmorphone 1 MG/ML 1 ML SYRINGE IVP PRN (21:22)
[2020-04-26] MEDS: FLUCONAZOLE 100 MG TAB PO SCH (21:37)
[2020-04-27 07:37] LABS: Glucose,Whole Blood 99 mg/dL (75-99)
[2020-04-27 07:51] LABS: ALT 55 U/L (4-34); AST 30 U/L (14-36); African American GFR (CKD) >90 (>60 ml/min/1.73 sqM); Albumin 2.6 g/dL (3.5-5.0); Alkaline Phosphatase 67 U/L (38-126); Anion Gap 1 mmol/L; Blood Urea Nitrogen 28 mg/dL (7-17); Calcium 8.2 mg/dL (8.4-10.2); Carbon Dioxide 27 mmol/L (22-30); Chloride 104 mmol/L (98-107); Globulin 2.6 g/dL; Glucose 63 mg/dL (74-99); Non-African American GFR(CKD) >90 (>60 ml/min/1.73 sqM); Sodium 132 mmol/L (137-145); Total Bilirubin 0.5 mg/dL (0.2-1.3); Total Protein 5.2 g/dL (6.3-8.2)
[2020-04-27] MEDS: ASCORBIC ACID 500 MG TAB PO SCH ×2 (07:52→21:12)
[2020-04-27] MEDS: ENOXAPARIN 40 MG/0.4 ML SYRINGE SQ SCH (07:52)
[2020-04-27] MEDS: amLODIPine 5 MG TAB PO SCH ×2 (07:52→21:12)
[2020-04-27] MEDS: hydrALAZINE HCL 25 MG TAB PO SCH ×3 (07:52→21:13)
[2020-04-27] MEDS: CHOLECALCIFEROL 400 UNIT TAB PO SCH (07:52)
[2020-04-27] MEDS: methylPREDNISolone SOD SUCCI 40 MG/ML 1 ML VIAL IV SCH (07:53)
[2020-04-27] MEDS: ZINC SULFATE 220 MG CAP PO SCH (07:53)
[2020-04-27 07:55] LABS: Anisocytosis Slight; Basophils % (A) 0 %; Eosinophils # (A) 0.1 k/uL (0-0.7); Eosinophils % (A) 1 %; Hypochromasia Moderate; Lymphocytes # (A) 0.7 k/uL (1.0-4.8); Lymphocytes % (A) 7 %; MCH 27.6 pg (25.0-35.0); MCHC 31.3 g/dL (31.0-37.0); MCV 88.1 fL (80.0-100.0); Mean Platelet Volume 7.7; Monocytes # (A) 0.2 k/uL (0-1.0); Monocytes % (A) 2 %; Neutrophils # (A) 8.9 k/uL (1.3-7.7); Neutrophils % (A) 89 %; Platelet Count 255 k/uL (150-450); Poikilocytosis Moderate; RBC 2.25 m/uL (3.80-5.40); RDW 19.3 % (11.5-15.5); WBC 10.1 k/uL (3.8-10.6)
[2020-04-27] MEDS: PANTOPRAZOLE 40 MG TABLET PO SCH ×2 (07:55→21:12)
[2020-04-27] MEDS: SERTRALINE 100 MG TAB PO SCH (07:55)
[2020-04-27] MEDS: INSULIN ASPART (NovoLOG) 100 UNIT/ML VIAL SQ SCH ×4 (07:56→21:12)
[2020-04-27 08:22] LABS: HCT 19.9 % (34.0-46.0); HGB 6.2 gm/dL (11.4-16.0)
--- NOTE | 2020-04-27 09:01 | P.PN ---
Subjective Progress Note Date: 04/27/20 Principal diagnosis: Acute hypoxic respiratory failure Covid19 pneumonia Acute respiratory and metabolic acidosis Acute hepatitis/elevated liver enzymes Acute diastolic heart failure and fluid overload Chronic anemia Fibromyalgia Hypertension hypertensive cardiovascular disease 04/27/2020, patient seen eval examined sitting upright in chair breathing comfortably on 4 L oxygen, saturation is 96%, hemoglobin is 6.2 patient is being arranged for blood transfusion, down from 7.1 yesterday, 04/25/2020, patient seen evanson examined during rounds labs reviewed medications r eviewed care plan discussed, respiratory status remains stable, however during activity and exertion does drop down at 5 L oxygen saturation is mid 90s but with physical therapy dropped down to 80s, recommended before exertion oxygen to be bumped up to 8 L 04/24/2020, patient seen evanson examined during the rounds labs reviewed medications reviewed care plan discussed, respiratory status remains marginal now patient requires 8 L as he was noted to have significant dysphagia and desaturation during physical therapy into 70s, she is been settling down her sats most recent 9394% now 04/23/2020, patient seen eval examined labs reviewed medications reviewed care plan discussed, respiratory status remains stable, patient is now on 4 L sitting upright on the chair finished her breakfast appears very well awake and alert continue supportive care oxygen saturation is now 98% 04/22/2020, patient seen evanson examined during the rounds labs reviewed medications reviewed care plan discussed, respiratory status continued to be stable currently patient over a liter oxygen sitting upright on the bed breathing comfortably, oxygen demand however continued to be high, oxygen saturation 95-88%, 04/21/2020, patient seen evanson examined, slightly more short of breath appetite poor did not consume more than one fourth of tray, remains very weak, oxygen requirement increased to 8 L, somnolent but arousable, will decrease his steroid to once a day 04/20/2020, patient continued do well, oxygen is down to 6 L now from 7 L, patient appetite and mental status continued to improve will continue current p melissa of care 04/19/2020, patient seen evanson examined during the rounds labs reviewed medications reviewed, patient is now down to 8 L from 10 L, saturation is mid 90s, respiratory status stable, we'll continue titrated oxygen down as tolerated slowly 2-3 L in 24 hours as tolerated 04/18/2020, patient seen eval examined during the rounds labs reviewed medications reviewed respiratory status remains stable denies any chest pain, patient remains on high flow oxygen, saturation well, discussed was titrated down as tolerated, labs reviewed medications reviewed, currently patient is on 10 L 45% airvo 04/17/2020, patient seen eval examined more awake and alert breathing comfortably no obvious distress is present, oxygen being titrated down off of high flow and airvo, on 15 L high flow saturating low to mid 80s and dropped down some back on aerosolized oxygen, mental status more clear tolerating by mouth well extremely weak continued PT OT and supportive care 04/16/2020, patient seen eval examined during the rounds respiratory status continued to improve so as the mental status however is still on high flow air VO oxygen 04/15/2020, patient seen eval examined during the rounds labs reviewed medications reviewed care plan discussed, patient remains on high flow oxygen 15 L 70% oxygen saturation remains marginal low 90s to high 80s previously today noted to be 94%, patient has been tolerating by mouth well, has been moved down from the ICU labs from today reviewed slight hyponatremia noted otherwise fairly within normal limit patient remains on Lovenox along with daptomycin flucon azole, IV steroids, patient has finished usual therapy for covid19 pneumonia 04/14/2020, patient remains on 50% oxygen 70L, awake slightly confused, shortness of breath is not obvious hemodynamic status stable tolerating by mouth well patient will be moved out of the ICU when bed available 04/13/2020, patient seen eval examined during the rounds labs reviewed medications reviewed care plan discussed with the staff, respiratory status remains stable continued to be on the 75% oxygen 15 L high flow, remains afebrile remains on antibiotics patient will be transferred to [facility] with remote telemetry date on today 04/12/2020, patient seen eval examined during rounds labs reviewed medications reviewed, respiratory status remains unchanged, patient remains on 15 L 75% oxygen unable to titrate oxygen down, appetite continued to improve, patient able to swallow well, labs reviewed medications reviewed care plan discussed with the staff at length, patient can be moved out to [facility] with remote telemetry 04/11/2020, patient seen eval examined during evaluation patient noted to be more awake and alert compared to prior exam however patient remains on 15 L 75% aerosolized oxygen high flow, no obvious distress present patient remains afebrile, remains on broad-spectrum antibiotics and usual care for coronary 19 pneumonia April 10 2020 patient seen eval examined sitting upright on the bed breathing comfortably, patient remains on high flow oxygen 15 L 75%, swallow evaluation completed patient able to swallow well will start by mouth blood pressure problem remains an issue we will increase the dose of Norvasc continue oral hydralazine monitor blood pressure closely, absolute reviewed x-ray reviewed continued to show bilateral interstitial infiltrate predominantly in mid part and basis 04/09/2020, patient seen eval examined in the ICU, respiratory status remains marginal but stable, patient is on 80% aerosolized oxygen 15 L, saturation is 90%, more awake and alert, swallowing functions will be reassessed later on today by speech therapist, mental status changes agitated behavior and confusion remains an issue which causes blood pressure to go up as well, 04/08/2020, patient seen evanson examined during the rounds labs reviewed medications reviewed care plan discussed, patient remains on BiPAP 15/5 with 70% oxygen, oxygen saturation 94% more awake alert, will try high flow aerosolized oxygen, blood culture positive for gram positive cocci in chain, patient is on IV vancomycin he is following 04/07/2020, patient seen evanson examined during the rounds labs reviewed medications reviewed, mental status remains stable slightly improved however, patient intermittently get anxious and agitated, low-grade temperature 90 is present hemodynamically stable though, saturation is 90% to 93% on partial nonrebreather mask, chest x-ray remains stable, white cell count remains elevated, 04/06/2020, patient seen evanson examined during the rounds labs reviewed medications reviewed, patient remains off of ventilator, mental status slightly better today compared to last 24-48 hours less agitated awake oriented 1 now, remains on partial nonrebreather mask, saturation is 94%, LAD pressure slightly running on the higher side remains on IV hydralazine, oxygen saturation is 94% to 96%, 04/05/2020, patient seen evanson reexamined successfully weaned and extubated yesterday has been on supplemental oxygen 2-4 L, in the last 8-12 hours however decompensation in oxygenation status as well as patient even though awake but remains agitated appears to have a agitated delirium, does require Dilaudid at a regular interval, remains afebrile, oxygen saturation is 99% on 10 L nonre breather mask, patient cannot take by mouth medicines are listed IV, will try morphine as needed MATEUS Sousa, 04/04/2020, patient seen eval examined during the rounds labs reviewed medications reviewed care plan discussed, patient is awake now remains off of propofol since yesterday, does make intermittent eye contact, remains slightly withdrawn however, respiratory status stable, remains on assist control mode rate of 24, tidal volume is 450, +5 of PEEP, 40% oxygen, peak airway pressure stable, chest x-ray shows bilateral diffuse interstitial infiltrate stable ET tube and NG tube in PICC line, white cell count is 13,400, hemoglobin and hematocrit stable 9.4 and 31, arterial blood gases reviewed pH is 7.4 to pCO2 32 pO2 64, BUN/creatinine is 32 and 0.5, patient is reviewed Lovenox remains 2040 mg subcu twice a day on IV furosemide, Solu-Medrol is 60 mg IV every 6 we'll decrease it to every 12 04/03/2020, patient seen eval examined during rounds labs reviewed medications reviewed, care plan discussed, overall hemodynamically he remains stable blood pressure spiked up on hydralazine when necessary, seems to be helping, patient sedated with propofol drip 50 mics, attempts for weaning of protocol has been unsuccessful as patient becomes agitated, attempted Precedex drip has been un successful as well, current vent settings include assist control rate of 24 breathing 24, FiO2 is 40%, PEEP is 5, tidal volume is 450, chest x-ray stable ET tube with bilateral multifocal infiltrate with consolidation consistent with cold with 19 pneumonia not essentially much change from the prior x-ray, ET tube and NG tube was stable, patient is getting tube feed bolus feeding, labs including ABG chemistry reviewed 04/02/2020, patient seen eval examined during the rounds labs reviewed medicat ions reviewed care plan discussed, patient remains sedated with propofol on ventilator for full ventilator support, currently patient is on assist control mode rate Tuesday for breathing 24, tidal volume is 450, 5 of PEEP, 40% oxygen, propofol is 50 mics, chest x-ray from today reviewed continue show patchy bilateral infiltrate without any significant interval change, arterial blood gases revealed pH of 7.43 pCO2 32, C-reactive protein is down to 21, BUN/creatinine is 34/.49, white cell count and hemoglobin remained stable, medications reviewed, she remains on broad-spectrum antibiotic with cephapirin, Lovenox, gentle diuresis with Lasix, blood pressure control with IV hydralazine, patient remains on high-dose IV steroids, discussed with the staff at length, will stop the propofol drip and once patient is awake put on CPAP 5 pressure support of 5 gas after half an hour also check weaning parameters 04/01/2020, patient seen eval examined labs reviewed medications reviewed care plan discussed with the staff at length patient had a sedation holiday today she is arousable and awake follows simple commands with blood pressure went up becomes agitated anxious requiring a reinitiation of propofol drip, ventilator setting remains unchanged, patient is on rate of 24 tidal volume is 450, PEEP is 5, oxygen is 40%, chest x-ray from today reviewed remains overall stable with stable lines and tubes 03/31/2020, patient seen eval examined during the rounds labs reviewed medications reviewed care plan discussed, patient remains on full ventilator support, propofol was changed to Precedex but however patient becomes agitated so back on propofol when setting remains unchanged have been on assist control rate of 24, PEEP is 5, FiO2 is 40%, tidal volume of 450, care plan discussed with the staff at length critical care time 35 minutes 03/30/2020, patient seen eval examined during the rounds labs reviewed medications reviewed, remains sedated with propofol, current vent setting include his control rate of 24 breathing 24 tidal volume is 450, deep is 5 now, FiO2 is 40%, tolerating tube feed very well, chest x-ray reviewed slightly better but stable bilateral infiltrate consistent with atypical pneumonia, patient continued IVs very well with 20 mg Lasix daily, white cell count maco ined stable, with stable hemoglobin and however decreasing platelet count noted, dear blood gases revealed pH of 7.4 to pCO2 34 pO2 of 62, BUN/creatinine is 36 and 0.62, left he continue show downward trend, inflammatory markers reviewed still elevated but showing a downward trend 03/29/2020, patient seen eval examined during the rounds labs reviewed medications reviewed, care plan discussed with the nursing staff at length, patient has been on assist control rate of the 24 PEEP of 8 400 tidal volume 50% oxygen, ventilator has been adjusted with reduction in PEEP and oxygen, patient's saturation remained stable 91-92%, next step he is to stop propofol and reassess the mental status and if patient remains stable oxygen randolph and hemodynamics can do a CPAP pressure support trial in the meantime we'll continue IV steroids, antibiotics, CBC and ABG reviewed, today's chest x-ray showed bilateral interstitial infiltrate, predominantly at the bases, patient has been on Lasix 20 mg daily diuresing very well, critical care time 35 minutes 03/28/2020, patient seen eval examined during the rounds labs reviewed medications reviewed care plan discussed oxygen has been down to 40% now. The patient is PEEP of 8, otherwise ventilator setting remains stable, patient is scheduled for PICC line later on today, remains on propofol, remains on broad- spectrum antibiotics, labs from today has been reviewed hemoglobin is stable 7.9, d-dimer is 3.24, arterial blood gases stable pH is 7.41 pCO2 35 pO2 96, BUN/creatinine is 51 and 1.05, ferritin level remains more than 26,000, AST ALT continued decline however today is 367 and 558, C-reactive protein checked 69.5 her chest x-ray earlier than today remains there however appears to have slightly progressed 03/27/2020, patient seen eval examined during the rounds labs reviewed medications reviewed care plan discussed, propofol has been discontinued patient because very restless and anxious, we'll restart propofol, patient has been on full ventilator support assist control 24 tidal volume of 450, PEEP is 10, oxygen is 70%, arterial blood gases reviewed when lower the FiO2 to 60% now plan to bring down the FiO2 to 50% and PEEP of 8 next 24 hours, sputum and blood cultures reviewed no growth so far, chest x-ray performed today reviewed si gnificant improvement in infiltrates seen bilaterally, patient has a poor urine output throughout the night, 20 mg of Lasix was given put out 600 mL of urine patient continued to be on gentle hydration, remain on cefapime and Vanco, Lovenox Solu-Medrol multivitamin and vitamin C zinc and Lovenox, white cell count is stable 10,500 hemoglobin and hematocrit 7.2 and 24, general surgery has been following patient is considered to get EGD and colonoscopy once stable, arterial blood gas revealed pH of 7.39 pCO2 of 39 pO2 of 124, bicarb 25, liver enzymes continue to come down AST and ALT now is 944/809, hepatitis panel normal and nonreactive 03/26/2020, patient seen eval examined in the ICU care plan discussed with the staff, FiO2 has been down to 60%, patient remains on assist control tidal volume of 450, PEEP is 10, respiratory rate is 24 breathing with the respirator pH has been improved significantly, patient is making adequate urine chest x-ray compared with yesterday's x-ray some improvement have been noted, white cell count is 11,000, hemoglobin 7.9 which is stable, arterial blood gas improved to 7.39, pCO2 of 40, pO2 112, BUN/creatinine is 33/0.96, lactic acid was 5.9 down to 1.3 now, ferritin level noted to be 12,800, AST and ALT are 4014 100 with LDH over 21,500, today LFTs significantly improved AST is down to 2795 and ALT is 1222, pro calcitonin is 0.84, suspect some component of heart failure as well as pneumonia, will get an echocardiogram as well as start patient on broad-spectrum antibiotics with cefepime and Vanco Patient seen and evaluated examined in the emergency department, patient came into the ER from the office of Dr. Aleman due to progressive shortness of breath, patient has acute on chronic hypoxic respiratory failure on 4 L oxygen, also has issues associated with pneumonia presumed to be cold with 19, however, testing was negative, patient used to smoke in the remote past quit about 20-30 years ago due to severity or shortness of breath and hypoxia with saturation of 76% on 100% oxygen and respiratory distress patient was intubated due to poor tolerance on BiPAP, patient Covid testing came back positive, chest x-ray showing diffuse infiltrate she also has been noted to have elevated liver enzymes due to elevated liver enzymes will not start IV REMdesivir, Initial ABG pH is 7.18, pCO2 is 63 pO2 was only 33 Objective - Vital Signs Vital signs: Vital Signs Temp 97.4 F L 04/27/20 04:25 Pulse 68 04/27/20 04:25 Resp 20 04/27/20 04:25 BP 102/61 04/27/20 04:25 Pulse Ox 96 04/27/20 04:25 Intake & Output 04/26/20 04/27/20 04/27/20 18:59 06:59 18:59 Intake Total 240 400 Output Total 400 200 200 Balance -160 200 -200 Weight 70.5 kg Intake: Intake, IV Titration 300 Amount Sodium Chloride 0.9% 1, 300 000 ml @ 50 mls/hr IV . Q20H [facility] Rx#:[id number] Oral 240 100 Output: Urine 400 200 200 Uretheral (Quick) 200 200 200 Other: Voiding Method Indwelling Catheter Indwelling Catheter - Exam Patient on 80% oxygen 15 L aerosolized saturation is 90% to 92% - Constitutional General appearance: average body habitus, mild distress, restless intermittently agitated - EENT Ears: bilateral: normal - Neck Carotids: bilateral: upstroke normal Thyroid: bilateral: normal size - Respiratory Respiratory: bilateral: diminished - Cardiovascular Rhythm: regular Heart sounds: normal: S1, S2 - Gastrointestinal General gastrointestinal: normal bowel sounds Patient is relatively more awake and alert compared to yesterday exam - Labs CBC & Chem 7: 04/27/20 07:00 04/27/20 07:00 Labs: Abnormal Lab Results - Last 24 Hours (Table) 04/26/20 04/26/20 04/26/20 Range/Units 11:46 17:06 20:19 RBC (3.80-5.40) m/uL Hgb (11.4-16.0) gm/dL Hct (34.0-46.0) % RDW (11.5-15.5) % Neutrophils # (1.3-7.7) k/uL Lymphocytes # (1.0-4.8) k/uL Sodium (137-145) mmol/L BUN (7-17) mg/dL Glucose (74-99) mg/dL POC Glucose (mg/dL) 244 H 297 H 204 H (75-99) mg/dL Calcium (8.4-10.2) mg/dL ALT (4-34) U/L Total Protein (6.3-8.2) g/dL Albumin (3.5-5.0) g/dL 04/27/20 04/27/20 Range/Units 07:00 07:00 RBC 2.25 L (3.80-5.40) m/uL Hgb 6.2 L* (11.4-16.0) gm/dL Hct 19.9 L* (34.0-46.0) % RDW 19.3 H (11.5-15.5) % Neutrophils # 8.9 H (1.3-7.7) k/uL Lymphocytes # 0.7 L (1.0-4.8) k/uL Sodium 132 L (137-145) mmol/L BUN 28 H (7-17) mg/dL Glucose 63 L (74-99) mg/dL POC Glucose (mg/dL) (75-99) mg/dL Calcium 8.2 L (8.4-10.2) mg/dL ALT 55 H (4-34) U/L Total Protein 5.2 L (6.3-8.2) g/dL Albumin 2.6 L (3.5-5.0) g/dL Assessment and Plan Assessment: Anemia of chronic disease Generalized weakness and medical debility Gram-positive bacteremia and VRE has been noted in urine blood on daptomycin Agitated delirium along with metabolic encephalopathy likely multifactorial including Covid 19 pneumonia, is being in ICU, for intubation long period time sepsis, slowly improving Acute hypoxic respiratory failure Covid19 pneumonia Thrombocytopenia stable Acute hepatitis/elevated liver enzymes Acute diastolic heart failure Chronic anemia Fibromyalgia Hypertension hypertensive cardiovascular disease Plan: Agree with blood transfusion 1 unit packed RBC Continue supportive care, oxygen taper as tolerated Continue daptomycin IV steroids, taper as tolerated Further recommendations pending plan of care as per clinical response of patient Continue anticoagulation with Lovenox PT OT evaluation Monitor labs and sodium closely Time with Patient: Greater than 30
[2020-04-27 11:37] LABS: Glucose,Whole Blood 166 mg/dL (75-99)
--- NOTE | 2020-04-27 13:04 | P.PN ---
Subjective Progress Note Date: 04/27/20 This is a pleasant 69 years old female who has prolonged course in the hospital for more than 2 weeks where originally was admitted for worsening respiratory symptoms related to her covid 19 pneumonia, patient has been followed closely by pulmonary service and she remains on Lovenox, Solu-Medrol and IV hydration. However she still on 50 L of oxygen via high flow nasal cannula. Patient had swollen the problem but eventually found is able to swallow today and she was started on oral medication. Her blood pressure was on the high side and Norvasc increased to 5 mg twice daily and hydralazine to 75 mg 3 times a day. Also surgery team are following the case for acute blood loss for suspected GI bleed, they are planning to do EGD and colonoscopy once she is more clinically stable to tolerate such procedures Patient is also followed closely by ID team being covered by antibiotics with Diflucan and IV vancomycin for positive blood culture with enterococcus faecalis with coagulase-negative staph, suspected to be related to IV PICC line which was discontinued went and tip was sent for culture which is still pending If her enzymes were initially elevated on admission and due to her Covid infection and cholelithiasis, currently they are close to normal. Also patient found hemangioma rather than liver mass for GI team evaluation, however will need follow-up as an outpatient Covering for Dr. Aleman 04/26/2020 Patient is seen and evaluated continues to be closely monitored. Patient was admitted for respiratory failure related to Covid 19 pneumonia and currently remains on a medical surgical unit being closely monitored. Patient is presently on 4-1/2 L via nasal cannula and tolerating. Patient continues to be weak requiring assistance and will be going to ECF once stabilized. Patient's hemoglobin continues to drop and is currently 7.1 today from 7.7 most likely related to frequent blood draws and Lovenox. Multiple medical consultations following including surgery, infectious disease, and pulmonary. Plans for possible endoscopy once patient's respiratory status is better improved. No active bleeding noted. Patient denies any abdominal discomfort, nausea, or vomiting and has been tolerating diet. Encourage the patient to continue to increase oral intake and increase activity as tolerated. Patient does have an incentive spirometer at the bedside and instructed the patient to continue with the use of this at least 10 times every hour while awake. Patient does fatigue easily although is alert and oriented and responding more appropriately and awake. Lovenox has been adjusted and patient is also maintained on vitamin C and D supplements along with IV steroids. IV antibiotics recently discontinued and patient is being closely monitored off IV antibiotic therapy. 04/27/2020 Patient is seen in follow-up with no acute overnight issues. Patient remains on 4 L and tolerating well. Continue to encourage incentive spirometer at least 10 times every hour while awake and continue to wean FiO2 as tolerated. Hemoglobin this morning was found to be 6.2 and currently awaiting a unit of PRBCs. No active bleeding noted per patient or nursing staff. Sodium slightly improved at 132 with a potassium of 4.0 and current creatinine is 0.53. Sugars on the lower side and will continue to monitor closely. Surgery is following with the discussion of possible endoscopy to evaluate for GI bleed and will need to reevaluate once patient is stable. Will repeat am labs and monitor closely. Review of systems: Constitutional: no reports of fatigue, fever, or chills Cardiovascular: No reports of chest pain or palpitations Respiratory: Reports continued shortness of breath although feels it continues to improve GI: No reports of nausea, vomiting, or diarrhea : No reports of dysuria or retention Neurovascular: reports weakness All medications have been reviewed Active Medications Acetaminophen (Acetaminophen Tab 500 Mg Tab) 1,000 mg PO Q6HR PRN PRN Reason: Fever>101 Last Admin: 04/19/20 01:51 Dose: 1,000 mg Documented by: Alprazolam (Alprazolam 0.25 Mg Tab) 0.25 mg PO QID PRN PRN Reason: Anxiety Last Admin: 04/21/20 04:10 Dose: 0.25 mg Documented by: Amitriptyline HCl (Amitriptyline Hcl 50 Mg Tab) 50 mg PO HS [facility] Last Admin: 04/26/20 21:19 Dose: 50 mg Documented by: Amlodipine Besylate (Amlodipine 5 Mg Tab) 5 mg PO BID [facility] Last Admin: 04/27/20 07:52 Dose: 5 mg Documented by: Ascorbic Acid (Ascorbic Acid 500 Mg Tab) 500 mg PO BID [facility] Last Admin: 04/27/20 07:52 Dose: 500 mg Documented by: Cholecalciferol (Cholecalciferol 400 Unit Tab) 400 unit PO DAILY [facility] Last Admin: 04/27/20 07:52 Dose: 400 unit Documented by: Enoxaparin Sodium (Enoxaparin 40 Mg/0.4 Ml Syringe) 40 mg SQ DAILY [facility] Last Admin: 04/27/20 07:52 Dose: 40 mg Documented by: Fluconazole (Fluconazole 100 Mg Tab) 100 mg PO HS [facility] Last Admin: 04/26/20 21:37 Dose: 100 mg Documented by: Haloperidol Lactate (Haloperidol Lactate 5 Mg/Ml 1 Ml Vial) 2.5 mg IVP Q8HR PRN PRN Reason: Agitation or Acute Psychosis Last Admin: 04/14/20 04:41 Dose: 2.5 mg Documented by: Hydralazine HCl (Hydralazine Hcl 25 Mg Tab) 75 mg PO TID [facility] Last Admin: 04/27/20 07:52 Dose: 75 mg Documented by: Hydromorphone HCl (Hydromorphone 1 Mg/Ml 1 Ml Syringe) 1 mg IVP Q2H PRN PRN Reason: Pain Last Admin: 04/26/20 21:22 Dose: 1 mg Documented by: Sodium Chloride (Saline 0.9%) 1,000 mls @ 50 mls/hr IV .Q20H [facility] Last Admin: 04/26/20 17:23 Dose: 50 mls/hr Documented by: Insulin Aspart (Insulin Aspart (Novolog) 100 Unit/Ml Vial) 0 unit SQ ACHS [facility]; Protocol Last Admin: 04/27/20 07:56 Dose: Not Given Documented by: Methylprednisolone Sodium Succinate (Methylprednisolone Sod Succi 40 Mg/Ml 1 Ml Vial) 40 mg IV DAILY [facility] Last Admin: 04/27/20 07:53 Dose: 40 mg Documented by: Naloxone HCl (Naloxone 0.4 Mg/Ml 1 Ml Vial) 0.2 mg IV Q2M PRN PRN Reason: Opioid Reversal Pantoprazole Sodium (Pantoprazole 40 Mg Tablet) 40 mg PO BID [facility] Last Admin: 04/27/20 07:55 Dose: 40 mg Documented by: Ropinirole HCl (Ropinirole Hcl 1 Mg Tab) 1 mg PO TID [facility] Last Admin: 04/27/20 07:54 Dose: 1 mg Documented by: Senna (Sennosides 8.6 Mg Tab) 8.6 mg PO BID PRN PRN Reason: Constipation Last Admin: 04/24/20 20:15 Dose: 8.6 mg Documented by: Sertraline HCl (Sertraline 100 Mg Tab) 150 mg PO DAILY [facility] Last Admin: 04/27/20 07:55 Dose: 150 mg Documented by: Sodium Chloride (Sodium Chloride 0.9% Flush 10 Ml Syringe) 10 ml IV Q4HR PRN PRN Reason: PICC Line Sodium Chloride (Sodium Chloride 0.9% Flush 10 Ml Syringe) 10 ml IV WEEKLY [facility] Last Admin: 04/25/20 08:25 Dose: 10 ml Documented by: Sodium Chloride (Sodium Chloride 0.9% Flush 10 Ml Syringe) 20 ml IV Q4HR PRN PRN Reason: PICC Line Zinc Sulfate (Zinc Sulfate 220 Mg Cap) 220 mg PO DAILY [facility] Last Admin: 04/27/20 07:53 Dose: 220 mg Documented by: Objective - Vital Signs Vital signs: Vital Signs Temp 97.4 F L 04/27/20 04:25 Pulse 68 04/27/20 04:25 Resp 20 04/27/20 04:25 BP 102/61 04/27/20 04:25 Pulse Ox 96 04/27/20 04:25 Intake & Output 04/26/20 04/27/20 04/27/20 18:59 06:59 18:59 Intake Total 240 400 Output Total 400 200 Balance -160 200 Weight 70.5 kg Intake: Intake, IV Titration 300 Amount Sodium Chloride 0.9% 1, 300 000 ml @ 50 mls/hr IV . Q20H [facility] Rx#:[id number] Oral 240 100 Output: Urine 400 200 Uretheral (Quick) 200 200 Other: Voiding Method Indwelling Catheter Indwelling Catheter - Exam GENERAL: The patient is alert and oriented x2-3, general malaise. pale. awake and responsive today sitting up in bed. Temp is 97.5 F, pulse is 68, respirations are 20, blood pressure is 102/61, oxygen saturation is 96% on 4 L nasal cannula HEENT: Pupils are round and equally reacting to light. EOMI. No scleral icterus. No conjunctival pallor. Normocephalic, atraumatic. No pharyngeal erythema. No thyromegaly. CARDIOVASCULAR: S1 and S2 muffled PULMONARY: Diminished breath sounds bilaterally no wheezing or rhonchi noted ABDOMEN: Soft, nontender, nondistended, normoactive bowel sounds. No palpable organomegaly. MUSCULOSKELETAL: No joint swelling or deformity. EXTREMITIES: No cyanosis, clubbing, or pedal edema. NEUROLOGICAL: Gross neurological examination did not reveal any focal deficits. Diffusely weak SKIN: No rashes. no petechiae. - Labs CBC & Chem 7: 04/27/20 07:00 04/27/20 07:00 Labs: Abnormal Lab Results - Last 24 Hours (Table) 04/26/20 04/26/20 04/26/20 Range/Units 07:43 07:43 11:46 WBC 11.0 H (3.8-10.6) k/uL RBC 2.49 L (3.80-5.40) m/uL Hgb 7.1 L (11.4-16.0) gm/dL Hct 21.4 L (34.0-46.0) % RDW 18.5 H (11.5-15.5) % Neutrophils # 9.6 H (1.3-7.7) k/uL Lymphocytes # 0.8 L (1.0-4.8) k/uL Sodium 131 L (137-145) mmol/L BUN 25 H (7-17) mg/dL Creatinine 0.49 L (0.52-1.04) mg/dL Glucose 101 H (74-99) mg/dL POC Glucose (mg/dL) 244 H (75-99) mg/dL Calcium 7.7 L (8.4-10.2) mg/dL 04/26/20 04/26/20 Range/Units 17:06 20:19 WBC (3.8-10.6) k/uL RBC (3.80-5.40) m/uL Hgb (11.4-16.0) gm/dL Hct (34.0-46.0) % RDW (11.5-15.5) % Neutrophils # (1.3-7.7) k/uL Lymphocytes # (1.0-4.8) k/uL Sodium (137-145) mmol/L BUN (7-17) mg/dL Creatinine (0.52-1.04) mg/dL Glucose (74-99) mg/dL POC Glucose (mg/dL) 297 H 204 H (75-99) mg/dL Calcium (8.4-10.2) mg/dL Assessment and Plan Assessment: Acute respiratory distress syndrome, Covid 19 pneumonia Acute hypoxic respiratory failure secondary to Covid 19 pneumonia Positive blood culture with bacteremia with with Enterococcus faecalis and coagulase negative staph, secondary to PICC line, resolved possible sepsis, present on admission, secondary to above Acute GI bleed, no active bleeding noted, hgb is 6.5 today and awaiting 1 unit of PRBC Uncontrolled hypertension with urgency Elevated liver enzymes with cholelithiasis, improved and patient is asymptomatic history of Fibromyalgia DVT prophylaxis: Subcutaneous Lovenox GI prophylaxis Full code Recommendations and discussion: Recommend continue current medications, management, and symptomatic treatment. Multiple medical consultations following including infectious disease, and pulmonary. No active bleeding noted at this time. Hemoglobin is 6.5 today and will continue to monitor closely. Awaiting 1 unit of PRBC to transfuse. No plans for endoscopic interventions at this time although there has been discussion about possible endoscopy once respiratory status more stable if patie nt continues to have drops in hemoglobin. Surgery to reevaluate. Lovenox has been adjusted due to drop in hemoglobin. Patient is off IV antibiotics and being monitored closely. Infectious disease is following. Continue to wean FiO2 as tolerated. Patient currently on 4 L via nasal cannula. Incentive spirometer reinforced patient instructed to continue using 10 times every hour while awake. PT/OT following as she continues to be quite weak. Patient needs continued assistance with meals and dysphasia diet along with head of the bed elevated 30-45 at all times. Will repeat a.m. labs. Due to multiple complex medical issues, prognosis is guarded. Further recommendations to follow.
[2020-04-27] MEDS: HYDROmorphone 1 MG/ML 1 ML SYRINGE IVP PRN (14:38)
[2020-04-27 17:08] LABS: Glucose,Whole Blood 190 mg/dL (75-99)
[2020-04-27] MEDS: SODIUM CHLORIDE 0.9% 1,000 ML IV SCH (18:27)
[2020-04-27 20:44] LABS: Glucose,Whole Blood 196 mg/dL (75-99)
[2020-04-27] MEDS: AMITRIPTYLINE HCL 50 MG TAB PO SCH (21:12)
[2020-04-27] MEDS: FLUCONAZOLE 100 MG TAB PO SCH (21:12)
--- NOTE | 2020-04-27 22:10 | PN ---
PROGRESS NOTE DATE OF SERVICE: 04/27/2020 REASON FOR FOLLOWUP: 1. Leukocytosis. 2. VRE UTI, Enterococcus faecalis bacteremia. INTERVAL HISTORY: The patient is currently afebrile. The patient is breathing comfortably. She is more awake and alert. Denies having any chest pain or cough. No nausea, vomiting, abdominal pain or diarrhea. PHYSICAL EXAMINATION: Her blood pressure is 111/62 with a pulse of 72, temperature 98.1. She is 93% on 3 L nasal cannula. General description is an elderly female lying in bed in no distress. RESPIRATORY SYSTEM: Unlabored breathing. Clear to auscultation anteriorly. HEART: S1, S2. Regular rate and rhythm. ABDOMEN: Soft. No tenderness. LABS: White count normal at 10.1, hemoglobin is down to 6.2. DIAGNOSTIC IMPRESSION AND PLAN: Patient admitted to hospital with respiratory failure with pneumonia that has been treated. Subsequently did have a component of Enterococcus faecalis bacteremia and VRE UTI that has been adequately treated. The patient is currently being monitored closely off antibiotic therapy. White count normal. Continue supportive care. MMODL / IJN: [id number] /
[2020-04-28] MEDS: SODIUM CHLORIDE 0.9% 1,000 ML IV SCH (05:27)
[2020-04-28 07:28] LABS: Glucose,Whole Blood 116 mg/dL (75-99)
[2020-04-28] MEDS: INSULIN ASPART (NovoLOG) 100 UNIT/ML VIAL SQ SCH ×4 (07:32→22:13)
[2020-04-28] MEDS: SERTRALINE 100 MG TAB PO SCH (09:38)
[2020-04-28] MEDS: ASCORBIC ACID 500 MG TAB PO SCH ×2 (09:38→22:10)
[2020-04-28] MEDS: ENOXAPARIN 40 MG/0.4 ML SYRINGE SQ SCH (09:38)
[2020-04-28] MEDS: methylPREDNISolone SOD SUCCI 40 MG/ML 1 ML VIAL IV SCH (09:39)
[2020-04-28] MEDS: ZINC SULFATE 220 MG CAP PO SCH (09:39)
[2020-04-28] MEDS: CHOLECALCIFEROL 400 UNIT TAB PO SCH (09:39)
[2020-04-28] MEDS: PANTOPRAZOLE 40 MG TABLET PO SCH ×2 (09:39→22:10)
[2020-04-28] MEDS: amLODIPine 5 MG TAB PO SCH ×2 (09:44→22:12)
[2020-04-28] MEDS: hydrALAZINE HCL 25 MG TAB PO SCH ×4 (09:44→22:20)
--- NOTE | 2020-04-28 11:02 | P.PN ---
<Ana Parks - Last Filed: 04/28/20 10:57> Subjective Progress Note Date: 04/28/20 CHIEF COMPLAINT: GI bleed HISTORY OF PRESENT ILLNESS: Patient has had prolonged hospitalization with respiratory failure due to Covid 19 infection. She also has enterococcus and VRE UTI and enterococcus bacteremia. Surgical service is following for patient's GI bleed and anemia. Patient has had no active bleeding. Hemoglobin was down to 6.2 yesterday she received 1 unit of blood. Her repeat CBC is pending. She is requiring 4 L of oxygen at 91%. Per nursing staff patient is very weak she is requiring the use of a [place] lift. Patient is being evaluated for possible rehab placement. Patient is also had poor appetite. Lovenox dose had been adjusted due to patient's drop in hemoglobin from twice a day to once a day. PHYSICAL EXAM: VITAL SIGNS: Reviewed. GENERAL: Well-developed in no acute distress. HEENT: No sclera icterus. Extraocular movements grossly intact. Moist buccal mucosa. Head is atraumatic, normocephalic. ABDOMEN: Soft. Nondistended. Nontender. NEUROLOGIC: Alert and orientated. Cranial nerves II through XII grossly intact ASSESSMENT: 1. Acute on chronic blood loss anemia due to possible GI source. Patient currently not having any active bleeding. 3. Elevated liver enzymes with large gallstone present on abdominal ultrasound. LFTs are trending down 4. Acute hypoxic respiratory failure due to COVID 19 infection requiring to be intubated. Patient was successfully extubated on 04/04/2020 5. Constipation Plan: -Recommend upper and lower endoscopy when patient is more stable -Continue to monitor patient's hemoglobin -Continue to monitor for active bleeding -Continue Protonix -Continue supportive care Physician Brazing Machine [employer]ter note has been reviewed by physician. Signing provider agrees with the documented findings, assessment, and plan of care. Objective - Vital Signs Vital signs: Vital Signs Temp 97.5 F L 04/28/20 05:00 Pulse 73 04/28/20 05:00 Resp 18 04/28/20 05:00 BP 104/63 04/28/20 05:00 Pulse Ox 91 L 04/28/20 05:00 Intake & Output 04/27/20 04/28/20 04/28/20 18:59 06:59 18:59 Intake Total 550 500 Output Total 1050 300 Balance -500 200 Weight 70.5 kg 71 kg Intake: Intake, IV Titration 300 Amount Sodium Chloride 0.9% 1, 300 000 ml @ 50 mls/hr IV . Q20H [facility] Rx#:[id number] Oral 240 200 Blood Product 310 Rc As-1 Unit 310 [id number] Output: Urine 1050 300 Uretheral (Quick) 400 Other: Voiding Method Indwelling Catheter Indwelling Catheter Indwelling Catheter # Bowel Movements 0 - Labs CBC & Chem 7: 04/27/20 07:00 04/27/20 07:00 Labs: Abnormal Lab Results - Last 24 Hours (Table) 04/27/20 04/27/20 04/27/20 Range/Units 08:47 11:36 17:06 POC Glucose (mg/dL) 166 H 190 H (75-99) mg/dL Crossmatch See Detail 04/27/20 04/28/20 Range/Units 20:42 07:25 POC Glucose (mg/dL) 196 H 116 H (75-99) mg/dL Crossmatch <William Henry - Last Filed: 04/28/20 13:57> Subjective As above. Patient with recurrent anemia during this hospital stay. Patient with previous diagnosis of GI bleed. Patient improving from a pulmonary standpoint however still feels very weak. She is not interested in endoscopy currently. We'll discuss further with her primary. Objective - Vital Signs Vital signs: Vital Signs Temp 97.5 F L 04/28/20 05:00 Pulse 73 04/28/20 05:00 Resp 18 04/28/20 05:00 BP 104/63 04/28/20 05:00 Pulse Ox 91 L 04/28/20 05:00 Intake & Output 04/27/20 04/28/20 04/28/20 18:59 06:59 18:59 Intake Total 550 500 Output Total 1050 300 Balance -500 200 Weight 70.5 kg 71 kg Intake: Intake, IV Titration 300 Amount Sodium Chloride 0.9% 1, 300 000 ml @ 50 mls/hr IV . Q20H [facility] Rx#:[id number] Oral 240 200 Blood Product 310 Rc As-1 Unit 310 [id number] Output: Urine 1050 300 Uretheral (Quick) 400 Other: Voiding Method Indwelling Catheter Indwelling Catheter Indwelling Catheter # Bowel Movements 0 - Labs CBC & Chem 7: 04/27/20 07:00 04/27/20 07:00 Labs: Abnormal Lab Results - Last 24 Hours (Table) 04/27/20 04/27/20 04/28/20 Range/Units 17:06 20:42 07:25 POC Glucose (mg/dL) 190 H 196 H 116 H (75-99) mg/dL 04/28/20 Range/Units 11:25 POC Glucose (mg/dL) 320 H (75-99) mg/dL Assessment and Plan (1) GI bleed Current Visit: Yes Status: Acute Code(s): K92.2 - GASTROINTESTINAL HEMORRHAGE, UNSPECIFIED SNOMED Code(s): 47468371
[2020-04-28 11:29] LABS: Glucose,Whole Blood 320 mg/dL (75-99)
--- NOTE | 2020-04-28 11:33 | P.PN ---
Subjective Progress Note Date: 04/28/20 Principal diagnosis: Acute hypoxic respiratory failure Covid19 pneumonia Acute respiratory and metabolic acidosis Acute hepatitis/elevated liver enzymes Acute diastolic heart failure and fluid overload Chronic anemia Fibromyalgia Hypertension hypertensive cardiovascular disease 04/28/2020, patient is sleeping comfortably on 4 L oxygen, oxygen saturation is gradually being titrated down patient continue to get physical therapy as well her in physical therapy advice to increase oxygen before him, status post her one-year of packed RBC blood transfusion 04/27/2020, patient seen eval examined sitting upright in chair breathing comfortably on 4 L oxygen, saturation is 96%, hemoglobin is 6.2 patient is being arranged for blood transfusion, down from 7.1 yesterday, 04/25/2020, patient seen eval examined during rounds labs reviewed medications reviewed care plan discussed, respiratory status remains stable, however during activity and exertion does drop down at 5 L oxygen saturation is mid 90s but with physical therapy dropped down to 80s, recommended before exertion oxygen to be bumped up to 8 L 04/24/2020, patient seen eval examined during the rounds labs reviewed medications reviewed care plan discussed, respiratory status remains marginal now patient requires 8 L as he was noted to have significant dysphagia and desaturation during physical therapy into 70s, she is been settling down her sats most recent 9394% now 04/23/2020, patient seen eval examined labs reviewed medications reviewed care plan discussed, respiratory status remains stable, patient is now on 4 L sitting upright on the chair finished her breakfast appears very well awake and alert continue supportive care oxygen saturation is now 98% 04/22/2020, patient seen eval examined during the rounds labs reviewed medications reviewed care plan discussed, respiratory status continued to be stable currently patient over a liter oxygen sitting upright on the bed breathing comfortably, oxygen demand however continued to be high, oxygen saturation 95-88%, 04/21/2020, patient seen eval examined, slightly more short of breath appetite poor did not consume more than one fourth of tray, remains very weak, oxygen requirement increased to 8 L, somnolent but arousable, will decrease his steroid to once a day 04/20/2020, patient continued do well, oxygen is down to 6 L now from 7 L, patient appetite and mental status continued to improve will continue current plan of care 04/19/2020, patient seen eval examined during the rounds labs reviewed medications reviewed, patient is now down to 8 L from 10 L, saturation is mid 90s, respiratory status stable, we'll continue titrated oxygen down as tolerated slowly 2-3 L in 24 hours as tolerated 04/18/2020, patient seen eval examined during the rounds labs reviewed medications reviewed respiratory status remains stable denies any chest pain, patient remains on high flow oxygen, saturation well, discussed was titrated down as tolerated, labs reviewed medications reviewed, currently patient is on 10 L 45% airvo 04/17/2020, patient seen eval examined more awake and alert breathing comfortably no obvious distress is present, oxygen being titrated down off of high flow and airvo, on 15 L high flow saturating low to mid 80s and dropped down some back on aerosolized oxygen, mental status more clear tolerating by mouth well extremely weak continued PT OT and supportive care 04/16/2020, patient seen eval examined during the rounds respiratory status continued to improve so as the mental status however is still on high flow air VO oxygen 04/15/2020, patient seen eval examined during the rounds labs reviewed medications reviewed care plan discussed, patient remains on high flow oxygen 15 L 70% oxygen saturation remains marginal low 90s to high 80s previously today noted to be 94%, patient has been tolerating by mouth well, has been moved down from the ICU labs from today reviewed slight hyponatremia noted otherwise fairly within normal limit patient remains on Lovenox along with daptomycin fluconazole, IV steroids, patient has finished usual therapy for covid19 pneumonia 04/14/2020, patient remains on 50% oxygen 70L, awake slightly confused, shortness of breath is not obvious hemodynamic status stable tolerating by mouth well patient will be moved out of the ICU when bed available 04/13/2020, patient seen eval examined during the rounds labs reviewed medications reviewed care plan discussed with the staff, respiratory status remains stable continued to be on the 75% oxygen 15 L high flow, remains afebrile remains on antibiotics patient will be transferred to [facility] with remote telemetry date on today 04/12/2020, patient seen eval examined during rounds labs reviewed medications reviewed, respiratory status remains unchanged, patient remains on 15 L 75% oxygen unable to titrate oxygen down, appetite continued to improve, patient able to swallow well, labs reviewed medications reviewed care plan discussed with the staff at length, patient can be moved out to [facility] with remote telemetry 04/11/2020, patient seen eval examined during evaluation patient noted to be more awake and alert compared to prior exam however patient remains on 15 L 75% aerosolized oxygen high flow, no obvious distress present patient remains afebrile, remains on broad-spectrum antibiotics and usual care for coronary 19 pneumonia April 10 2020 patient seen eval examined sitting upright on the bed breathing comfortably, patient remains on high flow oxygen 15 L 75%, swallow evaluation completed patient able to swallow well will start by mouth blood pressure problem remains an issue we will increase the dose of Norvasc continue oral hydralazine monitor blood pressure closely, absolute reviewed x-ray reviewed continued to show bilateral interstitial infiltrate predominantly in mid part and basis 04/09/2020, patient seen eval examined in the ICU, respiratory status remains marginal but stable, patient is on 80% aerosolized oxygen 15 L, saturation is 90%, more awake and alert, swallowing functions will be reassessed later on today by speech therapist, mental status changes agitated behavior and confusion remains an issue which causes blood pressure to go up as well, 04/08/2020, patient seen eval examined during the rounds labs reviewed medications reviewed care plan discussed, patient remains on BiPAP 15/5 with 70% oxygen, oxygen saturation 94% more awake alert, will try high flow aerosolized oxygen, blood culture positive for gram positive cocci in chain, patient is on IV vancomycin he is following 04/07/2020, patient seen eval examined during the rounds labs reviewed medications reviewed, mental status remains stable slightly improved however, patient intermittently get anxious and agitated, low-grade temperature 90 is present hemodynamically stable though, saturation is 90% to 93% on partial nonrebreather mask, chest x-ray remains stable, white cell count remains elevated, 04/06/2020, patient seen eval examined during the rounds labs reviewed medications reviewed, patient remains off of ventilator, mental status slightly better today compared to last 24-48 hours less agitated awake oriented 1 now, remains on partial nonrebreather mask, saturation is 94%, LAD pressure slightly running on the higher side remains on IV hydralazine, oxygen saturation is 94% to 96%, 04/05/2020, patient seen eval reexamined successfully weaned and extubated yesterday has been on supplemental oxygen 2-4 L, in the last 8-12 hours however decompensation in oxygenation status as well as patient even though awake but remains agitated appears to have a agitated delirium, does require Dilaudid at a regular interval, remains afebrile, oxygen saturation is 99% on 10 L nonrebreather mask, patient cannot take by mouth medicines are listed IV, will try morphine as needed DC Dilaudid, 04/04/2020, patient seen eval examined during the rounds labs reviewed medications reviewed care plan discussed, patient is awake now remains off of propofol since yesterday, does make intermittent eye contact, remains slightly withdrawn however, respiratory status stable, remains on assist control mode rate of 24, tidal volume is 450, +5 of PEEP, 40% oxygen, peak airway pressure stable, chest x-ray shows bilateral diffuse interstitial infiltrate stable ET tube and NG tube in PICC line, white cell count is 13,400, hemoglobin and hematocrit stable 9.4 and 31, arterial blood gases reviewed pH is 7.4 to pCO2 32 pO2 64, BUN/creatinine is 32 and 0.5, patient is reviewed Lovenox remains 2040 mg subcu twice a day on IV furosemide, Solu-Medrol is 60 mg IV every 6 we'll decrease it to every 04/03/2020, patient seen eval examined during rounds labs reviewed medications reviewed, care plan discussed, overall hemodynamically he remains stable blood pressure spiked up on hydralazine when necessary, seems to be helping, patient sedated with propofol drip 50 mics, attempts for weaning of protocol has been unsuccessful as patient becomes agitated, attempted Precedex drip has been unsuccessful as well, current vent settings include assist control rate of 24 breathing 24, FiO2 is 40%, PEEP is 5, tidal volume is 450, chest x-ray stable ET tube with bilateral multifocal infiltrate with consolidation consistent with cold with 19 pneumonia not essentially much change from the prior x-ray, ET tube and NG tube was stable, patient is getting tube feed bolus feeding, labs including ABG chemistry reviewed 04/02/2020, patient seen eval examined during the rounds labs reviewed medications reviewed care plan discussed, patient remains sedated with propofol on ventilator for full ventilator support, currently patient is on assist control mode rate Tuesday for breathing 24, tidal volume is 450, 5 of PEEP, 40% oxygen, propofol is 50 mics, chest x-ray from today reviewed continue show patchy bilateral infiltrate without any significant interval change, arterial blood gases revealed pH of 7.43 pCO2 32, C-reactive protein is down to 21, BUN/creatinine is 34/.49, white cell count and hemoglobin remained stable, medications reviewed, she remains on broad-spectrum antibiotic with cephapirin, Lovenox, gentle diuresis with Lasix, blood pressure control with IV hydralazine, patient remains on high-dose IV steroids, discussed with the staff at length, will stop the propofol drip and once patient is awake put on CPAP 5 pressure support of 5 gas after half an hour also check weaning parameters 04/01/2020, patient seen eval examined labs reviewed medications reviewed care plan discussed with the staff at length patient had a sedation holiday today she is arousable and awake follows simple commands with blood pressure went up becomes agitated anxious requiring a reinitiation of propofol drip, ventilator setting remains unchanged, patient is on rate of 24 tidal volume is 450, PEEP is 5, oxygen is 40%, chest x-ray from today reviewed remains overall stable with stable lines and tubes 03/31/2020, patient seen eval examined during the rounds labs reviewed medications reviewed care plan discussed, patient remains on full ventilator support, propofol was changed to Precedex but however patient becomes agitated so back on propofol when setting remains unchanged have been on assist control rate of 24, PEEP is 5, FiO2 is 40%, tidal volume of 450, care plan discussed with the staff at length critical care time 35 minutes 03/30/2020, patient seen eval examined during the rounds labs reviewed me dications reviewed, remains sedated with propofol, current vent setting include his control rate of 24 breathing 24 tidal volume is 450, deep is 5 now, FiO2 is 40%, tolerating tube feed very well, chest x-ray reviewed slightly better but stable bilateral infiltrate consistent with atypical pneumonia, patient continued IVs very well with 20 mg Lasix daily, white cell count remained stable, with stable hemoglobin and however decreasing platelet count noted, dear blood gases revealed pH of 7.4 to pCO2 34 pO2 of 62, BUN/creatinine is 36 and 0.62, left he continue show downward trend, inflammatory markers reviewed still elevated but showing a downward trend 03/29/2020, patient seen eval examined during the rounds labs reviewed medications reviewed, care plan discussed with the nursing staff at length, patient has been on assist control rate of the 24 PEEP of 8 400 tidal volume 50% oxygen, ventilator has been adjusted with reduction in PEEP and oxygen, patient's saturation remained stable 91-92%, next step he is to stop propofol and reassess the mental status and if patient remains stable oxygen randolph and hemodynamics can do a CPAP pressure support trial in the meantime we'll continue IV steroids, antibiotics, CBC and ABG reviewed, today's chest x-ray showed bilateral interstitial infiltrate, predominantly at the bases, patient has been on Lasix 20 mg daily diuresing very well, critical care time 35 minutes 03/28/2020, patient seen eval examined during the rounds labs reviewed formerly [facility] reviewed care plan discussed oxygen has been down to 40% now. The patient is PEEP of 8, otherwise ventilator setting remains stable, patient is scheduled for PICC line later on today, remains on propofol, remains on broad- spectrum antibiotics, labs from today has been reviewed hemoglobin is stable 7.9, d-dimer is 3.24, arterial blood gases stable pH is 7.41 pCO2 35 pO2 96, BUN/creatinine is 51 and 1.05, ferritin level remains more than 26,000, AST ALT continued decline however today is 367 and 558, C-reactive protein checked 69.5 her chest x-ray earlier than today remains there however appears to have slightly progressed 03/27/2020, patient seen eval examined during the rounds labs reviewed medications reviewed care plan discussed, propofol has been discontinued patient because very restless and anxious, we'll restart propofol, patient has been on full ventilator support assist control 24 tidal volume of 450, PEEP is 10, oxygen is 70%, arterial blood gases reviewed when lower the FiO2 to 60% now plan to bring down the FiO2 to 50% and PEEP of 8 next 24 hours, sputum and blood cultures reviewed no growth so far, chest x-ray performed today reviewed significant improvement in infiltrates seen bilaterally, patient has a poor urine output throughout the night, 20 mg of Lasix was given put out 600 mL of urine patient continued to be on gentle hydration, remain on cefapime and Vanco, Lovenox Solu-Medrol multivitamin and vitamin C zinc and Lovenox, white cell count is stable 10,500 hemoglobin and hematocrit 7.2 and 24, general surgery has been following patient is considered to get EGD and colonoscopy once stable, arterial blood gas revealed pH of 7.39 pCO2 of 39 pO2 of 124, bicarb 25, liver enzymes continue to come down AST and ALT now is 944/809, hepatitis panel normal and nonreactive 03/26/2020, patient seen eval examined in the ICU care plan discussed with the staff, FiO2 has been down to 60%, patient remains on assist control tidal volume of 450, PEEP is 10, respiratory rate is 24 breathing with the respirator pH has been improved significantly, patient is making adequate urine chest x-ray compared with yesterday's x-ray some improvement have been noted, white cell count is 11,000, hemoglobin 7.9 which is stable, arterial blood gas improved to 7.39, pCO2 of 40, pO2 112, BUN/creatinine is 33/0.96, lactic acid was 5.9 down to 1.3 now, ferritin level noted to be 12,800, AST and ALT are 4014 100 with LDH over 21,500, today LFTs significantly improved AST is down to 2795 and ALT is 1222, pro calcitonin is 0.84, suspect some component of heart failure as well as pneumonia, will get an echocardiogram as well as start patient on broad-spectrum antibiotics with cefepime and Vanco Patient seen and evaluated examined in the emergency department, patient came into the ER from the office of Dr. Aleman due to progressive shortness of breath, patient has acute on chronic hypoxic respiratory failure on 4 L oxygen, also has issues associated with pneumonia presumed to be cold with 19, however, testing was negative, patient used to smoke in the remote past quit about 20-30 years ago due to severity or shortness of breath and hypoxia with saturation of 76% on 100% oxygen and respiratory distress patient was intubated due to poor tolerance on BiPAP, patient Covid testing came back positive, chest x-ray showing diffuse infiltrate she also has been noted to have elevated liver enzymes due to elevated liver enzymes will not start IV REMdesivir, Initial ABG pH is 7.18, pCO2 is 63 pO2 was only 33 Objective - Vital Signs Vital signs: Vital Signs Temp 97.5 F L 04/28/20 05:00 Pulse 73 04/28/20 05:00 Resp 18 04/28/20 05:00 BP 104/63 04/28/20 05:00 Pulse Ox 91 L 04/28/20 05:00 Intake & Output 04/27/20 04/28/20 04/28/20 18:59 06:59 18:59 Intake Total 550 500 Output Total 1050 300 Balance -500 200 Weight 70.5 kg 71 kg Intake: Intake, IV Titration 300 Amount Sodium Chloride 0.9% 1, 300 000 ml @ 50 mls/hr IV . Q20H [facility] Rx#:[id number] Oral 240 200 Blood Product 310 Rc As-1 Unit 310 [id number] Output: Urine 1050 300 Uretheral (Quick) 400 Other: Voiding Method Indwelling Catheter Indwelling Catheter Indwelling Catheter # Bowel Movements 0 - Exam Patient on 80% oxygen 15 L aerosolized saturation is 90% to 92% - Constitutional General appearance: average body habitus, mild distress, restless intermittently agitated - EENT Ears: bilateral: normal - Neck Carotids: bilateral: upstroke normal Thyroid: bilateral: normal size - Respiratory Respiratory: bilateral: diminished - Cardiovascular Rhythm: regular Heart sounds: normal: S1, S2 - Gastrointestinal General gastrointestinal: normal bowel sounds Patient is relatively more awake and alert compared to yesterday exam - Labs CBC & Chem 7: 04/27/20 07:00 04/27/20 07:00 Labs: Abnormal Lab Results - Last 24 Hours (Table) 04/27/20 04/27/20 04/27/20 Range/Units 08:47 11:36 17:06 POC Glucose (mg/dL) 166 H 190 H (75-99) mg/dL Crossmatch See Detail 04/27/20 04/28/20 04/28/20 Range/Units 20:42 07:25 11:25 POC Glucose (mg/dL) 196 H 116 H 320 H (75-99) mg/dL Crossmatch Assessment and Plan Assessment: Anemia of chronic disease Generalized weakness and medical debility Gram-positive bacteremia and VRE has been noted in urine blood on daptomycin Agitated delirium along with metabolic encephalopathy likely multifactorial including Covid 19 pneumonia, is being in ICU, for intubation long period time s epsis, slowly improving Acute hypoxic respiratory failure Covid19 pneumonia Thrombocytopenia stable Acute hepatitis/elevated liver enzymes Acute diastolic heart failure Chronic anemia Fibromyalgia Hypertension hypertensive cardiovascular disease Plan: Agree with blood transfusion 1 unit packed RBC Continue supportive care, oxygen taper as tolerated Continue daptomycin IV steroids, taper as tolerated Further recommendations pending plan of care as per clinical response of patient Continue anticoagulation with Lovenox PT OT evaluation Monitor labs and sodium closely Time with Patient: Greater than 30
[2020-04-28 14:28] LABS: Anisocytosis Slight; HCT 24.8 % (34.0-46.0); Hypochromasia Slight; MCH 27.9 pg (25.0-35.0); MCHC 31.4 g/dL (31.0-37.0); MCV 88.8 fL (80.0-100.0); Mean Platelet Volume 7.7; Platelet Count 318 k/uL (150-450); Poikilocytosis Slight; RDW 18.7 % (11.5-15.5); WBC 10.6 k/uL (3.8-10.6)
[2020-04-28 14:33] LABS: HGB 7.8 gm/dL (11.4-16.0)
[2020-04-28] MEDS: traMADol 50 MG TAB PO PRN ×2 (16:05→22:12)
[2020-04-28 17:26] LABS: Glucose,Whole Blood 251 mg/dL (75-99)
[2020-04-28 21:38] LABS: Glucose,Whole Blood 207 mg/dL (75-99)
--- NOTE | 2020-04-28 21:58 | PN ---
PROGRESS NOTE DATE OF SERVICE: 04/28/2020 REASON FOR FOLLOWUP: 1. Enterococcus faecalis bacteremia and VRE UTI. 2. Elevated white count. INTERVAL HISTORY: The patient is currently afebrile. The patient is breathing comfortably. The patient denies having any chest pain or shortness of breath or cough. No nausea, no vomiting, no abdominal pain or diarrhea. PHYSICAL EXAMINATION: Blood pressure is 97/60 with a pulse of 80, temperature 97.6. She is 92% on 4 L nasal cannula. General description is an elderly female lying in bed in no distress. RESPIRATORY SYSTEM: Unlabored breathing. Clear to auscultation anteriorly. HEART: S1, S2. Regular rate and rhythm. ABDOMEN: Soft. No tenderness. LABS: Hemoglobin is 7.8, white count 10.6. DIAGNOSTIC IMPRESSION AND PLAN: Patient with Enterococcus faecalis bacteremia and vancomycin-resistant Enterococcus urinary tract infection that has been adequately treated. The patient is currently being monitored closely off antibiotic therapy. White count is normal. Continue supportive care. MMODL / IJN: [id number] /
[2020-04-28] MEDS: AMITRIPTYLINE HCL 50 MG TAB PO SCH (22:11)
[2020-04-28] MEDS: FLUCONAZOLE 100 MG TAB PO SCH (22:12)
--- NOTE | 2020-04-28 22:54 | P.PN ---
Subjective Principal diagnosis: Respiratory failure related Covid pneumonia.. Otherwise appreciate multiple consultants input. The patient is now on a general medical floor lucid and recovering appropriately. She still needing quite a bit of oxygen support but is improving. She has had a slight drop in hemoglobin which is not unusual for her. Colonoscopy was deferred related to >She has been tolerating significant hypoxia is been documented. We have now started to try to increase physical therapy. Objective - Vital Signs Vital signs: Vital Signs Temp 97.9 F 04/28/20 20:00 Pulse 80 04/28/20 20:00 Resp 20 04/28/20 20:00 BP 96/59 04/28/20 20:00 Pulse Ox 96 04/28/20 20:00 Intake & Output 04/28/20 04/28/20 04/29/20 06:59 18:59 06:59 Intake Total 500 Output Total 300 200 Balance 200 -200 Weight 71 kg Intake: Intake, IV Titration 300 Amount Sodium Chloride 0.9% 1, 300 000 ml @ 50 mls/hr IV . Q20H [facility] Rx#:[id number] Oral 200 Output: Urine 300 200 Other: Voiding Method Indwelling Catheter Indwelling Catheter # Bowel Movements 0 - Constitutional General appearance: Present: average body habitus - EENT Eyes: Absent: abnormal pupil - Neck Neck: Absent: lymphadenopathy - Respiratory Respiratory: bilateral: diminished - Cardiovascular Rhythm: regular Heart sounds: normal: S1, S2 Abnormal Heart Sounds: Absent: S3 Gallop - Gastrointestinal General gastrointestinal: Present: soft. Absent: tenderness - Neurologic Neurologic: Present: CNII-XII intact - Labs CBC & Chem 7: 04/28/20 13:59 04/27/20 07:00 Labs: Abnormal Lab Results - Last 24 Hours (Table) 04/28/20 04/28/20 04/28/20 Range/Units 07:25 11:25 13:59 RBC 2.80 L (3.80-5.40) m/uL Hgb 7.8 L D (11.4-16.0) gm/dL Hct 24.8 L (34.0-46.0) % RDW 18.7 H (11.5-15.5) % POC Glucose (mg/dL) 116 H 320 H (75-99) mg/dL 04/28/20 04/28/20 Range/Units 17:11 21:37 RBC (3.80-5.40) m/uL Hgb (11.4-16.0) gm/dL Hct (34.0-46.0) % RDW (11.5-15.5) % POC Glucose (mg/dL) 251 H 207 H (75-99) mg/dL Assessment and Plan (1) Acute respiratory distress syndrome Current Visit: Yes Status: Acute Code(s): J80 - ACUTE RESPIRATORY DISTRESS SYNDROME SNOMED Code(s): 78645405 (2) Anemia Current Visit: Yes Status: Acute Code(s): D64.9 - ANEMIA, UNSPECIFIED SNOMED Code(s): 200217775 (3) COVID-19 Current Visit: Yes Status: Acute Code(s): U07.1 - COVID-19 SNOMED Code(s): 986997440 (4) Pneumonia Current Visit: Yes Status: Acute Code(s): J18.9 - PNEUMONIA, UNSPECIFIED ORGANISM SNOMED Code(s): 929209892 (5) Fibromyalgia Current Visit: No Status: Acute Code(s): M79.7 - FIBROMYALGIA SNOMED Code(s): 470503337 (6) Generalized weakness Current Visit: Yes Status: Acute Code(s): R53.1 - WEAKNESS SNOMED Code(s): 28403507 (7) Immobility Current Visit: Yes Status: Acute Code(s): Z74.09 - OTHER REDUCED MOBILITY SNOMED Code(s): 739984596 Plan: Appropriate supportive care. She seems to be doing quite well given her Covid. We'll continue to follow with consultants. Check CBC and CMP in a.m. Increase ambulation. She is slowly needing less baseline oxygen which is overall improvement in her prognosis
[2020-04-29] MEDS: SODIUM CHLORIDE 0.9% 1,000 ML IV SCH (04:02)
[2020-04-29 06:12] LABS: Anisocytosis Slight; HCT 20.5 % (34.0-46.0); Hypochromasia Moderate; MCH 28.3 pg (25.0-35.0); MCHC 31.8 g/dL (31.0-37.0); MCV 88.9 fL (80.0-100.0); Mean Platelet Volume 7.6; Platelet Count 292 k/uL (150-450); Poikilocytosis Slight; RBC 2.31 m/uL (3.80-5.40); WBC 6.4 k/uL (3.8-10.6)
[2020-04-29 06:16] LABS: HGB 6.5 gm/dL (11.4-16.0)
[2020-04-29 06:58] LABS: Glucose,Whole Blood 87 mg/dL (75-99)
[2020-04-29] MEDS: INSULIN ASPART (NovoLOG) 100 UNIT/ML VIAL SQ SCH ×4 (07:13→21:22)
[2020-04-29] MEDS: PANTOPRAZOLE 40 MG TABLET PO SCH ×2 (09:22→21:21)
[2020-04-29] MEDS: ASCORBIC ACID 500 MG TAB PO SCH ×2 (09:22→21:22)
[2020-04-29] MEDS: amLODIPine 5 MG TAB PO SCH ×2 (09:22→21:21)
[2020-04-29] MEDS: ZINC SULFATE 220 MG CAP PO SCH (09:22)
[2020-04-29] MEDS: SERTRALINE 100 MG TAB PO SCH (09:22)
[2020-04-29] MEDS: CHOLECALCIFEROL 400 UNIT TAB PO SCH (09:22)
[2020-04-29] MEDS: methylPREDNISolone SOD SUCCI 40 MG/ML 1 ML VIAL IV SCH (09:23)
[2020-04-29] MEDS: ENOXAPARIN 40 MG/0.4 ML SYRINGE SQ SCH (09:23)
[2020-04-29] MEDS: hydrALAZINE HCL 25 MG TAB PO SCH ×3 (09:28→21:21)
--- NOTE | 2020-04-29 10:43 | P.PN ---
<Ana Parks - Last Filed: 04/29/20 10:38> Subjective Progress Note Date: 04/29/20 CHIEF COMPLAINT: GI bleed HISTORY OF PRESENT ILLNESS: Patient has had prolonged hospitalization with respiratory failure due to Covid 19 infection. She also has enterococcus and VRE UTI and enterococcus bacteremia. Surgical service is following for patient's GI bleed and recurrent anemia. Patient has had no active bleeding. Patient's hemoglobin has dropped again down from 7.8 to 6.5. She is scheduled for another unit of blood today. Patient is being evaluated for possible rehab placement. Patient is also had poor appetite. Afebrile. WBC 6.4 patient has still declined having endoscopies completed during her hospitalization PHYSICAL EXAM: VITAL SIGNS: Reviewed. GENERAL: Well-developed in no acute distress. HEENT: No sclera icterus. Extraocular movements grossly intact. Moist buccal mucosa. Head is atraumatic, normocephalic. ABDOMEN: Soft. Nondistended. Nontender. NEUROLOGIC: Alert and orientated. Cranial nerves II through XII grossly intact ASSESSMENT: 1. Acute on chronic blood loss anemia due to possible GI source. Patient currently not having any active bleeding. 3. Elevated liver enzymes with large gallstone present on abdominal ultrasound. LFTs are trending down 4. Acute hypoxic respiratory failure due to COVID 19 infection requiring to be intubated. Patient was successfully extubated on 04/04/2020 5. Constipation Plan: -Recommended upper and lower endoscopy. Patient currently is not interested in having any endoscopy completed. -Continue to monitor patient's hemoglobin -Continue to monitor for active bleeding -Continue Protonix -Continue supportive care Physician [employer]iler note has been reviewed by physician. Signing provider agrees with the documented findings, assessment, and plan of care. Objective - Vital Signs Vital signs: Vital Signs Temp 98.1 F 04/29/20 09:56 Pulse 72 04/29/20 09:56 Resp 18 04/29/20 09:56 BP 110/60 04/29/20 09:56 Pulse Ox 96 04/29/20 09:56 Intake & Output 04/28/20 04/29/20 04/29/20 18:59 06:59 18:59 Intake Total 0 Output Total 200 350 Balance -200 -350 0 Weight 73 kg Intake: Blood Product 0 Rc As-1 Unit 0 [id number] Output: Urine 200 350 Other: Voiding Method Indwelling Catheter Indwelling Catheter - Labs CBC & Chem 7: 04/29/20 05:09 04/27/20 07:00 Labs: Abnormal Lab Results - Last 24 Hours (Table) 04/27/20 04/28/20 04/28/20 Range/Units 08:47 11:25 13:59 RBC 2.80 L (3.80-5.40) m/uL Hgb 7.8 L D (11.4-16.0) gm/dL Hct 24.8 L (34.0-46.0) % RDW 18.7 H (11.5-15.5) % POC Glucose (mg/dL) 320 H (75-99) mg/dL Crossmatch See Detail 04/28/20 04/28/20 04/29/20 Range/Units 17:11 21:37 05:09 RBC 2.31 L (3.80-5.40) m/uL Hgb 6.5 L* (11.4-16.0) gm/dL Hct 20.5 L (34.0-46.0) % RDW 19.0 H (11.5-15.5) % POC Glucose (mg/dL) 251 H 207 H (75-99) mg/dL Crossmatch <William Henry - Last Filed: 04/29/20 12:28> Subjective Patient with further drop in hemoglobin. Still refusing endoscopy currently. We'll discuss further with Dr. Aleman. Objective - Vital Signs Vital signs: Vital Signs Temp 98.1 F 04/29/20 09:56 Pulse 72 04/29/20 09:56 Resp 18 04/29/20 09:56 BP 114/56 04/29/20 10:26 Pulse Ox 97 04/29/20 10:26 Intake & Output 04/28/20 04/29/20 04/29/20 18:59 06:59 18:59 Intake Total 0 Output Total 200 350 Balance -200 -350 0 Weight 73 kg Intake: Blood Product 0 Rc As-1 Unit 0 [id number] Output: Urine 200 350 Other: Voiding Method Indwelling Catheter Indwelling Catheter Indwelling Catheter - Labs CBC & Chem 7: 04/29/20 05:09 04/29/20 05:09 Labs: Abnormal Lab Results - Last 24 Hours (Table) 04/27/20 04/28/20 04/28/20 Range/Units 08:47 13:59 17:11 RBC 2.80 L (3.80-5.40) m/uL Hgb 7.8 L D (11.4-16.0) gm/dL Hct 24.8 L (34.0-46.0) % RDW 18.7 H (11.5-15.5) % Sodium (135-145) mmol/L Creatinine (0.6-1.5) mg/dL BUN/Creatinine Ratio (12.00-20.00) Ratio POC Glucose (mg/dL) 251 H (75-99) mg/dL Calcium (8.7-10.3) mg/dL ALT (8-44) U/L Total Protein (6.2-8.2) g/dL Albumin (3.80-4.90) g/dL Albumin/Globulin Ratio (1.60-3.17) g/dL Crossmatch See Detail 04/28/20 04/29/20 04/29/20 Range/Units 21:37 05:09 05:09 RBC 2.31 L (3.80-5.40) m/uL Hgb 6.5 L* (11.4-16.0) gm/dL Hct 20.5 L (34.0-46.0) % RDW 19.0 H (11.5-15.5) % Sodium 132 L (135-145) mmol/L Creatinine 0.5 L (0.6-1.5) mg/dL BUN/Creatinine Ratio 48.00 H (12.00-20.00) Ratio POC Glucose (mg/dL) 207 H (75-99) mg/dL Calcium 7.4 L (8.7-10.3) mg/dL ALT 45 H (8-44) U/L Total Protein 4.6 L (6.2-8.2) g/dL Albumin 2.80 L (3.80-4.90) g/dL Albumin/Globulin Ratio 1.56 L (1.60-3.17) g/dL Crossmatch 04/29/20 Range/Units 11:01 RBC (3.80-5.40) m/uL Hgb (11.4-16.0) gm/dL Hct (34.0-46.0) % RDW (11.5-15.5) % Sodium (135-145) mmol/L Creatinine (0.6-1.5) mg/dL BUN/Creatinine Ratio (12.00-20.00) Ratio POC Glucose (mg/dL) 142 H (75-99) mg/dL Calcium (8.7-10.3) mg/dL ALT (8-44) U/L Total Protein (6.2-8.2) g/dL Albumin (3.80-4.90) g/dL Albumin/Globulin Ratio (1.60-3.17) g/dL Crossmatch Assessment and Plan (1) GI bleed Current Visit: Yes Status: Acute Code(s): K92.2 - GASTROINTESTINAL HEMORRHAGE, UNSPECIFIED SNOMED Code(s): 95583001
[2020-04-29 10:48] LABS: African American GFR (CKD) 113.7 (60.0-200.0); Albumin 2.8 g/dL (3.80-4.90); Albumin/Globulin Ratio 1.56 (1.60-3.17); Anion Gap 7.4 mmol/L (4.00-12.00); Calcium 7.4 mg/dL (8.7-10.3); Carbon Dioxide 23.6 mmol/L (21.6-31.8); Globulin 1.8 g/dL (1.6-3.3); Non-African American GFR(CKD) 98.1 (60.0-200.0); Potassium 4.2 mmol/L (3.5-5.5); Total Bilirubin 0.5 mg/dL (0.2-1.2); Total Protein 4.6 g/dL (6.2-8.2)
--- NOTE | 2020-04-29 10:55 | P.PN ---
Subjective Progress Note Date: 04/29/20 Principal diagnosis: Acute hypoxic respiratory failure Covid19 pneumonia Acute respiratory and metabolic acidosis Acute hepatitis/elevated liver enzymes Acute diastolic heart failure and fluid overload Chronic anemia Fibromyalgia Hypertension hypertensive cardiovascular disease 04/29/2020, patient sitting upright on the bed, on 4 L oxygen, gradually being titrated down, patient continued to have physical therapy, hemoglobin is again down to 6.5, patient will be transfused with 1 unit of packed RBC, recommend check stool for occult blood as well 04/28/2020, patient is sleeping comfortably on 4 L oxygen, oxygen saturation is gradually being titrated down patient continue to get physical therapy as well her in physical therapy advice to increase oxygen before him, status post her one-year of packed RBC blood transfusion 04/27/2020, patient seen eval examined sitting upright in chair breathing comfortably on 4 L oxygen, saturation is 96%, hemoglobin is 6.2 patient is being arranged for blood transfusion, down from 7.1 yesterday, 04/25/2020, patient seen eval examined during rounds labs reviewed medications reviewed care plan discussed, respiratory status remains stable, however during activity and exertion does drop down at 5 L oxygen saturation is mid 90s but with physical therapy dropped down to 80s, recommended before exertion oxygen to be bumped up to 8 L 04/24/2020, patient seen evanson examined during the rounds labs reviewed medications reviewed care plan discussed, respiratory status remains marginal now patient requires 8 L as he was noted to have significant dysphagia and desaturation during physical therapy into 70s, she is been settling down her sats most recent 9394% now 04/23/2020, patient seen eval examined labs reviewed medications reviewed care plan discussed, respiratory status remains stable, patient is now on 4 L sitting upright on the chair finished her breakfast appears very well awake and alert continue supportive care oxygen saturation is now 98% 04/22/2020, patient seen eval examined during the rounds labs reviewed medications reviewed care plan discussed, respiratory status continued to be stable currently patient over a liter oxygen sitting upright on the bed breathing comfortably, oxygen demand however continued to be high, oxygen saturation 95-88%, 04/21/2020, patient seen eval examined, slightly more short of breath appetite poor did not consume more than one fourth of tray, remains very weak, oxygen requirement increased to 8 L, somnolent but arousable, will decrease his steroid to once a day 04/20/2020, patient continued do well, oxygen is down to 6 L now from 7 L, patient appetite and mental status continued to improve will continue current plan of care 04/19/2020, patient seen eval examined during the rounds labs reviewed medications reviewed, patient is now down to 8 L from 10 L, saturation is mid 90s, respiratory status stable, we'll continue titrated oxygen down as tolerated slowly 2-3 L in 24 hours as tolerated 04/18/2020, patient seen eval examined during the rounds labs reviewed medications reviewed respiratory status remains stable denies any chest pain, patient remains on high flow oxygen, saturation well, discussed was titrated down as tolerated, labs reviewed medications reviewed, currently patient is on 10 L 45% airvo 04/17/2020, patient seen eval examined more awake and alert breathing comfortably no obvious distress is present, oxygen being titrated down off of high flow and airvo, on 15 L high flow saturating low to mid 80s and dropped down some back on aerosolized oxygen, mental status more clear tolerating by mouth well extremely weak continued PT OT and supportive care 04/16/2020, patient seen eval examined during the rounds respiratory status con tinued to improve so as the mental status however is still on high flow air VO oxygen 04/15/2020, patient seen eval examined during the rounds labs reviewed medications reviewed care plan discussed, patient remains on high flow oxygen 15 L 70% oxygen saturation remains marginal low 90s to high 80s previously today noted to be 94%, patient has been tolerating by mouth well, has been moved down from the ICU labs from today reviewed slight hyponatremia noted otherwise fairly within normal limit patient remains on Lovenox along with daptomycin fluconazole, IV steroids, patient has finished usual therapy for covid19 pneumonia 04/14/2020, patient remains on 50% oxygen 70L, awake slightly confused, shortness of breath is not obvious hemodynamic status stable tolerating by mouth well patient will be moved out of the ICU when bed available 04/13/2020, patient seen eval examined during the rounds labs reviewed medications reviewed care plan discussed with the staff, respiratory status remains stable continued to be on the 75% oxygen 15 L high flow, remains afebrile remains on antibiotics patient will be transferred to [facility] with remote telemetry date on today 04/12/2020, patient seen eval examined during rounds labs reviewed medications reviewed, respiratory status remains unchanged, patient remains on 15 L 75% oxygen unable to titrate oxygen down, appetite continued to improve, patient able to swallow well, labs reviewed medications reviewed care plan discussed with the staff at length, patient can be moved out to [facility] with remote telemetry 04/11/2020, patient seen eval examined during evaluation patient noted to be more awake and alert compared to prior exam however patient remains on 15 L 75% aerosolized oxygen high flow, no obvious distress present patient remains a febrile, remains on broad-spectrum antibiotics and usual care for coronary 19 pneumonia April 10 2020 patient seen eval examined sitting upright on the bed breathing comfortably, patient remains on high flow oxygen 15 L 75%, swallow evaluation completed patient able to swallow well will start by mouth blood pressure problem remains an issue we will increase the dose of Norvasc continue oral hy dralazine monitor blood pressure closely, absolute reviewed x-ray reviewed continued to show bilateral interstitial infiltrate predominantly in mid part and basis 04/09/2020, patient seen eval examined in the ICU, respiratory status remains marginal but stable, patient is on 80% aerosolized oxygen 15 L, saturation is 90%, more awake and alert, swallowing functions will be reassessed later on toda y by speech therapist, mental status changes agitated behavior and confusion remains an issue which causes blood pressure to go up as well, 04/08/2020, patient seen eval examined during the rounds labs reviewed medications reviewed care plan discussed, patient remains on BiPAP 15/5 with 70% oxygen, oxygen saturation 94% more awake alert, will try high flow aerosolized oxygen, blood culture positive for gram positive cocci in chain, patient is on IV vancomycin he is following 04/07/2020, patient seen eval examined during the rounds labs reviewed medications reviewed, mental status remains stable slightly improved however, patient intermittently get anxious and agitated, low-grade temperature 90 is present hemodynamically stable though, saturation is 90% to 93% on partial nonrebreather mask, chest x-ray remains stable, white cell count remains elevated, 04/06/2020, patient seen eval examined during the rounds labs reviewed medications reviewed, patient remains off of ventilator, mental status slightly better today compared to last 24-48 hours less agitated awake oriented 1 now, remains on partial nonrebreather mask, saturation is 94%, LAD pressure slightly running on the higher side remains on IV hydralazine, oxygen saturation is 94% to 96%, 04/05/2020, patient seen eval reexamined successfully weaned and extubated yesterday has been on supplemental oxygen 2-4 L, in the last 8-12 hours however decompensation in oxygenation status as well as patient even though awake but re woodrow agitated appears to have a agitated delirium, does require Dilaudid at a regular interval, remains afebrile, oxygen saturation is 99% on 10 L nonrebreather mask, patient cannot take by mouth medicines are listed IV, will try morphine as needed DC Dilaudid, 04/04/2020, patient seen eval examined during the rounds labs reviewed medications reviewed care plan discussed, patient is awake now remains off of propofol since yesterday, does make intermittent eye contact, remains slightly withdrawn however, respiratory status stable, remains on assist control mode rate of 24, tidal volume is 450, +5 of PEEP, 40% oxygen, peak airway pressure stable, chest x-ray shows bilateral diffuse interstitial infiltrate stable ET tube and NG tube in PICC line, white cell count is 13,400, hemoglobin and h ematocrit stable 9.4 and 31, arterial blood gases reviewed pH is 7.4 to pCO2 32 pO2 64, BUN/creatinine is 32 and 0.5, patient is reviewed Lovenox remains 2040 mg subcu twice a day on IV furosemide, Solu-Medrol is 60 mg IV every 6 we'll decrease it to every 12 04/03/2020, patient seen eval examined during rounds labs reviewed medications reviewed, care plan discussed, overall hemodynamically he remains stable blood pressure spiked up on hydralazine when necessary, seems to be helping, patient sedated with propofol drip 50 mics, attempts for weaning of protocol has been unsuccessful as patient becomes agitated, attempted Precedex drip has been unsuccessful as well, current vent settings include assist control rate of 24 breathing 24, FiO2 is 40%, PEEP is 5, tidal volume is 450, chest x-ray stable ET tube with bilateral multifocal infiltrate with consolidation consistent with cold with 19 pneumonia not essentially much change from the prior x-ray, ET tube and NG tube was stable, patient is getting tube feed bolus feeding, labs including ABG chemistry reviewed 04/02/2020, patient seen eval examined during the rounds labs reviewed medications reviewed care plan discussed, patient remains sedated with propofol on ventilator for full ventilator support, currently patient is on assist control mode rate Tuesday for breathing 24, tidal volume is 450, 5 of PEEP, 40% oxygen, propofol is 50 mics, chest x-ray from today reviewed continue show patchy bilateral infiltrate without any significant interval change, arterial blood gases revealed pH of 7.43 pCO2 32, C-reactive protein is down to 21, BUN/creatinine is 34/.49, white cell count and hemoglobin remained stable, medications reviewed, she remains on broad-spectrum antibiotic with cephapirin, Lovenox, gentle diuresis with Lasix, blood pressure control with IV hydralazine, patient remains on high-dose IV steroids, discussed with the staff at length, will stop the propofol drip and once patient is awake put on CPAP 5 pressure kramer pport of 5 gas after half an hour also check weaning parameters 04/01/2020, patient seen eval examined labs reviewed medications reviewed care plan discussed with the staff at length patient had a sedation holiday today she is arousable and awake follows simple commands with blood pressure went up becomes agitated anxious requiring a reinitiation of propofol drip, ventilator setting remains unchanged, patient is on rate of 24 tidal volume is 450, PEEP is 5, oxygen is 40%, chest x-ray from today reviewed remains overall stable with stable lines and tubes 03/31/2020, patient seen eval examined during the rounds labs reviewed medications reviewed care plan discussed, patient remains on full ventilator support, propofol was changed to Precedex but however patient becomes agitated so back on propofol when setting remains unchanged have been on assist control rate of 24, PEEP is 5, FiO2 is 40%, tidal volume of 450, care plan discussed with the staff at length critical care time 35 minutes 03/30/2020, patient seen eval examined during the rounds labs reviewed medications reviewed, remains sedated with propofol, current vent setting include his control rate of 24 breathing 24 tidal volume is 450, deep is 5 now, FiO2 is 40%, tolerating tube feed very well, chest x-ray reviewed slightly better but stable bilateral infiltrate consistent with atypical pneumonia, patient continued IVs very well with 20 mg Lasix daily, white cell count remained stable, with stable hemoglobin and however decreasing platelet count noted, dear blood gases revealed pH of 7.4 to pCO2 34 pO2 of 62, BUN/creatinine is 36 and 0.62, left he continue show downward trend, inflammatory markers reviewed still elevated but showing a downward trend 03/29/2020, patient seen eval examined during the rounds labs reviewed medications reviewed, care plan discussed with the nursing staff at length, patient has been on assist control rate of the 24 PEEP of 8 400 tidal volume 50% oxygen, ventilator has been adjusted with reduction in PEEP and oxygen, patient's saturation remained stable 91-92%, next step he is to stop propofol and reassess the mental status and if patient remains stable oxygen randolph and hemodynamics can do a CPAP pressure support trial in the meantime we'll continue IV steroids, antibiotics, CBC and ABG reviewed, today's chest x-ray showed bilateral interstitial infiltrate, predominantly at the bases, patient has been on Lasix 20 mg daily diuresing very well, critical care time 35 minutes 03/28/2020, patient seen eval examined during the rounds labs reviewed medications reviewed care plan discussed oxygen has been down to 40% now. The patient is PEEP of 8, otherwise ventilator setting remains stable, patient is scheduled for PICC line later on today, remains on propofol, remains on broad- spectrum antibiotics, labs from today has been reviewed hemoglobin is stable 7.9, d-dimer is 3.24, arterial blood gases stable pH is 7.41 pCO2 35 pO2 96, BUN/creatinine is 51 and 1.05, ferritin level remains more than 26,000, AST ALT continued decline however today is 367 and 558, C-reactive protein checked 69.5 her chest x-ray earlier than today remains there however appears to have slightl y progressed 03/27/2020, patient seen eval examined during the rounds labs reviewed medications reviewed care plan discussed, propofol has been discontinued patient because very restless and anxious, we'll restart propofol, patient has been on full ventilator support assist control 24 tidal volume of 450, PEEP is 10, oxygen is 70%, arterial blood gases reviewed when lower the FiO2 to 60% now plan to bring down the FiO2 to 50% and PEEP of 8 next 24 hours, sputum and blood cultures reviewed no growth so far, chest x-ray performed today reviewed significant improvement in infiltrates seen bilaterally, patient has a poor urine output throughout the night, 20 mg of Lasix was given put out 600 mL of urine patient continued to be on gentle hydration, remain on cefapime and Vanco, Lovenox Solu-Medrol multivitamin and vitamin C zinc and Lovenox, white cell count is stable 10,500 hemoglobin and hematocrit 7.2 and 24, general surgery has been following patient is considered to get EGD and colonoscopy once stable, arterial blood gas revealed pH of 7.39 pCO2 of 39 pO2 of 124, bicarb 25, liver enzymes continue to come down AST and ALT now is 944/809, hepatitis panel normal and nonreactive 03/26/2020, patient seen eval examined in the ICU care plan discussed with the staff, FiO2 has been down to 60%, patient remains on assist control tidal volume of 450, PEEP is 10, respiratory rate is 24 breathing with the respirator pH has been improved significantly, patient is making adequate urine chest x-ray compared with yesterday's x-ray some improvement have been noted, white cell count is 11,000, hemoglobin 7.9 which is stable, arterial blood gas improved to 7.39, pCO2 of 40, pO2 112, BUN/creatinine is 33/0.96, lactic acid was 5.9 down to 1.3 now, ferritin level noted to be 12,800, AST and ALT are 4014 100 with LDH over 21,500, today LFTs significantly improved AST is down to 2795 and ALT is 1222, pro calcitonin is 0.84, suspect some component of heart failure as well as pneumonia, will get an echocardiogram as well as start patient on broad-spectrum antibiotics with cefepime and Vanco Patient seen and evaluated examined in the emergency department, patient came into the ER from the office of Dr. Aleman due to progressive shortness of breath, patient has acute on chronic hypoxic respiratory failure on 4 L oxygen, also has issues associated with pneumonia presumed to be cold with 19, however, testing was negative, patient used to smoke in the remote past quit about 20-30 years ago due to severity or shortness of breath and hypoxia with saturation of 76% on 100% oxygen and respiratory distress patient was intubated due to poor tolerance on BiPAP, patient Covid testing came back positive, chest x-ray showing diffuse infiltrate she also has been noted to have elevated liver enzymes due to elevated liver enzymes will not start IV REMdesivir, Initial ABG pH is 7.18, pCO2 is 63 pO2 was only 33 Objective - Vital Signs Vital signs: Vital Signs Temp 98.1 F 04/29/20 09:56 Pulse 72 04/29/20 09:56 Resp 18 04/29/20 09:56 BP 110/60 04/29/20 09:56 Pulse Ox 96 04/29/20 09:56 Intake & Output 04/28/20 04/29/20 04/29/20 18:59 06:59 18:59 Intake Total 0 Output Total 200 350 Balance -200 -350 0 Weight 73 kg Intake: Blood Product 0 Rc As-1 Unit 0 [id number] Output: Urine 200 350 Other: Voiding Method Indwelling Catheter Indwelling Catheter Indwelling Catheter - Exam Patient on 80% oxygen 15 L aerosolized saturation is 90% to 92% - Constitutional General appearance: average body habitus, mild distress, restless intermittently agitated - EENT Ears: bilateral: normal - Neck Carotids: bilateral: upstroke normal Thyroid: bilateral: normal size - Respiratory Respiratory: bilateral: diminished - Cardiovascular Rhythm: regular Heart sounds: normal: S1, S2 - Gastrointestinal General gastrointestinal: normal bowel sounds Patient is relatively more awake and alert compared to yesterday exam - Labs CBC & Chem 7: 04/29/20 05:09 04/29/20 05:09 Labs: Abnormal Lab Results - Last 24 Hours (Table) 04/27/20 04/28/20 04/28/20 Range/Units 08:47 11:25 13:59 RBC 2.80 L (3.80-5.40) m/uL Hgb 7.8 L D (11.4-16.0) gm/dL Hct 24.8 L (34.0-46.0) % RDW 18.7 H (11.5-15.5) % Sodium (135-145) mmol/L Creatinine (0.6-1.5) mg/dL BUN/Creatinine Ratio (12.00-20.00) Ratio POC Glucose (mg/dL) 320 H (75-99) mg/dL Calcium (8.7-10.3) mg/dL ALT (8-44) U/L Total Protein (6.2-8.2) g/dL Albumin (3.80-4.90) g/dL Albumin/Globulin Ratio (1.60-3.17) g/dL Crossmatch See Detail 04/28/20 04/28/20 04/29/20 Range/Units 17:11 21:37 05:09 RBC 2.31 L (3.80-5.40) m/uL Hgb 6.5 L* (11.4-16.0) gm/dL Hct 20.5 L (34.0-46.0) % RDW 19.0 H (11.5-15.5) % Sodium (135-145) mmol/L Creatinine (0.6-1.5) mg/dL BUN/Creatinine Ratio (12.00-20.00) Ratio POC Glucose (mg/dL) 251 H 207 H (75-99) mg/dL Calcium (8.7-10.3) mg/dL ALT (8-44) U/L Total Protein (6.2-8.2) g/dL Albumin (3.80-4.90) g/dL Albumin/Globulin Ratio (1.60-3.17) g/dL Crossmatch 04/29/20 Range/Units 05:09 RBC (3.80-5.40) m/uL Hgb (11.4-16.0) gm/dL Hct (34.0-46.0) % RDW (11.5-15.5) % Sodium 132 L (135-145) mmol/L Creatinine 0.5 L (0.6-1.5) mg/dL BUN/Creatinine Ratio 48.00 H (12.00-20.00) Ratio POC Glucose (mg/dL) (75-99) mg/dL Calcium 7.4 L (8.7-10.3) mg/dL ALT 45 H (8-44) U/L Total Protein 4.6 L (6.2-8.2) g/dL Albumin 2.80 L (3.80-4.90) g/dL Albumin/Globulin Ratio 1.56 L (1.60-3.17) g/dL Crossmatch Assessment and Plan Assessment: Anemia of chronic disease Generalized weakness and medical debility Gram-positive bacteremia and VRE has been noted in urine blood on daptomycin Agitated delirium along with metabolic encephalopathy likely multifactorial including Covid 19 pneumonia, is being in ICU, for intubation long period time sepsis, slowly improving Acute hypoxic respiratory failure Covid19 pneumonia Thrombocytopenia stable Acute hepatitis/elevated liver enzymes Acute diastolic heart failure Chronic anemia Fibromyalgia Hypertension hypertensive cardiovascular disease Plan: Agree with blood transfusion 1 unit packed RBC Check stools for occult blood and consider GI consult if positive Proton pump inhibitors Continue supportive care, oxygen taper as tolerated Continue daptomycin IV steroids, taper as tolerated Further recommendations pending plan of care as per clinical response of patient Continue anticoagulation with Lovenox PT OT evaluation Monitor labs and sodium closely Time with Patient: Greater than 30
[2020-04-29 11:23] LABS: Glucose,Whole Blood 142 mg/dL (75-99)
--- NOTE | 2020-04-29 12:41 | P.PN ---
Subjective Principal diagnosis: Respiratory failure related Covid pneumonia.. Otherwise appreciate multiple consultants input. The patient is now on a general medical floor lucid and recovering appropriately. She still needing quite a bit of oxygen support but is improving. She has had a slight drop in hemoglobin which is not unusual for her. Colonoscopy was deferred related to >She has been tolerating significant hypoxia is been documented. We have now started to try to increase physical therapy. Today however, hemoglobin has dropped below 7. We will transfuse 1 unit PRBC Objective - Vital Signs Vital signs: Vital Signs Temp 98.1 F 04/29/20 09:56 Pulse 72 04/29/20 09:56 Resp 18 04/29/20 09:56 BP 114/56 04/29/20 10:26 Pulse Ox 97 04/29/20 10:26 Intake & Output 04/28/20 04/29/20 04/29/20 18:59 06:59 18:59 Intake Total 0 Output Total 200 350 Balance -200 -350 0 Weight 73 kg Intake: Blood Product 0 Rc As-1 Unit 0 [id number] Output: Urine 200 350 Other: Voiding Method Indwelling Catheter Indwelling Catheter Indwelling Catheter - Constitutional General appearance: Present: average body habitus - EENT Eyes: Absent: abnormal pupil - Neck Neck: Absent: lymphadenopathy - Respiratory Respiratory: bilateral: CTA - Cardiovascular Rhythm: regular Heart sounds: normal: S1, S2 Abnormal Heart Sounds: Absent: S3 Gallop - Gastrointestinal General gastrointestinal: Present: soft. Absent: tenderness - Neurologic Neurologic: Present: CNII-XII intact - Musculoskeletal Musculoskeletal: Present: generalized weakness - Psychiatric Psychiatric: Present: A&O x's 3, appropriate affect - Labs CBC & Chem 7: 04/29/20 05:09 04/29/20 05:09 Labs: Abnormal Lab Results - Last 24 Hours (Table) 04/27/20 04/28/20 04/28/20 Range/Units 08:47 13:59 17:11 RBC 2.80 L (3.80-5.40) m/uL Hgb 7.8 L D (11.4-16.0) gm/dL Hct 24.8 L (34.0-46.0) % RDW 18.7 H (11.5-15.5) % Sodium (135-145) mmol/L Creatinine (0.6-1.5) mg/dL BUN/Creatinine Ratio (12.00-20.00) Ratio POC Glucose (mg/dL) 251 H (75-99) mg/dL Calcium (8.7-10.3) mg/dL ALT (8-44) U/L Total Protein (6.2-8.2) g/dL Albumin (3.80-4.90) g/dL Albumin/Globulin Ratio (1.60-3.17) g/dL Crossmatch See Detail 04/28/20 04/29/20 04/29/20 Range/Units 21:37 05:09 05:09 RBC 2.31 L (3.80-5.40) m/uL Hgb 6.5 L* (11.4-16.0) gm/dL Hct 20.5 L (34.0-46.0) % RDW 19.0 H (11.5-15.5) % Sodium 132 L (135-145) mmol/L Creatinine 0.5 L (0.6-1.5) mg/dL BUN/Creatinine Ratio 48.00 H (12.00-20.00) Ratio POC Glucose (mg/dL) 207 H (75-99) mg/dL Calcium 7.4 L (8.7-10.3) mg/dL ALT 45 H (8-44) U/L Total Protein 4.6 L (6.2-8.2) g/dL Albumin 2.80 L (3.80-4.90) g/dL Albumin/Globulin Ratio 1.56 L (1.60-3.17) g/dL Crossmatch 04/29/20 Range/Units 11:01 RBC (3.80-5.40) m/uL Hgb (11.4-16.0) gm/dL Hct (34.0-46.0) % RDW (11.5-15.5) % Sodium (135-145) mmol/L Creatinine (0.6-1.5) mg/dL BUN/Creatinine Ratio (12.00-20.00) Ratio POC Glucose (mg/dL) 142 H (75-99) mg/dL Calcium (8.7-10.3) mg/dL ALT (8-44) U/L Total Protein (6.2-8.2) g/dL Albumin (3.80-4.90) g/dL Albumin/Globulin Ratio (1.60-3.17) g/dL Crossmatch Assessment and Plan (1) Acute respiratory distress syndrome Current Visit: Yes Status: Acute Code(s): J80 - ACUTE RESPIRATORY DISTRESS SYNDROME SNOMED Code(s): 47424748 (2) Anemia Current Visit: Yes Status: Acute Code(s): D64.9 - ANEMIA, UNSPECIFIED SNOMED Code(s): 630673542 (3) COVID-19 Current Visit: Yes Status: Acute Code(s): U07.1 - COVID-19 SNOMED Code(s): 293992833 (4) Pneumonia Current Visit: Yes Status: Acute Code(s): J18.9 - PNEUMONIA, UNSPECIFIED ORGANISM SNOMED Code(s): 171424348 (5) Fibromyalgia Current Visit: No Status: Acute Code(s): M79.7 - FIBROMYALGIA SNOMED Code(s): 495127335 (6) Generalized weakness Current Visit: Yes Status: Acute Code(s): R53.1 - WEAKNESS SNOMED Code(s): 09485136 (7) Immobility Current Visit: Yes Status: Acute Code(s): Z74.09 - OTHER REDUCED MOBILITY SNOMED Code(s): 690241399 Plan: Appropriate supportive care. She seems to be doing quite well given her Covid. We'll continue to follow with consultants. Check CBC and CMP in a.m. Increase ambulation. She is slowly needing less baseline oxygen which is overall improvement in her prognosis Again, transfuse 1 unit PRBC.
[2020-04-29 17:09] LABS: Glucose,Whole Blood 287 mg/dL (75-99)
[2020-04-29 21:09] LABS: Glucose,Whole Blood 193 mg/dL (75-99)
[2020-04-29] MEDS: traMADol 50 MG TAB PO PRN (21:21)
[2020-04-29] MEDS: FLUCONAZOLE 100 MG TAB PO SCH (21:21)
[2020-04-29] MEDS: AMITRIPTYLINE HCL 50 MG TAB PO SCH (21:22)
--- NOTE | 2020-04-29 22:24 | PN ---
PROGRESS NOTE DATE OF SERVICE: 05/08/2020 REASON FOR FOLLOWUP: 1. Enterococcus UTI and bacteremia. 2. Leukocytosis. INTERVAL HISTORY: The patient is currently afebrile. The patient has been breathing comfortably. Denies having any chest pain or shortness of breath or cough. No nausea, no vomiting, no abdominal pain or diarrhea. PHYSICAL EXAMINATION: Blood pressure 117/61 with a pulse of 76, temperature 97.9. She is 93% on 4 L nasal cannula. General description is an elderly female lying in bed in no distress. RESPIRATORY SYSTEM: Unlabored breathing. Clear to auscultation anteriorly. HEART: S1, S2. Regular rate and rhythm. ABDOMEN: Soft. No tenderness. LABS: Hemoglobin is 6.5, white count 6.4, BUN of 24, creatinine 0.5. DIAGNOSTIC IMPRESSION AND PLAN: Patient with Enterococcus faecalis bacteremia and vancomycin-resistant Enterococcus urinary tract infection. Patient's underlying infection has been adequately treated. Repeat blood cultures have been negative. The patient is currently afebrile, white count normal. We will monitor the patient closely off antibiotic therapy and continue with supportive care. MMODL / IJN: [id number] /
[2020-04-30] MEDS: SODIUM CHLORIDE 0.9% 1,000 ML IV SCH ×2 (05:44→17:40)
[2020-04-30 06:54] LABS: Anisocytosis Slight; HCT 25.4 % (34.0-46.0); Hypochromasia Slight; MCH 29.3 pg (25.0-35.0); MCHC 33.7 g/dL (31.0-37.0); MCV 86.9 fL (80.0-100.0); Mean Platelet Volume 7.1; Platelet Count 278 k/uL (150-450); Poikilocytosis Slight; RBC 2.93 m/uL (3.80-5.40); RDW 17.7 % (11.5-15.5); WBC 6.8 k/uL (3.8-10.6)
[2020-04-30 07:06] LABS: HGB 8.6 gm/dL (11.4-16.0)
[2020-04-30 07:28] LABS: Glucose,Whole Blood 113 mg/dL (75-99)
[2020-04-30] MEDS: INSULIN ASPART (NovoLOG) 100 UNIT/ML VIAL SQ SCH ×4 (07:50→21:06)
[2020-04-30] MEDS: hydrALAZINE HCL 25 MG TAB PO SCH ×3 (09:40→21:06)
[2020-04-30] MEDS: amLODIPine 5 MG TAB PO SCH ×2 (09:40→21:04)
[2020-04-30] MEDS: ASCORBIC ACID 500 MG TAB PO SCH ×2 (09:40→09:41)
[2020-04-30] MEDS: ENOXAPARIN 40 MG/0.4 ML SYRINGE SQ SCH (09:40)
[2020-04-30] MEDS: methylPREDNISolone SOD SUCCI 40 MG/ML 1 ML VIAL IV SCH (09:41)
[2020-04-30] MEDS: PANTOPRAZOLE 40 MG TABLET PO SCH ×2 (09:41→21:05)
[2020-04-30] MEDS: CHOLECALCIFEROL 400 UNIT TAB PO SCH (09:41)
[2020-04-30] MEDS: SERTRALINE 100 MG TAB PO SCH (09:42)
[2020-04-30] MEDS: ZINC SULFATE 220 MG CAP PO SCH (09:42)
[2020-04-30 10:22] LABS: African American GFR (CKD) 101.7 (60.0-200.0); Albumin 2.9 g/dL (3.80-4.90); Albumin/Globulin Ratio 1.53 (1.60-3.17); Anion Gap 6.4 mmol/L (4.00-12.00); BUN/Creat Ratio 31.43 Ratio (12.00-20.00); Calcium 7.6 mg/dL (8.7-10.3); Carbon Dioxide 23.6 mmol/L (21.6-31.8); Globulin 1.9 g/dL (1.6-3.3); Non-African American GFR(CKD) 87.8 (60.0-200.0); Potassium 4.1 mmol/L (3.5-5.5); Total Bilirubin 0.6 mg/dL (0.2-1.2); Total Protein 4.8 g/dL (6.2-8.2)
--- NOTE | 2020-04-30 10:31 | P.PN ---
Subjective Progress Note Date: 04/30/20 Principal diagnosis: Acute hypoxic respiratory failure Covid19 pneumonia Acute respiratory and metabolic acidosis Acute hepatitis/elevated liver enzymes Acute diastolic heart failure and fluid overload Chronic anemia Fibromyalgia Hypertension hypertensive cardiovascular disease 04/30/2020, patient remain on on supplemental oxygen 4 L arousable sitting upright in chair breathing comfortably, continue to increase activity as tolerated including physical therapy and go patient therapy and rehab, 04/29/2020, patient sitting upright on the bed, on 4 L oxygen, gradually being titrated down, patient continued to have physical therapy, hemoglobin is again down to 6.5, patient will be transfused with 1 unit of packed RBC, recommend check stool for occult blood as well 04/28/2020, patient is sleeping comfortably on 4 L oxygen, oxygen saturation is gradually being titrated down patient continue to get physical therapy as well her in physical therapy advice to increase oxygen before him, status post her one-year of packed RBC blood transfusion 04/27/2020, patient seen eval examined sitting upright in chair breathing comfortably on 4 L oxygen, saturation is 96%, hemoglobin is 6.2 patient is being arranged for blood transfusion, down from 7.1 yesterday, 04/25/2020, patient seen eval examined during rounds labs reviewed medications reviewed care plan discussed, respiratory status remains stable, however during activity and exertion does drop down at 5 L oxygen saturation is mid 90s but with physical therapy dropped down to 80s, recommended before exertion oxygen to be bumped up to 8 L 04/24/2020, patient seen eval examined during the rounds labs reviewed medications reviewed care plan discussed, respiratory status remains marginal now patient requires 8 L as he was noted to have significant dysphagia and desaturation during physical therapy into 70s, she is been settling down her sats most recent 9394% now 04/23/2020, patient seen eval examined labs reviewed medications reviewed care plan discussed, respiratory status remains stable, patient is now on 4 L sitting upright on the chair finished her breakfast appears very well awake and alert continue supportive care oxygen saturation is now 98% 04/22/2020, patient seen eval examined during the rounds labs reviewed medications reviewed care plan discussed, respiratory status continued to be stable currently patient over a liter oxygen sitting upright on the bed breathing comfortably, oxygen demand however continued to be high, oxygen saturation 95-88%, 04/21/2020, patient seen eval examined, slightly more short of breath appetite poor did not consume more than one fourth of tray, remains very weak, oxygen requirement increased to 8 L, somnolent but arousable, will decrease his steroid to once a day 04/20/2020, patient continued do well, oxygen is down to 6 L now from 7 L, patient appetite and mental status continued to improve will continue current plan of care 04/19/2020, patient seen eval examined during the rounds labs reviewed medications reviewed, patient is now down to 8 L from 10 L, saturation is mid 90s, respiratory status stable, we'll continue titrated oxygen down as tolerated slowly 2-3 L in 24 hours as tolerated 04/18/2020, patient seen eval examined during the rounds labs reviewed medications reviewed respiratory status remains stable denies any chest pain, patient remains on high flow oxygen, saturation well, discussed was titrated down as tolerated, labs reviewed medications reviewed, currently patient is on 10 L 45% airvo 04/17/2020, patient seen eval examined more awake and alert breathing comfortably no obvious distress is present, oxygen being titrated down off of high flow and airvo, on 15 L high flow saturating low to mid 80s and dropped down some back on aerosolized oxygen, mental status more clear tolerating by mouth well extremely weak continued PT OT and supportive care 04/16/2020, patient seen eval examined during the rounds respiratory status continued to improve so as the mental status however is still on high flow air VO oxygen 04/15/2020, patient seen eval examined during the rounds labs reviewed medications reviewed care plan discussed, patient remains on high flow oxygen 15 L 70% oxygen saturation remains marginal low 90s to high 80s previously today noted to be 94%, patient has been tolerating by mouth well, has been moved down from the ICU labs from today reviewed slight hyponatremia noted otherwise fairly within normal limit patient remains on Lovenox along with daptomycin fluconazole, IV steroids, patient has finished usual therapy for covid19 pneumonia 04/14/2020, patient remains on 50% oxygen 70L, awake slightly confused, shortness of breath is not obvious hemodynamic status stable tolerating by mouth well patient will be moved out of the ICU when bed available 04/13/2020, patient seen eval examined during the rounds labs reviewed medications reviewed care plan discussed with the staff, respiratory status remains stable continued to be on the 75% oxygen 15 L high flow, remains afebrile remains on antibiotics patient will be transferred to [facility] with remote telemetry date on today 04/12/2020, patient seen eval examined during rounds labs reviewed medications reviewed, respiratory status remains unchanged, patient remains on 15 L 75% oxygen unable to titrate oxygen down, appetite continued to improve, patient able to swallow well, labs reviewed medications reviewed care plan discussed with the staff at length, patient can be moved out to [facility] with remote telemetry 04/11/2020, patient seen eval examined during evaluation patient noted to be more awake and alert compared to prior exam however patient remains on 15 L 75% aerosolized oxygen high flow, no obvious distress present patient remains afebrile, remains on broad-spectrum antibiotics and usual care for coronary 19 pneumonia April 10 2020 patient seen eval examined sitting upright on the bed breathing comfortably, patient remains on high flow oxygen 15 L 75%, swallow evaluation completed patient able to swallow well will start by mouth blood pressure problem remains an issue we will increase the dose of Norvasc continue oral hydralazine monitor blood pressure closely, absolute reviewed x-ray reviewed continued to show bilateral interstitial infiltrate predominantly in mid part and basis 04/09/2020, patient seen eval examined in the ICU, respiratory status remains marginal but stable, patient is on 80% aerosolized oxygen 15 L, saturation is 90%, more awake and alert, swallowing functions will be reassessed later on today by speech therapist, mental status changes agitated behavior and confusion remains an issue which causes blood pressure to go up as well, 04/08/2020, patient seen eval examined during the rounds labs reviewed medications reviewed care plan discussed, patient remains on BiPAP 15/5 with 70% oxygen, oxygen saturation 94% more awake alert, will try high flow aerosolized oxygen, blood culture positive for gram positive cocci in chain, patient is on IV vancomycin he is following 04/07/2020, patient seen eval examined during the rounds labs reviewed medications reviewed, mental status remains stable slightly improved however, patient intermittently get anxious and agitated, low-grade temperature 90 is present hemodynamically stable though, saturation is 90% to 93% on partial nonrebreather mask, chest x-ray remains stable, white cell count remains elevated, 04/06/2020, patient seen eval examined during the rounds labs reviewed medications reviewed, patient remains off of ventilator, mental status slightly better today compared to last 24-48 hours less agitated awake oriented 1 now, remains on partial nonrebreather mask, saturation is 94%, LAD pressure slightly running on the higher side remains on IV hydralazine, oxygen saturation is 94% to 96%, 04/05/2020, patient seen eval reexamined successfully weaned and extubated yesterday has been on supplemental oxygen 2-4 L, in the last 8-12 hours however decompensation in oxygenation status as well as patient even though awake but remains agitated appears to have a agitated delirium, does require Dilaudid at a regular interval, remains afebrile, oxygen saturation is 99% on 10 L nonrebreather mask, patient cannot take by mouth medicines are listed IV, will try morphine as needed DC Dilaudid, 04/04/2020, patient seen eval examined during the rounds labs reviewed medications reviewed care plan discussed, patient is awake now remains off of propofol since yesterday, does make intermittent eye contact, remains slightly withdrawn however, respiratory status stable, remains on assist control mode rate of 24, tidal volume is 450, +5 of PEEP, 40% oxygen, peak airway pressure stable, chest x-ray shows bilateral diffuse interstitial infiltrate stable ET tube and NG tube in PICC line, white cell count is 13,400, hemoglobin and hematocrit stable 9.4 and 31, arterial blood gases reviewed pH is 7.4 to pCO2 32 pO2 64, BUN/creatinine is 32 and 0.5, patient is reviewed Lovenox remains 2040 mg subcu twice a day on IV furosemide, Solu-Medrol is 60 mg IV every 6 we'll decrease it to every 12 04/03/2020, patient seen eval examined during rounds labs reviewed medications reviewed, care plan discussed, overall hemodynamically he remains stable blood pressure spiked up on hydralazine when necessary, seems to be helping, patient sedated with propofol drip 50 mics, attempts for weaning of protocol has been unsuccessful as patient becomes agitated, attempted Precedex drip has been unsuccessful as well, current vent settings include assist control rate of 24 breathing 24, FiO2 is 40%, PEEP is 5, tidal volume is 450, chest x-ray stable ET tube with bilateral multifocal infiltrate with consolidation consistent with cold with 19 pneumonia not essentially much change from the prior x-ray, ET tube and NG tube was stable, patient is getting tube feed bolus feeding, labs including ABG chemistry reviewed 04/02/2020, patient seen eval examined during the rounds labs reviewed medications reviewed care plan discussed, patient remains sedated with propofol on ventilator for full ventilator support, currently patient is on assist control mode rate Tuesday for breathing 24, tidal volume is 450, 5 of PEEP, 40% oxygen, propofol is 50 mics, chest x-ray from today reviewed continue show patchy bilateral infiltrate without any significant interval change, arterial blood gases revealed pH of 7.43 pCO2 32, C-reactive protein is down to 21, BUN/creatinine is 34/.49, white cell count and hemoglobin remained stable, medications reviewed, she remains on broad-spectrum antibiotic with cephapirin, Lovenox, gentle diuresis with Lasix, blood pressure control with IV hydralazine, patient remains on high-dose IV steroids, discussed with the staff at length, will stop the propofol drip and once patient is awake put on CPAP 5 pressure support of 5 gas after half an hour also check weaning parameters 04/01/2020, patient seen eval examined labs reviewed medications reviewed care plan discussed with the staff at length patient had a sedation holiday today she is arousable and awake follows simple commands with blood pressure went up becomes agitated anxious requiring a reinitiation of propofol drip, ventilator setting remains unchanged, patient is on rate of 24 tidal volume is 450, PEEP is 5, oxygen is 40%, chest x-ray from today reviewed remains overall stable with stable lines and tubes 03/31/2020, patient seen eval examined during the rounds labs reviewed medications reviewed care plan discussed, patient remains on full ventilator support, propofol was changed to Precedex but however patient becomes agitated so back on propofol when setting remains unchanged have been on assist control rate of 24, PEEP is 5, FiO2 is 40%, tidal volume of 450, care plan discussed with the staff at length critical care time 35 minutes 03/30/2020, patient seen eval examined during the rounds labs reviewed medicatio ns reviewed, remains sedated with propofol, current vent setting include his control rate of 24 breathing 24 tidal volume is 450, deep is 5 now, FiO2 is 40%, tolerating tube feed very well, chest x-ray reviewed slightly better but stable bilateral infiltrate consistent with atypical pneumonia, patient continued IVs very well with 20 mg Lasix daily, white cell count remained stable, with stable hemoglobin and however decreasing platelet count noted, dear blood gases revealed pH of 7.4 to pCO2 34 pO2 of 62, BUN/creatinine is 36 and 0.62, left he continue show downward trend, inflammatory markers reviewed still elevated but showing a downward trend 03/29/2020, patient seen eval examined during the rounds labs reviewed medications reviewed, care plan discussed with the nursing staff at length, patient has been on assist control rate of the 24 PEEP of 8 400 tidal volume 50% oxygen, ventilator has been adjusted with reduction in PEEP and oxygen, patient's saturation remained stable 91-92%, next step he is to stop propofol and reassess the mental status and if patient remains stable oxygen randolph and hemodynamics can do a CPAP pressure support trial in the meantime we'll continue IV steroids, antibiotics, CBC and ABG reviewed, today's chest x-ray showed bilateral interstitial infiltrate, predominantly at the bases, patient has been on Lasix 20 mg daily diuresing very well, critical care time 35 minutes 03/28/2020, patient seen eval examined during the rounds labs reviewed medications reviewed care plan discussed oxygen has been down to 40% now. The patient is PEEP of 8, otherwise ventilator setting remains stable, patient is scheduled for PICC line later on today, remains on propofol, remains on broad- spectrum antibiotics, labs from today has been reviewed hemoglobin is stable 7.9, d-dimer is 3.24, arterial blood gases stable pH is 7.41 pCO2 35 pO2 96, BUN/creatinine is 51 and 1.05, ferritin level remains more than 26,000, AST ALT continued decline however today is 367 and 558, C-reactive protein checked 69.5 her chest x-ray earlier than today remains there however appears to have slightly progressed 03/27/2020, patient seen eval examined during the rounds labs reviewed medications reviewed care plan discussed, propofol has been discontinued patient because very restless and anxious, we'll restart propofol, patient has been on full ventilator support assist control 24 tidal volume of 450, PEEP is 10, oxygen is 70%, arterial blood gases reviewed when lower the FiO2 to 60% now plan to bring down the FiO2 to 50% and PEEP of 8 next 24 hours, sputum and blood cul tures reviewed no growth so far, chest x-ray performed today reviewed significant improvement in infiltrates seen bilaterally, patient has a poor urine output throughout the night, 20 mg of Lasix was given put out 600 mL of urine patient continued to be on gentle hydration, remain on cefapime and Vanco, Lovenox Solu-Medrol multivitamin and vitamin C zinc and Lovenox, white cell count is stable 10,500 hemoglobin and hematocrit 7.2 and 24, general surgery has been following patient is considered to get EGD and colonoscopy once stable, arterial blood gas revealed pH of 7.39 pCO2 of 39 pO2 of 124, bicarb 25, liver enzymes continue to come down AST and ALT now is 944/809, hepatitis panel normal and nonreactive 03/26/2020, patient seen eval examined in the ICU care plan discussed with the staff, FiO2 has been down to 60%, patient remains on assist control tidal volume of 450, PEEP is 10, respiratory rate is 24 breathing with the respirator pH has been improved significantly, patient is making adequate urine chest x-ray compared with yesterday's x-ray some improvement have been noted, white cell count is 11,000, hemoglobin 7.9 which is stable, arterial blood gas improved to 7.39, pCO2 of 40, pO2 112, BUN/creatinine is 33/0.96, lactic acid was 5.9 down to 1.3 now, ferritin level noted to be 12,800, AST and ALT are 4014 100 with LDH over 21,500, today LFTs significantly improved AST is down to 2795 and ALT is 1222, pro calcitonin is 0.84, suspect some component of heart failure as well as pneumonia, will get an echocardiogram as well as start patient on broad-spectrum antibiotics with cefepime and Vanco Patient seen and evaluated examined in the emergency department, patient came into the ER from the office of Dr. Aleman due to progressive shortness of breath, patient has acute on chronic hypoxic respiratory failure on 4 L oxygen, also has issues associated with pneumonia presumed to be cold with 19, however, testing was negative, patient used to smoke in the remote past quit about 20-30 years ago due to severity or shortness of breath and hypoxia with saturation of 76% on 100% oxygen and respiratory distress patient was intubated due to poor tolerance on BiPAP, patient Covid testing came back positive, chest x-ray showing diffuse infiltrate she also has been noted to have elevated liver enzymes due to elevated liver enzymes will not start IV REMdesivir, Initial ABG pH is 7.18, pCO2 is 63 pO2 was only 33 Objective - Vital Signs Vital signs: Vital Signs Temp 98.5 F 04/30/20 04:30 Pulse 73 04/30/20 04:30 Resp 18 04/30/20 04:30 BP 124/66 04/30/20 04:30 Pulse Ox 92 L 04/30/20 04:30 Intake & Output 04/29/20 04/30/20 04/30/20 18:59 06:59 18:59 Intake Total 310 Output Total 600 700 Balance -290 -700 Weight 72.8 kg Intake: Blood Product 310 Rc As-1 Unit 310 [id number] Output: Urine 600 700 Other: Voiding Method Indwelling Catheter Indwelling Catheter - Exam Patient on 80% oxygen 15 L aerosolized saturation is 90% to 92% - Constitutional General appearance: average body habitus, mild distress, restless intermittently agitated - EENT Ears: bilateral: normal - Neck Carotids: bilateral: upstroke normal Thyroid: bilateral: normal size - Respiratory Respiratory: bilateral: diminished - Cardiovascular Rhythm: regular Heart sounds: normal: S1, S2 - Gastrointestinal General gastrointestinal: normal bowel sounds Patient is relatively more awake and alert compared to yesterday exam - Labs CBC & Chem 7: 04/30/20 06:08 04/30/20 06:08 Labs: Abnormal Lab Results - Last 24 Hours (Table) 04/27/20 04/29/20 04/29/20 Range/Units 08:47 05:09 11:01 RBC (3.80-5.40) m/uL Hgb (11.4-16.0) gm/dL Hct (34.0-46.0) % RDW (11.5-15.5) % Sodium 132 L (135-145) mmol/L Creatinine 0.5 L (0.6-1.5) mg/dL BUN/Creatinine Ratio 48.00 H (12.00-20.00) Ratio POC Glucose (mg/dL) 142 H (75-99) mg/dL Calcium 7.4 L (8.7-10.3) mg/dL ALT 45 H (8-44) U/L Total Protein 4.6 L (6.2-8.2) g/dL Albumin 2.80 L (3.80-4.90) g/dL Albumin/Globulin Ratio 1.56 L (1.60-3.17) g/dL Crossmatch See Detail 04/29/20 04/29/20 04/30/20 Range/Units 16:56 21:07 06:08 RBC 2.93 L (3.80-5.40) m/uL Hgb 8.6 L D (11.4-16.0) gm/dL Hct 25.4 L (34.0-46.0) % RDW 17.7 H (11.5-15.5) % Sodium (135-145) mmol/L Creatinine (0.6-1.5) mg/dL BUN/Creatinine Ratio (12.00-20.00) Ratio POC Glucose (mg/dL) 287 H 193 H (75-99) mg/dL Calcium (8.7-10.3) mg/dL ALT (8-44) U/L Total Protein (6.2-8.2) g/dL Albumin (3.80-4.90) g/dL Albumin/Globulin Ratio (1.60-3.17) g/dL Crossmatch 04/30/20 04/30/20 Range/Units 06:08 07:27 RBC (3.80-5.40) m/uL Hgb (11.4-16.0) gm/dL Hct (34.0-46.0) % RDW (11.5-15.5) % Sodium 130 L (135-145) mmol/L Creatinine (0.6-1.5) mg/dL BUN/Creatinine Ratio 31.43 H (12.00-20.00) Ratio POC Glucose (mg/dL) 113 H (75-99) mg/dL Calcium 7.6 L (8.7-10.3) mg/dL ALT (8-44) U/L Total Protein 4.8 L (6.2-8.2) g/dL Albumin 2.90 L (3.80-4.90) g/dL Albumin/Globulin Ratio 1.53 L (1.60-3.17) g/dL Crossmatch Assessment and Plan Assessment: Anemia of chronic disease Generalized weakness and medical debility Gram-positive bacteremia and VRE has been noted in urine blood on daptomycin Agitated delirium along with metabolic encephalopathy likely multifactorial including Covid 19 pneumonia, is being in ICU, for intubation long period time sepsis, slowly improving Acute hypoxic respiratory failure Covid19 pneumonia Thrombocytopenia stable Acute hepatitis/elevated liver enzymes Acute diastolic heart failure Chronic anemia Fibromyalgia Hypertension hypertensive cardiovascular disease Plan: Agree with blood transfusion 1 unit packed RBC Check stools for occult blood and consider GI consult if positive Proton pump inhibitors Continue supportive care, oxygen taper as tolerated Continue daptomycin IV steroids, taper as tolerated Further recommendations pending plan of care as per clinical response of patient Continue anticoagulation with Lovenox PT OT evaluation Monitor labs and sodium closely Time with Patient: Greater than 30
--- NOTE | 2020-04-30 10:36 | P.PN ---
<Naima Rascon A - Last Filed: 04/30/20 10:33> Subjective Progress Note Date: 04/30/20 HISTORY OF PRESENT ILLNESS This is a 69-year-old female patient treated for enterococcus VRE UTI and Enterococcus faecalis bacteremia. Patient continues to have a drop in pulse ox of 82% with minimal activity. Patient is getting up to a chair today and oxygen increased to 6 L. She is maintaining pulse ox of 92% on 4 L. Patient is been afebrile, heart rate 73, blood pressure 120/66. WBC 6.8, hemoglobin 8.6, creatinine 0.7. PHYSICAL EXAMINATION Gen: This is a 69-year-old female. She is resting in bed appears to be comfortable. HEENT: Head is atraumatic, normocephalic. Pupils equal, round. Sclerae is anicteric. NECK: Supple. No JVD. No lymphadenopathy. LUNGS: Clear to auscultation. No intercostal retractions. HEART: Regular rate and rhythm. No murmur. ABDOMEN: Soft. Bowel sounds are present. No masses. No tenderness. Quick catheter with slightly cloudy urine. EXTREMITIES: No pedal edema. No calf tenderness. NEUROLOGICAL: Patient is awake, alert and oriented x3. ASSESSMENT Enterococcus and VRE UTI Enterococcus faecalis bacteremia PLAN Continue daptomycin No antibiotics necessary at the time of discharge as patient has completed course Discontinue Quick catheter and monitor for retention Continue supportive care The above dictated assessment and findings were discussed with Dr. Blackburn. The impression and plan of care have been directed as dictated. Naima Rascon nurse practitioner acting as scribe for Dr. Blackburn. Objective - Vital Signs Vital signs: Vital Signs Temp 98.5 F 04/30/20 04:30 Pulse 73 04/30/20 04:30 Resp 18 04/30/20 04:30 BP 124/66 04/30/20 04:30 Pulse Ox 92 L 04/30/20 04:30 Intake & Output 04/29/20 04/30/20 04/30/20 18:59 06:59 18:59 Intake Total 310 Output Total 600 700 Balance -290 -700 Weight 72.8 kg Intake: Blood Product 310 Rc As-1 Unit 310 [id number] Output: Urine 600 700 Other: Voiding Method Indwelling Catheter Indwelling Catheter - Labs CBC & Chem 7: 04/30/20 06:08 04/30/20 06:08 Labs: Abnormal Lab Results - Last 24 Hours (Table) 04/27/20 04/29/20 04/29/20 Range/Units 08:47 05:09 11:01 RBC (3.80-5.40) m/uL Hgb (11.4-16.0) gm/dL Hct (34.0-46.0) % RDW (11.5-15.5) % Sodium 132 L (135-145) mmol/L Creatinine 0.5 L (0.6-1.5) mg/dL BUN/Creatinine Ratio 48.00 H (12.00-20.00) Ratio POC Glucose (mg/dL) 142 H (75-99) mg/dL Calcium 7.4 L (8.7-10.3) mg/dL ALT 45 H (8-44) U/L Total Protein 4.6 L (6.2-8.2) g/dL Albumin 2.80 L (3.80-4.90) g/dL Albumin/Globulin Ratio 1.56 L (1.60-3.17) g/dL Crossmatch See Detail 04/29/20 04/29/20 04/30/20 Range/Units 16:56 21:07 06:08 RBC 2.93 L (3.80-5.40) m/uL Hgb 8.6 L D (11.4-16.0) gm/dL Hct 25.4 L (34.0-46.0) % RDW 17.7 H (11.5-15.5) % Sodium (135-145) mmol/L Creatinine (0.6-1.5) mg/dL BUN/Creatinine Ratio (12.00-20.00) Ratio POC Glucose (mg/dL) 287 H 193 H (75-99) mg/dL Calcium (8.7-10.3) mg/dL ALT (8-44) U/L Total Protein (6.2-8.2) g/dL Albumin (3.80-4.90) g/dL Albumin/Globulin Ratio (1.60-3.17) g/dL Crossmatch 04/30/20 Range/Units 07:27 RBC (3.80-5.40) m/uL Hgb (11.4-16.0) gm/dL Hct (34.0-46.0) % RDW (11.5-15.5) % Sodium (135-145) mmol/L Creatinine (0.6-1.5) mg/dL BUN/Creatinine Ratio (12.00-20.00) Ratio POC Glucose (mg/dL) 113 H (75-99) mg/dL Calcium (8.7-10.3) mg/dL ALT (8-44) U/L Total Protein (6.2-8.2) g/dL Albumin (3.80-4.90) g/dL Albumin/Globulin Ratio (1.60-3.17) g/dL Crossmatch <Abhijeet Blackburn - Last Filed: 04/30/20 21:42> Subjective completed daptomycin , currently off antibiotics Objective - Vital Signs Vital signs: Vital Signs Temp 98.3 F 04/30/20 16:54 Pulse 85 04/30/20 16:54 Resp 17 04/30/20 16:54 BP 130/64 04/30/20 16:54 Pulse Ox 97 04/30/20 16:54 Intake & Output 04/30/20 04/30/20 05/01/20 06:59 18:59 06:59 Intake Total 600 Output Total 700 Balance -700 600 Weight 72.8 kg Intake: IV 600 Sodium Chloride 0.9% 1, 600 000 ml @ 50 mls/hr IV . Q20H [facility] Rx#:[id number] Output: Urine 700 Other: Voiding Method Indwelling Catheter Indwelling Catheter - Labs CBC & Chem 7: 04/30/20 06:08 04/30/20 06:08 Labs: Abnormal Lab Results - Last 24 Hours (Table) 04/30/20 04/30/20 04/30/20 Range/Units 06:08 06:08 07:27 RBC 2.93 L (3.80-5.40) m/uL Hgb 8.6 L D (11.4-16.0) gm/dL Hct 25.4 L (34.0-46.0) % RDW 17.7 H (11.5-15.5) % Sodium 130 L (135-145) mmol/L BUN/Creatinine Ratio 31.43 H (12.00-20.00) Ratio POC Glucose (mg/dL) 113 H (75-99) mg/dL Calcium 7.6 L (8.7-10.3) mg/dL Total Protein 4.8 L (6.2-8.2) g/dL Albumin 2.90 L (3.80-4.90) g/dL Albumin/Globulin Ratio 1.53 L (1.60-3.17) g/dL 04/30/20 04/30/20 04/30/20 Range/Units 11:38 16:47 20:04 RBC (3.80-5.40) m/uL Hgb (11.4-16.0) gm/dL Hct (34.0-46.0) % RDW (11.5-15.5) % Sodium (135-145) mmol/L BUN/Creatinine Ratio (12.00-20.00) Ratio POC Glucose (mg/dL) 337 H 369 H 251 H (75-99) mg/dL Calcium (8.7-10.3) mg/dL Total Protein (6.2-8.2) g/dL Albumin (3.80-4.90) g/dL Albumin/Globulin Ratio (1.60-3.17) g/dL
--- NOTE | 2020-04-30 10:45 | P.PN ---
<Ana Parks - Last Filed: 04/30/20 10:37> Subjective Progress Note Date: 04/30/20 CHIEF COMPLAINT: GI bleed HISTORY OF PRESENT ILLNESS: Patient has had prolonged hospitalization with respiratory failure due to Covid 19 infection. She also has enterococcus and VRE UTI and enterococcus bacteremia. Surgical service is following for patient's GI bleed and recurrent anemia. Patient has had no active bleeding. Patient received 1 unit of blood yesterday. Hemoglobin has increased from 6.5 to 8.6. Nursing staff had to lift patient to place her in bedside chair. Patient is very weak. Patient is being evaluated for possible rehab placement. Afebrile. WBC 6.8 AST 21 ALT 43 Patient continues to decline having endoscopies completed during her hospitalization. PHYSICAL EXAM: VITAL SIGNS: Reviewed. GENERAL: Well-developed in no acute distress. HEENT: No sclera icterus. Extraocular movements grossly intact. Moist buccal mucosa. Head is atraumatic, normocephalic. ABDOMEN: Soft. Nondistended. Nontender. NEUROLOGIC: Alert and orientated. Cranial nerves II through XII grossly intact ASSESSMENT: 1. Acute on chronic anemia due to possible GI source. Patient not having any active bleeding. 3. Elevated liver enzymes with large gallstone present on abdominal ultrasound. LFTs are now normal 4. Acute hypoxic respiratory failure due to COVID 19 infection requiring to be intubated. Patient was successfully extubated on 04/04/2020 5. Constipation Plan: -Recommended upper and lower endoscopy. Patient currently is not interested in having any endoscopy completed. -Continue to monitor patient's hemoglobin -Continue to monitor for active bleeding -Continue Protonix -Continue supportive care Physician Crm Campaign Manager note has been reviewed by physician. Signing provider agrees with the documented findings, assessment, and plan of care. Objective - Vital Signs Vital signs: Vital Signs Temp 98.5 F 04/30/20 04:30 Pulse 73 04/30/20 04:30 Resp 18 04/30/20 04:30 BP 124/66 04/30/20 04:30 Pulse Ox 92 L 04/30/20 04:30 Intake & Output 04/29/20 04/30/20 04/30/20 18:59 06:59 18:59 Intake Total 310 Output Total 600 700 Balance -290 -700 Weight 72.8 kg Intake: Blood Product 310 Rc As-1 Unit 310 [id number] Output: Urine 600 700 Other: Voiding Method Indwelling Catheter Indwelling Catheter - Labs CBC & Chem 7: 04/30/20 06:08 04/30/20 06:08 Labs: Abnormal Lab Results - Last 24 Hours (Table) 04/27/20 04/29/20 04/29/20 Range/Units 08:47 05:09 11:01 RBC (3.80-5.40) m/uL Hgb (11.4-16.0) gm/dL Hct (34.0-46.0) % RDW (11.5-15.5) % Sodium 132 L (135-145) mmol/L Creatinine 0.5 L (0.6-1.5) mg/dL BUN/Creatinine Ratio 48.00 H (12.00-20.00) Ratio POC Glucose (mg/dL) 142 H (75-99) mg/dL Calcium 7.4 L (8.7-10.3) mg/dL ALT 45 H (8-44) U/L Total Protein 4.6 L (6.2-8.2) g/dL Albumin 2.80 L (3.80-4.90) g/dL Albumin/Globulin Ratio 1.56 L (1.60-3.17) g/dL Crossmatch See Detail 04/29/20 04/29/20 04/30/20 Range/Units 16:56 21:07 06:08 RBC 2.93 L (3.80-5.40) m/uL Hgb 8.6 L D (11.4-16.0) gm/dL Hct 25.4 L (34.0-46.0) % RDW 17.7 H (11.5-15.5) % Sodium (135-145) mmol/L Creatinine (0.6-1.5) mg/dL BUN/Creatinine Ratio (12.00-20.00) Ratio POC Glucose (mg/dL) 287 H 193 H (75-99) mg/dL Calcium (8.7-10.3) mg/dL ALT (8-44) U/L Total Protein (6.2-8.2) g/dL Albumin (3.80-4.90) g/dL Albumin/Globulin Ratio (1.60-3.17) g/dL Crossmatch 04/30/20 04/30/20 Range/Units 06:08 07:27 RBC (3.80-5.40) m/uL Hgb (11.4-16.0) gm/dL Hct (34.0-46.0) % RDW (11.5-15.5) % Sodium 130 L (135-145) mmol/L Creatinine (0.6-1.5) mg/dL BUN/Creatinine Ratio 31.43 H (12.00-20.00) Ratio POC Glucose (mg/dL) 113 H (75-99) mg/dL Calcium 7.6 L (8.7-10.3) mg/dL ALT (8-44) U/L Total Protein 4.8 L (6.2-8.2) g/dL Albumin 2.90 L (3.80-4.90) g/dL Albumin/Globulin Ratio 1.53 L (1.60-3.17) g/dL Crossmatch <William Henry - Last Filed: 04/30/20 11:40> Subjective As above. Patient states she discussed her desire to wait on endoscopy for chronic GI bleed with Dr. Aleman until she is more stable from her recent Covid infection. I was able to speak with him this morning and he supports her decision at this time which is not unreasonable. We'll sign off. Please call if active GI bleeding noted. Otherwise we'll plan outpatient upper and lower endoscopy once more stable. Objective - Vital Signs Vital signs: Vital Signs Temp 98.5 F 04/30/20 04:30 Pulse 73 04/30/20 04:30 Resp 18 04/30/20 04:30 BP 124/66 04/30/20 04:30 Pulse Ox 92 L 04/30/20 04:30 Intake & Output 04/29/20 04/30/20 04/30/20 18:59 06:59 18:59 Intake Total 310 Output Total 600 700 Balance -290 -700 Weight 72.8 kg Intake: Blood Product 310 Rc As-1 Unit 310 [id number] Output: Urine 600 700 Other: Voiding Method Indwelling Catheter Indwelling Catheter Indwelling Catheter - Labs CBC & Chem 7: 04/30/20 06:08 04/30/20 06:08 Labs: Abnormal Lab Results - Last 24 Hours (Table) 04/27/20 04/29/20 04/29/20 Range/Units 08:47 16:56 21:07 RBC (3.80-5.40) m/uL Hgb (11.4-16.0) gm/dL Hct (34.0-46.0) % RDW (11.5-15.5) % Sodium (135-145) mmol/L BUN/Creatinine Ratio (12.00-20.00) Ratio POC Glucose (mg/dL) 287 H 193 H (75-99) mg/dL Calcium (8.7-10.3) mg/dL Total Protein (6.2-8.2) g/dL Albumin (3.80-4.90) g/dL Albumin/Globulin Ratio (1.60-3.17) g/dL Crossmatch See Detail 04/30/20 04/30/20 04/30/20 Range/Units 06:08 06:08 07:27 RBC 2.93 L (3.80-5.40) m/uL Hgb 8.6 L D (11.4-16.0) gm/dL Hct 25.4 L (34.0-46.0) % RDW 17.7 H (11.5-15.5) % Sodium 130 L (135-145) mmol/L BUN/Creatinine Ratio 31.43 H (12.00-20.00) Ratio POC Glucose (mg/dL) 113 H (75-99) mg/dL Calcium 7.6 L (8.7-10.3) mg/dL Total Protein 4.8 L (6.2-8.2) g/dL Albumin 2.90 L (3.80-4.90) g/dL Albumin/Globulin Ratio 1.53 L (1.60-3.17) g/dL Crossmatch Assessment and Plan (1) GI bleed Current Visit: Yes Status: Acute Code(s): K92.2 - GASTROINTESTINAL HEMORRHAGE, UNSPECIFIED SNOMED Code(s): 05833462
[2020-04-30 11:39] LABS: Glucose,Whole Blood 337 mg/dL (75-99)
[2020-04-30] MEDS: SENNOSIDES 8.6 MG TAB PO PRN (12:39)
[2020-04-30] MEDS: traMADol 50 MG TAB PO PRN ×2 (12:39→21:16)
[2020-04-30 16:49] LABS: Glucose,Whole Blood 369 mg/dL (75-99)
[2020-04-30 20:05] LABS: Glucose,Whole Blood 251 mg/dL (75-99)
[2020-04-30] MEDS: AMITRIPTYLINE HCL 50 MG TAB PO SCH (21:04)
[2020-04-30] MEDS: FLUCONAZOLE 100 MG TAB PO SCH (21:04)
--- NOTE | 2020-04-30 22:25 | P.PN ---
Subjective Principal diagnosis: Respiratory failure related Covid pneumonia.. Otherwise appreciate multiple consultants input. The patient is now on a general medical floor lucid and recovering appropriately. She still needing quite a bit of oxygen support but is improving. She has had a slight drop in hemoglobin which is not unusual for her. Colonoscopy was deferred related to >She has been tolerating significant hypoxia is been documented. We have now started to try to increase physical therapy. The patient and I had a long discussion regardiain that this time and will ag we did talk to the patient about possibly getting the need for transfusion given her anemia. Objective - Vital Signs Vital signs: Vital Signs Temp 98.3 F 04/30/20 16:54 Pulse 85 04/30/20 16:54 Resp 17 04/30/20 16:54 BP 130/64 04/30/20 16:54 Pulse Ox 97 04/30/20 16:54 Intake & Output 04/30/20 04/30/20 05/01/20 06:59 18:59 06:59 Intake Total 600 Output Total 700 Balance -700 600 Weight 72.8 kg Intake: IV 600 Sodium Chloride 0.9% 1, 600 000 ml @ 50 mls/hr IV . Q[facility]H [facility] Rx#:[id number] Output: Urine 700 Other: Voiding Method Indwelling Catheter Indwelling Catheter - Constitutional General appearance: Present: average body habitus - EENT Eyes: Absent: abnormal pupil - Neck Neck: Absent: lymphadenopathy - Respiratory Respiratory: bilateral: CTA - Cardiovascular Rhythm: regular Heart sounds: normal: S1, S2 Abnormal Heart Sounds: Absent: S3 Gallop - Gastrointestinal General gastrointestinal: Present: soft. Absent: tenderness - Integumentary Integumentary: Present: normal - Neurologic Neurologic: Present: CNII-XII intact - Labs CBC & Chem 7: 04/30/20 06:08 04/30/20 06:08 Labs: Abnormal Lab Results - Last 24 Hours (Table) 04/30/20 04/30/20 04/30/20 Range/Units 06:08 06:08 07:27 RBC 2.93 L (3.80-5.40) m/uL Hgb 8.6 L D (11.4-16.0) gm/dL Hct 25.4 L (34.0-46.0) % RDW 17.7 H (11.5-15.5) % Sodium 130 L (135-145) mmol/L BUN/Creatinine Ratio 31.43 H (12.00-20.00) Ratio POC Glucose (mg/dL) 113 H (75-99) mg/dL Calcium 7.6 L (8.7-10.3) mg/dL Total Protein 4.8 L (6.2-8.2) g/dL Albumin 2.90 L (3.80-4.90) g/dL Albumin/Globulin Ratio 1.53 L (1.60-3.17) g/dL 04/30/20 04/30/20 04/30/20 Range/Units 11:38 16:47 20:04 RBC (3.80-5.40) m/uL Hgb (11.4-16.0) gm/dL Hct (34.0-46.0) % RDW (11.5-15.5) % Sodium (135-145) mmol/L BUN/Creatinine Ratio (12.00-20.00) Ratio POC Glucose (mg/dL) 337 H 369 H 251 H (75-99) mg/dL Calcium (8.7-10.3) mg/dL Total Protein (6.2-8.2) g/dL Albumin (3.80-4.90) g/dL Albumin/Globulin Ratio (1.60-3.17) g/dL Assessment and Plan (1) Acute respiratory distress syndrome Current Visit: Yes Status: Acute Code(s): J80 - ACUTE RESPIRATORY DISTRESS SYNDROME SNOMED Code(s): 06278842 (2) Anemia Current Visit: Yes Status: Acute Code(s): D64.9 - ANEMIA, UNSPECIFIED SNOMED Code(s): 463939117 (3) COVID-19 Current Visit: Yes Status: Acute Code(s): U07.1 - COVID-19 SNOMED Code(s): 112409107 (4) Pneumonia Current Visit: Yes Status: Acute Code(s): J18.9 - PNEUMONIA, UNSPECIFIED ORGANISM SNOMED Code(s): 337267017 (5) Fibromyalgia Current Visit: No Status: Acute Code(s): M79.7 - FIBROMYALGIA SNOMED Code(s): 841899506 (6) Generalized weakness Current Visit: Yes Status: Acute Code(s): R53.1 - WEAKNESS SNOMED Code(s): 26400595 (7) Immobility Current Visit: Yes Status: Acute Code(s): Z74.09 - OTHER REDUCED MOBILITY SNOMED Code(s): 663606046 Plan: Appropriate supportive care. She seems to be doing quite well given her Covid. We'll continue to follow with consultants. Check CBC and CMP in a.m. Increase ambulation. She is slowly needing less baseline oxygen which is overall improvement in her prognosis Continue DVT and GI prophylaxis.
[2020-05-01 06:57] LABS: Glucose,Whole Blood 128 mg/dL (75-99)
[2020-05-01] MEDS: INSULIN ASPART (NovoLOG) 100 UNIT/ML VIAL SQ SCH ×2 (07:03→12:39)
[2020-05-01] MEDS: amLODIPine 5 MG TAB PO SCH ×2 (08:33→08:38)
[2020-05-01] MEDS: CHOLECALCIFEROL 400 UNIT TAB PO SCH (08:33)
[2020-05-01] MEDS: ENOXAPARIN 40 MG/0.4 ML SYRINGE SQ SCH (08:33)
[2020-05-01] MEDS: SERTRALINE 100 MG TAB PO SCH (08:33)
[2020-05-01] MEDS: ZINC SULFATE 220 MG CAP PO SCH (08:33)
[2020-05-01] MEDS: PANTOPRAZOLE 40 MG TABLET PO SCH (08:34)
[2020-05-01] MEDS: ASCORBIC ACID 500 MG TAB PO SCH (08:34)
[2020-05-01] MEDS: methylPREDNISolone SOD SUCCI 40 MG/ML 1 ML VIAL IV SCH (08:34)
[2020-05-01] MEDS: hydrALAZINE HCL 25 MG TAB PO SCH ×2 (08:34→08:38)
--- NOTE | 2020-05-01 08:45 | P.PN ---
Subjective Principal diagnosis: Respiratory failure related Covid pneumonia.. Otherwise appreciate multiple consultants input. The patient is now on a general medical floor lucid and recovering appropriately. She still needing quite a bit of oxygen support but is improving. She has had a slight drop in hemoglobin which is not unusual for her. Colonoscopy was deferred related to >She has been tolerating significant hypoxia is been documented. We have now started to try to increase physical therapy. We will hold off on colonoscopy given her comorbidities. The patient will try to increase therapy and we will follow urinary retention closely as the patient has been struggling since Quick catheter has been removed. Objective - Vital Signs Vital signs: Vital Signs Temp 98.0 F 05/01/20 05:00 Pulse 75 05/01/20 05:00 Resp 16 05/01/20 05:00 BP 105/52 05/01/20 05:00 Pulse Ox 97 05/01/20 05:00 Intake & Output 04/30/20 05/01/20 05/01/20 18:59 06:59 18:59 Intake Total 600 590 480 Output Total 600 Balance 600 -10 480 Weight 74 kg Intake: IV 600 Sodium Chloride 0.9% 1, 600 000 ml @ 50 mls/hr IV . Q20H [facility] Rx#:[id number] Oral 590 480 Output: Urine 600 Uretheral (Quick) 600 Other: Voiding Method Indwelling Catheter - Constitutional General appearance: Present: no acute distress - EENT Eyes: Absent: abnormal pupil - Neck Neck: Absent: lymphadenopathy - Respiratory Respiratory: bilateral: diminished - Cardiovascular Rhythm: regular Heart sounds: normal: S1, S2 Abnormal Heart Sounds: Absent: S3 Gallop - Gastrointestinal General gastrointestinal: Present: soft. Absent: tenderness - Integumentary Integumentary: Absent: rash - Labs CBC & Chem 7: 04/30/20 06:08 04/30/20 06:08 Labs: Abnormal Lab Results - Last 24 Hours (Table) 04/30/20 04/30/20 04/30/20 Range/Units 06:08 11:38 16:47 Sodium 130 L (135-145) mmol/L BUN/Creatinine Ratio 31.43 H (12.00-20.00) Ratio POC Glucose (mg/dL) 337 H 369 H (75-99) mg/dL Calcium 7.6 L (8.7-10.3) mg/dL Total Protein 4.8 L (6.2-8.2) g/dL Albumin 2.90 L (3.80-4.90) g/dL Albumin/Globulin Ratio 1.53 L (1.60-3.17) g/dL 04/30/20 05/01/20 Range/Units 20:04 06:56 Sodium (135-145) mmol/L BUN/Creatinine Ratio (12.00-20.00) Ratio POC Glucose (mg/dL) 251 H 128 H (75-99) mg/dL Calcium (8.7-10.3) mg/dL Total Protein (6.2-8.2) g/dL Albumin (3.80-4.90) g/dL Albumin/Globulin Ratio (1.60-3.17) g/dL Assessment and Plan (1) Acute respiratory distress syndrome Current Visit: Yes Status: Acute Code(s): J80 - ACUTE RESPIRATORY DISTRESS SYNDROME SNOMED Code(s): 76938641 (2) Anemia Current Visit: Yes Status: Acute Code(s): D64.9 - ANEMIA, UNSPECIFIED SNOMED Code(s): 057427159 (3) COVID-19 Current Visit: Yes Status: Acute Code(s): U07.1 - COVID-19 SNOMED Code(s): 271426168 (4) Pneumonia Current Visit: Yes Status: Acute Code(s): J18.9 - PNEUMONIA, UNSPECIFIED ORGANISM SNOMED Code(s): 103767278 (5) Fibromyalgia Current Visit: No Status: Acute Code(s): M79.7 - FIBROMYALGIA SNOMED Code(s): 500412202 (6) Generalized weakness Current Visit: Yes Status: Acute Code(s): R53.1 - WEAKNESS SNOMED Code(s): 37454829 (7) Immobility Current Visit: Yes Status: Acute Code(s): Z74.09 - OTHER REDUCED MOBILITY SNOMED Code(s): 891400402 Plan: Appropriate supportive care. She seems to be doing quite well given her Covid. We'll continue to follow with consultants. Check CBC and CMP in a.m. Increase ambulation. She is slowly needing less baseline oxygen which is overall improvement in her prognosis Continue DVT and GI prophylaxis.
[2020-05-01 10:02] LABS: Anisocytosis Slight; HGB 9.8 gm/dL (11.4-16.0); Hypochromasia Slight; MCH 27.9 pg (25.0-35.0); MCHC 31.5 g/dL (31.0-37.0); MCV 88.6 fL (80.0-100.0); Mean Platelet Volume 6.9; Platelet Count 338 k/uL (150-450); Poikilocytosis Slight; RDW 17.5 % (11.5-15.5); WBC 8.5 k/uL (3.8-10.6)
[2020-05-01 10:13] LABS: ALT 46 U/L (4-34); AST 29 U/L (14-36); African American GFR (CKD) >90 (>60 ml/min/1.73 sqM); Albumin 3.1 g/dL (3.5-5.0); Alkaline Phosphatase 71 U/L (38-126); Anion Gap 6 mmol/L; Blood Urea Nitrogen 21 mg/dL (7-17); Calcium 8.3 mg/dL (8.4-10.2); Carbon Dioxide 22 mmol/L (22-30); Chloride 102 mmol/L (98-107); Glucose 151 mg/dL (74-99); Non-African American GFR(CKD) >90 (>60 ml/min/1.73 sqM); Sodium 130 mmol/L (137-145); Total Bilirubin 0.8 mg/dL (0.2-1.3); Total Protein 6.1 g/dL (6.3-8.2)
--- NOTE | 2020-05-01 11:06 | P.PN ---
Subjective Progress Note Date: 05/01/20 HISTORY OF PRESENT ILLNESS This is a 69-year-old female patient treated for enterococcus VRE UTI and Enter ococcus faecalis bacteremia. Pulse ox is improved today running 97% on 6 L high flow nasal cannula. Patient has been afebrile, heart rate 75, blood pressure 105/52. Patient had Quick cath removed yesterday and denies dysuria. W BC 8.5, hemoglobin 9.8, creatinine 0.52. PHYSICAL EXAMINATION Gen: This is a 69-year-old female. She is resting in bed appears to be comfortable. HEENT: Head is atraumatic, normocephalic. Pupils equal, round. Sclerae is anicteric. NECK: Supple. No JVD. No lymphadenopathy. LUNGS: Clear to auscultation. No intercostal retractions. HEART: Regular rate and rhythm. No murmur. ABDOMEN: Soft. Bowel sounds are present. No masses. No tenderness. EXTREMITIES: No pedal edema. No calf tenderness. NEUROLOGICAL: Patient is awake, alert and oriented x3. ASSESSMENT Enterococcus and VRE UTI Enterococcus faecalis bacteremia PLAN Continue daptomycin No antibiotics necessary at the time of discharge as patient has completed course Discontinue Quick catheter and monitor for retention Continue supportive care The above dictated assessment and findings were discussed with Dr. Blackburn. The impression and plan of care have been directed as dictated. Naima Rascon nurse practitioner acting as scribe for Dr. Blackburn. Objective - Vital Signs Vital signs: Vital Signs Temp 98.0 F 05/01/20 05:00 Pulse 75 05/01/20 05:00 Resp 16 05/01/20 05:00 BP 105/52 05/01/20 05:00 Pulse Ox 97 05/01/20 05:00 Intake & Output 04/30/20 05/01/20 05/01/20 18:59 06:59 18:59 Intake Total 600 590 480 Output Total 600 Balance 600 -10 480 Weight 74 kg Intake: IV 600 Sodium Chloride 0.9% 1, 600 000 ml @ 50 mls/hr IV . Q20H [facility] Rx#:[id number] Oral 590 480 Output: Urine 600 Uretheral (Quick) 600 Other: Voiding Method Indwelling Catheter - Labs CBC & Chem 7: 05/01/20 09:51 05/01/20 09:51 Labs: Abnormal Lab Results - Last 24 Hours (Table) 04/30/20 04/30/20 04/30/20 Range/Units 06:08 11:38 16:47 Sodium 130 L (135-145) mmol/L BUN/Creatinine Ratio 31.43 H (12.00-20.00) Ratio POC Glucose (mg/dL) 337 H 369 H (75-99) mg/dL Calcium 7.6 L (8.7-10.3) mg/dL Total Protein 4.8 L (6.2-8.2) g/dL Albumin 2.90 L (3.80-4.90) g/dL Albumin/Globulin Ratio 1.53 L (1.60-3.17) g/dL 04/30/20 05/01/20 Range/Units 20:04 06:56 Sodium (135-145) mmol/L BUN/Creatinine Ratio (12.00-20.00) Ratio POC Glucose (mg/dL) 251 H 128 H (75-99) mg/dL Calcium (8.7-10.3) mg/dL Total Protein (6.2-8.2) g/dL Albumin (3.80-4.90) g/dL Albumin/Globulin Ratio (1.60-3.17) g/dL
[2020-05-01 11:35] LABS: Glucose,Whole Blood 251 mg/dL (75-99)
[2020-05-01 11:40] VITALS: BP 121/70; PULSE 82; RESP 18; TEMP 98.2
[2020-05-01] MEDS: traMADol 50 MG TAB PO PRN (12:44)
[2020-05-01 12:55] VITALS: BMI 24.0
--- NOTE | 2020-05-01 12:57 | P.PN ---
Subjective Progress Note Date: 05/01/20 Principal diagnosis: Acute hypoxic respiratory failure Covid19 pneumonia Acute respiratory and metabolic acidosis Acute hepatitis/elevated liver enzymes Acute diastolic heart failure and fluid overload Chronic anemia Fibromyalgia Hypertension hypertensive cardiovascular disease 05/01/2020, patient seen evanson examined during the rounds labs reviewed medications reviewed care plan discussed, respiratory status remained stable however before activity and exertion FiO2 have been increased to 60 L, otherwise patient usually stable on 4 L, agree with placement in ECF IV steroids can be changed to Decadron 6 mg daily which can be stopped in 1 week 04/30/2020, patient remain on on supplemental oxygen 4 L arousable sitting upright in chair breathing comfortably, continue to increase activity as tolerated including physical therapy and go patient therapy and rehab, 04/29/2020, patient sitting upright on the bed, on 4 L oxygen, gradually being titrated down, patient continued to have physical therapy, hemoglobin is again down to 6.5, patient will be transfused with 1 unit of packed RBC, recommend check stool for occult blood as well 04/28/2020, patient is sleeping comfortably on 4 L oxygen, oxygen saturation is gradually being titrated down patient continue to get physical therapy as well her in physical therapy advice to increase oxygen before him, status post her one-year of packed RBC blood transfusion 04/27/2020, patient seen eval examined sitting upright in chair breathing comfortably on 4 L oxygen, saturation is 96%, hemoglobin is 6.2 patient is being arranged for blood transfusion, down from 7.1 yesterday, 04/25/2020, patient seen evanson examined during rounds labs reviewed medications reviewed care plan discussed, respiratory status remains stable, however during activity and exertion does drop down at 5 L oxygen saturation is mid 90s but wi th physical therapy dropped down to 80s, recommended before exertion oxygen to be bumped up to 8 L 04/24/2020, patient seen evanson examined during the rounds labs reviewed medications reviewed care plan discussed, respiratory status remains marginal now patient requires 8 L as he was noted to have significant dysphagia and desaturation during physical therapy into 70s, she is been settling down her sats most recent 9394% now 04/23/2020, patient seen eval examined labs reviewed medications reviewed care plan discussed, respiratory status remains stable, patient is now on 4 L sitting upright on the chair finished her breakfast appears very well awake and alert continue supportive care oxygen saturation is now 98% 04/22/2020, patient seen eval examined during the rounds labs reviewed medicat ions reviewed care plan discussed, respiratory status continued to be stable currently patient over a liter oxygen sitting upright on the bed breathing comfortably, oxygen demand however continued to be high, oxygen saturation 95- 88%, 04/21/2020, patient seen eval examined, slightly more short of breath appetite poor did not consume more than one fourth of tray, remains very weak, oxygen requirement increased to 8 L, somnolent but arousable, will decrease his steroid to once a day 04/20/2020, patient continued do well, oxygen is down to 6 L now from 7 L, patient appetite and mental status continued to improve will continue current plan of care 04/19/2020, patient seen eval examined during the rounds labs reviewed medications reviewed, patient is now down to 8 L from 10 L, saturation is mid 90s, respiratory status stable, we'll continue titrated oxygen down as tolerated slowly 2-3 L in 24 hours as tolerated 04/18/2020, patient seen eval examined during the rounds labs reviewed medic ations reviewed respiratory status remains stable denies any chest pain, patient remains on high flow oxygen, saturation well, discussed was titrated down as tolerated, labs reviewed medications reviewed, currently patient is on 10 L 45% airvo 04/17/2020, patient seen eval examined more awake and alert breathing comfortably no obvious distress is present, oxygen being titrated down off of high flow and airvo, on 15 L high flow saturating low to mid 80s and dropped down some back on aerosolized oxygen, mental status more clear tolerating by mouth well extremely weak continued PT OT and supportive care 04/16/2020, patient seen eval examined during the rounds respiratory status continued to improve so as the mental status however is still on high flow air VO oxygen 04/15/2020, patient seen eval examined during the rounds labs reviewed medications reviewed care plan discussed, patient remains on high flow oxygen 15 L 70% oxygen saturation remains marginal low 90s to high 80s previously today noted to be 94%, patient has been tolerating by mouth well, has been moved down from the ICU labs from today reviewed slight hyponatremia noted otherwise fairly within normal limit patient remains on Lovenox along with daptomycin fluconazole, IV steroids, patient has finished usual therapy for covid19 pneumonia 04/14/2020, patient remains on 50% oxygen 70L, awake slightly confused, shortnes s of breath is not obvious hemodynamic status stable tolerating by mouth well patient will be moved out of the ICU when bed available 04/13/2020, patient seen eval examined during the rounds labs reviewed medications reviewed care plan discussed with the staff, respiratory status remains stable continued to be on the 75% oxygen 15 L high flow, remains afebrile remains on antibiotics patient will be transferred to [facility] with remote telemetry date on today 04/12/2020, patient seen eval examined during rounds labs reviewed medications reviewed, respiratory status remains unchanged, patient remains on 15 L 75% oxygen unable to titrate oxygen down, appetite continued to improve, patient able to swallow well, labs reviewed medications reviewed care plan discussed with the staff at length, patient can be moved out to [facility] with remote telemetry 04/11/2020, patient seen eval examined during evaluation patient noted to be more awake and alert compared to prior exam however patient remains on 15 L 75% aerosolized oxygen high flow, no obvious distress present patient remains afebrile, remains on broad-spectrum antibiotics and usual care for coronary 19 pneumonia April 10 2020 patient seen eval examined sitting upright on the bed breathing comfortably, patient remains on high flow oxygen 15 L 75%, swallow evaluation completed patient able to swallow well will start by mouth blood pressure problem remains an issue we will increase the dose of Norvasc continue oral hydralazine monitor blood pressure closely, absolute reviewed x-ray reviewed continued to show bilateral interstitial infiltrate predominantly in mid part and basis 04/09/2020, patient seen eval examined in the ICU, respiratory status remains marginal but stable, patient is on 80% aerosolized oxygen 15 L, saturation is 90%, more awake and alert, swallowing functions will be reassessed later on today by speech therapist, mental status changes agitated behavior and confusion remains an issue which causes blood pressure to go up as well, 04/08/2020, patient seen eval examined during the rounds labs reviewed medications reviewed care plan discussed, patient remains on BiPAP 15/5 with 70% oxygen, oxygen saturation 94% more awake alert, will try high flow aerosolized oxygen, blood culture positive for gram positive cocci in chain, patient is on IV vancomycin he is following 04/07/2020, patient seen eval examined during the rounds labs reviewed medications reviewed, mental status remains stable slightly improved however, patient intermittently get anxious and agitated, low-grade temperature 90 is pre sent hemodynamically stable though, saturation is 90% to 93% on partial nonrebreather mask, chest x-ray remains stable, white cell count remains elevated, 04/06/2020, patient seen eval examined during the rounds labs reviewed medications reviewed, patient remains off of ventilator, mental status slightly better today compared to last 24-48 hours less agitated awake oriented 1 now, remains on partial nonrebreather mask, saturation is 94%, LAD pressure slightly running on the higher side remains on IV hydralazine, oxygen saturation is 94% to 96%, 04/05/2020, patient seen eval reexamined successfully weaned and extubated yesterday has been on supplemental oxygen 2-4 L, in the last 8-12 hours however decompensation in oxygenation status as well as patient even though awake but remains agitated appears to have a agitated delirium, does require Dilaudid at a regular interval, remains afebrile, oxygen saturation is 99% on 10 L nonrebreather mask, patient cannot take by mouth medicines are listed IV, will try morphine as needed DC Dilaudid, 04/04/2020, patient seen eval examined during the rounds labs reviewed medications reviewed care plan discussed, patient is awake now remains off of propofol since yesterday, does make intermittent eye contact, remains slightly withdrawn however, respiratory status stable, remains on assist control mode rate of 24, tidal volume is 450, +5 of PEEP, 40% oxygen, peak airway pressure stable, chest x-ray shows bilateral diffuse interstitial infiltrate stable ET tube and NG tube in PICC line, white cell count is 13,400, hemoglobin and hematocrit stable 9.4 and 31, arterial blood gases reviewed pH is 7.4 to pCO2 32 pO2 64, BUN/creatinine is 32 and 0.5, patient is reviewed Lovenox remains 2040 mg subcu twice a day on IV furosemide, Solu-Medrol is 60 mg IV every 6 we'll decrease it to every 12 04/03/2020, patient seen eval examined during rounds labs reviewed medications reviewed, care plan discussed, overall hemodynamically he remains stable blood pressure spiked up on hydralazine when necessary, seems to be helping, patient sedated with propofol drip 50 mics, attempts for weaning of protocol has been unsuccessful as patient becomes agitated, attempted Precedex drip has been unsuccessful as well, current vent settings include assist control rate of 24 breathing 24, FiO2 is 40%, PEEP is 5, tidal volume is 450, chest x-ray stable ET tube with bilateral multifocal infiltrate with consolidation consistent with cold with 19 pneumonia not essentially much change from the prior x-ray, ET tube and NG tube was stable, patient is getting tube feed bolus feeding, labs including ABG chemistry reviewed 04/02/2020, patient seen eval examined during the rounds labs reviewed medications reviewed care plan discussed, patient remains sedated with propofol on ventilator for full ventilator support, currently patient is on assist control mode rate Tuesday for breathing 24, tidal volume is 450, 5 of PEEP, 40% oxygen, propofol is 50 mics, chest x-ray from today reviewed continue show patchy bilateral infiltrate without any significant interval change, arterial blood gases revealed pH of 7.43 pCO2 32, C-reactive protein is down to 21, BUN/ creatinine is 34/.49, white cell count and hemoglobin remained stable, medications reviewed, she remains on broad-spectrum antibiotic with cephapirin, Lovenox, gentle diuresis with Lasix, blood pressure control with IV hydralazine, patient remains on high-dose IV steroids, discussed with the staff at length, will stop the propofol drip and once patient is awake put on CPAP 5 pressure support of 5 gas after half an hour also check weaning parameters 04/01/2020, patient seen eval examined labs reviewed medications reviewed care plan discussed with the staff at length patient had a sedation holiday today she is arousable and awake follows simple commands with blood pressure went up becomes agitated anxious requiring a reinitiation of propofol drip, ventilator setting remains unchanged, patient is on rate of 24 tidal volume is 450, PEEP is 5, oxygen is 40%, chest x-ray from today reviewed remains overall stable with stable lines and tubes 03/31/2020, patient seen eval examined during the rounds labs reviewed medications reviewed care plan discussed, patient remains on full ventilator s upport, propofol was changed to Precedex but however patient becomes agitated so back on propofol when setting remains unchanged have been on assist control rate of 24, PEEP is 5, FiO2 is 40%, tidal volume of 450, care plan discussed with the staff at length critical care time 35 minutes 03/30/2020, patient seen eval examined during the rounds labs reviewed medications reviewed, remains sedated with propofol, current vent setting include his control rate of 24 breathing 24 tidal volume is 450, deep is 5 now, FiO2 is 40%, tolerating tube feed very well, chest x-ray reviewed slightly better but stable bilateral infiltrate consistent with atypical pneumonia, patient continued IVs very well with 20 mg Lasix daily, white cell count remained stable, with stable hemoglobin and however decreasing platelet count noted, dear blood gases revealed pH of 7.4 to pCO2 34 pO2 of 62, BUN/creatinine is 36 and 0.62, left he continue show downward trend, inflammatory markers reviewed still elevated but showing a downward trend 03/29/2020, patient seen eval examined during the rounds labs reviewed medi cations reviewed, care plan discussed with the nursing staff at length, patient has been on assist control rate of the 24 PEEP of 8 400 tidal volume 50% oxygen, ventilator has been adjusted with reduction in PEEP and oxygen, patient's saturation remained stable 91-92%, next step he is to stop propofol and reassess the mental status and if patient remains stable oxygen randolph and hemodynamics can do a CPAP pressure support trial in the meantime we'll continue IV steroids, antibiotics, CBC and ABG reviewed, today's chest x-ray showed bilateral interstitial infiltrate, predominantly at the bases, patient has been on Lasix 20 mg daily diuresing very well, critical care time 35 minutes 03/28/2020, patient seen eval examined during the rounds labs reviewed medications reviewed care plan discussed oxygen has been down to 40% now. The patient is PEEP of 8, otherwise ventilator setting remains stable, patient is scheduled for PICC line later on today, remains on propofol, remains on broad-spectrum antibiotics, labs from today has been reviewed hemoglobin is stable 7.9, d-dimer is 3.24, arterial blood gases stable pH is 7.41 pCO2 35 pO2 96, BUN/creatinine is 51 and 1.05, ferritin level remains more than 26,000, AST ALT continued decline however today is 367 and 558, C-reactive protein checked 69.5 her chest x-ray earlier than today remains there however appears to have slightly progressed 03/27/2020, patient seen eval examined during the rounds labs reviewed medications reviewed care plan discussed, propofol has been discontinued patient because very restless and anxious, we'll restart propofol, patient has been on full ventilator support assist control 24 tidal volume of 450, PEEP is 10, oxygen is 70%, arterial blood gases reviewed when lower the FiO2 to 60% now plan to bring down the FiO2 to 50% and PEEP of 8 next 24 hours, sputum and blood cultures reviewed no growth so far, chest x-ray performed today reviewed significant improvement in infiltrates seen bilaterally, patient has a poor urine output throughout the night, 20 mg of Lasix was given put out 600 mL of urine patient continued to be on gentle hydration, remain on cefapime and Vanco, Lovenox Solu-Medrol multivitamin and vitamin C zinc and Lovenox, white cell count is stable 10,500 hemoglobin and hematocrit 7.2 and 24, general surgery has been following patient is considered to get EGD and colonoscopy once stable, arterial blood gas revealed pH of 7.39 pCO2 of 39 pO2 of 124, bicarb 25, liver enzymes continue to come down AST and ALT now is 944/809, hepatitis panel normal and nonreactive 03/26/2020, patient seen eval examined in the ICU care plan discussed with the staff, FiO2 has been down to 60%, patient remains on assist control tidal volume of 450, PEEP is 10, respiratory rate is 24 breathing with the respirator pH has been improved significantly, patient is making adequate urine chest x-ray compared with yesterday's x-ray some improvement have been noted, white cell count is 11,000, hemoglobin 7.9 which is stable, arterial blood gas improved to 7.39, pCO2 of 40, pO2 112, BUN/creatinine is 33/0.96, lactic acid was 5.9 down to 1.3 now, ferritin level noted to be 12,800, AST and ALT are 4014 100 with LDH over 21,500, today LFTs significantly improved AST is down to 2795 and ALT is 12 22, pro calcitonin is 0.84, suspect some component of heart failure as well as pneumonia, will get an echocardiogram as well as start patient on broad-spectrum antibiotics with cefepime and Vanco Patient seen and evaluated examined in the emergency department, patient came into the ER from the office of Dr. Aleman due to progressive shortness of breath, patient has acute on chronic hypoxic respiratory failure on 4 L oxygen, also has issues associated with pneumonia presumed to be cold with 19, however, testing was negative, patient used to smoke in the remote past quit about 20-30 years ago due to severity or shortness of breath and hypoxia with saturation of 76% on 100% oxygen and respiratory distress patient was intubated due to poor tolerance on BiPAP, patient Covid testing came back positive, chest x-ray showing diffuse infiltrate she also has been noted to have elevated liver enzym es due to elevated liver enzymes will not start IV REMdesivir, Initial ABG pH is 7.18, pCO2 is 63 pO2 was only 33 Objective - Vital Signs Vital signs: Vital Signs Temp 98.2 F 05/01/20 11:00 Pulse 82 05/01/20 11:00 Resp 18 05/01/20 11:00 BP 121/70 05/01/20 11:00 Pulse Ox 94 L 05/01/20 11:00 Intake & Output 04/30/20 05/01/20 05/01/20 18:59 06:59 18:59 Intake Total 600 590 480 Output Total 600 Balance 600 -10 480 Weight 74 kg 74 kg Intake: IV 600 Sodium Chloride 0.9% 1, 600 000 ml @ 50 mls/hr IV . Q20H [facility] Rx#:[id number] Oral 590 480 Output: Urine 600 Uretheral (Quick) 600 Other: Voiding Method Indwelling Catheter Bedside Commode Bedpan - Exam Patient on 80% oxygen 15 L aerosolized saturation is 90% to 92% - Constitutional General appearance: average body habitus, mild distress, restless intermittently agitated - EENT Ears: bilateral: normal - Neck Carotids: bilateral: upstroke normal Thyroid: bilateral: normal size - Respiratory Respiratory: bilateral: diminished - Cardiovascular Rhythm: regular Heart sounds: normal: S1, S2 - Gastrointestinal General gastrointestinal: normal bowel sounds Patient is relatively more awake and alert compared to yesterday exam - Labs CBC & Chem 7: 05/01/20 09:51 05/01/20 09:51 Labs: Abnormal Lab Results - Last 24 Hours (Table) 04/30/20 04/30/20 05/01/20 Range/Units 16:47 20:04 06:56 RBC (3.80-5.40) m/uL Hgb (11.4-16.0) gm/dL Hct (34.0-46.0) % RDW (11.5-15.5) % Sodium (137-145) mmol/L BUN (7-17) mg/dL Glucose (74-99) mg/dL POC Glucose (mg/dL) 369 H 251 H 128 H (75-99) mg/dL Calcium (8.4-10.2) mg/dL ALT (4-34) U/L Total Protein (6.3-8.2) g/dL Albumin (3.5-5.0) g/dL 05/01/20 05/01/20 05/01/20 Range/Units 09:51 09:51 11:34 RBC 3.50 L (3.80-5.40) m/uL Hgb 9.8 L (11.4-16.0) gm/dL Hct 31.0 L (34.0-46.0) % RDW 17.5 H (11.5-15.5) % Sodium 130 L (137-145) mmol/L BUN 21 H (7-17) mg/dL Glucose 151 H (74-99) mg/dL POC Glucose (mg/dL) 251 H (75-99) mg/dL Calcium 8.3 L (8.4-10.2) mg/dL ALT 46 H (4-34) U/L Total Protein 6.1 L (6.3-8.2) g/dL Albumin 3.1 L (3.5-5.0) g/dL Assessment and Plan Assessment: Anemia of chronic disease Generalized weakness and medical debility Gram-positive bacteremia and VRE has been noted in urine blood on daptomycin Agitated delirium along with metabolic encephalopathy likely multifactorial including Covid 19 pneumonia, is being in ICU, for intubation long period time sepsis, slowly improving Acute hypoxic respiratory failure Covid19 pneumonia Thrombocytopenia stable Acute hepatitis/elevated liver enzymes Acute diastolic heart failure Chronic anemia Fibromyalgia Hypertension hypertensive cardiovascular disease Plan: Proton pump inhibitors Continue supportive care, oxygen taper as tolerated Continue daptomycin IV steroids, taper as tolerated, changed to oral Decadron for 5-7 more days Further recommendations pending plan of care as per clinical response of patient Continue anticoagulation with Lovenox PT OT evaluation Monitor labs and sodium closely Time with Patient: Greater than 30
--- NOTE | 2020-05-01 15:33 | P.DS ---
Providers Date of admission: 03/25/20 12:11 Attending physician: Cody Aleman Consults: 03/25/20 12:17 Consult Physician Stat Consulting Provider: Bhavik Steiner Consult Reason/Comments: covid pna Do you want consulting provider notified?: Yes 03/25/20 12:22 Consult Physician Urgent Consulting Provider: Abhijeet Blackburn Consult Reason/Comments: COVID Do you want consulting provider notified?: Yes 03/26/20 09:46 Consult Physician Urgent Consulting Provider: William Henry Consult Reason/Comments: anemia, GI bleed, known to patient Do you want consulting provider notified?: Yes 04/13/20 14:16 Consult Physician Routine Consulting Provider: Jonnie Haas Consult Reason/Comments: rehab Do you want consulting provider notified?: Yes 04/23/20 08:27 Consult Physician Routine Consulting Provider: William Henry Consult Reason/Comments: Anemia, question GI source Do you want consulting provider notified?: Yes 04/23/20 13:13 Consult Physician Routine Consulting Provider: William Henry Consult Reason/Comments: Anemia Do you want consulting provider notified?: Already Contacted Primary care physician: Cody Aleman - Discharge Diagnosis(es) (1) Acute respiratory distress syndrome Current Visit: Yes Status: Acute (2) Anemia Current Visit: Yes Status: Acute (3) COVID-19 Current Visit: Yes Status: Acute (4) Pneumonia Current Visit: Yes Status: Acute (5) Fibromyalgia Current Visit: No Status: Acute (6) Generalized weakness Current Visit: Yes Status: Acute (7) Immobility Current Visit: Yes Status: Acute Hospital Course: This is discharge on a 69-year-old white female essentially admitted for respiratory failure. She had a long course after being diagnosed with bilateral pneumonia and Covid 19. The patient was intubated for quite a long time but was able to be extubated and has had a long cheko course. She has an underlying history also of anemia. Unfortunately, the patient due to her weakness and choice wishes to wait for colonoscopy as an outpatient. The patient has been slowly improving but due to the nature of this disease, she requires rehabilitation. She will be transferred appropriate medication for dexamethasone taper. She also requires mild pain control and medication for anxiety. The patient is stable on discharge at 5 L of oxygen and starting to be able to tolerate rehab. Appetite is less than ideal but given her overall the events, she is stable enough for discharge to ECF after long hospital course. Patient Condition at Discharge: Serious Plan - Discharge Summary Discharge Rx Participant: No New Discharge Prescriptions: New RX: hydrALAZINE HCL [Apresoline] 75 mg PO TID tab RX: dexAMETHasone [Hexadrol] 2 mg PO DAILY #30 tab RX: INSULIN ASPART (NovoLOG) [NovoLOG (formulary)] 0 unit SQ ACHS vial RX: Pantoprazole [Protonix] 40 mg PO BID tablet. RX: Sennosides [Senokot] 8.6 mg PO BID PRN tab PRN Reason: Constipation RX: traMADol HCl [Ultram] 50 mg PO QID PRN #0 tab PRN Reason: Mild To Moderate Pain RX: Ascorbic Acid [Vitamin C] 500 mg PO BID tab RX: Cholecalciferol [Vitamin D3 (10 Mcg = 400 Iu)] 400 unit PO DAILY tab RX: ALPRAZolam [Xanax] 0.25 mg PO QID PRN #120 tab PRN Reason: Anxiety Continue RX: Sertraline [Zoloft] 150 mg PO DAILY RX: lisinopriL [Zestril] 10 mg PO DAILY RX: rOPINIRole HCL [Requip] 1 mg PO TID RX: Levothyroxine Sodium 200 mcg PO DAILY RX: Cyclobenzaprine [Flexeril] 10 mg PO TID PRN PRN Reason: Muscle Spasm RX: amLODIPine [Norvasc] 5 mg PO DAILY RX: Amitriptyline HCl [Elavil] 50 mg PO HS RX: Sennosides [Senna] 17.2 mg PO HS PRN PRN Reason: Constipation RX: Omeprazole [PriLOSEC] 20 mg PO AC-BRKFST #90 cap RX: Aspirin 81 mg PO BID 17 Days #34 chewable RX: Ferrous Sulfate [Iron (65 MG Elemental)] 325 mg PO BID-W/MEALS #60 tab RX: guaiFENesin-DM 100-10MG/5ML [Robitussin DM] 10 ml PO Q6H PRN #200 ml PRN Reason: Cough Discontinued RX: Azithromycin [Zithromax] 500 mg PO DAILY #3 tab Discharge Medication List RX: Sertraline [Zoloft] 150 mg PO DAILY 08/23/14 [History] RX: lisinopriL [Zestril] 10 mg PO DAILY 08/12/16 [History] RX: Amitriptyline HCl [Elavil] 50 mg PO HS 03/10/20 [History] RX: Cyclobenzaprine [Flexeril] 10 mg PO TID PRN 03/10/20 [History] RX: Levothyroxine Sodium 200 mcg PO DAILY 03/10/20 [History] RX: Sennosides [Senna] 17.2 mg PO HS PRN 03/10/20 [History] RX: amLODIPine [Norvasc] 5 mg PO DAILY 03/10/20 [History] RX: rOPINIRole HCL [Requip] 1 mg PO TID 03/10/20 [History] RX: Omeprazole [PriLOSEC] 20 mg PO AC-BRKFST #90 cap 03/11/20 [Rx] RX: Aspirin 81 mg PO BID 17 Days #34 chewable 03/12/20 [Rx] RX: Ferrous Sulfate [Iron (65 MG Elemental)] 325 mg PO BID-W/MEALS #60 tab 03/19/20 [Rx] RX: guaiFENesin-DM 100-10MG/5ML [Robitussin DM] 10 ml PO Q6H PRN #200 ml 03/19/20 [Rx] RX: ALPRAZolam [Xanax] 0.25 mg PO QID PRN #120 tab 05/01/20 [Rx] RX: Ascorbic Acid [Vitamin C] 500 mg PO BID tab 05/01/20 [Rx] RX: Cholecalciferol [Vitamin D3 (10 Mcg = 400 Iu)] 400 unit PO DAILY tab 05/01/20 [Rx] RX: INSULIN ASPART (NovoLOG) [NovoLOG (formulary)] 0 unit SQ ACHS vial 05/01/20 [Rx] RX: Pantoprazole [Protonix] 40 mg PO BID tablet. 05/01/20 [Rx] RX: Sennosides [Senokot] 8.6 mg PO BID PRN tab 05/01/20 [Rx] RX: dexAMETHasone [Hexadrol] 2 mg PO DAILY #30 tab 05/01/20 [Rx] RX: hydrALAZINE HCL [Apresoline] 75 mg PO TID tab 05/01/20 [Rx] RX: traMADol HCl [Ultram] 50 mg PO QID PRN #0 tab 05/01/20 [Rx] Follow up Appointment(s)/Referral(s): William Henry MD [Medical Doctor] - 2 Weeks Cody Aleman MD [Primary Care Provider] - 1-2 days Eveline Guerrero MD [STAFF PHYSICIAN] - 2 Weeks Discharge Disposition: TRANSFER TO SNF/ECF
[2020-05-02] MEDS ORDERED: dexAMETHasone 2 MG TAB PO SCH (09:00)
--- NOTE | 2020-07-23 07:25 | CDI ---
Documentation Clarification Form Date: 07/23/2020 07:07:11 AM From: Ann BOYLE,CCDS,RN Admit Date: 03/25/2020 12:11:00 PM Patient Name: Denis Jalloh Visit Number: [id number] Discharge Date: 05/01/2020 04:59:00 PM ATTENTION: The Clinical Documentation Specialists (CDI) and [facility] Coding Staff appreciate your assistance in clarifying documentation. Please respond to the clarification below the line at the bottom and electronically sign. The CDI & [facility] Coding staff will review the response and follow-up if needed. Please note: Queries are made part of the Legal Health Record. If you have any questions, please contact the author of this message via ITS. Dr. Cody Aleman Case was reviewed at Clinical Validation Committee and clarification is requested regarding the documentation of Bacteremia 2nd to Coagulase negative staph 04/27 IM: Positive blood culture with bacteremia with Enterococcus faecalis and coagulase negative staph, secondary to PICC line, resolved. Additional clarification is requested. History/Risk Factors: Hypertension, Hypothyroidism, Chronic Anemia requiring transfusions every 8-12 weeks, Ulcer, Former smoker. Clinical Indicators: ED on 03/25 with SOB & low Pulse Ox in respiratory distress, placed on BiPAP. was agitated & confused, subsequently intubated in the ED. Admitted this episode with ARDS, COVID 19 Pneumonia and Anemia. 03/25 VS: T 98.6, P 83 - 102, R 24 - 26 (SOB, labored, shallow, tachypnea), BP 126/79 - 181/89, PO 76 4Lnc - 89 100% BiPAP - Intubated. 04/08 ID patient with positive blood culture with gram positive cocci possibly related to PICC line. Recommend discontinuation of the PICC line. Patient is covered with Vancomycin 04/12 ID pt. with enterococcus faecalis bacteremia for which pt. is currently covered with vano to continues Positive culture with VRE: possible mcqueen contaminate as repeat 04/21 ID pt. with enterococcus faecalis bacteremia, repeat BC negative also with VRE 04/27 IM: Positive blood culture with bacteremia with Enterococcus faecalis and coagulase negative staph, secondary to PICC line, resolved. Cultures: 04/06 Blood Cx: Diphtheroid species (Final) 04/07 Blood Cx: Enterococcus faecalis, Coagulase Neg Staph (Final) 04/09 Blood Cx (PICC line Cath tip): Enterococcus faecium VRE, Kristi albicanss (Final) 04/12 Urine Cx (Cath): Enterococcus faecium VRE (Final) Treatment: PICC dcd 04/09. Treated for VRE bacteremia and CAUTI, Vancomycin with pharmacy dosing. Can you please clarify the documentation of bacteremia of coagulase negative Staph? [ ] Coagulase negative Staph considered contaminate, not source of patients infection [ x ] Patient treated for Coagulase negative Staph Bacteremia [ ] Other, please specify [ ] Unable to determine (Template Last Revised: June 2020) MTDD
== END 2020-05-01 16:59 | DRG 207 ==
LOC: EC 10:37 → 3SCARD 12:11 → 2SICU 13:24 → 6NMEDSUR 04-15 01:06
PROVIDERS: ADMIT Family Medicine; ATTEND Family Medicine
PROC: 0BH17EZ Insertion of Endotracheal Airway into Trachea, Via Natural or Artificial Opening (ICD-10-PCS; principal; 2020-03-25)
PROC: 5A1955Z Respiratory Ventilation, Greater than 96 Consecutive Hours (ICD-10-PCS; principal; 2020-03-25)
PROC: 0DH67UZ Insertion of Feeding Device into Stomach, Via Natural or Artificial Opening (ICD-10-PCS; 2020-03-25)
PROC: 30233N1 Transfusion of Nonautologous Red Blood Cells into Peripheral Vein, Percutaneous Approach (ICD-10-PCS; 2020-03-27)
PROC: 02HV33Z Insertion of Infusion Device into Superior Vena Cava, Percutaneous Approach (ICD-10-PCS; 2020-03-28)
PROC: 3E0G76Z Introduction of Nutritional Substance into Upper GI, Via Natural or Artificial Opening (ICD-10-PCS; 2020-03-28)
PROC: 5A09357 Assistance with Respiratory Ventilation, Less than 24 Consecutive Hours, Continuous Positive Airway Pressure (ICD-10-PCS; 2020-04-08)
PROC: 05HA33Z Insertion of Infusion Device into Left Brachial Vein, Percutaneous Approach (ICD-10-PCS; 2020-04-09)
PROC: 5A0955A Assistance with Respiratory Ventilation, Greater than 96 Consecutive Hours, High Flow/Velocity Cannula (ICD-10-PCS; 2020-04-11)
DX: U07.1 COVID-19 (principal); T80.211A Bloodstream infection due to central venous catheter, initial encounter; N39.0 Urinary tract infection, site not specified; T83.511A Infection and inflammatory reaction due to indwelling urethral catheter, initial encounter; J80 Acute respiratory distress syndrome; J15.9 Unspecified bacterial pneumonia; J12.82 Pneumonia due to coronavirus disease 2019; I50.31 Acute diastolic (congestive) heart failure; G93.41 Metabolic encephalopathy; A41.81 Sepsis due to Enterococcus; R65.20 Severe sepsis without septic shock; K92.2 Gastrointestinal hemorrhage, unspecified; Z16.21 Resistance to vancomycin; I16.1 Hypertensive emergency; B17.9 Acute viral hepatitis, unspecified; B37.0 Candidal stomatitis; D62 Acute posthemorrhagic anemia; E87.1 Hypo-osmolality and hyponatremia; E87.4 Mixed disorder of acid-base balance; E87.2 Acidosis; D63.8 Anemia in other chronic diseases classified elsewhere; D69.6 Thrombocytopenia, unspecified; I11.0 Hypertensive heart disease with heart failure; M79.7 Fibromyalgia; R13.10 Dysphagia, unspecified; K80.20 Calculus of gallbladder without cholecystitis without obstruction; K59.00 Constipation, unspecified; F41.9 Anxiety disorder, unspecified; D50.9 Iron deficiency anemia, unspecified; D72.810 Lymphocytopenia; E03.9 Hypothyroidism, unspecified; Z79.52 Long term (current) use of systemic steroids; Z79.82 Long term (current) use of aspirin; Z87.01 Personal history of pneumonia (recurrent); Z87.898 Personal history of other specified conditions; Z79.890 Hormone replacement therapy; Z79.899 Other long term (current) drug therapy; Z87.891 Personal history of nicotine dependence; Z88.0 Allergy status to penicillin; Z88.2 Allergy status to sulfonamides; G25.81 Restless legs syndrome; Z88.8 Allergy status to other drugs, medicaments and biological substances; Z96.652 Presence of left artificial knee joint; Z90.710 Acquired absence of both cervix and uterus; R45.1 Restlessness and agitation; Z87.11 Personal history of peptic ulcer disease
CPT/HCPCS: 31500; 36410; 36415; 36573; 36600; 71045; 76705; 76937; 80048; 80053; 80074; 80202; 81001; 82105; 82150; 82247; 82550; 82607; 82728; 82746; 82805; 83540; 83550; 83605; 83615; 83625; 83690; 83735; 83880; 84075; 84145; 84450; 84460; 84484; 85025; 85027; 85045; 85379; 85384; 85610; 85730; 86140; 86850; 86900; 86901; 86920; 87040; 87070; 87077; 87086; 87186; 87205; 87635; 93005; 93306; 94002; 94003; 94660; 94760; 96374; 96375; 96376; 99291

== ENCOUNTER → 2020-06-19 | Outpatient (CLI) | payer MEDICARE ==
--- NOTE | 2020-06-19 09:42 | XR ---
EXAMINATION TYPE: XR chest 2V DATE OF EXAM: 06/19/2020 COMPARISON: Chest x-ray September 16, 2020 HISTORY: History of covid With 13 week admission TECHNIQUE: Frontal and lateral views of the chest are obtained. FINDINGS: There is some reticulonodular increased markings bilaterally remains present. Interval res olution of multifocal predominantly lower lung opacities. The cardiac silhouette size is stable and l ikely within limits. Retrocardiac opacity consistent with moderate to large size hiatal hernia redemo nstrated. The osseous structures are intact. IMPRESSION: Background chronic parenchymal changes felt present with interval resolution of bilatera l multifocal mid to lower lung acute infiltrates.
== END ==
LOC: RADXRMAIN 09:12
PROVIDERS: ATTEND Family Medicine
DX: R91.8 Other nonspecific abnormal finding of lung field (principal); Z86.16 Personal history of COVID-19
CPT/HCPCS: 71046

== ENCOUNTER 2020-10-07 13:11 | Inpatient (IN) | payer MEDICARE ==
[2020-10-07] MEDS ORDERED: SODIUM CHLORIDE 0.9% 500 ML 500 ML IV STA (13:18)
[2020-10-07] MEDS ORDERED: PROPOFOL 10 MG/ML 20 ML VIAL IV ONE (13:21)
[2020-10-07] MEDS: LORazepam 2 MG/ML INJ IV STA ×3 (13:22→14:52)
--- NOTE | 2020-10-07 13:55 | CT ---
EXAMINATION TYPE: CT brain shayy gallardo con DATE OF EXAM: 10/07/2020 COMPARISON: 03/14/2020 HISTORY: CODE STROKE, trauma CT DLP: 1403.[address] of the brain was performed. The ventricles, basal cisterns and sulci overlying the cerebral convexities demonstrate mild enlargem ent. There is no evidence for intracranial hemorrhage or sulcal effacement. There is decreased attenuatio n about the periventricular white matter and deep white matter of both cerebral hemispheres, compatib le with chronic small vessel ischemia. No mass effects are seen. If symptoms persist consider MRI. Osseous calvarium is intact. IMPRESSION: 1. Age related atrophic and chronic small vessel ischemic change without acute intracranial process seen at this time. CT Cervical Spine: Unenhanced CT of the cervical spine was performed with bone and soft tissue window settings submitted . Coronal and sagittal reconstruction is obtained. There is normal alignment and prevertebral soft tissues. No evidence for acute cervical fracture . Severe Scattered degenerative disc disease and spondylosis. Biapical scarring. IMPRESSION: 1. No evidence for acute fracture or subluxation of the cervical spine.
[2020-10-07 14:00] LABS: ABG Base Excess -13.2 mmol/L; ABG HCO3 14 mmol/L (21-25); ABG Oxygen Saturation 99.2 % (94-97); ABG PCO2 29 mmHg (35-45); ABG PH 7.28 (7.35-7.45); ABG PO2 205 mmHg (83-108); ABG TCO2 14 mmol/L (19-24); Allen Test Performed? Yes
--- NOTE | 2020-10-07 14:15 | ED ---
General Adult HPI - General Chief complaint: Altered Mental Status Stated complaint: altered Time Seen by Provider: 10/07/20 13:11 Source: patient, EMS, RN notes reviewed, old records reviewed Mode of arrival: EMS Limitations: no limitations - History of Present Illness Initial comments: This is a 70-year-old female presents to the emergency department with past medical history per her of anemia and restless leg syndrome. states the last time he saw her normal state 30 last night. states this morning he woke up and she was on the ground she was flailing some upper extremities but he put her back in bed and she settled down so he went to work at about 12:30 or so he came back home to see how she was doing she was again on the ground and not responding to them and did not recognize him according to him. Patient states when EMS got there she started to come around a little bit more was flailing all her extremities but was answering some questions normally. According to the she often will take 3 or more Aleve PMs and it's possible she could've done even more of those per the because she often is in quite a bit of pain. Patient herself denies any pain currently and she is alert and oriented 2. Patient is not able to give us much history at this time and the gave us no further history. states they don't drink and she doesn't do any drugs. - Related Data Home Medications Medication Instructions Recorded Confirmed lisinopriL [Zestril] 10 mg PO DAILY 08/12/16 10/07/20 Amitriptyline HCl [Elavil] 50 mg PO HS 03/10/20 10/07/20 Cyclobenzaprine [Flexeril] 10 mg PO TID PRN 03/10/20 10/07/20 Levothyroxine Sodium 200 mcg PO DAILY 03/10/20 10/07/20 rOPINIRole HCL [Requip] 1 mg PO TID 03/10/20 10/07/20 Pregabalin [Lyrica] See Taper PO DIRECTED 10/07/20 10/07/20 Zolpidem [Ambien] 5 mg PO HS PRN 10/07/20 10/07/20 Previous Rx's Medication Instructions Recorded Omeprazole [PriLOSEC] 20 mg PO -BRKFST #90 cap 03/11/20 hydrALAZINE HCL [Apresoline] 75 mg PO TID tab 05/01/20 Allergies Allergy/AdvReac Type Severity Reaction Status Date / Time meperidine HCl [From Demerol] Allergy Rash/Hives Verified 03/25/20 11:11 Penicillins Allergy Rash/Hives Verified 03/25/20 11:11 Sulfa (Sulfonamide Allergy Rash/Hives Verified 03/25/20 11:11 Antibiotics) Review of Systems ROS Statement: Those systems with pertinent positive or pertinent negative responses have been documented in the HPI. ROS Other: All systems not noted in ROS Statement are negative. Past Medical History Past Medical History: Hypertension, Thyroid Disorder Additional Past Medical History / Comment(s): chronic ANEMIA- pt gets iron trans. every 8-12 weeks for over 12 years. Pt has a hx of a sm ulcer History of Any Multi-Drug Resistant Organisms: VRE Date of last positivie culture/infection: 04/12/20 VRE MDRO Source:: Urine Past Surgical History: Hysterectomy, Joint Replacement, Orthopedic Surgery Additional Past Surgical History / Comment(s): LEFT KNEE ARTHROSCOPIC, carpal tunnel, left knee replacement, laser eye surgery Past Anesthesia/Blood Transfusion Reactions: No Reported Reaction Past Psychological History: No Psychological Hx Reported Smoking Status: Former smoker Past Alcohol Use History: None Reported Past Drug Use History: None Reported - Past Family History Mother Family Medical History: No Reported History General Exam - General Exam Comments Initial Comments: GENERAL: Patient is well-developed and well-nourished. Patient is nontoxic and well-h ydrated and is in mild distress. Patient is flailing all 4 extremities and does not seem to be able to control it. ENT: Neck is soft and supple. No significant lymphadenopathy is noted. Oropharynx is clear. Moist mucous membranes. Neck has full range of motion without eliciting any pain. were felt. EYES: The sclera were anicteric and conjunctiva were pink and moist. Extraocular movements were intact and pupils were equal round and reactive to light. Eyelids were unremarkable. PULMONARY: Unlabored respirations. Good breath sounds bilaterally. No audible rales rhonchi or wheezing was noted. CARDIOVASCULAR: There is a regular rate and rhythm without any murmurs gallops or rubs. ABDOMEN: Soft and nontender with normal bowel sounds. SKIN: Skin is clear with no lesions or rashes and otherwise unremarkable. NEUROLOGIC: Patient is alert and oriented 2. Cranial nerves II through XII are grossly intact. Patient is moving all 4 extremities but does not appear to have control over them there is a lot of involuntary movement of all 4 extremities. Normal speech, volume and content. Symmetrical smile. MUSCULOSKELETAL: Normal extremities with adequate strength and full range of motion. No lower extremity swelling or edema. No calf tenderness. LYMPHATICS: No significant lymphadenopathy is noted PSYCHIATRIC: Unable to evaluate Limitations: no limitations Course Vital Signs 10/07/20 10/07/20 10/07/20 13:16 14:19 14:47 Temperature 98.0 F 99.7 F H Pulse Rate 119 H 120 H Respiratory 16 30 H Rate Blood Pressure 171/74 163/67 O2 Sat by Pulse 95 100 Oximetry 10/07/20 10/07/20 10/07/20 14:54 15:47 17:21 Temperature Pulse Rate 116 H 107 H 101 H Respiratory 32 H 26 H 26 H Rate Blood Pressure 115/85 103/81 141/86 O2 Sat by Pulse 98 99 97 Oximetry 10/07/20 17:42 Temperature Pulse Rate 97 Respiratory 26 H Rate Blood Pressure 147/80 O2 Sat by Pulse 99 Oximetry Procedures - Procedural Sedation Procedural Sedation Start Time: 13:33 Procedural Sedation Stop Time: 14:00 Indications: diagnostic imaging procedure ASA Class: II Mallampati Airway Score: 2 Preparation: laboratory monitor applied, pulse oximeter, supplemental O2 applied IV Propofol Dose (mgs): 75 Complications: none Patient Tolerated Procedure: well Medical Decision Making - Medical Decision Making EKG shows sinus tachycardia at 105 bpm DE interval is 170 QRS is 146 QT interval 384 QTC is 507. Patient has a right bundle branch block. CT of the brain shows no acute abnormality. CT of the C-spine shows no acute normalities. CTA shows no acute abnormality. Chest x-ray shows slightly worsening infiltrate. stated that it's possible she took too many of her Advil PM Patient was started on Rocephin. Blood cultures were drawn. I spoke with Dr. Aleman he was in agreement not intubated the patient even though she continued to flail after Ativan making her more obtunded he was concerned because she already had COVID and was on a vent for 6 weeks. He wanted the patient admitted to the floor and monitored. - Lab Data Result diagrams: 10/07/20 13:58 10/07/20 13:58 Lab Results 10/07/20 10/07/20 10/07/20 Range/Units 13:58 13:58 13:58 WBC 13.8 H (3.8-10.6) k/uL RBC 3.40 L (3.80-5.40) m/uL Hgb 7.8 L (11.4-16.0) gm/dL Hct 26.9 L (34.0-46.0) % MCV 78.9 L (80.0-100.0) fL MCH 22.9 L (25.0-35.0) pg MCHC 29.0 L (31.0-37.0) g/dL RDW 15.8 H (11.5-15.5) % Plt Count 366 (150-450) k/uL MPV 7.5 Neutrophils % 89 % Lymphocytes % 5 % Monocytes % 5 % Eosinophils % 0 % Basophils % 1 % Neutrophils # 12.2 H (1.3-7.7) k/uL Lymphocytes # 0.7 L (1.0-4.8) k/uL Monocytes # 0.7 (0-1.0) k/uL Eosinophils # 0.0 (0-0.7) k/uL Basophils # 0.1 (0-0.2) k/uL Hypochromasia Marked Poikilocytosis Moderate PT 10.7 (9.0-12.0) sec INR 1.0 (<1.2) APTT 21.4 L (22.0-30.0) sec Sample Site ABG pH (7.35-7.45) ABG pCO2 (35-45) mmHg ABG pO2 (83-108) mmHg ABG HCO3 (21-25) mmol/L ABG Total CO2 (19-24) mmol/L ABG O2 Saturation (94-97) % ABG Base Excess mmol/L Elijah Test FiO2 % Sodium 137 (137-145) mmol/L Potassium 5.0 (3.5-5.1) mmol/L Chloride 115 H (98-107) mmol/L Carbon Dioxide 10 L (22-30) mmol/L Anion Gap 12 mmol/L BUN 49 H (7-17) mg/dL Creatinine 1.02 (0.52-1.04) mg/dL Est GFR (CKD-EPI)AfAm 64 (>60 ml/min/1.73 sqM) Est GFR (CKD-EPI)NonAf 56 (>60 ml/min/1.73 sqM) Glucose 175 H (74-99) mg/dL Plasma Lactic Acid [place] (0.7-2.0) mmol/L Calcium 9.0 (8.4-10.2) mg/dL Total Bilirubin 0.2 (0.2-1.3) mg/dL AST 26 (14-36) U/L ALT 13 (4-34) U/L Alkaline Phosphatase 96 (38-126) U/L Ammonia (<30) umol/L Troponin I (0.000-0.034) ng/mL Total Protein 7.2 (6.3-8.2) g/dL Albumin 4.0 (3.5-5.0) g/dL Urine Color Urine Appearance (Clear) Urine pH (5.0-8.0) Ur Specific [place] (1.001-1.035) Urine Protein (Negative) Urine Glucose (UA) (Negative) Urine Ketones (Negative) Urine Blood (Negative) Urine Nitrite (Negative) Urine Bilirubin (Negative) Urine Urobilinogen (<2.0) mg/dL Ur Leukocyte Esterase (Negative) Urine RBC (0-5) /hpf Urine WBC (0-5) /hpf Ur Squamous Epith Cells (0-4) /hpf Urine Bacteria (None) /hpf Urine Mucus (None) /hpf Salicylates <1.0 mg/dL Urine Opiates Screen (NotDetected) Ur Oxycodone Screen (NotDetected) Urine Methadone Screen (NotDetected) Ur Propoxyphene Screen (NotDetected) Acetaminophen <10.0 ug/mL Ur Barbiturates Screen (NotDetected) U Tricyclic Antidepress (NotDetected) Ur Phencyclidine Scrn (NotDetected) Ur Amphetamines Screen (NotDetected) U Methamphetamines Scrn (NotDetected) U Benzodiazepines Scrn (NotDetected) Urine Cocaine Screen (NotDetected) U Marijuana (THC) Screen (NotDetected) Serum Alcohol <10 mg/dL 10/07/20 10/07/20 10/07/20 Range/Units 13:58 13:58 13:58 WBC (3.8-10.6) k/uL RBC (3.80-5.40) m/uL Hgb (11.4-16.0) gm/dL Hct (34.0-46.0) % MCV (80.0-100.0) fL MCH (25.0-35.0) pg MCHC (31.0-37.0) g/dL RDW (11.5-15.5) % Plt Count (150-450) k/uL MPV Neutrophils % % Lymphocytes % % Monocytes % % Eosinophils % % Basophils % % Neutrophils # (1.3-7.7) k/uL Lymphocytes # (1.0-4.8) k/uL Monocytes # (0-1.0) k/uL Eosinophils # (0-0.7) k/uL Basophils # (0-0.2) k/uL Hypochromasia Poikilocytosis PT (9.0-12.0) sec INR (<1.2) APTT (22.0-30.0) sec Sample Site rrad ABG pH 7.28 L (7.35-7.45) ABG pCO2 29 L (35-45) mmHg ABG pO2 205 H (83-108) mmHg ABG HCO3 14 L (21-25) mmol/L ABG Total CO2 14 L (19-24) mmol/L ABG O2 Saturation 99.2 H (94-97) % ABG Base Excess -13.2 mmol/L Elijah Test Yes FiO2 100 % Sodium (137-145) mmol/L Potassium (3.5-5.1) mmol/L Chloride (98-107) mmol/L Carbon Dioxide (22-30) mmol/L Anion Gap mmol/L BUN (7-17) mg/dL Creatinine (0.52-1.04) mg/dL Est GFR (CKD-EPI)AfAm (>60 ml/min/1.73 sqM) Est GFR (CKD-EPI)NonAf (>60 ml/min/1.73 sqM) Glucose (74-99) mg/dL Plasma Lactic Acid [place] 1.0 (0.7-2.0) mmol/L Calcium (8.4-10.2) mg/dL Total Bilirubin (0.2-1.3) mg/dL AST (14-36) U/L ALT (4-34) U/L Alkaline Phosphatase (38-126) U/L Ammonia <9 (<30) umol/L Troponin I <0.012 (0.000-0.034) ng/mL Total Protein (6.3-8.2) g/dL Albumin (3.5-5.0) g/dL Urine Color Urine Appearance (Clear) Urine pH (5.0-8.0) Ur Specific [place] (1.001-1.035) Urine Protein (Negative) Urine Glucose (UA) (Negative) Urine Ketones (Negative) Urine Blood (Negative) Urine Nitrite (Negative) Urine Bilirubin (Negative) Urine Urobilinogen (<2.0) mg/dL Ur Leukocyte Esterase (Negative) Urine RBC (0-5) /hpf Urine WBC (0-5) /hpf Ur Squamous Epith Cells (0-4) /hpf Urine Bacteria (None) /hpf Urine Mucus (None) /hpf Salicylates mg/dL Urine Opiates Screen (NotDetected) Ur Oxycodone Screen (NotDetected) Urine Methadone Screen (NotDetected) Ur Propoxyphene Screen (NotDetected) Acetaminophen ug/mL Ur Barbiturates Screen (NotDetected) U Tricyclic Antidepress (NotDetected) Ur Phencyclidine Scrn (NotDetected) Ur Amphetamines Screen (NotDetected) U Methamphetamines Scrn (NotDetected) U Benzodiazepines Scrn (NotDetected) Urine Cocaine Screen (NotDetected) U Marijuana (THC) Screen (NotDetected) Serum Alcohol mg/dL 10/07/20 10/07/20 Range/Units 14:05 16:51 WBC (3.8-10.6) k/uL RBC (3.80-5.40) m/uL Hgb (11.4-16.0) gm/dL Hct (34.0-46.0) % MCV (80.0-100.0) fL MCH (25.0-35.0) pg MCHC (31.0-37.0) g/dL RDW (11.5-15.5) % Plt Count (150-450) k/uL MPV Neutrophils % % Lymphocytes % % Monocytes % % Eosinophils % % Basophils % % Neutrophils # (1.3-7.7) k/uL Lymphocytes # (1.0-4.8) k/uL Monocytes # (0-1.0) k/uL Eosinophils # (0-0.7) k/uL Basophils # (0-0.2) k/uL Hypochromasia Poikilocytosis PT (9.0-12.0) sec INR (<1.2) APTT (22.0-30.0) sec Sample Site ABG pH (7.35-7.45) ABG pCO2 (35-45) mmHg ABG pO2 (83-108) mmHg ABG HCO3 (21-25) mmol/L ABG Total CO2 (19-24) mmol/L ABG O2 Saturation (94-97) % ABG Base Excess mmol/L Elijah Test FiO2 % Sodium (137-145) mmol/L Potassium (3.5-5.1) mmol/L Chloride (98-107) mmol/L Carbon Dioxide (22-30) mmol/L Anion Gap mmol/L BUN (7-17) mg/dL Creatinine (0.52-1.04) mg/dL Est GFR (CKD-EPI)AfAm (>60 ml/min/1.73 sqM) Est GFR (CKD-EPI)NonAf (>60 ml/min/1.73 sqM) Glucose (74-99) mg/dL Plasma Lactic Acid [place] (0.7-2.0) mmol/L Calcium (8.4-10.2) mg/dL Total Bilirubin (0.2-1.3) mg/dL AST (14-36) U/L ALT (4-34) U/L Alkaline Phosphatase (38-126) U/L Ammonia (<30) umol/L Troponin I (0.000-0.034) ng/mL Total Protein (6.3-8.2) g/dL Albumin (3.5-5.0) g/dL Urine Color Light Yellow Urine Appearance Clear (Clear) Urine pH 5.0 (5.0-8.0) Ur Specific [place] 1.040 H (1.001-1.035) Urine Protein 1+ H (Negative) Urine Glucose (UA) Negative (Negative) Urine Ketones Negative (Negative) Urine Blood Trace H (Negative) Urine Nitrite Negative (Negative) Urine Bilirubin Negative (Negative) Urine Urobilinogen <2.0 (<2.0) mg/dL Ur Leukocyte Esterase Negative (Negative) Urine RBC 1 (0-5) /hpf Urine WBC 1 (0-5) /hpf Ur Squamous Epith Cells 1 (0-4) /hpf Urine Bacteria Occasional H (None) /hpf Urine Mucus Rare H (None) /hpf Salicylates mg/dL Urine Opiates Screen Not Detected (NotDetected) Ur Oxycodone Screen Not Detected (NotDetected) Urine Methadone Screen Not Detected (NotDetected) Ur Propoxyphene Screen Not Detected (NotDetected) Acetaminophen ug/mL Ur Barbiturates Screen Not Detected (NotDetected) U Tricyclic Antidepress Detected H (NotDetected) Ur Phencyclidine Scrn Not Detected (NotDetected) Ur Amphetamines Screen Not Detected (NotDetected) U Methamphetamines Scrn Not Detected (NotDetected) U Benzodiazepines Scrn Not Detected (NotDetected) Urine Cocaine Screen Not Detected (NotDetected) U Marijuana (THC) Screen Detected H (NotDetected) Serum Alcohol mg/dL Critical Care Time Critical Care Time: Yes Total Critical Care Time: 35 Disposition Clinical Impression: Altered mental status, Involuntary movements, Anemia, Pneumonia, Diphenhydramine overdose Disposition: ADMITTED IP TO THIS [facility] Time of Disposition: 17:00
[2020-10-07 14:20] LABS: ALT 13 U/L (4-34); AST 26 U/L (14-36); Acetaminophen <10.0 ug/mL; African American GFR (CKD) 64 (>60 ml/min/1.73 sqM); Alcohol <10 mg/dL; Alkaline Phosphatase 96 U/L (38-126); Anion Gap 12 mmol/L; Blood Urea Nitrogen 49 mg/dL (7-17); Carbon Dioxide 10 mmol/L (22-30); Chloride 115 mmol/L (98-107); Glucose 175 mg/dL (74-99); Non-African American GFR(CKD) 56 (>60 ml/min/1.73 sqM); Salicylate <1.0 mg/dL; Sodium 137 mmol/L (137-145); Total Bilirubin 0.2 mg/dL (0.2-1.3); Total Protein 7.2 g/dL (6.3-8.2)
[2020-10-07 14:27] LABS: Partial Thromboplastin Time 21.4 sec (22.0-30.0); Prothrombin Time 10.7 sec (9.0-12.0)
[2020-10-07 14:28] LABS: Amphetamine Screen,Urine Not Detected (NotDetected); Barbiturate Screen,Urine Not Detected (NotDetected); Benzodiazepines Screen,Urine Not Detected (NotDetected); Cocaine Screen,Urine Not Detected (NotDetected); Methadone Screen, Urine Not Detected (NotDetected); Opiate Screen,Urine Not Detected (NotDetected); Oxycodone Screen, Urine Not Detected (NotDetected); Phencyclidine Screen,Urine Not Detected (NotDetected); Tricyclic Antidepressant,Urine Detected (NotDetected); Urn Cannabinoid Scrn Detected (NotDetected)
[2020-10-07 14:29] LABS: Basophils # (A) 0.1 k/uL (0-0.2); Basophils % (A) 1 %; Eosinophils % (A) 0 %; HCT 26.9 % (34.0-46.0); HGB 7.8 gm/dL (11.4-16.0); Hypochromasia Marked; Lymphocytes # (A) 0.7 k/uL (1.0-4.8); Lymphocytes % (A) 5 %; MCH 22.9 pg (25.0-35.0); MCV 78.9 fL (80.0-100.0); Mean Platelet Volume 7.5; Monocytes # (A) 0.7 k/uL (0-1.0); Monocytes % (A) 5 %; Neutrophils # (A) 12.2 k/uL (1.3-7.7); Neutrophils % (A) 89 %; Platelet Count 366 k/uL (150-450); Poikilocytosis Moderate; RDW 15.8 % (11.5-15.5); WBC 13.8 k/uL (3.8-10.6)
--- NOTE | 2020-10-07 14:40 | CT ---
EXAMINATION TYPE: CT angio head neck DATE OF EXAM: 10/07/2020 COMPARISON: None HISTORY: CODE STROKE CT DLP: 429 mGycm CONTRAST: Performed without and with IV Contrast, patient injected with 65 ml mL of Isovue 370. Combination Contrast CTA cervical carotids and [place] CTA cervical carotids with 3-D recons truction Contrast CTA of the cervical carotids was performed 3-D reconstruction imaging obtained at a separate workstation. Right carotid system: Mild plaque is seen of the right common carotid artery. There is mild plaque a lso noted at the carotid bulb and proximal ICA. No significant diameter reduction. ECA is patent. Right vertebral artery appears unremarkable. Left carotid system: Mild plaque is seen of the left common carotid artery. There is mild plaque als o noted at the carotid bulb and proximal ICA. No significant diameter reduction. ECA is patent. Lef t vertebral artery appears unremarkable. IMPRESSION: 1. No significant diameter reduction to account for the patient's symptoms. CTA [place] with 3-D reconstruction Contrast CTA of the [place] was performed 3-D reconstruction imaging obtained at a separate workstation. Vertebrobasilar system as well as intracranial portions of the internal carotid arteries and their ma james tributaries are patent. I do not see evidence for sizable aneurysm or vascular malformation. Pl ease note MRI provides greater sensitivity and specificity. Visualized brain appears grossly unremar kable. IMPRESSION: 1. No significant abnormality.
[2020-10-07] MEDS ORDERED: LORazepam 2 MG/ML INJ IV STA ×2 (14:44→14:51)
--- NOTE | 2020-10-07 15:05 | XR ---
EXAMINATION TYPE: XR chest 2V DATE OF EXAM: 10/07/2020 COMPARISON: 06/19/2020 HISTORY: Altered mental status TECHNIQUE: Frontal and lateral views of the chest are obtained. FINDINGS: Interval worsening of patchy airspace bilaterally and prominence of the interstitium with likely left pleural effusion. Cardiac silhouette is unchanged. Hiatal hernia is present. IMPRESSION: Interval worsening of patchy airspace bilaterally and prominence of the interstitium with likely left pleural effusion.
[2020-10-07] MEDS ORDERED: cefTRIAXone IN SWFI 1,000 MG/10 ML SYRINGE IVP STA (15:21)
[2020-10-07] MEDS ORDERED: ZIPRASIDONE 20 MG VIAL IM STA (16:30)
[2020-10-07] MEDS ORDERED: OLANZapine 10 MG VIAL IM STA (16:53)
[2020-10-07] MEDS ORDERED: SODIUM CHLORIDE 0.9% 1,000 ML IV ONE (17:01)
[2020-10-07 17:03] LABS: Appearance,Urine Clear (Clear); Bacteria,Urine Occasional /hpf; Bilirubin,Urine Negative (Negative); Blood,Urine Trace (Negative); Color,Urine Light Yellow; Glucose,Urine (UA) Negative (Negative); Ketones,Urine Negative (Negative); Leukocyte Esterase,Urine Negative (Negative); Mucus,Urine Rare /hpf; Nitrite,Urine Negative (Negative); Protein,Urine 1+ (Negative); RBC,Urine 1 /hpf (0-5); Squamous Epithelial Cell,Urine 1 /hpf (0-4); Urobilinogen,Urine <2.0 mg/dL (<2.0); WBC,Urine 1 /hpf (0-5)
[2020-10-07 19:02] LABS: Glucose,Whole Blood 124 mg/dL (75-99)
[2020-10-07 19:38] LABS: ABG Base Excess -13.1 mmol/L; ABG HCO3 14 mmol/L (21-25); ABG Oxygen Saturation 97.6 % (94-97); ABG PCO2 29 mmHg (35-45); ABG PH 7.29 (7.35-7.45); ABG PO2 112 mmHg (83-108); ABG TCO2 14 mmol/L (19-24); Allen Test Performed? Yes
[2020-10-07] MEDS ORDERED: SODIUM BICARB 8.4% 50 ML SYR (1 MEQ/ML) IV STA (20:17)
[2020-10-07] MEDS ORDERED: CHLORHEXIDINE GLUCONATE 15 ML CUP MUCOUS MEM ONE (20:40)
[2020-10-07] MEDS ORDERED: propofoL 100 ML IV ONE (20:49)
--- NOTE | 2020-10-07 21:46 | XR ---
EXAMINATION TYPE: XR chest 1V portable DATE OF EXAM: 10/07/2020 COMPARISON: Today HISTORY: Respiratory failure TECHNIQUE: FINDINGS: There is endotracheal tube 2.5 cm from the allison. Heart appears enlarged. There is apparen t large hiatal hernia. There is pulmonary edema. There are chest leads. There is nasogastric tube and the tip is overlying the distal esophagus. IMPRESSION: NG tube does not appear to be in the stomach. There is some mild pulmonary edema not sign ificantly different than exam 6 hours ago.
[2020-10-07 21:52] LABS: ABG HCO3 15 mmol/L (21-25); ABG PCO2 47 mmHg (35-45); ABG PO2 110 mmHg (83-108); ABG TCO2 17 mmol/L (19-24); Allen Test Performed? Yes
[2020-10-07 22:12] LABS: ABG PH 7.12 (7.35-7.45)
[2020-10-07] MEDS: DEXTROSE 5% IN WATER 1,000 ML with SODIUM BICARB (1 MEQ/ML) 150 ML IV SCH (22:18)
[2020-10-07 23:43] LABS: Glucose,Whole Blood 191 mg/dL (75-99)
[2020-10-07 23:54] LABS: ABG Base Excess -9.2 mmol/L; ABG HCO3 17 mmol/L (21-25); ABG Oxygen Saturation 98.9 % (94-97); ABG PCO2 32 mmHg (35-45); ABG PH 7.33 (7.35-7.45); ABG PO2 149 mmHg (83-108); ABG TCO2 18 mmol/L (19-24); Allen Test Performed? Yes
[2020-10-08 06:24] LABS: ABG Base Excess -6.4 mmol/L; ABG HCO3 19 mmol/L (21-25); ABG PCO2 31 mmHg (35-45); ABG PH 7.39 (7.35-7.45); ABG PO2 144 mmHg (83-108); ABG TCO2 20 mmol/L (19-24); Allen Test Performed? Yes
--- NOTE | 2020-10-08 07:26 | XR ---
EXAMINATION TYPE: XR chest 1V portable DATE OF EXAM: 10/08/2020 COMPARISON: 10/07/2020 HISTORY: Tube placement TECHNIQUE: Single frontal view of the chest is obtained. FINDINGS: Lines and tubes are unchanged with the enteric tube terminating in the region of the diaphragmatic hi atus. Left basilar pleural-parenchymal disease is unchanged. Interval improvement in pulmonary edema. Cardiac silhouette is unchanged. Hiatal hernia is present. IMPRESSION: Interval improvement in pulmonary edema.
[2020-10-08 07:40] LABS: Basophils # (A) 0.1 k/uL (0-0.2); Basophils % (A) 1 %; Eosinophils # (A) 0.4 k/uL (0-0.7); Eosinophils % (A) 4 %; HCT 21.5 % (34.0-46.0); Hypochromasia Marked; Lymphocytes # (A) 0.6 k/uL (1.0-4.8); Lymphocytes % (A) 7 %; MCHC 31.1 g/dL (31.0-37.0); Mean Platelet Volume 10.3; Microcytosis Slight; Monocytes # (A) 0.5 k/uL (0-1.0); Monocytes % (A) 6 %; Neutrophils # (A) 7.3 k/uL (1.3-7.7); Neutrophils % (A) 82 %; Platelet Count 240 k/uL (150-450); Poikilocytosis Moderate; RBC 2.79 m/uL (3.80-5.40); RDW 15.8 % (11.5-15.5); WBC 8.8 k/uL (3.8-10.6)
[2020-10-08 07:45] LABS: HGB 6.7 gm/dL (11.4-16.0)
[2020-10-08 07:55] LABS: ALT 13 U/L (4-34); AST 25 U/L (14-36); African American GFR (CKD) >90 (>60 ml/min/1.73 sqM); Albumin 3.2 g/dL (3.5-5.0); Alkaline Phosphatase 79 U/L (38-126); Anion Gap 6 mmol/L; Blood Urea Nitrogen 32 mg/dL (7-17); Calcium 8.2 mg/dL (8.4-10.2); Carbon Dioxide 19 mmol/L (22-30); Chloride 116 mmol/L (98-107); Glucose 103 mg/dL (74-99); Non-African American GFR(CKD) 82 (>60 ml/min/1.73 sqM); Potassium 3.2 mmol/L (3.5-5.1); Sodium 141 mmol/L (137-145); Total Bilirubin 0.2 mg/dL (0.2-1.3); Total Protein 6.1 g/dL (6.3-8.2)
[2020-10-08] MEDS: CHLORHEXIDINE GLUCONATE 15 ML CUP MUCOUS MEM SCH ×2 (08:33→20:25)
[2020-10-08] MEDS ORDERED: Potassium Replacement Protocol 1 EACH MISC MISCELLANE PRN (08:34)
[2020-10-08] MEDS ORDERED: hydrALAZINE HCL 20 MG/ML 1 ML VIAL IVP STA (08:37)
[2020-10-08] MEDS: CLEVIDIPINE BUTYRATE 25 MG in EMPTY BAG 1 BAG IV SCH ×2 (08:42→14:53)
[2020-10-08] MEDS: POTASSIUM BICARBONATE/CIT AC 20 MEQ TABLET.EFF NG-TUBE SCH (08:42)
--- NOTE | 2020-10-08 09:01 | P.CNNES ---
History of Present Illness Consult date: 10/08/20 Requesting physician: Syd Finney Reason for Consult: involuntary extremity movement History of Present Illness: This is a 70-year-old woman with medical history of hypertension, restless leg syndrome, history of coated and was on the vent for 6 weeks, anemia, hypothyroidism, left knee replacement who presented emergency department on 10/07/2021 for altered mental status. History was obtained from medical record as well as the patient's nurse at. Per the ED note it is a mention that the patient stated that this morning he woke up and found the patient on the ground and was had flailing of upper extremity so he put her back in bed and he went to work at around 12:30 PM in the afternoon on 10/07/2020. When he came back again she was on the ground and not responding. And she had the flailing of all extremities and that was answered some questions. She has been taken more Aleve PMs at least 3 or more for her pain. Per the ED note the patient was alert oriented 2. Patient's home medication on medical chart is amitriptyline 50 mg daily at bedtime, Requip 1 mg 1 tablet 3 times a day, lisinopril, hydralazine, Ambien, Synthroid, Lyrica, Flexeril 10 mg 3 times a day when necessary. Some of the workup in the hospital consisted of: Initial vital signs: Blood pressure of 171/74, heart rate of 119, respiratory of 16, initial temperature of 98.0 Fahrenheit oral and pulse ox of 95% room air. H er T-max in our facility was 99.7 but then after that her temperature has been within normal limits CT of the head is reported as age-related atrophic and chronic small vessel ischemic change without acute intracranial process seen at this time. CT cervical spine is reported as no evidence for acute fracture or subluxation of the cervical spine. I reviewed the CT of the cervical spine and I felt that the patient had the moderate to severe cervical spondylosis most significant at C4 C5 and C5-C6. EKG is reported as sinus tachycardia. Possible left atrial enlargement. White bundle branch block. Left anterior fascicular block. Bifascicular block. Left ventricular hypertrophy. Abnormal EKG. Chest x-ray is reported as interval worsening of patchy airspace bilaterally and prominence of the interstitium with likely left pleural effusion. Initial white blood cells 13.8 and it's predominantly neutrophilic. The hemoglobin initially 7.8 and the repeat his 6.7 which is low. MCV is 78.9 which is low. Platelet is 366 within normal limits Initial sodium is 137, initial glucose is 175 which is slightly elevated, calcium is 9.0 which is within normal limits, AST is 26 and ALT of 13 which is within normal limits. Ammonia is less than 9 which is within normal limits at. Creatinine is 1.02 within normal limits. Urine tox screen is positive for tricyclic antidepressant and positive for m arijuana. Otherwise alcohol level was less than 10, acetaminophen is less than 10 and salicylates is less than 1.0 In the ED the patient received 1 mg Ativan and received 200 mg of propofol once and was intubated for airway protection. Per the ED it was felt possibly she had diphenhydramine overdose, pneumonia and has involunatary movement. Review of Systems Review of system is limited with apparent positive and negative as per HPI Past Medical History Past Medical History: Hypertension, Thyroid Disorder Additional Past Medical History / Comment(s): chronic ANEMIA- pt gets iron trans. every 8-12 weeks for over 12 years. Pt has a hx of a sm ulcer History of Any Multi-Drug Resistant Organisms: VRE Date of last positivie culture/infection: 04/12/20 VRE MDRO Source:: Urine Past Surgical History: Hysterectomy, Joint Replacement, Orthopedic Surgery Additional Past Surgical History / Comment(s): LEFT KNEE ARTHROSCOPIC, carpal tunnel, left knee replacement, laser eye surgery Past Anesthesia/Blood Transfusion Reactions: No Reported Reaction Past Psychological History: No Psychological Hx Reported Smoking Status: Former smoker Past Alcohol Use History: None Reported Past Drug Use History: None Reported - Past Family History Mother Family Medical History: No Reported History Medications and Allergies Home Medications Medication Instructions Recorded Confirmed Type lisinopriL [Zestril] 10 mg PO DAILY 08/12/16 10/07/20 History Amitriptyline HCl [Elavil] 50 mg PO HS 03/10/20 10/07/20 History Cyclobenzaprine [Flexeril] 10 mg PO TID PRN 03/10/20 10/07/20 History Levothyroxine Sodium 200 mcg PO DAILY 03/10/20 10/07/20 History rOPINIRole HCL [Requip] 1 mg PO TID 03/10/20 10/07/20 History Omeprazole [PriLOSEC] 20 mg PO AC-BRKFST #90 cap 03/11/20 10/07/20 Rx hydrALAZINE HCL [Apresoline] 75 mg PO TID tab 05/01/20 10/07/20 Rx Pregabalin [Lyrica] See Taper PO DIRECTED 10/07/20 10/07/20 History Zolpidem [Ambien] 5 mg PO HS PRN 10/07/20 10/07/20 History Allergies Allergy/AdvReac Type Severity Reaction Status Date / Time meperidine HCl [From Demerol] Allergy Rash/Hives Verified 03/25/20 11:11 Penicillins Allergy Rash/Hives Verified 03/25/20 11:11 Sulfa (Sulfonamide Allergy Rash/Hives Verified 03/25/20 11:11 Antibiotics) Physical Examination - Vital Signs Vital Signs: Vital Signs Temp Pulse Resp BP Pulse Ox 10/08/20 06:00 64 15 100 10/08/20 05:00 67 17 100 10/08/20 04:00 98.6 F 65 17 100 10/08/20 03:00 71 17 100 10/08/20 02:00 68 16 100 10/08/20 01:00 71 15 100 10/08/20 00:00 97.8 F 75 20 100 10/07/20 23:00 77 18 100 10/07/20 22:00 89 18 97 10/07/20 21:52 89 19 96 10/07/20 17:42 97 26 H 147/80 99 10/07/20 17:21 101 H 26 H 141/86 97 10/07/20 15:47 107 H 26 H 103/81 99 10/07/20 14:54 116 H 32 H 115/85 98 10/07/20 14:47 99.7 F H 10/07/20 14:19 120 H 30 H 163/67 100 10/07/20 13:16 98.0 F 119 H 16 171/74 95 Intake and Output 10/07/20 10/08/20 10/08/20 22:59 06:59 14:59 Intake Total 200 Output Total 550 875 Balance -482 -928 Intake: IV 200 Azithromycin 500 mg In 0 Sodium Chloride 0.9% 250 ml @ 250 mls/hr IVPB DAILY NONA Rx#:[id number] Dextrose 5% in Water 1, 200 000 ml @ 50 mls/hr IV . Q23H NONA with Sodium Bicarb (1 Meq/ml) 150 ml Rx#:[id number] cefTRIAXone 2 gm In 0 Sodium Chloride 0.9% 50 ml @ 100 mls/hr IVPB Q24HR NONA Rx#:[id number] Output: Urine 550 875 Other: Voiding Method Indwelling Catheter Indwelling Catheter Weight 81.647 kg 86.4 kg ABP, PAP, CO, CI - Last 8 Hours Arterial Blood Pressure 131/46 Arterial Blood Pressure 116/45 Arterial Blood Pressure 131/47 Arterial Blood Pressure 152/52 Arterial Blood Pressure 141/49 Arterial Blood Pressure 148/52 Arterial Blood Pressure 163/59 GENERAL: The patient is lying in bed and is not in acute distress. HENT: Negative Brudzinski sign. Supple neck. CHEST: The heart rate is regular rate rhythm. No murmurs to auscultation. No carotid bruit bilaterally. LUNG: Clear to auscultation bilaterally no wheezing noted throughout. Not labored breathing. She in intubated and on ventilator. ABDOMEN/GI: Bowel sounds present in all 4 quadrants. No tenderness to palpation throughout. NEUROLOGICAL: Propofol of 55mcg/kg/min has been held for 20 minutes. Higher mental function: The patient is drowsy but awakeable to voice. She appropriated nods correctly to name and time with options. She nods correctly she is not at home. She is following commands. Language is hard to assess at this time. No neglect. Cranial nerves: The pupils are round, equal and reactive to light. Primary gaze is midline. Visual grant could not be assessed at this time. Extraocular movement is tracking throughout the room. The facial strength is no facial weakness. Is breathing over the vent. The rest of the cranial nerves could not be assessed because of her conditon. Motor: Gait is deferred because of condition. The strength is moving all extremities above gravity and no definitive focality is noted. Normal tone and bulk. Cerebellum: Could not assess. Sensation: Could not assess. Reflexes (right/left):2+ throughout. Plantars are downgoing bilaterally. Results Urine analysis seem negative for urinary tract infection. Initial ABG is the pH is 7.28, pCO2 29, bicarb is 14, pO2 is 205. [place] virus PCR was not detected - Laboratory Findings CBC and BMP: 10/08/20 07:00 10/08/20 07:00 Abnormal Lab Findings: Abnormal Labs 10/07/20 10/07/20 10/07/20 13:58 13:58 13:58 WBC 13.8 H RBC 3.40 L Hgb 7.8 L Hct 26.9 L MCV 78.9 L MCH 22.9 L MCHC 29.0 L RDW 15.8 H Neutrophils # 12.2 H Lymphocytes # 0.7 L APTT 21.4 L ABG pH ABG pCO2 ABG pO2 ABG HCO3 ABG Total CO2 ABG O2 Saturation Potassium Chloride 115 H Carbon Dioxide 10 L BUN 49 H Glucose 175 H POC Glucose (mg/dL) Calcium Total Protein Albumin Ur Specific [place] Urine Protein Urine Blood Urine Bacteria Urine Mucus U Tricyclic Antidepress U Marijuana (THC) Screen 10/07/20 10/07/20 10/07/20 13:58 14:05 16:51 WBC RBC Hgb Hct MCV MCH MCHC RDW Neutrophils # Lymphocytes # APTT ABG pH 7.28 L ABG pCO2 29 L ABG pO2 205 H ABG HCO3 14 L ABG Total CO2 14 L ABG O2 Saturation 99.2 H Potassium Chloride Carbon Dioxide BUN Glucose POC Glucose (mg/dL) Calcium Total Protein Albumin Ur Specific [place] 1.040 H Urine Protein 1+ H Urine Blood Trace H Urine Bacteria Occasional H Urine Mucus Rare H U Tricyclic Antidepress Detected H U Marijuana (THC) Screen Detected H 10/07/20 10/07/20 10/07/20 18:59 19:35 21:50 WBC RBC Hgb Hct MCV MCH MCHC RDW Neutrophils # Lymphocytes # APTT ABG pH 7.29 L 7.12 L* ABG pCO2 29 L 47 H ABG pO2 112 H 110 H ABG HCO3 14 L 15 L ABG Total CO2 14 L 17 L ABG O2 Saturation 97.6 H Potassium Chloride Carbon Dioxide BUN Glucose POC Glucose (mg/dL) 124 H Calcium Total Protein Albumin Ur Specific [place] Urine Protein Urine Blood Urine Bacteria Urine Mucus U Tricyclic Antidepress U Marijuana (THC) Screen 10/07/20 10/07/20 10/08/20 23:41 23:50 06:20 WBC RBC Hgb Hct MCV MCH MCHC RDW Neutrophils # Lymphocytes # APTT ABG pH 7.33 L ABG pCO2 32 L 31 L ABG pO2 149 H 144 H ABG HCO3 17 L 19 L ABG Total CO2 18 L ABG O2 Saturation 98.9 H 99.0 H Potassium Chloride Carbon Dioxide BUN Glucose POC Glucose (mg/dL) 191 H Calcium Total Protein Albumin Ur Specific [place] Urine Protein Urine Blood Urine Bacteria Urine Mucus U Tricyclic Antidepress U Marijuana (THC) Screen 10/08/20 10/08/20 07:00 07:00 WBC RBC 2.79 L Hgb 6.7 L* Hct 21.5 L MCV 77.0 L MCH 24.0 L MCHC RDW 15.8 H Neutrophils # Lymphocytes # 0.6 L APTT ABG pH ABG pCO2 ABG pO2 ABG HCO3 ABG Total CO2 ABG O2 Saturation Potassium 3.2 L Chloride 116 H Carbon Dioxide 19 L BUN 32 H Glucose 103 H POC Glucose (mg/dL) Calcium 8.2 L Total Protein 6.1 L Albumin 3.2 L Ur Specific [place] Urine Protein Urine Blood Urine Bacteria Urine Mucus U Tricyclic Antidepress U Marijuana (THC) Screen Assessment and Plan Assessment: Episode of unresponsiveness and reported involuntary movement. One of the possibilities is seizure. There is a concern for diphenhydramine overdose. Rule out any other underlying infection as a result of these episode. Altered mental status: Due to toxic encephalopathy (possible diphenhydramine overdose) and medication (Sedation)--mentation improving. Positive for tricyclic antidepressant and marijuana use on UDS screen Episode of leukocytosis on presentation that resolved possibly reactive versus underlying infection. Does not seem like meningo-encephalitis. Acute respiratory failure on ventilation. Acute on chronic anemia Cervical spondylosis which seems moderate to severe most significant at C4-C5 and C5-C6 Restless leg syndrome History of COVID 19 Hypothyroidism History of left knee replacement Plan: I ordered a stat EEG. I will not start the patient on an antiepileptic drugs until I get more information about the patient's event and if she truly has seizure then I will start her on medications. Placed on seizure precaution and seizure pads. Possibly will consider getting MRI Brain once the patient is stable. Place on Q1 hours neuro-checks and continous cardiac monitoring. Will defer the rest of medical management to the primary and ICU team. The plan is discussed with the patient's nurse and ICU attending. I attempted to contact the patient's spouse (Dre) via phone no response, therefore will attempt later. Thank you for the consult. Erik Basha, MD Neuro-Hospitalist Time with Patient: Greater than 30
[2020-10-08] MEDS: AZITHROMYCIN 500 MG in SODIUM CHLORIDE 0.9% 250 ML IVPB SCH (09:02)
[2020-10-08 11:35] LABS: Glucose,Whole Blood 105 mg/dL (75-99)
--- NOTE | 2020-10-08 11:36 | P.CNPUL ---
History of Present Illness Consult date: 10/08/20 Requesting physician: Cody Aleman Reason for consult: other (Mental status change, unable to protect her airway) Chief complaint: Mental status change History of present illness: This is a 70-year-old female with history of multiple medical problems including hypertension, history of COVID-19 pneumonia requiring intubation and mechanical ventilation for 6 weeks back in March, history of hypothyroidism, chronic anemia, patient was brought into the ER on 10/07/2020, mostly with symptoms of a ltered mental status. found patient in the morning on the ground, flailing of upper extremities, he is back in bed, and came back around 12:30 PM were and she was noted to be on the ground, not responding, and she was noted to be flailing all extremities confused, hence she was brought into the ER. Workup was basically nondiagnostic. Patient had positive drug screen for tricyclics antidepressants, and she also had positive drug screen for marijuana. Otherwise her drug screen was negative and her coronavirus screening was also negative. CT of the head showed age-related atrophic changes and chronic small vessel ischemic change without acute intracranial process. CT of the cervical spine was negative. EKG was unremarkable. Chest x-ray showed patchy airspace disease bilaterally with prominence of the interstitium and possibly a small left pleural effusion. CBC showed a bit of leukocytosis. Otherwise unremarkable. Hemoglobin was low 7.8 and this is normal for the patient. Patient does have chronic iron deficiency anemia. While in the ER, patient received 1 mg of Ativ an. Patient was admitted to the regular medical floor, although the ER physician raises the concern about the patient's mental status and confusion he even raise the concern about possible inability to protect her airways. And he discussed this with the primary care physician and they both decided not to reintubate the patient. Patient arrived to the medical floor, and the nurses were quite concerned about the patient's overall mental status and the fact that the patient was unable to protect her airways. ABG was done, and I was made aware of the ABG reflecting mostly a picture of metabolic acidosis. I recommended immediate transfer to ICU and intubation mostly to protect her airways. Patient was intubated she is still on mechanical ventilation with assist control rate of 16, volume 400 FiO2 of 30% PEEP of 5. ABG today showed a pO2 of 144 pCO2 of 31 pH of 7.39. Patient is on propofol at 50 mcg/kg/m she is also on bicarb drip at 50 mL per hour. Patient is arousable I discontinued her propofol, she seems to be answering appropriately. And following instructions appropriately. Neurology is planning EEG, her blood pressure was noted to be extremely elevated and I recommended clevidipine drip. I will likely proceed to extubating the patient in the next hour or so. Follow-up chest x-ray showed improvement in her interstitial findings, nonetheless I recommended antibiotics for presumptive aspiration on this patient. Review of Systems ROS unobtainable: due to endotracheal tube Past Medical History Past Medical History: Hypertension, Thyroid Disorder Additional Past Medical History / Comment(s): chronic ANEMIA- pt gets iron trans. every 8-12 weeks for over 12 years. Pt has a hx of a sm ulcer History of Any Multi-Drug Resistant Organisms: VRE Date of last positivie culture/infection: 04/12/20 VRE MDRO Source:: Urine Past Surgical History: Hysterectomy, Joint Replacement, Orthopedic Surgery Additional Past Surgical History / Comment(s): LEFT KNEE ARTHROSCOPIC, carpal tunnel, left knee replacement, laser eye surgery Past Anesthesia/Blood Transfusion Reactions: No Reported Reaction Past Psychological History: No Psychological Hx Reported Smoking Status: Former smoker Past Alcohol Use History: None Reported Past Drug Use History: None Reported - Past Family History Mother Family Medical History: No Reported History Medications and Allergies Home Medications Medication Instructions Recorded Confirmed Type lisinopriL [Zestril] 10 mg PO DAILY 08/12/16 10/07/20 History Amitriptyline HCl [Elavil] 50 mg PO HS 03/10/20 10/07/20 History Cyclobenzaprine [Flexeril] 10 mg PO TID PRN 03/10/20 10/07/20 History Levothyroxine Sodium 200 mcg PO DAILY 03/10/20 10/07/20 History rOPINIRole HCL [Requip] 1 mg PO TID 03/10/20 10/07/20 History Omeprazole [PriLOSEC] 20 mg PO AC-BRKFST #90 cap 03/11/20 10/07/20 Rx hydrALAZINE HCL [Apresoline] 75 mg PO TID tab 05/01/20 10/07/20 Rx Pregabalin [Lyrica] See Taper PO DIRECTED 10/07/20 10/07/20 History Zolpidem [Ambien] 5 mg PO HS PRN 10/07/20 10/07/20 History Allergies Allergy/AdvReac Type Severity Reaction Status Date / Time meperidine HCl [From Demerol] Allergy Rash/Hives Verified 03/25/20 11:11 Penicillins Allergy Rash/Hives Verified 03/25/20 11:11 Sulfa (Sulfonamide Allergy Rash/Hives Verified 03/25/20 11:11 Antibiotics) Physical Exam Vitals: Vital Signs Temp Pulse Resp BP Pulse Ox 10/08/20 10:00 89 16 116/57 100 10/08/20 09:00 78 15 100 10/08/20 08:00 98.7 F 71 20 100 10/08/20 07:00 73 17 100 10/08/20 06:00 64 15 100 10/08/20 05:00 67 17 100 10/08/20 04:00 98.6 F 65 17 100 10/08/20 03:00 71 17 100 10/08/20 02:00 68 16 100 10/08/20 01:00 71 15 100 10/08/20 00:00 97.8 F 75 20 100 10/07/20 23:00 77 18 100 10/07/20 22:00 89 18 97 10/07/20 21:52 89 19 96 10/07/20 17:42 97 26 H 147/80 99 10/07/20 17:21 101 H 26 H 141/86 97 10/07/20 15:47 107 H 26 H 103/81 99 10/07/20 14:54 116 H 32 H 115/85 98 10/07/20 14:47 99.7 F H 10/07/20 14:19 120 H 30 H 163/67 100 10/07/20 13:16 98.0 F 119 H 16 171/74 95 Intake and Output 10/07/20 10/08/20 10/08/20 22:59 06:59 14:59 Intake Total 200 285.165 Output Total 550 875 155 Balance -550 -675 130.165 Intake: IV 200 250 Azithromycin 500 mg In 0 Sodium Chloride 0.9% 250 ml @ 250 mls/hr IVPB DAILY NONA Rx#:[id number] Dextrose 5% in Water 1, 200 250 000 ml @ 50 mls/hr IV . Q23H NONA with Sodium Bicarb (1 Meq/ml) 150 ml Rx#:[id number] cefTRIAXone 2 gm In 0 Sodium Chloride 0.9% 50 ml @ 100 mls/hr IVPB Q24HR NONA Rx#:[id number] Intake, IV Titration 35.165 Amount propofoL 1,000 mg In 35.165 Empty Bag 1 bag @ Titrate IV .Q0M NONA Rx#: [id number] Output: Urine 550 875 155 Other: Voiding Method Indwelling Catheter Indwelling Catheter Indwelling Catheter Weight 81.647 kg 86.4 kg ABP, PAP, CO, CI - Last 8 Hours Arterial Blood Pressure 154/67 Arterial Blood Pressure 185/61 Arterial Blood Pressure 152/51 Arterial Blood Pressure 172/60 Arterial Blood Pressure 131/46 Arterial Blood Pressure 116/45 Arterial Blood Pressure 131/47 Physical Exam: Revealed a 70-year-old female intubated and mechanically ventilated. Head: Atraumatic, normocephalic. Endotracheal tube and orogastric tube are intact HEENT:[Neck is supple.] [No neck masses.] [No thyromegaly.] [No JVD.] PERRLA, EOMI, anicteric. Chest: [Electrical chest expansion, final crackles at the bases no rhonchi and no wheezes Cardiac Exam: [Normal S1 and S2, no S3 gallop, no murmur.] Abdomen: [Soft, nontender, no megaly, no rebound, no guarding, normal bowel sounds.] Extremities: No clubbing edema or cyanosis, good pulses bilaterally. Neurological Exam: Patient is arousable, follows simple instructions like squeezing hands, wiggling toes, raising arms and legs appropriately. Psychiatric: Depressed mood, blunt affect, follows simple instructions relatively adequate mental status. Skin: No rashes. Musculoskeletal: No deformities and no limitation in range of motion. Results - Laboratory Findings CBC and BMP: 10/08/20 07:00 10/08/20 07:00 ABG ABG pH 7.39 (7.35-7.45) 10/08/20 06:20 ABG pCO2 31 mmHg (35-45) L 10/08/20 06:20 ABG pO2 144 mmHg (83-108) H 10/08/20 06:20 ABG O2 Saturation 99.0 % (94-97) H 10/08/20 06:20 PT/INR, D-dimer PT 10.7 sec (9.0-12.0) 10/07/20 13:58 INR 1.0 (<1.2) 10/07/20 13:58 Abnormal lab findings: Abnormal Labs 10/07/20 10/07/20 10/07/20 13:58 13:58 13:58 WBC 13.8 H RBC 3.40 L Hgb 7.8 L Hct 26.9 L MCV 78.9 L MCH 22.9 L MCHC 29.0 L RDW 15.8 H Neutrophils # 12.2 H Lymphocytes # 0.7 L APTT 21.4 L ABG pH ABG pCO2 ABG pO2 ABG HCO3 ABG Total CO2 ABG O2 Saturation Potassium Chloride 115 H Carbon Dioxide 10 L BUN 49 H Glucose 175 H POC Glucose (mg/dL) Calcium Total Protein Albumin Ur Specific [place] Urine Protein Urine Blood Urine Bacteria Urine Mucus U Tricyclic Antidepress U Marijuana (THC) Screen Crossmatch 10/07/20 10/07/20 10/07/20 13:58 14:05 16:51 WBC RBC Hgb Hct MCV MCH MCHC RDW Neutrophils # Lymphocytes # APTT ABG pH 7.28 L ABG pCO2 29 L ABG pO2 205 H ABG HCO3 14 L ABG Total CO2 14 L ABG O2 Saturation 99.2 H Potassium Chloride Carbon Dioxide BUN Glucose POC Glucose (mg/dL) Calcium Total Protein Albumin Ur Specific [place] 1.040 H Urine Protein 1+ H Urine Blood Trace H Urine Bacteria Occasional H Urine Mucus Rare H U Tricyclic Antidepress Detected H U Marijuana (THC) Screen Detected H Crossmatch 10/07/20 10/07/20 10/07/20 18:59 19:35 21:50 WBC RBC Hgb Hct MCV MCH MCHC RDW Neutrophils # Lymphocytes # APTT ABG pH 7.29 L 7.12 L* ABG pCO2 29 L 47 H ABG pO2 112 H 110 H ABG HCO3 14 L 15 L ABG Total CO2 14 L 17 L ABG O2 Saturation 97.6 H Potassium Chloride Carbon Dioxide BUN Glucose POC Glucose (mg/dL) 124 H Calcium Total Protein Albumin Ur Specific [place] Urine Protein Urine Blood Urine Bacteria Urine Mucus U Tricyclic Antidepress U Marijuana (THC) Screen Crossmatch 10/07/20 10/07/20 10/08/20 23:41 23:50 06:20 WBC RBC Hgb Hct MCV MCH MCHC RDW Neutrophils # Lymphocytes # APTT ABG pH 7.33 L ABG pCO2 32 L 31 L ABG pO2 149 H 144 H ABG HCO3 17 L 19 L ABG Total CO2 18 L ABG O2 Saturation 98.9 H 99.0 H Potassium Chloride Carbon Dioxide BUN Glucose POC Glucose (mg/dL) 191 H Calcium Total Protein Albumin Ur Specific [place] Urine Protein Urine Blood Urine Bacteria Urine Mucus U Tricyclic Antidepress U Marijuana (THC) Screen Crossmatch 10/08/20 10/08/20 10/08/20 07:00 07:00 09:30 WBC RBC 2.79 L Hgb 6.7 L* Hct 21.5 L MCV 77.0 L MCH 24.0 L MCHC RDW 15.8 H Neutrophils # Lymphocytes # 0.6 L APTT ABG pH ABG pCO2 ABG pO2 ABG HCO3 ABG Total CO2 ABG O2 Saturation Potassium 3.2 L Chloride 116 H Carbon Dioxide 19 L BUN 32 H Glucose 103 H POC Glucose (mg/dL) Calcium 8.2 L Total Protein 6.1 L Albumin 3.2 L Ur Specific [place] Urine Protein Urine Blood Urine Bacteria Urine Mucus U Tricyclic Antidepress U Marijuana (THC) Screen Crossmatch See Detail - Diagnostic Findings Chest x-ray: image reviewed (As noted in HPI.) Additional studies: CT of the brain: As noted in HPI. Assessment and Plan Assessment: Impression: Acute episode of mental status change and involuntary movement, possible seizure, etiology is being investigated by neurology on the case. Positive drug screen for try cyclic antidepressant and marijuana. Possible drug overdose. Acute hypoxic respiratory failure secondary to above, patient was intubated mostly because of the inability to protect her airways. And this is mostly related to her mental status change and acute toxic metabolic encephalopathy. Again I strongly suspect seizure disorder. EEG is pending. Acute on chronic iron deficiency anemia, patient receives iron transfusion every 8-12 weeks for the last 12 years. History of restless leg syndrome History of COVID-19 pneumonia History of hypothyroidism History of left total knee arthroplasty. History of depression Chronic interstitial infiltrates most likely secondary to previous history of COVID-19 infection, however possibility of aspiration pneumonia is not entirely ruled out. [place] to be less likely Hypertensive urgency. Recommendation: Seizure precautions. Until EEG is performed. Continue present supportive care measures. Continue ventilatory support. Continue antibiotics empirically. Continue clevidipine. Discontinue propofol and assess mental status fully off propofol consider placing the patient on pressure support and CPAP, and if tolerated may proceed to extubation. EEG as ordered by neurology. GI and DVT prophylaxis. Continue bicarb for now. Weaning trial once the patient is fully off propofol and mental status improving. Possible extubation later today. We'll continue to follow. Time with Patient: Greater than 30
[2020-10-08] MEDS: ENOXAPARIN 40 MG/0.4 ML SYRINGE SQ SCH (12:13)
[2020-10-08] MEDS: PANTOPRAZOLE 40 MG/10 ML VIAL IVP SCH (12:14)
--- NOTE | 2020-10-08 17:07 | EEG ---
ELECTROENCEPHALOGRAM REPORT DATE OF SERVICE: 10/08/2020. CLINICAL HISTORY: This is a 70-year-old woman who presented to the emergency department after being found unresponsive. This video EEG is obtained to evaluate for seizure and epileptiform activity. RELEVANT MEDICATION: Ativan 1 mg that the patient received on 10/07/2020. DESCRIPTION: Wakefulness and drowsiness are obtained. During wakefulness, there is a posterior dominant rhythm of low to moderate voltage, that is poorly modulated of 8.5-9.5 Hz activity. During drowsiness, there is slowing and attenuation of the background activity. There is no physiological stage II sleep. There is excessive fast activity seen. Interictal and ictal are none. ACTIVATION PROCEDURE: Photic stimulation did evoke a posterior driving response at multiple low/frequencies. There is no abnormality during the photic stimulation. Hyperventilation is not performed. CLINICAL INTERPRETATION: This is a normal routine EEG. There are no focal slowing, epileptiform discharges or seizure on the EEG. Clinical correlation is recommended. ANATOLIY / YUNGN: [id number] / HÉCTOR
[2020-10-08 17:14] LABS: Anisocytosis Slight; HCT 24.5 % (34.0-46.0); HGB 7.5 gm/dL (11.4-16.0); Hypochromasia Marked; MCH 24.1 pg (25.0-35.0); MCHC 30.5 g/dL (31.0-37.0); MCV 78.9 fL (80.0-100.0); Microcytosis Slight; Platelet Count 276 k/uL (150-450); Poikilocytosis Moderate; RBC 3.11 m/uL (3.80-5.40); RDW 16.1 % (11.5-15.5); WBC 11.8 k/uL (3.8-10.6)
[2020-10-08 17:29] LABS: Glucose,Whole Blood 94 mg/dL (75-99)
--- NOTE | 2020-10-08 20:09 | P.HPIM ---
History of Present Illness H&P Date: 10/08/20 Chief Complaint: AMS This is a history and physical a 70-year-old white female with known history of chronic anemia hypertension and history of Covid 19 about 6 months ago who has been doing quite well until yesterday her found her flailing significantly altered mental status. The found her and placed her back in the bed. When he came home she was again out of the bed and altered. No history of previous activity like this. The does state that she has issues taking excess of Tylenol PM. No history of illicit substance abuse previously. The patient was given significant Ativan to try to calm down her movement. This did not significantly improve her movement. Propofol was given and now she is transferred to the ICU secondary to protection of airway. Consultants are pulmonology and neurology. Review of Systems ROS unobtainable: due to endotracheal tube Past Medical History Past Medical History: Hypertension, Thyroid Disorder Additional Past Medical History / Comment(s): chronic ANEMIA- pt gets iron trans. every 8-12 weeks for over 12 years. Pt has a hx of a sm ulcer History of Any Multi-Drug Resistant Organisms: VRE Date of last positivie culture/infection: 04/12/20 VRE MDRO Source:: Urine Past Surgical History: Hysterectomy, Joint Replacement, Orthopedic Surgery Additional Past Surgical History / Comment(s): LEFT KNEE ARTHROSCOPIC, carpal tunnel, left knee replacement, laser eye surgery Past Anesthesia/Blood Transfusion Reactions: No Reported Reaction Past Psychological History: No Psychological Hx Reported Smoking Status: Former smoker Past Alcohol Use History: None Reported Past Drug Use History: None Reported - Past Family History Mother Family Medical History: No Reported History Medications and Allergies Home Medications Medication Instructions Recorded Confirmed Type RX: lisinopriL [Zestril] 10 mg PO DAILY 08/12/16 10/07/20 History RX: Amitriptyline HCl [Elavil] 50 mg PO HS 03/10/20 10/07/20 History RX: Cyclobenzaprine [Flexeril] 10 mg PO TID PRN 03/10/20 10/07/20 History RX: Levothyroxine Sodium 200 mcg PO DAILY 03/10/20 10/07/20 History RX: rOPINIRole HCL [Requip] 1 mg PO TID 03/10/20 10/07/20 History RX: Omeprazole [PriLOSEC] 20 mg PO AC-BRKFST #90 cap 03/11/20 10/07/20 Rx RX: hydrALAZINE HCL [Apresoline] 75 mg PO TID tab 05/01/20 10/07/20 Rx Pregabalin [Lyrica] See Taper PO DIRECTED 10/07/20 10/07/20 History Zolpidem [Ambien] 5 mg PO HS PRN 10/07/20 10/07/20 History Allergies Allergy/AdvReac Type Severity Reaction Status Date / Time meperidine HCl [From Demerol] Allergy Rash/Hives Verified 03/25/20 11:11 Penicillins Allergy Rash/Hives Verified 03/25/20 11:11 Sulfa (Sulfonamide Allergy Rash/Hives Verified 03/25/20 11:11 Antibiotics) Physical Exam Vitals: Vital Signs Temp Pulse Resp BP Pulse Ox 10/08/20 19:00 99 16 104/76 97 10/08/20 18:00 91 21 122/66 99 10/08/20 17:00 91 16 122/56 98 10/08/20 16:00 98.5 F 89 15 124/59 99 10/08/20 15:22 98.7 F 89 121/60 10/08/20 15:00 90 12 132/65 100 10/08/20 14:52 98.8 F 90 18 123/59 10/08/20 14:22 98.8 F 90 16 142/64 100 10/08/20 14:12 98.8 F 89 12 162/69 10/08/20 14:00 94 20 124/61 100 10/08/20 13:00 93 19 146/65 100 10/08/20 12:00 98.5 F 96 16 128/55 100 10/08/20 11:00 80 15 99 10/08/20 10:00 89 16 116/57 100 10/08/20 09:00 78 15 100 10/08/20 08:00 98.7 F 71 20 100 10/08/20 07:00 73 17 100 10/08/20 06:00 64 15 100 10/08/20 05:00 67 17 100 10/08/20 04:00 98.6 F 65 17 100 10/08/20 03:00 71 17 100 10/08/20 02:00 68 16 100 10/08/20 01:00 71 15 100 10/08/20 00:00 97.8 F 75 20 100 10/07/20 23:00 77 18 100 10/07/20 22:00 89 18 97 10/07/20 21:52 89 19 96 Intake and Output 10/08/20 10/08/20 10/08/20 06:59 14:59 22:59 Intake Total 200 457.831 560 Output Total 875 380 360 Balance -675 77.831 200 Intake: IV 200 400 250 Azithromycin 500 mg In 0 Sodium Chloride 0.9% 250 ml @ 250 mls/hr IVPB DAILY NONA Rx#:[id number] Dextrose 5% in Water 1, 200 400 250 000 ml @ 50 mls/hr IV . Q23H NONA with Sodium Bicarb (1 Meq/ml) 150 ml Rx#:[id number] cefTRIAXone 2 gm In 0 Sodium Chloride 0.9% 50 ml @ 100 mls/hr IVPB Q24HR NONA Rx#:[id number] Intake, IV Titration 57.831 Amount Clevidipine Butyrate 25 22.666 mg In Empty Bag 1 bag @ 1 MG/HR 2 mls/hr IV .Q24H NONA Rx#:[id number] propofoL 1,000 mg In 35.165 Empty Bag 1 bag @ Titrate IV .Q0M NONA Rx#: [id number] Blood Product 0 310 Rc As-1 Unit 0 310 [id number] Output: Urine 875 380 360 Other: Voiding Method Indwelling Catheter Indwelling Catheter Indwelling Catheter Weight 86.4 kg ABP, PAP, CO, CI - Last 8 Hours Arterial Blood Pressure 129/57 Arterial Blood Pressure 107/57 Arterial Blood Pressure 123/59 Arterial Blood Pressure 122/65 Arterial Blood Pressure 123/63 - Constitutional General appearance: no acute distress - EENT Eyes: EOMI - Neck Neck: lymphadenopathy - Cardiovascular Rhythm: irregularly irregular Heart sounds: normal: S1, S2 Abnormal Heart Sounds: S3 Gallop - Gastrointestinal General gastrointestinal: soft, no tenderness - Integumentary Integumentary: no cellulitis - Musculoskeletal Musculoskeletal: no generalized weakness - Psychiatric Psychiatric: appropriate affect Results CBC & Chem 7: 10/08/20 17:00 10/08/20 17:00 Labs: Abnormal Lab Results - Last 24 Hours (Table) 10/07/20 10/07/2010/07/21 Range/Units 21:50 23:41 23:50 WBC (3.8-10.6) k/uL RBC (3.80-5.40) m/uL Hgb (11.4-16.0) gm/dL Hct (34.0-46.0) % MCV (80.0-100.0) fL MCH (25.0-35.0) pg MCHC (31.0-37.0) g/dL RDW (11.5-15.5) % Lymphocytes # (1.0-4.8) k/uL ABG pH 7.12 L* 7.33 L (7.35-7.45) ABG pCO2 47 H 32 L (35-45) mmHg ABG pO2 110 H 149 H (83-108) mmHg ABG HCO3 15 L 17 L (21-25) mmol/L ABG Total CO2 17 L 18 L (19-24) mmol/L ABG O2 Saturation 98.9 H (94-97) % Potassium (3.5-5.1) mmol/L Chloride (98-107) mmol/L Carbon Dioxide (22-30) mmol/L BUN (7-17) mg/dL Glucose (74-99) mg/dL POC Glucose (mg/dL) 191 H (75-99) mg/dL Calcium (8.4-10.2) mg/dL Total Protein (6.3-8.2) g/dL Albumin (3.5-5.0) g/dL Crossmatch 10/08/20 10/08/20 10/08/20 Range/Units 06:20 07:00 07:00 WBC (3.8-10.6) k/uL RBC 2.79 L (3.80-5.40) m/uL Hgb 6.7 L* (11.4-16.0) gm/dL Hct 21.5 L (34.0-46.0) % MCV 77.0 L (80.0-100.0) fL MCH 24.0 L (25.0-35.0) pg MCHC (31.0-37.0) g/dL RDW 15.8 H (11.5-15.5) % Lymphocytes # 0.6 L (1.0-4.8) k/uL ABG pH (7.35-7.45) ABG pCO2 31 L (35-45) mmHg ABG pO2 144 H (83-108) mmHg ABG HCO3 19 L (21-25) mmol/L ABG Total CO2 (19-24) mmol/L ABG O2 Saturation 99.0 H (94-97) % Potassium 3.2 L (3.5-5.1) mmol/L Chloride 116 H (98-107) mmol/L Carbon Dioxide 19 L (22-30) mmol/L BUN 32 H (7-17) mg/dL Glucose 103 H (74-99) mg/dL POC Glucose (mg/dL) (75-99) mg/dL Calcium 8.2 L (8.4-10.2) mg/dL Total Protein 6.1 L (6.3-8.2) g/dL Albumin 3.2 L (3.5-5.0) g/dL Crossmatch 10/08/20 10/08/20 10/08/20 Range/Units 09:30 11:34 17:00 WBC 11.8 H (3.8-10.6) k/uL RBC 3.11 L (3.80-5.40) m/uL Hgb 7.5 L (11.4-16.0) gm/dL Hct 24.5 L (34.0-46.0) % MCV 78.9 L (80.0-100.0) fL MCH 24.1 L (25.0-35.0) pg MCHC 30.5 L (31.0-37.0) g/dL RDW 16.1 H (11.5-15.5) % Lymphocytes # (1.0-4.8) k/uL ABG pH (7.35-7.45) ABG pCO2 (35-45) mmHg ABG pO2 (83-108) mmHg ABG HCO3 (21-25) mmol/L ABG Total CO2 (19-24) mmol/L ABG O2 Saturation (94-97) % Potassium (3.5-5.1) mmol/L Chloride (98-107) mmol/L Carbon Dioxide (22-30) mmol/L BUN (7-17) mg/dL Glucose (74-99) mg/dL POC Glucose (mg/dL) 105 H (75-99) mg/dL Calcium (8.4-10.2) mg/dL Total Protein (6.3-8.2) g/dL Albumin (3.5-5.0) g/dL Crossmatch See Detail Microbiology - Last 24 Hours (Table) 10/07/20 16:09 Blood Culture - Preliminary Blood No Growth after 24 hours 10/08/20 00:00 Sputum Culture - Preliminary Sputum Assessment and Plan (1) Altered mental status Current Visit: Yes Status: Acute Code(s): R41.82 - ALTERED MENTAL STATUS, UNSPECIFIED SNOMED Code(s): 702501833 (2) Anemia Current Visit: Yes Status: Acute Code(s): D64.9 - ANEMIA, UNSPECIFIED SNOMED Code(s): 565152706 (3) Diphenhydramine overdose Current Visit: Yes Status: Acute Code(s): T45.0X1A - POISONING BY ANTIALLERG/ANTIEMETIC, ACCIDENTAL, INIT SNOMED Code(s): 422813085 (4) Fibromyalgia Current Visit: No Status: Acute Code(s): M79.7 - FIBROMYALGIA SNOMED Code(s): 346570502 (5) Symptomatic anemia Current Visit: No Status: Acute Priority: High Code(s): D64.9 - ANEMIA, UNSPECIFIED SNOMED Code(s): 543674907 Plan: The patient will have continued supportive care. Appreciate multiple consultants input. Transfused 1 unit PRBC. check CBC and CMP in a.m. Time with Patient: Greater than 30
[2020-10-08] MEDS: ACETAMINOPHEN TAB 325 MG TAB PO PRN (21:14)
[2020-10-09 04:31] LABS: Anisocytosis Slight; HCT 23.6 % (34.0-46.0); HGB 7.5 gm/dL (11.4-16.0); Hypochromasia Marked; MCH 24.7 pg (25.0-35.0); MCHC 31.6 g/dL (31.0-37.0); MCV 78.1 fL (80.0-100.0); Mean Platelet Volume 8.8; Microcytosis Slight; Platelet Count 254 k/uL (150-450); Poikilocytosis Moderate; RBC 3.02 m/uL (3.80-5.40); RDW 16.2 % (11.5-15.5); WBC 8.5 k/uL (3.8-10.6)
[2020-10-09 04:41] LABS: ALT 13 U/L (4-34); AST 29 U/L (14-36); African American GFR (CKD) >90 (>60 ml/min/1.73 sqM); Alkaline Phosphatase 73 U/L (38-126); Anion Gap 5 mmol/L; Blood Urea Nitrogen 19 mg/dL (7-17); Carbon Dioxide 25 mmol/L (22-30); Chloride 113 mmol/L (98-107); Glucose 124 mg/dL (74-99); Non-African American GFR(CKD) >90 (>60 ml/min/1.73 sqM); Potassium 3.6 mmol/L (3.5-5.1); Sodium 143 mmol/L (137-145); Total Bilirubin 0.3 mg/dL (0.2-1.3); Total Protein 5.8 g/dL (6.3-8.2)
[2020-10-09 06:17] LABS: Glucose,Whole Blood 156 mg/dL (75-99)
[2020-10-09] MEDS: DEXTROSE 5% IN WATER 1,000 ML with SODIUM BICARB (1 MEQ/ML) 150 ML IV SCH (06:55)
[2020-10-09] MEDS ORDERED: POTASSIUM CHLORIDE ER 20 MEQ TAB.ER PO SCH (07:00)
--- NOTE | 2020-10-09 07:27 | XR ---
EXAMINATION TYPE: XR chest 1V portable DATE OF EXAM: 10/09/2020 COMPARISON: 10/08/2020 HISTORY: Tube placement TECHNIQUE: Single frontal view of the chest is obtained. FINDINGS: Interval removal of endotracheal and enteric tubes. Patchy airspace disease bilaterally with prominence of the interstitium increased since prior exam. L eft lung base is excluded. Cardiac silhouette is unchanged. IMPRESSION: Patchy airspace disease bilaterally with prominence of the interstitium increased since the prior exa m.
[2020-10-09] MEDS: PANTOPRAZOLE 40 MG/10 ML VIAL IVP SCH (08:12)
[2020-10-09] MEDS: ENOXAPARIN 40 MG/0.4 ML SYRINGE SQ SCH (08:12)
[2020-10-09] MEDS ORDERED: FUROSEMIDE 10 MG/ML 4 ML VIAL IV STA (08:28)
[2020-10-09] MEDS: AZITHROMYCIN 500 MG in SODIUM CHLORIDE 0.9% 250 ML IVPB SCH (08:52)
[2020-10-09] MEDS ORDERED: LORazepam 2 MG/ML INJ IV STA (09:00)
[2020-10-09] MEDS: SODIUM CHLORIDE 0.9% 1,000 ML IV SCH (09:27)
--- NOTE | 2020-10-09 12:01 | P.PN ---
Subjective Progress Note Date: 10/09/20 Principal diagnosis: Mental status change, acute toxic metabolic encephalopathy, possible seizures This is a 70-year-old female with history of multiple medical problems including hypertension, history of COVID-19 pneumonia requiring intubation and mechanical ventilation for 6 weeks back in March, history of hypothyroidism, chronic anemia, patient was brought into the ER on 10/07/2020, mostly with symptoms of altered mental status. found patient in the morning on the ground, flailing of upper extremities, he is back in bed, and came back around 12:30 PM were and she was noted to be on the ground, not responding, and she was noted to be flailing all extremities confused, hence she was brought into the ER. Workup was basically nondiagnostic. Patient had positive drug screen for tricyclics antidepressants, and she also had positive drug screen for marijuana. Otherwise her drug screen was negative and her coronavirus screening was also negative. CT of the head showed age-related atrophic changes and chronic small vessel ischemic change without acute intracranial process. CT of the cervical spine was negative. EKG was unremarkable. Chest x-ray showed patchy airspace disease bilaterally with prominence of the interstitium and possibly a small left pleural effusion. CBC showed a bit of leukocytosis. Otherwise unremarkable. Hemoglobin was low 7.8 and this is normal for the patient. Patient does have chronic iron deficiency anemia. While in the ER, patient received 1 mg of Ativan. Patient was admitted to the regular medical floor, although the ER physician raises the concern about the patient's mental status and confusion he even raise the concern about possible inability to protect her airways. And he discussed this with the primary care physician and they both decided not to reintubate the patient. Patient arrived to the medical floor, and the nurses were quite concerned about the patient's overall mental status and the fact that the patient was unable to protect her airways. ABG was done, and I was made aware of the ABG reflecting mostly a picture of metabolic acidosis. I recommended immediate transfer to ICU and intubation mostly to protect her airways. Patient was intubated she is still on mechanical ventilation with assist control rate of 16, volume 400 FiO2 of 30% PEEP of 5. ABG today showed a pO2 of 144 pCO2 of 31 pH of 7.39. Patient is on propofol at 50 mcg/kg/m she is also on bicarb drip at 50 mL per hour. Patient is arousable I discontinued her propofol, she seems to be answering appropriately. And following instructions appropriately. Neurology is planning EEG, her blood pressure was noted to be extremely elevated and I recommended clevidipine drip. I will likely proceed to extubating the patient in the next hour or so. Follow-up chest x-ray showed improvement in her interstitial findings, nonetheless I recommended antibiotics for presumptive aspiration on this patient. Reevaluated today on 10/09/2020, patient was extubated yesterday, tolerated the extubation well. She is on 2 L nasal cannula with O2 sat sugars of 100%. Chest x-ray is showing interstitial edema, underlying infiltrate is not entirely ruled out. Patient did receive Lasix 40 mg IV push 1. She remains on antibiotics, empirically for possible aspiration. Her sodium bicarb will be discontinued today. Her electrolytes are normal. Labs were all reviewed. Chest x-ray was reviewed. I will transfer the patient out of the ICU to a regular medical floor today. CBC count is 8.5 hemoglobin is 7.5. Renal profile showed MS of 19 and creatinine 0.64. Patient is alert oriented, she does not recall what happened to her and how she ended up in the hospital. Objective - Vital Signs Vital signs: Vital Signs Temp 98.3 F 10/09/20 08:00 Pulse 89 10/09/20 09:00 Resp 12 10/09/20 09:00 BP 151/83 10/09/20 08:00 Pulse Ox 99 10/09/20 09:00 Intake & Output 10/08/20 10/09/20 10/09/20 18:59 06:59 18:59 Intake Total 967.831 994.267 570 Output Total 665 795 115 Balance 302.831 199.267 455 Weight 82.1 kg Intake: IV 600 600 450 Azithromycin 500 mg In 250 Sodium Chloride 0.9% 250 ml @ 250 mls/hr IVPB DAILY NONA Rx#:[id number] Dextrose 5% in Water 1, 600 600 150 000 ml @ 50 mls/hr IV . Q23H NONA with Sodium Bicarb (1 Meq/ml) 150 ml Rx#:[id number] cefTRIAXone 2 gm In 50 Sodium Chloride 0.9% 50 ml @ 100 mls/hr IVPB Q24HR NONA Rx#:[id number] Intake, IV Titration 57.831 44.267 Amount Clevidipine Butyrate 25 22.666 44.267 mg In Empty Bag 1 bag @ 1 MG/HR 2 mls/hr IV .Q24H NONA Rx#:[id number] propofoL 1,000 mg In 35.165 Empty Bag 1 bag @ Titrate IV .Q0M NONA Rx#: [id number] Oral 350 120 Blood Product 310 Rc As-1 Unit 310 [id number] Output: Urine 665 795 115 Other: Voiding Method Indwelling Catheter Indwelling Catheter Indwelling Catheter ABP, PAP, CO, CI - Last Documented Arterial Blood Pressure 141/69 - Exam Physical Exam: Revealed a 70-year-old female , on 2 L nasal cannula, in no distress. Head: Atraumatic, normocephalic. HEENT:[Neck is supple.] [No neck masses.] [No thyromegaly.] [No JVD.] PERRLA, EOMI, anicteric. Chest: Symmetrical expansion, minimal crackles at the bases. Cardiac Exam: [Normal S1 and S2, no S3 gallop, no murmur.] Abdomen: [Soft, nontender, no megaly, no rebound, no guarding, normal bowel sounds.] Extremities: No clubbing edema or cyanosis, good pulses bilaterally. Neurological Exam: Alert and oriented 3, no gross focal deficits. Psychiatric: Normal mood, affect and normal mental status examination. Skin: No rashes. Musculoskeletal: No deformities and no limitation in range of motion. - Labs CBC & Chem 7: 10/09/20 04:10 10/09/20 04:10 Labs: Abnormal Lab Results - Last 24 Hours (Table) 10/08/20 10/08/20 10/09/20 Range/Units 09:30 17:00 04:10 WBC 11.8 H (3.8-10.6) k/uL RBC 3.11 L 3.02 L (3.80-5.40) m/uL Hgb 7.5 L 7.5 L (11.4-16.0) gm/dL Hct 24.5 L 23.6 L (34.0-46.0) % MCV 78.9 L 78.1 L (80.0-100.0) fL MCH 24.1 L 24.7 L (25.0-35.0) pg MCHC 30.5 L (31.0-37.0) g/dL RDW 16.1 H 16.2 H (11.5-15.5) % Chloride (98-107) mmol/L BUN (7-17) mg/dL Glucose (74-99) mg/dL POC Glucose (mg/dL) (75-99) mg/dL Calcium (8.4-10.2) mg/dL Total Protein (6.3-8.2) g/dL Albumin (3.5-5.0) g/dL Crossmatch See Detail 10/09/20 10/09/20 Range/Units 04:10 06:15 WBC (3.8-10.6) k/uL RBC (3.80-5.40) m/uL Hgb (11.4-16.0) gm/dL Hct (34.0-46.0) % MCV (80.0-100.0) fL MCH (25.0-35.0) pg MCHC (31.0-37.0) g/dL RDW (11.5-15.5) % Chloride 113 H (98-107) mmol/L BUN 19 H (7-17) mg/dL Glucose 124 H (74-99) mg/dL POC Glucose (mg/dL) 156 H (75-99) mg/dL Calcium 8.0 L (8.4-10.2) mg/dL Total Protein 5.8 L (6.3-8.2) g/dL Albumin 3.0 L (3.5-5.0) g/dL Crossmatch Microbiology - Last 24 Hours (Table) 10/08/20 00:00 Gram Stain - Preliminary Sputum Sputum Culture - Preliminary 10/07/20 16:09 Blood Culture - Preliminary Blood No Growth after 24 hours Assessment and Plan Assessment: Impression: Acute episode of mental status change and involuntary movement, possible seizure, etiology is being investigated by neurology on the case. Positive drug screen for try cyclic antidepressant and marijuana. Possible drug overdose. Acute hypoxic respiratory failure secondary to above, patient was intubated mostly because of the inability to protect her airways. And this is mostly related to her mental status change and acute toxic metabolic encephalopathy. Again I strongly suspect seizure disorder. Patient was extubated on 10/08/2020. Acute on chronic iron deficiency anemia, patient receives iron transfusion every 8-12 weeks for the last 12 years. History of restless leg syndrome History of COVID-19 pneumonia History of hypothyroidism History of left total knee arthroplasty. History of depression Chronic interstitial infiltrates most likely secondary to previous history of COVID-19 infection, however possibility of aspiration pneumonia is not entirely ruled out. [place] to be less likely Hypertensive urgency. Recommendation: Patient was extubated yesterday, and I would likely transferred today out of the ICU to a regular medical floor. Continue Seizure precautions. Continue present supportive care measures. Continue antibiotics empirically. GI and DVT prophylaxis. diccontinue bicarb We'll continue to follow. Time with Patient: Less than 30
[2020-10-09 14:43] LABS: Hemoglobin A1C 7.2 % (4.0-6.0)
--- NOTE | 2020-10-09 15:55 | P.PN ---
Subjective Progress Note Date: 10/09/20 Patient was seen at bedside and she was extubated. Per the patient nurse she did not have any seizure-like activity. She was not on any antiplatelets or any sedation. She is back to her baseline and per the patient nurse the answering appropriately. I spoke with the ED attending that admitted the patient, he stated the patient was flailing all arms and had altered but no jerk in of any extremities nothing focal no gaze deviation no foaming around the mouth. He stated that she just seemed agitated and restless. EEG on 10/09/2020 is normal. There are no focal slowing, epileptiform discharges or seizure on the EEG. Patient hemoglobin A1c is 7.2 which is uncontrolled. Objective - Vital Signs Vital signs: Vital Signs Temp 98.6 F 10/09/20 12:00 Pulse 88 10/09/20 12:00 Resp 17 10/09/20 12:00 BP 136/72 10/09/20 12:00 Pulse Ox 95 10/09/20 12:00 Intake & Output 10/08/20 10/09/20 10/09/20 18:59 06:59 18:59 Intake Total 967.831 994.267 970 Output Total 559 026 2820 Balance 302.831 199.267 -1145 Weight 82.1 kg Intake: IV 600 600 450 Azithromycin 500 mg In 250 Sodium Chloride 0.9% 250 ml @ 250 mls/hr IVPB DAILY NONA Rx#:[id number] Dextrose 5% in Water 1, 600 600 150 000 ml @ 50 mls/hr IV . Q23H NONA with Sodium Bicarb (1 Meq/ml) 150 ml Rx#:[id number] cefTRIAXone 2 gm In 50 Sodium Chloride 0.9% 50 ml @ 100 mls/hr IVPB Q24HR NONA Rx#:[id number] Intake, IV Titration 57.831 44.267 Amount Clevidipine Butyrate 25 22.666 44.267 mg In Empty Bag 1 bag @ 1 MG/HR 2 mls/hr IV .Q24H NONA Rx#:[id number] propofoL 1,000 mg In 35.165 Empty Bag 1 bag @ Titrate IV .Q0M NONA Rx#: [id number] Oral 350 520 Blood Product 310 Rc As-1 Unit 310 [id number] Output: Urine 630 229 9507 Other: Voiding Method Indwelling Catheter Indwelling Catheter Indwelling Catheter # Bowel Movements 1 ABP, PAP, CO, CI - Last Documented Arterial Blood Pressure 141/69 - Exam GENERAL: The patient is lying in bed and is not in acute distress. NEUROLOGICAL: Higher mental function: The patient is awake, alert, oriented to self, place and time. Patient is following commands. No aphasia and no neglect. Cranial nerves: The pupils are round, equal and reactive to light and accommodation. Visual grant are full to confrontation throughout. Extraocular movement is intact no nystagmus is noted. Facial sensation is normal to touch throughout. The facial strength is normal throughout. Hearing is normal bilaterally to hand rub. Tongue is midline and moved [id number] without any difficulty. No dysarthria is noted. Shoulder shrug is normal bilaterally. Motor: Gait is deferred. The strength is 5 over 5 throughout. Normal tone and bulk. Cerebellum: Normal finger to nose bilaterally. Sensation: Sensation is normal to touch throughout. Reflexes (right/left): 2+ throughout. Plantars are downgoing bilaterally. - Labs CBC & Chem 7: 10/09/20 04:10 10/09/20 04:10 Labs: Abnormal Lab Results - Last 24 Hours (Table) 10/08/20 10/09/20 10/09/20 Range/Units 17:00 04:10 04:10 WBC 11.8 H (3.8-10.6) k/uL RBC 3.11 L 3.02 L (3.80-5.40) m/uL Hgb 7.5 L 7.5 L (11.4-16.0) gm/dL Hct 24.5 L 23.6 L (34.0-46.0) % MCV 78.9 L 78.1 L (80.0-100.0) fL MCH 24.1 L 24.7 L (25.0-35.0) pg MCHC 30.5 L (31.0-37.0) g/dL RDW 16.1 H 16.2 H (11.5-15.5) % Chloride (98-107) mmol/L BUN (7-17) mg/dL Glucose (74-99) mg/dL POC Glucose (mg/dL) (75-99) mg/dL Hemoglobin A1c 7.2 H (4.0-6.0) % Calcium (8.4-10.2) mg/dL Total Protein (6.3-8.2) g/dL Albumin (3.5-5.0) g/dL 10/09/20 10/09/20 Range/Units 04:10 06:15 WBC (3.8-10.6) k/uL RBC (3.80-5.40) m/uL Hgb (11.4-16.0) gm/dL Hct (34.0-46.0) % MCV (80.0-100.0) fL MCH (25.0-35.0) pg MCHC (31.0-37.0) g/dL RDW (11.5-15.5) % Chloride 113 H (98-107) mmol/L BUN 19 H (7-17) mg/dL Glucose 124 H (74-99) mg/dL POC Glucose (mg/dL) 156 H (75-99) mg/dL Hemoglobin A1c (4.0-6.0) % Calcium 8.0 L (8.4-10.2) mg/dL Total Protein 5.8 L (6.3-8.2) g/dL Albumin 3.0 L (3.5-5.0) g/dL Microbiology - Last 24 Hours (Table) 10/08/20 00:00 Gram Stain - Preliminary Sputum Sputum Culture - Preliminary 10/07/20 16:09 Blood Culture - Preliminary Blood No Growth after 24 hours Assessment and Plan Assessment: * Episode of unresponsiveness and reported involuntary movement. Encephalopathy of unknow. Posslibly toxic metabolic encephalopathy. Cannot totally rule out seizure (per ED attending she was altered but flailing all limbs and no jerking of extremities or gaze deviation). --mentation is back to baseline * Positive for tricyclic antidepressant and marijuana use on UDS screen * Episode of leukocytosis on presentation that resolved possibly reactive versus underlying infection. Does not seem like meningo-encephalitis. * Acute respiratory failure on ventilation. * Acute on chronic anemia * Cervical spondylosis which seems moderate to severe most significant at C4-C5 and C5-C6 * Restless leg syndrome * History of COVID 19 * Hypothyroidism * History of left knee replacement Plan: * EEG on 10/09/2020 is normal. There are no focal slowing, epileptiform discharges or seizure on the EEG. * Patient hemoglobin A1c is 7.2 which is uncontrolled. * Did not start the patient on antiepileptic drug since not totally conviced this is seizure. She has not had any seizure during her hospital stay and EEG did not reveal any seizure or epileptiform discharges concerning for seizure. * Ordered MRI Brain. * Continue neuro checks. * Will defer the rest of medical management to the primary and ICU team. The plan is discussed with the patient's nurse. Erik Shepherd MD Neuro-Hospitalist Time with Patient: Less than 30
--- NOTE | 2020-10-09 16:52 | MR ---
EXAMINATION TYPE: MR brain wo/w con DATE OF EXAM: 10/09/2020 COMPARISON: CT brain 10/07/2020 HISTORY: Black out, Possible seizure TECHNIQUE: Multiplanar, multisequence images of the brain and brainstem is performed without and with IV contras t, utilizing 7.5 mL intravenous Gadavist . FINDINGS: There is some motion on the exam. Diffusion weighted images demonstrate no evidence of a recent infarct or other diffusion abnormality. There is no extra-axial fluid collection. Extensive confluent and scattered hyperintensities prese nt within the subcortical, pericallosal and periventricular white matter on inversion recovery T2-ailyn ghted sequences, greater than 50 lesions are present. The ventricular system and cisternal spaces are normal in size and appearance. The brain volume is age appropriate, there is cortical atrophy. Padma ocampus shows a symmetric appearance Midline structures demonstrate normal morphology. The craniocervical junction appears within normal limits. Post contrast images demonstrate no abnormal enhancement. The dural venous sinuses appear pa tent. The visualized sinuses are remarkable for inflammatory change within the frontal sinus, ethmoid air cells and the globes are intact. IMPRESSION: Age-related changes of atrophy and probable chronic small vessel ischemia
[2020-10-09] MEDS: ACETAMINOPHEN TAB 325 MG TAB PO PRN (20:06)
[2020-10-10] MEDS: ACETAMINOPHEN TAB 325 MG TAB PO PRN (01:58)
[2020-10-10 05:46] VITALS: BP 150/76; PULSE 83; RESP 16; TEMP 97.4
--- NOTE | 2020-10-10 08:14 | P.DS ---
Providers Date of admission: 10/07/20 17:01 Attending physician: Cody Aleman Consults: 10/07/20 17:01 Consult Physician Urgent Consulting Provider: Erik Shepherd Consult Reason/Comments: Involuntary extremity movements Do you want consulting provider notified?: Yes 10/07/20 17:04 Consult Physician Urgent Consulting Provider: Jatin Kim Consult Reason/Comments: History of COVID, pneumonia Do you want consulting provider notified?: Yes 10/07/20 18:21 Consult Physician Urgent Consulting Provider: Jatin Kim Consult Reason/Comments: unresponsive with periods of apnea Do you want consulting provider notified?: Yes Primary care physician: Cody Aleman - Discharge Diagnosis(es) (1) Altered mental status Current Visit: Yes Status: Acute (2) Anemia Current Visit: Yes Status: Acute (3) Diphenhydramine overdose Current Visit: Yes Status: Acute (4) Fibromyalgia Current Visit: No Status: Acute (5) Symptomatic anemia Current Visit: No Status: Acute Priority: High Hospital Course: The patient is a 70-year-old white female with altered mental status. Working diagnosis of diphenhydramine overdose. The patient has been hydrated and stabilized. Multiple consultants were entertained including pulmonology and ne urology. The patient because of airway protection needed temporary intubation. The patient is now stable baseline and has an underlying history of chronic anemia. She received 1 unit of PRBC and is now stable. She is tolerating diet and back to her normal baseline. We will discharge when cleared by appropriate senior environmental consultant. We will recheck in about 3-5 days. Patient Condition at Discharge: Stable Plan - Discharge Summary New Discharge Prescriptions: New Azithromycin [Zithromax Tri-Ray (3 tabs)] 500 mg PO DAILY 3 Days #3 tab Continue lisinopriL [Zestril] 10 mg PO DAILY rOPINIRole HCL [Requip] 1 mg PO TID Levothyroxine Sodium 200 mcg PO DAILY Cyclobenzaprine [Flexeril] 10 mg PO TID PRN PRN Reason: Muscle Spasm Amitriptyline HCl [Elavil] 50 mg PO HS Omeprazole [PriLOSEC] 20 mg PO AC-BRKFST #90 cap hydrALAZINE HCL [Apresoline] 75 mg PO TID tab Zolpidem [Ambien] 5 mg PO HS PRN PRN Reason: Insomnia Pregabalin [Lyrica] See Taper PO DIRECTED Discharge Medication List lisinopriL [Zestril] 10 mg PO DAILY 08/12/16 [History] Amitriptyline HCl [Elavil] 50 mg PO HS 03/10/20 [History] Cyclobenzaprine [Flexeril] 10 mg PO TID PRN 03/10/20 [History] Levothyroxine Sodium 200 mcg PO DAILY 03/10/20 [History] rOPINIRole HCL [Requip] 1 mg PO TID 03/10/20 [History] Omeprazole [PriLOSEC] 20 mg PO AC-BRKFST #90 cap 03/11/20 [Rx] hydrALAZINE HCL [Apresoline] 75 mg PO TID tab 05/01/20 [Rx] Pregabalin [Lyrica] See Taper PO DIRECTED 10/07/20 [History] Zolpidem [Ambien] 5 mg PO HS PRN 10/07/20 [History] Azithromycin [Zithromax Tri-Ray (3 tabs)] 500 mg PO DAILY 3 Days #3 tab 10/10/20 [Rx] Follow up Appointment(s)/Referral(s): Cody Aleman MD [Primary Care Provider] - 3 Days Patient Instructions/Handouts: Seizure/Epilepsy Discharge Instructions & Follow-Up
[2020-10-10] MEDS: AZITHROMYCIN 500 MG in SODIUM CHLORIDE 0.9% 250 ML IVPB SCH (09:27)
[2020-10-10] MEDS: ENOXAPARIN 40 MG/0.4 ML SYRINGE SQ SCH (09:55)
[2020-10-10] MEDS: PANTOPRAZOLE 40 MG/10 ML VIAL IVP SCH (09:55)
[2020-10-10] MEDS: SODIUM CHLORIDE 0.9% 1,000 ML IV SCH (10:58)
--- NOTE | 2020-10-10 11:09 | P.PN ---
Subjective Progress Note Date: 10/10/20 Principal diagnosis: Acute mental status change, acute toxic metabolic encephalopathy, possible aspiration pneumonia This is a 70-year-old female with history of multiple medical problems including hypertension, history of COVID-19 pneumonia requiring intubation and mechanical ventilation for 6 weeks back in March, history of hypothyroidism, chronic anemia, patient was brought into the ER on 10/07/2020, mostly with symptoms of altered mental status. found patient in the morning on the ground, flailing of upper extremities, he is back in bed, and came back around 12:30 PM were and she was noted to be on the ground, not responding, and she was noted to be flailing all extremities confused, hence she was brought into the ER. Workup was basically nondiagnostic. Patient had positive drug screen for tricyclics antidepressants, and she also had positive drug screen for marijuana. Otherwise her drug screen was negative and her coronavirus screening was also negative. CT of the head showed age-related atrophic changes and chronic small vessel ischemic change without acute intracranial process. CT of the cervical spine was negative. EKG was unremarkable. Chest x-ray showed patchy airspace disease bilaterally with prominence of the interstitium and possibly a small left pleural effusion. CBC showed a bit of leukocytosis. Otherwise unremarkable. Hemoglobin was low 7.8 and this is normal for the patient. Patient does have chronic iron deficiency anemia. While in the ER, patient received 1 mg of Ativan. Patient was admitted to the regular medical floor, although the ER physician raises the concern about the patient's mental status and confusion he even raise the concern about possible inability to protect her airways. And he discussed this with the primary care physician and they both decided not to reintubate the patient. Patient arrived to the medical floor, and the nurses were quite concerned about the patient's overall mental status and the fact that the patient was unable to protect her airways. ABG was done, and I was made aw are of the ABG reflecting mostly a picture of metabolic acidosis. I recommended immediate transfer to ICU and intubation mostly to protect her airways. Patient was intubated she is still on mechanical ventilation with assist control rate of 16, volume 400 FiO2 of 30% PEEP of 5. ABG today showed a pO2 of 144 pCO2 of 31 pH of 7.39. Patient is on propofol at 50 mcg/kg/m she is also on bicarb drip at 50 mL per hour. Patient is arousable I discontinued her propofol, she seems to be answering appropriately. And following instructions appropriately. Neurology is planning EEG, her blood pressure was noted to be extremely elevated and I recommended clevidipine drip. I will likely proceed to extubating the patient in the next hour or so. Follow-up chest x-ray showed improvement in her interstitial findings, nonetheless I recommended antibiotics for presumptive aspiration on this patient. Reevaluated today on 10/09/2020, patient was extubated yesterday, tolerated the extubation well. She is on 2 L nasal cannula with O2 sat sugars of 100%. Chest x-ray is showing interstitial edema, underlying infiltrate is not entirely ruled out. Patient did receive Lasix 40 mg IV push 1. She remains on antibiotics, empirically for possible aspiration. Her sodium bicarb will be discontinued to day. Her electrolytes are normal. Labs were all reviewed. Chest x-ray was reviewed. I will transfer the patient out of the ICU to a regular medical floor today. CBC count is 8.5 hemoglobin is 7.5. Renal profile showed MO of 19 and creatinine 0.64. Patient is alert oriented, she does not recall what happened to her and how she ended up in the hospital. On 10/10/2020 patient seen in follow-up on medical surgical floor, she is awake and alert, oriented 3, no altered mentation, she is completely back to her baseline, denies any shortness of breath denies any cough or congestion, no fever or chills. Patient remains on a combination of azithromycin and Rocephin, her follow-up chest x-ray yesterday showed patchy airspace disease bilaterally with prominence of interstitium. Patient did receive 1 dose of Lasix yesterday, she denies any pulmonary complaints today, no complaints of chest discomfort, no worsening dyspnea, room air pulse ox is 93-94%. MRI of the brain has been completed showing age-related changes of atrophy and probable chronic small vessel ischemia. EEG showed no evidence of seizures. Objective - Vital Signs Vital signs: Vital Signs Temp 97.4 F L 10/10/20 05:00 Pulse 83 10/10/20 05:00 Resp 16 10/10/20 05:00 BP 150/76 10/10/20 05:00 Pulse Ox 92 L 10/10/20 05:00 Intake & Output 10/09/20 10/10/2021 18:59 06:59 18:59 Intake Total 1450 590 Output Total 3215 Balance -1765 590 Intake: IV 450 Azithromycin 500 mg In 250 Sodium Chloride 0.9% 250 ml @ 250 mls/hr IVPB DAILY NONA Rx#:[id number] Dextrose 5% in Water 1, 150 000 ml @ 50 mls/hr IV . Q23H NONA with Sodium Bicarb (1 Meq/ml) 150 ml Rx#:[id number] cefTRIAXone 2 gm In 50 Sodium Chloride 0.9% 50 ml @ 100 mls/hr IVPB Q24HR NONA Rx#:[id number] Oral 1000 590 Output: Urine 3215 Other: Voiding Method Indwelling Catheter Toilet Toilet # Bowel Movements 1 ABP, PAP, CO, CI - Last Documented Arterial Blood Pressure 141/69 - Exam GENERAL EXAM: Alert, very pleasant, 70-year-old white female, on room air, with a pulse ox of 94% comfortable in no apparent distress. HEAD: Normocephalic/atraumatic. EYES: Normal reaction of pupils, equal size. Conjunctiva pink, sclera white. NOSE: Clear with pink turbinates. THROAT: No erythema or exudates. NECK: No masses, no JVD, no thyroid enlargement, no adenopathy. CHEST: No chest wall deformity. Symmetrical expansion. LUNGS: Equal air entry with no crackles, wheeze, rhonchi or dullness. CVS: Regular rate and rhythm, normal S1 and S2, no gallops, no murmurs, no rubs ABDOMEN: Soft, nontender. No hepatosplenomegaly, normal bowel sounds, no guarding or rigidity. EXTREMITIES: No clubbing, no edema, no cyanosis, 2+ pulses and upper and lower extremities. MUSCULOSKELETAL: Muscle strength and tone normal. SPINE: No scoliosis or deformity SKIN: No rashes CENTRAL NERVOUS SYSTEM: Alert and oriented -3. No focal deficits, tone is normal in all 4 extremities. PSYCHIATRIC: Alert and oriented -3. Appropriate affect. Intact judgment and insight. - Labs CBC & Chem 7: 10/09/20 04:10 10/09/20 04:10 Labs: Abnormal Lab Results - Last 24 Hours (Table) 10/09/20 Range/Units 04:10 Hemoglobin A1c 7.2 H (4.0-6.0) % Microbiology - Last 24 Hours (Table) 10/08/20 00:00 Gram Stain - Final Sputum Sputum Culture - Final 10/07/20 16:09 Blood Culture - Preliminary Blood No Growth after 48 hours Assessment and Plan Plan: Assessment: Acute episode of mental status change and involuntary movement, simple seizure has been ruled out, EEG was negative, MRI of the brain showed age-related changes of atrophy and probable chronic small vessel ischemia Positive drug screen for try cyclic antidepressant and marijuana. Possible drug overdose. Acute hypoxic respiratory failure secondary to above, patient was intubated mostly because of the inability to protect her airways. And this is mostly related to her mental status change and acute toxic metabolic encephalopathy. Again I strongly suspect seizure disorder. Patient was extubated on 10/08/2020. Acute on chronic iron deficiency anemia, patient receives iron transfusion every 8-12 weeks for the last 12 years. History of restless leg syndrome History of COVID-19 pneumonia History of hypothyroidism History of left total knee arthroplasty. History of depression Chronic interstitial infiltrates most likely secondary to previous history of COVID-19 infection, however possibility of aspiration pneumonia is not entirely ruled out. [place] to be less likely Hypertensive urgency, improved Plan: Patient has been stable clinically No pulmonary complaints No fever or chills, no worsening shortness of breath, no cough or chest discomfort Clear for discharge from pulmonary perspective Discharge antibiotic will be switched to Levaquin 750 mg for 7 more days We would like to see the patient in follow-up in the pulmonary clinic with Dr. Cortez in 7-10 days I performed a history & physical examination of the patient and discussed their management with my nurse practitioner, Stefanie Barraza. I reviewed the nurse practitioner's note and agree with the documented findings and plan of care. Lung sounds are positive for diminished at the bases. The findings and the impression was discussed with the patient. I attest to the documentation by the nurse practitioner. Time with Patient: Less than 30
== END 2020-10-10 12:13 | disposition home or self-care (01) | DRG 917 ==
LOC: EC 13:11 → 3SCARD 17:01 → 2SICU 19:18 → 5NMEDONC 10-10 00:50
PROVIDERS: ADMIT Family Medicine; ATTEND Family Medicine
PROC: 0BH17EZ Insertion of Endotracheal Airway into Trachea, Via Natural or Artificial Opening (ICD-10-PCS; principal; 2020-10-08)
PROC: 5A1935Z Respiratory Ventilation, Less than 24 Consecutive Hours (ICD-10-PCS; principal; 2020-10-08)
PROC: 30233N1 Transfusion of Nonautologous Red Blood Cells into Peripheral Vein, Percutaneous Approach (ICD-10-PCS; principal; 2020-10-08)
DX: T45.0X1A Poisoning by antiallergic and antiemetic drugs, accidental (unintentional), initial encounter (principal); J96.01 Acute respiratory failure with hypoxia; G92 Toxic encephalopathy; E87.2 Acidosis; I45.2 Bifascicular block; J90 Pleural effusion, not elsewhere classified; D50.9 Iron deficiency anemia, unspecified; E03.9 Hypothyroidism, unspecified; G25.81 Restless legs syndrome; I10 Essential (primary) hypertension; M47.812 Spondylosis without myelopathy or radiculopathy, cervical region; M79.7 Fibromyalgia; R56.9 Unspecified convulsions; Z79.890 Hormone replacement therapy; Z79.899 Other long term (current) drug therapy; Z86.16 Personal history of COVID-19; Z20.822 Contact with and (suspected) exposure to COVID-19; Z87.01 Personal history of pneumonia (recurrent); Z87.891 Personal history of nicotine dependence; Z90.710 Acquired absence of both cervix and uterus; Z96.652 Presence of left artificial knee joint; Z88.5 Allergy status to narcotic agent; Z88.2 Allergy status to sulfonamides; Z88.8 Allergy status to other drugs, medicaments and biological substances; Z98.890 Other specified postprocedural states
CPT/HCPCS: 36415; 36600; 70450; 70496; 70498; 70553; 71045; 71046; 72125; 80053; 80143; 80179; 80306; 80320; 81001; 82140; 82805; 83036; 83605; 84132; 84484; 85025; 85027; 85610; 85730; 86850; 86900; 86901; 86920; 87040; 87070; 87205; 87635; 93005; 94002; 94003; 95819; 96361; 96374; 96375; 99285

== ENCOUNTER → 2020-10-17 | Outpatient (CLI) | payer MEDICARE | LOC: NEUROMAIN 07:03 | PROVIDERS: ATTEND Student in an Organized Health Care Education/Training Program | DX: G40.89 Other seizures (principal); Z88.0 Allergy status to penicillin; Z88.2 Allergy status to sulfonamides; Z88.6 Allergy status to analgesic agent | CPT/HCPCS: 95713 ==

== ENCOUNTER 2021-01-28 06:04 | Emergency (ER) | payer MEDICARE ==
[2021-01-28 06:12] VITALS: BP 133/72; PULSE 94; RESP 16; TEMP 98.1
[2021-01-28] MEDS ORDERED: KETOROLAC 15 MG/ML 1 ML VIAL IM STA (06:25)
[2021-01-28] MEDS ORDERED: ORPHENADRINE 30 MG/ML 2 ML VIAL IM STA (06:25)
--- NOTE | 2021-01-28 06:53 | ED ---
Back Pain HPI - General Chief Complaint: Back Pain/Injury Stated Complaint: Fall Time Seen by Provider: 01/28/21 06:24 Source: patient, RN notes reviewed Limitations: no limitations - History of Present Illness Initial Comments: Patient is a 70-year-old female that presents to emergency room complaining of right low back pain. She notes that she got over the bathroom this morning sat on the edge for bed dozed off slightly slipped out of bed and landed on her hardwood floors. She notes that she did scrape her back along a metal box beside her bed. She notes she is up-to-date on her tetanus. Patient notes that she does take Flexeril at home but has not filled that medication in a while. She notes that she feels like she is having a muscle spasm of the right low back. She denied any radicular symptoms, saddle anesthesia, bladder or bowel incontinence or retention. She denied any chest pain shortness of breath headache nausea vomiting diarrhea constipation fever fatigue chills. - Related Data Home Medications Medication Instructions Recorded Confirmed lisinopriL [Zestril] 10 mg PO DAILY 08/12/16 11/10/20 Amitriptyline HCl [Elavil] 50 mg PO HS 03/10/20 11/10/20 Cyclobenzaprine [Flexeril] 10 mg PO TID PRN 03/10/20 11/10/20 Levothyroxine Sodium 200 mcg PO DAILY 03/10/20 11/10/20 rOPINIRole HCL [Requip] 1 mg PO TID 03/10/20 11/10/20 Pregabalin [Lyrica] See Taper PO DIRECTED 10/07/20 11/10/20 Previous Rx's Medication Instructions Recorded hydrALAZINE HCL [Apresoline] 75 mg PO TID tab 05/01/20 Cyclobenzaprine HCl 10 mg PO TID 10 Days #30 tab 01/28/21 Allergies Allergy/AdvReac Type Severity Reaction Status Date / Time meperidine HCl [From Demerol] Allergy Rash/Hives Verified 01/28/21 06:09 Penicillins Allergy Rash/Hives Verified 01/28/21 06:09 Sulfa (Sulfonamide Allergy Rash/Hives Verified 01/28/21 06:09 Antibiotics) Review of Systems ROS Statement: Those systems with pertinent positive or pertinent negative responses have been documented in the HPI. ROS Other: All systems not noted in ROS Statement are negative. Past Medical History Past Medical History: Hypertension, Thyroid Disorder Additional Past Medical History / Comment(s): chronic ANEMIA- pt gets iron trans. every 8-12 weeks for over 12 years. Pt has a hx of a sm ulcer History of Any Multi-Drug Resistant Organisms: VRE Date of last positivie culture/infection: 04/12/20 VRE MDRO Source:: Urine Past Surgical History: Hysterectomy, Joint Replacement, Orthopedic Surgery Additional Past Surgical History / Comment(s): LEFT KNEE ARTHROSCOPIC, carpal tunnel, left knee replacement, laser eye surgery Past Anesthesia/Blood Transfusion Reactions: No Reported Reaction Past Psychological History: No Psychological Hx Reported Smoking Status: Former smoker Past Alcohol Use History: None Reported Past Drug Use History: None Reported - Past Family History Mother Family Medical History: No Reported History General Exam Limitations: no limitations General appearance: alert, in no apparent distress Head exam: Present: atraumatic, normocephalic, normal inspection Eye exam: Present: normal appearance, PERRL, EOMI. Absent: scleral icterus, conjunctival injection, periorbital swelling Neck exam: Present: normal inspection Respiratory exam: Present: normal lung sounds bilaterally. Absent: respiratory distress, wheezes, rales, rhonchi, stridor Cardiovascular Exam: Present: regular rate, normal rhythm, normal heart sounds. Absent: systolic murmur, diastolic murmur, rubs, gallop, clicks GI/Abdominal exam: Present: soft, normal bowel sounds. Absent: distended, tenderness, guarding, rebound, rigid Extremities exam: Present: normal inspection, full ROM, normal capillary refill. Absent: tenderness, pedal edema, joint swelling, calf tenderness Back exam: Present: normal inspection, muscle spasm (Right low back) Neurological exam: Present: alert, oriented X3 Psychiatric exam: Present: normal affect, normal mood Skin exam: Present: warm, dry, intact, normal color. Absent: rash Course Vital Signs 01/28/21 06:09 Temperature 98.1 F Pulse Rate 94 Respiratory 16 Rate Blood Pressure 133/72 O2 Sat by Pulse 98 Oximetry Medical Decision Making - Medical Decision Making 70-year-old female complaining of right low back muscle spasms pain. X-ray lumbar spine, 15 mg Toradol, 40 mg of Norflex ordered. X-ray lumbar spine negative for any acute fracture dislocations. Patient will be sent muscle relaxers pharmacy. Case discussed with Dr. Negron, patient can discharge home with follow-up primary care. - Radiology Data Radiology results: report reviewed, image reviewed Lumbar spine x-ray: There is degenerative first-degree L4-L5 spondylolisthesis. No fracture seen. Disposition Clinical Impression: Back spasm, Lumbar back pain Disposition: HOME SELF-CARE Condition: Stable Instructions (If sedation given, give patient instructions): Acute Low Back Pain (ED) Additional Instructions: Please return to the Emergency Department if symptoms worsen or any other concerns. Follow-up with primary care 1-2 days. Take muscle relaxer as prescribed. Is patient prescribed a controlled substance at d/c from ED?: No Referrals: Cody Aleman MD [Primary Care Provider] - 1-2 days Time of Disposition: 07:07
--- NOTE | 2021-01-28 07:02 | XR ---
EXAMINATION TYPE: XR lumbar spine 2 or 3V DATE OF EXAM: 01/28/2021 COMPARISON: NONE HISTORY: Back pain TECHNIQUE: 3 views FINDINGS: There is 9 mm anterior subluxation of L4 in relation L5. There is disc space narrowing at L 4-5 and L5-S1. There is no compression fracture. Posterior elements are intact. Sacroiliac joints are intact. IMPRESSION: There is degenerative first-degree L4-5 spondylolisthesis. No fracture seen.
== END 2021-01-28 07:25 | disposition home or self-care (01) ==
LOC: EC 06:04
DX: M54.59 Other low back pain (principal); M62.830 Muscle spasm of back; I10 Essential (primary) hypertension; E07.9 Disorder of thyroid, unspecified; Z88.0 Allergy status to penicillin; Z88.2 Allergy status to sulfonamides; Z90.710 Acquired absence of both cervix and uterus; Z96.652 Presence of left artificial knee joint; Z87.891 Personal history of nicotine dependence
CPT/HCPCS: 99283 ×2; 96372 ×3; 72100; J2360; J1885

== ENCOUNTER 2021-03-09 02:16 | Emergency (ER) | payer MEDICARE ==
[2021-03-09 02:23] VITALS: BP 165/92; PULSE 113; RESP 18; TEMP 97.4
[2021-03-09] MEDS ORDERED: KETOROLAC 15 MG/ML 1 ML VIAL IM STA (02:45)
--- NOTE | 2021-03-09 02:49 | ED ---
Extremity Problem HPI - General Chief complaint: Extremity Problem,Nontraumatic Stated complaint: pain Time Seen by Provider: 03/09/21 02:20 Source: patient Mode of arrival: ambulatory Limitations: no limitations - History of Present Illness Initial comments: 's patient is 70-year-old woman she presents for evaluation of bilateral lower extremity pain. The patient states she has been having this pain for years. She states it is from the knees down to the feet bilaterally. It is burning and aching. She states that when he gets bad she usually sees her primary physician for a Toradol shot. She states that she couldn't wait for his office to open today so she comes here. Patient states this is similar to the usual exacerbations, no change today. No weakness or numbness. No change in bladder or bowel function. MD Complaint: extremity pain -: hour(s) Location: bilateral lower extremity History of Same: Yes -: Yes myalgia Quality: burning, aching Consistency: constant Improves with: nothing Worsens with: palpation Associated Symptoms: denies other symptoms - Related Data Home Medications Medication Instructions Recorded Confirmed lisinopriL [Zestril] 10 mg PO DAILY 08/12/16 11/10/20 Amitriptyline HCl [Elavil] 50 mg PO HS 03/10/20 11/10/20 Cyclobenzaprine [Flexeril] 10 mg PO TID PRN 03/10/20 11/10/20 Levothyroxine Sodium 200 mcg PO DAILY 03/10/20 11/10/20 rOPINIRole HCL [Requip] 1 mg PO TID 03/10/20 11/10/20 Pregabalin [Lyrica] See Taper PO DIRECTED 10/07/20 11/10/20 Previous Rx's Medication Instructions Recorded hydrALAZINE HCL [Apresoline] 75 mg PO TID tab 05/01/20 Cyclobenzaprine HCl 10 mg PO TID 10 Days #30 tab 01/28/21 Allergies Allergy/AdvReac Type Severity Reaction Status Date / Time meperidine HCl [From Demerol] Allergy Rash/Hives Verified 03/09/21 02:21 Penicillins Allergy Rash/Hives Verified 03/09/21 02:21 Sulfa (Sulfonamide Allergy Rash/Hives Verified 03/09/21 02:21 Antibiotics) Review of Systems ROS Statement: Those systems with pertinent positive or pertinent negative responses have been documented in the HPI. ROS Other: All systems not noted in ROS Statement are negative. Constitutional: Denies: fever, chills, weakness Respiratory: Denies: cough, dyspnea Cardiovascular: Denies: chest pain, edema Gastrointestinal: Denies: abdominal pain, vomiting, diarrhea, constipation Genitourinary: Denies: dysuria, frequency, hematuria Musculoskeletal: Reports: as per HPI, myalgia. Denies: back pain Skin: Denies: rash Neurological: Reports: paresthesias. Denies: headache, weakness, numbness, abnormal gait Past Medical History Past Medical History: Hypertension, Thyroid Disorder Additional Past Medical History / Comment(s): chronic ANEMIA- pt gets iron trans. every 8-12 weeks for over 12 years. 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 culture/infection: 04/12/20 VRE MDRO Source:: Urine Past Surgical History: Hysterectomy, Joint Replacement, Orthopedic Surgery Additional Past Surgical History / Comment(s): LEFT KNEE ARTHROSCOPIC, carpal tunnel, left knee replacement, laser eye surgery Past Anesthesia/Blood Transfusion Reactions: No Reported Reaction Past Psychological History: No Psychological Hx Reported Smoking Status: Former smoker Past Alcohol Use History: None Reported Past Drug Use History: None Reported - Past Family History Mother Family Medical History: No Reported History General Exam Limitations: no limitations General appearance: alert, in no apparent distress Head exam: Present: atraumatic, normocephalic Respiratory exam: Present: normal lung sounds bilaterally. Absent: respiratory distress, wheezes, rales, rhonchi, stridor Cardiovascular Exam: Present: regular rate, normal rhythm, normal heart sounds. Absent: systolic murmur, diastolic murmur, rubs, gallop Extremities exam: Present: normal inspection, full ROM, tenderness, normal capillary refill. Absent: pedal edema, calf tenderness Back exam: Absent: vertebral tenderness Neurological exam: Present: alert. Absent: motor sensory deficit Skin exam: Present: warm, dry, intact, normal color. Absent: rash Course Vital Signs 03/09/21 02:21 Temperature 97.4 F L Pulse Rate 113 H Respiratory 18 Rate Blood Pressure 165/92 O2 Sat by Pulse 97 Oximetry Disposition Clinical Impression: Leg pain, bilateral Disposition: HOME SELF-CARE Condition: Good Instructions (If sedation given, give patient instructions): Leg Pain (ED) Is patient prescribed a controlled substance at d/c from ED?: No Referrals: Cody Aleman MD [Primary Care Provider] - 1-2 days
[2021-03-09] MEDS ORDERED: KETOROLAC 30 MG/ML 1 ML VIAL IM STA (02:53)
== END 2021-03-09 03:25 | disposition home or self-care (01) ==
LOC: EC 02:16
DX: M79.661 Pain in right lower leg (principal); M79.662 Pain in left lower leg; R00.2 Palpitations; I10 Essential (primary) hypertension; E07.9 Disorder of thyroid, unspecified; Z87.891 Personal history of nicotine dependence; Z88.0 Allergy status to penicillin; Z88.2 Allergy status to sulfonamides; Z88.8 Allergy status to other drugs, medicaments and biological substances; Z79.899 Other long term (current) drug therapy; Z79.890 Hormone replacement therapy
CPT/HCPCS: 96372; 99284; J1885

== ENCOUNTER 2021-10-02 04:08 | Inpatient (IN) | payer MEDICARE ==
[2021-10-02 04:20] LABS: Glucose,Whole Blood 390 mg/dL (70-110)
[2021-10-02 04:39] LABS: Basophils # (A) 0.1 k/uL (0-0.2); Basophils % (A) 0 %; Eosinophils # (A) 0.1 k/uL (0-0.7); Eosinophils % (A) 1 %; HCT 41.4 % (34.0-46.0); HGB 13.3 gm/dL (11.4-16.0); Lymphocytes # (A) 0.9 k/uL (1.0-4.8); Lymphocytes % (A) 5 %; MCH 29.4 pg (25.0-35.0); MCHC 32.1 g/dL (31.0-37.0); MCV 91.6 fL (80.0-100.0); Mean Platelet Volume 8.7; Monocytes # (A) 0.8 k/uL (0-1.0); Monocytes % (A) 5 %; Neutrophils # (A) 14.4 k/uL (1.3-7.7); Neutrophils % (A) 88 %; Platelet Count 321 k/uL (150-450); RBC 4.52 m/uL (3.80-5.40); RDW 15.9 % (11.5-15.5); WBC 16.4 k/uL (3.8-10.6)
[2021-10-02 04:52] LABS: Albumin 4.2 g/dL (3.5-5.0); Calcium 9.2 mg/dL (8.4-10.2); Potassium 4.5 mmol/L (3.5-5.1); Total Bilirubin 0.3 mg/dL (0.2-1.3); Total Protein 7.3 g/dL (6.3-8.2)
[2021-10-02] MEDS ORDERED: ETOMIDATE 2 MG/ML 10 ML VIAL IVP STA (04:52)
[2021-10-02] MEDS ORDERED: SUCCINYLCHOLINE CHLORIDE VIAL 200 MG/10 ML VIAL IV ONE (04:52)
[2021-10-02] MEDS ORDERED: SODIUM CHLORIDE 0.9% 1,000 ML IV ONE ×3 (04:58→15:51)
--- NOTE | 2021-10-02 05:08 | ED ---
Altered Mental Status HPI - General Chief Complaint: Altered Mental Status Stated Complaint: AMS Time Seen by Provider: 10/02/21 04:29 Source: family (), EMS Mode of arrival: EMS Limitations: altered mental status - History of Present Illness Initial Comments: 's patient is 71-year-old woman brought by ambulance to have evaluation of shortness of breath and altered mental status. The patient's relates that she had awakened him from sleep tonight. The patient had fallen out of bed and then he tried to assist her to get back into the bed. He states that she seemed to be confused and he states she was attempting to draw deep breaths but didn't seem to be breathing adequately. He also notes that when she was on the bed she was kicking out and flailing on the bed. She was also very sweaty. He states that prior to going to bed had gone to dinner and things were Normal. MD Complaint: altered mental status -: minutes(s) Consistency of Symptoms: getting worse - Related Data Home Medications Medication Instructions Recorded Confirmed Amitriptyline HCl [Elavil] 50 mg PO HS 03/10/20 10/02/21 Levothyroxine Sodium 200 mcg PO DAILY 03/10/20 10/02/21 rOPINIRole HCL [Requip] 1 mg PO TID 03/10/20 10/02/21 Sertraline [Zoloft] 150 mg PO DAILY 10/02/21 10/02/21 Previous Rx's Medication Instructions Recorded Cyclobenzaprine HCl 10 mg PO TID 10 Days #30 tab 01/28/21 Aspirin 81 mg PO DAILY tab 10/07/21 Atorvastatin [Lipitor] 40 mg PO DAILY #30 tab 10/07/21 Chlorthalidone [Hygroton] 25 mg PO DAILY #30 tab 10/07/21 Clopidogrel [Plavix] 75 mg PO DAILY #30 tab 10/07/21 Famotidine [Pepcid] 20 mg PO BID #60 tab 10/07/21 Insulin Detemir (Levemir) [Levemir] 10 unit SQ DAILY@0700 #2 pen 10/07/21 Pen Needle, Diabetic [Ultra-Fine 1 needle SQ AC-BRKFST #100 each 10/07/21 Pen Needle 5mm 31G (BD)] amLODIPine [Norvasc] 5 mg PO BID #60 tab 10/07/21 carvediloL [Coreg] 6.25 mg PO AC-BID #60 tablet 10/07/21 lisinopriL [Zestril] 20 mg PO BID #60 tab 10/07/21 Allergies Allergy/AdvReac Type Severity Reaction Status Date / Time meperidine HCl [From Demerol] Allergy Rash/Hives Verified 10/02/21 07:51 Penicillins Allergy Rash/Hives Verified 10/02/21 07:51 Sulfa (Sulfonamide Allergy Rash/Hives Verified 10/02/21 07:51 Antibiotics) Review of Systems ROS Statement: Those systems with pertinent positive or pertinent negative responses have been documented in the HPI. ROS Other: All systems not noted in ROS Statement are negative. Limitations: ROS unobtainable due to patients medical condition Respiratory: Reports: dyspnea Psychiatric: Reports: anxiety Past Medical History Past Medical History: Diabetes Mellitus, Hypertension, Thyroid Disorder Additional Past Medical History / Comment(s): chronic ANEMIA- pt gets iron trans. every 8-12 weeks for over 12 years. 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 culture/infection: 04/12/20 VRE MDRO Source:: Urine Past Surgical History: Hysterectomy, Joint Replacement, Orthopedic Surgery Additional Past Surgical History / Comment(s): LEFT KNEE ARTHROSCOPIC, carpal tunnel, left knee replacement, laser eye surgery Past Anesthesia/Blood Transfusion Reactions: No Reported Reaction Past Psychological History: No Psychological Hx Reported Smoking Status: Former smoker - Past Family History Mother Family Medical History: No Reported History General Exam Limitations: no limitations General appearance: obtunded, in distress Head exam: Present: atraumatic, normocephalic Eye exam: Present: normal appearance, PERRL, EOMI. Absent: scleral icterus, conjunctival injection ENT exam: Present: mucous membranes dry Neck exam: Present: normal inspection. Absent: tenderness Respiratory exam: Present: respiratory distress (Tachypnea), accessory muscle use. Absent: wheezes, rales, rhonchi, stridor, decreased breath sounds, prolonged expiratory Cardiovascular Exam: Present: normal rhythm, tachycardia, normal heart sounds. Absent: systolic murmur, diastolic murmur, rubs, gallop GI/Abdominal exam: Present: soft. Absent: distended, tenderness, guarding, rebound, rigid Extremities exam: Present: normal inspection, normal capillary refill. Absent: pedal edema, calf tenderness Back exam: Present: normal inspection Neurological exam: Present: altered. Absent: motor sensory deficit Skin exam: Present: warm, diaphoretic, mottled. Absent: normal color, rash Course Vital Signs 10/02/21 10/02/21 10/02/21 04:09 04:29 05:00 Temperature 98.2 F Pulse Rate 123 H 122 H 121 H Respiratory 22 20 20 Rate Blood Pressure 202/109 168/93 O2 Sat by Pulse 92 L 97 96 Oximetry Fraction of Inspired Oxygen (FIO2) 10/02/21 10/02/21 10/02/21 05:01 05:15 05:45 Temperature Pulse Rate 118 H 111 H Respiratory 21 20 Rate Blood Pressure 186/102 120/99 O2 Sat by Pulse 95 97 Oximetry Fraction of 100 100 Inspired Oxygen (FIO2) 10/02/21 10/02/21 10/02/21 05:48 06:00 06:15 Temperature Pulse Rate 102 H 98 Respiratory 20 19 Rate Blood Pressure 131/87 120/75 O2 Sat by Pulse 97 97 Oximetry Fraction of 60 Inspired Oxygen (FIO2) 10/02/21 10/02/21 10/02/21 06:30 07:19 07:24 Temperature 98.1 F Pulse Rate 99 90 93 Respiratory 19 26 H Rate Blood Pressure 114/72 125/76 115/73 O2 Sat by Pulse 98 96 94 L Oximetry Fraction of Inspired Oxygen (FIO2) 10/02/21 10/02/21 10/02/21 07:25 07:48 08:00 Temperature 97.6 F Pulse Rate 87 85 Respiratory Rate Blood Pressure 132/80 132/80 O2 Sat by Pulse 96 95 Oximetry Fraction of 60 60 Inspired Oxygen (FIO2) 10/02/21 08:27 Temperature Pulse Rate 82 Respiratory 22 Rate Blood Pressure 133/74 O2 Sat by Pulse 95 Oximetry Fraction of Inspired Oxygen (FIO2) Procedures - Intubation Sedative: Etomidate Paralytic: Succinylcholine Laryngoscope: Howie Size: 3 ET Tube Size: 7.5 Tube Secured Depth (cm): 21 Tube Secured Location: teeth Tube Placement Confirmation: visualized tube passing through cords, equal breath sounds bilaterally, no breath sounds over epigastrium, confirmation by capnometry Patient Tolerated Procedure: well, no complications Intubation Complications: none Medical Decision Making - Medical Decision Making This patient is a 71-year-old woman brought by ambulance from home for altered mental status and respiratory distress. On arrival, patient's sats are low, she is markedly tachypneic and appears to be developing respiratory failure. Discussed case with patient's and will intubate for impending respiratory failure. The patient tolerated procedure well with no complications. Review of the medical record reveals that patient had a very similar presentation when she was brought to this department 10/08/2020. Patient had been observed flailing in bed with altered mental status and was brought here. No definite etiology was established at that time but the patient did recover. - Lab Data Result diagrams: 10/05/21 05:00 10/05/21 05:00 Lab Results 10/02/21 10/02/21 10/02/21 Range/Units 04:18 04:26 04:26 WBC 16.4 H (3.8-10.6) k/uL RBC 4.52 (3.80-5.40) m/uL Hgb 13.3 (11.4-16.0) gm/dL Hct 41.4 (34.0-46.0) % MCV 91.6 (80.0-100.0) fL MCH 29.4 (25.0-35.0) pg MCHC 32.1 (31.0-37.0) g/dL RDW 15.9 H (11.5-15.5) % Plt Count 321 (150-450) k/uL MPV 8.7 Neutrophils % 88 % Lymphocytes % 5 % Monocytes % 5 % Eosinophils % 1 % Basophils % 0 % Neutrophils # 14.4 H (1.3-7.7) k/uL Lymphocytes # 0.9 L (1.0-4.8) k/uL Monocytes # 0.8 (0-1.0) k/uL Eosinophils # 0.1 (0-0.7) k/uL Basophils # 0.1 (0-0.2) k/uL PT (9.0-12.0) sec INR (<1.2) APTT (22.0-30.0) sec D-Dimer (<0.60) mg/L FEU Sample Site ABG pH (7.35-7.45) ABG pCO2 (35-45) mmHg ABG pO2 (83-108) mmHg ABG HCO3 (21-25) mmol/L ABG Total CO2 (19-24) mmol/L ABG O2 Saturation (94-97) % ABG Base Excess mmol/L Elijah Test VBG pH (7.31-7.41) VBG pCO2 (37-51) mmHg VBG HCO3 (24-28) mmol/L FiO2 % Sodium 139 (137-145) mmol/L Potassium 4.5 (3.5-5.1) mmol/L Chloride 109 H (98-107) mmol/L Carbon Dioxide 20 L (22-30) mmol/L Anion Gap 10 mmol/L BUN 27 H (7-17) mg/dL Creatinine 1.30 H (0.52-1.04) mg/dL Est GFR (CKD-EPI)AfAm 48 (>60 ml/min/1.73 sqM) Est GFR (CKD-EPI)NonAf 41 (>60 ml/min/1.73 sqM) Glucose 390 H (74-99) mg/dL POC Glucose (mg/dL) 390 H (70-110) mg/dL POC Glu [employer] Engine Operator ID Vamsi Webb Estimated Ave Glu mg/dL Hemoglobin A1c (0.0-6.0) % Lactic Ac Sepsis Rflx Plasma Lactic Acid [place] (0.7-2.0) mmol/L Calcium 9.2 (8.4-10.2) mg/dL Total Bilirubin 0.3 (0.2-1.3) mg/dL AST 20 (14-36) U/L ALT 18 (4-34) U/L Alkaline Phosphatase 100 (38-126) U/L Troponin I (0.000-0.034) ng/mL NT-Pro-B Natriuret Pep pg/mL Total Protein 7.3 (6.3-8.2) g/dL Albumin 4.2 (3.5-5.0) g/dL Triglycerides (0.00-149.00) mg/dL Cholesterol (0.00-200.00) mg/dL LDL Cholesterol, Calc (0.0-131.0) mg/dL VLDL Cholesterol, Calc (5.00-40.00) mg/dL HDL Cholesterol (40.00-60.00) mg/dL Cholesterol/HDL Ratio Ratio Urine Color Urine Appearance (Clear) Urine pH (5.0-8.0) Ur Specific [place] (1.001-1.035) Urine Protein (Negative) Urine Glucose (UA) (Negative) Urine Ketones (Negative) Urine Blood (Negative) Urine Nitrite (Negative) Urine Bilirubin (Negative) Urine Urobilinogen (<2.0) mg/dL Ur Leukocyte Esterase (Negative) Acetone, Qual (Negative) 10/02/21 10/02/21 10/02/21 Range/Units 04:26 04:26 04:26 WBC (3.8-10.6) k/uL RBC (3.80-5.40) m/uL Hgb (11.4-16.0) gm/dL Hct (34.0-46.0) % MCV (80.0-100.0) fL MCH (25.0-35.0) pg MCHC (31.0-37.0) g/dL RDW (11.5-15.5) % Plt Count (150-450) k/uL MPV Neutrophils % % Lymphocytes % % Monocytes % % Eosinophils % % Basophils % % Neutrophils # (1.3-7.7) k/uL Lymphocytes # (1.0-4.8) k/uL Monocytes # (0-1.0) k/uL Eosinophils # (0-0.7) k/uL Basophils # (0-0.2) k/uL PT 10.0 (9.0-12.0) sec INR 0.9 (<1.2) APTT 21.9 L (22.0-30.0) sec D-Dimer 2.66 H (<0.60) mg/L FEU Sample Site ABG pH (7.35-7.45) ABG pCO2 (35-45) mmHg ABG pO2 (83-108) mmHg ABG HCO3 (21-25) mmol/L ABG Total CO2 (19-24) mmol/L ABG O2 Saturation (94-97) % ABG Base Excess mmol/L Elijah Test VBG pH 7.36 (7.31-7.41) VBG pCO2 35 L (37-51) mmHg VBG HCO3 20 L (24-28) mmol/L FiO2 % Sodium (137-145) mmol/L Potassium (3.5-5.1) mmol/L Chloride (98-107) mmol/L Carbon Dioxide (22-30) mmol/L Anion Gap mmol/L BUN (7-17) mg/dL Creatinine (0.52-1.04) mg/dL Est GFR (CKD-EPI)AfAm (>60 ml/min/1.73 sqM) Est GFR (CKD-EPI)NonAf (>60 ml/min/1.73 sqM) Glucose (74-99) mg/dL POC Glucose (mg/dL) (70-110) mg/dL POC Glu [employer] Engine Operator ID Estimated Ave Glu mg/dL Hemoglobin A1c (0.0-6.0) % Lactic Ac Sepsis Rflx Plasma Lactic Acid [place] 2.1 H* (0.7-2.0) mmol/L Calcium (8.4-10.2) mg/dL Total Bilirubin (0.2-1.3) mg/dL AST (14-36) U/L ALT (4-34) U/L Alkaline Phosphatase (38-126) U/L Troponin I (0.000-0.034) ng/mL NT-Pro-B Natriuret Pep pg/mL Total Protein (6.3-8.2) g/dL Albumin (3.5-5.0) g/dL Triglycerides (0.00-149.00) mg/dL Cholesterol (0.00-200.00) mg/dL LDL Cholesterol, Calc (0.0-131.0) mg/dL VLDL Cholesterol, Calc (5.00-40.00) mg/dL HDL Cholesterol (40.00-60.00) mg/dL Cholesterol/HDL Ratio Ratio Urine Color Urine Appearance (Clear) Urine pH (5.0-8.0) Ur Specific [place] (1.001-1.035) Urine Protein (Negative) Urine Glucose (UA) (Negative) Urine Ketones (Negative) Urine Blood (Negative) Urine Nitrite (Negative) Urine Bilirubin (Negative) Urine Urobilinogen (<2.0) mg/dL Ur Leukocyte Esterase (Negative) Acetone, Qual (Negative) 10/02/21 10/02/21 10/02/21 Range/Units 04:26 04:26 04:26 WBC (3.8-10.6) k/uL RBC (3.80-5.40) m/uL Hgb (11.4-16.0) gm/dL Hct (34.0-46.0) % MCV (80.0-100.0) fL MCH (25.0-35.0) pg MCHC (31.0-37.0) g/dL RDW (11.5-15.5) % Plt Count (150-450) k/uL MPV Neutrophils % % Lymphocytes % % Monocytes % % Eosinophils % % Basophils % % Neutrophils # (1.3-7.7) k/uL Lymphocytes # (1.0-4.8) k/uL Monocytes # (0-1.0) k/uL Eosinophils # (0-0.7) k/uL Basophils # (0-0.2) k/uL PT (9.0-12.0) sec INR (<1.2) APTT (22.0-30.0) sec D-Dimer (<0.60) mg/L FEU Sample Site ABG pH (7.35-7.45) ABG pCO2 (35-45) mmHg ABG pO2 (83-108) mmHg ABG HCO3 (21-25) mmol/L ABG Total CO2 (19-24) mmol/L ABG O2 Saturation (94-97) % ABG Base Excess mmol/L Elijah Test VBG pH (7.31-7.41) VBG pCO2 (37-51) mmHg VBG HCO3 (24-28) mmol/L FiO2 % Sodium (137-145) mmol/L Potassium (3.5-5.1) mmol/L Chloride (98-107) mmol/L Carbon Dioxide (22-30) mmol/L Anion Gap mmol/L BUN (7-17) mg/dL Creatinine (0.52-1.04) mg/dL Est GFR (CKD-EPI)AfAm (>60 ml/min/1.73 sqM) Est GFR (CKD-EPI)NonAf (>60 ml/min/1.73 sqM) Glucose (74-99) mg/dL POC Glucose (mg/dL) (70-110) mg/dL POC Glu [employer] Engine Operator ID Estimated Ave Glu mg/dL 212 Hemoglobin A1c 9.0 H (0.0-6.0) % Lactic Ac Sepsis Rflx Plasma Lactic Acid [place] (0.7-2.0) mmol/L Calcium (8.4-10.2) mg/dL Total Bilirubin (0.2-1.3) mg/dL AST (14-36) U/L ALT (4-34) U/L Alkaline Phosphatase (38-126) U/L Troponin I (0.000-0.034) ng/mL NT-Pro-B Natriuret Pep 114 pg/mL Total Protein (6.3-8.2) g/dL Albumin (3.5-5.0) g/dL Triglycerides 147.00 (0.00-149.00) mg/dL Cholesterol 232.00 H (0.00-200.00) mg/dL LDL Cholesterol, Calc 160.5 H (0.0-131.0) mg/dL VLDL Cholesterol, Calc 29.40 (5.00-40.00) mg/dL HDL Cholesterol 42.10 (40.00-60.00) mg/dL Cholesterol/HDL Ratio 5.51 Ratio Urine Color Urine Appearance (Clear) Urine pH (5.0-8.0) Ur Specific [place] (1.001-1.035) Urine Protein (Negative) Urine Glucose (UA) (Negative) Urine Ketones (Negative) Urine Blood (Negative) Urine Nitrite (Negative) Urine Bilirubin (Negative) Urine Urobilinogen (<2.0) mg/dL Ur Leukocyte Esterase (Negative) Acetone, Qual (Negative) 10/02/21 10/02/21 10/02/21 Range/Units 04:44 05:02 05:29 WBC (3.8-10.6) k/uL RBC (3.80-5.40) m/uL Hgb (11.4-16.0) gm/dL Hct (34.0-46.0) % MCV (80.0-100.0) fL MCH (25.0-35.0) pg MCHC (31.0-37.0) g/dL RDW (11.5-15.5) % Plt Count (150-450) k/uL MPV Neutrophils % % Lymphocytes % % Monocytes % % Eosinophils % % Basophils % % Neutrophils # (1.3-7.7) k/uL Lymphocytes # (1.0-4.8) k/uL Monocytes # (0-1.0) k/uL Eosinophils # (0-0.7) k/uL Basophils # (0-0.2) k/uL PT (9.0-12.0) sec INR (<1.2) APTT (22.0-30.0) sec D-Dimer (<0.60) mg/L FEU Sample Site ABG pH (7.35-7.45) ABG pCO2 (35-45) mmHg ABG pO2 (83-108) mmHg ABG HCO3 (21-25) mmol/L ABG Total CO2 (19-24) mmol/L ABG O2 Saturation (94-97) % ABG Base Excess mmol/L Elijah Test VBG pH (7.31-7.41) VBG pCO2 (37-51) mmHg VBG HCO3 (24-28) mmol/L FiO2 % Sodium (137-145) mmol/L Potassium (3.5-5.1) mmol/L Chloride (98-107) mmol/L Carbon Dioxide (22-30) mmol/L Anion Gap mmol/L BUN (7-17) mg/dL Creatinine (0.52-1.04) mg/dL Est GFR (CKD-EPI)AfAm (>60 ml/min/1.73 sqM) Est GFR (CKD-EPI)NonAf (>60 ml/min/1.73 sqM) Glucose (74-99) mg/dL POC Glucose (mg/dL) (70-110) mg/dL POC Glu [employer] Engine Operator ID Estimated Ave Glu mg/dL Hemoglobin A1c (0.0-6.0) % Lactic Ac Sepsis Rflx Y Plasma Lactic Acid [place] (0.7-2.0) mmol/L Calcium (8.4-10.2) mg/dL Total Bilirubin (0.2-1.3) mg/dL AST (14-36) U/L ALT (4-34) U/L Alkaline Phosphatase (38-126) U/L Troponin I 0.029 (0.000-0.034) ng/mL NT-Pro-B Natriuret Pep pg/mL Total Protein (6.3-8.2) g/dL Albumin (3.5-5.0) g/dL Triglycerides (0.00-149.00) mg/dL Cholesterol (0.00-200.00) mg/dL LDL Cholesterol, Calc (0.0-131.0) mg/dL VLDL Cholesterol, Calc (5.00-40.00) mg/dL HDL Cholesterol (40.00-60.00) mg/dL Cholesterol/HDL Ratio Ratio Urine Color Urine Appearance (Clear) Urine pH (5.0-8.0) Ur Specific [place] (1.001-1.035) Urine Protein (Negative) Urine Glucose (UA) (Negative) Urine Ketones (Negative) Urine Blood (Negative) Urine Nitrite (Negative) Urine Bilirubin (Negative) Urine Urobilinogen (<2.0) mg/dL Ur Leukocyte Esterase (Negative) Acetone, Qual Negative (Negative) 10/02/21 10/02/21 10/02/21 Range/Units 05:41 05:41 06:55 WBC (3.8-10.6) k/uL RBC (3.80-5.40) m/uL Hgb (11.4-16.0) gm/dL Hct (34.0-46.0) % MCV (80.0-100.0) fL MCH (25.0-35.0) pg MCHC (31.0-37.0) g/dL RDW (11.5-15.5) % Plt Count (150-450) k/uL MPV Neutrophils % % Lymphocytes % % Monocytes % % Eosinophils % % Basophils % % Neutrophils # (1.3-7.7) k/uL Lymphocytes # (1.0-4.8) k/uL Monocytes # (0-1.0) k/uL Eosinophils # (0-0.7) k/uL Basophils # (0-0.2) k/uL PT (9.0-12.0) sec INR (<1.2) APTT (22.0-30.0) sec D-Dimer (<0.60) mg/L FEU Sample Site rbrach ABG pH 7.20 L (7.35-7.45) ABG pCO2 52 H (35-45) mmHg ABG pO2 376 H (83-108) mmHg ABG HCO3 20 L (21-25) mmol/L ABG Total CO2 22 (19-24) mmol/L ABG O2 Saturation 99.9 H (94-97) % ABG Base Excess -7.8 mmol/L Elijah Test Yes VBG pH (7.31-7.41) VBG pCO2 (37-51) mmHg VBG HCO3 (24-28) mmol/L FiO2 100 % Sodium (137-145) mmol/L Potassium (3.5-5.1) mmol/L Chloride (98-107) mmol/L Carbon Dioxide (22-30) mmol/L Anion Gap mmol/L BUN (7-17) mg/dL Creatinine (0.52-1.04) mg/dL Est GFR (CKD-EPI)AfAm (>60 ml/min/1.73 sqM) Est GFR (CKD-EPI)NonAf (>60 ml/min/1.73 sqM) Glucose (74-99) mg/dL POC Glucose (mg/dL) (70-110) mg/dL POC Glu [employer] Engine Operator ID Estimated Ave Glu mg/dL Hemoglobin A1c (0.0-6.0) % Lactic Ac Sepsis Rflx Plasma Lactic Acid [place] 1.9 (0.7-2.0) mmol/L Calcium (8.4-10.2) mg/dL Total Bilirubin (0.2-1.3) mg/dL AST (14-36) U/L ALT (4-34) U/L Alkaline Phosphatase (38-126) U/L Troponin I (0.000-0.034) ng/mL NT-Pro-B Natriuret Pep pg/mL Total Protein (6.3-8.2) g/dL Albumin (3.5-5.0) g/dL Triglycerides (0.00-149.00) mg/dL Cholesterol (0.00-200.00) mg/dL LDL Cholesterol, Calc (0.0-131.0) mg/dL VLDL Cholesterol, Calc (5.00-40.00) mg/dL HDL Cholesterol (40.00-60.00) mg/dL Cholesterol/HDL Ratio Ratio Urine Color Yellow Urine Appearance Clear (Clear) Urine pH 5.5 (5.0-8.0) Ur Specific [place] >1.050 H (1.001-1.035) Urine Protein Trace H (Negative) Urine Glucose (UA) 3+ H (Negative) Urine Ketones Negative (Negative) Urine Blood Negative (Negative) Urine Nitrite Negative (Negative) Urine Bilirubin Negative (Negative) Urine Urobilinogen <2.0 (<2.0) mg/dL Ur Leukocyte Esterase Negative (Negative) Acetone, Qual (Negative) Critical Care Time Critical Care Time: Yes (30 minutes) Disposition Clinical Impression: Altered mental status, Acute respiratory distress syndrome Disposition: ADMITTED IP TO THIS HOSP Condition: Serious Is patient prescribed a controlled substance at d/c from ED?: No
[2021-10-02] MEDS ORDERED: LORazepam 2 MG/ML INJ IV STA (05:12)
[2021-10-02 05:20] LABS: VBG PH 7.36 (7.31-7.41)
[2021-10-02 05:43] LABS: ABG Base Excess -7.8 mmol/L; ABG HCO3 20 mmol/L (21-25); ABG Oxygen Saturation 99.9 % (94-97); ABG PCO2 52 mmHg (35-45); ABG PO2 376 mmHg (83-108); ABG TCO2 22 mmol/L (19-24); Allen Test Performed? Yes
[2021-10-02 06:01] LABS: INR 0.9 (<1.2); Partial Thromboplastin Time 21.9 sec (22.0-30.0)
--- NOTE | 2021-10-02 06:37 | XR ---
EXAM: XR Chest, 1 View CLINICAL HISTORY: ITS.REASON XR Reason: dyspnea TECHNIQUE: Frontal view of the chest. COMPARISON: 10/09/2020 FINDINGS: Lungs: Unremarkable. No consolidation. Pleural space: Unremarkable. No pneumothorax. Heart: Unremarkable. No cardiomegaly. Mediastinum: Endotracheal tube terminates 4.9 cm above the level of the allison. Nasogastric tube terminates in the lower hemithorax which may terminate in the distal esophagus or proximal stomach. Large hiatal hernia with stomach and the left inferior hemithorax. Bones/joints: Unremarkable. IMPRESSION: 1. Endotracheal tube terminates 4.9 cm above the level of the allison. 2. Nasogastric tube terminates in the lower hemithorax which may terminate in the distal esophagus or proximal stomach. Large hiatal hernia with stomach and the left inferior hemithorax.
--- NOTE | 2021-10-02 07:08 | XR ---
EXAM: XR Chest, 1 View CLINICAL HISTORY: ITS.REASON XR Reason: check intubation TECHNIQUE: Frontal view of the chest. COMPARISON: 10/02/2021 at 4:46am FINDINGS: Lungs: Unremarkable. No consolidation. Pleural space: Unremarkable. No pneumothorax. Heart: Unremarkable. No cardiomegaly. Mediastinum: Endotracheal tube terminates 4.6 cm above the level of the allison. Nasogastric tube terminates in the left inferior hemithorax, possibly at the gastroesophageal junction or proximal stomach. Large hiatal hernia. Bones/joints: Unremarkable. IMPRESSION: Endotracheal tube terminates 4.6 cm above the level of the allison. Nasogastric tube terminates in the left inferior hemithorax, possibly terminating at the gastroesophageal junction or proximal stomach. Large hiatal hernia.
[2021-10-02 07:18] LABS: Appearance,Urine Clear (Clear); Bilirubin,Urine Negative (Negative); Blood,Urine Negative (Negative); Color,Urine Yellow; Glucose,Urine (UA) 3+ (Negative); Ketones,Urine Negative (Negative); Leukocyte Esterase,Urine Negative (Negative); Nitrite,Urine Negative (Negative); PH, Urine 5.5 (5.0-8.0); Protein,Urine Trace (Negative); Urobilinogen,Urine <2.0 mg/dL (<2.0)
[2021-10-02 07:31] LABS: Specific Gravity,Urine >1.050 (1.001-1.035)
[2021-10-02] MEDS ORDERED: NALOXONE 0.4 MG/ML 1 ML VIAL IV PRN (07:40)
--- NOTE | 2021-10-02 08:43 | CT ---
EXAM: CT Head Without Intravenous Contrast CLINICAL HISTORY: ITS.REASON CT Reason: altered mental status TECHNIQUE: Axial computed tomography images of the head/brain without intravenous contrast. CTDI is 49.27 mGy and DLP is 1108.6 mGy-cm. This CT exam was performed using one or more of the following dose reduction techniques: automated exposure control, adjustment of the mA and/or kV according to patient size, and/or use of iterative reconstruction technique. COMPARISON: No relevant prior studies available. FINDINGS: Brain: No acute hemorrhage or mass effect. Mild diffuse atrophy. Periventricular patchy low densities, nonspecific although most likely chronic small vessel ischemic change. Focal hypodensity in the region of the right caudate head/anterior limb of the internal capsule, which may reflect lacunar infarct. This is probably subacute to chronic. Follow- up to exclude superimposed hyperacute infarct, as indicated. Ventricles: Unremarkable. No ventriculomegaly. Bones/joints: Unremarkable. No acute fracture. Soft tissues: Unremarkable. Sinuses: Mild mucosal thickening in the maxillary and ethmoid sinuses. Mastoid air cells: Unremarkable as visualized. No mastoid effusion. IMPRESSION: 1. No acute intracranial abnormality. 2. Finding in the right anterior limb of the internal capsule/caudate head, which may reflect subacute infarct. Follow-up MR to exclude hyperacute infarct as indicated. 3. Atrophy and chronic small vessel ischemic change <[id number]> Communications: 10/02/21 09:24 Verify Receipt Verified receipt with TYRONE Holland for Dr. Hay on 10/02 09:24 (-04:00)
--- NOTE | 2021-10-02 09:04 | CT ---
EXAM: CT Angiography Chest With Intravenous Contrast CLINICAL HISTORY: ITS.REASON CT Reason: Possible PE TECHNIQUE: Axial computed tomographic angiography images of the chest with intravenous contrast. CTDI is 20 mGy and DLP is 575.3 mGy-cm. This CT exam was performed using one or more of the following dose reduction techniques: automated exposure control, adjustment of the mA and/or kV according to patient size, and/or use of iterative reconstruction technique. MIP reconstructed images were created and reviewed. COMPARISON: No relevant prior studies available. FINDINGS: Artifacts: Respiratory motion artifact degrade image quality. Pulmonary arteries: No gross filling defects in the pulmonary arteries to suggest thrombus. Although suboptimally visualized secondary to motion. Aorta: Tortuous ectatic thoracic aorta. No thoracic aortic aneurysm. Lungs: Bibasilar atelectasis/airspace disease. No mass. Pleural space: Unremarkable. No significant effusion. No pneumothorax. Heart: Unremarkable. No cardiomegaly. No significant pericardial effusion. No evidence of RV dysfunction. Mediastinum: Large hiatal hernia containing portion of the stomach in the lower chest. Bones/joints: Degenerative changes in the spine. Mild compression deformity of the mid thoracic spine, probably chronic. Osteopenia. No dislocation. Soft tissues: Unremarkable. Lymph nodes: Unremarkable. No enlarged lymph nodes. Spleen: Heterogeneous spleen likely timing of the contrast bolus. IMPRESSION: 1. No gross evidence for pulmonary embolism. 2. No evidence for aortic dissection. 3. Large hiatal hernia with majority of the stomach in the lower chest. 4. Bibasilar atelectasis/airspace disease. 5. Respiratory motion degrade image quality.
[2021-10-02 09:14] LABS: Glucose,Whole Blood 250 mg/dL (70-110)
--- NOTE | 2021-10-02 10:10 | XR ---
EXAMINATION TYPE: XR chest 1V DATE OF EXAM: 10/02/2021 COMPARISON: 10/02/2021 HISTORY: SOB, Follow Up FINDINGS: Indwelling tubes and catheters are unchanged. Persistent basilar opacity left lower lobe. NG tube is noted approximately 4 cm above the level of th e left hemidiaphragm possibly terminating within a large hiatal hernia.. Stable appearance of the cardio-mediastinal structures at this time. Pleural effusion unchanged. IMPRESSION: 1. Stable portable chest. Clinical correlation and follow up until resolution is recommended.
[2021-10-02] MEDS ORDERED: CISATRACURIUM 2 MG/ML 5 ML VIAL IV ONE (10:24)
[2021-10-02] MEDS: FAMOTIDINE 20 MG/2 ML VIAL IV SCH (11:15)
[2021-10-02 11:35] LABS: Glucose,Whole Blood 211 mg/dL (70-110)
--- NOTE | 2021-10-02 11:37 | XR ---
EXAMINATION TYPE: XR chest 1V confirm line plcmt DATE OF EXAM: 10/02/2021 HISTORY: Shortness of breath. COMPARISON: 10/02/2021 TECHNIQUE: Single view of the chest is submitted. FINDINGS: NG tube remains unchanged in position. Endotracheal tube is stable as well. Right subclavian central venous line with its distal tip overlying the right atrium. No evidence for pneumothorax. Left basilar opacity persists. The heart is stable. Hilar and mediastinal structures are within normal limits. Degenerative changes are seen of the dorsal spine. IMPRESSION: 1. NG tube remains unchanged in position. Endotracheal tube is stable as well. Right subclavian cent ral venous line with its distal tip overlying the right atrium. No evidence for pneumothorax.
[2021-10-02] MEDS: INSULIN ASPART (NovoLOG) 100 UNIT/ML VIAL SQ SCH ×2 (11:49→19:05)
[2021-10-02] MEDS ORDERED: INSULIN ASPART (NovoLOG) 100 UNIT/ML VIAL SQ SCH (12:30)
--- NOTE | 2021-10-02 13:23 | P.CNPUL ---
History of Present Illness Consult date: 10/02/21 Requesting physician: Cody Aleman Reason for consult: other (Acute hypoxic respiratory failure and altered mental status) Chief complaint: Altered mental status History of present illness: This is a 71-year-old female admitted through the emergency room early this morning. Patient was admitted to the ICU because upon arrival to the ER, patient had to be intubated and mechanically ventilated. Apparently the relates that the patient awakened her data assistant hours and she fell out of bed, and he tried to assist her to get back to bed. However the patient was noted to be quite confused, and she was attempting to draw deep breaths but could not breathe adequately. He also noted that the patient was kicking out and flailing on the bed. Patient was also noted to be very sweaty. according to , few hours earlier, the patient was just fine when they ate supper in the evening. No history of drug abuse. No history of seizures. However the patient had a similar presentation in September of 2020, patient presented back then with similar presentation, and she required intubation and mechanical ventilation. Back then, the patient had extensive workup by neurology, and we felt back then that the patient may have overdosed on her antidepressant. Workup for seizures was negative. Workup for metabolic encephalopathy was negative. Patient was eventually extubated within one day, and she was discharged home on 10/10/2020. Patient was seen by neurology back then, and her EEG was negative for seizure activity. She had basically normal neurological workup. Including MRI of the brain patient is now on mechanical ventilation, she is on assist control rate of 16 and a considerable up to 20 times volume 400 FiO2 45% PEEP of 5. ABG earlier showed a pO2 of 376 pCO2 [address] of the brain questioned subacute CVA. Review of Systems ROS unobtainable: due to endotracheal tube, due to mental status Past Medical History Past Medical History: Diabetes Mellitus, Hypertension, Thyroid Disorder Additional Past Medical History / Comment(s): chronic ANEMIA- pt gets iron trans. every 8-12 weeks for over 12 years. 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 culture/infection: 04/12/20 VRE MDRO Source:: Urine Past Surgical History: Hysterectomy, Joint Replacement, Orthopedic Surgery Additional Past Surgical History / Comment(s): LEFT KNEE ARTHROSCOPIC, carpal tunnel, left knee replacement, laser eye surgery Past Anesthesia/Blood Transfusion Reactions: No Reported Reaction Past Psychological History: No Psychological Hx Reported Smoking Status: Former smoker - Past Family History Mother Family Medical History: No Reported History Medications and Allergies Home Medications Medication Instructions Recorded Confirmed Type lisinopriL [Zestril] 10 mg PO DAILY 08/12/16 10/02/21 History Amitriptyline HCl [Elavil] 50 mg PO HS 03/10/20 10/02/21 History Levothyroxine Sodium 200 mcg PO DAILY 03/10/20 10/02/21 History rOPINIRole HCL [Requip] 1 mg PO TID 03/10/20 10/02/21 History Cyclobenzaprine HCl 10 mg PO TID 10 Days #30 tab 01/28/21 10/02/21 Rx Sertraline [Zoloft] 150 mg PO DAILY 10/02/21 10/02/21 History Allergies Allergy/AdvReac Type Severity Reaction Status Date / Time meperidine HCl [From Demerol] Allergy Rash/Hives Verified 10/02/21 07:51 Penicillins Allergy Rash/Hives Verified 10/02/21 07:51 Sulfa (Sulfonamide Allergy Rash/Hives Verified 10/02/21 07:51 Antibiotics) Physical Exam Vitals: Vital Signs Temp Pulse Resp BP Pulse Ox FiO2 10/02/21 11:26 45 10/02/21 11:00 67 20 133/77 97 10/02/21 10:00 68 16 138/76 96 10/02/21 08:27 82 22 133/74 95 10/02/21 08:00 97.6 F 85 132/80 95 60 10/02/21 07:48 87 132/80 96 10/02/21 07:25 60 10/02/21 07:24 93 115/73 94 L 10/02/21 07:19 98.1 F 90 26 H 125/76 96 10/02/21 06:30 99 19 114/72 98 10/02/21 06:15 98 19 120/75 97 10/02/21 06:00 102 H 20 131/87 97 10/02/21 05:48 60 10/02/21 05:45 111 H 20 120/99 97 10/02/21 05:15 118 H 21 186/102 95 100 10/02/21 05:01 100 10/02/21 05:00 121 H 20 96 10/02/21 04:29 122 H 20 168/93 97 10/02/21 04:09 98.2 F 123 H 22 202/109 92 L Intake and Output 10/01/21 10/02/21 10/02/21 22:59 06:59 14:59 Intake Total 49.467 50.533 Output Total 160 Balance 49.467 -109.467 Intake: Intake, IV Titration 49.467 50.533 Amount propofoL 1,000 mg In 49.467 50.533 Empty Bag 1 bag @ 5 MCG/ KG/MIN 2.517 mls/hr IV . Q24H [facility] Rx#:[id number] Output: Urine 160 Other: Weight 83.915 kg 83.915 kg ABP, PAP, CO, CI - Last 8 Hours Arterial Blood Pressure 146/64 Physical Exam: Revealed a 70-year-old female intubated and mechanically vent ilated. Unresponsive to any stimuli. Head: Atraumatic, normocephalic. Endotracheal tube and orogastric tube are intact HEENT:[Neck is supple.] [No neck masses.] [No thyromegaly.] [No JVD.] PERRLA, EOMI, anicteric. Chest: [Electrical chest expansion, final crackles at the bases no rhonchi and no wheezes Cardiac Exam: [Normal S1 and S2, no S3 gallop, no murmur.] Abdomen: [Soft, nontender, no megaly, no rebound, no guarding, normal bowel sounds.] Extremities: No clubbing edema or cyanosis, good pulses bilaterally. Neurological Exam: Sedated, on propofol at 50 mcg/kg/m, could not fully assess mental status. Psychiatric: Could not assess. Skin: No rashes. Musculoskeletal: No deformities Results - Laboratory Findings CBC and BMP: 10/02/21 04:26 10/02/21 04:26 ABG ABG pH 7.20 (7.35-7.45) L 10/02/21 05:41 ABG pCO2 52 mmHg (35-45) H 10/02/21 05:41 ABG pO2 376 mmHg (83-108) H 10/02/21 05:41 ABG O2 Saturation 99.9 % (94-97) H 10/02/21 05:41 PT/INR, D-dimer PT 10.0 sec (9.0-12.0) 10/02/21 04:26 INR 0.9 (<1.2) 10/02/21 04:26 D-Dimer 2.66 mg/L FEU (<0.60) H 10/02/21 04:26 Abnormal lab findings: Abnormal Labs 10/02/21 10/02/21 10/02/21 04:18 04:26 04:26 WBC 16.4 H RDW 15.9 H Neutrophils # 14.4 H Lymphocytes # 0.9 L APTT D-Dimer ABG pH ABG pCO2 ABG pO2 ABG HCO3 ABG O2 Saturation VBG pCO2 VBG HCO3 Chloride 109 H Carbon Dioxide 20 L BUN 27 H Creatinine 1.30 H Glucose 390 H POC Glucose (mg/dL) 390 H Plasma Lactic Acid [place] Ur Specific [place] Urine Protein Urine Glucose (UA) 10/02/21 10/02/21 10/02/21 04:26 04:26 04:26 WBC RDW Neutrophils # Lymphocytes # APTT 21.9 L D-Dimer 2.66 H ABG pH ABG pCO2 ABG pO2 ABG HCO3 ABG O2 Saturation VBG pCO2 35 L VBG HCO3 20 L Chloride Carbon Dioxide BUN Creatinine Glucose POC Glucose (mg/dL) Plasma Lactic Acid [place] 2.1 H* Ur Specific [place] Urine Protein Urine Glucose (UA) 10/02/21 10/02/21 10/02/21 05:41 06:55 09:12 WBC RDW Neutrophils # Lymphocytes # APTT D-Dimer ABG pH 7.20 L ABG pCO2 52 H ABG pO2 376 H ABG HCO3 20 L ABG O2 Saturation 99.9 H VBG pCO2 VBG HCO3 Chloride Carbon Dioxide BUN Creatinine Glucose POC Glucose (mg/dL) 250 H Plasma Lactic Acid [place] Ur Specific [place] >1.050 H Urine Protein Trace H Urine Glucose (UA) 3+ H 10/02/21 11:33 WBC RDW Neutrophils # Lymphocytes # APTT D-Dimer ABG pH ABG pCO2 ABG pO2 ABG HCO3 ABG O2 Saturation VBG pCO2 VBG HCO3 Chloride Carbon Dioxide BUN Creatinine Glucose POC Glucose (mg/dL) 211 H Plasma Lactic Acid [place] Ur Specific [place] Urine Protein Urine Glucose (UA) - Diagnostic Findings CT scan - chest: image reviewed (CT of the chest showed no evidence of pulmonary embolism no aortic dissection, bibasilar atelectasis, and a large hiatal hernia in the lower chest.) Assessment and Plan Assessment: Acute episode of mental status change and involuntary movement, possible seizure, possible CVA possible tricyclics overdose. Clinically I strongly suspect seizure activity based on the clinical history from the . Acute hypoxic respiratory failure secondary to above chronic iron deficiency anemia History of restless leg syndrome History of COVID-19 pneumonia History of hypothyroidism History of left total knee arthroplasty. History of depression Recommendation: Neurology to evaluate on consultation and the patient should have workup for seizure activity. Seizure precautions. Workup for possible seizure is in progress Continue ventilatory support. Continue GI and DVT prophylaxis. EEG to evaluate for seizure activity. Drug screen was ordered and came back positive for tricyclics and positive for marijuana. Hemodynamic monitoring. Consider enteral feeding Will likely consider holding sedation later this afternoon and address possible weaning. Consider MRI of the brain Time with Patient: Greater than 30
--- NOTE | 2021-10-02 17:13 | OP ---
OPERATIVE REPORT OPERATIVE REPORT: Placement of a right subclavian triple-lumen catheter. PREOPERATIVE DIAGNOSIS: Acute hypoxic respiratory failure secondary to altered mental status and possible seizure. POSTOPERATIVE DIAGNOSIS: Acute hypoxic respiratory failure secondary to altered mental status and possible seizure. ANESTHESIA USED: Two mL of 1% lidocaine. PROCEDURE DESCRIPTION: The patient was placed in Trendelenburg position. The area of the right subclavian region was prepared in a sterile fashion and drapes were applied. The area below the right clavicle was locally anesthetized. Then, using the infraclavicular approach, the right subclavian vein was easily cannulated. A guidewire was placed. Area around the guidewire was dilated and the triple-lumen catheter was inserted over the guidewire, and the guidewire was removed. Good flow was noted in the 3 different ports. Chest x- ray noted no evidence of complications and adequate placement of the line. Line was secured using 3.0 silk suture. No complications. MMODL / IJN: [id number] /
--- NOTE | 2021-10-02 17:17 | OP ---
OPERATIVE REPORT OPERATIVE REPORT: Placement of right brachial arterial line. PREOPERATIVE DIAGNOSIS: Acute hypoxic respiratory failure. POSTOPERATIVE DIAGNOSIS: Acute hypoxic respiratory failure. ANESTHESIA USED: None deployed. PROCEDURE DESCRIPTION: The right brachial region was prepared in a sterile fashion and drapes were applied. The right brachial artery was palpated, cannulated. A guidewire was placed. A Cook's catheter was inserted over the guidewire. The guidewire was removed. Good blood flow, good waveform noted. No complications. Line was secured using 3.0 silk sutures. MMODL / IJN: [id number] /
[2021-10-02 18:01] LABS: Glucose,Whole Blood 78 mg/dL (70-110)
--- NOTE | 2021-10-02 19:20 | P.CNNES ---
History of Present Illness Consult date: 10/02/21 Requesting physician: Deacon Negron Reason for Consult: Altered mental status History of Present Illness: Patient is a 71-year-old female came to the hospital by ambulance early this morning at 4:08 AM. When EMS arrived, patient was in the bed, conscious but confused with GCS of 12. She is pale, diaphoretic and warm to touch with rapid respiration. Patient appeared to be very anxious and has mild tremors and troub le controlling the movement of her limbs. Patient's has mentioned that she has history of anemia and becomes hypoxic and acts this way. Patient was able to follow simple commands. Patient was able to ambulate with help. Patient was developing carpopedal spasms due to hyperventilation. Nonrebreather applied to help retain carbon dioxide. Blood glucose was 417. Patient has mentioned that she was taking steroids. Patient's vitals at the scene was blood pressure 161/89 pulse rate 130 respiration 32 saturation 94% on room air. Temperature 99.1. Patient received Versed 2 mg dose times twice in the ambulance. Patient's blood test shows obesity 16.4 hemoglobin 13.3 platelets 321. INR 0.9, PTT 21.9, d-dimer slightly elevated. Patient's ABG with pH of 7.20, pCO2 52, pO2 376, saturation 99.9. Blood test shows normal electrolytes, BUN 27 creatinine 1.30 lactic acid 2.1, hepatic panel normal troponin negative, acetone negative, UA negative. EKG shows sinus tachycardia with first-degree AV block. Chest x-ray showed endotracheal tube large hiatal hernia in the left hemithorax. CT head showed no acute process. Findings in the right anterior limb of the internal/caudate head which may reflect subacute infarct. Follow-up MR to exclude hyperacute infarct. Atrophy and chronic small vessel ischemic change. I reviewed CT head, agree with the findings. Per nursing report, patient apparently fell out of bed and landed hardly on the floor. Subsequently she was noted to have irregular involuntary movements, with kicking out and flailing on the bed, therefore EMS was called. Patient's has reported that prior to going to bed, she had dinner and things were normal. In the ER patient was noted to have respiratory distress. Her oxygen saturations were low. She was markedly tachypneic and developing respiratory failure. Patient was intubated for impending respiratory failure. Patient was seen by Dr. Erik Shepherd on 09/20/2020 for similar presentation of a ltered mental status and flailing all limbs and no jerking of extremities or gaze deviation. Her routine EEG was normal. No definitive etiology was identified. Patient had an MRI of the brain on 10/09/2020, which revealed age- related changes with no acute process. Patient subsequently underwent prolonged, 2.5 hours EEG as an outpatient on 10/17/2020, which was read as normal. No epileptiform activity was seen. No electrographic seizures were recorded. Patient was not placed on any seizure medication. Review of Systems ROS unobtainable: due to endotracheal tube, due to mental status Past Medical History Past Medical History: Diabetes Mellitus, Hypertension, Thyroid Disorder Additional Past Medical History / Comment(s): chronic ANEMIA- pt gets iron trans. every 8-12 weeks for over 12 years. 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 culture/infection: 04/12/20 VRE MDRO Source:: Urine Past Surgical History: Hysterectomy, Joint Replacement, Orthopedic Surgery Additional Past Surgical History / Comment(s): LEFT KNEE ARTHROSCOPIC, carpal tunnel, left knee replacement, laser eye surgery Past Anesthesia/Blood Transfusion Reactions: No Reported Reaction Past Psychological History: No Psychological Hx Reported Smoking Status: Former smoker - Past Family History Mother Family Medical History: No Reported History Medications and Allergies Home Medications Medication Instructions Recorded Confirmed Type lisinopriL [Zestril] 10 mg PO DAILY 08/12/16 10/02/21 History Amitriptyline HCl [Elavil] 50 mg PO HS 03/10/20 10/02/21 History Levothyroxine Sodium 200 mcg PO DAILY 03/10/20 10/02/21 History rOPINIRole HCL [Requip] 1 mg PO TID 03/10/20 10/02/21 History Cyclobenzaprine HCl 10 mg PO TID 10 Days #30 tab 01/28/21 10/02/21 Rx Sertraline [Zoloft] 150 mg PO DAILY 10/02/21 10/02/21 History Allergies Allergy/AdvReac Type Severity Reaction Status Date / Time meperidine HCl [From Demerol] Allergy Rash/Hives Verified 10/02/21 07:51 Penicillins Allergy Rash/Hives Verified 10/02/21 07:51 Sulfa (Sulfonamide Allergy Rash/Hives Verified 10/02/21 07:51 Antibiotics) Physical Examination - Vital Signs Vital Signs: Vital Signs Temp Pulse Resp BP Pulse Ox FiO2 10/02/21 08:27 82 22 133/74 95 10/02/21 08:00 97.6 F 85 132/80 95 60 10/02/21 07:48 87 132/80 96 10/02/21 07:25 60 10/02/21 07:24 93 115/73 94 L 10/02/21 07:19 98.1 F 90 26 H 125/76 96 10/02/21 06:30 99 19 114/72 98 10/02/21 06:15 98 19 120/75 97 10/02/21 06:00 102 H 20 131/87 97 10/02/21 05:48 60 10/02/21 05:45 111 H 20 120/99 97 10/02/21 05:15 118 H 21 186/102 95 100 10/02/21 05:01 100 10/02/21 05:00 121 H 20 96 10/02/21 04:29 122 H 20 168/93 97 10/02/21 04:09 98.2 F 123 H 22 202/109 92 L Intake and Output 10/01/21 10/02/21 10/02/21 22:59 06:59 14:59 Intake Total 49.467 Output Total 100 Balance 49.467 -100 Intake: Intake, IV Titration 49.467 Amount propofoL 1,000 mg In 49.467 Empty Bag 1 bag @ 5 MCG/ KG/MIN 2.517 mls/hr IV . Q24H [facility] Rx#:[id number] Output: Urine 100 Other: Weight 83.915 kg Patient is an elderly female, who is intubated. Patient was on propofol 70 g, which was turned down to 50 mcg/g/m. It was turned off for examination. Patient is obtunded, not responding to calling her name. On cranial nerve examination, pupils are equal, round and reacting to light, visual grant cannot be tested, oculocephalics are slightly present. Corneals absent. Facial and lower cranial nerves cannot be tested. On muscle strength testing, patient appears to be moving left arm slightly less as compared to the right. In the arms or held up, the left appears to goes down faster as compared to the right. Patient withdraws slightly more on the right as compared to the left. Lower extremities could not be tested because of ment al status. Deep tendon reflexes are 2 in bilateral upper extremities. 2) the right knee, 1 on the left. Patient has history of left knee replacement. Plantars are upgoing bilaterally. Sensory, cerebellar functions and gait cannot be tested On general examination, there is no carotid bruit or murmur, S1-S2 audible. Abdomen is soft nontender. No organomegaly, bowel sounds present. Chest is clear. . No edema. Results - Laboratory Findings CBC and BMP: 10/02/21 04:26 10/02/21 04:26 Abnormal Lab Findings: Abnormal Labs 10/02/21 10/02/21 10/02/21 04:18 04:26 04:26 WBC 16.4 H RDW 15.9 H Neutrophils # 14.4 H Lymphocytes # 0.9 L APTT D-Dimer ABG pH ABG pCO2 ABG pO2 ABG HCO3 ABG O2 Saturation VBG pCO2 VBG HCO3 Chloride 109 H Carbon Dioxide 20 L BUN 27 H Creatinine 1.30 H Glucose 390 H POC Glucose (mg/dL) 390 H Plasma Lactic Acid [place] Ur Specific [place] Urine Protein Urine Glucose (UA) 10/02/21 10/02/21 10/02/21 04:26 04:26 04:26 WBC RDW Neutrophils # Lymphocytes # APTT 21.9 L D-Dimer 2.66 H ABG pH ABG pCO2 ABG pO2 ABG HCO3 ABG O2 Saturation VBG pCO2 35 L VBG HCO3 20 L Chloride Carbon Dioxide BUN Creatinine Glucose POC Glucose (mg/dL) Plasma Lactic Acid [place] 2.1 H* Ur Specific [place] Urine Protein Urine Glucose (UA) 10/02/21 10/02/21 10/02/21 05:41 06:55 09:12 WBC RDW Neutrophils # Lymphocytes # APTT D-Dimer ABG pH 7.20 L ABG pCO2 52 H ABG pO2 376 H ABG HCO3 20 L ABG O2 Saturation 99.9 H VBG pCO2 VBG HCO3 Chloride Carbon Dioxide BUN Creatinine Glucose POC Glucose (mg/dL) 250 H Plasma Lactic Acid [place] Ur Specific [place] >1.050 H Urine Protein Trace H Urine Glucose (UA) 3+ H Assessment and Plan Assessment: * Abnormal CT head, with possible subacute stroke involving right anterior limb of internal capsule/caudate. * Altered mental status, possible metabolic encephalopathy. Patient had similar presentation of altered mental status, and flailing of extremities in the past. Patient had multiple EEGs performed, that was negative for seizures. * Acute respiratory failure, on mechanical ventilation. * Cervical spondylosis * Restless leg syndrome * Hypothyroidism * History of left knee replacement. Plan: * Patient's CTA of head and neck performed a year ago was negative for any stenosis. We will check carotid Doppler rule out any interval change. * Check 2-D echo with bubble study, rule out PFO. * Patient's hemoglobin A1c 7.2 on 10/09/2020. We will repeat A1c. * Fasting lipid panel * Start aspirin 300 mg rectally daily. * MRI of the brain when extubated. Otherwise we'll repeat CT head on 10/04/2021. * ICU team has already ordered EEG. * Telemetry monitoring rule out arrhythmia. * DVT prophylaxis: Patient on Lovenox 40 mg subcu daily. * Neurology will follow. Thank you for the consult.
[2021-10-02] MEDS: ASPIRIN 300 MG SUPP RECTAL SCH (20:06)
[2021-10-02] MEDS: CHLORHEXIDINE GLUCONATE 15 ML CUP MUCOUS MEM SCH (21:35)
--- NOTE | 2021-10-02 21:58 | US ---
EXAMINATION TYPE: US carotid duplex BILAT DATE OF EXAM: 10/02/2021 COMPARISON: NONE CLINICAL HISTORY: CVA. CVA exam limited patient on vent and restless during exam. EXAM MEASUREMENTS: RIGHT: Peak Systolic Velocity (PSV) cm/sec ----- Right CCA: 57.3 ----- Right ICA: 71.6 ----- Right ECA: 139.8 ICA/CCA ratio: 1.3 RIGHT: End Diastole cm/sec ----- Right CCA: 11.6 ----- Right ICA: 16.8 ----- Right ECA: 17.5 LEFT: Peak Systolic Velocity (PSV) cm/sec ----- Left CCA: 100.2 ----- Left ICA: 96.3 ----- Left ECA: 106.1 ICA/CCA ratio: 1.0 LEFT: End Diastole cm/sec ----- Left CCA: 21.5 ----- Left ICA: 19.5 ----- Left ECA: 21.5 VERTEBRALS (direction of flow): Right Vertebral: Antegrade Left Vertebral: Antegrade Rhythm: Normal No significant stenosis seen IMPRESSION: Less than 50% stenosis of the bilateral carotid bifurcations. Criteria for Assigning % of Stenosis / Diameter reduction (Estimation based on the indirect measurements of the internal carotid artery velocities (ICA PSV). 1. Normal (no stenosis)=ICA PSV < 125 cm/s: ratio < 2.0: ICA EDV<40 cm/s. 2. Less than 50% stenosis=ICA PSV < 125 cm/s: ratio < 2.0: ICA EDV<40 cm/s. 3. 50 to 69% stenosis=ICA PSV of 125 to 230 cm/s: ration 2.0 ? 4.0: ICA EDV 40-100 cm/s. 4. Greater than 70% stenosis to near occlusion= ICA PSV > 230 cm/s: ratio > 4.0: ICA EDV > 100 cm/s. 5. Near occlusion= ICA PSV velocities may be low or undetectable: variable ratio and ICA EDV. 6. Total occlusion=unable to detect flow.
[2021-10-02 23:50] LABS: Glucose,Whole Blood 97 mg/dL (70-110)
[2021-10-03 00:57] LABS: Urine Alcohol Negative (Negative); Urine Barbiturate Negative (Negative); Urine Cocaine Negative (Negative); Urine Methadone Negative (Negative); Urine Opiates Negative (Negative); Urine Phencyclidine Negative (Negative)
[2021-10-03] MEDS: INSULIN ASPART (NovoLOG) 100 UNIT/ML VIAL SQ SCH ×4 (01:48→17:26)
[2021-10-03 02:13] LABS: Chol/HDL Ratio 5.51 Ratio; LDL Cholesterol,Calculated 160.5 mg/dL (0.0-131.0)
[2021-10-03 05:22] LABS: Glucose,Whole Blood 131 mg/dL (70-110)
[2021-10-03 05:35] LABS: ABG Base Excess -5.5 mmol/L; ABG HCO3 21 mmol/L (21-25); ABG Oxygen Saturation 97.2 % (94-97); ABG PCO2 41 mmHg (35-45); ABG PH 7.32 (7.35-7.45); ABG PO2 111 mmHg (83-108); ABG TCO2 22 mmol/L (19-24)
[2021-10-03 05:37] LABS: Allen Test Performed? no
[2021-10-03 05:41] LABS: Basophils # (A) 0.1 k/uL (0-0.2); Basophils % (A) 1 %; Eosinophils # (A) 0.4 k/uL (0-0.7); Eosinophils % (A) 6 %; HCT 33.3 % (34.0-46.0); HGB 10.7 gm/dL (11.4-16.0); Hypochromasia Slight; Lymphocytes # (A) 0.6 k/uL (1.0-4.8); Lymphocytes % (A) 9 %; MCH 29.8 pg (25.0-35.0); MCHC 32.1 g/dL (31.0-37.0); Mean Platelet Volume 8.7; Monocytes # (A) 0.4 k/uL (0-1.0); Monocytes % (A) 5 %; Neutrophils # (A) 5.6 k/uL (1.3-7.7); Neutrophils % (A) 79 %; Platelet Count 222 k/uL (150-450); RBC 3.58 m/uL (3.80-5.40); RDW 15.6 % (11.5-15.5); WBC 7.1 k/uL (3.8-10.6)
[2021-10-03 05:50] LABS: African American GFR (CKD) >90 (>60 ml/min/1.73 sqM); Anion Gap 3 mmol/L; Blood Urea Nitrogen 20 mg/dL (7-17); Calcium 7.5 mg/dL (8.4-10.2); Carbon Dioxide 20 mmol/L (22-30); Chloride 116 mmol/L (98-107); Glucose 125 mg/dL (74-99); Non-African American GFR(CKD) 80 (>60 ml/min/1.73 sqM); Sodium 139 mmol/L (137-145)
--- NOTE | 2021-10-03 07:42 | XR ---
EXAMINATION TYPE: XR chest 1V portable DATE OF EXAM: 10/03/2021 COMPARISON: Chest x-ray and CT dated 10/02/2021 HISTORY: Intubated TECHNIQUE: Single frontal view of the chest is obtained. FINDINGS: Endotracheal tube and NG tube, right subclavian central venous catheter are all again note d overlying stable positions. Heart remains enlarged. Retrocardiac density obscures the left hemidiap hragm as on prior. No evident pneumothorax. There are overlying artifacts. Interstitium is mildly increased. IMPRESSION: Possible lower lobe atelectasis versus pneumonia, patient with known hiatal hernia. Card iomegaly is suspected.
[2021-10-03] MEDS: FAMOTIDINE 20 MG/2 ML VIAL IV SCH (08:49)
[2021-10-03] MEDS: ENOXAPARIN 40 MG/0.4 ML SYRINGE SQ SCH (08:49)
[2021-10-03] MEDS: CHLORHEXIDINE GLUCONATE 15 ML CUP MUCOUS MEM SCH ×2 (08:49→20:33)
[2021-10-03] MEDS: ASPIRIN 300 MG SUPP RECTAL SCH (09:11)
--- NOTE | 2021-10-03 10:22 | P.HPIM ---
History of Present Illness 71-year-old female was born emergency department with altered mental status 0 concerned about seizures. Patient was found on the floor with seizure-like activity with the altered mental status and showed progression presently actual ly had lost consciousness no bowel or bladder incontinence patient was subsequent about. Patient was subsequently intubated because of altered mental status patient had a CT of the head which as per the neurologist showed possible subacute stroke involving the right anterior limb of the patient is presently mechanically intubated unable to obtain any history from the patient patient was in acute renal failure which resolved at this time. patient is on tricyclic antidepressants and not pulmonology believed patient had seizure from overdose and tricyclic antidepressants. Patient on mechanical related to this time patient is intubated because of altered consciousness. Patient had a CT angios the head and neck which did not show any significant abnormality. REVIEW OF SYSTEMS: Sheis intubated sedated PHYSICAL EXAMINATION: GENERAL: She and is intubated and sedated on mechanical ventilator HEENT: Pupils are round and equally reacting to light. EOMI. No scleral icterus. No conjunctival pallor. Normocephalic, atraumatic. No pharyngeal erythema. No thyromegaly. CARDIOVASCULAR: S1 and S2 present. No murmurs, rubs, or gallops. PULMONARY: Chest is clear to auscultation, no wheezing or crackles. ABDOMEN: Soft, nontender, nondistended, normoactive bowel sounds. No palpable organomegaly. MUSCULOSKELETAL: No joint swelling or deformity. EXTREMITIES: No cyanosis, clubbing, or pedal edema. NEUROLOGICAL: Patient is sedated and is on propofol SKIN: No rashes. Assessment and plan -Altered mental status, altered consciousness: Etiology is not clear at this time to possibilities being stroke in the right cerebral hemisphere as mentioned above are a seizure activity secondary to overdose on tricyclic antidepressants, continue with the ventilatory support, wean off as tolerated. Patient is undergoing workup for stroke echo is being obtained -Possibility of encephalopathy and toxic may be related to tricyclic antidepressants -Acute renal failure prerenal azotemia due to dehydration improved at this time serum creatinine came down to 0.75 with IV fluids was 1.3 on admission -Acute respiratory failure underwent mechanical ventilation patient respiratory failure secondary to altered consciousness -Restless leg syndrome -Hypothyroidism -Leukocytosis reactive DVT prophylaxis: Lovenox Past Medical History Past Medical History: Diabetes Mellitus, Hypertension, Thyroid Disorder Additional Past Medical History / Comment(s): chronic ANEMIA- pt gets iron trans. every 8-12 weeks for over 12 years. 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 culture/infection: 04/12/20 VRE MDRO Source:: Urine Past Surgical History: Hysterectomy, Joint Replacement, Orthopedic Surgery Additional Past Surgical History / Comment(s): LEFT KNEE ARTHROSCOPIC, carpal tunnel, left knee replacement, laser eye surgery Past Anesthesia/Blood Transfusion Reactions: No Reported Reaction Past Psychological History: No Psychological Hx Reported Smoking Status: Former smoker - Past Family History Mother Family Medical History: No Reported History Medications and Allergies Home Medications Medication Instructions Recorded Confirmed Type lisinopriL [Zestril] 10 mg PO DAILY 08/12/16 10/02/21 History Amitriptyline HCl [Elavil] 50 mg PO HS 03/10/20 10/02/21 History Levothyroxine Sodium 200 mcg PO DAILY 03/10/20 10/02/21 History rOPINIRole HCL [Requip] 1 mg PO TID 03/10/20 10/02/21 History Cyclobenzaprine HCl 10 mg PO TID 10 Days #30 tab 01/28/21 10/02/21 Rx Sertraline [Zoloft] 150 mg PO DAILY 10/02/21 10/02/21 History Allergies Allergy/AdvReac Type Severity Reaction Status Date / Time meperidine HCl [From Demerol] Allergy Rash/Hives Verified 10/02/21 07:51 Penicillins Allergy Rash/Hives Verified 10/02/21 07:51 Sulfa (Sulfonamide Allergy Rash/Hives Verified 10/02/21 07:51 Antibiotics) Physical Exam Vitals: Vital Signs Temp Pulse Resp BP Pulse Ox FiO2 10/03/21 08:00 97.6 F 67 20 144/77 99 45 10/03/21 07:34 45 10/03/21 07:00 64 19 135/70 99 10/03/21 06:00 67 18 125/68 100 45 10/03/21 05:00 71 17 125/68 98 10/03/21 04:00 97.9 F 64 20 94/53 99 40 10/03/21 03:15 45 10/03/21 03:00 61 20 94/53 99 10/03/21 02:00 58 L 20 95/54 98 45 10/03/21 01:00 60 20 95/54 99 45 10/03/21 00:06 61 22 95/54 99 10/03/21 00:00 97.8 F 61 20 98/53 99 10/02/21 23:27 45 10/02/21 23:26 40 10/02/21 23:00 64 20 105/58 100 45 10/02/21 22:00 64 20 143/82 100 45 10/02/21 21:00 65 22 107/62 100 45 10/02/21 20:25 45 10/02/21 20:00 97.7 F 66 20 116/64 98 40 10/02/21 19:00 64 20 117/63 94 L 10/02/21 18:00 66 20 104/61 100 10/02/21 17:00 62 20 101/57 99 10/02/21 16:00 97.6 F 62 20 111/64 100 40 10/02/21 15:24 45 10/02/21 15:00 63 20 100/60 100 10/02/21 14:00 65 7 L 86/52 99 10/02/21 13:00 64 20 115/68 100 10/02/21 12:00 62 20 97/53 98 45 10/02/21 11:26 45 10/02/21 11:00 67 20 133/77 97 Intake and Output 10/02/21 10/03/21 10/03/21 22:59 06:59 14:59 Intake Total 2306.962 627.104 100 Output Total 285 420 55 Balance 2021.962 207.104 45 Intake: IV 200 450 100 NS 200 450 100 Intake, IV Titration 2106.962 177.104 Amount Sodium Chloride 0.9% 1, 2000 000 ml @ 999 mls/hr IV . Q1H1M ONE Rx#:[id number] propofoL 1,000 mg In 106.962 177.104 Empty Bag 1 bag @ 5 MCG/ KG/MIN 2.517 mls/hr IV . Q24H [facility] Rx#:[id number] Output: Urine 285 420 55 Other: Voiding Method Indwelling Catheter Indwelling Catheter Weight 96 kg ABP, PAP, CO, CI - Last 8 Hours Arterial Blood Pressure 164/72 Arterial Blood Pressure 130/62 Arterial Blood Pressure 142/63 Arterial Blood Pressure 158/68 Arterial Blood Pressure 138/62 Arterial Blood Pressure 120/55 Results CBC & Chem 7: 10/03/21 05:15 10/03/21 05:15 Labs: Abnormal Lab Results - Last 24 Hours (Table) 10/02/21 10/02/21 10/02/21 Range/Units 04:26 04:26 09:39 RBC (3.80-5.40) m/uL Hgb (11.4-16.0) gm/dL Hct (34.0-46.0) % RDW (11.5-15.5) % Lymphocytes # (1.0-4.8) k/uL ABG pH (7.35-7.45) ABG pO2 (83-108) mmHg ABG O2 Saturation (94-97) % Chloride (98-107) mmol/L Carbon Dioxide (22-30) mmol/L BUN (7-17) mg/dL Glucose (74-99) mg/dL POC Glucose (mg/dL) (70-110) mg/dL Hemoglobin A1c 9.0 H (0.0-6.0) % Calcium (8.4-10.2) mg/dL Cholesterol 232.00 H (0.00-200.00) mg/dL LDL Cholesterol, Calc 160.5 H (0.0-131.0) mg/dL U Benzodiazepines Scrn Positive A (Negative) 10/02/21 10/03/21 10/03/21 Range/Units 11:33 05:15 05:15 RBC 3.58 L (3.80-5.40) m/uL Hgb 10.7 L (11.4-16.0) gm/dL Hct 33.3 L (34.0-46.0) % RDW 15.6 H (11.5-15.5) % Lymphocytes # 0.6 L (1.0-4.8) k/uL ABG pH (7.35-7.45) ABG pO2 (83-108) mmHg ABG O2 Saturation (94-97) % Chloride 116 H (98-107) mmol/L Carbon Dioxide 20 L (22-30) mmol/L BUN 20 H (7-17) mg/dL Glucose 125 H (74-99) mg/dL POC Glucose (mg/dL) 211 H (70-110) mg/dL Hemoglobin A1c (0.0-6.0) % Calcium 7.5 L (8.4-10.2) mg/dL Cholesterol (0.00-200.00) mg/dL LDL Cholesterol, Calc (0.0-131.0) mg/dL U Benzodiazepines Scrn (Negative) 10/03/21 10/03/21 Range/Units 05:20 05:32 RBC (3.80-5.40) m/uL Hgb (11.4-16.0) gm/dL Hct (34.0-46.0) % RDW (11.5-15.5) % Lymphocytes # (1.0-4.8) k/uL ABG pH 7.32 L (7.35-7.45) ABG pO2 111 H (83-108) mmHg ABG O2 Saturation 97.2 H (94-97) % Chloride (98-107) mmol/L Carbon Dioxide (22-30) mmol/L BUN (7-17) mg/dL Glucose (74-99) mg/dL POC Glucose (mg/dL) 131 H (70-110) mg/dL Hemoglobin A1c (0.0-6.0) % Calcium (8.4-10.2) mg/dL Cholesterol (0.00-200.00) mg/dL LDL Cholesterol, Calc (0.0-131.0) mg/dL U Benzodiazepines Scrn (Negative) Microbiology - Last 24 Hours (Table) 10/02/21 05:20 Blood Culture - Preliminary Blood No Growth after 24 hours 10/02/21 05:35 Blood Culture - Preliminary Blood No Growth after 24 hours 10/02/21 05:51 Gram Stain - Preliminary Sputum Sputum Culture - Preliminary Thrombosis Risk Factor Assmnt - Choose All That Apply Any of the Below Risk Factors Present?: Yes Each Factor Represents 1 point: Medical pt on bed rest, Oral contraceptives or hormone replacement therapy Each Risk Factor Represents 2 Points: Age 61-74 years Thrombosis Risk Factor Assessment Total Risk Factor Score: 4 Thrombosis Risk Factor Assessment Level: Moderate Risk
[2021-10-03 11:55] LABS: Glucose,Whole Blood 87 mg/dL (70-110)
[2021-10-03] MEDS ORDERED: hydrALAZINE HCL 20 MG/ML 1 ML VIAL IVP STA (11:56)
[2021-10-03] MEDS: CLEVIDIPINE BUTYRATE 25 MG in EMPTY BAG 1 BAG IV SCH (12:04)
--- NOTE | 2021-10-03 12:27 | P.PN ---
Subjective Progress Note Date: 10/03/21 Principal diagnosis: Altered mental status and acute hypoxic respiratory failure possible seizure/CVA. This is a 71-year-old female admitted through the emergency room early this m abril. Patient was admitted to the ICU because upon arrival to the ER, patient had to be intubated and mechanically ventilated. 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 However the patient was noted to be quite confused, and she was attempting to draw deep breaths but could not breathe adequately. He also noted that the patient was kicking out and flailing on the bed. Patient was also noted to be very sweaty. according to , few hours earlier, the patient was just fine when they ate supper in the evening. No history of drug abuse. No history of seizures. However the patient had a similar presentation in September of 2020, patient presented back then with similar presentation, and she required intubation and mechanical ventilation. Back then, the patient had extensive workup by neurology, and we felt back then that the patient may have overdosed on her antidepressant. Workup for seizures was negative. Workup for metabolic encephalopathy was negative. Patient was eventually extubated within one day, and she was discharged home on 10/10/2020. Patient was seen by neurology back then, and her EEG was negative for seizure activity. She had basically normal neurological workup. Including MRI of the brain patient is now on mechanical ventilation, she is on assist control rate of 16 and a considerable up to 20 times volume 400 FiO2 45% PEEP of 5. ABG earlier showed a pO2 of 376 pCO2 [address] of the brain questioned subacute CVA. Reevaluated today on 10/03/21, patient remains in the ICU, intubated and mechanically ventilated. Patient is on propofol at 30 mcg/kg/h, he is fully sedated, and I have recommended that we stop the sedation in order to assess mental status today, and possibly give the patient a trial of weaning. She is on assist control rate of 20, volume 400 FiO2 45% PEEP of 5 ABG showed a pO2 of 111 pCO2 41 pH of 7.32. Chest x-ray continues to show left lower lobe atelectasis and large hiatal hernia with cardiomegaly. CBC is relatively unremarkable WBC count is 7.1 hemoglobin is 10.7. Basic metabolic profile is n ormal, renal profile is normal. Blood pressure is a bit elevated, will start the patient on clevidipine drip, patient remains on GI and DVT prophylaxis, and enteral feeding is yet to be started. Carotid Doppler showed no significant stenosis. CT of the head showed possible subacute stroke involving the right anterior limb of internal capsule, EEG is pending, patient was seen by neurology on consultation, still doubting seizures, however the clinical history is quite suggestive of seizure unless for otherwise Objective - Vital Signs Vital signs: Vital Signs Temp 97.6 F 10/03/21 08:00 Pulse 75 10/03/21 12:00 Resp 16 10/03/21 12:00 BP 184/89 10/03/21 12:00 Pulse Ox 98 10/03/21 12:00 FiO2 45 10/03/21 11:30 Intake & Output 10/02/21 10/03/21 10/03/21 18:59 06:59 18:59 Intake Total 2150.533 907.913 223.469 Output Total 375 570 225 Balance 1775.533 337.913 -1.531 Weight 83.915 kg 96 kg Intake: IV 650 150 NS 650 150 Intake, IV Titration 2150.533 257.913 73.469 Amount Clevidipine Butyrate 25 0.867 mg In Empty Bag 1 bag @ 1 MG/HR 2 mls/hr IV .Q24H [facility] Rx#:[id number] Sodium Chloride 0.9% 1, 2000 000 ml @ 999 mls/hr IV . Q1H1M [facility] Rx#:[id number] propofoL 1,000 mg In 150.533 257.913 72.602 Empty Bag 1 bag @ 5 MCG/ KG/MIN 2.517 mls/hr IV . Q24H [facility] Rx#:[id number] Output: Urine 375 570 225 Other: Voiding Method Indwelling Catheter Indwelling Catheter ABP, PAP, CO, CI - Last Documented Arterial Blood Pressure 197/77 - Exam Physical Exam: Revealed a 70-year-old female intubated and mechanically ventilated. Sedated, on propofol. Head: Atraumatic, normocephalic. Endotracheal tube and orogastric tube are intact HEENT:[Neck is supple.] [No neck masses.] [No thyromegaly.] [No JVD.] PERRLA, EOMI, anicteric. Chest: [Electrical chest expansion, final crackles at the bases no rhonchi and no wheezes Cardiac Exam: [Normal S1 and S2, no S3 gallop, no murmur.] Abdomen: [Soft, nontender, no megaly, no rebound, no guarding, normal bowel sounds.] Extremities: No clubbing edema or cyanosis, good pulses bilaterally. Neurological Exam: Sedated, on propofol ,could not fully assess mental status. Psychiatric: Could not assess. Skin: No rashes. Musculoskeletal: No deformities - Labs CBC & Chem 7: 10/03/21 05:15 10/03/21 05:15 Labs: Abnormal Lab Results - Last 24 Hours (Table) 10/02/21 10/02/21 10/02/21 Range/Units 04:26 04:26 09:39 RBC (3.80-5.40) m/uL Hgb (11.4-16.0) gm/dL Hct (34.0-46.0) % RDW (11.5-15.5) % Lymphocytes # (1.0-4.8) k/uL ABG pH (7.35-7.45) ABG pO2 (83-108) mmHg ABG O2 Saturation (94-97) % Chloride (98-107) mmol/L Carbon Dioxide (22-30) mmol/L BUN (7-17) mg/dL Glucose (74-99) mg/dL POC Glucose (mg/dL) (70-110) mg/dL Hemoglobin A1c 9.0 H (0.0-6.0) % Calcium (8.4-10.2) mg/dL Cholesterol 232.00 H (0.00-200.00) mg/dL LDL Cholesterol, Calc 160.5 H (0.0-131.0) mg/dL U Benzodiazepines Scrn Positive A (Negative) 10/03/21 10/03/21 10/03/21 Range/Units 05:15 05:15 05:20 RBC 3.58 L (3.80-5.40) m/uL Hgb 10.7 L (11.4-16.0) gm/dL Hct 33.3 L (34.0-46.0) % RDW 15.6 H (11.5-15.5) % Lymphocytes # 0.6 L (1.0-4.8) k/uL ABG pH (7.35-7.45) ABG pO2 (83-108) mmHg ABG O2 Saturation (94-97) % Chloride 116 H (98-107) mmol/L Carbon Dioxide 20 L (22-30) mmol/L BUN 20 H (7-17) mg/dL Glucose 125 H (74-99) mg/dL POC Glucose (mg/dL) 131 H (70-110) mg/dL Hemoglobin A1c (0.0-6.0) % Calcium 7.5 L (8.4-10.2) mg/dL Cholesterol (0.00-200.00) mg/dL LDL Cholesterol, Calc (0.0-131.0) mg/dL U Benzodiazepines Scrn (Negative) 10/03/21 Range/Units 05:32 RBC (3.80-5.40) m/uL Hgb (11.4-16.0) gm/dL Hct (34.0-46.0) % RDW (11.5-15.5) % Lymphocytes # (1.0-4.8) k/uL ABG pH 7.32 L (7.35-7.45) ABG pO2 111 H (83-108) mmHg ABG O2 Saturation 97.2 H (94-97) % Chloride (98-107) mmol/L Carbon Dioxide (22-30) mmol/L BUN (7-17) mg/dL Glucose (74-99) mg/dL POC Glucose (mg/dL) (70-110) mg/dL Hemoglobin A1c (0.0-6.0) % Calcium (8.4-10.2) mg/dL Cholesterol (0.00-200.00) mg/dL LDL Cholesterol, Calc (0.0-131.0) mg/dL U Benzodiazepines Scrn (Negative) Microbiology - Last 24 Hours (Table) 10/02/21 05:20 Blood Culture - Preliminary Blood No Growth after 24 hours 10/02/21 05:35 Blood Culture - Preliminary Blood No Growth after 24 hours 10/02/21 05:51 Gram Stain - Preliminary Sputum Sputum Culture - Preliminary Assessment and Plan Assessment: Acute episode of mental status change and involuntary movement, possible seizure, possible CVA possible tricyclics overdose. Clinically I strongly suspect seizure activity based on the clinical history from the . Acute hypoxic respiratory failure secondary to above chronic iron deficiency anemia History of restless leg syndrome History of COVID-19 pneumonia History of hypothyroidism History of left total knee arthroplasty. History of depression Recommendation: Continue ventilatory support. However I will plan on stopping the propofol, and may give the patient a weaning trial if seems to be very appropriate after being off propofol. May give the patient a trial of pressure support of 10 and CPAP. Weaning trial to be done today off propofol. Continue GI and DVT prophylaxis. EEG to evaluate for seizure activity. This is pending. Drug screen was ordered and came back positive for tricyclics and positive for marijuana. Hemodynamic monitoring. If not extubated, patient will be started on enteral feeds. We will continue to follow. Patient is critically ill, and critical care time is over 30 minutes Time with Patient: Greater than 30
--- NOTE | 2021-10-03 14:30 | CA ---
Transthoracic Echo Report Name: Denis Jalloh Age: 71 Gender: F : 1950 Exam Date: 10/03/2021 08:29 Exam Location: [facility] Ht (in): 66 Wt (lb): 211 Ordering Physician: Stacey Kerr MD Attending/Referring Phys: Tank Stave Assembler Gloria Love RDCS Procedure CPT: Indications: CVA Cardiac Hx: Technical Quality: Fair Contrast 1: Agitated Saline Total Dose (mL): Contrast 2: Total Dose (mL): MEASUREMENTS (Male / Female) Normal Values 2D ECHO LV Diastolic Diameter PLAX 3.8 cm 4.2 - 5.9 / 3.9 - 5.3 cm LV Systolic Diameter PLAX 2.7 cm IVS Diastolic Thickness 1.3 cm 0.6 - 1.0 / 0.6 - 0.9 cm LVPW Diastolic Thickness 1.5 cm 0.6 - 1.0 / 0.6 - 0.9 cm LV Relative Wall Thickness 0.7 LA Volume 75.7 cm??? 18 - 58 / 22 - 52 cm??? M-MODE Aortic Root Diameter MM 3.5 cm LA Systolic Diameter MM 4.0 cm LA Ao Ratio MM 1.1 AV Cusp Separation MM 1.9 cm DOPPLER AV Peak Velocity 164.9 cm/s AV Peak Gradient 10.9 mmHg AI Peak Velocity 541.6 cm/s AI Peak Gradient 117.3 mmHg AI Pressure Half Time 499.2 ms LVOT Peak Velocity 71.1 cm/s LVOT Peak Gradient 2.0 mmHg MV Area PHT 3.3 cm??? Mitral E Point Velocity 94.6 cm/s Mitral A Point Velocity 140.8 cm/s Mitral E to A Ratio 0.7 MV Deceleration Time 231.2 ms TR Peak Velocity 229.6 cm/s TR Peak Gradient 21.1 mmHg Right Ventricular Systolic Press 26.1 mmHg FINDINGS Left Ventricle Moderately increased left ventricular wall thickness. Normal left ventricular systolic function with no obvious regional wall motion abnormalities. Left ventricular ejection fraction is estimated at 55-60 %. Right Ventricle Normal right ventricular size and function. Right ventricular systolic pressure within normal limits. Right Atrium Normal right atrial size. Negative agitated saline bubble study for right to left shunt. Left Atrium Moderate left atrial dilatation. No evidence for an atrial septal defect. Mitral Valve Structurally normal mitral valve. Mild mitral annular calcification. Aortic Valve Aortic valve sclerosis. Thickened aortic valve without stenosis. Moderate-to- severe aortic regurgitation. Tricuspid Valve Structurally normal tricuspid valve. Mild tricuspid regurgitation. Pulmonic Valve Trace pulmonic regurgitation. Pericardium No pericardial effusion. Aorta Normal size aortic root and proximal ascending aorta. CONCLUSIONS Normal LV systolic function moderate to severe aortic regurgitation and mild mitral regurgitation Consider transesophageal echo to rule out intracardiac source for thromboembolic CVA Previewed by: Dr. Naveed Guerrero MD (Electronically Signed) Final Date: 03 October 2021 14:30
[2021-10-03 17:13] LABS: Glucose,Whole Blood 144 mg/dL (70-110)
[2021-10-03 20:14] LABS: Glucose,Whole Blood 216 mg/dL (70-110)
[2021-10-04 00:17] LABS: Glucose,Whole Blood 218 mg/dL (70-110)
[2021-10-04] MEDS: INSULIN ASPART (NovoLOG) 100 UNIT/ML VIAL SQ SCH ×5 (00:21→21:28)
[2021-10-04] MEDS: CLEVIDIPINE BUTYRATE 25 MG in EMPTY BAG 1 BAG IV SCH ×3 (00:28→10:55)
--- NOTE | 2021-10-04 01:49 | P.PN ---
Subjective Progress Note Date: 10/03/21 This is a telemedicine neurology follow-up performed today on 10/03/2021. Patient has been extubated. She states that she feels okay. Denies any headache. Complains of some dry mouth. Denies any problem with the vision. Patient states that her left arm is always been numb for months. She is getting physical therapy. Patient believes her legs are strong. Patient did not take any aspirin or antiplatelet medication at home. Patient denies diabetes. Patient has smoked 2 packs per day for 10 years, quit 40 years ago. Objective - Vital Signs Vital signs: Vital Signs Temp 98.0 F 10/04/21 00:00 Pulse 96 10/04/21 01:00 Resp 24 10/04/21 01:00 BP 142/74 10/04/21 00:00 Pulse Ox 95 10/04/21 01:00 FiO2 45 10/03/21 12:00 Intake & Output 10/03/21 10/03/21 10/04/21 06:59 18:59 06:59 Intake Total 121.789 8123.136 338.466 Output Total 570 2090 820 Balance 337.913 -15.864 -481.534 Weight 96 kg 96 kg Intake: IV 650 550 300 NS 650 550 300 Intake, IV Titration 257.913 84.136 38.466 Amount Clevidipine Butyrate 25 11.534 38.466 mg In Empty Bag 1 bag @ 1 MG/HR 2 mls/hr IV .Q24H NONA Rx#:[id number] propofoL 1,000 mg In 257.913 72.602 Empty Bag 1 bag @ 5 MCG/ KG/MIN 2.517 mls/hr IV . Q24H NONA Rx#:[id number] Tube Feeding 1440 Output: Urine 570 2090 820 Other: Voiding Method Indwelling Catheter Indwelling Catheter Indwelling Catheter ABP, PAP, CO, CI - Last Documented Arterial Blood Pressure 146/62 - Exam Patient's mental status, speech and language functions are normal. Her voice is slightly hoarse. Cranial nerves are significant for slightly decreased left nasolabial 4, but appears normal on active testing. Visual grant are full. Tongue protrudes the midline. On muscle strength testing, patient has mild left drift but no pronation. The strength is normal in the upper limbs. Both lower extremities are normal. Sensory touch is equal. No ataxia for [id number] testing. Abdomen SOFT nontender. Chest is clear. - Labs CBC & Chem 7: 10/03/21 05:15 10/03/21 05:15 Labs: Abnormal Lab Results - Last 24 Hours (Table) 10/02/21 10/02/21 10/03/21 Range/Units 04:26 04:26 05:15 RBC 3.58 L (3.80-5.40) m/uL Hgb 10.7 L (11.4-16.0) gm/dL Hct 33.3 L (34.0-46.0) % RDW 15.6 H (11.5-15.5) % Lymphocytes # 0.6 L (1.0-4.8) k/uL ABG pH (7.35-7.45) ABG pO2 (83-108) mmHg ABG O2 Saturation (94-97) % Chloride (98-107) mmol/L Carbon Dioxide (22-30) mmol/L BUN (7-17) mg/dL Glucose (74-99) mg/dL POC Glucose (mg/dL) (70-110) mg/dL Hemoglobin A1c 9.0 H (0.0-6.0) % Calcium (8.4-10.2) mg/dL Cholesterol 232.00 H (0.00-200.00) mg/dL LDL Cholesterol, Calc 160.5 H (0.0-131.0) mg/dL 10/03/21 10/03/21 10/03/21 Range/Units 05:15 05:20 05:32 RBC (3.80-5.40) m/uL Hgb (11.4-16.0) gm/dL Hct (34.0-46.0) % RDW (11.5-15.5) % Lymphocytes # (1.0-4.8) k/uL ABG pH 7.32 L (7.35-7.45) ABG pO2 111 H (83-108) mmHg ABG O2 Saturation 97.2 H (94-97) % Chloride 116 H (98-107) mmol/L Carbon Dioxide 20 L (22-30) mmol/L BUN 20 H (7-17) mg/dL Glucose 125 H (74-99) mg/dL POC Glucose (mg/dL) 131 H (70-110) mg/dL Hemoglobin A1c (0.0-6.0) % Calcium 7.5 L (8.4-10.2) mg/dL Cholesterol (0.00-200.00) mg/dL LDL Cholesterol, Calc (0.0-131.0) mg/dL 10/03/21 10/03/21 10/04/21 Range/Units 17:11 20:13 00:15 RBC (3.80-5.40) m/uL Hgb (11.4-16.0) gm/dL Hct (34.0-46.0) % RDW (11.5-15.5) % Lymphocytes # (1.0-4.8) k/uL ABG pH (7.35-7.45) ABG pO2 (83-108) mmHg ABG O2 Saturation (94-97) % Chloride (98-107) mmol/L Carbon Dioxide (22-30) mmol/L BUN (7-17) mg/dL Glucose (74-99) mg/dL POC Glucose (mg/dL) 144 H 216 H 218 H (70-110) mg/dL Hemoglobin A1c (0.0-6.0) % Calcium (8.4-10.2) mg/dL Cholesterol (0.00-200.00) mg/dL LDL Cholesterol, Calc (0.0-131.0) mg/dL Microbiology - Last 24 Hours (Table) 10/02/21 05:20 Blood Culture - Preliminary Blood No Growth after 24 hours 10/02/21 05:35 Blood Culture - Preliminary Blood No Growth after 24 hours Assessment and Plan Assessment: * Probable subacute stroke involving right anterior limb of internal caps ule/caudate. * Altered mental status, possible metabolic encephalopathy. Patient had similar presentation of altered mental status, and flailing of extremities in the past. Patient had multiple EEGs performed, that was negative for seizures. * Acute respiratory failure, on mechanical ventilation. Status post extubation. * Diabetes, uncontrolled (new onset) * Hyperlipidemia * Hypertension * Cervical spondylosis * Restless leg syndrome * Hypothyroidism * History of left knee replacement. Plan: * MRI brain, evaluate for acute stroke. * Carotid Doppler revealed less than 50% stenosis of bilateral ICA. Antegrade flow in both vertebral arteries. * Patient's CTA of head and neck performed a year ago was negative for any stenosis. * 2-D echo with bubble study revealed normal left ventricular systolic function, moderate to severe aortic regurgitation and mild MR. Consider transesophageal echocardiogram to rule out intracardiac source for thromboembolic CVA. * We will consult cardiology for possible VETO (as mentioned in the echo report) * Patient's hemoglobin A1c 9.0. Patient denies any history of diabetes. Patient's hemoglobin A1c 7.2 on 10/09/2020. Need to optimize control of diabetes to target A1c < 7.0 * Fasting lipid panel with cholesterol 232, LDL 160, HDL 42 and triglycerides 147. Start Lipitor 40 mg daily. * Start aspirin 325 mg orally daily. Patient was not taking any antiplatelet medication at home. * ICU team has already ordered EEG. * Telemetry monitoring rule out arrhythmia. * DVT prophylaxis: Patient on Lovenox 40 mg subcu daily.
[2021-10-04 05:23] LABS: Glucose,Whole Blood 118 mg/dL (70-110)
[2021-10-04 05:36] LABS: Basophils % (A) 0 %; Eosinophils # (A) 0.3 k/uL (0-0.7); Eosinophils % (A) 4 %; HCT 35.8 % (34.0-46.0); HGB 11.7 gm/dL (11.4-16.0); Hypochromasia Slight; Lymphocytes # (A) 0.5 k/uL (1.0-4.8); Lymphocytes % (A) 6 %; MCH 30.2 pg (25.0-35.0); MCHC 32.7 g/dL (31.0-37.0); MCV 92.4 fL (80.0-100.0); Mean Platelet Volume 8.1; Monocytes # (A) 0.4 k/uL (0-1.0); Monocytes % (A) 5 %; Neutrophils # (A) 6.5 k/uL (1.3-7.7); Neutrophils % (A) 83 %; Platelet Count 248 k/uL (150-450); RBC 3.87 m/uL (3.80-5.40); RDW 15.9 % (11.5-15.5); WBC 7.8 k/uL (3.8-10.6)
[2021-10-04 05:47] LABS: African American GFR (CKD) >90 (>60 ml/min/1.73 sqM); Anion Gap 4 mmol/L; Blood Urea Nitrogen 11 mg/dL (7-17); Calcium 8.1 mg/dL (8.4-10.2); Carbon Dioxide 22 mmol/L (22-30); Chloride 114 mmol/L (98-107); Glucose 117 mg/dL (74-99); Non-African American GFR(CKD) 85 (>60 ml/min/1.73 sqM); Potassium 3.6 mmol/L (3.5-5.1); Sodium 140 mmol/L (137-145)
[2021-10-04] MEDS: ASPIRIN 325 MG TAB PO SCH (07:06)
[2021-10-04] MEDS: LEVOTHYROXINE 100 MCG TAB PO SCH (07:06)
[2021-10-04] MEDS ORDERED: ACETAMINOPHEN TAB 325 MG TAB PO PRN (07:38)
--- NOTE | 2021-10-04 07:49 | XR ---
EXAMINATION TYPE: XR chest 1V portable DATE OF EXAM: 10/04/2021 6:02 AM COMPARISON: Chest radiograph from one day prior. TECHNIQUE: XR chest 1V portable Portable AP radiograph of the chest.. CLINICAL INDICATION:Female, 71 years old with history of Tube placement; FINDINGS: Lungs/Pleura: Similar elevated left diaphragm. There is no evidence of pleural effusion, focal consol idation, or pneumothorax. Pulmonary vascularity: Unremarkable. Heart/mediastinum: Cardiomediastinal silhouette is enlarged and stable. Musculoskeletal: No acute osseous pathology. Lines/Tubes: Right central venous catheter with distal tip at the cavoatrial junction. Interval removal of endotracheal tube. Other: Large left hernia as seen on prior CT. IMPRESSION: 1. Interval removal of endotracheal tube. 2. Large left hernia. 3. Mild cardiomegaly. 4. Right central venous catheter with tip in appropriate position.
[2021-10-04] MEDS ORDERED: POTASSIUM CHLORIDE ER 20 MEQ TAB.ER PO SCH (08:00)
[2021-10-04] MEDS: ATORVASTATIN 40 MG TAB PO SCH (08:03)
[2021-10-04] MEDS: ENOXAPARIN 40 MG/0.4 ML SYRINGE SQ SCH (08:03)
[2021-10-04] MEDS: FAMOTIDINE 20 MG/2 ML VIAL IV SCH (08:04)
[2021-10-04] MEDS: CHLORHEXIDINE GLUCONATE 15 ML CUP MUCOUS MEM SCH ×2 (08:04→19:23)
[2021-10-04] MEDS ORDERED: lisinopriL 10 MG TAB PO SCH (09:00)
[2021-10-04] MEDS: amLODIPine 5 MG TAB PO SCH ×2 (09:27→21:28)
--- NOTE | 2021-10-04 10:31 | P.PN ---
Subjective Progress Note Date: 10/04/21 Principal diagnosis: Altered mental status and acute hypoxic respiratory failure possible seizure/CVA. This is a 71-year-old female admitted through the emergency room early this m abril. Patient was admitted to the ICU because upon arrival to the ER, patient had to be intubated and mechanically ventilated. Apparently the relates that the patient awakened her early intervention specialist hours and she fell out of bed, and he tried to assist her to get back to bed. However the patient was noted to be quite confused, and she was attempting to draw deep breaths but could not breathe adequately. He also noted that the patient was kicking out and flailing on the bed. Patient was also noted to be very sweaty. according to , few hours earlier, the patient was just fine when they ate supper in the evening. No history of drug abuse. No history of seizures. However the patient had a similar presentation in September of 2020, patient presented back then with similar presentation, and she required intubation and mechanical ventilation. Back then, the patient had extensive workup by neurology, and we felt back then that the patient may have overdosed on her antidepressant. Workup for seizures was negative. Workup for metabolic encephalopathy was negative. Patient was eventually extubated within one day, and she was discharged home on 10/10/2020. Patient was seen by neurology back then, and her EEG was negative for seizure activity. She had basically normal neurological workup. Including MRI of the brain patient is now on mechanical ventilation, she is on assist control rate of 16 and a considerable up to 20 times volume 400 FiO2 45% PEEP of 5. ABG earlier showed a pO2 of 376 pCO2 [address] of the brain questioned subacute CVA. Reevaluated today on 10/03/21, patient remains in the ICU, intubated and mechanically ventilated. Patient is on propofol at 30 mcg/kg/h, he is fully sedated, and I have recommended that we stop the sedation in order to assess mental status today, and possibly give the patient a trial of weaning. She is on assist control rate of 20, volume 400 FiO2 45% PEEP of 5 ABG showed a pO2 of 111 pCO2 41 pH of 7.32. Chest x-ray continues to show left lower lobe atelectasis and large hiatal hernia with cardiomegaly. CBC is relatively unremarkable WBC count is 7.1 hemoglobin is 10.7. Basic metabolic profile is n ormal, renal profile is normal. Blood pressure is a bit elevated, will start the patient on clevidipine drip, patient remains on GI and DVT prophylaxis, and enteral feeding is yet to be started. Carotid Doppler showed no significant stenosis. CT of the head showed possible subacute stroke involving the right anterior limb of internal capsule, EEG is pending, patient was seen by neurology on consultation, still doubting seizures, however the clinical history is quite suggestive of seizure unless for otherwise Reevaluated today on 10/04/21, patient remains in the ICU, she was extubated yesterday, tolerated the extubation well. Patient is on room air, O2 saturations 94%. She is on Klonopin proximal drip for elevated blood pressure, presently at 2 mg per hour. I added amlodipine and I will likely discontinue Cleviprex drip. Patient is alert, oriented 3, she has no focal neurologic de ficit, she is scheduled to have MRI and EEG on Tuesday. Labs today showed relatively normal CBC, normal electrolytes, normal renal profile chest x-ray showed large left hiatal hernia otherwise unremarkable. No evidence of pneumonia. Objective - Vital Signs Vital signs: Vital Signs Temp 98.3 F 10/04/21 08:00 Pulse 92 10/04/21 10:00 Resp 19 10/04/21 10:00 BP 154/77 10/04/21 10:00 Pulse Ox 93 L 10/04/21 10:00 FiO2 45 10/03/21 12:00 Intake & Output 10/03/21 10/04/21 10/04/21 18:59 06:59 18:59 Intake Total 2074.136 672.766 255.4 Output Total 2090 1585 220 Balance -15.864 -912.234 35.4 Weight 96 kg 97.4 kg Intake: IV 550 600 120 NS 550 600 120 Intake, IV Titration 84.136 72.766 15.4 Amount Clevidipine Butyrate 25 11.534 72.766 15.4 mg In Empty Bag 1 bag @ 1 MG/HR 2 mls/hr IV .Q24H NONA Rx#:[id number] propofoL 1,000 mg In 72.602 Empty Bag 1 bag @ 5 MCG/ KG/MIN 2.517 mls/hr IV . Q24H NONA Rx#:[id number] Oral 120 Tube Feeding 1440 Output: Urine 2090 1585 220 Other: Voiding Method Indwelling Catheter Indwelling Catheter Indwelling Catheter ABP, PAP, CO, CI - Last Documented Arterial Blood Pressure 141/67 - Exam Physical Exam: Revealed a 70-year-old female on room air, sitting at a bedside chair, in no distress. Head: Atraumatic, normocephalic. HEENT:[Neck is supple.] [No neck masses.] [No thyromegaly.] [No JVD.] PERRLA, EOMI, anicteric. Chest: Clear throughout no crackles or rhonchi or wheezes Cardiac Exam: [Normal S1 and S2, no S3 gallop, no murmur.] Abdomen: [Soft, nontender, no megaly, no rebound, no guarding, normal bowel sounds.] Extremities: No clubbing edema or cyanosis, good pulses bilaterally. Neurological Exam: Alert and oriented 3 no gross focal neurologic deficit Psychiatric: Normal mood affect and normal mental status examination. Skin: No rashes. Musculoskeletal: No limitation of range of motion and no deformities. - Labs CBC & Chem 7: 10/04/21 05:00 10/04/21 05:00 Labs: Abnormal Lab Results - Last 24 Hours (Table) 10/03/21 10/03/21 10/04/21 Range/Units 17:11 20:13 00:15 RDW (11.5-15.5) % Lymphocytes # (1.0-4.8) k/uL Chloride (98-107) mmol/L Glucose (74-99) mg/dL POC Glucose (mg/dL) 144 H 216 H 218 H (70-110) mg/dL Calcium (8.4-10.2) mg/dL 10/04/21 10/04/21 10/04/21 Range/Units 05:00 05:00 05:22 RDW 15.9 H (11.5-15.5) % Lymphocytes # 0.5 L (1.0-4.8) k/uL Chloride 114 H (98-107) mmol/L Glucose 117 H (74-99) mg/dL POC Glucose (mg/dL) 118 H (70-110) mg/dL Calcium 8.1 L (8.4-10.2) mg/dL Microbiology - Last 24 Hours (Table) 10/02/21 05:51 Gram Stain - Final Sputum Sputum Culture - Final 10/02/21 05:35 Blood Culture - Preliminary Blood No Growth after 48 hours 10/02/21 05:20 Blood Culture - Preliminary Blood No Growth after 48 hours Assessment and Plan Assessment: Acute episode of mental status change and involuntary movement, possible seizure, possible CVA however based on the clinical history I believe this is more of a seizure disorder than anything else. Acute hypoxic respiratory failure secondary to above chronic iron deficiency anemia History of restless leg syndrome History of COVID-19 pneumonia History of hypothyroidism History of left total knee arthroplasty. History of depression Recommendation: Continue to monitor the patient in the ICU Continue to monitor neurologically and continue seizure precautions. Continue GI and DVT prophylaxis. EEG, and MRI are pending to be done Tuesday. Drug screen was ordered and came back positive for tricyclics and positive for marijuana. Advanced diet as tolerated We will continue to follow. Time with Patient: Less than 30
[2021-10-04 11:39] LABS: Glucose,Whole Blood 237 mg/dL (70-110)
--- NOTE | 2021-10-04 14:33 | CONS ---
CONSULTATION This is a 71-year-old lady with history of depression, hypertension and hypothyroidism who was admitted to hospital with altered mental status and subsequently had to be intubated because of concerns about the same. Neurology evaluated her and felt that patient had a subacute stroke. Patient had a similar presentation a little over a year ago, and her workup at that time for seizure disorder was negative. She underwent an echocardiogram, and I have been consulted for a transesophageal echo to definitively rule out thromboembolic CVA. There is no prior history of atrial fibrillation. This morning patient is doing well and is free of symptoms. PAST MEDICAL HISTORY: Significant for hypertension, hypothyroidism, depression. MEDICATIONS: Medications at home included Requip, Zestril, Zoloft, levothyroxine and Elavil. ALLERGIES: PENICILLIN, DEMEROL AND SULFA. FAMILY HISTORY: Nil relevant. REVIEW OF SYSTEMS: Fourteen out of 14 review of systems has been performed. Pertinents are as documented. PHYSICAL EXAMINATION: Comfortable at rest. Vital signs are stable. Chest exam reveals good air entry bilaterally. Heart exam reveals first and second heart sounds, an ejection systolic murmur in the aortic area. Abdomen is soft. Examination of extremities did not reveal any edema. Peripheral pulses are felt. LABS: Labs show a hemoglobin of 11.7, platelet count is 248, potassium is 3.6. Creatinine is 0.7. Echocardiogram shows normal LV systolic function with moderate to severe aortic regurgitation and mild mitral regurgitation. ASSESSMENT: 1. Cerebrovascular accident. Rule out cardiac source of thromboembolic phenomenon. 2. Moderate to severe aortic regurgitation. 3. Hypertension. PLAN: Will schedule the patient for a VETO tomorrow. MMODL / IJN: [id number] /
[2021-10-04 16:12] LABS: Glucose,Whole Blood 147 mg/dL (70-110)
[2021-10-04 20:50] LABS: Glucose,Whole Blood 150 mg/dL (70-110)
[2021-10-04] MEDS: FAMOTIDINE 20 MG TAB PO SCH (21:29)
--- NOTE | 2021-10-04 22:15 | P.HPIM ---
History of Present Illness H&P Date: 10/02/21 Chief Complaint: Altered mental status This is a history and physical on a 71-year-old white female with history of Covid about a year ago who has a history of chronic anemia. Came in with shortness of breath and altered mental status. The patient fallen out of bed and her tried to assist her back she was significantly confused and was flailing. She is also very diaphoretic and this was an acute change as they recently went to dinner and she was at her normal baseline mentality. The patient was so agitated that EMS was called and she was given some Versed. Past Medical History Past Medical History: Diabetes Mellitus, Hypertension, Thyroid Disorder Additional Past Medical History / Comment(s): chronic ANEMIA- pt gets iron trans. every 8-12 weeks for over 12 years. 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 culture/infection: 04/12/20 VRE MDRO Source:: Urine Past Surgical History: Hysterectomy, Joint Replacement, Orthopedic Surgery Additional Past Surgical History / Comment(s): LEFT KNEE ARTHROSCOPIC, carpal tunnel, left knee replacement, laser eye surgery Past Anesthesia/Blood Transfusion Reactions: No Reported Reaction Past Psychological History: No Psychological Hx Reported Smoking Status: Former smoker - Past Family History Mother Family Medical History: No Reported History Medications and Allergies Home Medications Medication Instructions Recorded Confirmed Type lisinopriL [Zestril] 10 mg PO DAILY 08/12/16 10/02/21 History Amitriptyline HCl [Elavil] 50 mg PO HS 03/10/20 10/02/21 History Levothyroxine Sodium 200 mcg PO DAILY 03/10/20 10/02/21 History rOPINIRole HCL [Requip] 1 mg PO TID 03/10/20 10/02/21 History Cyclobenzaprine HCl 10 mg PO TID 10 Days #30 tab 01/28/21 10/02/21 Rx Sertraline [Zoloft] 150 mg PO DAILY 10/02/21 10/02/21 History Allergies Allergy/AdvReac Type Severity Reaction Status Date / Time meperidine HCl [From Demerol] Allergy Rash/Hives Verified 10/02/21 07:51 Penicillins Allergy Rash/Hives Verified 10/02/21 07:51 Sulfa (Sulfonamide Allergy Rash/Hives Verified 10/02/21 07:51 Antibiotics) Physical Exam Vitals: Vital Signs Temp Pulse Resp BP Pulse Ox FiO2 10/02/21 15:24 45 10/02/21 14:00 65 7 L 86/52 99 10/02/21 13:00 64 20 115/68 100 10/02/21 12:00 62 20 97/53 98 45 10/02/21 11:26 45 10/02/21 11:00 67 20 133/77 97 10/02/21 10:00 68 16 138/76 96 10/02/21 08:27 82 22 133/74 95 10/02/21 08:00 97.6 F 85 132/80 95 60 10/02/21 07:48 87 132/80 96 10/02/21 07:25 60 10/02/21 07:24 93 115/73 94 L 10/02/21 07:19 98.1 F 90 26 H 125/76 96 10/02/21 06:30 99 19 114/72 98 10/02/21 06:15 98 19 120/75 97 10/02/21 06:00 102 H 20 131/87 97 10/02/21 05:48 60 10/02/21 05:45 111 H 20 120/99 97 10/02/21 05:15 118 H 21 186/102 95 100 10/02/21 05:01 100 10/02/21 05:00 121 H 20 96 10/02/21 04:29 122 H 20 168/93 97 10/02/21 04:09 98.2 F 123 H 22 202/109 92 L Intake and Output 10/02/21 10/02/21 10/02/21 06:59 14:59 22:59 Intake Total 49.467 124.380 Output Total 240 Balance 49.467 -115.620 Intake: Intake, IV Titration 49.467 124.380 Amount propofoL 1,000 mg In 49.467 124.380 Empty Bag 1 bag @ 5 MCG/ KG/MIN 2.517 mls/hr IV . Q24H [facility] Rx#:[id number] Output: Urine 240 Other: Voiding Method Indwelling Catheter Weight 83.915 kg 83.915 kg ABP, PAP, CO, CI - Last 8 Hours Arterial Blood Pressure 84/49 Arterial Blood Pressure 81/36 Arterial Blood Pressure 122/54 Arterial Blood Pressure 146/64 - Constitutional General appearance: average body habitus - EENT Eyes: EOMI - Respiratory Respiratory: bilateral: CTA - Cardiovascular Rhythm: regular Heart sounds: normal: S1, S2 Abnormal Heart Sounds: no S3 Gallop - Gastrointestinal General gastrointestinal: soft, no tenderness - Psychiatric Psychiatric: no A&O x's 3 Results CBC & Chem 7: 10/02/21 04:26 10/02/21 04:26 Labs: Abnormal Lab Results - Last 24 Hours (Table) 10/02/21 10/02/21 10/02/21 Range/Units 04:18 04:26 04:26 WBC 16.4 H (3.8-10.6) k/uL RDW 15.9 H (11.5-15.5) % Neutrophils # 14.4 H (1.3-7.7) k/uL Lymphocytes # 0.9 L (1.0-4.8) k/uL APTT (22.0-30.0) sec D-Dimer (<0.60) mg/L FEU ABG pH (7.35-7.45) ABG pCO2 (35-45) mmHg ABG pO2 (83-108) mmHg ABG HCO3 (21-25) mmol/L ABG O2 Saturation (94-97) % VBG pCO2 (37-51) mmHg VBG HCO3 (24-28) mmol/L Chloride 109 H (98-107) mmol/L Carbon Dioxide 20 L (22-30) mmol/L BUN 27 H (7-17) mg/dL Creatinine 1.30 H (0.52-1.04) mg/dL Glucose 390 H (74-99) mg/dL POC Glucose (mg/dL) 390 H (70-110) mg/dL Plasma Lactic Acid [place] (0.7-2.0) mmol/L Ur Specific [place] (1.001-1.035) Urine Protein (Negative) Urine Glucose (UA) (Negative) 10/02/21 10/02/21 10/02/21 Range/Units 04:26 04:26 04:26 WBC (3.8-10.6) k/uL RDW (11.5-15.5) % Neutrophils # (1.3-7.7) k/uL Lymphocytes # (1.0-4.8) k/uL APTT 21.9 L (22.0-30.0) sec D-Dimer 2.66 H (<0.60) mg/L FEU ABG pH (7.35-7.45) ABG pCO2 (35-45) mmHg ABG pO2 (83-108) mmHg ABG HCO3 (21-25) mmol/L ABG O2 Saturation (94-97) % VBG pCO2 35 L (37-51) mmHg VBG HCO3 20 L (24-28) mmol/L Chloride (98-107) mmol/L Carbon Dioxide (22-30) mmol/L BUN (7-17) mg/dL Creatinine (0.52-1.04) mg/dL Glucose (74-99) mg/dL POC Glucose (mg/dL) (70-110) mg/dL Plasma Lactic Acid [place] 2.1 H* (0.7-2.0) mmol/L Ur Specific [place] (1.001-1.035) Urine Protein (Negative) Urine Glucose (UA) (Negative) 10/02/21 10/02/21 10/02/21 Range/Units 05:41 06:55 09:12 WBC (3.8-10.6) k/uL RDW (11.5-15.5) % Neutrophils # (1.3-7.7) k/uL Lymphocytes # (1.0-4.8) k/uL APTT (22.0-30.0) sec D-Dimer (<0.60) mg/L FEU ABG pH 7.20 L (7.35-7.45) ABG pCO2 52 H (35-45) mmHg ABG pO2 376 H (83-108) mmHg ABG HCO3 20 L (21-25) mmol/L ABG O2 Saturation 99.9 H (94-97) % VBG pCO2 (37-51) mmHg VBG HCO3 (24-28) mmol/L Chloride (98-107) mmol/L Carbon Dioxide (22-30) mmol/L BUN (7-17) mg/dL Creatinine (0.52-1.04) mg/dL Glucose (74-99) mg/dL POC Glucose (mg/dL) 250 H (70-110) mg/dL Plasma Lactic Acid [place] (0.7-2.0) mmol/L Ur Specific [place] >1.050 H (1.001-1.035) Urine Protein Trace H (Negative) Urine Glucose (UA) 3+ H (Negative) 10/02/21 Range/Units 11:33 WBC (3.8-10.6) k/uL RDW (11.5-15.5) % Neutrophils # (1.3-7.7) k/uL Lymphocytes # (1.0-4.8) k/uL APTT (22.0-30.0) sec D-Dimer (<0.60) mg/L FEU ABG pH (7.35-7.45) ABG pCO2 (35-45) mmHg ABG pO2 (83-108) mmHg ABG HCO3 (21-25) mmol/L ABG O2 Saturation (94-97) % VBG pCO2 (37-51) mmHg VBG HCO3 (24-28) mmol/L Chloride (98-107) mmol/L Carbon Dioxide (22-30) mmol/L BUN (7-17) mg/dL Creatinine (0.52-1.04) mg/dL Glucose (74-99) mg/dL POC Glucose (mg/dL) 211 H (70-110) mg/dL Plasma Lactic Acid [place] (0.7-2.0) mmol/L Ur Specific [place] (1.001-1.035) Urine Protein (Negative) Urine Glucose (UA) (Negative) Microbiology - Last 24 Hours (Table) 10/02/21 05:51 Sputum Culture - Preliminary Sputum Thrombosis Risk Factor Assmnt - Choose All That Apply Any of the Below Risk Factors Present?: Yes Each Factor Represents 1 point: Medical pt on bed rest, Oral contraceptives or hormone replacement therapy Each Risk Factor Represents 2 Points: Age 61-74 years Thrombosis Risk Factor Assessment Total Risk Factor Score: 4 Thrombosis Risk Factor Assessment Level: Moderate Risk Assessment and Plan (1) Altered mental status Current Visit: No Status: Acute Code(s): R41.82 - ALTERED MENTAL STATUS, UNSPECIFIED SNOMED Code(s): 040841814 (2) Fibromyalgia Current Visit: No Status: Acute Code(s): M79.7 - FIBROMYALGIA SNOMED Code(s): 016963708 (3) Generalized weakness Current Visit: No Status: Acute Code(s): R53.1 - WEAKNESS SNOMED Code(s): 73395221 (4) Immobility Current Visit: No Status: Acute Code(s): Z74.09 - OTHER REDUCED MOBILITY SNOMED Code(s): 106855188 Plan: The patient is to be transferred to ICU with paint pourer follow-up. Supportive care with appropriate airway element. Check appropriate DVT and GI for prophylaxis. Continue appropriate mechanical ventilation per intensive care. Check CBC and CMP in a.m. This episode is very similar to something that she had about a year ago. Question diphenhydramine element at that point. No history of that for this hospitalization.
--- NOTE | 2021-10-04 22:50 | P.PN ---
Subjective From records 71-year-old female was born emergency department with altered mental status 0 concerned about seizures. Patient was found on the floor with seizure-like activity with the altered mental status and showed progression presently actually had lost consciousness no bowel or bladder incontinence patient was subsequent about. Patient was subsequently intubated because of altered mental status patient had a CT of the head which as per the neurologist showed possible subacute stroke involving the right anterior limb of the patient is presently mechanically intubated unable to obtain any history from the patient patient was in acute renal failure which resolved at this time. patient is on tricyclic antidepressants and not pulmonology believed patient had seizure from overdose and tricyclic antidepressants. Patient on mechanical related to this time patient is intubated because of altered consciousness. Patient had a CT angios the head and neck which did not show any significant abnormality subjective: 10/04/2021 This is a pleasant 71 result female who presents with altered mental status, she's been monitored closely in the ICU, her mentation is back to baseline and today she is awake and alert, she looks lethargic but she answers questions and follows commands appropriately. She denies any weakness or numbness. No blurred vision or slurred speech. No chest pain or dyspnea. She's been complaining of from some headache it's/10 this morning which is responded to Tylenol. Quick catheter in place. On IV fluids at 50 mL/h and call the practice 4 mg/h this morning for blood pressure control. She has CT of the brain which showing possible subacute infarct on the right anterior limb of the internal capsule which may explain her altered mental status. Also could be due to metabolic encephalopathy. Currently she is on aspirin 325 mg MRI of the brain and EEG are pending on Tuesday with urology team for the case alvaro gaitan. Echo showed ejection fraction of 55-60% with moderate to severe aortic regurgitation and mitral regurgitation, and the recommended VETO to rule out intracardiac source of thromboembolic lesion of the brain. Cardiology are planning for a VETO tomorrow. Continue with Norvasc and Pepcid and Lovenox. Chest x-ray showing large hiatal hernia but no consolidation. Carotid duplex is negative. CT of the chest is negative for PE and no aortic dissection but large hiatal hernia. Objective - Vital Signs Vital signs: Vital Signs Temp 98.3 F 10/04/21 08:00 Pulse 92 10/04/21 09:00 Resp 17 06/19/22 09:00 BP 154/77 10/04/21 09:00 Pulse Ox 94 L 10/04/21 09:00 FiO2 45 10/03/21 12:00 Intake & Output 10/03/21 10/04/21 10/04/21 18:59 06:59 18:59 Intake Total 2074.136 672.766 115.4 Output Total 2090 1585 170 Balance -15.864 -912.234 -54.6 Weight 96 kg 97.4 kg Intake: IV 550 600 100 NS 550 600 100 Intake, IV Titration 84.136 72.766 15.4 Amount Clevidipine Butyrate 25 11.534 72.766 15.4 mg In Empty Bag 1 bag @ 1 MG/HR 2 mls/hr IV .Q24H [facility] Rx#:[id number] propofoL 1,000 mg In 72.602 Empty Bag 1 bag @ 5 MCG/ KG/MIN 2.517 mls/hr IV . Q24H [facility] Rx#:[id number] Tube Feeding 1440 Output: Urine 2089 1585 170 Other: Voiding Method Indwelling Catheter Indwelling Catheter Indwelling Catheter ABP, PAP, CO, CI - Last Documented Arterial Blood Pressure 137/74 - Exam GENERAL: The patient is alert and oriented x3, not in any acute distress. Well developed, well nourished. HEENT: Pupils are round and equally reacting to light. EOMI. No scleral icterus. No conjunctival pallor. Normocephalic, atraumatic. No pharyngeal erythema. No thyromegaly. CARDIOVASCULAR: S1 and S2 present. No murmurs, rubs, or gallops. PULMONARY: Chest is clear to auscultation, no wheezing or crackles. ABDOMEN: Soft, nontender, nondistended, normoactive bowel sounds. No palpable organomegaly. MUSCULOSKELETAL: No joint swelling or deformity. EXTREMITIES: No cyanosis, clubbing, or pedal edema. NEUROLOGICAL: Gross neurological examination did not reveal any focal deficits. SKIN: No rashes. no petechiae. - Labs CBC & Chem 7: 10/04/21 05:00 10/04/21 05:00 Labs: Abnormal Lab Results - Last 24 Hours (Table) 10/03/21 10/03/21 10/04/21 Range/Units 17:11 20:13 00:15 RDW (11.5-15.5) % Lymphocytes # (1.0-4.8) k/uL Chloride (98-107) mmol/L Glucose (74-99) mg/dL POC Glucose (mg/dL) 144 H 216 H 218 H (70-110) mg/dL Calcium (8.4-10.2) mg/dL 10/04/21 10/04/21 10/04/21 Range/Units 05:00 05:00 05:22 RDW 15.9 H (11.5-15.5) % Lymphocytes # 0.5 L (1.0-4.8) k/uL Chloride 114 H (98-107) mmol/L Glucose 117 H (74-99) mg/dL POC Glucose (mg/dL) 118 H (70-110) mg/dL Calcium 8.1 L (8.4-10.2) mg/dL Microbiology - Last 24 Hours (Table) 10/02/21 05:35 Blood Culture - Preliminary Blood No Growth after 48 hours 10/02/21 05:20 Blood Culture - Preliminary Blood No Growth after 48 hours Assessment and Plan Assessment: - Altered mental status, altered consciousness: Secondary to 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 Currently kept on aspirin, Currently kept on aspirin. Rule out seizure. EEG and MRI of the brain pending on Tuesday. Also cartilage team are planning for a VETO on Tuesday for possible cardiac source of emboli. -Hypertensive urgency on, calviprex drip and Norvasc -Severe aortic regurgitation and mitral regurgitation - Large hiatal hernia -Restless leg syndrome -Hypothyroidism DVT prophylaxis: Lovenox GI prophylaxis: Pepcid Dr. Aleman will resume the care of the patient tomorrow
[2021-10-05] MEDS: LEVOTHYROXINE 100 MCG TAB PO SCH (06:26)
[2021-10-05] MEDS: CLEVIDIPINE BUTYRATE 25 MG in EMPTY BAG 1 BAG IV SCH ×2 (06:30→09:20)
[2021-10-05 06:48] LABS: Glucose,Whole Blood 166 mg/dL (70-110)
[2021-10-05] MEDS: INSULIN ASPART (NovoLOG) 100 UNIT/ML VIAL SQ SCH ×4 (06:58→21:17)
[2021-10-05 07:00] LABS: Basophils # (A) 0.1 k/uL (0-0.2); Basophils % (A) 1 %; Eosinophils # (A) 0.4 k/uL (0-0.7); Eosinophils % (A) 5 %; HCT 36.5 % (34.0-46.0); HGB 12.2 gm/dL (11.4-16.0); Lymphocytes # (A) 0.8 k/uL (1.0-4.8); Lymphocytes % (A) 9 %; MCH 30.5 pg (25.0-35.0); MCHC 33.4 g/dL (31.0-37.0); MCV 91.2 fL (80.0-100.0); Mean Platelet Volume 8.9; Monocytes # (A) 0.5 k/uL (0-1.0); Monocytes % (A) 6 %; Neutrophils # (A) 6.7 k/uL (1.3-7.7); Neutrophils % (A) 78 %; Platelet Count 246 k/uL (150-450); RDW 15.1 % (11.5-15.5); WBC 8.6 k/uL (3.8-10.6)
[2021-10-05 07:03] LABS: Potassium 3.8 mmol/L (3.5-5.1)
[2021-10-05 07:04] LABS: African American GFR (CKD) >90 (>60 ml/min/1.73 sqM); Anion Gap 6 mmol/L; Blood Urea Nitrogen 11 mg/dL (7-17); Calcium 8.2 mg/dL (8.4-10.2); Carbon Dioxide 23 mmol/L (22-30); Chloride 109 mmol/L (98-107); Glucose 158 mg/dL (74-99); Non-African American GFR(CKD) 83 (>60 ml/min/1.73 sqM); Sodium 138 mmol/L (137-145)
--- NOTE | 2021-10-05 07:17 | XR ---
EXAMINATION TYPE: XR chest 1V portable DATE OF EXAM: 10/05/2021 COMPARISON: 10/04/2021 INDICATION: Tube placement TECHNIQUE: Single frontal view of the chest is obtained. FINDINGS: The heart size is enlarged. The pulmonary vasculature is normal. Minimal increased bibasilar infiltrates may be present. Correlate for subsegmental atelectasis. There is elevation of the left diaphragm. Right central venous catheters present with the tip in the deep right atrium. No pneumothorax is evident IMPRESSION: 1. Mild bibasilar infiltrates. Correlate for subsegmental atelectasis.
--- NOTE | 2021-10-05 08:02 | P.PN ---
Subjective Progress Note Date: 10/05/21 Principal diagnosis: Change in mental status This is a 71-year-old female patient with a past medical history significant for hypertension and dyslipidemia who was admitted to the hospital with change in mental status with differential diagnosis of seizure versus stroke. She un derwent a workup including an echo which revealed normal LV function was moderate to severe aortic insufficiency and carotid duplex study which showed intermediate disease bilaterally only. We consulted to see the patient to rule out cardiac source of embolization and the patient is in process of having transesophageal echocardiogram later on today. Objective - Vital Signs Vital signs: Vital Signs Temp 97.9 F 10/05/21 04:00 Pulse 82 10/05/21 07:00 Resp 20 10/05/21 07:00 BP 149/87 10/05/21 07:00 Pulse Ox 92 L 10/05/21 07:00 FiO2 45 10/03/21 12:00 Intake & Output 10/04/21 10/05/21 10/05/21 18:59 06:59 18:59 Intake Total 561.734 272.333 Output Total 825 760 Balance -263.266 -487.667 Weight 97.3 kg Intake: IV 280 240 NS 280 240 Intake, IV Titration 41.734 32.333 Amount Clevidipine Butyrate 25 41.734 32.333 mg In Empty Bag 1 bag @ 1 MG/HR 2 mls/hr IV .Q24H [facility] Rx#:[id number] Oral 240 Output: Urine 825 760 Other: Voiding Method Indwelling Catheter Indwelling Catheter # Bowel Movements 1 ABP, PAP, CO, CI - Last Documented Arterial Blood Pressure 147/67 - Constitutional General appearance: Present: no acute distress - Respiratory Respiratory: bilateral: diminished - Cardiovascular Rhythm: regular Heart sounds: normal: S1, S2 - Labs CBC & Chem 7: 10/05/21 05:00 10/05/21 05:00 Labs: Abnormal Lab Results - Last 24 Hours (Table) 10/04/21 10/04/21 10/04/21 Range/Units 11:37 16:01 20:48 Lymphocytes # (1.0-4.8) k/uL Chloride (98-107) mmol/L Glucose (74-99) mg/dL POC Glucose (mg/dL) 237 H 147 H 150 H (70-110) mg/dL Calcium (8.4-10.2) mg/dL 10/05/21 10/05/21 10/05/21 Range/Units 05:00 05:00 06:46 Lymphocytes # 0.8 L (1.0-4.8) k/uL Chloride 109 H (98-107) mmol/L Glucose 158 H (74-99) mg/dL POC Glucose (mg/dL) 166 H (70-110) mg/dL Calcium 8.2 L (8.4-10.2) mg/dL Microbiology - Last 24 Hours (Table) 10/02/21 05:35 Blood Culture - Preliminary Blood No Growth after 72 hours 10/02/21 05:20 Blood Culture - Preliminary Blood No Growth after 72 hours 10/02/21 05:51 Gram Stain - Final Sputum Sputum Culture - Final Assessment and Plan Assessment: Assessment #1 change in mental status #2 possible CVA #3 possible seizure #4 hypertension #5 dyslipidemia #6 valvular heart disease Plan #1 continue to wean the patient from IV calcium channel lopez #2 transesophageal echocardiogram to be performed later on today #3 further recommendation to follow
--- NOTE | 2021-10-05 08:35 | P.PN ---
Subjective Progress Note Date: 10/05/21 Principal diagnosis: Anemia with altered mental status. Diabetes. A1c was 9.0. We will go ahead and start basal insulin. Otherwise patient is now back to normal lucidity per no overt pain stated. Objective - Vital Signs Vital signs: Vital Signs Temp 97.9 F 10/05/21 08:00 Pulse 81 10/05/21 08:00 Resp 23 10/05/21 08:00 BP 150/80 10/05/21 08:00 Pulse Ox 92 L 10/05/21 08:00 FiO2 45 10/03/21 12:00 Intake & Output 10/04/21 10/05/21 10/05/21 18:59 06:59 18:59 Intake Total 561.734 272.333 20 Output Total 825 760 100 Balance -263.266 -487.667 -80 Weight 97.3 kg Intake: IV 280 240 20 NS 280 240 20 Intake, IV Titration 41.734 32.333 Amount Clevidipine Butyrate 25 41.734 32.333 mg In Empty Bag 1 bag @ 1 MG/HR 2 mls/hr IV .Q24H [facility] Rx#:[id number] Oral 240 Output: Urine 825 760 100 Other: Voiding Method Indwelling Catheter Indwelling Catheter # Bowel Movements 1 ABP, PAP, CO, CI - Last Documented Arterial Blood Pressure 154/77 - Constitutional General appearance: Present: average body habitus - Neck Neck: Absent: lymphadenopathy - Cardiovascular Rhythm: irregularly irregular Heart sounds: normal: S1, S2 Abnormal Heart Sounds: Absent: S3 Gallop - Gastrointestinal General gastrointestinal: Present: soft. Absent: tenderness - Psychiatric Psychiatric: Present: A&O x's 3 - Labs CBC & Chem 7: 10/05/21 05:00 10/05/21 05:00 Labs: Abnormal Lab Results - Last 24 Hours (Table) 10/04/21 10/04/21 10/04/21 Range/Units 11:37 16:01 20:48 Lymphocytes # (1.0-4.8) k/uL Chloride (98-107) mmol/L Glucose (74-99) mg/dL POC Glucose (mg/dL) 237 H 147 H 150 H (70-110) mg/dL Calcium (8.4-10.2) mg/dL 10/05/21 10/05/21 10/05/21 Range/Units 05:00 05:00 06:46 Lymphocytes # 0.8 L (1.0-4.8) k/uL Chloride 109 H (98-107) mmol/L Glucose 158 H (74-99) mg/dL POC Glucose (mg/dL) 166 H (70-110) mg/dL Calcium 8.2 L (8.4-10.2) mg/dL Microbiology - Last 24 Hours (Table) 10/02/21 05:35 Blood Culture - Preliminary Blood No Growth after 72 hours 10/02/21 05:20 Blood Culture - Preliminary Blood No Growth after 72 hours 10/02/21 05:51 Gram Stain - Final Sputum Sputum Culture - Final Assessment and Plan (1) Altered mental status Current Visit: Yes Status: Acute Code(s): R41.82 - ALTERED MENTAL STATUS, UNSPECIFIED SNOMED Code(s): 953692252 (2) Fibromyalgia Current Visit: No Status: Acute Code(s): M79.7 - FIBROMYALGIA SNOMED Code(s): 627801975 (3) Generalized weakness Current Visit: No Status: Acute Code(s): R53.1 - WEAKNESS SNOMED Code(s): 43658352 (4) Immobility Current Visit: No Status: Acute Code(s): Z74.09 - OTHER REDUCED MOBILITY SNOMED Code(s): 549234894 Plan: The patient is back to baseline cognition. Anemia. Diabetes Transesophageal echo is pending.
--- NOTE | 2021-10-05 10:21 | P.PN ---
Subjective Progress Note Date: 10/05/21 Principal diagnosis: CVA/seizure disorder. Altered mental status and acute hypoxic respiratory failure possible seizure/CVA. This is a 71-year-old female admitted through the emergency room early this morning. Patient was admitted to the ICU because upon arrival to the ER, deisy ent had to be intubated and mechanically ventilated. 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 However the patient was noted to be quite confused, and she was attempting to draw deep breaths but could not breathe adequately. He also noted that the patient was kicking out and flailing on the bed. Patient was also noted to be very sweaty. according to , few hours earlier, the patient was just fine when they ate supper in the evening. No history of drug abuse. No history of seizures. However the patient had a similar presentation in September of 2020, patient presented back then with similar presentation, and she required intubation and mechanical ventilation. Back then, the patient had extensive workup by neurology, and we felt back then that the patient may have overdosed on her antidepressant. Workup for seizures was negative. Workup for metabolic encephalopathy was negative. Patient was eventually extubated within one day, and she was discharged home on 10/10/2020. Patient was seen by neurology back then, and her EEG was negative for seizure activity. She had basically normal neurological workup. Including MRI of the brain patient is now on mechanical ventilation, she is on assist control rate of 16 and a considerable up to 20 times volume 400 FiO2 45% PEEP of 5. ABG earlier showed a pO2 of 376 pCO2 [address] of the brain questioned subacute CVA. Reevaluated today on 10/03/21, patient remains in the ICU, intubated and mechanically ventilated. Patient is on propofol at 30 mcg/kg/h, he is fully sedated, and I have recommended that we stop the sedation in order to assess mental status today, and possibly give the patient a trial of weaning. She is on assist control rate of 20, volume 400 FiO2 45% PEEP of 5 ABG showed a pO2 of 111 pCO2 41 pH of 7.32. Chest x-ray continues to show left lower lobe atelectasis and large hiatal hernia with cardiomegaly. CBC is relatively unremarkable WBC count is 7.1 hemoglobin is 10.7. Basic metabolic profile is normal, renal profile is normal. Blood pressure is a bit elevated, will start the patient on clevidipine drip, patient remains on GI and DVT prophylaxis, and enteral feeding is yet to be started. Carotid Doppler showed no significant stenosis. CT of the head showed possible subacute stroke involving the right anterior limb of internal capsule, EEG is pending, patient was seen by neurology on consultation, still doubting seizures, however the clinical history is quite suggestive of seizure unless for otherwise Reevaluated today on 10/04/21, patient remains in the ICU, she was extubated yesterday, tolerated the extubation well. Patient is on room air, O2 saturations 94%. She is on Klonopin proximal drip for elevated blood pressure, presently at 2 mg per hour. I added amlodipine and I will likely discontinue Cleviprex drip. Patient is alert, oriented 3, she has no focal neurologic deficit, she is scheduled to have MRI and EEG on Tuesday. Labs today showed rel atively normal CBC, normal electrolytes, normal renal profile chest x-ray showed large left hiatal hernia otherwise unremarkable. No evidence of pneumonia. Progress note dated 10/05/2021. The patient is again seen today in room 265. She was admitted to the hospital on October 02, with a history of possible CVA versus seizure disorder. She was intubated on the , and subsequently extubated on October 03. Currently, she is on room air. She's getting saline at KVO, and Cleveprex at 4 mg an hour. We will bump up her dose of lisinopril today, to wean her off the Cleveprex. She is resting comfortably. She has no complaints. She apparently had a similar episode like this, about a year ago. White count hemoglobin hematocrit and platelet count all normal. Sodium 138, potassium 3.8, chlorides 109, CO2 23, BUN 11, creatinine 0.73. Calcium 8.2. Chest x-ray shows some bibasilar atelectasis. Objective - Vital Signs Vital signs: Vital Signs Temp 97.9 F 10/05/21 08:00 Pulse 84 10/05/21 09:00 Resp 23 10/05/21 09:00 BP 137/75 10/05/21 09:00 Pulse Ox 92 L 10/05/21 09:00 FiO2 45 10/03/21 12:00 Intake & Output 10/04/21 10/05/21 10/05/21 18:59 06:59 18:59 Intake Total 561.734 272.333 74 Output Total 825 760 130 Balance -263.266 -487.667 -56 Weight 97.3 kg Intake: IV 280 240 40 NS 280 240 40 Intake, IV Titration 41.734 32.333 34 Amount Clevidipine Butyrate 25 41.734 32.333 34 mg In Empty Bag 1 bag @ 1 MG/HR 2 mls/hr IV .Q24H [facility] Rx#:[id number] Oral 240 Output: Urine 825 760 130 Other: Voiding Method Indwelling Catheter Indwelling Catheter Indwelling Catheter # Bowel Movements 1 ABP, PAP, CO, CI - Last Documented Arterial Blood Pressure 155/69 - Exam No acute distress, oriented 3. HEENT examination is grossly unremarkable. Neck supple. Full range of motion. No adenopathy thyromegaly or neck vein distention. Cardiovascular examination reveals regular rhythm rate. S1-S2 normal. No S3 or S4. No discernible murmur noted. Heart rate 84 bpm. Lungs reveal clear breath sounds. Breath sounds are equal bilaterally. No adventitious lung sounds including wheezes rhonchi or crackles. Room air saturations 92%. Abdomen soft bowel sounds are heard. No masses or tenderness. Extremities are intact. No cyanosis clubbing or edema. Skin is without rash or lesion. Neurologic examination is brief but nonfocal. - Labs CBC & Chem 7: 10/05/21 05:00 10/05/21 05:00 Labs: Abnormal Lab Results - Last 24 Hours (Table) 10/04/21 10/04/21 10/04/21 Range/Units 11:37 16:01 20:48 Lymphocytes # (1.0-4.8) k/uL Chloride (98-107) mmol/L Glucose (74-99) mg/dL POC Glucose (mg/dL) 237 H 147 H 150 H (70-110) mg/dL Calcium (8.4-10.2) mg/dL 10/05/21 10/05/21 10/05/21 Range/Units 05:00 05:00 06:46 Lymphocytes # 0.8 L (1.0-4.8) k/uL Chloride 109 H (98-107) mmol/L Glucose 158 H (74-99) mg/dL POC Glucose (mg/dL) 166 H (70-110) mg/dL Calcium 8.2 L (8.4-10.2) mg/dL Microbiology - Last 24 Hours (Table) 10/02/21 05:35 Blood Culture - Preliminary Blood No Growth after 72 hours 10/02/21 05:20 Blood Culture - Preliminary Blood No Growth after 72 hours 10/02/21 05:51 Gram Stain - Final Sputum Sputum Culture - Final Assessment and Plan Assessment: Acute mental status changes, secondary to possible seizure versus CVA. Acute hypoxemic respiratory failure, requiring intubation on October 02, and subsequent extubation on October 03. Chronic iron deficiency anemia. History of restless leg syndrome. History of coronavirus associated pneumonia. History of hypothyroidism. History of depression. Left total knee arthroplasty. Plan: Plan dated 10/05/2021. The lisinopril will be bumped up, so that we can wean her off of Cleveprex. She does remain on amlodipine, 5 mg twice a day. We continued GI and DVT prophylaxis. The patient has an EEG, and MRI pending. Additional recommendations and suggestions are forthcoming. Prognosis is guarded. The patient can be considered for possible transfer out of the intensive care unit. We will continue to follow the patient, and make recommendations where appropriate. Time with Patient: Less than 30
[2021-10-05] MEDS ORDERED: fentaNYL (PF) 50 MCG/ML 2 ML AMP ONE (10:29)
[2021-10-05] MEDS ORDERED: MIDAZOLAM 2 MG/2 ML VIAL IV STA (10:54)
[2021-10-05] MEDS: ENOXAPARIN 40 MG/0.4 ML SYRINGE SQ SCH (11:23)
[2021-10-05] MEDS: amLODIPine 5 MG TAB PO SCH ×2 (11:28→21:17)
[2021-10-05] MEDS: FAMOTIDINE 20 MG TAB PO SCH ×2 (11:28→21:17)
[2021-10-05] MEDS: ASPIRIN 325 MG TAB PO SCH (11:28)
[2021-10-05] MEDS: ATORVASTATIN 40 MG TAB PO SCH (11:28)
[2021-10-05] MEDS: lisinopriL 20 MG TAB PO SCH (11:29)
[2021-10-05] MEDS ORDERED: MIDAZOLAM 1 MG/ML 5 ML VIAL IV STA (11:30)
[2021-10-05 12:06] LABS: Glucose,Whole Blood 115 mg/dL (70-110)
[2021-10-05 12:30] VITALS: BMI 34.6
--- NOTE | 2021-10-05 12:31 | ECHOT ---
TRANSESOPHAGEAL ECHOCARDIOGRAM TRANSESOPHAGEAL ECHO: INDICATION: CVA, rule out cardiac source of thromboembolic phenomenon. PROCEDURE NOTE: After obtaining informed consent, transesophageal echocardiogram was performed in left lateral position using an Omni plane probe. Local and IV sedation were obtained using 2 mg of Versed and 25 mcg of fentanyl. The patient tolerated the procedure well without any obvious immediate complications. A 2D color Doppler and spectral analysis had been performed. The patient received moderate conscious sedation. Total sedation time was 10 minutes. FINDINGS: 1. There is no intracardiac thrombus within the left atrial appendage, left atrium, right atrium, right ventricle or left ventricle. 2. Left ventricle has normal size and systolic function. 3. Left atrium appears mildly enlarged. 4. Mitral valve is anatomically normal. There is mild mitral regurgitation noted. 5. Aortic valve is a 3-leaflet valve. There is mild aortic regurgitation. 6. Aortic root measures within normal limits. There is mild tricuspid regurgitation. Interatrial septum shows lipomatosis hypertrophy. There is no evidence of left-to- right shunt by color-flow Doppler or [id number] shunt by agitated saline contrast study. CONCLUSION: No intracardiac thrombus. Normal LV function. No evidence of shunting across the interatrial septum. MMODL / IJN: [id number] /
--- NOTE | 2021-10-05 15:05 | EEG ---
ELECTROENCEPHALOGRAM REPORT DATE OF SERVICE: 10/05/2021. CLINICAL HISTORY: This is a 71-year-old woman with reported altered mental status and episode of flailing of all extremities. The video EEG is obtained to evaluate for seizure epileptiform activity. RELEVANT MEDICATION: The patient is not on any antiepileptic drug. EEG TYPE: A routine 21 channel EEG is performed with video using the 10/20 electrode placement system. DESCRIPTION: Awake state is only obtained. During awake state, the posterior-dominant rhythm consists of low to moderate voltage of 9 hertz that is well modulated and well sustained. There is no sleep architecture seen. Interictal and ictal is none. ACTIVATION PROCEDURE: Photic stimulation did not evoke a posterior driving response. There is no abnormality during the photic stimulation. Hyperventilation is not performed. CLINICAL INTERPRETATION: This is a normal routine EEG. There is no focal slowing, epileptiform discharges or seizure on the EEG. Clinical correlation is recommended. RECOMMENDATION: If there continues to be any concern for seizure, recommend an ambulatory EEG as an outpatient. MMSO / YUNGN: [id number] / HÉCTOR
--- NOTE | 2021-10-05 15:09 | MR ---
MR brain without contrast HISTORY: Cerebrovascular accident Multiplanar multisequence imaging obtained through the brain Correlation CT brain 10/02/2021 There is restricted diffusion involving the garces radiata on the right, corresponding hyperintensity is present on inversion recovery T2-weighted sequences. Scattered and confluent hyperintensities pre sent within the deep white matter in the periventricular, pericallosal, subcortical regions bilateral ly on T2 and inversion recovery sequence. There is no hemorrhage or hydrocephalus. Cortical atrophy i s present. Inflammatory changes are present in the maxillary sinuses right greater than left, ethmoid air cells, frontal sinus. The cerebellopontine angles, corpus callosum, pituitary, cervical medullar y junction are within normal limits. Degenerative disc changes noted incidentally in the cervical spi ne. Orbits show symmetric appearance. There are expected vascular flow voids. IMPRESSION: Subacute infarct as described. Sinus disease. Age-related changes of atrophy and chronic small vessel ischemia.
[2021-10-05 16:34] LABS: Glucose,Whole Blood 171 mg/dL (70-110)
[2021-10-05] MEDS: INSULIN DETEMIR (LEVEMIR) 100 UNIT/ML SYR SQ SCH (16:38)
[2021-10-05] MEDS: LABETALOL 5 MG/ML VIAL MDV IVP PRN ×4 (17:45→23:41)
--- NOTE | 2021-10-05 18:23 | P.PN ---
Subjective Progress Note Date: 10/05/21 I'm seeing the patient for the first time during this admission. It seems that the patient is getting workup for stroke and is felt by Dr. Montes the patient has subacute stroke involving the right anterior limb of internal capsule and MRI of the brain is pending as well as a VETO. The patient had episodes in the past of flailing extremities with altered mental status and patient had multiple EEGs which was negative and ICU as ordered a repeat EEG during this hospital visit. Please refer to Dr. Montes's note for further details. Patient feels she is at baseline and denies of any focal weakness. Per nurse no further flailing of extremities. Objective - Vital Signs Vital signs: Vital Signs Temp 97.9 F 10/05/21 08:00 Pulse 84 10/05/21 10:00 Resp 24 10/05/21 10:00 BP 154/79 10/05/21 10:00 Pulse Ox 91 L 10/05/21 10:00 FiO2 45 10/03/21 12:00 Intake & Output 10/04/21 10/05/21 10/05/21 18:59 06:59 18:59 Intake Total 561.734 272.333 74 Output Total 825 760 130 Balance -263.266 -487.667 -56 Weight 97.3 kg Intake: IV 280 240 40 NS 280 240 40 Intake, IV Titration 41.734 32.333 34 Amount Clevidipine Butyrate 25 41.734 32.333 34 mg In Empty Bag 1 bag @ 1 MG/HR 2 mls/hr IV .Q24H [facility] Rx#:[id number] Oral 240 Output: Urine 825 760 130 Other: Voiding Method Indwelling Catheter Indwelling Catheter Indwelling Catheter # Bowel Movements 1 ABP, PAP, CO, CI - Last Documented Arterial Blood Pressure 158/67 - Exam GENERAL: The patient is lying in bed and is not in acute distress. NEUROLOGICAL: Higher mental function: The patient is awake, alert, oriented to self, place and time. Patient is following commands. No aphasia and no neglect. Cranial nerves: The pupils are round, equal and reactive to light and accommodation. Visual grant are full to confrontation throughout. Extraocular movement is intact no nystagmus is noted. Facial sensation is normal to touch throughout. The facial strength is normal throughout. Tongue is midline and moved [id number] without any difficulty. No dysarthria is noted. Shoulder shrug is normal bilaterally. Motor: The strength is 5 over 5 throughout. Normal tone and bulk. Cerebellum: Normal finger to nose bilaterally. Sensation: Sensation is normal to touch throughout. - Labs CBC & Chem 7: 10/05/21 05:00 10/05/21 05:00 Labs: Abnormal Lab Results - Last 24 Hours (Table) 10/04/21 10/04/21 10/04/21 Range/Units 11:37 16:01 20:48 Lymphocytes # (1.0-4.8) k/uL Chloride (98-107) mmol/L Glucose (74-99) mg/dL POC Glucose (mg/dL) 237 H 147 H 150 H (70-110) mg/dL Calcium (8.4-10.2) mg/dL 10/05/21 10/05/21 10/05/21 Range/Units 05:00 05:00 06:46 Lymphocytes # 0.8 L (1.0-4.8) k/uL Chloride 109 H (98-107) mmol/L Glucose 158 H (74-99) mg/dL POC Glucose (mg/dL) 166 H (70-110) mg/dL Calcium 8.2 L (8.4-10.2) mg/dL Microbiology - Last 24 Hours (Table) 10/02/21 05:35 Blood Culture - Preliminary Blood No Growth after 72 hours 10/02/21 05:20 Blood Culture - Preliminary Blood No Growth after 72 hours 10/02/21 05:51 Gram Stain - Final Sputum Sputum Culture - Final Assessment and Plan Assessment: * Probable subacute stroke involving right anterior limb of internal capsu le/caudate. * Altered mental status, possible metabolic encephalopathy. Patient had similar presentation of altered mental status, and flailing of extremities in the past. Patient had multiple EEGs performed, that was negative for seizures. * Acute respiratory failure, on mechanical ventilation. Status post extubation. * Diabetes, uncontrolled (new onset) * Hyperlipidemia * Hypertension * Cervical spondylosis * Restless leg syndrome * Hypothyroidism * History of left knee replacement. Plan: * MRI brain is pending to evaluate for acute/subacute stroke. * Carotid Doppler revealed less than 50% stenosis of bilateral ICA. Antegrade flow in both vertebral arteries. * Patient's CTA of head and neck performed a year ago was negative for any stenosis. * 2-D echo with bubble study revealed normal left ventricular systolic function, moderate to severe aortic regurgitation and mild MR. Cardiology is consulted for VETO per Dr. Kerr to rule out intracardiac source for thromboembolic CVA. * Patient's hemoglobin A1c 9.0. Patient denies any history of diabetes. Patient's hemoglobin A1c 7.2 on 10/09/2020. Need to optimize control of diabetes to target A1c < 7.0 * Fasting lipid panel with cholesterol 232, LDL 160, HDL 42 and triglycerides 147. Start Lipitor 40 mg daily. * On aspirin 325 mg orally daily. Patient was not taking any antiplatelet medication at home. * Pending EEG ordered by ICU team. * Continue Telemetry monitoring rule out arrhythmia. * DVT prophylaxis: Patient on Lovenox 40 mg subcu daily. * Will defer the rest of management to primary and ICU team. The plan is discussed with patient and her nurse. Erki Shepherd M.D. Neuro-Hospitalist Time with Patient: Less than 30
[2021-10-05 21:00] LABS: Glucose,Whole Blood 285 mg/dL (70-110)
[2021-10-06] MEDS: CLEVIDIPINE BUTYRATE 25 MG in EMPTY BAG 1 BAG IV SCH (00:45)
[2021-10-06 06:12] LABS: Glucose,Whole Blood 128 mg/dL (70-110)
[2021-10-06] MEDS: INSULIN DETEMIR (LEVEMIR) 100 UNIT/ML SYR SQ SCH (06:15)
[2021-10-06] MEDS: LEVOTHYROXINE 100 MCG TAB PO SCH (06:16)
[2021-10-06] MEDS: INSULIN ASPART (NovoLOG) 100 UNIT/ML VIAL SQ SCH ×4 (06:24→20:32)
--- NOTE | 2021-10-06 06:57 | P.PN ---
Subjective Progress Note Date: 10/06/21 Principal diagnosis: CVA/seizure disorder. Altered mental status and acute hypoxic respiratory failure possible seizure/CVA. This is a 71-year-old female admitted through the emergency room early this morning. Patient was admitted to the ICU because upon arrival to the ER, deisy ent had to be intubated and mechanically ventilated. Apparently the relates that the patient awakened her nuclear physician hours and she fell out of bed, and he tried to assist her to get back to bed. However the patient was noted to be quite confused, and she was attempting to draw deep breaths but could not breathe adequately. He also noted that the patient was kicking out and flailing on the bed. Patient was also noted to be very sweaty. according to , few hours earlier, the patient was just fine when they ate supper in the evening. No history of drug abuse. No history of seizures. However the patient had a similar presentation in September of 2020, patient presented back then with similar presentation, and she required intubation and mechanical ventilation. Back then, the patient had extensive workup by neurology, and we felt back then that the patient may have overdosed on her antidepressant. Workup for seizures was negative. Workup for metabolic encephalopathy was negative. Patient was eventually extubated within one day, and she was discharged home on 10/10/2020. Patient was seen by neurology back then, and her EEG was negative for seizure activity. She had basically normal neurological workup. Including MRI of the brain patient is now on mechanical ventilation, she is on assist control rate of 16 and a considerable up to 20 times volume 400 FiO2 45% PEEP of 5. ABG earlier showed a pO2 of 376 pCO2 [address] of the brain questioned subacute CVA. Reevaluated today on 10/03/21, patient remains in the ICU, intubated and mechanically ventilated. Patient is on propofol at 30 mcg/kg/h, he is fully sedated, and I have recommended that we stop the sedation in order to assess mental status today, and possibly give the patient a trial of weaning. She is on assist control rate of 20, volume 400 FiO2 45% PEEP of 5 ABG showed a pO2 of 111 pCO2 41 pH of 7.32. Chest x-ray continues to show left lower lobe atelectasis and large hiatal hernia with cardiomegaly. CBC is relatively unremarkable WBC count is 7.1 hemoglobin is 10.7. Basic metabolic profile is normal, renal profile is normal. Blood pressure is a bit elevated, will start the patient on clevidipine drip, patient remains on GI and DVT prophylaxis, and enteral feeding is yet to be started. Carotid Doppler showed no significant stenosis. CT of the head showed possible subacute stroke involving the right anterior limb of internal capsule, EEG is pending, patient was seen by neurology on consultation, still doubting seizures, however the clinical history is quite suggestive of seizure unless for otherwise Reevaluated today on 10/04/21, patient remains in the ICU, she was extubated yesterday, tolerated the extubation well. Patient is on room air, O2 saturations 94%. She is on Klonopin proximal drip for elevated blood pressure, presently at 2 mg per hour. I added amlodipine and I will likely discontinue Cleviprex drip. Patient is alert, oriented 3, she has no focal neurologic deficit, she is scheduled to have MRI and EEG on Tuesday. Labs today showed rel atively normal CBC, normal electrolytes, normal renal profile chest x-ray showed large left hiatal hernia otherwise unremarkable. No evidence of pneumonia. Progress note dated 10/05/2021. The patient is again seen today in room 265. She was admitted to the hospital on October 02, with a history of possible CVA versus seizure disorder. She was intubated on the , and subsequently extubated on October 03. Currently, she is on room air. She's getting saline at KVO, and Cleveprex at 4 mg an hour. We will bump up her dose of lisinopril today, to wean her off the Cleveprex. She is resting comfortably. She has no complaints. She apparently had a similar episode like this, about a year ago. White count hemoglobin hematocrit and platelet count all normal. Sodium 138, potassium 3.8, chlorides 109, CO2 23, BUN 11, creatinine 0.73. Calcium 8.2. Chest x-ray shows some bibasilar atelectasis. Progress note dated 10/06/2021. The patient is again seen in room 265. The patient is on Cleveprex at 1 mg an hour. The patient was admitted to the hospital on October 02 with a history of possible CVA versus seizure disorder. She was intubated on the , and subsequently extubated on October 03. Currently, she is on room air. She's getting saline at KVO. The patient is getting amlodipine at 5 mg twice a day, and Zestril 20 mg daily. I added some IV labetalol last night. Today I will ad d some Toprol-XL, 50 milligrams a day. No new laboratory data today. Brain MRI was consistent with subacute infarct. There is also age-related changes and atrophy, and chronic small vessel ischemia. The EEG was normal. Objective - Vital Signs Vital signs: Vital Signs Temp 97.8 F 10/06/21 04:00 Pulse 70 10/06/21 06:30 Resp 25 H 10/06/21 06:30 BP 165/83 10/06/21 06:30 Pulse Ox 96 10/06/21 03:00 FiO2 45 10/03/21 12:00 Intake & Output 10/05/21 10/05/21 10/06/21 06:59 18:59 06:59 Intake Total 272.333 304.000 240 Output Total 760 515 200 Balance -487.667 -211.000 40 Weight 97.3 kg 97.3 kg Intake: IV 240 220 240 NS 240 220 240 Intake, IV Titration 32.333 84.000 Amount Clevidipine Butyrate 25 32.333 84.000 mg In Empty Bag 1 bag @ 1 MG/HR 2 mls/hr IV .Q24H [facility] Rx#:[id number] Output: Urine 760 515 200 Other: Voiding Method Indwelling Catheter Indwelling Catheter Toilet # Voids 0 ABP, PAP, CO, CI - Last Documented Arterial Blood Pressure 157/97 - Exam No acute distress, oriented 3. Patient currently on room air. HEENT examination is grossly unremarkable. Neck supple. Full range of motion. No adenopathy thyromegaly or neck vein distention. Cardiovascular examination reveals regular rhythm rate. S1-S2 normal. No S3 or S4. No discernible murmur noted. Heart rate 70 bpm. Lungs reveal clear breath sounds. Breath sounds are equal bilaterally. No a dventitious lung sounds including wheezes rhonchi or crackles. Room air saturations 95%. Abdomen soft bowel sounds are heard. No masses or tenderness. Extremities are intact. No cyanosis clubbing or edema. Skin is without rash or lesion. Neurologic examination is brief but nonfocal. - Labs CBC & Chem 7: 10/05/21 05:00 10/05/21 05:00 Labs: Abnormal Lab Results - Last 24 Hours (Table) 10/05/21 10/05/21 10/05/21 Range/Units 05:00 05:00 12:05 Lymphocytes # 0.8 L (1.0-4.8) k/uL Chloride 109 H (98-107) mmol/L Glucose 158 H (74-99) mg/dL POC Glucose (mg/dL) 115 H (70-110) mg/dL Calcium 8.2 L (8.4-10.2) mg/dL 10/05/21 10/05/21 10/06/21 Range/Units 16:32 20:59 06:10 Lymphocytes # (1.0-4.8) k/uL Chloride (98-107) mmol/L Glucose (74-99) mg/dL POC Glucose (mg/dL) 171 H 285 H 128 H (70-110) mg/dL Calcium (8.4-10.2) mg/dL Microbiology - Last 24 Hours (Table) 10/02/21 05:35 Blood Culture - Preliminary Blood No Growth after 72 hours 10/02/21 05:20 Blood Culture - Preliminary Blood No Growth after 72 hours Assessment and Plan Assessment: Acute mental status changes, secondary to subacute infarct. No evidence of seizure activity on EEG. Acute hypoxemic respiratory failure, requiring intubation on October 02, and subseq uent extubation on October 03. Chronic iron deficiency anemia. History of restless leg syndrome. History of coronavirus associated pneumonia. History of hypothyroidism. History of depression. Left total knee arthroplasty. Plan: Plan dated 10/05/2021. The lisinopril will be bumped up, so that we can wean her off of Cleveprex. She does remain on amlodipine, 5 mg twice a day. We continued GI and DVT prophylaxis. The patient has an EEG, and MRI pending. Additional recommendatio ns and suggestions are forthcoming. Prognosis is guarded. The patient can be considered for possible transfer out of the intensive care unit. We will continue to follow the patient, and make recommendations where appropriate. Plan dated 10/06/2021. The patient appears to be doing relatively well. She's only on a very small dose of Cleveprex. I had some long-acting beta lopez to her regimen today. She continues on amlodipine, as well as Zestril. The patient could probably move out of the intensive care unit later today. The results of the MRI are noted. Also, I reviewed the results of the EEG. Additional recommendations and suggestions are forthcoming. Prognosis is guarded. We will continue to follow the patient and make recommendations. Time with Patient: Less than 30
--- NOTE | 2021-10-06 07:07 | XR ---
EXAMINATION TYPE: XR chest 1V portable DATE OF EXAM: 10/06/2021 COMPARISON: 10/05/2021 HISTORY: Shortness of breath TECHNIQUE: Single frontal view of the chest is obtained. FINDINGS: Large left hiatal hernia. Subsegmental consolidation. Underlying COPD suspected. Right-ciro ed PICC line or central line with the tip at the level of the right atrium. No pneumothorax. Heart is prominent. Hypertrophic and degenerative change of the spine. IMPRESSION: 1. Bibasilar atelectasis versus infiltrate is stable relative to prior exam. Large hiatal hernia note d on the left.
--- NOTE | 2021-10-06 07:48 | P.PN ---
Subjective Progress Note Date: 10/06/21 Principal diagnosis: Change in mental status This is a 71-year-old female patient with a past medical history significant for hypertension and dyslipidemia who was admitted to the hospital with change in mental status with differential diagnosis of seizure versus stroke. She un derwent a workup including an echo which revealed normal LV function was moderate to severe aortic insufficiency and carotid duplex study which showed intermediate disease bilaterally only. Subsequently the patient underwent transesophageal echocardiogram yesterday and that came in to be unremarkable and no evidence of cardiac source of embolization including atrial septal defect or patent foramen ovale. The patient was seen this morning. She is asymptomatic. She continues to be hypertensive. She was to started yesterday on metoprolol tartrate. Beside that she is on calcium channel lopez and also she is on Sah inhibitors. I'm going to stop the metoprolol and put the patient on carvedilol because is in L5 and beta lopez and is more potent blood pressure medication done were beta lopez along. Beside that I'm going to start the patient on diuretics with chlorthalidone. We will continue monitor the blood pressure and try to wean the patient from calcium channel lopez IV. Beside that she needs to be evaluated for resistant hypertension and rule out any secondary causes of elevated blood pressure-like hyperaldosteronism or renal artery stenosis. That can be done probably as an outpatient. Objective - Vital Signs Vital signs: Vital Signs Temp 97.8 F 10/06/21 04:00 Pulse 70 10/06/21 06:30 Resp 25 H 10/06/21 06:30 BP 165/83 10/06/21 06:30 Pulse Ox 96 10/06/21 03:00 FiO2 45 10/03/21 12:00 Intake & Output 10/05/21 10/06/21 10/06/21 18:59 06:59 18:59 Intake Total 304.000 240 20 Output Total 515 200 Balance -211.000 40 20 Weight 97.3 kg Intake: IV 220 240 20 NS 220 240 20 Intake, IV Titration 84.000 Amount Clevidipine Butyrate 25 84.000 mg In Empty Bag 1 bag @ 1 MG/HR 2 mls/hr IV .Q24H [facility] Rx#:[id number] Output: Urine 515 200 Other: Voiding Method Indwelling Catheter Toilet # Voids 0 1 ABP, PAP, CO, CI - Last Documented Arterial Blood Pressure 157/97 - Constitutional General appearance: Present: no acute distress - Respiratory Respiratory: bilateral: diminished - Cardiovascular Rhythm: regular Heart sounds: normal: S1, S2 - Labs CBC & Chem 7: 10/05/21 05:00 10/05/21 05:00 Labs: Abnormal Lab Results - Last 24 Hours (Table) 10/05/21 10/05/21 10/05/21 Range/Units 12:05 16:32 20:59 POC Glucose (mg/dL) 115 H 171 H 285 H (70-110) mg/dL 10/06/21 Range/Units 06:10 POC Glucose (mg/dL) 128 H (70-110) mg/dL Microbiology - Last 24 Hours (Table) 10/02/21 05:35 Blood Culture - Preliminary Blood No Growth after 72 hours 10/02/21 05:20 Blood Culture - Preliminary Blood No Growth after 72 hours Assessment and Plan Assessment: Assessment #1 change in mental status #2 possible CVA #3 possible seizure #4 hypertension #5 dyslipidemia #6 valvular heart disease Plan #1 cardiac source of embolization was ruled out by a normal transesophageal echo #2 DC metoprolol and start the patient on carvedilol #3 add diuretics using thiazide diuretics #4 consider adding aldosterone antagonist if the patient continues to be hypertensive #5 the right wean the patient from calcium channel lopez IV #6 rule out secondary hypertension giving resistant hypertension status she is in right now. She is on 3 blood pressure medications #7 follow-up with the patient
[2021-10-06] MEDS: amLODIPine 5 MG TAB PO SCH ×2 (08:56→20:33)
[2021-10-06] MEDS: ATORVASTATIN 40 MG TAB PO SCH (08:56)
[2021-10-06] MEDS: ENOXAPARIN 40 MG/0.4 ML SYRINGE SQ SCH (08:56)
[2021-10-06] MEDS: FAMOTIDINE 20 MG TAB PO SCH ×2 (08:56→20:32)
[2021-10-06] MEDS: lisinopriL 20 MG TAB PO SCH ×2 (08:56→18:21)
[2021-10-06] MEDS: CHLORTHALIDONE 25 MG TAB PO SCH (08:57)
[2021-10-06] MEDS ORDERED: METOPROLOL SUCCINATE (ER) 25 MG TAB.ER.24H PO SCH (09:00)
--- NOTE | 2021-10-06 09:43 | P.PN ---
Subjective Principal diagnosis: Anemia with altered mental status. Diabetes. A1c was 9.0. We will go ahead and start basal insulin. Otherwise patient is now back to normal lucidity per no overt pain stated. Basal insulin has been started and blood sugars now stabilizing Objective - Vital Signs Vital signs: Vital Signs Temp 97.8 F 10/06/21 08:00 Pulse 79 10/06/21 09:00 Resp 28 H 10/06/21 09:00 BP 165/94 10/06/21 09:00 Pulse Ox 85 L 10/06/21 09:00 FiO2 45 10/03/21 12:00 Intake & Output 10/05/21 10/06/21 10/06/21 18:59 06:59 18:59 Intake Total 304.000 240 60 Output Total 515 200 Balance -211.000 40 60 Weight 97.3 kg Intake: IV 220 240 60 NS 220 240 60 Intake, IV Titration 84.000 Amount Clevidipine Butyrate 25 84.000 mg In Empty Bag 1 bag @ 1 MG/HR 2 mls/hr IV .Q24H [facility] Rx#:[id number] Output: Urine 515 200 Other: Voiding Method Indwelling Catheter Toilet Toilet # Voids 0 0 ABP, PAP, CO, CI - Last Documented Arterial Blood Pressure 157/97 - Constitutional General appearance: Present: average body habitus - EENT Eyes: Absent: abnormal pupil - Neck Neck: Absent: lymphadenopathy - Respiratory Respiratory: bilateral: CTA - Cardiovascular Rhythm: regular Heart sounds: normal: S1, S2 Abnormal Heart Sounds: Absent: S3 Gallop - Gastrointestinal General gastrointestinal: Present: soft. Absent: tenderness - Integumentary Integumentary: Absent: cellulitis - Labs CBC & Chem 7: 10/05/21 05:00 10/05/21 05:00 Labs: Abnormal Lab Results - Last 24 Hours (Table) 10/05/21 10/05/21 10/05/21 Range/Units 12:05 16:32 20:59 POC Glucose (mg/dL) 115 H 171 H 285 H (70-110) mg/dL 10/06/21 Range/Units 06:10 POC Glucose (mg/dL) 128 H (70-110) mg/dL Microbiology - Last 24 Hours (Table) 10/02/21 05:35 Blood Culture - Preliminary Blood No Growth after 96 hours 10/02/21 05:20 Blood Culture - Preliminary Blood No Growth after 96 hours Assessment and Plan (1) Altered mental status Current Visit: Yes Status: Acute Code(s): R41.82 - ALTERED MENTAL STATUS, UNSPECIFIED SNOMED Code(s): 887500827 (2) Fibromyalgia Current Visit: No Status: Acute Code(s): M79.7 - FIBROMYALGIA SNOMED Code(s): 967679238 (3) Generalized weakness Current Visit: No Status: Acute Code(s): R53.1 - WEAKNESS SNOMED Code(s): 38602157 (4) Immobility Current Visit: No Status: Acute Code(s): Z74.09 - OTHER REDUCED MOBILITY SNOMED Code(s): 682997569 Plan: The patient is back to baseline cognition. Anemia. Diabetes Transesophageal echo does not show any significant embolic pathology. Diabetes is better controlled. Anticipate discharge once cleared by consultants
--- NOTE | 2021-10-06 09:46 | P.PN ---
Subjective Progress Note Date: 10/06/21 Patient is seen at bedside and feels she is doing better compared to her initial presentation. Denies of any new neurological issues. Objective - Vital Signs Vital signs: Vital Signs Temp 97.8 F 10/06/21 08:00 Pulse 79 10/06/21 09:00 Resp 28 H 10/06/21 09:00 BP 165/94 10/06/21 09:00 Pulse Ox 85 L 10/06/21 09:00 FiO2 45 10/03/21 12:00 Intake & Output 10/05/21 10/06/21 10/06/21 18:59 06:59 18:59 Intake Total 304.000 240 60 Output Total 515 200 Balance -211.000 40 60 Weight 97.3 kg Intake: IV 220 240 60 NS 220 240 60 Intake, IV Titration 84.000 Amount Clevidipine Butyrate 25 84.000 mg In Empty Bag 1 bag @ 1 MG/HR 2 mls/hr IV .Q24H NONA Rx#:[id number] Output: Urine 515 200 Other: Voiding Method Indwelling Catheter Toilet # Voids 0 0 ABP, PAP, CO, CI - Last Documented Arterial Blood Pressure 157/97 - Exam GENERAL: The patient is sitting in a recliner chair and is not in acute dis tress. NEUROLOGICAL: Higher mental function: The patient is awake, alert, oriented to self, place and time. Patient is following commands. No aphasia and no neglect. Cranial nerves: The pupils are round, equal and reactive to light and accommodation. Visual grant are full to confrontation throughout. Extraocular movement is intact no nystagmus is noted. Facial sensation is normal to touch t hroughout. The facial strength is normal throughout. Tongue is midline and moved [id number] without any difficulty. No dysarthria is noted. Shoulder shrug is normal bilaterally. Motor: The strength is 5 over 5 throughout. Normal tone and bulk. Cerebellum: Normal finger to nose bilaterally. Sensation: Sensation is normal to touch throughout. - Labs CBC & Chem 7: 10/05/21 05:00 10/05/21 05:00 Labs: Abnormal Lab Results - Last 24 Hours (Table) 10/05/21 10/05/21 10/05/21 Range/Units 12:05 16:32 20:59 POC Glucose (mg/dL) 115 H 171 H 285 H (70-110) mg/dL 10/06/21 Range/Units 06:10 POC Glucose (mg/dL) 128 H (70-110) mg/dL Microbiology - Last 24 Hours (Table) 10/02/21 05:35 Blood Culture - Preliminary Blood No Growth after 96 hours 10/02/21 05:20 Blood Culture - Preliminary Blood No Growth after 96 hours Assessment and Plan Assessment: * Subacute stroke involving right garces radiata. Likely due to small vessel disease due to patient risk factors (DM, hypertension, sex, age). * Altered mental status, possible metabolic encephalopathy. Patient had similar presentation of altered mental status, and flailing of extremities in the past. Patient had multiple EEGs performed, that was negative for seizures.---mentation improved * Acute respiratory failure, on mechanical ventilation. Status post extubation. * Diabetes, uncontrolled (new onset) * Hyperlipidemia * Hypertension * Cervical spondylosis * Restless leg syndrome * Hypothyroidism * History of left knee replacement. Plan: * MRI brain is reported as subacute infarct involving the garces radiata on the right. Sinus disease. Age-related changes of atrophy and chronic small vessel ischemia. I personally reviewed the MRI agree with the report. * Carotid Doppler revealed less than 50% stenosis of bilateral ICA. Antegrade flow in both vertebral arteries. * Patient's CTA of head and neck performed a year ago was negative for any stenosis. * On aspirin 325 mg orally daily (was not taking any antiplatelet medication at home). I decrease her aspirin from 325 daily to 81 and added Plavix 75mg da rayshawn in addition. Patient to be on dual antiplatelets for 21 days and after 21 days stop Plavix but continue aspirin 81 indefinitely. * 2-D echo with bubble study revealed normal left ventricular systolic function, moderate to severe aortic regurgitation and mild MR. * VETO is reported as no no intracardiac thrombus. Normal left ventricle function. No evidence of shunting across the internal atrial septum. Left atrium appears mildly enlarged. * Patient's hemoglobin A1c 9.0. Patient denies any history of diabetes. Patient's hemoglobin A1c 7.2 on 10/09/2020. Need to optimize control of diabetes to target A1c < 7.0 * Fasting lipid panel with cholesterol 232, LDL 160, HDL 42 and triglycerides 147. Continue Lipitor 40 mg daily. * Routine EEG: Normal. I recommended if there is any further concerns of for seizures recommend an ambulatory EEG as an outpatient. * Continue Telemetry monitoring rule out arrhythmia. * DVT prophylaxis: Patient on Lovenox 40 mg subcu daily. * Will defer the rest of management to primary and ICU team. * Upon discharge, patient to follow-up with a neurologist within 1-2 weeks. The plan is discussed with patient and her nurse. No additional work-up needed from neurological perspective and is clear for discharge. Erik Shepherd M.D. Neuro-Hospitalist Time with Patient: Less than 30
[2021-10-06 11:33] LABS: Glucose,Whole Blood 148 mg/dL (70-110)
[2021-10-06] MEDS: CLOPIDOGREL 75 MG TAB PO SCH (12:28)
[2021-10-06] MEDS: carvediloL 6.25 MG TAB PO SCH (12:33)
[2021-10-06] MEDS: LABETALOL 5 MG/ML VIAL MDV IVP PRN ×2 (14:11→23:43)
[2021-10-06 16:29] LABS: Glucose,Whole Blood 194 mg/dL (70-110)
[2021-10-06 20:31] LABS: Glucose,Whole Blood 154 mg/dL (70-110)
[2021-10-06] MEDS ORDERED: LORazepam 0.5 MG TAB PO PRN (21:43)
[2021-10-07] MEDS: CLEVIDIPINE BUTYRATE 25 MG in EMPTY BAG 1 BAG IV SCH (00:38)
[2021-10-07 05:16] VITALS: TEMP 97.5
[2021-10-07] MEDS: LEVOTHYROXINE 100 MCG TAB PO SCH (05:56)
[2021-10-07] MEDS: INSULIN ASPART (NovoLOG) 100 UNIT/ML VIAL SQ SCH (06:49)
[2021-10-07 06:51] LABS: Glucose,Whole Blood 98 mg/dL (70-110)
[2021-10-07] MEDS: carvediloL 6.25 MG TAB PO SCH (06:53)
[2021-10-07] MEDS: INSULIN DETEMIR (LEVEMIR) 100 UNIT/ML SYR SQ SCH (06:54)
[2021-10-07 07:02] VITALS: PULSE 71; RESP 16
--- NOTE | 2021-10-07 08:27 | P.DS ---
Providers Date of admission: 10/02/21 07:40 Attending physician: Cody Aleman Consults: 10/02/21 07:40 Consult Physician Urgent Consulting Provider: Jatin Kim Consult Reason/Comments: Intubated patient Do you want consulting provider notified?: Already Contacted 10/02/21 07:48 Consult Physician Routine Consulting Provider: Stacey Kerr Consult Reason/Comments: Altered mental status Do you want consulting provider notified?: Yes 10/04/21 01:46 Consult Physician Routine Consulting Provider: Naveed Guerrero Consult Reason/Comments: VETO as per recommendations from ECHO report Do you want consulting provider notified?: Yes, Notify in am Primary care physician: Cody Aleman - Discharge Diagnosis(es) (1) Altered mental status Current Visit: Yes Status: Acute (2) Fibromyalgia Current Visit: No Status: Acute (3) Generalized weakness Current Visit: No Status: Acute (4) Immobility Current Visit: No Status: Acute Hospital Course: This is a 71-year-old white female essentially meant for altered mental status. Ended up having significant workup. No focus of infection was noted neurology consultation was also instituted. She had significant hypertensive urgency during this hospitalization. She was transferred ICU because she was intubated. Asked patient was done appropriate workup was done and she is back to her baseline. She has element of chronic anemia and she's been placed on appropriate TIA and hypertension treatment. The patient is now stable and will follow-up with me in about 5 days. She also has an underlying history of diabetes and we will discharge home on appropriate Lantus Patient Condition at Discharge: Serious Plan - Discharge Summary Discharge Rx Participant: Yes New Discharge Prescriptions: New amLODIPine [Norvasc] 5 mg PO BID #60 tab Clopidogrel [Plavix] 75 mg PO DAILY #30 tab Aspirin 81 mg PO DAILY tab carvediloL [Coreg] 6.25 mg PO AC-BID #60 tablet Atorvastatin [Lipitor] 40 mg PO DAILY #30 tab lisinopriL [Zestril] 20 mg PO BID #60 tab Continue rOPINIRole HCL [Requip] 1 mg PO TID Levothyroxine Sodium 200 mcg PO DAILY Amitriptyline HCl [Elavil] 50 mg PO HS Cyclobenzaprine HCl 10 mg PO TID 10 Days #30 tab Sertraline [Zoloft] 150 mg PO DAILY Discontinued lisinopriL [Zestril] 10 mg PO DAILY Discharge Medication List Amitriptyline HCl [Elavil] 50 mg PO HS 03/10/20 [History] Levothyroxine Sodium 200 mcg PO DAILY 03/10/20 [History] rOPINIRole HCL [Requip] 1 mg PO TID 03/10/20 [History] Cyclobenzaprine HCl 10 mg PO TID 10 Days #30 tab 01/28/21 [Rx] Sertraline [Zoloft] 150 mg PO DAILY 10/02/21 [History] Aspirin 81 mg PO DAILY tab 10/07/21 [Rx] Atorvastatin [Lipitor] 40 mg PO DAILY #30 tab 10/07/21 [Rx] Clopidogrel [Plavix] 75 mg PO DAILY #30 tab 10/07/21 [Rx] amLODIPine [Norvasc] 5 mg PO BID #60 tab 10/07/21 [Rx] carvediloL [Coreg] 6.25 mg PO AC-BID #60 tablet 10/07/21 [Rx] lisinopriL [Zestril] 20 mg PO BID #60 tab 10/07/21 [Rx] Follow up Appointment(s)/Referral(s): Cody Aleman MD [Primary Care Provider] - 1-2 days
[2021-10-07] MEDS: ATORVASTATIN 40 MG TAB PO SCH (08:43)
[2021-10-07] MEDS: amLODIPine 5 MG TAB PO SCH (08:43)
[2021-10-07] MEDS: CLOPIDOGREL 75 MG TAB PO SCH (08:43)
[2021-10-07] MEDS: FAMOTIDINE 20 MG TAB PO SCH (08:43)
[2021-10-07] MEDS: lisinopriL 20 MG TAB PO SCH (08:44)
[2021-10-07] MEDS: ENOXAPARIN 40 MG/0.4 ML SYRINGE SQ SCH (08:44)
[2021-10-07] MEDS: CHLORTHALIDONE 25 MG TAB PO SCH (08:50)
[2021-10-07] MEDS ORDERED: ASPIRIN 81 MG PO SCH (09:00)
[2021-10-07 09:24] VITALS: BP 147/128
--- NOTE | 2021-10-07 12:17 | PN ---
PROGRESS NOTE DATE OF SERVICE: October 07, 2021. The patient is again seen in room 265. The patient has been off IV blood medications for about 24 hours. She is doing relatively well. She was admitted to the hospital on October 02 with a history of cerebrovascular accident. CVA was confirmed on brain MRI. The patient may be discharged home today. The patient is on Coreg, Zestril, and amlodipine. She is not receiving any IV fluids, and she is on room air. PHYSICAL EXAMINATION: Vital signs: Vital signs are reviewed. Heart rate 88. Respiratory rate 18. Blood pressure 107/52. Saturations 97% on room air. Temperature is normal. Appears in no acute process. HEENT examination is grossly unremarkable. Neck: Supple. Full range of motion. No adenopathy, thyromegaly or neck vein distention. Cardiovascular: Examination reveals regular rhythm and rate. S1, S2 normal. No S3, S4, or murmur. Heart rate 77 beats per minute. Lungs: Clear. Breath sounds equal. No wheezes, rhonchi, or crackles. Room air saturation between 97 and 98%. Abdomen: Soft. Bowel sounds are noted. No masses or tenderness. Extremities are intact. No cyanosis, clubbing, or edema. Skin: Without rash. Neurologic: Neurologic examination is nonfocal. Labs, x-rays and medications are reviewed. ASSESSMENT: 1. Acute mental status changes, secondary to subacute infarct, much improved. No evidence of seizure activity on EEG. 2. Acute hypoxemic respiratory failure, requiring intubation on October 02, and subsequent extubation on October 03, 2021. 3. Chronic iron deficiency anemia. 4. History of restless leg syndrome. 5. History of garces virus associated pneumonia. 6. History of hypothyroidism. 7. History of depression. 8. History of left total knee arthroplasty. PLAN: The patient is doing well. The results of the MRI were shared with the patient. Labs, x-rays and medications are all reviewed. Prognosis is guarded. The patient can be discharged home today. No additional recommendations are made. MMODL / IJN: [id number] /
--- NOTE | 2021-10-07 16:04 | P.PN ---
Subjective Progress Note Date: 10/07/21 Principal diagnosis: Change in mental status This is a 71-year-old female patient with a past medical history significant for hypertension and dyslipidemia who was admitted to the hospital with change in mental status with differential diagnosis of seizure versus stroke. She un derwent a workup including an echo which revealed normal LV function was moderate to severe aortic insufficiency and carotid duplex study which showed intermediate disease bilaterally only. Subsequently the patient underwent transesophageal echocardiogram yesterday and that came in to be unremarkable and no evidence of cardiac source of embolization including atrial septal defect or patent foramen ovale. The patient was seen this morning. She is asymptomatic pH is hemodynamically stable. From a cardiovascular standpoint of view, the patient can be discharged home. Objective - Vital Signs Vital signs: Vital Signs Temp 97.5 F L 10/07/21 04:00 Pulse 71 10/07/21 07:00 Resp 16 10/07/21 07:00 BP 147/128 10/07/21 09:00 Pulse Ox 98 10/07/21 07:00 FiO2 45 10/03/21 12:00 Intake & Output 10/06/21 10/07/21 10/07/21 18:59 06:59 18:59 Intake Total 78.367 150 50 Balance 78.367 150 50 Weight 92.9 kg 92.6 kg Intake: IV 60 NS 60 Intake, IV Titration 18.367 0 Amount Clevidipine Butyrate 25 18.367 0 mg In Empty Bag 1 bag @ 1 MG/HR 2 mls/hr IV .Q24H NONA Rx#:[id number] Oral 150 50 Other: Voiding Method Toilet Toilet Toilet # Voids 0 1 ABP, PAP, CO, CI - Last Documented Arterial Blood Pressure 157/97 - Constitutional General appearance: Present: no acute distress - Respiratory Respiratory: bilateral: diminished - Cardiovascular Rhythm: regular - Labs CBC & Chem 7: 10/05/21 05:00 10/05/21 05:00 Labs: Abnormal Lab Results - Last 24 Hours (Table) 10/06/21 10/06/21 Range/Units 16:27 20:29 POC Glucose (mg/dL) 194 H 154 H (70-110) mg/dL Microbiology - Last 24 Hours (Table) 10/02/21 05:35 Blood Culture - Preliminary Blood No Growth after 120 hours 10/02/21 05:20 Blood Culture - Preliminary Blood No Growth after 120 hours Assessment and Plan Assessment: Assessment #1 change in mental status #2 possible CVA #3 possible seizure #4 hypertension #5 dyslipidemia #6 valvular heart disease Plan #1 continue the current medical regimen #2 the patient can be discharged home
--- NOTE | 2021-10-17 00:19 | CDI ---
Documentation Clarification Form Date: 10/16/2021 From: LETTY Davidson Admit Date: 10/02/2021 07:40:00 AM Patient Name: Denis Jalloh Visit Number: [id number] Discharge Date: 10/07/2021 09:25:00 AM ATTENTION: The Clinical Documentation Specialists (CDI) and [facility] Coding Staff appreciate your assistance in clarifying documentation. Please respond to the clarification below the line at the bottom and electronically sign. The CDI & [facility] Coding staff will review the response and follow-up if needed. Please note: Queries are made part of the Legal Health Record. If you have any questions, please contact the author of this message via ITS. Dr. Cody Aleman Conflicting documentation has been found in the medical record. As attending physician, please provide clarification. Consult 10/02, Progress notes 10/03-10/05 states: Principal diagnosis Workup for metabolic encephalopathy was negative. Consult 10/02, Progress notes 10/03-10/06 states: Possibility of encephalopathy and toxic may be related to tricyclic antidepressants Assessment: * Altered mental status, possible metabolic encephalopathy. Also could be due to metabolic encephalopathy. Clinical Indicators: The patient fallen out of bed and her tried to assist her back she was significantly confused and was flailing.She is also very diaphoretic and this was an acute change as they re cently went to dinner and she was at her normal baseline mentality. The patient was so agitated that EMS was called and she was given some Versed. Please clarify which diagnosis is most appropriate: [ ] metabolic encephalopathy ruled in [ x ] metabolic encephalopathy ruled out [ ] Other (please specify) [ ] Unable to determine MTDD
== END 2021-10-07 09:25 | disposition home or self-care (01) | DRG 64 ==
LOC: EC 04:08 → 2SICU 07:40
PROVIDERS: ADMIT Family Medicine; ATTEND Family Medicine
PROC: 0BH17EZ Insertion of Endotracheal Airway into Trachea, Via Natural or Artificial Opening (ICD-10-PCS; principal; 2021-10-02)
PROC: 5A1945Z Respiratory Ventilation, 24-96 Consecutive Hours (ICD-10-PCS; 2021-10-02)
DX: I63.89 Other cerebral infarction (principal); J96.01 Acute respiratory failure with hypoxia; N17.9 Acute kidney failure, unspecified; D50.9 Iron deficiency anemia, unspecified; E03.9 Hypothyroidism, unspecified; E66.9 Obesity, unspecified; E78.5 Hyperlipidemia, unspecified; Z68.33 Body mass index [BMI] 33.0-33.9, adult; E86.0 Dehydration; G25.81 Restless legs syndrome; G40.909 Epilepsy, unspecified, not intractable, without status epilepticus; I10 Essential (primary) hypertension; I16.0 Hypertensive urgency; I44.0 Atrioventricular block, first degree; K44.9 Diaphragmatic hernia without obstruction or gangrene; Z96.652 Presence of left artificial knee joint; R41.82 Altered mental status, unspecified; M79.7 Fibromyalgia; I08.0 Rheumatic disorders of both mitral and aortic valves; M47.812 Spondylosis without myelopathy or radiculopathy, cervical region; W06.XXXA Fall from bed, initial encounter; Z74.09 Other reduced mobility; Z79.4 Long term (current) use of insulin; Z79.82 Long term (current) use of aspirin; Z79.890 Hormone replacement therapy; Z79.899 Other long term (current) drug therapy; Z86.16 Personal history of COVID-19; Z87.891 Personal history of nicotine dependence; Z90.710 Acquired absence of both cervix and uterus; Z79.02 Long term (current) use of antithrombotics/antiplatelets; Z87.01 Personal history of pneumonia (recurrent)
CPT/HCPCS: 36415; 36600; 70450; 70551; 71045; 71275; 80048; 80053; 80061; 80306; 81003; 82009; 82803; 82805; 83036; 83605; 83880; 84484; 85025; 85379; 85610; 85730; 87040; 87070; 87205; 93005; 93306; 93312; 93320; 93325; 93880; 94002; 94003; 95816; 96365; 96374; 99291

== ENCOUNTER 2022-05-25 23:55 | Emergency (ER) | payer MEDICARE ==
[2022-05-25] MEDS ORDERED: SODIUM CHLORIDE 0.9% 1,000 ML IV STA ×2 (23:57)
[2022-05-25] MEDS ORDERED: ONDANSETRON 4 MG/2 ML VIAL IVP STA (23:57)
[2022-05-25] MEDS ORDERED: MORPHINE SULFATE 4 MG/ML SYRINGE IV STA (23:57)
[2022-05-26] VITALS: BP 142/89; PULSE 82; RESP 14; TEMP 97.6
[2022-05-26 00:08] LABS: Glucose,Whole Blood 253 mg/dL (70-110)
[2022-05-26 00:33] LABS: Basophils # (A) 0.1 k/uL (0-0.2); Basophils % (A) 1 %; Eosinophils # (A) 0.6 k/uL (0-0.7); Eosinophils % (A) 5 %; HCT 35.3 % (34.0-46.0); Lymphocytes % (A) 7 %; MCH 29.5 pg (25.0-35.0); MCV 86.7 fL (80.0-100.0); Mean Platelet Volume 8.4; Monocytes # (A) 0.7 k/uL (0-1.0); Monocytes % (A) 5 %; Neutrophils # (A) 11.3 k/uL (1.3-7.7); Neutrophils % (A) 82 %; Platelet Count 272 k/uL (150-450); RBC 4.06 m/uL (3.80-5.40); RDW 14.1 % (11.5-15.5); WBC 13.8 k/uL (3.8-10.6)
--- NOTE | 2022-05-26 00:37 | ED ---
Fall HPI - General Chief Complaint: Fall Stated Complaint: Fall from chair Time Seen by Provider: 05/25/22 23:57 Source: patient, EMS, RN notes reviewed, old records reviewed Mode of arrival: EMS Limitations: no limitations - History of Present Illness Initial Comments: This is a 71-year-old female poor historian coming in for fall from standing, lower extremity both lower extremities are deformed, left open fracture right significant deformity. Patient is denying drugs or alcohol abuse. No other injury noted MD Complaint: fall -: hour(s) Fall From: standing When Fall Occurred: 1 hour ENGINEERING MGR Fall Witnessed: yes, by family Place Fall Occurred: home Loss of Consciousness: none Prolonged Down Time?: no Symptoms Prior to Fall: none Location - Extremities: Left: Leg, Ankle, Right: Leg, Ankle Severity: severe Severity scale (1-10): 10 Quality: burning Context: tripped/slipped Associated Symptoms: denies - Related Data Home Medications Medication Instructions Recorded Confirmed Amitriptyline HCl [Elavil] 50 mg PO HS 03/10/20 05/07/22 Levothyroxine Sodium 200 mcg PO DAILY 03/10/20 05/07/22 rOPINIRole HCL [Requip] 1 mg PO TID 03/10/20 05/07/22 Sertraline [Zoloft] 150 mg PO DAILY 10/02/21 05/07/22 Previous Rx's Medication Instructions Recorded Cyclobenzaprine HCl 10 mg PO TID 10 Days #30 tab 01/28/21 Aspirin 81 mg PO DAILY tab 10/07/21 Atorvastatin [Lipitor] 40 mg PO DAILY #30 tab 10/07/21 Chlorthalidone [Hygroton] 25 mg PO DAILY #30 tab 10/07/21 Clopidogrel [Plavix] 75 mg PO DAILY #30 tab 10/07/21 Famotidine [Pepcid] 20 mg PO BID #60 tab 10/07/21 Insulin Detemir (Levemir) [Levemir] 10 unit SQ DAILY@0700 #2 pen 10/07/21 Pen Needle, Diabetic [Ultra-Fine 1 needle SQ AC-BRKFST #100 each 10/07/21 Pen Needle 5mm 31G (BD)] amLODIPine [Norvasc] 5 mg PO BID #60 tab 10/07/21 carvediloL [Coreg] 6.25 mg PO AC-BID #60 tablet 10/07/21 lisinopriL [Zestril] 20 mg PO BID #60 tab 10/07/21 rOPINIRole HCL [Requip] 1 mg PO TID 7 Days #21 tab 12/06/21 Allergies Allergy/AdvReac Type Severity Reaction Status Date / Time meperidine HCl [From Demerol] Allergy Rash/Hives Verified 05/07/22 08:47 Penicillins Allergy Rash/Hives Verified 05/07/22 08:47 Sulfa (Sulfonamide Allergy Rash/Hives Verified 05/07/22 08:47 Antibiotics) Review of Systems ROS Statement: Those systems with pertinent positive or pertinent negative responses have been documented in the HPI. ROS Other: All systems not noted in ROS Statement are negative. Past Medical History Past Medical History: Diabetes Mellitus, Hypertension, Thyroid Disorder Additional Past Medical History / Comment(s): chronic ANEMIA- pt gets iron t rans. covid, RLS, peripheral neuropathy. History of Any Multi-Drug Resistant Organisms: VRE Date of last positivie culture/infection: 04/12/20 VRE MDRO Source:: Urine Past Surgical History: Hysterectomy, Joint Replacement, Orthopedic Surgery Additional Past Surgical History / Comment(s): LEFT KNEE ARTHROSCOPIC, carpal tunnel, left knee replacement, laser eye surgery Past Anesthesia/Blood Transfusion Reactions: No Reported Reaction Past Psychological History: No Psychological Hx Reported Smoking Status: Never smoker - Past Family History Mother Family Medical History: No Reported History General Exam - General Exam Comments Initial Comments: GCS 15 Bilateral lower extremity deformity (Left open Fracture Limitations: physical limitation General appearance: alert, in no apparent distress Head exam: Present: atraumatic, normocephalic, normal inspection Eye exam: Present: normal appearance, PERRL, EOMI. Absent: scleral icterus, conjunctival injection, periorbital swelling ENT exam: Present: normal exam, mucous membranes moist Neck exam: Present: normal inspection. Absent: tenderness, meningismus, lymphadenopathy Respiratory exam: Present: normal lung sounds bilaterally. Absent: respiratory distress, wheezes, rales, rhonchi, stridor Cardiovascular Exam: Present: regular rate, normal rhythm, normal heart sounds. Absent: systolic murmur, diastolic murmur, rubs, gallop, clicks GI/Abdominal exam: Present: soft, normal bowel sounds. Absent: distended, tenderness, guarding, rebound, rigid Extremities exam: Present: normal inspection, full ROM, normal capillary refill. Absent: tenderness, pedal edema, joint swelling, calf tenderness Back exam: Present: normal inspection Neurological exam: Present: alert, oriented X3, CN II-XII intact Psychiatric exam: Present: normal affect, normal mood Skin exam: Present: warm, dry, intact, normal color. Absent: rash Course Vital Signs 05/25/22 23:56 Temperature 97.6 F Pulse Rate 82 Respiratory 14 Rate Blood Pressure 142/89 O2 Sat by Pulse 96 Oximetry - Reevaluation(s) Reevaluation #1: 05/26/22 00:41 Medical records reviewed Reevaluation #2: 05/26/22 00:41 patient's pain is controlled Reevaluation #3: 05/26/22 00:41 Patient informed results questions are answered Reevaluation #4: 05/26/22 00:42 Was pt. sent in by a medical professional or institution? @ -[by , PA, LIVESTOCK RANCHER, urgent care, hospital, or assisted] Did you speak to anyone other than the patient for history? @ -[EMS, parent, family, police, friend?] Did you review nursing and triage notes? @ -[agree or disagree, why?] Were old charts reviewed? @ -[outside hosp., previous admissions, EMS record, old EKG, old radiological studies, urgent care reports/EKGs, assisted records?] Differential Diagnosis? @ -[chest pain, altered mental status abdominal pain women, abdominal pain men, vaginal bleeding, weakness, fever, dyspnea, syncope, headache, dizziness, GI bleed, back pain, seizure] EKG interpreted by me (3pts min.)? @ -[none] X-rays interpreted by me (1pt min.)? @ -[none] CT interpreted by me (1pt min.)? @ -[none] U/S interpreted by me (1pt. min.)? @ -[none] What testing was considered but not performed? (CT, X-rays, U/S, labs)? Why? @ [CT, X-rays, U/S, labs? Why?] What meds were considered but not given? Why? @ -[none] Did you discuss the management of the patient with other professionals? @ -[professionals i.e. , PA, LIVESTOCK RANCHER, Lab, RT, Psych Nurse, Dance Historian, Venetian Blind Maker, Teacher, Meat Butcher, top case assembler? Give summary] Did you reconcile home meds? @ -[none] Was smoking cessation discussed for >3mins.? @ -[none] Was critical care preformed (if so, how long)? @ -[none] Were there social determinants of health that impacted care today? How? (Homelessness, low income, unemployed, alcoholism, drug addiction, transportation, low edu. Level, literacy, decrease access to med. care, fpc, rehab)? @ -[Homelessness, low income, unemployed, alcoholism, drug addiction, trans portation, low edu. Level, literacy, decrease access to med. care, fpc, rehab?] Was there de-escalation of care discussed even if they declined? (Discuss DNR or withdrawal of care, Hospice)? @ -[Discuss DNR or withdrawal of care, Hospice?] What co-morbidities impacted this encounter? (DM, HTN, Smoking, COPD, CAD, Cancer, CVA, Hep., AIDS, mental health diagnosis, sleep apnea, morbid obesity)? @ -[DM, HTN, Smoking, COPD, CAD, Cancer, CVA, Hep., AIDS, mental health diagnosis, sleep apnea, morbid obesity?] Was patient admitted / discharged? @ -[hospital course] Undiagnosed new problem with uncertain prognosis? @ -[none] Drug Therapy requiring intensive monitoring for toxicity (Heparin, Nitro, Insulin, Cardizem)? @ -[none] Were any procedures done? @ -[none] Diagnosis/symptom? @ -[default] Acute, or Chronic, or Acute on Chronic? @ -[default] Uncomplicated (without systemic symptoms) or Complicated (systemic symptoms)? @ -[default] Side effects of treatment? @ -[none] Exacerbation, Progression, or Severe Exacerbation] @ -[no] Poses a threat to life or bodily function? @ -[no] Medical Decision Making - Lab Data Result diagrams: 05/26/22 00:08 Lab Results 05/26/22 05/26/22 05/26/22 Range/Units 00:07 00:08 00:20 WBC 13.8 H (3.8-10.6) k/uL RBC 4.06 (3.80-5.40) m/uL Hgb 12.0 (11.4-16.0) gm/dL Hct 35.3 (34.0-46.0) % MCV 86.7 (80.0-100.0) fL MCH 29.5 (25.0-35.0) pg MCHC 34.0 (31.0-37.0) g/dL RDW 14.1 (11.5-15.5) % Plt Count 272 (150-450) k/uL MPV 8.4 Neutrophils % 82 % Lymphocytes % 7 % Monocytes % 5 % Eosinophils % 5 % Basophils % 1 % Neutrophils # 11.3 H (1.3-7.7) k/uL Lymphocytes # 1.0 (1.0-4.8) k/uL Monocytes # 0.7 (0-1.0) k/uL Eosinophils # 0.6 (0-0.7) k/uL Basophils # 0.1 (0-0.2) k/uL POC Glucose (mg/dL) 253 H (70-110) mg/dL POC Glu Newspaper Correspondent ID John Rust Plasma Lactic Acid [place] 1.3 (0.7-2.0) mmol/L - EKG Data -: EKG Interpreted by Me (EKG is sinus 77. 101 QRS 173 QTC 504) Disposition Clinical Impression: Fall, Generalized weakness, Open left ankle fracture, Closed right ankle fracture Disposition: OTHER INSTITUTION NOT DEFINED Condition: Serious Is patient prescribed a controlled substance at d/c from ED?: No Referrals: Cody Aleman MD [Primary Care Provider] - 1-2 days Time of Disposition: 01:15
[2022-05-26 00:42] LABS: Albumin 3.9 g/dL (3.5-5.0); Calcium 8.6 mg/dL (8.4-10.2); Magnesium 2.1 mg/dL (1.6-2.3); Partial Thromboplastin Time 23.1 sec (22.0-30.0); Phosphorus 5.3 mg/dL (2.5-4.5); Potassium 4.8 mmol/L (3.5-5.1); Prothrombin Time 10.4 sec (9.0-12.0); Total Bilirubin 0.7 mg/dL (0.2-1.3); Total Protein 6.5 g/dL (6.3-8.2)
--- NOTE | 2022-05-26 01:07 | XR ---
Bilateral tibia and fibula Limited exam. History trauma. Pain. 2 views of the left tibia and fibula were obtained. A single frontal view of the right tibia and fibu la was obtained. There is fracture at the right ankle with dislocation but not well evaluated due to the positioning. The left tibia and fibula show comminuted fracture of the proximal and distal shaft. There is also ob lique fracture distal shaft of the tibia. There is lateral displacement of the distal tibial fragment . There is knee prosthesis. Views are limited. IMPRESSION: Limited exam shows bilateral fractures and also dislocation of the right ankle. There is some soft ti ssue deformity and likely open fracture of the left tibia fracture.
--- NOTE | 2022-05-26 01:10 | XR ---
EXAMINATION TYPE: XR tibia fibula bilateral DATE OF EXAM: 05/26/2022 COMPARISON: Today HISTORY: Post reduction TECHNIQUE: 7 views FINDINGS: Images of the left tibia and fibula show comminuted fractures of the proximal and distal sh aft of the fibula with a percent offset on the distal fracture. There is a transverse fracture distal shaft of the left tibia with high percent lateral displacement of the distal fragment. There is left knee prosthesis. Left ankle mortise is anatomic. Images of the right tibia and fibula show a lateral trimalleolar fracture dislocation of the ankle mara int. There is approximate 3.5 cm lateral displacement of the talus. There is transverse fracture of t he medial malleolus with lateral displacement. There is oblique fracture distal fibula with displacem ent. There is a likely large chip fracture of the posterior malleolus. IMPRESSION: There is a lateral fracture dislocation of the right ankle. There is comminuted fracture left fibula as above and also transverse fracture distal shaft of the le ft tibia with 100% offset. It is difficult to determine if there is an improvement compared to initial exam.
--- NOTE | 2022-05-26 01:11 | XR ---
EXAMINATION TYPE: XR pelvis AP view DATE OF EXAM: 05/26/2022 COMPARISON: NONE HISTORY: Fall. Pain TECHNIQUE: Single view FINDINGS: There is retained fecal material in the rectum. Pelvic ring is intact. The proximal femurs and hip joints are intact. Sacroiliac joints are intact. IMPRESSION: No acute abnormality of the pelvis. No fracture.
--- NOTE | 2022-05-26 01:12 | XR ---
EXAMINATION TYPE: XR chest 1V portable DATE OF EXAM: 05/26/2022 COMPARISON: 10/06/2021 HISTORY: Fall. Chest pain TECHNIQUE: FINDINGS: Heart is slightly enlarged. No heart failure. There is some coarsening of interstitial holly ings. There are chest leads. No pleural effusion. Bony thorax is intact. IMPRESSION: Mild pulmonary fibrosis. No heart failure. No significant change compared to the old exam .
== END 2022-05-26 01:50 | disposition other institution (70) ==
LOC: EC 23:55
DX: S82.892A Other fracture of left lower leg, initial encounter for closed fracture (principal); S82.892B Other fracture of left lower leg, initial encounter for open fracture type I or II; R53.1 Weakness; E11.40 Type 2 diabetes mellitus with diabetic neuropathy, unspecified; I10 Essential (primary) hypertension; E07.9 Disorder of thyroid, unspecified; Z79.890 Hormone replacement therapy; Z79.899 Other long term (current) drug therapy; Z88.0 Allergy status to penicillin; Z88.2 Allergy status to sulfonamides; Z88.8 Allergy status to other drugs, medicaments and biological substances; W07.XXXA Fall from chair, initial encounter; Y92.009 Unspecified place in unspecified non-institutional (private) residence as the place of occurrence of the external cause
CPT/HCPCS: 99285; 96365; 96375; 96361; 36415; 93005; 83880; 80053; 83605; 83735; 84100; 84484; 85025; 85610; 85730; 73590; 72170; 71045; J2270; J0696